=== PATIENT | male | born 1975 | race Hispanic/Latino ===

== ENCOUNTER 2021-10-04 20:35 | Emergency (ER) | payer SELFPAY ==
--- OUTSIDE RECORDS SUMMARY | 2021-10-04 20:37 | XMS REPORT | Continuity of Care Document ---
:1975 Author Organization [facility] t Address [address] [place] [address] Care Team Providers Name Role Phone Unavailable Unavailable Unavailable Payers Payer Name Policy Type Policy Number Effective Date Expiration Date S ource Problems This patient has no known problems. Allergies, Adverse Reactions, Alerts Allergy Allergy Status Severity Reaction(s) Onset Inactive Treating Comm ents Source Name Type Date Date Clinician No Known DA Active U 2018-08 [facility] All[facility]ie 0-17 [facility] 00:00: [facility] 00 are [facility] Medications This patient has no known medications. Procedures This patient has no known procedures. Results Test Description Test Time Test Comments Results Result Comments Source - XR CHEST 1 V 2019-05-23 Patient Name: 08:28:00 ALEX BURROUGHS Unit No: [id number] EXAMS: CPT: [id number] XR CHEST 1 V 16598 History: Chest pain CHEST 1 VIEW FINDINGS: The lung volumes are somewhat low. Mild subsegmental atelectasis is present in both lung bases. The heart size is magnified by the AP technique. The pulmonary vasculature is within normal limits. No pneumothorax or pleural effusion is present. No gross osseous abnormality is identified. IMPRESSION: 1. Mild bilateral lower lobe subsegmental atelectasis. at 0828 Reported and signed by: John Paul Jha MD CC: Sky Grant MD Technologist: Thuy Buckley Time: DAP (Gy m2): Air Kerma (mGy): Trscr Dt/Tm: 05/23/2019 (0828) by:[email or web address] Orig Print D/T: S: 05/23/2019 (0831) BATCH NO: N/A Name: ALEX BURROUGHS [facility] ED Phys: Sky Starks MD [address] : 1975 Age: 44 Sex: [place] [address] Loc: N.ERS Exam Date: 05/23/2019 Status: REG ER PH: FAX: PAGE 1 Signed Report TROPONIN-I 2019-05-23 07:18:00 Test Item Value Reference Range Interpretation Comme nts TROPONIN-I (test code = TROPI) <0.020 ng/mL 0.000-0.034 N BASIC METABOLIC [id number] 07:14:00 Test Item Value Reference Range Interpretation Comments SODIUM (test code 137 mmol/L 135-145 N = NA) POTASSIUM (test 3.9 mmol/L 3.6-5.0 N code = K) CHLORIDE (test 104 mmol/L 101-111 N code = CL) CARBON DIOXIDE 26 mmol/L 21-31 N (test code = CO2) GLUCOSE (test code 115 mg/dl 70-100 H = GLU) BLOOD UREA 9 mg/dl 6-20 N NITROGEN (test code = BUN) GLOMERULAR >=60 max >60 The estimated FILTRATION RATE estimate glomerular (test code = GFR) filtration rate is computed usingpatient ra ce, age (>18), sex, and serum creatinin e. If anyof the neede d data elements a re missing the Laboratory yareli ot compute an estimation of t he glomerular filtration rate . CREATININE (test 0.91 mg/dL 0.64-1.27 N code = CREAT) CALCIUM (test code 8.8 mg/dL 8.5-10.5 N = CA) CBC W/AUTO [id number] 07:10:00 Test Item Value Reference Range Interpretation Comments WHITE BLOOD CELL (test code = 6.7 x10 3/uL 3.2-11.5 N WBC) RED BLOOD CELL (test code = 4.97 x10(6)/m 4.20-5.70 N RBC) HEMOGLOBIN (test code = HGB) 14.6 g/dL 12.9-17.3 N HEMATOCRIT (test code = HCT) 43.8 % 38.7-51.0 N MEAN CELL VOLUME (test code = 88 fL 80-100 N MCV) MEAN CELL HGB (test code = MCH) 29.5 pg 26.7-33.3 N MEAN CELL HGB CONCENTRATION 33.5 g/dL 30.0-34.0 N (test code = MCHC) RED CELL DISTRIBUTION WIDTH 13.8 % 11.3-14.5 N (test code = RDW) PLATELET COUNT (test code = 221 x10 3/uL 130-408 N PLT) MEAN PLATELET VOLUME (test code 8.7 fl 6.4-10.5 N = MPV) NEUTROPHIL % (test code = NT%) 49.8 % 40.0-70.0 N LYMPHOCYTE % (test code = LY%) 30.7 % 20-40 N MONOCYTE % (test code = MO%) 10.8 % 1-10 H EOSINOPHIL % (test code = EO%) 7.1 % 1.0-5.0 H BASOPHIL % (test code = BA%) 1.6 % 0.0-1.0 H NEUTROPHIL # (test code = NT#) 3.4 x10 3/uL 1.6-7.2 N LYMPHOCYTE # (test code = LY#) 2.10 x10 3/uL 1.1-2.7 N MONOCYTE # (test code = MO#) 0.7 x10 3/uL 0.3-0.8 N EOSINOPHIL # (test code = EO#) 0.5 x10 3/uL 0.0-0.5 N BASOPHIL # (test code = BA#) 0.1 x10 3/uL 0.0-0.1 N
[2021-10-04] MEDS ORDERED: MORPHINE 4 MG/ML SYR ONE (21:25)
[2021-10-04] MEDS ORDERED: ONDANSETRON 4 MG/2 ML VIAL ONE (21:25)
[2021-10-04 21:31] LABS: Absolute Lymphocytes (CBC) 2.3 K/uL (0.7-4.9); Hematocrit 30.2 % (39.6-49.0); Lymphocytes % 22.8 % (15.3-44.8); MPV 7.6 fL (7.6-11.3); RBC Red Blood Cell Count 4.18 M/uL (4.33-5.43)
[2021-10-04 21:45] LABS: ALT/SGPT 17 U/L (12-78); AST/SGOT 15 U/L (15-37); Albumin 2.8 g/dL (3.4-5.0); Alkaline Phosphatase 83 U/L (45-117); BUN Blood Urea Nitrogen 11 mg/dL (7-18); Bicarbonate 25 mmol/L (21-32); Bilirubin Total 0.2 mg/dL (0.2-1.0); Glucose Level 93 mg/dL (74-106); Lipase 517 U/L (73-393); Potassium 3.3 mmol/L (3.5-5.1); Protein, Total 7.3 g/dL (6.4-8.2); Sodium Level 140 mmol/L (136-145)
[2021-10-04 21:46] LABS: Bilirubin Direct < 0.1 mg/dL (0-0.2)
[2021-10-04] MEDS ORDERED: METRONIDAZOLE 500mg IVPB 500 MG/100 ML BAG IV ONE (23:53)
[2021-10-04] MEDS ORDERED: METHYLPREDNISOLONE 125 MG INJ ONE (23:53)
[2021-10-04] MEDS ORDERED: CIPROFLOXACIN HCL 500 MG TAB ONE (23:53)
--- NOTE | 2021-10-05 00:44 | ER ---
Nurse's Notes [facility] Name: Wicho Weeks Age: 46 yrs Sex: Male : 1975 Arrival Date: 10/04/2021 Time: 20:39 Bed 15 Private MD: Diagnosis: Colitis Presentation: 10/04 21:00 Chief complaint: Patient states: States, he had surgery on butt abcess 2 months ago and tk1 has pain to stomach this week with bloody stools. Coronavirus screen: Vaccine status: Patient reports being unvaccinated. Client denies travel out of the [place] in the last 14 days. At this time, the client does not indicate any symptoms associated with coronavirus-19. Ebola Screen: Patient negative for fever greater than or equal to 101.5 degrees Fahrenheit, and additional compatible Ebola Virus Disease symptoms Patient denies exposure to infectious person. Patient denies travel to an Ebola-affected area in the 21 days before illness onset. Initial Sepsis Screen: Does the patient meet any 2 criteria? No. Patient's initial sepsis screen is negative. Does the patient have a suspected source of infection? No. Patient's initial sepsis screen is negative. Risk Assessment: Do you want to hurt yourself or someone else? Patient reports no desire to harm self or others. Onset of symptoms was September 27, 2021. 21:00 Method Of Arrival: Ambulatory tk1 21:00 Acuity: DRE 3 tk1 Triage Assessment: 21:28 General: Appears comfortable, obese, well groomed, well developed, well nourished, tk1 Behavior is cooperative, appropriate for age, anxious. Pain: Complains of pain in abdomen Pain does not radiate. Pain currently is 10 out of 10 on a pain scale. Quality of pain is described as crampy, Pain began gradually, Is continuous. GI: Abdomen is non-distended, Reports lower abdominal pain, bloody stool. Historical: - Allergies: 21: No Known Allergies; tk1 - Home Meds: 21:28 mesalamine 400 mg oral TbEC 2 tabs 3 times per day [Active]; tk1 - Immunization history:: Adult Immunizations up to date. - Social history:: Smoking status: Patient denies any tobacco usage or history of. Screenin/01 00:10 Abuse screen: Denies threats or abuse. Nutritional screening: No deficits noted. sf1 Tuberculosis screening: No symptoms or risk factors identified. Fall Risk None identified. Assessment: 00:10 GI: Reports lower abdominal pain, bloody stool. sf1 Vital Signs: 10/04 21:00 BP 145 / 94 LA Supine (auto/reg); Pulse 86 MON; Resp 18 S; Temp 99.3(O); Pulse Ox 98% tk1 on R/A; Weight 98.88 kg (R); Height 5 ft. 9 in. (175.26 cm) (R); Pain 10; 10/05 01:02 BP 136 / 84; Pulse 80; Resp 18; Pulse Ox 98% on R/A; sf1 10/04 21:00 Body Mass Index 32.19 (98.88 kg, 175.26 cm) tk1 ED Course: 10/04 20:39 Patient arrived in ED. ag3 20:53 Marvel Garcia NP is PHCP. pm1 20:53 Damien Garvey MD is Attending Physician. pm1 21:17 Inserted saline lock: 20 gauge in right antecubital area, using aseptic technique. vc1 Blood collected. 21:18 Basic Metabolic Panel Sent. vc1 21:19 CBC with Diff Sent. vc1 21:19 Hepatic Function Sent. vc1 21:19 Lipase Sent. vc1 21:26 Triage completed. tk1 21:28 Arm band placed on left wrist. tk1 22:19 CT Abd/Pelvis - IV Contrast Only In Process Unspecified. EDMS 23:47 Charmaine Hunt, RN is Primary Nurse. sf1 10/05 00:09 Inserted saline lock: 20 gauge in left antecubital area, using aseptic technique. IV sf1 discontinued, iv infiltrated, provider aware. 01:02 No provider procedures requiring assistance completed. IV discontinued, intact, sf1 bleeding controlled, No redness/swelling at site. Pressure dressing applied. Administered Medications: 10/04 21:26 Drug: morphine 4 mg Route: IVP; Site: right antecubital; vc1 21:26 Drug: Zofran (Ondansetron) 4 mg Route: IVP; Site: right antecubital; vc1 10/05 00:10 Drug: SOLU-Medrol (methylPrednisoLONE) 125 mg Route: IVP; Site: right antecubital; sf1 00:10 Drug: Flagyl (metroNIDAZOLE) 500 mg Volume: 100 ml; Route: IVPB; Rate: 200 ml/hr; sf1 Infused Over: 30 mins; Site: left antecubital; 00:10 Drug: Cipro (ciprofloxacin) 500 mg Route: PO; sf1 Outcome: 00:43 Discharge ordered by pm1 01:03 Patient left the ED. sf1 Signatures: Dispatcher [employer] EDMS Marvel Garcia, GRAPHICS PRODUCTION SPECIALIST GRAPHICS PRODUCTION SPECIALIST pm1 Angela Otero ag3 Elise Acosta tk1 Joselin Meier RN RN vc1 Charmaine Hunt RN RN sf1
--- NOTE | 2021-10-05 00:44 | EDPHYS ---
Physician Documentation [facility] Name: Wicho Weeks Age: 46 yrs Sex: Male : 1975 Arrival Date: 10/04/2021 Time: 20:39 Bed 15 Private MD: ED Physician Damien Garvey HPI: 10/04 21:59 This 46 yrs old Male presents to ER via Ambulatory with complaints of Post Surgical pm1 Bleeding, Bloody Stools, Abdominal Pain, Dizziness. 21:59 The patient presents with abdominal pain right lower quadrant. pm1 21:59 Onset: The symptoms/episode began/occurred 1 week. Associated signs and symptoms: pm1 Pertinent negatives: nausea, vomiting, and diarrhea, fever. The symptoms are described as crampy. Modifying factors: The symptoms are alleviated by bowel movement. Severity of pain: in the emergency department the pain is actually worse. The patient has been recently seen by a physician: the patient's primary care provider, Dr. Last, removed the patient's wound vacuum to left buttocks about 5 days ago. Patient reports buttocks abscess surgery about 4 months ago with 2 subsequent surgeries. First two surgeries with drains present and the last surgery with wound vacuum. Surgery was performed in [place]. Patient seen recently by Dr. Last who removed his wound vacuum about 5 days ago. Patient presenting today because he reports right lower quadrant pain that is relieved with bowel movement, bloody mucoid stool, and bleeding from his left buttocks where the incision and drainage was performed. Historical: - Allergies: 21:28 No Known Allergies; tk1 - Home Meds: 21:28 mesalamine 400 mg oral TbEC 2 tabs 3 times per day [Active]; tk1 - Immunization history:: Adult Immunizations up to date. - Social history:: Smoking status: Patient denies any tobacco usage or history of. ROS: 21:59 Constitutional: Negative for fever, chills, and weight loss, Cardiovascular: Negative pm1 for chest pain, palpitations, and edema, Respiratory: Negative for shortness of breath, cough, wheezing, and pleuritic chest pain. 21:59 Back: Negative for injury and pain, MS/Extremity: Negative for injury and deformity, Skin: Negative for injury, rash, and discoloration, Neuro: Negative for headache, weakness, numbness, tingling, and seizure. 21:59 Abdomen/GI: Positive for abdominal pain, of the right lower quadrant, Negative for nausea, vomiting, and diarrhea, constipation. 21:59 All other systems are negative. Exam: 21:59 Constitutional: This is a well developed, well nourished patient who is awake, alert, pm1 and in no acute distress. Head/Face: Normocephalic, atraumatic. 21:59 Back: No spinal tenderness. No costovertebral tenderness. Full range of motion. MS/ Extremity: Pulses equal, no cyanosis. Neurovascular intact. Full, normal range of motion. 21:59 Eyes: Exam is negative for acute changes, Extraocular movements: no acute changes, Conjunctiva: no acute changes, no injection. 21:59 Cardiovascular: Rate: normal, Rhythm: regular, Pulses: no pulse deficits are appreciated. 21:59 Respiratory: Exam negative for acute changes, respiratory distress, shortness of breath. 21:59 Abdomen/GI: Inspection: abdomen appears normal, Palpation: soft, in all quadrants, mild abdominal tenderness, in the right lower quadrant. 21:59 Skin: Appearance: left buttock - incision and drainage surgical site, without any drainage or bleeding. No fluctuance or cellulitis present. 21:59 Neuro: Exam negative for acute changes, Orientation: is normal, Mentation: is normal, Motor: is normal, moves all fours. Vital Signs: 21:00 BP 145 / 94 LA Supine (auto/reg); Pulse 86 MON; Resp 18 S; Temp 99.3(O); Pulse Ox 98% tk1 on R/A; Weight 98.88 kg (R); Height 5 ft. 9 in. (175.26 cm) (R); Pain 10/10; 03 01:02 BP 136 / 84; Pulse 80; Resp 18; Pulse Ox 98% on R/A; sf1 10/04 21:00 Body Mass Index 32.19 (98.88 kg, 175.26 cm) tk1 MDM: 10/04 21:01 Patient medically screened. pm1 21:59 Data interpreted: Pulse oximetry: on room air is 98 %. Interpretation: normal. pm1 03 00:42 Data reviewed: vital signs. pm1 00:43 Counseling: I had a detailed discussion with the patient and/or guardian regarding: the pm1 historical points, exam findings, and any diagnostic results supporting the discharge/admit diagnosis, lab results, radiology results, the need for outpatient follow up, a education reviewer, to return to the emergency department if symptoms worsen or persist or if there are any questions or concerns that arise at home. 10/04 21:08 Order name: Basic Metabolic Panel pm1 10/04 21:08 Order name: CBC with Diff; Complete Time: 21:59 pm1 10/04 21:08 Order name: CT Abd/Pelvis - IV Contrast Only pm1 10/04 21:08 Order name: Hepatic Function; Complete Time: 21:59 pm1 10/04 21:08 Order name: Lipase; Complete Time: 21:59 pm1 10/04 21:08 Order name: Basic Metabolic Panel; Complete Time: 21:59 EDMS 10/04 21:08 Order name: IV Saline Lock; Complete Time: 21:19 pm1 10/04 21:08 Order name: Labs collected and sent; Complete Time: 21:19 pm1 Administered Medications: 10/04 21:26 Drug: morphine 4 mg Route: IVP; Site: right antecubital; vc1 21:26 Drug: Zofran (Ondansetron) 4 mg Route: IVP; Site: right antecubital; vc1 10/05 00:10 Drug: SOLU-Medrol (methylPrednisoLONE) 125 mg Route: IVP; Site: right antecubital; sf1 00:10 Drug: Flagyl (metroNIDAZOLE) 500 mg Volume: 100 ml; Route: IVPB; Rate: 200 ml/hr; sf1 Infused Over: 30 mins; Site: left antecubital; 00:10 Drug: Cipro (ciprofloxacin) 500 mg Route: PO; sf1 Disposition: 01:20 Co-signature as Attending Physician, Damien Garvey MD I agree with the assessment and rn plan of care. Attestation: The patient's history, exam findings, diagnostics, and a summary of any interventions or procedures was reviewed in detail with Marvel Garcia NP. Disposition Summary: 10/05/21 00:43 Discharge Ordered Location: Home pm1 Problem: new pm1 Symptoms: have improved pm1 Condition: Stable pm1 Diagnosis - Colitis pm1 Followup: pm1 - With: Emergency Department - When: As needed - Reason: Worsening of condition Followup: pm1 - With: Private Physician - When: 2 - 3 days - Reason: Recheck today's complaints, Continuance of care, Re-evaluation by your physician Discharge Instructions: - Discharge Summary Sheet pm1 - Colitis pm1 Forms: - Medication Reconciliation Form pm1 - Thank You Letter pm1 - Antibiotic Education pm1 - Prescription Opioid Use pm1 Prescriptions: - Flagyl 500 mg Oral Tablet - take 1 tablet by ORAL route every 8 hours for 10 days; 30 tablet; Refills: 0, pm1 Product Selection Permitted - Prednisone 20 mg Oral Tablet - take 3 tablets by ORAL route once daily for 5 days; 15 tablet; Refills: 0, pm1 Product Selection Permitted - Cipro 500 mg Oral Tablet - take 1 tablet by ORAL route every 12 hours for 7 days; 14 tablet; Refills: 0, pm1 Product Selection Permitted - dicyclomine 20 mg Oral tablet - take 1 tablet by ORAL route every 6 hours As needed; 20 tablet; Refills: 0, pm1 Product Selection Permitted Signatures: Dispatcher [employer] Damien Godoy MD MD rn Marinas, Patrick, NP DOUGH MIXER pm1 Elise Acosta tk1 Joselin Meier RN RN vc1 Charmaine Hunt RN RN sf1
[2021-10-05 02:14] VITALS: TEMP 99.3; O2SAT 98
[2021-10-05 02:15] VITALS: BP 136/84
--- NOTE | 2021-10-05 14:46 | RAD REPORT ---
EXAM DESCRIPTION: CT - Abdomen Pelvis W Contrast - 10/05/2021 6:28 am CLINICAL HISTORY: 46 years, Male, ABD PAIN COMPARISON: None. TECHNIQUE: Contrast-enhanced images of the abdomen and pelvis were performed utilizing 5 mm slice th ickness at 5 mm interval reconstruction from the lung bases to the ischial tuberosities after the adm inistration IV contrast. In addition multiplanar reformats in the coronal and sagittal plane were obtained and reviewed. This exam was performed according to our departmental dose-optimization protocol, which includes auto mated exposure control, adjustment of the mA and/or kV according to patient size and/or use of iterat jaime reconstruction technique. FINDINGS: The lung bases demonstrate to be clear. The liver, gallbladder, pancreas, spleen and adrenal glands demonstrate to be unremarkable, no focal lesions are noted. The kidneys demonstrate normal uptake of contrast media. No evidence for nephrolithiasis and/or hydro nephrosis. Grossly the unopacified stomach and small bowel bowel demonstrate to be within normal limits. There is no evidence for bowel dilatation/or free air. The appendix is normal. There is questionable muc osal thickening of the left site colon/sigmoid colon on axial image 32/105-71/105 perhaps the possibi lity of the minimal bacterial colitis could be of consideration. The urinary bladder demonstrate to be unremarkable. The prostate gland is normal. The aorta demon strate to be normal. There is no retroperitoneal lymphadenopathy. There is no evidence for ascites/ or abnormal fluid collections. The rest of the soft tissue and bony structures are within normal limi ts. IMPRESSION: Questionable mucosal thickening of the left site colon/sigmoid colon perhaps the possibi lity of the minimal bacterial colitis could be of consideration. Electronically signed by: Rob Adrian MD 10/04/2021 10:40 PM [facility] Due to temporary technical issues with the PACS/Fluency reporting system, reports are being signed by the in house radiologists without review as a courtesy to insure prompt reporting. The interpreting radiologist is fully responsible for the content of the report.
== END 2021-10-05 01:03 | disposition home or self-care (01) ==
LOC: ER 20:35
DX: K52.9 Noninfective gastroenteritis and colitis, unspecified (principal)
CPT/HCPCS: 36415; 74177; 80048; 80076; 83690; 85025; 99284; J2405; J2930; Q9967

== ENCOUNTER 2022-02-22 11:53 | Emergency (ER) | payer SELFPAY ==
[2022-02-22] MEDS ORDERED: ACETAMINOPHEN 325 MG TABLET ONE (13:05)
[2022-02-22] MEDS ORDERED: MORPHINE 4 MG/ML SYR ONE (13:06)
[2022-02-22] MEDS ORDERED: NA CHLORIDE 0.9% 1,000 ML ONE (13:06)
[2022-02-22] MEDS ORDERED: ONDANSETRON 4 MG/2 ML VIAL ONE ×2 (13:06→15:55)
[2022-02-22] MEDS ORDERED: FAMOTIDINE 20 MG/2 ML VIAL IV ONE (13:06)
[2022-02-22 13:30] LABS: Absolute Lymphocytes (CBC) 1.5 K/uL (0.7-4.9); Hematocrit 32.5 % (39.6-49.0); Lymphocytes % 19.3 % (15.3-44.8); MCV 72.8 fL (80-100); MPV 8.6 fL (7.6-11.3); RBC Red Blood Cell Count 4.46 M/uL (4.33-5.43)
[2022-02-22 13:43] LABS: Albumin 2.5 g/dL (3.4-5.0); Bilirubin Total 0.5 mg/dL (0.2-1.0); Potassium 3.3 mmol/L (3.5-5.1); Protein, Total 6.8 g/dL (6.4-8.2)
[2022-02-22 13:45] LABS: Anisocytosis 3+; Blood Morphology Comment NOTED (NOT SEEN); Platelet Estimate ADEQ; White Blood Cell Scan OK (OK)
--- NOTE | 2022-02-22 14:16 | RAD REPORT ---
EXAM DESCRIPTION: CTAbdomen Pelvis W Contrast - 02/22/2022 1:57 pm CLINICAL HISTORY: abdominal pain, hematochezia COMPARISON: <Comparisons> TECHNIQUE: CT of the abdomen and pelvis was performed with IV contrast. All CT scans are performed using dose optimization technique as appropriate and may include automated exposure control or mA/KV adjustment according to patient size. FINDINGS: Lower chest: No acute abnormality. Liver: Subcentimeter low-density lesion right hepatic lobe is likely benign. Biliary: No biliary ductal dilatation. Stomach: No significant focal abnormality. Duodenum: No significant focal abnormality. Pancreas: No significant abnormality. Spleen: No significant abnormality. Adrenal: No suspicious lesions. Kidney/ureter: No hydronephrosis. No renal calculi. Retroperitoneum: No retroperitoneal adenopathy. Vascular: No aneurysm. Bowel: Moderate diffusely thickened: . No bowel obstruction is identified. Normal appendix. Peritoneum: No ascites or free air. Reactive lymph nodes in the mesocolon. Bladder: Grossly unremarkable. Reproductive: No adnexal masses. Bones: No acute fracture. Other: n/a IMPRESSION: Pancolitis with differential to include infections and inflammatory etiologies. No bowel obstruction or abscess.
[2022-02-22 14:31] LABS: Urine Blood Negative (Negative); Urine Glucose Negative (Negative); Urine Protein 1+ (Negative); Urine Specific Gravity 1.025 (1.005-1.030); Urine pH 5.5 (5.0-7.0)
[2022-02-22] MEDS ORDERED: CEFTRIAXONE 1000 MG/VIAL ONE (15:44)
[2022-02-22] MEDS ORDERED: HYDROMORPHONE HCL 1 MG/ML INJ ONE (15:54)
[2022-02-22] MEDS ORDERED: METHYLPREDNISOLONE 125 MG INJ ONE (16:18)
[2022-02-22] MEDS ORDERED: CIPROFLOXACIN 400mg IV 400 MG/200 ML BAG IV ONE (16:19)
[2022-02-22] MEDS ORDERED: METRONIDAZOLE 500mg IVPB 500 MG/100 ML BAG IV ONE (16:19)
[2022-02-22 16:23] LABS: Protime INR 1.43
--- NOTE | 2022-02-22 18:12 | EDPHYS ---
Physician Documentation [facility] Name: Wicho Weeks Age: 46 yrs Sex: Male : 1975 Arrival Date: 02/22/2022 Time: 11:55 Bed 14 Private MD: ED Physician Rony Begum HPI: 02/22 12:39 This 46 yrs old Male presents to ER via Wheelchair with complaints of Bloody jmm Stools, Near Syncope, Abdominal Pain. 12:39 The patient presents to the emergency department with nausea, diarrhea, abdominal pain. jmm Onset: The symptoms/episode began/occurred gradually. Possible causes: flare up of bowel problem, ulcerative colitis. The symptoms are aggravated by nothing. The symptoms are alleviated by nothing. This is a 46 year old male with a history of colitis that complains of blood diarrhea beginning approx 1 week ago. Patient states symptoms began 2 days after finishing a course of abx. Patient was recently hospitalized with a flare. Patient also complains of weakness. . Historical: - Allergies: 12:40 No Known Allergies; hb - Home Meds: 12:40 mesalamine 400 mg Oral TbEC 2 tabs 3 times per day [Active]; hb - PMHx: 12:40 colitis; hb - Immunization history:: Client reports having NOT received the Covid vaccine. - Social history:: Smoking status: Patient denies any tobacco usage or history of. ROS: 12:39 Constitutional: Negative for fever, chills, and weight loss, Cardiovascular: Negative jmm for chest pain, palpitations, and edema, Respiratory: Negative for shortness of breath, cough, wheezing, and pleuritic chest pain. 12:39 Abdomen/GI: Positive for abdominal pain, diarrhea, rectal bleeding. 12:39 All other systems are negative. Exam: 12:39 Constitutional: This is a well developed, well nourished patient who is awake, alert, jmm and in no acute distress. Head/Face: atraumatic. Eyes: EOMI, no conjunctival erythema appreciated ENT: Moist Mucus Membranes Neck: Trachea midline, Supple Chest/axilla: Normal chest wall appearance and motion. Cardiovascular: Regular rate and rhythm. No edema appreciated Respiratory: Normal respirations, no respiratory distress appreciated 12:39 Back: Normal ROM Skin: General appearance color normal MS/ Extremity: Moves all extremities, no obvious deformities appreciated, no edema noted to the lower extremities Neuro: Awake and alert Psych: Behavior is normal, Mood is normal, Patient is cooperative and pleasant 12:39 Abdomen/GI: Inspection: abdomen appears normal, Bowel sounds: normal, Palpation: soft, mild abdominal tenderness, in all quadrants. Vital Signs: 12:37 BP 123 / 89; Pulse 97; Resp 18; Temp 102(O); Pulse Ox 100% on R/A; Weight 90.72 kg (M); hb Height 5 ft. 9 in. (175.26 cm); Pain 10/10; 13:12 BP 148 / 95; Pulse 87; Resp 18; Pulse Ox 96% on R/A; Pain 7/10; ld1 13:36 BP 121 / 73; Pulse 76; Resp 18; Pulse Ox 100% on R/A; ld1 14:32 BP 121 / 69; Pulse 75; Resp 21; Pulse Ox 99% on R/A; ld1 15:34 BP 126 / 72; Pulse 71; Resp 20; Pulse Ox 99% on R/A; ld1 16:14 BP 116 / 69; Pulse 77; Resp 18; Pulse Ox 99% on R/A; ld1 17:41 BP 111 / 67; Pulse 81; Resp 18; Pulse Ox 94% on R/A; ld1 12:37 Body Mass Index 29.54 (90.72 kg, 175.26 cm) hb MDM: 12:39 Patient medically screened. [facility] 18:10 Data reviewed: vital signs, nurses notes. Counseling: I had a detailed discussion with [facility] the patient and/or guardian regarding: the historical points, exam findings, and any diagnostic results supporting the discharge/admit diagnosis, the need to transfer to another facility, [facility] does not immediately have the required specialist. Refusal of service: The patient/guardian displays adequate decision making capability and despite a detailed discussion of alternatives, benefits, risks, and consequences refuses: Admission to the hospital for further work-up and treatment. 02/22 12:40 Order name: CBC with Diff; Complete Time: 13:46 [facility] 02/22 12:40 Order name: CMP; Complete Time: 13:43 [facility] 02/22 12:40 Order name: Lipase; Complete Time: 13:43 [facility] 02/22 12:41 Order name: SARS-COV-2 RT PCR (Document "Date of Onset" if Symptomatic); Complete Time: [facility] 14:43 02/22 12:41 Order name: Influenza Screen (a \\T\\ B); Complete Time: 13:30 [facility] 02/22 12:42 Order name: Type And Screen; Complete Time: 15:22 [facility] 02/22 13:45 Order name: CBC Smear Scan; Complete Time: 13:46 [facility] 02/22 14:32 Order name: Urine Dipstick-Ancillary; Complete Time: 14:32 [facility] 02/22 14:52 Order name: ABO/RH no charge; Complete Time: 14:55 [facility] 02/22 15:27 Order name: Blood Culture Adult (2) [facility] 02/22 15:27 Order name: Lactate; Complete Time: 16:36 [facility] 02/22 15:27 Order name: Protime (+inr); Complete Time: 16:25 [facility] 02/22 15:27 Order name: Ptt, Activated; Complete Time: 16:25 [facility] 02/22 16:14 Order name: Glucose, Ancillary Testing; Complete Time: 16:15 [facility] 02/22 12:40 Order name: IV Saline Lock; Complete Time: 13:11 [facility] 02/22 12:40 Order name: Labs collected and sent; Complete Time: 13:11 [facility] 02/22 12:40 Order name: CT Abd/Pelvis - IV Contrast Only; Complete Time: 14:19 [facility] 02/22 16:16 Order name: Glucose, Ancillary Testing [facility] 02/22 16:47 Order name: Glucose, Ancillary Testing; Complete Time: 17:00 [facility] 02/22 12:41 Order name: Urine Dipstick-Ancillary (obtain specimen); Complete Time: 14:31 [facility] 02/22 15:27 Order name: Accucheck; Complete Time: 16:07 [facility] 02/22 15:27 Order name: Cardiac monitoring; Complete Time: 15:33 [facility] 02/22 15:27 Order name: EKG - Nurse/Tech; Complete Time: 16:36 [facility] 02/22 15:27 Order name: IV Saline Lock - Large Bore; Complete Time: 15:33 [facility] 02/22 15:27 Order name: O2 Per Protocol; Complete Time: 15:33 [facility] 02/22 15:27 Order name: O2 Sat Monitoring; Complete Time: 15:33 [facility] Administered Medications: 13:11 Drug: NS 0.9% 1000 ml Route: IV; Rate: 1 bolus; Site: right antecubital; ld1 13:11 Drug: Pepcid (famotidine) 20 mg Route: IVP; Site: right antecubital; ld1 13:11 Drug: Zofran (Ondansetron) 4 mg Route: IVP; Site: right antecubital; ld1 13:11 Drug: morphine 4 mg Route: IVP; Infused Over: 4 mins; Site: right antecubital; ld1 13:11 Drug: Acetaminophen 650 mg Route: PO; ld1 15:57 Drug: Rocephin (cefTRIAXone) 1 grams Route: IV; Rate: calculated rate; Site: right ld1 antecubital; 16:08 Follow up: Response: No adverse reaction eh3 15:57 Drug: Dilaudid (HYDROmorphone) 1 mg Route: IVP; Site: right antecubital; ld1 16:08 Follow up: Response: No adverse reaction; Marked relief of symptoms eh3 15:57 Drug: Zofran (Ondansetron) 4 mg Route: IVP; Site: right antecubital; ld1 16:08 Follow up: Response: No adverse reaction eh3 16:15 Drug: SOLU-Medrol (methylPrednisoLONE) 125 mg Route: IVP; Site: right antecubital; eh3 18:43 Follow up: Response: No adverse reaction eh3 16:30 Drug: Ciprofloxacin 400 mg Volume: 200 ml; Route: IVPB; Infused Over: 60 mins; Site: eh3 right antecubital; 18:43 Follow up: Response: No adverse reaction eh3 16:30 Drug: Flagyl (metroNIDAZOLE) 500 mg Volume: 100 ml; Route: IVPB; Rate: 200 ml/hr; eh3 Infused Over: 30 mins; Site: right antecubital; 18:42 Follow up: Response: No adverse reaction eh3 Disposition: 22:41 Co-signature as Attending Physician, Rony KIRKLAND was immediately available on-site ms3 in the Emergency Department for consultation in the care of the patient.. Disposition Summary: 02/22/22 18:11 Discharge Ordered Location: Home [facility] Condition: Stable jmm Diagnosis - Colitis jmm Followup: jmm - With: Thang Herrmann MD - When: 1 - 2 days - Reason: Recheck today's complaints, Continuance of care, Re-evaluation by your physician Discharge Instructions: - Discharge Summary Sheet [facility] - Ulcerative Colitis, Adult [facility] Forms: - Medication Reconciliation Form [facility] - Thank You Letter [facility] - Antibiotic Education [facility] - Prescription Opioid Use [facility] Prescriptions: - Flagyl 500 mg Oral Tablet - take 1 tablet by ORAL route every 6 hours for 10 days; 40 tablet; Refills: 0, [facility] Product Selection Permitted - Cipro 500 mg Oral Tablet - take 1 tablet by ORAL route every 12 hours for 7 days; 14 tablet; Refills: 0, [facility] Product Selection Permitted - Prednisone 20 mg Oral Tablet - take 3 tablets by ORAL route once daily for 5 days Please take 3 tabs by mouth [facility] daily for 3 days, then take 2 tabs by mouth daily for 3 days, then take 1 tab by mouth daily for 3 days, then take one half tab by mouth daily for 3 days; 20 tablet; Refills: 0, Product Selection Permitted Signatures: Dispatcher [employer] EDJhony Villalta PA PA m Lo Ferguson, RN RN Rony Frazier DO DO ms3 Irma Welch RN RN ld1 Kalina Cardoso 3
--- NOTE | 2022-02-22 18:12 | ER ---
Nurse's Notes [facility] Name: Wicho Weeks Age: 46 yrs Sex: Male : 1975 Arrival Date: 02/22/2022 Time: 11:55 Bed 14 Private MD: Diagnosis: Colitis Presentation: 02/22 12:37 Chief complaint: Bright red blood in stool and upper abdominal pain x 1 week. Hx of hb colitis and blood transfusions. Coronavirus screen: At this time, the client does not indicate any symptoms associated with coronavirus-19. Ebola Screen: No symptoms or risks identified at this time. Risk Assessment: Do you want to hurt yourself or someone else? Patient reports no desire to harm self or others. Onset of symptoms was February 15, 2022. 12:37 Method Of Arrival: Wheelchair hb 12:37 Acuity: DRE 2 hb 18:22 Initial Sepsis Screen: Does the patient meet any 2 criteria? Temp <36.0*C (96.8*F)) or eh3 > 38.3*C (100.9*F). HR > 90 bpm. Yes Does the patient have a suspected source of infection? No. Patient's initial sepsis screen is negative. Triage Assessment: 18:22 General: Appears in no apparent distress. uncomfortable, Behavior is calm, cooperative, eh3 appropriate for age. Historical: - Allergies: 12:40 No Known Allergies; hb - Home Meds: 12:40 mesalamine 400 mg Oral TbEC 2 tabs 3 times per day [Active]; hb - PMHx: 12:40 colitis; hb - Immunization history:: Client reports having NOT received the Covid vaccine. - Social history:: Smoking status: Patient denies any tobacco usage or history of. Screenin:12 Abuse screen: Denies threats or abuse. Denies injuries from another. Nutritional ld1 screening: No deficits noted. Tuberculosis screening: No symptoms or risk factors identified. Fall Risk None identified. Assessment: 13:12 General: Appears in no apparent distress. comfortable, Behavior is calm, cooperative, ld1 appropriate for age. Pain: Complains of pain in abdomen Pain does not radiate. Pain currently is 7 out of 10 on a pain scale. Quality of pain is described as sharp, shooting, throbbing, Pain began 1 day ago. Is continuous. Neuro: Level of Consciousness is awake, alert, obeys commands, Oriented to person, place, time, situation. Cardiovascular: Capillary refill < 3 seconds Patient's skin is warm and dry. Rhythm is sinus rhythm. Respiratory: Airway is patent Respiratory effort is even, unlabored. GI: Abdomen is round non-distended, Reports lower abdominal pain, upper abdominal pain, nausea. : No signs and/or symptoms were reported regarding the genitourinary system. EENT: No signs and/or symptoms were reported regarding the EENT system. Derm: No signs and/or symptoms reported regarding the dermatologic system. Musculoskeletal: No signs and/or symptoms reported regarding the musculoskeletal system. 14:33 Reassessment: Patient appears in no apparent distress at this time. Patient is alert, ld1 oriented x 3, equal unlabored respirations, skin warm/dry/pink. Patient states symptoms have improved. Vital Signs: 12:37 BP 123 / 89; Pulse 97; Resp 18; Temp 102(O); Pulse Ox 100% on R/A; Weight 90.72 kg (M); hb Height 5 ft. 9 in. (175.26 cm); Pain 10/10; 13:12 BP 148 / 95; Pulse 87; Resp 18; Pulse Ox 96% on R/A; Pain 7/10; ld1 13:36 BP 121 / 73; Pulse 76; Resp 18; Pulse Ox 100% on R/A; ld1 14:32 BP 121 / 69; Pulse 75; Resp 21; Pulse Ox 99% on R/A; ld1 15:34 BP 126 / 72; Pulse 71; Resp 20; Pulse Ox 99% on R/A; ld1 16:14 BP 116 / 69; Pulse 77; Resp 18; Pulse Ox 99% on R/A; ld1 17:41 BP 111 / 67; Pulse 81; Resp 18; Pulse Ox 94% on R/A; ld1 12:37 Body Mass Index 29.54 (90.72 kg, 175.26 cm) ED Course: 11:55 Patient arrived in ED. mr 11:57 Jhony Marquez PA is PHCP. m 11:57 Rony Begum DO is Attending Physician. jmm 12:40 Triage completed. hb 12:40 Arm band placed on. hb 12:56 Irma Welch, RN is Primary Nurse. ld1 12:56 SARS-COV-2 RT PCR (Document "Date of Onset" if Symptomatic) Sent. ld1 13:11 Influenza Screen (a \\T\\ B) Sent. ld1 13:12 Patient has correct armband on for positive identification. Placed in gown. Bed in low ld1 position. Call light in reach. Side rails up X2. engine monitor on. Pulse ox on. NIBP on. Door closed. Noise minimized. Warm blanket given. 13:12 No provider procedures requiring assistance completed. ld1 13:18 Inserted saline lock: 20 gauge in right antecubital area, using aseptic technique. zm Blood collected. 13:59 CT Abd/Pelvis - IV Contrast Only In Process Unspecified. EDMS 14:31 Type And Screen Sent. ld1 15:57 Blood Culture Adult (2) Sent. ld1 15:57 Lactate Sent. ld1 16:07 Protime (+inr) Sent. eh3 16:07 Ptt, Activated Sent. eh3 16:35 Glucose, Ancillary Testing Sent. eh3 18:11 Thang Herrmann MD is Referral Physician. m 18:42 IV discontinued, intact, bleeding controlled, No redness/swelling at site. Pressure eh3 dressing applied. Administered Medications: 13:11 Drug: NS 0.9% 1000 ml Route: IV; Rate: 1 bolus; Site: right antecubital; ld1 13:11 Drug: Pepcid (famotidine) 20 mg Route: IVP; Site: right antecubital; ld1 13:11 Drug: Zofran (Ondansetron) 4 mg Route: IVP; Site: right antecubital; ld1 13:11 Drug: morphine 4 mg Route: IVP; Infused Over: 4 mins; Site: right antecubital; ld1 13:11 Drug: Acetaminophen 650 mg Route: PO; ld1 15:57 Drug: Rocephin (cefTRIAXone) 1 grams Route: IV; Rate: calculated rate; Site: right ld1 antecubital; 16:08 Follow up: Response: No adverse reaction eh3 15:57 Drug: Dilaudid (HYDROmorphone) 1 mg Route: IVP; Site: right antecubital; ld1 16:08 Follow up: Response: No adverse reaction; Marked relief of symptoms eh3 15:57 Drug: Zofran (Ondansetron) 4 mg Route: IVP; Site: right antecubital; ld1 16:08 Follow up: Response: No adverse reaction eh3 16:15 Drug: SOLU-Medrol (methylPrednisoLONE) 125 mg Route: IVP; Site: right antecubital; eh3 18:43 Follow up: Response: No adverse reaction eh3 16:30 Drug: Ciprofloxacin 400 mg Volume: 200 ml; Route: IVPB; Infused Over: 60 mins; Site: eh3 right antecubital; 18:43 Follow up: Response: No adverse reaction eh3 16:30 Drug: Flagyl (metroNIDAZOLE) 500 mg Volume: 100 ml; Route: IVPB; Rate: 200 ml/hr; eh3 Infused Over: 30 mins; Site: right antecubital; 18:42 Follow up: Response: No adverse reaction eh3 Medication: 13:12 VIS not applicable for this client. ld1 Outcome: 18:11 Discharge ordered by . aide 18:41 Discharged to home ambulatory. eh3 18:41 Condition: stable 18:41 Discharge instructions given to patient, Instructed on discharge instructions, follow up and referral plans. medication usage, Demonstrated understanding of instructions, follow-up care, medications. 18:43 Patient left the ED. eh3 Signatures: Dispatcher [employer] EDMS Jhony Marquez PA PA jmm Rivera, Mary mr Baxter, Heather, RN RODOLFO Irma Welch RN RN ld1 Kalina Cardoso eh3 Soledad Weeks
[2022-02-22 18:50] VITALS: TEMP 102
[2022-02-22 19:02] VITALS: BP 111/67; O2SAT 94
--- NOTE | 2022-02-23 07:22 | EKG ---
Test Date: 2022-02-22 Test Time: 16:19:49 Yoga Instructor: JEISON MEASUREMENT RESULTS: Intervals: Rate: 75 OR: 134 QRSD: 84 QT: 390 QTc: 435 [place]: P: 37 OR: 134 QRS: 1 T: 13 INTERPRETIVE STATEMENTS: Normal sinus rhythm Inferior infarct, age undetermined Abnormal ECG No previous ECG available for comparison Electronically Signed On 02-23-22 07:20:34 CDT by Bernard Mcqueen
== END 2022-02-22 18:43 | disposition home or self-care (01) ==
LOC: ER 11:53
DX: K52.9 Noninfective gastroenteritis and colitis, unspecified (principal); K92.1 Melena; R55 Syncope and collapse; R11.0 Nausea; R19.7 Diarrhea, unspecified; R10.32 Left lower quadrant pain; R10.31 Right lower quadrant pain; R10.12 Left upper quadrant pain; R10.11 Right upper quadrant pain
CPT/HCPCS: 36415; 74177; 80053; 81003; 82947; 83605; 83690; 85025; 85610; 85730; 86850; 86900; 86901; 87040; 87804; 93005; J0744; J1170; J2405; J2930; J3490; J7030; Q9967; U0003

== ENCOUNTER 2022-03-07 20:30 | Emergency (ER) | payer SELFPAY ==
[2022-03-07 21:33] LABS: Absolute Lymphocytes (CBC) 1.4 K/uL (0.7-4.9); Hematocrit 29.5 % (39.6-49.0); Lymphocytes % 24.7 % (15.3-44.8); MCV 72.3 fL (80-100); MPV 7.3 fL (7.6-11.3); RBC Red Blood Cell Count 4.08 M/uL (4.33-5.43)
[2022-03-07 21:35] LABS: Protime INR 1.3
[2022-03-07 21:46] LABS: ALT/SGPT 23 U/L (12-78); AST/SGOT 13 U/L (15-37); Albumin 2.7 g/dL (3.4-5.0); Alkaline Phosphatase 65 U/L (45-117); BUN Blood Urea Nitrogen 9 mg/dL (7-18); Bicarbonate 24 mmol/L (21-32); Bilirubin Total 0.2 mg/dL (0.2-1.0); Glomerular Filtration Rate 108 ml/min (=/>90); Glucose Level 153 mg/dL (74-106); Lipase 88 U/L (73-393); Potassium 3.9 mmol/L (3.5-5.1); Protein, Total 7.1 g/dL (6.4-8.2); Sodium Level 134 mmol/L (136-145); Troponin High Sensitivity 3.7 pg/mL (<58.9)
[2022-03-07 21:47] LABS: Bilirubin Direct < 0.1 mg/dL (0-0.2)
--- NOTE | 2022-03-07 21:58 | RAD REPORT ---
EXAM DESCRIPTION: RAD - Chest Single View - 03/07/2022 9:31 pm CLINICAL HISTORY: abd pain Chest pain. COMPARISON: No comparisons FINDINGS: Portable technique limits examination quality. The lungs are grossly clear. The heart is normal in size. No displaced fractures. IMPRESSION: No acute intrathoracic process suspected.
[2022-03-07 22:04] LABS: Anisocytosis 3+; Blood Morphology Comment NOTED (NOT SEEN); Ovalocytes 2+; Platelet Estimate INCR; White Blood Cell Scan OK (OK)
[2022-03-07] MEDS ORDERED: NA CHLORIDE 0.9% 500 ML ONE (23:01)
[2022-03-07] MEDS ORDERED: HYDROMORPHONE HCL 1 MG/ML INJ ONE (23:01)
[2022-03-07] MEDS ORDERED: ONDANSETRON 4 MG/2 ML VIAL ONE (23:01)
[2022-03-08] MEDS ORDERED: metroNIDAZOLE 500 MG TABLET ONE (02:08)
[2022-03-08] MEDS ORDERED: CIPROFLOXACIN HCL 500 MG TAB ONE (02:09)
[2022-03-08] MEDS ORDERED: DIPHENHYDRAMINE 25 MG TAB/CAP ONE (02:09)
[2022-03-08 05:18] VITALS: TEMP 97.3
[2022-03-08 05:29] VITALS: BP 124/72; O2SAT 98
--- NOTE | 2022-03-08 08:48 | EKG ---
Test Date: 2022-03-08 Test Time: 00:32:47 Weather Forecaster: CORWIN MEASUREMENT RESULTS: Intervals: Rate: 58 RI: 132 QRSD: 88 QT: 458 QTc: 449 [place]: P: 41 RI: 132 QRS: -10 T: 30 INTERPRETIVE STATEMENTS: Sinus bradycardia Otherwise normal ECG Compared to ECG 02/22/2022 16:19:49 Sinus rhythm no longer present Myocardial infarct finding no longer present Electronically Signed On 03-08-22 08:46:34 CDT by Bernard Mcqueen
--- OUTSIDE RECORDS SUMMARY | 2022-03-08 11:18 | XMS REPORT | Continuity of Care Document ---
:1975 Author Organization [facility] t Address [address] [place] [address] Care Team Providers Name Role Phone ANA PEACOCK Attending Clinician Unavailable JOHN MARCANO Attending Clinician Unavailable GREGORIO FERRELL Attending Clinician Unavailable RJ ADDISON Attending Clinician Unavailable DAVINA ANDERSON Admitting Clinician Unavailable Payers Payer Name Policy Type Policy Number Effective Date Expiration Date S ource Problems This patient has no known problems. Allergies, Adverse Reactions, Alerts Allergy Allergy Status Severity Reaction(s) Onset Inactive Treating Comm ents Source Name Type Date Date Clinician No Known DA Active U 2018-08 [facility]ie 0-17 [place] [facility] 00:00: [facility] are [facility] Medications This patient has no known medications. Procedures This patient has no known procedures. Encounters Start End Encounter Admission Attending Care Care Encounter Source Date/Time Date/Time Type Type Clinicians Facility Department ID 2022-02-10 Outpatient [facility] [id number] -2 [place] 11:33:08 ANA [id number] [facility] 2022-01-25 [facility] [id number] -2 [place] 15:47:07 ANA [id number] [facility] 2022-01-30 2022-01-30 Emergency E ALEJANDRA MARCANO DANG [id number] 18:36:00 22:28:00 JOHN manuel 2022-01-29 2022-01-30 Emergency E ALEJANDRA FERRELL [address]ANG [id number] 21:25:00 00:58:00 GREGORIO manuel 2022-01-28 2022-01-28 Emergency E MARIAELENA [facility] [id number] 11:02:00 14:55:00 GREGORIO manuel 2022-01-24 2022-01-27 Inpatient E AZAEL [facility]ANG [facility] [id number] 23:12:00 15:10:00 OBIORA kaleb manuel Results Test Description Test Time Test Comments Results Result Comments Source - XR CHEST 1 V 2019-05-23 Patient Name: 08:28:00 ALEX BURROUGHS Unit No: [id number] EXAMS: CPT: [id number] XR CHEST 1 V [id number] History: Chest pain CHEST 1 VIEW FINDINGS: [...] m2): Air Kerma (mGy): Trscr Dt/Tm: 05/23/2019 (08) by:[email or web address] Orig Print D/T: S: 05/23/2019 (0831) BATCH NO: N/A Name: ALEX BURROUGHS [facility] Phys: Sky Starks MD [address] [facility] : 1975 Age: 44 Sex: [place] [id number] Loc: N.ERS Exam Date: 05/23/2019 Status: REG ER PH: FAX: PAGE 1 Signed Report TROPONIN-I 2019-05-23 07:18:00 Test Item Value Reference Range Interpretation Comme nts TROPONIN-I (test code = TROPI) <0.020 ng/mL 0.000-0.034 N BASIC METABOLIC [id number] 07:14:00 Test Item Value Reference Range Interpretation [...] mg/dL 8.5-10.5 N = CA) CBC W/AUTO [id number] 07:10:00 Test Item Value Reference Range Interpretation [...]
--- NOTE | 2022-03-08 13:20 | RAD REPORT ---
EXAM DESCRIPTION: CT - Abdomen Pelvis W Contrast - 03/08/2022 4:13 am CLINICAL HISTORY: 46 years Male GI bleed TECHNIQUE: Contiguous axial images obtained through the abdomen and pelvis during and after administ ration of intravenous contrast. Coronal and sagittal reformatted images provided. This CT exam was performed according to our departmental dose-optimization program, which includes on e or more of the following dose reduction techniques: automated exposure control, adjustment of the m A and/or kV according to patient size, and/or use of iterative reconstruction technique. COMPARISON: 02/22/2022 FINDINGS: Diffuse inflammation of the colon is still present however less pronounced than on the thad or exam. There is no bowel obstruction, pneumatosis, free intraperitoneal air, abscess, or ascites. N o evidence of active GI bleeding. The appendix is normal. Minimal bibasilar atelectasis. Subcentimeter focus of low attenuation in the right lobe of the liver too small to fully characterize but likely benign. The biliary tree, gallbladder, pancreas, spleen, adrenal glands, kidneys, urinary bladder, and osseou s structures are unremarkable. IMPRESSION: Pancolitis is still present however less pronounced than on the prior exam. No new findi ngs. Electronically signed by: Leyda Curiel MD 03/08/2022 12:30 AM CDT Due to temporary technical issues with the PACS/FlueNcy reporting system, reports are being signed by the in house radiologists without review as a courtesy to insure prompt reporting. The interpreting radiologist is fully responsible for the content of the report.
--- NOTE | 2022-03-09 09:58 | ER ---
Nurse's Notes [facility] Name: Wicho Weeks Age: 46 yrs Sex: Male : 1975 Arrival Date: 03/07/2022 Time: 20:34 Bed 4 Private MD: Diagnosis: Noninfective gastroenteritis and colitis, unspecified;Abdominal pain, Generalized Presentation: 03/07 20:57 Chief complaint: Patient states: is having a lot of abd pain and is having bright red iw blood in his stool, and I feel very weak, I had colitis last year and needed five bags of blood, I was here 2 weeks ago and was bleeding but now it started again four days ago , more so 2 days ago. Coronavirus screen: At this time, the client does not indicate any symptoms associated with coronavirus-19. Ebola Screen: Patient negative for fever greater than or equal to 101.5 degrees Fahrenheit, and additional compatible Ebola Virus Disease symptoms Patient denies exposure to infectious person. Patient denies travel to an Ebola-affected area in the 21 days before illness onset. No symptoms or risks identified at this time. Initial Sepsis Screen: Does the patient meet any 2 criteria? No. Patient's initial sepsis screen is negative. Does the patient have a suspected source of infection? No. Patient's initial sepsis screen is negative. Risk Assessment: Do you want to hurt yourself or someone else? Patient reports no desire to harm self or others. Onset of symptoms was March 02, 2022. 20:57 Method Of Arrival: Wheelchair iw 20:57 Acuity: DRE 2 iw Historical: - Allergies: 20:59 No Known Allergies; iw - PMHx: 20:59 Colitis; iw - Social history:: Smoking status: . Screenin:39 Abuse screen: Denies threats or abuse. Nutritional screening: No deficits noted. kl Tuberculosis screening: No symptoms or risk factors identified. Fall Risk None identified. Assessment: 22:36 General: Appears distressed, uncomfortable, well groomed, well developed, Behavior is kl calm, cooperative. Pain: Complains of pain in abdomen Pain currently is 10 out of 10 on a pain scale. Neuro: No deficits noted. Clemons Agitation-Sedation Scale (RASS): 0 - Alert and Calm. Cardiovascular: No deficits noted. Rhythm is sinus rhythm. Respiratory: No deficits noted. Airway is patent Trachea midline Respiratory effort is even, unlabored. GI: Bowel sounds present X 4 quads. Abdomen is tender to palpation X 4 quads. Reports diarrhea, bloody stool, epigastric pain, nausea, since 3 days eight bloody stools today. : No deficits noted. No signs and/or symptoms were reported regarding the genitourinary system. EENT: No deficits noted. No signs and/or symptoms were reported regarding the EENT system. Derm: No deficits noted. No signs and/or symptoms reported regarding the dermatologic system. Musculoskeletal: No deficits noted. No signs and/or symptoms reported regarding the musculoskeletal system. 03/08 01:08 Reassessment: Patient appears in no apparent distress at this time. Patient and/or kl family updated on plan of care and expected duration. Pain level reassessed. Patient states feeling better. Patient states symptoms have improved. Vital Signs: 03/07 20:57 BP 132 / 92; Pulse 94; Resp 16; Temp 97.2; Pulse Ox 100% on R/A; Weight 88.45 kg; iw Height 5 ft. 9 in. (175.26 cm); Pain 10/10; 22:37 BP 115 / 56; Pulse 67; Resp 18; Temp 97.3(O); Pulse Ox 100% on R/A; Pain 10/10; kl 03/08 01:08 BP 129 / 63; Pulse 65; Resp 18; Pulse Ox 99% on R/A; Pain 0/10; kl 02:11 BP 124 / 72; Pulse 68; Resp 18; Pulse Ox 98% on R/A; Pain 3/10; kl 03/07 20:57 Body Mass Index 28.80 (88.45 kg, 175.26 cm) iw ED Course: 03/07 20:34 Patient arrived in ED. jj6 20:59 Triage completed. iw 21:00 Arm band placed on. iw 21:24 Inserted saline lock: 20 gauge in left forearm, using aseptic technique. iw 21:33 XRAY Chest (1 view) In Process Unspecified. EDMS 22:31 Sky Vasquez MD is Attending Physician. kdr 03/08 00:00 CT Abd/Pelvis - IV Contrast Only In Process Unspecified. EDMS 02:11 Patient has correct armband on for positive identification. kl 02:11 No provider procedures requiring assistance completed. IV discontinued, intact, kl bleeding controlled, No redness/swelling at site. Pressure dressing applied. Administered Medications: 03/07 22:55 Drug: Zofran (Ondansetron) 4 mg Route: IVP; Site: left antecubital; kl 23:35 Follow up: Response: Marked relief of symptoms kl 23:35 Follow up: Response: Marked relief of symptoms kl 22:58 Drug: Dilaudid (HYDROmorphone) 1 mg Route: IVP; Site: left antecubital; kl 22:59 Drug: NS 0.9% 500 ml Route: IV; Rate: bolus; Site: left antecubital; kl 23:34 Follow up: IV Status: Completed infusion; IV Intake: 500ml kl 03/08 02:10 Drug: Cipro (ciprofloxacin) 500 mg Route: PO; kl 02:10 Drug: Flagyl (metroNIDAZOLE) 500 mg Route: PO; kl 02:10 Drug: Benadryl (diphenhydrAMINE) 25 mg Route: PO; kl Intake: 03/07 23:34 IV: 500ml; Total: 500ml. kl Outcome: 03/08 01:55 Discharge ordered by . kdr 02:11 Patient left the ED. Signatures: Dispatcher [employer] EDMS Belkys Miranda RN RN kl Rittger, Kevin, MD MD kdr Williams, Irene, RN RN iw Jeffries, Jennifer jj6
--- NOTE | 2022-03-09 09:58 | EDPHYS ---
Physician Documentation [facility] Name: Wicho Weeks Age: 46 yrs Sex: Male : 1975 Arrival Date: 03/07/2022 Time: 20:34 Bed 4 Private MD: ED Physician Sky Vasquez HPI: 03/07 23:38 This 46 yrs old Male presents to ER via Wheelchair with complaints of Bloody kdr Stools, Chest Pain, Abdominal Pain, Nausea. 23:39 Complains of bloody stools and abdominal pain. Patient has a history of both. He has kdr had several admissions for colitis. He also also been in [facility] Er for similar situations over the transfuse there according to the patient. He is nontoxic-appearing in the ED at this time. His vital signs appear stable. Though he states he is he is in significant pain his vital signs are good and normal and the patient does not appear toxic or in any acute distress. Onset: The symptoms/episode began/occurred gradually, 3 day(s) ago. Severity of symptoms: At their worst the symptoms were moderate severe today, last night, in the emergency department the symptoms have improved moderately. The patient has experienced similar episodes in the past, several times, multiple times, chronically. The patient has not recently seen a physician. Historical: - Allergies: 20:59 No Known Allergies; iw - PMHx: 20:59 Colitis; iw - Social history:: Smoking status: . ROS: 23:39 Constitutional: Negative for fever, chills, and weight loss, Eyes: Negative for injury, kdr pain, redness, and discharge, ENT: Negative for injury, pain, and discharge, Neck: Negative for injury, pain, and swelling, Cardiovascular: Negative for chest pain, palpitations, and edema, Respiratory: Negative for shortness of breath, cough, wheezing, and pleuritic chest pain, Back: Negative for injury and pain, : Negative for injury, bleeding, discharge, and swelling, MS/Extremity: Negative for injury and deformity, Skin: Negative for injury, rash, and discoloration, Neuro: Negative for headache, weakness, numbness, tingling, and seizure activity. Psych: Negative for depression, anxiety, suicide ideation, homicidal ideation, and hallucinations, Allergy/Immunology: Negative for hives, rash, and allergies, Endocrine: Negative for neck swelling, polydipsia, polyuria, polyphagia, and marked weight changes, Hematologic/Lymphatic: Negative for swollen nodes, abnormal bleeding, and unusual bruising. 23:39 Abdomen/GI: Positive for abdominal pain, nausea and vomiting, diarrhea, rectal bleeding. Exam: 23:39 Constitutional: This is a well developed, well nourished patient who is awake, alert, kdr and in no acute distress. Head/Face: Normocephalic, atraumatic. Eyes: Pupils equal round and reactive to light, extra-ocular motions intact. Lids and lashes normal. Conjunctiva and sclera are non-icteric and not injected. Cornea within normal limits. Periorbital areas with no swelling, redness, or edema. Neck: Trachea midline, no thyromegaly or masses palpated, and no cervical lymphadenopathy. Supple, full range of motion without nuchal rigidity, or vertebral point tenderness. No Meningismus. Chest/axilla: Normal chest wall appearance and motion. Nontender with no deformity. No lesions are appreciated. Cardiovascular: Regular rate and rhythm with a normal S1 and S2. No gallops, murmurs, or rubs. Normal PMI, no JVD. No pulse deficits. Respiratory: Lungs have equal breath sounds bilaterally, clear to auscultation and percussion. No rales, rhonchi or wheezes noted. No increased work of breathing, no retractions or nasal flaring. Back: No spinal tenderness. No costovertebral tenderness. Full range of motion. Skin: Warm, dry with normal turgor. Normal color with no rashes, no lesions, and no evidence of cellulitis. MS/ Extremity: Pulses equal, no cyanosis. Neurovascular intact. Full, normal range of motion. Neuro: Awake and alert, GCS 15, oriented to person, place, time, and situation. Cranial nerves II-XII grossly intact. Motor strength 5/5 in all extremities. Sensory grossly intact. Cerebellar exam normal. Normal gait. Psych: Awake, alert, with orientation to person, place and time. Behavior, mood, and affect are within normal limits. 23:39 Abdomen/GI: Inspection: abdomen appears normal, Bowel sounds: active, all quadrants, Palpation: soft, mild abdominal tenderness, in the abdomen diffusely, mass, is not appreciated, rebound tenderness, is not appreciated. Vital Signs: 20:57 BP 132 / 92; Pulse 94; Resp 16; Temp 97.2; Pulse Ox 100% on R/A; Weight 88.45 kg; iw Height 5 ft. 9 in. (175.26 cm); Pain 10/10; 22:37 BP 115 / 56; Pulse 67; Resp 18; Temp 97.3(O); Pulse Ox 100% on R/A; Pain 10/10; kl 03/08 01:08 BP 129 / 63; Pulse 65; Resp 18; Pulse Ox 99% on R/A; Pain 0/10; kl 02:11 BP 124 / 72; Pulse 68; Resp 18; Pulse Ox 98% on R/A; Pain 3/10; kl 03/07 20:57 Body Mass Index 28.80 (88.45 kg, 175.26 cm) iw MDM: 03/07 23:39 Data reviewed: vital signs, nurses notes, lab test result(s), radiologic studies. kdr Counseling: I had a detailed discussion with the patient and/or guardian regarding: the historical points, exam findings, and any diagnostic results supporting the discharge/admit diagnosis, lab results, radiology results. 03/08 01:55 Patient medically screened. kdr 03/07 21:01 Order name: Basic Metabolic Panel; Complete Time: 22:31 iw 03/07 21:01 Order name: CBC with Diff; Complete Time: 22:31 iw 03/07 21:01 Order name: LFT's; Complete Time: 22:31 iw 03/07 21:01 Order name: PT-INR; Complete Time: 22:31 iw 03/07 21:01 Order name: Troponin HS; Complete Time: 22:31 iw 03/07 21:01 Order name: Type And Screen; Complete Time: 22:31 iw 03/07 21:01 Order name: XRAY Chest (1 view); Complete Time: 22:31 iw 03/07 21:01 Order name: Lipase; Complete Time: 22:31 iw 03/07 21:40 Order name: CBC Smear Scan; Complete Time: 22:31 EDMS 03/07 22:46 Order name: CT Abd/Pelvis - IV Contrast Only kdr 03/07 21:01 Order name: EKG; Complete Time: 21:04 iw 03/07 21:01 Order name: Cardiac monitoring iw 03/07 21:01 Order name: EKG - Nurse/Tech iw 03/07 21:01 Order name: IV Saline Lock; Complete Time: 21:24 iw 03/07 21:01 Order name: Labs collected and sent; Complete Time: 21:24 iw 03/07 21:01 Order name: O2 Per Protocol iw 03/07 21:01 Order name: O2 Sat Monitoring iw Administered Medications: 03/07 22:55 Drug: Zofran (Ondansetron) 4 mg Route: IVP; Site: left antecubital; kl 23:35 Follow up: Response: Marked relief of symptoms kl 23:35 Follow up: Response: Marked relief of symptoms kl 22:58 Drug: Dilaudid (HYDROmorphone) 1 mg Route: IVP; Site: left antecubital; kl 22:59 Drug: NS 0.9% 500 ml Route: IV; Rate: bolus; Site: left antecubital; kl 23:34 Follow up: IV Status: Completed infusion; IV Intake: 500ml 03/08 02:10 Drug: Cipro (ciprofloxacin) 500 mg Route: PO; kl 02:10 Drug: Flagyl (metroNIDAZOLE) 500 mg Route: PO; kl 02:10 Drug: Benadryl (diphenhydrAMINE) 25 mg Route: PO; kl Disposition Summary: 03/08/22 01:55 Discharge Ordered Location: Home kdr Problem: new kdr Symptoms: have improved kdr Condition: Stable kdr Diagnosis - Noninfective gastroenteritis and colitis, unspecified kdr - Abdominal pain, Generalized kdr Followup: kdr - With: Private Physician - When: 2 - 3 days - Reason: If symptoms return, Further diagnostic work-up, Recheck today's complaints, Continuance of care, Re-evaluation by your physician Discharge Instructions: - Discharge Summary Sheet kdr Forms: - Medication Reconciliation Form kdr - Thank You Letter kdr - Antibiotic Education kdr Prescriptions: - Benadryl 25 mg Oral Capsule - take 1 capsule by ORAL route every 6 hours As needed; 10 tablet; Refills: 0, kdr Product Selection Permitted - Cipro 250 mg Oral Tablet - take 1 tablet by ORAL route every 12 hours for 10 days; 20 tablet; Refills: 0, kdr Product Selection Permitted - Flagyl 500 mg Oral Tablet - take 1 tablet by ORAL route every 6 hours for 10 days; 40 tablet; Refills: 0, kdr Product Selection Permitted - Zofran 4 mg Oral Tablet - take 1 tablet by ORAL route every 4-6 hours As needed; 12 tablet; Refills: 0, kdr Product Selection Permitted Signatures: Dispatcher [employer] Belkys Stokes, RN RN Sky Helm MD MD kdr Williams, Irene, RN RN iw
== END 2022-03-08 02:11 | disposition home or self-care (01) ==
LOC: ER 20:30
DX: K52.9 Noninfective gastroenteritis and colitis, unspecified (principal)
CPT/HCPCS: 36415; 71045; 74177; 80048; 80076; 83690; 84484; 85025; 85610; 86850; 86900; 86901; 93005; 96361; 96374; 96375; 99284; J1170; J2405; J7040; Q9967

== ENCOUNTER 2022-03-09 20:54 | Emergency (ER) | payer SELFPAY ==
--- OUTSIDE RECORDS SUMMARY | 2022-03-09 20:56 | XMS REPORT | Continuity of Care Document ---
:1975 Author Organization [facility] t Address [address] [place] [address] Care Team Providers Name Role Phone ANA PEACOCK Attending Clinician Unavailable JOHN MARCNAO Attending Clinician Unavailable GREGORIO FERRELL Attending Clinician [...] DA Active U 2018-08 [facility] 0-17 [facility] s 00:00: [facility] 00 are [facility] Medications This patient has no known medications. Procedures This patient has no known procedures. Encounters Start End Encounter Admission Attending Care Care Encounter Source Date/Time Date/Time Type Type Clinicians Facility Department ID 2022-02-10 Outpatient [facility] [id number] -2 [place] 11:33:08 ANA [id number] [facility] 2022-01-25 [facility] [id number] [place] 15:47:07 ANA [id number] [facility] 2022-01-30 2022-01-30 Emergency E ALEJANDRA MARCANO [facility]ANG [id number] 18:36:00 22:28:00 JOHN manuel 2022-01-29 2022-01-30 Emergency E ALEJANDRA FERRELL [facility] [id number] 21:25:00 00:58:00 GREGORIO manuel 2022-01-28 2022-01-28 Emergency E ALEJANDRA FERRELL [facility] [id number] 11:02:00 14:55:00 GREGORIO manuel 2022-01-24 2022-01-27 Inpatient E ALEJANDRA ADDISON [facility] [id number] 23:12:00 15:10:00 OBIORA kaleb manuel Results Test Description Test Time Test Comments Results Result Comments Source - XR CHEST 1 V 2019-05-23 Patient Name: 08:28:00 ALEX BURROUGHS Unit No: [id number] EXAMS: CPT: [id number] XR CHEST 1 V 52279 History: Chest pain CHEST 1 VIEW FINDINGS: [...] m2): Air Kerma (mGy): Trscr Dt/Tm: 05/23/2019 (827) by:[email or web address] Orig Print D/T: S: 05/23/2019 (0831) BATCH NO: N/A Name: ALEX BURROUGHS [facility] ED Phys: Sky Starks MD [address] : 1975 Age: 44 Sex: [place] [address] Loc: N.ERS Exam Date: 05/23/2019 Status: REG ER PH: FAX: PAGE 1 Signed Report TROPONIN-I 2019-05-23 07:18:00 Test Item Value Reference Range Interpretation Comme nts TROPONIN-I (test code = TROPI) <0.020 ng/mL 0.000-0.034 N BASIC METABOLIC [id number] 07:14:00 Test Item Value Reference Range Interpretation [...] mg/dL 8.5-10.5 N = CA) CBC W/AUTO [id number] 07:10:00 Test Item Value Reference Range Interpretation [...]
[2022-03-09] MEDS ORDERED: PANTOPRAZOLE 40 MG INJ ONE (22:09)
[2022-03-09] MEDS ORDERED: MORPHINE 4 MG/ML SYR ONE (22:09)
[2022-03-09] MEDS ORDERED: ONDANSETRON 4 MG/2 ML VIAL ONE ×2 (22:09→22:54)
[2022-03-09] MEDS ORDERED: NA CHLORIDE 0.9% 1,000 ML ONE (22:09)
[2022-03-09] MEDS ORDERED: NA CHLORIDE 0.9% 50 ML ONE (22:53)
[2022-03-09] MEDS ORDERED: HYDROMORPHONE HCL 1 MG/ML INJ ONE ×2 (22:53→23:36)
[2022-03-09 23:10] LABS: Hematocrit 30.2 % (39.6-49.0); Lymphocytes % 22.7 % (15.3-44.8); MCV 72.8 fL (80-100); MPV 7.4 fL (7.6-11.3); RBC Red Blood Cell Count 4.15 M/uL (4.33-5.43)
[2022-03-09 23:23] LABS: Albumin 2.4 g/dL (3.4-5.0); Bilirubin Total 0.2 mg/dL (0.2-1.0); Potassium 3.1 mmol/L (3.5-5.1); Protein, Total 6.4 g/dL (6.4-8.2)
--- NOTE | 2022-03-09 23:45 | EDPHYS ---
Physician Documentation [facility] Name: Wicho Weeks Age: 46 yrs Sex: Male : 1975 Arrival Date: 03/09/2022 Time: 20:55 Bed 3 Private MD: ED Physician Damien Garvey HPI: 03/10 00:01 This 46 yrs old Male presents to ER via Ambulatory with complaints of kb Abdominal Pain, Bloody Stools. 00:01 The patient presents with abdominal pain that is diffuse. The patient has been recently kb seen at the [facility] Emergency Department, this week. 00:03 Onset: The symptoms/episode began/occurred 5 day(s) ago. The symptoms do not radiate. kb Associated signs and symptoms: Pertinent positives: blood in stools, diarrhea. The symptoms are described as constant. Modifying factors: The symptoms are alleviated by nothing, the symptoms are aggravated by nothing. Severity of pain: At its worst the pain was moderate in the emergency department the pain is unchanged. The patient has experienced similar episodes in the past, chronically. Pt reports history of colitis with bloody diarrhea. STates he has had this several times in the past and had to be admitted with blood transfusions. Was seen here 2 days ago and discharged home with antibiotics. STates he came back because he wasn't given anything for pain or diarrhea. States he feels like he has lost too much blood. . Historical: - Allergies: 03/09 21:03 No Known Allergies; tw5 - Home Meds: 21:03 mesalamine 400 mg Oral TbEC 2 tabs 3 times per day [Active]; tw5 - PMHx: 21:03 Colitis; tw5 - Immunization history:: Flu vaccine is not up to date. - Social history:: Smoking status: Patient denies any tobacco usage or history of. ROS: 23:53 Constitutional: Negative for fever, chills, and weight loss. kb 23:53 Abdomen/GI: Positive for abdominal pain, rectal bleeding. 23:53 All other systems are negative. Exam: 03/10 00:01 Constitutional: This is a well developed, well nourished patient who is awake, alert, kb and in no acute distress. Head/Face: Normocephalic, atraumatic. ENT: Moist Mucous membranes Cardiovascular: Regular rate and rhythm with a normal S1 and S2. No gallops, murmurs, or rubs. No pulse deficits. Respiratory: Respirations even and unlabored. No increased work of breathing. Talking in full sentences Skin: Warm, dry with normal turgor. Normal color. MS/ Extremity: Pulses equal, no cyanosis. Neurovascular intact. Full, normal range of motion. Neuro: Awake and alert, GCS 15, oriented to person, place, time, and situation. Moves all extremities. Normal gait. Psych: Awake, alert, with orientation to person, place and time. Behavior, mood, and affect are within normal limits. Abdomen/GI: Inspection: abdomen appears normal, Bowel sounds: normal, in all quadrants, Palpation: soft, in all quadrants, mild abdominal tenderness, in all quadrants. Vital Signs: 03/09 21:01 BP 138 / 95; Pulse 91; Resp 18; Temp 98.1; Pulse Ox 100% on R/A; Weight 88.45 kg; tw5 Height 5 ft. 9 in. (175.26 cm); Pain 10/10; 23:18 BP 121 / 80; Pulse Ox 98% ; kl 03/10 00:03 BP 130 / 72; Pulse 74; Resp 18; Pulse Ox 98% ; vc1 03/09 21:01 Body Mass Index 28.80 (88.45 kg, 175.26 cm) tw5 MDM: 03/09 21:00 Patient medically screened. kb 23:52 Data reviewed: vital signs, nurses notes. Data interpreted: Pulse oximetry: on room air kb is 98 %. Interpretation: normal. Counseling: I had a detailed discussion with the patient and/or guardian regarding: the historical points, exam findings, and any diagnostic results supporting the discharge/admit diagnosis, lab results, the need for outpatient follow up, a accounting specialist, to return to the emergency department if symptoms worsen or persist or if there are any questions or concerns that arise at home. ED course: Discussed case with Dr Garvey. Pt had CT scan 2 days ago of abd showing no acute findings. Pt educated to follow up with GI. . 03/09 21:04 Order name: CBC with Diff kb 03/09 21:04 Order name: CMP; Complete Time: 23:28 kb 03/09 21:04 Order name: Lipase; Complete Time: 23:28 kb 03/09 21: Order name: Type And Screen kb 03/09 21:28 Order name: Type and Screen; Complete Time: 00:08 EDMS 03/09 23:15 Order name: CBC Smear Scan EDMS 03/09 21:04 Order name: IV Saline Lock; Complete Time: 23:40 kb 03/09 21:04 Order name: Labs collected and sent; Complete Time: 23:40 kb Administered Medications: 22:30 Drug: NS 0.9% 1000 ml Route: IV; Rate: 1 bolus; Site: right antecubital; vc1 23:30 Follow up: IV Status: Completed infusion; IV Intake: 1000ml vc1 22:33 Not Given (Patient Refused): morphine 4 mg IVP once over 4 mins kb 22:57 Drug: Zofran (Ondansetron) 4 mg Route: IVP; Site: left antecubital; 03/10 00:05 Follow up: Response: No adverse reaction; Marked relief of symptoms; Nausea is decreasedvc1 03/09 22:57 Drug: ProTONIX (pantoprazole) 40 mg Route: IVP; Site: left antecubital; 03/10 00:05 Follow up: Response: No adverse reaction vc1 03/09 22:57 Drug: Dilaudid (HYDROmorphone) 1 mg Route: IVP; Site: left antecubital; kl 23:27 Follow up: Response: No adverse reaction; Pain is unchanged, physician notified vc1 03/10 00:05 Follow up: Response: RASS: Alert and Calm (0) vc1 03/09 23:32 Drug: Dilaudid (HYDROmorphone) 1 mg Route: IVP; Site: left antecubital; 03/10 00:04 Follow up: Response: No adverse reaction; Marked relief of symptoms; RASS: Alert and vc1 Calm (0) 03/09 23:40 Drug: Potassium Chloride 40 mEq Route: PO; vc1 03/10 00:04 Follow up: Response: No adverse reaction vc1 03/09 23:40 Drug: LoMOTIL (diphenoxylate-atropine) 1 tabs Route: PO; vc1 03/10 00:04 Follow up: Response: No adverse reaction vc1 Disposition: 00:20 Co-signature as Attending Physician, Damien Garvey MD. rn Disposition Summary: 03/09/22 23:44 Discharge Ordered Location: Home kb Condition: Stable kb Diagnosis - Noninfective gastroenteritis and colitis, unspecified kb Followup: kb - With: Emergency Department - When: As needed - Reason: Worsening of condition Followup: kb - With: Private Physician - When: 2 - 3 days - Reason: Recheck today's complaints, Continuance of care, Re-evaluation by your physician Discharge Instructions: - Discharge Summary Sheet kb - Food Choices to Help Relieve Diarrhea, Adult kb - Gastrointestinal Bleeding kb - Viral Gastroenteritis, Adult kb Forms: - Medication Reconciliation Form kb - Thank You Letter kb - Antibiotic Education kb - Prescription Opioid Use kb Prescriptions: - Tramadol 50 mg Oral Tablet - take 1 tablet by ORAL route every 8 hours as needed; 12 tablet; Refills: 0, kb Product Selection Permitted Signatures: Dispatcher [employer] EDMS Fide Yoo, RAMIN BILLINGS-Belkys Quinteros, RN RN Damien Shoemaker MD MD rn Wood, Tiffany tw5 Joselin Meier RN RN vc1
--- NOTE | 2022-03-09 23:45 | ER ---
Nurse's Notes [facility] Name: Wicho Weeks Age: 46 yrs Sex: Male : 1975 Arrival Date: 03/09/2022 Time: 20:55 Bed 3 Private MD: Diagnosis: Noninfective gastroenteritis and colitis, unspecified Presentation: 03/09 21:01 Chief complaint: Patient states: "I am having a lot of pain and diarrhea with a lot of tw5 blood. I feel like fainting I am going to bathroom so much.". Coronavirus screen: Vaccine status: Patient reports being unvaccinated. Coronavirus screen: Vaccine status:. Ebola Screen: Patient negative for fever greater than or equal to 101.5 degrees Fahrenheit, and additional compatible Ebola Virus Disease symptoms Patient denies exposure to infectious person. Patient denies travel to an Ebola-affected area in the 21 days before illness onset. Initial Sepsis Screen: Does the patient meet any 2 criteria? No. Patient's initial sepsis screen is negative. Does the patient have a suspected source of infection? No. Patient's initial sepsis screen is negative. Risk Assessment: Do you want to hurt yourself or someone else? Patient reports no desire to harm self or others. Onset of symptoms is unknown. 21:01 Method Of Arrival: Ambulatory tw5 21:01 Acuity: DRE 3 tw5 Triage Assessment: 21:03 General: Appears in no apparent distress. uncomfortable, Behavior is calm, cooperative, tw5 appropriate for age. Pain: Complains of pain in abdomen Pain currently is 10 out of 10 on a pain scale. GI: Reports diarrhea, Pain is 10 out of 10 on a pain scale. 21:03 GI: Reports bloody stool. tw5 Historical: - Allergies: 21:03 No Known Allergies; tw5 - Home Meds: 21:03 mesalamine 400 mg Oral TbEC 2 tabs 3 times per day [Active]; tw5 - PMHx: 21:03 Colitis; tw5 - Immunization history:: Flu vaccine is not up to date. - Social history:: Smoking status: Patient denies any tobacco usage or history of. Screenin/04 00:06 Abuse screen: Denies threats or abuse. Nutritional screening: No deficits noted. vc1 Tuberculosis screening: No symptoms or risk factors identified. Fall Risk None identified. Assessment: 03/09 22:00 Reassessment: See triage assessment. vc1 22:00 GI: Bowel sounds present X 4 quads. Abd is soft Abdomen is tender to palpation. vc1 23:00 Reassessment: No changes from previously documented assessment. Patient and/or family vc1 updated on plan of care and expected duration. Pain level reassessed. 03/10 00:00 Reassessment: Patient and/or family updated on plan of care and expected duration. Pain vc1 level reassessed. Patient is alert, oriented x 3, equal unlabored respirations, skin warm/dry/pink. Patient states symptoms have improved. Vital Signs: 03/09 21:01 BP 138 / 95; Pulse 91; Resp 18; Temp 98.1; Pulse Ox 100% on R/A; Weight 88.45 kg; tw5 Height 5 ft. 9 in. (175.26 cm); Pain 10/10; 23:18 BP 121 / 80; Pulse Ox 98% ; kl 03/10 00:03 BP 130 / 72; Pulse 74; Resp 18; Pulse Ox 98% ; vc1 03/09 21:01 Body Mass Index 28.80 (88.45 kg, 175.26 cm) tw5 ED Course: 03/09 20:55 Patient arrived in ED. ja2 20:59 Fide Yoo FNP-C is [facility]. kb 20:59 Damien Garvey MD is Attending Physician. kb 21:03 Triage completed. tw5 21:03 Arm band placed on. tw5 22:00 Patient has correct armband on for positive identification. Bed in low position. Pulse vc1 ox on. NIBP on. 22:40 Initial lab(s) drawn, by ct, sent to lab. T\\T\\S collected, blood band applied to patient. bb Inserted saline lock: 18 gauge in left antecubital area, using aseptic technique. Blood collected. 23:41 Joselin Meier, RODOLFO is Primary Nurse. vc1 03/10 00:06 No provider procedures requiring assistance completed. vc1 00:11 IV discontinued, intact, bleeding controlled, No redness/swelling at site. Pressure vc1 dressing applied. Administered Medications: 03/09 22:30 Drug: NS 0.9% 1000 ml Route: IV; Rate: 1 bolus; Site: right antecubital; vc1 23:30 Follow up: IV Status: Completed infusion; IV Intake: 1000ml vc1 22:33 Not Given (Patient Refused): morphine 4 mg IVP once over 4 mins 22:57 Drug: Zofran (Ondansetron) 4 mg Route: IVP; Site: left antecubital; 03/10 00:05 Follow up: Response: No adverse reaction; Marked relief of symptoms; Nausea is decreasedvc1 03/09 22:57 Drug: ProTONIX (pantoprazole) 40 mg Route: IVP; Site: left antecubital; 03/10 00:05 Follow up: Response: No adverse reaction vc1 03/09 22:57 Drug: Dilaudid (HYDROmorphone) 1 mg Route: IVP; Site: left antecubital; 23:27 Follow up: Response: No adverse reaction; Pain is unchanged, physician notified vc1 03/10 00:05 Follow up: Response: RASS: Alert and Calm (0) vc1 03/09 23:32 Drug: Dilaudid (HYDROmorphone) 1 mg Route: IVP; Site: left antecubital; 03/10 00:04 Follow up: Response: No adverse reaction; Marked relief of symptoms; RASS: Alert and vc1 Calm (0) 03/09 23:40 Drug: Potassium Chloride 40 mEq Route: PO; vc1 03/10 00:04 Follow up: Response: No adverse reaction vc1 03/09 23:40 Drug: LoMOTIL (diphenoxylate-atropine) 1 tabs Route: PO; vc1 03/10 00:04 Follow up: Response: No adverse reaction vc1 Medication: 00:07 VIS not applicable for this client. vc1 Intake: 03/09 23:30 IV: 1000ml; Total: 1000ml. vc1 Outcome: 23:44 Discharge ordered by . sena 03/10 00:10 Discharged to home ambulatory. vc1 Condition: good Discharge instructions given to patient, Instructed on discharge instructions, follow up and referral plans. medication usage, Demonstrated understanding of instructions, follow-up care, medications, Prescriptions given X 1. 00:11 Patient left the ED. vc1 Signatures: Fide Yoo, RAMIN BILLINGS-Belkys Quinteros RN Mariaelena Hitchcock RN RN Yanet Heard Reny Gold tw5 Calcote, Joselin, RODOLFO RN vc1
[2022-03-09] MEDS ORDERED: POTASSIUM CL SA 10 MEQ TAB PO ONE (23:46)
[2022-03-09] MEDS ORDERED: DIPHENOX/ATROP SULF 1 TAB PO ONE (23:46)
[2022-03-10 00:27] LABS: Anisocytosis 3+; Blood Morphology Comment NOTED (NOT SEEN); Hypochromasia 2+; Ovalocytes 3+; Platelet Estimate ADEQ; White Blood Cell Scan OK (OK)
[2022-03-10 01:21] VITALS: TEMP 98.1
[2022-03-10 01:24] VITALS: O2SAT 98
[2022-03-10 01:34] VITALS: BP 130/72
== END 2022-03-10 00:11 | disposition home or self-care (01) ==
LOC: ER 20:54
DX: K52.9 Noninfective gastroenteritis and colitis, unspecified (principal)
CPT/HCPCS: 36415; 80053; 83690; 85025; 86850; 86900; 86901; 96361; 96374; 96375; 99284; C9113; J1170; J2405; J7030

== ENCOUNTER 2022-03-14 20:27 | Emergency (ER) | payer SELFPAY ==
--- OUTSIDE RECORDS SUMMARY | 2022-03-14 20:30 | XMS REPORT | Continuity of Care Document ---
:1975 Author Organization [facility] t Address [address] [place] [address] Care Team Providers Name Role Phone ANA [...] DA Active U 2018-08 [facility]ie 0-17 [facility] 00:00: [facility] [address] [facility] Medications This patient has no known medications. Procedures This patient has no known procedures. Encounters Start End Encounter Admission Attending Care Care Encounter Source Date/Time Date/Time Type Type Clinicians Facility Department ID 2022-02-10 [facility] [id number] [place] 11:33:08 ANA [id number] [facility] 2022-01-25 [facility] [id number] [place] 15:47:07 ANA [id number] [facility] 2022-01-30 2022-01-30 Emergency E ALEJANDRA MARCANO [facility] [id number] 18:36:00 22:28:00 JOHN manuel 2022-01-29 2022-01-30 Emergency E ALEJANDRA FERRELL [facility] [id number] 21:25:00 00:58:00 GREGORIO manuel 2022-01-28 2022-01-28 Emergency E MARIAELENA DANG [facility] [address] 11:02:00 14:55:00 GREGORIO manuel 2022-01-24 2022-01-27 Inpatient E AZAEL DANG [facility] [address] 23:12:00 15:10:00 OBIORA kaleb manuel Results Test Description Test Time Test Comments Results Result Comments Source - XR CHEST 1 V 2019-05-23 Patient Name: 08:28:00 ALEX BURROUGHS Unit No: [id number] EXAMS: CPT: [id number] XR CHEST 1 V 59179 History: Chest pain CHEST 1 VIEW FINDINGS: [...] (0831) BATCH NO: N/A Name: ALEX BURROUGHS [facility] ED Phys: Sky Starks MD [address] [facility] : 1975 Age: 44 Sex: [place] [address] Loc: N.ERS Exam Date: 05/23/2019 Status: REG ER PH: FAX: PAGE 1 Signed Report TROPONIN-I 2019-05-23 07:18:00 Test Item Value Reference Range Interpretation Comme nts TROPONIN-I (test code = TROPI) <0.020 ng/mL 0.000-0.034 N BASIC METABOLIC [id number] 07:14:00 Test Item Value Reference Range Interpretation [...] mg/dL 8.5-10.5 N = CA) CBC W/AUTO [id number] 07:10:00 Test Item Value Reference Range Interpretation [...]
[2022-03-14] MEDS ORDERED: HYDROMORPHONE HCL 1 MG/ML INJ ONE (21:38)
[2022-03-14] MEDS ORDERED: ONDANSETRON 4 MG/2 ML VIAL ONE (21:38)
[2022-03-14] MEDS ORDERED: NA CHLORIDE 0.9% 1,000 ML ONE (21:39)
[2022-03-14 21:49] LABS: Absolute Lymphocytes (CBC) 2.2 K/uL (0.7-4.9); Hematocrit 29.8 % (39.6-49.0); Lymphocytes % 22.9 % (15.3-44.8); MCV 71.3 fL (80-100); MPV 7.2 fL (7.6-11.3); RBC Red Blood Cell Count 4.18 M/uL (4.33-5.43)
[2022-03-14 21:52] LABS: Albumin 2.5 g/dL (3.4-5.0); Bilirubin Total 0.2 mg/dL (0.2-1.0); Potassium 3.6 mmol/L (3.5-5.1); Protein, Total 6.9 g/dL (6.4-8.2)
[2022-03-14 22:05] LABS: Anisocytosis 3+; Blood Morphology Comment NOTED (NOT SEEN); Platelet Estimate INCR; White Blood Cell Scan OK (OK)
--- NOTE | 2022-03-14 23:31 | EDPHYS ---
Physician Documentation [facility] Name: Wicho Weeks Age: 46 yrs Sex: Male : 1975 Arrival Date: 03/14/2022 Time: 20:44 Bed Treatment Private MD: ED Physician Cecelia Fisher HPI: 03/14 21:21 This 46 yrs old Male presents to ER via Ambulatory with complaints of pm1 Abdominal Cramping, Nausea/Vomiting, Bloody Stools. 21:21 The patient presents with abdominal pain that is diffuse. pm1 21:21 Onset: The symptoms/episode began/occurred 2 week(s) ago. The symptoms do not radiate. pm1 Associated signs and symptoms: Pertinent positives: nausea and vomiting, Pertinent negatives: chest pain, dysuria, fever, shortness of breath. The symptoms are described as crampy. Modifying factors: The symptoms are alleviated by nothing, pain medications he was prescribed from the prior visit 4 days ago are not effective. the symptoms are aggravated by nothing. Severity of pain: in the emergency department the pain is unchanged continued rectal bleeding for the past 1 month. Patient with a history of ulcerative colitis. The patient has experienced similar episodes in the past, several times. The patient has been recently seen at the [facility] Emergency Department, this week, last week, for similar complaints labs were performed, CT scan was performed, was given a prescription for antibiotics, was given a prescription for pain medications. 46-year-old gentleman presents to the ER with complaints of abdominal cramping, nausea and vomiting, bloody stools. Patient with history of ulcerative colitis. Patient with abdominal pain for the past 2 weeks and mucoid bloody diarrhea for the past month. Patient was seen in the ER on 03/07/2022 and 03/10/2022 for the same complaints on the initial visit patient with CT scan and blood work. Was discharged home with antibiotics. On the second visit patient with stable blood work and discharged home with pain medicine. Patient presenting back to the ER today with complaints that his mucoid bloody stool has continued and his pain has not resolved. Patient reports pain medicine ineffective from last ER visit. Historical: - Allergies: 20:56 No Known Allergies; eh3 - Home Meds: 20:56 mesalamine 400 mg Oral TbEC 2 tabs 3 times per day [Active]; eh3 - PMHx: 20:56 Colitis; eh3 - Immunization history:: Adult Immunizations not up to date. - Social history:: Smoking status: Patient denies any tobacco usage or history of. Patient/guardian denies using alcohol, street drugs. ROS: 21:21 Constitutional: Negative for fever, chills, and weight loss, Cardiovascular: Negative pm1 for chest pain, palpitations, and edema, Respiratory: Negative for shortness of breath, cough, wheezing, and pleuritic chest pain. 21:21 Back: Negative for injury and pain, MS/Extremity: Negative for injury and deformity, Skin: Negative for injury, rash, and discoloration, Neuro: Negative for headache, weakness, numbness, tingling, and seizure. 21:21 Abdomen/GI: Positive for abdominal pain, nausea and vomiting, rectal bleeding, Negative for constipation. 21:21 All other systems are negative. Exam: 21:21 Constitutional: This is a well developed, well nourished patient who is awake, alert, pm1 and in no acute distress. Head/Face: Normocephalic, atraumatic. 21:21 Back: No spinal tenderness. No costovertebral tenderness. Full range of motion. Skin: Warm, dry with normal turgor. Normal color with no rashes, no lesions, and no evidence of cellulitis. MS/ Extremity: Pulses equal, no cyanosis. Neurovascular intact. Full, normal range of motion. 21:21 Eyes: Exam is negative for acute changes, Periorbital structures: appear normal, Pupils: no acute changes, Extraocular movements: no acute changes, Conjunctiva: no acute changes, no injection. 21:21 ENT: Exam is negative for acute changes, Mouth: no acute changes, Lips: normal, moist, Oral mucosa: normal, pink and intact, moist. 21:21 Cardiovascular: Exam negative for acute changes, Rate: normal, Rhythm: regular, Pulses: no pulse deficits are appreciated, Heart sounds: normal, normal S1and S2. 21:21 Respiratory: Exam negative for acute changes, respiratory distress, shortness of breath. 21:21 Abdomen/GI: Inspection: abdomen appears normal, Palpation: soft, in all quadrants, mild abdominal tenderness, in all quadrants. 21:21 Neuro: Exam negative for acute changes, Orientation: is normal, Mentation: is normal, Motor: is normal, moves all fours. Vital Signs: 20:54 BP 137 / 97; Pulse 104; Resp 18; Temp 98.0(TE); Pulse Ox 100% on R/A; Weight 88.45 kg; eh3 Height 5 ft. 9 in. (175.26 cm); Pain 10/10; 22:12 BP 130 / 75; Pulse 85; Resp 18; Pulse Ox 100% ; Pain 0/10; kb3 23:51 BP 132 / 79; Pulse 85; Resp 16; Pulse Ox 99% ; Pain 2/10; kb3 20:54 Body Mass Index 28.80 (88.45 kg, 175.26 cm) eh3 MDM: 21:09 Patient medically screened. pm1 22:10 Data reviewed: lab test result(s), Patient's CBC from prior visits at baseline. pm1 Patient's HGB stable from the prior two visits. 23:14 Data interpreted: Pulse oximetry: on room air is 100 %. Interpretation: normal. pm1 23:20 Data reviewed: I discussed the case with the attending Emergency Department physician pm1 and she agrees that no CT is necessary at this ER visit. No WBC, Hgb stable from prior visits, and my examination of the patient's abdomen is benign. Recommends treatment with steroids and follow up with GI. 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 03/14 21:14 Order name: CBC with Diff; Complete Time: 22:10 pm1 03/14 21:14 Order name: CMP; Complete Time: 22:10 pm1 03/14 22:06 Order name: CBC Smear Scan; Complete Time: 22:10 EDMS 03/14 21:14 Order name: IV Saline Lock; Complete Time: 21:28 pm1 03/14 21:14 Order name: Labs collected and sent; Complete Time: 21:28 pm1 Administered Medications: 21:30 Drug: NS 0.9% 1000 ml Route: IV; Rate: 1000 ml; Site: left antecubital; 3 22:33 Follow up: Response: No adverse reaction kb3 23:45 Follow up: IV Status: Completed infusion; IV Intake: 1000ml kb3 21:30 Drug: Dilaudid (HYDROmorphone) 1 mg Route: IVP; Site: left antecubital; 3 22:33 Follow up: Response: No adverse reaction; Pain is decreased kb3 21:30 Drug: Zofran (Ondansetron) 4 mg Route: IVP; Site: left antecubital; 3 22:32 Follow up: Response: No adverse reaction kb3 23:32 Drug: Decadron - Dexamethasone 10 mg Route: IVP; Site: left antecubital; kb3 23:44 Follow up: Response: No adverse reaction kb3 Disposition: 03/15 01:32 Co-signature as Attending Physician, Cecelia Fisher MD STAFF ATTESTATION The sd2 patient's history, exam findings, diagnostics, and a summary of any interventions or procedures was reviewed in detail with the ED midlevel provider. I confirm the diagnosis as documented by the midlevel provider and I agree with the care plan articulated in the disposition section with regards to our discussion of the patient's case. Cecelia Fisher MD. Disposition Summary: 03/14/22 23:30 Discharge Ordered Location: Home pm1 Problem: new pm1 Symptoms: have improved pm1 Condition: Stable pm1 Diagnosis - Colitis pm1 - Noninfective gastroenteritis and colitis, unspecified pm1 Followup: pm1 - With: Emergency Department - When: As needed - Reason: Worsening of condition Followup: pm1 - With: Private Physician - When: 2 - 3 days - Reason: Recheck today's complaints, Continuance of care, Re-evaluation by your physician Followup: pm1 - With: Jose Schilling MD - When: 2 - 3 days - Reason: Recheck today's complaints, Continuance of care, Re-evaluation by your physician Discharge Instructions: - Discharge Summary Sheet pm1 - Ulcerative Colitis, Adult pm1 Forms: - Medication Reconciliation Form pm1 - Thank You Letter pm1 - Antibiotic Education pm1 - Prescription Opioid Use pm1 Prescriptions: - Prednisone 20 mg Oral Tablet - take 3 tablets by ORAL route once daily for 5 days; 15 tablet; Refills: 0, pm1 Product Selection Permitted - Tylenol-Codeine #3 300 mg-30 mg Oral - take 2 tablet by ORAL route every 6 hours As needed; 20 tablet; Refills: 0, pm1 Product Selection Permitted Signatures: Dispatcher [employer] Marvel Park NP PRODUCT MANAGER pm1 Kalina Cardoso RN RN eh3 Cecelia Fisher MD MD sd2 Shanika Muir RN RN kb3 Corrections: (The following items were deleted from the chart) 03/14 23:28 23:20 Data reviewed: agrees that no CT is necessary at this ER visit. No WBC, Hgb pm1 stable from prior visits, and my examination of the patient's abdomen is benign. Recommends treatment with steroids and follow up with GI, I have discussed the patient's presentation/case with the attending Emergency Department Physician; pm1
--- NOTE | 2022-03-14 23:31 | ER ---
Nurse's Notes [facility] Name: Wicho Weeks Age: 46 yrs Sex: Male : 1975 Arrival Date: 03/14/2022 Time: 20:44 Bed Treatment Private MD: Diagnosis: Noninfective gastroenteritis and colitis, unspecified Presentation: 03/14 20:54 Chief complaint: Patient states: lower abd pain for 2 weeks, rectal bleeding for over 1 eh3 month. Coronavirus screen: Vaccine status: Patient reports being unvaccinated. Ebola Screen: No symptoms or risks identified at this time. Initial Sepsis Screen: Does the patient meet any 2 criteria? No. Patient's initial sepsis screen is negative. Does the patient have a suspected source of infection? No. Patient's initial sepsis screen is negative. Risk Assessment: Do you want to hurt yourself or someone else? Patient reports no desire to harm self or others. Onset of symptoms was February 28, 2022. 20:54 Method Of Arrival: Ambulatory 3 20:54 Acuity: DRE 4 eh3 Triage Assessment: 20:56 General: Appears in no apparent distress. uncomfortable, Behavior is calm, cooperative, eh3 appropriate for age. Pain: Complains of pain in right lower quadrant and left lower quadrant Pain radiates to right upper quadrant and left upper quadrant Pain currently is 10 out of 10 on a pain scale. Quality of pain is described as crampy, sharp, stabbing, squeezing, tender, throbbing. Neuro: Level of Consciousness is awake, alert, obeys commands, Oriented to person, place, time, situation. Cardiovascular: Capillary refill < 3 seconds Patient's skin is warm and dry. Respiratory: Airway is patent Respiratory effort is even, unlabored. GI: Abdomen is flat, non-distended, Reports lower abdominal pain, upper abdominal pain, cramping, rectal bleeding, nausea. Historical: - Allergies: 20:56 No Known Allergies; eh3 - Home Meds: 20:56 mesalamine 400 mg Oral TbEC 2 tabs 3 times per day [Active]; eh3 - PMHx: 20:56 Colitis; eh3 - Immunization history:: Adult Immunizations not up to date. - Social history:: Smoking status: Patient denies any tobacco usage or history of. Patient/guardian denies using alcohol, street drugs. Screenin:21 Abuse screen: Denies threats or abuse. Nutritional screening: No deficits noted. eh3 Tuberculosis screening: No symptoms or risk factors identified. Fall Risk No fall in past 12 months (0 pts). No secondary diagnosis (0 pts). IV access (20 points). Ambulatory Aid- None/Bed Rest/Nurse Assist (0 pts). Gait- Normal/Bed Rest/Wheelchair (0 pts) Mental Status- Oriented to own ability (0 pts). Total Patricia Fall Scale indicates No Risk (0-24 pts). Assessment: 21:21 Reassessment: No changes from previously documented assessment. General: Appears in no eh3 apparent distress. uncomfortable, Behavior is calm, cooperative, Reports. Pain: Complains of pain in epigastric area Pain does not radiate. Pain currently is 10 out of 10 on a pain scale. Quality of pain is described as crampy, sharp, stabbing, Is continuous, Also complains of nausea, Diarrhea. GI: Abdomen is non-distended, Bowel sounds present X 4 quads. Abd is soft Abdomen is tender to palpation in epigastric area Reports cramping, diarrhea, epigastric pain, nausea. 23:00 Reassessment: Patient appears in no apparent distress at this time. Patient and/or hb family updated on plan of care and expected duration. Pain level reassessed. Patient is alert, oriented x 3, equal unlabored respirations, skin warm/dry/pink. Vital Signs: 20:54 BP 137 / 97; Pulse 104; Resp 18; Temp 98.0(TE); Pulse Ox 100% on R/A; Weight 88.45 kg; eh3 Height 5 ft. 9 in. (175.26 cm); Pain 10/10; 22:12 BP 130 / 75; Pulse 85; Resp 18; Pulse Ox 100% ; Pain 0/10; kb3 23:51 BP 132 / 79; Pulse 85; Resp 16; Pulse Ox 99% ; Pain 2/10; kb3 20:54 Body Mass Index 28.80 (88.45 kg, 175.26 cm) 3 ED Course: 20:44 Patient arrived in ED. jj6 20:47 Shanika Muir, RODOLFO is Primary Nurse. kb3 20:51 Marvel Garcia NP is PHCP. pm1 20:51 Cecelia Fisher MD is Attending Physician. pm1 20:56 Triage completed. eh3 20:56 Arm band placed on right wrist. eh3 21:21 Patient has correct armband on for positive identification. Bed in low position. Call eh3 light in reach. 21:21 No provider procedures requiring assistance completed. Inserted saline lock: 20 gauge eh3 in left antecubital area, using aseptic technique. Blood collected. Accessed. 23:29 Jose Schilling MD is Referral Physician. pm1 23:35 IV discontinued, intact, bleeding controlled, No redness/swelling at site. hb Administered Medications: 21:30 Drug: NS 0.9% 1000 ml Route: IV; Rate: 1000 ml; Site: left antecubital; eh3 22:33 Follow up: Response: No adverse reaction kb3 23:45 Follow up: IV Status: Completed infusion; IV Intake: 1000ml kb3 21:30 Drug: Dilaudid (HYDROmorphone) 1 mg Route: IVP; Site: left antecubital; eh3 22:33 Follow up: Response: No adverse reaction; Pain is decreased kb3 21:30 Drug: Zofran (Ondansetron) 4 mg Route: IVP; Site: left antecubital; eh3 22:32 Follow up: Response: No adverse reaction kb3 23:32 Drug: Decadron - Dexamethasone 10 mg Route: IVP; Site: left antecubital; kb3 23:44 Follow up: Response: No adverse reaction kb3 Medication: 21:21 VIS not applicable for this client. eh3 Intake: 23:45 IV: 1000ml; Total: 1000ml. kb3 Outcome: 23:30 Discharge ordered by . pm1 23:34 Discharged to home ambulatory. hb 23:34 Condition: stable 23:34 Discharge instructions given to patient, Instructed on discharge instructions, follow up and referral plans. medication usage, Demonstrated understanding of instructions, follow-up care, medications, Prescriptions given X 2. 23:54 Patient left the ED. kb3 Signatures: Marvel Garcia, PRIMARY COUNSELOR PRIMARY COUNSELOR pm1 Lo Ferguson, RODOLFO RN Mariah Pritchett jj6 Kalina Cardoso RN RN 3 Shanika Muir RN RN kb3
[2022-03-14] MEDS ORDERED: dexAMETHasone 4 MG/ML VIAL ONE (23:34)
[2022-03-15 04:14] VITALS: TEMP 98
[2022-03-15 04:19] VITALS: BP 132/79; O2SAT 99
== END 2022-03-14 23:54 | disposition home or self-care (01) ==
LOC: ER 20:27
DX: K52.9 Noninfective gastroenteritis and colitis, unspecified (principal)
CPT/HCPCS: 36415; 80053; 85025; 96361; 96374; 96375; 99284; J1100; J1170; J2405; J7030

== ENCOUNTER 2022-03-25 20:21 | Emergency (ER) | payer SELFPAY ==
--- OUTSIDE RECORDS SUMMARY | 2022-03-25 20:24 | XMS REPORT | Continuity of Care Document ---
:1975 Author Organization [facility] t Address [address] [place] [address] Care Team Providers Name Role Phone ANA [...] DA Active U 2018-08 [facility] All[facility]ie 0-17 Clint s 00:00: [facility] 00 are [facility] Medications This patient has no known medications. Procedures This patient has no known procedures. Encounters Start End Encounter Admission Attending Care Care Encounter Source Date/Time Date/Time Type Type Clinicians Facility Department ID 2022-02-10 Outpatient [facility] [id number] -[id number] [place] 11:33:08 ANA [id number] [facility] 2022-01-25 [facility] [id number] -[id number] [place] 15:47:07 ANA [id number] [facility] 2022-01-30 2022-01-30 Emergency E ALEJANDRA MARCANO DANG [address] 18:36:00 22:28:00 JOHN manuel 2022-01-29 2022-01-30 Emergency E ALEJANDRA FERRELL [facility] [address] 21:25:00 00:58:00 GREGORIO manuel 2022-01-28 2022-01-28 Emergency E ALEJANDRA FERRELL [facility] [address] 11:02:00 14:55:00 GREGORIO manuel 2022-01-24 2022-01-27 Inpatient E ALEJANDRA ADDISON [facility] [address] 23:12:00 15:10:00 OBIORA kaleb manuel Results Test Description Test Time Test Comments Results Result Comments Source - XR CHEST 1 V 2019-05-23 Patient Name: 08:28:00 ALEX BURROUGHS Unit No: [id number] EXAMS: CPT: [id number] XR CHEST 1 V 35762 History: Chest pain CHEST 1 VIEW FINDINGS: [...] (0831) BATCH NO: N/A Name: ALEX BURROUGHS [facility] ED Phys: Sky Starks MD [address] [place] : 1975 Age: 44 Sex: [place] [address] Loc: N.ERS Exam Date: 05/23/2019 Status: REG ER PH: FAX: PAGE 1 Signed Report TROPONIN-I 2019-05-23 07:18:00 Test Item Value Reference Range Interpretation Comme nts TROPONIN-I (test code = TROPI) <0.020 ng/mL 0.000-0.034 N BASIC METABOLIC [id number] 07:14:00 Test Item Value Reference Range Interpretation [...] mg/dL 8.5-10.5 N = [place]) CBC W/AUTO [id number] 07:10:00 Test Item Value Reference Range Interpretation [...]
[2022-03-25 22:16] LABS: Hematocrit 29.6 % (39.6-49.0); Lymphocytes % 23.9 % (15.3-44.8); MCV 73.8 fL (80-100); MPV 6.9 fL (7.6-11.3); RBC Red Blood Cell Count 4.01 M/uL (4.33-5.43)
[2022-03-25 22:31] LABS: Albumin 2.7 g/dL (3.4-5.0); Bilirubin Total 0.2 mg/dL (0.2-1.0); Potassium 3.4 mmol/L (3.5-5.1); Protein, Total 6.9 g/dL (6.4-8.2)
[2022-03-25 22:47] LABS: Anisocytosis 2+; Blood Morphology Comment NOTED (NOT SEEN); Macrocytosis 1+; Ovalocytes 1+; Platelet Estimate INCR; Polychromasia SLIGHT; White Blood Cell Scan OK (OK)
[2022-03-25] MEDS ORDERED: ONDANSETRON 4 MG/2 ML VIAL ONE (23:19)
[2022-03-25] MEDS ORDERED: MORPHINE 4 MG/ML SYR ONE (23:19)
[2022-03-25] MEDS ORDERED: NA CHLORIDE 0.9% 500 ML ONE (23:19)
--- NOTE | 2022-03-26 00:18 | EDPHYS ---
Physician Documentation [facility] Name: Wicho Weeks Age: 47 yrs Sex: Male : 1975 Arrival Date: 03/25/2022 Time: 20:22 Bed 8 Private MD: ED Physician Sky Vasquez HPI: 03/26 02:04 This 47 yrs old Male presents to ER via Ambulatory with complaints of kdr Weakness, Bloody Stools, Abdominal Pain. 02:05 Patient presents for the fourth time so far this month with abdominal pain and rectal kdr bleeding. Patient has been seen multiple times for the same issue since February. Patient has a history of colitis. He states that today his pain is returning that is not new in any way but simply recurring. He denies fever or nausea and vomiting. He states that he has had either bright red blood per rectum. He denies melena.. Onset: The symptoms/episode began/occurred gradually, 3 day(s) ago. Severity of symptoms: At their worst the symptoms were mild moderate just prior to arrival, in the emergency department the symptoms have improved mildly. The patient has experienced similar episodes in the past, multiple times. The patient has been recently seen by a physician: The patient has been recently seen at the [facility] Emergency Department, last week. Historical: - Allergies: 03/25 21:22 No Known Allergies; bm7 - Home Meds: 21:22 mesalamine 400 mg Oral TbEC 2 tabs 3 times per day [Active]; bm7 - PMHx: 21:22 Colitis; bm7 - Immunization history:: Adult Immunizations up to date, Client reports having NOT received the Covid vaccine. - Social history:: Smoking status: Patient denies any tobacco usage or history of. ROS: 03/26 02:05 Constitutional: Negative for fever, chills, and weight loss, Eyes: Negative for injury, kdr pain, redness, and discharge, ENT: Negative for injury, pain, and discharge, Neck: Negative for injury, pain, and swelling, Cardiovascular: Negative for chest pain, palpitations, and edema, Respiratory: Negative for shortness of breath, cough, wheezing, and pleuritic chest pain, Back: Negative for injury and pain, : Negative for injury, bleeding, discharge, and swelling, MS/Extremity: Negative for injury and deformity, Skin: Negative for injury, rash, and discoloration, Neuro: Negative for headache, weakness, numbness, tingling, and seizure activity. Psych: Negative for depression, anxiety, suicide ideation, homicidal ideation, and hallucinations, Allergy/Immunology: Negative for hives, rash, and allergies, Endocrine: Negative for neck swelling, polydipsia, polyuria, polyphagia, and marked weight changes, Hematologic/Lymphatic: Negative for swollen nodes, abnormal bleeding, and unusual bruising. Abdomen/GI: Positive for abdominal pain, diarrhea, rectal bleeding, Negative for vomiting, abdominal distension, anorexia, dysphagia, hematemesis, black/tarry stool. Exam: 02:05 Constitutional: This is a well developed, well nourished patient who is awake, alert, kdr and in no acute distress. Head/Face: Normocephalic, atraumatic. Eyes: Pupils equal round and reactive to light, extra-ocular motions intact. Lids and lashes normal. Conjunctiva and sclera are non-icteric and not injected. Cornea within normal limits. Periorbital areas with no swelling, redness, or edema. Neck: Trachea midline, no thyromegaly or masses palpated, and no cervical lymphadenopathy. Supple, full range of motion without nuchal rigidity, or vertebral point tenderness. No Meningismus. Chest/axilla: Normal chest wall appearance and motion. Nontender with no deformity. No lesions are appreciated. Cardiovascular: Regular rate and rhythm with a normal S1 and S2. No gallops, murmurs, or rubs. Normal PMI, no JVD. No pulse deficits. Respiratory: Lungs have equal breath sounds bilaterally, clear to auscultation and percussion. No rales, rhonchi or wheezes noted. No increased work of breathing, no retractions or nasal flaring. Back: No spinal tenderness. No costovertebral tenderness. Full range of motion. Skin: Warm, dry with normal turgor. Normal color with no rashes, no lesions, and no evidence of cellulitis. MS/ Extremity: Pulses equal, no cyanosis. Neurovascular intact. Full, normal range of motion. Neuro: Awake and alert, GCS 15, oriented to person, place, time, and situation. Cranial nerves II-XII grossly intact. Motor strength 5/5 in all extremities. Sensory grossly intact. Cerebellar exam normal. Normal gait. Psych: Awake, alert, with orientation to person, place and time. Behavior, mood, and affect are within normal limits. 02:05 Abdomen/GI: Inspection: abdomen appears normal, Bowel sounds: active, all quadrants, Palpation: soft, mild abdominal tenderness, in the left upper quadrant and left lower quadrant. Vital Signs: 03/25 21:17 BP 127 / 86; Pulse 76; Resp 18; Temp 98.1(O); Pulse Ox 99% on R/A; Weight 90.72 kg (R); bm7 Height 5 ft. 9 in. (175.26 cm); Pain 10/10; 03/26 00:00 BP 131 / 73; Pulse 67; Resp 18; Pulse Ox 100% on R/A; Pain 8/10; lp1 00:58 BP 112 / 73; Pulse 77; Resp 18; Pulse Ox 98% on R/A; lp1 01:30 BP 119 / 76; Pulse 68; Resp 18; Pulse Ox 99% on R/A; Pain 7/10; lp1 03/25 21:17 Body Mass Index 29.53 (90.72 kg, 175.26 cm) bm7 MDM: 00:17 Patient medically screened. kdr 02:05 Data reviewed: vital signs, nurses notes, lab test result(s). Counseling: I had a kdr detailed discussion with the patient and/or guardian regarding: the historical points, exam findings, and any diagnostic results supporting the discharge/admit diagnosis, lab results, the need for outpatient follow up. 03/25 21:34 Order name: CBC with Diff; Complete Time: 22:50 kdr 03/25 21:34 Order name: CMP; Complete Time: 22:50 kdr 03/25 21:34 Order name: Lipase; Complete Time: 22:50 kdr 03/25 21:34 Order name: Type And Screen; Complete Time: 00:06 kdr 03/25 22:25 Order name: CBC Smear Scan; Complete Time: 22:50 EDMS 03/25 21:34 Order name: IV Saline Lock; Complete Time: 22:06 kdr 03/25 21:34 Order name: Labs collected and sent; Complete Time: 22:06 kdr Administered Medications: 00:12 Drug: Zofran (Ondansetron) 4 mg Route: IVP; Site: right antecubital; lp1 01:32 Follow up: Response: Marked relief of symptoms; Nausea is decreased lp1 00:12 Drug: morphine 4 mg Route: IVP; Infused Over: 4 mins; Site: right antecubital; lp1 01:00 Follow up: Response: No change in condition lp1 00:12 Drug: NS 0.9% 500 ml Volume: 500 ml; Route: IV; Rate: 1 bolus; Site: right antecubital; lp1 01:33 Follow up: IV Status: IV converted to saline lock; IV Intake: 300ml lp1 00:58 Drug: SOLU-Medrol (methylPrednisoLONE) 125 mg Route: IVP; Site: right antecubital; lp1 01:32 Follow up: Response: No adverse reaction lp1 01:32 Drug: Dilaudid (HYDROmorphone) 1 mg {Note: Verbal order per Dr. Vasquez.} Route: IM; lp1 Site: right deltoid; 01:40 Follow up: Response: Medication administered at discharge. lp1 Disposition Summary: 03/26/22 00:17 Discharge Ordered Location: Home kdr Problem: an acute exacerbation kdr Symptoms: have improved kdr Condition: Stable kdr Diagnosis - Abdominal tenderness kdr - Ulcerative (chronic) pancolitis with rectal bleeding kdr Followup: kdr - With: Private Physician - When: 2 - 3 days - Reason: If symptoms return, Further diagnostic work-up, Recheck today's complaints, Continuance of care, Re-evaluation by your physician Followup: kdr - With: Jose Schilling MD - When: 2 - 3 days - Reason: If symptoms return, Further diagnostic work-up, Recheck today's complaints, Continuance of care, Re-evaluation by your physician Discharge Instructions: - Discharge Summary Sheet kdr - Ulcerative Colitis, Adult kdr Forms: - Medication Reconciliation Form kdr - Thank You Letter kdr - Prescription Opioid Use kdr Prescriptions: - Pepcid 20 mg Oral Tablet - take 1 tablet by ORAL route every 12 hours for 10 days; 20 tablet; Refills: 0, kdr Product Selection Permitted - Prednisone 20 mg Oral Tablet - take 1 tablet by ORAL route once daily for 5 days; 5 tablet; Refills: 0, kdr Product Selection Permitted - Zofran 4 mg Oral Tablet - take 1 tablet by ORAL route every 4-6 hours As needed; 12 tablet; Refills: 0, kdr Product Selection Permitted - Tylenol-Codeine #3 300 mg-30 mg Oral - take 1 tablet by ORAL route every 4-6 hours As needed; 12 tablet; Refills: 0, kdr Product Selection Permitted Signatures: Dispatcher [employer] Sky Serrano MD MD kdr Marcela Pang RN RN lp1 Bambi Hannon RN RN bm7
--- NOTE | 2022-03-26 00:18 | ER ---
Nurse's Notes [facility] Name: Wicho Weeks Age: 47 yrs Sex: Male : 1975 Arrival Date: 03/25/2022 Time: 20:22 Bed 8 Private MD: Diagnosis: Abdominal tenderness;Ulcerative (chronic) pancolitis with rectal bleeding Presentation: 03/25 21:20 Chief complaint: Patient states: I came here a week ago for colitis and rectal bleeding bm7 and I was told to follow up with a GI doctor but, my appointment isn't until next week. I am still having bad abdominal pain and rectal bleeding. Coronavirus screen: At this time, the client does not indicate any symptoms associated with coronavirus-19. Ebola Screen: No symptoms or risks identified at this time. 21:20 Method Of Arrival: Ambulatory 7 21:21 Initial Sepsis Screen: Does the patient meet any 2 criteria? No. Patient's initial bm7 sepsis screen is negative. Does the patient have a suspected source of infection? Yes: Acute abdominal pain. Risk Assessment: Do you want to hurt yourself or someone else? Patient reports no desire to harm self or others. Onset of symptoms is unknown. 21:21 Acuity: DRE 3 bm7 Triage Assessment: 21:22 General: Appears in no apparent distress. uncomfortable, well groomed, well developed, bm7 Behavior is calm, cooperative, appropriate for age. Pain: Complains of pain in abdomen. EENT: No deficits noted. No signs and/or symptoms were reported regarding the EENT system. Neuro: No deficits noted. Cardiovascular: No deficits noted. Respiratory: No deficits noted. GI: Abdomen is round non-distended, Reports lower abdominal pain, upper abdominal pain, cramping, diarrhea, rectal bleeding, nausea. : No deficits noted. No signs and/or symptoms were reported regarding the genitourinary system. Derm: No deficits noted. No signs and/or symptoms reported regarding the dermatologic system. Musculoskeletal: No deficits noted. No signs and/or symptoms reported regarding the musculoskeletal system. Historical: - Allergies: 21:22 No Known Allergies; bm7 - Home Meds: 21:22 mesalamine 400 mg Oral TbEC 2 tabs 3 times per day [Active]; bm7 - PMHx: 21:22 Colitis; bm7 - Immunization history:: Adult Immunizations up to date, Client reports having NOT received the Covid vaccine. - Social history:: Smoking status: Patient denies any tobacco usage or history of. Screenin:07 Abuse screen: Denies threats or abuse. Denies injuries from another. Nutritional lp1 screening: No deficits noted. Tuberculosis screening: No symptoms or risk factors identified. Fall Risk None identified. Assessment: 22:07 General: Appears uncomfortable, Behavior is appropriate for age. Pain: Complains of lp1 pain in right upper quadrant and right lower quadrant Pain currently is 8 out of 10 on a pain scale. Quality of pain is described as sharp. Neuro: Level of Consciousness is awake, alert, obeys commands, Oriented to person, place, time, situation. Cardiovascular: Patient's skin is warm and dry. Respiratory: Respiratory effort is even, unlabored. GI: Abdomen is non-distended, Bowel sounds present X 4 quads. Abdomen is tender to palpation in right upper quadrant and right lower quadrant Reports rectal bleeding. : No signs and/or symptoms were reported regarding the genitourinary system. EENT: No signs and/or symptoms were reported regarding the EENT system. Derm: Skin is intact, Skin is dry, Skin is pale. Musculoskeletal: No deficits noted. 03/26 01:14 Reassessment: Patient reports no pain relief from Morphine administered; Provider lp1 notified. Vital Signs: 03/25 21:17 BP 127 / 86; Pulse 76; Resp 18; Temp 98.1(O); Pulse Ox 99% on R/A; Weight 90.72 kg (R); bm7 Height 5 ft. 9 in. (175.26 cm); Pain 10/10; 03/26 00:00 BP 131 / 73; Pulse 67; Resp 18; Pulse Ox 100% on R/A; Pain 8/10; lp1 00:58 BP 112 / 73; Pulse 77; Resp 18; Pulse Ox 98% on R/A; lp1 01:30 BP 119 / 76; Pulse 68; Resp 18; Pulse Ox 99% on R/A; Pain 7/10; lp1 03/25 21:17 Body Mass Index 29.53 (90.72 kg, 175.26 cm) bm7 ED Course: 03/25 20:22 Patient arrived in ED. bp1 20:40 Sky Vasquez MD is Attending Physician. kdr 21:22 Triage completed. bm7 21:22 Arm band placed on right wrist. bm7 21:48 Marcela Pang, RODOLFO is Primary Nurse. lp1 22:00 Inserted saline lock: 20 gauge in right antecubital area, using aseptic technique. lp1 Blood collected. 22:00 Initial lab(s) drawn, by me, sent to lab. T\T\S collected, blood band applied to patient. lp1 22:08 Patient has correct armband on for positive identification. lp1 23:20 DC'd 20g IV to R AC. lp1 23:24 Inserted saline lock: 22 gauge in left antecubital area, using aseptic technique. lp1 23:47 Inserted saline lock: 22 gauge in right antecubital area, using aseptic technique. mw1 08 00:13 DC'd 22g to L AC due to infiltration. lp1 00:15 Jose Schilling MD is Referral Physician. kdr 01:33 No provider procedures requiring assistance completed. IV discontinued, No lp1 redness/swelling at site. Pressure dressing applied. Administered Medications: 00:12 Drug: Zofran (Ondansetron) 4 mg Route: IVP; Site: right antecubital; lp1 01:32 Follow up: Response: Marked relief of symptoms; Nausea is decreased lp1 00:12 Drug: morphine 4 mg Route: IVP; Infused Over: 4 mins; Site: right antecubital; lp1 01:00 Follow up: Response: No change in condition lp1 00:12 Drug: NS 0.9% 500 ml Volume: 500 ml; Route: IV; Rate: 1 bolus; Site: right antecubital; lp1 01:33 Follow up: IV Status: IV converted to saline lock; IV Intake: 300ml lp1 00:58 Drug: SOLU-Medrol (methylPrednisoLONE) 125 mg Route: IVP; Site: right antecubital; lp1 01:32 Follow up: Response: No adverse reaction lp1 01:32 Drug: Dilaudid (HYDROmorphone) 1 mg {Note: Verbal order per Dr. Vasquez.} Route: IM; lp1 Site: right deltoid; 01:40 Follow up: Response: Medication administered at discharge. lp1 Medication: 03/25 22:08 VIS not applicable for this client. lp1 Intake: 03/26 01:33 IV: 300ml; Total: 300ml. lp1 Outcome: 00:17 Discharge ordered by . kdr 01:33 Discharged to home ambulatory, with friend. lp1 01:33 Condition: good 01:33 Discharge instructions given to patient, Instructed on discharge instructions, follow up and referral plans. medication usage, Demonstrated understanding of instructions, follow-up care, medications, Prescriptions given X 4. 01:40 Patient left the ED. lp1 Signatures: Sky Vasquez MD MD kdr Pena, Laura, RN RN lp1 Sergio Blanca 1 Bambi Adler [facility] Bambi Hnanon, RN RN bm7
[2022-03-26] MEDS ORDERED: METHYLPREDNISOLONE 125 MG INJ ONE (00:56)
[2022-03-26] MEDS ORDERED: HYDROMORPHONE HCL 1 MG/ML INJ ONE (01:29)
[2022-03-26 04:50] VITALS: TEMP 98.1
[2022-03-26 05:19] VITALS: BP 119/76; O2SAT 99
== END 2022-03-26 01:40 | disposition home or self-care (01) ==
LOC: ER 20:21
DX: K51.011 Ulcerative (chronic) pancolitis with rectal bleeding (principal)
CPT/HCPCS: 36415; 80053; 83690; 85025; 86850; 86900; 86901; 96361; 96372; 96374; 96375; 99284; J1170; J2405; J2930; J7040

== ENCOUNTER 2022-03-28 15:51 | Emergency (ER) | payer SELFPAY ==
--- OUTSIDE RECORDS SUMMARY | 2022-03-28 15:54 | XMS REPORT | Continuity of Care Document ---
:1975 Author Organization [facility] t Address [address] [place] [address] Care Team Providers Name Role Phone ANA [...] DA Active U 2018-08 [facility] Allergie 0-17 [place] 00:00: [facility] 00 are [facility] Medications This patient has no known medications. Procedures This patient has no known procedures. Encounters Start End Encounter Admission Attending Care Care Encounter Source Date/Time Date/Time Type Type Clinicians Facility Department ID 2022-02-10 [facility] [id number] -[id number] [place] 11:33:[id number] [facility] 2022-01-25 [facility] [id number] -[id number] [place] 15:47:[id number] [facility] 2022-01-30 2022-01-30 Emergency E ALEJANDRA MARCANO DANG [address] 18:36:00 22:28:00 JOHN manuel 2022-01-29 2022-01-30 Emergency E ALEJANDRA FERRELL [facility] [address] 21:25:00 00:58:00 GREGORIO manuel 2022-01-28 2022-01-28 Emergency E ALEJANDRA FERRELL [facility] [address] 11:02:00 14:55:00 GREGORIO manuel 2022-01-24 2022-01-27 Inpatient E ALEJANDRA ADDISON [facility] [address] 23:12:00 15:10:00 OBIORA kaleb manuel Results Test Description Test Time Test Comments Results Result Comments Source - XR CHEST 1 V 2019-05-23 Patient Name: 08:28:00 ALEX BURROUGHS Unit No: [id number] EXAMS: CPT: [id number] XR CHEST 1 V 13152 History: Chest pain CHEST 1 VIEW FINDINGS: [...] (0831) BATCH NO: N/A Name: ALEX BURROUGHS [facility] ED Phys: Sky Starks MD [address] [place] : 1975 Age: 44 Sex: [place] [address] Loc: N.ERS Exam Date: 05/23/2019 Status: REG ER PH: FAX: PAGE 1 Signed Report TROPONIN-I 2019-05-23 07:18:00 Test Item Value Reference Range Interpretation Comme nts TROPONIN-I (test code = TROPI) <0.020 ng/mL 0.000-0.034 N BASIC METABOLIC [id number] 07:14:00 Test Item Value Reference Range Interpretation [...] mg/dL 8.5-10.5 N = [place]) CBC W/AUTO [id number] 07:10:00 Test Item Value Reference Range Interpretation [...]
[2022-03-28] MEDS ORDERED: NA CHLORIDE 0.9% 1,000 ML ONE (16:39)
[2022-03-28 16:48] LABS: Absolute Lymphocytes (CBC) 2.1 K/uL (0.7-4.9); Hematocrit 29.8 % (39.6-49.0); Lymphocytes % 21.1 % (15.3-44.8); MCV 73.7 fL (80-100); RBC Red Blood Cell Count 4.05 M/uL (4.33-5.43)
[2022-03-28] MEDS ORDERED: HYDROMORPHONE HCL 2 MG/ML inj ONE (16:55)
[2022-03-28] MEDS ORDERED: ONDANSETRON 4 MG/2 ML VIAL ONE (16:55)
[2022-03-28 17:05] LABS: Albumin 2.6 g/dL (3.4-5.0); Bilirubin Total 0.3 mg/dL (0.2-1.0); Potassium 3.1 mmol/L (3.5-5.1); Protein, Total 6.7 g/dL (6.4-8.2)
[2022-03-28 17:07] LABS: Urine Blood Negative (Negative); Urine Glucose Negative (Negative); Urine Protein Negative (Negative)
[2022-03-28 17:41] LABS: Urine RBC <5 /HPF (None Seen)
[2022-03-28 17:42] LABS: Urine Bacteria <20 /HPF (<20); Urine Mucus Slight /HPF (None Seen)
[2022-03-28 18:35] LABS: Anisocytosis 1+; Blood Morphology Comment NOTED (NOT SEEN); Platelet Estimate INCR; Platelets, Giant PRESENT; White Blood Cell Scan OK (OK)
[2022-03-28] MEDS ORDERED: HYDROMORPHONE HCL 1 MG/ML INJ ONE (19:51)
--- NOTE | 2022-03-28 21:06 | RAD REPORT ---
EXAM DESCRIPTION: CT - Abdomen Pelvis W Contrast - 03/28/2022 8:48 pm CLINICAL HISTORY: Abdominal pain. COMPARISON: March 17, 2022 TECHNIQUE: Computed axial tomography of the abdomen and pelvis was obtained. 100 cc Isovue-300 is ad ministered intravenously. Oral contrast was given. All CT scans are performed using dose optimization technique as appropriate and may include automated exposure control or mA/KV adjustment according to patient size. FINDINGS: The liver, spleen, pancreas, adrenals and kidneys appear unremarkable. The appendix is normal caliber. There is no evidence of diverticulitis Mild to moderate thickening of the wall of the right colon. Mild thickening of wall of transverse and left colon. No pneumatosis IMPRESSION: Mild to moderate colitis
[2022-03-28] MEDS ORDERED: METHYLPREDNISOLONE 125 MG INJ ONE (21:41)
[2022-03-28] MEDS ORDERED: DIPHENHYDRAMINE 50 MG/ML VIAL ONE (21:41)
[2022-03-28] MEDS ORDERED: POTASSIUM 25 MEQ EFFERV TAB ONE (21:42)
--- NOTE | 2022-03-28 22:04 | ER ---
Nurse's Notes [facility] Name: Wicho Weeks Age: 47 yrs Sex: Male : 1975 Arrival Date: 03/28/2022 Time: 15:53 Bed 19 Private MD: Diagnosis: Noninfective gastroenteritis and colitis, unspecified Presentation: 03/28 16:06 Chief complaint: Patient states: Pt reports ongoing abdominal pain N/V/D x3 weeks. Pt kb3 has been evaluated numerous times in this ED for same complaints over the last 3 weeks. Coronavirus screen: Vaccine status: Patient reports receiving the 2nd dose of the covid vaccine. Ebola Screen: Patient negative for fever greater than or equal to 101.5 degrees Fahrenheit, and additional compatible Ebola Virus Disease symptoms Patient denies exposure to infectious person. Patient denies travel to an Ebola-affected area in the 21 days before illness onset. No symptoms or risks identified at this time. Initial Sepsis Screen: Does the patient meet any 2 criteria? No. Patient's initial sepsis screen is negative. Does the patient have a suspected source of infection? No. Patient's initial sepsis screen is negative. Risk Assessment: Do you want to hurt yourself or someone else? Patient reports no desire to harm self or others. Onset of symptoms was March 07, 2022. 16:06 Method Of Arrival: Ambulatory banner 16:06 Acuity: DRE 3 kb3 Triage Assessment: 16:10 General: Appears in no apparent distress. Behavior is calm, cooperative. Pain: kb3 Complains of pain in abdomen. GI: Reports lower abdominal pain, upper abdominal pain, diarrhea, nausea, vomiting. Historical: - Allergies: 16:10 No Known Allergies; kb3 - Home Meds: 16:10 None [Active]; kb3 - PMHx: 16:10 Colitis; Chronic Abdominal Pain; kb3 - PSHx: 16:10 None; kb3 - Immunization history:: Adult Immunizations up to date, Client reports receiving the 2nd dose of the Covid vaccine, Last tetanus immunization: up to date. - Social history:: Smoking status: Patient denies any tobacco usage or history of. Screenin:15 Abuse screen: Denies threats or abuse. Denies injuries from another. Nutritional mb8 screening: No deficits noted. Tuberculosis screening: No symptoms or risk factors identified. Fall Risk None identified. Assessment: 17:22 GI: Abdomen is flat, non-distended, Bowel sounds present X 4 quads. Abd is soft and non mb8 tender Reports lower abdominal pain, nausea. 18:15 Reassessment: Patient and/or family updated on plan of care and expected duration. Pain mb8 level reassessed. Patient is alert, oriented x 3, equal unlabored respirations, skin warm/dry/pink. Patient states feeling better. Finished drink for CT. CT notified and will scan in 2 hours. . 18:39 Reassessment: Patient and/or family updated on plan of care and expected duration. Pain mb8 level reassessed. Patient is alert, oriented x 3, equal unlabored respirations, skin warm/dry/pink. 19:36 Reassessment: Patient is alert, oriented x 3, equal unlabored respirations, skin ll3 warm/dry/pink. C/o epigastric pain 10/10, Kenny Page notified. 20:50 Reassessment: Patient and/or family updated on plan of care and expected duration. Pain ll3 level reassessed. Patient is alert, oriented x 3, equal unlabored respirations, skin warm/dry/pink. Patient states feeling better. 22:32 Reassessment: No changes from previously documented assessment. Patient and/or family ll3 updated on plan of care and expected duration. Pain level reassessed. Patient is alert, oriented x 3, equal unlabored respirations, skin warm/dry/pink. Vital Signs: 16:06 BP 135 / 92; Pulse 79; Resp 20; Temp 98.1; Pulse Ox 99% ; Weight 90.72 kg; Height 5 ft. kb3 9 in. (175.26 cm); Pain 10/10; 17:22 BP 128 / 78; Pulse 89; Resp 16; Pulse Ox 100% ; Pain 5/10; mb8 18:38 BP 116 / 65; Pulse 88; Resp 16; Pulse Ox 99% ; Pain 4/10; mb8 19:36 BP 144 / 87; Pulse 83; Resp 16; Pulse Ox 99% on R/A; ll3 20:15 BP 117 / 71; Pulse 88; Resp 16; Pulse Ox 99% on R/A; ll3 20:52 BP 129 / 65; Pulse 80; Resp 16; Pulse Ox 99% ; ll3 22:00 BP 120 / 82; Pulse 80; Resp 16; Pulse Ox 98% on R/A; ll3 16:06 Body Mass Index 29.53 (90.72 kg, 175.26 cm) kb3 ED Course: 15:53 Patient arrived in ED. rg4 15:55 [facility]. cp 15:55 Damien Garvey MD is Attending Physician. cp 16:10 Triage completed. kb3 16:10 Arm band placed on left wrist. kb3 16:37 Inserted saline lock: 22 gauge in left upper arm, using aseptic technique. Blood ll1 collected. 17:15 Sergio Jaramillo, RN is Primary Nurse. mb8 17:16 Patient has correct armband on for positive identification. mb8 17:16 No provider procedures requiring assistance completed. mb8 18:39 Pulse ox on. NIBP on. Assisted with urinal. mb8 18:[address] Scan. mb8 20:50 CT Abd/Pelvis - PO and IV Contrast In Process Unspecified. EDMS 22:01 Thang Herrmann MD is Referral Physician. cp 22:32 IV discontinued, intact, bleeding controlled, No redness/swelling at site. Pressure ll3 dressing applied. Administered Medications: 16:40 Drug: Zofran (Ondansetron) 4 mg Route: IVP; Site: left upper arm; kr3 16:45 Drug: Dilaudid (HYDROmorphone) 1 mg Route: IVP; Site: left upper arm; kr3 16:55 Drug: NS 0.9% 1000 ml Route: IV; Rate: 1 bolus; Site: left upper arm; kr3 19:44 Drug: Dilaudid (HYDROmorphone) 1 mg Route: IVP; Site: left forearm; ll3 20:15 Follow up: BP 117 / 71; Pulse 88 bpm; Resp 16 bpm; Pulse Ox 99% RA; Response: No ll3 adverse reaction 22:03 Drug: SOLU-Medrol (methylPrednisoLONE) 125 mg Route: IVP; Site: left forearm; ll3 22:34 Follow up: Response: No adverse reaction ll3 22:03 Drug: Potassium Effervescent Tablet 50 mEq Route: PO; ll3 22:34 Follow up: Response: No adverse reaction ll3 22:03 Drug: Benadryl (diphenhydrAMINE) 25 mg Route: IVP; Site: left forearm; ll3 22:33 Follow up: Response: No adverse reaction ll3 Medication: 18:39 VIS not applicable for this client. mb8 Outcome: 22:03 Discharge ordered by . cp 22:33 Discharged to home ambulatory. ll3 22:33 Condition: stable 22:33 Discharge instructions given to patient, Instructed on discharge instructions, follow up and referral plans. medication usage, Demonstrated understanding of instructions, follow-up care, medications, Prescriptions given X 3. 22:34 Patient left the ED. 3 Signatures: Dispatcher [employer] EDMS Kenny Mccullough PA PA cp Garcia, Rubi rg4 Zeyad Miranda RN RN ll1 Verito Flores RN RN ll3 Janice Blue RN RN kr3 Shanika Muir, RN RN kb3 Sergio Jaramillo, RN RN mb8 Corrections: (The following items were deleted from the chart) 16:11 16:10 Home Meds: mesalamine 400 mg Oral TbEC 2 tabs 3 times per day; kb3 kb3
--- NOTE | 2022-03-28 22:04 | EDPHYS ---
Physician Documentation [facility] Name: Wicho Weeks Age: 47 yrs Sex: Male : 1975 Arrival Date: 03/28/2022 Time: 15:53 Bed 19 Private MD: ED Physician Damien Garvey HPI: 03/28 16:30 This 47 yrs old Male presents to ER via Ambulatory with complaints of cp Abdominal Pain, Rectal Pain, Diarrhea. 16:30 The patient presents with abdominal pain that is diffuse. cp 16:30 Onset: The symptoms/episode began/occurred 3 week(s) ago. The symptoms do not radiate. cp Associated signs and symptoms: Pertinent positives: blood in stools, diarrhea, nausea, vomiting, rectal pain, Pertinent negatives: fever, vomiting blood. The symptoms are described as constant. 16:30 Severity of pain: in the emergency department the pain is unchanged despite home cp interventions. The patient has experienced similar episodes in the past, multiple times. The patient has been recently seen at the [facility] Emergency Department, last week, for similar complaints labs were performed. Patient reports history of colitis and chronic abdominal pain. Has not seen a GI physician recently. Historical: - Allergies: 16:10 No Known Allergies; kb3 - Home Meds: 16:10 None [Active]; kb3 - PMHx: 16:10 Colitis; Chronic Abdominal Pain; kb3 - PSHx: 16:10 None; kb3 - Immunization history:: Adult Immunizations up to date, Client reports receiving the 2nd dose of the Covid vaccine, Last tetanus immunization: up to date. - Social history:: Smoking status: Patient denies any tobacco usage or history of. ROS: 16:35 Constitutional: Negative for body aches, chills, fever, poor PO intake. cp 16:35 Eyes: Negative for injury, pain, redness, and discharge. cp 16:35 ENT: Negative for drainage from ear(s), ear pain, sore throat, difficulty swallowing, difficulty handling secretions. 16:35 Cardiovascular: Negative for chest pain, edema, palpitations. 16:35 Respiratory: Negative for cough, shortness of breath, wheezing. 16:35 Abdomen/GI: Positive for abdominal pain, nausea, vomiting, and diarrhea, rectal pain, rectal bleeding, Negative for constipation. 16:35 Skin: Negative for cellulitis, rash. 16:35 Neuro: Negative for altered mental status, headache, loss of consciousness, syncope, weakness. 16:35 All other systems are negative. Exam: 16:40 Constitutional: The patient appears in no acute distress, alert, awake, non-toxic, well cp developed, well nourished, uncomfortable. 16:40 Head/Face: Normocephalic, atraumatic. cp 16:40 Eyes: Periorbital structures: appear normal, Conjunctiva: normal, no exudate, no injection, Sclera: no appreciated abnormality, Lids and lashes: appear normal, bilaterally. 16:40 ENT: External ear(s): are unremarkable, Nose: is normal, Mouth: Lips: moist, Oral mucosa: pink and intact, moist, Posterior pharynx: Airway: no evidence of obstruction, patent. 16:40 Chest/axilla: Inspection: normal, Palpation: is normal, no crepitus, no tenderness. 16:40 Cardiovascular: Rate: normal, Rhythm: regular, Edema: is not appreciated, JVD: is not appreciated. 16:40 Respiratory: the patient does not display signs of respiratory distress, Respirations: normal, no use of accessory muscles, no retractions, labored breathing, is not present, Breath sounds: are clear throughout, no decreased breath sounds, no stridor, no wheezing. 16:40 Abdomen/GI: Inspection: abdomen appears normal, Bowel sounds: active, all quadrants, Palpation: soft, in all quadrants, moderate abdominal tenderness, in all quadrants, Rectal exam: rectal tone normal, Stool: brown, guaiac negative, tenderness, that is moderate. 16:40 Back: pain, is absent, ROM is normal. Vital Signs: 16:06 BP 135 / 92; Pulse 79; Resp 20; Temp 98.1; Pulse Ox 99% ; Weight 90.72 kg; Height 5 ft. kb3 9 in. (175.26 cm); Pain 10/10; 17:22 BP 128 / 78; Pulse 89; Resp 16; Pulse Ox 100% ; Pain 5/10; mb8 18:38 BP 116 / 65; Pulse 88; Resp 16; Pulse Ox 99% ; Pain 4/10; mb8 19:36 BP 144 / 87; Pulse 83; Resp 16; Pulse Ox 99% on R/A; ll3 20:15 BP 117 / 71; Pulse 88; Resp 16; Pulse Ox 99% on R/A; ll3 20:52 BP 129 / 65; Pulse 80; Resp 16; Pulse Ox 99% ; ll3 22:00 BP 120 / 82; Pulse 80; Resp 16; Pulse Ox 98% on R/A; ll3 16:06 Body Mass Index 29.53 (90.72 kg, 175.26 cm) kb3 MDM: 16:16 Patient medically screened. cp 22:03 Data reviewed: vital signs, nurses notes, lab test result(s), radiologic studies, CT cp scan. 22:03 Counseling: I had a detailed discussion with the patient and/or guardian regarding: the cp historical points, exam findings, and any diagnostic results supporting the discharge/admit diagnosis, lab results, radiology results, the need for outpatient follow up, a manager documentation, to return to the emergency department if symptoms worsen or persist or if there are any questions or concerns that arise at home. ED course: VSS. Patient appears non-toxic. CT abdomen results reviewed. Will discharge to home for continued monitoring. 03/28 16:26 Order name: CBC with Diff; Complete Time: 18:45 cp 03/28 17:27 Interpretation: Normal except: RBC 4.05; HGB 9.4; HCT 29.8; MCV 73.7; MCH 23.3; MCHC cp 31.6; PLT 556; RDW 22.0; MPV 7.0; MN% 18.6; MNA 1.9. 03/28 16:26 Order name: CMP; Complete Time: 17:26 cp 03/28 21:32 Interpretation: Normal except: NA 134; K 3.1; AST 13; ALB 2.6; GLOB 4.1; A/G 0.6. cp 03/28 16:26 Order name: Lipase; Complete Time: 17:26 cp 03/28 16:26 Order name: Urine Microscopic Only; Complete Time: 18:10 cp 03/28 18:10 Interpretation: Reviewed. 03/28 17:07 Order name: Urine Dipstick-Ancillary; Complete Time: 17:26 EDMS 03/28 21:33 Interpretation: Reviewed. 03/28 18:35 Order name: CBC Smear Scan; Complete Time: 18:45 EDMS 03/28 16:42 Order name: CT Abd/Pelvis - PO and IV Contrast; Complete Time: 21:12 cp 03/28 16:26 Order name: IV Saline Lock; Complete Time: 16:37 cp 03/28 16:26 Order name: Labs collected and sent; Complete Time: 16:37 cp 03/28 16:26 Order name: Urine Dipstick-Ancillary (obtain specimen); Complete Time: 17:15 cp Administered Medications: 16:40 Drug: Zofran (Ondansetron) 4 mg Route: IVP; Site: left upper arm; kr3 16:45 Drug: Dilaudid (HYDROmorphone) 1 mg Route: IVP; Site: left upper arm; kr3 16:55 Drug: NS 0.9% 1000 ml Route: IV; Rate: 1 bolus; Site: left upper arm; kr3 19:44 Drug: Dilaudid (HYDROmorphone) 1 mg Route: IVP; Site: left forearm; ll3 20:15 Follow up: BP 117 / 71; Pulse 88 bpm; Resp 16 bpm; Pulse Ox 99% RA; Response: No ll3 adverse reaction 22:03 Drug: SOLU-Medrol (methylPrednisoLONE) 125 mg Route: IVP; Site: left forearm; ll3 22:34 Follow up: Response: No adverse reaction ll3 22:03 Drug: Potassium Effervescent Tablet 50 mEq Route: PO; ll3 22:34 Follow up: Response: No adverse reaction ll3 22:03 Drug: Benadryl (diphenhydrAMINE) 25 mg Route: IVP; Site: left forearm; ll3 22:33 Follow up: Response: No adverse reaction ll3 Disposition Summary: 03/28/22 22:03 Discharge Ordered Location: Home cp Problem: an ongoing problem cp Symptoms: have improved cp Condition: Stable cp Diagnosis - Noninfective gastroenteritis and colitis, unspecified cp Followup: cp - With: Thang Herrmann MD - When: 2 - 3 days - Reason: Recheck today's complaints Discharge Instructions: - Colitis cp - Discharge Summary Sheet mb8 Forms: - Medication Reconciliation Form cp - SBAR form mb8 - Thank You Letter cp - Antibiotic Education cp - Prescription Opioid Use cp Prescriptions: - Zofran 4 mg Oral Tablet - take 1 tablet by ORAL route every 12 hours As needed; 20 tablet; Refills: 0, cp Product Selection Permitted - Tramadol 50 mg Oral Tablet - take 1 tablet by ORAL route every 8 hours as needed; 12 tablet; Refills: 0, cp Product Selection Permitted - Prednisone 20 mg Oral Tablet - take 2 tablets by ORAL route once daily for 5 days then take 1 tablet daily for cp 3 days, then 1/2 tablet daily for 2 days; 14 tablet; Refills: 0, Product Selection Permitted Signatures: Dispatcher [employer] EDCT Kenny Mccullough PA PA cp Loubet, Lynsea RN RN ll3 Janice Blue RN RN kr3 Shanika Muir RN RN kb3 Corrections: (The following items were deleted from the chart) 16:11 16:10 Home Meds: mesalamine 400 mg Oral TbEC 2 tabs 3 times per day; kb3 kb3 21:32 18:45 Normal except: NA 134; K 3.1. cp cp
[2022-03-28 23:38] VITALS: TEMP 98.1
[2022-03-29 00:24] VITALS: BP 120/82; O2SAT 98
== END 2022-03-28 22:34 | disposition home or self-care (01) ==
LOC: ER 15:51
DX: K52.9 Noninfective gastroenteritis and colitis, unspecified (principal)
CPT/HCPCS: 36415; 74177; 80053; 81003; 81015; 83690; 85025; 99284; J1170; J1200; J2405; J2930; J7030; Q9967

== ENCOUNTER 2022-04-04 20:15 | Emergency (ER) | payer SELFPAY ==
--- OUTSIDE RECORDS SUMMARY | 2022-04-04 20:18 | XMS REPORT | Continuity of Care Document ---
:[address] [facility] t Address [address] [place] [address] Care Team Providers Name Role Phone ANA [...] DA Active U 2018-08 [facility]ie 0-17 [place] 00:00: Health 00 are [facility] Medications This patient has no known medications. Procedures This patient has no known procedures. Encounters Start End Encounter Admission Attending Care Care Encounter Source Date/Time Date/Time Type Type Clinicians Facility Department ID 2022-02-10 [facility] [id number] [place] 11:33:08 ANA [id number] [facility] 2022-01-25 [facility] [id number] [place] 15:47:07 ANA [id number] [facility] 2022-01-31 2022-01-31 Outpatient [facility] 00:00:00 00:00:00 [id number] 2022-01-30 2022-01-30 Emergency E ALEJANDRA MARCANO [facility] [id number] 18:36:00 22:28:00 JOHN manuel 2022-01-29 2022-01-30 Emergency E ALEJANDRA FERRELL [address]ANG [id number] 21:25:00 00:58:00 GREGORIO manuel 2022-01-28 2022-01-28 Emergency E ALEJANDRA FERRELL [facility] [id number] 11:02:00 14:55:00 GREGORIO manuel 2022-01-24 2022-01-27 Inpatient E ALEJANDRA ADDISON [facility] [id number] 23:12:00 15:10:00 OBIORDevi manuel 2022-01-25 2022-01-25 Outpatient [facility] 00:00:00 00:00:00 [id number] Results Test Description Test Time Test Comments Results Result Comments Source - XR CHEST 1 V 2019-05-23 Patient Name: 08:28:00 ALEX BURROUGHS Unit No: [id number] EXAMS: CPT: [id number] XR CHEST 1 V [id number] History: Chest pain CHEST 1 VIEW FINDINGS: [...] (0831) BATCH NO: N/A Name: ALEX BURROUGHS [facility] Phys: Sky Starks MD [address] : 1975 Age: 44 Sex: [place] [address] Loc: NDENISHA Exam Date: 05/23/2019 Status: REG ER PH: FAX: PAGE 1 Signed Report TROPONIN-I 2019-05-23 07:18:00 Test Item Value Reference Range Interpretation Comme nts TROPONIN-I (test code = TROPI) <0.020 ng/mL 0.000-0.034 N BASIC METABOLIC [id number] 07:14:00 Test Item Value Reference Range Interpretation [...] mg/dL 8.5-10.5 N = CA) CBC W/AUTO [id number] 07:10:00 Test Item Value Reference Range Interpretation [...]
[2022-04-04 22:23] LABS: Absolute Lymphocytes (CBC) 1.8 K/uL (0.7-4.9); Hematocrit 29.8 % (39.6-49.0); Lymphocytes % 22.4 % (15.3-44.8); MCV 73.1 fL (80-100); MPV 7.3 fL (7.6-11.3); RBC Red Blood Cell Count 4.07 M/uL (4.33-5.43)
[2022-04-04] MEDS ORDERED: MORPHINE 2 MG/ML SYR ONE (22:25)
[2022-04-04] MEDS ORDERED: ONDANSETRON 4 MG/2 ML VIAL ONE (22:25)
[2022-04-04] MEDS ORDERED: DIPHENHYDRAMINE 25 MG TAB/CAP ONE (22:25)
[2022-04-04 22:40] LABS: Albumin 2.6 g/dL (3.4-5.0); Bilirubin Total 0.3 mg/dL (0.2-1.0); Potassium 3.5 mmol/L (3.5-5.1); Protein, Total 6.5 g/dL (6.4-8.2)
[2022-04-04] MEDS ORDERED: DIPHENHYDRAMINE 50 MG/ML VIAL ONE (22:40)
--- NOTE | 2022-04-04 23:48 | EDPHYS ---
Physician Documentation [facility] Name: Wicho Weeks Age: 47 yrs Sex: Male : 1975 Arrival Date: 04/04/2022 Time: 20:17 Bed 24 Private MD: JACKIE Physician Kenny Valenzuela HPI: 04/04 23:41 This 47 yrs old Male presents to ER via Ambulatory with complaints of Bloody jl9 Stools, Diarrhea, Abdominal Pain, Itching. 23:41 Onset: The symptoms/episode began/occurred 6 month(s) ago. Associated signs and jl9 symptoms: Pertinent positives: abdominal pain. Modifying factors: The patient symptoms are alleviated by nothing, the patient symptoms are aggravated by nothing. The patient has experienced similar episodes in the past. Historical: - Allergies: 21:07 No Known Allergies; kb3 - Home Meds: 21:07 None [Active]; kb3 - PMHx: 21:07 Chronic Abdominal Pain; Colitis; kb3 - PSHx: 21:07 None; kb3 - Immunization history:: Adult Immunizations up to date, Client reports receiving the 2nd dose of the Covid vaccine, Last tetanus immunization: up to date. - Social history:: Smoking status: Patient denies any tobacco usage or history of. ROS: 23:42 Constitutional: Negative for fever, chills, and weight loss, Eyes: Negative for injury, jl9 pain, redness, and discharge, ENT: Negative for injury, pain, and discharge, Neck: Negative for injury, pain, and swelling, Cardiovascular: Negative for chest pain, palpitations, and edema, Respiratory: Negative for shortness of breath, cough, wheezing, and pleuritic chest pain. 23:42 Back: Negative for injury and pain, : Negative for injury, bleeding, discharge, and swelling, MS/Extremity: Negative for injury and deformity, Skin: Negative for injury, rash, and discoloration, Neuro: Negative for headache, weakness, numbness, tingling, and seizure, Psych: Negative for depression, anxiety, suicide ideation, homicidal ideation, and hallucinations, Allergy/Immunology: Negative for hives, rash, and allergies, Endocrine: Negative for neck swelling, polydipsia, polyuria, polyphagia, and marked weight changes, Hematologic/Lymphatic: Negative for swollen nodes, abnormal bleeding, and unusual bruising. 23:42 Abdomen/GI: Positive for abdominal pain, abdominal cramps. Exam: 23:42 Constitutional: This is a well developed, well nourished patient who is awake, alert, jl9 and in no acute distress. Head/Face: Normocephalic, atraumatic. Eyes: Pupils equal round and reactive to light, extra-ocular motions intact. Lids and lashes normal. Conjunctiva and sclera are non-icteric and not injected. Cornea within normal limits. Periorbital areas with no swelling, redness, or edema. ENT: Mucous membranes moist. Neck: Trachea midline, no thyromegaly or masses palpated, and no cervical lymphadenopathy. Supple, full range of motion without nuchal rigidity, or vertebral point tenderness. No Meningismus. Chest/axilla: Normal chest wall appearance and motion. Nontender with no deformity. No lesions are appreciated. Cardiovascular: Regular rate and rhythm with a normal S1 and S2. No gallops, murmurs, or rubs. Normal PMI, no JVD. No pulse deficits. Respiratory: Lungs have equal breath sounds bilaterally, clear to auscultation and percussion. No rales, rhonchi or wheezes noted. No increased work of breathing, no retractions or nasal flaring. 23:42 Back: No spinal tenderness. No costovertebral tenderness. Full range of motion. Skin: Warm, dry with normal turgor. Normal color with no rashes, no lesions, and no evidence of cellulitis. MS/ Extremity: Pulses equal, no cyanosis. Neurovascular intact. Full, normal range of motion. Neuro: Awake and alert, GCS 15, oriented to person, place, time, and situation. Cranial nerves II-XII grossly intact. Motor strength 5/5 in all extremities. Sensory grossly intact. Cerebellar exam normal. Normal gait. Psych: Awake, alert, with orientation to person, place and time. Behavior, mood, and affect are within normal limits. 23:42 Abdomen/GI: Inspection: abdomen appears normal, Bowel sounds: normal, Palpation: mild abdominal tenderness, Rectal exam: is unremarkable. Vital Signs: 21:02 BP 140 / 93; Pulse 100; Resp 18; Temp 99.5; Pulse Ox 100% ; Weight 89.36 kg; Height 5 kb3 ft. 7 in. (170.18 cm); Pain 10/10; 22:30 BP 126 / 92; Pulse 90; Resp 16; Pulse Ox 97% on R/A; bb 23:42 BP 113 / 63; Pulse 93; Resp 16; Pulse Ox 100% on R/A; Pain 9/10; bb 04/05 00:22 BP 116 / 62; Pulse 89; Resp 16; Temp 98.9; Pulse Ox 95% on R/A; Pain 2/10; bb 04/04 21:02 Body Mass Index 30.85 (89.36 kg, 170.18 cm) kb3 MDM: 04/04 21:[address] [facility] 23:43 Data reviewed: vital signs, nurses notes. Counseling: I had a detailed discussion with 9 the patient and/or guardian regarding: the historical points, exam findings, and any diagnostic results supporting the discharge/admit diagnosis, lab results, radiology results, the need for outpatient follow up, to return to the emergency department if symptoms worsen or persist or if there are any questions or concerns that arise at home. 23:46 Counseling: I had a detailed discussion with the patient and/or guardian regarding: jl9 Patient improved. Patient already on abx for colitis. Patient agrees to follow up with GI in 1-2 days. . 04/04 21:14 Order name: CBC with Diff; Complete Time: 00:11 [facility] 04/04 21:14 Order name: CMP; Complete Time: 23:34 [facility] 04/04 21:14 Order name: Lipase; Complete Time: 23:34 [facility] 04/04 21:14 Order name: CT Abd/Pelvis - IV Contrast Only [facility] 04/04 22:30 Order name: CBC Smear Scan; Complete Time: 00:11 [facility] 04/04 21:14 Order name: IV Saline Lock; Complete Time: 22:38 [facility] 04/04 21:14 Order name: Labs collected and sent; Complete Time: 22:38 [facility] Administered Medications: 22:30 Drug: Ondansetron 4 mg Route: IVP; Site: left antecubital; bb 23:49 Follow up: Response: No adverse reaction bb 22:32 Drug: morphine 2 mg Route: IVP; Infused Over: 4 mins; Site: left antecubital; bb 23:30 Follow up: Response: No adverse reaction; Pain is decreased bb 22:36 CANCELLED (Physician Discretion): Manuelitoryl (diphenhydrAMINE) 50 mg PO once bb 22:37 Drug: Benadryl (diphenhydrAMINE) 50 mg Route: IVP; Site: left antecubital; bb 23:49 Follow up: Response: No adverse reaction bb 23:53 Drug: Dilaudid (HYDROmorphone) 1 mg Route: IVP; Site: left antecubital; bb 04/05 00:26 Follow up: Response: Pain is decreased bb Disposition Summary: 04/04/22 23:47 Discharge Ordered Location: Home jl9 Condition: Stable jl9 Diagnosis - Noninfective gastroenteritis and colitis, unspecified jl9 Followup: jl9 - With: Private Physician - When: 1 - 2 days - Reason: Recheck today's complaints, Continuance of care, Re-evaluation by your physician Discharge Instructions: - Discharge Summary Sheet jl9 - Food Choices to Help Relieve Diarrhea, Adult jl9 - Colitis jl9 Forms: - Medication Reconciliation Form jl9 - Thank You Letter jl9 - Antibiotic Education jl9 - Prescription Opioid Use jl9 Signatures: Dispatcher [employer] EDMariaelena Huynh, RN RN Rob Ruby jl9 Shanika Muir, RN RN kb3 Corrections: (The following items were deleted from the chart) 04/04 21:07 21:07 Home Meds: mesalamine 400 mg Oral chew 2 tabs 3 times per day; kb3 kb3 22:36 22:08 Benadryl (diphenhydrAMINE) 50 mg PO once ordered. jl9 bb
--- NOTE | 2022-04-04 23:48 | ER ---
Nurse's Notes [facility] Name: Wicho Weeks Age: 47 yrs Sex: Male : 1975 Arrival Date: 04/04/2022 Time: 20:17 Bed 24 Private MD: Diagnosis: Noninfective gastroenteritis and colitis, unspecified Presentation: 04/04 21:02 Chief complaint: Patient states: Pt reports pain near rectum where he had a previous kb3 I\\T\\D done approximately 6 months ago. Pt also reports epigastric pain and diarrhea x multiple weeks for which pt has been seen in this ED numerous times. Pt also states "he feels ants crawling all over his skin.". Coronavirus screen: Vaccine status: Patient reports receiving the 2nd dose of the covid vaccine. Ebola Screen: Patient negative for fever greater than or equal to 101.5 degrees Fahrenheit, and additional compatible Ebola Virus Disease symptoms Patient denies exposure to infectious person. Patient denies travel to an Ebola-affected area in the 21 days before illness onset. No symptoms or risks identified at this time. Initial Sepsis Screen: Does the patient meet any 2 criteria? No. Patient's initial sepsis screen is negative. Does the patient have a suspected source of infection? No. Patient's initial sepsis screen is negative. Risk Assessment: Do you want to hurt yourself or someone else? Patient reports no desire to harm self or others. Onset of symptoms is unknown. 21:02 Method Of Arrival: Ambulatory kb3 21:02 Acuity: DRE 3 kb3 Triage Assessment: 21:07 General: Appears in no apparent distress. Behavior is calm, cooperative. Pain: kb3 Complains of pain in epigastric area, right upper quadrant and left upper quadrant Pain does not radiate. Pain currently is 10 out of 10 on a pain scale. Quality of pain is described as burning, pressure, sharp. Historical: - Allergies: 21:07 No Known Allergies; kb3 - Home Meds: 21:07 None [Active]; kb3 - PMHx: 21:07 Chronic Abdominal Pain; Colitis; kb3 - PSHx: 21:07 None; kb3 - Immunization history:: Adult Immunizations up to date, Client reports receiving the 2nd dose of the Covid vaccine, Last tetanus immunization: up to date. - Social history:: Smoking status: Patient denies any tobacco usage or history of. Screenin:40 Abuse screen: Denies threats or abuse. Nutritional screening: No deficits noted. bb Tuberculosis screening: No symptoms or risk factors identified. Fall Risk None identified. Assessment: 22:30 General: Appears in no apparent distress. uncomfortable, Behavior is calm, cooperative. bb Pain: Complains of pain in abdomen. Neuro: Level of Consciousness is awake, alert, obeys commands, Oriented to person, place, time, situation. Cardiovascular: Capillary refill < 3 seconds Patient's skin is warm and dry. Respiratory: Respiratory effort is even, unlabored, Respiratory pattern is regular. GI: Reports lower abdominal pain, upper abdominal pain, rectal bleeding. Derm: Skin is pink, warm \\T\\ dry. Musculoskeletal: Circulation, motion, and sensation intact. 22:48 Reassessment: pt to CT scan via wheelchair with seating and mobility technologist. bb 23:38 Reassessment: Patient is alert, oriented x 3, equal unlabored respirations, skin bb warm/dry/pink. awaiting diagnostic results. 23:47 Reassessment: provider at bedside for discussion of findings and recommendations pt to bb be discharged home pt verbalized understanding of and agrees to plan of care. 23:51 Reassessment: pt state to provider "morphine does not get rid of the pain dilaudid bb works" new orders received pt medicated see MAR will hold discharge at this time. 04/05 00:27 Reassessment: Patient is alert, oriented x 3, equal unlabored respirations, skin bb warm/dry/pink. pt verbalized understanding of and agrees to plan of care discharge instructions given pt ambulated with steady gait to exit Patient states feeling better. Patient states symptoms have improved. Vital Signs: 04/04 21:02 BP 140 / 93; Pulse 100; Resp 18; Temp 99.5; Pulse Ox 100% ; Weight 89.36 kg; Height 5 kb3 ft. 7 in. (170.18 cm); Pain 10/10; 22:30 BP 126 / 92; Pulse 90; Resp 16; Pulse Ox 97% on R/A; bb 23:42 BP 113 / 63; Pulse 93; Resp 16; Pulse Ox 100% on R/A; Pain 9/10; bb 04/05 00:22 BP 116 / 62; Pulse 89; Resp 16; Temp 98.9; Pulse Ox 95% on R/A; Pain 2/10; bb 04/04 21:02 Body Mass Index 30.85 (89.36 kg, 170.18 cm) kb3 ED Course: 04/04 20:17 Patient arrived in ED. bp1 21:07 Triage completed. kb3 21:07 Arm band placed on right wrist. kb3 21:13 [facility] Hopkins [facility]. jl9 21:13 Kenny Valenzuela MD is Attending Physician. jl9 21:48 Mariaelena Bucio RN is Primary Nurse. bb 22:30 Initial lab(s) drawn, by me, sent to lab. Missed attempt(s): 20 gauge in right bb antecubital area. Bleeding controlled, band aid applied, catheter tip intact. Inserted saline lock: 20 gauge in left antecubital area, using aseptic technique. 22:40 Patient has correct armband on for positive identification. Bed in low position. Call bb light in reach. Side rails up X2. 23:07 CT Abd/Pelvis - IV Contrast Only In Process Unspecified. EDMS 04/05 00:27 No provider procedures requiring assistance completed. IV discontinued, intact, bb bleeding controlled, No redness/swelling at site. Pressure dressing applied. Administered Medications: 04/04 22:30 Drug: Ondansetron 4 mg Route: IVP; Site: left antecubital; bb 23:49 Follow up: Response: No adverse reaction bb 22:32 Drug: morphine 2 mg Route: IVP; Infused Over: 4 mins; Site: left antecubital; bb 23:30 Follow up: Response: No adverse reaction; Pain is decreased bb 22:36 CANCELLED (Physician Discretion): Benadryl (diphenhydrAMINE) 50 mg PO once bb 22:37 Drug: Benadryl (diphenhydrAMINE) 50 mg Route: IVP; Site: left antecubital; bb 23:49 Follow up: Response: No adverse reaction bb 23:53 Drug: Dilaudid (HYDROmorphone) 1 mg Route: IVP; Site: left antecubital; bb 04/05 00:26 Follow up: Response: Pain is decreased bb Medication: 04/04 22:40 VIS not applicable for this client. bb Outcome: 23:47 Discharge ordered by . jl9 04/05 00:27 Discharged to home ambulatory. bb Condition: stable Discharge instructions given to patient, Instructed on discharge instructions, follow up and referral plans. Demonstrated understanding of instructions, follow-up care. 00:28 Patient left the ED. bb Signatures: Dispatcher [employer] Mariaelena Shepard RN RN bb Bambi Adler John jl9 Shanika Muir RN RN kb3 Corrections: (The following items were deleted from the chart) 04/04 21:07 21:07 Home Meds: mesalamine 400 mg Oral chew 2 tabs 3 times per day; kb3 kb3
[2022-04-05] LABS: Anisocytosis 1+; Blood Morphology Comment NOTED (NOT SEEN); Platelet Estimate ADEQ; White Blood Cell Scan OK (OK)
[2022-04-05] MEDS ORDERED: HYDROMORPHONE HCL 1 MG/ML INJ ONE
[2022-04-05 01:31] VITALS: BP 116/62; TEMP 98.9; O2SAT 95
--- NOTE | 2022-04-05 15:39 | RAD REPORT ---
EXAM DESCRIPTION: CT - Abdomen Pelvis W Contrast - 04/05/2022 6:40 am CLINICAL HISTORY: 47 years, Male, df abdominal pain COMPARISON: 03/28/2022 TECHNIQUE: Contrast-enhanced images of the abdomen and pelvis were performed utilizing 5 mm slice th ickness at 5 mm interval reconstruction from the lung bases to the ischial tuberosities after the adm inistration of IV contrast. In addition multiplanar reformats in the coronal and sagittal plane were obtained and reviewed. This exam was performed according to our departmental dose-optimization protocol, which includes auto mated exposure control, adjustment of the mA and/or kV according to patient size and/or use of iterat jaime reconstruction technique. FINDINGS: The lung bases demonstrate very minimal dependent atelectatic changes. The liver, gallbladder, pancreas, spleen and adrenal glands demonstrate to be unremarkable, no focal lesions are noted. The kidneys demonstrate normal uptake of contrast media. No evidence for nephrolithiasis and/or hydro nephrosis. Grossly the unopacified stomach and small bowel demonstrate to be within normal limits. There is no evidence for bowel dilatation/or free air. The appendix is normal. There is slightly less pronounc ed mucosal thickening and enhancement along the right site colon, transverse colon and descending col on when compared to prior study. The urinary bladder demonstrate to be unremarkable. The prostate gland is normal. The aorta demon strate to be normal. There is no retroperitoneal lymphadenopathy. There is no evidence for ascites/ or significant abnormal fluid collections. The rest of the soft tissue and bony structures are within normal limits. IMPRESSION: Slightly less pronounced mucosal thickening and enhancement along the right site colon, transverse colon and descending colon when compared to prior study, findings suggest mild improvement of the previous described colitis. Electronically signed by: Rob Adrian MD 04/04/2022 11:35 PM CDT Due to temporary technical issues with the PACS/Fluency reporting system, reports are being signed by the in house radiologists without review as a courtesy to insure prompt reporting. The interpreting radiologist is fully responsible for the content of the report.
== END 2022-04-05 00:28 | disposition home or self-care (01) ==
LOC: ER 20:15
DX: K52.9 Noninfective gastroenteritis and colitis, unspecified (principal)
CPT/HCPCS: 36415; 74177; 80053; 83690; 85025; 96374; 96375; 99284; J1200; J2270; J2405; Q9967

== ENCOUNTER 2022-04-05 20:20 | Emergency (ER) | payer SELFPAY ==
--- OUTSIDE RECORDS SUMMARY | 2022-04-05 20:24 | XMS REPORT | Continuity of Care Document ---
:1975 Author Organization [facility] t Address [address] [place] [address] Care Team Providers Name Role Phone ANA [...] DA Active U 2018-08 [facility] 0-17 [facility] 00:00: Health 00 are [facility] Medications This patient has no known medications. Procedures This patient has no known procedures. Encounters Start End Encounter Admission Attending Care Care Encounter Source Date/Time Date/Time Type Type Clinicians Facility Department ID 2022-02-10 Outpatient [facility] [id number] -2 [place] 11:33:08 ANA [id number] [facility] 2022-01-25 Outpatient [facility] [id number] [place] 15:47:07 ANA [id number] [facility] 2022-01-31 2022-01-31 Outpatient [facility] PIJFJJK QTO [facility] 00:00:00 00:00:00 [id number] 2022-01-30 2022-01-30 Emergency E ALEJANDRA MARCANO DANG [address] 18:36:00 22:28:00 JOHN manuel 2022-01-29 2022-01-30 Emergency E ALEJANDRA FERRELL DANG [id number] 21:25:00 00:58:00 GREGORIO manuel 2022-01-28 2022-01-28 Emergency E ALEJANDRA FERRELL [address]ANG [id number] 11:02:00 14:55:00 GREGORIO manuel 2022-01-24 2022-01-27 Inpatient E ALEJANDRA ADDISON MED [id number] 23:12:00 15:10:00 OBIORDevi manuel 2022-01-25 2022-01-25 Outpatient [facility] PIJFJJK QTO [facility] 00:00:00 00:00:00 [id number] 1 Results Test Description Test Time Test Comments Results Result Comments Source - XR CHEST 1 V 2019-05-23 Patient Name: 08:28:00 ALEX BURROUGHS Unit No: [id number] EXAMS: CPT: [id number] XR CHEST 1 V [id number] History: Chest pain CHEST 1 VIEW FINDINGS: [...] (08) by:[email or web address] Orig Print D/T: S: 05/23/2019 (08) BATCH NO: N/A Name: ALEX BURROUGHS [facility] Phys: Sky Starks MD [facility] : 1975 Age: 44 Sex: [place] [id number] Loc: N.ERS Exam Date: 05/23/2019 Status: REG ER PH: FAX: PAGE 1 Signed Report TROPONIN-I 2019-05-23 07:18:00 Test Item Value Reference Range Interpretation Comme nts TROPONIN-I (test code = TROPI) <0.020 ng/mL 0.000-0.034 N BASIC METABOLIC [id number] 07:14:00 Test Item Value Reference Range Interpretation [...] mg/dL 8.5-10.5 N = CA) CBC W/AUTO [id number] 07:10:00 Test Item Value Reference Range Interpretation [...]
--- NOTE | 2022-04-05 21:51 | EDPHYS ---
Physician Documentation [facility] Name: Wicho Weeks Age: 47 yrs Sex: Male : 1975 Arrival Date: 04/05/2022 Time: 20:21 Bed 10 Private MD: JACKIE Physician Kenny Valenzuela Historical: - Allergies: 04/05 20:29 No Known Allergies; eh3 - PMHx: 20:29 Chronic Abdominal Pain; Colitis; eh3 - PSHx: 20:29 Rectal abscess removal; 3 - Immunization history:: Adult Immunizations unknown. - Social history:: Smoking status: Patient denies any tobacco usage or history of. Patient uses alcohol, weekly. Vital Signs: 20:26 BP 146 / 94; Pulse 83; Resp 16; Temp 98.6(O); Pulse Ox 100% on R/A; Weight 86.18 kg; eh3 Height 5 ft. 9 in. (175.26 cm); Pain 10/10; 20:26 Body Mass Index 28.06 (86.18 kg, 175.26 cm) [facility] MDM: 21:17 Patient medically screened. [facility] 21:50 Data reviewed: vital signs, nurses notes. Counseling: I had a detailed discussion with aide the patient and/or guardian regarding: the historical points, exam findings, and any diagnostic results supporting the discharge/admit diagnosis, the need for outpatient follow up, to return to the emergency department if symptoms worsen or persist or if there are any questions or concerns that arise at home. Administered Medications: 22:29 Drug: Cipro (ciprofloxacin) 500 mg Route: PO; bb 22:29 Follow up: Response: Medication administered at discharge. bb 22:29 Drug: Flagyl (metroNIDAZOLE) 500 mg Route: PO; bb 22:29 Follow up: Response: Medication administered at discharge. bb Disposition Summary: 04/05/22 21:50 Discharge Ordered Location: Home [facility] Condition: Stable aide Diagnosis - Rectal Pain aide - Colitis sujey Followup: aide - With: Hunter Javier MD - When: 2 - 3 days - Reason: Recheck today's complaints, Continuance of care, Re-evaluation by your physician Discharge Instructions: - Discharge Summary Sheet aide - Colitis aide Forms: - Medication Reconciliation Form aide - Thank You Letter aide - Antibiotic Education jmm - Prescription Opioid Use [facility] Prescriptions: - Flagyl 500 mg Oral Tablet - take 1 tablet by ORAL route every 6 hours for 10 days; 40 tablet; Refills: 0, [facility] Product Selection Permitted - Cipro 500 mg Oral Tablet - take 1 tablet by ORAL route every 12 hours for 10 days; 20 tablet; Refills: 0, [facility] Product Selection Permitted - Anusol-HC 2.5 % Topical cream with perineal applicator - apply 1 application by TOPICAL route 2 times per day; 1 tube; Refills: 0, [facility] Product Selection Permitted - dicyclomine 20 mg Oral Tablet - take 1 tablet by ORAL route 4 times per day; 30 tablet; Refills: 0, Product [facility] Selection Permitted Signatures: Kenny Valenzuela MD MD cha Mickail, Joel, PA PA jmm Ballard, Brenda, RN RN bb Kalina Cardoso RN RN eh3
--- NOTE | 2022-04-05 21:51 | ER ---
Nurse's Notes [facility] Name: Wicho Weeks Age: 47 yrs Sex: Male : 1975 Arrival Date: 04/05/2022 Time: 20:21 Bed 10 Private MD: Diagnosis: Rectal Pain;Colitis Presentation: 04/05 20:26 Chief complaint: Patient states: rectal pain and bright red bleeding. Had rectal eh3 abscesses removed 6 months ago and has been bleeding since then. Coronavirus screen: Vaccine status: Patient reports being unvaccinated. Ebola Screen: No symptoms or risks identified at this time. Initial Sepsis Screen: Does the patient meet any 2 criteria? No. Patient's initial sepsis screen is negative. Does the patient have a suspected source of infection? No. Patient's initial sepsis screen is negative. Risk Assessment: Do you want to hurt yourself or someone else? Patient reports no desire to harm self or others. Onset of symptoms was October 2021. 20:26 Method Of Arrival: Ambulatory [facility] 20:26 Acuity: DRE 3 eh3 Triage Assessment: 20:29 General: Appears distressed, uncomfortable, Behavior is cooperative, appropriate for [facility] age, anxious, restless. Neuro: Level of Consciousness is awake, alert, obeys commands, Oriented to person, place, time, situation. Cardiovascular: Capillary refill < 3 seconds Patient's skin is warm and dry. Respiratory: Airway is patent Respiratory effort is even, unlabored. GI: Abdomen is round Reports lower abdominal pain, bloating, diarrhea, rectal bleeding, bloody stool, intolerance of food, nausea. : No signs and/or symptoms were reported regarding the genitourinary system. Derm: Reports burning, pain in rectum, pain increases during defecation. Musculoskeletal: Circulation, motion, and sensation intact. Range of motion: intact in all extremities. Historical: - Allergies: 20:29 No Known Allergies; eh3 - PMHx: 20:29 Chronic Abdominal Pain; Colitis; eh3 - PSHx: 20:29 Rectal abscess removal; eh3 - Immunization history:: Adult Immunizations unknown. - Social history:: Smoking status: Patient denies any tobacco usage or history of. Patient uses alcohol, weekly. Screenin:29 Abuse screen: Denies threats or abuse. Nutritional screening: No deficits noted. bb Tuberculosis screening: No symptoms or risk factors identified. Fall Risk None identified. Assessment: 22:29 General: Appears in no apparent distress. Behavior is calm, cooperative. Neuro: Level bb of Consciousness is awake, alert, obeys commands, Oriented to person, place, time, situation. Cardiovascular: Capillary refill < 3 seconds Patient's skin is warm and dry. Respiratory: Respiratory effort is even, unlabored, Respiratory pattern is regular. GI: Reports lower abdominal pain. Derm: Skin is pink, warm \T\ dry. Musculoskeletal: Circulation, motion, and sensation intact. 22:30 Reassessment: pt verbalized understanding of and agrees to plan of care discharge bb instructions given pt ambulated with steady gait to exit. Vital Signs: 20:26 BP 146 / 94; Pulse 83; Resp 16; Temp 98.6(O); Pulse Ox 100% on R/A; Weight 86.18 kg; eh3 Height 5 ft. 9 in. (175.26 cm); Pain 10/10; 20:26 Body Mass Index 28.06 (86.18 kg, 175.26 cm) 3 ED Course: 20:21 Patient arrived in ED. ag3 20:29 Triage completed. 3 20:29 Arm band placed on right wrist. 3 21:17 Giuliano Palomo, RODOLFO is Primary Nurse. as6 21:17 Jhony Marquez PA is PHCP. m 21:17 Kenny Valenzuela MD is Attending Physician. [facility] 21:50 Hunter Javier MD is Referral Physician. m 22:29 Patient has correct armband on for positive identification. bb 22:29 No provider procedures requiring assistance completed. Patient did not have IV access bb during this emergency room visit. Administered Medications: 22:29 Drug: Cipro (ciprofloxacin) 500 mg Route: PO; bb 22:29 Follow up: Response: Medication administered at discharge. bb 22:29 Drug: Flagyl (metroNIDAZOLE) 500 mg Route: PO; bb 22:29 Follow up: Response: Medication administered at discharge. bb Medication: 22:29 VIS not applicable for this client. bb Outcome: 21:50 Discharge ordered by . jmm 22:31 Discharged to home ambulatory. bb 22:31 Condition: stable 22:31 Discharge instructions given to patient, Instructed on discharge instructions, follow up and referral plans. medication usage, Demonstrated understanding of instructions, follow-up care, medications, Prescriptions given X 4. 22:31 Patient left the ED. bb Signatures: Jhony Marquez PA PA jmm Ballard, Brenda, RN RN bb Angela Otero3 Giuliano Palomo RN RN as6 Kalina Cardoso RN RN eh3
[2022-04-05] MEDS ORDERED: metroNIDAZOLE 500 MG TABLET ONE (22:29)
[2022-04-05] MEDS ORDERED: CIPROFLOXACIN HCL 500 MG TAB ONE (22:33)
[2022-04-05 23:54] VITALS: BP 146/94; TEMP 98.6; O2SAT 100
== END 2022-04-05 22:31 | disposition home or self-care (01) ==
LOC: ER 20:20
DX: K52.9 Noninfective gastroenteritis and colitis, unspecified (principal)

== ENCOUNTER 2022-04-07 20:19 | Emergency (ER) | payer SELFPAY ==
--- OUTSIDE RECORDS SUMMARY | 2022-04-07 20:22 | XMS REPORT | Continuity of Care Document ---
:1975 Author Organization [facility] t Address [address] [place] [address] Care Team Providers Name Role Phone ANA [...] DA Active U 2018-08 [facility] 0-17 [facility] 00:00: [facility] 00 are [facility] Medications This patient has no known medications. Procedures This patient has no known procedures. Encounters Start End Encounter Admission Attending Care Care Encounter Source Date/Time Date/Time Type Type Clinicians Facility Department ID 2022-02-10 Outpatient [facility] [id number] [place] 11:33:08 ANA [id number] [facility] 2022-01-25 Outpatient [facility] [id number] [place] 15:47:07 ANA [id number] [facility] 2022-01-31 2022-01-31 Outpatient [facility] PIJFJJK QTO [facility] 00:00:00 00:00:00 [id number] 2022-01-30 2022-01-30 Emergency E ALEJANDRA MARCANO DANG [id number] 18:36:00 22:28:00 JOHN manuel 2022-01-29 2022-01-30 Emergency E ALEJANDRA FERRELL [facility] [id number] 21:25:00 00:58:00 GREGORIO manuel 2022-01-28 2022-01-28 Emergency E ALEJANDRA FERRELL [address] [address] 11:02:00 14:55:00 GREGORIO manuel 2022-01-24 2022-01-27 Inpatient E [facility] [id number] 23:12:00 15:10:00 OBIORDevi manuel 2022-01-25 2022-01-25 Outpatient [facility] PIJFJJK QTO [facility] 00:00:00 00:00:00 [id number] Results Test Description Test Time Test Comments Results Result Comments Source - XR CHEST 1 V 2019-05-23 Patient Name: 08:28:00 ALEX BURROUGHS Unit No: [id number] EXAMS: CPT: [id number] XR CHEST 1 V 25060 History: Chest pain CHEST 1 VIEW FINDINGS: [...] (08) BATCH NO: N/A Name: ALEX BURROUGHS [facility] Phys: Sky Starks MD [address] [facility] : 1975 Age: 44 Sex: [place] [address] Loc: N.ERS Exam Date: 05/23/2019 Status: REG ER PH: FAX: PAGE 1 Signed Report TROPONIN-I 2019-05-23 07:18:00 Test Item Value Reference Range Interpretation Comme nts TROPONIN-I (test code = TROPI) <0.020 ng/mL 0.000-0.034 N BASIC METABOLIC [id number] 07:14:00 Test Item Value Reference Range Interpretation [...] mg/dL 8.5-10.5 N = CA) CBC W/AUTO [id number] 07:10:00 Test Item Value Reference Range Interpretation [...]
[2022-04-07] MEDS ORDERED: MORPHINE 4 MG/ML SYR ONE (22:49)
[2022-04-07] MEDS ORDERED: ONDANSETRON 4 MG/2 ML VIAL ONE (22:49)
[2022-04-07 23:25] LABS: Hematocrit 32.3 % (39.6-49.0); Lymphocytes % 29.1 % (15.3-44.8); MCV 73.2 fL (80-100); MPV 7.3 fL (7.6-11.3); RBC Red Blood Cell Count 4.41 M/uL (4.33-5.43)
[2022-04-07 23:29] LABS: Urine Blood Negative (Negative); Urine Glucose Negative (Negative); Urine Protein Trace (Negative); Urine Specific Gravity >=1.030 (1.005-1.030); Urine pH 5.5 (5.0-7.0)
[2022-04-07 23:35] LABS: Albumin 2.9 g/dL (3.4-5.0); Bilirubin Total 0.2 mg/dL (0.2-1.0); Potassium 3.3 mmol/L (3.5-5.1); Protein, Total 7.6 g/dL (6.4-8.2)
[2022-04-07] MEDS ORDERED: NA CHLORIDE 0.9% 1,000 ML ONE (23:45)
[2022-04-07] MEDS ORDERED: HYDROMORPHONE HCL 0.5 MG/0.5 ML INJ ONE (23:45)
[2022-04-07] MEDS ORDERED: METHYLPREDNISOLONE 125 MG INJ ONE (23:45)
--- NOTE | 2022-04-08 00:32 | ER ---
Nurse's Notes [facility] Name: Wicho Weeks Age: 47 yrs Sex: Male : 1975 Arrival Date: 04/07/2022 Time: 20:34 Bed 12 Private MD: Diagnosis: Colitis Presentation: 04/07 21:02 Chief complaint: Recently seen in ED for rectal bleeding and colitis, c/o worsening hb nausea, abdominal pain, and rectal bleeding. Coronavirus screen: At this time, the client does not indicate any symptoms associated with coronavirus-19. Ebola Screen: No symptoms or risks identified at this time. Risk Assessment: Do you want to hurt yourself or someone else? Patient reports no desire to harm self or others. Onset of symptoms was April 07, 2022. 21:02 Method Of Arrival: Wheelchair hb 21:02 Acuity: DRE 3 hb 21:03 Initial Sepsis Screen: Does the patient meet any 2 criteria? No. Patient's initial hb sepsis screen is negative. Does the patient have a suspected source of infection? No. Patient's initial sepsis screen is negative. Triage Assessment: 21:05 General: Appears in no apparent distress. ill, Behavior is calm, cooperative. Neuro: hb Level of Consciousness is awake, alert, obeys commands, Oriented to person, place, time, situation. Cardiovascular: Patient's skin is warm and dry. Respiratory: Respiratory effort is even, unlabored, Respiratory pattern is regular, symmetrical. Historical: - Allergies: 21:04 No Known Allergies; hb - Immunization history:: Adult Immunizations up to date. - Social history:: Smoking status: unknown. Screenin:57 Abuse screen: Denies threats or abuse. Denies injuries from another. Nutritional tw5 screening: No deficits noted. Tuberculosis screening: No symptoms or risk factors identified. Fall Risk None identified. Assessment: 22:55 General: Reports. tw5 22:56 Pain: Pain currently is 10 out of 10 on a pain scale. Neuro: Level of Consciousness is tw5 awake, alert, obeys commands, Oriented to person, place, time, situation. GI: Bowel sounds present X 4 quads. Abdomen is tender to palpation in suprapubic area, right lower quadrant and left lower quadrant. 22:57 General: Reports "I have been going like 20x a day. It is terrible it just runny and tw5 bloody.". 23:06 General: Reports "The morphine doesn't work for me, I need the Dilaudid. " Provider tw5 notifed. 23:41 Reassessment: Patient appears in no apparent distress at this time. No changes from tw5 previously documented assessment. Patient and/or family updated on plan of care and expected duration. Pain level reassessed. Patient is alert, oriented x 3, equal unlabored respirations, skin warm/dry/pink. Vital Signs: 21:02 BP 144 / 94; Pulse 100; Resp 16; Temp 99.9(O); Pulse Ox 97% on R/A; Weight 87.09 kg; hb Height 5 ft. 9 in. (175.26 cm); Pain 10/10; 23:41 BP 122 / 75; Pulse 78; Resp 18; Pulse Ox 100% on R/A; Pain 10/10; tw5 21:02 Body Mass Index 28.35 (87.09 kg, 175.26 cm) hb ED Course: 20:34 Patient arrived in ED. ja2 21:04 Triage completed. hb 21:05 Arm band placed on. hb 21:53 Kenny Mccullough PA is PHCP. cp 21:53 Kenny Valenzuela MD is Attending Physician. cp 22:35 Reny Gold is Primary Nurse. tw5 22:54 Lipase Sent. tw5 22:54 CBC with Diff Sent. tw5 22:54 CMP Sent. tw5 22:57 Initial lab(s) drawn, by me, sent to lab. Inserted saline lock: 20 gauge in right tw5 antecubital area, using aseptic technique. Blood collected. 22:57 Patient has correct armband on for positive identification. Bed in low position. Call tw5 light in reach. Door closed. 23:28 CMP Sent. tw5 23:28 Lipase Sent. tw5 23:41 No provider procedures requiring assistance completed. tw5 04/08 01:01 IV discontinued, intact, bleeding controlled, No redness/swelling at site. Pressure tw5 dressing applied. Administered Medications: 04/07 22:54 Drug: Zofran (Ondansetron) 4 mg Route: IVP; Site: right antecubital; tw5 23:07 Follow up: Response: No adverse reaction tw5 22:54 Drug: morphine 4 mg Route: IVP; Infused Over: 4 mins; Site: right antecubital; 23:07 Follow up: Response: No adverse reaction; Pain is unchanged, physician notified; RASS: Alert and Calm (0) 23:42 Drug: Dilaudid (HYDROmorphone) 1 mg Route: IVP; Site: right antecubital; 04/08 01:00 Follow up: Response: No adverse reaction; Pain is decreased; RASS: Alert and Calm (0) 04/07 23:42 Drug: NS 0.9% 1000 ml Route: IV; Rate: 1 bolus; Site: right antecubital; 23:42 Drug: SOLU-Medrol (methylPrednisoLONE) 125 mg Route: IVP; Site: right antecubital; 04/08 01:00 Follow up: Response: No adverse reaction 01:00 Drug: Potassium Effervescent Tablet 50 mEq Route: PO; 01:00 Follow up: Response: No adverse reaction Medication: 04/07 22:57 VIS not applicable for this client. Outcome: 04/08 00:31 Discharge ordered by . radha 01:00 Discharged to home ambulatory, with family. 01:00 Condition: good 01:00 Condition: good 01:00 Discharge instructions given to patient, Instructed on discharge instructions, follow up and referral plans. medication usage, Demonstrated understanding of instructions, follow-up care, medications, Prescriptions given X 4. 01:01 Patient left the ED. Signatures: Kenny Mccullough PA PA cp Baxter, Heather, Yanet Ely RN, Tiffany
--- NOTE | 2022-04-08 00:32 | EDPHYS ---
Physician Documentation [facility] Name: Wicho Weeks Age: 47 yrs Sex: Male : 1975 Arrival Date: 04/07/2022 Time: 20:34 Bed 12 Private MD: ED Physician Kenny Valenzuela HPI: 04/07 20:35 This 47 yrs old Male presents to ER via Wheelchair with complaints of cp Abdominal Pain, Rectal Bleeding. 20:35 The patient presents with abdominal pain in the lower abdomen, blood and purulent cp drainage from area of previously drained rectal abscesses. Patient reports having appt with GI next week. Report history of Colitis. Patient has been seen in this ED multiple occasions for abdominal pain, rectal bleeding with most recent visit 04-05-2022. 20:35 Associated signs and symptoms: Pertinent positives: blood in stools, constipation, cp diarrhea, Pertinent negatives: constipation, fever, hematuria, testicular pain, vomiting blood. 20:35 Severity of pain: in the emergency department the pain is unchanged despite home cp interventions. Historical: - Allergies: 21:04 No Known Allergies; hb - Immunization history:: Adult Immunizations up to date. - Social history:: Smoking status: unknown. ROS: 20:40 Constitutional: Negative for body aches, chills, fever, poor PO intake. cp 20:40 Eyes: Negative for injury, pain, redness, and discharge. cp 20:40 ENT: Negative for drainage from ear(s), ear pain, sore throat, difficulty swallowing, difficulty handling secretions. 20:40 Cardiovascular: Negative for chest pain, edema, palpitations. 20:40 Respiratory: Negative for cough, shortness of breath, wheezing. 20:40 Abdomen/GI: Positive for abdominal pain, nausea and vomiting, diarrhea, rectal pain, rectal bleeding, Negative for constipation. 20:40 : Negative for urinary symptoms, testicular pain 20:40 Neuro: Negative for altered mental status, dizziness, headache, syncope, weakness. 20:40 All other systems are negative. Exam: 20:45 Constitutional: The patient appears in no acute distress, alert, awake, non-toxic, well cp developed, well nourished. 20:45 Head/Face: Normocephalic, atraumatic. cp 20:45 Eyes: Periorbital structures: appear normal, Conjunctiva: normal, no exudate, no injection, Sclera: no appreciated abnormality, Lids and lashes: appear normal, bilaterally. 20:45 ENT: External ear(s): are unremarkable, Nose: is normal, Mouth: Lips: moist, Oral mucosa: moist, Posterior pharynx: Airway: no evidence of obstruction, patent. 20:45 Chest/axilla: Inspection: normal, Palpation: is normal, no crepitus, no tenderness. 20:45 Cardiovascular: Rate: tachycardic, Rhythm: regular. 20:45 Respiratory: the patient does not display signs of respiratory distress, Respirations: normal, no use of accessory muscles, no retractions, labored breathing, is not present, Breath sounds: are clear throughout, no decreased breath sounds, no stridor, no wheezing. 20:45 Abdomen/GI: Inspection: abdomen appears normal, Bowel sounds: active, all quadrants, Palpation: soft, in all quadrants, moderate abdominal tenderness, in all quadrants, rebound tenderness, is not appreciated, involuntary guarding, is not appreciated. 20:45 Back: pain, is absent, ROM is normal. 20:45 Neuro: Orientation: to person, place \T\ time. Mentation: is normal, Motor: moves all fours, strength is normal, Sensation: is normal. 20:45 : Rectal exam: Rectal tone: normal, Stool: brown, noted healed fistula with scant cp drainage noted, no gross abscess palpated, no external hemorrhoids noted, no gross blood on exam. Vital Signs: 21:02 BP 144 / 94; Pulse 100; Resp 16; Temp 99.9(O); Pulse Ox 97% on R/A; Weight 87.09 kg; hb Height 5 ft. 9 in. (175.26 cm); Pain 10/10; 23:41 BP 122 / 75; Pulse 78; Resp 18; Pulse Ox 100% on R/A; Pain 10/10; tw5 21:02 Body Mass Index 28.35 (87.09 kg, 175.26 cm) hb MDM: 22:29 Patient medically screened. cp 09 00:30 Data reviewed: vital signs, nurses notes, old medical records, notes from previous cp visit lab test result(s). 00:30 Counseling: I had a detailed discussion with the patient and/or guardian regarding: the cp historical points, exam findings, and any diagnostic results supporting the discharge/admit diagnosis, lab results, the need for outpatient follow up, for definitive care, a product development specialist, to return to the emergency department if symptoms worsen or persist or if there are any questions or concerns that arise at home. Response to treatment: Pain improved, and as a result, I will discharge patient. ED course: VSS. H/H stable when compared to previous visits. Patient reports he has only been taking prescribed pain meds and not antibiotics prescribed 04-05-2022. Will prescribe Cipro, Metronidazole, Medrol dose guillermo. 04/07 22:30 Order name: CBC with Diff; Complete Time: 23:30 cp 04/07 23:30 Interpretation: Normal except: WBC 6.90; HGB 10.0; HCT 32.3; MCV 73.2; MCH 22.7; MCHC cp 31.0; PLT 526; RDW 19.7; MPV 7.3; MN% 14.1. 04/07 22:30 Order name: CMP; Complete Time: 23:36 cp 04/07 23:37 Interpretation: Normal except: K 3.3; GFR 85; AST 12; ALB 2.9; GLOB 4.7; A/G 0.6. cp 04/07 22:30 Order name: Lipase; Complete Time: 23:36 cp 04/07 23:36 Interpretation: LIP 66; Reviewed. cp 04/07 23:29 Order name: Urine Dipstick-Ancillary; Complete Time: 23:30 EDMS 04/07 22:30 Order name: IV Saline Lock; Complete Time: 22:54 cp 04/07 22:30 Order name: Labs collected and sent; Complete Time: 22:54 cp 04/07 22:30 Order name: Urine Dipstick-Ancillary (obtain specimen); Complete Time: 23:28 cp Administered Medications: 04/07 22:54 Drug: Zofran (Ondansetron) 4 mg Route: IVP; Site: right antecubital; tw5 23:07 Follow up: Response: No adverse reaction tw5 22:54 Drug: morphine 4 mg Route: IVP; Infused Over: 4 mins; Site: right antecubital; tw5 23:07 Follow up: Response: No adverse reaction; Pain is unchanged, physician notified; RASS: tw5 Alert and Calm (0) 23:42 Drug: Dilaudid (HYDROmorphone) 1 mg Route: IVP; Site: right antecubital; 04/08 01:00 Follow up: Response: No adverse reaction; Pain is decreased; RASS: Alert and Calm (0) 04/07 23:42 Drug: NS 0.9% 1000 ml Route: IV; Rate: 1 bolus; Site: right antecubital; 23:42 Drug: SOLU-Medrol (methylPrednisoLONE) 125 mg Route: IVP; Site: right antecubital; 04/08 01:00 Follow up: Response: No adverse reaction 01:00 Drug: Potassium Effervescent Tablet 50 mEq Route: PO; 01:00 Follow up: Response: No adverse reaction Disposition Summary: 04/08/22 00:31 Discharge Ordered Location: Home cp Problem: an ongoing problem cp Symptoms: have improved cp Condition: Stable cp Diagnosis - Colitis cp Followup: cp - With: Private Physician - When: 1 - 2 days - Reason: Recheck today's complaints Discharge Instructions: - Discharge Summary Sheet cp - Colitis cp Forms: - Medication Reconciliation Form cp - Thank You Letter cp - Antibiotic Education cp - Prescription Opioid Use cp Prescriptions: - Tramadol 50 mg Oral Tablet - take 1 tablet by ORAL route every 8 hours as needed; 12 tablet; Refills: 0, cp Product Selection Permitted - Medrol (Guillermo) 4 mg Oral Tablets, Dose Pack - take 1 tablet by ORAL route as directed - follow package instructions; 1 cp packet; Refills: 0, Product Selection Permitted - Cipro 500 mg Oral Tablet - take 1 tablet by ORAL route every 12 hours for 10 days; 20 tablet; Refills: 0, cp Product Selection Permitted - Metronidazole 500 mg Oral Tablet - take 1 tablet by ORAL route every 8 hours; 30 tablet; Refills: 0, Product cp Selection Permitted Signatures: Dispatcher [employer] EDMS Kenny Mccullough PA PA cp Lo Ferguson RN RN hb Wood, Tiffany tw5 Corrections: (The following items were deleted from the chart) 04/07 23:36 23:36 Normal except: K 3.3; GFR 85. cp cp 23:37 23:36 Normal except: K 3.3; GFR 85; AST 12. cp cp 04/08 20:37 04/07 20:35 The patient presents with abdominal pain in the lower abdomen, cp cp
[2022-04-08] MEDS ORDERED: POTASSIUM 25 MEQ EFFERV TAB ONE (00:57)
[2022-04-08 02:59] VITALS: TEMP 99.9
[2022-04-08 03:01] VITALS: BP 122/75; O2SAT 100
== END 2022-04-08 01:01 | disposition home or self-care (01) ==
LOC: ER 20:19
DX: K52.9 Noninfective gastroenteritis and colitis, unspecified (principal)
CPT/HCPCS: 36415; 80053; 81003; 83690; 85025; 96374; 96375; 99284; J1170; J2405; J2930; J7030

== ENCOUNTER 2022-04-16 20:27 | Emergency (ER) | payer SELFPAY ==
--- OUTSIDE RECORDS SUMMARY | 2022-04-16 20:29 | XMS REPORT | Continuity of Care Document ---
:1975 Author Organization [facility] t Address [address] [place] [address] Care Team Providers Name Role Phone ANA [...] DA Active U 2018-08 [facility] All[facility] 0-17 [facility] 00:00: Health 00 are [facility] Medications This patient has no known medications. Procedures This patient has no known procedures. Encounters Start End Encounter Admission Attending Care Care Encounter Source Date/Time Date/Time Type Type Clinicians Facility Department ID 2022-02-10 Outpatient [facility] [id number] [place] 11:33:08 ANA [id number] [facility] 2022-01-25 Outpatient [facility] [id number] [place] 15:47:07 ANA [id number] [facility] 2022-01-31 2022-01-31 Outpatient [facility] PIJFJJK QTO [facility] 00:00:00 00:00:00 [id number] 2022-01-30 2022-01-30 Emergency E ALEJANDRA MARCANO DANG [id number] 18:36:00 22:28:00 JOHN manuel 2022-01-29 2022-01-30 Emergency E ALEJANDRA FERRELL [facility] [id number] 21:25:00 00:58:00 GREGORIO manuel 2022-01-28 2022-01-28 Emergency E ALEJANDRA FERRELL [address] [address] 11:02:00 14:55:00 GREGORIO manuel 2022-01-24 2022-01-27 Inpatient E A[facility]JANDRA [facility] [id number] 23:12:00 15:10:00 OBIORDevi manuel 2022-01-25 2022-01-25 Outpatient [facility] PIJFJJK QTO [facility] 00:00:00 00:00:00 [id number] Results Test Description Test Time Test Comments Results Result Comments Source - XR CHEST 1 V 2019-05-23 Patient Name: 08:28:00 ALEX BURROUGHS Unit No: [id number] EXAMS: CPT: [id number] XR CHEST 1 V 12808 History: Chest pain CHEST 1 VIEW FINDINGS: [...] (08) BATCH NO: N/A Name: ALEX BURROUGHS [facility] Phys: Sky Starks MD [address] [facility] : 1975 Age: 44 Sex: [place] [address] Loc: N.ERS Exam Date: 05/23/2019 Status: REG ER PH: FAX: PAGE 1 Signed Report TROPONIN-I 2019-05-23 07:18:00 Test Item Value Reference Range Interpretation Comme nts TROPONIN-I (test code = TROPI) <0.020 ng/mL 0.000-0.034 N BASIC METABOLIC [id number] 07:14:00 Test Item Value Reference Range Interpretation [...] mg/dL 8.5-10.5 N = CA) CBC W/AUTO [id number] 07:10:00 Test Item Value Reference Range Interpretation [...]
[2022-04-16 21:20] LABS: Hematocrit 29.8 % (39.6-49.0); Lymphocytes % 27.5 % (15.3-44.8); MCV 70.4 fL (80-100); MPV 7.4 fL (7.6-11.3); RBC Red Blood Cell Count 4.23 M/uL (4.33-5.43)
[2022-04-16 21:30] LABS: Albumin 2.9 g/dL (3.4-5.0); Bilirubin Total 0.2 mg/dL (0.2-1.0); Potassium 3.6 mmol/L (3.5-5.1); Protein, Total 7.6 g/dL (6.4-8.2)
[2022-04-16] MEDS ORDERED: ONDANSETRON 4 MG/2 ML VIAL ONE (22:17)
[2022-04-16] MEDS ORDERED: HYDROMORPHONE HCL 1 MG/ML INJ ONE (22:17)
--- NOTE | 2022-04-16 22:35 | RAD REPORT ---
EXAM DESCRIPTION: CTAbdomen Pelvis W Contrast - 04/16/2022 10:23 pm CLINICAL HISTORY: abd pain, diarrhea, blood in stool COMPARISON: Abdomen Pelvis W Contrast dated 04/04/2022; Abdomen Pelvis W Contrast dated 03/28/2022 ; Abdomen Pelvis W Contrast dated 03/07/2022; Abdomen Pelvis W Contrast dated 02/22/2022 TECHNIQUE: CT of the abdomen and pelvis was performed. All CT scans are performed using dose optimization technique as appropriate and may include automated exposure control or mA/KV adjustment according to patient size. FINDINGS: Lower chest: No acute abnormality. Liver: No acute abnormality or suspicious lesions. Biliary: No biliary ductal dilatation. Stomach: No significant focal abnormality. Duodenum: No significant focal abnormality. Pancreas: No significant abnormality. Spleen: No significant abnormality. Adrenal: No suspicious lesions. Kidney/ureter: No hydronephrosis. No renal calculi. Retroperitoneum: No retroperitoneal adenopathy. Vascular: No aneurysm. Bowel: Diffuse colonic wall thickening and hyperenhancement. The findings are grossly similar to 03/08.. Peritoneum: No ascites or free air. Bladder: Grossly unremarkable. Reproductive: No adnexal masses. Bones: No acute fracture. Other: n/a IMPRESSION: Re- demonstrated findings consistent with a pancolitis. No significant change compared w ith 04/04/2022.
--- NOTE | 2022-04-16 22:45 | ER ---
Nurse's Notes [facility] Name: Wicho Weeks Age: 47 yrs Sex: Male : 1975 Arrival Date: 04/16/2022 Time: 20:30 Bed 13 Private MD: Diagnosis: Noninfective gastroenteritis and colitis, unspecified Presentation: 04/16 20:37 Ebola Screen: No symptoms or risks identified at this time. Risk Assessment: Do you hb want to hurt yourself or someone else? Patient reports no desire to harm self or others. 20:37 Method Of Arrival: Ambulatory hb 20:37 Chief complaint: Bright red blood in stool and rectal pain x 2 days. Coronavirus hb screen: At this time, the client does not indicate any symptoms associated with coronavirus-19. Initial Sepsis Screen: Does the patient meet any 2 criteria? No. Patient's initial sepsis screen is negative. Does the patient have a suspected source of infection? No. Patient's initial sepsis screen is negative. Onset of symptoms was April 15, 2022. 20:37 Acuity: DRE 3 hb Historical: - Allergies: 20:37 No Known Allergies; hb - PMHx: 20:37 Chronic Abdominal Pain; Colitis; hb - PSHx: 20:37 Rectal abscess removal; hb - Immunization history:: Adult Immunizations up to date. - Social history:: Smoking status: Patient denies any tobacco usage or history of. - Family history:: not pertinent. - Hospitalizations: : No recent hospitalization is reported. Screenin:57 Abuse screen: Denies threats or abuse. Denies injuries from another. Nutritional hb screening: No deficits noted. Tuberculosis screening: No symptoms or risk factors identified. Fall Risk None identified. Assessment: 20:58 General: Appears in no apparent distress. Behavior is calm, cooperative. Pain: Pain hb currently is 10 out of 10 on a pain scale. Neuro: Level of Consciousness is awake, alert, obeys commands, Oriented to person, place, time, situation. Cardiovascular: Patient's skin is warm and dry. Respiratory: Respiratory effort is even, unlabored, Respiratory pattern is regular, symmetrical. GI: Reports rectal bleeding, bloody stool. : No signs and/or symptoms were reported regarding the genitourinary system. EENT: No signs and/or symptoms were reported regarding the EENT system. Derm: Skin is pink, warm \T\ dry. Musculoskeletal: No signs and/or symptoms reported regarding the musculoskeletal system. 22:00 Reassessment: Patient appears in no apparent distress at this time. Patient and/or jb4 family updated on plan of care and expected duration. Pain level reassessed. Patient is alert, oriented x 3, equal unlabored respirations, skin warm/dry/pink. 23:00 Reassessment: Patient appears in no apparent distress at this time. Patient and/or jb4 family updated on plan of care and expected duration. Pain level reassessed. Patient is alert, oriented x 3, equal unlabored respirations, skin warm/dry/pink. Vital Signs: 20:37 BP 132 / 97; Pulse 113; Resp 16; Temp 97.4; Pulse Ox 100% ; Weight 90.72 kg; Height 5 hb ft. 9 in. (175.26 cm); Pain 10/10; 22:00 BP 138 / 90; Pulse 80; Resp 16; Pulse Ox 98% on R/A; jb4 23:15 BP 134 / 91; Pulse 84; Resp 16; Pulse Ox 100% on R/A; jb4 20:37 Body Mass Index 29.54 (90.72 kg, 175.26 cm) hb ED Course: 20:30 Patient arrived in ED. ja2 20:33 Damien Garvey MD is Attending Physician. rn 20:40 Triage completed. hb 20:40 Arm band placed on. hb 20:50 Inserted saline lock: 20 gauge in right antecubital area, using aseptic technique. hb Blood collected. 21:15 Patient has correct armband on for positive identification. Placed in gown. Bed in low jb4 position. Call light in reach. Side rails up X 1. Client placed on continuous cardiac and pulse oximetry monitoring. NIBP monitoring applied. 22:24 CT Abd/Pelvis - IV Contrast Only In Process Unspecified. EDMS 23:25 No provider procedures requiring assistance completed. IV discontinued, intact, jb4 bleeding controlled, No redness/swelling at site. Pressure dressing applied. Administered Medications: 22:14 Drug: Zofran (Ondansetron) 4 mg Route: IVP; Site: right antecubital; jb4 22:17 Drug: Dilaudid (HYDROmorphone) 1 mg Route: IVP; Site: right antecubital; jb4 22:56 Drug: [place] (HYDROcodone-acetaminophen) 10 mg-325 mg 1 tabs Route: PO; ke1 22:56 Drug: Benadryl (diphenhydrAMINE) 25 mg Route: IVP; Site: right antecubital; ke1 Medication: 22:00 VIS not applicable for this client. jb4 Outcome: 22:44 Discharge ordered by . rn 23:25 Discharged to home ambulatory, with family. jb4 23:25 Condition: stable 23:25 Discharge instructions given to patient, Instructed on discharge instructions, follow up and referral plans. medication usage, Demonstrated understanding of instructions, follow-up care, medications, Prescriptions given X 1. 23:26 Patient left the ED. jb4 Signatures: Dispatcher [employer] EDMS Damien Garvey MD MD rn Baxter, Heather, RN RN hb Bryson, James, RN RN jb4 Yanet Espana Kouassi, RN RN ke1 Corrections: (The following items were deleted from the chart) 22:32 20:50 Inserted saline lock: 20 gauge in left antecubital area, using aseptic technique. hb Blood collected. hb
--- NOTE | 2022-04-16 22:45 | EDPHYS ---
Physician Documentation [facility] Name: Wicho Weeks Age: 47 yrs Sex: Male : 1975 Arrival Date: 04/16/2022 Time: 20:30 Bed 13 Private MD: ED Physician Damien Garvey HPI: 04/16 20:54 This 47 yrs old Male presents to ER via Ambulatory with complaints of rn Diarrhea, GI Bleeding. 20:54 The patient presents to the emergency department with diarrhea, abdominal pain. Onset: rn The symptoms/episode began/occurred 1 week(s) ago. Possible causes: flare up of bowel problem. The symptoms are aggravated by bowel movement The symptoms are alleviated by nothing. Associated signs and symptoms: Pertinent positives: GI bleeding, rectal pain. Severity of symptoms: At their worst the symptoms were moderate in the emergency department the symptoms are unchanged. The patient has experienced a previous episode. The patient has not recently seen a physician. Pt reports hx of colitis and rectal abscess, came in last week, surgery was recommended and declined, states felt like got better with warm baths and abx, but now feels more swollen and painful like before. Reports abd cramping and diarrhea. . Historical: - Allergies: 20:37 No Known Allergies; hb - PMHx: 20:37 Chronic Abdominal Pain; Colitis; hb - PSHx: 20:37 Rectal abscess removal; hb - Immunization history:: Adult Immunizations up to date. - Social history:: Smoking status: Patient denies any tobacco usage or history of. - Family history:: not pertinent. - Hospitalizations: : No recent hospitalization is reported. ROS: 20:54 Constitutional: Negative for fever, chills, and weight loss, Eyes: Negative for injury, rn pain, redness, and discharge, Neck: Negative for injury, pain, and swelling, Cardiovascular: Negative for chest pain, palpitations, and edema, Respiratory: Negative for shortness of breath, cough, wheezing, and pleuritic chest pain, Abdomen/GI: + abd pain and diarrhea, some blood in stool, + rectal pain Back: Negative for injury and pain, : Negative for injury, bleeding, discharge, and swelling, MS/Extremity: Negative for injury and deformity, Skin: Negative for injury, rash, and discoloration, Neuro: Negative for headache, numbness, tingling, and seizure. Exam: 20:56 Constitutional: This is a well developed, well nourished patient who is awake, alert, rn and in no acute distress. Head/Face: Normocephalic, atraumatic. Eyes: Pale conjunctivae Cardiovascular: Tachycardic, regular. No pulse deficits. Respiratory: No increased work of breathing, no retractions or nasal flaring. Abdomen/GI: Soft, non-tender Skin: Warm, dry MS/ Extremity: Pulses equal, no cyanosis. Neuro: Awake and alert, GCS 15 Vital Signs: 20:37 BP 132 / 97; Pulse 113; Resp 16; Temp 97.4; Pulse Ox 100% ; Weight 90.72 kg; Height 5 hb ft. 9 in. (175.26 cm); Pain 10/10; 22:00 BP 138 / 90; Pulse 80; Resp 16; Pulse Ox 98% on R/A; jb4 23:15 BP 134 / 91; Pulse 84; Resp 16; Pulse Ox 100% on R/A; jb4 20:37 Body Mass Index 29.54 (90.72 kg, 175.26 cm) hb MDM: 20:34 Patient medically screened. rn 22:42 Differential diagnosis: Nonspecific abd pain, viral gastroenteritis, gastroenteritis, rn Colitis, chaz-rectal abscess. Data reviewed: vital signs, nurses notes, lab test result(s), radiologic studies, CT scan, and as a result, I will discharge patient. Counseling: I had a detailed discussion with the patient and/or guardian regarding: the historical points, exam findings, and any diagnostic results supporting the discharge/admit diagnosis, lab results, radiology results, the need for outpatient follow up, to return to the emergency department if symptoms worsen or persist or if there are any questions or concerns that arise at home. Response to treatment: the patient's symptoms have markedly improved after treatment, and as a result, I will discharge patient. Special discussion: Based on the patient's Hx, exam, and Dx evaluation, there is no indication for emergent surgery or inpatient Tx. It is understood by the patient/guardian that if the Sx's persist or worsen they need to return immediately for re-evaluation. I discussed with the patient/guardian in detail that at this point there is no indication for admission to the hospital. It is understood, however, that if the symptoms persist or worsen the patient needs to return immediately for re-evaluation. Based on the history and exam findings, there is no indication for further emergent testing or inpatient evaluation. I discussed with the patient/guardian the need to see the operations and maintenance technican for further evaluation of the symptoms. ED course: CT without evidence of chaz-rectal abscess, no abscess on examination. CT still shows colitis, likely non-infective, does not respond to abx, already has GI appt scheduled. Will dc home with pain medication as he said tylenol with codeine helped his symptoms last time.. 04/16 20:34 Order name: CBC with Diff; Complete Time: 21:31 rn 04/16 20:34 Order name: CMP; Complete Time: : rn 04/16 20:34 Order name: Lipase; Complete Time: : rn 04/16 20:34 Order name: CT Abd/Pelvis - IV Contrast Only; Complete Time: 22:37 rn 04/16 20:34 Order name: IV Saline Lock; Complete Time: 21:07 rn 04/16 20:34 Order name: Labs collected and sent; Complete Time: 21:07 rn Administered Medications: 22:14 Drug: Zofran (Ondansetron) 4 mg Route: IVP; Site: right antecubital; jb4 22:17 Drug: Dilaudid (HYDROmorphone) 1 mg Route: IVP; Site: right antecubital; jb4 22:56 Drug: [place] (HYDROcodone-acetaminophen) 10 mg-325 mg 1 tabs Route: PO; ke1 22:56 Drug: Benadryl (diphenhydrAMINE) 25 mg Route: IVP; Site: right antecubital; ke1 Disposition Summary: 04/16/22 22:44 Discharge Ordered Location: Home rn Problem: an ongoing problem rn Symptoms: have improved rn Condition: Stable rn Diagnosis - Noninfective gastroenteritis and colitis, unspecified rn Followup: rn - With: Private Physician - When: As needed - Reason: Recheck today's complaints, Re-evaluation by your physician Discharge Instructions: - Discharge Summary Sheet rn - Colitis rn Forms: - Medication Reconciliation Form rn - Thank You Letter rn - Antibiotic harness cleaner - Prescription Opioid Use rn Prescriptions: - Tylenol-Codeine #3 300 mg-30 mg Oral - take 1 tablet by ORAL route every 6-8 hours As needed; 12 tablet; Refills: 0, rn Product Selection Permitted Signatures: Dispatcher [employer] Mariaelena Shepard, RN RN Damien Ba MD MD rn Baxter, Heather RN RN Torres Bojorquez RN RN jb4 Alan Carrion RN RN ke1
[2022-04-16] MEDS ORDERED: DIPHENHYDRAMINE 50 MG/ML VIAL ONE (23:02)
[2022-04-16] MEDS ORDERED: HYDROCODONE/APAP 10/325 TAB ONE (23:02)
[2022-04-17 03:53] VITALS: TEMP 97.4
[2022-04-17 04:08] VITALS: BP 134/91; O2SAT 100
== END 2022-04-16 23:26 | disposition home or self-care (01) ==
LOC: ER 20:27
DX: K52.9 Noninfective gastroenteritis and colitis, unspecified (principal)
CPT/HCPCS: 36415; 74177; 80053; 83690; 85025; 96374; 96375; 99284; J1170; J1200; J2405; Q9967

== ENCOUNTER 2022-04-19 20:26 | Emergency (ER) | payer SELFPAY ==
--- OUTSIDE RECORDS SUMMARY | 2022-04-19 20:28 | XMS REPORT | Continuity of Care Document ---
:1975 Author Organization [facility] t Address [address] [place] [address] Care Team Providers Name Role Phone ANA [...] DA Active U 2018-08 [facility] All[facility]ie 0-17 [place] 00:00: [facility] Medications This patient has no known medications. Procedures This patient has no known procedures. Encounters Start End Encounter Admission Attending Care Care Encounter Source Date/Time Date/Time Type Type Clinicians Facility Department ID 2022-02-10 [facility] [id number] [place] 11:33:08 ANA [id number] [facility] 2022-01-25 [facility] [id number] [place] 15:47:07 ANA [id number] [facility] 2022-01-31 2022-01-31 Outpatient [facility] PIJFJJK QTO [facility] 00:00:00 00:00:[address] [id number] 2022-01-30 2022-01-30 Emergency E ALEJANDRA MARCANO [facility] [id number] 18:36:00 22:28:00 JOHN manuel 2022-01-29 2022-01-30 Emergency E ALEJANDRA FERRELL [facility] [id number] 21:25:00 00:58:00 GREGORIO manuel 2022-01-28 2022-01-28 Emergency E ALEJANDRA FERRELL [facility] [id number] 11:02:00 14:55:00 GREGORIO manuel 2022-01-24 2022-01-27 Inpatient E ALEJANDRA ADDISON [facility] [id number] 23:12:00 15:10:00 OBIORDevi manuel 2022-01-25 2022-01-25 Outpatient [facility] PIJFJJK QTO [facility] 00:00:00 00:00:[address] [id number] Results Test Description Test Time Test Comments Results Result Comments Source - XR CHEST 1 V 2019-05-23 Patient Name: 08:28:00 ALEX BURROUGHS Unit No: [id number] EXAMS: CPT: [id number] XR CHEST 1 V 81291 History: Chest pain CHEST 1 VIEW FINDINGS: [...] (0831) BATCH NO: N/A Name: ALEX BURROUGHS [facility] Phys: Sky Starks MD [address] : 1975 Age: 44 Sex: [place] [address] Loc: NDENISHA Exam Date: 05/23/2019 Status: REG ER PH: FAX: PAGE 1 Signed Report TROPONIN-I 2019-05-23 07:18:00 Test Item Value Reference Range Interpretation Comme nts TROPONIN-I (test code = TROPI) <0.020 ng/mL 0.000-0.034 N BASIC METABOLIC [id number] 07:14:00 Test Item Value Reference Range Interpretation [...] mg/dL 8.5-10.5 N = CA) CBC W/AUTO [id number] 07:10:00 Test Item Value Reference Range Interpretation [...]
[2022-04-19] MEDS ORDERED: MORPHINE 4 MG/ML SYR ONE (22:27)
[2022-04-19] MEDS ORDERED: ONDANSETRON 4 MG/2 ML VIAL ONE (22:27)
[2022-04-19] MEDS ORDERED: FAMOTIDINE 20 MG/2 ML VIAL IV ONE (22:27)
[2022-04-19 23:10] LABS: Absolute Lymphocytes (CBC) 1.7 K/uL (0.7-4.9); Hematocrit 27.3 % (39.6-49.0); Lymphocytes % 32.6 % (15.3-44.8); MCV 70.3 fL (80-100); MPV 7.4 fL (7.6-11.3); RBC Red Blood Cell Count 3.88 M/uL (4.33-5.43)
[2022-04-19 23:21] LABS: Albumin 2.8 g/dL (3.4-5.0); Bilirubin Total 0.2 mg/dL (0.2-1.0); Potassium 3.2 mmol/L (3.5-5.1)
--- NOTE | 2022-04-19 23:57 | EDPHYS ---
Physician Documentation [facility] Name: Wicho Weeks Age: 47 yrs Sex: Male : 1975 Arrival Date: 04/19/2022 Time: 20:30 Bed 15 Private MD: ED Physician Sky Vasquez HPI: 04/20 19:41 This 47 yrs old Male presents to ER via Ambulatory with complaints of Bloody kdr Stools, General Weakness. 19:41 The patient presents with abdominal pain Patient is seen here multiple times for kdr abdominal pain. He states that he has colitis and that he has an abscess or leaking fistula from his rectum. He also complains of bloody stools. His complaints are unchanged from prior visits.. Onset: The symptoms/episode began/occurred gradually, 3 day(s) ago. The symptoms do not radiate. Associated signs and symptoms: Pertinent positives: blood in stools, nausea. The symptoms are described as achy, crampy, intermittent, vague, waxing/waning. Modifying factors: The symptoms are alleviated by nothing, the symptoms are aggravated by coughing, movement, touching the area. Severity of pain: At its worst the pain was moderate severe just prior to arrival, in the emergency department the pain is unchanged Patient chronically presents with similar complaints and severity. The patient has experienced similar episodes in the past, chronically. The patient has been recently seen at the [facility] Emergency Department, last week. Historical: - PMHx: 04/19 20:57 Chronic Abdominal Pain; Colitis; [facility] - PSHx: 20:57 Rectal abscess removal; [facility] - Immunization history:: Adult Immunizations up to date. - Social history:: Smoking status: Patient denies any tobacco usage or history of. ROS: 04/20 19:41 Constitutional: Negative for fever, chills, and weight loss, Eyes: Negative for injury, kdr pain, redness, and discharge, Neck: Negative for injury, pain, and swelling, Cardiovascular: Negative for chest pain, palpitations, and edema, Respiratory: Negative for shortness of breath, cough, wheezing, and pleuritic chest pain, Back: Negative for injury and pain, : Negative for injury, bleeding, discharge, and swelling, MS/Extremity: Negative for injury and deformity, Skin: Negative for injury, rash, and discoloration, Neuro: Negative for headache, weakness, numbness, tingling, and seizure activity. Psych: Negative for depression, anxiety, suicide ideation, homicidal ideation, and hallucinations, Allergy/Immunology: Negative for hives, rash, and allergies, Endocrine: Negative for neck swelling, polydipsia, polyuria, polyphagia, and marked weight changes, Hematologic/Lymphatic: Negative for swollen nodes, abnormal bleeding, and unusual bruising. Abdomen/GI: Positive for abdominal pain, nausea, rectal pain, rectal bleeding. Exam: 19:41 Constitutional: This is a well developed, well nourished patient who is awake, alert, kdr and in no acute distress. Head/Face: Normocephalic, atraumatic. Eyes: Pupils equal round and reactive to light, extra-ocular motions intact. Lids and lashes normal. Conjunctiva and sclera are non-icteric and not injected. Cornea within normal limits. Periorbital areas with no swelling, redness, or edema. Neck: Trachea midline, no thyromegaly or masses palpated, and no cervical lymphadenopathy. Supple, full range of motion without nuchal rigidity, or vertebral point tenderness. No Meningismus. Chest/axilla: Normal chest wall appearance and motion. Nontender with no deformity. No lesions are appreciated. Cardiovascular: Regular rate and rhythm with a normal S1 and S2. No gallops, murmurs, or rubs. Normal PMI, no JVD. No pulse deficits. Respiratory: Lungs have equal breath sounds bilaterally, clear to auscultation and percussion. No rales, rhonchi or wheezes noted. No increased work of breathing, no retractions or nasal flaring. Back: No spinal tenderness. No costovertebral tenderness. Full range of motion. Skin: Warm, dry with normal turgor. Normal color with no rashes, no lesions, and no evidence of cellulitis. MS/ Extremity: Pulses equal, no cyanosis. Neurovascular intact. Full, normal range of motion. Neuro: Awake and alert, GCS 15, oriented to person, place, time, and situation. Cranial nerves II-XII grossly intact. Motor strength 5/5 in all extremities. Sensory grossly intact. Cerebellar exam normal. Normal gait. Psych: Awake, alert, with orientation to person, place and time. Behavior, mood, and affect are within normal limits. 19:41 Abdomen/GI: Rectal exam: rectal tone normal, Stool: normal, guaiac negative. Vital Signs: 04/19 20:54 BP 120 / 88; Pulse 74; Resp 16; Temp 98.6; Weight 86.18 kg; Height 5 ft. 9 in. (175.26 jh5 cm); Pain 10/10; 23:37 BP 127 / 84; Pulse 68; Resp 17 S; Pulse Ox 99% on R/A; lg3 20:54 Body Mass Index 28.06 (86.18 kg, 175.26 cm) jh5 MDM: 23:56 Patient medically screened. kdr 04/20 19:41 Data reviewed: vital signs, nurses notes, lab test result(s). ED course: I had kdr extensive conversation with the patient about his ongoing abdominal pain issues. Further that given that he has been radiated multiple times with little or no change, that further CT testing without significant changes in his presentation and symptoms would not be in his best health interest. I further suggested and have given him in reference a list of the local pain management physicians. I have strongly suggested that he follow-up with them to prevent further ED visits for these issues. I emphasized that they of course if he does get worse in any way that he is welcome to be reevaluated and treated however the ongoing waxing waning of the similar problems best served with pain management. 04/19 22:05 Order name: CBC with Diff kdr 04/19 22:05 Order name: CMP kdr 04/19 22:05 Order name: Lipase kdr 04/19 23:15 Order name: CBC Smear Scan EDMS 04/19 22:05 Order name: IV Saline Lock; Complete Time: 22:47 kdr 04/19 22:05 Order name: Labs collected and sent; Complete Time: 22:47 kdr Administered Medications: 04/19 22:47 Drug: Zofran (Ondansetron) 4 mg Route: IVP; Site: left antecubital; lg3 23:35 Follow up: Response: No adverse reaction lg3 22:47 Drug: Pepcid (famotidine) 20 mg Route: IVP; Site: left antecubital; lg3 23:35 Follow up: Response: No adverse reaction lg3 22:48 Drug: morphine 4 mg Route: IVP; Infused Over: 4 mins; Site: left antecubital; lg3 23:35 Follow up: Response: No adverse reaction; Pain is unchanged, physician notified lg3 04/20 00:13 Drug: Dilaudid (HYDROmorphone) 1 mg Route: IVP; Site: left antecubital; lg3 00:36 Follow up: Response: No adverse reaction; Pain is decreased lg3 Disposition Summary: 04/19/22 23:56 Discharge Ordered Location: Home kdr Problem: an ongoing problem kdr Symptoms: have improved kdr Condition: Stable kdr Diagnosis - Abdominal pain, Generalized kdr - Rectal pain kdr Followup: kdr - With: Private Physician - When: 2 - 3 days - Reason: If symptoms return, Further diagnostic work-up, Recheck today's complaints, Continuance of care, Re-evaluation by your physician Discharge Instructions: - Discharge Summary Sheet kdr - Abdominal Pain, Adult, [id number] kdr Forms: - Medication Reconciliation Form kdr - Thank You Letter kdr - Antibiotic Education kdr Prescriptions: - Flagyl 500 mg Oral Tablet - take 1 tablet by ORAL route every 8 hours for 10 days; 30 tablet; Refills: 0, kdr Product Selection Permitted - Cipro 500 mg Oral Tablet - take 1 tablet by ORAL route every 12 hours for 7 days; 14 tablet; Refills: 0, kdr Product Selection Permitted - Tramadol 50 mg Oral Tablet - take 1 tablet by ORAL route every 8 hours as needed; 12 tablet; Refills: 0, kdr Product Selection Permitted - Medrol (Guillermo) 4 mg Oral Tablets, Dose Pack - take 1 tablet by ORAL route as directed - follow package instructions; 1 kdr packet; Refills: 0, Product Selection Permitted Signatures: Dispatcher [employer] Sky Serrano MD MD kdr Consuelo Cast, RN RN lg3 Yanet Wick RN RN jh5
--- NOTE | 2022-04-19 23:57 | ER ---
Nurse's Notes [facility] Name: Wicho Weeks Age: 47 yrs Sex: Male : 1975 Arrival Date: 04/19/2022 Time: 20:30 Bed 15 Private MD: Diagnosis: Abdominal pain, Generalized;Rectal pain Presentation: 04/19 20:54 Chief complaint: Patient states: I have colitis problem and abscess in my butt and now jh5 I have a lot of pain and constantly bleeding; im going like 20 times in the bottom; I have pain in the top and bottom of my bottom. Coronavirus screen: Vaccine status: Patient reports being unvaccinated. Client denies travel out of the [place] in the last 14 days. Ebola Screen: Patient negative for fever greater than or equal to 101.5 degrees Fahrenheit, and additional compatible Ebola Virus Disease symptoms Patient denies exposure to infectious person. Patient denies travel to an Ebola-affected area in the 21 days before illness onset. Initial Sepsis Screen: Does the patient meet any 2 criteria? No. Patient's initial sepsis screen is negative. Does the patient have a suspected source of infection? No. Patient's initial sepsis screen is negative. Risk Assessment: Do you want to hurt yourself or someone else? Patient reports no desire to harm self or others. Onset of symptoms. 20:54 Method Of Arrival: Ambulatory [facility] 20:54 Acuity: DRE 3 jh5 Triage Assessment: 20:57 General: Appears in no apparent distress. well groomed, well developed, Behavior is 5 calm, cooperative, appropriate for age. Pain: Complains of pain in abdomen. GI: Abdomen is flat, Bowel sounds present X 4 quads. Historical: - PMHx: 20:57 Chronic Abdominal Pain; Colitis; 5 - PSHx: 20:57 Rectal abscess removal; 5 - Immunization history:: Adult Immunizations up to date. - Social history:: Smoking status: Patient denies any tobacco usage or history of. Screenin:40 Abuse screen: Denies threats or abuse. Denies injuries from another. Nutritional lg3 screening: No deficits noted. Tuberculosis screening: No symptoms or risk factors identified. Fall Risk None identified. Assessment: 21:40 General: Appears in no apparent distress. uncomfortable, Behavior is cooperative, lg3 fussy, restless. Pain: Pain: Complains of pain in abdomen and anus Pain currently is 10 out of 10 on a pain scale. Alleviated by medications, Noted to be grimacing, moaning, resistant to movement, Current management is with. Neuro: No deficits noted. Level of Consciousness is awake, alert, obeys commands, Oriented to person, place, time, situation. Cardiovascular: No deficits noted. Denies chest pain, shortness of breath, Capillary refill < 3 seconds Clubbing of nail beds is absent JVD is absent Patient's skin is warm and dry. Respiratory: No deficits noted. Airway is patent Trachea midline Respiratory effort is even, unlabored, Respiratory pattern is regular, symmetrical, Breath sounds are clear bilaterally. GI: Abdomen is round non-distended, Bowel sounds present X 4 quads. Reports upper abdominal pain, bloating, cramping, diarrhea, rectal bleeding, bloody stool, intolerance of fluids, intolerance of food, nausea. : No deficits noted. No signs and/or symptoms were reported regarding the genitourinary system. EENT: No deficits noted. No signs and/or symptoms were reported regarding the EENT system. Derm: No deficits noted. No signs and/or symptoms reported regarding the dermatologic system. Skin is intact, is healthy with good turgor, Skin is dry, Skin is normal, Skin temperature is warm. Musculoskeletal: No deficits noted. No signs and/or symptoms reported regarding the musculoskeletal system. Circulation, motion, and sensation intact. Range of motion: intact in all extremities, Reports generalized weakness. 23:23 Reassessment: Patient appears in no apparent distress at this time. No changes from lg3 previously documented assessment. Patient and/or family updated on plan of care and expected duration. Pain level reassessed. Patient is alert, oriented x 3, equal unlabored respirations, skin warm/dry/pink. 04/20 00:35 Reassessment: Patient appears in no apparent distress at this time. No changes from lg3 previously documented assessment. Patient and/or family updated on plan of care and expected duration. Pain level reassessed. Patient is alert, oriented x 3, equal unlabored respirations, skin warm/dry/pink. Vital Signs: 04/19 20:54 BP 120 / 88; Pulse 74; Resp 16; Temp 98.6; Weight 86.18 kg; Height 5 ft. 9 in. (175.26 5 cm); Pain 10/10; 23:37 BP 127 / 84; Pulse 68; Resp 17 S; Pulse Ox 99% on R/A; lg3 20:54 Body Mass Index 28.06 (86.18 kg, 175.26 cm) 5 ED Course: 20:30 Patient arrived in ED. jj6 20:57 Triage completed. 5 20:57 Arm band placed on right wrist. 5 21:40 Patient has correct armband on for positive identification. Placed in gown. Bed in low lg3 position. Call light in reach. Side rails up X2. Client placed on continuous cardiac and pulse oximetry monitoring. NIBP monitoring applied. secured entrance monitor on. Door closed. Noise minimized. Warm blanket given. 21:46 Sky Vasquez MD is Attending Physician. kdr 22:44 Consuelo Cast RN is Primary Nurse. lg3 22:48 Inserted saline lock: 18 gauge in left antecubital area, using aseptic technique. Blood as6 collected. 22:48 CBC with Diff Sent. lg3 22:48 CMP Sent. lg3 22:48 Lipase Sent. lg3 09 00:35 No provider procedures requiring assistance completed. IV discontinued, intact, lg3 bleeding controlled, No redness/swelling at site. Pressure dressing applied. Administered Medications: 04/19 22:47 Drug: Zofran (Ondansetron) 4 mg Route: IVP; Site: left antecubital; lg3 23:35 Follow up: Response: No adverse reaction lg3 22:47 Drug: Pepcid (famotidine) 20 mg Route: IVP; Site: left antecubital; lg3 23:35 Follow up: Response: No adverse reaction lg3 22:48 Drug: morphine 4 mg Route: IVP; Infused Over: 4 mins; Site: left antecubital; lg3 23:35 Follow up: Response: No adverse reaction; Pain is unchanged, physician notified lg3 04/20 00:13 Drug: Dilaudid (HYDROmorphone) 1 mg Route: IVP; Site: left antecubital; lg3 00:36 Follow up: Response: No adverse reaction; Pain is decreased 3 Medication: 00:36 VIS not applicable for this client. lg3 Outcome: 09/13 23:56 Discharge ordered by . kdr 04/20 00:35 Discharged to home ambulatory. lg3 Condition: stable Discharge instructions given to patient, Instructed on discharge instructions, follow up and referral plans. medication usage, Demonstrated understanding of instructions, follow-up care, medications, Prescriptions given X 4. 00:51 Patient left the ED. lg3 Signatures: Sky Vasquez MD MD kdr Gibson, Lacie, RN RN lg3 Mariah [id number] Yanet Wick, RN RN jh5 Giuliano Palomo, RN RN as6
[2022-04-20] MEDS ORDERED: HYDROMORPHONE HCL 1 MG/ML INJ ONE (00:20)
[2022-04-20 00:46] LABS: Anisocytosis 2+; Blood Morphology Comment NOTED (NOT SEEN); Platelet Estimate ADEQ; White Blood Cell Scan OK (OK)
[2022-04-20 16:02] VITALS: TEMP 98.6
[2022-04-20 16:04] VITALS: BP 127/84; O2SAT 99
== END 2022-04-20 00:51 | disposition home or self-care (01) ==
LOC: ER 20:26
DX: R10.84 Generalized abdominal pain (principal); K62.89 Other specified diseases of anus and rectum
CPT/HCPCS: 36415; 80053; 83690; 85025; 96374; 96375; 99284; J1170; J2405

== ENCOUNTER 2022-07-12 20:32 | Emergency (ER) | payer SELFPAY ==
--- OUTSIDE RECORDS SUMMARY | 2022-07-12 20:39 | XMS REPORT | Continuity of Care Document ---
:1975 Author Organization [facility] t Address [address] [place] [address] Care Team Providers Name Role Phone Dean Higginbotham MD Primary Care Physician [phone] ANA PEACOCK Attending Clinician Unavailable JUSTIN BAPTISTE Attending Clinician Unavailable Justin Baptiste MD Attending Clinician Doctor Unassigned, [place] Attending Clinician Unavailable RAYRAY GAMEZ Attending Clinician Unavailable Romie Lewis MD Attending Clinician Jaci Estrella DO Attending Clinician Rayray Gamez MD Attending Clinician Marybel Sexton MD Attending Clinician CONSTANTINO OKEEFE Attending Clinician Unavailable Constantino Okeefe MD Attending Clinician Lana Cochran LVN Attending Clinician DARRYN LANDA Attending Clinician Unavailable Viv Hyde Attending Clinician Darryn Landa MD Attending Clinician JOHN MARCANO Attending Clinician Unavailable GREGORIO FERRELL Attending Clinician Unavailable RJ ADDISON Attending Clinician Unavailable JACI ESTRELLA Admitting Clinician Unavailable Jaci Estrella DO Admitting Clinician CONSTANTINO OKEEFE Admitting Clinician Unavailable DARRYN LANDA Admitting Clinician Unavailable Darryn Landa MD Admitting Clinician TOÑITOMARIVEL DAVINASerenity YOUSSEF Admitting Clinician Unavailable Payers Payer Name Policy Type Policy Number Effective Date Expiration Date S ource Problems Condition Condition Condition Status Onset Resolution Last Treating Co mments Source Name Details Category Date Date Treatment Clinician Date Bloody Bloody Disease Active 2021-08 Univers stools stools 0-05 ity of 00:00: [address] Obesity Obesity Disease Active 2021-08 Univers (BMI (BMI 0-05 ity of 30-39.9) 30-39.9) 00:00: [address] Proctocoli Proctocoli Disease Active U nivers tis tis 9-21 ity of 00:00: [address] Allergies, Adverse Reactions, Alerts Allergy Allergy Status Severity Reaction(s) Onset Inactive Treating Comm ents Source Name Type Date Date Clinician No Known DA Active U 2018-08 [facility]ie 0-17 [place] 00:00: [facility] [address] NO KNOWN Drug Active Univers ALLERGIE Class ity of S [facility] Social History Social Habit Start Date Stop Date Quantity Comments Source History of Passive smoker University of tobacco use [facility] Exposure to 2022-06-22 2022-07-02 Not sure [facility] SARS-CoV-2 00:00:00 21:48:00 [facility] (event) Branch Alcohol intake 2022-07-02 2022-07-02 Ex-drinker [facility] 00:00:00 00:00:00 (finding) [facility] Education 2022-05-11 2022-05-11 21 [facility] 00:00:00 00:00:00 [facility] Tobacco use and 2022-04-27 2022-04-27 Smokeless tobacco Un iversity of exposure 00:00:00 00:00:00 non-user [facility] Sex Assigned At [birth year] Universit y of 00:00:00 00:00:00 [facility] Smoking Status Start Date Stop Date Source Ex-smoker 2022-04-27 00:00:00 2022-04-27 00:00:00 [facility] Medications Ordered Filled Start Stop Current Ordering Indication Dosage Frequency Signature Comments Components Source Medication Medication Date Date Medication? Clinician (SIG) Name Name morpHINE (4 2021-08- No 4mg 4 mg, Slow Univers mg/mL) 09-02 IV Push, ity of injection 4 06:00: 04:54 ONCE, 1 [place] mg 00 :00 dose, On Medical [place] Branch 07/03/22 at 0000, STAT NaCl 0.9% 2021-08- No 1000mL at 999 Uni vers (NS) bolus 09-02 mL/hr, ity of infusion 05:15: 05:58 1,000 mL, [place] 1,000 mL 00 :00 IV Medical Piggyback, Branch ONCE, 1 dose, On 07/02/22 at 2315, STAT diphenhydrA 2021-08- No 25mg 25 mg, Uni vers MINE 09-02 Slow IV ity of (BENADRYL) 05:00: 04:54 Push, [place] injection 00 :00 ONCE, 1 Medical 25 mg dose, On Branch 07/02/22 at 2300, STAT famotidine 2021-08- No 20mg 20 mg, Univ ers (PEPCID 09-02 Slow IV ity of (PF)) 04:30: 04:43 Push, [place] injection 00 :00 ONCE, 1 Medical 20 mg dose, On Branch 07/02/22 at 2230, JANNA dexamethaso 2021-08- No 10mg 10 mg, Uni vers ne sod phos 09-02 Slow IV ity of PF 04:30: 04:43 Push, [place] injection 00 :00 ONCE, 1 Medical 10 mg dose, On Branch 07/02/22 at 2230, 1 mL predniSONE 2021-08 Yes [id number] Take 1 po Univers 20 mg 09-01 tid x 2 ity of tablet 00:00: days, then [place] 00 take 1 po Medical bid x 3 Branch days, then take 1 po daily x 5 days. famotidine 2021-08- Yes [id number] 20mg Take 1 Univers (PEPCID) 20 1-26 12-12 tablet by it y of mg tablet 00:00: 05:59 mouth in [place] 00 :00 the Medical morning Branch and 1 tablet in the evening. Do all this for 15 days. predniSONE 2021-08- No [id number] Take 1 po Univers 20 mg 09-01 tid x 2 ity of tablet 00:00: 00:00 [place] 00 :[place] 1 po bid x Medical 3 days, Branch then 1 po daily x 5 days famotidine 2021-08- No [id number] 20mg Take 1 Univers (PEPCID) 20 09-01 tablet by it y of mg tablet 00:00: 00:00 mouth in [place] 00 :00 the Medical morning Branch and 1 tablet in the evening. Do all this for 15 days. predniSONE 2021-08- Yes [id number] Take 3 Univers 5 mg tablet 08-22-08 tablets by i ty of 00:00: 05:59 mouth [place] 00 :00 daily for Medical 7 days, Branch THEN 2 tablets daily for 7 days, THEN 1 tablet daily for 7 days. predniSONE 2021-08- Yes [id number] Take 3 Univers 5 mg tablet 08-22-08 tablets by i ty of 00:00: 05:59 mouth [place] 00 :00 daily for Medical 7 days, Branch THEN 2 tablets daily for 7 days, THEN 1 tablet daily for 7 days. predniSONE 2021-08- Yes [id number] Take 3 Univers 5 mg tablet 08-22- tablets by i ty of 00:00: 05:59 mouth [place] 00 :00 daily for Medical 7 days, Branch THEN 2 tablets daily for 7 days, THEN 1 tablet daily for 7 days. lactobacill 2021-08- Yes [id number] .5mg Take 1 Univers us 0-12 02-10 tablet by ity of acidophilus 00:00: 05:59 mouth in [place] 00 :00 the Medical morning Branch for 120 days. lactobacill 2021-08- Yes [id number] .5mg Take 1 Univers us 0-12 02-10 tablet by ity of acidophilus 00:00: 05:59 mouth in [place] 00 :00 the Medical morning Branch for 120 days. lactobacill 2021-08- Yes [id number] .5mg Take 1 Univers us 0-12 02-10 tablet by ity of acidophilus 00:00: 05:59 mouth in [place] 00 :00 the Medical morning Branch for 120 days. predniSONE 2021-08- Yes [id number] Take 6 Univers 10 mg 0-12 11-17 tablets by ity of tablet 00:00: 05:59 mouth [place] 00 :00 daily for Medical 7 days, Branch THEN 5 tablets daily for 7 days, THEN 4 tablets daily for 7 days, THEN 3 tablets daily for 7 days, THEN 2 tablets daily for 7 days. predniSONE 2021-08 Yes 60mg 60 mg, Unive rs (DELTASONE) 0-11 Oral, ity of tablet 60 14:00: DAILY, [place] mg 00 First dose Medical on Mon Branch 05/17/22 at 0900, Until Discontinu ed, Routine methylPREDN 2021-08 Yes 20mg 20 mg, Univ ers ISolone sod 0-08 Intravenou it y of succ 14:30: s, Q8H, [place] (SOLU-MEDRO 00 First dose Me dical L (PF)) on [facility] Branch injection 05/14/22 at 20 mg 0930, Until Discontinu ed, Routine methylPREDN 2021-08- No 20mg 20 mg, Uni vers ISolone sod 0-08 10-11 Intravenou i ty of succ 14:30: 13:41 s, Q8H, [place] (SOLU-MEDRO 00 :53 First dose Me dical L (PF)) on [facility] Branch injection 05/14/22 at 20 mg 0930, Until Discontinu ed, Routine acetaminoph 2021-08 Yes 650mg 650 mg, Un kar en 0-07 Oral, ity of (TYLENOL) 23:05: Q6HPN, [place] tablet 650 22 Starting Medic al mg on Mon Branch 05/13/22 at 1805, Until Discontinu ed, Routine, Pain (scale 1-3), Temp > 38.5 C acetaminoph 2021-08 Yes 650mg 650 mg, Un kar en 0-07 Oral, ity of (TYLENOL) 23:05: Q6HPRN, [place] tablet 650 22 Starting Medic al mg on Mon Branch 05/13/22 at 1805, Until Discontinu ed, Routine, Pain (scale 1-3), Temp > 38.5 C morpHINE (4 2021-08- No 2mg 2 mg, Slow Univers mg/mL) 005-13 IV Push, ity of injection 2 17:02: 17:41 Q5MIN PRN, [place] mg 16 :46 5 doses, Medical Starting Branch on Mon05/13/22 at 1202, Until Mon05/13/22 at 1241, Routine, Pain (scale 4-6), PACU morpHINE (4 2021-08- No 2mg 2 mg, Slow Univers mg/mL) 005-13 IV Push, ity of injection 2 17:02: 17:41 Q5MIN PRN, [place] mg 16 :46 5 doses, Medical Starting Branch on Mon05/13/22 at 1202, Until Mon05/13/22 at 1241, Routine, Pain (scale 4-6), PACU lactobacill 2021-08 Yes .5mg 0.5 mg, Uni vers us 0-07 Oral, ity of acidophilus 17:00: DAILY, [place] tablet 0.5 00 First dose Med ical mg on Mon Branch 05/13/22 at 1200, Until Discontinu ed, Routine lactobacill 2021-08 Yes .5mg 0.5 mg, Uni vers us 0-07 Oral, ity of acidophilus 17:00: DAILY, [place] tablet 0.5 00 First dose Med ical mg on Mon Branch 05/13/22 at 1200, Until Discontinu ed, Routine water for 2021-08- No PRN, Univers irrigation 005-13 Starting ity of irrigation 14:52: 16:50 on Mon [place] solution 00 :17 05/13/22 at Medic al 0952, Branch Until Mon05/13/22 at 1150, Routine, Intra-op simethicone 2021-08- No PRN, Unive rs (GAS RELIEF 005-13 Starting ity of (SIMETHICON 14:51: 16:50 on Mon [place] E)) 40 00 :17 05/13/22 at Medical mg/0.6 mL 0951, Branch drops Until Mon05/13/22 at 1150, Routine, Intra-op cholecalcif 2021-08 Yes 2000U 2,000 Univ ers niraj 0-07 Units, ity of (vitamin 14:00: Oral, [place] D3) tablet 00 DAILY, Medical 2,000 Units First dose Br anch on Mon05/13/22 at 0900, Until Discontinu ed, Routine cholecalcif 2021-08 Yes 2000U 2,000 [facility] niraj 0-07 Units, ity of (vitamin 14:00: Oral, [place] D3) tablet 00 DAILY, Medical 2,000 Units First dose Br anch on Mon05/13/22 at 0900, Until Discontinu ed, Routine ondansetron 2021-08 Yes 4mg 4 mg, Slow Univers (ZOFRAN 0-06 IV Push, ity of (PF)) 22:23: Q6HPRN, [place] injection 4 56 Nausea and Me dical mg Vomiting Branch (N/V), Starting on Yue 05/12/22 at 1723
Do ses of ondansetro n 16 mg and above need to be administer ed via IV piggyback. For Dose >=24mg ECG monitoring is advisable.
ondansetron 2021-08 Yes 4mg 4 mg, Slow Univers (ZOFRAN 0-06 IV Push, ity of (PF)) 22:23: Q6HPRN, [place] injection 4 56 Nausea and Me dical mg Vomiting Branch (N/V), Starting on Yue 05/12/22 at 1723
Do ses of ondansetro n 16 mg and above need to be administer ed via IV piggyback. For Dose >=24mg ECG monitoring is advisable.
peg-electro 2021-08- No 4000mL 4,000 mL, Univers lyte soln 0-06 10-06 Oral, ity of (GOLYTELY) 14:00: 21:08 ONCE, 1 [place] 236-22.74-6 00 :00 dose, On Medi miranda .74 -5.86 [place] Branch gram 05/12/22 at solution 0900, 4,000 mL Routine peg-electro 2021-08- No 4000mL 4,000 mL, Univers lyte soln 0-06 10-06 Oral, ity of (GOLYTELY) 14:00: 21:08 ONCE, 1 [place] 236-22.74-6 00 :00 dose, On Medi miranda .74 -5.86 [place] Branch gram 05/12/22 at solution 0900, 4,000 mL Routine NaCl 0.9% 2021-08- No 1000mL at 125 Uni vers (NS) IV 0-06 10-07 mL/hr, IV ity of infusion 13:15: 17:03 Infusion, [place] 1,000 mL 00 :10 CONTINUOUS Medic al , Starting Branch on Yue 05/12/22 at 0815, Until Mon05/13/22 at 1203, Routine NaCl 0.9% 2021-08 No 1000mL at 125 Uni vers (NS) IV 0-06 10-07 mL/hr, IV ity of infusion 13:15: 17:03 Infusion, [place] 1,000 mL 00 :10 CONTINUOUS Medic al , Starting Branch on Yue 05/12/22 at 0815, Until 05/13/22 at 1203, Routine vancomycin 2021-08 No 500mg 500 mg, Un kar (VANCOCIN) 0- 10-06 Oral, ONCE it y of capsule 500 04:45: 04:10 NOW, 1 [place] mg 00 :00 dose, On Medical Wed Branch 05/11/22 at 2345, JANNA
Fa culty member approving Non-formul lenny medication : FERDINAND KELLY
R saad for non-formul lenny use: SPECIFIC INDICATION FOR NONFORMULA RY PRODUCT
Reason for Anti-Infec tive: Empiric Therapy for Suspected Infection< br>Empi kaity Therapy Site: Abdominal< br>Duratio n of therapy: 5 days vancomycin 2021-08 No 500mg 500 mg, Un kar (VANCOCIN) 0- 10-06 Oral, ONCE it y of capsule 500 04:45: 04:10 NOW, 1 [place] mg 00 :00 dose, On Medical Wed Branch 05/11/22 at 2345, JANNA
Fa culty member approving Non-formul lenny medication : FERDINAND KELLY
R saad for non-formul lenny use: SPECIFIC INDICATION FOR NONFORMULA RY PRODUCT
Reason for Anti-Infec tive: Empiric Therapy for Suspected Infection< br>Empi kaity Therapy Site: Abdominal< br>Duratio n of therapy: 5 days NaCl 0.9% 2021-08 No 1000mL at 100 Uni vers (NS) IV 0-06 10-06 mL/hr, IV ity of infusion 03:45: 13:12 Infusion, [place] 1,000 mL 00 :02 CONTINUOUS Medic al , Starting Branch on Mon05/11/22 at 2245, Until Yue 05/12/22 at 0812, Routine NaCl 0.9% 2021-08 No 1000mL at 100 Uni vers (NS) IV 0-06 10-06 mL/hr, IV ity of infusion 03:45: 13:12 Infusion, [place] 1,000 mL 00 :02 CONTINUOUS Medic al , Starting Branch on Mon05/11/22 at 2245, Until Yue 05/12/22 at 0812, Routine cholestyram 2021-08 Yes 1{packe 1 Packet, Univers ine 0-06 t} Oral, BID, ity of (QUESTRAN) 02:45: First dose [place] 4 gram 00 on Mon Medical packet 1 05/11/22 at [facility] Packet 2145, Until Discontinu ed, Routine cholestyram 2021-08 Yes 1{packe 1 Packet, Univers ine 0-06 t} Oral, BID, ity of (QUESTRAN) 02:45: First dose [place] 4 gram 00 on Mon Medical packet 1 05/11/22 at [facility] Packet 2145, Until Discontinu ed, Routine vancomycin 2021-08 No 500mg 500 mg, Un kar (FIRVANQ) 0- 10-07 Oral, QID, ity of 50 mg/mL 02:45: 17:02 40 doses, [place] oral 00 :41 First dose Medical solution on Wed Branch 500 mg 05/11/22 at 2145, Last dose on 05/21/22 at 1600, Routine
Reason for Anti-Infec tive: Empiric Therapy for Suspected Infection< br>Empiric Therapy Site: Abdominal< br>Duratio n of therapy: 5 days vancomycin 2021-08 No 500mg 500 mg, Un kar (FIRVANQ) 0- 10-07 Oral, QID, ity of 50 mg/mL 02:45: 17:02 40 doses, [place] oral 00 :41 First dose Medical solution on Wed Branch 500 mg 05/11/22 at 2145, Last dose on 05/21/22 at 1600, Routine
Reason for Anti-Infec tive: Empiric Therapy for Suspected Infection< br>Empiric Therapy Site: Abdominal< br>Duratio n of therapy: 5 days diphenhydrA 2021-08 Yes 25mg 25 mg, Univ ers MINE 0-06 Intravenou ity of (BENADRYL) 02:25: s, Q4HPRN, [place] injection 39 Starting Medica l 25 mg on Mon Branch 05/11/22 at 2125, Until Discontinu ed, Routine, Itching diphenhydrA 2021-08 Yes 25mg 25 mg, Univ ers MINE 0-06 Intravenou ity of (BENADRYL) 02:25: s, Q4HPRN, [place] injection 39 Starting Medica l 25 mg on Mon Branch 05/11/22 at 2125, Until Discontinu ed, Routine, Itching morpHINE (2 2021-08 Yes 4mg 4 mg, Slow Univers mg/mL) 0-06 IV Push, ity of injection 4 01:53: Q4HPRN, [place] mg 50 Starting Medical on Mon Branch 05/11/22 at 2052, Until Discontinu ed, Routine, Pain (scale 7-10) morpHINE (2 2021-08 Yes 4mg 4 mg, Slow Univers mg/mL) 0-06 IV Push, ity of injection 4 01:53: Q4HPRN, [place] mg 50 Starting Medical on Mon Branch 05/11/22 at 2052, Until Discontinu ed, Routine, Pain (scale 7-10) diphenhydrA 2021-08- No 25mg 25 mg, Uni vers MINE 0-05 10-05 Slow IV ity of (BENADRYL) 21:45: 21:35 Push, [place] injection 00 :00 ONCE, 1 Medical 25 mg dose, On Branch Mon05/11/22 at 1645, STAT diphenhydrA 2021-08- No 25mg 25 mg, Uni vers MINE 0-05 10-05 Slow IV ity of (BENADRYL) 21:45: 21:35 Push, [place] injection 00 :00 ONCE, 1 Medical 25 mg dose, On Branch Mon05/11/22 at 1645, STAT ondansetron 2021-08 No 4mg 4 mg, Slow Univers (ZOFRAN 0-05 10-05 IV Push, ity of (PF)) 19:30: 19:38 ONCE, 1 [place] injection 4 00 :00 dose, On Medi miranda mg Mon05/11/22 at 1430, JANNA FENTanyl PF 2021-08 No 75ug 75 mcg, Un kar (SUBLIMAZE 0-05 10-05 Slow IV ity o f (PF)) 19:30: 19:40 Push, [place] injection 00 :00 ONCE, 1 Medical 75 mcg dose, On Branch Mon05/11/22 at 1430, STAT ondansetron 2021-08 No 4mg 4 mg, Slow Univers (ZOFRAN 0-05 10-05 IV Push, ity of (PF)) 19:30: 19:38 ONCE, 1 [place] injection 4 00 :00 dose, On Medi miranda mg Mon05/11/22 at 1430, JANNA FENTanyl PF 2021-08 No 75ug 75 mcg, Un kar (SUBLIMAZE 0-05 10-05 Slow IV ity o f (PF)) 19:30: 19:40 Push, [place] injection 00 :00 ONCE, 1 Medical 75 mcg dose, On Branch Mon05/11/22 at 1430, STAT iopamidol 2021-08 No [id number] 75mL 75 mL, Univers (ISOVUE 0-04 10-04 Intravenou ity o f 370-500 mL) 03:45: 03:45 s, ONCE, 1 [place] injection 00 :00 dose, On Medica l 75 mL Mon05/09/22 at 2245, Routine FENTanyl PF 2021-08 No 75ug 75 mcg, Un kar (SUBLIMAZE 0-04 10-04 Slow IV ity o f (PF)) 03:30: 03:15 Push, [place] injection 00 :00 ONCE, 1 Medical 75 mcg dose, On Branch Mon05/09/22 at 2230, Routine diphenhydrA 2021-08 No 25mg 25 mg, Uni vers MINE 0-04 10-04 Slow IV ity of (BENADRYL) 02:30: 03:12 Push, [place] injection 00 :00 ONCE, 1 Medical 25 mg dose, On Branch 05/09/22 at 2130, STAT ondansetron 2021-08 No 4mg 4 mg, Slow Univers (ZOFRAN 0-04 10-04 IV Push, ity of (PF)) 02:15: 03:09 ONCE, 1 [place] injection 4 00 :00 dose, On Medi miranda mg Mon Branch 05/09/22 at 2115, JANNA ferrous 2021-08 No 325mg Take 325 Univ ers sulfate 325 0-03 10-03 mg by ity of mg (65 mg 20:43: 00:00 mouth in [place] iron) 33 :00 the Medical tablet morning. Branch mesalamine 2021-08- Yes [id number] 1.2g Take 1 Univers 1.2 gram EC 0-03 10-18 tablet by it y of tablet 00:00: 04:59 mouth [place] 00 :00 daily with Medical breakfast Branch for 14 days. mesalamine 2021-08- Yes [id number] 1.2g Take 1 Univers 1.2 gram EC 0-03 -18 tablet by it y of tablet 00:00: 04:59 mouth [place] 00 :00 daily with Medical breakfast Branch for 14 days. mesalamine 2021-08 No [id number] 1.2g Take 1 Univers 1.2 gram EC 0-03 10-11 tablet by it y of tablet 00:00: 00:00 mouth [place] 00 :00 daily with Medical breakfast Branch for 14 days. ferrous Yes 325mg Take 325 Unive rs sulfate 325 9-23 mg by ity of mg (65 mg 13:15: mouth [place] iron) 46 the Medical tablet morning. Branch ferrous Yes 325mg Take 325 Unive rs sulfate 325 9-23 mg by ity of mg (65 mg 13:15: mouth [place] iron) 46 the Medical tablet morning. Branch acetaminoph 2021- No 1{tbl} Take 1 U nivers en with -29 04-23 tablet by ity of codeine 12:40: 00:00 mouth [place] (TYLENOL-CO 38 :00 every 6 Medic al DEINE #3 (six) Branch ORAL) hours as needed for Pain (scale 7-10). ciprofloxac 2021- No 250mg Take 250 Univers in HCl 250 04-29-23 mg by ity of mg tablet 11:38: 00:00 mouth [place] 56 :00 every 12 Medical (twelve) Branch hours. mesalamine 0 2021- No 1000mg Take 1,000 Univers 500 mg CR 04-29-23 mg by ity of capsule 11:38: 00:00 mouth in [place] 56 :00 the Medical morning Branch and 1,000 mg at noon and 1,000 mg in the evening. mesalamine 0 Yes 1600mg 1,600 mg, Univers (ASACOL HD) 9-23 Oral, TID, it y of EC tablet 01:00: First dose [place] 1,600 mg 00 on Yue Medical 04/28/22 at Branch 1999, Until Discontinu ed, Routine
[place] tribunal member approving Restricted medication : DARRYN LANDA acetaminoph 0 Yes [id number] 1{tbl} Take 1 Un kar en-codeine 9-23 tablet by ity of (TYLENOL-CO 00:00: mouth [place] DEINE #3) 00 every 6 Medical 300-30 mg (six) Branch tablet hours as needed for Pain (scale 7-10). Indication s: acute pain mesalamine 2021-0 Yes [id number] 1.2g Take 1 U nivers 1.2 gram EC 9-23 tablet by ity of tablet 00:00: mouth [place] 00 daily with Medical breakfast. Branch vancomycin Yes [id number] 125mg Take 1 Univers 125 mg 9-23 capsule by ity of capsule 00:00: mouth 4 [place] 00 (four) Medical times Branch daily. mesalamine 2021-0 Yes [id number] 1.2g Take 1 U nivers 1.2 gram EC 9-23 tablet by ity of tablet 00:00: mouth [place] 00 daily with Medical breakfast. Branch vancomycin 0 Yes [id number] 125mg Take 1 Univers 125 mg 9-23 capsule by ity of capsule 00:00: mouth 4 [place] 00 (four) Medical times Branch daily. mesalamine 2021-0 Yes [id number] 1.2g Take 1 U nivers 1.2 gram EC 9-23 tablet by ity of tablet 00:00: mouth 00 daily with Medical breakfast. Branch vancomycin Yes [id number] 125mg Take 1 Univers 125 mg 9-23 capsule by ity of capsule 00:00: mouth 4 00 (four) Medical times Branch daily. acetaminoph Yes [id number] 1{tbl} Take 1 Un kar en-codeine 9-23 tablet by ity of (TYLENOL-CO 00:00: mouth [place] DEINE #3) 00 every 6 Medical 300-30 mg (six) Branch tablet hours as needed for Pain (scale 7-10). Indication s: acute pain mesalamine Yes [id number] 1.2g Take 1 U nivers 1.2 gram EC 9-23 tablet by ity of tablet 00:00: mouth [place] 00 daily with Medical breakfast. Branch vancomycin Yes [id number] 125mg Take 1 Univers 125 mg 9-23 capsule by ity of capsule 00:00: mouth (four) Medical times Branch daily. mesalamine 2021- No [id number] 1.2g Take 1 Univers 1.2 gram EC 9-23 10-11 tablet by it y of tablet 00:00: 00:00 mouth [place] 00 :00 daily with Medical breakfast. Branch vancomycin 2021-2- No [id number] 125mg Take 1 Univers 125 mg 9-23 10-11 capsule by ity of capsule 00:00: 00:00 mouth 4 [place] 00 :00 (four) Medical times Branch daily. acetaminoph 2- No 4647 1{tbl} Take 1 U nivers en-codeine 9-23 10-03 tablet by ity of (TYLENOL-CO 00:00: 00:00 mouth [place] DEINE #3) 00 :00 every 6 Medical 300-30 mg (six) Branch tablet hours as needed for Pain (scale 7-10). Indication s: acute pain acetaminoph 2021-2- No 4647 1{tbl} Take 1 U nivers en-codeine 9-23 09-23 tablet by ity of (TYLENOL-CO 00:00: 00:00 mouth [place] DEINE #3) 00 :00 every 6 Medical 300-30 mg (six) Branch tablet hours as needed for Pain (scale 7-10) for up to 7 days. Indication s: acute pain vancomycin 2021- No [id number] 125mg Take 1 Univers 125 mg 04-29 capsule by ity of capsule 00:00: 00:00 mouth 4 [place] 00 :00 (four) Medical times Branch daily for 9 days. mesalamine 2021- No [id number] 1.2g Take 1 Univers 1.2 gram EC 04-29 tablet by it y of tablet 00:00: 00:00 mouth [place] 00 :00 daily with Medical breakfast Branch for 30 days. metroNIDAZO 2021- No 500mg 500 mg, IV Univers LE in NaCl 04-28 Piggyback, it y of (iso-os) 23:00: 00:27 Q12H ABX, [place] (FLAGYL 00 :45 First dose Medica l I.V.) RTU (after Branch IV infusion last 500 mg modificati on) on Yue 04/28/22 at 1800, Until Discontinu ed, Administer over 75 Minutes, 100 mL
Reas on for Anti-Infec tive: Empiric Therapy for Suspected Infection< br>Empiric Therapy Site: Abdominal< br>Duratio n of therapy: 5 days vancomycin 2021- Yes 125mg 125 mg, Un kar (FIRVANQ) 04-28 Oral, QID, ity of 50 mg/mL 21:00: 20:59 40 doses, [place] oral 00 :00 First dose Medical solution on Yue Branch 125 mg 04/28/22 at 1600, Last dose on 05/08/22 at 1200, Routine
Reason for Anti-Infec tive: Documented Infection< br>Documen eunice Infection Site: Abdominal< br>Duratio n of Therapy: 7 days morpHINE (2 2021- Yes 2mg 2 mg, Slow Univers mg/mL) 04-28 IV Push, ity of injection 2 19:49: 19:48 Q4HPRN, [place] mg 09 :09 Starting Medical on Yue Branch 04/28/22 at 1449, Until 04/29/22 at 1448, Routine, Pain (scale 7-10) metroNIDAZO No 500mg 500 mg, IV Univers LE in NaCl 04-28 Piggyback, it y of (iso-os) 11:00: 19:49 Q12H ABX, [place] (FLAGYL 00 :00 First dose Medica l I.V.) RTU (after Branch IV infusion last 500 mg modificati on) on Yue 04/28/22 at 0600, Until Discontinu ed, Administer over 75 Minutes, 100 mL
Reas on for Anti-Infec tive: Empiric Therapy for Suspected Infection< br>Empiric Therapy Site: Abdominal< br>Duratio n of therapy: 5 days diphenhydrA Yes 25mg 25 mg, Univ ers MINE 04-27 Intravenou ity of (BENADRYL) 23:58: s, Q6HPRN, [place] injection 43 Starting Medica l 25 mg on Mon Branch 04/27/22 at 1858, Until Discontinu ed, Routine, Itching acetaminoph Yes 1{tbl} 1 tablet, Univers en-codeine 04-27 Oral, ity of (TYLENOL 23:57: Q4HPRN, [place] #3) 300-30 43 Starting Medic al mg tablet 1 on Mon Branch tablet 04/27/22 at 1857, Until Discontinu ed, Routine, Pain (scale 4-6) enoxaparin Yes 40mg 40 mg, Unive rs (LOVENOX) 04-27 Subcutaneo ity of injection 22:00: us, DAILY, [place] 40 mg 00 First dose Medical on Mon Branch 04/27/22 at 1700, Until Discontinu ed, Routine cefTRIAXone No 1000mg 1,000 mg, Univers (ROCEPHIN) 04-27 IV ity of 1,000 mg in 20:00: 19:48 [place], [place] NaCl 0.9% 00 :56 Q24H ABX, Medic al (NS) 50 mL 7 doses, Branc h MINI-BAG First dose on Mon04/27/22 at 1500, Last dose on Mon05/03/22 at 1500, Administer over 30 Minutes, 50 mL
Reas on for Anti-Infec tive: Empiric Therapy for Suspected Infection< br>Empiric Therapy Site: Abdominal< br>Duratio n of therapy: 5 days morpHINE (2 2021- No 2mg 2 mg, Slow Univers mg/mL) 04-27 IV Push, ity of injection 2 18:53: 18:52 Q4HPRN, [place] mg 03 :03 Starting Medical on Wed Branch 04/27/22 at 1353, Until Yue 04/28/22 at 1352, Routine, Pain (scale 7-10) acetaminoph Yes 650mg 650 mg, Un kar en 04-27 Oral, ity of (TYLENOL) 18:52: Q6HPRN, [place] tablet 650 36 Starting Medic al mg on Mon Branch 04/27/22 at 1352, Until Discontinu ed, Routine, Pain (scale 1-3) iopamidol 2021- No [id number] 70mL 70 mL, Univers (ISOVUE 04-27 Intravenou ity o f 370-500 mL) 18:15: 18:15 s, ONCE, 1 [place] injection 00 :00 dose, On Medica l 70 mL Mon Branch 04/27/22 at 1315, Routine hydrOXYzine 2021- No 25mg 25 mg, Uni vers (ATARAX) 04-27 Oral, ity of tablet 25 17:30: 17:29 ONCE, 1 [place] mg 00 :00 dose, On Medical Mon Branch 04/27/22 at 1230, JANNA ondansetron 2021- No 4mg 4 mg, Slow Univers (ZOFRAN 04-27 IV Push, ity of (PF)) 16:15: 16:13 ONCE, 1 [place] injection 4 00 :00 dose, On Medi miranda mg Wed Branch 04/27/22 at 1115, JANNA morpHINE (4 2021- No 4mg 4 mg, Slow Univers mg/mL) 04-27 IV Push, ity of injection 4 16:15: 16:13 [place] 1 [place] 00 :[place] dose, On Medical Wed Branch 04/27/22 at 1115, STAT Vital Signs Vital Name Observation Time Observation Value Comments Source Systolic blood 2022-07-03 06:00:00 134 mm[Hg] [facility]iver [facility] Diastolic blood 2022-07-03 06:00:00 84 mm[Hg] Unive rsity of [facility] Heart rate 2022-07-03 06:00:00 72 /min [facility] [place] [facility] Respiratory rate 2022-07-03 06:00:00 18 /min [facility] [place] [facility] Oxygen saturation in 2022-07-03 06:00:00 95 /min University of Arterial blood by [place] [facility] miranda Pulse oximetry Branch Body temperature 2022-07-03 03:50:00 37.39 Breann [facility] [place] [facility] Body height 2022-07-03 03:50:00 175.3 cm [facility] Body weight 2022-07-03 03:50:00 90.719 kg [facility] BMI 2022-07-03 03:50:00 29.53 kg/m2 [facility] Systolic blood 2022-05-17 16:43:00 128 mm[Hg] Univer [facility] Diastolic blood 2022-05-17 16:43:00 72 mm[Hg] Unive rsity of [facility] Heart rate 2022-05-17 16:43:00 58 /min [facility] Body temperature 2022-05-17 16:43:00 35.83 Breann [facility] [place] [facility] Respiratory rate 2022-05-17 16:43:00 18 /min [facility] Oxygen saturation in 2022-05-17 16:43:00 100 /min University of Arterial blood by [facility] Pulse oximetry Branch Body weight 2022-05-17 09:42:00 87 kg [facility] BMI 2022-05-17 09:42:00 28.32 kg/m2 [facility] Body height 2022-05-11 22:16:00 175.3 cm [facility] Systolic blood 2022-05-13 14:58:00 128 mm[Hg] Univer [facility] Diastolic blood 2022-05-13 14:58:00 80 mm[Hg] Unive rsity of [facility] Heart rate 2022-05-13 14:58:00 86 /min [facility] Body temperature 2022-05-13 14:58:00 37.67 Breann [facility] [place] [facility] Respiratory rate 2022-05-13 14:58:00 18 /min [facility] Oxygen saturation in 2022-05-13 14:58:00 99 /min University of Arterial blood by [place] [facility] Pulse oximetry Branch Body weight 2022-05-13 09:27:00 90.992 kg [facility] [place] [facility] BMI 2022-05-13 09:27:00 28.32 kg/m2 [facility] Body height 2022-05-11 22:16:00 175.3 cm [facility] Heart rate 2022-05-10 04:12:00 73 /min [facility] Body temperature 2022-05-10 04:12:00 36.5 Breann [facility] [place] [facility] Oxygen saturation in 2022-05-10 04:12:00 97 /min University of Arterial blood by [place] miranda Pulse oximetry Branch Systolic blood 2022-05-10 04:00:00 133 mm[Hg] Univer [facility]ity [facility] Diastolic blood 2022-05-10 04:00:00 79 mm[Hg] Unive rsity of [facility] Respiratory rate 2022-05-10 04:00:00 19 /min [facility] [place] [facility] Body height 2022-05-10 01:42:00 175.3 cm [facility] Body weight 2022-05-10 01:42:00 86.183 kg [facility] BMI 2022-05-10 01:42:00 28.06 kg/m2 [facility] [place] [facility] Systolic blood 2022-04-29 17:14:00 132 mm[Hg] Univer sity [facility] Diastolic blood 2022-04-29 17:14:00 98 mm[Hg] Unive rsity of [facility] Heart rate 2022-04-29 17:14:00 90 /min [facility] [place] [facility] Body temperature 2022-04-29 17:14:00 36.28 Breann [facility] [place] [facility] Respiratory rate 2022-04-29 17:14:00 18 /min [facility] Oxygen saturation in 2022-04-29 17:14:00 100 /min [facility] Arterial blood by [facility] Pulse oximetry [place] Body weight 2022-04-28 09:36:00 87.998 kg [facility] BMI 2022-04-28 09:36:00 28.65 kg/m2 [facility] Body height 2022-04-27 21:57:00 175.3 cm [facility] Procedures Procedure Date / Time Performing Clinician Source Performed COMP. METABOLIC PANEL 2022-07-03 04:42:00 Justin Baptiste [facility] ([id number]) [facility] CBC WITH DIFF 2022-07-03 04:42:00 Justin Baptiste [place] [facility] CONSENT/REFUSAL FOR 2022-07-03 03:35:53 Doctor Unassigned, [facility] DIAGNOSIS AND TREATMENT [place] [facility] BASIC METABOLIC PANEL 2022-05-16 08:42:00 Molina Stovall [facility] (NA, K, CL, CO2, GLUCOSE, Medica l Branch BUN, CREATININE, CA) CBC WITH DIFF 2022-05-16 08:42:00 Molina Stovall [facility] BASIC METABOLIC PANEL 2022-05-16 08:42:00 [facility] ([facility], K, CL, CO2, GLUCOSE, Medica l Branch BUN, CREATININE, CA) CBC WITH DIFF 2022-05-16 08:42:00 Molina Stovall [facility] BASIC METABOLIC PANEL 2022-05-15 09:46:00 [facility] (NA, K, CL, CO2, GLUCOSE, Medica l Branch BUN, CREATININE, CA) CBC WITH DIFF 2022-05-15 09:46:00 Molina Stovall [facility] BASIC METABOLIC PANEL 2022-05-15 09:46:00 [facility] (NA, K, CL, CO2, GLUCOSE, Medica l Branch BUN, CREATININE, CA) CBC WITH DIFF 2022-05-15 09:46:00 Molina Stovall [facility] BASIC METABOLIC PANEL 2022-05-14 08:30:00 Molina Stovall [facility] (NA, K, CL, CO2, GLUCOSE, Medica l Branch BUN, CREATININE, CA) CBC WITH DIFF 2022-05-14 08:30:00 Molina Stovall [facility] BASIC METABOLIC PANEL 2022-05-14 08:30:00 [facility] (NA, K, CL, CO2, GLUCOSE, Medica l Branch BUN, CREATININE, CA) CBC WITH DIFF 2022-05-14 08:30:00 [facility] 2022-05-13 16:29:00 Marybel Sexton [facility] FLEXIBLE SIGMOIDOSCOPY 2022-05-13 16:08:00 Marybel Sexton [facility] FLEXIBLE SIGMOIDOSCOPY 2022-05-13 16:08:00 Marybel Sexton [facility] FLEXIBLE SIGMOIDOSCOPY 2022-05-13 16:07:35 Ferdinand Kelly [facility] (ENDO) [facility] FLEXIBLE SIGMOIDOSCOPY 2022-05-13 16:07:35 Robin eric [facility] (ENDO) [facility] HB ABO GROUPING 2022-05-13 11:11:00 Robin [facility] HB ABO GROUPING 2022-05-13 11:11:00 Robin [facility] BASIC METABOLIC PANEL 2022-05-13 08:57:00 Molina Stovall [facility] (NA, K, CL, CO2, GLUCOSE, Medica l Branch BUN, CREATININE, CA) CBC WITH DIFF 2022-05-13 08:57:00 [facility] BASIC MET[facility]OLIC PANEL 2022-05-13 08:57:00 Molina Stovall [facility] (NA, K, CL, CO2, GLUCOSE, Medica l Branch BUN, CREATININE, CA) CBC WITH DIFF 2022-05-13 08:57:00 [facility] VIT[facility] D, 25-OH 2022-05-12 13:31:00 Robin [facility] VITAMIN D, 25-OH 2022-05-12 13:31:00 Robin [facility] PHOSPHORUS 2022-05-12 12:20:00 Robin [facility] MAGNESIUM 2022-05-12 12:20:00 Robin [facility] VITAMIN B12, LEVEL 2022-05-12 12:20:00 Robin [facility] C-REACTIVE PROTEIN 2022-05-12 12:20:00 Robin [facility] THYROID STIMULATING 2022-05-12 12:20:00 Robin eric [facility] COMP. METABOLIC PANEL 2022-05-12 12:20:00 Robin eric [facility] ([id number]) [facility] LIPID PANEL ([id number])(TOTAL 2022-05-12 12:20:00 Ferdinand Kelly [facility] TRIGLYCER[facility], HDL) N-TERMINAL PRO-BNP 2022-05-12 12:20:00 Robin [facility] PHOSPHORUS 2022-05-12 12:20:00 Robin eric [facility] MAGNESIUM 2022-05-12 12:20:00 Robin [facility] VITAMIN B12, LEVEL 2022-05-12 12:20:00 Robin eric [facility] C-REACTIVE PROTEIN 2022-05-12 12:20:00 Robin eric [facility] THYROID STIMULATING 2022-05-12 12:20:00 Robin eric [facility] COMP. METABOLIC PANEL 2022-05-12 12:20:00 Robin eric [facility] ([id number]) [facility] LIPID PANEL ([id number])(TOTAL 2022-05-12 12:20:00 Ferdinand Kelly [facility] TRIGLYCERIDES, HDL) N-TERMINAL PRO-BNP 2022-05-12 12:20:00 Ferdinand Kelly [facility] PROTHROMBIN TIME / INR 2022-05-12 12:19:00 Feridnand eKlly [facility] PROTHROMBIN TIME / INR 2022-05-12 12:19:00 [facility] CBC WITH DIFF 2022-05-12 12:18:00 Robin [facility] CBC WITH DIFF 2022-05-12 12:18:00 Robin eric [facility] XR KUB 2022-05-12 05:58:38 Robin [facility] XR KUB 2022-05-12 05:58:38 Robin [facility] SEDIMENTATION RATE 2022-05-12 02:23:00 Robin eric [facility] CALPROTECTIN, FECAL 2022-05-12 02:23:00 Ferdinand Kelly [facility] SEDIMENTATION RATE 2022-05-12 02:23:00 Robin [facility] CALPROTECTIN, FECAL 2022-05-12 02:23:00 Robin eric [facility] OCCULT (GUAIAC) BLOOD 2022-05-12 02:10:00 Robin eric [facility] OCCULT (GUAIAC) BLOOD 2022-05-12 02:10:00 Ferdinand Kelly [facility] URINALYSIS 2022-05-11 19:42:00 Romie Lewis [facility] CLOSTRIDIUM DIFFICILE 2022-05-11 19:42:00 Romie Lewis [facility] FECAL PATHOGENS BY PCR 2022-05-11 19:42:00 Ferdinand Kelly [facility] URINALYSIS 2022-05-11 19:42:00 Romie Lewis [facility] CLOSTRIDIUM DIFFICILE 2022-05-11 19:42:00 Romie Lewis [facility] FECAL PATHOGENS BY PCR 2022-05-11 19:42:00 Ferdinand Kelly [facility] LACTIC ACID WHOLE BLOOD 2022-05-11 19:12:00 Romie Lewis [facility] LACTIC ACID WHOLE BLOOD 2022-05-11 19:12:00 Romie [facility] BLOOD CULTURE SCREEN 2022-05-11 19:10:00 Romie Lewis [facility] LIPASE 2022-05-11 19:10:00 Romie Lewis [facility] COMP. METABOLIC PANEL 2022-05-11 19:10:00 Romie Lewis [facility] ([id number]) [facility] CBC WITH DIFF 2022-05-11 19:10:00 Romie Lewis [facility] GLYCOSYLATED HEMOGLOBIN 2022-05-11 19:10:00 Ferdinand Kelly [facility] BLOOD CULTURE SCREEN 2022-05-11 19:10:00 Romie Lewis [facility] LIPASE 2022-05-11 19:10:00 Romie Lewis [facility] COMP. METABOLIC PANEL 2022-05-11 19:10:00 Romie Lewis [facility] ([id number]) [facility] CBC WITH DIFF 2022-05-11 19:10:00 Romie Lewis [facility] GLYCOSYLATED HEMOGLOBIN 2022-05-11 19:10:00 Ferdinand Kelly [facility] ([facility]) [facility] BLOOD CULTURE SCREEN 2022-05-11 19:00:00 Romie Lewis [facility] BLOOD CULTURE SCREEN 2022-05-11 19:00:00 Romie Lewis [facility] CONSENT/REFUSAL FOR 2022-05-11 18:00:56 Doctor Unassigned, [facility] DIAGNOSIS AND TREATMENT [facility] CONSENT/REFUSAL FOR 2022-05-11 18:00:56 Doctor Unassigned, [facility] DIAGNOSIS AND TREATMENT [facility] CT ABDOMEN PELVIS W 2022-05-10 03:29:54 Constantino Okeefe [facility] HB ABO GROUPING 2022-05-10 02:49:00 Constantino Okeefe S [facility] LIPASE 2022-05-10 02:48:00 Constantino Okeefe [facility] COMP. METABOLIC PANEL 2022-05-10 02:48:00 Constantino Okeefe [facility] ([id number]) [facility] [place] CBC WITH DIFF 2022-05-10 02:48:00 Constantino Okeefe [facility] CONSENT/REFUSAL FOR 2022-05-10 01:33:55 Doctor Unassigned, [facility] DIAGNOSIS AND TREATMENT [place] [facility] MAGNESIUM 2022-04-29 08:47:00 Cordell [facility] FERRITIN SERUM 2022-04-29 08:47:00 Cordell [facility] IRON 2022-04-29 08:47:00 Cordell [facility] TOTAL IRON BINDING 2022-04-29 08:47:00 Cordell [facility] CAPACITY [facility] BASIC METABOLIC PANEL 2022-04-29 08:47:00 Cordell [facility] (NA, K, CL, CO2, GLUCOSE, Medica l Branch BUN, CREATININE, CA) CBC WITH DIFF 2022-04-29 08:47:00 Cordell [facility] MAGNESIUM 2022-04-28 09:51:00 Jaci Estrella [facility] BASIC METABOLIC PANEL 2022-04-28 09:51:00 Jcai Estrella [facility] (NA, K, CL, CO2, GLUCOSE, Medica l Branch BUN, CREATININE, CA) CBC WITH DIFF 2022-04-28 09:51:00 Jaci Estrella [facility] C-REACTIVE PROTEIN 2022-04-28 01:53:00 Jaci Estrella [facility] CLOSTRIDIUM DIFFICILE 2022-04-28 01:46:00 Jaci Estrella [facility] TOXIN [facility] FECAL PATHOGENS BY PCR 2022-04-28 01:46:00 Jaci Estrella [facility] COVID-19 (ID NOW RAPID 2022-04-27 18:36:00 Viv Ventura [facility] TESTING) Medical Branch LAB ONLY COVID 2022-04-27 18:36:00 Viv Ventura [facility] INTERPRETATION [facility] CT ABDOMEN PELVIS W 2022-04-27 17:16:09 Viv Ventura [facility] CONTRAST [facility] Branch ABORH CONFIRMATION (LAB 2022-04-27 16:40:00 Viv Ventura [facility] ONLY) Medical Branch URINALYSIS 2022-04-27 15:38:00 Viv Ventura [facility] LIPASE 2022-04-27 15:10:00 Viv Ventura [facility] MAGNESIUM 2022-04-27 15:10:00 Viv Ventura [facility] TROPONIN I 2022-04-27 15:10:00 Viv Ventura [facility] COMP. METABOLIC PANEL 2022-04-27 15:10:00 Viv Ventura [facility] ([id number]) Medical Branch CBC WITH DIFF 2022-04-27 15:10:00 Viv Ventura [facility] PROTHROMBIN TIME / INR 2022-04-27 15:10:00 Viv Ventura [facility] ACTIVATED PARTIAL 2022-04-27 15:10:00 Viv Ventura [facility] THRMPLAS TY [facility] HB ECG ROUTINE & RHYTHM 2022-04-27 15:09:41 Viv Ventura [facility] STRIP [facility] HB ABO GROUPING 2022-04-27 15:09:00 Viv Ventura [facility] NOTICE OF PRIVACY 2022-04-27 14:49:32 Doctor Nico, [facility] PRACTICES [facility] CONSENT/REFUSAL FOR 2022-04-27 14:49:05 Doctor Nico, [facility] DIAGNOSIS AND TREATMENT [place] [facility] Encounters Start End Encounter Admission Attending Care Care Encounter Source Date/Time Date/Time Type Type Clinicians Facility Department ID 2022-02-10 Outpatient [facility] [id number] [place] 11:33:08 [place] [id number] [place] [address] 2022-01-25 Outpatient [facility] [id number] [place] 15:47:07 ANA [id number] [facility] 2022-07-02 2022-07-03 Emergency X OLIVA, [facility] ERT [id number] Univers 21:53:00 00:19:00 JUSTIN ity [facility] 2022-07-02 2022-07-03 Emergency Oliva, [facility] [id number] Univers 21:53:00 00:19:00 Justin INFANTE 350.1.13.10 i ty of [facility] 4.2.7.2.686 [facility] [id number] [facility] 084 Branch 2022-07-02 2022-07-02 Orders Doctor JESSEE [id number] Univers 00:00:00 00:00:00 Only Unassigned, NATE 350.1.13.10 [facility] 4.2.7.2.686 Kartik [id number] [facility] 009 Branch 2022-05-11 2022-05-17 [facility] [place] [id number] Univers 13:03:00 14:23:00 RAYRAY [facility] 2022-05-11 2022-05-17 Emergency Joshua Romie [facility] 1.2.840. [id number] Univers 13:03:00 14:23:00 Jaci Estrella 350.1.13.10 ity of Rayray Gamez [place] 4.2.7.2.686 [facility] [id number] [facility] 081 Branch 2022-05-13 2022-05-13 [facility] [id number] Univers 10:30:00 11:10:00 Marybel INFANTE 350.1.13.10 i ty of [place] 4.2.7.2.686 [facility] SURGICAL [id number] [facility] 020 Branch 2022-05-09 2022-05-09 Emergency [facility] [id number] Univers 20:46:00 23:50:00 CONSTANTINO [facility] 2022-05-09 2022-05-09 Emergency Critical access hospital [id number] Univers 20:46:00 23:50:00 Rudolphrebecca Christiano MAYAELIE 350.1.13.10 ity of [facility] 4.2.7.2.686 [facility] [id number] [facility] 084 Branch 2022-05-02 2022-05-02 Transition STEF Cochran [id number] Univers 00:00:00 00:00:00 of Care Lana VILLANUEVA 350.1.13.10 ity of [place] 4.2.7.2.686 [facility] [id number] [facility] 403 Branch 2022-04-27 2022-04-29 Inpatient X ELISEOHANS [facility] AV [id number] Univers 09:54:00 13:15:00 DARRYN ity [facility] 2022-04-27 2022-04-29 [facility] Viv Ventura [facility] 1.2.840.1 [id number] Univers 09:54:00 13:15:00 Encounter Jaci Estrella 350.1.13.10 ity of Darryn LandaJULIO 4.2.7.2.686 [facility] [id number] [place] [id number] Branch 2022-01-31 2022-01-31 Outpatient COH COH PIJFJJK QTO COH 00:00:00 00:00:00 [id number] 2022-01-30 2022-01-30 Emergency E SHINTHIA, [facility] [id number] Memoria 18:36:00 22:28:00 JOHN Andrew [facility] 2022-01-29 2022-01-30 Emergency E MARIAELENA DANG [facility] [id number] Memoria 21:25:00 00:58:00 GREGORIO Lyons l 2022-01-28 2022-01-28 Emergency E MARIAELENA DANG [facility] [id number] Memoria 11:02:00 14:55:00 GREGORIO manuel 2022-01-24 2022-01-27 Inpatient E AZAEL DANG MED 7500 Memoria 23:12:00 15:10:00 RJ Lyons l 2022-01-25 2022-01-25 Outpatient [facility] [id number] [place] 18:30:00 18:30:00 Health 2022-01-25 2022-01-25 Outpatient [facility] PIJFJJK [facility]:00 [facility]IN [id number] 1 Results Test Description Test Time Test Comments Results Result Comments Source COMP. METABOLIC PANEL (60575) 2022-07-03 05:30:27 Test Item Value Reference Range Interpretation Comme nts NA (test code = 2186207873) 140 mmol/L 135-145 K (test code = 3314837351) 4.2 mmol/L 3.5-5.0 CL (test code = 9623692838) 105 mmol/L 98-108 CO2 TOTAL (test code = 30 mmol/L 23-31 8002643798) AGAP (test code = 0963140345) 2-16 BUN (test code = 6897027257) 13 mg/dL 7-23 GLUCOSE (test code = 1125095277) 92 mg/dL 70-110 CREATININE (test code = 0.89 mg/dL 0.60-1.25 9083817191) TOTAL BILI (test code = 0.4 mg/dL 0.1-1.3 3489850204) CALCIUM (test code = 8013807902) 9.2 mg/dL 8.6-10.6 T PROTEIN (test code = 7.2 g/dL 6.3-8.2 1533390729) ALBUMIN (test code = 9450358320) 4.3 g/dL 3.5-5.0 ALK PHOS (test code = 4847090509) 62 U/L 34-122 ALTv (test code = 1742-6) 19 U/L 5-50 AST(SGOT) (test code = 32 U/L 13-40 6438540422) eGFR (test code = 3343833291) mL/min/1.73m2 ROBERTO (test code = ROBERTO) Association of Glomerular Filtration Rate (GFR) and Staging of Kidney Disease* + +--------- + ----+| GFR (mL/min/1.73 m2) ?| With Kidney Damage ?| ?Without Kidney Damage+ +--- + +| ?>90 ?| ?Stage one ?| ? Normal ?+ +-------- + -----+| ?60-89 ?| ?Stage two ?| ? Decreased GFR ? + +--------- + ----+| ?30-59 ?| ?Stage three ?| ? Stage three ? + +--------- + ----+| ?15-29 ?| ?Stage four ? | ? Stage four ?+ +-------- + -----+| ?<15 (or dialysis) ? ?| ?Stage five ? | ? Stage five ?+ +-------- + -----+ *Each stage assumes the associated GFR level has been in effect for at least three months. ?Stages 1 to 5, with or without kidney disease, indicate chronic kidney disease. Notes: Determination of stages one and two (with eGFR >59mL/min/1.73 m2) requires estimation of kidney damage for at least three months as defined by structural or functional abnormalities of the kidney, manifested by either:Pathological abnormalities or Markers of kidney damage (including abnormalities in the composition of the blood or urine or abnormalities in imaging tests). [facility] WITH [id number] 04:54:46 Test Item Value Reference Range Interpretation Comments WBC (test code = See_Comment [Automated 3190-2) message] The sy stem which generated this result transmitted reference range : 4.20 - 10.70 10*3/?L. The reference range was not used to interpret this result as normal/abnormal . RBC (test code = See_Comment [Automated 989-8) message] The sy stem which generated this result transmitted reference range : 4.26 - 5.52 10*6/?L. The reference range was not used to interpret this result as normal/abnormal . HGB (test code = 10.5 g/dL 12.2-16.4 L 718-7) HCT (test code = 37.5 % 38.4-49.3 L 4544-3) MCV (test code = 71.8 fL 81.7-95.6 L 787-2) MCH (test code = 20.1 pg 26.1-32.7 L 785-6) MCHC (test code = 28.0 g/dL 31.2-35.0 L 786-4) RDW-SD (test code = 47.4 fL 38.5-51.6 41565-2) RDW-CV (test code = 18.8 % 12.1-15.4 H 788-0) PLT (test code = See_Comment H [Automated 777-3) message] The sy stem which generated this result transmitted reference range : 150 - 328 10*3/ ?L. The reference r carlota was not used to interpret this result as normal/abnormal . MPV (test code = 9.9 fL 9.8-13.0 55614-9) NRBC/100 WBC (test See_Comment [Automat ed code = 1546265451) message] The system which generated this result transmitted reference range : 0.0 - 10.0 /100 WBCs. The refer ence range was not u sed to interpret th is result as normal/abnormal . NRBC x10^3 (test code See_Comment [Auto mated = 0816202203) message] The s ystem which generated this result transmitted reference range : 10*3/?L. The reference range was not used to interpret this result as normal/abnormal . GRAN MAT (NEUT) % 52.0 % (test code = 770-8) IMM GRAN % (test code 0.30 % = 6959379032) LYMPH % (test code = 28.1 % 736-9) MONO % (test code = 16.8 % 5905-5) EOS % (test code = 1.6 % 713-8) BASO % (test code = 1.2 % 706-2) GRAN MAT x10^3(ANC) 3.91 10*3/uL 1.99-6.95 (test code = 3968663392) IMM GRAN x10^3 (test 0.00-0.06 code = 0314823125) LYMPH x10^3 (test code 2.11 10*3/uL 1.09-3.23 = 731-0) MONO x10^3 (test code 1.26 10*3/uL 0.36-1.02 H = 742-7) EOS x10^3 (test code = 0.12 10*3/uL 0.06-0.53 711-2) BASO x10^3 (test code 0.09 10*3/uL 0.01-0.09 = 704-7) Lab Interpretation Abnormal (test code = 69785-8) [facility] [id number] 15:55:55 Test Item Value Reference Range Interpretation Comments Case Report (test code Surgical Pathology ? ? = [id number]) ?Case: [id number] ? Authorizing Provider: ?Marybel Sexton MD ? ? ? Collected: ? 05/13/2022 1129 ?Ordering Location: ? ? [facility] ? ? ?Received: ?05/13/2022 1621 ? [facility] ?Pathologist: ? Coleen Rosario MD ? Specimens: ? A) - LARGE INTESTINE, LEFT-DESCENDING COLON, random biopsies ? B) - LARGE INTESTINE, SIGMOID COLON, random biopsies ? C) - RECTUM, Random biopsies ? Final Diagnosis (test z2xyoAGiHLFfk9jxUHCasP code = 1990905560) FuZzEwMzNcZnRuYmpcdWMx IHtccnRmMVxlcGljMTAxMD YzAR7zhMhbsPk8rQivOVIo suP7tJMsASvhj9fvANY0d2 ihvxdhYTAhUBvjKf8cmMNl hPizGvBhFUKhSZd0zQ61XR TebW1fpFMaPGa5OHAfqKHi sgRfArOkSSPokMUawFH9XV NiHV4hohkmENxvCVyoEBVr cnH1BNHzhUYvY6KhPBOoTX 4ctjafZOF6WYykJWEvNEZ6 VtHnMRYaw0Aktpr6PvEraF FyZFxwbGFpblxmczIwXHBh klazyXN8KTfenR52VYNxkB rwTZQoZJWkAPRBTF9KOTLD UDPCYBEOB9OQUoQCDsovQU TAEbVQCBRRPX3DX5s9FAmm QZNogLrwOQIbXGvepX7sDU GyOVKpSGBZPW6WFIOzFARP I1MSPYyUWWkfSLkLDMLnFJ CILKPTWTZEYnlxN3HBTESm JQUSM3OYDrdnSI5QDoPYH8 IGIUfEZFAOX7FLMHWKFOTH VElDXHBhciAgICAgICAgSU 4NRQeIWuNFGURBDiDRUD6C WfYwCAAKMXCNVGhrVV8HSH CCUZWGALKZC6xPBESWPEZJ GFhiZNfPKI2ENOdKQzgcY5 1EG4nSBKNQILCQIVMMZDxw YXIgICAgICAgIFNFVkVSRU xZIEFDVElWRSBDSFJPTklD IENPTElUSVNccGFyICAgIC 7rRn0oJ2DSBdYKI22BNU3Y GSAGA6MEAIKGSGROUAQGFK lGSUVEIFxwYXJccGFyXGxp QVNkPLAuZAT8MLqyfU64RY JdRp5iG61VF83mAKXHG17D RANvJNHRAxGAJSRGCY3KG6 t2CVoiPMXehFckJILyJOso xN3pQIMtYT2eW61FI46EPb ICVDVIK5FdJ5lOXKUTHUYV XgnzT4NKVUVAYTdMGJXHXt lQVCBBQlNDRVNTLCBJTkNS RUFTRUQgTFlNUEhPUExBU0 4JB2cVBYZxzMSjEPJpOXPd RN7EKUfKBfQRPXVQMbOXFZ 6CRnLtKLBRNZZUEDscJD4N CLQDKMCUWEFVQ1uJMIMAUT GVSOokEEdAIP5RJPfBDbeu Q5SKUGUxHIISCGLSSQGebA XlHKChWPXuD24CZ7tNQOYI VCBXSVRIIFNFVkVSRUxZIE FDVElWRSBDSFJPTklDIENP KJlMQDUbpELyUXSwCJ9vHk 6hX5BAMrEAY22EBB6GNVMY F9NEAIPQQLBRYSGOOSbRNF VEIFxwYXJccGFyXGxpNDUw UPLyFME8TPqlkQ85BGHdYx 2gXcJKRRCLURYPQV9WC02i QklPUFNZOiBccGFyXGxpMF xmaTBcbGluMCAgICAtIENP BS7OIPKlOTJOS5NPHJaWNL ggVUxDRVIsIENSWVBUSVRJ VdcmI0HNCLIrAHGKQ4OFJa ezFH1RNcQOI4JNMJgMJBFD J9GPYFGHWUSSDQjSDFKnyk AgICAgIElORklMVFJBVEUg ST2oMGSONE5UDDQFM4TDEF EsIEFORCBDUllQVCBBUkNI VMMWX1WFKcLAPBSCE9SNEy SQF22gJRSMPHKVTBEOI7Ks G9EGWKjcVBZuKBRrLGEZR6 3ZULNZYF9TCUbIIJpmH5FH RVJFTFkgQUNUSVZFIENIUk 9WAJQaGWAOD2ZGTWqCHZRo wmKsYVKtXQ4NUMaRRZ6UCU 9NQSBPUiBEWVNQTEFTSUEg SURFTlRJRklFRCBccGFyXH RhaceeeiWtIOdfQus5OWHf LGlbHU4tZDLHGVWrRI0kFE 7wOSBmBMp1KFinGN7hjAFf VEVllhAvCsTeSIwlRNO9c2 xydGYxXHNzdGVjZjIyMDAw VGZhf4keYGDpsNWoCbPdLs NcZnRuYmpcdWMxXGRlZmYw x9caf178qOPbu3juJERkJu K2hFOgSNFckScvfrn4mWcu OhNuODAnc5jlhpCsOuJkBH MoEWDxHVAznZSmO392FEIa CNtdb7lym4JtWKJnmLHtm7 R9QNDGUNmnXdAeN504o5xn r1nrfpVecGL4JIWnVOQ8TP wywtSxwpO4UDutcVBcIyR6 IDtccmVkMFxncmVlbjBcYm x4YJPdE087QCL5yGfjz4rg IPP0SNCkZFOhIevwGx4riO FaJ897BMTtLJZVEYSiaIo4 QMZgtjDzdvFftXPSt052B4 12d3ebXCQtdzGmcGyFyika a7tuU030TCGuyXWnirWeKh QxVKPrkUWwbJY4NLFtUN4n hibtDDfjLTnxKJOcjlS2XH TakAXcE9VvCVIhLT3ouxxk CVC2GYgpMFEbDVR8SvPwTQ Hdt3Zgcjo1OdDzkh7jis54 XJP1e7LhpNqgMDW8PWJ3Xk HfMp3mwPDoFTUvMP9xCyOi tHGaXAGjlr24qBepTZdaxg VbfB4lIzNvMZLtqLZjZUOz GD6sbPQpRCOkrC5ycxxlNA BnYnJkcmhlYWRccGdicmRy Gi0hhUazBCF5KAuzO6binU 8nHdZ9PVdjW7qliR8nVMj4 NVuomOT8LEGnbS7lTL8chr gka7owNJwvBIvuJWJpwgB0 pvS1BCLsgFOoT4QwwD9vAK YlSZ0grhfhm7rzWPG8KAid HOPvNUR9KrXxWEYqg9Gpua b0PvSfi3XnoLQvQLhaN86l t198TRRwyuRvU5hmsVHlrh mmoEInpxxcFXshwkS1NYOr XHBsYWluXGYxXGZzMjBcbG FuZzEwMzNcaGljaFxmMVxk LiAuDUUfBOktE3iuLnVsU2 YyXGZzMjBccGFyIEkgaGF2 UZHqPKWfw52nmGj7KCTvfi tft9LaCPXcaDIcxTNgfX7o kfFzd0rzCUYeXAVmFKUyU0 GiNKY0wRHhCOCllAHnoQH0 US3ksnWzOH4sCPZfUkijgg AgjXZpagDcNISuKRtju4uh PR8mDZPbpYlflG0jiZI8TM Npo7kmkAEweGYte5thi1Jf bmFtZShzKSBtYXkgYXBwZW IqFS3nXEWoeUEnrfKle7V0 FnohsAIayfjeGefhplB0JT qalgqoGADgAQvgN5wbCyKo EWAvzGamZfsjq1TfZSQcWY ZzMjhccGFyfX0= Final Diagnosis Comment n3rfmMHpHVYapCMzUQNrX9 (test code = tjsgWiGLKlpRMbW4Pggjqj 3099195914) TLsfCO0lAH1euRikaRAjvY WtGGMwKzBfq0grn524fTJu r9beHUWVylynqUe6pSytC3 6ds3Y5GzueE72sgBAxXEZ3 PTQjXIQssTYxCCUfYIR2YP YprIIyA5kkZTLsHB0mtwhf SZetZUoyGHGcdMC2OODfzT WyM1UcFEFgKSgiSIPycuj5 FlJgVp2pqGPsxOjaZDvbVO JkXHBsYWluXGZzMjAgRHIu AIZjhTRcGYCjsvM4zOY5XU EzvOoxLBQtb4FeWY2gXYAu gbV1vtLrf5m6oHM7qLBaJA reM17zr5rxDfBoVUHuch4= Clinical Information colitis (test code = 1141112101) Gross Description (test x1mnrVAyAUOhyDCTJUDjQU code = 6016599512) XsDA7nqSzzwSm2rXssAXMr gxY4wMXiEGdab7qaPMM9g4 llbiANClxkZWZmMVxwYXBl dzgwKgA1TXswMGWgiqvwEV e9UFlnKODexRB8WINsiLFf Y2IjHZNhJS1ttkp3JUA2YW dwVYLsJyP6CJHkLqZiOxxm HKq1SHEgfoG3Haq5BONsYL FjcKUjy8A1PPcphnymOVId aGLuB735WAkdx1TmoZPlVO pccGFyZCANCntcKlxlcGlj p5HhjKMtUYakOENeRLWeKD oqdwyfAVh9YTTiHForiTRf JD5fbKurRllcsRxqk2FfhI BcXGlkIDUxMDAyIFxcZGIg RX9IVhTcLHO1LXhsPflhGD c4ZJa8KC3OXdOzREKpKWFm EoV3PBYfKDo2UFifBH4IGZ M4RUW1USV8OMAqHSKnYubz NAr0KNBgNEdwACOiyOAvHE kaAgCyHYHsOPveoSFtEW2x fVxwbGFpblxmczIwIFNQRU FTWONUDAPgmMYzMK1GJXHj XFzhXDEpoKJMUPO8FO5jTC ANClxsdHJwYXJcbGluMFxy vB5qEM4WEWb5weCnTPMlJu HoP4FaJ3ncLX2jJJDxqeBm MZCvmUBwHZDryhDow8RwAD mojjNzKNCwkNivHBJ8nZLc NYEqQATmGHJmXL52WAvZRO MgbmFtZSwgVUggbnVtYmVy IGBgIGxhcmdlIGludGVzdG yiNLkniXSqvSXqXIMnRN6o kU8cDKGwBZ4kx55nHrczwG BhWEFsX3I4XRqWOTJntpYq W37gn7dqmWShc7AgnCFgxO lwbGUgdGFuLXBpbmsgaXJy CFq8pMRkNKSfMyCsxZdhb1 EaEJVeGVxnED47ijOsJQ5f LTAuMyBjbSBncmVhdGVzdC EbuK7ejiTni86iPEOpNWN1 QDDyEAT1ZFLqPKVazYAqtz McA4pfPSrytTGvNdTJrZIi p1McO8hbEP8zeMJjCqahgN WdGLRfjUcdl5BeiAYlPQDi e7AnuLBjLUwxYI0fREZ4Wz 0ofJLzTHPidyP1s5RpPPes GOOoXejbuM6sBVnyzD6jJT 1BVXCfgCHNJWY2XG2dXVb0 XXtpQVRlJ5SjR6GwwiFdjH EhCUXasgToy1kwSEC2WDXh zXPtgRIyGkHsFsmzQTF0UU RtSRnlNU9Mq8iyXINioFJn NSM3OEdxtOCcOPYcOOCgUO vhVgBhH6JDUBDtLjo6OxM8 QNYmDNr6KXayD6AGEFCgFT RfBhU6HVZ5ZoK3IIn4VMWX Rx7oEXP9BSKjKgXvNTG1TJ EzOSBcXHQgMiBcXGYgQXJp YWwgXFxmcyAxMCBcXGZsIF nkwfH2YOHqVYrjGWCrNbAy L3TXS6lRTX7lKurdHVQwJT zskLwczN4tKYCyM37rj5SZ p5TgSN8PRYp6zvYvetjplP 4hACUuifHbIRjgjISyN4ny TvMgSjUYkHEpsG8uigBYGR skITBdV2BthtGkVIiqTDXx rl1tiGclTElaScKxgDLcAV dpdGggdGhlIHBhdGllbnRc I3T7scLiTO6gYAHGKMWodA 2gXAGoOHAgyEUmV4KjxN53 GPP6iH4qOECrpDrei6epQE RbjL6dNBWrIR5di00bQcow fZVmDSMbT0R7UIdIIYWhwz AaR04of1srsDQro1EveLXn dGlwbGUgdGFuLXllbGxvdy NcwtIeW3JiJWRgi49tqMV9 hGNfwXQxJsBsI21xfsCcVB rwMiUhHP3rEEUyDQouCAqk APG9JZV4VWPveHKpu7ultc twMU8nMLspYN00REppNL6u FDAyEXpnNTFhX5PyS0J1RJ smBTOtNUPjrSGjhO4xhrSx arIeyGh5ABXxSDO1xUWkxX nyKFOgYqwqtEM0IISrGmVr edPgp9UvhKf8vCJbGImzZL GkvW4tzG8jUvCaJPeaujBk OTgefcRsOCmuPXFcY43ba8 FXp6TcTZQoy5azkCbxq2Ns dGVuZFxwYXJccGFyZFxzbC 2bHyLem3ywuPl4EYzlejZ7 LCIigf0tjRnbjE6gXKb5PF miEOOyG2GlP5LxCMjgZTR6 MTAwMiBcXGRiICBPVlIgIi CdPFN3CEK0MnK3OQl7BLFP QwMzRoSaTpLdFAZ3EiueAH y6MGb8FUxVQwFhRcJ0PVO5 XDTmKWP8KGE1IHawkJKjNG xcZiBBcmlhbCBcXGZzIDEw EZclUyclRRgkZ89woCkokW 8lPpXnIWJAQZEYDW3ELuCH XHBhciANClxwbGFpblxlcG ljTmVzdERvYzEgDQpcbHRy cGFyXGxpbjBccmluMCANCl xsdHJjaFxmczIyIFNwZWNp jFKfVCCreAFceuLiBZt1KJ EncB0mHk1mhGWijM6ekMWz NJmtZDPqr9z1aZP4rOInkN A0nEXndAguJtLuCP9zgGDq REAEGY27mKSpkhNcZEGgNI U6qO1eHMPenkKjqKXgvJ0n r4iic0dlSzLiJ8J9QFBoVW Cru29jhNU9viAfNbO6YTUh wyOeofSbJ7ZwVFTgn01ehK V0gSTyuCJzUeHxJ95xikJs LSflLfEdBT6mUWSxRQqoKV mtQFG4MCA5HXLzlYPwe3tj kgthAK55TYlpYC4dVPqzCL 4qZVTqKAevRQXrQ8ZyJ3T7 FVcwXUJjQXArgKLhqL8img YlvhCpfYa1APQiLKM2nVMb kBeqDYNcNfasrHK7MBQhVy RissBtb8QgaPh2oMAjJSzu BKIsvD0pgH3qQjRuVAylsi UgXGxpbmUgSnVsaWUgTWNJ zFmexcD4LJMOYJWtLOSHWE kNClxlcGljTmVzdERvYzBc foH1PFDkqGPhZQA6TJ4tEW ItcogxIIXqBTVlTOG7KUag mM57sOBkPRNaBQPxcBDrcC zuhNAibuMLEnrruB1iXpNd k5cgnAy2QCVLSskzkYBgsq uosoR4XWRxv0zqtShmo5Kk bRKqJL7yeZocyS5mJdDeFd ANCn0= Disclaimer (test code = s0cduANpGQNuq0sjASGvlW [id number]) FuZzEwMzNcZnRuYmpcdWMx BFcjyiBxSHuoz0YtK6UaIw AwMFxhbnNpXGRlZmxhbmcx FZRzQFB3ldWwDFFbRCrzIS LpGEdkSc4mhHBseHokCqQt VFMod7qwhxCCMAwhOvNrO1 26PFCeOEwza0ogk5XgSHPn tJHaz2Z5FTQZreeafJw5oY gzH77wm8T9AnufB9onTJCw RHBrT9ZuEH6fOTPnJzl1KG S0GKH4WKHcFEJoS6ZlBQ5j OYRiySGlCVf7a5slgWsbDM ExNPY0i2klYZgxqnCoRY4u zq2kaXh2e3sthpBmUWBfAK BeaFQHXJHdI1VmqBlhGm8b xRf8kGhuGkpjRSF7Ldu9DM 1wmi00rph8iDhvQFDfmrmz SdR2UWqpDMLpyhgmXRs7SY niXUDmzYY4XKQbpTHyP8Iw OGTjRY2hbyt2ZAQ0ZJjnHZ GrZwQ8VECoiICaORWluKjq SGdyj778OAS4MnFjAK0rW2 Tsm3R2bK9apHFmAXVpaQHe LiEcFBFnul3ibPSyCGnhr7 AwBHQ6fbS9gXHlfPXoCJFr FN84Zcevk6AnRaxfn4ZcI0 6piRI5CYwsy7fhYV0kEsM3 epQqXWvft6agmM5wLnB2ME htHF2aUL5kTYUuyP5qlnkz XHBnYnJkcmhlYWRccGdicm QzZf5icIzgSKM3WXsrX7sh vN2dMwU3YPwbQ8bxjP5qYW g1OIcmqYE6JMVyyH1kFZ8l psbjf2yxRJqxWXvoGYQkgh Q3urY0JZWxuTIiZ4PvmP4x YCGmCH6holyca3eiZPF4JZ kwHMCzVEQ9WcTlULRkc3Vu mjm8ZeSws3GdsFCaYEraD6 7cr536YSXjafVzX3dhyRCt tjbueOXsqmwgYRpcylC6OE PignFck2AlLNBtNZH2PIur CIbwgIWtAWSvdUsyy3hdS0 RscGFyXHBsYWluXGYxXGZz MjBcbGFuZzEwMzNcaGljaF vzYRkxQdQxYASpXGdlK1rg WjSgI0QcKPVsQhIbmOJwE0 ggVGhpcyByZXBvcnQgbWF5 FHdyP0j7NFTekmDqiTd0mz WbNaWgIYEmQXW1ROlagNRu GMLxh5LhuslqhDOzBb1byS MnXOCpzJ2yIYJnSHIxURfs JD3yeNf7JSYSmWZolMVeGp NVBOErWH46fzMlADTNacgy f6Z6XPpoCNJmz2LkiGBlZ4 lyn4IhITVmo86bDF8cb9B3 y4owVVP5EX3tn9NfBTGcqA FeqISnPVVsc5Wrsggub5Gh OYAtsoVuv6NoAYVzpaKrxZ EuHGDagqRhls4ytxLyKAVg OOUbD8HqxkfasZdzuuZaFT Iikz3wyqZjCOV0PEWGAQKa ZMAyi4NhcL2xgPWOSIU5xF Mkml1yatUWpSAfPNUmqc50 OBZlEC1yZ3ivXRTjOBZzuf DgtRCjs6JeLEIuzWR7bZOv GK2RRyRSu42vJOUrKCTDmt FnSJPewVuspAX4tnY4hD9o IChGREEpLlx+IFRoZSBGRE FyAM9nqsMfd5UfeuFtmLpk OMSyaNIas1CnhVGty9SzwK ebk4IinPIheMRcAQ5kLFMe clxwYXIgVVRNQiBMYWJvcm Q4o4WuNFIwEKIiSBI7xQha jst3TYGwzY8mTNMlR4ztwt kaFVbhHMUkq4ThgY3apNYV yQQjv0ZxoGEehFDYcVTdWW 5jywAaJOiRYRaUHRO5bqAi GFZrb2MaZRgqN7nyP00frB dxwSw4pIQ4EYE8oI9aIql+ IFxwYXJccGFyIEFwcHJvcH FsMAUaoIukwmZfG2EjukZn cU7jwLWipwNzQO4vFD2kG5 X3nXDzASSneqQuh1hkYEkt dmUgYmVlbiByZXZpZXdlZC Iyn8IjODgiRVG7LUvqgnIg bmNsdWRpbmcgSCZFLCBTcG HllKBqDVA2VMvbwvPehkKy JS8ctK2oyObjzX6zaFEabP U6litdBTBkRBBsjZxmKJGr KJ2qrPPpZECkpoRZyQtloO CkaI0qU7LpCGNmCJYpfx4d LRTgqG8wYEidy3FbnlkmDP PhVCAxSLUcafHcgp8gUHVe rUWVES5FKBhemWYzp3Tqwr GbM3bMNOV1ROZmZxSwZecv LIJcpTRgcKBvRHPloa88DA JriA4rpAgqWOAlnW6mbU6b aIqrdE6gMqMiGdHiGJjkRX 1fELApJ4yrmQRmYJSkQVRz U3myLnIjgI2ibVksXXedTf MfXuHjGJcmOZB9fZ== Embedded Images (test code = 3204404678) [facility] Culture - Peripheral # [id number] 20:01:59 Test Item Value Reference Range Interpretation Comments Blood Culture-Aerobic No organisms No growth Previo us (test code = 73878-5) isolated prelim inary verified result was Culture In Progress on 05/11/2022 at 18 01 CDTPrevious preliminary verified result was No growth a t 24 hours on 05/12/2022 at 15 01 CDTPrevious preliminary verified result was No growth a t 48 hours on 05/13/2022 at 15 02 CDTPrevious preliminary verified result was No growth a t 72 hours on 05/14/2022 at 15 01 CDT Blood No organisms No growth Previous Culture-Anaerobic isolated preliminar y (test code = 26567-5) verifi ed result was Culture In Progress on 05/11/2022 at 18 01 CDTPrevious preliminary verified result was No growth a t 24 hours on 05/12/2022 at 15 01 CDTPrevious preliminary verified result was No growth a t 48 hours on 05/13/2022 at 15 02 CDTPrevious preliminary verified result was No growth a t 72 hours on 05/14/2022 at 15 01 CDT Lab Interpretation Normal (test code = 60941-8) [facility] Culture - Peripheral # [id number] 20:01:59 Test Item Value Reference Range Interpretation Comments Blood Culture-Aerobic No organisms No growth Previo us (test code = 34026-9) isolated prelim inary verified result was Culture In Progress on 05/11/2022 at 18 01 CDTPrevious preliminary verified result was No growth a t 24 hours on 05/12/2022 at 15 CDTPrevious preliminary verified result was No growth a t 48 hours on 05/13/2022 at 15 02 CDTPrevious preliminary verified result was No growth a t 72 hours on 05/14/2022 at 15 01 CDT Blood No organisms No growth Previous Culture-Anaerobic isolated preliminar y (test code = 65066-4) verifi ed result was Culture In Progress on 05/11/2022 at 18 01 CDTPrevious preliminary verified result was No growth a t 24 hours on 05/12/2022 at 15 01 CDTPrevious preliminary verified result was No growth a t 48 hours on 05/13/2022 at 15 02 CDTPrevious preliminary verified result was No growth a t 72 hours on 05/14/2022 at 15 01 CDT Lab Interpretation Normal (test code = 44945-2) [facility] Culture - Peripheral # [id number] 20:01:59 Test Item Value Reference Range Interpretation Comments Blood Culture-Aerobic No organisms No growth Previo us (test code = 42593-4) isolated prelim inary verified result was Culture In Progress on 05/11/2022 at 18 01 CDTPrevious preliminary verified result was No growth a t 24 hours on 05/12/2022 at 15 CDTPrevious preliminary verified result was No growth a t 48 hours on 05/13/2022 at 15 02 CDTPrevious preliminary verified result was No growth a t 72 hours on 05/14/2022 at 15 01 CDT Blood No organisms No growth Previous Culture-Anaerobic isolated preliminar y (test code = 84848-3) verifi ed result was Culture In Progress on 05/11/2022 at 18 01 CDTPrevious preliminary verified result was No growth a t 24 hours on 05/12/2022 at 15 CDTPrevious preliminary verified result was No growth a t 48 hours on 05/13/2022 at 15 02 CDTPrevious preliminary verified result was No growth a t 72 hours on 05/14/2022 at 15 01 CDT Lab Interpretation Normal (test code = 22370-7) [facility] Culture - Peripheral # [id number] 20:01:59 Test Item Value Reference Range Interpretation Comments Blood Culture-Aerobic No organisms No growth Previo us (test code = 40307-5) isolated prelim inary verified result was Culture In Progress on 05/11/2022 at 18 01 CDTPrevious preliminary verified result was No growth a t 24 hours on 05/12/2022 at 15 CDTPrevious preliminary verified result was No growth a t 48 hours on 05/13/2022 at 15 02 CDTPrevious preliminary verified result was No growth a t 72 hours on 05/14/2022 at 15 01 CDT Blood No organisms No growth Previous Culture-Anaerobic isolated preliminar y (test code = 15170-9) verifi ed result was Culture In Progress on 05/11/2022 at 18 01 CDTPrevious preliminary verified result was No growth a t 24 hours on 05/12/2022 at 15 01 CDTPrevious preliminary verified result was No growth a t 48 hours on 05/13/2022 at 15 02 CDTPrevious preliminary verified result was No growth a t 72 hours on 05/14/2022 at 15 01 CDT Lab Interpretation Normal (test code = 68010-4) [facility] Routine 2022-05-13 13:43:26 Test Item Value Reference Range Interpretation Comments ABO & RH (test code O Positive Performe d at [facility] = 20) Laboratory [facility] [place], [place] [address]Toll Free: [phone] A No. [id number] IAT (test code = Negative Performed a t [facility] 1185) Laboratory [facility] [place], [place] [address]Toll Free: [phone] A No. [id number] [facility]-0500 Routine 2022-05-13 13:43:26 Test Item Value Reference Range Interpretation Comments ABO & RH (test code O Positive Performe d at [facility] = 20) Laboratory [facility] [place], [place] [address]Toll Free: [phone] A No. [id number] IAT (test code = Negative Performed a t [facility] 1185) Laboratory [facility] [place], [place] [address]Toll Free: [phone] A No. [id number] [facility] B12, [id number] 22:16:10 Test Item Value Reference Range Interpretation Comments VIT B12 (test code = 603 pg/mL 240-930 [id number]) ROBERTO (test code = ROBERTO) Biotin has been reported to cause a positive bias, interpret results relative to patient's use of biotin. Lab Interpretation (test Normal code = 65156-3) [facility], [id number] 22:16:10 Test Item Value Reference Range Interpretation Comments VIT B12 (test code = 603 pg/mL 240-930 [id number]) ROBERTO (test code = ROBERTO) Biotin has been reported to cause a positive bias, interpret results relative to patient's use of biotin. Lab Interpretation (test Normal code = 29222-4) [facility], [id number] 21:50:29 Test Item Value Reference Range Interpretation Comments VIT D 25OH (test code = 25-80 L 22734-2) ROBERTO (test code = ROBERTO) Deficiency: <20 ng/mLInsufficiency: 20-24 ng/mLOptimal: 25-80 ng/mL Lab Interpretation (test Abnormal code = 23381-5) [facility], [id number] 21:50:29 Test Item Value Reference Range Interpretation Comments VIT D 25OH (test code = 25-80 L 24938-8) ROBERTO (test code = ROBERTO) Deficiency: <20 ng/mLInsufficiency: 20-24 ng/mLOptimal: 25-80 ng/mL Lab Interpretation (test Abnormal code = 85770-1) [facility] [id number] 18:56:01 Test Item Value Reference Range Interpretation Comments CRP (test code = 0.9 mg/dL See_Comment H [Automated message] [id number]) The system [employer] generated this result transmit eunice reference range : <=0.8. The refe rence range was not u sed to interpret th is result as normal/abnormal . Lab Interpretation (test Abnormal code = 15223-1) [facility] [id number] 18:56:01 Test Item Value Reference Range Interpretation Comments CRP (test code = 0.9 mg/dL See_Comment H [Automated message] [id number]) The system [employer] generated this result transmit eunice reference range : <=0.8. The refe rence range was not u sed to interpret th is result as normal/abnormal . Lab Interpretation (test Abnormal code = 71658-8) [facility] [id number] 13:43:08 Test Item Value Reference Range Interpretation Comments TSH (test code = See_Comment H [Automated message] [id number]) The system [employer] generated this result transmitted ref erence range: 0.45 - 4 .70 mIU/L. The refe rence range was not u sed to interpret this result as normal/abnor mal. Lab Interpretation (test Abnormal code = 20994-2) [facility] [id number] 13:43:08 Test Item Value Reference Range Interpretation Comments TSH (test code = See_Comment H [Automated message] [id number]) The system [employer] generated this result transmitted ref erence range: 0.45 - 4 .70 mIU/L. The refe rence range was not u sed to interpret this result as normal/abnor mal. Lab Interpretation (test Abnormal code = 82859-5) [facility] [id number] 13:21:44 Test Item Value Reference Range Interpretation Comments NT-proBNP (test code 54 pg/mL See_Comment [Autom ated = [id number]) message] The system which generated this result transmitted reference range : <=125. The reference range was not used to interpret this result as normal/abnormal . ROBERTO (test code = ROBERTO) Biotin has been reported to cause a negative bias, interpret results relative to patient's use of biotin. Lab Interpretation Normal (test code = 19367-0) [facility] [id number] 13:21:44 Test Item Value Reference Range Interpretation Comments NT-proBNP (test code 54 pg/mL See_Comment [Autom ated = [id number]) message] The system which generated this result transmitted reference range : <=125. The reference range was not used to interpret this result as normal/abnormal . ROBERTO (test code = ROBERTO) Biotin has been reported to cause a negative bias, interpret results relative to patient's use of biotin. Lab Interpretation Normal (test code = 41894-4) [facility] DallasLIP[facility] (11735)(TOTAL CHOLESTEROL, TRIGLYCERIDES, HDL)2022-05-12 13:12:48 Test Item Value Reference Range Interpretation Comments CHOL (test code = 124 mg/dL 120-200 [id number]) HDL (test code = 27 mg/dL See_Comment L [Automated message] [id number]) The system [employer] generated this result transmit eunice reference range : >=40. The refer ence range was not u sed to interpret th is result as normal/abnormal . HDLC RATIO (test code = See_Comment [Au tomated message] [id number]) The system [employer] generated this result transmit eunice reference range : <=5.0. The refe rence range was not u sed to interpret th is result as normal/abnormal . TRIG (test code = 104 mg/dL 30-170 2908527687) LDL CHOL (test code = 76 mg/dL See_Comment [Auto mated message] 60526-4) The system [employer] generated this result transmit eunice reference range : <=160. The refe rence range was not u sed to interpret th is result as normal/abnormal . VLDL (test code = 21 mg/dL 5-60 8409234484) Lab Interpretation (test Abnormal code = 64947-5) [facility] DallasL[facility] (64866)(TOTAL CHOLESTEROL, TRIGLYCERIDES, HDL)2022-05-12 13:12:48 Test Item Value Reference Range Interpretation Comments CHOL (test code = 124 mg/dL 120-200 4070052230) HDL (test code = 27 mg/dL See_Comment L [Automated message] [id number]) The system [employer] generated this result transmit eunice reference range : >=40. The refer ence range was not u sed to interpret th is result as normal/abnormal . HDLC RATIO (test code = See_Comment [Au tomated message] [id number]) The system [employer] generated this result transmit eunice reference range : <=5.0. The refe rence range was not u sed to interpret th is result as normal/abnormal . TRIG (test code = 104 mg/dL 30-170 6923560278) LDL CHOL (test code = 76 mg/dL See_Comment [Auto mated message] 69905-5) The system [employer] generated this result transmit eunice reference range : <=160. The refe rence range was not u sed to interpret th is result as normal/abnormal . VLDL (test code = 21 mg/dL 5-60 [id number]) Lab Interpretation (test Abnormal code = 46981-5) [facility]20[facility] 13:12:47 Test Item Value Reference Range Interpretation Comments MAGNESIUM (test code = 2523889098) 1.8 mg/dL 1.7-2.4 Lab Interpretation (test code = Normal 69269-6) [facility] 13:12:47 Test Item Value Reference Range Interpretation Comments MAGNESIUM (test code = 6960369829) 1.8 mg/dL 1.7-2.4 Lab Interpretation (test code = Normal 47485-3) [facility] DallasCOMP. METABOLIC PANEL (92425)2022-05-12 13:12:27 Test Item Value Reference Range Interpretation Comments NA (test code = 139 mmol/L 135-145 5155482172) K (test code = 3.5 mmol/L 3.5-5 7498505335) CL (test code = 106 mmol/L 98-108 1634811803) CO2 TOTAL (test code = 27 mmol/L 23-31 7846389280) AGAP (test code = 2-16 9305880829) BUN (test code = 7 mg/dL 7-23 5197827815) GLUCOSE (test code = 87 mg/dL 70-110 5321327446) CREATININE (test code = 0.89 mg/dL 0.6-1.25 0043375688) TOTAL BILI (test code = 0.3 mg/dL 0.1-1.5 1409500736) CALCIUM (test code = 8.4 mg/dL 8.6-10.6 L 1055225906) T PROTEIN (test code = 6.7 g/dL 6.3-8.2 9843615551) ALBUMIN (test code = 3.5 g/dL 3.5-5 6165999105) ALK PHOS (test code = 81 U/L 34-122 6305401066) ALTv (test code = 13 U/L 5-50 1742-6) AST(SGOT) (test code = 22 U/L 13-40 5883478983) eGFR (test code = mL/min/1.73m2 8111946641) ROBERTO (test code = ROBERTO) Association of Glomerular Filtration Rate (GFR) and Staging of Kidney Disease* + --+ --+ ------+| GFR (mL/min/1.73 m2) ?| With Kidney Damage ?| ?Without Kidney Damage+ --------+ --------+ +| ?>90 ?| ?Stage one ?| ? Normal ?+ ---+ ---+ -------+| ?60-89 ?| ?Stage two ?| ? Decreased GFR ? + --+ --+ ------+| ?30-59 ?| ?Stage three ?| ? Stage three ? + --+ --+ ------+| ?15-29 ?| ?Stage four ? | ? Stage four ?+ ---+ ---+ -------+| ?<15 (or dialysis) ? ?| ?Stage five ? | ? Stage five ?+ ---+ ---+ -------+ *Each stage assumes the associated GFR level has been in effect for at least three months. ?Stages 1 to 5, with or without kidney disease, indicate chronic kidney disease. Notes: Determination of stages one and two (with eGFR >59mL/min/1.73 m2) requires estimation of kidney damage for at least three months as defined by structural or functional abnormalities of the kidney, manifested by either:Pathological abnormalities or Markers of kidney damage (including abnormalities in the composition of the blood or urine or abnormalities in imaging tests). Lab Interpretation Abnormal (test code = 42074-9) [facility] 13:12:27 Test Item Value Reference Range Interpretation Comments PHOSPHORUS (test code = 2457650766) 3.8 mg/dL 2.5-5 Lab Interpretation (test code = Normal 43949-2) [facility] ([id number])2022-05-12 13:12:27 Test Item Value Reference Range Interpretation Comments NA (test code = 139 mmol/L 135-145 8109955210) K (test code = 3.5 mmol/L 3.5-5 7600802414) CL (test code = 106 mmol/L 98-108 8563337329) CO2 TOTAL (test code = 27 mmol/L 23-31 8418305406) AGAP (test code = 2-16 2187179892) BUN (test code = 7 mg/dL 7-23 5185691774) GLUCOSE (test code = 87 mg/dL 70-110 0465189437) CREATININE (test code = 0.89 mg/dL 0.6-1.25 9559710136) TOTAL BILI (test code = 0.3 mg/dL 0.1-1.2 6949311139) CALCIUM (test code = 8.4 mg/dL 8.6-10.6 L 9454493477) T PROTEIN (test code = 6.7 g/dL 6.3-8.2 5274376316) ALBUMIN (test code = 3.5 g/dL 3.5-5 5967655572) ALK PHOS (test code = 81 U/L 34-122 3314028797) ALTv (test code = 13 U/L 5-50 1742-6) AST(SGOT) (test code = 22 U/L 13-40 3992909581) eGFR (test code = mL/min/1.73m2 0007547765) ROBERTO (test code = ROBERTO) Association of Glomerular Filtration Rate (GFR) and Staging of Kidney Disease* + --+ --+ ------+| GFR (mL/min/1.73 m2) ?| With Kidney Damage ?| ?Without Kidney Damage+ --------+ --------+ +| ?>90 ?| ?Stage one ?| ? Normal ?+ ---+ ---+ -------+| ?60-89 ?| ?Stage two ?| ? Decreased GFR ? + --+ --+ ------+| ?30-59 ?| ?Stage three ?| ? Stage three ? + --+ --+ ------+| ?15-29 ?| ?Stage four ? | ? Stage four ?+ ---+ ---+ -------+| ?<15 (or dialysis) ? ?| ?Stage five ? | ? Stage five ?+ ---+ ---+ -------+ *Each stage assumes the associated GFR level has been in effect for at least three months. ?Stages 1 to 5, with or without kidney disease, indicate chronic kidney disease. Notes: Determination of stages one and two (with eGFR >59mL/min/1.73 m2) requires estimation of kidney damage for at least three months as defined by structural or functional abnormalities of the kidney, manifested by either:Pathological abnormalities or Markers of kidney damage (including abnormalities in the composition of the blood or urine or abnormalities in imaging tests). Lab Interpretation Abnormal (test code = 05118-2) [facility] 13:12:27 Test Item Value Reference Range Interpretation Comments PHOSPHORUS (test code = 5718021616) 3.8 mg/dL 2.5-5 Lab Interpretation (test code = Normal 81331-3) [facility] WITH [id number] 13:09:25 Test Item Value Reference Range Interpretation Comments WBC (test code = See_Comment [Automated 6690-2) message] The sy stem which generated this result transmitted reference range : 4.20 - 10.70 10*3/?L. The reference range was not used to interpret this result as normal/abnormal . RBC (test code = See_Comment L [Automated 789-8) message] The sy stem which generated this result transmitted reference range : 4.26 - 5.52 10*6/?L. The reference range was not used to interpret this result as normal/abnormal . HGB (test code = 8.8 g/dL 12.2-16.4 L 718-7) HCT (test code = 30.0 % 38.4-49.3 L 4544-3) MCV (test code = 73.0 fL 81.7-95.6 L 787-2) MCH (test code = 21.4 pg 26.1-32.7 L 785-6) MCHC (test code = 29.3 g/dL 31.2-35 L 786-4) RDW-SD (test code = 39.2 fL 38.5-51.6 35573-8) RDW-CV (test code = 14.7 % 12.1-15.4 788-0) PLT (test code = See_Comment H [Automated 777-3) message] The sy stem which generated this result transmitted reference range : 150 - 328 10*3/ ?L. The reference r carlota was not used to interpret this result as normal/abnormal . MPV (test code = 10.1 fL 9.8-13 02837-5) NRBC/100 WBC (test See_Comment [Automat ed code = 0554862769) message] The system which generated this result transmitted reference range : 0.0 - 10.0 /100 WBCs. The refer ence range was not u sed to interpret th is result as normal/abnormal . NRBC x10^3 (test code See_Comment [Auto mated = 8465652276) message] The s ystem which generated this result transmitted reference range : 10*3/?L. The reference range was not used to interpret this result as normal/abnormal . GRAN MAT (NEUT) % 46.1 % (test code = 770-8) IMM GRAN % (test code 0.10 % = 4810718588) LYMPH % (test code = 33.9 % 736-9) MONO % (test code = 11.8 % 5905-5) EOS % (test code = 6.3 % 713-8) BASO % (test code = 1.8 % 706-2) GRAN MAT x10^3(ANC) 3.27 10*3/uL 1.99-6.95 (test code = 5051231020) IMM GRAN x10^3 (test 0-0.06 code = 4389184669) LYMPH x10^3 (test code 2.41 10*3/uL 1.09-3.23 = 731-0) MONO x10^3 (test code 0.84 10*3/uL 0.36-1.02 = 742-7) EOS x10^3 (test code = 0.45 10*3/uL 0.06-0.53 711-2) BASO x10^3 (test code 0.13 10*3/uL 0.01-0.09 H = 704-7) Lab Interpretation Abnormal (test code = 50474-1) [facility] WITH [id number] 13:09:25 Test Item Value Reference Range Interpretation Comments WBC (test code = See_Comment [Automated 5290-2) message] The sy stem which generated this result transmitted reference range : 4.20 - 10.70 10*3/?L. The reference range was not used to interpret this result as normal/abnormal . RBC (test code = See_Comment L [Automated 939-8) message] The sy stem which generated this result transmitted reference range : 4.26 - 5.52 10*6/?L. The reference range was not used to interpret this result as normal/abnormal . HGB (test code = 8.8 g/dL 12.2-16.4 L 718-7) HCT (test code = 30.0 % 38.4-49.3 L 4544-3) MCV (test code = 73.0 fL 81.7-95.6 L 787-2) MCH (test code = 21.4 pg 26.1-32.7 L 785-6) MCHC (test code = 29.3 g/dL 31.2-35 L 786-4) RDW-SD (test code = 39.2 fL 38.5-51.6 18374-1) RDW-CV (test code = 14.7 % 12.1-15.4 788-0) PLT (test code = See_Comment H [Automated 777-3) message] The sy stem which generated this result transmitted reference range : 150 - 328 10*3/ ?L. The reference r carlota was not used to interpret this result as normal/abnormal . MPV (test code = 10.1 fL 9.8-13 83532-7) NRBC/100 WBC (test See_Comment [Automat ed code = 7877673126) message] The system which generated this result transmitted reference range : 0.0 - 10.0 /100 WBCs. The refer ence range was not u sed to interpret th is result as normal/abnormal . NRBC x10^3 (test code See_Comment [Auto mated = 8736331673) message] The s ystem which generated this result transmitted reference range : 10*3/?L. The reference range was not used to interpret this result as normal/abnormal . GRAN MAT (NEUT) % 46.1 % (test code = 770-8) IMM GRAN % (test code 0.10 % = 0583386289) LYMPH % (test code = 33.9 % 736-9) MONO % (test code = 11.8 % 5905-5) EOS % (test code = 6.3 % 713-8) BASO % (test code = 1.8 % 706-2) GRAN MAT x10^3(ANC) 3.27 10*3/uL 1.99-6.95 (test code = 9305227271) IMM GRAN x10^3 (test 0-0.06 code = 2465023158) LYMPH x10^3 (test code 2.41 10*3/uL 1.09-3.23 = 731-0) MONO x10^3 (test code 0.84 10*3/uL 0.36-1.02 = 742-7) EOS x10^3 (test code = 0.45 10*3/uL 0.06-0.53 711-2) BASO x10^3 (test code 0.13 10*3/uL 0.01-0.09 H = 704-7) Lab Interpretation Abnormal (test code = 16866-5) [facility] / [id number] 13:06:44 Test Item Value Reference Range Interpretation Comments PROTIME PATIENT (test See_Comment H [Auto mated message] code = 5964-2) The system [employer] generated this result transmitted ref erence range: 12.0 - 1 4.7 Seconds. The reference range was not used to int erpret this result as normal/abnormal . INR (test code = 6301-6) Nor mal INR <1.1; Warfarin Therap eutic range 2.0 to 3. 0 or 2.5 to 3.5, dep ending upon the indica tions. Lab Interpretation (test Abnormal code = 85666-3) [facility] / [id number] 13:06:44 Test Item Value Reference Range Interpretation Comments PROTIME PATIENT (test See_Comment H [Auto mated message] code = 5964-2) The system [employer] generated this result transmitted ref erence range: 12.0 - 1 4.7 Seconds. The reference range was not used to int erpret this result as normal/abnormal . INR (test code = 6301-6) Nor mal INR <1.1; Warfarin Therap eutic range 2.0 to 3. 0 or 2.5 to 3.5, dep ending upon the indica tions. Lab Interpretation (test Abnormal code = 45899-8) [facility] [id number] 02:59:10 Test Item Value Reference Range Interpretation Comments ESR (test code = See_Comment H [Automated message] 21687-1) The system [facility] [employer] generated this result transmitted ref erence range: 0 - 10 m m/HR. The reference r carlota was not used to interpret this result as normal/abnor mal. Lab Interpretation (test Abnormal code = 33093-8) [facility] [id number] 02:59:10 Test Item Value Reference Range Interpretation Comments ESR (test code = See_Comment H [Automated message] 95812-9) The system [employer] generated this result transmitted ref erence range: 0 - 10 m m/HR. The reference r carlota was not used to interpret this result as normal/abnor mal. Lab Interpretation (test Abnormal code = 47707-1) [facility]OSYL[facility]GLOBIN (A1C)2022-05-12 02:20:40 Test Item Value Reference Range Interpretation Comments HGB A1C (test code = 6.1 % 4-5.7 H 4548-4) ROBERTO (test code = ROBERTO) Reference RangesNormal: <5.7%Prediabetes: 5.7 - 6.4%Diabetes: > 6.5% Lab Interpretation (test Abnormal code = 24449-1) [facility] (A1C)2022-05-12 02:20:40 Test Item Value Reference Range Interpretation Comments HGB A1C (test code = 6.1 % 4-5.7 H 4548-4) ROBERTO (test code = ROBERTO) Reference RangesNormal: <5.7%Prediabetes: 5.7 - 6.4%Diabetes: > 6.5% Lab Interpretation (test Abnormal code = 07437-5) [facility]. MET[facility]OLIC PANEL ([id number])2022-05-11 19:45:12 Test Item Value Reference Range Interpretation Comments NA (test code = 139 mmol/L 135-145 6891012670) K (test code = 4.1 mmol/L 3.5-5 6805401814) CL (test code = 105 mmol/L 98-108 6796052764) CO2 TOTAL (test code 24 mmol/L 23-31 = 9950955106) AGAP (test code = 2-16 0337152569) BUN (test code = 8 mg/dL 7-23 7738634180) GLUCOSE (test code = 84 mg/dL 70-110 6561875196) CREATININE (test code 0.93 mg/dL 0.6-1.25 = 3690136061) TOTAL BILI (test code 0.3 mg/dL 0.1-1.1 = 3397649823) CALCIUM (test code = 9.4 mg/dL 8.6-10.6 2166417645) T PROTEIN (test code 7.3 g/dL 6.3-8.2 = 5985706410) ALBUMIN (test code = 4.0 g/dL 3.5-5 0081141354) ALK PHOS (test code = 85 U/L 34-122 4071737269) ALTv (test code = 14 U/L 5-50 1742-6) AST(SGOT) (test code 21 U/L 13-40 = 8004233086) eGFR (test code = mL/min/1.73m2 3374216773) ROBERTO (test code = ROBERTO) Association of Glomerular Filtration Rate (GFR) and Staging of Kidney Disease* + + +- +| GFR (mL/min/1.73 m2) ?| With Kidney Damage ?| ?Without Kidney Damage+ ------+ ----+ ------+| ?>90 ?| ?Stage one ?| ? Normal ?+ -+ + -+| ?60-89 ?| ?Stage two ?| ? Decreased GFR ? + + +- +| ?30-59 ?| ?Stage three ?| ? Stage three ? + + +- +| ?15-29 ?| ?Stage four ? | ? Stage four ?+ -+ + -+| ?<15 (or dialysis) ? ?| ?Stage five ? | ? Stage five ?+ -+ + -+ *Each stage assumes the associated GFR level has been in effect for at least three months. ?Stages 1 to 5, with or without kidney disease, indicate chronic kidney disease. Notes: Determination of stages one and two (with eGFR >59mL/min/1.73 m2) requires estimation of kidney damage for at least three months as defined by structural or functional abnormalities of the kidney, manifested by either:Pathological abnormalities or Markers of kidney damage (including abnormalities in the composition of the blood or urine or abnormalities in imaging tests). [facility]. METABOLIC PANEL ([id number])2022-05-11 19:45:12 Test Item Value Reference Range Interpretation Comments NA (test code = 139 mmol/L 135-145 6025355213) K (test code = 4.1 mmol/L 3.5-5 9525974459) CL (test code = 105 mmol/L 98-108 3560802312) CO2 TOTAL (test code 24 mmol/L 23-31 = 6270698412) AGAP (test code = 2-16 2575830566) BUN (test code = 8 mg/dL 7-23 4077719769) GLUCOSE (test code = 84 mg/dL 70-110 7639904486) CREATININE (test code 0.93 mg/dL 0.6-1.25 = 0495811381) TOTAL BILI (test code 0.3 mg/dL 0.1-1.1 = 1106474520) CALCIUM (test code = 9.4 mg/dL 8.6-10.6 2323450524) T PROTEIN (test code 7.3 g/dL 6.3-8.2 = 1585568970) ALBUMIN (test code = 4.0 g/dL 3.5-5 9997160513) ALK PHOS (test code = 85 U/L 34-122 9050294227) ALTv (test code = 14 U/L 5-50 1742-6) AST(SGOT) (test code 21 U/L 13-40 = 9769857759) eGFR (test code = mL/min/1.73m2 3926242861) ROBERTO (test code = ROBERTO) Association of Glomerular Filtration Rate (GFR) and Staging of Kidney Disease* + + +- +| GFR (mL/min/1.73 m2) ?| With Kidney Damage ?| ?Without Kidney Damage+ ------+ ----+ ------+| ?>90 ?| ?Stage one ?| ? Normal ?+ -+ + -+| ?60-89 ?| ?Stage two ?| ? Decreased GFR ? + + +- +| ?30-59 ?| ?Stage three ?| ? Stage three ? + + +- +| ?15-29 ?| ?Stage four ? | ? Stage four ?+ -+ + -+| ?<15 (or dialysis) ? ?| ?Stage five ? | ? Stage five ?+ -+ + -+ *Each stage assumes the associated GFR level has been in effect for at least three months. ?Stages 1 to 5, with or without kidney disease, indicate chronic kidney disease. Notes: Determination of stages one and two (with eGFR >59mL/min/1.73 m2) requires estimation of kidney damage for at least three months as defined by structural or functional abnormalities of the kidney, manifested by either:Pathological abnormalities or Markers of kidney damage (including abnormalities in the composition of the blood or urine or abnormalities in imaging tests). [facility] 19:44:31 Test Item Value Reference Range Interpretation Comments LIPASE (test code = 6126463324) 116 U/L 0-220 Lab Interpretation (test code = Normal 81101-8) [facility] 19:44:31 Test Item Value Reference Range Interpretation Comments LIPASE (test code = 1104868273) 116 U/L 0-220 Lab Interpretation (test code = Normal 21065-3) [facility] WITH [id number] 19:33:50 Test Item Value Reference Range Interpretation Comments WBC (test code = See_Comment [Automated 6690-2) message] The sy stem which generated this result transmitted reference range : 4.20 - 10.70 10*3/?L. The reference range was not used to interpret this result as normal/abnormal . RBC (test code = See_Comment [Automated 789-8) message] The sy stem which generated this result transmitted reference range : 4.26 - 5.52 10*6/?L. The reference range was not used to interpret this result as normal/abnormal . HGB (test code = 9.5 g/dL 12.2-16.4 L 718-7) HCT (test code = 32.2 % 38.4-49.3 L 4544-3) MCV (test code = 72.5 fL 81.7-95.6 L 787-2) MCH (test code = 21.4 pg 26.1-32.7 L 785-6) MCHC (test code = 29.5 g/dL 31.2-35 L 786-4) RDW-SD (test code = 38.9 fL 38.5-51.6 99243-8) RDW-CV (test code = 14.7 % 12.1-15.4 788-0) PLT (test code = See_Comment H [Automated 777-3) message] The sy stem which generated this result transmitted reference range : 150 - 328 10*3/ ?L. The reference r carlota was not used to interpret this result as normal/abnormal . MPV (test code = 10.1 fL 9.8-13 71772-4) NRBC/100 WBC (test See_Comment [Automat ed code = 0344552030) message] The system which generated this result transmitted reference range : 0.0 - 10.0 /100 WBCs. The refer ence range was not u sed to interpret th is result as normal/abnormal . NRBC x10^3 (test code See_Comment [Auto mated = 0048598803) message] The s ystem which generated this result transmitted reference range : 10*3/?L. The reference range was not used to interpret this result as normal/abnormal . GRAN MAT (NEUT) % 50.3 % (test code = 770-8) IMM GRAN % (test code 0.00 % = 5267526254) LYMPH % (test code = 28.7 % 736-9) MONO % (test code = 13.9 % 5905-5) EOS % (test code = 5.3 % 713-8) BASO % (test code = 1.8 % 706-2) GRAN MAT x10^3(ANC) 3.14 10*3/uL 1.99-6.95 (test code = 3809708836) IMM GRAN x10^3 (test 0-0.06 code = 7428141145) LYMPH x10^3 (test code 1.79 10*3/uL 1.09-3.23 = 731-0) MONO x10^3 (test code 0.87 10*3/uL 0.36-1.02 = 742-7) EOS x10^3 (test code = 0.33 10*3/uL 0.06-0.53 711-2) BASO x10^3 (test code 0.11 10*3/uL 0.01-0.09 H = 704-7) Lab Interpretation Abnormal (test code = 78026-8) [facility] WITH [id number] 19:33:50 Test Item Value Reference Range Interpretation Comments WBC (test code = See_Comment [Automated 6690-2) message] The sy stem which generated this result transmitted reference range : 4.20 - 10.70 10*3/?L. The reference range was not used to interpret this result as normal/abnormal . RBC (test code = See_Comment [Automated 789-8) message] The sy stem which generated this result transmitted reference range : 4.26 - 5.52 10*6/?L. The reference range was not used to interpret this result as normal/abnormal . HGB (test code = 9.5 g/dL 12.2-16.4 L 718-7) HCT (test code = 32.2 % 38.4-49.3 L 4544-3) MCV (test code = 72.5 fL 81.7-95.6 L 787-2) MCH (test code = 21.4 pg 26.1-32.7 L 785-6) MCHC (test code = 29.5 g/dL 31.2-35 L 786-4) RDW-SD (test code = 38.9 fL 38.5-51.6 73779-0) RDW-CV (test code = 14.7 % 12.1-15.4 788-0) PLT (test code = See_Comment H [Automated 777-3) message] The sy stem which generated this result transmitted reference range : 150 - 328 10*3/ ?L. The reference r carlota was not used to interpret this result as normal/abnormal . MPV (test code = 10.1 fL 9.8-13 27251-0) NRBC/100 WBC (test See_Comment [Automat ed code = 9647448762) message] The system which generated this result transmitted reference range : 0.0 - 10.0 /100 WBCs. The refer ence range was not u sed to interpret th is result as normal/abnormal . NRBC x10^3 (test code See_Comment [Auto mated = 8132707402) message] The s ystem which generated this result transmitted reference range : 10*3/?L. The reference range was not used to interpret this result as normal/abnormal . GRAN MAT (NEUT) % 50.3 % (test code = 770-8) IMM GRAN % (test code 0.00 % = 7842253307) LYMPH % (test code = 28.7 % 736-9) MONO % (test code = 13.9 % 5905-5) EOS % (test code = 5.3 % 713-8) BASO % (test code = 1.8 % 706-2) GRAN MAT x10^3(ANC) 3.14 10*3/uL 1.99-6.95 (test code = 3739259324) IMM GRAN x10^3 (test 0-0.06 code = 8841091714) LYMPH x10^3 (test code 1.79 10*3/uL 1.09-3.23 = 731-0) MONO x10^3 (test code 0.87 10*3/uL 0.36-1.02 = 742-7) EOS x10^3 (test code = 0.33 10*3/uL 0.06-0.53 711-2) BASO x10^3 (test code 0.11 10*3/uL 0.01-0.09 H = 704-7) Lab Interpretation Abnormal (test code = 15230-0) [facility] - ONCE [id number] 03:41:38 Test Item Value Reference Range Interpretation Comments ABO & RH (test code O Positive Performe d at [facility] = 20) Laboratory Serv [facility] [place], [place] [address]Toll Free: [phone] A No. [id number] IAT (test code = Negative Performed a t [facility] 1185) Laboratory Serv [facility] [place], [place] [address]Toll Free: [phone] A No. [id number] [facility] MET[facility]OLIC PANEL ([id number])2022-05-10 03:15:48 Test Item Value Reference Range Interpretation Comments NA (test code = 135 mmol/L 135-145 9408634416) K (test code = 4.2 mmol/L 3.5-5 2209477450) CL (test code = 104 mmol/L 98-108 5106442129) CO2 TOTAL (test code = 23 mmol/L 23-31 8711948766) AGAP (test code = 2-16 6058026161) BUN (test code = 9 mg/dL 7-23 3645723319) GLUCOSE (test code = 100 mg/dL 70-110 9522607044) CREATININE (test code = 0.89 mg/dL 0.6-1.25 2381074400) TOTAL BILI (test code = 0.3 mg/dL 0.1-1.9 9040693315) CALCIUM (test code = 8.5 mg/dL 8.6-10.6 L 8276376866) T PROTEIN (test code = 6.6 g/dL 6.3-8.2 9646807556) ALBUMIN (test code = 3.6 g/dL 3.5-5 6354533254) ALK PHOS (test code = 80 U/L 34-122 9826516882) ALTv (test code = 13 U/L 5-50 1742-6) AST(SGOT) (test code = 22 U/L 13-40 2784167382) eGFR (test code = mL/min/1.73m2 0930271739) ROBERTO (test code = ROBERTO) Association of Glomerular Filtration Rate (GFR) and Staging of Kidney Disease* + --+ --+ ------+| GFR (mL/min/1.73 m2) ?| With Kidney Damage ?| ?Without Kidney Damage+ --------+ --------+ +| ?>90 ?| ?Stage one ?| ? Normal ?+ ---+ ---+ -------+| ?60-89 ?| ?Stage two ?| ? Decreased GFR ? + --+ --+ ------+| ?30-59 ?| ?Stage three ?| ? Stage three ? + --+ --+ ------+| ?15-29 ?| ?Stage four ? | ? Stage four ?+ ---+ ---+ -------+| ?<15 (or dialysis) ? ?| ?Stage five ? | ? Stage five ?+ ---+ ---+ -------+ *Each stage assumes the associated GFR level has been in effect for at least three months. ?Stages 1 to 5, with or without kidney disease, indicate chronic kidney disease. Notes: Determination of stages one and two (with eGFR >59mL/min/1.73 m2) requires estimation of kidney damage for at least three months as defined by structural or functional abnormalities of the kidney, manifested by either:Pathological abnormalities or Markers of kidney damage (including abnormalities in the composition of the blood or urine or abnormalities in imaging tests). Lab Interpretation Abnormal (test code = 39514-0) [facility] 03:15:08 Test Item Value Reference Range Interpretation Comments LIPASE (test code = 1588564351) 105 U/L 0-220 Lab Interpretation (test code = Normal 24953-0) [facility] WITH [id number] 03:02:08 Test Item Value Reference Range Interpretation Comments WBC (test code = See_Comment [Automated 6690-2) message] The sy stem which generated this result transmitted reference range : 4.20 - 10.70 10*3/?L. The reference range was not used to interpret this result as normal/abnormal . RBC (test code = See_Comment L [Automated 789-8) message] The sy stem which generated this result transmitted reference range : 4.26 - 5.52 10*6/?L. The reference range was not used to interpret this result as normal/abnormal . HGB (test code = 8.4 g/dL 12.2-16.4 L 718-7) HCT (test code = 27.3 % 38.4-49.3 L 4544-3) MCV (test code = 71.3 fL 81.7-95.6 L 787-2) MCH (test code = 21.9 pg 26.1-32.7 L 785-6) MCHC (test code = 30.8 g/dL 31.2-35 L 786-4) RDW-SD (test code = 38.0 fL 38.5-51.6 L 63617-1) RDW-CV (test code = 14.9 % 12.1-15.4 788-0) PLT (test code = See_Comment H [Automated 777-3) message] The sy stem which generated this result transmitted reference range : 150 - 328 10*3/ ?L. The reference r carlota was not used to interpret this result as normal/abnormal . MPV (test code = 9.8 fL 9.8-13 36196-1) NRBC/100 WBC (test See_Comment [Automat ed code = 8941545937) message] The system which generated this result transmitted reference range : 0.0 - 10.0 /100 WBCs. The refer ence range was not u sed to interpret th is result as normal/abnormal . NRBC x10^3 (test code See_Comment [Auto mated = 2769559877) message] The s ystem which generated this result transmitted reference range : 10*3/?L. The reference range was not used to interpret this result as normal/abnormal . GRAN MAT (NEUT) % 51.8 % (test code = 770-8) IMM GRAN % (test code 0.40 % = 8209071912) LYMPH % (test code = 29.9 % 736-9) MONO % (test code = 10.2 % 5905-5) EOS % (test code = 5.8 % 713-8) BASO % (test code = 1.9 % 706-2) GRAN MAT x10^3(ANC) 4.17 10*3/uL 1.99-6.95 (test code = 7327501344) IMM GRAN x10^3 (test 0.03 10*3/uL 0-0.06 code = 8555963654) LYMPH x10^3 (test code 2.41 10*3/uL 1.09-3.23 = 731-0) MONO x10^3 (test code 0.82 10*3/uL 0.36-1.02 = 742-7) EOS x10^3 (test code = 0.47 10*3/uL 0.06-0.53 711-2) BASO x10^3 (test code 0.15 10*3/uL 0.01-0.09 H = 704-7) Lab Interpretation Abnormal (test code = 22603-5) [id number] 14:20:24 Test Item Value Reference Range Interpretation Comments CRP (test code = 1.3 mg/dL See_Comment H [Automated message] [id number]) The system whic h generated this result transmit eunice reference range : <=0.8. The refe rence range was not u sed to interpret th is result as normal/abnormal . Lab Interpretation (test Abnormal code = 20946-1) [facility] METABOLIC PANEL (NA, K, CL, CO2, GLUCOSE, BUN, CREATININE, CA)2022-04-28 11:21:59 Test Item Value Reference Range Interpretation Comments NA (test code = 134 mmol/L 135-145 L [id number]) K (test code = 3.9 mmol/L 3.5-5 1448459766) CL (test code = 105 mmol/L 98-108 4178203376) CO2 TOTAL (test code = 26 mmol/L 23-31 9637125401) AGAP (test code = 2-16 4480738191) BUN (test code = 5 mg/dL 7-23 L 0833845501) GLUCOSE (test code = 76 mg/dL 70-110 1868558822) CREATININE (test code = 0.88 mg/dL 0.6-1.25 8541646717) CALCIUM (test code = 8.2 mg/dL 8.6-10.6 L 7076390843) eGFR (test code = mL/min/1.73m2 6525213569) ROBERTO (test code = ROBERTO) Association of Glomerular Filtration Rate (GFR) and Staging of Kidney Disease* + --+ --+ ------+| GFR (mL/min/1.73 m2) ?| With Kidney Damage ?| ?Without Kidney Damage+ --------+ --------+ +| ?>90 ?| ?Stage one ?| ? Normal ?+ ---+ ---+ -------+| ?60-89 ?| ?Stage two ?| ? Decreased GFR ? + --+ --+ ------+| ?30-59 ?| ?Stage three ?| ? Stage three ? + --+ --+ ------+| ?15-29 ?| ?Stage four ? | ? Stage four ?+ ---+ ---+ -------+| ?<15 (or dialysis) ? ?| ?Stage five ? | ? Stage five ?+ ---+ ---+ -------+ *Each stage assumes the associated GFR level has been in effect for at least three months. ?Stages 1 to 5, with or without kidney disease, indicate chronic kidney disease. Notes: Determination of stages one and two (with eGFR >59mL/min/1.73 m2) requires estimation of kidney damage for at least three months as defined by structural or functional abnormalities of the kidney, manifested by either:Pathological abnormalities or Markers of kidney damage (including abnormalities in the composition of the blood or urine or abnormalities in imaging tests). Lab Interpretation Abnormal (test code = 62526-2) [facility] WITH [id number] 11:21:23 Test Item Value Reference Range Interpretation Comments WBC (test code = See_Comment [Automated 6690-2) message] The sy stem which generated this result transmitted reference range : 4.20 - 10.70 10*3/?L. The reference range was not used to interpret this result as normal/abnormal . RBC (test code = See_Comment L [Automated 789-8) message] The sy stem which generated this result transmitted reference range : 4.26 - 5.52 10*6/?L. The reference range was not used to interpret this result as normal/abnormal . HGB (test code = 8.9 g/dL 12.2-16.4 L 718-7) HCT (test code = 29.6 % 38.4-49.3 L 4544-3) MCV (test code = 73.8 fL 81.7-95.6 L 787-2) MCH (test code = 22.2 pg 26.1-32.7 L 785-6) MCHC (test code = 30.1 g/dL 31.2-35 L 786-4) RDW-SD (test code = 40.4 fL 38.5-51.6 44808-8) RDW-CV (test code = 15.3 % 12.1-15.4 788-0) PLT (test code = See_Comment H [Automated 777-3) message] The sy stem which generated this result transmitted reference range : 150 - 328 10*3/ ?L. The reference r carlota was not used to interpret this result as normal/abnormal . MPV (test code = 9.8 fL 9.8-13 49463-9) NRBC/100 WBC (test See_Comment [Automat ed code = 4934894545) message] The system which generated this result transmitted reference range : 0.0 - 10.0 /100 WBCs. The refer ence range was not u sed to interpret th is result as normal/abnormal . NRBC x10^3 (test code See_Comment [Auto mated = 9167185939) message] The s ystem which generated this result transmitted reference range : 10*3/?L. The reference range was not used to interpret this result as normal/abnormal . GRAN MAT (NEUT) % 51.9 % (test code = 770-8) IMM GRAN % (test code 0.50 % = 5574652972) LYMPH % (test code = 25.7 % 736-9) MONO % (test code = 17.4 % 5905-5) EOS % (test code = 3.2 % 713-8) BASO % (test code = 1.3 % 706-2) GRAN MAT x10^3(ANC) 3.09 10*3/uL 1.99-6.95 (test code = 0381216639) IMM GRAN x10^3 (test 0.03 10*3/uL 0-0.06 code = 9744217103) LYMPH x10^3 (test code 1.53 10*3/uL 1.09-3.23 = 731-0) MONO x10^3 (test code 1.04 10*3/uL 0.36-1.02 H = 742-7) EOS x10^3 (test code = 0.19 10*3/uL 0.06-0.53 711-2) BASO x10^3 (test code 0.08 10*3/uL 0.01-0.09 = 704-7) Lab Interpretation Abnormal (test code = 14690-1) [facility] Test Item Value Reference Range Interpretation Comments MAGNESIUM (test code = 8438754078) 1.7 mg/dL 1.7-2.4 Lab Interpretation (test code = Normal 64141-5) [facility] Confirm[facility] (Lab Only)2022-04-27 17:22:22 Test Item Value Reference Range Interpretation Comments ABO & RH (test code O Positive Performe d at [facility] = 20) Laboratory Serv [facility] [place] [address]Derp Free: [phone] A No. [id number] [facility] and Screen - ONCE [id number] 16:14:13 Test Item Value Reference Range Interpretation Comments ABO & RH (test code O Positive Performe d at [facility] = 20) Laboratory Serv [facility] [place] [address] Free: [phone] A No. [id number] IAT (test code = Negative Performed a t [facility] 1185) Laboratory Serv [facility] [place] [address] Free: [phone] A No. [id number] [facility] THRMPLAS [id number] 16:10:24 Test Item Value Reference Range Interpretation Comments APTT Patient (test See_Comment [Automat ed code = 3173-2) message] The system which generated this result transmitted reference range : 23 - 38 Seconds . The reference range was not used to interpr et this result as normal/abnormal . ROBERTO (test code = ROBERTO) The [facility] patient population mean normal value for aPTT is 30 seconds. Lab Interpretation Normal (test code = 83358-9) [facility] Dallas[facility]th[facility] Time / [id number] 16:08:28 Test Item Value Reference Range Interpretation Comments PROTIME PATIENT (test See_Comment [Auto mated message] code = 5964-2) The system wh ich generated this result transmitted ref erence range: 12.0 - 1 4.7 Seconds. The re ference range was not u sed to interpret this result as normal/abnor mal. INR (test code = 6301-6) Nor mal INR <1.1; Warfarin Therap eutic range 2.0 to 3. 0 or 2.5 to 3.5, dep ending upon the indica tions. Lab Interpretation (test Normal code = 56137-5) [facility] Dallas[facility] [id number] 15:53:25 Test Item Value Reference Interpretation Comments Range TROPONIN I (test See_Comment [Automated code = 4466966059) message] The system which generated this result transmitted reference range : <=0.034. The reference range was not used to interpret this result as normal/abnormal . ROBERTO (test code = Reference (Normal) ROBERTO) Range (defined by the 99th percentile reference limit): <= 0.034 ng/mL Note: Cardiac troponin begins to rise 3-4 hours after the onset of ischemia. Repeat in 4-6 hours if the sample was drawn within 3-4 hours of the onset of the symptom and found normal. Diagnosis of myocardial injury is made with acute changes in cTn concentrations with at least one serial sample above the 99th percentile upper reference limit (URL), taken together with the patient's clinical presentation. Biotin has been reported to cause a negative bias, interpret results relative to patient's use of biotin. Lab Interpretation Normal (test code = 10341-5) [facility]. METABOLIC PANEL (31720)2022-04-27 15:42:03 Test Item Value Reference Range Interpretation Comments NA (test code = 139 mmol/L 135-145 6955281347) K (test code = 4.1 mmol/L 3.5-5 7378058760) CL (test code = 105 mmol/L 98-108 2643529376) CO2 TOTAL (test code = 27 mmol/L 23-31 4227265023) AGAP (test code = 2-16 4259668359) BUN (test code = 6 mg/dL 7-23 L 7713150393) GLUCOSE (test code = 96 mg/dL 70-110 3184311484) CREATININE (test code = 0.87 mg/dL 0.6-1.25 3156628066) TOTAL BILI (test code = 0.3 mg/dL 0.1-1.4 6414117103) CALCIUM (test code = 9.1 mg/dL 8.6-10.6 6765601587) T PROTEIN (test code = 6.9 g/dL 6.3-8.2 0647375835) ALBUMIN (test code = 3.6 g/dL 3.5-5 5794390949) ALK PHOS (test code = 89 U/L 34-122 5715092798) ALTv (test code = 12 U/L 5-50 1742-6) AST(SGOT) (test code = 17 U/L 13-40 7816169145) eGFR (test code = mL/min/1.73m2 7067158709) ROBERTO (test code = ROBERTO) Association of Glomerular Filtration Rate (GFR) and Staging of Kidney Disease* + --+ --+ ------+| GFR (mL/min/1.73 m2) ?| With Kidney Damage ?| ?Without Kidney Damage+ --------+ --------+ +| ?>90 ?| ?Stage one ?| ? Normal ?+ ---+ ---+ -------+| ?60-89 ?| ?Stage two ?| ? Decreased GFR ? + --+ --+ ------+| ?30-59 ?| ?Stage three ?| ? Stage three ? + --+ --+ ------+| ?-29 ?| ?Stage four ? | ? Stage four ?+ ---+ ---+ -------+| ?<15 (or dialysis) ? ?| ?Stage five ? | ? Stage five ?+ ---+ ---+ -------+ *Each stage assumes the associated GFR level has been in effect for at least three months. ?Stages 1 to 5, with or without kidney disease, indicate chronic kidney disease. Notes: Determination of stages one and two (with eGFR >59mL/min/1.73 m2) requires estimation of kidney damage for at least three months as defined by structural or functional abnormalities of the kidney, manifested by either:Pathological abnormalities or Markers of kidney damage (including abnormalities in the composition of the blood or urine or abnormalities in imaging tests). Lab Interpretation Abnormal (test code = 25200-2) [facility]2022-[facility]-21 15:42:03 Test Item Value Reference Range Interpretation Comments MAGNESIUM (test code = 0495883373) 1.9 mg/dL 1.7-2.4 Lab Interpretation (test code = Normal 26632-9) [facility]2022-[facility]-21 15:42:03 Test Item Value Reference Range Interpretation Comments LIPASE (test code = 8351593454) 115 U/L 0-220 Lab Interpretation (test code = Normal 15200-9) [facility] WITH [id number] 15:32:42 Test Item Value Reference Range Interpretation Comments WBC (test code = See_Comment [Automated 6690-2) message] The sy stem which generated this result transmitted reference range : 4.20 - 10.70 10*3/?L. The reference range was not used to interpret this result as normal/abnormal . RBC (test code = See_Comment [Automated 789-8) message] The sy stem which generated this result transmitted reference range : 4.26 - 5.52 10*6/?L. The reference range was not used to interpret this result as normal/abnormal . HGB (test code = 9.8 g/dL 12.2-16.4 L 718-7) HCT (test code = 32.6 % 38.4-49.3 L 4544-3) MCV (test code = 73.8 fL 81.7-95.6 L 787-2) MCH (test code = 22.2 pg 26.1-32.7 L 785-6) MCHC (test code = 30.1 g/dL 31.2-35 L 786-4) RDW-SD (test code = 39.8 fL 38.5-51.6 84702-3) RDW-CV (test code = 15.1 % 12.1-15.4 788-0) PLT (test code = See_Comment H [Automated 777-3) message] The sy stem which generated this result transmitted reference range : 150 - 328 10*3/ ?L. The reference r carlota was not used to interpret this result as normal/abnormal . MPV (test code = 9.5 fL 9.8-13 L 29078-1) NRBC/100 WBC (test See_Comment [Automat ed code = 4867100324) message] The system which generated this result transmitted reference range : 0.0 - 10.0 /100 WBCs. The refer ence range was not u sed to interpret th is result as normal/abnormal . NRBC x10^3 (test code See_Comment [Auto mated = 5284281350) message] The s ystem which generated this result transmitted reference range : 10*3/?L. The reference range was not used to interpret this result as normal/abnormal . GRAN MAT (NEUT) % 51.9 % (test code = 770-8) IMM GRAN % (test code 0.30 % = 1734847887) LYMPH % (test code = 31.1 % 736-9) MONO % (test code = 13.0 % 5905-5) EOS % (test code = 2.5 % 713-8) BASO % (test code = 1.2 % 706-2) GRAN MAT x10^3(ANC) 3.35 10*3/uL 1.99-6.95 (test code = 6701157564) IMM GRAN x10^3 (test 0-0.06 code = 6711929475) LYMPH x10^3 (test code 2.01 10*3/uL 1.09-3.23 = 731-0) MONO x10^3 (test code 0.84 10*3/uL 0.36-1.02 = 742-7) EOS x10^3 (test code = 0.16 10*3/uL 0.06-0.53 711-2) BASO x10^3 (test code 0.08 10*3/uL 0.01-0.09 = 704-7) Lab Interpretation Abnormal (test code = 01786-2) [facility]- XR CHEST 1 [id number] 08:28:00Patient Name: ALEX BURROUGHS Unit No: [id number] EXAMS: CPT: [id number] XR CHEST 1 V 61750 History: Chest pain CHEST 1 VIEW FINDINGS: [...] Time: DAP (Gy m2): Air Kerma (mGy): TrscrDt/Tm: 05/23/2019 (0828) by:[email or web address] Orig Print D/T: S: 05/23/2019 (0831) BATCH NO: N/A Name: A[facility] Phys: Sky Starks MD [address] [facility] : 1975 Age:44 Sex: [place] [address] Loc: NDENISHA Exam Date: 05/23/2019 Status: REG ER PH: FAX: PAGE 1 Signed [id number] 07:18:00 Test Item Value Reference Range Interpretation Comments TROPONIN-I (test code = TROPI) <0.020 ng/mL 0.000-0.034 N BASIC METABOLIC [id number] 07:14:00 Test Item Value Reference Range Interpretation [...] mg/dL 8.5-10.5 N = CA) CBC W/AUTO [id number] 07:10:00 Test Item Value Reference Range Interpretation [...] code = BA#) 0.1 x10 3/uL 0.0-0.1 N"
[2022-07-12 23:42] LABS: Absolute Lymphocytes (CBC) 1.9 K/uL (0.7-4.9); Hematocrit 33.8 % (39.6-49.0); Lymphocytes % 21.9 % (15.3-44.8); RBC Red Blood Cell Count 4.97 M/uL (4.33-5.43)
[2022-07-12] MEDS ORDERED: NA CHLORIDE 0.9% 1,000 ML ONE (23:45)
[2022-07-12] MEDS ORDERED: METHYLPREDNISOLONE 125 MG INJ ONE (23:45)
[2022-07-12] MEDS ORDERED: ONDANSETRON 4 MG/2 ML VIAL ONE (23:45)
[2022-07-12] MEDS ORDERED: MORPHINE 4 MG/ML SYR ONE (23:46)
[2022-07-12 23:52] LABS: Albumin 3.4 g/dL (3.4-5.0); Bilirubin Total 0.3 mg/dL (0.2-1.0); Potassium 3.3 mmol/L (3.5-5.1)
[2022-07-13 00:04] LABS: Urine Blood Negative (Negative); Urine Glucose Negative (Negative); Urine Protein Negative (Negative); Urine Specific Gravity >=1.030 (1.005-1.030)
[2022-07-13 00:27] LABS: Blood Morphology Comment NOTED (NOT SEEN); Hypochromasia 1+; Platelet Estimate ADEQ; White Blood Cell Scan OK (OK)
[2022-07-13] MEDS ORDERED: DIPHENHYDRAMINE 50 MG/ML VIAL ONE (00:31)
[2022-07-13 00:34] LABS: Urine Mucus Slight /HPF (None Seen)
--- NOTE | 2022-07-13 00:54 | ER ---
Nurse's Notes [facility] Name: Wicho Weeks Age: 47 yrs Sex: Male : 1975 Arrival Date: 07/12/2022 Time: 20:35 Bed 6 Private MD: Diagnosis: Noninfective gastroenteritis and colitis, unspecified Presentation: 07/12 21:57 Chief complaint: Patient states: he has abdominal pain, diarrhea, itching since bb stopping prednisone. Coronavirus screen: At this time, the client does not indicate any symptoms associated with coronavirus-19. Ebola Screen: No symptoms or risks identified at this time. Onset: The symptoms/episode began/occurred gradually. Anaphylaxis evaluation, no signs or symptoms of anaphylaxis were noted. Initial Sepsis Screen: Does the patient meet any 2 criteria? No. Patient's initial sepsis screen is negative. Does the patient have a suspected source of infection? No. Patient's initial sepsis screen is negative. Risk Assessment: Do you want to hurt yourself or someone else? Patient reports no desire to harm self or others. Onset of symptoms was July 12, 2022. 21:57 Method Of Arrival: Ambulatory bb 21:57 Acuity: DRE 3 bb Historical: - Allergies: 21:59 No Known Allergies; bb - Home Meds: 21:59 None [Active]; bb - PMHx: 21:59 Chronic Abdominal Pain; Colitis; GI bleed; bb - Immunization history:: Client reports having NOT received the Covid vaccine. - Social history:: Smoking status: Patient denies any tobacco usage or history of. Screenin/07 01:11 Abuse screen: Denies threats or abuse. Denies injuries from another. Nutritional ll3 screening: No deficits noted. Tuberculosis screening: No symptoms or risk factors identified. Fall Risk None identified. Assessment: 07/12 22:00 General: Appears uncomfortable, Behavior is calm, cooperative. Pain: Complains of pain ll3 in right lower quadrant Pain does not radiate. Pain currently is 10 out of 10 on a pain scale. Quality of pain is described as sharp. Neuro: Level of Consciousness is awake, alert, obeys commands, Oriented to person, place, time, situation. Respiratory: Airway is patent Respiratory effort is even, unlabored, Respiratory pattern is regular, symmetrical, Breath sounds are clear bilaterally. GI: Abdomen is round distended, Reports lower abdominal pain, diarrhea. Derm: Skin is pink, warm \T\ dry. 07/13 00:04 Reassessment: No changes from previously documented assessment. Patient and/or family ll3 updated on plan of care and expected duration. Pain level reassessed. Patient is alert, oriented x 3, equal unlabored respirations, skin warm/dry/pink. Vital Signs: 07/12 21:57 BP 159 / 100; Pulse 74; Resp 16 S; Temp 99(O); Pulse Ox 98% on R/A; Weight 90.72 kg bb (R); Height 5 ft. 9 in. (175.26 cm) (R); Pain 10; 07/13 00:04 BP 142 / 98; Pulse 59; Resp 17; Pulse Ox 100% on R/A; ll3 07/12 21:57 Body Mass Index 29.53 (90.72 kg, 175.26 cm) ED Course: 07/12 20:35 Patient arrived in ED. jj6 21:10 Kenny Mccullough PA is PHCP. cp 21:10 Kenny Valenzuela MD is Attending Physician. cp 21:59 Triage completed. bb 21:59 Arm band placed on Patient placed in an exam room, on a stretcher, on pulse oximetry. bb 23:00 Missed attempt(s): 20 gauge in left antecubital area. 22 gauge in right antecubital ll3 area. 23:20 Initial lab(s) drawn, by me, sent to lab. T\T\S collected, blood band applied to patient. bb Inserted saline lock: 20 gauge in right antecubital area, using aseptic technique. Blood collected. 07/13 00:52 Jose Schilling MD is Referral Physician. cp 01:11 Patient has correct armband on for positive identification. Bed in low position. Call ll3 light in reach. Side rails up X 1. 01:11 No provider procedures requiring assistance completed. IV discontinued, intact, ll3 bleeding controlled, No redness/swelling at site. Pressure dressing applied. Administered Medications: 07/12 23:58 Drug: morphine 4 mg Route: IVP; Infused Over: 4 mins; Site: right antecubital; ll3 07/13 01:12 Follow up: Response: No adverse reaction ll3 07/12 23:58 Drug: Zofran (Ondansetron) 4 mg Route: IVP; Site: right antecubital; ll3 07/13 00:35 Follow up: Response: No adverse reaction ll3 07/12 23:58 Drug: NS 0.9% 1000 ml Route: IV; Rate: 1 bolus; Site: right antecubital; ll3 23:58 Drug: SOLU-Medrol (methylPrednisoLONE) 125 mg Route: IVP; Site: right antecubital; ll3 07/13 00:34 Follow up: Response: No adverse reaction ll3 00:34 Drug: Benadryl (diphenhydrAMINE) 25 mg Route: IVP; Site: right antecubital; ll3 01:12 Follow up: Response: No adverse reaction ll3 Medication: 01:12 VIS not applicable for this client. ll3 Outcome: 00:53 Discharge ordered by MD. cp 01:11 Discharged to home ambulatory, with family. ll3 01:11 Condition: stable 01:11 Discharge instructions given to patient, Instructed on discharge instructions, follow up and referral plans. medication usage, Demonstrated understanding of instructions, follow-up care, medications, Prescriptions given X 2. 01:12 Patient left the ED. ll3 Signatures: Mariaelena Bucio RN RN Kenny Spangler PA PA cp Jeffries, Jennifer jj6 Loubet, Lynsea, RN RN ll3 Corrections: (The following items were deleted from the chart) 00:37 00:37 Missed attempt(s): 20 gauge in left antecubital area. 22 gauge in right ll3 antecubital area. ll3
--- NOTE | 2022-07-13 00:54 | EDPHYS ---
Physician Documentation [facility] – [place], [place] Name: Wicho Weeks Age: 47 yrs Sex: Male : 1975 Arrival Date: 07/12/2022 Time: 20:35 Bed 6 Private MD: ED Physician Kenny Valenzuela HPI: 07/12 22:35 This 47 yrs old Male presents to ER via Ambulatory with complaints of cp Abdominal Pain. 22:35 The patient presents with abdominal pain. cp 22:35 Onset: The symptoms/episode began/occurred yesterday. Associated signs and symptoms: cp Pertinent positives: diarrhea, mucous stools with some blood, Pertinent negatives: chest pain, dysuria, fever, shortness of breath. 22:35 Patient reports history of colitis, believes it is ulcerative colitis, and presents to ED with c/o abdominal pain, diarrhea and rash. Reports finished prescribed steroids from recent hospitalization at [facility]. Rash, itching since finishing steroids. Historical: - Allergies: 21:59 No Known Allergies; bb - Home Meds: 21:59 None [Active]; bb - PMHx: 21:59 Chronic Abdominal Pain; Colitis; GI bleed; bb - Immunization history:: Client reports having NOT received the Covid vaccine. - Social history:: Smoking status: Patient denies any tobacco usage or history of. ROS: 22:40 Constitutional: Negative for body aches, chills, fever, poor PO intake. cp 22:40 Eyes: Negative for injury, pain, redness, and discharge. cp 22:40 ENT: Negative for drainage from ear(s), ear pain, sore throat, difficulty swallowing, difficulty handling secretions. 22:40 Cardiovascular: Negative for chest pain, palpitations. 22:40 Respiratory: Negative for cough, shortness of breath, wheezing. 22:40 Abdomen/GI: Positive for abdominal pain, diarrhea, Negative for vomiting, constipation, anorexia, black/tarry stool. 22:40 : Negative for urinary symptoms, testicular pain 22:40 Skin: Positive for rash. 22:40 Neuro: Negative for altered mental status, headache, syncope, weakness. 22:40 All other systems are negative. Exam: 22:45 Constitutional: The patient appears in no acute distress, alert, awake, non-toxic, well cp developed, well nourished. 22:45 Head/Face: Normocephalic, atraumatic. cp 22:45 Eyes: Periorbital structures: appear normal, Conjunctiva: normal, no exudate, no injection, Sclera: no appreciated abnormality, Lids and lashes: appear normal, bilaterally. 22:45 ENT: External ear(s): are unremarkable, Nose: is normal, Mouth: Lips: moist, Oral mucosa: pink and intact, moist, Posterior pharynx: Airway: no evidence of obstruction, patent. 22:45 Chest/axilla: Inspection: normal, Palpation: is normal, no crepitus, no tenderness. 22:45 Cardiovascular: Rate: normal, Rhythm: regular, Edema: is not appreciated, JVD: is not appreciated. 22:45 Respiratory: the patient does not display signs of respiratory distress, Respirations: normal, no use of accessory muscles, no retractions, labored breathing, is not present, Breath sounds: are clear throughout, no decreased breath sounds, no stridor, no wheezing. 22:45 Abdomen/GI: Inspection: abdomen appears normal, Bowel sounds: active, all quadrants, Palpation: soft, in all quadrants, mild abdominal tenderness, in all quadrants, rebound tenderness, is not appreciated, involuntary guarding, is not appreciated. 22:45 Back: pain, is absent, ROM is normal. 22:45 Skin: cellulitis, is not appreciated, consistent with hives, on the right hand and left hand. 22:45 Neuro: Orientation: to person, place \T\ time. Mentation: is normal, Motor: moves all fours, strength is normal, Sensation: is normal, Gait: is steady, at a normal pace, without difficulty. Vital Signs: 21:57 BP 159 / 100; Pulse 74; Resp 16 S; Temp 99(O); Pulse Ox 98% on R/A; Weight 90.72 kg bb (R); Height 5 ft. 9 in. (175.26 cm) (R); Pain 10/10; 07/13 00:04 BP 142 / 98; Pulse 59; Resp 17; Pulse Ox 100% on R/A; ll3 07/12 21:57 Body Mass Index 29.53 (90.72 kg, 175.26 cm) bb MDM: 07/12 21:46 Patient medically screened. cp 23:00 Differential diagnosis: bowel obstruction, gastritis, non-specific abd pain, cp Ureterolithiasis, urinary tract infection, sepsis, anemia. 07/13 00:53 Data reviewed: vital signs, nurses notes, lab test result(s). 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 Response to treatment: the patient's symptoms have markedly improved after treatment. ED course: VSS. Labs reviewed and stable. Patient seen in this ED multiple times in the past for similar complaints. Appears non-toxic. Reports has not had f/u with GI. Will discharge to home for continued monitoring. 07/12 22:17 Order name: CBC with Diff; Complete Time: 00:44 cp 07/13 00:45 Interpretation: Normal except: HGB 10.3; HCT 33.8; MCV 68.0; MCH 20.7; MCHC 30.4; RDW cp 19.4. 07/12 22:17 Order name: CMP; Complete Time: 00:44 cp 07/13 00:45 Interpretation: Abnormal: K 3.3; GLOB 3.6; A/G 0.9. cp 07/12 22:17 Order name: Lipase; Complete Time: 00:44 cp 07/12 22:17 Order name: Urine Microscopic Only; Complete Time: 00:44 cp 07/12 23:15 Order name: Type And Screen; Complete Time: 00:44 cp 07/12 23:49 Order name: CBC Smear Scan; Complete Time: 00:44 EDMS 07/12 22:17 Order name: IV Saline Lock; Complete Time: 23:42 cp 07/12 22:17 Order name: Labs collected and sent; Complete Time: 23:42 cp 07/13 00:04 Order name: Urine Dipstick-Ancillary; Complete Time: 00:44 EDMS 07/12 22:17 Order name: Urine Dipstick-Ancillary (obtain specimen); Complete Time: 00:03 cp Administered Medications: 07/12 23:58 Drug: morphine 4 mg Route: IVP; Infused Over: 4 mins; Site: right antecubital; ll3 12/07 01:12 Follow up: Response: No adverse reaction 3 07/12 23:58 Drug: Zofran (Ondansetron) 4 mg Route: IVP; Site: right antecubital; 3 07/13 00:35 Follow up: Response: No adverse reaction 3 07/12 23:58 Drug: NS 0.9% 1000 ml Route: IV; Rate: 1 bolus; Site: right antecubital; 3 23:58 Drug: SOLU-Medrol (methylPrednisoLONE) 125 mg Route: IVP; Site: right antecubital; 3 07/13 00:34 Follow up: Response: No adverse reaction 3 00:34 Drug: Benadryl (diphenhydrAMINE) 25 mg Route: IVP; Site: right antecubital; 3 01:12 Follow up: Response: No adverse reaction 3 Disposition Summary: 07/13/22 00:53 Discharge Ordered Location: Home cp Problem: an ongoing problem cp Symptoms: have improved cp Condition: Stable cp Diagnosis - Noninfective gastroenteritis and colitis, unspecified cp Followup: cp - With: Jose Schilling MD - When: 2 - 3 days - Reason: Recheck today's complaints Discharge Instructions: - Discharge Summary Sheet cp - Food Choices to Help Relieve Diarrhea, Adult cp - Ulcerative Colitis, Adult cp Forms: - Medication Reconciliation Form cp - Thank You Letter cp - Antibiotic Education cp - Prescription Opioid Use cp Prescriptions: - Prednisone 20 mg Oral Tablet - take 2 tablets by ORAL route once daily for 5 days , the take 1 tablet daily cp for 3 days, then 1/2 tablet daily for 2 days; 10 tablet; Refills: 0, Product Selection Permitted - Zofran 4 mg Oral Tablet - take 1 tablet by ORAL route every 12 hours As needed; 20 tablet; Refills: 0, cp Product Selection Permitted Signatures: Dispatcher [employer] Mariaelena Shepard RN RN Kenny Spangler PA PA cp Loubet, Lynsea, RN RN ll3 Corrections: (The following items were deleted from the chart) 00:45 00:45 Abnormal: K 3.3. cp cp
[2022-07-13 09:16] VITALS: TEMP 99
[2022-07-13 09:17] VITALS: BP 142/98; O2SAT 100
== END 2022-07-13 01:12 | disposition home or self-care (01) ==
LOC: ER 20:32
DX: K52.9 Noninfective gastroenteritis and colitis, unspecified (principal)
CPT/HCPCS: 36415; 80053; 81003; 81015; 83690; 85025; 86850; 86900; 86901; 96374; 96375; 99284; J1200; J2405; J2930; J7030

== ENCOUNTER 2022-07-27 21:23 | Emergency (ER) | payer SELFPAY ==
--- OUTSIDE RECORDS SUMMARY | 2022-07-27 21:29 | XMS REPORT | Continuity of Care Document ---
:1975 Author Organization [facility] t Address [address] [place] [address] Care Team Providers Name Role Phone Dean Higginbotham MD Primary Care Physician [phone] ANA PEACOCK Attending Clinician Unavailable JUSTIN BAPTISTE Attending Clinician Unavailable Justin Baptiste MD Attending Clinician Doctor Unassigned, Sidell Attending Clinician Unavailable RAYRAY GAMEZ Attending Clinician Unavailable Romie Lewis MD Attending Clinician Jaci Estrella DO Attending Clinician Rayray Gamez MD Attending Clinician Marybel Sexton MD Attending Clinician CONSTANTINO OKEEFE Attending Clinician Unavailable Constantino Okeefe MD Attending Clinician Lnaa Cochran LVN Attending Clinician DARRYN LANDA Attending Clinician Unavailable Viv Hyde Attending Clinician Darryn Landa MD Attending Clinician JOHN MARCANO Attending Clinician Unavailable GREGORIO FERRELL Attending Clinician Unavailable RJ ADDISON Attending Clinician Unavailable JACI ESTRELLA Admitting Clinician Unavailable Jaci Estrella DO Admitting Clinician PRAMODRENETTALILIAN EVANSVISHAL Alvarado Admitting Clinician Unavailable DARRYN LANDA Admitting Clinician Unavailable Darryn Landa MD Admitting Clinician DAVINA ANDERSON Admitting Clinician Unavailable Payers Payer Name Policy Type Policy Number Effective Date Expiration Date S ource Problems Condition Condition Condition Status Onset Resolution Last Treating Co mments Source Name Details Category Date Date Treatment Clinician Date Bloody Bloody Disease Active 2021-08 Univers stools stools 0-05 ity of 00:00: [address] Obesity Obesity Disease Active 2021-08 Univers (BMI (BMI 0-05 ity of 30-39.9) 30-39.9) 00:00: [address] Proctocoli Proctocoli Disease Active U nivers tis tis 9-21 ity of 00:00: [address] Allergies, Adverse Reactions, Alerts Allergy Allergy Status Severity Reaction(s) Onset Inactive Treating Comm ents Source Name Type Date Date Clinician No Known DA Active U 2018-08 [facility] Allergie 0-17 [place] 00:00: Health 00 [facility] [address] NO KNOWN Drug Active Univers ALLERGIE Class ity of S [facility] [place] Social History Social Habit Start Date Stop Date Quantity Comments Source History of Passive smoker University of tobacco use [facility] [place] Exposure to 2022-06-22 2022-07-02 Not sure [facility] SARS-CoV-2 00:00:00 21:48:00 [facility] (event) [place] Alcohol intake 2022-07-02 2022-07-02 Ex-drinker [facility] 00:00:00 00:00:00 (finding) [facility] [place] Education 2022-05-11 2022-05-11 21 [facility] 00:00:00 00:00:00 [facility] [place] Tobacco use and 2022-04-27 2022-04-27 Smokeless tobacco Un iversity of exposure 00:00:00 00:00:00 non-user [facility] [place] Sex Assigned At [birth year] Universit y of 00:00:00 00:00:00 [facility] [place] Smoking Status Start Date Stop Date Source Ex-smoker 2022-04-27 00:00:00 2022-04-27 00:00:00 [facility] Medications Ordered Filled [...] Branch 07/03/22 at 0000, STAT NaCl 0.9% 2021-08 No 1000mL at 999 Uni vers (NS) bolus 09-02 mL/hr, ity of infusion 05:15: 05:58 1,000 mL, [place] 1,000 mL 00 :00 IV Medical Piggyback, Branch ONCE, 1 dose, On 07/02/22 at 2315, STAT diphenhydrA 2021-08 No 25mg 25 mg, Uni vers MINE 09-02 Slow IV ity of (BENADRYL) 05:00: 04:54 Push, [place] injection 00 :00 ONCE, 1 Medical 25 mg dose, On Branch 07/02/22 at 2300, STAT famotidine 2021-08 No 20mg 20 mg, Univ ers (PEPCID [...] at 2230, 1 mL predniSONE 2021-08 Yes [id number] Take 1 po Univers 20 mg 09-01 tid x 2 ity of tablet 00:00: days, then [place] 00 take 1 po Medical bid x 3 Branch days, then take 1 po daily x 5 days. famotidine 2021-08- Yes [id number] 20mg Take 1 Univers (PEPCID) 20 09-01 12-12 tablet by it y of mg tablet 00:00: 05:59 mouth in [place] 00 :00 the Medical morning Branch and 1 tablet in the evening. Do all this for 15 days. predniSONE 2021-08- No [id number] Take 1 po Univers 20 mg 09-01 tid x 2 ity of tablet 00:00: 00:00 [place], then [place] 00 :[place] 1 po bid x Medical 3 days, Branch then 1 po daily x 5 days famotidine 2021-08- No [id number] 20mg Take 1 Univers (PEPCID) 20 09-01 tablet by it y of mg tablet 00:00: 00:00 mouth in [place] 00 :00 the Medical morning Branch and 1 tablet in the evening. Do all this for 15 days. predniSONE 2021-08- Yes [id number] Take 3 Univers 5 mg tablet 08-22-08 tablets by i ty of 00:00: 05:59 mouth [place] 00 :00 daily for Medical 7 days, Branch THEN 2 tablets daily for 7 days, THEN 1 tablet daily for 7 days. predniSONE 2021-08- Yes [id number] Take 3 Univers 5 mg tablet 08-22-08 tablets by i ty of 00:00: 05:59 mouth [place] 00 :00 daily for Medical 7 days, Branch THEN 2 tablets daily for 7 days, THEN 1 tablet daily for 7 days. predniSONE 2021-08- Yes [id number] Take 3 Univers 5 mg tablet 08-22-08 tablets by i ty of 00:00: 05:59 mouth [place] 00 :00 daily for Medical 7 days, Branch THEN 2 tablets daily for 7 days, THEN 1 tablet daily for 7 days. lactobacill 2021-08- Yes [id number] .5mg Take 1 Univers us 0-12 02-10 tablet by ity of acidophilus 00:00: 05:59 mouth in [place] 00 :00 the Medical morning Branch for 120 days. lactobacill 2021-08- Yes [id number] .5mg Take 1 Univers us 0-12 02-10 tablet by ity of acidophilus 00:00: 05:59 mouth in [place] 00 :00 the Medical morning Branch for 120 days. lactobacill 2021-08- Yes [id number] .5mg Take 1 Univers us 0-12 02-10 tablet by ity of acidophilus 00:00: 05:59 mouth in [place] 00 :00 the Medical morning Branch for 120 days. predniSONE 2021-08- Yes [id number] Take 6 Univers 10 mg 0-12 11-17 [...] First dose Me dical L (PF)) on [facility] Branch injection 05/14/22 at 20 mg 0930, Until Discontinu ed, Routine methylPREDN 2021-08- No 20mg 20 mg, Uni vers ISolone sod 0-08 10-11 Intravenou i ty of succ 14:30: 13:41 s, Q8H, [place] (SOLU-MEDRO 00 :53 First dose Me dical L (PF)) on [facility] Branch injection 05/14/22 at 20 mg [...] No 2mg 2 mg, Slow Univers mg/mL) 0-02 13- IV Push, ity of injection 2 17:02: 17:41 Q5MIN PRN, [place] mg 16 :46 5 doses, Medical Starting Branch on Mon05/13/22 at 1202, Until Mon05/13/22 at 1241, Routine, Pain (scale 4-6), PACU morpHINE (4 2021-08- No 2mg 2 mg, Slow Univers mg/mL) 0-02 13- IV Push, ity of injection 2 17:02: [...] water for 2021-08- No PRN, Univers irrigation 0-02 13- Starting ity of irrigation 14:52: 16:50 on Mon [place] solution 00 :17 05/13/22 at Medic al 0952, Branch Until Mon05/13/22 at 1150, Routine, Intra-op simethicone 2021-08- No PRN, Unive rs (GAS RELIEF 0-07 - Starting ity of (SIMETHICON 14:51: 16:50 on [...] ed, Routine cholecalcif 2021-08 Yes 2000U 2,000 Univ ers [...] at 0815, Until 05/13/22 at 1203, Routine NaCl 0.9% 2021-08- No 1000mL at 125 Uni vers (NS) IV 0-06 10-07 mL/hr, IV ity of infusion 13:15: 17:03 Infusion, [place] 1,000 mL 00 :10 CONTINUOUS Medic al , Starting Branch on Yue 05/12/22 at 0815, Until Mon05/13/22 at 1203, Routine vancomycin 2021-08- No 500mg 500 mg, Un kar (VANCOCIN) [...] br>Duratio n of therapy: 5 days vancomycin 2021-08- No 500mg 500 mg, Un kar (VANCOCIN) [...] n of therapy: 5 days NaCl 0.9% 2021-08- No 1000mL at 100 Uni vers (NS) [...] on Mon Medical packet 1 05/11/22 at [facility] Packet 2145, Until Discontinu ed, Routine cholestyram 2021-08 Yes 1{packe 1 Packet, Univers ine 0-06 t} Oral, BID, ity of (QUESTRAN) 02:45: First dose [place] 4 gram 00 on Mon Medical packet 1 05/11/22 at [facility] Packet 2145, Until Discontinu ed, Routine vancomycin [...] Discontinu ed, Routine, Pain (scale 7-10) diphenhydrA 2021-08 No 25mg 25 mg, Uni vers MINE 0-05 10-05 Slow IV ity of (BENADRYL) 21:45: 21:35 Push, [place] injection 00 :00 ONCE, 1 Medical 25 mg dose, On Branch Mon05/11/22 at 1645, STAT diphenhydrA 2021-08 No 25mg 25 mg, Uni [...] 00 :00 dose, On Medi miranda mg 05/11/22 at 1430, JANNA FENTanyl PF 2021-08 No [...] Mon05/11/22 at 1430, STAT iopamidol 2021-08 No [id number] 75mL 75 mL, Univers (ISOVUE 0-04 10-04 [...] On Branch 05/09/22 at 2130, STAT ondansetron 2021-08- No 4mg 4 mg, Slow Univers (ZOFRAN 0-04 10-04 IV Push, ity of (PF)) 02:15: 03:09 ONCE, 1 [place] injection 4 00 :00 dose, On Medi miranda mg Mon Branch 05/09/22 at 2115, JANNA ferrous 2021-08- No 325mg Take 325 Univ ers sulfate 325 0-03 10-03 mg by ity of mg (65 mg 20:43: 00:00 mouth in [place] iron) 33 :00 the Medical tablet morning. Branch mesalamine 2021-08- Yes [id number] 1.2g Take 1 Univers 1.2 gram EC 0-03 10-18 tablet by it y of tablet 00:00: 04:59 mouth [place] 00 :00 daily with Medical breakfast Branch for 14 days. mesalamine 2021-08- Yes [id number] 1.2g Take 1 Univers 1.2 gram EC 0-03 10-18 tablet by it y of tablet 00:00: 04:59 mouth [place] 00 :00 daily with Medical breakfast Branch for 14 days. mesalamine 2021-08- No [id number] 1.2g Take 1 Univers 1.2 gram EC [...] 1{tbl} Take 1 U nivers en with -23 -23 tablet by ity of codeine 12:40: 00:00 mouth [place] (TYLENOL-CO 38 :00 every 6 Medic al DEINE #3 (six) Branch ORAL) hours as needed for Pain (scale 7-10). ciprofloxac No 250mg Take 250 Univers in HCl 250 - 09-23 mg by ity of mg tablet 11:38: 00:00 mouth [place] 56 :00 every 12 Medical (twelve) Branch hours. mesalamine 2021- No 1000mg Take 1,000 Univers 500 mg CR - 09-23 mg by ity of capsule 11:38: 00:00 mouth in [place] 56 :00 the Medical morning Branch and 1,000 mg at noon and 1,000 mg in the evening. mesalamine Yes 1600mg 1,600 mg, Univers (ASACOL HD) 9-23 Oral, TID, it y of EC tablet 01:00: First dose [place] 1,600 mg 00 on Yue Medical 04/28/22 at Branch 1999, Until Discontinu ed, Routine
service member approving Restricted medication : DARRYN LANDA acetaminoph Yes [id number] 1{tbl} Take 1 Un kar en-codeine 9-23 tablet by ity of (TYLENOL-CO 00:00: mouth [place] DEINE #3) 00 every 6 Medical 300-30 mg (six) Branch tablet hours as needed for Pain (scale 7-10). Indication s: acute pain mesalamine Yes [id number] 1.2g Take 1 U nivers 1.2 gram EC 9-23 tablet by ity of tablet 00:00: mouth [place] 00 daily with Medical breakfast. Branch vancomycin Yes [id number] 125mg Take 1 Univers 125 mg 9-23 capsule by ity of capsule 00:00: mouth 4 00 (four) Medical times Branch daily. mesalamine Yes [id number] 1.2g Take 1 U nivers 1.2 gram EC 9-23 tablet by ity of tablet 00:00: mouth [place] 00 daily with Medical breakfast. Branch vancomycin Yes [id number] 125mg Take 1 Univers 125 mg 9-23 capsule by ity of capsule 00:00: mouth 4 [place] 00 (four) Medical times Branch daily. mesalamine Yes [id number] 1.2g Take 1 U nivers 1.2 gram EC 9-23 tablet by ity of tablet 00:00: mouth [place] 00 daily with Medical breakfast. Branch vancomycin Yes [id number] 125mg Take 1 Univers 125 mg 9-23 capsule by ity of capsule 00:00: mouth 4 [place] 00 (four) Medical times Branch daily. acetaminoph Yes [id number] 1{tbl} Take 1 Un kar en-codeine 9-23 tablet by ity of (TYLENOL-CO 00:00: mouth [place] DEINE #3) 00 every 6 Medical 300-30 mg (six) Branch tablet hours as needed for Pain (scale 7-10). Indication s: acute pain mesalamine Yes [id number] 1.2g Take 1 U nivers 1.2 gram EC 9-23 tablet by ity of tablet 00:00: mouth [place] 00 daily with Medical breakfast. Branch vancomycin Yes [id number] 125mg Take 1 Univers 125 mg 9-23 capsule by ity of capsule 00:00: mouth 4 00 (four) Medical times Branch daily. mesalamine 2021- No [id number] 1.2g Take 1 Univers 1.2 gram EC 9-23 10-11 tablet by it y of tablet 00:00: 00:00 mouth [place] 00 :00 daily with Medical breakfast. Branch vancomycin 2021- No [id number] 125mg Take 1 Univers 125 mg 9-23 10-11 capsule by ity of capsule 00:00: 00:00 mouth 4 [place] 00 :00 (four) Medical times Branch daily. acetaminoph 2021- No [id number] 1{tbl} Take 1 U nivers en-codeine 9-23 10-03 tablet by ity of (TYLENOL-CO 00:00: 00:00 mouth [place] DEINE #3) 00 :00 every 6 Medical 300-30 mg (six) Branch tablet hours as needed for Pain (scale 7-10). Indication s: acute pain acetaminoph 2- No 4647 1{tbl} Take 1 U nivers en-codeine 9-23 09-23 tablet by ity of (TYLENOL-CO 00:00: 00:00 mouth [place] DEINE #3) 00 :00 every 6 Medical 300-30 mg (six) Branch tablet hours as needed for Pain (scale 7-10) for up to 7 days. Indication s: acute pain vancomycin 2021- No [id number] 125mg Take 1 Univers 125 mg 04-29 capsule by ity of capsule 00:00: 00:00 mouth 4 [place] 00 :00 (four) Medical times Branch daily for 9 days. mesalamine 2021- No [id number] 1.2g Take 1 Univers 1.2 gram EC [...] at 1448, Routine, Pain (scale 7-10) metroNIDAZO 2021- No 500mg 500 mg, IV [...] br>Duratio n of therapy: 5 days diphenhydrA 0 Yes 25mg 25 mg, Univ ers MINE 04-27 Intravenou ity of (BENADRYL) 23:58: s, Q6HPRN, [place] injection 43 Starting Medica l 25 mg on Mon Branch 04/27/22 at 1858, Until Discontinu ed, Routine, Itching acetaminoph 0 Yes 1{tbl} 1 tablet, Univers en-codeine 04-27 Oral, ity of (TYLENOL 23:57: Q4HPRN, [place] #3) 300-30 43 Starting Medic al mg tablet 1 on Mon Branch tablet 04/27/22 at 1857, Until Discontinu ed, Routine, Pain (scale 4-6) enoxaparin 0 Yes 40mg 40 mg, Unive rs (LOVENOX) 04-27 Subcutaneo ity of injection 22:00: us, DAILY, [place] 40 mg 00 First dose Medical on Mon Branch 04/27/22 at 1700, Until Discontinu ed, Routine cefTRIAXone No 1000mg 1,000 mg, Univers (ROCEPHIN) 04-27 IV ity of 1,000 mg in 20:00: 19:48 [place], [place] NaCl 0.9% 00 :56 Q24H ABX, [...] Routine, Pain (scale 1-3) iopamidol 2021- No [id number] 70mL 70 mL, Univers (ISOVUE 04-27 Intravenou ity o f 370-500 mL) 18:15: 18:15 s, ONCE, 1 [place] injection 00 :00 dose, On Medica l 70 mL [facility] Branch 04/27/22 at 1315, Routine hydrOXYzine 2021- No 25mg 25 mg, Uni vers (ATARAX) 04-27 Oral, ity of tablet 25 17:30: 17:29 ONCE, 1 [place] mg 00 :00 dose, On Medical [facility] Branch 04/27/22 at 1230, JANNA ondansetron 2021- No 4mg 4 mg, Slow Univers (ZOFRAN 04-27 IV Push, ity of (PF)) 16:15: 16:13 ONCE, 1 [place] injection 4 00 :00 dose, On Medi miranda mg [facility] Branch 04/27/22 at 1115, JANNA morpHINE (4 2021- No 4mg 4 mg, Slow Univers mg/mL) 04-27 IV Push, ity of injection 4 16:15: 16:13 ONCE, 1 [place] mg 00 :00 dose, On Medical [facility] Branch 04/27/22 at 1115, STAT Vital Signs Vital Name Observation Time Observation Value Comments Source Systolic blood 2022-07-03 06:00:00 134 mm[Hg] Univer sity of pressure [place] [facility] Diastolic blood 2022-07-03 06:00:00 84 mm[Hg] Unive rsity of pressure [place] [facility] Heart rate 2022-07-03 06:00:00 72 /min [facility] [place] [facility] Respiratory rate 2022-07-03 06:00:00 18 /min Univ ersity of [place] [facility] Oxygen saturation in 2022-07-03 06:00:00 95 /min University of Arterial blood by [place] [employer] miranda Pulse oximetry Branch Body temperature 2022-07-03 03:50:00 37.39 Breann Univ [facility] [place] [facility] Body height 2022-07-03 03:50:00 175.3 cm [facility] [place] [facility] Body weight 2022-07-03 03:50:00 90.719 kg [facility] [place] [facility] BMI 2022-07-03 03:50:00 29.53 kg/m2 [facility] [place] [facility] Systolic blood 2022-05-17 16:43:00 128 mm[Hg] Univer sity of pressure [place] [facility] Diastolic blood 2022-05-17 16:43:00 72 mm[Hg] Unive rsity of pressure [place] [facility] Heart rate 2022-05-17 16:43:00 58 /min [facility] [place] [facility] Body temperature 2022-05-17 16:43:00 35.83 Breann [facility] [place] [facility] Respiratory rate 2022-05-17 16:43:00 18 /min [facility] [place] [facility] Oxygen saturation in 2022-05-17 16:43:00 100 /min University of Arterial blood by [place] [employer] miranda Pulse oximetry Branch Body weight 2022-05-17 09:42:00 87 kg [facility] [place] [facility] BMI 2022-05-17 09:42:00 28.32 kg/m2 [facility] [place] [facility] Body height 2022-05-11 22:16:00 175.3 cm [facility] [place] [facility] Systolic blood 2022-05-13 14:58:00 128 mm[Hg] Univer sity of pressure [place] [facility] Diastolic blood 2022-05-13 14:58:00 80 mm[Hg] Unive rsity of pressure [place] [facility] Heart rate 2022-05-13 14:58:00 86 /min [facility] [place] [facility] Body temperature 2022-05-13 14:58:00 37.67 Breann [facility] [place] [facility] Respiratory rate 2022-05-13 14:58:00 18 /min Univ [facility] [place] [facility] Oxygen saturation in 2022-05-13 14:58:00 99 /min University of Arterial blood by [facility] Pulse oximetry Branch Body weight 2022-05-13 09:27:00 [...] 97 /min University of Arterial blood by [facility] Pulse oximetry Branch Systolic blood 2022-05-10 04:00:00 [...] 17:14:00 98 mm[Hg] Unive rsity of pressure [place] [facility] Heart rate 2022-04-29 17:14:00 90 /min [facility] Body temperature 2022-04-29 17:14:00 36.28 Breann [facility] [place] [facility] Respiratory rate 2022-04-29 17:14:00 18 /min Univ [facility] [place] [facility] Oxygen saturation in 2022-04-29 17:14:00 100 /min [facility] Arterial blood by [facility] Pulse oximetry [place] Body weight 2022-04-28 09:36:[address] [facility] BMI 2022-04-28 09:36:00 28.65 kg/m2 [facility] Body height 2022-04-27 21:57:[address] [facility] Procedures Procedure Date / Time Performing Clinician Source Performed COMP. METABOLIC PANEL 2022-07-03 04:42:00 Justin Baptiste [facility] ([id number]) [facility] CBC WITH DIFF 2022-07-03 04:42:00 Justin Baptiste [place] [facility] CONSENT/REFUSAL FOR 2022-07-03 03:35:53 Doctor Unassigned, [facility] DIAGNOSIS AND TREATMENT Sidell [facility] BASIC METABOLIC PANEL 2022-05-16 08:42:00 Molina Stovall [facility] (NA, K, CL, CO2, GLUCOSE, Medica l Branch BUN, CREATININE, CA) CBC WITH DIFF 2022-05-16 08:42:00 Molina Stovall [facility] BASIC METABOLIC PANEL 2022-05-16 08:42:00 [facility], K, CL, CO2, GLUCOSE, Medica l Branch BUN, CREATININE, CA) CBC WITH DIFF 2022-05-16 08:42:00 Molina Stovall [facility] BASIC METABOLIC PANEL 2022-05-15 09:46:00 [facility] ([facility], K, CL, CO2, GLUCOSE, Medica l Branch BUN, CREATININE, CA) CBC WITH DIFF 2022-05-15 09:46:00 Molina Stovall [facility] BASIC METABOLIC PANEL 2022-05-15 09:46:00 [facility] ([facility], K, CL, CO2, GLUCOSE, Medica l Branch BUN, CREATININE, CA) CBC WITH DIFF 2022-05-15 09:46:00 [facility] 2022-05-14 08:30:00 Molina Stovall [facility] (NA, K, CL, CO2, GLUCOSE, Medica l Branch BUN, CREATININE, CA) CBC WITH DIFF 2022-05-14 08:30:00 [facility] 2022-05-14 08:30:00 [facility] ([facility], K, CL, CO2, GLUCOSE, Medica l Branch BUN, CREATININE, CA) CBC WITH DIFF 2022-05-14 08:30:00 [facility] 2022-05-13 16:29:00 Marybel Sexton [facility] FLEXIBLE SIGMOIDOSCOPY 2022-05-13 16:08:00 [facility]bel [facility] FLEXIBLE SIGMOIDOSCOPY 2022-05-13 16:08:00 Marybel [facility] FLEXIBLE SIGMOIDOSCOPY 2022-05-13 16:07:35 Ferdinand Kelly [facility] (ENDO) [facility] FLEXIBLE SIGMOIDOSCOPY 2022-05-13 16:07:35 Robin eric [facility] (ENDO) [facility] HB ABO GROUPING 2022-05-13 11:11:00 [facility] HB ABO GROUPING 2022-05-13 11:11:00 [facility] BASIC METABOLIC PANEL 2022-05-13 08:57:00 Molina Stovall [facility] (NA, K, CL, CO2, GLUCOSE, Medica l Branch BUN, CREATININE, CA) CBC WITH DIFF 2022-05-13 08:57:00 [facility]OLIC PANEL 2022-05-13 08:57:00 Molina Stovall [facility] (NA, K, CL, CO2, GLUCOSE, Medica l Branch BUN, CREATININE, CA) CBC WITH DIFF 2022-05-13 08:57:00 [facility] D, 25-OH 2022-05-12 13:31:00 Robin, [facility] VITAMIN D, 25-OH 2022-05-12 13:31:00 Robin [facility] PHOSPHORUS 2022-05-12 12:20:00 Robin eric [facility] MAGNESIUM 2022-05-12 12:20:00 Robin [facility] VITAMIN B12, LEVEL 2022-05-12 12:20:00 Robin [facility] C-REACTIVE PROTEIN 2022-05-12 12:20:00 Robin eric [facility] THYROID STIMULATING 2022-05-12 12:20:00 Robin eric [facility] COMP. METABOLIC PANEL 2022-05-12 12:20:00 Robin eric [facility] ([id number]) Medical Branch LIPID PANEL ([id number])(TOTAL 2022-05-12 12:20:00 Ferdinand Kelly [facility]IGLY[facility], HDL) N-TERMINAL PRO-BNP 2022-05-12 12:20:00 Robin eric [facility] PHOSPHORUS 2022-05-12 12:20:00 Robin eric [facility] MAGNESIUM 2022-05-12 12:20:00 Robin [facility] VITAMIN B12, LEVEL 2022-05-12 12:20:00 Robin eric [facility] C-REACTIVE PROTEIN 2022-05-12 12:20:00 Robin eric [facility] THYROID STIMULATING 2022-05-12 12:20:[address] [facility] HORMONE [facility] COMP. METABOLIC PANEL 2022-05-12 12:20:00 Ferdinand Kelly [facility] ([id number]) Medical [place] LIPID PANEL ([id number])(TOTAL 2022-05-12 12:20:00 Ferdinand Kelly [facility] CHOLESTEROL, [facility] TRIGLYCERIDES, HDL) N-TERMINAL PRO-BNP 2022-05-12 12:20:00 Robin eric [facility] PROTHROMBIN TIME / INR 2022-05-12 12:19:00 Ferdinand Kelly [facility] PROTHROMBIN TIME / INR 2022-05-12 12:19:00 Ferdinand Kelly [facility] CBC WITH DIFF 2022-05-12 12:18:00 [facility] CBC WITH DIFF 2022-05-12 12:18:00 [facility] XR KUB 2022-05-12 05:58:38 [facility] XR KUB 2022-05-12 05:58:38 [facility] SEDIMENTATION RATE 2022-05-12 02:23:00 Robin eric [facility] CALPROTECTIN, FECAL 2022-05-12 02:23:[address] [facility] SEDIMENTATION RATE 2022-05-12 02:23:00 Robin eric [facility] CALPROTECTIN, FECAL 2022-05-12 02:23:[address] [facility] OCCULT (GUAIAC) BLOOD 2022-05-12 02:10:00 Ferdinand Kelly [facility] OCCULT (GUAIAC) BLOOD 2022-05-12 02:10:[address] [facility] URINALYSIS 2022-05-11 19:42:00 Romie Lewis [facility] CLOSTRIDIUM DIFFICILE 2022-05-11 19:42:[address] [facility] FECAL PATHOGENS BY PCR 2022-05-11 19:42:00 Ferdinand Kelly [facility] URINALYSIS 2022-05-11 19:42:00 Romie Lewis [facility] CLOSTRIDIUM DIFFICILE 2022-05-11 19:42:[address] [facility] FECAL PATHOGENS BY PCR 2022-05-11 19:42:[address] [facility] LACTIC ACID WHOLE BLOOD 2022-05-11 19:12:00 Romie [facility] LACTIC ACID WHOLE BLOOD 2022-05-11 19:12:00 [facility]ie [facility] BLOOD CULTURE SCREEN 2022-05-11 19:10:00 Romie [facility] LIPASE 2022-05-11 19:10:00 Romie Lewis [facility] COMP. METABOLIC PANEL 2022-05-11 19:10:00 Romie Lewis [facility] ([id number]) [facility] CBC WITH DIFF 2022-05-11 19:10:00 Romie Lewis [facility] GLYCOSYLATED HEMOGLOBIN 2022-05-11 19:10:00 Robin [facility] BLOOD CULTURE SCREEN 2022-05-11 19:10:00 Romie Lewis [facility] LIPASE 2022-05-11 19:10:00 Romie Lewis [facility] COMP. METABOLIC PANEL 2022-05-11 19:10:00 Romie Lewis [facility] ([id number]) [facility] CBC WITH DIFF 2022-05-11 19:10:00 [facility] GLYCOSYLATED HEMOGLOBIN 2022-05-11 19:10:00 [facility] BLOOD CULTURE SCREEN 2022-05-11 19:00:00 [facility] BLOOD CULTURE SCREEN 2022-05-11 19:00:00 [facility] CONSENT/REFUSAL FOR 2022-05-11 18:00:56 Doctor Unassigned, Unive [facility] DIAGNOSIS AND TREATMENT Sidell [facility] CONSENT/REFUSAL FOR 2022-05-11 18:00:56 Doctor Unassigned, [facility] DIAGNOSIS AND TREATMENT [facility] CT ABDOMEN PELVIS W 2022-05-10 03:29:54 Constantino Okeefe [facility] CONTRAST [facility] HB ABO GROUPING 2022-05-10 02:49:00 Constantino Okeefe [facility] LIPASE 2022-05-10 02:48:00 Constantino Okeefe [facility] COMP. METABOLIC PANEL 2022-05-10 02:48:00 Constantino Okeefe [facility] ([id number]) [facility] CBC WITH DIFF 2022-05-10 02:48:00 Constantino Okeefe [facility] CONSENT/REFUSAL FOR 2022-05-10 01:33:55 Doctor Unassigned, [facility] DIAGNOSIS AND TREATMENT [facility] MAGNESIUM 2022-04-29 08:47:00 Cordell [facility] FERRITIN SERUM 2022-04-29 08:47:00 Cordell [facility] IRON 2022-04-29 08:47:00 Cordell [facility] TOTAL IRON BINDING 2022-04-29 08:47:00 Cordell [facility] CAPACITY [facility] BASIC METABOLIC PANEL 2022-04-29 08:47:00 Cordell [facility] (NA, K, CL, CO2, GLUCOSE, Medica l Branch BUN, CREATININE, CA) CBC WITH DIFF 2022-04-29 08:47:00 Cordell [facility] MAGNESIUM 2022-04-28 09:51:00 [facility] BASIC METABOLIC PANEL 2022-04-28 09:51:00 Jaci Estrella [facility] (NA, K, CL, CO2, GLUCOSE, Medica l Branch BUN, CREATININE, CA) CBC WITH DIFF 2022-04-28 09:51:00 Jaci Estrella [facility] C-REACTIVE PROTEIN 2022-04-28 01:53:00 Jaci Estrella [facility] CLOSTRIDIUM DIFFICILE 2022-04-28 01:46:00 Jaci Estrella [facility] TOXIN [facility] FECAL PATHOGENS BY PCR 2022-04-28 01:46:00 Jaci Estrella [facility] COVID-19 (ID NOW RAPID 2022-04-27 18:36:00 Viv Ventura [facility] TESTING) Medical Branch LAB ONLY COVID 2022-04-27 18:36:00 Viv Ventura [facility] INTERPRETATION [facility] CT ABDOMEN PELVIS W 2022-04-27 17:16:[address] [facility] CONTRAST Medical Branch ABORH CONFIRMATION (LAB 2022-04-27 16:40:00 Viv Ventura [facility] ONLY) Medical Branch URINALYSIS 2022-04-27 15:38:00 Viv Ventura [facility] LIPASE 2022-04-27 15:10:00 Viv Ventura [facility] MAGNESIUM 2022-04-27 15:10:00 Viv Ventura [facility] TROPONIN I 2022-04-27 15:10:00 Viv [facility] COMP. METABOLIC PANEL 2022-04-27 15:10:00 Viv Ventura [facility] ([id number]) Medical Branch CBC WITH DIFF 2022-04-27 15:10:00 Viv [facility] PROTHROMBIN TIME / INR 2022-04-27 15:10:00 Viv Ventura [facility] ACTIVATED PARTIAL 2022-04-27 15:10:00 Viv Ventura [facility] TH[facility]ast [facility] HB ECG ROUTINE & RHYTHM 2022-04-27 15:09:41 Viv Ventura [facility] STRIP [facility] HB ABO GROUPING 2022-04-27 15:09:00 Viv Ventura [facility] NOTICE OF PRIVACY 2022-04-27 14:49:32 Doctor Nico, [facility] PRACTICES [facility] CONSENT/REFUSAL FOR 2022-04-27 14:49:05 Doctor Unamarialuisa, [facility] DIAGNOSIS AND TREATMENT [facility] Encounters Start End Encounter Admission Attending Care Care Encounter Source Date/Time Date/Time Type Type Clinicians Facility Department ID 2022-02-10 [facility] [id number] [facility]2 [place] 11:33:08 ANA [id number] [facility] 2022-01-25 Outpatient [facility] [id number] -2 [place] 15:47:07 ANA [id number] [facility] 2022-07-02 2022-07-03 Emergency X OLIVA, [facility] ERT [id number] Univers 21:53:00 00:19:00 [facility] 2022-07-03 Emergency Oliva, [facility] [id number] Univers 21:53:00 00:19:00 Justin INFANTE 350.1.13.10 i ty [place] [id number] [facility] 084 Roberts 2022-07-02 2022-07-02 Orders Doctor JESSEE [id number] Univers 00:00:00 00:00:00 Only Unassigned, NATE 350.1.13.10 ity of [place] [facility] 4.2.7.2.686 Kartik as [id number] [facility] 009 Roberts 2022-05-11 2022-05-17 [facility] [id number] Univers 13:03:00 14:23:00 RAYRAY [facility] 2022-05-11 2022-05-17 Emergency Joshua Romie [facility] 1.2.840. 114 [id number] Univers 13:03:00 14:23:00 Jaci Estrella 350.1.13.10 ity of Ray[place] Game[place] 4.2.7.2.686 [facility] [phone] [facility] 081 Roberts 2022-05-13 2022-05-13 [facility] [id number] Univers 10:30:00 11:10:00 Marybel INFANTE 350.1.13.10 i ty [place] SUR[place]ICAL [id number] [facility] 020 Branch 2022-05-09 2022-05-09 Emergency [facility] [id number] Univers 20:46:00 23:50:00 CONSTANTINO [facility] 2022-05-09 2022-05-09 [facility] [id number] Univers 20:46:00 23:50:00 Constantino INFANTE 350.1.13.10 ity of [place] 4.2.7.2.686 [facility] [id number] [facility] 084 Branch 2022-05-02 2022-05-02 Transition STEF Ccohran 1.2.840.114 [id number] Univers 00:00:00 00:00:00 of Care Lana TRUONGY 350.1.13.10 ity of [place] 4.2.7.2.686 [facility] [id number] [facility] 403 Branch 2022-04-27 2022-04-29 Inpatient X CORDELL, [facility] AV [id number] Univers 09:54:00 13:15:00 DARRYN ity [facility] 2022-04-27 2022-04-29 [facility] Viv Ventura [facility] 1.2.840.1 [id number] Univers 09:54:00 13:15:00 Encounter Jaci Estrella 350.1.13.10 ity of Darryn Landa 4.2.7.2.686 [facility] [id number] [facility] 081 Branch 2022-01-31 2022-01-31 Outpatient COH COH PIJFJJK QTO COH 00:00:00 00:00:00 [id number] 2022-01-30 2022-01-30 Emergency E KRYS, DANG KM 7503 Memoria 18:36:00 22:28:00 JOHN [facility] 2022-01-29 2022-01-30 Emergency E MARIAELENA DANG KM 7502 Memoria 21:25:00 00:58:00 GREGORIO Lyons l 2022-01-28 2022-01-28 Emergency E MARIAELENA DANG KM 7501 Memoria 11:02:00 14:55:00 GREGORIO [facility] 2022-01-24 2022-01-27 Inpatient E ALEJANDRA ADDISON MED 7500 Memoria 23:12:00 15:10:00 OBGEOVANNA Lyons l 2022-01-25 2022-01-25 Outpatient [facility] [id number] [place] 18:30:00 18:30:00 Health 2022-01-25 2022-01-25 Outpatient [facility] PIJFJJK QTO [facility] 00:00:00 00:00:00 [id number] Results Test Description Test Time Test Comments Results Result Comments Source COMP. METABOLIC PANEL (91520) 2022-07-03 05:30:27 Test Item Value Reference Range Interpretation Comme nts NA (test code = 9760276403) 140 mmol/L 135-145 K (test code = 8793671968) 4.2 mmol/L 3.5-5.0 CL (test code = 7543284041) 105 mmol/L 98-108 CO2 TOTAL (test code = 30 mmol/L 23-31 0438451866) AGAP (test code = 0383191131) 2-16 BUN (test code = 1341185997) 13 mg/dL 7-23 GLUCOSE (test code = 2333645588) 92 mg/dL 70-110 CREATININE (test code = 0.89 mg/dL 0.60-1.25 6622353896) TOTAL BILI (test code = 0.4 mg/dL 0.1-1.8 6948675050) CALCIUM (test code = 4549652202) 9.2 mg/dL 8.6-10.6 T PROTEIN (test code = 7.2 g/dL 6.3-8.2 5323177116) ALBUMIN (test code = 7939569325) 4.3 g/dL 3.5-5.0 ALK PHOS (test code = 2094140553) 62 U/L 34-122 ALTv (test code = 1742-6) 19 U/L 5-50 AST(SGOT) (test code = 32 U/L 13-40 3489740031) eGFR (test code = 9926813781) mL/min/1.73m2 ROBERTO (test code = ROBERTO) Association [...] or urine or abnormalities in imaging tests). [facility] WITH [id number] 04:54:46 Test Item Value Reference Range Interpretation [...] RDW-SD (test code = 47.4 fL 38.5-51.6 53227-4) RDW-CV (test code = 18.8 % 12.1-15.4 H 788-0) PLT (test code = See_Comment H [Automated 777-3) message] The sy stem which generated this result transmitted reference range : 150 - 328 10*3/ ?L. The reference r carlota was not used to interpret this result as normal/abnormal . MPV (test code = 9.9 fL 9.8-13.0 57740-4) NRBC/100 WBC (test See_Comment [Automat ed code = 2693158440) message] The system which generated this result transmitted reference range : 0.0 - 10.0 /100 WBCs. The refer ence range was not u sed to interpret th is result as normal/abnormal . NRBC x10^3 (test code See_Comment [Auto mated = 6313138104) message] The s ystem which generated this result transmitted reference range : 10*3/?L. The reference range was not used to interpret this result as normal/abnormal . GRAN MAT (NEUT) % 52.0 % (test code = 770-8) IMM GRAN % (test code 0.30 % = 9564269006) LYMPH % (test code = 28.1 % 736-9) MONO % (test code = 16.8 % 5905-5) EOS % (test code = 1.6 % 713-8) BASO % (test code = 1.2 % 706-2) GRAN MAT x10^3(ANC) 3.91 10*3/uL 1.99-6.95 (test code = 2787262600) IMM GRAN x10^3 (test 0.00-0.06 code = 9243574414) LYMPH x10^3 (test code 2.11 10*3/uL 1.09-3.23 = 731-0) MONO x10^3 (test code 1.26 10*3/uL 0.36-1.02 H = 742-7) EOS x10^3 (test code = 0.12 10*3/uL 0.06-0.53 711-2) BASO x10^3 (test code 0.09 10*3/uL 0.01-0.09 = 704-7) Lab Interpretation Abnormal (test code = 69637-0) [id number] 15:55:55 Test Item Value Reference Range Interpretation Comments Case Report (test code Surgical Pathology ? ? = [id number]) ?Case: [id number] ? Authorizing Provider: ?Marybel Sexton MD ? ? ? Collected: ? 05/13/2022 1129 ?Ordering Location: ? ? [facility] ? ? ?Received: ?05/13/2022 1621 ? [facility] ?Pathologist: ? Coleen Rosario MD ? Specimens: ? A) - LARGE INTESTINE, LEFT-DESCENDING COLON, random biopsies ? B) - LARGE INTESTINE, SIGMOID COLON, random biopsies ? C) - RECTUM, Random biopsies ? Final Diagnosis (test x4vgdTYoDFDmd6meFGQsvM code = 6751520453) FuZzEwMzNcZnRuYmpcdWMx IHtccnRmMVxlcGljMTAxMD DkLK8bqErxcYl1lUyzNBHy fnO1xYEdMMmtg0uoSNO9n0 ccphvnAHZcXCyjMr5cbYCx bObvGuEeAJBaLDq2bI21DR GbhY6amBNfOWl5NGTvxHHj yeDeItUcRBFohYBifAK0IA BlJC6bqyooPZgrHHbqAGNc blN0TIHmuUKrG0CtHIWvEW 5qgauwENL7GJbzNMWiAKD0 NqRaNWZhp6Zmmcs4NyLikN FyZFxwbGFpblxmczIwXHBh gkojwLR4BEdaiC87HFQnuV vcLTNgMJHcFIVOXI7UBZYV AUWVVMERI8KHFyHJIikwIH DLWhTRYKWHND6OU0e8JUzf LMEiwSbnWIMeBKbduM1lQJ TqYCVsUONYNK5WDGWlURWA D3BSSRhADUhfJUxSZSXyJR ZOSCMEQPZQZnisP4RUARIx JBGBQ2XSUujkYQ3NRmIKZ5 PHJBnRNKZIE8JUJOTBLTJP VElDXHBhciAgICAgICAgSU 6KDBpOViMUBSWEQmMCJC1Q KnLrZUSLAVLMLAguHP6NXS CJJTBKRARML9bSQCWZHCYX RJmeHDuXMP5WZCkZWormT7 9XR2gLDVLLOZSRZNNRYTcp YXIgICAgICAgIFNFVkVSRU xZIEFDVElWRSBDSFJPTklD IENPTElUSVNccGFyICAgIC 5oSx4jE9EYWaDJD53QBH5J AARGF7UTXWZWVOMDSJTCGB lGSUVEIFxwYXJccGFyXGxp HMCpDVJaHHK9HBrouU27UJ SxOa7aZ86UM28gNEYPX65I XNUiGOUZEzUQFBWFLZ6CT1 f0OVftQXTlgDchIOXgKOgf lI6hCJGcBF0pI58QG48GSf ZOPWMES4EvP1uDFJDKEJGM GtzlL9SOQTXGOBdXXDJZMj lQVCBBQlNDRVNTLCBJTkNS RUFTRUQgTFlNUEhPUExBU0 3JT9tWEHPqdKTwUHLeBRMo NZ7RNLeFHuAZLLUFOdLSOE 9FPxRxTGMSBALAESssRC9L WSHZFEROILWIY3mRLGJBZC FBRBhkSJpLIJ2GLBxUCeve D3REXERiGETZZAODSCJssU SeGUPjCDTmY34IJ8pAGGLE VCBXSVRIIFNFVkVSRUxZIE FDVElWRSBDSFJPTklDIENP MUyQBLKxePNrPHAgNU3oZy 5aY5ZEQiSEH22BZU2YWWWP L9MWINJLHZBDJZPIUNpKJZ VEIFxwYXJccGFyXGxpNDUw SWGnMFZ8WOpxpM78XECdJo 5pYiQBXPWOAQTHDF9KY26d QklPUFNZOiBccGFyXGxpMF xmaTBcbGluMCAgICAtIENP YM0YCREnXHJKN2GKWQfIYG ggVUxDRVIsIENSWVBUSVRJ EyuuB4IEYFRqZSTWI5QALi rnRN3SKuBIN1EKRCoGKDNZ F0OTMAMUXVRFNSmYEQGxzt AgICAgIElORklMVFJBVEUg LF3dXVPYZQ1MPETSO4AHGX EsIEFORCBDUllQVCBBUkNI VZNJC7RBKkDREMSZS6HXAy LEW35uULCGJSBQDOKSH2Zc Z2CWOIwbZWEvWFRuKOETU3 1SGGYGST7KQZpFTBjgU1OY RVJFTFkgQUNUSVZFIENIUk 0EDLSzZTTNP5YNLEyBYUQf qoPhXMJqCM8PHCxZOJ1VYR 9NQSBPUiBEWVNQTEFTSUEg SURFTlRJRklFRCBccGFyXH EicsfaduNvBMfuBlo1FQRt XGxoQL2uLYRAZYPvNN6xOM 0ySVFzTGk3RVetIJ5onABf RVJphhAoYrVfGZryFEA1a9 xydGYxXHNzdGVjZjIyMDAw ZSZwn0guTYMjbZMsWaJfSt NcZnRuYmpcdWMxXGRlZmYw m4dia122rPZrh1jiDGVpQb Q1zRRwIISohOpstom5mOse FnDxYXEyu9vygwXlVcDgGC RfUJQyIPPreLYkV033PXSy XMixj8zwu1NmZGPuhWKtk8 Q8AGORSRknMlZlH457c0yq r7hmzuOdeZU4DJAmRUK5BB cmjjPevbH9MWauwCFlDxM6 IDtccmVkMFxncmVlbjBcYm s8QRRvD705ZZI5bHpoh0og LWW5UGQaBQLoZrymXz4jbU DtI533BVIbTAOOGZMrwFd2 BSOdkyMszyZggSDGb066Z6 32b9wmSWSucxUerMmEdkvq a5reE395FMTcrZRuruHaKy AlSYJurUEjnRZ7QYXoKT2q ojtuCWhsWIsrYZEalvG5QG JycEBpG9BhIFKzMH4jtvbp MBA7DRvbINJsVYX2YcHkUQ Msk5Yckgu9ThZtle9hcd53 POY6w6JfmQjzKBG8JFM1Tv QbKk6ijVFiSPQyQY2xMyJm rRDqMJHwdm02vBosEMfsvf GzxY8bUrCnPNDtiLFfIVZe XO9ngCPnKNXsoM4entywUK BnYnJkcmhlYWRccGdicmRy Um6hbPywXZN0HRnhZ0upcQ 0tJpZ4RWndP8jgaH0mBGx3 JRdrhHF1SIJipN3kDO4vwa ncn0hqWMqwRJemNHGvfpA3 xoB3SCEzsLCyU5ZlpN2qFZ RrUL0ghtgyy6noARL1DHgc NDFkSZS8DiKaODPxf3Orch s8OjDnz6CjcCPiQVmlD50i i778EICanlDlM2lxjHQxgv mmuZTtwwclEPptriR9FKAt XHBsYWluXGYxXGZzMjBcbG FuZzEwMzNcaGljaFxmMVxk XhRzSGGpPZdaM6heAeKlD8 YyXGZzMjBccGFyIEkgaGF2 XDIrOUXaf29kaRb8QPZjwr sfx1VbIHSlrSHsoTAxaK9t gsMjo7mmTDFoACIbXSRwE0 NdHOM2jTXpWXSglMNpeCI1 CR5sjxMwUE3nVFFsDvrgsk UbhXGfqwEnSKDsOFitl3sd OA3hSHIpwNkzlF7msVA4IU Tjg8utuEKarTLrc5cbo4Ux bmFtZShzKSBtYXkgYXBwZW SyZR1uWPUrlYBnuzCmv8Q8 ZzsyfQEyobszIbbacbS8SY mfhqqhRUOvXTzhA8pyOzGt PJOluLsbZckmh2FaMHXbSE ZzMjhccGFyfX0= Final Diagnosis Comment l6tbkQVeGGRlaENnNZJyF7 (test code = auywSnPSMexUDjY2Bnggya 3158627884) CQnkVG9qYC8euMhhzXRqnE MfHTZaKkJwj1bav865nXQb x4blZAQOsgrbjPw8cJnmR3 9gf8X5UeyhD00swNQgXQD1 NHPpCNZzqLQpJKHbEJS8HQ AywKJoY0uwQMLrTP5fauxl YDlsJBznNAZjcTZ0ROCftQ XdT4VmFWQbUXdzRFQofkr6 TtGeWv8rnAYvyNeePWujCG JkXHBsYWluXGZzMjAgRHIu BSShbCZoFGMegmT8dAO0SE SaxKkjRKSoa3CqCS6cVWBc gmV4hjJru9a0rJL8jNGjXL sjM97hy1tgNjGlLRMwpf8= Clinical Information colitis (test code = 5881749643) Gross Description (test a3cleAPtUCZsrDEURSAzMF code = 7905150973) YbAQ3gfWexfRc0iUzrKHEn mfP1kFQqOFnmz7yfFPD9g6 llbiANClxkZWZmMVxwYXBl nhbxAcX7SWwoUAXhamyeNM v3BWmaLUPhoIC3HHTdnUPz K6OnFLLiVM0opzp1KLP5UB mdOXOpOgU6CIZyAaEeXckk SXg1CDHaucU7Lya2EBGzEE McoGPmq5K1OKkbxmoiEFMp oERlC078BRlnl5XvnPZtUP pccGFyZCANCntcKlxlcGlj x9LmsRBoXPvqKNDuDBNpDW lbfanxGCa2KFUyIEusbRKk US1gtUckRmkshPbcx4GjaM BcXGlkIDUxMDAyIFxcZGIg TC5FLbVkZAM9KCbfHucuDP q1CVg9WB1HRoJzITYhAPLs QkV1UZAqSLs1XUriSJ0YFY X1KUC5UYE8GYGqEVMuMtpg IWf3KRNdPVbpJXBlnAHcCV kfTnVyNKDuJLlcoQAgQH1p fVxwbGFpblxmczIwIFNQRU CNKQRGPKFigNKzUN5BSLFp SXixPAHxhECAPLN2AN0vWM ANClxsdHJwYXJcbGluMFxy lW7pJL2XNLw1mlMsSEFhRh GsR9WgA0vyTK2aOQUtwpSv JRAzrEYwHKEovgVto1XyZG rqkoGuFCXsoPhsDHU5oACh PFSdEOToDBHuCJ87LEqMXM MgbmFtZSwgVUggbnVtYmVy IGBgIGxhcmdlIGludGVzdG atPFignVAflNHfWBZqZV1g cS3kJZVzXP7ga77hMgimdZ WzAJPdB5N0CUnJTCUiipSz P83sf0brkWNsm5KfkHYmjG lwbGUgdGFuLXBpbmsgaXJy SCk6mLVvMGXbIyGczUnpz8 XcSCBgKMafMS06fgBoON1l LTAuMyBjbSBncmVhdGVzdC UgvL2xcfDtf77aOWDlZRT2 QTUwCZN4EFTjESMslECije NmG7ezCYadgYQxDjCGzDCe v3HxE1vsDJ0unGBuQkqrjJ KrWXUamGeqd1XzyDNnAATd z1AwtWByVQsmCY7lUUZ0Sm 6fxDEzFDKowlH4p0LyHOsz KDIvHlzfsY9mKYtozR4pMH 5EMNDtaGURGJZ0WN0qVHu3 UZnfFQNnX7IzW8BndmCqoT EgZGBoyiUui2wnBMG4PVBo aXCovPGrKeNyRczvRKK4TR ErNAxiSI8Fr4vdDZEboUZv NNE4AZcqxLBcCTEzQEGhVO qzQtXbR0KVHOCsVln9ZfX4 IGIxYTv5DHatX9KEOMMwOD BdEvF9MED6PaX9KBt1SMOT Di7eTZO8BLRpWiTiZQO4JX EzOSBcXHQgMiBcXGYgQXJp YWwgXFxmcyAxMCBcXGZsIF kozpY2SECtMDzsNVEjUqCy V5ABU4tIBM9vJjpgFKNwRN blsPdsfK7iRWNkQ06nw3QS h5XaGO2NYKj3xkIefgpenV 7tHPVobyEtYSjnpTBuF6jz ScNdOdSRfYWrdO6qrhZOPK inAYAmG5VdidOhIBtaBEUh wv0ykBkwKNhbPmOsiFLiGU dpdGggdGhlIHBhdGllbnRc T8A3liCcJH4jCZXGVGIcrW 4uZRVxRBKmqQUwE5DyxM02 AWM9vT7cGXFzlRhts0lwRC VoxG0zTALdGU0rl75hCbwu sRHzCXCdR6P0QBuUCLBypm QhV80lp2sghNZty1TxsGJr dGlwbGUgdGFuLXllbGxvdy MqfgChG8MrLDDly60amZM1 wVZwqLDrScEjO50tphNoYO sqJkFfMK6nSZOwMLveTIvi BDD9PRQ4HAJxvAAfl2sxfu dzVI5cGJzqJQ53CBidZD6d ZPWmXEigBFMyL7XxQ0Y7IS eqVUJeJCHfbJYqcF1fstAs fhZkzRy2KFHnCHJ3bDJiuZ beFYByTtldmMX0LFHsNpWo ugWxn1AecVy1vKExWTagHB AqlS8wnU6iNzFbZGawksHi DSqbmmZoPVncYMAxB19pl3 MDz3FzWPKza8grwBifm8Ww dGVuZFxwYXJccGFyZFxzbC 4kGuGwb7mnlHb4IHehzqS0 JQKwth9exCsleS7yAUc3IO vmSCXsP1GqK3SrYKxwOOZ5 MTAwMiBcXGRiICBPVlIgIi IkQJQ6RIY3NyX1PCq2DHEP DvDcDvDbZrMuEEN0PoahHA l5FQo5ZNsOXpVzMkT0CAZ4 UWFnBRV2EHH7VXezvGBgBH xcZiBBcmlhbCBcXGZzIDEw HFxyRillZHnhM17njRbawQ 1aZnPpCMGWISRRPI1QIkYU XHBhciANClxwbGFpblxlcG ljTmVzdERvYzEgDQpcbHRy cGFyXGxpbjBccmluMCANCl xsdHJjaFxmczIyIFNwZWNp eQHuHVHysMDwpbYmJZb4QS UdlA3uCh7zmCUliT6krOCj TTkpEGSlo9n0cAU7xALtvM G6aQLvjNqtVsJaLI4dpJYp PJPLNP13qNMshwDnCODrFL N2bK2eQZOqpxIbbGQgcY0l u8kti7niPgNsX9F4PSAnMT Mim14tsQX2ilUlBtK8PBIr bhXrnhScD7OsMGRno15xxE M5hHBsaLJpTkRiK43nrgBk PAasPsDvST4bXOWrSBewRM diTMT1MCY5DOJcrYNad9og kebhWS33UGjfCT1uNBkiDH 8fRXYrUIqpWYGoC6EgP8N7 HGsgPOYtJOEkqYPzhB2izy CkqdCjcQt0ETOuXHK1bLJj kPwwYDGvYqjovBM5IFJqOd FaitWfy2ThxJx0oFOqQGzn VHRhaL1upM9lKfKoYWlnxq UgXGxpbmUgSnVsaWUgTWNJ qHzvsnN2GKEPZVTeNQOQXR kNClxlcGljTmVzdERvYzBc feV0WAIpmRGuSLZ4QC8qPB GmjvqvBXXoQTAxRGD9TQqa zO84tKIuFPBgRUZxaCQaaO ljaHJkjbQQVkgkgJ1kEeFi l2vcrQm9OUGYZcttoWPkmt nkkqZ6KZSwy0popRtpl8Jh dNQvLX8qzFfetR1bMvTtPw ANCn0= Disclaimer (test code = i3qroTSeATNyn6enECRoxX [id number]) FuZzEwMzNcZnRuYmpcdWMx HIgeipBoHVtie0VrI0IhIx AwMFxhbnNpXGRlZmxhbmcx OWRgUIO9ztOgHQSoKLxjRA UpFSshGy3umBVqdYpbHyBe YHEfw4zdjfDVMQwjKyTjS4 97TAPbWYlyy7qpz7PzGLVm iHDig9L1AZRMbptlaXr2zA arA68gf5K4HwbiI3nlVTJw TXJzX6AwZZ8xRVDwRiq4XE X4GUE9CGBqZKQcF7GvCU5x XYVvnUSrANm1c4ybqBjsXW KaUUU6c4qxPBvolvKwPS7v yz8fxUp2x2qkdxXjBFDyEE WspWFRRMJsC5GgnQoyHd6o oKc2pIsqKwygMAC1Xmr5YA 1onj71ocw7rKonQDZjdnqg ShH3FTypWPCbshulNFo1DC riWAIhwYB0FUEalLLhC3Ll TPJjRD4nitr9OGU1WWkgHT OgRrH0SGKplIWcKQXtkBkf DCzwn036NQA2RrDzWN7cL7 Zpc9V4kD6uiXVrBBYjsHYr KiFxBFYkwp1oaMMcENihe4 FtAMR2boV4rUHdlUFhYVIl EE36Xgubi5JxJpnor6ZrJ2 0bqLU5MWqkt6mmYF0pKtS0 dfFdWDrmp5tkdH1wYrN9DZ weQO7fID9yKCFjrM3lihqt XHBnYnJkcmhlYWRccGdicm JgMg3ryQkkLRT0NYwqX2ic eJ9eDiD1OKnbQ9jmgZ0tTB b2LPgynBR0BPIleN4aQO8m yezjn6yqVDrsANjsNJZhkg B7oeN6AHYsrNOqN9JnaF2k CDJiCP4mgbwld9erSRZ4XR igLOYyIWY9NrLzJGIgv7Pl cgs1QlScu9WpbUPhRDjeM3 9ck812UTAqjhWsQ9etcWNf mrukjLPixrhuWArizeH9XO ZhdhUmj2JiDVGaQEL6NMnz IJryoRZxTQEolVgyc6jvK8 RscGFyXHBsYWluXGYxXGZz MjBcbGFuZzEwMzNcaGljaF kqYOycIsIzNOJsDRbdU4ao QlPsQ2EyXJPvEqTbjORcL9 ggVGhpcyByZXBvcnQgbWF5 YUrfA0u7VUIzpgKaxOn0ad IhZmMdDKBvRVC0DOskeYVe TZTpx9XhdrqywFKjOi9tkW WnOQUwhL2mOCJaHSQfFOkt OX8vxFr2CBCOySGzwKYmJa WBUVKrXX07iiZeYVUQhffx f2D0TTrdIDPnp2PtzUQbZ0 roe8BrPNGos78xRL8hi7E3 a4vtCZR9RQ6qd3PnBMImmP LjfOGyLRAmr2Syiajmt8Yh XCXtowRdj8QgQLSctpQveM IsSTOydoSeem8ijhFlURGo LQXoS9ZvfgwmzLgwczIdRJ Pfne5zaiTsMNN1MAWBANHx QIPmr9LzdW2aaIEOVOW6xX Rviu5heoFDfSYzMIZwfs75 KQMpWJ3rH9wqUTDiJHFixn KonIHyb8YcWNPhtFN4jVVi OW4RAcLIq81gVHMlEUBDzn MiDJGnlEhnwWB4evX8qA0v IChGREEpLlx+IFRoZSBGRE UiXM3yzmVfr9LjglLuvBqr TRQvzZBru2NaiIJwb0HqbM gzg1FzwAOotECxBD1pTAOi clxwYXIgVVRNQiBMYWJvcm T1e5EyDWKqAPKbVWF2iBmt obk7HKKffN9sLSUfE5jlln xcVBgtIRJhh0WofM9ikZLY lJEfb5JeqOCpvHMWpNVgTU 1ghcEzDNiJOMdTTOK3vsEa OPKnf0OnVAisV7lxF93vmA aqcKs2oSX2MGO9eS2fAgh+ IFxwYXJccGFyIEFwcHJvcH JyKQJzfZyjceNvI7LcdjAy wW2hpLDrtjPnEU0xLD1jT8 C2qFArUDMplcNaa4buOVtv dmUgYmVlbiByZXZpZXdlZC Pbj9OzBSzbQKW7JSryndUl bmNsdWRpbmcgSCZFLCBTcG PgdDFzBPM3WYebaxVuivPe HJ0jhB7kyUnjnL8gxLInpS P9qbftFCMtSNRrkXulBXSq PR7gyEDtOBHaewXFjSqiqY TmeC3zJ8VtXOOcPDDddl2d DBJkiJ3uVPanf0HrushiMT DvARHxJDEjhuApvq9nZPQl lMHGNP2LUYlymCHfi3Uinr UqR1bZUEK2QCGgIzVySaqc PLLspXFtoQHeGCRpop96HF LplT0tyUrhHLCuoC0pzF6f qNesyQ9tImYuJdSkKJalAZ 4lHHPbA3nkdXDgGVUhELGi T2piGpHpzR1drOqiIMitVv FwBfCrELvdYGT7fI== Embedded Images (test code = 3340963873) [facility] - Peripheral # [id number] 20:01:59 Test Item Value Reference Range Interpretation Comments Blood Culture-Aerobic No organisms No growth Previo us (test code = 76285-4) isolated prelim inary verified result was Culture [...] Culture-Anaerobic isolated preliminar y (test code = 19433-7) verifi ed result was Culture In Progress [...] CDT Lab Interpretation Normal (test code = 58849-0) [facility] [id number] 20:01:59 Test Item Value Reference Range Interpretation Comments Blood Culture-Aerobic No organisms No growth Previo us (test code = 97818-8) isolated prelim inary verified result was Culture [...] Culture-Anaerobic isolated preliminar y (test code = 37237-3) verifi ed result was Culture In Progress [...] CDT Lab Interpretation Normal (test code = 77139-5) [facility] Culture - Peripheral # [id number] 20:01:59 Test Item Value Reference Range Interpretation Comments Blood Culture-Aerobic No organisms No growth Previo us (test code = 41158-0) isolated prelim inary verified result was Culture [...] Culture-Anaerobic isolated preliminar y (test code = 73906-4) verifi ed result was Culture In Progress [...] CDT Lab Interpretation Normal (test code = 69098-0) [facility] Culture - Peripheral # [id number] 20:01:59 Test Item Value Reference Range Interpretation Comments Blood Culture-Aerobic No organisms No growth Previo us (test code = 17245-6) isolated prelim inary verified result was Culture [...] Culture-Anaerobic isolated preliminar y (test code = 73966-2) verifi ed result was Culture In Progress [...] CDT Lab Interpretation Normal (test code = 34254-1) [facility]0500 Routine 2022-05-13 13:43:26 Test Item Value Reference Range Interpretation Comments ABO & RH (test code O Positive Performe d at [facility] = 20) Laboratory [facility] [place], [place] [address]Toll Free: [phone] A No. [id number] IAT (test code = Negative Performed a t [facility] 1185) Laboratory [facility] [place], [place] [address]Toll Free: [phone] A No. [id number] [facility]0500 Routine 2022-05-13 13:43:26 Test Item Value Reference Range Interpretation Comments ABO & RH (test code O Positive Performe d at [facility] = 20) Laboratory [facility] [place], [place] [address]Toll Free: [phone] A No. [id number] IAT (test code = Negative Performed a t [facility] 1185) Laboratory [facility] [place], [place] [id number] Free: [phone] A No. [id number] [facility], [id number] 22:16:10 Test Item Value Reference Range Interpretation Comments VIT B12 (test code = 603 pg/mL 240-930 [id number]) ROBERTO (test code = ROBERTO) Biotin has been reported to cause a positive bias, interpret results relative to patient's use of biotin. Lab Interpretation (test Normal code = 09389-3) [facility], [id number] 22:16:10 Test Item Value Reference Range Interpretation Comments VIT B12 (test code = 603 pg/mL 240-930 [id number]) ROBERTO (test code = ROBERTO) Biotin has been reported to cause a positive bias, interpret results relative to patient's use of biotin. Lab Interpretation (test Normal code = 50429-3) [facility], [id number] 21:50:29 Test Item Value Reference Range Interpretation Comments VIT D 25OH (test code = 25-80 L 52790-5) ROBERTO (test code = ROBERTO) Deficiency: <20 ng/mLInsufficiency: 20-24 ng/mLOptimal: 25-80 ng/mL Lab Interpretation (test Abnormal code = 65227-4) [facility], [id number] 21:50:29 Test Item Value Reference Range Interpretation Comments VIT D 25OH (test code = 25-80 L 55455-5) ROBERTO (test code = ROBERTO) Deficiency: <20 ng/mLInsufficiency: 20-24 ng/mLOptimal: 25-80 ng/mL Lab Interpretation (test Abnormal code = 63757-4) [facility] [id number] 18:56:01 Test Item Value Reference Range Interpretation Comments CRP (test code = 0.9 mg/dL See_Comment H [Automated message] 3038243406) The system [employer] generated this result transmit eunice reference range : <=0.8. The refe rence range was not u sed to interpret th is result as normal/abnormal . Lab Interpretation (test Abnormal code = 81123-5) [id number] 18:56:01 Test Item Value Reference Range Interpretation Comments CRP (test code = 0.9 mg/dL See_Comment H [Automated message] [id number]) The system [employer] generated this result transmit eunice reference range : <=0.8. The refe rence range was not u sed to interpret th is result as normal/abnormal . Lab Interpretation (test Abnormal code = 98011-5) [facility] [id number] 13:43:08 Test Item Value Reference Range Interpretation Comments TSH (test code = See_Comment H [Automated message] [id number]) The system [employer] generated this result transmitted ref erence range: 0.45 - 4 .70 mIU/L. The refe rence range was not u sed to interpret this result as normal/abnor mal. Lab Interpretation (test Abnormal code = 24098-6) [facility] [id number] 13:43:08 Test Item Value Reference Range Interpretation Comments TSH (test code = See_Comment H [Automated message] [id number]) The system [employer] generated this result transmitted ref erence range: 0.45 - 4 .70 mIU/L. The refe rence range was not u sed to interpret this result as normal/abnor mal. Lab Interpretation (test Abnormal code = 15534-3) [facility] [id number] 13:21:44 Test Item Value Reference Range Interpretation Comments NT-proBNP (test code 54 pg/mL See_Comment [Autom ated = 1100320668) message] The system which generated this result transmitted reference range : <=125. The reference range was not used to interpret this result as normal/abnormal . ROBERTO (test code = ROBERTO) Biotin has been reported to cause a negative bias, interpret results relative to patient's use of biotin. Lab Interpretation Normal (test code = 79609-8) [facility] [id number] 13:21:44 Test Item Value Reference Range Interpretation Comments NT-proBNP (test code 54 pg/mL See_Comment [Autom ated = 2675237298) message] The system which generated this result transmitted reference range : <=125. The reference range was not used to interpret this result as normal/abnormal . ROBERTO (test code = ROBERTO) Biotin has been reported to cause a negative bias, interpret results relative to patient's use of biotin. Lab Interpretation Normal (test code = 40406-1) [facility]83358)(TOTAL CHOLESTEROL, TRIGLYCERIDES, HDL)2022-05-12 13:12:48 Test Item Value Reference Range Interpretation Comments CHOL (test code = 124 mg/dL 120-200 2336301816) HDL (test code = 27 mg/dL See_Comment L [Automated message] 7805594787) The system [employer] generated this result transmit eunice reference range : >=40. The refer ence range was not u sed to interpret th is result as normal/abnormal . HDLC RATIO (test code = See_Comment [Au tomated message] 6968700983) The system [employer] generated this result transmit eunice reference range : <=5.0. The refe rence range was not u sed to interpret th is result as normal/abnormal . TRIG (test code = 104 mg/dL 30-170 9143478733) LDL CHOL (test code = 76 mg/dL See_Comment [Auto mated message] 48842-3) The system [employer] generated this result transmit eunice reference range : <=160. The refe rence range was not u sed to interpret th is result as normal/abnormal . VLDL (test code = 21 mg/dL 5-60 4006406957) Lab Interpretation (test Abnormal code = 13810-1) [facility] (41572)(TOTAL CHOLESTEROL, TRIGLYCERIDES, HDL)2022-05-12 13:12:48 Test Item Value Reference Range Interpretation Comments CHOL (test code = 124 mg/dL 120-200 5312704100) HDL (test code = 27 mg/dL See_Comment L [Automated message] 8600862427) The system [employer] generated this result transmit eunice reference range : >=40. The refer ence range was not u sed to interpret th is result as normal/abnormal . HDLC RATIO (test code = See_Comment [Au tomated message] 4531643482) The system [employer] generated this result transmit eunice reference range : <=5.0. The refe rence range was not u sed to interpret th is result as normal/abnormal . TRIG (test code = 104 mg/dL 30-170 9702197550) LDL CHOL (test code = 76 mg/dL See_Comment [Auto mated message] 49962-6) The system [employer] generated this result transmit eunice reference range : <=160. The refe rence range was not u sed to interpret th is result as normal/abnormal . VLDL (test code = 21 mg/dL 5-60 9402881219) Lab Interpretation (test Abnormal code = 00538-5) [facility]2022-10-06 13:12:47 Test Item Value Reference Range Interpretation Comments MAGNESIUM (test code = 0391586560) 1.8 mg/dL 1.7-2.4 Lab Interpretation (test code = Normal 07669-5) [facility]2022-10-06 13:12:47 Test Item Value Reference Range Interpretation Comments MAGNESIUM (test code = 6468516158) 1.8 mg/dL 1.7-2.4 Lab Interpretation (test code = Normal 85726-6) [facility] (14321)2022-05-12 13:12:27 Test Item Value Reference Range Interpretation Comments NA (test code = 139 mmol/L 135-145 4900496868) K (test code = 3.5 mmol/L 3.5-5 8983202363) CL (test code = 106 mmol/L 98-108 6869976089) CO2 TOTAL (test code = 27 mmol/L 23-31 2499156456) AGAP (test code = 2-16 5785489841) BUN (test code = 7 mg/dL 7-23 2903275685) GLUCOSE (test code = 87 mg/dL 70-110 4906814028) CREATININE (test code = 0.89 mg/dL 0.6-1.25 8642265734) TOTAL BILI (test code = 0.3 mg/dL 0.1-1.8 1944629495) CALCIUM (test code = 8.4 mg/dL 8.6-10.6 L 6484441683) T PROTEIN (test code = 6.7 g/dL 6.3-8.2 4199159166) ALBUMIN (test code = 3.5 g/dL 3.5-5 0802472952) ALK PHOS (test code = 81 U/L 34-122 4014029622) ALTv (test code = 13 U/L 5-50 1742-6) AST(SGOT) (test code = 22 U/L 13-40 3688041652) eGFR (test code = mL/min/1.73m2 9514099856) ROBERTO (test code = ROBERTO) Association of [...] tests). Lab Interpretation Abnormal (test code = 79401-2) [facility] 13:12:27 Test Item Value Reference Range Interpretation Comments PHOSPHORUS (test code = 4448951102) 3.8 mg/dL 2.5-5 Lab Interpretation (test code = Normal 75407-0) [facility] (75653)2022-05-12 13:12:27 Test Item Value Reference Range Interpretation Comments NA (test code = 139 mmol/L 135-145 1491431485) K (test code = 3.5 mmol/L 3.5-5 3491009583) CL (test code = 106 mmol/L 98-108 5873300730) CO2 TOTAL (test code = 27 mmol/L 23-31 4207062359) AGAP (test code = 2-16 5745709226) BUN (test code = 7 mg/dL 7-23 7799888952) GLUCOSE (test code = 87 mg/dL 70-110 2354294679) CREATININE (test code = 0.89 mg/dL 0.6-1.25 7883749006) TOTAL BILI (test code = 0.3 mg/dL 0.1-1.4 8183264113) CALCIUM (test code = 8.4 mg/dL 8.6-10.6 L 2021034397) T PROTEIN (test code = 6.7 g/dL 6.3-8.2 1122470693) ALBUMIN (test code = 3.5 g/dL 3.5-5 9534934090) ALK PHOS (test code = 81 U/L 34-122 7475868087) ALTv (test code = 13 U/L 5-50 1742-6) AST(SGOT) (test code = 22 U/L 13-40 5551580118) eGFR (test code = mL/min/1.73m2 3396182368) ROBERTO (test code = ROBERTO) Association of [...] tests). Lab Interpretation Abnormal (test code = 27079-4) [facility] 13:12:27 Test Item Value Reference Range Interpretation Comments PHOSPHORUS (test code = 9424977989) 3.8 mg/dL 2.5-5 Lab Interpretation (test code = Normal 22452-2) [facility] WITH [id number] 13:09:25 Test Item Value Reference Range Interpretation [...] RDW-SD (test code = 39.2 fL 38.5-51.6 46486-0) RDW-CV (test code = 14.7 % 12.1-15.4 788-0) PLT (test code = See_Comment H [Automated 777-3) message] The sy stem which generated this result transmitted reference range : 150 - 328 10*3/ ?L. The reference r carlota was not used to interpret this result as normal/abnormal . MPV (test code = 10.1 fL 9.8-13 92557-2) NRBC/100 WBC (test See_Comment [Automat ed code = 1610358181) message] The system which generated this result transmitted reference range : 0.0 - 10.0 /100 WBCs. The refer ence range was not u sed to interpret th is result as normal/abnormal . NRBC x10^3 (test code See_Comment [Auto mated = 0565530673) message] The s ystem which generated this result transmitted reference range : 10*3/?L. The reference range was not used to interpret this result as normal/abnormal . GRAN MAT (NEUT) % 46.1 % (test code = 770-8) IMM GRAN % (test code 0.10 % = 6148386905) LYMPH % (test code = 33.9 % 736-9) MONO % (test code = 11.8 % 5905-5) EOS % (test code = 6.3 % 713-8) BASO % (test code = 1.8 % 706-2) GRAN MAT x10^3(ANC) 3.27 10*3/uL 1.99-6.95 (test code = 5510306576) IMM GRAN x10^3 (test 0-0.06 code = 3853376331) LYMPH x10^3 (test code 2.41 10*3/uL 1.09-3.23 = 731-0) MONO x10^3 (test code 0.84 10*3/uL 0.36-1.02 = 742-7) EOS x10^3 (test code = 0.45 10*3/uL 0.06-0.53 711-2) BASO x10^3 (test code 0.13 10*3/uL 0.01-0.09 H = 704-7) Lab Interpretation Abnormal (test code = 02878-0) [facility] WITH [id number] 13:09:25 Test Item Value Reference Range Interpretation [...] RDW-SD (test code = 39.2 fL 38.5-51.6 57491-2) RDW-CV (test code = 14.7 % 12.1-15.4 788-0) PLT (test code = See_Comment H [Automated 777-3) message] The sy stem which generated this result transmitted reference range : 150 - 328 10*3/ ?L. The reference r carloat was not used to interpret this result as normal/abnormal . MPV (test code = 10.1 fL 9.8-13 26199-2) NRBC/100 WBC (test See_Comment [Automat ed code = 7199959680) message] The system which generated this result transmitted reference range : 0.0 - 10.0 /100 WBCs. The refer ence range was not u sed to interpret th is result as normal/abnormal . NRBC x10^3 (test code See_Comment [Auto mated = 2655263123) message] The s ystem which generated this result transmitted reference range : 10*3/?L. The reference range was not used to interpret this result as normal/abnormal . GRAN MAT (NEUT) % 46.1 % (test code = 770-8) IMM GRAN % (test code 0.10 % = 6440379618) LYMPH % (test code = 33.9 % 736-9) MONO % (test code = 11.8 % 5905-5) EOS % (test code = 6.3 % 713-8) BASO % (test code = 1.8 % 706-2) GRAN MAT x10^3(ANC) 3.27 10*3/uL 1.99-6.95 (test code = 1341952143) IMM GRAN x10^3 (test 0-0.06 code = 7145220604) LYMPH x10^3 (test code 2.41 10*3/uL 1.09-3.23 = 731-0) MONO x10^3 (test code 0.84 10*3/uL 0.36-1.02 = 742-7) EOS x10^3 (test code = 0.45 10*3/uL 0.06-0.53 711-2) BASO x10^3 (test code 0.13 10*3/uL 0.01-0.09 H = 704-7) Lab Interpretation Abnormal (test code = 28044-6) [facility] / [id number] 13:06:44 Test Item Value Reference Range Interpretation Comments PROTIME PATIENT (test See_Comment H [Auto mated message] code = 5964-2) The system [employer] generated this result transmitted ref erence range: 12.0 - 1 4.7 Seconds. The reference range was not used to int erpret this result as normal/abnormal . INR (test code = 6301-6) Nor mal INR <1.1; Warfarin Therap eutic range 2.0 to 3. 0 or 2.5 to 3.5, dep ending upon the indica tions. Lab Interpretation (test Abnormal code = 55594-2) [facility] / [id number] 13:06:44 Test Item Value Reference Range Interpretation Comments PROTIME PATIENT (test See_Comment H [Auto mated message] code = 5964-2) The system [employer] generated this result transmitted ref erence range: 12.0 - 1 4.7 Seconds. The reference range was not used to int erpret this result as normal/abnormal . INR (test code = 6301-6) Nor mal INR <1.1; Warfarin Therap eutic range 2.0 to 3. 0 or 2.5 to 3.5, dep ending upon the indica tions. Lab Interpretation (test Abnormal code = 58871-6) [id number] 02:59:10 Test Item Value Reference Range Interpretation Comments ESR (test code = See_Comment H [Automated message] 76462-1) The system [employer] generated this result transmitted ref erence range: 0 - 10 m m/HR. The reference r carlota was not used to interpret this result as normal/abnor mal. Lab Interpretation (test Abnormal code = 62031-1) [facility] [id number] 02:59:10 Test Item Value Reference Range Interpretation Comments ESR (test code = See_Comment H [Automated message] 66068-5) The system [employer] generated this result transmitted ref erence range: 0 - 10 m m/HR. The reference r carltoa was not used to interpret this result as normal/abnor mal. Lab Interpretation (test Abnormal code = 29625-5) [facility] (A1C)2022-05-12 02:20:40 Test Item Value Reference Range Interpretation Comments HGB A1C (test code = 6.1 % 4-5.7 H 4548-4) ROBERTO (test code = ROBERTO) Reference RangesNormal: <5.7%Prediabetes: 5.7 - 6.4%Diabetes: > 6.5% Lab Interpretation (test Abnormal code = 82312-1) [facility] (A1C)2022-05-12 02:20:40 Test Item Value Reference Range Interpretation Comments HGB A1C (test code = 6.1 % 4-5.7 H 4548-4) ROBERTO (test code = ROBERTO) Reference RangesNormal: <5.7%Prediabetes: 5.7 - 6.4%Diabetes: > 6.5% Lab Interpretation (test Abnormal code = 32304-1) [facility] (62020)2022-05-11 19:45:12 Test Item Value Reference Range Interpretation Comments NA (test code = 139 mmol/L 135-145 3721203960) K (test code = 4.1 mmol/L 3.5-5 0914554348) CL (test code = 105 mmol/L 98-108 3287568130) CO2 TOTAL (test code 24 mmol/L 23-31 = 6075661100) AGAP (test code = 2-16 3144360125) BUN (test code = 8 mg/dL 7-23 8585178515) GLUCOSE (test code = 84 mg/dL 70-110 3422558586) CREATININE (test code 0.93 mg/dL 0.6-1.25 = 2791869390) TOTAL BILI (test code 0.3 mg/dL 0.1-1.1 = 1259662528) CALCIUM (test code = 9.4 mg/dL 8.6-10.6 6209835875) T PROTEIN (test code 7.3 g/dL 6.3-8.2 = 3638712300) ALBUMIN (test code = 4.0 g/dL 3.5-5 8686568787) ALK PHOS (test code = 85 U/L 34-122 8429882360) ALTv (test code = 14 U/L 5-50 1742-6) AST(SGOT) (test code 21 U/L 13-40 = 3973455227) eGFR (test code = mL/min/1.73m2 4678429279) ROBERTO (test code = ROBERTO) Association of [...] or urine or abnormalities in imaging tests). [facility]. METABOLIC PANEL (12673)2022-05-11 19:45:12 Test Item Value Reference Range Interpretation Comments NA (test code = 139 mmol/L 135-145 3196676837) K (test code = 4.1 mmol/L 3.5-5 6429777699) CL (test code = 105 mmol/L 98-108 0723806764) CO2 TOTAL (test code 24 mmol/L 23-31 = 1604658452) AGAP (test code = 2-16 7288847724) BUN (test code = 8 mg/dL 7-23 5952377583) GLUCOSE (test code = 84 mg/dL 70-110 3392629707) CREATININE (test code 0.93 mg/dL 0.6-1.25 = 2925951200) TOTAL BILI (test code 0.3 mg/dL 0.1-1.1 = 7794827141) CALCIUM (test code = 9.4 mg/dL 8.6-10.6 5174660092) T PROTEIN (test code 7.3 g/dL 6.3-8.2 = 6976028941) ALBUMIN (test code = 4.0 g/dL 3.5-5 6642637620) ALK PHOS (test code = 85 U/L 34-122 1027202392) ALTv (test code = 14 U/L 5-50 2-6) AST(SGOT) (test code 21 U/L 13-40 = 9401823838) eGFR (test code = mL/min/1.73m2 2765779621) ROBERTO (test code = ROBERTO) Association of [...] or urine or abnormalities in imaging tests). [facility] 19:44:31 Test Item Value Reference Range Interpretation Comments LIPASE (test code = 0694862742) 116 U/L 0-220 Lab Interpretation (test code = Normal 38369-1) [facility] 19:44:31 Test Item Value Reference Range Interpretation Comments LIPASE (test code = 5750361083) 116 U/L 0-220 Lab Interpretation (test code = Normal 76682-8) [facility] WITH [id number] 19:33:50 Test Item Value Reference Range Interpretation [...] RDW-SD (test code = 38.9 fL 38.5-51.6 60969-0) RDW-CV (test code = 14.7 % 12.1-15.4 788-0) PLT (test code = See_Comment H [Automated 777-3) message] The sy stem which generated this result transmitted reference range : 150 - 328 10*3/ ?L. The reference r carlota was not used to interpret this result as normal/abnormal . MPV (test code = 10.1 fL 9.8-13 64425-1) NRBC/100 WBC (test See_Comment [Automat ed code = 6558492734) message] The system which generated this result transmitted reference range : 0.0 - 10.0 /100 WBCs. The refer ence range was not u sed to interpret th is result as normal/abnormal . NRBC x10^3 (test code See_Comment [Auto mated = 8226490467) message] The s ystem which generated this result transmitted reference range : 10*3/?L. The reference range was not used to interpret this result as normal/abnormal . GRAN MAT (NEUT) % 50.3 % (test code = 770-8) IMM GRAN % (test code 0.00 % = 6404322782) LYMPH % (test code = 28.7 % 736-9) MONO % (test code = 13.9 % 5905-5) EOS % (test code = 5.3 % 713-8) BASO % (test code = 1.8 % 706-2) GRAN MAT x10^3(ANC) 3.14 10*3/uL 1.99-6.95 (test code = 4366290968) IMM GRAN x10^3 (test 0-0.06 code = 4644407736) LYMPH x10^3 (test code 1.79 10*3/uL 1.09-3.23 = 731-0) MONO x10^3 (test code 0.87 10*3/uL 0.36-1.02 = 742-7) EOS x10^3 (test code = 0.33 10*3/uL 0.06-0.53 711-2) BASO x10^3 (test code 0.11 10*3/uL 0.01-0.09 H = 704-7) Lab Interpretation Abnormal (test code = 26911-0) [facility] WITH [id number] 19:33:50 Test Item Value Reference Range Interpretation [...] RDW-SD (test code = 38.9 fL 38.5-51.6 04273-7) RDW-CV (test code = 14.7 % 12.1-15.4 788-0) PLT (test code = See_Comment H [Automated 777-3) message] The sy stem which generated this result transmitted reference range : 150 - 328 10*3/ ?L. The reference r carlota was not used to interpret this result as normal/abnormal . MPV (test code = 10.1 fL 9.8-13 18381-7) NRBC/100 WBC (test See_Comment [Automat ed code = 0595117496) message] The system which generated this result transmitted reference range : 0.0 - 10.0 /100 WBCs. The refer ence range was not u sed to interpret th is result as normal/abnormal . NRBC x10^3 (test code See_Comment [Auto mated = 9108340069) message] The s ystem which generated this result transmitted reference range : 10*3/?L. The reference range was not used to interpret this result as normal/abnormal . GRAN MAT (NEUT) % 50.3 % (test code = 770-8) IMM GRAN % (test code 0.00 % = 6686509513) LYMPH % (test code = 28.7 % 736-9) MONO % (test code = 13.9 % 5905-5) EOS % (test code = 5.3 % 713-8) BASO % (test code = 1.8 % 706-2) GRAN MAT x10^3(ANC) 3.14 10*3/uL 1.99-6.95 (test code = 0344819502) IMM GRAN x10^3 (test 0-0.06 code = 0061453673) LYMPH x10^3 (test code 1.79 10*3/uL 1.09-3.23 = 731-0) MONO x10^3 (test code 0.87 10*3/uL 0.36-1.02 = 742-7) EOS x10^3 (test code = 0.33 10*3/uL 0.06-0.53 711-2) BASO x10^3 (test code 0.11 10*3/uL 0.01-0.09 H = 704-7) Lab Interpretation Abnormal (test code = 99664-4) [facility] - ONCE [id number] 03:41:38 Test Item Value Reference Range Interpretation Comments ABO & RH (test code O Positive Performe d at [facility] = 20) Laboratory Serv [facility] [place], [place] [address]Toll Free: [phone] A No. [id number] IAT (test code = Negative Performed a t [facility] 1185) Laboratory Serv [facility] [place], [place] [address]Toll Free: [phone] A No. [id number] [facility]OL[facility] (32054)2022-05-10 03:15:48 Test Item Value Reference Range Interpretation Comments NA (test code = 135 mmol/L 135-145 9582472736) K (test code = 4.2 mmol/L 3.5-5 7373601856) CL (test code = 104 mmol/L 98-108 8819510364) CO2 TOTAL (test code = 23 mmol/L 23-31 6079440523) AGAP (test code = 2-16 3555802494) BUN (test code = 9 mg/dL 7-23 1613180133) GLUCOSE (test code = 100 mg/dL 70-110 8132683244) CREATININE (test code = 0.89 mg/dL 0.6-1.25 0772978953) TOTAL BILI (test code = 0.3 mg/dL 0.1-1.1 7714040238) CALCIUM (test code = 8.5 mg/dL 8.6-10.6 L 3176570948) T PROTEIN (test code = 6.6 g/dL 6.3-8.2 2491685055) ALBUMIN (test code = 3.6 g/dL 3.5-5 9176470684) ALK PHOS (test code = 80 U/L 34-122 4316956568) ALTv (test code = 13 U/L 5-50 2-6) AST(SGOT) (test code = 22 U/L 13-40 6299370039) eGFR (test code = mL/min/1.73m2 1422367520) ROBERTO (test code = ROBERTO) Association of [...] tests). Lab Interpretation Abnormal (test code = 75519-5) [facility] 03:15:08 Test Item Value Reference Range Interpretation Comments LIPASE (test code = 5537509101) 105 U/L 0-220 Lab Interpretation (test code = Normal 11441-5) [facility] WITH [id number] 03:02:08 Test Item Value Reference Range Interpretation [...] (test code = 38.0 fL 38.5-51.6 L 25185-0) RDW-CV (test code = 14.9 % 12.1-15.4 788-0) PLT (test code = See_Comment H [Automated 777-3) message] The sy stem which generated this result transmitted reference range : 150 - 328 10*3/ ?L. The reference r carlota was not used to interpret this result as normal/abnormal . MPV (test code = 9.8 fL 9.8-13 17916-3) NRBC/100 WBC (test See_Comment [Automat ed code = 4819278585) message] The system which generated this result transmitted reference range : 0.0 - 10.0 /100 WBCs. The refer ence range was not u sed to interpret th is result as normal/abnormal . NRBC x10^3 (test code See_Comment [Auto mated = 5776435844) message] The s ystem which generated this result transmitted reference range : 10*3/?L. The reference range was not used to interpret this result as normal/abnormal . GRAN MAT (NEUT) % 51.8 % (test code = 770-8) IMM GRAN % (test code 0.40 % = 6487330647) LYMPH % (test code = 29.9 % 736-9) MONO % (test code = 10.2 % 5905-5) EOS % (test code = 5.8 % 713-8) BASO % (test code = 1.9 % 706-2) GRAN MAT x10^3(ANC) 4.17 10*3/uL 1.99-6.95 (test code = 8569974422) IMM GRAN x10^3 (test 0.03 10*3/uL 0-0.06 code = 0304594507) LYMPH x10^3 (test code 2.41 10*3/uL 1.09-3.23 = 731-0) MONO x10^3 (test code 0.82 10*3/uL 0.36-1.02 = 742-7) EOS x10^3 (test code = 0.47 10*3/uL 0.06-0.53 711-2) BASO x10^3 (test code 0.15 10*3/uL 0.01-0.09 H = 704-7) Lab Interpretation Abnormal (test code = 97388-9) [facility] [id number] 14:20:24 Test Item Value Reference Range Interpretation Comments CRP (test code = 1.3 mg/dL See_Comment H [Automated message] 8227530961) The system ic h generated this result transmit eunice reference range : <=0.8. The refe rence range was not u sed to interpret th is result as normal/abnormal . Lab Interpretation (test Abnormal code = 01271-2) [facility] METABOLIC PANEL (NA, K, CL, CO2, GLUCOSE, BUN, CREATININE, CA)2022-04-28 11:21:59 Test Item Value Reference Range Interpretation Comments NA (test code = 134 mmol/L 135-145 L 0220213453) K (test code = 3.9 mmol/L 3.5-5 9267428969) CL (test code = 105 mmol/L 98-108 0857265200) CO2 TOTAL (test code = 26 mmol/L 23-31 2427073904) AGAP (test code = 2-16 6981185534) BUN (test code = 5 mg/dL 7-23 L 6048544613) GLUCOSE (test code = 76 mg/dL 70-110 7400023575) CREATININE (test code = 0.88 mg/dL 0.6-1.25 4161793486) CALCIUM (test code = 8.2 mg/dL 8.6-10.6 L 9731376760) eGFR (test code = mL/min/1.73m2 9978032227) ROBERTO (test code = ROBERTO) Association of [...] tests). Lab Interpretation Abnormal (test code = 65657-1) [facility] WITH [id number] 11:21:23 Test Item Value Reference Range Interpretation [...] RDW-SD (test code = 40.4 fL 38.5-51.6 99090-3) RDW-CV (test code = 15.3 % 12.1-15.4 788-0) PLT (test code = See_Comment H [Automated 777-3) message] The sy stem which generated this result transmitted reference range : 150 - 328 10*3/ ?L. The reference r [place] was not used to interpret this result as normal/abnormal . MPV (test code = 9.8 fL 9.8-13 66185-3) NRBC/100 WBC (test See_Comment [Automat ed code = [id number]) message] The system which generated this result transmitted reference range : 0.0 - 10.0 /100 WBCs. The refer ence range was not u sed to interpret th is result as normal/abnormal . NRBC x10^3 (test code See_Comment [Auto mated = [id number]) message] The s ystem which generated this result transmitted reference range : 10*3/?L. The reference range was not used to interpret this result as normal/abnormal . GRAN MAT (NEUT) % 51.9 % (test code = 770-8) IMM GRAN % (test code 0.50 % = 6390253816) LYMPH % (test code = 25.7 % 736-9) MONO % (test code = 17.4 % 5905-5) EOS % (test code = 3.2 % 713-8) BASO % (test code = 1.3 % 706-2) GRAN MAT x10^3(ANC) 3.09 10*3/uL 1.99-6.95 (test code = 3023355644) IMM GRAN x10^3 (test 0.03 10*3/uL 0-0.06 code = 4055259205) LYMPH x10^3 (test code 1.53 10*3/uL 1.09-3.23 = 731-0) MONO x10^3 (test code 1.04 10*3/uL 0.36-1.02 H = 742-7) EOS x10^3 (test code = 0.19 10*3/uL 0.06-0.53 711-2) BASO x10^3 (test code 0.08 10*3/uL 0.01-0.09 = 704-7) Lab Interpretation Abnormal (test code = 91578-5) [facility] Test Item Value Reference Range Interpretation Comments MAGNESIUM (test code = 2689035299) 1.7 mg/dL 1.7-2.4 Lab Interpretation (test code = Normal 63800-5) [facility] (Lab Only)2022-04-27 17:22:22 Test Item Value Reference Range Interpretation Comments ABO & RH (test code O Positive Performe d at [facility] = 20) Laboratory Serv [facility]ly [facility] [address] [place] [phone] Free: [phone] A No. [id number] [facility] - ONCE [id number] 16:14:13 Test Item Value Reference Range Interpretation Comments ABO & RH (test code O Positive Performe d at [facility] = 20) Laboratory Serv [facility] [address] [place], [place] [address]Toll Free: [phone] A No. [id number] IAT (test code = Negative Performed a t [facility] 1185) Laboratory Serv [facility] [address] [place], [place] [id number] Free: [phone] A No. [id number] [facility] [id number] 16:10:24 Test Item Value Reference Range Interpretation Comments APTT Patient (test See_Comment [Automat ed code = 3173-2) message] The system which generated this result transmitted reference range : 23 - 38 Seconds . The reference range was not used to interpr et this result as normal/abnormal . ROBERTO (test code = ROBERTO) The [facility] patient population mean normal value for aPTT is 30 seconds. Lab Interpretation Normal (test code = 58299-9) [facility] / [id number] 16:08:28 Test Item Value Reference Range Interpretation [...] tions. Lab Interpretation (test Normal code = 81286-9) [facility] [id number] 15:53:25 Test Item Value Reference Interpretation Comments Range TROPONIN I (test See_Comment [Automated code = 6578391818) message] The system which generated this result [...] biotin. Lab Interpretation Normal (test code = 05962-8) [facility]. METABOLIC PANEL (08169)2022-04-27 15:42:03 Test Item Value Reference Range Interpretation Comments NA (test code = 139 mmol/L 135-145 0338773840) K (test code = 4.1 mmol/L 3.5-5 6824909179) CL (test code = 105 mmol/L 98-108 5455479383) CO2 TOTAL (test code = 27 mmol/L 23-31 4993821100) AGAP (test code = 2-16 0000631649) BUN (test code = 6 mg/dL 7-23 L 5057623000) GLUCOSE (test code = 96 mg/dL 70-110 3120913416) CREATININE (test code = 0.87 mg/dL 0.6-1.25 2558075243) TOTAL BILI (test code = 0.3 mg/dL 0.1-1.6 1279181439) CALCIUM (test code = 9.1 mg/dL 8.6-10.6 3949795466) T PROTEIN (test code = 6.9 g/dL 6.3-8.2 8364723486) ALBUMIN (test code = 3.6 g/dL 3.5-5 4025306857) ALK PHOS (test code = 89 U/L 34-122 9207559863) ALTv (test code = 12 U/L 5-50 1742-6) AST(SGOT) (test code = 17 U/L 13-40 9570088811) eGFR (test code = mL/min/1.73m2 2982948858) ROBERTO (test code = ROBERTO) Association of [...] tests). Lab Interpretation Abnormal (test code = 78361-7) [facility] 15:42:03 Test Item Value Reference Range Interpretation Comments MAGNESIUM (test code = 4417501435) 1.9 mg/dL 1.7-2.4 Lab Interpretation (test code = Normal 04489-5) [facility] 15:42:03 Test Item Value Reference Range Interpretation Comments LIPASE (test code = 8393648313) 115 U/L 0-220 Lab Interpretation (test code = Normal 10757-9) [facility] WITH [id number] 15:32:42 Test Item Value Reference Range Interpretation Comments WBC (test code = See_Comment [Automated 2690-2) message] The sy stem which generated this [...] RDW-SD (test code = 39.8 fL 38.5-51.6 87390-0) RDW-CV (test code = 15.1 % 12.1-15.4 788-0) PLT (test code = See_Comment H [Automated 777-3) message] The sy stem which generated this result transmitted reference range : 150 - 328 10*3/ ?L. The reference r carlota was not used to interpret this result as normal/abnormal . MPV (test code = 9.5 fL 9.8-13 L 10414-1) NRBC/100 WBC (test See_Comment [Automat ed code = 2193646874) message] The system which generated this result transmitted reference range : 0.0 - 10.0 /100 WBCs. The refer ence range was not u sed to interpret th is result as normal/abnormal . NRBC x10^3 (test code See_Comment [Auto mated = 2442888718) message] The s ystem which generated this result transmitted reference range : 10*3/?L. The reference range was not used to interpret this result as normal/abnormal . GRAN MAT (NEUT) % 51.9 % (test code = 770-8) IMM GRAN % (test code 0.30 % = 9101596719) LYMPH % (test code = 31.1 % 736-9) MONO % (test code = 13.0 % 5905-5) EOS % (test code = 2.5 % 713-8) BASO % (test code = 1.2 % 706-2) GRAN MAT x10^3(ANC) 3.35 10*3/uL 1.99-6.95 (test code = 7158229943) IMM GRAN x10^3 (test 0-0.06 code = 4670724606) LYMPH x10^3 (test code 2.01 10*3/uL 1.09-3.23 = 731-0) MONO x10^3 (test code 0.84 10*3/uL 0.36-1.02 = 742-7) EOS x10^3 (test code = 0.16 10*3/uL 0.06-0.53 711-2) BASO x10^3 (test code 0.08 10*3/uL 0.01-0.09 = 704-7) Lab Interpretation Abnormal (test code = 74640-5) [facility]- [facility]R CHEST 1 [id number] 08:28:00Patient Name: ALEX BURROUGHS Unit No: [id number] EXAMS: CPT: [id number] XR CHEST 1 V 84403 History: Chest pain CHEST 1 VIEW FINDINGS: [...] BATCH NO: N/A Name: ALEX BURROUGHS [facility] Phys: Sky Starks MD [address] : 1975 Age: 44 Sex: [place] [address] Loc: N.ERS Exam Date: 05/23/2019 Status: REG [facility]: FAX: PAGE 1 Signed [id number] 07:18:00 Test Item Value Reference Range Interpretation Comments TROPONIN-I (test code = TROPI) <0.020 ng/mL 0.000-0.034 N BASIC METABOLIC [id number] 07:14:00 Test Item Value Reference Range Interpretation [...] mg/dL 8.5-10.5 N = CA) CBC W/AUTO [id number] 07:10:00 Test Item Value Reference Range Interpretation [...]
[2022-07-27 23:48] LABS: Hematocrit 34.5 % (39.6-49.0); Lymphocytes % 23.5 % (15.3-44.8); MCV 69.1 fL (80-100); MPV 8.3 fL (7.6-11.3); RBC Red Blood Cell Count 4.99 M/uL (4.33-5.43)
[2022-07-27] MEDS ORDERED: NA CHLORIDE 0.9% 1,000 ML ONE (23:55)
[2022-07-27] MEDS ORDERED: METHYLPREDNISOLONE 125 MG INJ ONE (23:55)
[2022-07-27] MEDS ORDERED: ONDANSETRON 4 MG/2 ML VIAL ONE (23:55)
[2022-07-27] MEDS ORDERED: MORPHINE 4 MG/ML SYR ONE (23:55)
[2022-07-28 00:06] LABS: Albumin 3.3 g/dL (3.4-5.0); Bilirubin Total 0.3 mg/dL (0.2-1.0); Potassium 3.4 mmol/L (3.5-5.1)
[2022-07-28 00:28] LABS: Urine Blood Negative (Negative); Urine Glucose Negative (Negative); Urine Protein Negative (Negative); Urine Specific Gravity >=1.030 (1.005-1.030); Urine pH 5.5 (5.0-7.0)
--- NOTE | 2022-07-28 00:52 | EDPHYS ---
Physician Documentation [facility] Name: Wicho Weeks Age: 47 yrs Sex: Male : 1975 Arrival Date: 07/27/2022 Time: 21:26 Bed 7 Private MD: ED Physician Cecelia Fisher HPI: 07/28 00:46 This 47 yrs old Male presents to ER via Ambulatory with complaints of Rectal sd2 Pain, Abdominal Pain. 00:46 47 yo M presents with CC of abdominal pain and rectal pain. States hx of ulcerative sd2 colitis not currently on treatment waiting to get in to be seen by a GI physician and symptoms consistent with colitis flares in the past. Reports he has been on steroids and ran out of them which normally leads to him having recurrence of his symptoms with bloody diarrhea and abdominal pain. Denies fevers, vomiting. Endorses nausea. Reports prior surgery to rectal area and that the area has become painful with the multiple bouts of diarrhea. . Historical: - PMHx: 07/27 21:34 Chronic Abdominal Pain; Colitis; GI Bleed; tw5 - PSHx: 21:34 Rectal abscess removal; tw5 - Immunization history:: Flu vaccine is not up to date. - Social history:: Smoking status: Reported history of juuling and/or vaping. ROS: 07/28 00:46 Constitutional: Negative for fever, chills, and weight loss, Eyes: Negative for injury, sd2 pain, redness, and discharge, Cardiovascular: Negative for chest pain, palpitations, and edema, Respiratory: Negative for shortness of breath, cough, wheezing. MS/Extremity: Negative for injury and deformity, Skin: Negative for injury, rash, and discoloration, Neuro: Negative for headache, numbness and tingling. Abdomen/GI: Positive for abdominal pain, nausea, diarrhea, rectal bleeding, Negative for vomiting. Exam: 00:46 Constitutional: This is a well developed, well nourished patient who is awake, alert, sd2 and in no acute distress. Head/Face: Normocephalic, atraumatic. Eyes: EOMI, normal conjunctiva bilaterally Chest/axilla: Normal chest wall appearance and motion. Nontender with no deformity. Cardiovascular: Regular rate and rhythm with a normal S1 and S2. No gallops, murmurs, or rubs. 2+ distal pulses. Respiratory: Lungs have equal breath sounds bilaterally, clear to auscultation and percussion. No rales, rhonchi or wheezes noted. No increased work of breathing, no retractions or nasal flaring. Abdomen/GI: Soft, mild generalized tenderness, with normal bowel sounds. No guarding or rebound. Skin: Warm, dry with normal turgor. Normal color with no rashes, no lesions, and no evidence of cellulitis. MS/ Extremity: Pulses equal, no cyanosis. Neurovascular intact. Full, normal range of motion. Ambulatory without difficulty. Psych: Awake, alert, with orientation to person, place and time. Behavior, mood, and affect are within normal limits. 00:46 : Rectal exam: is normal, no gross blood is appreciated, no hemorrhoids, no masses sd2 palpable, normal rectal tone, Well-healed surgical wound appreciated with no surrounding signs of infection, erythema, warmth or induration. Vital Signs: 07/27 21:31 BP 145 / 107; Pulse 95; Resp 18; Temp 98.6; Pulse Ox 100% on R/A; Weight 90.72 kg; tw5 Height 5 ft. 9 in. (175.26 cm); Pain 10/10; 07/28 00:05 BP 124 / 81; Pulse 85; Resp 16; Pulse Ox 99% on R/A; kd3 07/27 21:31 Body Mass Index 29.53 (90.72 kg, 175.26 cm) tw5 MDM: 07/27 22:07 Patient medically screened. sd2 07/28 00:46 Differential diagnosis: Gastritis, cholecystitis, pancreatitis, SBO, diverticulitis, sd2 kidney stone, appendicitis, UTI, dehydration, electrolyte abnormality among others. Data reviewed: vital signs, nurses notes, lab test result(s). Counseling: I had a detailed discussion with the patient and/or guardian regarding: the historical points, exam findings, and any diagnostic results supporting the discharge/admit diagnosis, lab results, the need for outpatient follow up, to return to the emergency department if symptoms worsen or persist or if there are any questions or concerns that arise at home. Medical screen evaluation completed. EMTALA emergency medical condition absent. ED course: Labs reviewed with no significant acute abnormalities. OVerall benign abdominal exam and consistent with prior colitis flares with stable VS. Pain well controlled and pt to be restarted on steroids. He was counseled on manager long term care side effects of steroids and why these should only be temporary and the need to see GI to get on a consistent less harmful regimen for the long-term. He is comfortable with plan for discharge and outpatient follow up and verbalizes understanding of strict return precautions. . 07/27 22:55 Order name: CBC with Diff; Complete Time: 00:58 sd2 07/27 22:55 Order name: CMP; Complete Time: 00:10 sd2 07/27 22:55 Order name: Lipase; Complete Time: 00:10 sd2 07/27 22:55 Order name: Lactate w/ 2H reflex if indic.; Complete Time: 00:10 sd2 07/27 22:55 Order name: Urine Microscopic Only; Complete Time: 00:59 sd2 07/27 23:54 Order name: CBC Smear Scan; Complete Time: 00:58 EDMS 07/27 22:55 Order name: Urine Dipstick-Ancillary (obtain specimen); Complete Time: 00:26 sd2 07/28 00:28 Order name: Urine Dipstick-Ancillary; Complete Time: 00:34 EDMS Administered Medications: 00:04 Drug: morphine 4 mg Route: IVP; Infused Over: 4 mins; Site: left antecubital; kd3 00:59 Follow up: Response: No adverse reaction; Pain is decreased kd3 00:04 Drug: Zofran (Ondansetron) 4 mg Route: IVP; Site: left antecubital; kd3 00:59 Follow up: Response: No adverse reaction; Nausea is decreased kd3 00:04 Drug: NS 0.9% 1000 ml Route: IV; Rate: 1 bolus; Site: left antecubital; kd3 00:59 Follow up: IV Status: Completed infusion; IV Intake: 1000ml kd3 00:04 Drug: SOLU-Medrol (methylPrednisoLONE) 125 mg Route: IVP; Site: left antecubital; kd3 00:59 Follow up: Response: No adverse reaction kd3 Disposition Summary: 07/28/22 00:51 Discharge Ordered Location: Home sd2 Problem: an acute exacerbation sd2 Symptoms: have improved sd2 Condition: Stable sd2 Diagnosis - Abdominal pain, Generalized sd2 - Bloody diarrhea sd2 - Ulcerative colitis flare sd2 - Rectal pain sd2 Followup: sd2 - With: Private Physician - When: 2 - 3 days - Reason: Recheck today's complaints, Continuance of care, Re-evaluation by your physician Followup: sd2 - With: Thang Herrmann MD - When: 5 - 6 days - Reason: Recheck today's complaints, Continuance of care Discharge Instructions: - Discharge Summary Sheet sd2 - Ulcerative Colitis, Adult sd2 Forms: - Medication Reconciliation Form sd2 - Thank You Letter sd2 - Antibiotic Education sd2 - Prescription Opioid Use sd2 Prescriptions: - Medrol (Guillermo) 4 mg Oral Tablets, Dose Pack - take 1 tablet by ORAL route as directed - follow package instructions; 1 sd2 packet; Refills: 0, Product Selection Permitted Signatures: Dispatcher [employer] Reny Hernandez tw5 Kimberly Miller RN RN kd3 Cecelia Fisher MD MD sd2
--- NOTE | 2022-07-28 00:52 | ER ---
Nurse's Notes [facility] Name: Wicho Weeks Age: 47 yrs Sex: Male : 1975 Arrival Date: 07/27/2022 Time: 21:26 Bed 7 Private MD: Diagnosis: Abdominal pain, Generalized;Bloody diarrhea;Ulcerative colitis flare;Rectal pain Presentation: 07/27 21:31 Chief complaint: Patient states: "I have diarrhea. I have three surgeries on my butt tw5 hole last year, I dont know if it is infected. My stomach hurts.". Coronavirus screen: Vaccine status: Patient reports being unvaccinated. Ebola Screen: Patient negative for fever greater than or equal to 101.5 degrees Fahrenheit, and additional compatible Ebola Virus Disease symptoms Patient denies exposure to infectious person. Patient denies travel to an Ebola-affected area in the 21 days before illness onset. Initial Sepsis Screen: Does the patient meet any 2 criteria? No. Patient's initial sepsis screen is negative. Does the patient have a suspected source of infection? No. Patient's initial sepsis screen is negative. Risk Assessment: Do you want to hurt yourself or someone else? Patient reports no desire to harm self or others. Onset of symptoms was July 25, 2022 at 12:00. 21:31 Method Of Arrival: Ambulatory tw5 21:31 Acuity: DRE 3 tw5 Triage Assessment: 21:34 General: Appears in no apparent distress. Behavior is calm, cooperative, appropriate tw5 for age. Pain: Complains of pain in gluteal cleft and abdomen Pain currently is 10 out of 10 on a pain scale. GI: Reports diarrhea. Historical: - PMHx: 21:34 Chronic Abdominal Pain; Colitis; GI Bleed; tw5 - PSHx: 21:34 Rectal abscess removal; tw5 - Immunization history:: Flu vaccine is not up to date. - Social history:: Smoking status: Reported history of juuling and/or vaping. Screenin/22 00:07 [facility] ED Fall Risk Assessment (Adult) History of falling in the last 3 months, kd3 including since admission No falls in past 3 months (0 pts) Confusion or Disorientation No (0 pts) Intoxicated or Sedated No (0 pts) Impaired Gait No (0 pts) Mobility Assist Device Used No (0 pt) Altered Elimination No (0 pt) Score/Fall Risk Level 0 - 2 = Low Risk Oriented to surroundings. Abuse screen: Denies threats or abuse. Denies injuries from another. Nutritional screening: No deficits noted. Tuberculosis screening: No symptoms or risk factors identified. Assessment: 00:06 General: Appears uncomfortable, Behavior is calm, cooperative. Pain: Complains of pain kd3 in abdomen and buttocks and gluteal cleft. Neuro: Level of Consciousness is awake, alert, obeys commands, Oriented to person, place, time, situation. Respiratory: Airway is patent Trachea midline Respiratory effort is even, unlabored, Respiratory pattern is regular, symmetrical. 00:08 GI: Bowel sounds present X 4 quads. Abd is soft X 4 quads. kd3 00:58 Reassessment: No changes from previously documented assessment. Patient and/or family kd3 updated on plan of care and expected duration. Pain level reassessed. Patient is alert, oriented x 3, equal unlabored respirations, skin warm/dry/pink. Patient denies pain at this time. Patient states feeling better. Patient states symptoms have improved. Vital Signs: 07/27 21:31 BP 145 / 107; Pulse 95; Resp 18; Temp 98.6; Pulse Ox 100% on R/A; Weight 90.72 kg; tw5 Height 5 ft. 9 in. (175.26 cm); Pain 10/10; 07/28 00:05 BP 124 / 81; Pulse 85; Resp 16; Pulse Ox 99% on R/A; kd3 07/27 21:31 Body Mass Index 29.53 (90.72 kg, 175.26 cm) tw5 ED Course: 07/27 21:26 Patient arrived in ED. ja2 21:34 Triage completed. tw5 21:34 Arm band placed on. tw5 22:07 Cecelia Fisher MD is Attending Physician. sd2 22:37 Giuliano Palomo, RODOLFO is Primary Nurse. as6 23:51 CBC with Diff Sent. kd3 23:51 CMP Sent. kd3 23:51 Lipase Sent. kd3 23:51 Lactate w/ 2H reflex if indic. Sent. kd3 23:51 No provider procedures requiring assistance completed. Inserted saline lock: 20 gauge kd3 in left antecubital area, using aseptic technique. Blood collected. 07/28 00:07 Patient has correct armband on for positive identification. kd3 00:51 Thang Herrmann MD is Referral Physician. sd2 00:58 IV discontinued, intact, bleeding controlled, No redness/swelling at site. Pressure kd3 dressing applied. Administered Medications: 00:04 Drug: morphine 4 mg Route: IVP; Infused Over: 4 mins; Site: left antecubital; kd3 00:59 Follow up: Response: No adverse reaction; Pain is decreased kd3 00:04 Drug: Zofran (Ondansetron) 4 mg Route: IVP; Site: left antecubital; kd3 00:59 Follow up: Response: No adverse reaction; Nausea is decreased kd3 00:04 Drug: NS 0.9% 1000 ml Route: IV; Rate: 1 bolus; Site: left antecubital; kd3 00:59 Follow up: IV Status: Completed infusion; IV Intake: 1000ml kd3 00:04 Drug: SOLU-Medrol (methylPrednisoLONE) 125 mg Route: IVP; Site: left antecubital; kd3 00:59 Follow up: Response: No adverse reaction kd3 Medication: 00:08 VIS not applicable for this client. kd3 Intake: 00:59 IV: 1000ml; Total: 1000ml. kd3 Outcome: 00:51 Discharge ordered by . sd2 00:58 Discharged to home ambulatory. kd3 00:58 Condition: stable 00:58 Condition: stable 00:58 Discharge instructions given to patient, Instructed on discharge instructions, follow up and referral plans. medication usage, Demonstrated understanding of instructions, follow-up care, medications, Prescriptions given X 1. 01:00 Patient left the ED. kd3 Signatures: Yanet [place] Tiffany tw5 Giuliano Palomo RN RN as6 Kimberly Miller RN RN kd3 Cecelia Fisher MD MD sd2
[2022-07-28 00:54] LABS: Anisocytosis 1+; Blood Morphology Comment NOTED (NOT SEEN); Platelet Estimate ADEQ; White Blood Cell Scan OK (OK)
[2022-07-28 00:59] LABS: Urine Bacteria None Seen /HPF (<20); Urine Mucus Slight /HPF (None Seen); Urine RBC None Seen /HPF (None Seen)
[2022-07-28 01:36] VITALS: TEMP 98.6
[2022-07-28 01:38] VITALS: BP 124/81; O2SAT 99
== END 2022-07-28 01:00 | disposition home or self-care (01) ==
LOC: ER 21:23
DX: K51.911 Ulcerative colitis, unspecified with rectal bleeding (principal)
CPT/HCPCS: 36415; 80053; 81003; 81015; 83605; 83690; 85025; 96361; 96374; 96375; 99284; J2405; J2930; J7030

== ENCOUNTER 2022-08-08 20:32 | Emergency (ER) | payer SELFPAY ==
--- OUTSIDE RECORDS SUMMARY | 2022-08-08 20:38 | XMS REPORT | Continuity of Care Document ---
:1975 Author Organization [facility] t Address [address] [place] [address] Care Team Providers Name Role Phone Dean Higginbotham MD Primary Care Physician [phone] ANA PEACOCK Attending Clinician Unavailable JUSTIN BAPTISTE Attending Clinician Unavailable Justin Baptitse MD Attending Clinician Doctor Unassigned, [place] Attending Clinician Unavailable RAYRAY GAMEZ Attending Clinician [...] Univers stools stools 0-05 ity of 00:00: [address] Obesity Obesity Disease Active 2021-08 Univers (BMI (BMI 0-05 ity of 30-39.9) 30-39.9) 00:00: [address] Proctocoli Proctocoli Disease Active U nivers tis tis 9-21 ity of 00:00: [address] Allergies, Adverse Reactions, Alerts Allergy Allergy Status Severity Reaction(s) Onset Inactive Treating Comm ents Source Name Type Date Date Clinician No Known DA Active U 2018-08 [facility] Allergie 0-17 [place] [facility] 00:00: Health 00 are [facility] st NO KNOWN Drug Active Univers ALLERGIE Class ity of S [facility] Social History Social Habit Start Date Stop Date Quantity Comments Source History of Passive smoker University of tobacco use [facility] Exposure to 2022-06-22 2022-07-02 Not sure [facility] SARS-CoV-2 00:00:00 21:48:00 [facility] (event) [place] Alcohol intake 2022-07-02 2022-07-02 Ex-drinker [facility] 00:00:00 00:00:00 (finding) [facility] Education 2022-05-11 2022-05-11 21 [facility] 00:00:00 00:00:00 [facility] Tobacco use and 2022-04-27 2022-04-27 Smokeless tobacco Un iversity of exposure 00:00:00 00:00:00 non-user [facility] Sex Assigned At [birth year] Universit y of 00:00:00 00:00:00 [facility] Smoking Status Start Date Stop Date Source Ex-smoker 2022-04-27 00:00:00 2022-04-27 00:00:00 [facility] [place] [facility] Medications Ordered Filled Start Stop [...] at 2230, 1 mL predniSONE 2021-08 Yes [id number] Take 1 po Univers 20 mg 09-01 tid x 2 ity of tablet 00:00: days, then [place] 00 take 1 po Medical bid x 3 Branch days, then take 1 po daily x 5 days. famotidine 2021-08- Yes [id number] 20mg Take 1 Univers (PEPCID) 20 09-01 12-12 tablet by it y of mg tablet 00:00: 05:59 mouth in [place] 00 :00 the Medical morning Branch and 1 tablet in the evening. Do all this for 15 days. predniSONE 2021-08- No [id number] Take 1 po Univers 20 mg 09-01 tid x 2 ity of tablet 00:00: 00:00 [place] then [place] 1 po bid x Medical 3 days, Branch then 1 po daily x 5 days famotidine 2021-08- No [id number] 20mg Take 1 Univers (PEPCID) 20 09-01 tablet by it y of mg tablet 00:00: 00:00 mouth in [place] 00 :00 the Medical morning Branch and 1 tablet in the evening. Do all this for 15 days. predniSONE 2021-08- Yes [id number] Take 3 Univers 5 mg tablet 08-22-08 tablets by i ty of 00:00: 05:59 mouth [place] 00 :00 daily for Medical 7 days, Branch THEN 2 tablets daily for 7 days, THEN 1 tablet daily for 7 days. predniSONE 2021-08- Yes [id number] Take 3 Univers 5 mg tablet 08-22-08 tablets by i ty of 00:00: 05:59 mouth [place] 00 :00 daily for Medical 7 days, Branch THEN 2 tablets daily for 7 days, THEN 1 tablet daily for 7 days. predniSONE 2021-08- Yes [id number] Take 3 Univers 5 mg tablet 08-22-08 tablets by i ty of 00:00: 05:59 mouth [place] 00 :00 daily for Medical 7 days, Branch THEN 2 tablets daily for 7 days, THEN 1 tablet daily for 7 days. lactobacill 2021-08- Yes [id number] .5mg Take 1 Univers us 0-12 02-10 tablet by ity of acidophilus 00:00: 05:59 mouth in [place] 00 :00 the Medical morning Branch for 120 days. lactobacill 2021-08- Yes [id number] .5mg Take 1 Univers us 0-12 02-10 tablet by ity of acidophilus 00:00: 05:59 mouth in [place] 00 :00 the Medical morning Branch for 120 days. lactobacill 2021-08- Yes [id number] .5mg Take 1 Univers us 0-12 02-10 tablet by ity of acidophilus 00:00: 05:59 mouth in [place] 00 :00 the Medical morning Branch for 120 days. predniSONE 2021-08- Yes [id number] Take 6 Univers 10 mg 0-12 11-17 [...] it y of succ 14:30: s, Q8H, [place] (SOLU-MEDRO 00 First dose Me dical L (PF)) on [facility] Branch injection 05/14/22 at 20 mg 0930, Until Discontinu ed, Routine methylPREDN 2021-08- No 20mg 20 mg, Uni vers ISolone sod 0-08 10-11 Intravenou i ty of succ 14:30: 13:41 s, Q8H, [place] (SOLU-MEDRO 00 :53 First dose Me dical L (PF)) on [facility] Branch injection 05/14/22 at 20 mg 0930, Until Discontinu ed, Routine acetaminoph 2021-08 Yes 650mg 650 mg, Un kar en 0-07 Oral, ity of (TYLENOL) 23:05: Q6HPRN, [place] tablet 650 22 Starting Medic al mg on Mon Branch 05/13/22 at 1805, Until Discontinu ed, Routine, Pain (scale 1-3), Temp > 38.5 C acetaminoph 2021-08 Yes 650mg 650 mg, Un kar en 0-07 Oral, ity of (TYLENOL) 23:05: Q6HPRN, [place] tablet 650 22 Starting Medic al mg [...] 0-07 Units, ity of (vitamin 14:00: Oral, [place] D3) tablet 00 DAILY, Medical 2,000 Units First dose Br anch on Mon05/13/22 at 0900, Until Discontinu ed, Routine cholecalcif 2021-08 Yes 2000U 2,000 Univ ers niraj 0-07 Units, ity of (vitamin 14:00: Oral, [place] D3) tablet 00 DAILY, Medical 2,000 Units First dose Br anch on Mon05/13/22 at 0900, Until Discontinu ed, Routine ondansetron 2021-08 Yes 4mg 4 mg, Slow Univers (ZOFRAN 0-06 IV Push, ity of (PF)) 22:23: Q6HPRN, [place] injection 4 56 Nausea and Me dical [...] on Mon Medical packet 1 05/11/22 at [facility] Packet 2145, Until Discontinu ed, Routine cholestyram 2021-08 Yes 1{packe 1 Packet, Univers ine 0-06 t} Oral, BID, ity of (QUESTRAN) 02:45: First dose [place] 4 gram 00 on Mon Medical packet 1 05/11/22 at [facility] Packet 2145, Until Discontinu ed, Routine [...] Mon05/11/22 at 1430, STAT iopamidol 2021-08 No [id number] 75mL 75 mL, Univers (ISOVUE 0-04 10-04 [...] the Medical tablet morning. Branch mesalamine 2021-08- No [id number] 1.2g Take 1 Univers 1.2 gram EC 0-03 10-18 tablet by it y of tablet 00:00: 04:59 mouth [place] 00 :00 daily with Medical breakfast Branch for 14 days. mesalamine 2021-08 No [id number] 1.2g Take 1 Univers 1.2 gram EC 0-03 -18 tablet by it y of tablet 00:00: 04:59 mouth [place] 00 :00 daily with Medical breakfast Branch for 14 days. mesalamine 2021-08- No [id number] 1.2g Take 1 Univers 1.2 gram EC [...] at Branch 1999, Until Discontinu ed, Routine
membership administrator approving Restricted medication : DARRYN LANDA acetaminoph Yes [id number] 1{tbl} Take 1 Un kar en-codeine 9-23 tablet by ity of (TYLENOL-CO 00:00: mouth [place] DEINE #3) 00 every 6 Medical 300-30 mg (six) Branch tablet hours as needed for Pain (scale 7-10). Indication s: acute pain mesalamine Yes [id number] 1.2g Take 1 U nivers 1.2 gram EC 9-23 tablet by ity of tablet 00:00: mouth [place] 00 daily with Medical breakfast. Branch vancomycin Yes [id number] 125mg Take 1 Univers 125 mg 9-23 capsule by ity of capsule 00:00: mouth 4 00 (four) Medical times Branch daily. mesalamine Yes [id number] 1.2g Take 1 U nivers 1.2 gram EC 9-23 tablet by ity of tablet 00:00: mouth [place] 00 daily with Medical breakfast. Branch vancomycin Yes [id number] 125mg Take 1 Univers 125 mg 9-23 capsule by ity of capsule 00:00: mouth 4 [place] 00 (four) Medical times Branch daily. mesalamine Yes [id number] 1.2g Take 1 U nivers 1.2 gram EC 9-23 tablet by ity of tablet 00:00: mouth [place] 00 daily with Medical breakfast. Branch vancomycin Yes [id number] 125mg Take 1 Univers 125 mg 9-23 [...] 7-10). Indication s: acute pain mesalamine Yes [id number] 1.2g Take 1 U nivers 1.2 gram EC 9-23 tablet by ity of tablet 00:00: mouth [place] 00 daily with Medical breakfast. Branch vancomycin Yes [id number] 125mg Take 1 Univers 125 mg 9-23 capsule by ity of capsule 00:00: mouth 4 00 (four) Medical times Branch daily. mesalamine 2021- No [id number] 1.2g Take 1 Univers 1.2 gram EC 9-23 10-11 tablet by it y of tablet 00:00: 00:00 mouth [place] 00 :00 daily with Medical breakfast. Branch vancomycin 2021- No [id number] 125mg Take 1 Univers 125 mg 9-23 [...] Indication s: acute pain vancomycin 2021- No [id number] 125mg Take 1 Univers 125 mg 04-29 capsule by ity of capsule 00:00: 00:00 mouth 4 [place] 00 :00 (four) Medical times Branch daily for 9 days. mesalamine 2021- No [id number] 1.2g Take 1 Univers 1.2 gram EC [...] n of therapy: 5 days vancomycin 2021- No 125mg 125 mg, Un kar (FIRVANQ) 04-28 Oral, QID, ity of 50 mg/mL 21:00: 20:59 40 doses, [place] oral 00 :00 First dose Medical solution on Yue Branch 125 mg 04/28/22 at 1600, Last dose on 05/08/22 at 1200, Routine
Reason for Anti-Infec tive: Documented Infection< br>Documen eunice Infection Site: Abdominal< br>Duratio n of Therapy: 7 days morpHINE (2 2021- No 2mg 2 mg, Slow Univers mg/mL) 04-28 [...] 04-27 Oral, ity of (TYLENOL 23:57: Q4HPRN, [place] #3) 300-30 43 Starting Medic al mg [...] ity of 1,000 mg in 20:00: 19:48 Peculiar, [place] NaCl 0.9% 00 :56 Q24H ABX, [...] Routine, Pain (scale 1-3) iopamidol 2021- No [id number] 70mL 70 mL, Univers (ISOVUE 04-27 Intravenou ity o f 370-500 mL) 18:15: 18:15 s, ONCE, 1 [place] injection 00 :00 dose, On Medica l 70 mL [facility] Branch 04/27/22 at 1315, Routine hydrOXYzine 2021- No 25mg 25 mg, Uni vers (ATARAX) 04-27 Oral, ity of tablet 25 17:30: 17:29 ONCE, 1 [place] mg 00 :00 dose, On Medical [facility] Branch 04/27/22 at 1230, JANNA ondansetron 2021- No 4mg 4 mg, Slow Univers (ZOFRAN 04-27 IV Push, ity of (PF)) 16:15: 16:13 ONCE, 1 [place] injection 4 00 :00 dose, On Medi miranda mg [facility] Branch 04/27/22 at 1115, JANNA morpHINE (4 2021- No 4mg 4 mg, Slow Univers mg/mL) 04-27 IV Push, ity of injection 4 16:15: 16:13 ONCE, 1 [place] mg 00 :00 dose, On Medical [facility] Branch 04/27/22 at 1115, STAT Vital Signs [...] 95 /min University of Arterial blood by [place] [facility] Scam miranda Pulse oximetry Branch Body temperature 2022-07-03 03:50:00 37.39 Breann Univ ers[facility] [place] [facility] Body height 2022-07-03 03:50:00 175.3 cm [facility] [place] [facility] Body weight 2022-07-03 03:50:00 90.719 kg [facility] [place] [facility] BMI 2022-07-03 03:50:00 29.53 kg/m2 [facility] [place] [facility] Systolic blood 2022-05-17 16:43:00 128 mm[Hg] Univer sity of pressure [place] [facility] Diastolic blood 2022-05-17 16:43:00 72 mm[Hg] Unive rsity of pressure [place] [facility] Heart rate 2022-05-17 16:43:00 58 /min [facility] [place] [facility] Body temperature 2022-05-17 16:43:00 35.83 Breann Univ [facility] [place] [facility] Respiratory rate 2022-05-17 16:43:00 18 /min Univ [facility] [place] [facility] Oxygen saturation in 2022-05-17 16:43:00 100 /min University of Arterial blood by [place] V[facility] Scam miranda Pulse oximetry Branch Body weight 2022-05-17 [...] 2022-05-13 14:58:00 37.67 Breann Univ [facility] [place] [facility] Respiratory rate 2022-05-13 14:58:00 18 /min Univ [facility] [place] [facility] Oxygen saturation in 2022-05-13 14:58:00 99 /min University of Arterial blood by [facility] Pulse oximetry Branch Body weight 2022-05-13 09:27:00 90.992 kg [facility] [place] [facility] BMI 2022-05-13 09:27:00 28.32 kg/m2 [facility] [place] [facility] Body height 2022-05-11 22:16:00 175.3 cm [facility] [place] [facility] Heart rate 2022-05-10 04:12:00 73 /min [facility] [place] [facility] Body temperature 2022-05-10 04:12:00 36.5 Breann Univ [facility] [place] [facility] Oxygen saturation in 2022-05-10 04:12:00 97 /min University of Arterial blood by [facility] Pulse oximetry Branch Systolic blood 2022-05-10 04:00:00 133 mm[Hg] Univer sity of pressure [place] [facility] Diastolic blood 2022-05-10 04:00:00 79 mm[Hg] Unive rsity of pressure [place] [facility] Respiratory rate 2022-05-10 04:00:00 19 /min Univ [facility] [place] [facility] Body height 2022-05-10 01:42:00 175.3 cm [facility] [place] [facility] Body weight 2022-05-10 01:42:00 86.183 kg [facility] [place] [facility] BMI 2022-05-10 01:42:00 28.06 kg/m2 [facility] [place] [facility] Systolic blood 2022-04-29 17:14:00 132 mm[Hg] Univer sity of pressure [place] [facility] Diastolic blood 2022-04-29 17:14:00 98 mm[Hg] Unive rsity of pressure [place] [facility] Heart rate 2022-04-29 17:14:00 90 /min [facility] [place] [facility] Body temperature 2022-04-29 17:14:00 36.28 Breann Univ [facility] [place] [facility] Respiratory rate 2022-04-29 17:14:00 18 /min Univ [facility] [place] [facility] Oxygen saturation in 2022-04-29 17:14:00 100 /min [facility] Arterial blood by [facility] Pulse oximetry [place] Body weight 2022-04-28 09:36:00 87.998 kg [facility] BMI 2022-04-28 09:36:00 28.65 kg/m2 [facility] Body height 2022-04-27 21:57:00 175.3 cm [facility] Procedures Procedure Date / Time Performing Clinician Source Performed COMP. METABOLIC PANEL 2022-07-03 04:42:00 Justin Baptiste [facility] ([id number]) [facility] CBC WITH DIFF 2022-07-03 04:42:00 Justin Baptiste [place] [facility] CONSENT/REFUSAL FOR 2022-07-03 03:35:53 Doctor Unassigned, [facility] DIAGNOSIS AND TREATMENT [place] [facility] BASIC METABOLIC PANEL 2022-05-16 08:42:00 Molina Stovall [facility] (NA, K, CL, CO2, GLUCOSE, Medica l Branch BUN, CREATININE, CA) CBC WITH DIFF 2022-05-16 08:42:00 Molina Stovall [facility] BASIC METABOLIC PANEL 2022-05-16 08:42:00 [facility] ([facility], K, CL, CO2, GLUCOSE, Medica l Branch BUN, CREATININE, CA) CBC WITH DIFF 2022-05-16 08:42:00 Molina Stovall [facility] BASIC METABOLIC PANEL 2022-05-15 09:46:00 [facility] (NA, K, CL, CO2, GLUCOSE, Medica l Branch BUN, CREATININE, CA) CBC WITH DIFF 2022-05-15 09:46:00 Molina Stovall [facility] BASIC METABOLIC PANEL 2022-05-15 09:46:00 [facility] (NA, K, CL, CO2, GLUCOSE, Medica l Branch BUN, CREATININE, CA) CBC WITH DIFF 2022-05-15 09:46:00 [facility]EL 2022-05-14 08:30:00 Molina Stovall [facility] (NA, K, CL, CO2, GLUCOSE, Medica l Branch BUN, CREATININE, CA) CBC WITH DIFF 2022-05-14 08:30:00 [facility]OLIC PANEL 2022-05-14 08:30:00 [facility] (NA, K, CL, CO2, GLUCOSE, Medica l Branch BUN, CREATININE, CA) CBC WITH DIFF 2022-05-14 08:30:00 [facility] 2022-05-13 16:29:00 Marybel Sexton [facility] FLEXIBLE SIGMOIDOSCOPY 2022-05-13 16:08:00 Marybel Sexton [facility] FLEXIBLE SIGMOIDOSCOPY 2022-05-13 16:08:00 Marybel Sexton [facility] FLEXIBLE SIGMOIDOSCOPY 2022-05-13 16:07:35 Ferdinand Kelly [facility] (ENDO) [facility] FLEXIBLE SIGMOIDOSCOPY 2022-05-13 16:07:35 Robin eric [facility] (ENDO) [facility] HB ABO GROUPING 2022-05-13 11:11:00 Robin [facility] HB ABO GROUPING 2022-05-13 11:11:00 Robin [facility] BASIC METABOLIC PANEL 2022-05-13 08:57:00 Molina Stovall [facility] (NA, K, CL, CO2, GLUCOSE, Medica l Branch BUN, CREATININE, CA) CBC WITH DIFF 2022-05-13 08:57:00 [facility] BASIC MET[facility]OLIC PANEL 2022-05-13 08:57:00 Molina Stovall [facility] (NA, K, CL, CO2, GLUCOSE, Medica l Branch BUN, CREATININE, CA) CBC WITH DIFF 2022-05-13 08:57:00 [facility] V[facility] D, 25-OH 2022-05-12 13:31:00 Robin, [facility] VITAMIN D, 25-OH 2022-05-12 13:31:00 Robin [facility] PHOSPHORUS 2022-05-12 12:20:00 Robin eric [facility] MAGNESIUM 2022-05-12 12:20:00 Robin [facility] VITAMIN B12, LEVEL 2022-05-12 12:20:00 Robin [facility] C-REACTIVE PROTEIN 2022-05-12 12:20:00 Robin eric [facility] THYROID STIMULATING 2022-05-12 12:20:00 Robin eric [facility] COMP. METABOLIC PANEL 2022-05-12 12:20:00 Robin eric [facility] ([id number]) Medical Branch LIPID PANEL ([id number])(TOTAL 2022-05-12 12:20:00 Ferdinand [facility], HDL) N-TERMINAL PRO-BNP 2022-05-12 12:20:00 Robin eric [facility] PHOSPHORUS 2022-05-12 12:20:00 Robin eric [facility] MAGNESIUM 2022-05-12 12:20:00 Robin [facility] VITAMIN B12, LEVEL 2022-05-12 12:20:00 Robin eric [facility] C-REACTIVE PROTEIN 2022-05-12 12:20:00 Robin eric [facility] THYROID STIMULATING 2022-05-12 12:20:00 Ferdinand Kelly [facility] HORMONE [facility] COMP. METABOLIC PANEL 2022-05-12 12:20:00 Ferdinand Kelly [facility] ([id number]) Medical [place] LIPID PANEL ([id number])(TOTAL 2022-05-12 12:20:00 Ferdinand Kelly [facility] CHOLESTEROL, [facility] TRIGLYCERIDES, HDL) N-TERMINAL PRO-BNP 2022-05-12 12:20:00 Robin eric [facility] PROTHROMBIN TIME / INR 2022-05-12 12:19:00 Ferdinand Kelly [facility] PROTHROMBIN TIME / INR 2022-05-12 12:19:00 Ferdinand Kelly [facility] CBC WITH DIFF 2022-05-12 12:18:00 Robin [facility] CBC WITH DIFF 2022-05-12 12:18:00 Robin [facility] XR KUB 2022-05-12 05:58:38 Robin [facility] XR KUB 2022-05-12 05:58:38 Robin [facility] SEDIMENTATION RATE 2022-05-12 02:23:00 Robin eric [facility] CALPROTECTIN, FECAL 2022-05-12 02:23:00 Robin eric [facility] SEDIMENTATION RATE 2022-05-12 02:23:00 Robin eric [facility] CALPROTECTIN, FECAL 2022-05-12 02:23:00 Robin eric [facility] OCCULT (GUAIAC) BLOOD 2022-05-12 02:10:00 Ferdinand Kelly [facility] OCCULT (GUAIAC) BLOOD 2022-05-12 02:10:00 [facility] URINALYSIS 2022-05-11 19:42:00 Romie Lewis [facility] CLOSTRIDIUM DIFFICILE 2022-05-11 19:42:00 Romie Lewis [facility] FECAL PATHOGENS BY PCR 2022-05-11 19:42:00 Ferdinand Kelyl [facility] URINALYSIS 2022-05-11 19:42:00 Romie Lewis [facility] CLOSTRIDIUM DIFFICILE 2022-05-11 19:42:00 Romie Lewis [facility] FECAL PATHOGENS BY PCR 2022-05-11 19:42:00 [facility] LACTIC ACID WHOLE BLOOD 2022-05-11 19:12:00 Romie Lewis [facility] LACTIC ACID WHOLE BLOOD 2022-05-11 19:12:00 Romie Lewis [facility] BLOOD CULTURE SCREEN 2022-05-11 19:10:00 Romie Lewis [facility] LIPASE 2022-05-11 19:10:00 Romie Lewis [facility] COMP. METABOLIC PANEL 2022-05-11 19:10:00 Romie Lewis [facility] ([id number]) [facility] CBC WITH DIFF 2022-05-11 19:10:00 Romie Lewis [facility] GLYCOSYLATED HEMOGLOBIN 2022-05-11 19:10:00 Robin [facility] BLOOD CULTURE SCREEN 2022-05-11 19:10:00 Romie Lewis [facility] LIPASE 2022-05-11 19:10:00 Romie Lewis [facility] COMP. METABOLIC PANEL 2022-05-11 19:10:00 Romie Lewis [facility] ([id number]) [facility] CBC WITH DIFF 2022-05-11 19:10:00 Romie Lewis [facility] GLYCOSYLATED HEMOGLOBIN 2022-05-11 19:10:00 Robin [facility] BLOOD CULTURE SCREEN 2022-05-11 19:00:00 Romie Lewis [facility] BLOOD CULTURE SCREEN 2022-05-11 19:00:00 Romie Lewis [facility] CONSENT/REFUSAL FOR 2022-05-11 18:00:56 Doctor Unassigned, Unive [facility] DIAGNOSIS AND TREATMENT [place] [facility] CONSENT/REFUSAL FOR 2022-05-11 18:00:56 Doctor [facility]ass[facility], [facility] DIAGNOSIS AND TREATMENT [place] [facility] CT ABDOMEN PELVIS W 2022-05-10 03:29:54 Constantino Okeefe [facility] CONTRAST [facility] Branch HB ABO GROUPING 2022-05-10 02:49:00 Constantino Okeefe [facility] LIPASE 2022-05-10 02:48:00 Constantino Okeefe [facility] COMP. METABOLIC PANEL 2022-05-10 02:48:00 Constantino Okeefe [facility] ([id number]) Medical [place] CBC WITH DIFF 2022-05-10 02:48:00 Constantino Okeefe [facility] CONSENT/REFUSAL FOR 2022-05-10 01:33:55 Doctor Unassigned, [facility] DIAGNOSIS AND TREATMENT [place] [facility] MAGNESIUM 2022-04-29 08:47:00 Cordell [facility] FERRITIN SERUM 2022-04-29 08:47:00 Cordell [facility] IRON 2022-04-29 08:47:00 Cordell [facility] TOTAL IRON BINDING 2022-04-29 08:47:00 Cordell [facility] CAPACITY [facility] BASIC METABOLIC PANEL 2022-04-29 08:47:00 Cordell [facility] (NA, K, CL, CO2, GLUCOSE, Medica l Branch BUN, CREATININE, CA) CBC WITH DIFF 2022-04-29 08:47:00 Cordell [facility] MAGNESIUM 2022-04-28 09:51:00 Dylan [facility] BASIC METABOLIC PANEL 2022-04-28 09:51:00 Jaci Estrella [facility] (NA, K, CL, CO2, GLUCOSE, Medica l Branch BUN, CREATININE, CA) CBC WITH DIFF 2022-04-28 09:51:00 Jaci Estrella [facility] C-REACTIVE PROTEIN 2022-04-28 01:53:00 Jaci Estrella [facility] CLOSTRIDIUM DIFFICILE 2022-04-28 01:46:00 Jaci Estrella [facility] TOXIN [facility] FECAL PATHOGENS BY PCR 2022-04-28 01:46:00 Jaci Estrella [facility] COVID-19 (ID NOW RAPID 2022-04-27 18:36:00 Viv Ventura [facility] TESTING) Medical Branch LAB ONLY COVID 2022-04-27 18:36:00 Viv Ventura [facility] INTERPRETATION [facility] Branch CT ABDOMEN PELVIS W 2022-04-27 17:16:09 Viv Ventura [facility] CONTRAST Medical Branch ABORH CONFIRMATION (LAB 2022-04-27 16:40:00 Viv Ventura [facility] ONLY) Medical Branch URINALYSIS 2022-04-27 15:38:00 Viv Ventura [facility] Branch LIPASE 2022-04-27 15:10:00 Viv Ventura [facility] MAGNESIUM 2022-04-27 15:10:00 Viv Ventura [facility] TROPONIN I 2022-04-27 15:10:00 Viv Ventura [facility] COMP. METABOLIC PANEL 2022-04-27 15:10:00 Viv Ventura [facility] ([id number]) Medical Branch CBC WITH DIFF 2022-04-27 15:10:00 Viv Ventura [facility] PROTHROMBIN TIME / INR 2022-04-27 15:10:00 Viv Ventura [facility] ACTIVATED PARTIAL 2022-04-27 15:10:00 Viv [facility]ura [facility] & RHYTHM 2022-04-27 15:09:41 Viv Ventura [facility] STRIP [facility] HB ABO GROUPING 2022-04-27 15:09:00 Viv Ventura [facility] NOTICE OF PRIVACY 2022-04-27 14:49:32 Doctor Nico, [facility] PRACTICES [place] [facility] [place] CONSENT/REFUSAL FOR 2022-04-27 14:49:05 Doctor Unamarialuisa, [facility] DIAGNOSIS AND TREATMENT [facility] [place] Encounters Start End Encounter Admission Attending Care Care Encounter Source Date/Time Date/Time Type Type Clinicians Facility Department ID 2022-02-10 Outpatient [facility] [id number] -2 [place] 11:33:08 ANA [id number] [facility] 2022-01-25 Outpatient [facility] [id number] -2 [place] 15:47:07 ANA [id number] [facility] 2022-07-02 2022-07-03 Emergency X OLIVA, [facility] ERT [id number] Univers 21:53:00 00:19:00 [facility] 2022-07-03 Emergency Oliva, [facility] [id number] Univers 21:53:00 00:19:00 Justin INFANTE 350.1.13.10 i ty [facility] [place].2.[place] [id number] [facility] [address] [place] 2022-07-02 2022-07-02 Orders Doctor JESSEE [id number] Univers 00:00:00 00:00:00 Only Unassigned, NATE 350.1.13.10 [place]y of [place] [facility] 4.2.7.2.686 Kartik as [id number] [facility] [address] [place] 2022-05-11 2022-05-17 Outpatient [facility] [id number] Univers 13:03:00 14:23:00 RAYRAY [facility]ly [facility] 2022-05-11 2022-05-17 Emergency Joshua Romie [facility] 1.2.840. 114 [id number] Univers 13:03:00 14:23:00 Jaci Estrella 350.1.13.10 ity of [place] 4.2.7.2.686 [facility] [id number] [facility] [address] [place] 2022-05-13 2022-05-13 Surgery [facility] [id number] Univers 10:30:00 11:10:00 Marybel INFANTE 350.1.13.10 i ty [facility] 4.2.7.2.[place] [id number] [facility] [address] 2022-05-09 2022-05-09 Emergency X [facility] ERT [id number] Univers 20:46:00 23:50:00 CONSTANTINO [facility] 2022-05-09 2022-05-09 Emergency [facility] [id number] Univers 20:46:00 23:50:00 Constantino INFANTE 350.1.13.10 ity [facility] 4.2.7.2.686 [facility] [id number] [facility] [address] 2022-05-02 2022-05-02 Transition STEF Cochran 1.2.840.114 [id number] Univers 00:00:00 00:00:00 of Care Lana TRUONGY 350.1.13.10 ity of [place] 4.2.7.2.686 [facility] [id number] [facility] [address] 2022-04-27 2022-04-29 Inpatient X CORDELL, [facility] AV [id number] Univers 09:54:00 13:15:00 DARRYN ity [facility] 2022-04-27 2022-04-29 [facility] Viv [place] [facility] 1.2.840.1 14 [id number] Univers 09:54:00 13:15:00 Encounter Jaci Estrella 350.1.13.10 ity of Darryn Landa 4.2.7.2.686 [facility] [id number] [facility] [address] 2022-01-31 2022-01-31 Outpatient COH COH PIJFJJK QTO COH 00:00:00 00:00:00 [id number] 2022-01-30 2022-01-30 Emergency E KRYS, DANG KM [address] 18:36:00 22:28:00 JOHN [facility] 2022-01-29 2022-01-30 Emergency E MARIAELENA DANG KM [address] 21:25:00 00:58:00 GRGEORIO Lyons l 2022-01-28 2022-01-28 Emergency E MARIAELENA DANG KM [address] 11:02:00 14:55:00 GREGORIO [facility] 2022-01-24 2022-01-27 Inpatient E ALEJANDRA ADDISON [facility] [address] 23:12:00 15:10:00 OBGEOVANNA Lyons l 2022-01-25 2022-01-25 Outpatient [facility] [id number] [place] 18:30:00 18:30:00 Health 2022-01-25 2022-01-25 Outpatient [facility] PIJFJJK QTO [facility] 00:00:00 00:00:00 [id number] 1 Results Test Description Test Time Test Comments Results Result Comments Source COMP. METABOLIC PANEL (65515) 2022-07-03 05:30:27 Test Item Value Reference Range Interpretation Comme nts NA (test code = 0364768511) 140 mmol/L 135-145 K (test code = 8752732372) 4.2 mmol/L 3.5-5.0 CL (test code = 9346395396) 105 mmol/L 98-108 CO2 TOTAL (test code = 30 mmol/L 23-31 5104189862) AGAP (test code = 2942470689) 2-16 BUN (test code = 8125060227) 13 mg/dL 7-23 GLUCOSE (test code = 6193258795) 92 mg/dL 70-110 CREATININE (test code = 0.89 mg/dL 0.60-1.25 4403287546) TOTAL BILI (test code = 0.4 mg/dL 0.1-1.4 9504514738) CALCIUM (test code = 6737663455) 9.2 mg/dL 8.6-10.6 T PROTEIN (test code = 7.2 g/dL 6.3-8.2 3804474287) ALBUMIN (test code = 0155725843) 4.3 g/dL 3.5-5.0 ALK PHOS (test code = 9633864015) 62 U/L 34-122 ALTv (test code = 1742-6) 19 U/L 5-50 AST(SGOT) (test code = 32 U/L 13-40 2953446985) eGFR (test code = 8176534288) mL/min/1.73m2 ROBERTO (test code = ROBERTO) Association [...] or urine or abnormalities in imaging tests). [facility] WITH [id number] 04:54:46 Test Item Value Reference Range Interpretation [...] RDW-SD (test code = 47.4 fL 38.5-51.6 37244-1) RDW-CV (test code = 18.8 % 12.1-15.4 H 788-0) PLT (test code = See_Comment H [Automated 777-3) message] The sy stem which generated this result transmitted reference range : 150 - 328 10*3/ ?L. The reference r carlota was not used to interpret this result as normal/abnormal . MPV (test code = 9.9 fL 9.8-13.0 24235-8) NRBC/100 WBC (test See_Comment [Automat ed code = 6005898957) message] The system which generated this result transmitted reference range : 0.0 - 10.0 /100 WBCs. The refer ence range was not u sed to interpret th is result as normal/abnormal . NRBC x10^3 (test code See_Comment [Auto mated = 6276280723) message] The s ystem which generated this result transmitted reference range : 10*3/?L. The reference range was not used to interpret this result as normal/abnormal . GRAN MAT (NEUT) % 52.0 % (test code = 770-8) IMM GRAN % (test code 0.30 % = 5320257990) LYMPH % (test code = 28.1 % 736-9) MONO % (test code = 16.8 % 5905-5) EOS % (test code = 1.6 % 713-8) BASO % (test code = 1.2 % 706-2) GRAN MAT x10^3(ANC) 3.91 10*3/uL 1.99-6.95 (test code = 8385885214) IMM GRAN x10^3 (test 0.00-0.06 code = 0659633947) LYMPH x10^3 (test code 2.11 10*3/uL 1.09-3.23 = 731-0) MONO x10^3 (test code 1.26 10*3/uL 0.36-1.02 H = 742-7) EOS x10^3 (test code = 0.12 10*3/uL 0.06-0.53 711-2) BASO x10^3 (test code 0.09 10*3/uL 0.01-0.09 = 704-7) Lab Interpretation Abnormal (test code = 89515-7) [facility] [id number] 15:55:55 Test Item Value Reference Range Interpretation Comments Case Report (test code Surgical Pathology ? ? = 8498845890) ?Case: [id number] ? Authorizing Provider: ?Marybel Sexton MD ? ? ? Collected: ? 05/13/2022 1129 ?Ordering Location: ? ? [facility] ? ? ?Received: ?05/13/2022 1621 ? [facility] ?Pathologist: ? Coleen Rosario MD ? Specimens: ? A) - LARGE INTESTINE, LEFT-DESCENDING COLON, random biopsies ? B) - LARGE INTESTINE, SIGMOID COLON, random biopsies ? C) - RECTUM, Random biopsies ? Final Diagnosis (test n1awkBRjSHWga7mhVLLodL code = 3427689965) FuZzEwMzNcZnRuYmpcdWMx IHtccnRmMVxlcGljMTAxMD HfDH3phDqbhIz5mZnvFJUx gbH9jXFmBNrso0ucUMV3l7 rndzigJFJbYXbsWk3tdOXb yNyvNyAfWNBhBRd7yR06AR GtlG3plWQqDTp0BJAgtDNc ccBkLpUgVHPqbQTobFQ7GT HjWQ3kohzqVMoeHGlsFIKw gcM5VFCbzYScC8XdYWHbGQ 8clazfTME5ZMucCBCyWOI5 XlWoCASwg5Wxbxs8JrVhvN FyZFxwbGFpblxmczIwXHBh qquluMR4ZYvvqJ84CRQkyK otOUZdWMCtZFSKTS4ZOJAU WHZEXBPQA7ODNzIGXtiaBY MVZhDJAUPUZP6ZG3g4SLpn OXYlxKhoSYMyROphgJ9uSD PoKWYeOPCJVN6WFORuBSKK A2WPEQaAIRopOUeRBUAnTU JSQNYBBLSVNkpyA7LTLTEb ICZPS5TOJodjLX0KOmSZE1 CWFGrUTVWFM8DQWPTRZJNW VElDXHBhciAgICAgICAgSU 5RHEwZOqELPTXARmFDJK5J PlYpENFRQBJLUJxpJF4KHE GMUQQRMLHKO1nUXCMOKMWF QIzkCHvYDU3OSHzVBvidM1 4NQ8sLHHIENVIURDZOSTgq YXIgICAgICAgIFNFVkVSRU xZIEFDVElWRSBDSFJPTklD IENPTElUSVNccGFyICAgIC 2xKx0gR3IQEhHNG25HRV7A UGJFI2PHHYRQBGPLKSJFEF lGSUVEIFxwYXJccGFyXGxp ATVrJBGaMSO0CIumfG49HJ YsXa8mM92KA97fULOHQ55W NUTnUVFZMtPCHGLTGS0FC2 w1TDmgFSLfkXpfCDQoAZed aQ4eNLMoFB1oU37DC01RJj HSWBJUE1OzL4rQYUDJIKEW IigsY0HUNGBMNSrPBDIIJl lQVCBBQlNDRVNTLCBJTkNS RUFTRUQgTFlNUEhPUExBU0 9VV9oGRSYbkOZuMEPeOQKt AQ2FRUuYOiBQPCWKWlHAVJ 0EOaYpSLWKGEAEQWjrKV5H WIKDFLRPNQZRK1lESTMRBI NJSAvoLQeDNZ0SWOrLWecw O2HLDCWaHGAOHOFQETUrwE VzAOAbXBYjJ02LF7lFUUVG VCBXSVRIIFNFVkVSRUxZIE FDVElWRSBDSFJPTklDIENP VZlVHUBgwKXhUHGvYZ9pIb 2cM3RRXaRUT27NTV4CLYYW A2MBYDLSIJZLWYNFCSzNWN VEIFxwYXJccGFyXGxpNDUw LVLqGUF2QIbiiV67FOCaKg 1hEhCMTGYFNUVRQI0KU77c QklPUFNZOiBccGFyXGxpMF xmaTBcbGluMCAgICAtIENP RD3WFQVbNKQIM7ILUReROA ggVUxDRVIsIENSWVBUSVRJ PqiwU1LSWXMxXJJLY7LUWm yrGJ2JOcCTM9OXOXrSKRVX Z0KBDMESBHARQPfCCUXwjh AgICAgIElORklMVFJBVEUg PS4wHEECLR6KXHBCH9TMMZ EsIEFORCBDUllQVCBBUkNI OBIFV5OIIvDOAVEUL5XMVt SXS12cORAJQSWNMRPVP4Or Z0FNRVgnYEXiQKQjPAYMV8 6RZABLBK7FUMdSLFjaZ8CC RVJFTFkgQUNUSVZFIENIUk 6EWGCnBKEGZ3ZZYOgFYYUf exMvDDPkGT3OIYfUEU7GNT 9NQSBPUiBEWVNQTEFTSUEg SURFTlRJRklFRCBccGFyXH GyntcburEuSDylSrx4TJVu GEelYF3tDSBRAYFcBZ2qVO 5eOGZcPSz0DNgdAP3hrZSo EZNjrnRlBwFfZUoeBKT5g2 xydGYxXHNzdGVjZjIyMDAw FUQee2gpAZFefKUdGxDdGj NcZnRuYmpcdWMxXGRlZmYw i5wjr665aXPto5tiOQAaUo S0mUOwAAQbpMcxerr0dAjg KjOfDLZhi2wwiqWpXqKjCZ TvBJTlFWDrkVJvH875SXYj ARftb3utf0LnXJFrbORce5 V0RUARJOakKcWcO239i2ab k4ogvtEzaBP6XHRpEQK1SZ bxnwFnwdA2PTlmrCXlJmY2 IDtccmVkMFxncmVlbjBcYm v8PCQpA381MIL1jEgmg7hf NEZ8BMLsRLIqOagbJu2fiR VgU704AYXgKNMFEZMmcYy0 DNMkwfYsetRybGNEh318W3 56d2qnHMGgciCktDwAzcsf c2vkA772NLAgeDKjkmOgVy QhTZIhnKTewLX3KLTuOH3n qiqrBVngRDzkJZUyimS6FP MpqVDtB0GtHJBuZL9kcrkw MFW7XIdkZDQrPJC7SaIjKK Tzp1Ddrqn9JxHigm0yfe95 RWR0m5QoiDrtNRO4KXG5Ig HbXt8qaCHmPRNsGV1tCxFz iWWbTHXxup59vHwnCXhrpo DadN7iDjOwAEAgnAAnASYq SW3uqLBqRSTutC7icxbcVB BnYnJkcmhlYWRccGdicmRy Jo6quJqgTQC2YIfoE2zcmG 9mApE6ZDghK0rwrS4cQCg6 HGzyoNQ5RCSuoY0iJE2ity smz0gjXOtqTQkhQTEbpvU8 ppS0VVBbwSOsC8KcgU8sIZ JcPX6lvvofi4zkKEG3EMdy FNJsKCN7FzTtTAMsz1Fkbs b6SyIfx4EcgBKyJVytY66o c918NYAwokQkC2tgsBBubr iuhCTbuolvUJivcdO2QORz XHBsYWluXGYxXGZzMjBcbG FuZzEwMzNcaGljaFxmMVxk YsPjKVDiAGtbX5wkAkKfG3 YyXGZzMjBccGFyIEkgaGF2 GGAqERYgg84muGi1TGEblv bux2SfTSKdiSZzqLDreD5c kjJnp8boWXGjXELlDEVsC9 MvLIF5eHDiZGGkbASsaKO8 KV6uzlHyIL3vMMIgFecdid FedELdlxPjJRTnPIgml5ah GP8cXHXemAnbiI8xfIB8BR Zav5bgjWPnfUPgz0cbx9Xj bmFtZShzKSBtYXkgYXBwZW JmBX8jBRXoyYHhucPbj0Z5 LfyujSNaadllEhwddsE6UZ xlfconZRDhSJauR1ivEzPr UTDguBrmJrawp4QbLXGbQX ZzMjhccGFyfX0= Final Diagnosis Comment x9irsIOxDLFlnHRxDTXkA7 (test code = ojjlLsVJAqsPHlX7Bmvito [id number]) QPyrXP9sSN8bdZoasFUleB KoREVqPwNna9dfc453oFCo h0dpUXVYcbfifEy9xKsnG8 6xs1M4FkurJ13hhVYtCYH0 ARGuCUFjbFWySDDjERA0EX FvgBYsN5nvWBFqZS1fowzc IAomVTvlULRzxXO3CYBvnC KcH3ZwPBItYWmqICHftee1 GpVfWo4wqKLurDibKGbmCY JkXHBsYWluXGZzMjAgRHIu HPCmjVImWWPicmO7kZW3UT KbuEpoUVMmn5RoTV5kCPFd xrY0ulSby6u2gMG3mNNtXP teK63bb0zmCeRfPVMhps9= Clinical Information colitis (test code = 1967313624) Gross Description (test v2mevXVxEJXzaZAPVZMzGQ code = 8272883923) OdRI7kqOaxvSk4oVduHUAi huM9aAWtKWyyn8qdXSN9e8 llbiANClxkZWZmMVxwYXBl niqnIvF5AMduZEAexighZM f6VWgdVSKegPB0GCVtbBKk R9TmJMZmNN7lajy1QAY0TV nvMGYrTtK0NUEiOdZlUwdw IXx2NLLcqlR6Cmz5XNDqFQ CxjDJvd5Q9ZRlgwtstDDJg hMRxL833IBicl3CjqPHkJG pccGFyZCANCntcKlxlcGlj n3FdwAVqNXfiEPBkNTZySG qgroucISz5VTKzNSagsBHy SQ8tlBwlFfwyeNkcx5NhwX BcXGlkIDUxMDAyIFxcZGIg LL4GVwWoHFH4PVmrWveqMB m8ARm2CY7KFzAcKPNfLTUq BpF5GRVyWBp6RGsxMK3MEV P8RAH0QAP2FSYgEVZyUqbf ZVu5UYUyUEblKPRzoULsCS ddMkMuFYWxMXeebJLwJY6u fVxwbGFpblxmczIwIFNQRU FGGHLGNVSbxJXuJY2PSYNa FUosLYIhbSKSCZQ8BL2kOQ ANClxsdHJwYXJcbGluMFxy cQ3cYG3LTBi5rkTnSBKaDi YdM3FpY3xiNU7sAAXjnePk XAYxcFSuBFPhbhKif7CoJV ifnhIaDVJkoBlrXRL4sWGe QDOwXROpYNZdNL05XYpEFG MgbmFtZSwgVUggbnVtYmVy IGBgIGxhcmdlIGludGVzdG jcZVwrgNDqaVCcAMOtAJ0o eV6cPYZvCE0ue91dEecagB HvAEJiN0G6YHhLSBXfqdGd H65ei1wksDEwd8HrfFEptF lwbGUgdGFuLXBpbmsgaXJy DVf7nOBgRGBkAgXjcAztq2 WbQNPtSPevSN04hsIkRB6j LTAuMyBjbSBncmVhdGVzdC WpvK4gkjOzw16qWHPcYTN5 EMXpVLQ3UHCpLIPcnRLzkq IuC3wuQKmjdDEtKpDZqFRx e1XsU9cvFZ8kqLLkGbmvpR UxCQYtxJodz1WxhVFvOBLq t9LxhWXlDPuyII8bWFQ5Hk 9heCHvHVSffeW0q0GxWVcy SQEyCfwxjC4qGGljzH1zOY 8KLYRlhQIPXME2BG8jAMz0 HHxeMICeO2IuT6LkhhDuhZ EiPYDhdwDon6mjRSZ3LTKy sOKseIQaRlPlCiwuZZC3UU HfNBfwFV3Zy9gmEZIpfXMe VSK5XOssjVXtEXFxWAIfSM jrVeZjM0BUHCJzFtv5VhE5 JDDnNYr0RJzbD3QAINRmGU DcAlQ3NTC9ZgX9XGx9KFJP Vb5xTPL2NXPvNcIoCZO3KF EzOSBcXHQgMiBcXGYgQXJp YWwgXFxmcyAxMCBcXGZsIF nnijS0YRTlOWnzQGKiTvYt R5LOA7tFUA1uMyjsKOYcVB xzrDceiP8hWBKmU90tg2GK f6HdNA1QHIn9ygUkjxockU 6dEGAvmcVnQYhexNBnA1fk HtIpIyZWuTUauO3pfkMPOX shIAQvZ4QyphEhAYevDUQa sl2vlPppUZkrMiUulWRgDD dpdGggdGhlIHBhdGllbnRc E5L1ojPjVE5nBIABRRShyP 6bXGPcZDHlvPEnF0HmkV41 DVS0rN2iOBKatZkpi3fhKQ XiyR2dXMWdEH8if71cRsju kQHrNCZwV6Y6SBbFITYzbb OyX06vy9cpyZWdx3KtpTMm dGlwbGUgdGFuLXllbGxvdy LzsuUwR3AsADQch42ehKC3 cOMskNFzHoJdF80yhuJlTV kcFkKsCT7sDSDuXNlmQYdy MRS1OTV4NBBsnDPld9ndyd yfDH5lUPaoNM96PFgyHI5e ZTKiJAiiCZTqP3TqE2V7FU vjOAIjMSOwcMObrS4ydmRp tmMfnZz2HYFnFUW4rXLivM quBREmVsnviDT5NVKbEqRa wtWud2InwFv6hREmBGuvJK GehZ0rrJ1jXnGtEGfodvQu DAhksvMrKIlwHLCdX99wa1 WSe0OlGVFje3jicCiqs9Ka dGVuZFxwYXJccGFyZFxzbC 7fBvDmk1dwbVs2PKnnjaM1 CNGidh5mvStjrQ8uUUc2FJ boGOYuL1ToN4SvZFtbKIQ2 MTAwMiBcXGRiICBPVlIgIi MaQPB4FHH7CeK4CDh9UYSL RmCsTqPwXoGeWWW8OjlrPZ l1SKh6XHuDHtLzRhY5ZDZ0 ZLOiRSV4PJU0CYpkqPRjQU xcZiBBcmlhbCBcXGZzIDEw VXjoYiugXZxgQ33fbOewfX 2mDtAsHHMDKLMPCS7QNiQK XHBhciANClxwbGFpblxlcG ljTmVzdERvYzEgDQpcbHRy cGFyXGxpbjBccmluMCANCl xsdHJjaFxmczIyIFNwZWNp dTMeOCJliDZdwhEcWRr0CN EfkX8kRp3wqNBvuK7dtPKw URdbYTAow3w0sYD5xSFjoH F7fREnpCycVpJtOP8qvQBp XIDUJQ18oNAeioImWGNyUL C3uW4eBSCcjbAniQIvpX9h p9kjr2liYfSbR8Y0KIDsAV Egt87ooEZ8ewPzWjU2BHOs zqXmisVwY3KlUXAkp29nlC C6eAFskRDfTgVkE90bzhXu WJckYqBvBW3mOKZeDStoMC jzNKN1EXJ2XKCafDCiz6qu dgdjAG15QHjgIJ5pICsuLB 2nEQGsHSwsSXVjX5IgW0K6 ZFaaCUIbOYGnkFYbuN7lvt PesuKdtIw5RSNwKUI3pLDo oLlwUNEaPynzkOL8GXItAe UgciZqk6XyvDo7lJIdKMze CMPveS5iqD2rRpGdWPddpb UgXGxpbmUgSnVsaWUgTWNJ bQpmvgJ8IAQRBYFwYBXGJJ kNClxlcGljTmVzdERvYzBc dhA2IREvjMLeEIK2BK4uNC NsbvxmRQVhTPXeEKM4VLbj kQ60dNHkNCEtBBMulMItpU etrSNgdsRRZivsbS8kXqZy m5uxsMw7EFJUAiuafYWllt mkdwX9AHWin8pthOxbv7Jf cFVrWU8gaYuglZ6sAoNhAf ANCn0= Disclaimer (test code = x3qgvOZaJMGvh2ylNBTniI [id number]) FuZzEwMzNcZnRuYmpcdWMx MJkmhwSjPVhvh5YrI1AmCk AwMFxhbnNpXGRlZmxhbmcx ETJoOHG7feSxFVUvSAlzHY WxYPxxUr0mwMFhnZbkZeRk HEVls1nncuWLRFiqBtXzF6 10GDUfRPucz8ojd8KiSGXk zWPkc2X9WXJNzfsfsLl5pH llN86qz3K3DrseA1viGMYx PQQoY4TpBU8vLLMgPhw0GO M0EUN9UBNeAELzV4JeGP6b SYPtqYKxFSy3l1evsQxqQZ UiCNH4o2rwIHabneHrRY5c zc5goFu2m6abucEdYOZuWY HaiUCMCFPvM7HetZaaOw2w xOo4zBpcKzfkUBJ4Vqx8UG 2qsg21kqy1hRqcJYGsyizl VjE7WWpiYSOjqomlUIr1FB isGFMdcHY1JZSzrPRqW6Hh WTDwOG8kzvj8OZN8AGokEM WsTxT1SYBovUDkYTZpwLjd XHqbg943ZLT1JzIgZD9lE9 Zgu5Y1aI8ipZIzFOGerVFd WnJdPDQkvs5uvORyVPbyb8 HgHUI4gpC8iUMqaYWpCLXv BF27Inwwb3YoZoqpf5JjK6 1gkAS2OJyrr5yxPD4jHbN1 seEeRBfth6muwA6aEtU1KR gaJC8yGB3rPAJrlA9yereb XHBnYnJkcmhlYWRccGdicm VbGb4ouXgkMXS4YIhqK6cr gB4hLaJ4FOwtV4yquB8fML x3HByvuXH6UPLcnR5yJC8a ofpww8olGGkuWFbvOPJxwg V5ekI9RJWotFDtM0ElzF6o LHCaDU8sqsbym2eqDYU6FJ pnVQUcZSM5IrYkXFKwe2Mw poq4GkBgn5VrzVBpTZfwK0 2yg071YWOnnjMeI4joiZGb gmwggFMdbzfnFCrnpvH8XK IfhnNtl4SiMSBvNRM7IIfl VMhrySJrVMKrdGbyw5lsO8 RscGFyXHBsYWluXGYxXGZz MjBcbGFuZzEwMzNcaGljaF hwIIidLwEjMGLiZXfrX6bo NnGxG6BxLBJhExIwzXGrK9 ggVGhpcyByZXBvcnQgbWF5 EDwsF8l9EWJwagIhrWf8bt RvRbNrWUByDWP0RQapaIHf UJSyb8QseebkzDPuCg7xdZ JpKXQogK4jCXHwUTQiJJmi UA8nzXh1MCBSaPCwnNTeEj KUBBEaEG67urWpHQLKespx s1T2APygXQElr4PnjJZhJ9 ptd9FjEMHjm92tIO9av7U9 q8joBMF2TO4pa7DwVIUeoP ZdtCUkPTLgo2Gouuokj8My HWXmulVck8GxIVRmyhHraG ZbNKTrsdUqpy4zwfPkFHRs VEZgT5UgbvaweKbnwuQyAV Oved3rpzBmXLJ9NEWRIVPe AQJce4XsmR8bpPXQRSC3sL Rrxi0qcxNNlAUeFNBnvs41 YRDhDY5sZ2meCJCtSQOjma HuxVLwb5NzVUTfhAG9oOXl RW0YChSYa82lAIVrUDEMvp ZiITMuhYkivFB8wlT5oD7v IChGREEpLlx+IFRoZSBGRE EqGN7xulWya1JjzkBkiJfn XQUkbKKxn1CrnVDoz8XekZ mjy9WsrLOxjBQvDO3rTWIf clxwYXIgVVRNQiBMYWJvcm E8f3MqZXCkZAZsPLW6sQkb vfe7AYGteF4hVZPuT0cwbj wsAOtjHGAmp7TazL5zqGNE vZOul9HabXClkKGEyMCoJC 8cmoPaVEzZLVnXEJF8nxFz WUMli6AbTKxbB3roW82kxL jtzMj0eMN2AZQ6hC5iCvw+ IFxwYXJccGFyIEFwcHJvcH RvKSNgbPrdosNmL8NwqsJh qO1hmNUherEeAW6vRN5wU1 P1jRCjNVZkerQru6tuPTix dmUgYmVlbiByZXZpZXdlZC Zsm0LwMSlfOKM0JMxymiLm bmNsdWRpbmcgSCZFLCBTcG MeuSKdILL8IFgwtqDyvgJt LY4xiC7cpTbxiW7rkSQnhW Y3xcyiRSMeYHAgdVcaJXFg LK0zbFHvUJPnngRBeDhfhW VmaQ6xZ6UxOUOtXCPigy7w BTMkgZ6cMGcvu6ZjgdawSC EvQRIvRZAzurPkdq9eAYZf lSWEEO8GEWplsNAxg9Thsz UwX9vUNJX6ZVJgIqPgZtsk ULNjfWXqdRHaGJYkpz68DA RcvD9rcWpzQFMabA8jvY3h jXvppL3mLlHlKeXoGGdaXU 1cLYVxU3xonYRrELPsXEHx E2ptLaShwE8lpGygJThmEd BzNvAnIGrvVQU9bZ== Embedded Images (test code = 3666986264) [facility] - Peripheral # [id number] 20:01:59 Test Item Value Reference Range Interpretation Comments Blood Culture-Aerobic No organisms No growth Previo us (test code = 28077-7) isolated prelim inary verified result was Culture [...] Culture-Anaerobic isolated preliminar y (test code = 06219-3) verifi ed result was Culture In Progress [...] CDT Lab Interpretation Normal (test code = 60676-0) [facility] [id number] 20:01:59 Test Item Value Reference Range Interpretation Comments Blood Culture-Aerobic No organisms No growth Previo us (test code = 67316-8) isolated prelim inary verified result was Culture [...] Culture-Anaerobic isolated preliminar y (test code = 49507-6) verifi ed result was Culture In Progress [...] CDT Lab Interpretation Normal (test code = 83633-6) [facility] Culture - Peripheral # [id number] 20:01:59 Test Item Value Reference Range Interpretation Comments Blood Culture-Aerobic No organisms No growth Previo us (test code = 49598-1) isolated prelim inary verified result was Culture [...] Culture-Anaerobic isolated preliminar y (test code = 49005-0) verifi ed result was Culture In Progress [...] CDT Lab Interpretation Normal (test code = 41938-3) [facility] Culture - Peripheral # [id number] 20:01:59 Test Item Value Reference Range Interpretation Comments Blood Culture-Aerobic No organisms No growth Previo us (test code = 16853-7) isolated prelim inary verified result was Culture [...] Culture-Anaerobic isolated preliminar y (test code = 98026-6) verifi ed result was Culture In Progress [...] CDT Lab Interpretation Normal (test code = 98521-8) [facility]0500 Routine 2022-05-13 13:43:26 Test Item Value Reference Range Interpretation Comments ABO & RH (test code O Positive Performe d at [facility] = 20) Laboratory [facility] [place], [place] [address]Toll Free: [phone] A No. [id number] IAT (test code = Negative Performed a t [facility] 1185) Laboratory [facility] [place], [place] [address]Toll Free: [phone] A No. [id number] [facility]-0500 Routine 2022-05-13 13:43:26 Test Item Value Reference Range Interpretation Comments ABO & RH (test code O Positive Performe d at [facility] = 20) Laboratory [facility] [place], [place] [address]Toll Free: [phone] A No. [id number] IAT (test code = Negative Performed a t [facility] 1185) Laboratory [facility] [place], [place] [id number] Free: [phone] A No. [id number] [facility]12, [id number] 22:16:10 Test Item Value Reference Range Interpretation Comments VIT B12 (test code = 603 pg/mL 240-930 [id number]) ROBERTO (test code = ROBERTO) Biotin has been reported to cause a positive bias, interpret results relative to patient's use of biotin. Lab Interpretation (test Normal code = 19695-1) [facility], [id number] 22:16:10 Test Item Value Reference Range Interpretation Comments VIT B12 (test code = 603 pg/mL 240-930 [id number]) ROBERTO (test code = ROBERTO) Biotin has been reported to cause a positive bias, interpret results relative to patient's use of biotin. Lab Interpretation (test Normal code = 68409-8) [facility] D, [id number] 21:50:29 Test Item Value Reference Range Interpretation Comments VIT D 25OH (test code = 25-80 L 77026-5) ROBERTO (test code = ROBERTO) Deficiency: <20 ng/mLInsufficiency: 20-24 ng/mLOptimal: 25-80 ng/mL Lab Interpretation (test Abnormal code = 16785-7) [facility], [id number] 21:50:29 Test Item Value Reference Range Interpretation Comments VIT D 25OH (test code = 25-80 L 17375-7) ROBERTO (test code = ROBERTO) Deficiency: <20 ng/mLInsufficiency: 20-24 ng/mLOptimal: 25-80 ng/mL Lab Interpretation (test Abnormal code = 65845-9) [facility] [id number] 18:56:01 Test Item Value Reference Range Interpretation Comments CRP (test code = 0.9 mg/dL See_Comment H [Automated message] [id number]) The system [employer] generated this result transmit eunice reference range : <=0.8. The refe rence range was not u sed to interpret th is result as normal/abnormal . Lab Interpretation (test Abnormal code = 73093-4) [facility] [id number] 18:56:01 Test Item Value Reference Range Interpretation Comments CRP (test code = 0.9 mg/dL See_Comment H [Automated message] [id number]) The system [employer] generated this result transmit eunice reference range : <=0.8. The refe rence range was not u sed to interpret th is result as normal/abnormal . Lab Interpretation (test Abnormal code = 76963-8) [facility]ATING [id number] 13:43:08 Test Item Value Reference Range Interpretation Comments TSH (test code = See_Comment H [Automated message] [id number]) The system [employer] generated this result transmitted ref erence range: 0.45 - 4 .70 mIU/L. The refe rence range was not u sed to interpret this result as normal/abnor mal. Lab Interpretation (test Abnormal code = 24854-5) [facility] [id number] 13:43:08 Test Item Value Reference Range Interpretation Comments TSH (test code = See_Comment H [Automated message] [id number]) The system [employer] generated this result transmitted ref erence range: 0.45 - 4 .70 mIU/L. The refe rence range was not u sed to interpret this result as normal/abnor mal. Lab Interpretation (test Abnormal code = 14700-9) [facility] [id number] 13:21:44 Test Item Value Reference Range Interpretation Comments NT-proBNP (test code 54 pg/mL See_Comment [Autom ated = [id number]) message] The system which generated this result transmitted reference range : <=125. The reference range was not used to interpret this result as normal/abnormal . ROBERTO (test code = ROBERTO) Biotin has been reported to cause a negative bias, interpret results relative to patient's use of biotin. Lab Interpretation Normal (test code = 61644-7) [facility] [id number] 13:21:44 Test Item Value Reference Range Interpretation Comments NT-proBNP (test code 54 pg/mL See_Comment [Autom ated = [id number]) message] The system which generated this result transmitted reference range : <=125. The reference range was not used to interpret this result as normal/abnormal . ROBERTO (test code = ROBERTO) Biotin has been reported to cause a negative bias, interpret results relative to patient's use of biotin. Lab Interpretation Normal (test code = 58502-5) [facility] (08098)(TOTAL CHOLESTEROL, TRIGLYCERIDES, HDL)2022-05-12 13:12:48 Test Item Value Reference Range Interpretation Comments CHOL (test code = 124 mg/dL 120-200 [id number]) HDL (test code = 27 mg/dL See_Comment L [Automated message] [id number]) The system [employer] generated this result transmit eunice reference range : >=40. The refer ence range was not u sed to interpret th is result as normal/abnormal . HDLC RATIO (test code = See_Comment [Au tomated message] [id number]) The system [employer] generated this result transmit eunice reference range : <=5.0. The refe rence range was not u sed to interpret th is result as normal/abnormal . TRIG (test code = 104 mg/dL 30-170 [id number]) LDL CHOL (test code = 76 mg/dL See_Comment [Auto mated message] 00118-7) The system [employer] generated this result transmit eunice reference range : <=160. The refe rence range was not u sed to interpret th is result as normal/abnormal . VLDL (test code = 21 mg/dL 5-60 3478890468) Lab Interpretation (test Abnormal code = 06689-3) [id number]TOTAL CHOLESTEROL, TRIGLYCERIDES, HDL)2022-05-12 13:12:48 Test Item Value Reference Range Interpretation Comments CHOL (test code = 124 mg/dL 120-200 6546575042) HDL (test code = 27 mg/dL See_Comment L [Automated message] 0493002599) The system [employer] generated this result transmit eunice reference range : >=40. The refer ence range was not u sed to interpret th is result as normal/abnormal . HDLC RATIO (test code = See_Comment [Au tomated message] 1670010794) The system [employer] generated this result transmit eunice reference range : <=5.0. The refe rence range was not u sed to interpret th is result as normal/abnormal . TRIG (test code = 104 mg/dL 30-170 5814667267) LDL CHOL (test code = 76 mg/dL See_Comment [Auto mated message] 06492-5) The system [employer] generated this result transmit eunice reference range : <=160. The refe rence range was not u sed to interpret th is result as normal/abnormal . VLDL (test code = 21 mg/dL 5-60 0520109074) Lab Interpretation (test Abnormal code = 04422-0) [facility]2022-10-06 13:12:47 Test Item Value Reference Range Interpretation Comments MAGNESIUM (test code = 3539537522) 1.8 mg/dL 1.7-2.4 Lab Interpretation (test code = Normal 28714-0) [facility]2022-10-06 13:12:47 Test Item Value Reference Range Interpretation Comments MAGNESIUM (test code = 7291340411) 1.8 mg/dL 1.7-2.4 Lab Interpretation (test code = Normal 98982-5) [facility] (14139)2022-05-12 13:12:27 Test Item Value Reference Range Interpretation Comments NA (test code = 139 mmol/L 135-145 9210612578) K (test code = 3.5 mmol/L 3.5-5 3014170222) CL (test code = 106 mmol/L 98-108 7718960061) CO2 TOTAL (test code = 27 mmol/L 23-31 1418255745) AGAP (test code = 2-16 1935700775) BUN (test code = 7 mg/dL 7-23 1202248825) GLUCOSE (test code = 87 mg/dL 70-110 4094910891) CREATININE (test code = 0.89 mg/dL 0.6-1.25 7951595185) TOTAL BILI (test code = 0.3 mg/dL 0.1-1.1 1154912730) CALCIUM (test code = 8.4 mg/dL 8.6-10.6 L 2667922827) T PROTEIN (test code = 6.7 g/dL 6.3-8.2 5681698767) ALBUMIN (test code = 3.5 g/dL 3.5-5 9374718183) ALK PHOS (test code = 81 U/L 34-122 1903543796) ALTv (test code = 13 U/L 5-50 1742-6) AST(SGOT) (test code = 22 U/L 13-40 2400872867) eGFR (test code = mL/min/1.73m2 3994724334) ROBERTO (test code = ROBERTO) Association of [...] tests). Lab Interpretation Abnormal (test code = 43751-3) [facility] 13:12:27 Test Item Value Reference Range Interpretation Comments PHOSPHORUS (test code = 5504959835) 3.8 mg/dL 2.5-5 Lab Interpretation (test code = Normal 93642-6) [facility] (68512)2022-05-12 13:12:27 Test Item Value Reference Range Interpretation Comments NA (test code = 139 mmol/L 135-145 2986387247) K (test code = 3.5 mmol/L 3.5-5 9425506232) CL (test code = 106 mmol/L 98-108 7182846927) CO2 TOTAL (test code = 27 mmol/L 23-31 2772169412) AGAP (test code = 2-16 9602651626) BUN (test code = 7 mg/dL 7-23 4164910714) GLUCOSE (test code = 87 mg/dL 70-110 9875161344) CREATININE (test code = 0.89 mg/dL 0.6-1.25 7119058323) TOTAL BILI (test code = 0.3 mg/dL 0.1-1.6 7236698831) CALCIUM (test code = 8.4 mg/dL 8.6-10.6 L 8405454311) T PROTEIN (test code = 6.7 g/dL 6.3-8.2 9960694862) ALBUMIN (test code = 3.5 g/dL 3.5-5 6011255144) ALK PHOS (test code = 81 U/L 34-122 1525462255) ALTv (test code = 13 U/L 5-50 1742-6) AST(SGOT) (test code = 22 U/L 13-40 4516053666) eGFR (test code = mL/min/1.73m2 6335796889) ROBERTO (test code = ROBERTO) Association of [...] tests). Lab Interpretation Abnormal (test code = 60480-9) [facility] 13:12:27 Test Item Value Reference Range Interpretation Comments PHOSPHORUS (test code = 2732144217) 3.8 mg/dL 2.5-5 Lab Interpretation (test code = Normal 38542-1) [facility] WITH [id number] 13:09:25 Test Item Value Reference Range Interpretation [...] RDW-SD (test code = 39.2 fL 38.5-51.6 18014-4) RDW-CV (test code = 14.7 % 12.1-15.4 788-0) PLT (test code = See_Comment H [Automated 777-3) message] The sy stem which generated this result transmitted reference range : 150 - 328 10*3/ ?L. The reference r carlota was not used to interpret this result as normal/abnormal . MPV (test code = 10.1 fL 9.8-13 43922-4) NRBC/100 WBC (test See_Comment [Automat ed code = 1596084397) message] The system which generated this result transmitted reference range : 0.0 - 10.0 /100 WBCs. The refer ence range was not u sed to interpret th is result as normal/abnormal . NRBC x10^3 (test code See_Comment [Auto mated = 1299763620) message] The s ystem which generated this result transmitted reference range : 10*3/?L. The reference range was not used to interpret this result as normal/abnormal . GRAN MAT (NEUT) % 46.1 % (test code = 770-8) IMM GRAN % (test code 0.10 % = 6199328244) LYMPH % (test code = 33.9 % 736-9) MONO % (test code = 11.8 % 5905-5) EOS % (test code = 6.3 % 713-8) BASO % (test code = 1.8 % 706-2) GRAN MAT x10^3(ANC) 3.27 10*3/uL 1.99-6.95 (test code = 2781720940) IMM GRAN x10^3 (test 0-0.06 code = 7138207678) LYMPH x10^3 (test code 2.41 10*3/uL 1.09-3.23 = 731-0) MONO x10^3 (test code 0.84 10*3/uL 0.36-1.02 = 742-7) EOS x10^3 (test code = 0.45 10*3/uL 0.06-0.53 711-2) BASO x10^3 (test code 0.13 10*3/uL 0.01-0.09 H = 704-7) Lab Interpretation Abnormal (test code = 87589-9) [facility] WITH [id number] 13:09:25 Test Item Value Reference Range Interpretation [...] RDW-SD (test code = 39.2 fL 38.5-51.6 49311-5) RDW-CV (test code = 14.7 % 12.1-15.4 788-0) PLT (test code = See_Comment H [Automated 777-3) message] The sy stem which generated this result transmitted reference range : 150 - 328 10*3/ ?L. The reference r carlota was not used to interpret this result as normal/abnormal . MPV (test code = 10.1 fL 9.8-13 59744-0) NRBC/100 WBC (test See_Comment [Automat ed code = 7775909045) message] The system which generated this result transmitted reference range : 0.0 - 10.0 /100 WBCs. The refer ence range was not u sed to interpret th is result as normal/abnormal . NRBC x10^3 (test code See_Comment [Auto mated = 0656632462) message] The s ystem which generated this result transmitted reference range : 10*3/?L. The reference range was not used to interpret this result as normal/abnormal . GRAN MAT (NEUT) % 46.1 % (test code = 770-8) IMM GRAN % (test code 0.10 % = 7132503410) LYMPH % (test code = 33.9 % 736-9) MONO % (test code = 11.8 % 5905-5) EOS % (test code = 6.3 % 713-8) BASO % (test code = 1.8 % 706-2) GRAN MAT x10^3(ANC) 3.27 10*3/uL 1.99-6.95 (test code = 0193460188) IMM GRAN x10^3 (test 0-0.06 code = 8323026464) LYMPH x10^3 (test code 2.41 10*3/uL 1.09-3.23 = 731-0) MONO x10^3 (test code 0.84 10*3/uL 0.36-1.02 = 742-7) EOS x10^3 (test code = 0.45 10*3/uL 0.06-0.53 711-2) BASO x10^3 (test code 0.13 10*3/uL 0.01-0.09 H = 704-7) Lab Interpretation Abnormal (test code = 99730-2) [facility] / [id number] 13:06:44 Test Item Value Reference Range Interpretation Comments PROTIME PATIENT (test See_Comment H [Auto mated message] code = 5964-2) The system [employer] generated this result transmitted ref erence range: 12.0 - 1 4.7 Seconds. The reference range was not used to int erpret this result as normal/abnormal . INR (test code = 6301-6) Nor mal INR <1.1; Warfarin Therap eutic range 2.0 to 3. 0 or 2.5 to 3.5, dep ending upon the indica tions. Lab Interpretation (test Abnormal code = 89262-3) [facility] / [id number] 13:06:44 Test Item Value Reference Range Interpretation Comments PROTIME PATIENT (test See_Comment H [Auto mated message] code = 5964-2) The system [employer] generated this result transmitted ref erence range: 12.0 - 1 4.7 Seconds. The reference range was not used to int erpret this result as normal/abnormal . INR (test code = 6301-6) Nor mal INR <1.1; Warfarin Therap eutic range 2.0 to 3. 0 or 2.5 to 3.5, dep ending upon the indica tions. Lab Interpretation (test Abnormal code = 08492-3) [facility] [id number] 02:59:10 Test Item Value Reference Range Interpretation Comments ESR (test code = See_Comment H [Automated message] 67382-9) The system [employer] generated this result transmitted ref erence range: 0 - 10 m m/HR. The reference r carlota was not used to interpret this result as normal/abnor mal. Lab Interpretation (test Abnormal code = 54780-6) [facility] [id number] 02:59:10 Test Item Value Reference Range Interpretation Comments ESR (test code = See_Comment H [Automated message] 99769-2) The system [employer] generated this result transmitted ref erence range: 0 - 10 m m/HR. The reference r carlota was not used to interpret this result as normal/abnor mal. Lab Interpretation (test Abnormal code = 57998-6) [facility] (A1C)2022-05-12 02:20:40 Test Item Value Reference Range Interpretation Comments HGB A1C (test code = 6.1 % 4-5.7 H 4548-4) ROBERTO (test code = ROBERTO) Reference RangesNormal: <5.7%Prediabetes: 5.7 - 6.4%Diabetes: > 6.5% Lab Interpretation (test Abnormal code = 72102-3) [facility] (A1C)2022-05-12 02:20:40 Test Item Value Reference Range Interpretation Comments HGB A1C (test code = 6.1 % 4-5.7 H 4548-4) ROBERTO (test code = ROBERTO) Reference RangesNormal: <5.7%Prediabetes: 5.7 - 6.4%Diabetes: > 6.5% Lab Interpretation (test Abnormal code = 32032-7) [facility]OL[facility] (68743)2022-05-11 19:45:12 Test Item Value Reference Range Interpretation Comments NA (test code = 139 mmol/L 135-145 7870406091) K (test code = 4.1 mmol/L 3.5-5 2453688766) CL (test code = 105 mmol/L 98-108 6773574600) CO2 TOTAL (test code 24 mmol/L 23-31 = 6331578453) AGAP (test code = 2-16 1380170567) BUN (test code = 8 mg/dL 7-23 7767599621) GLUCOSE (test code = 84 mg/dL 70-110 5189723459) CREATININE (test code 0.93 mg/dL 0.6-1.25 = 4453387253) TOTAL BILI (test code 0.3 mg/dL 0.1-1.1 = 9867879103) CALCIUM (test code = 9.4 mg/dL 8.6-10.6 4399955157) T PROTEIN (test code 7.3 g/dL 6.3-8.2 = 3888380406) ALBUMIN (test code = 4.0 g/dL 3.5-5 4179749038) ALK PHOS (test code = 85 U/L 34-122 9791071401) ALTv (test code = 14 U/L 5-50 1742-6) AST(SGOT) (test code 21 U/L 13-40 = 6499798267) eGFR (test code = mL/min/1.73m2 5626833095) ROBERTO (test code = ROBERTO) Association of [...] or urine or abnormalities in imaging tests). [facility]. METABOLIC PANEL (54742)2022-05-11 19:45:12 Test Item Value Reference Range Interpretation Comments NA (test code = 139 mmol/L 135-145 4953877635) K (test code = 4.1 mmol/L 3.5-5 3991125211) CL (test code = 105 mmol/L 98-108 5094949430) CO2 TOTAL (test code 24 mmol/L 23-31 = 6375485606) AGAP (test code = 2-16 0755232589) BUN (test code = 8 mg/dL 7-23 4023440173) GLUCOSE (test code = 84 mg/dL 70-110 9758273545) CREATININE (test code 0.93 mg/dL 0.6-1.25 = 7790326066) TOTAL BILI (test code 0.3 mg/dL 0.1-1.1 = 9181453109) CALCIUM (test code = 9.4 mg/dL 8.6-10.6 5503631028) T PROTEIN (test code 7.3 g/dL 6.3-8.2 = 2262947035) ALBUMIN (test code = 4.0 g/dL 3.5-5 2645922442) ALK PHOS (test code = 85 U/L 34-122 0796236383) ALTv (test code = 14 U/L 5-50 2-6) AST(SGOT) (test code 21 U/L 13-40 = 5836137250) eGFR (test code = mL/min/1.73m2 6960794822) ROBERTO (test code = ROBERTO) Association of [...] or urine or abnormalities in imaging tests). [facility] 19:44:31 Test Item Value Reference Range Interpretation Comments LIPASE (test code = 7651591209) 116 U/L 0-220 Lab Interpretation (test code = Normal 60095-9) [facility] 19:44:31 Test Item Value Reference Range Interpretation Comments LIPASE (test code = 0337436773) 116 U/L 0-220 Lab Interpretation (test code = Normal 92244-8) [facility] WITH [id number] 19:33:50 Test Item Value Reference Range Interpretation [...] RDW-SD (test code = 38.9 fL 38.5-51.6 62549-1) RDW-CV (test code = 14.7 % 12.1-15.4 788-0) PLT (test code = See_Comment H [Automated 777-3) message] The sy stem which generated this result transmitted reference range : 150 - 328 10*3/ ?L. The reference r carlota was not used to interpret this result as normal/abnormal . MPV (test code = 10.1 fL 9.8-13 22433-7) NRBC/100 WBC (test See_Comment [Automat ed code = 0065371252) message] The system which generated this result transmitted reference range : 0.0 - 10.0 /100 WBCs. The refer ence range was not u sed to interpret th is result as normal/abnormal . NRBC x10^3 (test code See_Comment [Auto mated = 9260287733) message] The s ystem which generated this result transmitted reference range : 10*3/?L. The reference range was not used to interpret this result as normal/abnormal . GRAN MAT (NEUT) % 50.3 % (test code = 770-8) IMM GRAN % (test code 0.00 % = 3363610795) LYMPH % (test code = 28.7 % 736-9) MONO % (test code = 13.9 % 5905-5) EOS % (test code = 5.3 % 713-8) BASO % (test code = 1.8 % 706-2) GRAN MAT x10^3(ANC) 3.14 10*3/uL 1.99-6.95 (test code = 8925309757) IMM GRAN x10^3 (test 0-0.06 code = 6548023308) LYMPH x10^3 (test code 1.79 10*3/uL 1.09-3.23 = 731-0) MONO x10^3 (test code 0.87 10*3/uL 0.36-1.02 = 742-7) EOS x10^3 (test code = 0.33 10*3/uL 0.06-0.53 711-2) BASO x10^3 (test code 0.11 10*3/uL 0.01-0.09 H = 704-7) Lab Interpretation Abnormal (test code = 88562-7) [facility] WITH [id number] 19:33:50 Test Item Value Reference Range Interpretation [...] RDW-SD (test code = 38.9 fL 38.5-51.6 05549-9) RDW-CV (test code = 14.7 % 12.1-15.4 788-0) PLT (test code = See_Comment H [Automated 777-3) message] The sy stem which generated this result transmitted reference range : 150 - 328 10*3/ ?L. The reference r carlota was not used to interpret this result as normal/abnormal . MPV (test code = 10.1 fL 9.8-13 70999-7) NRBC/100 WBC (test See_Comment [Automat ed code = 1508556157) message] The system which generated this result transmitted reference range : 0.0 - 10.0 /100 WBCs. The refer ence range was not u sed to interpret th is result as normal/abnormal . NRBC x10^3 (test code See_Comment [Auto mated = 5190974390) message] The s ystem which generated this result transmitted reference range : 10*3/?L. The reference range was not used to interpret this result as normal/abnormal . GRAN MAT (NEUT) % 50.3 % (test code = 770-8) IMM GRAN % (test code 0.00 % = 1897450146) LYMPH % (test code = 28.7 % 736-9) MONO % (test code = 13.9 % 5905-5) EOS % (test code = 5.3 % 713-8) BASO % (test code = 1.8 % 706-2) GRAN MAT x10^3(ANC) 3.14 10*3/uL 1.99-6.95 (test code = 7953718961) IMM GRAN x10^3 (test 0-0.06 code = 1283325606) LYMPH x10^3 (test code 1.79 10*3/uL 1.09-3.23 = 731-0) MONO x10^3 (test code 0.87 10*3/uL 0.36-1.02 = 742-7) EOS x10^3 (test code = 0.33 10*3/uL 0.06-0.53 711-2) BASO x10^3 (test code 0.11 10*3/uL 0.01-0.09 H = 704-7) Lab Interpretation Abnormal (test code = 70153-6) [facility] - ONCE [id number] 03:41:38 Test Item Value Reference Range Interpretation Comments ABO & RH (test code O Positive Performe d at [facility] = 20) Laboratory Serv [facility] [place], [place] [address]Toll Free: [phone] A No. [id number] IAT (test code = Negative Performed a t [facility] 1185) Laboratory [facility] [place], [place] [address]Toll Free: [phone] A No. [id number] [facility]OLIC [facility] (29780)2022-05-10 03:15:48 Test Item Value Reference Range Interpretation Comments NA (test code = 135 mmol/L 135-145 8149294288) K (test code = 4.2 mmol/L 3.5-5 7792529340) CL (test code = 104 mmol/L 98-108 6871263406) CO2 TOTAL (test code = 23 mmol/L 23-31 7892795987) AGAP (test code = 2-16 9313329378) BUN (test code = 9 mg/dL 7-23 3919557751) GLUCOSE (test code = 100 mg/dL 70-110 2695962339) CREATININE (test code = 0.89 mg/dL 0.6-1.25 4436667745) TOTAL BILI (test code = 0.3 mg/dL 0.1-1.8 7289036235) CALCIUM (test code = 8.5 mg/dL 8.6-10.6 L 4434536636) T PROTEIN (test code = 6.6 g/dL 6.3-8.2 5347270766) ALBUMIN (test code = 3.6 g/dL 3.5-5 2783620515) ALK PHOS (test code = 80 U/L 34-122 9376974980) ALTv (test code = 13 U/L 5-50 2-6) AST(SGOT) (test code = 22 U/L 13-40 6524592276) eGFR (test code = mL/min/1.73m2 4518865047) ROBERTO (test code = ROBERTO) Association of [...] tests). Lab Interpretation Abnormal (test code = 19508-2) [facility] 03:15:08 Test Item Value Reference Range Interpretation Comments LIPASE (test code = 8198503773) 105 U/L 0-220 Lab Interpretation (test code = Normal 71333-1) [facility] WITH [id number] 03:02:08 Test Item Value Reference Range Interpretation [...] (test code = 38.0 fL 38.5-51.6 L 95604-5) RDW-CV (test code = 14.9 % 12.1-15.4 788-0) PLT (test code = See_Comment H [Automated 777-3) message] The sy stem which generated this result transmitted reference range : 150 - 328 10*3/ ?L. The reference r carlota was not used to interpret this result as normal/abnormal . MPV (test code = 9.8 fL 9.8-13 98035-0) NRBC/100 WBC (test See_Comment [Automat ed code = 0410414255) message] The system which generated this result transmitted reference range : 0.0 - 10.0 /100 WBCs. The refer ence range was not u sed to interpret th is result as normal/abnormal . NRBC x10^3 (test code See_Comment [Auto mated = 0551145538) message] The s ystem which generated this result transmitted reference range : 10*3/?L. The reference range was not used to interpret this result as normal/abnormal . GRAN MAT (NEUT) % 51.8 % (test code = 770-8) IMM GRAN % (test code 0.40 % = 1419798467) LYMPH % (test code = 29.9 % 736-9) MONO % (test code = 10.2 % 5905-5) EOS % (test code = 5.8 % 713-8) BASO % (test code = 1.9 % 706-2) GRAN MAT x10^3(ANC) 4.17 10*3/uL 1.99-6.95 (test code = 2575680946) IMM GRAN x10^3 (test 0.03 10*3/uL 0-0.06 code = 7681853674) LYMPH x10^3 (test code 2.41 10*3/uL 1.09-3.23 = 731-0) MONO x10^3 (test code 0.82 10*3/uL 0.36-1.02 = 742-7) EOS x10^3 (test code = 0.47 10*3/uL 0.06-0.53 711-2) BASO x10^3 (test code 0.15 10*3/uL 0.01-0.09 H = 704-7) Lab Interpretation Abnormal (test code = 69257-2) [facility]-REACTIVE [id number] 14:20:24 Test Item Value Reference Range Interpretation Comments CRP (test code = 1.3 mg/dL See_Comment H [Automated message] 9380972814) The system ic h generated this result transmit eunice reference range : <=0.8. The refe rence range was not u sed to interpret th is result as normal/abnormal . Lab Interpretation (test Abnormal code = 74331-7) [facility] METABOLIC PANEL (NA, K, CL, CO2, GLUCOSE, BUN, CREATININE, CA)2022-04-28 11:21:59 Test Item Value Reference Range Interpretation Comments NA (test code = 134 mmol/L 135-145 L 0474341282) K (test code = 3.9 mmol/L 3.5-5 4414731448) CL (test code = 105 mmol/L 98-108 8615625893) CO2 TOTAL (test code = 26 mmol/L 23-31 4572495392) AGAP (test code = 2-16 5443153483) BUN (test code = 5 mg/dL 7-23 L 6318649937) GLUCOSE (test code = 76 mg/dL 70-110 1019520366) CREATININE (test code = 0.88 mg/dL 0.6-1.25 0049451659) CALCIUM (test code = 8.2 mg/dL 8.6-10.6 L 5399031272) eGFR (test code = mL/min/1.73m2 3526969273) ROBERTO (test code = ROBERTO) Association of [...] tests). Lab Interpretation Abnormal (test code = 32201-1) [facility] WITH [id number] 11:21:23 Test Item Value Reference Range Interpretation [...] RDW-SD (test code = 40.4 fL 38.5-51.6 13376-0) RDW-CV (test code = 15.3 % 12.1-15.4 788-0) PLT (test code = See_Comment H [Automated 777-3) message] The sy stem which generated this result transmitted reference range : 150 - 328 10*3/ ?L. The reference r carlota was not used to interpret this result as normal/abnormal . MPV (test code = 9.8 fL 9.8-13 67587-8) NRBC/100 WBC (test See_Comment [Automat ed code = 9049468592) message] The system which generated this result transmitted reference range : 0.0 - 10.0 /100 WBCs. The refer ence range was not u sed to interpret th is result as normal/abnormal . NRBC x10^3 (test code See_Comment [Auto mated = 5865515794) message] The s ystem which generated this result transmitted reference range : 10*3/?L. The reference range was not used to interpret this result as normal/abnormal . GRAN MAT (NEUT) % 51.9 % (test code = 770-8) IMM GRAN % (test code 0.50 % = 1854208491) LYMPH % (test code = 25.7 % 736-9) MONO % (test code = 17.4 % 5905-5) EOS % (test code = 3.2 % 713-8) BASO % (test code = 1.3 % 706-2) GRAN MAT x10^3(ANC) 3.09 10*3/uL 1.99-6.95 (test code = 1548066297) IMM GRAN x10^3 (test 0.03 10*3/uL 0-0.06 code = 5956062664) LYMPH x10^3 (test code 1.53 10*3/uL 1.09-3.23 = 731-0) MONO x10^3 (test code 1.04 10*3/uL 0.36-1.02 H = 742-7) EOS x10^3 (test code = 0.19 10*3/uL 0.06-0.53 711-2) BASO x10^3 (test code 0.08 10*3/uL 0.01-0.09 = 704-7) Lab Interpretation Abnormal (test code = 65715-5) [facility] 11:17:00 Test Item Value Reference Range Interpretation Comments MAGNESIUM (test code = 7919489111) 1.7 mg/dL 1.7-2.4 Lab Interpretation (test code = Normal 00124-8) [facility]ABORH Confirmation (Lab Only)2022-04-27 17:22:22 Test Item Value Reference Range Interpretation Comments ABO & RH (test code O Positive Performe d at [facility] = 20) Laboratory Serv [facility] Blood [facility] [place] [address]Wzca Free: [phone] A No. [id number] [facility]Type [facility] - ONCE [id number] 16:14:13 Test Item Value Reference Range Interpretation Comments ABO & RH (test code O Positive Performe d at [facility] = 20) Laboratory Serv [facility] [place], [place] [address]Toll Free: [phone] A No. [id number] IAT (test code = Negative Performed a t [facility] 1185) Laboratory [facility] [place], [place] [id number] Free: [phone] A No. [id number] [facility] HospitalACTIVATED PARTIAL THRMPLAS [id number] 16:10:24 Test Item Value Reference Range Interpretation Comments APTT Patient (test See_Comment [Automat ed code = 3173-2) message] The system which generated this result transmitted reference range : 23 - 38 Seconds . The reference range was not used to interpr et this result as normal/abnormal . ROBERTO (test code = ROBERTO) The [facility] patient population mean normal value for aPTT is 30 seconds. Lab Interpretation Normal (test code = 57048-5) [facility] / [id number] 16:08:28 Test Item Value Reference Range Interpretation [...] tions. Lab Interpretation (test Normal code = 47252-4) [facility] [id number] 15:53:25 Test Item Value Reference Interpretation Comments Range TROPONIN I (test See_Comment [Automated code = 3611593297) message] The system which generated this result [...] biotin. Lab Interpretation Normal (test code = 12442-3) [facility]. METABOLIC PANEL (55443)2022-04-27 15:42:03 Test Item Value Reference Range Interpretation Comments NA (test code = 139 mmol/L 135-145 [id number]) K (test code = 4.1 mmol/L 3.5-5 7993591895) CL (test code = 105 mmol/L 98-108 3922450077) CO2 TOTAL (test code = 27 mmol/L 23-31 0796598191) AGAP (test code = 2-16 2856425308) BUN (test code = 6 mg/dL 7-23 L 0641624943) GLUCOSE (test code = 96 mg/dL 70-110 3622219890) CREATININE (test code = 0.87 mg/dL 0.6-1.25 6782792627) TOTAL BILI (test code = 0.3 mg/dL 0.1-1.6 1994050413) CALCIUM (test code = 9.1 mg/dL 8.6-10.6 8176863967) T PROTEIN (test code = 6.9 g/dL 6.3-8.2 9430319114) ALBUMIN (test code = 3.6 g/dL 3.5-5 9693561315) ALK PHOS (test code = 89 U/L 34-122 9574720905) ALTv (test code = 12 U/L 5-50 1742-6) AST(SGOT) (test code = 17 U/L 13-40 2492698772) eGFR (test code = mL/min/1.73m2 5879729089) ROBERTO (test code = ROBERTO) Association of [...] tests). Lab Interpretation Abnormal (test code = 73866-6) [facility] Test Item Value Reference Range Interpretation Comments MAGNESIUM (test code = 2659018167) 1.9 mg/dL 1.7-2.4 Lab Interpretation (test code = Normal 60714-0) [facility] Test Item Value Reference Range Interpretation Comments LIPASE (test code = 6188885109) 115 U/L 0-220 Lab Interpretation (test code = Normal 95488-9) [facility] WITH [id number] 15:32:42 Test Item Value Reference Range Interpretation Comments WBC (test code = See_Comment [Automated 9790-2) message] The sy stem which generated this [...] RDW-SD (test code = 39.8 fL 38.5-51.6 25079-7) RDW-CV (test code = 15.1 % 12.1-15.4 788-0) PLT (test code = See_Comment H [Automated 777-3) message] The sy stem which generated this result transmitted reference range : 150 - 328 10*3/ ?L. The reference r carlota was not used to interpret this result as normal/abnormal . MPV (test code = 9.5 fL 9.8-13 L 34276-8) NRBC/100 WBC (test See_Comment [Automat ed code = 5471757874) message] The system which generated this result transmitted reference range : 0.0 - 10.0 /100 WBCs. The refer ence range was not u sed to interpret th is result as normal/abnormal . NRBC x10^3 (test code See_Comment [Auto mated = 4181350117) message] The s ystem which generated this result transmitted reference range : 10*3/?L. The reference range was not used to interpret this result as normal/abnormal . GRAN MAT (NEUT) % 51.9 % (test code = 770-8) IMM GRAN % (test code 0.30 % = 8609047378) LYMPH % (test code = 31.1 % 736-9) MONO % (test code = 13.0 % 5905-5) EOS % (test code = 2.5 % 713-8) BASO % (test code = 1.2 % 706-2) GRAN MAT x10^3(ANC) 3.35 10*3/uL 1.99-6.95 (test code = 4681569290) IMM GRAN x10^3 (test 0-0.06 code = 6124139252) LYMPH x10^3 (test code 2.01 10*3/uL 1.09-3.23 = 731-0) MONO x10^3 (test code 0.84 10*3/uL 0.36-1.02 = 742-7) EOS x10^3 (test code = 0.16 10*3/uL 0.06-0.53 711-2) BASO x10^3 (test code 0.08 10*3/uL 0.01-0.09 = 704-7) Lab Interpretation Abnormal (test code = 56154-8) [facility]- [facility] CHEST 1 [id number] 08:28:00Patient Name: ALEX BURROUGHS Unit No: [id number] EXAMS: CPT: [id number] XR CHEST 1 V 10930 History: Chest pain CHEST 1 VIEW FINDINGS: [...] (0831) BATCH NO: N/A Name: ALEX BURROUGHS [facility] Phys: Sky Starks MD [address] [place] : 1975 Age: 44 Sex: [place] [address] Loc: N.ERS Exam Date: 05/23/2019 Status: REG [facility]: FAX: PAGE 1 Signed [id number] 07:18:00 Test Item Value Reference Range Interpretation Comments TROPONIN-I (test code = TROPI) <0.020 ng/mL 0.000-0.034 N BASIC METABOLIC [id number] 07:14:00 Test Item Value Reference Range Interpretation [...] mg/dL 8.5-10.5 N = CA) CBC W/AUTO [id number] 07:10:00 Test Item Value Reference Range Interpretation [...]
[2022-08-08] MEDS ORDERED: ONDANSETRON 4 MG/2 ML VIAL ONE (23:53)
[2022-08-08] MEDS ORDERED: MORPHINE 4 MG/ML SYR ONE (23:53)
[2022-08-08] MEDS ORDERED: NA CHLORIDE 0.9% 1,000 ML ONE (23:53)
[2022-08-09 00:50] LABS: Urine Blood Negative (Negative); Urine Glucose Negative (Negative); Urine Protein Negative (Negative); Urine Specific Gravity 1.025 (1.005-1.030); Urine pH 5.5 (5.0-7.0)
[2022-08-09 01:02] LABS: Albumin 3.8 g/dL (3.4-5.0); Bilirubin Total 0.3 mg/dL (0.2-1.0); Potassium 3.6 mmol/L (3.5-5.1); Protein, Total 7.9 g/dL (6.4-8.2)
[2022-08-09] MEDS ORDERED: DIPHENHYDRAMINE 50 MG/ML VIAL ONE (01:06)
[2022-08-09 01:19] LABS: Absolute Lymphocytes (CBC) 2.5 K/uL (0.7-4.9); Hematocrit 38.6 % (39.6-49.0); Lymphocytes % 22.1 % (15.3-44.8); MCV 70.2 fL (80-100); MPV 8.5 fL (7.6-11.3); RBC Red Blood Cell Count 5.51 M/uL (4.33-5.43)
[2022-08-09 01:47] LABS: Urine Bacteria None Seen /HPF (<20); Urine Mucus Slight /HPF (None Seen); Urine RBC <5 /HPF (None Seen)
[2022-08-09 02:21] LABS: Anisocytosis 1+; Blood Morphology Comment NOTED (NOT SEEN); Burr Cells 2+; Platelet Estimate ADEQ; White Blood Cell Scan OK (OK)
--- NOTE | 2022-08-09 03:35 | ER ---
Nurse's Notes [facility] Name: Wicho Weeks Age: 47 yrs Sex: Male : 1975 Arrival Date: 08/08/2022 Time: 20:36 Bed 2 Private MD: Diagnosis: Indeterminate colitis Presentation: 08/08 20:58 Chief complaint: Patient states: " I'm in a lot of pain and started having blood in my vc1 poop yesterday. I do have a history of Colitis". Coronavirus screen: Vaccine status: Patient reports being unvaccinated. At this time, the client does not indicate any symptoms associated with coronavirus-19. Ebola Screen: No symptoms or risks identified at this time. Initial Sepsis Screen: Does the patient meet any 2 criteria? No. Patient's initial sepsis screen is negative. Does the patient have a suspected source of infection? No. Patient's initial sepsis screen is negative. Risk Assessment: Do you want to hurt yourself or someone else? Patient reports no desire to harm self or others. Onset of symptoms was August 07, 2021. 20:58 Method Of Arrival: Ambulatory 1 20:58 Acuity: DRE 3 vc1 Triage Assessment: 21:03 General: Appears in no apparent distress. uncomfortable. General: Behavior is calm, vc1 cooperative, appropriate for age. Pain: Complains of pain in abdomen Pain does not radiate. EENT: No deficits noted. Neuro: Level of Consciousness is awake, alert, obeys commands, Oriented to person, place, time, situation, Appropriate for age. Cardiovascular: No deficits noted. Respiratory: Airway is patent Respiratory effort is even, unlabored, Respiratory pattern is regular, symmetrical. GI: Reports lower abdominal pain, upper abdominal pain, bloody stool, intolerance of food, Pain is 8 out of 10 on a pain scale. : No deficits noted. No signs and/or symptoms were reported regarding the genitourinary system. Derm: No deficits noted. No signs and/or symptoms reported regarding the dermatologic system. Musculoskeletal: No deficits noted. No signs and/or symptoms reported regarding the musculoskeletal system. Historical: - Allergies: 21:02 No Known Allergies; vc1 - PMHx: 21:02 Chronic Abdominal Pain; Colitis; GI Bleed; vc1 - PSHx: 21:02 Rectal abscess removal; vc1 - Immunization history:: Client reports having NOT received the Covid vaccine. - Social history:: Smoking status: Patient denies any tobacco usage or history of. Screenin:53 [facility] ED Fall Risk Assessment (Adult) History of falling in the last 3 months, tw5 including since admission No falls in past 3 months (0 pts). Abuse screen: Denies threats or abuse. Denies injuries from another. Nutritional screening: No deficits noted. Tuberculosis screening: No symptoms or risk factors identified. Assessment: 23:53 General: Reports "I started to have pain in my stomach and diarrhea with blood when I tw5 went to the restroom." Patient states "The blood is bright. I had surgery last year and it hurts a lot when I have diarrhea.". Neuro: Level of Consciousness is awake, alert, obeys commands, Oriented to person, place, time, situation. Respiratory: Airway is patent Trachea midline Respiratory effort is even, unlabored. GI: Bowel sounds present X 4 quads. Abdomen is tender to palpation in right lower quadrant. Derm: Skin is intact, is healthy with good turgor, Skin is clammy, Skin is pale. 08/09 01:06 Reassessment: Patient appears in no apparent distress at this time. No changes from ll3 previously documented assessment. Patient and/or family updated on plan of care and expected duration. Pain level reassessed. Pain: Pain currently is 7 out of 10 on a pain scale. 02:16 Reassessment: Patient and/or family updated on plan of care and expected duration. Pain ll3 level reassessed. Patient is alert, oriented x 3, equal unlabored respirations, skin warm/dry/pink. States pain is 3/10. Vital Signs: 08/08 20:58 BP 142 / 100; Pulse 89; Resp 18; Pulse Ox 98% ; Weight 90.72 kg; Height 5 ft. 9 in. vc1 (175.26 cm); Pain 10/10; 23:52 BP 144 / 100; Pulse 62; Resp 18; Temp 97.8; Pulse Ox 100% ; Weight 90.72 kg; Height 5 tw5 ft. 9 in. (175.26 cm); Pain 10/10; 08/09 01:06 BP 165 / 106; Pulse 63; Resp 18; Pulse Ox 100% on R/A; ll3 02:16 BP 139 / 92; Pulse 65; Resp 20; Pulse Ox 97% on R/A; Pain 3/10; ll3 03:30 BP 119 / 73; Pulse 64; Resp 17; Pulse Ox 96% on R/A; ll3 04:30 BP 125 / 67; Pulse 61; Resp 20; Pulse Ox 100% on R/A; ll3 08/08 23:52 Body Mass Index 29.53 (90.72 kg, 175.26 cm) tw5 ED Course: 08/08 20:36 Patient arrived in ED. mr 20:56 Kenny Mccullough PA is PHCP. cp 20:56 Kenny Valenzuela MD is Attending Physician. cp 21:02 Triage completed. vc1 21:04 Arm band placed on right wrist. vc1 23:48 Reny Gold is Primary Nurse. tw5 23:53 Patient has correct armband on for positive identification. Placed in gown. Bed in low tw5 position. Call light in reach. Side rails up X 1. Client placed on continuous cardiac and pulse oximetry monitoring. NIBP monitoring applied. Door closed. Noise minimized. Lights dimmed. Warm blanket given. Verbal reassurance given. 23:53 Initial lab(s) drawn, by me, sent to lab. Inserted saline lock: 20 gauge in right tw5 antecubital area, using aseptic technique. Blood collected. 08/09 00:06 CMP Sent. tw5 00:06 Lipase Sent. tw5 00:06 CBC with Diff Sent. tw5 00:48 Urine Microscopic Only Sent. ll3 02:38 CT Abd/Pelvis - IV Contrast Only In Process Unspecified. EDMS 03:33 Thang Herrmann MD is Referral Physician. cp 04:58 No provider procedures requiring assistance completed. IV discontinued, intact, ll3 bleeding controlled, No redness/swelling at site. Pressure dressing applied. Administered Medications: 00:05 Drug: Zofran (Ondansetron) 4 mg Route: IVP; Site: right antecubital; tw5 01:03 Follow up: Response: No adverse reaction tw5 00:06 Drug: NS 0.9% 1000 ml Route: IV; Rate: 1 bolus; Site: right antecubital; tw5 01:03 Follow up: Response: No adverse reaction; IV Status: Completed infusion; IV Intake: tw5 1000ml 00:06 Drug: morphine 4 mg Route: IVP; Infused Over: 4 mins; Site: right antecubital; tw5 01:03 Follow up: Response: No adverse reaction; Pain is decreased; RASS: Alert and Calm (0) tw5 01:06 Drug: Benadryl (diphenhydrAMINE) 25 mg Route: IVP; Site: right antecubital; ll3 04:58 Follow up: Response: No adverse reaction; Marked relief of symptoms ll3 03:42 Drug: SOLU-Medrol (methylPrednisoLONE) 125 mg Route: IVP; Site: right antecubital; ll3 04:57 Follow up: Response: No adverse reaction ll3 03:56 Drug: Cipro (ciprofloxacin) 500 mg Route: PO; ll3 04:57 Follow up: Response: No adverse reaction ll3 03:56 Drug: metroNIDAZOLE 500 mg Volume: 100 ml; Route: IVPB; Infused Over: 30 mins; Site: ll3 right antecubital; 04:57 Follow up: Response: No adverse reaction; IV Status: Completed infusion; IV Intake: ll3 100ml Medication: 08/08 23:53 VIS not applicable for this client. tw5 Intake: 08/09 01:03 IV: 1000ml; Total: 1000ml. tw5 04:57 IV: 100ml; Total: 1100ml. ll3 Outcome: 03:34 Discharge ordered by . cp 04:58 Discharged to home ambulatory. ll3 04:58 Condition: stable 04:58 Discharge instructions given to patient, Instructed on discharge instructions, follow up and referral plans. medication usage, Demonstrated understanding of instructions, follow-up care, medications, Prescriptions given X 5 05:01 Patient left the ED. ll3 Signatures: Dispatcher [employer] EDDE Adenike العلي Kenny Kaufman PA PA cp Wood, Tiffany tw5 Verito Flores RN RN ll3 Joselin Meier RN RN vc1
--- NOTE | 2022-08-09 03:35 | EDPHYS ---
Physician Documentation [facility] Name: Wicho Weeks Age: 47 yrs Sex: Male : 1975 Arrival Date: 08/08/2022 Time: 20:36 Bed 2 Private MD: Kenny Mullen HPI: 08/09 00:10 This 47 yrs old Male presents to ER via Ambulatory with complaints of cp Abdominal Pain. 00:10 The patient presents with abdominal pain mid abdomen. cp 00:10 Onset: The symptoms/episode began/occurred yesterday. cp 00:10 Associated signs and symptoms: Pertinent positives: blood in stools, diarrhea, nausea, cp Pertinent negatives: fever, vomiting. The patient has experienced similar episodes in the past, chronically, Patient reports history of colitis. Reports having GI appointment later this month. Historical: - Allergies: 08/08 21:02 No Known Allergies; vc1 - PMHx: 21:02 Chronic Abdominal Pain; Colitis; GI Bleed; vc1 - PSHx: 21:02 Rectal abscess removal; vc1 - Immunization history:: Client reports having NOT received the Covid vaccine. - Social history:: Smoking status: Patient denies any tobacco usage or history of. ROS: 08/09 00:15 Constitutional: Negative for body aches, chills, fever, poor PO intake. cp 00:15 Eyes: Negative for injury, pain, redness, and discharge. cp 00:15 Cardiovascular: Positive for cp 00:15 ENT: Negative for drainage from ear(s), ear pain, sore throat, difficulty swallowing, cp difficulty handling secretions. 00:15 Respiratory: Negative for cough, shortness of breath, wheezing. 00:15 Abdomen/GI: Positive for abdominal pain, nausea, diarrhea, blood in stool, Negative for constipation. 00:15 Neuro: Negative for altered mental status, dizziness, headache, syncope, weakness. 00:15 All other systems are negative. Exam: 00:20 Constitutional: The patient appears in no acute distress, alert, awake, non-toxic, well cp developed, well nourished. 00:20 Head/Face: Normocephalic, atraumatic. cp 00:20 Eyes: Periorbital structures: appear normal, Conjunctiva: normal, no exudate, no injection, Sclera: no appreciated abnormality, Lids and lashes: appear normal, bilaterally. 00:20 ENT: External ear(s): are unremarkable, Nose: is normal, Mouth: Lips: moist, Oral mucosa: moist, Posterior pharynx: Airway: no evidence of obstruction, patent. 00:20 Chest/axilla: Inspection: normal. 00:20 Cardiovascular: Rate: normal, Rhythm: regular, Edema: is not appreciated, JVD: is not appreciated. 00:20 Respiratory: the patient does not display signs of respiratory distress, Respirations: normal, no use of accessory muscles, no retractions, labored breathing, is not present, Breath sounds: are clear throughout, no decreased breath sounds, no stridor, no wheezing. 00:20 Abdomen/GI: Inspection: abdomen appears normal, Bowel sounds: active, all quadrants, Palpation: soft, in all quadrants, moderate abdominal tenderness, in all quadrants, rebound tenderness, is not appreciated, involuntary guarding, is not appreciated. 00:20 Back: pain, is absent, ROM is normal. 00:20 Neuro: Orientation: to person, place \T\ time. Mentation: is normal, Motor: moves all fours, strength is normal, Gait: is steady, at a normal pace, without difficulty. Vital Signs: 08/08 20:58 BP 142 / 100; Pulse 89; Resp 18; Pulse Ox 98% ; Weight 90.72 kg; Height 5 ft. 9 in. vc1 (175.26 cm); Pain 10/10; 23:52 BP 144 / 100; Pulse 62; Resp 18; Temp 97.8; Pulse Ox 100% ; Weight 90.72 kg; Height 5 tw5 ft. 9 in. (175.26 cm); Pain 10/10; 08/09 01:06 BP 165 / 106; Pulse 63; Resp 18; Pulse Ox 100% on R/A; ll3 02:16 BP 139 / 92; Pulse 65; Resp 20; Pulse Ox 97% on R/A; Pain 3/10; ll3 03:30 BP 119 / 73; Pulse 64; Resp 17; Pulse Ox 96% on R/A; ll3 04:30 BP 125 / 67; Pulse 61; Resp 20; Pulse Ox 100% on R/A; ll3 08/08 23:52 Body Mass Index 29.53 (90.72 kg, 175.26 cm) tw5 MDM: 08/08 21:04 Patient medically screened. 08/09 03:33 Data reviewed: vital signs, nurses notes, lab test result(s), radiologic studies, CT cp scan. 03:33 Differential diagnosis: bowel obstruction, non-specific abd pain, sepsis, colitis. 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 Response to treatment: the patient's symptoms have markedly improved after treatment, VSS. Pain improved with meds. Patient appears non-toxic. Will discharge to home for continued monitoring. 08/08 21:05 Order name: CBC with Diff; Complete Time: 03:00 cp 08/09 01:41 Interpretation: Normal except: WBC 11.40; RBC 5.51; HGB 12.0; HCT 38.6; MCV 70.2; MCH cp 21.7; MCHC 31.0; RDW 21.4. 08/08 21:05 Order name: CMP; Complete Time: 01:40 cp 08/09 03:00 Interpretation: Reviewed. 08/08 21:05 Order name: Lipase; Complete Time: 01:40 cp 08/08 22:30 Order name: Urine Microscopic Only; Complete Time: 01:55 cp 08/09 00:51 Order name: Urine Dipstick-Ancillary; Complete Time: 01:02 EDHI 08/09 01:24 Order name: CBC Smear Scan; Complete Time: 03:00 EDHI 08/09 01:44 Order name: CT Abd/Pelvis - IV Contrast Only cp 08/08 21:05 Order name: IV Saline Lock; Complete Time: 00:06 cp 08/08 21:05 Order name: Labs collected and sent; Complete Time: 00:00 cp 08/08 22:30 Order name: Urine Dipstick-Ancillary (obtain specimen); Complete Time: 00:48 cp Administered Medications: 00:05 Drug: Zofran (Ondansetron) 4 mg Route: IVP; Site: right antecubital; tw5 01:03 Follow up: Response: No adverse reaction tw5 00:06 Drug: NS 0.9% 1000 ml Route: IV; Rate: 1 bolus; Site: right antecubital; tw5 01:03 Follow up: Response: No adverse reaction; IV Status: Completed infusion; IV Intake: tw5 1000ml 00:06 Drug: morphine 4 mg Route: IVP; Infused Over: 4 mins; Site: right antecubital; tw5 01:03 Follow up: Response: No adverse reaction; Pain is decreased; RASS: Alert and Calm (0) tw5 01:06 Drug: Benadryl (diphenhydrAMINE) 25 mg Route: IVP; Site: right antecubital; ll3 04:58 Follow up: Response: No adverse reaction; Marked relief of symptoms ll3 03:42 Drug: SOLU-Medrol (methylPrednisoLONE) 125 mg Route: IVP; Site: right antecubital; ll3 04:57 Follow up: Response: No adverse reaction ll3 03:56 Drug: Cipro (ciprofloxacin) 500 mg Route: PO; ll3 04:57 Follow up: Response: No adverse reaction ll3 03:56 Drug: metroNIDAZOLE 500 mg Volume: 100 ml; Route: IVPB; Infused Over: 30 mins; Site: ll3 right antecubital; 04:57 Follow up: Response: No adverse reaction; IV Status: Completed infusion; IV Intake: ll3 100ml Disposition Summary: 08/09/22 03:34 Discharge Ordered Location: Home cp Problem: an acute exacerbation cp Symptoms: have improved cp Condition: Stable cp Diagnosis - Indeterminate colitis cp Followup: cp - With: Thang Herrmann MD - When: 1 - 2 days - Reason: Recheck today's complaints Discharge Instructions: - Discharge Summary Sheet cp - Colitis cp Forms: - Medication Reconciliation Form cp - Thank You Letter cp - Antibiotic Education cp - Prescription Opioid Use cp Prescriptions: - Zofran 4 mg Oral Tablet - take 1 tablet by ORAL route every 12 hours As needed; 20 tablet; Refills: 0, cp Product Selection Permitted - Cipro 500 mg Oral Tablet - take 1 tablet by ORAL route every 12 hours for 10 days; 20 tablet; Refills: 0, cp Product Selection Permitted - Metronidazole 500 mg Oral Tablet - take 1 tablet by ORAL route every 8 hours; 30 tablet; Refills: 0, Product cp Selection Permitted - Tramadol 50 mg Oral Tablet - take 1 tablet by ORAL route every 8 hours as needed; 12 tablet; Refills: 0, cp Product Selection Permitted - Medrol (Guillermo) 4 mg Oral Tablets, Dose Pack - take 1 tablet by ORAL route as directed - follow package instructions; 1 cp packet; Refills: 0, Product Selection Permitted Signatures: Dispatcher [employer] EDMS Kenny Mccullough PA PA cp Reny Gold tw5 Verito Flores RN RN ll3 Joselin Meier RN RN vc1 Corrections: (The following items were deleted from the chart) 03:01 01:54 This 47 yrs old Male presents to ER via Ambulatory with complaints of cp Abdominal Pain. cp 03:29 02:00 Constitutional: Negative for body aches, chills, fever, poor PO intake, cp cp
[2022-08-09] MEDS ORDERED: CIPROFLOXACIN HCL 500 MG TAB ONE (03:45)
[2022-08-09] MEDS ORDERED: METRONIDAZOLE 500mg IVPB 500 MG/100 ML BAG IV ONE (03:45)
[2022-08-09] MEDS ORDERED: METHYLPREDNISOLONE 125 MG INJ ONE (03:45)
[2022-08-09 05:31] VITALS: TEMP 97.8
[2022-08-09 05:35] VITALS: BP 125/67; O2SAT 100
--- NOTE | 2022-08-09 14:31 | RAD REPORT ---
EXAM DESCRIPTION: CT - Abdomen Pelvis W Contrast - 08/09/2022 6:39 am CLINICAL HISTORY: Abdomen pain COMPARISON: 04/16/2022 TECHNIQUE: CT of the abdomen and pelvis performed following IV administration of iodinated contras t. This exam was performed according to our departmental dose-optimization program, which includes au tomated exposure control, adjustment of the mA and/or kV according to patient size and/or use of iter ative reconstruction technique. FINDINGS: Lung Bases: Minimal bibasilar subsegmental atelectasis. Bones: Multilevel endplate spondylosis and facet arthropathy. Abdomen: Liver: The liver has normal size and density. No intrahepatic biliary dilatation. Gallbladder: No calcified gallstones. Spleen, Pancreas, and Adrenal Glands: The spleen, pancreas, and adrenal glands are unremarkable. Kidneys: No hydronephrosis or obstructing calculus. Vasculature: The aorta and IVC have normal caliber and position. The portal vein is patent. The pro ximal visceral and renal arteries are patent. Stomach: The stomach and duodenum have normal course. Other: No free intraperitoneal air. No free fluid or lymphadenopathy. Pelvis: Bladder: Urinary bladder is unremarkable. Bowel: No dilated loops of large or small bowel. Intermittent wall thickening of the ascending, germán cending, and sigmoid colon. Appendix: Normal appendix. Pelvis: Prostate is not enlarged. IMPRESSION: Intermittent wall thickening of the ascending, descending, and sigmoid colon. These find ings could be seen with nonspecific colitis. Electronically signed by: Benji Ch 08/09/2022 3:17 AM HOTEL ENGINEER Due to temporary technical issues with the PACS/Fluency reporting system, reports are being signed by the in house radiologists without review as a courtesy to insure prompt reporting. The interpreting radiologist is fully responsible for the content of the report.
== END 2022-08-09 05:01 | disposition home or self-care (01) ==
LOC: ER 20:32
DX: K52.3 Indeterminate colitis (principal)
CPT/HCPCS: 36415; 74177; 80053; 81003; 81015; 83690; 85025; 96361; 96365; 96375; 99284; J1200; J2405; J2930; J7030; Q9967

== ENCOUNTER 2022-08-25 21:05 | Emergency (ER) | payer SELFPAY ==
--- OUTSIDE RECORDS SUMMARY | 2022-08-25 21:11 | XMS REPORT | Continuity of Care Document ---
:1975 Author Organization [facility] t Address [address] [place] [address] Care Team Providers Name Role Phone Dean Higginbotham MD Primary Care Physician [phone] ANA PEACOCK Attending Clinician Unavailable ELLI HARLEY Attending Clinician Unavailable Elli Harley DO Attending Clinician JUSTIN BAPTISTE Attending Clinician Unavailable Justin Baptiste MD Attending Clinician Doctor Unassigned, [place] Attending Clinician Unavailable RAYRAY GAMEZ Attending Clinician [...] Univers stools stools 0-05 ity of 00:00: [address] Obesity Obesity Disease Active 2021-08 Univers (BMI (BMI 0-05 ity of 30-39.9) 30-39.9) 00:00: [address] Proctocoli Proctocoli Disease Active U nivers tis tis 9-21 ity of 00:00: [address] Allergies, Adverse Reactions, Alerts Allergy Allergy Status Severity Reaction(s) Onset Inactive Treating Comm ents Source Name Type Date Date Clinician No Known DA Active U 2018-08 [facility] Allergie 0-17 [facility] 00:00: Health [address] [facility] [address] NO KNOWN Drug Active Univers ALLERGIE Class ity of S [facility] Social History Social Habit Start Date Stop Date Quantity Comments Source History of Passive smoker University of tobacco use [facility] Exposure to 2022-08-14 2022-08-24 Not sure [facility] SARS-CoV-2 00:00:00 14:04:00 [facility] (event) [place] Alcohol intake 2022-08-24 2022-08-24 Ex-drinker [facility] 00:00:00 00:00:00 (finding) [facility] Education 2022-05-11 2022-05-11 21 [facility] 00:00:00 00:00:00 [facility] Tobacco use and 2022-04-27 2022-04-27 Smokeless tobacco Un iversity of exposure 00:00:00 00:00:00 non-user [facility] Sex Ass[birth year] At [birth year] Universit y of 00:00:00 00:00:00 [facility] Smoking Status Start Date Stop Date Source Ex-smoker 2022-04-27 00:00:00 2022-04-27 00:00:00 [facility] Medications Ordered Filled Start Stop Current Ordering Indication Dosage Frequency Signature Comments Components Source Medication Medication Date Date Medication? Clinician (SIG) Name Name ketorolac 2022- No 15mg 15 mg, Unive rs (TORADOL) 08-25 Slow IV ity of injection 01:15: 00:23 Push, [place] 15 mg 00 :00 ONCE, 1 Medical dose, On Branch 08/24/22 at 1915, JANNA iopamidol 2022- No [id number] 105mL 105 mL, Univers (ISOVUE 08-25 Intravenou ity o f 370-500 mL) 01:00: 01:00 s, ONCE, 1 [place] injection 00 :00 dose, On Medica l 105 mL Wed Branch 08/24/22 at 1900, Routine ondansetron 2022- No 4mg 4 mg, Slow Univers (ZOFRAN 08-25 IV Push, ity of (PF)) 00:15: 00:02 ONCE, 1 [place] injection 4 00 :00 dose, On Medi miranda mg Wed Branch 08/24/22 at 1815, JANNA dicyclomine 2022- No 20mg 20 mg, Uni vers (BENTYL) 08-24 Oral, ity of tablet 20 23:00: 23:31 ONCE, 1 [place] mg 00 :00 dose, On Medical Wed Branch 08/24/22 at 1700, JANNA ondansetron 0 Yes [id number] 4mg Take 1 Univers 4 mg 1-18 tablet by ity of disintegrat 00:00: mouth [place] ing tablet 00 every 8 Medica l (eight) Branch hours as needed for Nausea and Vomiting (N/V). dicyclomine 2022-0 Yes [id number] 20mg Take 1 Univers 20 mg 1-18 tablet by ity of tablet 00:00: mouth in [place] 00 the Medical morning Branch and 1 tablet in the evening. morpHINE (4 2021-08- No 4mg 4 mg, Slow Univers mg/mL) 1-27 11-27 IV Push, ity of injection 4 06:00: [...] On Branch 07/02/22 at 2230, JANNA dexamethaso 2021-08 No 10mg 10 mg, Uni vers ne sod phos 09-02 Slow IV ity of PF 04:30: 04:43 Push, [place] injection 00 :00 ONCE, 1 Medical 10 mg dose, On Branch 07/02/22 at 2230, 1 mL predniSONE 2021-08 Yes [id number] Take 1 po Univers 20 mg 1-26 tid x 2 ity of tablet 00:00: days, then 00 take 1 po Medical bid x 3 Branch days, then take 1 po daily x 5 days. predniSONE 2021-08 Yes [id number] Take 1 po Univers 20 mg 1-26 tid x 2 ity of tablet 00:00: days, then [place] 00 take 1 po Medical bid x 3 Branch days, then take 1 po daily x 5 days. famotidine 2021-08- Yes [id number] 20mg Take 1 Univers (PEPCID) 20 09-01 12-12 tablet by it y of mg tablet 00:00: 05:59 mouth in [place] 00 :00 the Medical morning Branch and 1 tablet in the evening. Do all this for 15 days. predniSONE 2021-08- No [id number] Take 1 po Univers 20 mg 09-01 tid x 2 ity of tablet 00:00: 00:00 [place], [place] 00 :[place] 1 po bid x Medical 3 days, Branch then 1 po daily x 5 days famotidine 2021-08- No [id number] 20mg Take 1 Univers (PEPCID) 20 09-01 tablet by it y of mg tablet 00:00: 00:00 mouth in [place] 00 :00 the Medical morning Branch and 1 tablet in the evening. Do all this for 15 days. predniSONE 2021-08- Yes [id number] Take 3 Univers 5 mg tablet 08-22-08 tablets by i ty of 00:00: 05:59 mouth [place] 00 :00 daily for Medical 7 days, Branch THEN 2 tablets daily for 7 days, THEN 1 tablet daily for 7 days. predniSONE 2021-08- Yes [id number] Take 3 Univers 5 mg tablet 08-22-08 tablets by i ty of 00:00: 05:59 mouth [place] 00 :00 daily for Medical 7 days, Branch THEN 2 tablets daily for 7 days, THEN 1 tablet daily for 7 days. predniSONE 2021-08- Yes [id number] Take 3 Univers 5 mg tablet 08-22-08 tablets by i ty of 00:00: 05:59 mouth [place] 00 :00 daily for Medical 7 days, Branch THEN 2 tablets daily for 7 days, THEN 1 tablet daily for 7 days. lactobacill 2021-08- No [id number] .5mg Take 1 Univers us 0-12 02-10 tablet by ity of acidophilus 00:00: 05:59 mouth in [place] 00 :00 the Medical morning Branch for 120 days. lactobacill 2021-08- No [id number] .5mg Take 1 Univers us 0-12 02-10 tablet by ity of acidophilus 00:00: 05:59 mouth in [place] 00 :00 the Medical morning Branch for 120 days. lactobacill 2021-08- No [id number] .5mg Take 1 Univers us 0-12 02-10 tablet by ity of acidophilus 00:00: 05:59 mouth in [place] 00 :00 the Medical morning Branch for 120 days. lactobacill 2021-08- No [id number] .5mg Take 1 Univers us 0-12 02-10 tablet by ity of acidophilus 00:00: 05:59 mouth in [place] 00 :00 the Medical morning Branch for 120 days. predniSONE 2021-08- No [id number] Take 6 Univers 10 mg 0-12 11-17 [...] it y of succ 14:30: s, Q8H, [place] (SOLU-MEDRO 00 First dose Me dical L (PF)) on [facility] Branch injection 05/14/22 at 20 mg 0930, Until Discontinu ed, Routine methylPREDN 2021-08 No 20mg 20 mg, Uni vers ISolone sod 0-08 10-11 Intravenou i ty of succ 14:30: 13:41 s, Q8H, [place] (SOLU-MEDRO 00 :53 First dose Me dical L (PF)) on Sat Branch injection 05/14/22 at 20 mg 0930, Until Discontinu ed, Routine acetaminoph 2021-08 Yes 650mg 650 mg, Un kar en 0-07 Oral, ity of (TYLENOL) 23:05: Q6HPRN, [place] tablet 650 22 Starting Medic al mg on Mon Branch 05/13/22 at 1805, Until Discontinu ed, Routine, Pain (scale 1-3), Temp > 38.5 C acetaminoph 2021-08 Yes 650mg 650 mg, Un kar en 0-07 Oral, ity of (TYLENOL) 23:05: Q6HPRN, [place] tablet 650 22 Starting Medic al mg on Fri Branch 05/13/22 at 1805, Until Discontinu ed, [...] 0-07 Units, ity of (vitamin 14:00: Oral, [place] D3) tablet 00 DAILY, Medical 2,000 Units First dose Br anch on Mon05/13/22 at 0900, Until Discontinu ed, Routine cholecalcif 2021-08 Yes 2000U 2,000 Univ ers niraj 0-07 Units, ity of (vitamin 14:00: Oral, [place] D3) tablet 00 DAILY, Medical 2,000 Units First dose Br anch on Mon05/13/22 at 0900, Until Discontinu ed, Routine ondansetron 2021-08 Yes 4mg 4 mg, Slow Univers (ZOFRAN 0-06 IV Push, ity of (PF)) 22:23: Q6HPRN, [place] injection 4 56 Nausea and Me dical mg Vomiting Branch (N/V), Starting on Yue 05/12/22 at 1723
Do ses of ondansetro n 16 mg and above need to be administer ed via IV piggyback. For Dose >=24mg ECG monitoring is advisable.
ondansetron 2021-08 Yes 4mg 4 mg, Slow Univers (ZOFRAN 0-06 IV Push, ity of (PF)) 22:23: Q6HPRN, [place] injection 4 56 Nausea and Me dical mg Vomiting Branch (N/V), Starting on Yue 05/12/22 at 1723
Do ses of ondansetro n 16 mg and above need to be administer ed via IV piggyback. For Dose >=24mg ECG monitoring is advisable.
peg-electro 2021-08 No 4000mL 4,000 mL, Univers lyte soln 0-06 10-06 Oral, ity of (GOLYTELY) 14:00: 21:08 ONCE, 1 [place] 236-22.74-6 00 :00 dose, On Medi miranda .74 -5.86 Yue Branch gram 05/12/22 at solution 0900, 4,000 mL Routine peg-electro 2021-08 No 4000mL 4,000 mL, Univers lyte soln [...] Until Mon05/13/22 at 1203, Routine NaCl 0.9% 2021-08- No [...] [place] mg 00 :00 dose, On Mon Branch 05/11/22 at 2345, JANNA
Fa culty [...] [place] mg 00 :00 dose, On Mon Branch 05/11/22 at 2345, JANNA
Fa culty [...] CONTINUOUS Medic al , Starting Branch on 05/11/22 at 2245, Until Yue 05/12/22 at 0812, Routine cholestyram 2021-08 Yes 1{packe 1 Packet, Univers ine 0-06 t} Oral, BID, ity of (QUESTRAN) 02:45: First dose [place] 4 gram 00 on Wed Medical packet 1 05/11/22 at [facility] h Packet 2145, Until Discontinu ed, Routine cholestyram 2021-08 Yes 1{packe 1 Packet, Univers ine 0-06 t} Oral, BID, ity of (QUESTRAN) 02:45: First dose [place] 4 gram 00 on Wed Medical packet 1 05/11/22 at [facility] h Packet 2145, Until Discontinu ed, Routine vancomycin 2021-08 No 500mg 500 mg, Un kar (FIRVANQ) 0-06 10-07 Oral, QID, ity of 50 mg/mL 02:45: 17:02 40 doses, [place] oral 00 :41 First dose Medical solution on Wed Branch 500 mg 05/11/22 at 2145, Last dose on 05/21/22 at 1600, Routine
Reason for Anti-Infec tive: Empiric Therapy for Suspected Infection< br>Empiric Therapy Site: Abdominal< br>Duratio n of therapy: 5 days vancomycin 2021-08- No 500mg 500 mg, Un kar (FIRVANQ) 0-06 10-07 Oral, QID, ity of 50 mg/mL [...] 1 Medical 25 mg dose, On Branch 05/11/22 at 1645, STAT diphenhydrA 2021-08 No 25mg 25 mg, Uni vers MINE 0-05 10-05 Slow IV ity of (BENADRYL) 21:45: 21:35 Push, [place] injection 00 :00 ONCE, 1 Medical 25 mg dose, On Branch Mon05/11/22 at 1645, STAT ondansetron 2021-08- No 4mg 4 mg, [...] Mon05/11/22 at 1430, STAT iopamidol 2021-08 No [id number] 75mL 75 mL, Univers (ISOVUE 0-04 10-04 Intravenou ity o f 370-500 mL) 03:45: 03:45 s, ONCE, 1 [place] injection 00 :00 dose, On Medica l 75 mL 05/09/22 at 2245, Routine FENTanyl PF 2021-08 No [...] :00 dose, On Medi miranda mg Mon [place] 05/09/22 at 2115, JANNA ferrous 2021-08 No 325mg Take 325 Univ ers sulfate 325 0-03 10-03 mg by ity of mg (65 mg 20:43: 00:00 mouth in [place] iron) 33 :00 the Medical tablet morning. Branch mesalamine 2021-08- No [id number] 1.2g Take 1 Univers 1.2 gram EC 0-03 10-18 tablet by it y of tablet 00:00: 04:59 mouth [place] 00 :00 daily with Medical breakfast Branch for 14 days. mesalamine 2021-08 No [id number] 1.2g Take 1 Univers 1.2 gram EC 0-03 10-18 tablet by it y of tablet 00:00: 04:59 mouth [place] 00 :00 daily with Medical breakfast Branch for 14 days. mesalamine 2021-08 No [id number] 1.2g Take 1 Univers 1.2 gram EC [...] Take 1 U nivers en with -29 04- tablet by ity of codeine 12:40: 00:00 mouth [place] (TYLENOL-CO 38 :00 every 6 Medic al DEINE #3 (six) Branch ORAL) hours as needed for Pain (scale 7-10). ciprofloxac 2021- No 250mg Take 250 Univers in HCl 250 04-29 09-23 mg by ity of mg tablet [...] 00 on Yue Medical 04/28/22 at Branch 2000, Until Discontinu ed, Routine
team member approving Restricted medication : DARRYN LANDA acetaminoph Yes [id number] 1{tbl} Take 1 Un kar en-codeine 9-23 tablet by ity of (TYLENOL-CO 00:00: mouth [place] DEINE #3) 00 every 6 Medical 300-30 mg (six) Branch tablet hours as needed for Pain (scale 7-10). Indication s: acute pain mesalamine 0 Yes [id number] 1.2g Take 1 U nivers 1.2 gram EC 9-23 tablet by ity of tablet 00:00: mouth [place] 00 daily with Medical breakfast. Branch vancomycin Yes [id number] 125mg Take 1 Univers 125 mg 9-23 capsule by ity of capsule 00:00: mouth 4 00 (four) Medical times Branch daily. mesalamine 0 Yes [id number] 1.2g Take 1 U nivers 1.2 gram EC 9-23 tablet by ity of tablet 00:00: mouth [place] 00 daily with Medical breakfast. Branch vancomycin 0 Yes [id number] 125mg Take 1 Univers 125 mg 9-23 capsule by ity of capsule 00:00: mouth 4 00 (four) Medical times Branch daily. mesalamine Yes [id number] 1.2g Take 1 U nivers 1.2 gram EC 9-23 tablet by ity of tablet 00:00: mouth [place] 00 daily with Medical breakfast. Branch vancomycin Yes [id number] 125mg Take 1 Univers 125 mg 9-23 [...] 7-10). Indication s: acute pain mesalamine Yes [id number] 1.2g Take 1 U nivers 1.2 gram EC 9-23 tablet by ity of tablet 00:00: mouth [place] 00 daily with Medical breakfast. Branch vancomycin Yes [id number] 125mg Take 1 Univers 125 mg 9-23 capsule by ity of capsule 00:00: mouth 4 [place] 00 (four) Medical times Branch daily. mesalamine 2021- No [id number] 1.2g Take 1 Univers 1.2 gram EC 9-23 10-11 tablet by it y of tablet 00:00: 00:00 mouth [place] 00 :00 daily with Medical breakfast. Branch vancomycin 2- No [id number] 125mg Take 1 Univers 125 mg 9-23 [...] Indication s: acute pain vancomycin 2021- No [id number] 125mg Take 1 Univers 125 mg 04-29 capsule by ity of capsule 00:00: 00:00 mouth 4 [place] 00 :00 (four) Medical times Branch daily for 9 days. mesalamine 2021- No [id number] 1.2g Take 1 Univers 1.2 gram EC [...] br>Duratio n of therapy: 5 days vancomycin No 125mg 125 mg, Un kar (FIRVANQ) [...] on Yue Branch 04/28/22 at 1449, Until Mon04/29/22 at 1448, Routine, Pain (scale 7-10) metroNIDAZO 2021-0 202- No 500mg 500 mg, IV Univers LE [...] Itching acetaminoph 0 Yes 1{tbl} 1 tablet, [facility] en-codeine 04-27 Oral, ity of (TYLENOL 23:57: Q4HPRN, [place] #3) 300-30 43 Starting Medic al mg tablet 1 on Mon Branch tablet 04/27/22 at 1857, Until Discontinu ed, Routine, Pain (scale 4-6) enoxaparin 0 Yes 40mg 40 mg, Unive rs (LOVENOX) 04-27 Subcutaneo ity of injection 22:00: [place], DAILY, [place] 40 mg 00 First dose Medical on Mon Branch 04/27/22 at 1700, Until Discontinu ed, Routine cefTRIAXone 0 2021- No 1000mg 1,000 mg, Univers (ROCEPHIN) 04-27 IV ity of 1,000 mg in 20:00: 19:48 [place], [place] NaCl 0.9% 00 :56 Q24H ABX, [...] [place] mg 03 :03 Starting Medical on Mon Branch 04/27/22 at 1353, Until Yue 04/28/22 at 1352, Routine, Pain (scale 7-10) acetaminoph Yes 650mg 650 mg, Un kar en 04-27 Oral, ity of (TYLENOL) 18:52: Q6HPRN, [place] tablet 650 36 Starting Medic al mg on Mon Branch 04/27/22 at 1352, Until Discontinu ed, Routine, Pain (scale 1-3) iopamidol 2021- No [id number] 70mL 70 mL, Univers (ISOVUE 04-27 Intravenou [...] dose, On Medi miranda mg Mon Branch 04/27/22 at 1115, JANNA morpHINE (4 2021- No 4mg 4 mg, Slow Univers mg/mL) 04-27 IV Push, ity of injection 4 16:15: 16:13 ONCE, 1 [place] mg 00 :00 dose, On Medical Mon Branch 04/27/22 at 1115, STAT Vital Signs Vital Name Observation Time Observation Value Comments Source Systolic blood 2022-08-25 01:11:00 148 mm[Hg] Univer sity of pressure [facility] [place] [facility] Diastolic blood 2022-08-25 01:11:00 98 mm[Hg] Unive rsity of pressure [facility] Heart rate 2022-08-25 01:11:00 81 /min Universi ty of [facility] Respiratory rate 2022-08-25 01:11:00 16 /min Univ ersity of [facility] Oxygen saturation in 2022-08-25 01:11:00 99 /min University of Arterial blood by Invaluable Pulse oximetry Branch Body temperature 2022-08-24 20:06:00 36.83 Breann Univ ersity of [facility] Body height 2022-08-24 20:06:00 175.3 cm Universi ty of [facility] Body weight 2022-08-24 20:06:00 90.719 kg Universi ty of [facility] BMI 2022-08-24 20:06:00 29.53 kg/m2 Universi ty of [facility] Systolic blood 2022-07-03 06:00:00 134 mm[Hg] Univer sity of pressure [facility] Diastolic blood 2022-07-03 06:00:00 84 mm[Hg] Unive rsity of [facility] Heart rate 2022-07-03 06:00:00 72 /min Universi ty of [facility] Respiratory rate 2022-07-03 06:00:00 18 /min Univ ersity of [facility] Oxygen saturation in 2022-07-03 06:00:00 95 /min University of Arterial blood by [place] miranda Pulse oximetry Branch Body temperature 2022-07-03 03:50:00 37.39 Breann Univ ersity of [facility] Body height 2022-07-03 03:50:00 175.3 cm Universi ty of [facility] Body weight 2022-07-03 03:50:00 90.719 kg Universi ty of [facility] BMI 2022-07-03 03:50:00 29.53 kg/m2 Universi ty of [facility] Branch Systolic blood 2022-05-17 16:43:00 128 mm[Hg] Univer sity of pressure [place] [facility] Diastolic blood 2022-05-17 16:43:00 72 mm[Hg] Unive rsity of pressure [place] [facility] Heart rate 2022-05-17 16:43:00 58 /min Universi ty of [place] [facility] Body temperature 2022-05-17 16:43:00 35.83 Breann Univ ersity of [place] [facility] Respiratory rate 2022-05-17 16:43:00 18 /min Univ ersity of [place] [facility] Oxygen saturation in 2022-05-17 16:43:00 100 /min University of Arterial blood by [place] Wedding[place] miranda Pulse oximetry Branch Body weight 2022-05-17 09:42:00 87 kg Universi ty of [place] [facility] BMI 2022-05-17 09:42:00 28.32 kg/m2 Universi ty of [place] [facility] Body height 2022-05-11 22:16:00 175.3 cm Universi ty of [place] [facility] Systolic blood 2022-05-13 14:58:00 128 mm[Hg] Univer sity of pressure [place] [facility] Diastolic blood 2022-05-13 14:58:00 80 mm[Hg] Unive rsity of pressure [place] [facility] Heart rate 2022-05-13 14:58:00 86 /min Universi ty of [place] [facility] Body temperature 2022-05-13 14:58:00 37.67 Breann Univ ersity of [place] [facility] Respiratory rate 2022-05-13 14:58:00 18 /min Univ ersity of [place] [facility] Oxygen saturation in 2022-05-13 14:58:00 99 /min University of Arterial blood by [place]ler miranda Pulse oximetry Branch Body weight 2022-05-13 09:27:00 90.992 kg Universi ty [facility] [place] [facility] BMI 2022-05-13 09:27:00 28.32 kg/m2 Universi ty of [place] [facility] Body height 2022-05-11 22:16:00 175.3 cm Universi ty [facility] [place] [facility] Heart rate 2022-05-10 04:12:00 73 /min Universi ty [facility] [place] [facility] Body temperature 2022-05-10 04:12:00 36.5 Breann Univ ersity of [place] [facility] Oxygen saturation in 2022-05-10 04:12:00 97 /min University of Arterial blood by [place] Medi miranda Pulse oximetry Branch Systolic blood 2022-05-10 04:00:00 133 mm[Hg] Univer sity of pressure [facility] Diastolic blood 2022-05-10 04:00:00 79 mm[Hg] [facility] Respiratory rate 2022-05-10 04:00:00 19 /min [facility] Body height 2022-05-10 01:42:00 175.3 cm Universi ty [facility] Body weight 2022-05-10 01:42:00 86.183 kg Universi ty [facility] BMI 2022-05-10 01:42:00 28.06 kg/m2 Universi [facility] Systolic blood 2022-04-29 17:14:00 132 mm[Hg] Univer sity of pressure [facility] Diastolic blood 2022-04-29 17:14:00 98 mm[facility]Hg[facility] 2022-04-29 17:14:00 90 /min [facility] Body temperature 2022-04-29 17:14:00 36.28 Breann [facility] Respiratory rate 2022-04-29 17:14:00 18 /min [facility] Oxygen saturation in 2022-04-29 17:14:00 100 /min [facility] Arterial blood by [facility] Pulse oximetry Branch Body weight 2022-04-28 09:36:[address] [facility] BMI 2022-04-28 09:36:00 28.65 kg/m2 Universi [facility] Body height 2022-04-27 21:57:[address] [facility] Procedures Procedure Date / Time Performing Clinician Source Performed COMP. METABOLIC PANEL 2022-08-24 21:45:00 Elli Harley [facility] ([id number]) [facility] CBC WITH DIFF 2022-08-24 21:45:00 Elli Harley [facility] LACTIC ACID WHOLE BLOOD 2022-08-24 21:45:00 Elli Harley [facility] CONSENT/REFUSAL FOR 2022-08-24 19:59:50 Doctor Unassigned, Unive [facility] DIAGNOSIS AND TREATMENT [place] [facility] [place] COMP. METABOLIC PANEL 2022-07-03 04:42:00 Justin Baptiste [facility] ([id number]) [facility] Branch CBC WITH DIFF 2022-07-03 04:42:00 Justin Baptiste [facility] CONSENT/REFUSAL FOR 2022-07-03 03:35:53 Doctor Unassigned, [facility] DIAGNOSIS AND TREATMENT [place] [facility] [place] BASIC METABOLIC PANEL 2022-05-16 08:42:00 [facility], K, CL, CO2, GLUCOSE, Medica l Branch BUN, CREATININE, CA) CBC WITH DIFF 2022-05-16 08:42:00 Wilman [facility] BASIC METABOLIC PANEL 2022-05-16 08:42:00 [facility] (NA, K, CL, CO2, GLUCOSE, Medica l Branch BUN, CREATININE, CA) CBC WITH DIFF 2022-05-16 08:42[facility] 2022-05-15 09:46:00 [facility] ([facility], K, CL, CO2, GLUCOSE, Medica l Branch BUN, CREATININE, CA) CBC WITH DIFF 2022-05-15 09:46:00 [facility] BASIC METABOLIC PANEL 2022-05-15 09:46:00 [facility] (NA, K, CL, CO2, GLUCOSE, Medica l Branch BUN, CREATININE, CA) CBC WITH DIFF 2022-05-15 09:46:00 [facility] BASIC METABOLIC PANEL 2022-05-14 08:30:00 [facility] (NA, K, CL, CO2, GLUCOSE, Medica l Branch BUN, CREATININE, CA) CBC WITH DIFF 2022-05-14 08:30:00 [facility] BASIC METABOLIC PANEL 2022-05-14 08:30:00 [facility] (NA, K, CL, CO2, GLUCOSE, Medica l Branch BUN, CREATININE, CA) CBC WITH DIFF 2022-05-14 08:30:00 [facility]AM 2022-05-13 16:29:00 Marybel [facility] FLEXIBLE SIGMOIDOSCOPY 2022-05-13 16:08:00 Marybel Sexton [facility] FLEXIBLE SIGMOIDOSCOPY 2022-05-13 16:08:00 Marybel Sexton [facility] FLEXIBLE SIGMOIDOSCOPY 2022-05-13 16:07:35 Ferdinand Kelly [facility] (ENDO) [facility] FLEXIBLE SIGMOIDOSCOPY 2022-05-13 16:07:35 Ferdinand Kelly [facility] (ENDO) [facility] HB ABO GROUPING 2022-05-13 11:11:00 Robin [facility] HB ABO GROUPING 2022-05-13 11:11:00 Robin [facility] BASIC METABOLIC PANEL 2022-05-13 08:57:00 [facility] (NA, K, CL, CO2, GLUCOSE, Medica l Branch BUN, CREATININE, CA) CBC WITH DIFF 2022-05-13 08:57:00 [facility] BASIC METABOLIC PANEL 2022-05-13 08:57:00 Wilman [facility] (NA, K, CL, CO2, GLUCOSE, Medica l Branch BUN, CREATININE, CA) CBC WITH DIFF 2022-05-13 08:57:00 [facility] V[facility] D, 25-[place] 2022-05-12 13:31:00 Robin [facility] VITAMIN D, 25-OH 2022-05-12 13:31:00 Robin [facility] PHOSPHORUS 2022-05-12 12:20:00 Robin eric [facility] MAGNESIUM 2022-05-12 12:20:00 Robin [facility] VITAMIN B12, LEVEL 2022-05-12 12:20:00 Ferdinand Kelly [facility] C-REACTIVE PROTEIN 2022-05-12 12:20:00 Ferdinand Kelly [facility] THYROID STIMULATING 2022-05-12 12:20:00 Ferdinand Kelly [facility] HORMONE [facility] COMP. METABOLIC PANEL 2022-05-12 12:20:00 Ferdinand Kelly [facility] ([id number]) Medical Branch LIPID PANEL (63789)(TOTAL 2022-05-12 12:20:00 Ferdinand Kelly [facility] CHOLESTEROL, Medical Branch TRIGLYCERIDES, HDL) N-TERMINAL PRO-BNP 2022-05-12 12:20:00 Ferdinand Kelly [facility] PHOSPHORUS 2022-05-12 12:20:00 Ferdinand Kelly [facility] MAGNESIUM 2022-05-12 12:20:00 Robin eric [facility] VITAMIN B12, LEVEL 2022-05-12 12:20:00 Robin eric [facility] C-REACTIVE PROTEIN 2022-05-12 12:20:00 Robin eric [facility] THYROID STIMULATING 2022-05-12 12:20:00 Ferdinand Kelly [facility] HORMONE [facility] COMP. METABOLIC PANEL 2022-05-12 12:20:00 Ferdinand Kelly [facility] ([id number]) Medical Branch LIPID PANEL (79518)(TOTAL 2022-05-12 12:20:00 Ferdinand Kelly [facility] CHOLESTEROL, [facility] TRIGLYCERIDES, HDL) N-TERMINAL PRO-BNP 2022-05-12 12:20:00 Ferdinand Kelly [facility] PROTHROMBIN TIME / INR 2022-05-12 12:19:00 Ferdinand Kelly [facility] PROTHROMBIN TIME / INR 2022-05-12 12:19:[address] CBC WITH DIFF 2022-05-12 12:18:00 Robin eric [facility] CBC WITH DIFF 2022-05-12 12:18:00 Robin [facility] XR KUB 2022-05-12 05:58:38 Robin [facility] XR KUB 2022-05-12 05:58:38 Robin [facility] SEDIMENTATION RATE 2022-05-12 02:23:00 Robin [facility] CALPROTECTIN, FECAL 2022-05-12 02:23:[address] [facility] SEDIMENTATION RATE 2022-05-12 02:23:00 Robin [facility] CALPROTECTIN, FECAL 2022-05-12 02:23:00 Robin [facility] OCCULT (GUAIAC) BLOOD 2022-05-12 02:10:00 Robin [facility] OCCULT (GUAIAC) BLOOD 2022-05-12 02:10:00 Ferdinand [facility] URINALYSIS 2022-05-11 19:42:00 Romie Lewis [facility] CLOSTRIDIUM DIFFICILE 2022-05-11 19:42:00 Romie Lewis [facility] FECAL PATHOGENS BY PCR 2022-05-11 19:42:00 Ferdinand [facility] URINALYSIS 2022-05-11 19:42:00 Romie Lewis [facility] CLOSTRIDIUM DIFFICILE 2022-05-11 19:42:00 Romie Lewis [facility] FECAL PATHOGENS BY PCR 2022-05-11 19:42:00 Ferdinand [facility] LACTIC ACID WHOLE BLOOD 2022-05-11 19:12:00 Romie Lewis [facility] LACTIC ACID WHOLE BLOOD 2022-05-11 19:12:00 Romie Lewis [facility] BLOOD CULTURE SCREEN 2022-05-11 19:10:00 [facility]ie [facility] LIPASE 2022-05-11 19:10:00 Romie Lewis [facility] COMP. METABOLIC PANEL 2022-05-11 19:10:00 Romie Lewis [facility] ([id number]) [facility] CBC WITH DIFF 2022-05-11 19:10:00 Romie Lewis [facility] GLYCOSYLATED HEMOGLOBIN 2022-05-11 19:10:00 Ferdinand [facility] BLOOD CULTURE SCREEN 2022-05-11 19:10:00 Romie [facility] LIPASE 2022-05-11 19:10:00 Romie Lewis [facility] COMP. METABOLIC PANEL 2022-05-11 19:10:00 Romie Lewis [facility] ([id number]) [facility] CBC WITH DIFF 2022-05-11 19:10:00 Romie Lewis [facility] GLYCOSYLATED HEMOGLOBIN 2022-05-11 19:10:00 [facility] BLOOD CULTURE SCREEN 2022-05-11 19:00:00 [facility]ie [facility] BLOOD CULTURE SCREEN 2022-05-11 19:00:00 [facility] CONSENT/REFUSAL FOR 2022-05-11 18:00:56 Doctor Unassigned, [facility] DIAGNOSIS AND TREATMENT [place] [facility] CONSENT/REFUSAL FOR 2022-05-11 18:00:56 Doctor Unassigned, [facility] DIAGNOSIS AND TREATMENT [place] [facility] CT ABDOMEN PELVIS W 2022-05-10 03:29:54 Constantino Okeefe [facility] CONTRAST [facility] Branch HB ABO GROUPING 2022-05-10 02:49:00 Constantino Okeefe [facility] LIPASE 2022-05-10 02:48:00 Constantino Okeefe [facility] COMP. METABOLIC PANEL 2022-05-10 02:48:00 Constantino Okeefe [facility] ([id number]) [facility] CBC WITH DIFF 2022-05-10 02:48:00 Constantino Okeefe [facility] CONSENT/REFUSAL FOR 2022-05-10 01:33:55 Doctor Unassigned, [facility] DIAGNOSIS AND TREATMENT [place] [facility] MAGNESIUM 2022-04-29 08:47:00 Cordell [facility] FERRITIN SERUM 2022-04-29 08:47:00 Cordell [facility] IRON 2022-04-29 08:47:00 Cordell [facility] TOTAL IRON BINDING 2022-04-29 08:47:00 Cordell [facility] CAPACITY [facility] BASIC METABOLIC PANEL 2022-04-29 08:47:00 Cordell [facility] (NA, K, CL, CO2, GLUCOSE, Medica l Branch BUN, CREATININE, CA) CBC WITH DIFF 2022-04-29 08:47:00 Cordell [facility] MAGNESIUM 2022-04-28 09:51:00 Jaci Estrella [facility] BASIC METABOLIC PANEL 2022-04-28 09:51:00 Jaci Estrella [facility] (NA, K, CL, CO2, GLUCOSE, Medica [facility] BUN, CREATININE, CA) CBC WITH DIFF 2022-04-28 09:51:00 Jaci Estrella [facility] C-REACTIVE PROTEIN 2022-04-28 01:53:00 Jaci Estrella [facility] CLOSTRIDIUM DIFFICILE 2022-04-28 01:46:00 Jaci Estrella [facility] TOXIN [facility] FECAL PATHOGENS BY PCR 2022-04-28 01:46:00 Jaci [facility] COVID-19 (ID NOW RAPID 2022-04-27 18:36:00 Viv Ventura [facility] TESTING) [facility] LAB ONLY COVID 2022-04-27 18:36:[address] [facility] INTERPRETATION [facility] CT ABDOMEN PELVIS W 2022-04-27 17:16:09 Viv Ventura [facility] CONTRAST [facility] ABORH CONFIRMATION (LAB 2022-04-27 16:40:00 [facility] Medical Branch URINALYSIS 2022-04-27 15:38:00 Viv Ventura [facility] LIPASE 2022-04-27 15:10:00 Viv Ventura [facility] MAGNESIUM 2022-04-27 15:10:00 Viv Ventura Savi [facility] TROPONIN I 2022-04-27 15:10:00 Viv Ventura [facility] COMP. METABOLIC PANEL 2022-04-27 15:10:00 Viv Ventura [facility] ([id number]) [facility] CBC WITH DIFF 2022-04-27 15:10:00 Viv Ventura [facility] PROTHROMBIN TIME / INR 2022-04-27 15:10:00 Viv [facility]ura [facility] ACTIVATED PARTIAL 2022-04-27 15:10:00 Viv [facility]OUTINE & RHYTHM 2022-04-27 15:09:[address] [facility] 2022-04-27 15:09:00 Viv Ventura [facility] NOTICE OF PRIVACY 2022-04-27 14:49:32 Doctor Unamarialuisa, [facility] PRACTICES [place] [facility] CONSENT/REFUSAL FOR 2022-04-27 14:49:05 Doctor Unamarialuisa, [facility] DIAGNOSIS AND TREATMENT [place] [facility] Encounters Start End Encounter Admission Attending Care Care Encounter Source Date/Time Date/Time Type Type Clinicians Facility Department ID 2022-02-10 Outpatient [facility] [id number] [place] 11:33:08 ANA [id number] [facility] 2022-01-25 Outpatient [facility] [id number] [place] 15:47:07 ANA [id number] [facility] 2022-08-24 2022-08-24 Emergency X CRICKET NVPAYAM ERT [id number] Univers 14:07:00 19:15:00 ELLI [facility] 2022-08-24 2022-08-24 Emergency Cricket [facility] [id number] Univers 14:07:00 19:15:00 Elli INFANTE 350.1.13.10 i ty [facility] 4.2.7.2.686 [facility] [id number] [facility] 084 Branch 2022-07-02 2022-07-03 Emergency X [facility] ERT [id number] Univers 21:53:00 00:19:00 JUSTIN ity [facility] 2022-07-02 2022-07-03 Emergency [facility] [id number] Univers 21:53:00 00:19:00 Justin INFANTE 350.1.13.10 i ty [facility] 4.2.7.2.686 [facility] [id number] [facility] 084 Branch 2022-07-02 2022-07-02 Orders Doctor JESSEE [id number] Univers 00:00:00 00:00:00 Only Unassigned, NATE 350.1.13.10 ity of [place] [facility] 4.2.7.2.686 Kartik as [id number] [facility] 009 Branch 2022-05-11 2022-05-17 [facility] [id number] Univers 13:03:00 14:23:00 RAYRAY [facility] 2022-05-11 2022-05-17 Emergency Romie Lewis [facility] 1.2.840. 114 [id number] Univers 13:03:00 14:23:00 Jaci Estrella 350.1.13.10 ity of Ray[place] GamezJULIO 4.2.7.[address] [facility] [id number] [facility] 081 Branch 2022-05-13 2022-05-13 [facility] [id number] Univers 10:30:00 11:10:00 Marybel INFANTE 350.1.13.10 i ty of [place] 4.2.7.2.686 [facility] SURGICAL [id number] [facility] 020 Branch 2022-05-09 2022-05-09 Emergency [facility] ERT [id number] Univers 20:46:00 23:50:00 CONSTANTINO ity [facility] 2022-05-09 2022-05-09 Emergency [facility] [id number] Univers 20:46:00 23:50:00 Rudolphrebecca Christiano INFANTE 350.1.13.10 ity of [place] 4.2.7.2.686 [facility] [id number] [facility] 084 Branch 2022-05-02 2022-05-02 Transition STEF Cochran 1.2.840.114 [id number] Univers 00:00:00 00:00:00 of Care Lana VILLANUEVA 350.1.13.10 ity of [place] 4.2.7.2.686 [facility] [id number] [facility] 403 Branch 2022-04-27 2022-04-29 Inpatient X CORDELL [facility] AV [id number] Univers 09:54:00 13:15:00 DARRYN ity [facility] 2022-04-27 2022-04-29 [facility] Audrey Viv Hou [facility] 1.2.840.1 [id number] Univers 09:54:00 13:15:00 Encounter Jaci Estrella 350.1.13.10 ity [facility] 4.2.7.2.[address] [facility] [id number] [place] [id number] Branch 2022-01-31 2022-01-31 Outpatient [facility]H COH PIJFJJK QTO COH 00:00:00 00:00:00 [id number] 2022-01-30 2022-01-30 Emergency E KRYS DANG [facility] [id number] 18:36:00 22:28:00 JOHN Lyons l 2022-01-29 2022-01-30 Emergency E MARIAELENA DANG [facility] [address] 21:25:00 00:58:00 GREGORIO Lyons l 2022-01-28 2022-01-28 Emergency E MARIAELENA DANG [facility] [id number] 11:02:00 14:55:00 GREGORIO Lyons l 2022-01-24 2022-01-27 Inpatient E AZAEL DANG [facility] [address] 23:12:00 15:10:00 OBIORA kaleb manuel 2022-01-25 2022-01-25 Outpatient [facility] [id number] [place] 18:30:00 18:30:00 Health 2022-01-25 2022-01-25 Outpatient [facility] PIJFJJK QTO [facility] 00:00:00 00:00:00 [id number] 1 Results Test Description Test Time Test Comments Results Result Comments Source COMP. METABOLIC PANEL (01588) 2022-08-24 22:30:45 Test Item Value Reference Range Interpretation Comme nts NA (test code = 5829070616) 137 mmol/L 135-145 K (test code = 1110492427) 4.1 mmol/L 3.5-5.0 CL (test code = 8530713088) 105 mmol/L 98-108 CO2 TOTAL (test code = 26 mmol/L 23-31 0060167859) AGAP (test code = 3047698944) 2-16 BUN (test code = 6109034270) 10 mg/dL 7-23 GLUCOSE (test code = 2724602555) 95 mg/dL 70-110 CREATININE (test code = 0.93 mg/dL 0.60-1.25 0554847094) TOTAL BILI (test code = 0.5 mg/dL 0.1-1.1 9104836479) CALCIUM (test code = 8339018785) 8.8 mg/dL 8.6-10.6 T PROTEIN (test code = 7.1 g/dL 6.3-8.2 1802767573) ALBUMIN (test code = 7364086362) 4.0 g/dL 3.5-5.0 ALK PHOS (test code = 1726493408) 80 U/L 34-122 ALTv (test code = 1742-6) 19 U/L 5-50 AST(SGOT) (test code = 25 U/L 13-40 3859456219) eGFR (test code = 9035373647) mL/min/1.73m2 ROBERTO (test code = ROBERTO) Association [...] in imaging tests). [facility] WITH [id number] 22:14:06 Test Item Value Reference Range Interpretation Comments WBC (test code = See_Comment [Automated 3490-2) message] The sy stem which generated this result transmitted reference range : 4.20 - 10.70 10*3/?L. The reference range was not used to interpret this result as normal/abnormal . RBC (test code = See_Comment H [Automated 609-8) message] The sy stem which generated this result transmitted reference range : 4.26 - 5.52 10*6/?L. The reference range was not used to interpret this result as normal/abnormal . HGB (test code = 12.5 g/dL 12.2-16.4 718-7) HCT (test code = 42.1 % 38.4-49.3 4544-3) MCV (test code = 75.3 fL 81.7-95.6 L 787-2) MCH (test code = 22.4 pg 26.1-32.7 L 785-6) MCHC (test code = 29.7 g/dL 31.2-35.0 L 786-4) RDW-SD (test code = 54.9 fL 38.5-51.6 H 73930-9) RDW-CV (test code = 21.0 % 12.1-15.4 H 788-0) PLT (test code = See_Comment H [Automated 777-3) message] The sy stem which generated this result transmitted reference range : 150 - 328 10*3/ ?L. The reference r carlota was not used to interpret this result as normal/abnormal . MPV (test code = 10.1 fL 9.8-13.0 13873-4) NRBC/100 WBC (test See_Comment [Automat ed code = 5198568583) message] The system which generated this result transmitted reference range : 0.0 - 10.0 /100 WBCs. The refer ence range was not u sed to interpret th is result as normal/abnormal . NRBC x10^3 (test code See_Comment [Auto mated = 2325099243) message] The s ystem which generated this result transmitted reference range : 10*3/?L. The reference range was not used to interpret this result as normal/abnormal . GRAN MAT (NEUT) % 52.4 % (test code = 770-8) IMM GRAN % (test code 0.30 % = 1736737316) LYMPH % (test code = 23.7 % 736-9) MONO % (test code = 15.7 % 5905-5) EOS % (test code = 6.3 % 713-8) BASO % (test code = 1.6 % 706-2) GRAN MAT x10^3(ANC) 3.94 10*3/uL 1.99-6.95 (test code = 4883883045) IMM GRAN x10^3 (test 0.00-0.06 code = 3613608973) LYMPH x10^3 (test code 1.78 10*3/uL 1.09-3.23 = 731-0) MONO x10^3 (test code 1.18 10*3/uL 0.36-1.02 H = 742-7) EOS x10^3 (test code = 0.47 10*3/uL 0.06-0.53 711-2) BASO x10^3 (test code 0.12 10*3/uL 0.01-0.09 H = 704-7) Lab Interpretation Abnormal (test code = 38074-4) [id number] 21:51:41 Test Item Value Reference Range Interpretation Comments LACTIC ACID (test code = 1.02 mmol/L 0.50-2.20 3870289019) Lab Interpretation (test code = Normal 27823-8) [facility]. METABOLIC PANEL (06968)2022-07-03 05:30:27 Test Item Value Reference Range Interpretation Comments NA (test code = 140 mmol/L 135-145 0560759112) K (test code = 4.2 mmol/L 3.5-5.0 5514408763) CL (test code = 105 mmol/L 98-108 7613764365) CO2 TOTAL (test code 30 mmol/L 23-31 = 3136731754) AGAP (test code = 2-16 6062837658) BUN (test code = 13 mg/dL 7-23 2985166877) GLUCOSE (test code = 92 mg/dL 70-110 1094345054) CREATININE (test code 0.89 mg/dL 0.60-1.25 = 8349927437) TOTAL BILI (test code 0.4 mg/dL 0.1-1.1 = 0189556477) CALCIUM (test code = 9.2 mg/dL 8.6-10.6 8554155471) T PROTEIN (test code 7.2 g/dL 6.3-8.2 = 7487652159) ALBUMIN (test code = 4.3 g/dL 3.5-5.0 2835620788) ALK PHOS (test code = 62 U/L 34-122 2318915476) ALTv (test code = 19 U/L 5-50 1742-6) AST(SGOT) (test code 32 U/L 13-40 = 4196349071) eGFR (test code = mL/min/1.73m2 8882921292) ROBERTO (test code = ROBERTO) Association of [...] in imaging tests). [facility] WITH [id number] 04:54:46 Test Item Value Reference Range Interpretation Comments WBC (test code = See_Comment [Automated 6012-2) message] The sy stem which generated this result transmitted reference range : 4.20 - 10.70 10*3/?L. The reference range was not used to interpret this result as normal/abnormal . RBC (test code = See_Comment [Automated 130-8) message] The sy stem which generated this [...] RDW-SD (test code = 47.4 fL 38.5-51.6 18221-1) RDW-CV (test code = 18.8 % 12.1-15.4 H 788-0) PLT (test code = See_Comment H [Automated 777-3) message] The sy stem which generated this result transmitted reference range : 150 - 328 10*3/ ?L. The reference r carlota was not used to interpret this result as normal/abnormal . MPV (test code = 9.9 fL 9.8-13.0 80312-3) NRBC/100 WBC (test See_Comment [Automat ed code = 6879302576) message] The system which generated this result transmitted reference range : 0.0 - 10.0 /100 WBCs. The refer ence range was not u sed to interpret th is result as normal/abnormal . NRBC x10^3 (test code See_Comment [Auto mated = 8192650751) message] The s ystem which generated this result transmitted reference range : 10*3/?L. The reference range was not used to interpret this result as normal/abnormal . GRAN MAT (NEUT) % 52.0 % (test code = 770-8) IMM GRAN % (test code 0.30 % = 3389536756) LYMPH % (test code = 28.1 % 736-9) MONO % (test code = 16.8 % 5905-5) EOS % (test code = 1.6 % 713-8) BASO % (test code = 1.2 % 706-2) GRAN MAT x10^3(ANC) 3.91 10*3/uL 1.99-6.95 (test code = 3378633058) IMM GRAN x10^3 (test 0.00-0.06 code = 9637855480) LYMPH x10^3 (test code 2.11 10*3/uL 1.09-3.23 = 731-0) MONO x10^3 (test code 1.26 10*3/uL 0.36-1.02 H = 742-7) EOS x10^3 (test code = 0.12 10*3/uL 0.06-0.53 711-2) BASO x10^3 (test code 0.09 10*3/uL 0.01-0.09 = 704-7) Lab Interpretation Abnormal (test code = 75616-9) [facility] [id number] 15:55:55 Test Item Value Reference Range Interpretation Comments Case Report (test code Surgical Pathology ? ? = [id number]) ?Case: [id number] ? Authorizing Provider: ?Marybel Sexton MD ? ? ? Collected: ? 05/13/2022 1129 ?Ordering Location: ? ? [facility] ? ? ?Received: ?05/13/2022 1621 ? [facility] Center ?Pathologist: ? Coleen Rosario MD ? Specimens: ? A) - LARGE INTESTINE, LEFT-DESCENDING COLON, random biopsies ? B) - LARGE INTESTINE, SIGMOID COLON, random biopsies ? C) - RECTUM, Random biopsies ? Final Diagnosis (test e2ynsXWjQKEhy3fiFKUxeE code = 7910827115) FuZzEwMzNcZnRuYmpcdWMx IHtccnRmMVxlcGljMTAxMD LsMP8gsWatrEt4yMzlAKGn otS7tWZaJSvcf3tqUGB4f2 fakvzdGPKjORqhAu1pvLWh jNbiPhBxLYRsRSb2tS61OW UgqW9ahSTnFOk4CBRznGJn buOlFyRbXDWarEBvvSB3VU RpXB2xkkqkCZwnWKooPSPw xtI8CGAtyOEbC6VkPOCxVA 0npolcGTQ1WLeuKODbKCB5 LbJmMPVon6Xhrmh2SnGddS FyZFxwbGFpblxmczIwXHBh sffcfLX5RMmquJ60AMNaeZ veDNZdPCBbBJBLOP6IQDKJ TLKZXQHAV3QIGyJUEtwjKF DTGnBJAVPGOP3ZI6p4TXld ZGVweQrgEXNzTNfrpR8cIF VzPLRhPOQRGO2YLFYwCMXX Q9YZFZwGXZvuSZvGKBFyOC NPXQICLRQYGngzE5RSCUEf HTMWL3QVMtbwKO3GTtOZJ1 VVCEyUZSPWV8HTLZBDZPOA VElDXHBhciAgICAgICAgSU 4JHHcERmRMOWCKIfRXRM3G QcXcEMIBNOZWKIziGP1BDH WJIHFTRWPJJ3iPUOFNXCGF YUmvMOxYCL7UTDdIRgazB3 6RL5uTZYINBICIIJVKVLhs YXIgICAgICAgIFNFVkVSRU xZIEFDVElWRSBDSFJPTklD IENPTElUSVNccGFyICAgIC 0kVf1qS9AUOnLEC12WIR6U PNANU4ZNHBEPXAVIBEONIF lGSUVEIFxwYXJccGFyXGxp POQiOVSkTWO3XHtcxO45IR LnJp2dC53PV95iWZQZW08T VKZgQHZWZrMHAYRGDW4TH4 d9WEhcVVZmpNqsZYQeMSzi oS2yZLDlQO5lQ94BJ65KIi ULDSADN2EgZ7kWRTCAJZQP TohiO2TMHUGCKUlNPAGAUf lQVCBBQlNDRVNTLCBJTkNS RUFTRUQgTFlNUEhPUExBU0 3QH0eMGMNzzNLkIZIaDLLk LT2YGLjSNsQEMZDGPjEEGW 5QRyThBSZFNRGGJQvrJK2A OSBIMJQKKSSDS3kGFYZIAA LAHVkpYSqKVV9RUZcCInfg J2QTCLNdJRSHVFXPYPLsvI EmCQRsUAYqG30PY8zJGYFD VCBXSVRIIFNFVkVSRUxZIE FDVElWRSBDSFJPTklDIENP TJpPLBEmkNEeNHPrFU3eAz 1aI3HLKiODE21UUA7KILCL O2WWXQVCPVCPRIJZJOlMDX VEIFxwYXJccGFyXGxpNDUw TGUlKJL8JLeyiW44KOJjPs 8yGkKRRNNUXZZDUF4FX95y QklPUFNZOiBccGFyXGxpMF xmaTBcbGluMCAgICAtIENP YS5DILBaGXZOJ9RGLOcESV ggVUxDRVIsIENSWVBUSVRJ JfwcK9FGGBNfTHTPK8AYQk akHN7FSpAIY0NUSFkBRILS K3UWXDOKPKGLKGsXURRtpu AgICAgIElORklMVFJBVEUg BY5tYKXGDT2NLAVSR9VVLP EsIEFORCBDUllQVCBBUkNI HDPNE1AUXvROVHXOQ2JRDi PKV04xEUUSQXTLGHVYL5Op G2DVFOznSHDjXMCcBJRAX4 1BRWCBOE3WMLsISVaqN5JJ RVJFTFkgQUNUSVZFIENIUk 8VVNYmZBGVT7FBUHhGHQHx dyJgFRVvPY2ZPAfYWA2SYZ 9NQSBPUiBEWVNQTEFTSUEg SURFTlRJRklFRCBccGFyXH IksvzawcBjWAopAzw5CVTi TOsfHZ3hMVJZAHTeTX1jSQ 7wEKMnSQi2GBwqWH0pzEFz KGJawvUmRpBhMQesJWH7q0 xydGYxXHNzdGVjZjIyMDAw CVGtq1mlMXQerWPzLuNkAl NcZnRuYmpcdWMxXGRlZmYw k5zer114yXBvy4cdXELqBt W2dATyFJVqaLcxien4qWrh IpRwTLEfl0wlihKvVuZzTF PzBMZcLEVkgQMtP755SEWy GSstk7vpe6GsTGCkmFZle6 G0NGTFRDfjQtOxF632f0hw w0lplsRolSA1QARfXYC2WY bdlgTtryK1AQskvDAvJvJ8 IDtccmVkMFxncmVlbjBcYm g8SKWlH899IIS1bIqpf5so GWL7WPCdIIOyVybqIl8dtF RoX877BISwFATYGTKiqHg8 RNBfcwKzskDfqXODo263A2 18j7yhYULdfbKvoRuBehrj n5xhF300OICioENbwjNfEz OlBEUtqMYioTK7UZQvFC7y jskzEVdlERdhOSKdjhV6AU NwpXPyR3GqDYNjCR7xpgwt LHV2SFrzDDYuEUU1DxVpJY Naq6Mkwzq6KvSxyp9ydz23 DLK0o4ZzxZmaNES1VWT9Ix GgJk9bwLOlLPZpTK3xLmPz qMMiIVUzna02qEddUKjbgs QwcJ1jKqTzBHAbfSCgPOLj LR9jgGQnAREitM9cnoadXZ BnYnJkcmhlYWRccGdicmRy Db8fdWpfEBN0HGhoG9rlxQ 1bCeB2VEkaL4coiQ0sJGs3 AGsbuLP5DCWpcQ4vRS0vlh fiw2ntYXzzFHetADRjeiB9 ljO7FYIypYNyZ3BciH0vTI FtCI0kwavxm8fcVKW0KYxh GBSbVIM5AzYkFOJdq5Iykk j9PrWzf7VubQKzBNjsT65c e313MQSmsgHnX8vziCQxlp mkyKTxddtkTIayozE7YHTr XHBsYWluXGYxXGZzMjBcbG FuZzEwMzNcaGljaFxmMVxk RiZwZICsYTxcL2maLaXqC1 YyXGZzMjBccGFyIEkgaGF2 FVCxZKGvu11weDv7ZKFdnx hhu6TbCROcmGOdzYXdgI8o pzBcs1gqRYRcVMPvITAeN9 KyLXL4sNAqOJVdvELtkSB8 JD8sodUsVN7tTVTpGubjei GmmSNrzgSlCGMmRWvxj4ga LV4nGPQaxXdiwN3inAN8SW Bnm7agjHHjzFCuv5cor0Fm bmFtZShzKSBtYXkgYXBwZW ZvVA9nNZWadTDbihQwv3E5 MgutuAOizdszWwswqzQ2XW eslagqWWGdUOwcO3fmTtJd CFVibEfuNeeht9HxNHQyYU ZzMjhccGFyfX0= Final Diagnosis Comment p6mxvCZaQSZtfRGhNNVbV1 (test code = lspnSrEINmzMQyH1Fmtbbg [id number]) CHdqOJ9dRJ6izQvkmKOvvO MxXEUoVoUxq5iee799cPDw q5juAPJAzuutjMj1iAnrS5 8nu1S2ZeceQ89wgJRlAIU1 FRRyASKulEEgDSLpOWL6XW ShkZPkA1nfJTXiAD3wkefr WRpzZNjnECFgpMZ7YQOjdS OnD6OvEHQzMKosHHQncvu4 CjIjTv1hnLRdcEfpGYmhTF JkXHBsYWluXGZzMjAgRHIu FQSaxHIyCEStyuF7wKN3GQ HtdNgiRKAuu4GzTI4bFUFs ggD7odJtw5b1iVI7vVFxHW upH49ec7qyEhZoNNRnmr9= Clinical Information colitis (test code = [id number]) Gross Description (test g8kyxGBsDEOhnNEQYRMdGZ code = [id number]) CmZS8dmEbaqYb1oQsfDGNq kgG2lKZrLUuqz3ruYCR9k9 llbiANClxkZWZmMVxwYXBl cohnUaI2AShyOWLbtfwnBT k0ONeuXEGttYO2ZWWdvEOz X2KuSUGyHV5hknu5YFV7RY jmCOPnHbC3FWBlCdKwStqb AKn0PNHgtmC7Lgc4HZUzAQ FdxKVuo5I5TTmxlkdsBFKb eJIgN410JNqpk9EdvVDpPN pccGFyZCANCntcKlxlcGlj y1UmdTIcQJpoMNJgQDPfOC nykmijMLy5FVXgKKgvuPTa FW3qrGicLmxkdRjhs9RlfG BcXGlkIDUxMDAyIFxcZGIg WD8ICrCzUZO4AByiJlycYS t9ARp1PU1IXoWcQDFaWMVw HyL5NMHpLYv0OKaoRS9ODC B2OGO1BOW7WXSqQJBhVzbo LLl0AFVfFNmpMQUljCHaYW ssAyLxFWOyUBhmtNUwQK9n fVxwbGFpblxmczIwIFNQRU XHMLMFEAPztQGeWC3FJTOm RNooJXSibRZGJUQ5KJ5iDM ANClxsdHJwYXJcbGluMFxy dS0zDC5KIPp9miBiWAPnLa JiQ5NwD3srKQ1kOXDcibJo KGOvrOBuPGUrosPgh2RrLW jlqxTeXGRupHgvLAT3vPSl DXXnDKEmCEKaTP71TWdSCZ MgbmFtZSwgVUggbnVtYmVy IGBgIGxhcmdlIGludGVzdG bdYCjreSWqpHZwCVCoOU1r nE0kFVCaGL9iz96tSagdlA DiANCiF5I7HUjKFNUqogKv Z86lg5jvoQXmn8QhgSOysK lwbGUgdGFuLXBpbmsgaXJy ECa3fVPhAVWsHuQzbRcxs2 EjLCDcLNtmZI50psSePL2r LTAuMyBjbSBncmVhdGVzdC YglG4hxxQbv93oOLJqPFQ6 UUNdUAZ7HWJwKTAwzKEybo XcU9btYHhgmYLiQePOmNNm a5DyX8adAT3txSZnHgsmdI WqAUFshHfgq3GggXEeCLGv x7SawCZeFAkeCR1cBYU9Ru 9twKDeCNGxhxX6f4TeESxr IJMjRoisjZ6mRWqjjH9hJN 4HKVFgiFOSMDC8BJ1qJEz3 JTfpGFTeR1UlV2AuzcPmqI RmNJAvjzLoo5gvAKT7EBWh eLIntGTyQmXjZzlqPNB5SH IdYFryYX1Dx1hmUNRehGXj ULR7EGuviQCaEOBwWCNkRK taKfYkS2AHDXSlPbm0NlB3 YGDkDFy0ULhaY2ICLEXiCW HhHyD0YHA9EtC6IOc5NDSD Qm7dLOP9PPTvZpSpFLS2DO EzOSBcXHQgMiBcXGYgQXJp YWwgXFxmcyAxMCBcXGZsIF pqwdB8CHJxRKpwDWZdUbMu H5VRJ1cKTL5cEceaSBDlMI jfbNgfcJ1eFRZtH50to2AR m6UjRZ0RWQx2eaJyevpqlU 4jAAEhkdPmCTzjaWCfD5id UdZxQpUUtBZfcU9wyuBBYN bvJNCtA3XzoxDzQIqeAAFp ay6tlSwcOFocSxMqcKJrWN dpdGggdGhlIHBhdGllbnRc E8S9eyPbRT0jTQDDZTBpeD 3yPWSgNBIllRChF2ZjaN14 RZS2gX9zGXLajEdqs6uvAY WetQ9iZZQgUN3wq96qRwfg aUOcMQTiW2W6ZPwMNHWhwp DzD50sf9uwxCNpv9CccBAr dGlwbGUgdGFuLXllbGxvdy UmczZmR1CmAQLoc62wfXF4 tPFqcAZyHjHtY68lwrJgZD hvUiUeFA6vVINaNSycKRxr QPH4UOS4WQQojOIbs3ykva wkXJ9nABcpVT99IMkvND8v ZKXwMFotTWRjR8UlT9A0FB siHYWqGVNuiUOmfT1yjrRx zhOphMw2QUIyJYI8dLGafA qxBREjKmgdwMY3OXJbWnYw jdPcy1ZwyJa9uRPeMGdhMR IwlR6enL7qIsZwNAkrrhAm EChbawHfVYveSXPvG60zi1 NZy6XbPAFpq5uesNkqe0Ab dGVuZFxwYXJccGFyZFxzbC 5iXgCan9mpuIb6PIwgvrG8 EXAujb2fjQaecV8xXYg0RN joTFLsH5ZbO1KrREswYMN1 MTAwMiBcXGRiICBPVlIgIi AlXSL8GLG8PcQ9JHr1NXKE VeYdAeUwRyAnCUO9UnvzCR e4XKy3GAlZBpSeWcZ7IHW5 SBTgWPA2TGY6SZdfjZGdFG xcZiBBcmlhbCBcXGZzIDEw BHmgDrxlEXcaI43alQqjiZ 9iWpTbWRRXOIKFHY6ZSnTT XHBhciANClxwbGFpblxlcG ljTmVzdERvYzEgDQpcbHRy cGFyXGxpbjBccmluMCANCl xsdHJjaFxmczIyIFNwZWNp xFHqXJFqySXwpkOyBPz1QF QrfJ2cSi9itLReeP8hyLDe XGboREDwj2g9oIW1bXAgxT D3zKVxyFvxVjZiYU4dsWOq KAJNJH97yILiovRqDHYoUY I3aJ1lGUTyjyAteDNspX7z h8ksc7vwRgQjL4X0LXJtEG Ofa92qmHO7ohDnHtT2EXVk vkVegaOtM7ElDPGxa52tyW C0dRSxcUDxMmFcI53gojOp DOagYaUhXJ0lERKjSDepIF dwCWP2APK2ZVHrhXUaq7lo blmtCF31LVprXI6yGKjqAW 0gZXBoYGenIQObD7ZxA0Y3 QWrmUZYgKAHypVRteS5kyn AxlyIvuTj3WTHqWRB5sUKo aSmkBGWuEujxpTK6DRBfGo AwabBki8LxlRw0tGAtYDym MTAatV4dlQ7dLnIlSZxxah UgXGxpbmUgSnVsaWUgTWNJ aIkbguV1WBKSTNNlIEMRTQ kNClxlcGljTmVzdERvYzBc grV0WTGmpQCjVTJ4ZN4fGA HobdhcBHSeSSVsULJ7QRlb iC52gMWtVCQaILIayGXdbY dvfSBkklANLygdtM8uMtGn d6twsAp2LAFVDyqtyYCnjb lfyiG2JBIdt6qijTipz4Tq mFPmKS5atPlqgZ7rJgCpCs ANCn0= Disclaimer (test code = b8gbfWTrQDXim6apGKSdlX [id number]) FuZzEwMzNcZnRuYmpcdWMx HNtgsaGePIzik2QyQ3RqZv AwMFxhbnNpXGRlZmxhbmcx DZQkHZT6chUuESKxDBsfLY QhJGniBr0dhJRytVnbGyDl GGGtg8mhdwDILQezAtCeD3 69IQXkSGzfz7afd8KbAFDe iPNkv4R6YPTRxlqziGk6uA hdC00cx3W9ZriyB2nhEJAt PZDiG4XxCR2uULQgWvi7PY I1AGO7ZRCaVCDaB3YnFO5z UTZbnQXpYDe3a9zveJnxDK VwCEF6o3vmUEablsZcHV2c ky2tgWd9l4azmlDjHHJuXJ UpgSEZWUAzM8RazIgpZa8a uFm6kOgwTpcnDQS6Ggj9WY 6nha47peg4vNkyLGPbtreq JmT4NQsfUKNxjwfkMCt3UT pwDBWvwRY4RDZdsSNlF0Ub XEFpGL2bxxi3FOY8YFxsOA CvYxL9WVYlrBOdVTNkrXwi YCciw149LEI4PbShOQ1xF7 Qid4Z3sN3nhZXpVXInaZSi EhEkOKFvky6vcBWwSQion2 ZzEFW9keO7qIMtrSLaHBKa BB00Cwyxg3CeOkctx3PjG0 3udBI5NObun0lfFW6zCqM2 vzNlHCvpg9pwvP3pZuY8IW niQX2cZK4sUVQkpT3amajs XHBnYnJkcmhlYWRccGdicm NtSx3vtMdlBRB1UObgB0ih vP0jUvS8IEkhC0oodZ6jBN w6MEponLX4RQNoiO2uBS1u bxxuo9awBFdaJTxpCRLawn Y8dxX6SJOezZLzJ4AmdE2a BBWuHL7mwusyn3bzUDQ2UV ceDHFoVVT2IpJyECZio3Qq ghq3XiKas0ZudIRzVJtqZ7 4nz817ILZgplIpH5ktnFDx vnpjaVNdfucdFQgpyzE6SZ QvgeJtt8OcQCHnSGU7NPwz JZrknQJlJWItrDioa2kwD0 RscGFyXHBsYWluXGYxXGZz MjBcbGFuZzEwMzNcaGljaF klRPwwTxDyOBNjLJwoL9ki EuQfQ8NzLGNbRtIkwUBxS0 ggVGhpcyByZXBvcnQgbWF5 TOhzR6d2NWBcgzCprPx6yi IxOqYyGIPdCSK6MSjpiPYg WOHwv2TzuvnjkJPqFe0oeB KyHSEqtL0rENWxSOOgWDbs GX1ztZa9AGGAvJIxfQYjEk ITCWYjJP47ysLyIRYLyzym n1F2SNtiFDNxg2AqgFMpE1 wjf7VdDWOoe70gUW7ly3N7 f5cpQCN7ND7nk1FmDSVjyW WdzREhMTCxk8Pjwnlgk1Lr VVImjcDkh9OjCZKofhJtyM DoQNQrrrGwrv7vqjJwYHBr HCQyM2GbknpgnWncraNsHJ Mhro0fvaLxJWT9SPKZAHJc QWBzv5PncB0ilWQRJWO8gU Ksmn3plpDVjAMrFXGbmj66 AYFkMD6qU8ncOGEzONMnik ZbnHBml7JoYIUphTC4yMOg ME7ZYrTTp87sARDtFVOWlb LbVQEgxFjjpKG5dxN3yS1h IChGREEpLlx+IFRoZSBGRE GqOM2aubJue8WhjxGmrPzm KERaoZCmn9RwlNZwh0HhxB fah7RvgQShgOXmEM5uPKHo clxwYXIgVVRNQiBMYWJvcm T2z6CcNVHsEOMrLGC2vMmq eco2ADAshY6hDGKsE2ztlo sbLDsqXIDge5JrsL7zyGTD fBJkl2WtrDUthNDReCTzAK 0kndCuIJeWYCcCKLP4swXo CTZrw9SmHUaiI4zqA05yfD ovxQb2gCT5MOC5iK7pDjr+ IFxwYXJccGFyIEFwcHJvcH OdDEWooQgkkqOnD1ZlnpEy pR7fyINvizUlRK9vTH0xY1 S0vFLjBKBkepHxy7jqKDmz dmUgYmVlbiByZXZpZXdlZC Ofp1JeTWgzNNR8NHewmeLl bmNsdWRpbmcgSCZFLCBTcG HtjWZbGKW7IJepwfRhbhWs TZ6gzU9hkExyrC7nxMNvzL N9nbcaWVMqLXKquSltVEVk GE5ppVDrUEAfmuMUeKvafA HcoU7wT4AyUABwZPCtbi8c NMWpfJ7tCTwcj3CfisrkCC YmXDQtEQYpwxAjwl4aGRVb bZQCAQ7BTYrimYFtu0Jmtc OdK0iOGYB2JJHsImClCgys YSSyaLHcmVGuCGAqom47ML AcqK9zmIjbKWGhiU1siN3i hJvteI9tNnOaFfDjSEvlRC 2oKUEpT9zxiREgWOAgPXBk L9rlMxLeaB5rrXrrXRldCq VgFaEiADesNMN9tP== Embedded Images (test code = 8676524390) [facility] Culture - Peripheral # [id number] 20:01:59 Test Item Value Reference Range Interpretation Comments Blood Culture-Aerobic No organisms No growth Previo us (test code = 31412-0) isolated prelim inary verified result was Culture [...] Culture-Anaerobic isolated preliminar y (test code = 17031-6) verifi ed result was Culture In Progress [...] CDT Lab Interpretation Normal (test code = 09922-4) [facility] Culture - Peripheral # [id number] 20:01:59 Test Item Value Reference Range Interpretation Comments Blood Culture-Aerobic No organisms No growth Previo us (test code = 60549-9) isolated prelim inary verified result was Culture [...] Culture-Anaerobic isolated preliminar y (test code = 63602-2) verifi ed result was Culture In Progress [...] CDT Lab Interpretation Normal (test code = 02252-9) [facility] Culture - Peripheral # [id number] 20:01:59 Test Item Value Reference Range Interpretation Comments Blood Culture-Aerobic No organisms No growth Previo us (test code = 27293-1) isolated prelim inary verified result was Culture [...] Culture-Anaerobic isolated preliminar y (test code = 83121-2) verifi ed result was Culture In Progress [...] CDT Lab Interpretation Normal (test code = 08902-1) [facility] Culture - Peripheral # [id number] 20:01:59 Test Item Value Reference Range Interpretation Comments Blood Culture-Aerobic No organisms No growth Previo us (test code = 37745-0) isolated prelim inary verified result was Culture [...] Culture-Anaerobic isolated preliminar y (test code = 91665-4) verifi ed result was Culture In Progress [...] CDT Lab Interpretation Normal (test code = 73332-4) [facility]00 Rout[facility] 2022-05-13 13:43:26 Test Item Value Reference Range Interpretation Comments ABO & RH (test code O Positive Performe d at [facility] = 20) Laboratory [facility] [place], [place] [address]Toll Free: [phone] A No. [id number] IAT (test code = Negative Performed a t [facility] 1185) Laboratory [facility] [place], [place] [address]Toll Free: [phone] A No. [id number] [facility]-0500 Routine 2022-05-13 13:43:26 Test Item Value Reference Range Interpretation Comments ABO & RH (test code O Positive Performe d at [facility] = 20) Laboratory [facility] [place], [place] [address]Toll Free: [phone] A No. [id number] IAT (test code = Negative Performed a t [facility] 1185) Laboratory [facility] [place], [place] [address]Toll Free: [phone] A No. [id number] [facility], [id number] 22:16:10 Test Item Value Reference Range Interpretation Comments VIT B12 (test code = 603 pg/mL 240-930 [id number]) ROBERTO (test code = ROBERTO) Biotin has been reported to cause a positive bias, interpret results relative to patient's use of biotin. Lab Interpretation (test Normal code = 74285-6) [facility], [id number] 22:16:10 Test Item Value Reference Range Interpretation Comments VIT B12 (test code = 603 pg/mL 240-930 [id number]) ROBERTO (test code = ROBERTO) Biotin has been reported to cause a positive bias, interpret results relative to patient's use of biotin. Lab Interpretation (test Normal code = 35745-8) [facility] D, [id number] 21:50:29 Test Item Value Reference Range Interpretation Comments VIT D 25OH (test code = 25-80 L 28916-7) ROBERTO (test code = ROBERTO) Deficiency: <20 ng/mLInsufficiency: 20-24 ng/mLOptimal: 25-80 ng/mL Lab Interpretation (test Abnormal code = 48764-9) [facility], [id number] 21:50:29 Test Item Value Reference Range Interpretation Comments VIT D 25OH (test code = 25-80 L 48592-4) ROBERTO (test code = ROBERTO) Deficiency: <20 ng/mLInsufficiency: 20-24 ng/mLOptimal: 25-80 ng/mL Lab Interpretation (test Abnormal code = 38501-4) [facility] [id number] 18:56:01 Test Item Value Reference Range Interpretation Comments CRP (test code = 0.9 mg/dL See_Comment H [Automated message] [id number]) The system [employer] generated this result transmit eunice reference range : <=0.8. The refe rence range was not u sed to interpret th is result as normal/abnormal . Lab Interpretation (test Abnormal code = 65453-1) [facility] [id number] 18:56:01 Test Item Value Reference Range Interpretation Comments CRP (test code = 0.9 mg/dL See_Comment H [Automated message] [id number]) The system [employer] generated this result transmit eunice reference range : <=0.8. The refe rence range was not u sed to interpret th is result as normal/abnormal . Lab Interpretation (test Abnormal code = 85895-1) [facility] CenterTHY[facility] STIMULATING [id number] 13:43:08 Test Item Value Reference Range Interpretation Comments TSH (test code = See_Comment H [Automated message] [id number]) The system [employer] generated this result transmitted ref erence range: 0.45 - 4 .70 mIU/L. The refe rence range was not u sed to interpret this result as normal/abnor mal. Lab Interpretation (test Abnormal code = 61750-7) [facility] [id number] 13:43:08 Test Item Value Reference Range Interpretation Comments TSH (test code = See_Comment H [Automated message] [id number]) The system [employer] generated this result transmitted ref erence range: 0.45 - 4 .70 mIU/L. The refe rence range was not u sed to interpret this result as normal/abnor mal. Lab Interpretation (test Abnormal code = 53426-2) [facility]AL [id number] 13:21:44 Test Item Value Reference Range Interpretation Comments NT-proBNP (test code 54 pg/mL See_Comment [Autom ated = 1359979754) message] The system which generated this result transmitted reference range : <=125. The reference range was not used to interpret this result as normal/abnormal . ROBERTO (test code = ROBERTO) Biotin has been reported to cause a negative bias, interpret results relative to patient's use of biotin. Lab Interpretation Normal (test code = 90811-0) [facility] [id number] 13:21:44 Test Item Value Reference Range Interpretation Comments NT-proBNP (test code 54 pg/mL See_Comment [Autom ated = 2222706775) message] The system which generated this result transmitted reference range : <=125. The reference range was not used to interpret this result as normal/abnormal . ROBERTO (test code = ROBERTO) Biotin has been reported to cause a negative bias, interpret results relative to patient's use of biotin. Lab Interpretation Normal (test code = 67928-2) [facility] CenterLIPID PANEL (66555)(TOTAL CHOLESTEROL, TRIGLYCERIDES, HDL)2022-05-12 13:12:48 Test Item Value Reference Range Interpretation Comments CHOL (test code = 124 mg/dL 120-200 5978001984) HDL (test code = 27 mg/dL See_Comment L [Automated message] 6653613555) The system [employer] generated this result transmit eunice reference range : >=40. The refer ence range was not u sed to interpret th is result as normal/abnormal . HDLC RATIO (test code = See_Comment [Au tomated message] 7669363087) The system [employer] generated this result transmit eunice reference range : <=5.0. The refe rence range was not u sed to interpret th is result as normal/abnormal . TRIG (test code = 104 mg/dL 30-170 3367029426) LDL CHOL (test code = 76 mg/dL See_Comment [Auto mated message] 76912-1) The system [employer] generated this result transmit eunice reference range : <=160. The refe rence range was not u sed to interpret th is result as normal/abnormal . VLDL (test code = 21 mg/dL 5-60 3912668352) Lab Interpretation (test Abnormal code = 80599-3) [facility] CenterLIP[facility] PAN[facility] (30545)(TOTAL CHOLESTEROL, TRIGLYCERIDES, HDL)2022-05-12 13:12:48 Test Item Value Reference Range Interpretation Comments CHOL (test code = 124 mg/dL 120-200 1260278184) HDL (test code = 27 mg/dL See_Comment L [Automated message] 8038839935) The system [employer] generated this result transmit eunice reference range : >=40. The refer ence range was not u sed to interpret th is result as normal/abnormal . HDLC RATIO (test code = See_Comment [Au tomated message] 9607307022) The system [employer] generated this result transmit eunice reference range : <=5.0. The refe rence range was not u sed to interpret th is result as normal/abnormal . TRIG (test code = 104 mg/dL 30-170 6499216722) LDL CHOL (test code = 76 mg/dL See_Comment [Auto mated message] 99712-5) The system [employer] generated this result transmit eunice reference range : <=160. The refe rence range was not u sed to interpret th is result as normal/abnormal . VLDL (test code = 21 mg/dL 5-60 1357873033) Lab Interpretation (test Abnormal code = 06384-9) [facility]MAGN[facility]UM20[facility] 13:12:47 Test Item Value Reference Range Interpretation Comments MAGNESIUM (test code = 7584220189) 1.8 mg/dL 1.7-2.4 Lab Interpretation (test code = Normal 52138-6) [facility]2022-[facility]-06 13:12:47 Test Item Value Reference Range Interpretation Comments MAGNESIUM (test code = 3866126530) 1.8 mg/dL 1.7-2.4 Lab Interpretation (test code = Normal 60859-4) [facility] CenterCOMP. METABOLIC PANEL (41555)2022-05-12 13:12:27 Test Item Value Reference Range Interpretation Comments NA (test code = 139 mmol/L 135-145 1038510879) K (test code = 3.5 mmol/L 3.5-5 3164186102) CL (test code = 106 mmol/L 98-108 5080604195) CO2 TOTAL (test code = 27 mmol/L 23-31 9851265357) AGAP (test code = 2-16 3668333259) BUN (test code = 7 mg/dL 7-23 3850318504) GLUCOSE (test code = 87 mg/dL 70-110 4106044830) CREATININE (test code = 0.89 mg/dL 0.6-1.25 4145174288) TOTAL BILI (test code = 0.3 mg/dL 0.1-1.8 2414171883) CALCIUM (test code = 8.4 mg/dL 8.6-10.6 L 1217715817) T PROTEIN (test code = 6.7 g/dL 6.3-8.2 0204912677) ALBUMIN (test code = 3.5 g/dL 3.5-5 4877312532) ALK PHOS (test code = 81 U/L 34-122 3164260942) ALTv (test code = 13 U/L 5-50 1742-6) AST(SGOT) (test code = 22 U/L 13-40 5154873767) eGFR (test code = mL/min/1.73m2 6679022740) ROBERTO (test code = ROBERTO) Association of [...] tests). Lab Interpretation Abnormal (test code = 11958-5) [facility]PH[facility]20[facility] 13:12:27 Test Item Value Reference Range Interpretation Comments PHOSPHORUS (test code = 6611178778) 3.8 mg/dL 2.5-5 Lab Interpretation (test code = Normal 58538-0) [facility] CenterCOMP[facility] MET[facility]OLIC PANEL (49732)2022-05-12 13:12:27 Test Item Value Reference Range Interpretation Comments NA (test code = 139 mmol/L 135-145 8812040878) K (test code = 3.5 mmol/L 3.5-5 6171366161) CL (test code = 106 mmol/L 98-108 7298764358) CO2 TOTAL (test code = 27 mmol/L 23-31 0205439673) AGAP (test code = 2-16 1455203424) BUN (test code = 7 mg/dL 7-23 4840327390) GLUCOSE (test code = 87 mg/dL 70-110 9337308986) CREATININE (test code = 0.89 mg/dL 0.6-1.25 6322798901) TOTAL BILI (test code = 0.3 mg/dL 0.1-1.6 2530777617) CALCIUM (test code = 8.4 mg/dL 8.6-10.6 L 5134746470) T PROTEIN (test code = 6.7 g/dL 6.3-8.2 4394089805) ALBUMIN (test code = 3.5 g/dL 3.5-5 6906994057) ALK PHOS (test code = 81 U/L 34-122 2541092315) ALTv (test code = 13 U/L 5-50 1742-6) AST(SGOT) (test code = 22 U/L 13-40 2713298035) eGFR (test code = mL/min/1.73m2 6657196683) ROBERTO (test code = ROBERTO) Association of [...] tests). Lab Interpretation Abnormal (test code = 63314-1) [facility]20[facility] 13:12:27 Test Item Value Reference Range Interpretation Comments PHOSPHORUS (test code = 1736797481) 3.8 mg/dL 2.5-5 Lab Interpretation (test code = Normal 24003-9) [facility] WITH [id number] 13:09:25 Test Item Value Reference Range Interpretation [...] RDW-SD (test code = 39.2 fL 38.5-51.6 79451-7) RDW-CV (test code = 14.7 % 12.1-15.4 788-0) PLT (test code = See_Comment H [Automated 777-3) message] The sy stem which generated this result transmitted reference range : 150 - 328 10*3/ ?L. The reference r carlota was not used to interpret this result as normal/abnormal . MPV (test code = 10.1 fL 9.8-13 49758-4) NRBC/100 WBC (test See_Comment [Automat ed code = 6490967295) message] The system which generated this result transmitted reference range : 0.0 - 10.0 /100 WBCs. The refer ence range was not u sed to interpret th is result as normal/abnormal . NRBC x10^3 (test code See_Comment [Auto mated = 8020239713) message] The s ystem which generated this result transmitted reference range : 10*3/?L. The reference range was not used to interpret this result as normal/abnormal . GRAN MAT (NEUT) % 46.1 % (test code = 770-8) IMM GRAN % (test code 0.10 % = 1138215102) LYMPH % (test code = 33.9 % 736-9) MONO % (test code = 11.8 % 5905-5) EOS % (test code = 6.3 % 713-8) BASO % (test code = 1.8 % 706-2) GRAN MAT x10^3(ANC) 3.27 10*3/uL 1.99-6.95 (test code = 7020286166) IMM GRAN x10^3 (test 0-0.06 code = 2015453577) LYMPH x10^3 (test code 2.41 10*3/uL 1.09-3.23 = 731-0) MONO x10^3 (test code 0.84 10*3/uL 0.36-1.02 = 742-7) EOS x10^3 (test code = 0.45 10*3/uL 0.06-0.53 711-2) BASO x10^3 (test code 0.13 10*3/uL 0.01-0.09 H = 704-7) Lab Interpretation Abnormal (test code = 51352-2) [facility] WITH [id number] 13:09:25 Test Item Value Reference Range Interpretation Comments WBC (test code = See_Comment [Automated 3290-2) message] The sy stem which generated this result transmitted reference range : 4.20 - 10.70 10*3/?L. The reference range was not used to interpret this result as normal/abnormal . RBC (test code = See_Comment L [Automated 039-8) message] The sy stem which generated this [...] RDW-SD (test code = 39.2 fL 38.5-51.6 09310-7) RDW-CV (test code = 14.7 % 12.1-15.4 788-0) PLT (test code = See_Comment H [Automated 777-3) message] The sy stem which generated this result transmitted reference range : 150 - 328 10*3/ ?L. The reference r carlota was not used to interpret this result as normal/abnormal . MPV (test code = 10.1 fL 9.8-13 10663-4) NRBC/100 WBC (test See_Comment [Automat ed code = 6021035335) message] The system which generated this result transmitted reference range : 0.0 - 10.0 /100 WBCs. The refer ence range was not u sed to interpret th is result as normal/abnormal . NRBC x10^3 (test code See_Comment [Auto mated = 1488231775) message] The s ystem which generated this result transmitted reference range : 10*3/?L. The reference range was not used to interpret this result as normal/abnormal . GRAN MAT (NEUT) % 46.1 % (test code = 770-8) IMM GRAN % (test code 0.10 % = 1921233944) LYMPH % (test code = 33.9 % 736-9) MONO % (test code = 11.8 % 5905-5) EOS % (test code = 6.3 % 713-8) BASO % (test code = 1.8 % 706-2) GRAN MAT x10^3(ANC) 3.27 10*3/uL 1.99-6.95 (test code = 1280064691) IMM GRAN x10^3 (test 0-0.06 code = 2073828836) LYMPH x10^3 (test code 2.41 10*3/uL 1.09-3.23 = 731-0) MONO x10^3 (test code 0.84 10*3/uL 0.36-1.02 = 742-7) EOS x10^3 (test code = 0.45 10*3/uL 0.06-0.53 711-2) BASO x10^3 (test code 0.13 10*3/uL 0.01-0.09 H = 704-7) Lab Interpretation Abnormal (test code = 63384-8) [facility] CenterProth[facility]bin [facility] / [id number] 13:06:44 Test Item Value Reference Range Interpretation Comments PROTIME PATIENT (test See_Comment H [Auto mated message] code = 5964-2) The system [employer] generated this result transmitted ref erence range: 12.0 - 1 4.7 Seconds. The reference range was not used to int erpret this result as normal/abnormal . INR (test code = 6301-6) Nor mal INR <1.1; Warfarin Therap eutic range 2.0 to 3. 0 or 2.5 to 3.5, dep ending upon the indica tions. Lab Interpretation (test Abnormal code = 29980-7) [facility] CenterPro[facility] / [id number] 13:06:44 Test Item Value Reference Range Interpretation Comments PROTIME PATIENT (test See_Comment H [Auto mated message] code = 5964-2) The system [employer] generated this result transmitted ref erence range: 12.0 - 1 4.7 Seconds. The reference range was not used to int erpret this result as normal/abnormal . INR (test code = 6301-6) Nor mal INR <1.1; Warfarin Therap eutic range 2.0 to 3. 0 or 2.5 to 3.5, dep ending upon the indica tions. Lab Interpretation (test Abnormal code = 32268-4) [facility] [id number] 02:59:10 Test Item Value Reference Range Interpretation Comments ESR (test code = See_Comment H [Automated message] 97530-1) The system [facility] h generated this result transmitted ref erence range: 0 - 10 m m/HR. The reference r carlota was not used to interpret this result as normal/abnor mal. Lab Interpretation (test Abnormal code = 27747-8) [facility] [id number] 02:59:10 Test Item Value Reference Range Interpretation Comments ESR (test code = See_Comment H [Automated message] 59607-0) The system [employer] generated this result transmitted ref erence range: 0 - 10 m m/HR. The reference r carlota was not used to interpret this result as normal/abnor mal. Lab Interpretation (test Abnormal code = 53151-2) [facility] CenterGLYCOSYLATED HEM[facility]GLOBIN (A1C)2022-05-12 02:20:40 Test Item Value Reference Range Interpretation Comments HGB A1C (test code = 6.1 % 4-5.7 H 4548-4) ROBERTO (test code = ROBERTO) Reference RangesNormal: <5.7%Prediabetes: 5.7 - 6.4%Diabetes: > 6.5% Lab Interpretation (test Abnormal code = 00727-2) [facility]2022-05-12 02:20:40 Test Item Value Reference Range Interpretation Comments HGB A1C (test code = 6.1 % 4-5.7 H 4548-4) ROBERTO (test code = ROBERTO) Reference RangesNormal: <5.7%Prediabetes: 5.7 - 6.4%Diabetes: > 6.5% Lab Interpretation (test Abnormal code = 67506-3) [facility] (31391)2022-05-11 19:45:12 Test Item Value Reference Range Interpretation Comments NA (test code = 139 mmol/L 135-145 8070859955) K (test code = 4.1 mmol/L 3.5-5 2770011896) CL (test code = 105 mmol/L 98-108 3461438519) CO2 TOTAL (test code 24 mmol/L 23-31 = 3730664745) AGAP (test code = 2-16 2255161479) BUN (test code = 8 mg/dL 7-23 0264579706) GLUCOSE (test code = 84 mg/dL 70-110 1446633434) CREATININE (test code 0.93 mg/dL 0.6-1.25 = 1208551992) TOTAL BILI (test code 0.3 mg/dL 0.1-1.1 = 0548445835) CALCIUM (test code = 9.4 mg/dL 8.6-10.6 1429445227) T PROTEIN (test code 7.3 g/dL 6.3-8.2 = 1735454744) ALBUMIN (test code = 4.0 g/dL 3.5-5 1626500415) ALK PHOS (test code = 85 U/L 34-122 4096309271) ALTv (test code = 14 U/L 5-50 1742-6) AST(SGOT) (test code 21 U/L 13-40 = 2449109715) eGFR (test code = mL/min/1.73m2 3154458860) ROBERTO (test code = ROBERTO) Association of [...] or urine or abnormalities in imaging tests). [facility]. METABOLIC PANEL ([id number])2022-05-11 19:45:12 Test Item Value Reference Range Interpretation Comments NA (test code = 139 mmol/L 135-145 6448167125) K (test code = 4.1 mmol/L 3.5-5 1663982257) CL (test code = 105 mmol/L 98-108 1730976450) CO2 TOTAL (test code 24 mmol/L 23-31 = 5154283575) AGAP (test code = 2-16 0376361373) BUN (test code = 8 mg/dL 7-23 7017148612) GLUCOSE (test code = 84 mg/dL 70-110 0582459953) CREATININE (test code 0.93 mg/dL 0.6-1.25 = 3055687546) TOTAL BILI (test code 0.3 mg/dL 0.1-1.1 = 0484672919) CALCIUM (test code = 9.4 mg/dL 8.6-10.6 7408816299) T PROTEIN (test code 7.3 g/dL 6.3-8.2 = 9151529179) ALBUMIN (test code = 4.0 g/dL 3.5-5 1360258914) ALK PHOS (test code = 85 U/L 34-122 6736011163) ALTv (test code = 14 U/L 5-50 1742-6) AST(SGOT) (test code 21 U/L 13-40 = 1645532209) eGFR (test code = mL/min/1.73m2 3617038610) ROBERTO (test code = ROBERTO) Association of [...] or urine or abnormalities in imaging tests). [facility] Test Item Value Reference Range Interpretation Comments LIPASE (test code = 2210238789) 116 U/L 0-220 Lab Interpretation (test code = Normal 89164-0) [facility] Test Item Value Reference Range Interpretation Comments LIPASE (test code = 4880829611) 116 U/L 0-220 Lab Interpretation (test code = Normal 20244-6) [facility] WITH [id number] 19:33:50 Test Item Value Reference Range Interpretation Comments WBC (test code = See_Comment [Automated 6690-2) message] The sy stem which generated this result transmitted reference range : 4.20 - 10.70 10*3/?L. The reference range was not used to interpret this result as normal/abnormal . RBC (test code = See_Comment [Automated 539-8) message] The sy stem which generated this [...] RDW-SD (test code = 38.9 fL 38.5-51.6 05117-1) RDW-CV (test code = 14.7 % 12.1-15.4 788-0) PLT (test code = See_Comment H [Automated 777-3) message] The sy stem which generated this result transmitted reference range : 150 - 328 10*3/ ?L. The reference r carlota was not used to interpret this result as normal/abnormal . MPV (test code = 10.1 fL 9.8-13 11255-5) NRBC/100 WBC (test See_Comment [Automat ed code = 8906712568) message] The system which generated this result transmitted reference range : 0.0 - 10.0 /100 WBCs. The refer ence range was not u sed to interpret th is result as normal/abnormal . NRBC x10^3 (test code See_Comment [Auto mated = 5475810401) message] The s ystem which generated this result transmitted reference range : 10*3/?L. The reference range was not used to interpret this result as normal/abnormal . GRAN MAT (NEUT) % 50.3 % (test code = 770-8) IMM GRAN % (test code 0.00 % = 1999968408) LYMPH % (test code = 28.7 % 736-9) MONO % (test code = 13.9 % 5905-5) EOS % (test code = 5.3 % 713-8) BASO % (test code = 1.8 % 706-2) GRAN MAT x10^3(ANC) 3.14 10*3/uL 1.99-6.95 (test code = 2470977381) IMM GRAN x10^3 (test 0-0.06 code = 9432753572) LYMPH x10^3 (test code 1.79 10*3/uL 1.09-3.23 = 731-0) MONO x10^3 (test code 0.87 10*3/uL 0.36-1.02 = 742-7) EOS x10^3 (test code = 0.33 10*3/uL 0.06-0.53 711-2) BASO x10^3 (test code 0.11 10*3/uL 0.01-0.09 H = 704-7) Lab Interpretation Abnormal (test code = 67559-5) [facility] WITH [id number] 19:33:50 Test Item Value Reference Range Interpretation [...] RDW-SD (test code = 38.9 fL 38.5-51.6 82236-4) RDW-CV (test code = 14.7 % 12.1-15.4 788-0) PLT (test code = See_Comment H [Automated 777-3) message] The sy stem which generated this result transmitted reference range : 150 - 328 10*3/ ?L. The reference r carlota was not used to interpret this result as normal/abnormal . MPV (test code = 10.1 fL 9.8-13 46941-4) NRBC/100 WBC (test See_Comment [Automat ed code = 8152755263) message] The system which generated this result transmitted reference range : 0.0 - 10.0 /100 WBCs. The refer ence range was not u sed to interpret th is result as normal/abnormal . NRBC x10^3 (test code See_Comment [Auto mated = 1735754595) message] The s ystem which generated this result transmitted reference range : 10*3/?L. The reference range was not used to interpret this result as normal/abnormal . GRAN MAT (NEUT) % 50.3 % (test code = 770-8) IMM GRAN % (test code 0.00 % = 6669753713) LYMPH % (test code = 28.7 % 736-9) MONO % (test code = 13.9 % 5905-5) EOS % (test code = 5.3 % 713-8) BASO % (test code = 1.8 % 706-2) GRAN MAT x10^3(ANC) 3.14 10*3/uL 1.99-6.95 (test code = 2328006329) IMM GRAN x10^3 (test 0-0.06 code = 7545691833) LYMPH x10^3 (test code 1.79 10*3/uL 1.09-3.23 = 731-0) MONO x10^3 (test code 0.87 10*3/uL 0.36-1.02 = 742-7) EOS x10^3 (test code = 0.33 10*3/uL 0.06-0.53 711-2) BASO x10^3 (test code 0.11 10*3/uL 0.01-0.09 H = 704-7) Lab Interpretation Abnormal (test code = 77580-7) [facility] [id number] 03:41:38 Test Item Value Reference Range Interpretation Comments ABO & RH (test code O Positive Performe d at [facility] = 20) Laboratory Serv [facility] [address] [place], [place] [phone] Free: [phone] A No. [id number] IAT (test code = Negative Performed a t [facility] 1185) Laboratory [facility] [address] [place] [phone] Free: [phone] A No. [id number] [facility] MET[facility]OLIC PANEL (02090)2022-05-10 03:15:48 Test Item Value Reference Range Interpretation Comments NA (test code = 135 mmol/L 135-145 2108629627) K (test code = 4.2 mmol/L 3.5-5 9133255020) CL (test code = 104 mmol/L 98-108 2061202784) CO2 TOTAL (test code = 23 mmol/L 23-31 7507359361) AGAP (test code = 2-16 7009800718) BUN (test code = 9 mg/dL 7-23 0346595917) GLUCOSE (test code = 100 mg/dL 70-110 4452546639) CREATININE (test code = 0.89 mg/dL 0.6-1.25 7760641750) TOTAL BILI (test code = 0.3 mg/dL 0.1-1.1 2589005422) CALCIUM (test code = 8.5 mg/dL 8.6-10.6 L 1634758762) T PROTEIN (test code = 6.6 g/dL 6.3-8.2 0051000680) ALBUMIN (test code = 3.6 g/dL 3.5-5 2394344792) ALK PHOS (test code = 80 U/L 34-122 6862464820) ALTv (test code = 13 U/L 5-50 1742-6) AST(SGOT) (test code = 22 U/L 13-40 0937243226) eGFR (test code = mL/min/1.73m2 3266503147) ROBERTO (test code = ROBERTO) Association of [...] tests). Lab Interpretation Abnormal (test code = 90003-8) [facility] 03:15:08 Test Item Value Reference Range Interpretation Comments LIPASE (test code = 8473191284) 105 U/L 0-220 Lab Interpretation (test code = Normal 72503-3) [facility] WITH [id number] 03:02:08 Test Item Value Reference Range Interpretation [...] (test code = 38.0 fL 38.5-51.6 L 13838-3) RDW-CV (test code = 14.9 % 12.1-15.4 788-0) PLT (test code = See_Comment H [Automated 777-3) message] The sy stem which generated this result transmitted reference range : 150 - 328 10*3/ ?L. The reference r carlota was not used to interpret this result as normal/abnormal . MPV (test code = 9.8 fL 9.8-13 17001-5) NRBC/100 WBC (test See_Comment [Automat ed code = 4747826888) message] The system which generated this result transmitted reference range : 0.0 - 10.0 /100 WBCs. The refer ence range was not u sed to interpret th is result as normal/abnormal . NRBC x10^3 (test code See_Comment [Auto mated = 9395824754) message] The s ystem which generated this result transmitted reference range : 10*3/?L. The reference range was not used to interpret this result as normal/abnormal . GRAN MAT (NEUT) % 51.8 % (test code = 770-8) IMM GRAN % (test code 0.40 % = 7891138108) LYMPH % (test code = 29.9 % 736-9) MONO % (test code = 10.2 % 5905-5) EOS % (test code = 5.8 % 713-8) BASO % (test code = 1.9 % 706-2) GRAN MAT x10^3(ANC) 4.17 10*3/uL 1.99-6.95 (test code = 7631713304) IMM GRAN x10^3 (test 0.03 10*3/uL 0-0.06 code = 1604170157) LYMPH x10^3 (test code 2.41 10*3/uL 1.09-3.23 = 731-0) MONO x10^3 (test code 0.82 10*3/uL 0.36-1.02 = 742-7) EOS x10^3 (test code = 0.47 10*3/uL 0.06-0.53 711-2) BASO x10^3 (test code 0.15 10*3/uL 0.01-0.09 H = 704-7) Lab Interpretation Abnormal (test code = 28705-1) [facility] [id number] 14:20:24 Test Item Value Reference Range Interpretation Comments CRP (test code = 1.3 mg/dL See_Comment H [Automated message] 9999688034) The system ic h generated this result transmit eunice reference range : <=0.8. The refe rence range was not u sed to interpret th is result as normal/abnormal . Lab Interpretation (test Abnormal code = 78019-7) [facility] METABOLIC PANEL (NA, K, CL, CO2, GLUCOSE, BUN, CREATININE, CA)2022-04-28 11:21:59 Test Item Value Reference Range Interpretation Comments NA (test code = 134 mmol/L 135-145 L 6794623021) K (test code = 3.9 mmol/L 3.5-5 9797124862) CL (test code = 105 mmol/L 98-108 1297881788) CO2 TOTAL (test code = 26 mmol/L 23-31 1119018765) AGAP (test code = 2-16 1118243669) BUN (test code = 5 mg/dL 7-23 L 4765273275) GLUCOSE (test code = 76 mg/dL 70-110 0628280086) CREATININE (test code = 0.88 mg/dL 0.6-1.25 5551210522) CALCIUM (test code = 8.2 mg/dL 8.6-10.6 L 1500533806) eGFR (test code = mL/min/1.73m2 5602940640) ROBERTO (test code = ROBERTO) Association of [...] tests). Lab Interpretation Abnormal (test code = 93928-0) [facility] WITH [id number] 11:21:23 Test Item Value Reference Range Interpretation [...] RDW-SD (test code = 40.4 fL 38.5-51.6 14839-7) RDW-CV (test code = 15.3 % 12.1-15.4 788-0) PLT (test code = See_Comment H [Automated 777-3) message] The sy stem which generated this result transmitted reference range : 150 - 328 10*3/ ?L. The reference r carlota was not used to interpret this result as normal/abnormal . MPV (test code = 9.8 fL 9.8-13 47018-9) NRBC/100 WBC (test See_Comment [Automat ed code = 8341716426) message] The system which generated this result transmitted reference range : 0.0 - 10.0 /100 WBCs. The refer ence range was not u sed to interpret th is result as normal/abnormal . NRBC x10^3 (test code See_Comment [Auto mated = 1578481152) message] The s ystem which generated this result transmitted reference range : 10*3/?L. The reference range was not used to interpret this result as normal/abnormal . GRAN MAT (NEUT) % 51.9 % (test code = 770-8) IMM GRAN % (test code 0.50 % = 5347540735) LYMPH % (test code = 25.7 % 736-9) MONO % (test code = 17.4 % 5905-5) EOS % (test code = 3.2 % 713-8) BASO % (test code = 1.3 % 706-2) GRAN MAT x10^3(ANC) 3.09 10*3/uL 1.99-6.95 (test code = 3798009276) IMM GRAN x10^3 (test 0.03 10*3/uL 0-0.06 code = 5432572300) LYMPH x10^3 (test code 1.53 10*3/uL 1.09-3.23 = 731-0) MONO x10^3 (test code 1.04 10*3/uL 0.36-1.02 H = 742-7) EOS x10^3 (test code = 0.19 10*3/uL 0.06-0.53 711-2) BASO x10^3 (test code 0.08 10*3/uL 0.01-0.09 = 704-7) Lab Interpretation Abnormal (test code = 23418-6) [facility] 11:17:00 Test Item Value Reference Range Interpretation Comments MAGNESIUM (test code = 2463586173) 1.7 mg/dL 1.7-2.4 Lab Interpretation (test code = Normal 96237-2) [facility] CenterABORH Confirmation (Lab Only)2022-04-27 17:22:22 Test Item Value Reference Range Interpretation Comments ABO & RH (test code O Positive Performe d at [facility] = 20) Laboratory Serv [facility] Blood [facility]1 [address] [place] [phone] Free: [phone] A No. [id number] [facility] - ONCE [id number] 16:14:13 Test Item Value Reference Range Interpretation Comments ABO & RH (test code O Positive Performe d at [facility] = 20) Laboratory Serv [facility] [address] [place] [phone] Free: [phone] A No. [id number] IAT (test code = Negative Performed a t [facility] 1185) Laboratory Serv [facility] [address] [place] [address]Bahf Free: [phone] A No. [id number] [facility] CenterACTIVATED PARTIAL THRMPLAS [id number] 16:10:24 Test Item Value Reference Range Interpretation Comments APTT Patient (test See_Comment [Automat ed code = 3173-2) message] The system which generated this result transmitted reference range : 23 - 38 Seconds . The reference range was not used to interpr et this result as normal/abnormal . ROBERTO (test code = ROBERTO) The [facility] patient population mean normal value for aPTT is 30 seconds. Lab Interpretation Normal (test code = 60326-3) [facility] CenterProthrombin Time / [id number] 16:08:28 Test Item Value Reference Range Interpretation [...] tions. Lab Interpretation (test Normal code = 11124-6) [facility] CenterTROPONIN [id number] 15:53:25 Test Item Value Reference Interpretation Comments Range TROPONIN I (test See_Comment [Automated code = 5915286597) message] The system which generated this result [...] biotin. Lab Interpretation Normal (test code = 41853-9) [facility]. METABOLIC PANEL ([id number])2022-04-27 15:42:03 Test Item Value Reference Range Interpretation Comments NA (test code = 139 mmol/L 135-145 4566927376) K (test code = 4.1 mmol/L 3.5-5 5523099428) CL (test code = 105 mmol/L 98-108 7862537131) CO2 TOTAL (test code = 27 mmol/L 23-31 3438317809) AGAP (test code = 2-16 2504184985) BUN (test code = 6 mg/dL 7-23 L 2030658807) GLUCOSE (test code = 96 mg/dL 70-110 9264141802) CREATININE (test code = 0.87 mg/dL 0.6-1.25 1263426634) TOTAL BILI (test code = 0.3 mg/dL 0.1-1.4 0940774025) CALCIUM (test code = 9.1 mg/dL 8.6-10.6 3992035670) T PROTEIN (test code = 6.9 g/dL 6.3-8.2 3278430501) ALBUMIN (test code = 3.6 g/dL 3.5-5 6231062793) ALK PHOS (test code = 89 U/L 34-122 7015763368) ALTv (test code = 12 U/L 5-50 1742-6) AST(SGOT) (test code = 17 U/L 13-40 6768013445) eGFR (test code = mL/min/1.73m2 9359967909) ROBERTO (test code = ROBERTO) Association of [...] tests). Lab Interpretation Abnormal (test code = 30180-4) [facility]2022-09-21 15:42:03 Test Item Value Reference Range Interpretation Comments MAGNESIUM (test code = 6855385748) 1.9 mg/dL 1.7-2.4 Lab Interpretation (test code = Normal 44642-2) [facility]2022-[facility] 15:42:03 Test Item Value Reference Range Interpretation Comments LIPASE (test code = 1848185324) 115 U/L 0-220 Lab Interpretation (test code = Normal 36170-0) [facility] WITH [id number] 15:32:42 Test Item Value Reference Range Interpretation [...] RDW-SD (test code = 39.8 fL 38.5-51.6 74958-9) RDW-CV (test code = 15.1 % 12.1-15.4 788-0) PLT (test code = See_Comment H [Automated 777-3) message] The sy stem which generated this result transmitted reference range : 150 - 328 10*3/ ?L. The reference r carlota was not used to interpret this result as normal/abnormal . MPV (test code = 9.5 fL 9.8-13 L 24664-7) NRBC/100 WBC (test See_Comment [Automat ed code = 6555817015) message] The system which generated this result transmitted reference range : 0.0 - 10.0 /100 WBCs. The refer ence range was not u sed to interpret th is result as normal/abnormal . NRBC x10^3 (test code See_Comment [Auto mated = 9433410632) message] The s ystem which generated this result transmitted reference range : 10*3/?L. The reference range was not used to interpret this result as normal/abnormal . GRAN MAT (NEUT) % 51.9 % (test code = 770-8) IMM GRAN % (test code 0.30 % = 8224915656) LYMPH % (test code = 31.1 % 736-9) MONO % (test code = 13.0 % 5905-5) EOS % (test code = 2.5 % 713-8) BASO % (test code = 1.2 % 706-2) GRAN MAT x10^3(ANC) 3.35 10*3/uL 1.99-6.95 (test code = 2730604390) IMM GRAN x10^3 (test 0-0.06 code = 9100819159) LYMPH x10^3 (test code 2.01 10*3/uL 1.09-3.23 = 731-0) MONO x10^3 (test code 0.84 10*3/uL 0.36-1.02 = 742-7) EOS x10^3 (test code = 0.16 10*3/uL 0.06-0.53 711-2) BASO x10^3 (test code 0.08 10*3/uL 0.01-0.09 = 704-7) Lab Interpretation Abnormal (test code = 69097-2) [facility]- [facility] 1 [id number] 08:28:00Patient Name: ALEX BURROUGHS Unit No: [id number] EXAMS: CPT: [id number] XR CHEST 1 V 87470 History: Chest pain CHEST 1 VIEW FINDINGS: [...] (0831) BATCH NO: N/A Name: ALEX BURROUGHS [facility] Phys: Sky Starks MD [address] : 1975 Age: 44 Sex: [place] [id number] Loc: N.ERS Exam Date: 05/23/2019 Status: REG ER PH: FAX: PAGE 1 Signed [id number] 07:18:00 Test Item Value Reference Range Interpretation Comments TROPONIN-I (test code = TROPI) <0.020 ng/mL 0.000-0.034 N BASIC METABOLIC [id number] 07:14:00 Test Item Value Reference Range Interpretation [...] mg/dL 8.5-10.5 N = CA) CBC W/AUTO [id number] 07:10:00 Test Item Value Reference Range Interpretation [...]
[2022-08-25] MEDS ORDERED: CIPROFLOXACIN 400mg IV 400 MG/200 ML BAG IV ONE (22:09)
[2022-08-25] MEDS ORDERED: METRONIDAZOLE 500mg IVPB 500 MG/100 ML BAG IV ONE (22:09)
[2022-08-25] MEDS ORDERED: MORPHINE 4 MG/ML SYR ONE (22:09)
[2022-08-25] MEDS ORDERED: ONDANSETRON 4 MG/2 ML VIAL ONE (22:09)
[2022-08-25] MEDS ORDERED: FAMOTIDINE 20 MG/2 ML VIAL IV ONE (22:09)
[2022-08-25] MEDS ORDERED: NA CHLORIDE 0.9% 1,000 ML ONE (22:10)
[2022-08-25 22:54] LABS: Absolute Lymphocytes (CBC) 1.6 K/uL (0.7-4.9); Hematocrit 37.9 % (39.6-49.0); MCV 71.6 fL (80-100); MPV 8.3 fL (7.6-11.3)
[2022-08-25 23:16] LABS: Albumin 3.4 g/dL (3.4-5.0); Bilirubin Total 0.2 mg/dL (0.2-1.0); Potassium 3.5 mmol/L (3.5-5.1); Protein, Total 7.2 g/dL (6.4-8.2)
[2022-08-25 23:23] LABS: Blood Morphology Comment NOTED (NOT SEEN); Platelet Estimate ADEQ; Platelets, Giant OCC; White Blood Cell Scan OK (OK)
[2022-08-25 23:24] LABS: Anisocytosis 1+; Ovalocytes 1+; Teardrop Cell 1+
[2022-08-25 23:37] LABS: Urine Blood Negative (Negative); Urine Glucose Negative (Negative); Urine Protein 1+ (Negative); Urine Specific Gravity >=1.030 (1.005-1.030)
[2022-08-25] MEDS ORDERED: METHYLPREDNISOLONE 125 MG INJ ONE (23:53)
--- NOTE | 2022-08-26 00:23 | ER ---
Nurse's Notes [facility] Name: Wicho Weeks Age: 47 yrs Sex: Male : 1975 Arrival Date: 08/25/2022 Time: 21:07 Bed 18 Private MD: Diagnosis: Abdominal pain, Generalized;Left sided colitis-MILD DIFFUSE THICKEN CECUM AND ASCENDING COLON;GI Bleed/ Gastrointestinal hemorrhage, unspecified;Gastritis, unspecified Presentation: 08/25 21:28 Chief complaint: Patient states: "I am having a lot of blood come out and I am pooping vc1 a lot. I am nauseous and my stomach and butt hurts.". Coronavirus screen: Vaccine status: Patient reports being unvaccinated. At this time, the client does not indicate any symptoms associated with coronavirus-19. Ebola Screen: Patient negative for fever greater than or equal to 101.5 degrees Fahrenheit, and additional compatible Ebola Virus Disease symptoms Patient denies exposure to infectious person. Patient denies travel to an Ebola-affected area in the 21 days before illness onset. No symptoms or risks identified at this time. Initial Sepsis Screen: Does the patient meet any 2 criteria? No. Patient's initial sepsis screen is negative. Does the patient have a suspected source of infection? Yes: Other: colitis. Risk Assessment: Do you want to hurt yourself or someone else? Patient reports no desire to harm self or others. Note "I ran out of steroids, when I take them I don't bleed, I'm not nauseous and no pain". Onset of symptoms is unknown. 21:28 Method Of Arrival: Ambulatory vc1 21:28 Acuity: DRE 4 vc1 Triage Assessment: 21:31 General: Appears in no apparent distress. Behavior is calm, cooperative, appropriate vc1 for age. Pain: Complains of pain in abdomen and anus Pain does not radiate. Pain currently is 10 out of 10 on a pain scale. EENT: No deficits noted. No signs and/or symptoms were reported regarding the EENT system. Neuro: No deficits noted. Cardiovascular: No deficits noted. Respiratory: Airway is patent Trachea midline Respiratory effort is even, unlabored, Respiratory pattern is regular, symmetrical. GI: Reports lower abdominal pain, upper abdominal pain, diarrhea, rectal bleeding, bloody stool, nausea. : No deficits noted. No signs and/or symptoms were reported regarding the genitourinary system. Derm: No deficits noted. No signs and/or symptoms reported regarding the dermatologic system. Musculoskeletal: No deficits noted. No signs and/or symptoms reported regarding the musculoskeletal system. Historical: - Allergies: 21:31 No Known Allergies; vc1 - Home Meds: 21:31 Unable to obtain [Active]; vc1 - PMHx: 21:31 Chronic Abdominal Pain; Colitis; GI Bleed; vc1 - PSHx: 21:31 Rectal abscess removal; vc1 - Immunization history:: Client reports having NOT received the Covid vaccine. - Social history:: Smoking status: Patient denies any tobacco usage or history of. Screenin:30 [facility] ED Fall Risk Assessment (Adult) History of falling in the last 3 months, eh3 including since admission No falls in past 3 months (0 pts) Confusion or Disorientation No (0 pts) Intoxicated or Sedated No (0 pts) Impaired Gait No (0 pts) Mobility Assist Device Used No (0 pt) Altered Elimination Yes (1 pt) Score/Fall Risk Level 0 - 2 = Low Risk. 21:33 Abuse screen: Denies threats or abuse. Nutritional screening: No deficits noted. vc1 Tuberculosis screening: No symptoms or risk factors identified. Assessment: 21:30 General: Appears in no apparent distress. uncomfortable, Behavior is calm, cooperative, eh3 appropriate for age. Pain: Complains of pain in abdomen and pelvis and anus. Neuro: Level of Consciousness is awake, alert, obeys commands, Oriented to person, place, time, situation. Cardiovascular: Capillary refill < 3 seconds Patient's skin is warm and dry. Respiratory: Airway is patent Respiratory effort is even, unlabored, Respiratory pattern is regular, symmetrical. GI: Abdomen is round non-distended, Stools are reported to be diarrhea. Reports lower abdominal pain, upper abdominal pain, cramping, diarrhea, rectal bleeding, bloody stool, nausea. : No signs and/or symptoms were reported regarding the genitourinary system. EENT: No signs and/or symptoms were reported regarding the EENT system. Derm: No signs and/or symptoms reported regarding the dermatologic system. Skin is pink, warm \\T\\ dry. Musculoskeletal: No signs and/or symptoms reported regarding the musculoskeletal system. Circulation, motion, and sensation intact. Range of motion: intact in all extremities. 22:30 Reassessment: Patient appears in no apparent distress at this time. Patient and/or eh3 family updated on plan of care and expected duration. Pain level reassessed. Patient is alert, oriented x 3, equal unlabored respirations, skin warm/dry/pink. 23:30 Reassessment: Patient appears in no apparent distress at this time. Patient and/or eh3 family updated on plan of care and expected duration. Pain level reassessed. Patient is alert, oriented x 3, equal unlabored respirations, skin warm/dry/pink. 08/26 00:30 Reassessment: Patient and/or family updated on plan of care and expected duration. Pain ha1 level reassessed. Patient is alert, oriented x 3, equal unlabored respirations, skin warm/dry/pink. General: Appears comfortable, Behavior is calm, cooperative. Neuro: Level of Consciousness is awake, alert, obeys commands, Oriented to person, place, time, situation. Respiratory: Airway is patent Respiratory effort is even, unlabored, Respiratory pattern is regular, symmetrical. Vital Signs: 08/25 21:28 BP 152 / 95; Pulse 88; Resp 18; Temp 97.9; Pulse Ox 97% on R/A; Weight 90.72 kg; Height vc1 5 ft. 9 in. (175.26 cm); Pain 10/10; 21:30 BP 148 / 122; Pulse 92; Resp 18; Pulse Ox 98% on R/A; eh3 22:30 BP 152 / 95; Pulse 89; Resp 18; Pulse Ox 97% on R/A; eh3 08/26 00:30 BP 136 / 80; Pulse 82; Resp 18 S; Pulse Ox 99% on R/A; ha1 08/25 21:28 Body Mass Index 29.53 (90.72 kg, 175.26 cm) vc1 ED Course: 08/25 21:07 Patient arrived in ED. rg4 21:25 Kalina Cardoso, RN is Primary Nurse. eh3 21:30 Patient has correct armband on for positive identification. Pulse ox on. NIBP on. Door 3 closed. Noise minimized. Warm blanket given. 21:30 Arm band placed on. eh3 21:31 Triage completed. vc1 21:43 Kenny Valenzuela MD is Attending Physician. luci 22:30 Missed attempt(s): 22 gauge in left forearm. Bleeding controlled, band aid applied, vc1 catheter tip intact. 22:37 Inserted saline lock: 22 gauge in right antecubital area, using aseptic technique. vc1 Blood collected. 23:40 Stool Culture Sent. eh3 23:40 Fecal Leukocyte Stain Sent. eh3 23:56 CT Abd/Pelvis - IV Contrast Only In Process Unspecified. EDMI 08/26 00:20 Thang Herrmann MD is Referral Physician. [facility] 01:27 No provider procedures requiring assistance completed. IV discontinued, intact, vc1 bleeding controlled, No redness/swelling at site. Pressure dressing applied. Administered Medications: 08/25 22:56 Drug: Pepcid (famotidine) 20 mg Route: IVP; Site: right antecubital; 3 23:40 Follow up: Response: Pain is decreased [facility] 22:56 Drug: Zofran (Ondansetron) 4 mg Route: IVP; Site: right antecubital; 3 23:40 Follow up: Response: Nausea is decreased [facility] 22:56 Drug: morphine 4 mg Route: IVP; Infused Over: 4 mins; Site: right antecubital; eh3 23:40 Follow up: Response: Pain is decreased 3 23:30 Drug: NS 0.9% 1000 ml Route: IV; Rate: 1 bolus; Site: right antecubital; 3 08/26 00:00 Drug: Cipro (ciprofloxacin) 400 mg Volume: 200 ml; Route: IVPB; Infused Over: 60 mins; eh3 Site: right antecubital; 00:00 Drug: Flagyl (metroNIDAZOLE) 500 mg Volume: 100 ml; Route: IVPB; Rate: 200 ml/hr; eh3 Infused Over: 30 mins; Site: right antecubital; 00:00 Drug: SOLU-Medrol (methylPrednisoLONE) 125 mg Route: IVP; Site: right antecubital; 3 01:16 Not Given (Other Intervention Used): Phenergan (promethazine) 25 mg IM once vc1 Medication: 08/25 21:33 VIS not applicable for this client. vc1 Outcome: 08/26 00:23 Discharge ordered by . [facility] :27 Discharged to home ambulatory. vc1 :27 Condition: good :27 Discharge instructions given to patient, Instructed on discharge instructions, follow up and referral plans. medication usage, Demonstrated understanding of instructions, follow-up care, medications, Prescriptions given X 4. 01:27 Patient left the ED. vc1 Signatures: Dispatcher [employer] EDMS Kenny Valenzuela MD MD cha Garcia, Rubi rg4 Joselin Meier RN RN vc1 Kalina Cardoso RN RN eh3 Greta Wright RN RN ha1
--- NOTE | 2022-08-26 00:24 | EDPHYS ---
Physician Documentation [facility] Name: Wicho Weeks Age: 47 yrs Sex: Male : 1975 Arrival Date: 08/25/2022 Time: 21:07 Bed 18 Private MD: JACKIE Physician Kenny Valenzuela HPI: 08/25 23:20 This 47 yrs old Male presents to ER via Ambulatory with complaints of Bloody luci Stools, Nausea. 23:20 The patient presents to the emergency department with nausea, abdominal pain, of the luci right upper quadrant, left upper quadrant, right lower quadrant and left lower quadrant, described as crampy. Onset: The symptoms/episode began/occurred 2 day(s) ago. Possible causes: flare up of bowel problem, ulcerative colitis. The symptoms are aggravated by nothing. The symptoms are alleviated by nothing. Associated signs and symptoms: Pertinent positives: abdominal pain, GI bleeding. Severity of symptoms: At their worst the symptoms were moderate today, in the emergency department the symptoms are unchanged despite home interventions. The patient has experienced similar episodes in the past, multiple times. Historical: - Allergies: 21:31 No Known Allergies; vc1 - Home Meds: 21:31 Unable to obtain [Active]; vc1 - PMHx: 21:31 Chronic Abdominal Pain; Colitis; GI Bleed; vc1 - PSHx: 21:31 Rectal abscess removal; vc1 - Immunization history:: Client reports having NOT received the Covid vaccine. - Social history:: Smoking status: Patient denies any tobacco usage or history of. ROS: 23:22 Constitutional: Negative for fever, chills, and weight loss, Eyes: Negative for injury, luci pain, redness, and discharge, ENT: Negative for injury, pain, and discharge, Neck: Negative for injury, pain, and swelling, Cardiovascular: Negative for chest pain, palpitations, and edema, Respiratory: Negative for shortness of breath, cough, wheezing, and pleuritic chest pain, Back: Negative for injury and pain, : Negative for injury, bleeding, discharge, and swelling, MS/Extremity: Negative for injury and deformity, Skin: Negative for injury, rash, and discoloration, Neuro: Negative for headache, weakness, numbness, tingling, and seizure, Psych: Negative for depression, anxiety, suicide ideation, homicidal ideation, and hallucinations, Allergy/Immunology: Negative for hives, rash, and allergies, Endocrine: Negative for neck swelling, polydipsia, polyuria, polyphagia, and marked weight changes. 23:22 Abdomen/GI: Positive for abdominal pain, nausea and vomiting, of the right upper quadrant, left upper quadrant, right lower quadrant and left lower quadrant. Exam: 23:22 Constitutional: This is a well developed, well nourished patient who is awake, alert, luci and in no acute distress. Head/Face: Normocephalic, atraumatic. Eyes: Pupils equal round and reactive to light, extra-ocular motions intact. Lids and lashes normal. Conjunctiva and sclera are non-icteric and not injected. Cornea within normal limits. Periorbital areas with no swelling, redness, or edema. ENT: Nares patent. No nasal discharge, no septal abnormalities noted. Tympanic membranes are normal and external auditory canals are clear. Oropharynx with no redness, swelling, or masses, exudates, or evidence of obstruction, uvula midline. Mucous membranes moist. Neck: Trachea midline, no thyromegaly or masses palpated, and no cervical lymphadenopathy. Supple, full range of motion without nuchal rigidity, or vertebral point tenderness. No Meningismus. Chest/axilla: Normal chest wall appearance and motion. Nontender with no deformity. No lesions are appreciated. Cardiovascular: Regular rate and rhythm with a normal S1 and S2. No gallops, murmurs, or rubs. Normal PMI, no JVD. No pulse deficits. Respiratory: Lungs have equal breath sounds bilaterally, clear to auscultation and percussion. No rales, rhonchi or wheezes noted. No increased work of breathing, no retractions or nasal flaring. Back: No spinal tenderness. No costovertebral tenderness. Full range of motion. Male : Normal genitalia with no discharge or lesions. Skin: Warm, dry with normal turgor. Normal color with no rashes, no lesions, and no evidence of cellulitis. MS/ Extremity: Pulses equal, no cyanosis. Neurovascular intact. Full, normal range of motion. Neuro: Awake and alert, GCS 15, oriented to person, place, time, and situation. Cranial nerves II-XII grossly intact. Motor strength 5/5 in all extremities. Sensory grossly intact. Cerebellar exam normal. Normal gait. Psych: Awake, alert, with orientation to person, place and time. Behavior, mood, and affect are within normal limits. 23:22 Abdomen/GI: Inspection: distension, that is mild, Bowel sounds: active, Liver: no appreciated palpable abnormalities, Hernia: not appreciated. Vital Signs: 21:28 BP 152 / 95; Pulse 88; Resp 18; Temp 97.9; Pulse Ox 97% on R/A; Weight 90.72 kg; Height vc1 5 ft. 9 in. (175.26 cm); Pain 10/10; 21:30 BP 148 / 122; Pulse 92; Resp 18; Pulse Ox 98% on R/A; eh3 22:30 BP 152 / 95; Pulse 89; Resp 18; Pulse Ox 97% on R/A; 3 08/26 00:30 BP 136 / 80; Pulse 82; Resp 18 S; Pulse Ox 99% on R/A; ha1 08/25 21:28 Body Mass Index 29.53 (90.72 kg, 175.26 cm) vc1 MDM: 08/25 21:43 Patient medically screened. [facility] 23:23 Differential diagnosis: Nonspecific abd pain, gastritis, pancreatitis, appendicitis, luci diverticulitis, viral gastroenteritis, gastroenteritis, varices. Data reviewed: vital signs, nurses notes, lab test result(s), EKG, radiologic studies, CT scan. Consideration of Admission/Observation Patient was admitted/placed on observation. Management of patient was discussed with the following: Hospitalist: jonny mohr. I considered the following discharge prescriptions or medication management in the emergency department Medications were administered in the Emergency Department. See 21:44 Order name: CBC with Diff; Complete Time: 00:10 [facility] 08/25 21:44 Order name: CMP; Complete Time: 23:20 [facility] 08/25 21:44 Order name: Lipase; Complete Time: 23:20 [facility] 08/25 21:44 Order name: Fecal Leukocyte Stain [facility] 08/25 21:44 Order name: Stool Culture [facility] 08/25 22:59 Order name: CBC Smear Scan; Complete Time: 00:10 [facility] 08/25 21:44 Order name: CT Abd/Pelvis - IV Contrast Only [facility] 08/25 23:38 Order name: Urine Dipstick-Ancillary; Complete Time: 00:10 [facility] 08/25 21:44 Order name: IV Saline Lock; Complete Time: 22:56 [facility] 08/25 21:44 Order name: Labs collected and sent; Complete Time: 22:56 [facility] 08/25 21:44 Order name: Urine Dipstick-Ancillary (obtain specimen); Complete Time: 23:40 [facility] Administered Medications: 22:56 Drug: Pepcid (famotidine) 20 mg Route: IVP; Site: right antecubital; 3 23:40 Follow up: Response: Pain is decreased 3 22:56 Drug: Zofran (Ondansetron) 4 mg Route: IVP; Site: right antecubital; 3 23:40 Follow up: Response: Nausea is decreased 3 22:56 Drug: morphine 4 mg Route: IVP; Infused Over: 4 mins; Site: right antecubital; 3 23:40 Follow up: Response: Pain is decreased [facility] 23:30 Drug: NS 0.9% 1000 ml Route: IV; Rate: 1 bolus; Site: right antecubital; [facility] 08/26 00:00 Drug: Cipro (ciprofloxacin) 400 mg Volume: 200 ml; Route: IVPB; Infused Over: 60 mins; eh3 Site: right antecubital; 00:00 Drug: Flagyl (metroNIDAZOLE) 500 mg Volume: 100 ml; Route: IVPB; Rate: 200 ml/hr; eh3 Infused Over: 30 mins; Site: right antecubital; 00:00 Drug: SOLU-Medrol (methylPrednisoLONE) 125 mg Route: IVP; Site: right antecubital; 3 01:16 Not Given (Other Intervention Used): Phenergan (promethazine) 25 mg IM once vc1 Disposition Summary: 08/26/22 00:23 Discharge Ordered Location: Home luci Problem: new luci Symptoms: have improved luci Condition: Stable luci Diagnosis - Abdominal pain, Generalized luci - Left sided colitis - MILD DIFFUSE THICKEN CECUM AND ASCENDING COLON luci - GI Bleed/ Gastrointestinal hemorrhage, unspecified luci - Gastritis, unspecified luci Followup: luci - With: Private Physician - When: 2 - 3 days - Reason: Recheck today's complaints, Continuance of care, Re-evaluation by your physician Followup: luci - With: Thang Herrmann MD - When: 2 - 3 days - Reason: Recheck today's complaints, Re-evaluation by your physician Discharge Instructions: - Discharge Summary Sheet luci - Abdominal Pain, Adult luci - Gastrointestinal Bleeding luci - Abdominal Pain, Adult, [id number] [facility] - Ulcerative Colitis, Adult [facility] Forms: - Medication Reconciliation Form [facility] - Thank You Letter [facility] - Antibiotic Education [facility] - Prescription Opioid Use [facility] Prescriptions: - Flagyl 500 mg Oral Tablet - take 1 tablet by ORAL route every 8 hours for 10 days; 30 tablet; Refills: 0, [facility] Product Selection Permitted - Protonix 40 mg Oral Tablet - take 1 tablet by ORAL route once daily; 30 tablet; Refills: 0, Product [facility] Selection Permitted - Cipro 500 mg Oral Tablet - take 1 tablet by ORAL route every 12 hours for 7 days; 14 tablet; Refills: 0, [facility] Product Selection Permitted - Prednisone 20 mg Oral Tablet - take 2 tablets by ORAL route once daily for 5 days; 10 tablet; Refills: 0, [facility] Product Selection Permitted Signatures: Dispatcher [employer] Kenny Ward MD MD cha Calcote, Vanessa, RN RN vc1 Kalina Cardoso RN RN eh3
[2022-08-26] MEDS ORDERED: ONDANSETRON 4 MG/2 ML VIAL ONE (01:17)
[2022-08-26 01:37] VITALS: TEMP 97.9
[2022-08-26 01:53] VITALS: BP 136/80; O2SAT 99
--- NOTE | 2022-08-26 20:41 | RAD REPORT ---
EXAM DESCRIPTION: CT - Abdomen Pelvis W Contrast - 08/26/2022 6:14 am CLINICAL HISTORY 47 years Male Abdominal pain, acute, nonlocalized TECHNIQUE: Contiguous axial images obtained through the abdomen and pelvis following administration of intravenous contrast. Coronal and sagittal reformatted images provided. This CT exam was performed according to our departmental dose-optimization program, which includes on e or more of the following dose reduction techniques: automated exposure control, adjustment of the m A and/or kV according to patient size, and/or use of iterative reconstruction technique. COMPARISON: No prior exams provided for comparison. FINDINGS: Possible mild gastric wall thickening. Normal small bowel and appendix. Mild diffuse thick ening of the cecum and ascending colon. No other bowel wall thickening. No bowel obstruction, pneumat osis, free intraperitoneal air, abscess, or ascites. No abdominal or pelvic lymphadenopathy. Lingular atelectasis. The liver, biliary tree, gallbladder, pancreas, spleen, adrenal glands, kidneys , urinary bladder, and osseous structures are unremarkable. IMPRESSION: Possible mild gastritis. Mild proximal colitis. Findings could be infectious or inflamma tory. No bowel obstruction or perforation. Normal appendix. Electronically signed by: Leyda Curiel MD 08/26/2022 12:12 AM INSTRUCTIONAL INTERVENTIONIST Due to temporary technical issues with the PACS/Fluency reporting system, reports are being signed by the in house radiologists without review as a courtesy to insure prompt reporting. The interpreting radiologist is fully responsible for the content of the report.
== END 2022-08-26 01:27 | disposition home or self-care (01) ==
LOC: ER 21:05
DX: K51.511 Left sided colitis with rectal bleeding (principal); K29.70 Gastritis, unspecified, without bleeding
CPT/HCPCS: 36415; 74177; 80053; 81003; 83690; 85025; 87045; 87046; 89055; 96374; 96375; 99284; J0744; J2405; J2930; J7030; Q9967

== ENCOUNTER 2022-09-08 20:29 | Emergency (ER) | payer SELFPAY ==
--- OUTSIDE RECORDS SUMMARY | 2022-09-08 20:36 | XMS REPORT | Continuity of Care Document ---
:1975 Author Organization [facility] t Address [address] [place] [address] Care Team Providers Name Role Phone TYE FONSECA Primary Care Physician Unavailable ANA PEACOCK Attending Clinician Unavailable ELLI HARLEY Attending Clinician Unavailable Elli Harley DO Attending Clinician JUSTIN BAPTISTE Attending Clinician Unavailable Justin Baptiste MD Attending Clinician Doctor Unassigned, [place] Attending Clinician Unavailable RAYRAY GAMEZ Attending Clinician [...] Clinician Unavailable RJ ADDISON Attending Clinician Unavailable ELLI HARLEY Admitting Clinician Unavailable JACI ESTRELLA Admitting Clinician Unavailable [...] Univers stools stools 0-05 ity of 00:00: [address] Obesity Obesity Disease Active 2021-08 Univers (BMI (BMI 0-05 ity of 30-39.9) 30-39.9) 00:00: [address] Proctocoli Proctocoli Disease Active U nivers tis tis 9-21 ity of 00:00: [address] Allergies, Adverse Reactions, Alerts Allergy Allergy Status Severity Reaction(s) Onset Inactive Treating Comm ents Source Name Type Date Date Clinician No Known DA Active U 2018-08 [facility] Allergie 0-17 [facility] 00:00: Health 00 are [facility] st NO KNOWN Drug Active Univers ALLERGIE Class ity of S [facility] Social History Social Habit Start Date Stop Date Quantity Comments Source History of Passive smoker [facility] tobacco use [facility] Exposure to 2022-08-14 2022-08-[address] [facility] SARS-CoV-2 00:00:00 14:04:00 [facility] (event) [place] Alcohol intake 2022-08-24 2022-08-24 Ex-drinker [facility] 00:00:00 00:00:00 (finding) [facility] Education 2022-05-11 2022-05-[address] [facility] 00:00:00 00:00:[address] [facility] Tobacco use and 2022-04-27 2022-04-27 Smokeless tobacco Un iversity of exposure 00:00:00 00:00:00 non-user [facility] Sex Assigned At [birth year] Universit y of 00:00:00 00:00:[address] [facility] Smoking Status Start Date Stop Date Source Ex-smoker 2022-04-27 00:00:00 2022-04-27 00:00:00 [facility] Medications Ordered Filled Start Stop Current Ordering Indication Dosage Frequency Signature Comments Components Source Medication Medication Date Date Medication? Clinician (SIG) Name Name ketorolac 2022- No 15mg 15 mg, Unive rs (TORADOL) 08-25 Slow IV ity of injection 01:15: 00:23 Push, [place] 15 mg 00 :00 ONCE, 1 Medical dose, On Branch 08/24/22 at 1915, JANNA iopamidol 2022- No [id number] 105mL 105 mL, Univers (ISOVUE 08-25 Intravenou [...] 08/24/22 at 1700, JANNA ondansetron 0 Yes [id number] 4mg Take 1 Univers 4 mg 1-18 tablet by ity of disintegrat 00:00: mouth [place] ing tablet 00 every 8 Medica l (eight) Branch hours as needed for Nausea and Vomiting (N/V). dicyclomine 2022-0 Yes [id number] 20mg Take 1 Univers 20 mg 1-18 tablet by ity of tablet 00:00: mouth in [place] 00 the Medical morning Branch and 1 [...] at 2230, 1 mL predniSONE 2021-08 Yes [id number] Take 1 po Univers 20 mg 1-26 tid x 2 ity of tablet 00:00: days, then 00 take 1 po Medical bid x 3 Branch days, then take 1 po daily x 5 days. predniSONE 2021-08 Yes [id number] Take 1 po Univers 20 mg 1-26 tid x 2 ity of tablet 00:00: days, then 00 take 1 po Medical bid x 3 Branch days, then take 1 po daily x 5 days. famotidine 2021-08- Yes [id number] 20mg Take 1 Univers (PEPCID) 20 09-01 12-12 tablet by it y of mg tablet 00:00: 05:59 mouth in [place] 00 :00 the Medical morning Branch and 1 tablet in the evening. Do all this for 15 days. predniSONE 2021-08- No [id number] Take 1 po Univers 20 mg 09-01 tid x 2 ity of tablet 00:00: 00:00 [place] 1 po bid x Medical 3 days, Branch then 1 po daily x 5 days famotidine 2021-08- No [id number] 20mg Take 1 Univers (PEPCID) 20 09-01 tablet by it y of mg tablet 00:00: 00:00 mouth in [place] 00 :00 the Medical morning Branch and 1 tablet in the evening. Do all this for 15 days. predniSONE 2021-08- Yes [id number] Take 3 Univers 5 mg tablet 08-22-08 tablets by i ty of 00:00: 05:59 mouth [place] 00 :00 daily for Medical 7 days, Branch THEN 2 tablets daily for 7 days, THEN 1 tablet daily for 7 days. predniSONE 2021-08- Yes [id number] Take 3 Univers 5 mg tablet 08-22-08 tablets by i ty of 00:00: 05:59 mouth [place] 00 :00 daily for Medical 7 days, Branch THEN 2 tablets daily for 7 days, THEN 1 tablet daily for 7 days. predniSONE 2021-08- Yes [id number] Take 3 Univers 5 mg tablet 08-22-08 tablets by i ty of 00:00: 05:59 mouth [place] 00 :00 daily for Medical 7 days, Branch THEN 2 tablets daily for 7 days, THEN 1 tablet daily for 7 days. lactobacill 2021-08- No [id number] .5mg Take 1 Univers us 0-12 02-10 tablet by ity of acidophilus 00:00: 05:59 mouth in [place] 00 :00 the Medical morning Branch for 120 days. lactobacill 2021-08- No [id number] .5mg Take 1 Univers us 0-12 02-10 tablet by ity of acidophilus 00:00: 05:59 mouth in [place] 00 :00 the Medical morning Branch for 120 days. lactobacill 2021-08- No [id number] .5mg Take 1 Univers us 0-12 02-10 tablet by ity of acidophilus 00:00: 05:59 mouth in [place] 00 :00 the Medical morning Branch for 120 days. lactobacill 2021-08- No [id number] .5mg Take 1 Univers us 0-12 02-10 tablet by ity of acidophilus 00:00: 05:59 mouth in [place] :00 the Medical morning Branch for 120 days. predniSONE 2021-08- No [id number] Take 6 Univers 10 mg 0-12 11-17 [...] First dose Me dical L (PF)) on [facility] Branch injection 05/14/22 at 20 [...] 0-07 Units, ity of (vitamin 14:00: Oral, [place] D3) tablet 00 DAILY, Medical 2,000 Units [...] No 500mg 500 mg, Un kar (VANCOCIN) 0-01 14-06 Oral, ONCE it y of capsule 500 [...] on Wed Medical packet 1 05/11/22 at [facility] h Packet 2145, Until Discontinu ed, Routine cholestyram 2021-08 Yes 1{packe 1 Packet, Univers ine 0-06 t} Oral, BID, ity of (QUESTRAN) 02:45: First dose [place] 4 gram 00 on Mon Medical packet 1 05/11/22 at [facility] h Packet 2145, Until Discontinu ed, Routine [...] Mon05/11/22 at 1430, STAT iopamidol 2021-08 No [id number] 75mL 75 mL, Univers (ISOVUE 0-04 10-04 [...] :00 dose, On Medi miranda mg Mon [place] 05/09/22 at 2115, JANNA ferrous 2021-08- No 325mg Take 325 Univ ers sulfate 325 0-03 10-03 mg by ity of mg (65 mg 20:43: 00:00 mouth in [place] iron) 33 :00 the Medical tablet morning. Branch mesalamine 2021-08- No [id number] 1.2g Take 1 Univers 1.2 gram EC 0-03 10-18 tablet by it y of tablet 00:00: 04:59 mouth [place] 00 :00 daily with Medical breakfast Branch for 14 days. mesalamine 2021-08 No [id number] 1.2g Take 1 Univers 1.2 gram EC 0-03 10-18 tablet by it y of tablet 00:00: 04:59 mouth [place] 00 :00 daily with Medical breakfast Branch for 14 days. mesalamine 2021-08 No [id number] 1.2g Take 1 Univers 1.2 gram EC [...] 1000mg Take 1,000 Univers 500 mg CR 04-29 09-23 mg by ity of capsule 11:38: 00:00 mouth in [place] 56 :00 the Medical morning Branch and 1,000 mg at noon and 1,000 mg in the evening. mesalamine Yes 1600mg 1,600 mg, Univers (ASACOL HD) 9-23 Oral, TID, it y of EC tablet 01:00: First dose [place] 1,600 mg 00 on Yue Medical 04/28/22 at Branch 2000, Until Discontinu ed, Routine
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 Indication s: acute pain mesalamine Yes [id number] 1.2g Take 1 U nivers 1.2 gram EC 9-23 tablet by ity of tablet 00:00: mouth [place] 00 daily with Medical breakfast. Branch vancomycin Yes [id number] 125mg Take 1 Univers 125 mg 9-23 capsule by ity of capsule 00:00: mouth 4 00 (four) Medical times Branch daily. mesalamine 0 Yes [id number] 1.2g Take 1 U nivers 1.2 gram EC 9-23 tablet by ity of tablet 00:00: mouth [place] 00 daily with Medical breakfast. Branch vancomycin Yes [id number] 125mg Take 1 Univers 125 mg 9-23 capsule by ity of capsule 00:00: mouth 4 00 (four) Medical times Branch daily. mesalamine Yes [id number] 1.2g Take 1 U nivers 1.2 gram EC 9-23 tablet by ity of tablet 00:00: mouth [place] 00 daily with Medical breakfast. Branch vancomycin Yes [id number] 125mg Take 1 Univers 125 mg 9-23 [...] 7-10). Indication s: acute pain mesalamine Yes [id number] 1.2g Take 1 U nivers 1.2 gram EC 9-23 tablet by ity of tablet 00:00: mouth [place] 00 daily with Medical breakfast. Branch vancomycin Yes [id number] 125mg Take 1 Univers 125 mg 9-23 capsule by ity of capsule 00:00: mouth 4 [place] 00 (four) Medical times Branch daily. mesalamine 2021- No [id number] 1.2g Take 1 Univers 1.2 gram EC 9-23 10-11 tablet by it y of tablet 00:00: 00:00 mouth [place] 00 :00 daily with Medical breakfast. Branch vancomycin 2021- No [id number] 125mg Take 1 Univers 125 mg 9-23 [...] Indication s: acute pain vancomycin 2021- No [id number] 125mg Take 1 Univers 125 mg 04-29 capsule by ity of capsule 00:00: 00:00 mouth 4 [place] 00 :00 (four) Medical times Branch daily for 9 days. mesalamine 2021- No [id number] 1.2g Take 1 Univers 1.2 gram EC [...] 1448, Routine, Pain (scale 7-10) metroNIDAZO 2021-0 2021- No 500mg 500 mg, IV Univers [...] Itching acetaminoph 0 Yes 1{tbl} 1 tablet, [facility] en-codeine 04-27 Oral, ity of (TYLENOL 23:57: [...] ity of 1,000 mg in 20:00: 19:48 [place], [place] NaCl 0.9% 00 :56 Q24H ABX, [...] Routine, Pain (scale 1-3) iopamidol 2021- No [id number] 70mL 70 mL, Univers (ISOVUE 04-27 Intravenou [...] 01:11:00 148 mm[Hg] Univer sity of pressure [facility] Diastolic blood 2022-08-25 01:11:00 98 mm[Hg] Unive rsity of pressure [facility] Heart rate 2022-08-25 01:11:00 81 /min Universi ty of [facility] Respiratory rate 2022-08-25 01:11:00 16 /min Univ ersity of [facility] Oxygen saturation in 2022-08-25 01:11:00 99 /min University of Arterial blood by [employer] Pulse oximetry Branch Body temperature 2022-08-24 20:06:00 36.83 Breann Univ ersity of [facility] Body height 2022-08-24 20:06:00 175.3 cm Universi ty of [facility] Body weight 2022-08-24 20:06:00 90.719 kg Universi ty of [facility] BMI 2022-08-24 20:06:00 29.53 kg/m2 Universi ty of [facility] Systolic blood 2022-07-03 06:00:00 134 mm[Hg] Univer sity of pressure [facility] Diastolic blood 2022-07-03 06:00:00 84 mm[Hg] Unive rsity of [facility] Heart rate 2022-07-03 06:00:00 72 /min Universi ty of [facility] Respiratory rate 2022-07-03 06:00:00 18 /min Univ ersity of [facility] Oxygen saturation in 2022-07-03 06:00:00 95 /min University of Arterial blood by [employer] miranda Pulse oximetry Branch Body temperature 2022-07-03 03:50:00 37.39 Breann Univ ersity of [facility] Body height 2022-07-03 03:50:00 175.3 cm Universi ty of [facility] Body weight 2022-07-03 03:50:00 90.719 kg Universi ty of [facility] BMI 2022-07-03 03:50:00 29.53 kg/m2 Universi ty of [facility] Branch Systolic blood 2022-05-17 16:43:00 128 mm[Hg] [...] /min University of Arterial blood by [place] [employer] miranda Pulse oximetry Branch Body weight 2022-05-17 [...] /min University of Arterial blood by [place] [employer] miranda Pulse oximetry Branch Body weight 2022-05-13 [...] 04:00:00 133 mm[Hg] Univer sity of pressure [facility] Diastolic blood 2022-05-10 04:00:00 79 mm[Hg] [facility] Respiratory rate 2022-05-10 04:00:00 19 /min [facility] height 2022-05-10 01:42:[address] [facility] [place] Body weight 2022-05-10 01:42:[address] [facility] [place] BMI 2022-05-10 01:42:00 28.06 kg/m2 Universi [facility] [place] Systolic blood 2022-04-29 17:14:00 132 mm[Hg] Univer sity of pressure [facility] Diastolic blood 2022-04-29 17:14:00 98 [facility]Hg[facility] 2022-04-29 17:14:00 90 /min [facility] Body temperature 2022-04-29 17:14:00 36.28 Breann [facility] Respiratory rate 2022-04-29 17:14:00 18 /min [facility] Oxygen saturation in 2022-04-29 17:14:00 100 /min [facility] Arterial blood by [facility] Pulse oximetry [place] Body weight 2022-04-28 09:36:00 87.998 kg [facility] BMI 2022-04-28 09:36:00 28.65 kg/m2 [facility] Body height 2022-04-27 21:57:00 175.3 cm [facility] Procedures Procedure Date / Time Performing Clinician Source Performed COMP. METABOLIC PANEL 2022-08-24 21:45:00 Elli Harley [facility] ([id number]) [facility] CBC WITH DIFF 2022-08-24 21:45:[address] [facility] LACTIC ACID WHOLE BLOOD 2022-08-24 21:45:00 Elli Harley [facility] CONSENT/REFUSAL FOR 2022-08-24 19:59:50 Doctor Unassigned, Unive [facility] DIAGNOSIS AND TREATMENT [place] [facility] [place] COMP. METABOLIC PANEL 2022-07-03 04:42:00 Justin Baptiste [facility] ([id number]) [facility] Branch CBC WITH DIFF 2022-07-03 04:42:00 Justin Baptiste [place] [facility] CONSENT/REFUSAL FOR 2022-07-03 03:35:53 Doctor Unassigned, [facility] DIAGNOSIS AND TREATMENT [place] [facility] [place] BASIC METABOLIC PANEL 2022-05-16 08:42:00 [facility], K, CL, CO2, GLUCOSE, Medica l Branch BUN, CREATININE, CA) CBC WITH DIFF 2022-05-16 08:42:00 [facility]IC METABOLIC PANEL 2022-05-16 08:42:00 [facility] (NA, K, CL, CO2, GLUCOSE, Medica l Branch BUN, CREATININE, CA) CBC WITH DIFF 2022-05-16 08:42:00 [facility] BASIC METABOLIC PANEL 2022-05-15 09:46:00 [facility] (NA, K, CL, CO2, GLUCOSE, Medica l Branch BUN, CREATININE, CA) CBC WITH DIFF 2022-05-15 09:46:00 [facility] BASIC METABOLIC PANEL 2022-05-15 09:46:00 [facility] (NA, K, CL, CO2, GLUCOSE, Medica l Branch BUN, CREATININE, CA) CBC WITH DIFF 2022-05-15 09:46:00 [facility] BASIC METABOLIC PANEL 2022-05-14 08:30:00 [facility] (NA, K, CL, CO2, GLUCOSE, Medica l Branch BUN, CREATININE, CA) CBC WITH DIFF 2022-05-14 08:30:00 [facility] BASIC METABOLIC PANEL 2022-05-14 08:30:00 [facility] (NA, K, CL, CO2, GLUCOSE, Medica l Branch BUN, CREATININE, CA) CBC WITH DIFF 2022-05-14 08:30:00 [facility] SURGICAL PATHOLOGY EXAM 2022-05-13 16:29:00 Marybel Sexton [facility] FLEXIBLE SIGMOIDOSCOPY 2022-05-13 16:08:00 Marybel Sexton [facility] FLEXIBLE SIGMOIDOSCOPY 2022-05-13 16:08:00 Marybel Sexton [facility] FLEXIBLE SIGMOIDOSCOPY 2022-05-13 16:07:35 Ferdinand Kelly [facility] (ENDO) [facility] FLEXIBLE SIGMOIDOSCOPY 2022-05-13 16:07:35 Robin eric [facility] (ENDO) [facility] HB ABO GROUPING 2022-05-13 11:11:00 Robin [facility] HB ABO GROUPING 2022-05-13 11:11:00 Robin [facility] BASIC METABOLIC PANEL 2022-05-13 08:57:00 [facility] (NA, K, CL, CO2, GLUCOSE, Medica l Branch BUN, CREATININE, CA) CBC WITH DIFF 2022-05-13 08:57:00 [facility] BASIC METABOLIC PANEL 2022-05-13 08:57:00 Wilman [facility] (NA, K, CL, CO2, GLUCOSE, Medica l Branch BUN, CREATININE, CA) CBC WITH DIFF 2022-05-13 08:57:00 [facility] VITAMIN D, 25-[place] 2022-05-12 13:31:00 Robin [facility] VITAMIN D, 25-[place] 2022-05-12 13:31:00 Robin [facility] PHOSPHORUS 2022-05-12 12:20:00 Robin eric [facility] MAGNESIUM 2022-05-12 12:20:00 Robin [facility] VITAMIN B12, LEVEL 2022-05-12 12:20:[address] [facility] C-REACTIVE PROTEIN 2022-05-12 12:20:[address] [facility] THYROID STIMULATING 2022-05-12 12:20:00 Ferdinand Kelly [facility] HORMONE [facility] COMP. METABOLIC PANEL 2022-05-12 12:20:00 Ferdinand Kelly [facility] ([id number]) Medical Branch LIPID PANEL ([id number])(TOTAL 2022-05-12 12:20:00 Ferdinand Kelly [facility] CHOLESTEROL, Medical Branch TRIGLYCERIDES, HDL) N-TERMINAL PRO-BNP 2022-05-12 12:20:[address] [facility] PHOSPHORUS 2022-05-12 12:20:00 Ferdinand Kelly [facility] MAGNESIUM 2022-05-12 12:20:00 Robin eric [facility] VITAMIN B12, LEVEL 2022-05-12 12:20:[address] [facility] C-REACTIVE PROTEIN 2022-05-12 12:20:[address] [facility] THYROID STIMULATING 2022-05-12 12:20:00 Ferdinand Kelly [facility] HORMONE [facility] COMP. METABOLIC PANEL 2022-05-12 12:20:00 Ferdinand Kelly [facility] ([id number]) Medical Branch LIPID PANEL ([id number])(TOTAL 2022-05-12 12:20:00 Ferdinand Kelly [facility] CHOLESTEROL, [facility] Branch TRIGLYCERIDES, HDL) N-TERMINAL PRO-BNP 2022-05-12 12:20:[address] [facility] PROTHROMBIN TIME / INR 2022-05-12 12:19:00 Ferdinand Kelly [facility] PROTHROMBIN TIME / INR 2022-05-12 12:19:00 Ferdinand Kelly [facility] CBC WITH DIFF 2022-05-12 12:18:00 Ferdinand Kelly [facility] CBC WITH DIFF 2022-05-12 12:18:00 Robin, [facility] XR KUB 2022-05-12 05:58:38 Robin [facility] XR KUB 2022-05-12 05:58:38 Robin [facility] SEDIMENTATION RATE 2022-05-12 02:23:00 Robin [facility] CALPROTECTIN, FECAL 2022-05-12 02:23:00 Robin eric [facility] SEDIMENTATION RATE 2022-05-12 02:23:00 Robin [facility] CALPROTECTIN, FECAL 2022-05-12 02:23:00 Robin [facility] OCCULT (GUAIAC) BLOOD 2022-05-12 02:10:00 Robin [facility] OCCULT (GUAIAC) BLOOD 2022-05-12 02:10:00 Ferdinand Kelly [facility] URINALYSIS 2022-05-11 19:42:00 Romie Lewis [facility] CLOSTRIDIUM DIFFICILE 2022-05-11 19:42:00 Romie Lewis [facility] FECAL PATHOGENS BY PCR 2022-05-11 19:42:00 Ferdinand Kelly [facility] URINALYSIS 2022-05-11 19:42:00 Romie Lewis [facility] CLOSTRIDIUM DIFFICILE 2022-05-11 19:42:00 Romie Lewis [facility] FECAL PATHOGENS BY PCR 2022-05-11 19:42:00 Ferdinand Kelly [facility] LACTIC ACID WHOLE BLOOD 2022-05-11 19:12:00 Romie Lewis [facility] LACTIC ACID WHOLE BLOOD 2022-05-11 19:12:00 Romie Lewis [facility] BLOOD CULTURE SCREEN 2022-05-11 19:10:00 Romie Lewis [facility] LIPASE 2022-05-11 19:10:00 Romie Lewis [facility] COMP. METABOLIC PANEL 2022-05-11 19:10:00 Romie Lewis [facility] ([id number]) [facility] CBC WITH DIFF 2022-05-11 19:10:00 Romie Lewis [facility] GLYCOSYLATED HEMOGLOBIN 2022-05-11 19:10:00 Ferdinand Kelly [facility] BLOOD CULTURE SCREEN 2022-05-11 19:10:00 Romie Lewis [facility] LIPASE 2022-05-11 19:10:00 Romie Lewis [facility] COMP. METABOLIC PANEL 2022-05-11 19:10:00 Romie Lewis [facility] ([id number]) [facility] CBC WITH DIFF 2022-05-11 19:10:00 Romie Lewis [facility] GLYCOSYLATED HEMOGLOBIN 2022-05-11 19:10:00 Ferdinand Kelly [facility] BLOOD CULTURE SCREEN 2022-05-11 19:00:00 Romie Lewis [facility] BLOOD CULTURE SCREEN 2022-05-11 19:00:00 Romie Lewis [facility] CONSENT/REFUSAL FOR 2022-05-11 18:00:56 Doctor Unassigned, [facility] FOR 2022-05-11 18:00:56 Doctor Unassigned, [facility] DIAGNOSIS AND TREATMENT [place] [facility] CT ABDOMEN PELVIS W 2022-05-10 03:29:54 Constantino Okeefe [facility] CONTRAST [facility] HB ABO GROUPING 2022-05-10 02:49:00 Constantino Okeefe [facility] LIPASE 2022-05-10 02:48:00 Constantino Okeefe [facility] [place] [facility] COMP. METABOLIC PANEL 2022-05-10 02:48:00 Constantino Okeefe [facility] ([id number]) [facility] CBC WITH DIFF 2022-05-10 02:48:00 Constantino Okeefe [facility] [place] [facility] CONSENT/REFUSAL FOR 2022-05-10 01:33:55 Doctor Unassigned, [facility] DIAGNOSIS AND TREATMENT [place] [facility] MAGNESIUM 2022-04-29 08:47:00 Cordell [facility] FERRITIN SERUM 2022-04-29 08:47:00 Cordell [facility] IRON 2022-04-29 08:47:00 Cordell [facility] TOTAL IRON BINDING 2022-04-29 08:47:00 Cordell [facility] CAPACITY [facility] BASIC METABOLIC PANEL 2022-04-29 08:47:00 Cordell [facility] (NA, K, CL, CO2, GLUCOSE, Medica l Branch BUN, CREATININE, CA) CBC WITH DIFF 2022-04-29 08:47:00 Cordell [facility] MAGNESIUM 2022-04-28 09:51:00 Dylan [facility] BASIC METABOLIC PANEL 2022-04-28 09:51:00 Jaci Estrella [facility] (NA, K, CL, CO2, GLUCOSE, Medica Branch BUN, CREATININE, CA) CBC WITH DIFF 2022-04-28 09:51:00 Jaci Estrella [facility] C-REACTIVE PROTEIN 2022-04-28 01:53:[address] [facility] CLOSTRIDIUM DIFFICILE 2022-04-28 01:46:00 Jaci Estrella [facility] TOXIN [facility] FECAL PATHOGENS BY PCR 2022-04-28 01:46:00 [facility] COVID-19 (ID NOW RAPID 2022-04-27 18:36:00 Viv Ventura [facility] TESTING) [facility] LAB ONLY COVID 2022-04-27 18:36:00 Viv Ventura [facility] INTERPRETATION [facility] CT ABDOMEN PELVIS W 2022-04-27 17:16:09 Viv Ventura [facility] CONTRAST [facility] ABORH CONFIRMATION (LAB 2022-04-27 16:40:00 Viv Ventura [facility] ONLY) Medical Branch URINALYSIS 2022-04-27 15:38:00 Viv Ventura [facility] LIPASE 2022-04-27 15:10:00 Viv Ventura [facility] MAGNESIUM 2022-04-27 15:10:00 Viv [facility] TROPONIN I 2022-04-27 15:10:00 Viv [facility] COMP. METABOLIC PANEL 2022-04-27 15:10:00 Viv Ventura [facility] ([id number]) [facility] CBC WITH DIFF 2022-04-27 15:10:00 Viv [facility] PROTHROMBIN TIME / INR 2022-04-27 15:10:00 Viv [facility]ura [facility] ACTIVATED PARTIAL 2022-04-27 15:10:00 Viv [facility]ura [facility] ROUTINE & RHYTHM 2022-04-27 15:09:41 Viv [facility]ura [facility] 2022-04-27 15:09:00 Viv Ventura [facility] NOTICE OF PRIVACY 2022-04-27 14:49:32 Doctor Unamarialuisa, [facility] PRACTICES [facility] CONSENT/REFUSAL FOR 2022-04-27 14:49:05 Doctor Unassyessenia, [facility] DIAGNOSIS AND TREATMENT [facility] [place] Encounters Start End Encounter Admission Attending Care Care Encounter Source Date/Time Date/Time Type Type Clinicians Facility Department ID 2022-02-10 Outpatient [facility] [id number] CT 11:33:08 ANA [id number] [facility] 2022-01-25 Outpatient [facility] [id number] CT 15:47:07 ANA [id number] [facility] 2022-08-24 2022-08-24 Emergency X CRICKET CTPAYAM ERT [id number] Univers 14:07:00 19:15:00 ELLI [facility] 2022-08-24 2022-08-24 Emergency Cricket [facility] [id number] Univers 14:07:00 19:15:00 Elli INFANTE 350.1.13.10 i ty of [facility] 4.2.7.2.686 [facility] [id number] [facility] [address] 2022-07-02 2022-07-03 Emergency X [facility] ERT [id number] Univers 21:53:00 00:19:00 JUSTIN ity [facility] 2022-07-02 2022-07-03 Emergency [facility] [id number] Univers 21:53:00 00:19:00 Justin INFANTE 350.1.13.10 i ty of [facility] 4.2.7.2.686 [facility] [id number] [facility] [address] 2022-07-02 2022-07-02 Orders Doctor JESSEE 1.2.840.114 [id number] Univers 00:00:00 00:00:00 Only Unassigned, NATE 350.1.13.10 ity of [place] 4.2.7.2.686 Kartik as [id number] [facility] [address] 2022-05-11 2022-05-17 Outpatient X [facility] [id number] Univers 13:03:00 14:23:00 RAYRAY [facility] 2022-05-11 2022-05-17 Emergency Romie Lewis [facility] 1.2.840. 114 [id number] Univers 13:03:00 14:23:00 Jaci Estrella 350.1.13.10 ity of Rayray GamezJULIO 4.2.7.2.686 [facility] [id number] [facility] [address] 2022-05-13 2022-05-13 [facility] [id number] Univers 10:30:00 11:10:00 Marybel INFANTE 350.1.13.10 i ty of [facility] 4.2.7.2.686 [facility] SURGICAL [id number] [facility] [address] 2022-05-09 2022-05-09 Emergency X [facility] ERT [id number] Univers 20:46:00 23:50:[address] [facility] 2022-05-09 2022-05-09 Emergency Yaripa, [facility] [id number] Univers 20:46:00 23:50:00 Rudolphrebecca Christiano INFANTE 350.1.13.10 ity of [place] 4.2.7.2.686 [facility] [id number] [facility] [address] 2022-05-02 2022-05-02 Transition STEF Cochran 1.2.840.114 [id number] Univers 00:00:00 00:00:00 of Care Lana VILLANUEVA 350.1.13.10 ity of [place] 4.2.7.2.686 [facility] [id number] [facility] [address] 2022-04-27 2022-04-29 Inpatient X CORDELL [facility] AV [id number] Univers 09:54:00 13:15:00 DARRYN ity [facility] 2022-04-27 2022-04-29 [facility] Audrey Viv Savi [facility] 1.2.840.1 [id number] Univers 09:54:00 13:15:00 Encounter DylanJaci 350.1.13.10 ity of [facility] 4.2.7.2.686 [facility] [id number] [place] [id number] Branch 2022-01-31 2022-01-31 Outpatient COH COH PIJFJJK QTO COH 00:00:00 00:00:00 -[id number] 2022-01-30 2022-01-30 Emergency E KRYS [facility] [address] 18:36:00 22:28:00 JOHN Lyons l 2022-01-29 2022-01-30 Emergency E MARIAELENA DANG [facility] [address] 21:25:00 00:58:00 GREGORIO Lyons l 2022-01-28 2022-01-28 Emergency E MARIAELENA DANG [facility] [address] 11:02:00 14:55:00 GREGORIO Lyons l 2022-01-24 2022-01-27 Inpatient E AZAEL DANG [facility] [address] 23:12:00 15:10:00 OBIORA l Kaleb manuel 2022-01-25 2022-01-25 Outpatient [facility] [id number] UT 18:30:00 18:30:00 Health 2022-01-25 2022-01-25 Outpatient [facility] PIJFJJK QTO [facility] 00:00:00 00:00:00 [id number] 1 Results Test Description Test Time Test Comments Results Result Comments Source COMP. METABOLIC PANEL (58016) 2022-08-24 22:30:45 Test Item Value Reference Range Interpretation Comme nts NA (test code = 7427710496) 137 mmol/L 135-145 K (test code = 6811513586) 4.1 mmol/L 3.5-5.0 CL (test code = 6634285507) 105 mmol/L 98-108 CO2 TOTAL (test code = 26 mmol/L 23-31 1048298705) AGAP (test code = 3218174689) 2-16 BUN (test code = 4312416461) 10 mg/dL 7-23 GLUCOSE (test code = 9761465388) 95 mg/dL 70-110 CREATININE (test code = 0.93 mg/dL 0.60-1.25 5254519609) TOTAL BILI (test code = 0.5 mg/dL 0.1-1.6 6030236680) CALCIUM (test code = 1450090870) 8.8 mg/dL 8.6-10.6 T PROTEIN (test code = 7.1 g/dL 6.3-8.2 1053675172) ALBUMIN (test code = 1622434691) 4.0 g/dL 3.5-5.0 ALK PHOS (test code = 1654328348) 80 U/L 34-122 ALTv (test code = 1742-6) 19 U/L 5-50 AST(SGOT) (test code = 25 U/L 13-40 7191703137) eGFR (test code = 6202850999) mL/min/1.73m2 ROBERTO (test code = ROBERTO) Association [...] or urine or abnormalities in imaging tests). [facility] WITH [id number] 22:14:06 Test Item Value Reference Range Interpretation Comments WBC (test code = See_Comment [Automated 5990-2) message] The sy stem which generated this result transmitted reference range : 4.20 - 10.70 10*3/?L. The reference range was not used to interpret this result as normal/abnormal . RBC (test code = See_Comment H [Automated 639-8) message] The sy stem which generated this [...] (test code = 54.9 fL 38.5-51.6 H 28133-3) RDW-CV (test code = 21.0 % 12.1-15.4 H 788-0) PLT (test code = See_Comment H [Automated 777-3) message] The sy stem which generated this result transmitted reference range : 150 - 328 10*3/ ?L. The reference r carlota was not used to interpret this result as normal/abnormal . MPV (test code = 10.1 fL 9.8-13.0 86384-9) NRBC/100 WBC (test See_Comment [Automat ed code = 4137598090) message] The system which generated this result transmitted reference range : 0.0 - 10.0 /100 WBCs. The refer ence range was not u sed to interpret th is result as normal/abnormal . NRBC x10^3 (test code See_Comment [Auto mated = 9956909932) message] The s ystem which generated this result transmitted reference range : 10*3/?L. The reference range was not used to interpret this result as normal/abnormal . GRAN MAT (NEUT) % 52.4 % (test code = 770-8) IMM GRAN % (test code 0.30 % = 7782008228) LYMPH % (test code = 23.7 % 736-9) MONO % (test code = 15.7 % 5905-5) EOS % (test code = 6.3 % 713-8) BASO % (test code = 1.6 % 706-2) GRAN MAT x10^3(ANC) 3.94 10*3/uL 1.99-6.95 (test code = 4799848871) IMM GRAN x10^3 (test 0.00-0.06 code = 2501727973) LYMPH x10^3 (test code 1.78 10*3/uL 1.09-3.23 = 731-0) MONO x10^3 (test code 1.18 10*3/uL 0.36-1.02 H = 742-7) EOS x10^3 (test code = 0.47 10*3/uL 0.06-0.53 711-2) BASO x10^3 (test code 0.12 10*3/uL 0.01-0.09 H = 704-7) Lab Interpretation Abnormal (test code = 13987-9) [facility] [id number] 21:51:41 Test Item Value Reference Range Interpretation Comments LACTIC ACID (test code = 1.02 mmol/L 0.50-2.20 7965887708) Lab Interpretation (test code = Normal 86311-3) [facility]. METABOLIC PANEL (23981)2022-07-03 05:30:27 Test Item Value Reference Range Interpretation Comments NA (test code = 140 mmol/L 135-145 3601979753) K (test code = 4.2 mmol/L 3.5-5.0 6135570509) CL (test code = 105 mmol/L 98-108 1042244325) CO2 TOTAL (test code 30 mmol/L 23-31 = 6325619233) AGAP (test code = 2-16 7742277563) BUN (test code = 13 mg/dL 7-23 7219867295) GLUCOSE (test code = 92 mg/dL 70-110 7301267326) CREATININE (test code 0.89 mg/dL 0.60-1.25 = 1036966616) TOTAL BILI (test code 0.4 mg/dL 0.1-1.1 = 2620418378) CALCIUM (test code = 9.2 mg/dL 8.6-10.6 0907231852) T PROTEIN (test code 7.2 g/dL 6.3-8.2 = 0760925115) ALBUMIN (test code = 4.3 g/dL 3.5-5.0 7908512668) ALK PHOS (test code = 62 U/L 34-122 6182576283) ALTv (test code = 19 U/L 5-50 1742-6) AST(SGOT) (test code 32 U/L 13-40 = 5023830966) eGFR (test code = mL/min/1.73m2 8655469425) ROBERTO (test code = ROBERTO) Association of [...] or urine or abnormalities in imaging tests). [facility] WITH [id number] 04:54:46 Test Item Value Reference Range Interpretation Comments WBC (test code = See_Comment [Automated 6461-2) message] The sy stem which generated this result transmitted reference range : 4.20 - 10.70 10*3/?L. The reference range was not used to interpret this result as normal/abnormal . RBC (test code = See_Comment [Automated 123-8) message] The sy stem which generated this [...] RDW-SD (test code = 47.4 fL 38.5-51.6 52306-2) RDW-CV (test code = 18.8 % 12.1-15.4 H 788-0) PLT (test code = See_Comment H [Automated 777-3) message] The sy stem which generated this result transmitted reference range : 150 - 328 10*3/ ?L. The reference r carlota was not used to interpret this result as normal/abnormal . MPV (test code = 9.9 fL 9.8-13.0 60017-6) NRBC/100 WBC (test See_Comment [Automat ed code = 3850694112) message] The system which generated this result transmitted reference range : 0.0 - 10.0 /100 WBCs. The refer ence range was not u sed to interpret th is result as normal/abnormal . NRBC x10^3 (test code See_Comment [Auto mated = 8439477250) message] The s ystem which generated this result transmitted reference range : 10*3/?L. The reference range was not used to interpret this result as normal/abnormal . GRAN MAT (NEUT) % 52.0 % (test code = 770-8) IMM GRAN % (test code 0.30 % = 9363548415) LYMPH % (test code = 28.1 % 736-9) MONO % (test code = 16.8 % 5905-5) EOS % (test code = 1.6 % 713-8) BASO % (test code = 1.2 % 706-2) GRAN MAT x10^3(ANC) 3.91 10*3/uL 1.99-6.95 (test code = 3659558171) IMM GRAN x10^3 (test 0.00-0.06 code = 8231920414) LYMPH x10^3 (test code 2.11 10*3/uL 1.09-3.23 = 731-0) MONO x10^3 (test code 1.26 10*3/uL 0.36-1.02 H = 742-7) EOS x10^3 (test code = 0.12 10*3/uL 0.06-0.53 711-2) BASO x10^3 (test code 0.09 10*3/uL 0.01-0.09 = 704-7) Lab Interpretation Abnormal (test code = 67083-7) [facility] [id number] 15:55:55 Test Item Value Reference Range Interpretation Comments Case Report (test code Surgical Pathology ? ? = 3673560870) ?Case: [id number] ? Authorizing Provider: ?Marybel Sexton MD ? ? ? Collected: ? 05/13/2022 1129 ?Ordering Location: ? ? [facility] ? ? ?Received: ?05/13/2022 1621 ? [facility] Center ?Pathologist: ? Coleen Rosario MD ? Specimens: ? A) - LARGE INTESTINE, LEFT-DESCENDING COLON, random biopsies ? B) - LARGE INTESTINE, SIGMOID COLON, random biopsies ? C) - RECTUM, Random biopsies ? Final Diagnosis (test u3wyuMMpHGQoa2ydHSPvoJ code = 6507864535) FuZzEwMzNcZnRuYmpcdWMx IHtccnRmMVxlcGljMTAxMD FmPR2skRzesFi4gZaoTIQh gbT8vJBoNNpnp1mpVHD9q8 bwabyjUEMyGRgwQo5zgCZc aHsoPiDvCIYxQEx0wF34RE WphA9ufXOcVPk5NMLmvIYk yzWaQvCuJQSktZFgsMJ2DA BxUB8wezyfRBzsTMdtDTRv ytC8OATpxJRzT8VtQMRsEX 4agvabQNJ2XVfxPFCpZAJ9 ImEgRCCwy0Amegf7GfNrkS FyZFxwbGFpblxmczIwXHBh fbjriGF1QVvtvD35ORPlvH tgWKFiHAXbURPCFV8OHTRV QJGREDJXE3FKPfBJZctsIP ROWbLXVXZKKY9OI6b6NUax ELSjoPncTJImVCwhkB1gCC QmRMVsDLQGDZ5CQJJaZOGO P3MXBYgNUJlfYCgABITrKI QDOECMKSCGJtodI4LGCAWk WAJVE4GQCmceCL9OPoCPA0 GFJEpKDIBWK0TIQCKMEQXO VElDXHBhciAgICAgICAgSU 5GOKfYQaOPYYOYIpMXCD9H UrLnXJQRVDKNCVzjAM5FVJ GWGPVVJZKFI5mEEEMZQKKD SUxvIYwGNV7LYHsOLuhtC6 9AX0nPPYHTWTOEDBSZFVmp YXIgICAgICAgIFNFVkVSRU xZIEFDVElWRSBDSFJPTklD IENPTElUSVNccGFyICAgIC 2lVd0hG5LVMjUUB18ZQG1X GLUGW0SRNQSOFOLOBFWCWB lGSUVEIFxwYXJccGFyXGxp IUXsLEDqZUF7VWpykA82VU WeXz3wN65UC67pMDCBH64U RHNdOSNJCmIIAKEADP6AL9 t1XLltZXHulXraXWXlIWgx hP1gBVAkRE1dR99JO66XJr WBBXTNR9LuJ6cQMUKFBVLP ApkeO5KDVDCKDIoXLKDEYz lQVCBBQlNDRVNTLCBJTkNS RUFTRUQgTFlNUEhPUExBU0 5GF6xGUVTfvVVbKGMaHXTk AK0TMXdSDfDACMZRJmYBAS 8FRyIlZWIOVAKJCEtoHT8N ZROKUAAKEVDQO4eQJMOAIT NMEDxoVCfBRO6TQAzRVgrf V0HDBHNrDYNLXSHNHWNnvS DyFOCfKVPbO62SY5yUZGGR VCBXSVRIIFNFVkVSRUxZIE FDVElWRSBDSFJPTklDIENP CSyQLUFibVNqCKPsDH4xHf 3dK9ZFYjIKM21VJM5MQNMC W0CDAJOTARYOSGWUUNaGBG VEIFxwYXJccGFyXGxpNDUw EBWaHAL2CTginN11GHJdLf 8gAjKVZVHEKEPZXQ5LY68r QklPUFNZOiBccGFyXGxpMF xmaTBcbGluMCAgICAtIENP ZW1WQXIpUSJKI6QEFNaDPX ggVUxDRVIsIENSWVBUSVRJ TajxH0WFMENyQOMWI7JITn hxHP6KPeUKG5EQMGkGBXTA J5VMSSDXGHCUKTaMMYScqy AgICAgIElORklMVFJBVEUg JU4mDBIWFZ4KQGIZU7VQRL EsIEFORCBDUllQVCBBUkNI UPOZK6LFOmRHBTQDZ1IGJq FDF00hTWZQAABCCRTRC8Zp S6GENByhCJPsAKTmRAPOD6 5GXQVXLY6OALeKWYzeE7PS RVJFTFkgQUNUSVZFIENIUk 1OVITvAVTBA4UMIKzLXQSo nzGuTRXvVC7DFQnFRM1WZB 9NQSBPUiBEWVNQTEFTSUEg SURFTlRJRklFRCBccGFyXH CckqnrzkSfPBtzIhf4WGYn VPpsWB1nCQIUPWUtFA3vOD 5oRZNsUBj1CBlfOK0tfTDe FZSlvjAbJaChIEkzCWC9b0 xydGYxXHNzdGVjZjIyMDAw MGYbo4drLYLlqAZmVcInZo NcZnRuYmpcdWMxXGRlZmYw u2gfp180jYRhs4acUCAxJm G4dWBfGTYjfIueslg3eIcw SoHxMQTpg2szdoXqEjMiFS EhAVRbRITthJQzU581HFKl XFxri7bli9MsQBWwmUHic8 S8KSRELYksNnRaO234r4pc v8vwmdQxrYP2XGJyXFF9IS ekldHqyaR9DCrpkQCkKtW2 IDtccmVkMFxncmVlbjBcYm p9LESoL289ULK7jIxfx1ys VQB7BYDsCFHxPlvjWc9xrC ZiO245WNMeHGTYLDBtwRr9 GCFztgHocfMdnBYMh280D6 46n2pqSCNnwiAonUzWvojs z2hgW150KCXfjONqbcHeIh AzYCZqaRBksUY8TFNdZE4o ymrqPVrsVMprYWDxijS5ZD XlbFIhL1VtTTJaYP3svjri MFF7SVycUPKxJCM7AhUsQB Hbh9Jsnzw3YnOpza9ekb87 FDO2u9LllZovFYR0JTU0Fh CvNp8uqAKnOXAhOT8uIcDv oQSzYCImzw12dRbcSUgvmu GgpA2kRgCqYIKvpOUxWIFj MU7wpDZvCOQidB3nkojoRY BnYnJkcmhlYWRccGdicmRy Jj8ddDjnMYX6WBcbM5kwhU 4qMnB1REbvR5uubH4dFMo0 ILwdtOH8AJQqkX3bHY2dat dih2yqGKztRChrANIuzyM6 ieD4XREqsDGdB3TtdW3tPJ CnIX8kvkkol1gvFZW7RBam LPUtODE1PkMgAWKaf4Mwtu o7OsWlv7CvpHGtBDwyT96f y382WVYcjwEkV4qlwAOpld sgxADkhykzTQsxedP3UWLy XHBsYWluXGYxXGZzMjBcbG FuZzEwMzNcaGljaFxmMVxk KmIpYCUwENwzA9fwGkQjO7 YyXGZzMjBccGFyIEkgaGF2 QQNxNKSss94okWz8EHZbpe eay8YbTIJzdQDevPGbyV6k mxVqn4xzGKJyRXQuZUQpL4 OqWMW7rNZdZHMxuULetXU7 OL3jduJmPR1lRRAoOlitzp ZrfDPepmDvKXMxOXksn8yh EH8jTMAkxIxlbV0ksJN6EW Gyy5bdwCOrpJOmj5wzk6Uo bmFtZShzKSBtYXkgYXBwZW EsOC4bPJDfvJLrmfFyk3M3 JczkuOUldzjaAsxjzmQ1WA jgbgdiTCCuEAugZ8feVxJc JKBivVkjJwgog7XdOUDyMJ ZzMjhccGFyfX0= Final Diagnosis Comment v1fwqVQlTHHzrQUjWRJmY1 (test code = nhqvPuVHQmtRCxY0Dgjtks 8993884321) LVkgWL7hJF4apWyemYAapO JbQTXvAcSvf0oga784nKXt f1xlBHPMajczwJm7oVpxP3 3hq4P6UqbsX69viPHoKDR3 TOZuEBSizPVxIYAmNUX9BN MztCHuU0wpZJZqSE7lsgqq TIopTMzpXRBahWH2NWGleL NsQ3IdTYViERxdFLEhjqm4 WdPqJy8ooHDipUfoOOfyAN JkXHBsYWluXGZzMjAgRHIu UEXxqEJaMVOnnoB8bXU7EI GduPbyEEBjb4PzXA4dOAKw yuG6dxRmz2e1tID3mMUxSK aiF06pp7rzTkDnQEVfdq6= Clinical Information colitis (test code = 4174086797) Gross Description (test b6sroYXqEXXthHLETMNnEL code = 3842490031) PzNN2dxRfapYc4pHmvZTUq zfT5cTSmQChyk7tdRVI6r8 llbiANClxkZWZmMVxwYXBl nctzHtV6NRxmIOYdajtpAM h5FTwjDTWpzXO9PQAvcBJb C1XdLUEiDM0rwfk6RHI3ZR mcJGMnAtB8AXVoTkYdLzey PPv9BFYmtfI7Vbr6WXKkNL GsxPTfn7I5HQogmofiIPYi gUGwJ368WVref0VsaGYyKL pccGFyZCANCntcKlxlcGlj v3IuyDYcPTglBIOqZYGtYG hxuaceUXf7MRHbXGjtpOTh IT4riWwoEtrfoTale1PouL BcXGlkIDUxMDAyIFxcZGIg LF8ZInMpHMV3MAyaRwkgJA f7IUb2JE4EGcJfEXHzVNYp OuW3AEWiKWi0ENqlMZ3TTU J7CYA4FQW6SAKlODRkDbjf HPt8KIHkBWqmYHWedCKfOZ jwNkWoXSOoDQjdzQGzLX0t fVxwbGFpblxmczIwIFNQRU HWKBRDOVZfzVYeLD0MDPEf DWubACClqHFGAUI8BU2kPL ANClxsdHJwYXJcbGluMFxy lN0wYM6KBCv0wrPlGSZuMf LxN8YrB1vuIY0kWOQetnGa AUPmaQIlQUEoyjKix3VbHQ hovcRpKGLfiSpjCQG0aTOd HWByFZVnTCIvEK15ZMrSCX MgbmFtZSwgVUggbnVtYmVy IGBgIGxhcmdlIGludGVzdG uvIKnteZZczVVcRMVrQC1g lB5jJZBfNP6bz86pPwawjJ ZyTJXoS4M4DKlZOUMtwkLo K58tu0fvhNIfo6OwjMFeeD lwbGUgdGFuLXBpbmsgaXJy JCq4cHNlZGLaMpFpkFaln8 WfJFOqWWiuVX84ltUvLD0c LTAuMyBjbSBncmVhdGVzdC PheB6hpnIaz79nHZCzJAT4 AJSvNWU0TABcSCAebWFblv UcL0xnXUugnYMjXqVRuOSg n1PeD7jtUW1ekAMxHefdrS PkLJMyuTzaw0QicXLoMOGy p9AzjNObOJhgCN9wRRW7Lb 5mvYUeDXQwszU2z0RdAKwk NTEzFftfdY7nYEqrwF4pTE 4QMUDmbXWPOSV7CZ0lEHt3 AEuzXZTyY9RwF8UcmpVwnU UcIAJcxuCdc6otZXP3KDAp yVQiuXUlYnLyQiowAZG3WP DaPJtcTR2Sw2cmTYZveYPm YLE8QUfyvYFuWRExLZGfMK bvUgOiB5DUVKOaTia6KqK3 YMBtHTt8YNplZ5ROEKBdCH HkWpK0IUD3HcW2HSo4JZHX Ak9cMUK7LXBbQpHgUAE2XV EzOSBcXHQgMiBcXGYgQXJp YWwgXFxmcyAxMCBcXGZsIF lxaaK7ZLHvLSrsSMLoXnUy J7PXZ7mWKQ8eUedzUUAaJZ khhBlgrE4pXCGxY26mh5UP l2XeSM6XONz4yeFusvjbpK 4qISBzrkBwLKebuLYvM5hi RqVhHzPWgONybU2qatIHEG yyRBQgT4OjhyCoGUblCEZa lf7wcRgoIYpkXtIlwLGwVA dpdGggdGhlIHBhdGllbnRc Y9U1pmSdAI5eKGDHQJVsoN 9eXFNyOIXfzXSgM9ZmrI34 CCC5gQ3iDBPbvDpjq4vwZN IwsB1rTTRoLM8wb93jNvgj vQDcZBSuP6L0CEgFZYBzmn YsI23dl2nlsYBrv6YqqLVn dGlwbGUgdGFuLXllbGxvdy BnbyHdM0HyIBIpq39yySU2 aGSbmZQiLsOlA15visMaHV hnViJgMX5nKVRoWRnxXZyn ZJY6TYU4PPIgrVJxt6nswe vrLM1yUYxwSL46QOjjYP2n NTQdBYpoNOOeG1CvH2J9IT coPTBwZMHlkXRzgZ5giqXl glPfiOn2XSGySDJ3dZCzrJ yjHQNhTntwlVN0MYVeFrTw rmYwb3XukSt8rUTaDOehYB HpaA1vxS9iVcAzOJfxaiGb MJrfrkRzKNgsMZAoJ48px7 BKh7ApFILdw6hxjZeri1Ar dGVuZFxwYXJccGFyZFxzbC 5qFwRtw9bigGd3CUjuakA0 YBHrey5jiXfnbF2lLNl7EI emXQNqH6CxF5LbKTjxKOZ2 MTAwMiBcXGRiICBPVlIgIi AiGCS9DFV7UuH4TPv1IUYE RhGxKqMaJnEmAEB8RoruWR s2BPj0LOgPGeYmMxO2BPG7 GMXqEUF2LDX7ZQttnGQlTR xcZiBBcmlhbCBcXGZzIDEw ADkgJdxxESprZ20qeGkynI 1bZaKyWHRHWEKOZF5YVwGF XHBhciANClxwbGFpblxlcG ljTmVzdERvYzEgDQpcbHRy cGFyXGxpbjBccmluMCANCl xsdHJjaFxmczIyIFNwZWNp kMZkLHHwgOYtxeLlWQg6JU BggJ7rHz6xzNEjgJ2naXGz YXtyUECur5i1zJF0iPZgdV B0uTExeKnyFtUpXT6jhDOd LJHFJP14sIHfshWlMIXlMK X6nJ9uQUFowfMlxAOjqN5f h7dol7eeWwVzQ3O4VVQiEP Qdh98auMW8hzNpZgO9APUj ahIygiGtJ7UgXKGuv23sqR T8yRVvgQPfOyFxH75jikVq CBjnWaVkRW9jNYOpOSxeVR emKXD7ZOS2KMPknXJmz6xo igzzDY59KCsiJL4qYMenNI 1cFXGsAKhpDBYtR7GrY7A0 JRkyFUCmRCLyfKNzfV6pbd KpkcAdnVv2APTfZJW9yVOr aWynFVZwKzyslAW4FJUfBl VsuvZpv8MizCq2mAAkRSro PHYxaV2qgZ5kYuHrEPayqb UgXGxpbmUgSnVsaWUgTWNJ oIwelqP5WMLHGHWfXXGKBU kNClxlcGljTmVzdERvYzBc mhR6UNClrKFkEBJ2GZ2tLE TkzkuvUCJrUJDhCYM7XHeh vU81vHPfSIWqKPOhwZUweG rqqPOvjzEVJtwjiL5sToIy c7lepDc1VVWVXbjldFJmon zkbaB1WACza1kndPbbr3Xi xDByVJ2jsJamaQ6eXlUaVt ANCn0= Disclaimer (test code = p1ojbBGeMZMya0vwXAMijF [id number]) FuZzEwMzNcZnRuYmpcdWMx YUztxiUpLEqco5SjG2YoKp AwMFxhbnNpXGRlZmxhbmcx IDGzIDL0fbKzFLKfQLkxCR IjSSimXg6vnFJwsSrmUwSs VREfa0fmorBDQAjzNxYhS0 21VPBgLNpzc8gqg7MxHDKg eULzn9G4ROSYiepmqUe4kW uyC43ci5Y2PscyC2ymXDYf TEJoB0VeDC3hZHYiHrs2HD W4UVO3BUBqOZIuM9GfIR8b DQYhyLCaWPi9o5bfxLlbIV ZuARV0g6lmOQllrcSpZL5c ck2mgSi6y5bkotKfUPVrZK HyhNLNUKBrX0CfgTqhVe9x nOf4jTaiOtbkFIM2Yin9NF 0ohy44lso6mWwgSASwgopg OhF9IFdaLVMoxyjbURa8NM zrMAUyaRG6ESBzpKYrE4Ox XBNeVF6oxpq4BUP2HPbqKJ NhYtV2NIJvsGGdATCgcFtt NIxig849IDR4HjWsER2wL0 Miq5X1sB6fsHFpRULtlBWn NuKdUGQxbs7kdCPqVFxeo2 PwBGA1fcX0yRXtiSSlIPMd FH15Vrfxu6QzPrjfe8HjV2 0mzXG7CGeqw6rkXE4aLzR0 smCaGLhog7iurF0pUfC9YS gtLM6qSH6aGSIaaB9bicvs XHBnYnJkcmhlYWRccGdicm NrYh8wiUtuGST2EAmpY1ig mV1nVkP1OHavO5azbZ4lKG x2HYwxpTD2HVOvtT8vMU1q cnbcr8zfHZnrQDvtKEQfqe L8zpX4DRSftMJsX0VyxZ4v OUNcNF4dewacp2luJLJ7CO omAMZfDVO4YqZvUGRmn0Mq mmx3VfWux8SreHYgXYjvK0 9te609UABywkFoN4ihsJFn smaivJFdddwnHKmofcP1FN JnugKdt1GrDXTmWSY3SQwh AXnrsWGvFGXmoRtfm1qkP8 RscGFyXHBsYWluXGYxXGZz MjBcbGFuZzEwMzNcaGljaF ntNShpUrZcYYNiRXvlT4bh PwKuR2WyZCNaAoMmtOIdR1 ggVGhpcyByZXBvcnQgbWF5 BKyhR8l0JUAlnqXpiTj1wp GxUkQaGVUfVGE9KFnumBVv XAHjk8TthhbyaIKkHs5nxM PyUJHjeY2aYMRoLKUeZFfe SV7dbBq0CMAEdPBlcTWlSe ZCQKEnMB62azQrATGIjrlc i1O1QRdgGOPtq0HuwQRoS8 sru4RwREEir40lEM7tp4N0 j1doBVY5GI2xr4CsVPEvzT XqvVPzIWYwj9Qhgnfou7Dl YEWcwmZwt7TzZINjirJklR CdSDSqdfIkgk2sieSvYGYq ZEApI0IrpjavfSflvuKrDV Yvac5sikYhZOX4HAUGUYZo GWXfw6PofA5dzSPVICN5nC Mpwd4xrqOXcAGsQDBuio26 DXJkJK7pG9nmENNxCABmwx PsrIJzc1NdQBNlsHJ8dBIb XR6LXgCZb25aCUFcGBQAza NwFHLmhSriyHI9znG2mE5v IChGREEpLlx+IFRoZSBGRE XqRA0bbuTdh6QtvwZniHhl SSOfpMXsd2MccCSld1BlfP kda2DgpRKfnZOlUF7zMZWc clxwYXIgVVRNQiBMYWJvcm X0z5KnMAOdOBJdYRE8rImm kzv7EEPefP8bJCTcK7plah wiMHshPYFqi1KwtK9qnBNL aFZuq9EspLWktIISkIDoSF 3weuXyNDqWKUuGSYE2fhJa OGDek5LrSXqeK2cwE74eyI mpzWi1fGF6BST0pC4lEay+ IFxwYXJccGFyIEFwcHJvcH TrTBJefGkebcReQ9NirqTo hF3mqOCuvdUuTQ3wPH5fO3 R7bWXgPCZhnwJln7jcNEtv dmUgYmVlbiByZXZpZXdlZC Fmu1QaEOpySLD7BVjkfxNg bmNsdWRpbmcgSCZFLCBTcG UawJGaEYF3GAfkyqSloiTt TG3lwF0ohLewqF5puARsgS F8jtngOIZyCNFcsGpeSWAr AW2byDBkBULhkjPWlGqaxY CufJ1aE2AgFVSpTZFuog0a MICizH6hYEyso7BsgzvfIM YeGCZgRKTiiqSqiv4jHXSs vNWDKV0ISFiraOLau9Hpwq KgW1wRZPT5OUPkBdQvDkfa ZLAreEEbxAFkNMXgzg99QJ IjoB6vtLwrPPYxtC9adB7m kYhiqD6zMpAvDjNuVFpaQM 6gASEdE4dwtAQkWHFjVYGy G1ziJgWfcA0lrObmYFodIy EnBsIqPVfeDQM5qG== Embedded Images (test code = 1555370546) [facility] Culture - Peripheral # [id number] 20:01:59 Test Item Value Reference Range Interpretation Comments Blood Culture-Aerobic No organisms No growth Previo us (test code = 34200-7) isolated prelim inary verified result was Culture [...] Culture-Anaerobic isolated preliminar y (test code = 66443-0) verifi ed result was Culture In Progress [...] CDT Lab Interpretation Normal (test code = 56976-9) [facility] Culture - Peripheral # [id number] 20:01:59 Test Item Value Reference Range Interpretation Comments Blood Culture-Aerobic No organisms No growth Previo us (test code = 46534-6) isolated prelim inary verified result was Culture [...] Culture-Anaerobic isolated preliminar y (test code = 74631-5) verifi ed result was Culture In Progress [...] CDT Lab Interpretation Normal (test code = 38627-5) [facility] Culture - Peripheral # [id number] 20:01:59 Test Item Value Reference Range Interpretation Comments Blood Culture-Aerobic No organisms No growth Previo us (test code = 22327-9) isolated prelim inary verified result was Culture [...] Culture-Anaerobic isolated preliminar y (test code = 40985-9) verifi ed result was Culture In Progress [...] CDT Lab Interpretation Normal (test code = 68741-0) [facility] Culture - Peripheral # [id number] 20:01:59 Test Item Value Reference Range Interpretation Comments Blood Culture-Aerobic No organisms No growth Previo us (test code = 75403-6) isolated prelim inary verified result was Culture [...] Culture-Anaerobic isolated preliminar y (test code = 26453-8) verifi ed result was Culture In Progress [...] CDT Lab Interpretation Normal (test code = 27356-1) [facility] Routine 2022-05-13 13:43:26 Test Item Value Reference Range Interpretation Comments ABO & RH (test code O Positive Performe d at [facility] = 20) Laboratory [facility] [place], [place] [address]Toll Free: [phone] A No. [id number] IAT (test code = Negative Performed a t [facility] 1185) Laboratory [facility] [place], [place] [address]Toll Free: [phone] A No. [id number] [facility]-0500 Routine 2022-05-13 13:43:26 Test Item Value Reference Range Interpretation Comments ABO & RH (test code O Positive Performe d at [facility] = 20) Laboratory [facility] [place], [place] [address]Toll Free: [phone] A No. [id number] IAT (test code = Negative Performed a t [facility] 1185) Laboratory [facility] [place], [place] [address]Toll Free: [phone] A No. [id number] [facility] B12, [id number] 22:16:10 Test Item Value Reference Range Interpretation Comments VIT B12 (test code = 603 pg/mL 240-930 [id number]) ROBERTO (test code = ROBERTO) Biotin has been reported to cause a positive bias, interpret results relative to patient's use of biotin. Lab Interpretation (test Normal code = 07574-8) [facility], [id number] 22:16:10 Test Item Value Reference Range Interpretation Comments VIT B12 (test code = 603 pg/mL 240-930 9697849405) ROBERTO (test code = ROBERTO) Biotin has been reported to cause a positive bias, interpret results relative to patient's use of biotin. Lab Interpretation (test Normal code = 21272-9) [facility] D, [id number] 21:50:29 Test Item Value Reference Range Interpretation Comments VIT D 25OH (test code = 25-80 L 77990-4) ROBERTO (test code = ROBERTO) Deficiency: <20 ng/mLInsufficiency: 20-24 ng/mLOptimal: 25-80 ng/mL Lab Interpretation (test Abnormal code = 46512-7) [facility], [id number] 21:50:29 Test Item Value Reference Range Interpretation Comments VIT D 25OH (test code = 25-80 L 47062-4) ROBERTO (test code = ROBERTO) Deficiency: <20 ng/mLInsufficiency: 20-24 ng/mLOptimal: 25-80 ng/mL Lab Interpretation (test Abnormal code = 44346-6) [facility] [id number] 18:56:01 Test Item Value Reference Range Interpretation Comments CRP (test code = 0.9 mg/dL See_Comment H [Automated message] 9101344694) The system [employer] generated this result transmit eunice reference range : <=0.8. The refe rence range was not u sed to interpret th is result as normal/abnormal . Lab Interpretation (test Abnormal code = 74048-6) [facility] [id number] 18:56:01 Test Item Value Reference Range Interpretation Comments CRP (test code = 0.9 mg/dL See_Comment H [Automated message] 6412468045) The system [employer] generated this result transmit eunice reference range : <=0.8. The refe rence range was not u sed to interpret th is result as normal/abnormal . Lab Interpretation (test Abnormal code = 49897-1) [facility]ULATING [id number] 13:43:08 Test Item Value Reference Range Interpretation Comments TSH (test code = See_Comment H [Automated message] 5860330417) The system [employer] generated this result transmitted ref erence range: 0.45 - 4 .70 mIU/L. The refe rence range was not u sed to interpret this result as normal/abnor mal. Lab Interpretation (test Abnormal code = 94719-3) [facility] [id number] 13:43:08 Test Item Value Reference Range Interpretation Comments TSH (test code = See_Comment H [Automated message] 3230635238) The system [employer] generated this result transmitted ref erence range: 0.45 - 4 .70 mIU/L. The refe rence range was not u sed to interpret this result as normal/abnor mal. Lab Interpretation (test Abnormal code = 58729-3) [facility] [id number] 13:21:44 Test Item Value Reference Range Interpretation Comments NT-proBNP (test code 54 pg/mL See_Comment [Autom ated = 0422903459) message] The system which generated this result transmitted reference range : <=125. The reference range was not used to interpret this result as normal/abnormal . ROBERTO (test code = ROBERTO) Biotin has been reported to cause a negative bias, interpret results relative to patient's use of biotin. Lab Interpretation Normal (test code = 45213-0) [facility] [id number] 13:21:44 Test Item Value Reference Range Interpretation Comments NT-proBNP (test code 54 pg/mL See_Comment [Autom ated = 9011342430) message] The system which generated this result transmitted reference range : <=125. The reference range was not used to interpret this result as normal/abnormal . ROBERTO (test code = ROBERTO) Biotin has been reported to cause a negative bias, interpret results relative to patient's use of biotin. Lab Interpretation Normal (test code = 40699-8) [facility] HospitalLIPID PANEL (58971)(TOTAL CHOLESTEROL, TRIGLYCERIDES, HDL)2022-05-12 13:12:48 Test Item Value Reference Range Interpretation Comments CHOL (test code = 124 mg/dL 120-200 2227558068) HDL (test code = 27 mg/dL See_Comment L [Automated message] 5227436572) The system [employer] generated this result transmit eunice reference range : >=40. The refer ence range was not u sed to interpret th is result as normal/abnormal . HDLC RATIO (test code = See_Comment [Au tomated message] 7745288336) The system [employer] generated this result transmit eunice reference range : <=5.0. The refe rence range was not u sed to interpret th is result as normal/abnormal . TRIG (test code = 104 mg/dL 30-170 5762816267) LDL CHOL (test code = 76 mg/dL See_Comment [Auto mated message] 52308-3) The system [employer] generated this result transmit eunice reference range : <=160. The refe rence range was not u sed to interpret th is result as normal/abnormal . VLDL (test code = 21 mg/dL 5-60 0269408888) Lab Interpretation (test Abnormal code = 56728-7) [facility] HospitalLIP[facility] PANEL (90409)(TOTAL CHOLESTEROL, TRIGLYCERIDES, HDL)2022-05-12 13:12:48 Test Item Value Reference Range Interpretation Comments CHOL (test code = 124 mg/dL 120-200 8801464060) HDL (test code = 27 mg/dL See_Comment L [Automated message] 4324817896) The system [employer] generated this result transmit eunice reference range : >=40. The refer ence range was not u sed to interpret th is result as normal/abnormal . HDLC RATIO (test code = See_Comment [Au tomated message] 1600295272) The system [employer] generated this result transmit eunice reference range : <=5.0. The refe rence range was not u sed to interpret th is result as normal/abnormal . TRIG (test code = 104 mg/dL 30-170 7008130714) LDL CHOL (test code = 76 mg/dL See_Comment [Auto mated message] 19715-8) The system [employer] generated this result transmit eunice reference range : <=160. The refe rence range was not u sed to interpret th is result as normal/abnormal . VLDL (test code = 21 mg/dL 5-60 0568460239) Lab Interpretation (test Abnormal code = 80359-0) [facility]MAGNESIUM2022-10-06 13:12:47 Test Item Value Reference Range Interpretation Comments MAGNESIUM (test code = 1906183585) 1.8 mg/dL 1.7-2.4 Lab Interpretation (test code = Normal 60926-7) [facility]UM2022-10-06 13:12:47 Test Item Value Reference Range Interpretation Comments MAGNESIUM (test code = 2283950180) 1.8 mg/dL 1.7-2.4 Lab Interpretation (test code = Normal 33768-9) [facility] HospitalCOMP. METABOLIC PANEL (78950)2022-05-12 13:12:27 Test Item Value Reference Range Interpretation Comments NA (test code = 139 mmol/L 135-145 4485928074) K (test code = 3.5 mmol/L 3.5-5 8550889907) CL (test code = 106 mmol/L 98-108 1452029276) CO2 TOTAL (test code = 27 mmol/L 23-31 4142424533) AGAP (test code = 2-16 5671791631) BUN (test code = 7 mg/dL 7-23 6382119715) GLUCOSE (test code = 87 mg/dL 70-110 9653263064) CREATININE (test code = 0.89 mg/dL 0.6-1.25 1024939086) TOTAL BILI (test code = 0.3 mg/dL 0.1-1.7 1997413167) CALCIUM (test code = 8.4 mg/dL 8.6-10.6 L 6638238021) T PROTEIN (test code = 6.7 g/dL 6.3-8.2 9344922499) ALBUMIN (test code = 3.5 g/dL 3.5-5 2482607883) ALK PHOS (test code = 81 U/L 34-122 2670890358) ALTv (test code = 13 U/L 5-50 1742-6) AST(SGOT) (test code = 22 U/L 13-40 2833740589) eGFR (test code = mL/min/1.73m2 0125894403) ROBERTO (test code = ROBERTO) Association of [...] tests). Lab Interpretation Abnormal (test code = 66372-2) [facility] HospitalPHOSPHORUS2022-10-06 13:12:27 Test Item Value Reference Range Interpretation Comments PHOSPHORUS (test code = 7804045225) 3.8 mg/dL 2.5-5 Lab Interpretation (test code = Normal 86020-5) [facility] HospitalCOMP[facility] METABOLIC PANEL (71004)2022-05-12 13:12:27 Test Item Value Reference Range Interpretation Comments NA (test code = 139 mmol/L 135-145 0070119017) K (test code = 3.5 mmol/L 3.5-5 2091027782) CL (test code = 106 mmol/L 98-108 0185294211) CO2 TOTAL (test code = 27 mmol/L 23-31 8461617418) AGAP (test code = 2-16 1642679188) BUN (test code = 7 mg/dL 7-23 2166103208) GLUCOSE (test code = 87 mg/dL 70-110 6831477558) CREATININE (test code = 0.89 mg/dL 0.6-1.25 4597583143) TOTAL BILI (test code = 0.3 mg/dL 0.1-1.4 1050828535) CALCIUM (test code = 8.4 mg/dL 8.6-10.6 L 3905003077) T PROTEIN (test code = 6.7 g/dL 6.3-8.2 8442438911) ALBUMIN (test code = 3.5 g/dL 3.5-5 4963918704) ALK PHOS (test code = 81 U/L 34-122 8592351839) ALTv (test code = 13 U/L 5-50 1742-6) AST(SGOT) (test code = 22 U/L 13-40 1410013035) eGFR (test code = mL/min/1.73m2 0010963383) ROBERTO (test code = ROBERTO) Association of [...] tests). Lab Interpretation Abnormal (test code = 44312-3) [facility]PHOSPHORUS2022-10-06 13:12:27 Test Item Value Reference Range Interpretation Comments PHOSPHORUS (test code = 5321104713) 3.8 mg/dL 2.5-5 Lab Interpretation (test code = Normal 85950-8) [facility] WITH [id number] 13:09:25 Test Item Value Reference Range Interpretation [...] RDW-SD (test code = 39.2 fL 38.5-51.6 12545-3) RDW-CV (test code = 14.7 % 12.1-15.4 788-0) PLT (test code = See_Comment H [Automated 777-3) message] The sy stem which generated this result transmitted reference range : 150 - 328 10*3/ ?L. The reference r carlota was not used to interpret this result as normal/abnormal . MPV (test code = 10.1 fL 9.8-13 88228-7) NRBC/100 WBC (test See_Comment [Automat ed code = 3466860965) message] The system which generated this result transmitted reference range : 0.0 - 10.0 /100 WBCs. The refer ence range was not u sed to interpret th is result as normal/abnormal . NRBC x10^3 (test code See_Comment [Auto mated = 9392532534) message] The s ystem which generated this result transmitted reference range : 10*3/?L. The reference range was not used to interpret this result as normal/abnormal . GRAN MAT (NEUT) % 46.1 % (test code = 770-8) IMM GRAN % (test code 0.10 % = 1907003016) LYMPH % (test code = 33.9 % 736-9) MONO % (test code = 11.8 % 5905-5) EOS % (test code = 6.3 % 713-8) BASO % (test code = 1.8 % 706-2) GRAN MAT x10^3(ANC) 3.27 10*3/uL 1.99-6.95 (test code = 2676928111) IMM GRAN x10^3 (test 0-0.06 code = 2730749241) LYMPH x10^3 (test code 2.41 10*3/uL 1.09-3.23 = 731-0) MONO x10^3 (test code 0.84 10*3/uL 0.36-1.02 = 742-7) EOS x10^3 (test code = 0.45 10*3/uL 0.06-0.53 711-2) BASO x10^3 (test code 0.13 10*3/uL 0.01-0.09 H = 704-7) Lab Interpretation Abnormal (test code = 53115-3) [facility] WITH [id number] 13:09:25 Test Item Value Reference Range Interpretation Comments WBC (test code = See_Comment [Automated 5590-2) message] The sy stem which generated this result transmitted reference range : 4.20 - 10.70 10*3/?L. The reference range was not used to interpret this result as normal/abnormal . RBC (test code = See_Comment L [Automated 529-8) message] The sy stem which generated this [...] RDW-SD (test code = 39.2 fL 38.5-51.6 53856-5) RDW-CV (test code = 14.7 % 12.1-15.4 788-0) PLT (test code = See_Comment H [Automated 777-3) message] The sy stem which generated this result transmitted reference range : 150 - 328 10*3/ ?L. The reference r carlota was not used to interpret this result as normal/abnormal . MPV (test code = 10.1 fL 9.8-13 19654-7) NRBC/100 WBC (test See_Comment [Automat ed code = 3403917872) message] The system which generated this result transmitted reference range : 0.0 - 10.0 /100 WBCs. The refer ence range was not u sed to interpret th is result as normal/abnormal . NRBC x10^3 (test code See_Comment [Auto mated = 2308609999) message] The s ystem which generated this result transmitted reference range : 10*3/?L. The reference range was not used to interpret this result as normal/abnormal . GRAN MAT (NEUT) % 46.1 % (test code = 770-8) IMM GRAN % (test code 0.10 % = 5286183897) LYMPH % (test code = 33.9 % 736-9) MONO % (test code = 11.8 % 5905-5) EOS % (test code = 6.3 % 713-8) BASO % (test code = 1.8 % 706-2) GRAN MAT x10^3(ANC) 3.27 10*3/uL 1.99-6.95 (test code = 3296130419) IMM GRAN x10^3 (test 0-0.06 code = 5239484051) LYMPH x10^3 (test code 2.41 10*3/uL 1.09-3.23 = 731-0) MONO x10^3 (test code 0.84 10*3/uL 0.36-1.02 = 742-7) EOS x10^3 (test code = 0.45 10*3/uL 0.06-0.53 711-2) BASO x10^3 (test code 0.13 10*3/uL 0.01-0.09 H = 704-7) Lab Interpretation Abnormal (test code = 27749-8) [facility] HospitalProthrombin Time / [id number] 13:06:44 Test Item Value Reference Range Interpretation Comments PROTIME PATIENT (test See_Comment H [Auto mated message] code = 5964-2) The system [employer] generated this result transmitted ref erence range: 12.0 - 1 4.7 Seconds. The reference range was not used to int erpret this result as normal/abnormal . INR (test code = 6301-6) Nor mal INR <1.1; Warfarin Therap eutic range 2.0 to 3. 0 or 2.5 to 3.5, dep ending upon the indica tions. Lab Interpretation (test Abnormal code = 21566-8) [facility] HospitalProthrombin Time / [id number] 13:06:44 Test Item Value Reference Range Interpretation Comments PROTIME PATIENT (test See_Comment H [Auto mated message] code = 5964-2) The system [employer] generated this result transmitted ref erence range: 12.0 - 1 4.7 Seconds. The reference range was not used to int erpret this result as normal/abnormal . INR (test code = 6301-6) Nor mal INR <1.1; Warfarin Therap eutic range 2.0 to 3. 0 or 2.5 to 3.5, dep ending upon the indica tions. Lab Interpretation (test Abnormal code = 58657-3) [facility] [id number] 02:59:10 Test Item Value Reference Range Interpretation Comments ESR (test code = See_Comment H [Automated message] 09592-9) The system [employer] generated this result transmitted ref erence range: 0 - 10 m m/HR. The reference r carlota was not used to interpret this result as normal/abnor mal. Lab Interpretation (test Abnormal code = 24724-2) [facility] [id number] 02:59:10 Test Item Value Reference Range Interpretation Comments ESR (test code = See_Comment H [Automated message] 32058-9) The system [employer] generated this result transmitted ref erence range: 0 - 10 m m/HR. The reference r carlota was not used to interpret this result as normal/abnor mal. Lab Interpretation (test Abnormal code = 54819-6) [facility] HospitalGLYCOSYLATED HEMOGLOBIN (A1C)2022-05-12 02:20:40 Test Item Value Reference Range Interpretation Comments HGB A1C (test code = 6.1 % 4-5.7 H 4548-4) ROBERTO (test code = ROBERTO) Reference RangesNormal: <5.7%Prediabetes: 5.7 - 6.4%Diabetes: > 6.5% Lab Interpretation (test Abnormal code = 01284-5) [facility] HospitalGLYCOSYLATED HEMOGLOBIN (A1C)2022-05-12 02:20:40 Test Item Value Reference Range Interpretation Comments HGB A1C (test code = 6.1 % 4-5.7 H 4548-4) ROBERTO (test code = ROBERTO) Reference RangesNormal: <5.7%Prediabetes: 5.7 - 6.4%Diabetes: > 6.5% Lab Interpretation (test Abnormal code = 51195-4) [facility] HospitalCOMP. METABOLIC PANEL (42700)2022-05-11 19:45:12 Test Item Value Reference Range Interpretation Comments NA (test code = 139 mmol/L 135-145 0175339506) K (test code = 4.1 mmol/L 3.5-5 0473677460) CL (test code = 105 mmol/L 98-108 7305710329) CO2 TOTAL (test code 24 mmol/L 23-31 = 4716679319) AGAP (test code = 2-16 5951256145) BUN (test code = 8 mg/dL 7-23 2460035095) GLUCOSE (test code = 84 mg/dL 70-110 3291273337) CREATININE (test code 0.93 mg/dL 0.6-1.25 = 5391110782) TOTAL BILI (test code 0.3 mg/dL 0.1-1.1 = 7150930080) CALCIUM (test code = 9.4 mg/dL 8.6-10.6 0486257930) T PROTEIN (test code 7.3 g/dL 6.3-8.2 = 3020907367) ALBUMIN (test code = 4.0 g/dL 3.5-5 5172299760) ALK PHOS (test code = 85 U/L 34-122 2370407109) ALTv (test code = 14 U/L 5-50 1742-6) AST(SGOT) (test code 21 U/L 13-40 = 8321595441) eGFR (test code = mL/min/1.73m2 1894527003) ROBERTO (test code = ROBERTO) Association of [...] urine or abnormalities in imaging tests). [facility]. METABOLIC PANEL (64017)2022-05-11 19:45:12 Test Item Value Reference Range Interpretation Comments NA (test code = 139 mmol/L 135-145 1774832523) K (test code = 4.1 mmol/L 3.5-5 3722540918) CL (test code = 105 mmol/L 98-108 1374638274) CO2 TOTAL (test code 24 mmol/L 23-31 = 9500337296) AGAP (test code = 2-16 3257669047) BUN (test code = 8 mg/dL 7-23 0392875110) GLUCOSE (test code = 84 mg/dL 70-110 6196077168) CREATININE (test code 0.93 mg/dL 0.6-1.25 = 6197239217) TOTAL BILI (test code 0.3 mg/dL 0.1-1.1 = 6691267417) CALCIUM (test code = 9.4 mg/dL 8.6-10.6 7820164131) T PROTEIN (test code 7.3 g/dL 6.3-8.2 = 6492730167) ALBUMIN (test code = 4.0 g/dL 3.5-5 4642326193) ALK PHOS (test code = 85 U/L 34-122 4844395692) ALTv (test code = 14 U/L 5-50 1742-6) AST(SGOT) (test code 21 U/L 13-40 = 4490412084) eGFR (test code = mL/min/1.73m2 0725253046) ROBERTO (test code = ROBERTO) Association of [...] or urine or abnormalities in imaging tests). [facility]20[facility] 19:44:31 Test Item Value Reference Range Interpretation Comments LIPASE (test code = 2499138381) 116 U/L 0-220 Lab Interpretation (test code = Normal 72363-3) [facility]2022-[facility]-05 19:44:31 Test Item Value Reference Range Interpretation Comments LIPASE (test code = 4262377113) 116 U/L 0-220 Lab Interpretation (test code = Normal 80249-6) [facility] WITH [id number] 19:33:50 Test Item Value Reference Range Interpretation [...] RDW-SD (test code = 38.9 fL 38.5-51.6 28649-8) RDW-CV (test code = 14.7 % 12.1-15.4 788-0) PLT (test code = See_Comment H [Automated 777-3) message] The sy stem which generated this result transmitted reference range : 150 - 328 10*3/ ?L. The reference r carlota was not used to interpret this result as normal/abnormal . MPV (test code = 10.1 fL 9.8-13 48837-0) NRBC/100 WBC (test See_Comment [Automat ed code = 9983124304) message] The system which generated this result transmitted reference range : 0.0 - 10.0 /100 WBCs. The refer ence range was not u sed to interpret th is result as normal/abnormal . NRBC x10^3 (test code See_Comment [Auto mated = 7038433655) message] The s ystem which generated this result transmitted reference range : 10*3/?L. The reference range was not used to interpret this result as normal/abnormal . GRAN MAT (NEUT) % 50.3 % (test code = 770-8) IMM GRAN % (test code 0.00 % = 5330043026) LYMPH % (test code = 28.7 % 736-9) MONO % (test code = 13.9 % 5905-5) EOS % (test code = 5.3 % 713-8) BASO % (test code = 1.8 % 706-2) GRAN MAT x10^3(ANC) 3.14 10*3/uL 1.99-6.95 (test code = 9698582248) IMM GRAN x10^3 (test 0-0.06 code = 9452699282) LYMPH x10^3 (test code 1.79 10*3/uL 1.09-3.23 = 731-0) MONO x10^3 (test code 0.87 10*3/uL 0.36-1.02 = 742-7) EOS x10^3 (test code = 0.33 10*3/uL 0.06-0.53 711-2) BASO x10^3 (test code 0.11 10*3/uL 0.01-0.09 H = 704-7) Lab Interpretation Abnormal (test code = 82177-4) [facility] WITH [id number] 19:33:50 Test Item Value Reference Range Interpretation [...] RDW-SD (test code = 38.9 fL 38.5-51.6 81538-6) RDW-CV (test code = 14.7 % 12.1-15.4 788-0) PLT (test code = See_Comment H [Automated 777-3) message] The sy stem which generated this result transmitted reference range : 150 - 328 10*3/ ?L. The reference r carlota was not used to interpret this result as normal/abnormal . MPV (test code = 10.1 fL 9.8-13 16408-3) NRBC/100 WBC (test See_Comment [Automat ed code = 5084998730) message] The system which generated this result transmitted reference range : 0.0 - 10.0 /100 WBCs. The refer ence range was not u sed to interpret th is result as normal/abnormal . NRBC x10^3 (test code See_Comment [Auto mated = 5985189672) message] The s ystem which generated this result transmitted reference range : 10*3/?L. The reference range was not used to interpret this result as normal/abnormal . GRAN MAT (NEUT) % 50.3 % (test code = 770-8) IMM GRAN % (test code 0.00 % = 1262445012) LYMPH % (test code = 28.7 % 736-9) MONO % (test code = 13.9 % 5905-5) EOS % (test code = 5.3 % 713-8) BASO % (test code = 1.8 % 706-2) GRAN MAT x10^3(ANC) 3.14 10*3/uL 1.99-6.95 (test code = 5304747204) IMM GRAN x10^3 (test 0-0.06 code = 0236372391) LYMPH x10^3 (test code 1.79 10*3/uL 1.09-3.23 = 731-0) MONO x10^3 (test code 0.87 10*3/uL 0.36-1.02 = 742-7) EOS x10^3 (test code = 0.33 10*3/uL 0.06-0.53 711-2) BASO x10^3 (test code 0.11 10*3/uL 0.01-0.09 H = 704-7) Lab Interpretation Abnormal (test code = 13790-2) [facility] HospitalType and Screen - ONCE [id number] 03:41:38 Test Item Value Reference Range Interpretation Comments ABO & RH (test code O Positive Performe d at [facility] = 20) Laboratory Serv [facility] [place], [place] [id number] Free: [phone] A No. [id number] IAT (test code = Negative Performed a t [facility] 1185) Laboratory Serv [facility] [place] [id number] Free: [phone] A No. [id number] [facility] HospitalCOMP. METABOLIC PANEL (61248)2022-05-10 03:15:48 Test Item Value Reference Range Interpretation Comments NA (test code = 135 mmol/L 135-145 4243748785) K (test code = 4.2 mmol/L 3.5-5 9583690799) CL (test code = 104 mmol/L 98-108 2303106174) CO2 TOTAL (test code = 23 mmol/L 23-31 6244188020) AGAP (test code = 2-16 0625977778) BUN (test code = 9 mg/dL 7-23 6752657197) GLUCOSE (test code = 100 mg/dL 70-110 9975829727) CREATININE (test code = 0.89 mg/dL 0.6-1.25 8994166657) TOTAL BILI (test code = 0.3 mg/dL 0.1-1.6 6817801052) CALCIUM (test code = 8.5 mg/dL 8.6-10.6 L 5715801673) T PROTEIN (test code = 6.6 g/dL 6.3-8.2 6100306055) ALBUMIN (test code = 3.6 g/dL 3.5-5 0231299453) ALK PHOS (test code = 80 U/L 34-122 9166087129) ALTv (test code = 13 U/L 5-50 1742-6) AST(SGOT) (test code = 22 U/L 13-40 7384455364) eGFR (test code = mL/min/1.73m2 2287925557) ROBERTO (test code = ROBERTO) Association of [...] tests). Lab Interpretation Abnormal (test code = 89042-0) [facility] 03:15:08 Test Item Value Reference Range Interpretation Comments LIPASE (test code = 5750594416) 105 U/L 0-220 Lab Interpretation (test code = Normal 90882-3) [facility] WITH [id number] 03:02:08 Test Item Value Reference Range Interpretation [...] (test code = 38.0 fL 38.5-51.6 L 68407-6) RDW-CV (test code = 14.9 % 12.1-15.4 788-0) PLT (test code = See_Comment H [Automated 777-3) message] The sy stem which generated this result transmitted reference range : 150 - 328 10*3/ ?L. The reference r carlota was not used to interpret this result as normal/abnormal . MPV (test code = 9.8 fL 9.8-13 77650-5) NRBC/100 WBC (test See_Comment [Automat ed code = 4974431238) message] The system which generated this result transmitted reference range : 0.0 - 10.0 /100 WBCs. The refer ence range was not u sed to interpret th is result as normal/abnormal . NRBC x10^3 (test code See_Comment [Auto mated = 7811859938) message] The s ystem which generated this result transmitted reference range : 10*3/?L. The reference range was not used to interpret this result as normal/abnormal . GRAN MAT (NEUT) % 51.8 % (test code = 770-8) IMM GRAN % (test code 0.40 % = 0567121550) LYMPH % (test code = 29.9 % 736-9) MONO % (test code = 10.2 % 5905-5) EOS % (test code = 5.8 % 713-8) BASO % (test code = 1.9 % 706-2) GRAN MAT x10^3(ANC) 4.17 10*3/uL 1.99-6.95 (test code = 6501867117) IMM GRAN x10^3 (test 0.03 10*3/uL 0-0.06 code = 7889025797) LYMPH x10^3 (test code 2.41 10*3/uL 1.09-3.23 = 731-0) MONO x10^3 (test code 0.82 10*3/uL 0.36-1.02 = 742-7) EOS x10^3 (test code = 0.47 10*3/uL 0.06-0.53 711-2) BASO x10^3 (test code 0.15 10*3/uL 0.01-0.09 H = 704-7) Lab Interpretation Abnormal (test code = 12523-9) [facility] [id number] 14:20:24 Test Item Value Reference Range Interpretation Comments CRP (test code = 1.3 mg/dL See_Comment H [Automated message] 1847899992) The system ic h generated this result transmit eunice reference range : <=0.8. The refe rence range was not u sed to interpret th is result as normal/abnormal . Lab Interpretation (test Abnormal code = 72345-7) [facility] METABOLIC PANEL (NA, K, CL, CO2, GLUCOSE, BUN, CREATININE, CA)2022-04-28 11:21:59 Test Item Value Reference Range Interpretation Comments NA (test code = 134 mmol/L 135-145 L 5918174975) K (test code = 3.9 mmol/L 3.5-5 6285597680) CL (test code = 105 mmol/L 98-108 8422898184) CO2 TOTAL (test code = 26 mmol/L 23-31 9577455180) AGAP (test code = 2-16 5028692158) BUN (test code = 5 mg/dL 7-23 L 6563416307) GLUCOSE (test code = 76 mg/dL 70-110 0846551720) CREATININE (test code = 0.88 mg/dL 0.6-1.25 1409692259) CALCIUM (test code = 8.2 mg/dL 8.6-10.6 L 3998041470) eGFR (test code = mL/min/1.73m2 3154200614) ROBERTO (test code = ROBERTO) Association of [...] tests). Lab Interpretation Abnormal (test code = 44384-8) [facility] WITH [id number] 11:21:23 Test Item Value Reference Range Interpretation [...] RDW-SD (test code = 40.4 fL 38.5-51.6 18304-4) RDW-CV (test code = 15.3 % 12.1-15.4 788-0) PLT (test code = See_Comment H [Automated 777-3) message] The sy stem which generated this result transmitted reference range : 150 - 328 10*3/ ?L. The reference r carlota was not used to interpret this result as normal/abnormal . MPV (test code = 9.8 fL 9.8-13 95724-2) NRBC/100 WBC (test See_Comment [Automat ed code = 8593482843) message] The system which generated this result transmitted reference range : 0.0 - 10.0 /100 WBCs. The refer ence range was not u sed to interpret th is result as normal/abnormal . NRBC x10^3 (test code See_Comment [Auto mated = 8352383739) message] The s ystem which generated this result transmitted reference range : 10*3/?L. The reference range was not used to interpret this result as normal/abnormal . GRAN MAT (NEUT) % 51.9 % (test code = 770-8) IMM GRAN % (test code 0.50 % = 1353113285) LYMPH % (test code = 25.7 % 736-9) MONO % (test code = 17.4 % 5905-5) EOS % (test code = 3.2 % 713-8) BASO % (test code = 1.3 % 706-2) GRAN MAT x10^3(ANC) 3.09 10*3/uL 1.99-6.95 (test code = 3084821357) IMM GRAN x10^3 (test 0.03 10*3/uL 0-0.06 code = 0412259290) LYMPH x10^3 (test code 1.53 10*3/uL 1.09-3.23 = 731-0) MONO x10^3 (test code 1.04 10*3/uL 0.36-1.02 H = 742-7) EOS x10^3 (test code = 0.19 10*3/uL 0.06-0.53 711-2) BASO x10^3 (test code 0.08 10*3/uL 0.01-0.09 = 704-7) Lab Interpretation Abnormal (test code = 09692-5) [facility] 11:17:00 Test Item Value Reference Range Interpretation Comments MAGNESIUM (test code = 0687481280) 1.7 mg/dL 1.7-2.4 Lab Interpretation (test code = Normal 22269-2) [facility] Confirmation (Lab Only)2022-04-27 17:22:22 Test Item Value Reference Range Interpretation Comments ABO & RH (test code O Positive Performe d at [facility] = 20) Laboratory Serv [facility] [address] [place] [phone] Free: [phone] A No. [id number] [facility] HospitalType and Screen - ONCE [id number] 16:14:13 Test Item Value Reference Range Interpretation Comments ABO & RH (test code O Positive Performe d at [facility] = 20) Laboratory Serv [facility] [address] [place] [phone] Free: [phone] A No. [id number] IAT (test code = Negative Performed a t [facility] 1185) Laboratory Serv [facility] [address] [place] [phone] Free: [phone] A No. [id number] [facility] HospitalACTIVATED PARTIAL THRMPLAS [id number] 16:10:24 Test Item Value Reference Range Interpretation [...] seconds. Lab Interpretation Normal (test code = 12412-4) [facility] HospitalProthrombin Time / [id number] 16:08:28 Test Item Value Reference Range Interpretation [...] tions. Lab Interpretation (test Normal code = 63141-6) [facility] HospitalTROPONIN [id number] 15:53:25 Test Item Value Reference Interpretation Comments Range TROPONIN I (test See_Comment [Automated code = 4320147523) message] The system which generated this result [...] biotin. Lab Interpretation Normal (test code = 48544-8) [facility]. METABOLIC PANEL (36585)2022-04-27 15:42:03 Test Item Value Reference Range Interpretation Comments NA (test code = 139 mmol/L 135-145 0474464578) K (test code = 4.1 mmol/L 3.5-5 1861270908) CL (test code = 105 mmol/L 98-108 6418575359) CO2 TOTAL (test code = 27 mmol/L 23-31 2690303311) AGAP (test code = 2-16 4176213207) BUN (test code = 6 mg/dL 7-23 L 6612458355) GLUCOSE (test code = 96 mg/dL 70-110 3764074595) CREATININE (test code = 0.87 mg/dL 0.6-1.25 9700044126) TOTAL BILI (test code = 0.3 mg/dL 0.1-1.4 6317705245) CALCIUM (test code = 9.1 mg/dL 8.6-10.6 8801072454) T PROTEIN (test code = 6.9 g/dL 6.3-8.2 5253346617) ALBUMIN (test code = 3.6 g/dL 3.5-5 4542751361) ALK PHOS (test code = 89 U/L 34-122 8627279293) ALTv (test code = 12 U/L 5-50 1742-6) AST(SGOT) (test code = 17 U/L 13-40 6044177268) eGFR (test code = mL/min/1.73m2 4463538558) ROBERTO (test code = ROBERTO) Association of [...] tests). Lab Interpretation Abnormal (test code = 57055-0) [facility]2022-09-21 15:42:03 Test Item Value Reference Range Interpretation Comments MAGNESIUM (test code = 0011855096) 1.9 mg/dL 1.7-2.4 Lab Interpretation (test code = Normal 27223-5) [facility] HospitalLIPASE2022-09-21 15:42:03 Test Item Value Reference Range Interpretation Comments LIPASE (test code = 1297001321) 115 U/L 0-220 Lab Interpretation (test code = Normal 32219-9) [facility] WITH [id number] 15:32:42 Test Item Value Reference Range Interpretation Comments WBC (test code = See_Comment [Automated 3590-2) message] The sy stem which generated this [...] RDW-SD (test code = 39.8 fL 38.5-51.6 30519-3) RDW-CV (test code = 15.1 % 12.1-15.4 788-0) PLT (test code = See_Comment H [Automated 777-3) message] The sy stem which generated this result transmitted reference range : 150 - 328 10*3/ ?L. The reference r carlota was not used to interpret this result as normal/abnormal . MPV (test code = 9.5 fL 9.8-13 L 00556-9) NRBC/100 WBC (test See_Comment [Automat ed code = 1659084002) message] The system which generated this result transmitted reference range : 0.0 - 10.0 /100 WBCs. The refer ence range was not u sed to interpret th is result as normal/abnormal . NRBC x10^3 (test code See_Comment [Auto mated = 8181110950) message] The s ystem which generated this result transmitted reference range : 10*3/?L. The reference range was not used to interpret this result as normal/abnormal . GRAN MAT (NEUT) % 51.9 % (test code = 770-8) IMM GRAN % (test code 0.30 % = 1590836543) LYMPH % (test code = 31.1 % 736-9) MONO % (test code = 13.0 % 5905-5) EOS % (test code = 2.5 % 713-8) BASO % (test code = 1.2 % 706-2) GRAN MAT x10^3(ANC) 3.35 10*3/uL 1.99-6.95 (test code = 8404917582) IMM GRAN x10^3 (test 0-0.06 code = 5028158952) LYMPH x10^3 (test code 2.01 10*3/uL 1.09-3.23 = 731-0) MONO x10^3 (test code 0.84 10*3/uL 0.36-1.02 = 742-7) EOS x10^3 (test code = 0.16 10*3/uL 0.06-0.53 711-2) BASO x10^3 (test code 0.08 10*3/uL 0.01-0.09 = 704-7) Lab Interpretation Abnormal (test code = 79451-0) [facility]- XR CHEST 1 [id number] 08:28:00Patient Name: ALEX BURROUGHS Unit No: [id number] EXAMS: CPT: [id number] XR CHEST 1 V 17673 History: Chest pain CHEST 1 VIEW FINDINGS: [...] (0831) BATCH NO: N/A Name: ALEX BURROUGHS [facility] Phys: Sky Starks MD [address] : 1975Age: 44 Sex: [place] [id number] Loc: N.ERS Exam Date: 05/23/2019 Status: REG ER PH: FAX: PAGE 1 Signed [id number] 07:18:00 Test Item Value Reference Range Interpretation Comments TROPONIN-I (test code = TROPI) <0.020 ng/mL 0.000-0.034 N BASIC METABOLIC [id number] 07:14:00 Test Item Value Reference Range Interpretation [...] mg/dL 8.5-10.5 N = CA) CBC W/AUTO [id number] 07:10:00 Test Item Value Reference Range Interpretation [...]
[2022-09-08] MEDS ORDERED: SUCRALFATE 1 GM TABLET ONE (21:21)
[2022-09-08] MEDS ORDERED: dexAMETHasone 10 MG/ML VIAL ONE (21:21)
--- NOTE | 2022-09-08 21:59 | ER ---
Nurse's Notes [facility] Name: Wicho Weeks Age: 47 yrs Sex: Male : 1975 Arrival Date: 09/08/2022 Time: 20:30 Bed 20 Private MD: Diagnosis: Crohn's disease, unspecified, without complications Presentation: 09/08 20:42 Chief complaint: Patient states: I have been feeling nausea and I have been having kd3 diarrhea with a bit of blood for two days. I went to the doctor yesterday and they gave me these pills for colitis but they were like [address] so i was going to see if i can get them here instead. Coronavirus screen: Vaccine status: Patient reports being unvaccinated. Ebola Screen: No symptoms or risks identified at this time. Initial Sepsis Screen: Does the patient meet any 2 criteria? No. Patient's initial sepsis screen is negative. Does the patient have a suspected source of infection? No. Patient's initial sepsis screen is negative. Risk Assessment: Do you want to hurt yourself or someone else? Patient reports no desire to harm self or others. Onset of symptoms was September 08, 2022. 20:42 Method Of Arrival: Ambulatory kd3 20:42 Acuity: DRE 3 kd3 Triage Assessment: 20:44 General: Appears in no apparent distress. Behavior is calm, cooperative. Pain: kd3 Complains of pain in abdomen. GI: Reports diarrhea, bloody stool, nausea. Historical: - PMHx: 20:44 Chronic Abdominal Pain; Colitis; GI Bleed; kd3 - PSHx: 20:44 Rectal abscess removal; kd3 - Immunization history:: Adult Immunizations up to date. - Social history:: Smoking status: Patient denies any tobacco usage or history of. Screenin:45 Abuse screen: Denies threats or abuse. Denies injuries from another. Nutritional ha1 screening: No deficits noted. Tuberculosis screening: No symptoms or risk factors identified. Assessment: 20:45 General: Appears uncomfortable, Behavior is calm, cooperative. Pain: Complains of pain ha1 in abdomen Pain does not radiate. Pain currently is 10 out of 10 on a pain scale. Neuro: Level of Consciousness is awake, alert, obeys commands, Oriented to person, place, time, situation. Respiratory: Airway is patent Respiratory effort is even, unlabored, Respiratory pattern is regular, symmetrical. GI: Abdomen is non-distended, obese, Bowel sounds present X 4 quads. Abd is soft and non tender. : No signs and/or symptoms were reported regarding the genitourinary system. EENT: No signs and/or symptoms were reported regarding the EENT system. Musculoskeletal: Circulation, motion, and sensation intact. Range of motion: intact in all extremities. 21:31 Reassessment: Patient and/or family updated on plan of care and expected duration. Pain ha1 level reassessed. Patient is alert, oriented x 3, equal unlabored respirations, skin warm/dry/pink. 22:30 Reassessment: Patient and/or family updated on plan of care and expected duration. Pain ha1 level reassessed. Patient is alert, oriented x 3, equal unlabored respirations, skin warm/dry/pink. Patient states feeling better. Patient states symptoms have improved. Vital Signs: 20:40 BP 133 / 96; Pulse 77; Resp 19; Temp 98.4(O); Pulse Ox 98% ; Weight 99.79 kg; Height 5 kd3 ft. 9 in. (175.26 cm); Pain 10/10; 21:03 BP 124 / 86; Pulse 83; Resp 18; Temp 98.2; Pulse Ox 96% ; Weight 99.79 kg; Height 5 ft. ls5 9 in. (175.26 cm); Pain 10/10; 22:00 BP 124 / 84; Pulse 75; Resp 15 S; Pulse Ox 99% on R/A; ha1 21:03 Body Mass Index 32.49 (99.79 kg, 175.26 cm) ls5 ED Course: 20:30 Patient arrived in ED. as 20:44 Triage completed. kd3 20:44 Arm band placed on left wrist. kd3 20:45 Patient has correct armband on for positive identification. Placed in gown. Bed in low ha1 position. Call light in reach. Side rails up X 1. 20:46 Greta Wright RN is Primary Nurse. ha1 20:53 Natali Egan FNP-C is PHCP. snw 20:53 Jono Kovacs MD is Attending Physician. snw 22:51 No provider procedures requiring assistance completed. Patient did not have IV access ha1 during this emergency room visit. Administered Medications: 21:14 Drug: CarafATE (sucralfate) 1 grams Route: PO; ha1 21:40 Follow up: Response: No adverse reaction ha1 21:15 Drug: Decadron (dexamethasone) 10 mg Route: IM; Site: right vastus lateralis; ha1 21:40 Follow up: Response: No adverse reaction ha1 Medication: 22:51 VIS not applicable for this client. ha1 Outcome: 21:58 Discharge ordered by MD. westbrook 22:51 Discharged to home ambulatory. ha1 22:51 Condition: stable 22:51 Discharge instructions given to patient, Instructed on discharge instructions, follow up and referral plans. medication usage, Demonstrated understanding of instructions, follow-up care, medications, Prescriptions given X 2. 22:52 Patient left the ED. ha1 Signatures: Natali Egan, PRODUCTION COST ESTIMATOR-C PRODUCTION COST ESTIMATOR-Csnw Mariann Weeks Kyli, RN RN kd3 Greta Wright RN RN ha1 Otto Marinelli 5
--- NOTE | 2022-09-08 21:59 | EDPHYS ---
Physician Documentation [facility] Name: Wicho Weeks Age: 47 yrs Sex: Male : 1975 Arrival Date: 09/08/2022 Time: 20:30 Bed 20 Private MD: ED Physician Jono Kovacs HPI: 09/08 23:35 This 47 yrs old Male presents to ER via Ambulatory with complaints of snw Abdominal Pain, Epigastric Pain. 23:35 The patient presents with abdominal pain in the epigastric area. Onset: The snw symptoms/episode began/occurred acutely. The symptoms do not radiate. Associated signs and symptoms: Pertinent positives: blood in stools, diarrhea. The symptoms are described as crampy. Severity of pain: At its worst the pain was moderate. The patient has experienced similar episodes in the past, chronically. The patient has been recently seen by a physician: yesterday. Historical: - PMHx: 20:44 Chronic Abdominal Pain; Colitis; GI Bleed; kd3 - PSHx: 20:44 Rectal abscess removal; kd3 - Immunization history:: Adult Immunizations up to date. - Social history:: Smoking status: Patient denies any tobacco usage or history of. ROS: 23:35 Constitutional: Negative for fever, chills, and weight loss, Eyes: Negative for injury, snw pain, redness, and discharge, ENT: Negative for injury, pain, and discharge, Neck: Negative for injury, pain, and swelling, Cardiovascular: Negative for chest pain, palpitations, and edema, Respiratory: Negative for shortness of breath, cough, wheezing, and pleuritic chest pain. 23:35 MS/Extremity: Negative for injury and deformity, Skin: Negative for injury, rash, and discoloration, Neuro: Negative for headache, weakness, numbness, tingling, and seizure. 23:35 Abdomen/GI: Positive for abdominal pain, diarrhea, abdominal cramps, rectal bleeding. Exam: 23:36 Constitutional: This is a well developed, well nourished patient who is awake, alert, snw and in no acute distress. Head/Face: Normocephalic, atraumatic. Eyes: Pupils equal round and reactive to light, extra-ocular motions intact. Lids and lashes normal. Conjunctiva and sclera are non-icteric and not injected. Cornea within normal limits. Periorbital areas with no swelling, redness, or edema. Chest/axilla: Normal chest wall appearance and motion. Nontender with no deformity. No lesions are appreciated. Cardiovascular: Regular rate and rhythm with a normal S1 and S2. No gallops, murmurs, or rubs. Normal PMI, no JVD. No pulse deficits. Respiratory: Lungs have equal breath sounds bilaterally, clear to auscultation and percussion. No rales, rhonchi or wheezes noted. No increased work of breathing, no retractions or nasal flaring. 23:36 Back: No spinal tenderness. No costovertebral tenderness. Full range of motion. Skin: Warm, dry with normal turgor. Normal color with no rashes, no lesions, and no evidence of cellulitis. MS/ Extremity: Pulses equal, no cyanosis. Neurovascular intact. Full, normal range of motion. Neuro: Awake and alert, GCS 15, oriented to person, place, time, and situation. Cranial nerves II-XII grossly intact. Motor strength 5/5 in all extremities. Sensory grossly intact. Cerebellar exam normal. Normal gait. Psych: Awake, alert, with orientation to person, place and time. Behavior, mood, and affect are within normal limits. 23:36 Abdomen/GI: Inspection: distension, Bowel sounds: active, all quadrants, Palpation: mild abdominal tenderness, moderate abdominal tenderness, in the right lower quadrant and left lower quadrant. Vital Signs: 20:40 BP 133 / 96; Pulse 77; Resp 19; Temp 98.4(O); Pulse Ox 98% ; Weight 99.79 kg; Height 5 kd3 ft. 9 in. (175.26 cm); Pain 10/10; 21:03 BP 124 / 86; Pulse 83; Resp 18; Temp 98.2; Pulse Ox 96% ; Weight 99.79 kg; Height 5 ft. ls5 9 in. (175.26 cm); Pain 10/10; 22:00 BP 124 / 84; Pulse 75; Resp 15 S; Pulse Ox 99% on R/A; ha1 21:03 Body Mass Index 32.49 (99.79 kg, 175.26 cm) ls5 MDM: 20:58 Patient medically screened. snw 23:36 Differential diagnosis: gastritis, gastroesophageal reflux disease, GI Bleed, crohn's. snw Data reviewed: vital signs, nurses notes. Care significantly affected by the following chronic conditions: Crohn's. Counseling: I had a detailed discussion with the patient and/or guardian regarding: the historical points, exam findings, and any diagnostic results supporting the discharge/admit diagnosis, the presence of at least one elevated blood pressure reading (>120/80) during this emergency department visit, the need for outpatient follow up, to return to the emergency department if symptoms worsen or persist or if there are any questions or concerns that arise at home. Response to treatment: the patient's symptoms have mildly improved after treatment. Special discussion: Based on the patient's Hx, exam, and Dx evaluation, there is no indication for emergent surgery or inpatient Tx. It is understood by the patient/guardian that if the Sx's persist or worsen they need to return immediately for re-evaluation. Based on the history and exam findings, there is no indication for further emergent testing or inpatient evaluation. I discussed with the patient/guardian the need to see the vessel liner for further evaluation of the symptoms. I discussed with the patient/guardian the need to see the primary care provider for further evaluation of the symptoms. Administered Medications: 21:14 Drug: CarafATE (sucralfate) 1 grams Route: PO; ha1 21:40 Follow up: Response: No adverse reaction ha1 21:15 Drug: Decadron (dexamethasone) 10 mg Route: IM; Site: right vastus lateralis; ha1 21:40 Follow up: Response: No adverse reaction ha1 Disposition: 09/09 03:12 Co-signature as Attending Physician, Jono Kovacs MD I reviewed the patient's care rt provided by the Advanced Practice Provider and agree with the diagnosis and treatment plan. Disposition Summary: 09/08/22 21:58 Discharge Ordered Location: Home snw Condition: Stable snw Diagnosis - Crohn's disease, unspecified, without complications snw Followup: snw - With: Emergency Department - When: As needed - Reason: Worsening of condition Followup: snw - With: Private Physician - When: 1 week - Reason: Recheck today's complaints, Continuance of care, Re-evaluation by your physician Discharge Instructions: - Discharge Summary Sheet snw - Crohn's Disease snw Forms: - Medication Reconciliation Form snw - Work release form snw - Thank You Letter snw - Antibiotic Education snw - Prescription Opioid Use snw Prescriptions: - Protonix 40 mg Oral Tablet - take 1 tablet by ORAL route once daily; 30 tablet; Refills: 0, Product snw Selection Permitted - Prednisone 20 mg Oral Tablet - take 1 tablet by ORAL route every 12 hours for 5 days; 10 tablet; Refills: 0, snw Product Selection Permitted Signatures: Natali Egan, CHILD ABUSE WORKER-C CHILD ABUSE WORKER-Csnw Kimberly Miller RN RN kd3 Greta Wright RN RN ha1 Jono Kovacs MD MD rt
[2022-09-08 23:05] VITALS: TEMP 98.2
[2022-09-08 23:06] VITALS: BP 124/84; O2SAT 99
== END 2022-09-08 22:52 | disposition home or self-care (01) ==
LOC: ER 20:29
DX: K50.90 Crohn's disease, unspecified, without complications (principal)
CPT/HCPCS: 96372; 99283; J1100

== ENCOUNTER 2022-10-10 10:34 | Emergency (ER) | payer SELFPAY ==
--- OUTSIDE RECORDS SUMMARY | 2022-10-10 10:42 | XMS REPORT | Continuity of Care Document ---
:1975 Author Organization [facility] t Address [address] [place] [address] [address] [place] [address] Care Team Providers Name Role Phone TYE FONSECA Primary Care Physician Unavailable ANA PEACOCK Attending Clinician Unavailable ELLI HARLEY Attending Clinician Unavailable Elli Harley DO Attending Clinician JUSTIN BAPTISTE Attending Clinician Unavailable Justin Baptiste MD Attending Clinician Doctor Unassigned, [place] Attending Clinician Unavailable RAYRAY GAMEZ Attending Clinician Unavailable Romie Lewis MD Attending Clinician Jaci Estrella DO Attending Clinician Rayray Gamez MD Attending Clinician Marybel Sexton MD Attending Clinician CONSTANTINO OKEEFE Attending Clinician Unavailable Constantino Okeefe MD Attending Clinician Lana Cochran LVN Attending Clinician DARRYN LANDA Attending Clinician Unavailable Viv Hyde Attending Clinician Darryn Landa MD Attending Clinician JOHN MARCANO Attending Clinician Unavailable GREGORIO FRERELL Attending Clinician Unavailable RJ ADDISON Attending Clinician [...] Univers stools stools 0-05 ity of 00:00: [address] Obesity Obesity Disease Active 2021-08 Univers (BMI (BMI 0-05 ity of 30-39.9) 30-39.9) 00:00: [address] Proctocoli Proctocoli Disease Active U nivers tis tis 9-21 ity of 00:00: [address] Allergies, Adverse Reactions, Alerts Allergy Allergy Status Severity Reaction(s) Onset Inactive Treating Comm ents Source Name Type Date Date Clinician No Known DA Active U 2018-08 [facility] All[facility]ie 0-17 [facility] 00:00: Health [address] [facility] st NO KNOWN Drug Active Univers ALLERGIE Class ity of S [facility] Social History Social Habit Start Date Stop Date Quantity Comments Source History of Passive smoker [facility] tobacco use [facility] Exposure to 2022-08-14 2022-08-24 Not sure [facility] SARS-CoV-2 00:00:00 14:04:00 [facility] [place] Alcohol intake 2022-08-24 2022-08-24 Ex-drinker [facility] 00:00:00 00:00:00 (finding) [facility] Education 2022-05-11 2022-05-11 21 [facility] 00:00:00 00:00:00 [facility] Tobacco use and 2022-04-27 2022-04-27 Smokeless tobacco Un iversity of exposure 00:00:00 00:00:00 non-user [facility] Sex Ass[birth year] At [birth year] Universit y of 00:00:00 00:00:00 [facility] Smoking Status Start Date Stop Date Source Ex-smoker 2022-04-27 00:00:00 2022-04-27 00:00:00 [facility] Medications Ordered Filled Start Stop Current Ordering Indication Dosage Frequency Signature Comments Components Source Medication Medication Date Date Medication? Clinician (SIG) Name Name ketorolac 2022- No 15mg 15 mg, Unive rs (TORADOL) 08-25 Slow IV ity of injection 01:15: 00:23 Push, [place] 15 mg 00 :00 ONCE, 1 Medical dose, On Branch 08/24/22 at 1915, JANNA iopamidol 2022- No [id number] 105mL 105 mL, Univers (ISOVUE 08-25 Intravenou [...] 08/24/22 at 1700, JANNA ondansetron 0 Yes [id number] 4mg Take 1 Univers 4 mg 1-18 tablet by ity of disintegrat 00:00: mouth [place] ing tablet 00 every 8 Medica l (eight) Branch hours as needed for Nausea and Vomiting (N/V). dicyclomine 2022-0 Yes [id number] 20mg Take 1 Univers 20 mg 1-18 [...] at 2230, 1 mL predniSONE 2021-08 Yes [id number] Take 1 po Univers 20 mg 1-26 tid x 2 ity of tablet 00:00: days, then 00 take 1 po Medical bid x 3 Branch days, then take 1 po daily x 5 days. predniSONE 2021-08 Yes [id number] Take 1 po Univers 20 mg 1-26 tid x 2 ity of tablet 00:00: days, then 00 take 1 po Medical bid x 3 Branch days, then take 1 po daily x 5 days. famotidine 2021-08- No [id number] 20mg Take 1 Univers (PEPCID) 20 09-01 12-12 tablet by it y of mg tablet 00:00: 05:59 mouth in [place] 00 :00 the Medical morning Branch and 1 tablet in the evening. Do all this for 15 days. predniSONE 2021-08- No [id number] Take 1 po Univers 20 mg 09-01 tid x 2 ity of tablet 00:00: 00:00 [place], [place] 00 [place] 1 po bid x Medical 3 days, Branch then 1 po daily x 5 days famotidine 2021-08- No [id number] 20mg Take 1 Univers (PEPCID) 20 09-01 tablet by it y of mg tablet 00:00: 00:00 mouth in [place] 00 :00 the Medical morning Branch and 1 tablet in the evening. Do all this for 15 days. predniSONE 2021-08- No [id number] Take 3 Univers 5 mg tablet 08-2208 tablets by i ty of 00:00: 05:59 mouth [place] 00 :00 daily for Medical 7 days, Branch THEN 2 tablets daily for 7 days, THEN 1 tablet daily for 7 days. predniSONE 2021-08- No [id number] Take 3 Univers 5 mg tablet 08-22 tablets by i ty of 00:00: 05:59 mouth [place] 00 :00 daily for Medical 7 days, Branch THEN 2 tablets daily for 7 days, THEN 1 tablet daily for 7 days. predniSONE 2021-08- No [id number] Take 3 Univers 5 mg tablet 08-22 tablets by i ty of 00:00: 05:59 mouth [place] 00 :00 daily for Medical 7 days, Branch THEN 2 tablets daily for 7 days, THEN 1 tablet daily for 7 days. lactobacill 2021-08- No [id number] .5mg Take 1 Univers us 0-12 02-10 tablet by ity of acidophilus 00:00: 05:59 mouth in [place] 00 :00 the Medical morning Branch for 120 days. lactobacill 2021-08- No [id number] .5mg Take 1 Univers us 0-12 02-10 tablet by ity of acidophilus 00:00: 05:59 mouth in [place] 00 :00 the Medical morning Branch for 120 days. lactobacill 2021-08- No [id number] .5mg Take 1 Univers us 0-12 02-10 tablet by ity of acidophilus 00:00: 05:59 mouth in [place] 00 :00 the Medical morning Branch for 120 days. lactobacill 2021-08- No [id number] .5mg Take 1 Univers us 0-12 02-10 tablet by ity of acidophilus 00:00: 05:59 mouth in [place] 00 :00 the Medical morning Branch for 120 days. predniSONE 2021-08- No [id number] Take 6 Univers 10 mg 0-12 11-17 [...] it y of succ 14:30: s, Q8H, [place] (SOLU-MEDRO 00 First dose Me dical L (PF)) on [facility] Branch injection 05/14/22 at 20 mg 0930, Until Discontinu ed, Routine methylPREDN 2021-08 No 20mg 20 mg, Uni vers ISolone sod 0-08 10-11 Intravenou i ty of succ 14:30: 13:41 s, Q8H, [place] (SOLU-MEDRO 00 :53 First dose Me dical L (PF)) on Sat Branch injection 05/14/22 at 20 mg 0930, Until Discontinu ed, Routine acetaminoph 2021-08 Yes 650mg 650 mg, Un kar en 0-07 Oral, ity of (TYLENOL) 23:05: Q6HPRN, [place] tablet 650 22 Starting Medic al mg on Mon Branch 05/13/22 at 1805, Until Discontinu ed, Routine, Pain (scale 1-3), Temp > 38.5 C acetaminoph 2021-08 Yes 650mg 650 mg, Un kar en 0-07 Oral, ity of (TYLENOL) 23:05: Q6HPRN, [place] tablet 650 22 Starting Medic al mg [...] 0-07 Units, ity of (vitamin 14:00: Oral, [place] D3) tablet 00 DAILY, Medical 2,000 Units [...] IV Push, ity of (PF)) 22:23: Q6HPRN, [place] injection 4 56 Nausea and Me dical mg Vomiting Branch (N/V), Starting on Yue 05/12/22 at 1723
Do ses of ondansetro n 16 mg and above need to be administer ed via IV piggyback. For Dose >=24mg ECG monitoring is advisable.
ondansetron 2021-08 Yes 4mg 4 mg, Slow Univers (ZOFRAN 0-06 IV Push, ity of (PF)) 22:23: Q6HPRN, [place] injection 4 56 Nausea and Me dical [...] Non-formul lenny medication : FERDINAND KELLY
R asad for non-formul lenny use: SPECIFIC INDICATION FOR [...] on Wed Medical packet 1 05/11/22 at [facility] h Packet 2145, Until Discontinu ed, Routine cholestyram 2021-08 Yes 1{packe 1 Packet, Univers ine 0-06 t} Oral, BID, ity of (QUESTRAN) 02:45: First dose [place] 4 gram 00 on Mon Medical packet 1 05/11/22 at [facility] h Packet 2145, Until Discontinu ed, [...] Mon05/11/22 at 1430, STAT iopamidol 2021-08 No [id number] 75mL 75 mL, Univers (ISOVUE 0-04 10-04 [...] :00 dose, On Medi miranda mg Mon [place] 05/09/22 at 2115, JANNA ferrous 2021-08- No 325mg Take 325 Univ ers sulfate 325 0-03 10-03 mg by ity of mg (65 mg 20:43: 00:00 mouth in [place] iron) 33 :00 the Medical tablet morning. Branch mesalamine 2021-08- No [id number] 1.2g Take 1 Univers 1.2 gram EC 0-03 10-18 tablet by it y of tablet 00:00: 04:59 mouth [place] 00 :00 daily with Medical breakfast Branch for 14 days. mesalamine 2021-08 No [id number] 1.2g Take 1 Univers 1.2 gram EC 0-03 10-18 tablet by it y of tablet 00:00: 04:59 mouth [place] 00 :00 daily with Medical breakfast Branch for 14 days. mesalamine 2021-08 No [id number] 1.2g Take 1 Univers 1.2 gram EC [...] at Branch 2000, Until Discontinu ed, Routine
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 Indication s: acute pain mesalamine Yes [id number] 1.2g Take 1 U nivers 1.2 gram EC 9-23 tablet by ity of tablet 00:00: mouth [place] 00 daily with Medical breakfast. Branch vancomycin Yes [id number] 125mg Take 1 Univers 125 mg 9-23 capsule by ity of capsule 00:00: mouth 4 00 (four) Medical times Branch daily. mesalamine 0 Yes [id number] 1.2g Take 1 U nivers 1.2 gram EC 9-23 tablet by ity of tablet 00:00: mouth [place] 00 daily with Medical breakfast. Branch vancomycin Yes [id number] 125mg Take 1 Univers 125 mg 9-23 capsule by ity of capsule 00:00: mouth 4 00 (four) Medical times Branch daily. mesalamine Yes [id number] 1.2g Take 1 U nivers 1.2 gram EC 9-23 tablet by ity of tablet 00:00: mouth [place] 00 daily with Medical breakfast. Branch vancomycin Yes [id number] 125mg Take 1 Univers 125 mg 9-23 [...] 7-10). Indication s: acute pain mesalamine Yes [id number] 1.2g Take 1 U nivers 1.2 gram EC 9-23 tablet by ity of tablet 00:00: mouth [place] 00 daily with Medical breakfast. Branch vancomycin Yes [id number] 125mg Take 1 Univers 125 mg 9-23 capsule by ity of capsule 00:00: mouth 4 [place] 00 (four) Medical times Branch daily. mesalamine 2021- No [id number] 1.2g Take 1 Univers 1.2 gram EC 9-23 10-11 tablet by it y of tablet 00:00: 00:00 mouth [place] 00 :00 daily with Medical breakfast. Branch vancomycin 2021- No [id number] 125mg Take 1 Univers 125 mg 9-23 [...] Indication s: acute pain vancomycin 2021- No [id number] 125mg Take 1 Univers 125 mg 04-29 capsule by ity of capsule 00:00: 00:00 mouth 4 [place] 00 :00 (four) Medical times Branch daily for 9 days. mesalamine 2021- No [id number] 1.2g Take 1 Univers 1.2 gram EC [...] Itching acetaminoph 0 Yes 1{tbl} 1 tablet, [facility] en-codeine 04-27 Oral, ity of (TYLENOL 23:57: Q4HPRN, [place] #3) 300-30 43 Starting Medic al mg [...] ity of 1,000 mg in 20:00: 19:48 [place], [place] NaCl 0.9% 00 :56 Q24H ABX, [...] Routine, Pain (scale 1-3) iopamidol 2021- No [id number] 70mL 70 mL, Univers (ISOVUE 04-27 Intravenou [...] 01:11:00 148 mm[Hg] Univer sity of pressure [facility] Diastolic blood 2022-08-25 01:11:00 98 mm[Hg] Unive rsity of pressure [facility] Heart rate 2022-08-25 01:11:00 81 /min Universi ty of [facility] Respiratory rate 2022-08-25 01:11:00 16 /min Univ ersity of [facility] Oxygen saturation in 2022-08-25 01:11:00 99 /min University of Arterial blood by [employer] Pulse oximetry Branch Body temperature 2022-08-24 20:06:00 36.83 Breann Univ ersity of [facility] Body height 2022-08-24 20:06:00 175.3 cm Universi ty of [facility] Body weight 2022-08-24 20:06:00 90.719 kg Universi ty of [facility] BMI 2022-08-24 20:06:00 29.53 kg/m2 Universi ty of [facility] Systolic blood 2022-07-03 06:00:00 134 mm[Hg] Univer sity of pressure [facility] Diastolic blood 2022-07-03 06:00:00 84 mm[Hg] Unive rsity of [facility] Heart rate 2022-07-03 06:00:00 72 /min Universi ty of [facility] Respiratory rate 2022-07-03 06:00:00 18 /min Univ ersity of [facility] [place] [facility] Oxygen saturation in 2022-07-03 06:00:00 95 /min University of Arterial blood by [employer] miranda Pulse oximetry Branch Body temperature 2022-07-03 03:50:00 37.39 Breann Univ ersity of [facility] Body height 2022-07-03 03:50:00 175.3 cm Universi ty of [facility] Body weight 2022-07-03 03:50:00 90.719 kg Universi ty of [facility] BMI 2022-07-03 03:50:00 29.53 kg/m2 Universi ty of [facility] Systolic blood 2022-05-17 16:43:00 128 mm[Hg] Univer sity of pressure [place] [facility] Diastolic blood 2022-05-17 16:43:00 72 mm[Hg] Unive rsity of pressure [place] [facility] Heart rate 2022-05-17 16:43:00 58 /min Universi ty of [place] [facility] Body temperature 2022-05-17 16:43:00 35.83 Breann Univ ersity of [place] [facility] Respiratory rate 2022-05-17 16:43:00 18 /min Univ ersity of [place] [facility] Oxygen saturation in 2022-05-17 16:43:00 100 /min University of Arterial blood by [place] [employer] miranda Pulse oximetry Branch Body weight 2022-05-17 09:42:00 87 kg Universi ty of [place] [facility] BMI 2022-05-17 09:42:00 28.32 kg/m2 Universi ty of [place] [facility] Body height 2022-05-11 22:16:00 175.3 cm Universi ty of [place] [facility] Systolic blood 2022-05-13 14:58:00 128 mm[Hg] Univer sity of pressure [place] [facility] Diastolic blood 2022-05-13 14:58:00 80 mm[Hg] Unive rsity of pressure [place] [facility] Heart rate 2022-05-13 14:58:00 86 /min Universi ty of [place] [facility] Body temperature 2022-05-13 14:58:00 37.67 Breann Univ ersity of [place] [facility] Respiratory rate 2022-05-13 14:58:00 18 /min Univ ersity of [place] [facility] Oxygen saturation in 2022-05-13 14:58:00 99 /min University of Arterial blood by [place] [employer] miranda Pulse oximetry Branch Body weight 2022-05-13 09:27:00 90.992 kg Universi ty of [place] [facility] BMI 2022-05-13 09:27:00 28.32 kg/m2 Universi ty of [place] [facility] Body height 2022-05-11 22:16:00 175.3 cm Universi ty of [place] [facility] Heart rate 2022-05-10 04:12:00 73 /min Universi ty of [place] [facility] Body temperature 2022-05-10 04:12:00 36.5 Breann Univ ersity of [place] [facility] Oxygen saturation in 2022-05-10 04:12:00 97 /min University of Arterial blood by [place] Medi miranda Pulse oximetry Branch Systolic blood 2022-05-10 04:00:00 133 mm[Hg] Univer sity of pressure [facility] Diastolic blood 2022-05-10 04:00:00 79 mm[Hg] [facility] Respiratory rate 2022-05-10 04:00:00 19 /min [facility] height 2022-05-10 01:42:00 175.3 cm Universi [facility] Body weight 2022-05-10 01:42:00 86.183 kg Universi [facility] BMI 2022-05-10 01:42:00 28.06 kg/m2 Universi [facility] Systolic blood 2022-04-29 17:14:00 132 mm[Hg] Univer sity of pressure [facility] Diastolic blood 2022-04-29 17:14:00 98 [facility]Hg[facility] 2022-04-29 17:14:00 90 /min [facility] Body temperature 2022-04-29 17:14:00 36.28 Breann [facility] Respiratory rate 2022-04-29 17:14:00 18 /min [facility] Oxygen saturation in 2022-04-29 17:14:00 100 /min [facility] Arterial blood by [facility] Pulse oximetry [place] Body weight 2022-04-28 09:36:00 87.998 kg [facility] BMI 2022-04-28 09:36:00 28.65 kg/m2 [facility] Body height 2022-04-27 21:57:00 175.3 cm [facility] Procedures Procedure Date / Time Performing Clinician Source Performed COMP. METABOLIC PANEL 2022-08-24 21:45:00 Elli Harley [facility] ([id number]) [facility] CBC WITH DIFF 2022-08-24 21:45:00 Elli Harley [facility] LACTIC ACID WHOLE BLOOD 2022-08-24 21:45:00 Elli Harley [facility] CONSENT/REFUSAL FOR 2022-08-24 19:59:50 Doctor Unassigned, Unive [facility] DIAGNOSIS AND TREATMENT [place] [facility] [place] COMP. METABOLIC PANEL 2022-07-03 04:42:00 Justin Baptiste [facility] ([id number]) [facility] CBC WITH DIFF 2022-07-03 04:42:00 Justin Baptiste [place] [facility] CONSENT/REFUSAL FOR 2022-07-03 03:35:53 Doctor Unassigned, [facility] DIAGNOSIS AND TREATMENT [place] [facility] [place] BASIC METABOLIC PANEL 2022-05-16 08:42:00 [facility], K, CL, CO2, GLUCOSE, Medica l Branch BUN, CREATININE, CA) CBC WITH DIFF 2022-05-16 08:42:00 [facility] BASIC METABOLIC PANEL 2022-05-16 08:42:00 [facility] (NA, K, CL, CO2, GLUCOSE, Medica l Branch BUN, CREATININE, CA) CBC WITH DIFF 2022-05-16 08:42:00 [facility] BASIC METABOLIC PANEL 2022-05-15 09:46:00 [facility] (NA, K, CL, CO2, GLUCOSE, Medica l Branch BUN, CREATININE, CA) CBC WITH DIFF 2022-05-15 09:46:00 [facility] BASIC METABOLIC PANEL 2022-05-15 09:46:00 [facility] (NA, K, CL, CO2, GLUCOSE, Medica l Branch BUN, CREATININE, CA) CBC WITH DIFF 2022-05-15 09:46:00 [facility] BASIC METABOLIC PANEL 2022-05-14 08:30:00 [facility] (NA, K, CL, CO2, GLUCOSE, Medica l Branch BUN, CREATININE, CA) CBC WITH DIFF 2022-05-14 08:30:00 [facility]mitriy [facility] BASIC METABOLIC PANEL 2022-05-14 08:30:00 [facility] (NA, K, CL, CO2, GLUCOSE, Medica l Branch BUN, CREATININE, CA) CBC WITH DIFF 2022-05-14 08:30:00 Dmitriy [facility] SURGICAL PATHOLOGY EXAM 2022-05-13 16:29:00 Marybel Sexton [facility] FLEXIBLE SIGMOIDOSCOPY 2022-05-13 16:08:00 Marybel Sexton [facility] FLEXIBLE SIGMOIDOSCOPY 2022-05-13 16:08:00 Marybel Sexton [facility] FLEXIBLE SIGMOIDOSCOPY 2022-05-13 16:07:35 Ferdinand Kelly [facility] (ENDO) [facility] FLEXIBLE SIGMOIDOSCOPY 2022-05-13 16:07:35 Robin eric [facility] (ENDO) [facility] HB ABO GROUPING 2022-05-13 11:11:00 Robin [facility] HB ABO GROUPING 2022-05-13 11:11:00 Robin [facility] BASIC METABOLIC PANEL 2022-05-13 08:57:00 [facility] (NA, K, CL, CO2, GLUCOSE, Medica l Branch BUN, CREATININE, CA) CBC WITH DIFF 2022-05-13 08:57:00 Dmitriy [facility] BASIC METABOLIC PANEL 2022-05-13 08:57:00 [facility] (NA, K, CL, CO2, GLUCOSE, Medica l Branch BUN, CREATININE, CA) CBC WITH DIFF 2022-05-13 08:57:00 Dmitriy StovallUC [facility] VITAMIN D, 25-OH 2022-05-12 13:31:00 Robin [facility] VITAMIN D, 25-OH 2022-05-12 13:31:00 Robin [facility] PHOSPHORUS 2022-05-12 12:20:00 Robin eric [facility] MAGNESIUM 2022-05-12 12:20:00 Robin [facility] VITAMIN B12, LEVEL 2022-05-12 12:20:00 Ferdinand Kelly [facility] C-REACTIVE PROTEIN 2022-05-12 12:20:00 Ferdinand Kelly [facility] THYROID STIMULATING 2022-05-12 12:20:00 Ferdinand Kelly [facility] HORMONE [facility] COMP. METABOLIC PANEL 2022-05-12 12:20:00 Ferdinand Kelly [facility] ([id number]) Medical Branch LIPID PANEL ([id number])(TOTAL 2022-05-12 12:20:00 Ferdinand Kelly [facility] CHOLESTEROL, Medical Branch TRIGLYCERIDES, HDL) N-TERMINAL PRO-BNP 2022-05-12 12:20:00 Ferdinand Kelly [facility] PHOSPHORUS 2022-05-12 12:20:00 Ferdinand Kelly [facility] MAGNESIUM 2022-05-12 12:20:00 Robin eric [facility] VITAMIN B12, LEVEL 2022-05-12 12:20:00 Ferdinand Kelly [facility] C-REACTIVE PROTEIN 2022-05-12 12:20:00 Ferdinand Kelly [facility] THYROID STIMULATING 2022-05-12 12:20:00 Ferdinand Kelly [facility] HORMONE [facility] COMP. METABOLIC PANEL 2022-05-12 12:20:00 Ferdinand Kelly [facility] ([id number]) Medical Branch LIPID PANEL ([id number])(TOTAL 2022-05-12 12:20:00 Ferdinand Kelly [facility] CHOLESTEROL, [facility] TRIGLYCERIDES, HDL) N-TERMINAL PRO-BNP 2022-05-12 12:20:00 Ferdinand Kelly [facility] PROTHROMBIN TIME / INR 2022-05-12 12:19:00 Ferdinand Kelly [facility] PROTHROMBIN TIME / INR 2022-05-12 12:19:00 Ferdinand Kelly [facility] CBC WITH DIFF 2022-05-12 12:18:00 Ferdinand Kelly [facility] CBC WITH DIFF 2022-05-12 12:18:00 Robin, [facility] XR KUB 2022-05-12 05:58:38 Robin [facility] XR KUB 2022-05-12 05:58:38 Robin [facility] SEDIMENTATION RATE 2022-05-12 02:23:00 Robin [facility] CALPROTECTIN, FECAL 2022-05-12 02:23:00 Robin eric [facility] SEDIMENTATION RATE 2022-05-12 02:23:00 Robin [facility] CALPROTECTIN, FECAL 2022-05-12 02:23:00 Robin [facility] OCCULT (GUAIAC) BLOOD 2022-05-12 02:10:00 Robin [facility] OCCULT (GUAIAC) BLOOD 2022-05-12 02:10:00 Ferdinand Kelly [facility] URINALYSIS 2022-05-11 19:42:00 Romie Lewis [facility] CLOSTRIDIUM DIFFICILE 2022-05-11 19:42:00 Romie Lewis [facility] FECAL PATHOGENS BY PCR 2022-05-11 19:42:00 Ferdinand Kelly [facility] URINALYSIS 2022-05-11 19:42:00 Romie Lewis [facility] CLOSTRIDIUM DIFFICILE 2022-05-11 19:42:00 Romie Lewis [facility] FECAL PATHOGENS BY PCR 2022-05-11 19:42:00 Ferdinand Kelly [facility] LACTIC ACID WHOLE BLOOD 2022-05-11 19:12:00 Romie Lewis [facility] LACTIC ACID WHOLE BLOOD 2022-05-11 19:12:00 Romie Lewis [facility] BLOOD CULTURE SCREEN 2022-05-11 19:10:00 Romie Lewis [facility] LIPASE 2022-05-11 19:10:00 Romie Lewis [facility] COMP. METABOLIC PANEL 2022-05-11 19:10:00 Romie Lewis [facility] ([id number]) [facility] CBC WITH DIFF 2022-05-11 19:10:00 Romie Lewis [facility] GLYCOSYLATED HEMOGLOBIN 2022-05-11 19:10:00 Ferdinand Kelly [facility] BLOOD CULTURE SCREEN 2022-05-11 19:10:00 Romie Lewis [facility] LIPASE 2022-05-11 19:10:00 Romie Lewis [facility] COMP. METABOLIC PANEL 2022-05-11 19:10:00 Romie Lewis [facility] ([id number]) [facility] CBC WITH DIFF 2022-05-11 19:10:00 Romie Lewis [facility] GLYCOSYLATED HEMOGLOBIN 2022-05-11 19:10:00 Ferdinand Kelly [facility] ([facility] BLOOD CULTURE SCREEN 2022-05-11 19:00:00 Romie Lewis [facility] BLOOD CULTURE SCREEN 2022-05-11 19:00:00 Romie Lewis [facility] CONSENT/REFUSAL FOR 2022-05-11 18:00:56 Doctor Unassigned, [facility]REFUS[facility] FOR 2022-05-11 18:00:56 Doctor Unassigned, [facility] DIAGNOSIS AND TREATMENT [place] [facility] CT ABDOMEN PELVIS W 2022-05-10 03:29:54 Constantino Okeefe [facility] CONTRAST [facility] HB ABO GROUPING 2022-05-10 02:49:[address] [facility] LIPASE 2022-05-10 02:48:[address] [facility] COMP. METABOLIC PANEL 2022-05-10 02:48:00 Constantino Okeefe [facility] ([id number]) [facility] CBC WITH DIFF 2022-05-10 02:48:[address] [facility] CONSENT/REFUSAL FOR 2022-05-10 01:33:55 Doctor Unassigned, [facility] DIAGNOSIS AND TREATMENT [facility] [place] [facility] MAGNESIUM 2022-04-29 08:47:00 Cordell [facility] FERRITIN SERUM 2022-04-29 08:47:00 Cordell [facility] IRON 2022-04-29 08:47:00 Cordell [facility] TOTAL IRON BINDING 2022-04-29 08:47:00 Cordell [facility] CAPACITY [facility] BASIC METABOLIC PANEL 2022-04-29 08:47:00 Cordell [facility] (NA, K, CL, CO2, GLUCOSE, Medica l Branch BUN, CREATININE, CA) CBC WITH DIFF 2022-04-29 08:47:00 Cordell [facility] MAGNESIUM 2022-04-28 09:51:00 Dylan [facility] BASIC METABOLIC PANEL 2022-04-28 09:51:00 Jaci Estrella [facility] (NA, K, CL, CO2, GLUCOSE, Medica Branch BUN, CREATININE, CA) CBC WITH DIFF 2022-04-28 09:51:00 Jaci Estrella [facility] C-REACTIVE PROTEIN 2022-04-28 01:53:00 Jaci Estrella [facility] CLOSTRIDIUM DIFFICILE 2022-04-28 01:46:00 Jaci Estrella [facility] TOXIN [facility] FECAL PATHOGENS BY PCR 2022-04-28 01:46:00 [facility] COVID-19 (ID NOW RAPID 2022-04-27 18:36:00 Viv Ventura [facility] TESTING) [facility] LAB ONLY COVID 2022-04-27 18:36:00 Viv Ventura [facility] INTERPRETATION [facility] CT ABDOMEN PELVIS W 2022-04-27 17:16:09 Viv Ventura [facility] ABORH CONFIRMATION (LAB 2022-04-27 16:40:00 Viv Ventura [facility] ONLY) Medical Branch URINALYSIS 2022-04-27 15:38:00 Viv Ventura [facility] LIPASE 2022-04-27 15:10:00 Viv Ventura [facility] MAGNESIUM 2022-04-27 15:10:00 Viv Ventura Savi [facility] TROPONIN I 2022-04-27 15:10:00 Viv Ventura [facility] COMP. METABOLIC PANEL 2022-04-27 15:10:00 Viv Ventura [facility] ([id number]) [facility] CBC WITH DIFF 2022-04-27 15:10:00 Viv Ventura [facility] PROTHROMBIN TIME / INR 2022-04-27 15:10:00 Viv Ventura [facility] ACTIVATED PARTIAL 2022-04-27 15:10:00 Viv [facility]ura [facility] & RHYTHM 2022-04-27 15:09:41 Viv [facility]ura [facility] 2022-04-27 15:09:00 Viv Ventura [facility] NOTICE OF PRIVACY 2022-04-27 14:49:32 Doctor Unamarialuisa, [facility] PRACTICES [facility] [place] [facility] [place] CONSENT/REFUSAL FOR 2022-04-27 14:49:05 Doctor Unassyessenia, [facility] DIAGNOSIS AND TREATMENT [place] [facility] Encounters Start End Encounter Admission Attending Care Care Encounter Source Date/Time Date/Time Type Type Clinicians Facility Department ID 2022-02-10 Outpatient [facility] [id number] MS 11:33:08 ANA [id number] [facility] 2022-01-25 Outpatient [facility] [id number] MS 15:47:07 ANA [id number] [facility] 2022-08-24 2022-08-24 Emergency X CRICKET MSPAYAM ERT [id number] Univers 14:07:00 19:15:00 ELLI [facility] 2022-08-24 2022-08-24 Emergency Cricket [facility] [id number] Univers 14:07:00 19:15:00 Elli INFANTE 350.1.13.10 i ty [facility] 4.2.7.2.686 [facility] [id number] [facility] 084 Branch 2022-07-02 2022-07-03 Emergency X [facility] ERT [id number] Univers 21:53:00 00:19:00 JUSTIN ity [facility] 2022-07-02 2022-07-03 Emergency [facility] [id number] Univers 21:53:00 00:19:00 Justin INFANTE 350.1.13.10 i ty of [facility] 4.2.7.2.686 [facility] [id number] [facility] 084 Branch 2022-07-02 2022-07-02 Orders Doctor JESSEE 1.2.840.114 [id number] Univers 00:00:00 00:00:00 Only Unassigned, NATE 350.1.13.10 ity of [place] [facility] 4.2.7.2.686 Kartik as [id number] [facility] 009 Branch 2022-05-11 2022-05-[address] [facility] [id number] Univers 13:03:00 14:23:00 RAYRAY [facility] 2022-05-11 2022-05-17 Emergency Romie Lewis [facility] 1.2.840. 114 [id number] Univers 13:03:00 14:23:00 Jaci Estrella 350.1.13.10 ity of [place] GamezJULIO 4.2.7.2.686 [facility] [id number] [facility] 081 Branch 2022-05-13 2022-05-13 [facility] [id number] Univers 10:30:00 11:10:00 Marybel INFANTE 350.1.13.10 i ty of [facility] 4.2.7.2.686 [facility] SURGICAL [id number] [facility] 020 Branch 2022-05-09 2022-05-09 Emergency X [facility] ERT [id number] Univers 20:46:00 23:50:00 [facility] 2022-05-09 2022-05-09 Emergency Yarica, [facility] [id number] Univers 20:46:00 23:50:00 Rudolphrebecca Christiano INFANTE 350.1.13.10 ity of [place] 4.2.7.2.686 [facility] [id number] [facility] 084 Branch 2022-05-02 2022-05-02 Transition STEF Cochran 1.2.840.114 [id number] Univers 00:00:00 00:00:00 of Care Lana VILLANUEVA 350.1.13.10 ity of [place] 4.2.7.2.686 [facility] [id number] [facility] 403 Branch 2022-04-27 2022-04-29 Inpatient X CORDELL [facility] AV [id number] Univers 09:54:00 13:15:00 DARRYN ity [facility] 2022-04-27 2022-04-29 [facility] Audrey Viv Savi [facility] 1.2.840.1 [id number] Univers 09:54:00 13:15:00 Encounter DylanJaci 350.1.13.10 ity of [facility] 4.2.7.2.686 [facility] [id number] [place] [id number] Branch 2022-01-31 2022-01-31 Outpatient COH COH PIJFJJK QTO COH 00:00:00 00:00:00 -[id number] 2022-01-30 2022-01-30 Emergency E KRYS [facility] [id number] Memoria 18:36:00 22:28:00 JOHN Lyons l 2022-01-29 2022-01-30 Emergency E MARIAELENA DANG [facility] [address] 21:25:00 00:58:00 GREGORIO Lyons l 2022-01-28 2022-01-28 Emergency E MARIAELENA DANG [facility] [address] 11:02:00 14:55:00 GREGORIO Lyons l 2022-01-24 2022-01-27 Inpatient E AZAEL DANG [facility] [address] 23:12:00 15:10:00 OBIORA l Kaleb manuel 2022-01-25 2022-01-25 Outpatient [facility] [id number] UT 18:30:00 18:30:00 Health 2022-01-25 2022-01-25 Outpatient [facility] PIJFJJK QTO [facility] 00:00:00 00:00:00 [id number] 1 Results Test Description Test Time Test Comments Results Result Comments Source COMP. METABOLIC PANEL (40564) 2022-08-24 22:30:45 Test Item Value Reference Range Interpretation Comme nts NA (test code = 8066148649) 137 mmol/L 135-145 K (test code = 8633815677) 4.1 mmol/L 3.5-5.0 CL (test code = 1517457487) 105 mmol/L 98-108 CO2 TOTAL (test code = 26 mmol/L 23-31 0635687495) AGAP (test code = 1853751349) 2-16 BUN (test code = 1987760818) 10 mg/dL 7-23 GLUCOSE (test code = 1612779859) 95 mg/dL 70-110 CREATININE (test code = 0.93 mg/dL 0.60-1.25 1668348586) TOTAL BILI (test code = 0.5 mg/dL 0.1-1.0 7597993207) CALCIUM (test code = 6416302418) 8.8 mg/dL 8.6-10.6 T PROTEIN (test code = 7.1 g/dL 6.3-8.2 4116689498) ALBUMIN (test code = 0402750961) 4.0 g/dL 3.5-5.0 ALK PHOS (test code = 3358252522) 80 U/L 34-122 ALTv (test code = 1742-6) 19 U/L 5-50 AST(SGOT) (test code = 25 U/L 13-40 4968345201) eGFR (test code = 8349484932) mL/min/1.73m2 ROBERTO (test code = ROBERTO) Association [...] in imaging tests). [facility] WITH [id number] 22:14:06 Test Item Value Reference Range Interpretation Comments WBC (test code = See_Comment [Automated 4290-2) message] The sy stem which generated this result transmitted reference range : 4.20 - 10.70 10*3/?L. The reference range was not used to interpret this result as normal/abnormal . RBC (test code = See_Comment H [Automated 059-8) message] The sy stem which generated this [...] (test code = 54.9 fL 38.5-51.6 H 20218-4) RDW-CV (test code = 21.0 % 12.1-15.4 H 788-0) PLT (test code = See_Comment H [Automated 777-3) message] The sy stem which generated this result transmitted reference range : 150 - 328 10*3/ ?L. The reference r carlota was not used to interpret this result as normal/abnormal . MPV (test code = 10.1 fL 9.8-13.0 88412-1) NRBC/100 WBC (test See_Comment [Automat ed code = 0408763814) message] The system which generated this result transmitted reference range : 0.0 - 10.0 /100 WBCs. The refer ence range was not u sed to interpret th is result as normal/abnormal . NRBC x10^3 (test code See_Comment [Auto mated = 3796777949) message] The s ystem which generated this result transmitted reference range : 10*3/?L. The reference range was not used to interpret this result as normal/abnormal . GRAN MAT (NEUT) % 52.4 % (test code = 770-8) IMM GRAN % (test code 0.30 % = 5491413894) LYMPH % (test code = 23.7 % 736-9) MONO % (test code = 15.7 % 5905-5) EOS % (test code = 6.3 % 713-8) BASO % (test code = 1.6 % 706-2) GRAN MAT x10^3(ANC) 3.94 10*3/uL 1.99-6.95 (test code = 4153508086) IMM GRAN x10^3 (test 0.00-0.06 code = 9354912990) LYMPH x10^3 (test code 1.78 10*3/uL 1.09-3.23 = 731-0) MONO x10^3 (test code 1.18 10*3/uL 0.36-1.02 H = 742-7) EOS x10^3 (test code = 0.47 10*3/uL 0.06-0.53 711-2) BASO x10^3 (test code 0.12 10*3/uL 0.01-0.09 H = 704-7) Lab Interpretation Abnormal (test code = 29499-6) [facility] Whole [id number] 21:51:41 Test Item Value Reference Range Interpretation Comments LACTIC ACID (test code = 1.02 mmol/L 0.50-2.20 1333966251) Lab Interpretation (test code = Normal 46493-4) [facility]. METABOLIC PANEL (19241)2022-07-03 05:30:27 Test Item Value Reference Range Interpretation Comments NA (test code = 140 mmol/L 135-145 0237503271) K (test code = 4.2 mmol/L 3.5-5.0 9371820385) CL (test code = 105 mmol/L 98-108 3963280519) CO2 TOTAL (test code 30 mmol/L 23-31 = 9021001651) AGAP (test code = 2-16 9490606460) BUN (test code = 13 mg/dL 7-23 7901244672) GLUCOSE (test code = 92 mg/dL 70-110 3943196428) CREATININE (test code 0.89 mg/dL 0.60-1.25 = 0544603450) TOTAL BILI (test code 0.4 mg/dL 0.1-1.1 = 4316352722) CALCIUM (test code = 9.2 mg/dL 8.6-10.6 8423123218) T PROTEIN (test code 7.2 g/dL 6.3-8.2 = 2982348565) ALBUMIN (test code = 4.3 g/dL 3.5-5.0 1856450003) ALK PHOS (test code = 62 U/L 34-122 0771005292) ALTv (test code = 19 U/L 5-50 1742-6) AST(SGOT) (test code 32 U/L 13-40 = 1564058405) eGFR (test code = mL/min/1.73m2 7985216170) ROBERTO (test code = ROBERTO) Association of [...] in imaging tests). [facility] WITH [id number] 04:54:46 Test Item Value Reference Range Interpretation Comments WBC (test code = See_Comment [Automated 9195-2) message] The sy stem which generated this result transmitted reference range : 4.20 - 10.70 10*3/?L. The reference range was not used to interpret this result as normal/abnormal . RBC (test code = See_Comment [Automated 252-8) message] The sy stem which generated this [...] RDW-SD (test code = 47.4 fL 38.5-51.6 72656-7) RDW-CV (test code = 18.8 % 12.1-15.4 H 788-0) PLT (test code = See_Comment H [Automated 777-3) message] The sy stem which generated this result transmitted reference range : 150 - 328 10*3/ ?L. The reference r carlota was not used to interpret this result as normal/abnormal . MPV (test code = 9.9 fL 9.8-13.0 39540-7) NRBC/100 WBC (test See_Comment [Automat ed code = 8779688220) message] The system which generated this result transmitted reference range : 0.0 - 10.0 /100 WBCs. The refer ence range was not u sed to interpret th is result as normal/abnormal . NRBC x10^3 (test code See_Comment [Auto mated = 7125920590) message] The s ystem which generated this result transmitted reference range : 10*3/?L. The reference range was not used to interpret this result as normal/abnormal . GRAN MAT (NEUT) % 52.0 % (test code = 770-8) IMM GRAN % (test code 0.30 % = 5482400106) LYMPH % (test code = 28.1 % 736-9) MONO % (test code = 16.8 % 5905-5) EOS % (test code = 1.6 % 713-8) BASO % (test code = 1.2 % 706-2) GRAN MAT x10^3(ANC) 3.91 10*3/uL 1.99-6.95 (test code = 4288358352) IMM GRAN x10^3 (test 0.00-0.06 code = 9120954237) LYMPH x10^3 (test code 2.11 10*3/uL 1.09-3.23 = 731-0) MONO x10^3 (test code 1.26 10*3/uL 0.36-1.02 H = 742-7) EOS x10^3 (test code = 0.12 10*3/uL 0.06-0.53 711-2) BASO x10^3 (test code 0.09 10*3/uL 0.01-0.09 = 704-7) Lab Interpretation Abnormal (test code = 69817-4) [facility] [id number] 15:55:55 Test Item Value Reference Range Interpretation Comments Case Report (test code Surgical Pathology ? ? = 6469623879) ?Case: [id number] ? Authorizing Provider: ?Marybel Sexton MD ? ? ? Collected: ? 05/13/2022 1129 ?Ordering Location: ? ? [facility] ? ? ?Received: ?05/13/2022 1621 ? [facility] Center ?Pathologist: ? Coleen Rosario MD ? Specimens: ? A) - LARGE INTESTINE, LEFT-DESCENDING COLON, random biopsies ? B) - LARGE INTESTINE, SIGMOID COLON, random biopsies ? C) - RECTUM, Random biopsies ? Final Diagnosis (test a4kvpJGaLQJbp9grDPNikZ code = 7752842003) FuZzEwMzNcZnRuYmpcdWMx IHtccnRmMVxlcGljMTAxMD IrIB2ptUaslIs4aHbxPJFg thI2wQXtOVojp4qdUXO2n3 ctdtkhTDTdUYwoIh3amEBg nBiyFuCbRPPmHSg7zZ97UY MkiS7jsCReCIx3SOJajDHu qbMtGgIlUGOkdQIcuGY9MO BcSL5lalfvSXqqEWhaCKKk glT8FMMdbVQdK2ChGJXxLY 5pzsyxMVZ9JAkeVBRpSFT2 YxVpNLHov9Jmnto3GbSaeQ FyZFxwbGFpblxmczIwXHBh zanvqKX8GHqspQ93PHNqxQ qmMKKfKQQhGDNKJS3BNRBQ ZNMARPBQW1XMDqRZKvkmBN JQUaAYEHGZYG4QH3n5IOcn QNWmwQrnQIAaBOafvQ3iEU VjBLGvOWLELU6TCJDfNFJN J8MXWRkRUCgfKHuRLDKnFG GFJYCUGMBIIdteU0XGGOAg OMEKU5HNUtivWD8BElKZY3 OCYDrWIVQSE1VHGJNXXGSY VElDXHBhciAgICAgICAgSU 3QOYeRThGQWKWHMjSSTE7M EaJnYJOXDSDFFEhxLN6MLL UXKOKBREREA0lWLGNINBTR DOfdUArQGR2QIErQGckcO6 6CW0zWWEPWXPJCGRWHNRvz YXIgICAgICAgIFNFVkVSRU xZIEFDVElWRSBDSFJPTklD IENPTElUSVNccGFyICAgIC 2fNn5sH9YCShDKM58NRE5M VSKPP9BFAKTDOGFGOPYKJI lGSUVEIFxwYXJccGFyXGxp APBgLCJqOXK1ALotwW13OR XfEt2zG79JY51yYYQVR92W HRKmQDZPQtZVXXSFSZ3BV0 m6CJvfMNFqiUlbCVScWEea vB1uCAXzIT7oA77NS06NCh YVVJHKB8UxH7oVXHHIUNCC AjzaH2EVGYEVNKtJOMEUKy lQVCBBQlNDRVNTLCBJTkNS RUFTRUQgTFlNUEhPUExBU0 7IK2mETBEaeKRdFHRaSZDd XL8JWXlIItARXCGKFuFPJR 0CTmKgGOBRVFFFTHzuFZ7O ZXKUHSODHDDWJ1oEXDNMVI KZNHwxTHcETL5ZPUpIZnbf Q6TYCCHnOJHKSXNXNTYmpB JpMPKpTJCtL40PR4pNDECV VCBXSVRIIFNFVkVSRUxZIE FDVElWRSBDSFJPTklDIENP VOrPGZNitMCqMYCyKL4sJf 7lE2RRSjROO44CUQ0ULWTS Z9RFHBGXKYRAONYBMSgXPD VEIFxwYXJccGFyXGxpNDUw VRWoJAJ7DTkyzP66MVDzVi 4iUhVQJNDFKGXPNT9RN71h QklPUFNZOiBccGFyXGxpMF xmaTBcbGluMCAgICAtIENP HO4HMPRxYIPGQ8BJIIcOMN ggVUxDRVIsIENSWVBUSVRJ NdydJ5JLKMZyXTMZQ9EUDf raKV4EXzAXH5VSMOaDHWCK H8DEYHZXOXVVWPnZCCKcks AgICAgIElORklMVFJBVEUg QD8jWTRUDE0ITJWRY0ZMFO EsIEFORCBDUllQVCBBUkNI NURCC3DWKmFZVITXW9MOLv YBC86cDBAPZQEDTLLOX5Lb D5KJTRcpJNPiVQBaOTWFS7 3OEVGGZY0PTTaTKKwuS5UZ RVJFTFkgQUNUSVZFIENIUk 5DCSFtUULXH0BPDJpTAWMi mhUqNRVvGW4VDMsMXF1QOB 9NQSBPUiBEWVNQTEFTSUEg SURFTlRJRklFRCBccGFyXH YpasmjtdCoEMflBjj1JACw KThwUU1eMILKAXJwAM2rVB 0fGKUyHCr3TTnaWW9brIJx UKXlcpTwScHqRAtpYEK2q2 xydGYxXHNzdGVjZjIyMDAw JRVtg0ygEZXykVRcViVlGf NcZnRuYmpcdWMxXGRlZmYw y9yps630iYXry0ztEUNbZa M8wWOsVVGizHxdtos6wDay ZlSdIHRet0yoexHcUyYcPM ZaYVIiHDMjsDYnV601TLVs PVvvc0shr0YmUBUalSIjp4 U3COWMZHadUwOrD403n8on b4wzwxCsrOP4VLCySXH6UH mkkwZnbqE6LRiupKSqBpQ9 IDtccmVkMFxncmVlbjBcYm y0BLOgK837FUO5uRgiv2ik DCW5KFLeHGIaBdecDx8izP LuO778BZEkPVKFTGAvaBy5 IGUpnzYzcnWsfWGRr192F6 10e5miFTKmgrXfuCiYcsao a8viC487MMHgmBKlxgAiBu TlAOLlyLDleIR6LVBjAD0o hyyeQLioPAxlOGFxnkI9TU IcjTFbN0TsPCUkBK2fzxdw RMG7ORyhLOIsJHW1ReOkZD Hia0Kxmyj7OzZlef5wey31 QTK4e9PgcRhyTXL8NEZ0Nl LtNm1ecDEuXQJvSP5qAzCr fOTpBVQvxi68vPlbRFbdls HgaQ1nOhUkVQYfaVLpZWSx ZJ4sgRWvPUMlsM4jtceiAO BnYnJkcmhlYWRccGdicmRy Tu2bhNpwLYX8JDcjQ5ygjE 8gIwI0NYnpX4qtxW4nQZt4 PDrteWF3ANDkpP1eGM2pui thx8iiXQcjEDuwHLOpzjB0 puH2YORarGQpK2JhtR8oRW QeQF8rjinyu3phUGB5PQfx ODFyQMZ9MaGcJZFeb4Gymo b4DnRsh9MsxMYxJIxhX31v b258JOOzrpKoQ0qhyFFzad gtiXIxktrmUCttugI1TNMh XHBsYWluXGYxXGZzMjBcbG FuZzEwMzNcaGljaFxmMVxk RqGdDINyWFreS2tgXvXzV9 YyXGZzMjBccGFyIEkgaGF2 VUUuTSWkr44kzZf0RXHaoj phw6CdCNDvnIAkdDKdnW4l xbQqz0kvIZYqUGKrOTZdJ6 JrQHF5cQAyULMijEJpcVR3 DR7yyaXoKP9mZGYhWtfpyg VfrKTuinYpTROfUQiyg1ig RN8zRJVgbKwovC3ixQL3PY Qex9iaaSGhlHUif0qao9Ce bmFtZShzKSBtYXkgYXBwZW YnMM7xJUGnzAVahqWia5V0 BvuzqJPjrgxvNsiunoZ3YA vrancjPFKiNQmqH8asQyZy LAXakKmpMekps6MnLDBdGU ZzMjhccGFyfX0= Final Diagnosis Comment j3lnsQXwNTZjiXNjXEZyR4 (test code = fzpqJsOQHcfKOzT5Npzrcr 7563226821) HZixCD7oFJ0cuVptrZGprI GdCOZfHvSlc5pes131jSLs d1kqUNTHtvvzzBc6vEedL7 3gz3I3FnayW49jxSYvEYF5 CHCuOWYoqAKpTCYgNRI7DH OsmQNkR8rqUGQhIR9sokau VVumVIckDQPncWB8SLRcaQ VxS0KfBQEqDBbzTHXjmbx0 LwJeIe8uyGDziYaiQAndNH JkXHBsYWluXGZzMjAgRHIu FXOqgPXeRKHgpaF2nUD1VF ZaaZffITPhl3HbTL4pWBQg fsS3evAjy5t4eDV4kBIaBA isE97zi6wdKzJdNNOzof1= Clinical Information colitis (test code = 8173420222) Gross Description (test g7gezBEoVDXfcYKBNFCtZX code = 9769852861) HeVR0thNsjoDb6sFisOTUl hiU1zUUlKQzkl9pgIRV9n2 llbiANClxkZWZmMVxwYXBl rbxrRhT3TMwfXHPqwmjgCC z1KJwnLZErhBO7NSCniMRr J9VxQXSqCL4ilcf9VKT4GF wgFBRaNxG3VCKgPfJmDllc EBs8KCRrybI1Kym3HQQfKK AybUWmm6X4EXzxfuygMYIe xIXsG973RYpms3KvaVZpIS pccGFyZCANCntcKlxlcGlj l8HivVPxSZweLHQwYWVrOM zcbotlJJo9YGWxMBezgVDe OD1pbNgjLehhkMzul7PutF BcXGlkIDUxMDAyIFxcZGIg QS2QWdRjUPI0ZWcvCxqkYS x0XGu3DL4DFbPhIYGkAXPu OmG5HWKnYPp6HWzxMX4IIM D9IFC5CWW4TFBcHSGzMogl KVr0MFQmZFscVHChbEEhDR faOtQcBXRwFJutiIFvNK4u fVxwbGFpblxmczIwIFNQRU HBQUMUDLOmmRTgAW0PTYJv QXnvRLDfpDPEKFG7LH3fIE ANClxsdHJwYXJcbGluMFxy nL1lJL6ENXs3quXnJOSaOs OrH8UtL7yqJC3yELCbacPx RUEcfURwKBOvxbFwe3UtRA xgylQgLJUvdTjqBES5nRMl JOHbZGHqGHQqJB91CSxVNQ MgbmFtZSwgVUggbnVtYmVy IGBgIGxhcmdlIGludGVzdG xoDCpayPZpxSZuLHTyKX8r dR7hQOGvAU9qb48kAivukR UrANGcC8Z2WLtIAUWmdhYh O67as3fhbTYvw9WzpZEliA lwbGUgdGFuLXBpbmsgaXJy KCv7nIJbLADwMtFetEhtg3 YhUWKoNLltAG60kkPdCE2e LTAuMyBjbSBncmVhdGVzdC QopM4vilHfi41nDEVjNKE3 DOAaTNS9RBItLKWuoUSfwq FrT9fcCFpwjPGyEaPGzUQz l6JaA8trLX7uxWXqHpdnmI QnEXWozEehd0RwcWPcDZCu q9GlwZPcIHncVA3jXZM3Pj 3bzRLvWOGwoiC9q1AfUQhv ZBSdGafqiJ2jCUahnE2tUQ 1XUNWuoODOOSI9MR5oMYf9 WYcnDAJwW5IiU5ZzgnIgtF YiLBFqatPpo0heLDT2RHYt eNCoqFIkVqMtSwitQGC5GI DhBNivAG5Ps2wzDIRloVEw WEN1TLgxeSIbREEhXCQhZE euSyTkL0FYPPLjKzx0WrE8 BAFiUIs9KTtcX0JCSABeBR JgFgV1PCS3XwP4BVf4KUWX Uz9yUSG5ZTRfWkKaLEG0RB EzOSBcXHQgMiBcXGYgQXJp YWwgXFxmcyAxMCBcXGZsIF qabyF7VBRlQXqgHKOrJuBk B2TOX2dDEZ9lYjueKDZmXY fleQzfqZ0hHITyJ37ys6QJ r6YtDC2WKMg8hgPtwdqatA 9fCKPkbfRaFLikcUCnM5et GfTaAoLRlIQtwR8yxnVDEA yrNRWqN2LtxvFmJCxeJOQp lt6geLxaCYeqJaQkhDXaTT dpdGggdGhlIHBhdGllbnRc H7P8zdYxHJ1hQGGKNIQlqI 2kMDUdPHVcpUNfW1XejC07 VPC3hZ5sIFIdePjwq8riBC CawI2cMOFoTI0ey77iEtdf qAWuVUNwB6Z5QDpASRHqub PwK95vx0xgnZCib1AexCCj dGlwbGUgdGFuLXllbGxvdy BgcoWlD4UcHGAmn72buZD7 fPSseMXyDkEkC81lupDsAD urRoCfLC9wZZZbWVmwOTrl WXJ7YXD3WJBgmWRuy7uise whNV6hWPbrLX97EPxyGH8r BTItFTisGNVdW2AoP7D0IW elXNWcRWBlhULkyU3evcYw hjMxaUj4ABFqZET1dUKrfW spZXXkNotjgCQ6CIAwRwIf coFwr9HgtWj9gYNxKGyxCM DawS4xxS6lWsFiFGypejVd ZWrzacPtEXhbKKVkO84fl0 QWc2GgHMAcj4nlzOmia0Aj dGVuZFxwYXJccGFyZFxzbC 4hUxSrc5kwfXc2XInuktK0 XKLhbd4vkQvgdI0aIMf4VF bxHYYsO0FbR8LyHPloMWG8 MTAwMiBcXGRiICBPVlIgIi ToRLS1SHE8GlM8VTc6VPQO EhRePhGhIaWjAOA5QkimHH p2QRr0WYuIEyDaYnS5XRQ7 MGUrGVJ8RKK1SGipdOTkPQ xcZiBBcmlhbCBcXGZzIDEw DOupYremLNikP46cnXuekT 1sIoXxIKJQHOLGXL5ROkOR XHBhciANClxwbGFpblxlcG ljTmVzdERvYzEgDQpcbHRy cGFyXGxpbjBccmluMCANCl xsdHJjaFxmczIyIFNwZWNp wKJlIFCvdSDbgtUzCGa2DK YioX0dYa2liIDnkU4slKLf FYgyWYXen7r1uWH6xOAciU K9qYJasPvgFzUvGI2vpGZw KOWNQF85nMRczhVfKEAiXQ K0nR8jQLKukrHfcIRcqF1u f7ege9cuGjZzC5W2RNRkIV Zxn72nwUN0vhNdEoH1KPHt rlUedhEhN4HeXTOvh44vwY X5hGKxfXIrUfQjE91rcnXg IVbkGeZxTX5dDNCzPUpjEX cjXYL8ETY9GUBypLVmn4yp xmicHC00DUzvLM2fWEzoNO 2tFMYkWRqrOWVpF4VzY1Z3 XGlxLBIlOWNhrGYelG1dmt QktjKqlBz2OMPeHXF3vTLs pCnoOVMoRalzrUK7KEBbDa DjlfJym0ZriRo9sDDlOEln UUEkqN0mfH4gIkBbSGyiji UgXGxpbmUgSnVsaWUgTWNJ nUrfcsT1RAYPBAIoZMCJOA kNClxlcGljTmVzdERvYzBc leV9NYPmzLNoMJZ9OR7sAV ZlegwfFDOrUFDhVLW2HBsb wI68xOUnUQEhXUFfgIQqeV pxwBCoesDXZjjcvG8uBjOz f2zlkDx2ZJUMAmsbyBJmjn vnwrN8BIPan7tcwOfrx8Mm kHKlXR7gtLebxY8kEqJpOz ANCn0= Disclaimer (test code = w0mtbYLrGZQrd5vlQJVmjI [id number]) FuZzEwMzNcZnRuYmpcdWMx HPhhuaEeRHacz2WaL1VqKd AwMFxhbnNpXGRlZmxhbmcx ZGRdQFF1fhOlYUOgTPtgCY KwRMnwRc0qcNBrfXjdRlRc JMWxj2wieeXZZRuhFzMaY1 89TNMiQFmch7zrd3BiPQYa mLBfj3Y2AJBGvjuimJn8kP gzE30rh0K4OcjfK9dbMZWp DHYlJ9KcXZ5iGEEmRbd4WI D9OZF5INEhZBKrY1MxQT3s BRWycFKhZZc8e5awdVtoGP BlEZS8p9hzCQicrqHyNK3e is1qqCv4j8hzdtPwLTXdNE HxkZGGEWVoB4BvoWxbNc4d cRy6lTygXswxLRZ4Lbq3KY 1txt41wjh3oUioRJDqtluj QsF7AUiqSPGqzcfiRDe5SN yvQEYhkLD0RYDzpMJeF0Mp IZBhAG5ghzl7LKV0XQyyBV XzUgO5LAFkrFFcXMQlrKus GOfzd366JEL9PyOsIV7yV7 Cju1Q8eQ4xvZYyOAHmnWFw IzSlUBXebz7jxJDpNYala2 WiFLY1erU4wUBgnSMoPDMx CL57Tmsii6UiVtfyg1RnI0 0biII3SJzra8ggCN9qMwE7 jmQdDJupc8yvjL9mRlN6ME kwUX8hTE2uEPUitA3rfajp XHBnYnJkcmhlYWRccGdicm HyVw4mvLgtPNG6WOnaI2tv uJ1qCwV0ZMklJ0xjzS4nQR p8APmucZD4JKCbuV3nHK1a lzumn9teLYapZRnzCKIpnn P8lzV6JOInlWKoH8PgvS1b GMJeAR8nvzhug6oqSSF0QY nvDWLrQLE3QjIbHVZqw7Ok uhf4EjLki4SozWYfHTcxU6 5bx745JSVgujRyR4lyoYPn seisrPWmkjzaZLgwyjM0TM HzehXya4PiZEAsVIO1WHes VDwmeLJbYUPokIlhj5fhV1 RscGFyXHBsYWluXGYxXGZz MjBcbGFuZzEwMzNcaGljaF wsACudSmHpUAIlTVmeN1kp WbReP9NhMADjXsIovDTrL6 ggVGhpcyByZXBvcnQgbWF5 ODsdK8f3TZXpzaPlgId1bf JiRuSmDCYoNRR1YKakjCHt XZXyd0XyfwvekDNoLn2gaK XqYWWtdQ4fONEfIEShVGnw DU8prEv8TSFUvNNrgFWjCv MPKIEsWD62apIaJRIVboza p4I1ZNxiPKPfv2RrzDZzK5 wsj2PdQFYjm94mQV0ok4R8 e7uuAUN0OP9co9QcQCAzrH CrgBDbCHMoe8Niqyhfq8Ks LJSiarJxj5RtFQDexgZtsF RpSINiheAksn9qrpJzICFk IDLkU2IuqdvuqEwkkeVaBO Hkta1otcMbXCB8MLYOKYXg ZSCdi4XrtX4riYSFBUQ1xA Dwjh6ybkDQpBHsUPMjzv46 IMNxPE6oE8whCKAvUHRzks XyrJOoa0XbGJOzlPW3wXPx CD2IAmEXo17yZPRbUWBLua VeLHYvaLaonFC1zxT3lL8q IChGREEpLlx+IFRoZSBGRE HjVJ4gorBzb9AtrjJhpKao GZHieBAvg2UmvSXpv6PnwM sxt7PubRDzgIJqDX7xAUEe clxwYXIgVVRNQiBMYWJvcm M5l6OvJOKoWECaNEB8rWbu cmx7KWDphK7yMFPhT3gyub waUVboTWFiz3LooY0hhMDP kFCcg6UnrLHrpUNVwHUfKZ 2uyzJzLMqAIEzFHUH3laCa NZSul4KcWOsfZ5nvK10nzY ufsBc3cAX2WEW1wU3sYek+ IFxwYXJccGFyIEFwcHJvcH TxTBSfrUcjhdDeU1ZtoyGe vG8bzBAqknMrSC9rZW9eN4 P2oGVeZPCiuyOzt3haNPym dmUgYmVlbiByZXZpZXdlZC Xpt8BbGHdcSXK5TCkwpfAx bmNsdWRpbmcgSCZFLCBTcG MzdOYoENR8KJcbjbOclfRl PN0qdP4wdJxukY5gtPYaoK X9xgcnPNIuRZFyjFrmGQHk ON2nhQUaVPHycpJKsSxuqF CxcK4zN9XhBXHeWXJyzh8x RRLomH1hNUvyl5UcpdsmEK ZzPTMnEXFrrlUqgz4sAJUc tPTQWJ2JLVjxdOTtp9Dcjt QkY4rZEJI3DVXoVdOwXcfo BSEshZKnqAOlZUVdkp17NT UkgC8gcCanDVKteI6wjZ5f mTqyyS0vGcOxMcOpWMbuSG 7kQRVgZ3wwqQFfVKYlNYGh K7agQtRitP5erHndHXdqNu YyLwVcCYngNZK9eY== Embedded Images (test code = 2524890920) [facility] Culture - Peripheral # [id number] 20:01:59 Test Item Value Reference Range Interpretation Comments Blood Culture-Aerobic No organisms No growth Previo us (test code = 74425-9) isolated prelim inary verified result was Culture [...] Culture-Anaerobic isolated preliminar y (test code = 60125-1) verifi ed result was Culture In Progress [...] CDT Lab Interpretation Normal (test code = 89798-2) [facility] Culture - Peripheral # [id number] 20:01:59 Test Item Value Reference Range Interpretation Comments Blood Culture-Aerobic No organisms No growth Previo us (test code = 60014-5) isolated prelim inary verified result was Culture [...] Culture-Anaerobic isolated preliminar y (test code = 80176-6) verifi ed result was Culture In Progress [...] CDT Lab Interpretation Normal (test code = 35598-7) [facility] Culture - Peripheral # [id number] 20:01:59 Test Item Value Reference Range Interpretation Comments Blood Culture-Aerobic No organisms No growth Previo us (test code = 52280-2) isolated prelim inary verified result was Culture [...] Culture-Anaerobic isolated preliminar y (test code = 60731-9) verifi ed result was Culture In Progress [...] CDT Lab Interpretation Normal (test code = 95443-7) [facility] Culture - Peripheral # [id number] 20:01:59 Test Item Value Reference Range Interpretation Comments Blood Culture-Aerobic No organisms No growth Previo us (test code = 47833-5) isolated prelim inary verified result was Culture [...] Culture-Anaerobic isolated preliminar y (test code = 24073-1) verifi ed result was Culture In Progress [...] CDT Lab Interpretation Normal (test code = 23583-5) [facility] AM-0500 Routine 2022-05-13 13:43:26 Test Item Value Reference Range Interpretation Comments ABO & RH (test code O Positive Performe d at [facility] = 20) Laboratory [facility] Bank[address] [place], [place] [address]Toll Free: [phone] A No. [id number] IAT (test code = Negative Performed a t [facility] 1185) Laboratory [facility] [place], [place] [address]Toll Free: [phone] A No. [id number] [facility] - [facility]OM[facility] AM-0500 Routine 2022-05-13 13:43:26 Test Item Value Reference Range Interpretation Comments ABO & RH (test code O Positive Performe d at [facility] = 20) Laboratory [facility] Blood Bank[address] [place], [place] [address]Toll Free: [phone] A No. [id number] IAT (test code = Negative Performed a t [facility] 1185) Laboratory [facility] Blood Bank[address] [place], [place] [address]Toll Free: [phone] A No. [id number] [facility] B12, [id number] 22:16:10 Test Item Value Reference Range Interpretation Comments VIT B12 (test code = 603 pg/mL 240-930 3157231068) ROBERTO (test code = ROBERTO) Biotin has been reported to cause a positive bias, interpret results relative to patient's use of biotin. Lab Interpretation (test Normal code = 50724-7) [facility] B12, [id number] 22:16:10 Test Item Value Reference Range Interpretation Comments VIT B12 (test code = 603 pg/mL 240-930 1712922045) ROBERTO (test code = ROBERTO) Biotin has been reported to cause a positive bias, interpret results relative to patient's use of biotin. Lab Interpretation (test Normal code = 28172-4) [facility] D, [id number] 21:50:29 Test Item Value Reference Range Interpretation Comments VIT D 25OH (test code = 25-80 L 31786-3) ROBERTO (test code = ROBERTO) Deficiency: <20 ng/mLInsufficiency: 20-24 ng/mLOptimal: 25-80 ng/mL Lab Interpretation (test Abnormal code = 91401-4) [facility], [id number] 21:50:29 Test Item Value Reference Range Interpretation Comments VIT D 25OH (test code = 25-80 L 01701-0) ROBERTO (test code = ROBERTO) Deficiency: <20 ng/mLInsufficiency: 20-24 ng/mLOptimal: 25-80 ng/mL Lab Interpretation (test Abnormal code = 79014-3) [facility]-REACT[facility] [id number] 18:56:01 Test Item Value Reference Range Interpretation Comments CRP (test code = 0.9 mg/dL See_Comment H [Automated message] [id number]) The system [employer] generated this result transmit eunice reference range : <=0.8. The refe rence range was not u sed to interpret th is result as normal/abnormal . Lab Interpretation (test Abnormal code = 27475-4) [facility] [id number] 18:56:01 Test Item Value Reference Range Interpretation Comments CRP (test code = 0.9 mg/dL See_Comment H [Automated message] [id number]) The system [employer] generated this result transmit eunice reference range : <=0.8. The refe rence range was not u sed to interpret th is result as normal/abnormal . Lab Interpretation (test Abnormal code = 34229-6) [facility]kin[facility]YROID STIMULATING [id number] 13:43:08 Test Item Value Reference Range Interpretation Comments TSH (test code = See_Comment H [Automated message] 3906351362) The system [employer] generated this result transmitted ref erence range: 0.45 - 4 .70 mIU/L. The refe rence range was not u sed to interpret this result as normal/abnor mal. Lab Interpretation (test Abnormal code = 45693-4) [facility]ID STIMULATING [id number] 13:43:08 Test Item Value Reference Range Interpretation Comments TSH (test code = See_Comment H [Automated message] 3736187662) The system [employer] generated this result transmitted ref erence range: 0.45 - 4 .70 mIU/L. The refe rence range was not u sed to interpret this result as normal/abnor mal. Lab Interpretation (test Abnormal code = 93946-1) [facility]kinN-TERMINAL [id number] 13:21:44 Test Item Value Reference Range Interpretation Comments NT-proBNP (test code 54 pg/mL See_Comment [Autom ated = 0217001334) message] The system which generated this result transmitted reference range : <=125. The reference range was not used to interpret this result as normal/abnormal . ROBERTO (test code = ROBERTO) Biotin has been reported to cause a negative bias, interpret results relative to patient's use of biotin. Lab Interpretation Normal (test code = 98960-5) [facility]-TERMINAL [id number] 13:21:44 Test Item Value Reference Range Interpretation Comments NT-proBNP (test code 54 pg/mL See_Comment [Autom ated = 7738455876) message] The system which generated this result transmitted reference range : <=125. The reference range was not used to interpret this result as normal/abnormal . ROBERTO (test code = ROBERTO) Biotin has been reported to cause a negative bias, interpret results relative to patient's use of biotin. Lab Interpretation Normal (test code = 45455-8) [facility]ufkinLIPID PANEL (01270)(TOTAL CHOLESTEROL, TRIGLYCERIDES, HDL)2022-05-12 13:12:48 Test Item Value Reference Range Interpretation Comments CHOL (test code = 124 mg/dL 120-200 8685229335) HDL (test code = 27 mg/dL See_Comment L [Automated message] 2163852973) The system [employer] generated this result transmit eunice reference range : >=40. The refer ence range was not u sed to interpret th is result as normal/abnormal . HDLC RATIO (test code = See_Comment [Au tomated message] 5138546915) The system [employer] generated this result transmit eunice reference range : <=5.0. The refe rence range was not u sed to interpret th is result as normal/abnormal . TRIG (test code = 104 mg/dL 30-170 7416427898) LDL CHOL (test code = 76 mg/dL See_Comment [Auto mated message] 20904-0) The system [employer] generated this result transmit eunice reference range : <=160. The refe rence range was not u sed to interpret th is result as normal/abnormal . VLDL (test code = 21 mg/dL 5-60 1296939786) Lab Interpretation (test Abnormal code = 50292-7) [facility]kin[facility]IP[facility] PAN[facility] (90729)(TOTAL CHOLESTEROL, TRIGLYCERIDES, HDL)2022-05-12 13:12:48 Test Item Value Reference Range Interpretation Comments CHOL (test code = 124 mg/dL 120-200 9952330386) HDL (test code = 27 mg/dL See_Comment L [Automated message] 9577212493) The system [employer] generated this result transmit eunice reference range : >=40. The refer ence range was not u sed to interpret th is result as normal/abnormal . HDLC RATIO (test code = See_Comment [Au tomated message] 7627029244) The system [employer] generated this result transmit eunice reference range : <=5.0. The refe rence range was not u sed to interpret th is result as normal/abnormal . TRIG (test code = 104 mg/dL 30-170 8733860926) LDL CHOL (test code = 76 mg/dL See_Comment [Auto mated message] 17921-3) The system [employer] generated this result transmit eunice reference range : <=160. The refe rence range was not u sed to interpret th is result as normal/abnormal . VLDL (test code = 21 mg/dL 5-60 5476568694) Lab Interpretation (test Abnormal code = 39371-7) [facility]kin[facility]NESIUM2022-10-06 13:12:47 Test Item Value Reference Range Interpretation Comments MAGNESIUM (test code = 0340796800) 1.8 mg/dL 1.7-2.4 Lab Interpretation (test code = Normal 88884-0) [facility]2022-10-06 13:12:47 Test Item Value Reference Range Interpretation Comments MAGNESIUM (test code = 5593356166) 1.8 mg/dL 1.7-2.4 Lab Interpretation (test code = Normal 39368-8) [facility]kinCOMP. METABOLIC PANEL (63855)2022-05-12 13:12:27 Test Item Value Reference Range Interpretation Comments NA (test code = 139 mmol/L 135-145 1283339160) K (test code = 3.5 mmol/L 3.5-5 6817039145) CL (test code = 106 mmol/L 98-108 0205700758) CO2 TOTAL (test code = 27 mmol/L 23-31 6111407661) AGAP (test code = 2-16 4975600404) BUN (test code = 7 mg/dL 7-23 1554279106) GLUCOSE (test code = 87 mg/dL 70-110 0340213092) CREATININE (test code = 0.89 mg/dL 0.6-1.25 4501227303) TOTAL BILI (test code = 0.3 mg/dL 0.1-1.7 5493421049) CALCIUM (test code = 8.4 mg/dL 8.6-10.6 L 2522995847) T PROTEIN (test code = 6.7 g/dL 6.3-8.2 0745328086) ALBUMIN (test code = 3.5 g/dL 3.5-5 0634878871) ALK PHOS (test code = 81 U/L 34-122 1670291019) ALTv (test code = 13 U/L 5-50 1742-6) AST(SGOT) (test code = 22 U/L 13-40 3217503783) eGFR (test code = mL/min/1.73m2 1743170199) ROBERTO (test code = ROBERTO) Association of [...] tests). Lab Interpretation Abnormal (test code = 13850-2) [facility]OSPHORUS2022-10-06 13:12:27 Test Item Value Reference Range Interpretation Comments PHOSPHORUS (test code = 6244483605) 3.8 mg/dL 2.5-5 Lab Interpretation (test code = Normal 90999-2) [facility]COMP. METABOLIC PANEL (34181)2022-05-12 13:12:27 Test Item Value Reference Range Interpretation Comments NA (test code = 139 mmol/L 135-145 5788823314) K (test code = 3.5 mmol/L 3.5-5 4381294276) CL (test code = 106 mmol/L 98-108 7178019899) CO2 TOTAL (test code = 27 mmol/L 23-31 7902581821) AGAP (test code = 2-16 9756661170) BUN (test code = 7 mg/dL 7-23 2198380034) GLUCOSE (test code = 87 mg/dL 70-110 7313031708) CREATININE (test code = 0.89 mg/dL 0.6-1.25 8868782101) TOTAL BILI (test code = 0.3 mg/dL 0.1-1.2 4543463622) CALCIUM (test code = 8.4 mg/dL 8.6-10.6 L 6096898782) T PROTEIN (test code = 6.7 g/dL 6.3-8.2 5085208036) ALBUMIN (test code = 3.5 g/dL 3.5-5 6748476644) ALK PHOS (test code = 81 U/L 34-122 7467413817) ALTv (test code = 13 U/L 5-50 1742-6) AST(SGOT) (test code = 22 U/L 13-40 1970930730) eGFR (test code = mL/min/1.73m2 7011618028) ROBERTO (test code = ROBERTO) Association of [...] tests). Lab Interpretation Abnormal (test code = 51891-0) [facility]OS[facility]2022-10-06 13:12:27 Test Item Value Reference Range Interpretation Comments PHOSPHORUS (test code = 2580429692) 3.8 mg/dL 2.5-5 Lab Interpretation (test code = Normal 05122-5) [facility] WITH [id number] 13:09:25 Test Item Value Reference Range Interpretation [...] RDW-SD (test code = 39.2 fL 38.5-51.6 07905-8) RDW-CV (test code = 14.7 % 12.1-15.4 788-0) PLT (test code = See_Comment H [Automated 777-3) message] The sy stem which generated this result transmitted reference range : 150 - 328 10*3/ ?L. The reference r carlota was not used to interpret this result as normal/abnormal . MPV (test code = 10.1 fL 9.8-13 06855-0) NRBC/100 WBC (test See_Comment [Automat ed code = 0709697493) message] The system which generated this result transmitted reference range : 0.0 - 10.0 /100 WBCs. The refer ence range was not u sed to interpret th is result as normal/abnormal . NRBC x10^3 (test code See_Comment [Auto mated = 6168770945) message] The s ystem which generated this result transmitted reference range : 10*3/?L. The reference range was not used to interpret this result as normal/abnormal . GRAN MAT (NEUT) % 46.1 % (test code = 770-8) IMM GRAN % (test code 0.10 % = 0465405100) LYMPH % (test code = 33.9 % 736-9) MONO % (test code = 11.8 % 5905-5) EOS % (test code = 6.3 % 713-8) BASO % (test code = 1.8 % 706-2) GRAN MAT x10^3(ANC) 3.27 10*3/uL 1.99-6.95 (test code = 9341399831) IMM GRAN x10^3 (test 0-0.06 code = 7700145463) LYMPH x10^3 (test code 2.41 10*3/uL 1.09-3.23 = 731-0) MONO x10^3 (test code 0.84 10*3/uL 0.36-1.02 = 742-7) EOS x10^3 (test code = 0.45 10*3/uL 0.06-0.53 711-2) BASO x10^3 (test code 0.13 10*3/uL 0.01-0.09 H = 704-7) Lab Interpretation Abnormal (test code = 88474-7) [facility] WITH [id number] 13:09:25 Test Item Value Reference Range Interpretation Comments WBC (test code = See_Comment [Automated 9990-2) message] The sy stem which generated this result transmitted reference range : 4.20 - 10.70 10*3/?L. The reference range was not used to interpret this result as normal/abnormal . RBC (test code = See_Comment L [Automated 539-8) message] The sy stem which [...] RDW-SD (test code = 39.2 fL 38.5-51.6 17355-3) RDW-CV (test code = 14.7 % 12.1-15.4 788-0) PLT (test code = See_Comment H [Automated 777-3) message] The sy stem which generated this result transmitted reference range : 150 - 328 10*3/ ?L. The reference r carlota was not used to interpret this result as normal/abnormal . MPV (test code = 10.1 fL 9.8-13 43816-3) NRBC/100 WBC (test See_Comment [Automat ed code = 7830481437) message] The system which generated this result transmitted reference range : 0.0 - 10.0 /100 WBCs. The refer ence range was not u sed to interpret th is result as normal/abnormal . NRBC x10^3 (test code See_Comment [Auto mated = 2791517183) message] The s ystem which generated this result transmitted reference range : 10*3/?L. The reference range was not used to interpret this result as normal/abnormal . GRAN MAT (NEUT) % 46.1 % (test code = 770-8) IMM GRAN % (test code 0.10 % = 7692503938) LYMPH % (test code = 33.9 % 736-9) MONO % (test code = 11.8 % 5905-5) EOS % (test code = 6.3 % 713-8) BASO % (test code = 1.8 % 706-2) GRAN MAT x10^3(ANC) 3.27 10*3/uL 1.99-6.95 (test code = 0003001696) IMM GRAN x10^3 (test 0-0.06 code = 5456531664) LYMPH x10^3 (test code 2.41 10*3/uL 1.09-3.23 = 731-0) MONO x10^3 (test code 0.84 10*3/uL 0.36-1.02 = 742-7) EOS x10^3 (test code = 0.45 10*3/uL 0.06-0.53 711-2) BASO x10^3 (test code 0.13 10*3/uL 0.01-0.09 H = 704-7) Lab Interpretation Abnormal (test code = 70568-1) [facility]thrombin Time / [id number] 13:06:44 Test Item Value Reference Range Interpretation Comments PROTIME PATIENT (test See_Comment H [Auto mated message] code = 5964-2) The system [employer] generated this result transmitted ref erence range: 12.0 - 1 4.7 Seconds. The reference range was not used to int erpret this result as normal/abnormal . INR (test code = 6301-6) Nor mal INR <1.1; Warfarin Therap eutic range 2.0 to 3. 0 or 2.5 to 3.5, dep ending upon the indica tions. Lab Interpretation (test Abnormal code = 89177-3) [facility]th[facility] Time / [id number] 13:06:44 Test Item Value Reference Range Interpretation Comments PROTIME PATIENT (test See_Comment H [Auto mated message] code = 5964-2) The system [employer] generated this result transmitted ref erence range: 12.0 - 1 4.7 Seconds. The reference range was not used to int erpret this result as normal/abnormal . INR (test code = 6301-6) Nor mal INR <1.1; Warfarin Therap eutic range 2.0 to 3. 0 or 2.5 to 3.5, dep ending upon the indica tions. Lab Interpretation (test Abnormal code = 51615-2) [facility] [id number] 02:59:10 Test Item Value Reference Range Interpretation Comments ESR (test code = See_Comment H [Automated message] 36692-9) The system [employer] generated this result transmitted ref erence range: 0 - 10 m m/HR. The reference r carlota was not used to interpret this result as normal/abnor mal. Lab Interpretation (test Abnormal code = 18070-1) [facility] [id number] 02:59:10 Test Item Value Reference Range Interpretation Comments ESR (test code = See_Comment H [Automated message] 98671-5) The system [employer] generated this result transmitted ref erence range: 0 - 10 m m/HR. The reference r carlota was not used to interpret this result as normal/abnor mal. Lab Interpretation (test Abnormal code = 31220-4) [facility]YCOSYLATED HEMOGLOBIN (A1C)2022-05-12 02:20:40 Test Item Value Reference Range Interpretation Comments HGB A1C (test code = 6.1 % 4-5.7 H 4548-4) ROBERTO (test code = ROBERTO) Reference RangesNormal: <5.7%Prediabetes: 5.7 - 6.4%Diabetes: > 6.5% Lab Interpretation (test Abnormal code = 44361-6) [facility]YCOSYL[facility] HEMOGLOBIN (A1C)2022-05-12 02:20:40 Test Item Value Reference Range Interpretation Comments HGB A1C (test code = 6.1 % 4-5.7 H 4548-4) ROBERTO (test code = ROBERTO) Reference RangesNormal: <5.7%Prediabetes: 5.7 - 6.4%Diabetes: > 6.5% Lab Interpretation (test Abnormal code = 33666-4) [facility]. METABOLIC PANEL (92887)2022-05-11 19:45:12 Test Item Value Reference Range Interpretation Comments NA (test code = 139 mmol/L 135-145 4577766370) K (test code = 4.1 mmol/L 3.5-5 0744281135) CL (test code = 105 mmol/L 98-108 3628253305) CO2 TOTAL (test code 24 mmol/L 23-31 = 7107398610) AGAP (test code = 2-16 0667438433) BUN (test code = 8 mg/dL 7-23 9656649251) GLUCOSE (test code = 84 mg/dL 70-110 1145189970) CREATININE (test code 0.93 mg/dL 0.6-1.25 = 2032798237) TOTAL BILI (test code 0.3 mg/dL 0.1-1.1 = 0519860967) CALCIUM (test code = 9.4 mg/dL 8.6-10.6 9211288406) T PROTEIN (test code 7.3 g/dL 6.3-8.2 = 2298644349) ALBUMIN (test code = 4.0 g/dL 3.5-5 2098863067) ALK PHOS (test code = 85 U/L 34-122 9668313247) ALTv (test code = 14 U/L 5-50 1742-6) AST(SGOT) (test code 21 U/L 13-40 = 8788419388) eGFR (test code = mL/min/1.73m2 2390814115) ROBERTO (test code = ROBERTO) Association of [...] or urine or abnormalities in imaging tests). [facility]. METABOLIC PANEL (14370)2022-05-11 19:45:12 Test Item Value Reference Range Interpretation Comments NA (test code = 139 mmol/L 135-145 9389722262) K (test code = 4.1 mmol/L 3.5-5 7056924288) CL (test code = 105 mmol/L 98-108 2955425263) CO2 TOTAL (test code 24 mmol/L 23-31 = 6012349094) AGAP (test code = 2-16 9094353266) BUN (test code = 8 mg/dL 7-23 9740003627) GLUCOSE (test code = 84 mg/dL 70-110 2605021592) CREATININE (test code 0.93 mg/dL 0.6-1.25 = 1130940470) TOTAL BILI (test code 0.3 mg/dL 0.1-1.1 = 4010463074) CALCIUM (test code = 9.4 mg/dL 8.6-10.6 8539202332) T PROTEIN (test code 7.3 g/dL 6.3-8.2 = 9729961229) ALBUMIN (test code = 4.0 g/dL 3.5-5 6376112886) ALK PHOS (test code = 85 U/L 34-122 2519195810) ALTv (test code = 14 U/L 5-50 1742-6) AST(SGOT) (test code 21 U/L 13-40 = 5242793845) eGFR (test code = mL/min/1.73m2 5425197933) ROBERTO (test code = ROBERTO) Association of [...] urine or abnormalities in imaging tests). [facility]IP[facility]2022-10-05 19:44:31 Test Item Value Reference Range Interpretation Comments LIPASE (test code = 6494026837) 116 U/L 0-220 Lab Interpretation (test code = Normal 81501-7) [facility]2022-10-05 19:44:31 Test Item Value Reference Range Interpretation Comments LIPASE (test code = 6072243473) 116 U/L 0-220 Lab Interpretation (test code = Normal 23181-5) [facility] WITH [id number] 19:33:50 Test Item Value Reference Range Interpretation [...] RDW-SD (test code = 38.9 fL 38.5-51.6 69823-8) RDW-CV (test code = 14.7 % 12.1-15.4 788-0) PLT (test code = See_Comment H [Automated 777-3) message] The sy stem which generated this result transmitted reference range : 150 - 328 10*3/ ?L. The reference r carlota was not used to interpret this result as normal/abnormal . MPV (test code = 10.1 fL 9.8-13 92660-7) NRBC/100 WBC (test See_Comment [Automat ed code = 5798713066) message] The system which generated this result transmitted reference range : 0.0 - 10.0 /100 WBCs. The refer ence range was not u sed to interpret th is result as normal/abnormal . NRBC x10^3 (test code See_Comment [Auto mated = 6795960142) message] The s ystem which generated this result transmitted reference range : 10*3/?L. The reference range was not used to interpret this result as normal/abnormal . GRAN MAT (NEUT) % 50.3 % (test code = 770-8) IMM GRAN % (test code 0.00 % = 5709064519) LYMPH % (test code = 28.7 % 736-9) MONO % (test code = 13.9 % 5905-5) EOS % (test code = 5.3 % 713-8) BASO % (test code = 1.8 % 706-2) GRAN MAT x10^3(ANC) 3.14 10*3/uL 1.99-6.95 (test code = 9240572873) IMM GRAN x10^3 (test 0-0.06 code = 2679261774) LYMPH x10^3 (test code 1.79 10*3/uL 1.09-3.23 = 731-0) MONO x10^3 (test code 0.87 10*3/uL 0.36-1.02 = 742-7) EOS x10^3 (test code = 0.33 10*3/uL 0.06-0.53 711-2) BASO x10^3 (test code 0.11 10*3/uL 0.01-0.09 H = 704-7) Lab Interpretation Abnormal (test code = 60044-9) [facility] WITH [id number] 19:33:50 Test Item Value Reference Range Interpretation [...] RDW-SD (test code = 38.9 fL 38.5-51.6 62156-9) RDW-CV (test code = 14.7 % 12.1-15.4 788-0) PLT (test code = See_Comment H [Automated 777-3) message] The sy stem which generated this result transmitted reference range : 150 - 328 10*3/ ?L. The reference r carlota was not used to interpret this result as normal/abnormal . MPV (test code = 10.1 fL 9.8-13 63868-3) NRBC/100 WBC (test See_Comment [Automat ed code = 5406467392) message] The system which generated this result transmitted reference range : 0.0 - 10.0 /100 WBCs. The refer ence range was not u sed to interpret th is result as normal/abnormal . NRBC x10^3 (test code See_Comment [Auto mated = 6774162307) message] The s ystem which generated this result transmitted reference range : 10*3/?L. The reference range was not used to interpret this result as normal/abnormal . GRAN MAT (NEUT) % 50.3 % (test code = 770-8) IMM GRAN % (test code 0.00 % = 9948575974) LYMPH % (test code = 28.7 % 736-9) MONO % (test code = 13.9 % 5905-5) EOS % (test code = 5.3 % 713-8) BASO % (test code = 1.8 % 706-2) GRAN MAT x10^3(ANC) 3.14 10*3/uL 1.99-6.95 (test code = 6497686833) IMM GRAN x10^3 (test 0-0.06 code = 9799058668) LYMPH x10^3 (test code 1.79 10*3/uL 1.09-3.23 = 731-0) MONO x10^3 (test code 0.87 10*3/uL 0.36-1.02 = 742-7) EOS x10^3 (test code = 0.33 10*3/uL 0.06-0.53 711-2) BASO x10^3 (test code 0.11 10*3/uL 0.01-0.09 H = 704-7) Lab Interpretation Abnormal (test code = 55194-7) [facility] - ONCE [id number] 03:41:38 Test Item Value Reference Range Interpretation Comments ABO & RH (test code O Positive Performe d at [facility] = 20) Laboratory Serv [facility] Blood [address] [place], [place] [id number] Free: [phone] A No. [id number] IAT (test code = Negative Performed a t [facility] 1185) Laboratory Serv [facility] Blood Bank[address] [place] [address]Mzfd Free: [phone] A No. [id number] [facility]COMP. METABOLIC PANEL (98255)2022-05-10 03:15:48 Test Item Value Reference Range Interpretation Comments NA (test code = 135 mmol/L 135-145 9930315882) K (test code = 4.2 mmol/L 3.5-5 9075720274) CL (test code = 104 mmol/L 98-108 1303443829) CO2 TOTAL (test code = 23 mmol/L 23-31 5017366228) AGAP (test code = 2-16 6061608292) BUN (test code = 9 mg/dL 7-23 1697192164) GLUCOSE (test code = 100 mg/dL 70-110 0516038237) CREATININE (test code = 0.89 mg/dL 0.6-1.25 5245993199) TOTAL BILI (test code = 0.3 mg/dL 0.1-1.8 1538704981) CALCIUM (test code = 8.5 mg/dL 8.6-10.6 L 5286450460) T PROTEIN (test code = 6.6 g/dL 6.3-8.2 1134122606) ALBUMIN (test code = 3.6 g/dL 3.5-5 4920872098) ALK PHOS (test code = 80 U/L 34-122 1874893500) ALTv (test code = 13 U/L 5-50 1742-6) AST(SGOT) (test code = 22 U/L 13-40 1126063993) eGFR (test code = mL/min/1.73m2 9317663084) ROBERTO (test code = ROBERTO) Association of [...] tests). Lab Interpretation Abnormal (test code = 83009-5) [facility]15:08 Test Item Value Reference Range Interpretation Comments LIPASE (test code = 1873316270) 105 U/L 0-220 Lab Interpretation (test code = Normal 87333-5) [facility] WITH [id number] 03:02:08 Test Item Value Reference Range Interpretation [...] (test code = 38.0 fL 38.5-51.6 L 24083-9) RDW-CV (test code = 14.9 % 12.1-15.4 788-0) PLT (test code = See_Comment H [Automated 777-3) message] The sy stem which generated this result transmitted reference range : 150 - 328 10*3/ ?L. The reference r carlota was not used to interpret this result as normal/abnormal . MPV (test code = 9.8 fL 9.8-13 81999-4) NRBC/100 WBC (test See_Comment [Automat ed code = 5582053280) message] The system which generated this result transmitted reference range : 0.0 - 10.0 /100 WBCs. The refer ence range was not u sed to interpret th is result as normal/abnormal . NRBC x10^3 (test code See_Comment [Auto mated = 1934452005) message] The s ystem which generated this result transmitted reference range : 10*3/?L. The reference range was not used to interpret this result as normal/abnormal . GRAN MAT (NEUT) % 51.8 % (test code = 770-8) IMM GRAN % (test code 0.40 % = 4097490486) LYMPH % (test code = 29.9 % 736-9) MONO % (test code = 10.2 % 5905-5) EOS % (test code = 5.8 % 713-8) BASO % (test code = 1.9 % 706-2) GRAN MAT x10^3(ANC) 4.17 10*3/uL 1.99-6.95 (test code = 3412722818) IMM GRAN x10^3 (test 0.03 10*3/uL 0-0.06 code = 5180232244) LYMPH x10^3 (test code 2.41 10*3/uL 1.09-3.23 = 731-0) MONO x10^3 (test code 0.82 10*3/uL 0.36-1.02 = 742-7) EOS x10^3 (test code = 0.47 10*3/uL 0.06-0.53 711-2) BASO x10^3 (test code 0.15 10*3/uL 0.01-0.09 H = 704-7) Lab Interpretation Abnormal (test code = 48955-4) [facility] [id number] 14:20:24 Test Item Value Reference Range Interpretation Comments CRP (test code = 1.3 mg/dL See_Comment H [Automated message] 3921972191) The system ic h generated this result transmit eunice reference range : <=0.8. The refe rence range was not u sed to interpret th is result as normal/abnormal . Lab Interpretation (test Abnormal code = 13819-2) [facility] METABOLIC PANEL (NA, K, CL, CO2, GLUCOSE, BUN, CREATININE, CA)2022-04-28 11:21:59 Test Item Value Reference Range Interpretation Comments NA (test code = 134 mmol/L 135-145 L 7143838960) K (test code = 3.9 mmol/L 3.5-5 1938846388) CL (test code = 105 mmol/L 98-108 5615272342) CO2 TOTAL (test code = 26 mmol/L 23-31 5545912136) AGAP (test code = 2-16 9383324320) BUN (test code = 5 mg/dL 7-23 L 2480973845) GLUCOSE (test code = 76 mg/dL 70-110 0340554670) CREATININE (test code = 0.88 mg/dL 0.6-1.25 7557777666) CALCIUM (test code = 8.2 mg/dL 8.6-10.6 L 8824820321) eGFR (test code = mL/min/1.73m2 9159030355) ROBERTO (test code = ROBERTO) Association of [...] tests). Lab Interpretation Abnormal (test code = 40040-0) [facility] WITH [id number] 11:21:23 Test Item Value Reference Range Interpretation [...] RDW-SD (test code = 40.4 fL 38.5-51.6 72045-4) RDW-CV (test code = 15.3 % 12.1-15.4 788-0) PLT (test code = See_Comment H [Automated 777-3) message] The sy stem which generated this result transmitted reference range : 150 - 328 10*3/ ?L. The reference r carlota was not used to interpret this result as normal/abnormal . MPV (test code = 9.8 fL 9.8-13 52701-4) NRBC/100 WBC (test See_Comment [Automat ed code = 5608250746) message] The system which generated this result transmitted reference range : 0.0 - 10.0 /100 WBCs. The refer ence range was not u sed to interpret th is result as normal/abnormal . NRBC x10^3 (test code See_Comment [Auto mated = 4123804577) message] The s ystem which generated this result transmitted reference range : 10*3/?L. The reference range was not used to interpret this result as normal/abnormal . GRAN MAT (NEUT) % 51.9 % (test code = 770-8) IMM GRAN % (test code 0.50 % = 3561664222) LYMPH % (test code = 25.7 % 736-9) MONO % (test code = 17.4 % 5905-5) EOS % (test code = 3.2 % 713-8) BASO % (test code = 1.3 % 706-2) GRAN MAT x10^3(ANC) 3.09 10*3/uL 1.99-6.95 (test code = 4623752477) IMM GRAN x10^3 (test 0.03 10*3/uL 0-0.06 code = 3538265674) LYMPH x10^3 (test code 1.53 10*3/uL 1.09-3.23 = 731-0) MONO x10^3 (test code 1.04 10*3/uL 0.36-1.02 H = 742-7) EOS x10^3 (test code = 0.19 10*3/uL 0.06-0.53 711-2) BASO x10^3 (test code 0.08 10*3/uL 0.01-0.09 = 704-7) Lab Interpretation Abnormal (test code = 64401-1) [facility]2022-[facility] 11:17:00 Test Item Value Reference Range Interpretation Comments MAGNESIUM (test code = 1259066234) 1.7 mg/dL 1.7-2.4 Lab Interpretation (test code = Normal 08929-4) [facility] Confirmation (Lab Only)2022-04-27 17:22:22 Test Item Value Reference Range Interpretation Comments ABO & RH (test code O Positive Performe d at [facility] = 20) Laboratory Serv [facility] Blood [facility] [address] [place] [address]Kqow Free: [phone] A No. [id number] [facility] and Screen - ONCE [id number] 16:14:13 Test Item Value Reference Range Interpretation Comments ABO & RH (test code O Positive Performe d at [facility] = 20) Laboratory Serv [facility] [address] [place] [address]Wbsm Free: [phone] A No. [id number] IAT (test code = Negative Performed a t [facility] 1185) Laboratory Serv [facility] [address] [place] [address]Apmx Free: [phone] A No. [id number] [facility]ACTIV[facility] PARTIAL THRMPLAS [id number] 16:10:24 Test Item Value Reference Range Interpretation Comments APTT Patient (test See_Comment [Automat ed code = 3173-2) message] The system which generated this result transmitted reference range : 23 - 38 Seconds . The reference range was not used to interpr et this result as normal/abnormal . ROBERTO (test code = ROBERTO) The [facility] patient population mean normal value for aPTT is 30 seconds. Lab Interpretation Normal (test code = 79763-6) [facility]thrombin Time / [id number] 16:08:28 Test Item Value Reference Range Interpretation [...] tions. Lab Interpretation (test Normal code = 55284-2) [facility]TR[facility] [id number] 15:53:25 Test Item Value Reference Interpretation Comments Range TROPONIN I (test See_Comment [Automated code = 1167097357) message] The system which generated this result [...] biotin. Lab Interpretation Normal (test code = 18660-1) [facility]. METABOLIC PANEL (34495)2022-04-27 15:42:03 Test Item Value Reference Range Interpretation Comments NA (test code = 139 mmol/L 135-145 6557161707) K (test code = 4.1 mmol/L 3.5-5 2513747257) CL (test code = 105 mmol/L 98-108 1602428636) CO2 TOTAL (test code = 27 mmol/L 23-31 2770483566) AGAP (test code = 2-16 3958150930) BUN (test code = 6 mg/dL 7-23 L 1376947296) GLUCOSE (test code = 96 mg/dL 70-110 3704413652) CREATININE (test code = 0.87 mg/dL 0.6-1.25 9252236603) TOTAL BILI (test code = 0.3 mg/dL 0.1-1.4 9189609011) CALCIUM (test code = 9.1 mg/dL 8.6-10.6 2560962973) T PROTEIN (test code = 6.9 g/dL 6.3-8.2 6073742332) ALBUMIN (test code = 3.6 g/dL 3.5-5 2724392085) ALK PHOS (test code = 89 U/L 34-122 4944284943) ALTv (test code = 12 U/L 5-50 1742-6) AST(SGOT) (test code = 17 U/L 13-40 4131517601) eGFR (test code = mL/min/1.73m2 6739073852) ROBERTO (test code = ROBERTO) Association of [...] tests). Lab Interpretation Abnormal (test code = 74030-4) [facility]2022-09-21 15:42:03 Test Item Value Reference Range Interpretation Comments MAGNESIUM (test code = 0343615451) 1.9 mg/dL 1.7-2.4 Lab Interpretation (test code = Normal 51882-9) [facility]2022-[facility]-21 15:42:03 Test Item Value Reference Range Interpretation Comments LIPASE (test code = 3906688829) 115 U/L 0-220 Lab Interpretation (test code = Normal 24617-5) [facility] WITH [id number] 15:32:42 Test Item Value Reference Range Interpretation Comments WBC (test code = See_Comment [Automated 90-2) message] The sy stem which generated this [...] RDW-SD (test code = 39.8 fL 38.5-51.6 09764-8) RDW-CV (test code = 15.1 % 12.1-15.4 788-0) PLT (test code = See_Comment H [Automated 777-3) message] The sy stem which generated this result transmitted reference range : 150 - 328 10*3/ ?L. The reference r carlota was not used to interpret this result as normal/abnormal . MPV (test code = 9.5 fL 9.8-13 L 56464-0) NRBC/100 WBC (test See_Comment [Automat ed code = 2297948481) message] The system which generated this result transmitted reference range : 0.0 - 10.0 /100 WBCs. The refer ence range was not u sed to interpret th is result as normal/abnormal . NRBC x10^3 (test code See_Comment [Auto mated = 7044280936) message] The s ystem which generated this result transmitted reference range : 10*3/?L. The reference range was not used to interpret this result as normal/abnormal . GRAN MAT (NEUT) % 51.9 % (test code = 770-8) IMM GRAN % (test code 0.30 % = 0549226365) LYMPH % (test code = 31.1 % 736-9) MONO % (test code = 13.0 % 5905-5) EOS % (test code = 2.5 % 713-8) BASO % (test code = 1.2 % 706-2) GRAN MAT x10^3(ANC) 3.35 10*3/uL 1.99-6.95 (test code = 5357105747) IMM GRAN x10^3 (test 0-0.06 code = 2996049801) LYMPH x10^3 (test code 2.01 10*3/uL 1.09-3.23 = 731-0) MONO x10^3 (test code 0.84 10*3/uL 0.36-1.02 = 742-7) EOS x10^3 (test code = 0.16 10*3/uL 0.06-0.53 711-2) BASO x10^3 (test code 0.08 10*3/uL 0.01-0.09 = 704-7) Lab Interpretation Abnormal (test code = 51739-3) [facility]ST 1 [id number] 08:28:00Patient Name: ALEX BURROUGHS Unit No: [id number] EXAMS: CPT: [id number] XR CHEST 1 V 29881 History: Chest pain CHEST 1 VIEW FINDINGS: [...] BATCH NO: N/A Name: ALEX BURROUGHS [facility] Phys: Sky Starks MD [address] [place] : 1975 Age: 44 [place]: [place] [address] Loc: N.ERS Exam Date: 05/23/2019 Status: REG ER PH: FAX: PAGE 1 Signed [id number] 07:18:00 Test Item Value Reference Range Interpretation Comments TROPONIN-I (test code = TROPI) <0.020 ng/mL 0.000-0.034 N BASIC METABOLIC [id number] 07:14:00 Test Item Value Reference Range Interpretation [...] mg/dL 8.5-10.5 N = CA) CBC W/AUTO [id number] 07:10:00 Test Item Value Reference Range Interpretation [...]
[2022-10-10 12:02] LABS: Absolute Lymphocytes (CBC) 0.8 K/uL (0.7-4.9); Hematocrit 41.5 % (39.6-49.0); Lymphocytes % 11.1 % (15.3-44.8); MPV 8.4 fL (7.6-11.3); RBC Red Blood Cell Count 5.39 M/uL (4.33-5.43)
[2022-10-10 12:25] LABS: Albumin 3.8 g/dL (3.4-5.0); Bilirubin Total 0.3 mg/dL (0.2-1.0); Potassium 3.8 mmol/L (3.5-5.1); Protein, Total 7.8 g/dL (6.4-8.2)
[2022-10-10] MEDS ORDERED: MORPHINE 4 MG/ML SYR ONE (12:32)
[2022-10-10] MEDS ORDERED: ONDANSETRON 4 MG/2 ML VIAL ONE (12:32)
--- NOTE | 2022-10-10 13:45 | ER ---
Nurse's Notes [facility] Name: Wicho Weeks Age: 47 yrs Sex: Male : 1975 Arrival Date: 10/10/2022 Time: 10:35 Bed 9 Private MD: Diagnosis: Other ulcerative colitis with unspecified complications;Diarrhea, unspecified;Anemia, unspecified Presentation: 10/10 10:49 Chief complaint: Patient states: abd pain and blood in stool since yesterday , hx of iw UC. Coronavirus screen: At this time, the client does not indicate any symptoms associated with coronavirus-19. Ebola Screen: Patient negative for fever greater than or equal to 101.5 degrees Fahrenheit, and additional compatible Ebola Virus Disease symptoms Patient denies exposure to infectious person. Patient denies travel to an Ebola-affected area in the 21 days before illness onset. No symptoms or risks identified at this time. Initial Sepsis Screen: Does the patient meet any 2 criteria? No. Patient's initial sepsis screen is negative. Does the patient have a suspected source of infection? No. Patient's initial sepsis screen is negative. Risk Assessment: Do you want to hurt yourself or someone else? Patient reports no desire to harm self or others. Onset of symptoms was October 10, 2022. 10:49 Method Of Arrival: Ambulatory iw 10:49 Acuity: DRE 3 iw Historical: - Allergies: 10:55 No Known Allergies; aa5 - PMHx: 10:55 Chronic Abdominal Pain; Colitis; GI Bleed; aa5 - PSHx: 10:55 Rectal abscess removal; aa5 Assessment: 11:18 Reassessment: Patient appears in no apparent distress at this time. Patient and/or iw family updated on plan of care and expected duration. Pain level reassessed. Patient is alert, oriented x 3, equal unlabored respirations, skin warm/dry/pink. Vital Signs: 10:49 BP 124 / 80; Pulse 85; Resp 18 S; Temp 98.0(TE); Pulse Ox 100% on R/A; Weight 90.72 kg aa5 (R); Height 5 ft. 9 in. (175.26 cm); 10:49 Body Mass Index 29.53 (90.72 kg, 175.26 cm) aa5 ED Course: 10:35 Patient arrived in ED. rg4 10:36 Rony Begum DO is Attending Physician. ms3 10:49 Arm band placed on. aa5 10:50 Triage completed. iw 11:18 Farzana Lizarraga, RN is Primary Nurse. iw 11:18 Initial lab(s) drawn, by me, sent to lab. Missed attempt(s): 20 gauge in right iw antecubital area. Bleeding controlled, band aid applied, catheter tip intact. 13:43 Jose cShilling MD is Referral Physician. ms3 Administered Medications: 12:36 Drug: morphine 4 mg Route: IVP; Infused Over: 4 mins; Site: left antecubital; iw 12:36 Drug: Zofran (Ondansetron) 4 mg Route: IVP; Site: left antecubital; iw 14:12 Drug: SOLU-Medrol (methylPrednisoLONE) 125 mg Route: IVP; Site: left antecubital; iw Outcome: 13:44 Discharge ordered by . ms3 14:15 Patient left the ED. iw Signatures: Farzana Lizarraga RN RN Debbie Denise RN RN aa5 Garcia, Rubi rg4 Rony Begum DO DO ms3
--- NOTE | 2022-10-10 13:45 | EDPHYS ---
Physician Documentation [facility] Name: Wicho Weeks Age: 47 yrs Sex: Male : 1975 Arrival Date: 10/10/2022 Time: 10:35 Bed 9 Private MD: ED Physician Rony Begum HPI: 10/10 10:50 This 47 yrs old Male presents to ER via Unassigned with complaints of Bloody ms3 Stools. 10:50 47-year-old male with past medical history of ulcerative colitis presents for diarrhea, ms3 abdominal pain, inability to eat recurred yesterday. Patient states his discomfort is 10/10, he has a distended feeling. Patient endorses diarrhea, nausea. Patient denies vomiting at this time.. Historical: - Allergies: 10:55 No Known Allergies; aa5 - PMHx: 10:55 Chronic Abdominal Pain; Colitis; GI Bleed; aa5 - PSHx: 10:55 Rectal abscess removal; aa5 ROS: 10:50 Constitutional: Negative for fever, and chills. Neck: Negative for injury, pain, and ms3 swelling, Cardiovascular: Negative for chest pain, and palpitations. Respiratory: Negative for shortness of breath, cough, wheezing, and pleuritic chest pain. 10:50 Skin: Negative for injury, rash, and discoloration. 10:50 Abdomen/GI: Positive for nausea, diarrhea. 10:50 All other systems are negative. Exam: 10:50 Constitutional: This is a well developed, well nourished patient who is awake, alert, ms3 and in no acute distress. Head/Face: Normocephalic, atraumatic. Neck: Trachea midline, no cervical lymphadenopathy. Supple, full range of motion without nuchal rigidity, or vertebral point tenderness. No Meningismus. Chest/axilla: Normal chest wall appearance and motion. Nontender with no deformity. Cardiovascular: Regular rate and rhythm with a normal S1 and S2. No gallops, murmurs, or rubs. Normal PMI, no JVD. No pulse deficits. Respiratory: Lungs have equal breath sounds bilaterally, clear to auscultation and percussion. No rales, rhonchi or wheezes noted. No increased work of breathing, no retractions or nasal flaring. 10:50 Skin: Warm, dry with normal turgor. Normal color with no rashes, no lesions, and no evidence of cellulitis. MS/ Extremity: Pulses equal, no cyanosis. Neurovascular intact. Full, normal range of motion. Psych: Awake, alert, with orientation to person, place and time. Behavior, mood, and affect are within normal limits. 10:50 Abdomen/GI: Inspection: abdomen appears normal, Bowel sounds: normal, Palpation: moderate abdominal tenderness, in all quadrants. Vital Signs: 10:49 BP 124 / 80; Pulse 85; Resp 18 S; Temp 98.0(TE); Pulse Ox 100% on R/A; Weight 90.72 kg aa5 (R); Height 5 ft. 9 in. (175.26 cm); 10:49 Body Mass Index 29.53 (90.72 kg, 175.26 cm) aa5 MDM: 10:50 Differential diagnosis: GI Bleed, non-specific abd pain, Ulcerative Colitis. ms3 10:57 Patient medically screened. ms3 10/10 10:48 Order name: CBC with Diff ms3 10/10 10:48 Order name: CMP ms3 10/10 11:31 Order name: Labs - recollect needed: recollect green top; Complete Time: 11:50 bd 10/10 11:38 Order name: Labs - recollect needed: recollect cbc; Complete Time: 11:50 bd 10/10 12:09 Order name: CBC with Automated Diff; Complete Time: 12:18 EDMS 10/10 12:34 Order name: Comprehensive Metabolic Panel; Complete Time: 12:54 EDMS Administered Medications: 12:36 Drug: morphine 4 mg Route: IVP; Infused Over: 4 mins; Site: left antecubital; iw 12:36 Drug: Zofran (Ondansetron) 4 mg Route: IVP; Site: left antecubital; iw 14:12 Drug: SOLU-Medrol (methylPrednisoLONE) 125 mg Route: IVP; Site: left antecubital; iw Disposition Summary: 10/10/22 13:44 Discharge Ordered Location: Home ms3 Condition: Stable ms3 Diagnosis - Other ulcerative colitis with unspecified complications ms3 - Diarrhea, unspecified ms3 - Anemia, unspecified ms3 Followup: ms3 - With: Jose Schilling MD - When: 2 - 3 days - Reason: Recheck today's complaints Discharge Instructions: - Discharge Summary Sheet ms3 - Diarrhea, Adult ms3 - Ulcerative Colitis, Adult ms3 Forms: - Medication Reconciliation Form ms3 - Thank You Letter ms3 - Antibiotic Education ms3 - Prescription Opioid Use ms3 Prescriptions: - Protonix 40 mg Oral Tablet - take 1 tablet by ORAL route once daily; 30 tablet; Refills: 0, Product ms3 Selection Permitted - Prednisone 20 mg Oral Tablet - take 2 tablets by ORAL route once daily for 5 days; 10 tablet; Refills: 0, ms3 Product Selection Permitted Signatures: Dispatcher [employer] Astrid Bravo Irene, RN RN iw Debbie Denise RN RN aa5 Rony Begum, DO ms3
[2022-10-10] MEDS ORDERED: METHYLPREDNISOLONE 125 MG INJ ONE (14:14)
[2022-10-10 14:38] VITALS: BP 124/80; O2SAT 100
[2022-10-10 14:41] VITALS: TEMP 97.5
== END 2022-10-10 14:15 | disposition home or self-care (01) ==
LOC: ER 10:34
DX: K51.919 Ulcerative colitis, unspecified with unspecified complications (principal); D64.9 Anemia, unspecified
CPT/HCPCS: 36415; 80053; 85025; 96374; 96375; 99283; J2405; J2930

== ENCOUNTER 2022-10-20 19:35 | Emergency (ER) | payer SELFPAY ==
--- OUTSIDE RECORDS SUMMARY | 2022-10-20 19:42 | XMS REPORT | Continuity of Care Document ---
:1975 Author Organization [facility] t Address [address] [place] [address] [address] [place] [address] Care Team Providers Name Role Phone TYE FONSECA Primary Care Physician Unavailable ANA PEACOCK Attending Clinician Unavailable ELLI HARLEY Attending Clinician Unavailable Elli Harley DO Attending Clinician JUSTIN BAPTISTE Attending Clinician Unavailable Justin Baptiste MD Attending Clinician Doctor Unassigned, [place] Attending Clinician Unavailable RAYRAY GAMEZ Attending Clinician [...] Jaci Estrella DO Admitting Clinician CONSTANTINO OKEEFE Christiano Admitting Clinician Unavailable DARRYN LANDA Admitting Clinician Unavailable Darryn Landa MD Admitting Clinician DAVINA ANDERSON Admitting Clinician Unavailable Payers Payer Name Policy Type Policy Number Effective Date Expiration Date S ource Problems Condition Condition Condition Status Onset Resolution Last Treating Co mments Source Name Details Category Date Date Treatment Clinician Date Bloody Bloody Disease Active 2021-08 Univers stools stools 0-05 ity of 00:00: [address] Obesity Obesity Disease Active 2021-08 Univers (BMI (BMI 0-05 ity of 30-39.9) 30-39.9) 00:00: [address] Proctocoli Proctocoli Disease Active U nivers tis tis 9-21 ity of 00:00: [address] Allergies, Adverse Reactions, Alerts Allergy Allergy Status Severity Reaction(s) Onset Inactive Treating Comm ents Source Name Type Date Date Clinician No Known DA Active U 2018-08 [facility] All[facility]ie 0-17 [facility] 00:00: [facility] [address] [facility] [address] NO KNOWN Drug Active Univers ALLERGIE Class ity of S [facility] Social History Social Habit Start Date Stop Date Quantity Comments Source History of Passive smoker University of tobacco use [facility] Exposure to 2022-08-14 2022-08-24 Not sure [facility] SARS-CoV-2 00:00:00 14:04:00 [facility] (event) [place] Alcohol intake 2022-08-24 2022-08-24 Ex-drinker [facility] 00:00:00 00:00:00 (finding) [facility] Education 2022-05-11 2022-05-11 21 [facility] 00:00:00 00:00:00 [facility] Tobacco use and 2022-04-27 2022-04-27 Smokeless tobacco Un iversity of exposure 00:00:00 00:00:00 non-user [facility] Sex Ass[birth year] At [birth year] Universit y of 00:00:00 00:00:00 [facility] Smoking Status Start Date Stop Date Source Ex-smoker 2022-04-27 00:00:00 2022-04-27 00:00:00 [facility] Medications Ordered Filled Start Stop Current Ordering Indication Dosage Frequency Signature Comments Components Source Medication Medication Date Date Medication? Clinician (SIG) Name Name ketorolac 2022- No 15mg 15 mg, Unive rs (TORADOL) 08-25 Slow IV ity of injection 01:15: 00:23 Push, [place] 15 mg 00 :00 ONCE, 1 Medical dose, On Branch 08/24/22 at 1915, JANNA iopamidol 2022- No [id number] 105mL 105 mL, Univers (ISOVUE 08-25 Intravenou [...] 08/24/22 at 1700, JANNA ondansetron 0 Yes [id number] 4mg Take 1 Univers 4 mg 1-18 tablet by ity of disintegrat 00:00: mouth [place] ing tablet 00 every 8 Medica l (eight) Branch hours as needed for Nausea and Vomiting (N/V). dicyclomine 2022-0 Yes [id number] 20mg Take 1 Univers 20 mg 1-18 tablet by ity of tablet 00:00: mouth in [place] 00 the Medical morning Branch and 1 tablet in the evening. morpHINE (4 2021-08 No 4mg 4 mg, Slow Univers mg/mL) [...] at 2230, 1 mL predniSONE 2021-08 Yes [id number] Take 1 po Univers 20 mg 1-26 tid x 2 ity of tablet 00:00: days, then [place] 00 take 1 po Medical bid x 3 Branch days, then take 1 po daily x 5 days. predniSONE 2021-08 Yes [id number] Take 1 po Univers 20 mg 1-26 tid x 2 ity of tablet 00:00: days, then [place] 00 take 1 po Medical bid x 3 Branch days, then take 1 po daily x 5 days. famotidine 2021-08- No [id number] 20mg Take 1 Univers (PEPCID) 20 1-26 12-12 tablet by it y of mg tablet 00:00: 05:59 mouth in [place] 00 :00 the Medical morning Branch and 1 tablet in the evening. Do all this for 15 days. predniSONE 2021-08- No [id number] Take 1 po Univers 20 mg 09-01 tid x 2 ity of tablet 00:00: 00:00 [place] 00 :[place] 1 po bid x Medical 3 days, Branch then 1 po daily x 5 days famotidine 2021-08- No [id number] 20mg Take 1 Univers (PEPCID) 20 09-01 tablet by it y of mg tablet 00:00: 00:00 mouth in [place] 00 :00 the Medical morning Branch and 1 tablet in the evening. Do all this for 15 days. predniSONE 2021-08- No [id number] Take 3 Univers 5 mg tablet 08-22 tablets by i ty of 00:00: 05:59 mouth [place] 00 :00 daily for Medical 7 days, Branch THEN 2 tablets daily for 7 days, THEN 1 tablet daily for 7 days. predniSONE 2021-08- No [id number] Take 3 Univers 5 mg tablet 08-22 tablets by i ty of 00:00: 05:59 mouth [place] 00 :00 daily for Medical 7 days, Branch THEN 2 tablets daily for 7 days, THEN 1 tablet daily for 7 days. predniSONE 2021-08- No [id number] Take 3 Univers 5 mg tablet 08-22- tablets by i ty of 00:00: 05:59 mouth [place] 00 :00 daily for Medical 7 days, Branch THEN 2 tablets daily for 7 days, THEN 1 tablet daily for 7 days. lactobacill 2021-08- No [id number] .5mg Take 1 Univers us 0-12 02-10 tablet by ity of acidophilus 00:00: 05:59 mouth in [place] 00 :00 the Medical morning Branch for 120 days. lactobacill 2021-08- No [id number] .5mg Take 1 Univers us 0-12 02-10 tablet by ity of acidophilus 00:00: 05:59 mouth in [place] 00 :00 the Medical morning Branch for 120 days. lactobacill 2021-08- No [id number] .5mg Take 1 Univers us 0-12 02-10 tablet by ity of acidophilus 00:00: 05:59 mouth in [place] 00 :00 the Medical morning Branch for 120 days. lactobacill 2021-08- No [id number] .5mg Take 1 Univers us 0-12 02-10 tablet by ity of acidophilus 00:00: 05:59 mouth [place] :00 the Medical morning Branch for 120 days. predniSONE 2021-08- No [id number] Take 6 Univers 10 mg 0-12 11-17 [...] it y of succ 14:30: s, Q8H, [place] (SOLU-MEDRO 00 First dose Me dical L (PF)) on [facility] Branch injection 05/14/22 at 20 mg 0930, Until Discontinu ed, Routine methylPREDN 2021-08 No 20mg 20 mg, Uni vers ISolone sod 0-08 10-11 Intravenou i ty of succ 14:30: 13:41 s, Q8H, [place] (SOLU-MEDRO 00 :53 First dose Me dical L (PF)) on [facility] Branch injection 05/14/22 at 20 mg 0930, Until Discontinu ed, Routine acetaminoph 2021-08 Yes 650mg 650 mg, Un kar en 0-07 Oral, ity of (TYLENOL) 23:05: Q6HPRN, [place] tablet 650 22 Starting Medic al mg on Mon Branch 05/13/22 at 1805, Until Discontinu ed, Routine, Pain (scale 1-3), Temp > 38.5 C acetaminoph 2021-08 Yes 650mg 650 mg, Un kar en 0-07 Oral, ity of (TYLENOL) 23:05: Q6HPRN, [place] tablet 650 22 Starting Medic al mg on Mon Branch 05/13/22 at 1805, Until Discontinu ed, Routine, Pain (scale 1-3), Temp > 38.5 C morpHINE (4 2021-08- No 2mg 2 mg, Slow Univers mg/mL) 0- IV [place], ity of injection 2 17:02: [...] 0-07 Units, ity of (vitamin 14:00: Oral, [place] D3) tablet 00 DAILY, Medical 2,000 Units [...] IV Push, ity of (PF)) 22:23: Q6HPRN, [place] injection 4 56 Nausea and Me dical mg Vomiting Branch (N/V), Starting on Yue 05/12/22 at 1723
Do ses of ondansetro n 16 mg and above need to be administer ed via IV piggyback. For Dose >=24mg ECG monitoring is advisable.
ondansetron 2021-08 Yes 4mg 4 mg, Slow Univers (ZOFRAN 0-06 IV Push, ity of (PF)) 22:23: Q6HPRN, [place] injection 4 56 Nausea and Me dical [...] at solution 0900, 4,000 mL Routine peg-electro 2022-1 2022- No 4000mL 4,000 mL, [facility] [place] lyte soln 0-06 10-06 Oral, ity of [...] 0815, Until Mon05/13/22 at 1203, Routine vancomycin 2021-08 No 500mg [...] culty member approving Non-formul lenny medication : BRIGIDO, ADNAN
R saad for non-formul lenny use: SPECIFIC [...] Yue 05/12/22 at 0812, Routine NaCl 0.9% 2021-08- No 1000mL at 100 [...] on Mon Medical packet 1 05/11/22 at [facility] Packet 2145, Until Discontinu ed, Routine cholestyram 2021-08 Yes 1{packe 1 Packet, Univers ine 0-06 t} Oral, BID, ity of (QUESTRAN) 02:45: First dose [place] 4 gram 00 on Mon Medical packet 1 05/11/22 at [facility] Packet 2145, Until Discontinu ed, Routine vancomycin 2021-08- No 500mg 500 mg, [...] days diphenhydrA 2021-08 Yes 25mg 25 mg, [facility] ers MINE 0-06 Intravenou ity of (BENADRYL) 02:25: s, Q4HPRN, [place] injection 39 Starting Medica l 25 mg on Mon Branch 05/11/22 at 2125, Until Discontinu ed, Routine, Itching diphenhydrA 2021-08 Yes 25mg 25 mg, [facility] ers MINE 0-06 Intravenou ity of (BENADRYL) 02:25: s, Q4HPRN, [place] injection 39 Starting Medica l 25 mg on Mon Branch 05/11/22 at 2125, Until Discontinu ed, Routine, Itching morpHINE (2021-08 Yes 4mg 4 mg, Slow Univers mg/mL) 0-06 IV Push, ity of injection 4 01:53: Q4HPRN, [place] mg 50 Starting Medical on Mon Branch 05/11/22 at 2053, Until Discontinu ed, Routine, Pain (scale 7-10) morpHINE (2021-08 Yes 4mg 4 mg, Slow Univers mg/mL) 0-06 IV Push, ity of injection 4 01:53: Q4HPRN, [place] mg 50 Starting Medical on Mon Branch 05/11/22 at 2053, Until Discontinu ed, Routine, Pain (scale 7-10) diphenhydrA 2021-08 No 25mg 25 mg, [facility] vers MINE 0-05 10-05 Slow IV ity of (BENADRYL) 21:45: 21:35 [place], [place] injection 00 :00 ONCE, 1 Medical 25 mg dose, On Branch 05/11/22 at 1645, STAT diphenhydrA 2021-08- No 25mg [...] On Branch Mon05/11/22 at 1430, STAT iopamidol 2021-08- No [id number] 75mL 75 mL, Univers (ISOVUE 0-04 10-04 [...] 1 Medical 75 mcg dose, On Branch Mon22 at 2230, Routine diphenhydrA 2021-08 No 25mg 25 mg, Uni vers MINE 0- 10- Slow IV ity of (BENADRYL) 02:30: 03:12 [place], [place] injection 00 :00 ONCE, 1 Medical 25 mg dose, On Branch [facility] 05/09/22 at 2130, STAT ondansetron 2021-08 No 4mg 4 mg, Slow Univers (ZOFRAN 005-10 IV Push, ity of (PF)) 02:15: 03:09 ONCE, 1 [place] injection 4 00 :00 dose, On Medi miranda mg Mon [place] 05/09/22 at 2115, JANNA ferrous 2021-08 No 325mg Take 325 Univ ers sulfate 325 0-03 10-03 mg by ity of mg (65 mg 20:43: 00:00 mouth in [place] iron) 33 :00 the Medical tablet morning. Branch mesalamine 2021-08- No [id number] 1.2g Take 1 Univers 1.2 gram EC 0-03 -18 tablet by it y of tablet 00:00: 04:59 mouth [place] 00 :00 daily with Medical breakfast Branch for 14 days. mesalamine 2021-08 No [id number] 1.2g Take 1 Univers 1.2 gram EC 0-03 -18 tablet by it y of tablet 00:00: 04:59 mouth [place] 00 :00 daily with Medical breakfast Branch for 14 days. mesalamine 2021-08 No [id number] 1.2g Take 1 Univers 1.2 gram EC 0-03 10-11 tablet by it y of tablet 00:00: 00:00 mouth [place] 00 :00 daily with Medical breakfast Branch for 14 days. ferrous Yes 325mg Take 325 Unive rs sulfate 325 9-23 mg by ity of mg (65 mg 13:15: [place] iron) 46 the Medical tablet morning. Branch ferrous 0 Yes 325mg Take 325 Unive rs sulfate 325 9-23 mg by ity of mg (65 mg 13:15: [place] iron) 46 the Medical tablet morning. Branch acetaminoph 2021- No 1{tbl} Take 1 U nivers en with 9-29 04- tablet by ity of codeine 12:40: 00:00 mouth [place] (TYLENOL-CO 38 :00 every 6 Medic al DEINE #3 (six) Branch ORAL) hours as needed for Pain (scale 7-10). ciprofloxac 2021- No 250mg Take 250 Univers in HCl 250 04-29- mg by ity of mg tablet 11:38: 00:00 mouth [place] 56 :00 every 12 Medical (twelve) Branch hours. mesalamine 0 2021- No 1000mg Take 1,000 Univers 500 mg CR 04-29- mg by ity of capsule 11:38: 00:00 mouth in [place] 56 :00 the Medical morning Branch and 1,000 mg at noon and 1,000 mg in the evening. mesalamine Yes 1600mg 1,600 mg, Univers (ASACOL HD) 9-23 Oral, TID, it y of EC tablet 01:00: First dose [place] 1,600 mg 00 on Yue Medical 04/28/22 at Branch 2000, Until Discontinu ed, Routine
member services representative approving Restricted medication : NATALIE LANDALANI acetaminoph Yes [id number] 1{tbl} Take 1 Un kar en-codeine 9-23 tablet by ity of (TYLENOL-CO 00:00: mouth [place] DEINE #3) 00 every 6 Medical 300-30 mg (six) Branch tablet hours as needed for Pain (scale 7-10). Indication s: acute pain mesalamine 0 Yes [id number] 1.2g Take 1 U nivers 1.2 gram EC 9-23 tablet by ity of tablet 00:00: mouth [place] 00 daily with Medical breakfast. Branch vancomycin 0 Yes [id number] 125mg Take 1 Univers 125 mg 9-23 capsule by ity of capsule 00:00: mouth 4 [place] 00 (four) Medical times Branch daily. mesalamine 2021-0 Yes [id number] 1.2g Take 1 U nivers 1.2 gram EC 9-23 tablet by ity of tablet 00:00: mouth [place] 00 daily with Medical breakfast. Branch vancomycin 0 Yes [id number] 125mg Take 1 Univers 125 mg 9-23 capsule by ity of capsule 00:00: mouth (four) Medical times Branch daily. mesalamine Yes [id number] 1.2g Take 1 U nivers 1.2 gram EC 9-23 tablet by ity of tablet 00:00: mouth [place] 00 daily with Medical breakfast. Branch vancomycin Yes [id number] 125mg Take 1 Univers 125 mg 9-23 capsule by ity of capsule 00:00: mouth 4 [place] 00 (four) Medical times Branch daily. acetaminoph Yes [id number] 1{tbl} Take 1 Un kar en-codeine 9-23 tablet by ity of (TYLENOL-CO 00:00: mouth [place] DEINE #3) 00 every 6 Medical 300-30 mg (six) Branch tablet hours as needed for Pain (scale 7-10). Indication s: acute pain mesalamine Yes [id number] 1.2g Take 1 U nivers 1.2 gram EC 9-23 tablet by ity of tablet 00:00: mouth [place] 00 daily with Medical breakfast. Branch vancomycin Yes [id number] 125mg Take 1 Univers 125 mg 9-23 capsule by ity of capsule 00:00: mouth [address] [place] [address] 00 (four) Medical times Branch daily. mesalamine 2021- No [id number] 1.2g Take 1 Univers 1.2 gram EC 9-23 10-11 tablet by it y of tablet 00:00: 00:00 mouth [place] 00 :00 daily with Medical breakfast. Branch vancomycin 2021- No [id number] 125mg Take 1 Univers 125 mg 9-23 10-11 capsule by ity of capsule 00:00: 00:00 mouth [place] 00 :00 (four) Medical times Branch [...] Indication s: acute pain vancomycin 2021- No [id number] 125mg Take 1 Univers 125 mg 04-29 capsule by ity of capsule 00:00: 00:00 mouth 4 [place] 00 :00 (four) Medical times Branch daily for 9 days. mesalamine 2021- No [id number] 1.2g Take 1 Univers 1.2 gram EC [...] Routine, Itching acetaminoph Yes 1{tbl} 1 tablet, [facility] [place] en-codeine 04-27 Oral, ity of (TYLENOL 23:57: Q4HPRN, [place] #3) 300-30 43 Starting Medic al mg [...] ity of 1,000 mg in 20:00: 19:48 [place], [place] NaCl 0.9% 00 :56 Q24H ABX, [...] Routine, Pain (scale 1-3) iopamidol 2021- No [id number] 70mL 70 mL, Univers (ISOVUE 04-27 Intravenou [...] [place] mg 00 :00 dose, On Medical [facility] Branch 04/27/22 at 1115, STAT Vital Signs Vital Name Observation Time Observation Value Comments Source Systolic blood 2022-08-25 01:11:00 148 mm[Hg] Univer sity of pressure [facility] Diastolic blood 2022-08-25 01:11:00 98 mm[Hg] Unive rsity of pressure [facility] Heart rate 2022-08-25 01:11:00 81 /min Universi ty of [facility] Respiratory rate 2022-08-25 01:11:00 16 /min Univ ersity of [facility] Oxygen saturation in 2022-08-25 01:11:00 99 /min University of Arterial blood by [place] [employer] miranda Pulse oximetry Branch Body temperature 2022-08-24 20:06:00 36.83 Breann [facility] ersity of [facility] Body height 2022-08-24 20:06:00 175.3 cm Universi ty of [facility] Body weight 2022-08-24 20:06:00 90.719 kg Universi ty of [facility] Branch BMI 2022-08-24 20:06:00 29.53 kg/m2 Universi ty of [facility] Branch Systolic blood 2022-07-03 06:00:00 134 mm[Hg] Univer sity of [facility] Diastolic blood 2022-07-03 06:00:00 84 mm[Hg] Unive rsity of pressure [facility] Heart rate 2022-07-03 06:00:00 72 /min Universi ty of [facility] Branch Respiratory rate 2022-07-03 06:00:00 18 /min Univ ersity of [facility] Oxygen saturation in 2022-07-03 06:00:00 95 /min University of Arterial blood by [place] [employer] miranda Pulse oximetry Branch Body temperature 2022-07-03 03:50:00 37.39 Breann Univ ersity of [facility] Branch Body height 2022-07-03 03:50:00 175.3 cm Universi ty of [place] [facility] Branch Body weight 2022-07-03 03:50:00 90.719 kg Universi ty of [facility] Branch BMI 2022-07-03 03:50:00 29.53 kg/m2 Universi ty of [facility] Branch Systolic blood 2022-05-17 16:43:00 128 mm[Hg] [...] 100 /min University of Arterial blood by [place] [employer] miranda Pulse oximetry Branch Body weight 2022-05-17 09:42:00 87 kg Universi ty of [place] [facility] BMI 2022-05-17 09:42:00 28.32 kg/m2 Universi ty of [place] [facility] Body height 2022-05-11 22:16:00 175.3 cm Universi ty of [place] [facility] Systolic blood 2022-05-13 14:58:00 128 mm[Hg] Univer sity of pressure [place] [facility] Diastolic blood 2022-05-13 14:58:00 80 mm[Hg] Unive rsity of pressure [place] [facility] Heart rate 2022-05-13 14:58:00 86 /min Universi ty of [place] [facility] Body temperature 2022-05-13 14:58:00 37.67 Breann Univ ersity of [place] [facility] Respiratory rate 2022-05-13 14:58:00 18 /min Univ ersity of [place] [facility] Oxygen saturation in 2022-05-13 14:58:00 99 /min University of Arterial blood by [place] [employer] miranda Pulse oximetry Branch Body weight 2022-05-13 09:27:00 90.992 kg Universi ty of [place] [facility] BMI 2022-05-13 09:27:00 28.32 kg/m2 Universi ty of [place] [facility] Body height 2022-05-11 22:16:00 175.3 cm Universi ty of [place] [facility] Heart rate 2022-05-10 04:12:00 73 /min Universi ty of [place] [facility] Body temperature 2022-05-10 04:12:00 36.5 Breann Univ ersity of [place] [facility] Oxygen saturation in 2022-05-10 04:12:00 97 /min University of Arterial blood by [facility] Pulse oximetry Branch Systolic blood 2022-05-10 04:00:00 133 mm[Hg] Univer sity of pressure [facility] Diastolic blood 2022-05-10 04:00:00 79 mm[Hg] Unive rsity of [facility] Respiratory rate 2022-05-10 04:00:00 19 /min [facility] height 2022-05-10 01:42:00 175.3 cm Universi [facility] Body weight 2022-05-10 01:42:00 86.183 kg General acute hospital BMI 2022-05-10 01:42:00 28.06 kg/m2 General acute hospital Systolic blood 2022-04-29 17:14:00 132 mm[Hg] Univer sity of pressure [facility] Diastolic blood 2022-04-29 17:14:00 98 mm[Hg] Unive rsity of [facility] Heart rate 2022-04-29 17:14:00 90 /min General acute hospital Body temperature 2022-04-29 17:14:00 36.28 Breann [facility] Respiratory rate 2022-04-29 17:14:00 18 /min [facility] Oxygen saturation in 2022-04-29 17:14:00 100 /min University of Arterial blood by [facility] Pulse oximetry Branch Body weight 2022-04-28 09:36:00 87.998 kg General acute hospital BMI 2022-04-28 09:36:00 28.65 kg/m2 General acute hospital Body height 2022-04-27 21:57:00 175.3 cm General acute hospital Procedures Procedure Date / Time Performing Clinician Source Performed COMP. METABOLIC PANEL 2022-08-24 21:45:00 Elli Harley [facility] ([id number]) [facility] CBC WITH DIFF 2022-08-24 21:45:00 Elli Harley [facility] LACTIC ACID WHOLE BLOOD 2022-08-24 21:45:00 Elli Harley [facility] CONSENT/REFUSAL FOR 2022-08-24 19:59:50 Doctor Unassigned, [facility] DIAGNOSIS AND TREATMENT [place] [facility] [place] COMP. METABOLIC PANEL 2022-07-03 04:42:00 Justin Baptiste [facility] ([id number]) [facility] Branch CBC WITH DIFF 2022-07-03 04:42:00 Justin Baptiste [facility] CONSENT/REFUSAL FOR 2022-07-03 03:35:53 Doctor Unassigned, [facility] DIAGNOSIS AND TREATMENT [place] [facility] BASIC METABOLIC PANEL 2022-05-16 08:42:00 [facility], K, CL, CO2, GLUCOSE, Medica l Branch BUN, CREATININE, CA) CBC WITH DIFF 2022-05-16 08:42:00 [facility] 2022-05-16 08:42:00 [facility] (NA, K, CL, CO2, GLUCOSE, Medica l Branch BUN, CREATININE, CA) CBC WITH DIFF 2022-05-16 08:42:00 [facility]OLIC PANEL 2022-05-15 09:46:00 [facility] (NA, K, CL, CO2, GLUCOSE, Medica l Branch BUN, CREATININE, CA) CBC WITH DIFF 2022-05-15 09:46:00 [facility]OLIC PANEL 2022-05-15 09:46:00 [facility] (NA, K, CL, CO2, GLUCOSE, Medica l Branch BUN, CREATININE, CA) CBC WITH DIFF 2022-05-15 09:46:00 [facility] BASIC MET[facility]OLIC PANEL 2022-05-14 08:30:00 [facility] ([facility], K, CL, CO2, GLUCOSE, Medica l Branch BUN, CREATININE, CA) CBC WITH DIFF 2022-05-14 08:30:00 [facility] BASIC MET[facility]OLIC PANEL 2022-05-14 08:30:00 Molina Stovall [facility] (NA, K, CL, CO2, GLUCOSE, Medica l Branch BUN, CREATININE, CA) CBC WITH DIFF 2022-05-14 08:30:00 Molina Stovall [facility] SURGICAL PATHOLOGY EXAM 2022-05-13 16:29:00 Marybel Sexton [facility] FLEXIBLE SIGMOIDOSCOPY 2022-05-13 16:08:00 Marybel Sexton [facility] FLEXIBLE SIGMOIDOSCOPY 2022-05-13 16:08:00 Marybel Sexton [facility] FLEXIBLE SIGMOIDOSCOPY 2022-05-13 16:07:35 Brigido eric [facility] (ENDO) [facility] FLEXIBLE SIGMOIDOSCOPY 2022-05-13 16:07:35 Brigido eric [facility] (ENDO) [facility] HB ABO GROUPING 2022-05-13 11:11:00 Brigido [facility] HB ABO GROUPING 2022-05-13 11:11:00 Brigido [facility] BASIC METABOLIC PANEL 2022-05-13 08:57:00 [facility] (NA, K, CL, CO2, GLUCOSE, Medica l Branch BUN, CREATININE, CA) CBC WITH DIFF 2022-05-13 08:57:00 [facility] BASIC METABOLIC PANEL 2022-05-13 08:57:00 Molina Stovall [facility] (NA, K, CL, CO2, GLUCOSE, Medica l Branch BUN, CREATININE, CA) CBC WITH DIFF 2022-05-13 08:57:00 [facility] VITAMIN D, 25-OH 2022-05-12 13:31:00 Brigido [facility] VITAMIN D, 25-OH 2022-05-12 13:31:00 Brigido [facility] PHOSPHORUS 2022-05-12 12:20:00 Brigido [facility] MAGNESIUM 2022-05-12 12:20:00 Brigido [facility] VITAMIN B12, LEVEL 2022-05-12 12:20:00 Brigido eric [facility] C-REACTIVE PROTEIN 2022-05-12 12:20:00 Brigido eric [facility] THYROID STIMULATING 2022-05-12 12:20:00 Ferdinand Kelly [facility] COMP. METABOLIC PANEL 2022-05-12 12:20:00 Ferdinand Kelly [facility] ([id number]) Medical Branch LIPID PANEL ([id number])(TOTAL 2022-05-12 12:20:00 Ferdinand Kelly [facility] CHOLESTEROL, [facility] Branch TRIGLYCERIDES, HDL) N-TERMINAL PRO-BNP 2022-05-12 12:20:00 Ferdinand Kelly [facility] PHOSPHORUS 2022-05-12 12:20:00 Ferdinand Kelly [facility] MAGNESIUM 2022-05-12 12:20:00 Brigido eric [facility] VITAMIN B12, LEVEL 2022-05-12 12:20:00 Brigido eric [facility] C-REACTIVE PROTEIN 2022-05-12 12:20:00 Ferdinand Kelly [facility] THYROID STIMULATING 2022-05-12 12:20:00 Ferdinand Kelly [facility] HORMONE [facility] COMP. METABOLIC PANEL 2022-05-12 12:20:00 Ferdinand Kelly [facility] ([id number]) Medical Branch LIPID PANEL ([id number])(TOTAL 2022-05-12 12:20:00 Ferdinand Kelly [facility] CHOLESTEROL, [facility] TRIGLYCERIDES, HDL) N-TERMINAL PRO-BNP 2022-05-12 12:20:00 Ferdinand Kelly [facility] PROTHROMBIN TIME / INR 2022-05-12 12:19:00 Ferdinand Kelly [facility] PROTHROMBIN TIME / INR 2022-05-12 12:19:00 [facility] CBC WITH DIFF 2022-05-12 12:18:00 Brigido, [facility] CBC WITH DIFF 2022-05-12 12:18:00 Brigido [facility] XR KUB 2022-05-12 05:58:38 Brigido [facility] XR KUB 2022-05-12 05:58:38 Brigido [facility] SEDIMENTATION RATE 2022-05-12 02:23:00 Brigiod [facility] CALPROTECTIN, FECAL 2022-05-12 02:23:00 Brigido [facility] SEDIMENTATION RATE 2022-05-12 02:23:00 Brigido [facility] CALPROTECTIN, FECAL 2022-05-12 02:23:00 Brigido [facility] OCCULT (GUAIAC) BLOOD 2022-05-12 02:10:00 Brigido eric [facility] OCCULT (GUAIAC) BLOOD 2022-05-12 02:10:00 Ferdinand Kelly [facility] URINALYSIS 2022-05-11 19:42:00 Romie Lewsi [facility] CLOSTRIDIUM DIFFICILE 2022-05-11 19:42:00 Romie Lewis [facility] FECAL PATHOGENS BY PCR 2022-05-11 19:42:00 Ferdinand Kelly [facility] URINALYSIS 2022-05-11 19:42:00 Romie Lewis [facility] CLOSTRIDIUM DIFFICILE 2022-05-11 19:42:00 Romie Lewis [facility] FECAL PATHOGENS BY PCR 2022-05-11 19:42:00 Ferdinand Kelly [facility] LACTIC ACID WHOLE BLOOD 2022-05-11 19:12:00 Romie Lewis [facility] LACTIC ACID WHOLE BLOOD 2022-05-11 19:12:00 Romie Lewis [facility] BLOOD CULTURE SCREEN 2022-05-11 19:10:00 Romie Lewis [facility] LIPASE 2022-05-11 19:10:00 Joshua Romie [facility] COMP. METABOLIC PANEL 2022-05-11 19:10:00 Romie Lewis [facility] ([id number]) [facility] CBC WITH DIFF 2022-05-11 19:10:00 Joshua Romie [facility] GLYCOSYLATED HEMOGLOBIN 2022-05-11 19:10:00 Brigido [facility] ([facility]) [facility] BLOOD CULTURE SCREEN 2022-05-11 19:10:00 Romie Lewis [facility] acute hospital LIPASE 2022-05-11 19:10:00 Joshua Romie [facility] COMP. METABOLIC PANEL 2022-05-11 19:10:00 Romie Lewis [facility] ([id number]) [facility] CBC WITH DIFF 2022-05-11 19:10:00 Joshua [facility] GLYCOSYLATED HEMOGLOBIN 2022-05-11 19:10:00 Brigido eric [facility] ([facility]) [facility] BLOOD CULTURE SCREEN 2022-05-11 19:00:00 Romie Lewis [facility] BLOOD CULTURE SCREEN 2022-05-11 19:00:00 Romie Lewis [facility] CONSENT/REFUSAL FOR 2022-05-11 18:00:56 Doctor Unassigned, [facility]REFUSAL FOR 2022-05-11 18:00:56 Doctor Unassigned, [facility] DI[facility]IS [facility]REAT[facility] [place] [facility] CT ABDOMEN PELVIS W 2022-05-10 03:29:54 Constantino Okeefe [facility] CONTRAST [facility] HB ABO GROUPING 2022-05-10 02:49:00 Constantino Okeefe [facility] LIPASE 2022-05-10 02:48:00 Constantino Okeefe [facility] COMP. METABOLIC PANEL 2022-05-10 02:48:00 Constantino Okeefe [facility] ([id number]) [facility] CBC WITH DIFF 2022-05-10 02:48:00 Constantino Okeefe [facility] CONSENT/REFUSAL FOR 2022-05-10 01:33:55 Doctor Unassyessenia [facility] DIAGNOSIS AND TREATMENT [place] [facility] MAGNESIUM 2022-04-29 08:47:[address] [facility] FERRITIN SERUM 2022-04-29 08:47:[address] [facility] IRON 2022-04-29 08:47:[address] [facility] TOTAL IRON BINDING 2022-04-29 08:47:00 Cordell [facility] CAPACITY [facility] BASIC METABOLIC PANEL 2022-04-29 08:47:00 [facility] (NA, K, CL, CO2, GLUCOSE, Medica l Branch BUN, CREATININE, CA) CBC WITH DIFF 2022-04-29 08:47:[address] [facility] MAGNESIUM 2022-04-28 09:51:00 Jaci Estrella [facility] BASIC METABOLIC PANEL 2022-04-28 09:51:00 Jaci Estrella [facility] (NA, K, CL, CO2, GLUCOSE, Medica l Branch BUN, CREATININE, CA) CBC WITH DIFF 2022-04-28 09:51:00 Jaci Estrella [facility] C-REACTIVE PROTEIN 2022-04-28 01:53:00 Jaci Estrella [facility] CLOSTRIDIUM DIFFICILE 2022-04-28 01:46:00 Jaci Estrella [facility] TOXIN [facility] FECAL PATHOGENS BY PCR 2022-04-28 01:46:00 Jaci Estrella [facility] COVID-19 (ID NOW RAPID 2022-04-27 18:36:00 Viv Ventura [facility] TESTING) Medical Branch LAB ONLY COVID 2022-04-27 18:36:00 Viv Ventura [facility] INTERPRETATION [facility] CT ABDOMEN PELVIS W 2022-04-27 17:16:09 Viv Ventura [facility] CONTRAST [facility] ABORH CONFIRMATION (LAB 2022-04-27 16:40:00 Viv Ventura [facility] ONLY) Medical Branch URINALYSIS 2022-04-27 15:38:00 Viv Ventura [facility] LIPASE 2022-04-27 15:10:00 Viv Ventura Savi [facility] MAGNESIUM 2022-04-27 15:10:00 Viv Ventura Savi [facility] TROPONIN I 2022-04-27 15:10:00 Viv Ventura [facility] COMP. METABOLIC PANEL 2022-04-27 15:10:00 Viv Ventura [facility] ([id number]) [facility] CBC WITH DIFF 2022-04-27 15:10:00 Viv Ventura Savi [facility] PROTHROMBIN TIME / INR 2022-04-27 15:10:00 Viv Ventura [facility] ACTIVATED PARTIAL 2022-04-27 15:10:00 Viv Ventura [facility] THRMPLAS [facility] HB ECG ROUTINE & RHYTHM 2022-04-27 15:09:41 Vvi Ventura [facility] HB ABO GROUPING 2022-04-27 15:09:00 Viv Ventura [facility] NOTICE OF PRIVACY 2022-04-27 14:49:32 Doctor Nico, [facility] PRACTICES [place] [facility] [place] CONSENT/REFUSAL FOR 2022-04-27 14:49:05 Doctor Unamarialuisa, [facility] DIAGNOSIS [facility] TREAT[facility] [place] [facility] Encounters Start End Encounter Admission Attending Care Care Encounter Source Date/Time Date/Time Type Type Clinicians Facility Department ID 2022-02-10 [id number] [place] 11:33:[id number] [facility] 2022-01-25 Outpatient [facility] [id number] -2 [place] 15:47:[address] [facility] 2022-08-24 2022-08-24 Emergency X CRICKET [place] ERT [id number] [facility] 14:07:00 19:15:00 ELLI [facility] 2022-08-24 2022-08-24 Emergency Cricket MNPAY[place] [id number] [facility] 14:07:00 19:15:00 Elli INFANTE 350.1.13.10 i ty [facility] 4.2.7.2.686 [facility] [id number] [facility] 084 Branch 2022-07-02 2022-07-03 Emergency X KRYSTLE, [facility] ERT [id number] Univers 21:53:00 00:19:00 JUSTIN [facility] 2022-07-02 2022-07-03 Emergency [facility] [id number] Univers 21:53:00 00:19:00 Justin INFANTE 350.1.13.10 i ty [facility] 4.2.7.2.686 [facility] [id number] [facility] 084 Branch 2022-07-02 2022-07-02 Orders Doctor JESSEE [id number] Univers 00:00:00 00:00:00 Only Unassigned, NATE 350.1.13.10 [place]y [place] [facility] 4.2.7.2.686 Kartik [id number] [facility] 009 Branch 2022-05-11 2022-05-17 Outpatient [facility] [id number] Univers 13:03:00 14:23:00 RAYRAY [facility] 2022-05-11 2022-05-17 Emergency Romie Lewis [facility] 1.2.840. [id number] Univers 13:03:00 14:23:00 aJci Estrella 350.1.13.10 ity of ParkerRayray guptaJULIO 4.2.7.2.686 [facility] [id number] [facility] 081 Branch 2022-05-13 2022-05-13 Surgery Darshan, [facility] [id number] Univers 10:30:00 11:10:00 Marybel INFANTE 350.1.13.10 i ty of AMAURYJULIO 4.2.7.2.686 [facility] SURGICAL [id number] [facility] 020 Branch 2022-05-09 2022-05-09 Emergency X JAGDEEP [facility] ERT [id number] Univers 20:46:00 23:50:00 CONSTANTINO ity [facility] 2022-05-09 2022-05-09 Emergency [facility] [id number] Univers 20:46:00 23:50:00 Constantino INFANTE 350.1.13.10 ity of [place] 4.2.7.2.686 [facility] [id number] [facility] 084 Branch 2022-05-02 2022-05-02 Transition STEF Cochran 1.2.840.114 [id number] Univers 00:00:00 00:00:00 of Care Lana VILLANUEVA 350.1.13.10 ity of [place] 4.2.7.2.686 [facility] [id number] [facility] 403 Branch 2022-04-27 2022-04-29 Inpatient X [facility]LL [facility] [id number] Univers 09:54:00 13:15:00 DARRYN [facility] 2022-04-27 2022-04-29 [facility] Audrey [facility] 1.2.840.1 [id number] Univers 09:54:00 13:15:00 Encounter Jaci Estrella ARELIS 350.1.13.10 ity of [place] Landa 4.2.7.2.686 [facility] [id number] [place] [id number] [place] 2022-01-31 2022-01-31 Outpatient COH COH PIJFJJK QTO COH 00:00:00 00:00:00 -[id number] 2022-01-30 2022-01-30 Emergency E KRYS DANG [facility] [id number] 18:36:00 22:28:00 JOHN Lyons l 2022-01-29 2022-01-30 Emergency E MARIAELENA DANG [facility] [address] 21:25:00 00:58:00 GREGORIO Lyons l 2022-01-28 2022-01-28 Emergency E MARIAELENA DANG [facility] [id number] 11:02:00 14:55:00 GREGORIO Lyons l 2022-01-24 2022-01-27 Inpatient E AZAEL [address] 23:12:00 15:10:00 OBIORDevi manuel 2022-01-25 2022-01-25 Outpatient [facility] [id number] 25 [place] 18:30:00 18:30:00 Health 2022-01-25 2022-01-25 Outpatient [facility] PIJFJJK QTO [facility] 00:00:00 00:00:00 [id number] 1 Results Test Description Test Time Test Comments Results Result Comments Source COMP. METABOLIC PANEL ([id number]) 2022-08-24 22:30:45 Test Item Value Reference Range Interpretation Comme nts NA (test code = 3221720214) 137 mmol/L 135-145 K (test code = 3169076635) 4.1 mmol/L 3.5-5.0 CL (test code = 6472130206) 105 mmol/L 98-108 CO2 TOTAL (test code = 26 mmol/L 23-31 0831319197) AGAP (test code = 0367076757) 2-16 BUN (test code = 7195200352) 10 mg/dL 7-23 GLUCOSE (test code = 4443072993) 95 mg/dL 70-110 CREATININE (test code = 0.93 mg/dL 0.60-1.25 1928003594) TOTAL BILI (test code = 0.5 mg/dL 0.1-1.3 6971464351) CALCIUM (test code = 1720452528) 8.8 mg/dL 8.6-10.6 T PROTEIN (test code = 7.1 g/dL 6.3-8.2 7433667450) ALBUMIN (test code = 7232177330) 4.0 g/dL 3.5-5.0 ALK PHOS (test code = 2638705906) 80 U/L 34-122 ALTv (test code = 1742-6) 19 U/L 5-50 AST(SGOT) (test code = 25 U/L 13-40 6302221895) eGFR (test code = 4579242720) mL/min/1.73m2 ROBERTO (test code = ROBERTO) Association [...] or urine or abnormalities in imaging tests). [facility] WITH [id number] 22:14:06 Test Item Value Reference Range Interpretation Comments WBC (test code = See_Comment [Automated 9990-2) message] The sy stem which generated this result transmitted reference range : 4.20 - 10.70 10*3/?L. The reference range was not used to interpret this result as normal/abnormal . RBC (test code = See_Comment H [Automated 309-8) message] The sy stem which generated this [...] (test code = 54.9 fL 38.5-51.6 H 36217-5) RDW-CV (test code = 21.0 % 12.1-15.4 H 788-0) PLT (test code = See_Comment H [Automated 777-3) message] The sy stem which generated this result transmitted reference range : 150 - 328 10*3/ ?L. The reference r carlota was not used to interpret this result as normal/abnormal . MPV (test code = 10.1 fL 9.8-13.0 42250-3) NRBC/100 WBC (test See_Comment [Automat ed code = 7644371032) message] The system which generated this result transmitted reference range : 0.0 - 10.0 /100 WBCs. The refer ence range was not u sed to interpret th is result as normal/abnormal . NRBC x10^3 (test code See_Comment [Auto mated = 1066260011) message] The s ystem which generated this result transmitted reference range : 10*3/?L. The reference range was not used to interpret this result as normal/abnormal . GRAN MAT (NEUT) % 52.4 % (test code = 770-8) IMM GRAN % (test code 0.30 % = 3060278116) LYMPH % (test code = 23.7 % 736-9) MONO % (test code = 15.7 % 5905-5) EOS % (test code = 6.3 % 713-8) BASO % (test code = 1.6 % 706-2) GRAN MAT x10^3(ANC) 3.94 10*3/uL 1.99-6.95 (test code = 8200153817) IMM GRAN x10^3 (test 0.00-0.06 code = 6692809135) LYMPH x10^3 (test code 1.78 10*3/uL 1.09-3.23 = 731-0) MONO x10^3 (test code 1.18 10*3/uL 0.36-1.02 H = 742-7) EOS x10^3 (test code = 0.47 10*3/uL 0.06-0.53 711-2) BASO x10^3 (test code 0.12 10*3/uL 0.01-0.09 H = 704-7) Lab Interpretation Abnormal (test code = 75080-4) [id number] 21:51:41 Test Item Value Reference Range Interpretation Comments LACTIC ACID (test code = 1.02 mmol/L 0.50-2.20 6626488864) Lab Interpretation (test code = Normal 29241-8) [facility] (31434[facility]2022-07-03 05:30:27 Test Item Value Reference Range Interpretation Comments NA (test code = 140 mmol/L 135-145 1066481311) K (test code = 4.2 mmol/L 3.5-5.0 5213688021) CL (test code = 105 mmol/L 98-108 7844034936) CO2 TOTAL (test code 30 mmol/L 23-31 = 3490280360) AGAP (test code = 2-16 9096102523) BUN (test code = 13 mg/dL 7-23 4191206370) GLUCOSE (test code = 92 mg/dL 70-110 8994689088) CREATININE (test code 0.89 mg/dL 0.60-1.25 = 7346384208) TOTAL BILI (test code 0.4 mg/dL 0.1-1.1 = 7521498075) CALCIUM (test code = 9.2 mg/dL 8.6-10.6 7574668612) T PROTEIN (test code 7.2 g/dL 6.3-8.2 = 3664807808) ALBUMIN (test code = 4.3 g/dL 3.5-5.0 2002988573) ALK PHOS (test code = 62 U/L 34-122 1595313493) ALTv (test code = 19 U/L 5-50 1742-6) AST(SGOT) (test code 32 U/L 13-40 = 3812303556) eGFR (test code = mL/min/1.73m2 7946465907) ROBERTO (test code = ROBERTO) Association of [...] or urine or abnormalities in imaging tests). [facility] WITH [id number] 04:54:46 Test Item Value Reference Range Interpretation Comments WBC (test code = See_Comment [Automated 7277-2) message] The sy stem which generated this result transmitted reference range : 4.20 - 10.70 10*3/?L. The reference range was not used to interpret this result as normal/abnormal . RBC (test code = See_Comment [Automated 646-8) message] The sy stem which generated this [...] RDW-SD (test code = 47.4 fL 38.5-51.6 55602-7) RDW-CV (test code = 18.8 % 12.1-15.4 H 788-0) PLT (test code = See_Comment H [Automated 777-3) message] The sy stem which generated this result transmitted reference range : 150 - 328 10*3/ ?L. The reference r carlota was not used to interpret this result as normal/abnormal . MPV (test code = 9.9 fL 9.8-13.0 17519-1) NRBC/100 WBC (test See_Comment [Automat ed code = 0885575668) message] The system which generated this result transmitted reference range : 0.0 - 10.0 /100 WBCs. The refer ence range was not u sed to interpret th is result as normal/abnormal . NRBC x10^3 (test code See_Comment [Auto mated = 6983404457) message] The s ystem which generated this result transmitted reference range : 10*3/?L. The reference range was not used to interpret this result as normal/abnormal . GRAN MAT (NEUT) % 52.0 % (test code = 770-8) IMM GRAN % (test code 0.30 % = 7167549223) LYMPH % (test code = 28.1 % 736-9) MONO % (test code = 16.8 % 5905-5) EOS % (test code = 1.6 % 713-8) BASO % (test code = 1.2 % 706-2) GRAN MAT x10^3(ANC) 3.91 10*3/uL 1.99-6.95 (test code = 6267672583) IMM GRAN x10^3 (test 0.00-0.06 code = 3640419328) LYMPH x10^3 (test code 2.11 10*3/uL 1.09-3.23 = 731-0) MONO x10^3 (test code 1.26 10*3/uL 0.36-1.02 H = 742-7) EOS x10^3 (test code = 0.12 10*3/uL 0.06-0.53 711-2) BASO x10^3 (test code 0.09 10*3/uL 0.01-0.09 = 704-7) Lab Interpretation Abnormal (test code = 70492-8) [facility] [id number] 15:55:55 Test Item Value Reference Range Interpretation Comments Case Report (test code Surgical Pathology ? ? = 6473000820) ?Case: [id number] ? Authorizing Provider: ?Marybel Sexton MD ? ? ? Collected: ? 05/13/2022 1129 ?Ordering Location: ? ? [facility] ? ? ?Received: ?05/13/2022 1621 ? [facility] Center ?Pathologist: ? Coleen Rosario MD ? Specimens: ? A) - LARGE INTESTINE, LEFT-DESCENDING COLON, random biopsies ? B) - LARGE INTESTINE, SIGMOID COLON, random biopsies ? C) - RECTUM, Random biopsies ? Final Diagnosis (test v2oeuQFyHXPkn9vxYXDazA code = 8215536851) FuZzEwMzNcZnRuYmpcdWMx IHtccnRmMVxlcGljMTAxMD RaEV0biYdxmEk6wZgwPDFt bkE2oCHdRBxut9ryNLV5s3 ifilsvUBVhGOxdBi1stNQe qQgpNxSiLUMpJYc7oD50ZA EfeD8bwEBrOCn3XWGamNZo yuCxUfMoNACsgAQlpNO4VT ZwZJ9dlxsxSYokVEycQYRv nxU6VTUzmOFzF9NqZPMuOA 3zzfqjVJC4IDyqKFJoXEI8 JkIgMGDkv6Eqcwd3UhVicK FyZFxwbGFpblxmczIwXHBh axlaqTP5VNxdyK86SIFltF zeBSToQPWkRQFVHN7ONHVU HSIODKENI8FDCcOYVxivGB KDQfFDUXVZAT0TL3b5CMzd JJFpeNsuTKNyYVxvjQ5zWA FiLDUsLDSLVR7GXDHxLPZQ C2GZWFvVXQpvPNxQHKIbBR NYBNXMAQJOIfjnH5XFFXNv GHMBW7IHOivgRI0XRtYJJ1 DMLReMKHOZL1XKMMDTRZCB VElDXHBhciAgICAgICAgSU 5WQQbITqGLUQOAThZOML6A JfJsPCLSCVHQHNisKQ6XFL VPNRZMYVOSS5hRCDQULCNR YVzdTSiAHL8MJLfSDbayF0 9IE1oOPRNDRMJVDAWVDMfd YXIgICAgICAgIFNFVkVSRU xZIEFDVElWRSBDSFJPTklD IENPTElUSVNccGFyICAgIC 3mWq2cV8GESyDBJ11IOY5P DHSBW1KISDWAQPKLJIIOIP lGSUVEIFxwYXJccGFyXGxp TSGjJTUjOHZ1SGahiB80AZ AcAh6nZ22HI43lMUIES97U GRXrEQZIDqDRCZALGR9MA3 h6HGeyLAJbjHkeHIUrKFmv iW5uAHVaAI9cY69PN92OWj QDPRCEE4GbP8gITHECLBLU QobhV3KDYPTYUPgCRZRMSu lQVCBBQlNDRVNTLCBJTkNS RUFTRUQgTFlNUEhPUExBU0 8DH1gZTMRtzSKdSOSiTSWn MX7XGRdPLkVNWDXIGfOWGB 3EGvCmIEOTNSFVQVsiHC7H RDYMANYPVQMLR7gYLCHWLR GSGPgkAQbUGH5DLSsJPpge H5KJPGBrACWHSTMLAFKarJ YaCHYwPYHmR42KK2sNICAA VCBXSVRIIFNFVkVSRUxZIE FDVElWRSBDSFJPTklDIENP KZpGMLSkzGRvXLVhVF9kCj 2oN4KXNbSDS07FUK2GGZWQ R9PPZJMZRBNGSSQKKZzYDV VEIFxwYXJccGFyXGxpNDUw AKDcSIU7PYeqeI68DBCyHx 0wKuELRPRFMEZFFV9XB00j QklPUFNZOiBccGFyXGxpMF xmaTBcbGluMCAgICAtIENP KS4NLKBoAHLQG8BTWZgGSL ggVUxDRVIsIENSWVBUSVRJ YagcI2NEBJSvHXIKG4ZMPt ejSG9DCpRFO3NPYYrZKWPD X8VCBEXAHXITUAeERTFkou AgICAgIElORklMVFJBVEUg LR7rLNVMYI9LWYWZY4GTGZ EsIEFORCBDUllQVCBBUkNI RYMCT0AWHaCNOADWB2KKDi MBR67dCNCHNWLUILDFL0Ax W2HRIXtsUQXzTIBwTNOYT3 7TLJUYNB4LNLxVEDudN1YX RVJFTFkgQUNUSVZFIENIUk 2GMSRpHCFSW3IXZKwXGHKb sfYwKLAyTJ0HZGyJGO4LTV 9NQSBPUiBEWVNQTEFTSUEg SURFTlRJRklFRCBccGFyXH EfsydcbqLtTGbuHix4CYUu KOdpQR0yWILCYJJbFD3gIC 2gWCVqIJx3VEizJM0zfSXm OWAbwyScGuMcDPogTHV0o1 xydGYxXHNzdGVjZjIyMDAw UCCyf2mcKBJisFJgVoPnJx NcZnRuYmpcdWMxXGRlZmYw h6jqp734iVGva7dxDCExLw C0kMCuPRHfkHttpza3yDcz LiJhTDHum3meygRfYqYxCB ZxLPXwJXUxdRWeU658ROAs OWoiw6lzb1HpYLZcqWSba7 Y0JQBGTQgiNrNhS893s0wk u4zbtkVeuHU8AOWaAIC4TI brymPxiyU4BSvfbFBzAhV6 IDtccmVkMFxncmVlbjBcYm o0QVYbT701NCC4qZtzf1vg HBY1JYSyUXVgKzqfUl2xdD YfL274LSTgZXYTRRKryGl8 BZElilEpsuTosSCPd060H2 31m6qdXQHycvLovLaMxehk o9fbK929TCCfaIXcsqQbTe CbZUIesKWpoOX8LNKfSR8a qdabXIbqXFwpGVDzruP5CM JdcGEhX2SnMFTwHE2rcxph WYI4XLjjSXZxQXN1GxDjDQ Cxh7Tmcxh7HhJtez0nan33 FKV6m4DobIjjEKW6FMU2Re BeEd3zjAFzMGNwJW5nQpLv bHCcLANrxd76oBlqWHuwiy HomP6cTaHmVXHrgXEbOQPj OG6qcFGaSFIfuC6fjschNW BnYnJkcmhlYWRccGdicmRy Op4qaLfcOBC0IXziZ3xwfE 3rXjB9LUajO7wbsT8rUFu3 NEeexEK3MFApeT8xOU5odc eyj7bdANasVAvwGXQvkoQ6 fuJ2FJRweNJdU5HcsX8yKO QyJE5xlkmiy6aqHZN3CGin WTGfFOB1ArKtNVVln7Hiif e5KdJmb3YbiAOcLLuzK03s c978VOGmktIxS7gssNYdod blaRCktqauNLquetQ1ILDy XHBsYWluXGYxXGZzMjBcbG FuZzEwMzNcaGljaFxmMVxk QwZjHNHkSUcoF9skCsIpI0 YyXGZzMjBccGFyIEkgaGF2 CBQbCKRrk60wgOk6UJZaau xej4OcCRFtmIYayZXljV6j moVww7teUSJpKPMbEDVwH0 XcYTA6qOWtUCDlxXQchNI6 PT9oblEbJA2lJSYrMqdfrh AfmSUexqVwTPRkJRbog9eo IP1tLAXdoBeooO8fzHE7MB Rjb3kjtVTjkOJbz3yju2Sv bmFtZShzKSBtYXkgYXBwZW KlVH8aGQZpzDWrlxUiz8L6 MfcwvVXqvmyuVbtoviU9DB wljvezCPGtDXwfA8bhEgMy SGKafJrmTgnmo4NbXAPqDD ZzMjhccGFyfX0= Final Diagnosis Comment a3fkcMKsRWJyeIZgBMPyR0 (test code = cunbFcHWTubNOzD1Dffaqw [id number]) VLsaOO6tJY7ogOaydTThyO YwDHCwZzWge8gqz056gPPn c2epYYAKwswuyOt5kSjyU0 5ng7O0DketQ84baRZdDOF8 OFJhBULyjBKiMHHfNSQ8RQ PnkHNsF2ymGNXcTF3ftfmw RBivEGisRHQyuIK6LUQigM KxG8GnFNOqYXudCIUfjrz3 BmGwRy4obMPzdMjoNWboZE JkXHBsYWluXGZzMjAgRHIu AMLadDAlIOPyjvD5bJX6ZX IkzUydFWIzy4XeTZ6qKLUd dhP5ulHoj1w7xQQ2kYMnND inI71un7srUxZjPFRblq7= Clinical Information colitis (test code = [id number]) Gross Description (test z4httWGeAMDbmONBMSQcAT code = [id number]) QdOB5fyFgbkWr4jRioHJQx iwI1lCFzQUlsn4wtYKF4w7 llbiANClxkZWZmMVxwYXBl dxbyLfO1HQynINUobujyFR t7NRlsALStvXY2DOFtuDYi D5GoDTShNI0jrbc1IXP8PO bbMSQbGjY5ENPvYjUtFnsr USz2KZNndtH1Psq4PJUaUH EwhFXaz2C6VXmbgimeANRc zVZtA088RUakt2FooSFwFU pccGFyZCANCntcKlxlcGlj m3YwgWGsWBltVRLeEGGaBN qnnnoxZAv6NATnYZjlrCAn ST5voUzxQlqxbGbkq4BmtT BcXGlkIDUxMDAyIFxcZGIg YO4QVfNtGPL5EMniHtcxVD w9JSq9KT6VSeGmVOEsYTEn UjY4AQUgBIy3HSyhGE3HAV K4BRI3BBO8VEEsVPKdQnew SKa5UBYnVEfaEEVmuPVqNQ ukUdZxLUYjBXaqxPCwSF9q fVxwbGFpblxmczIwIFNQRU POSXNPCBZijDMaJV0OWTGc YElcYAQyvHOJCUM2WV0qZJ ANClxsdHJwYXJcbGluMFxy qN5mTK0TBGa7bmFrYJPfSi GxB2KwD4jbBS3cSHBfofSl HXJvnHRqVDOhhoAaf6JaLM nkqwNlHVLpwHcaRSE2eZJa RXRiJJUkNCFaEP98ASkOFO MgbmFtZSwgVUggbnVtYmVy IGBgIGxhcmdlIGludGVzdG cbQErdeNPbtPXeMXNgEI8p rC1tNQIdOE7js56lKdlaaE XsPSZhR6R3TNgMYDGpsgJb P61it6knlRDqh3QmlGHckO lwbGUgdGFuLXBpbmsgaXJy NLm2eIZbPSPqXfKluHmom3 IwRASdPPnfJA83tiHjCO9t LTAuMyBjbSBncmVhdGVzdC CsfQ3hfsVzf72tLFSbLIS1 GPFkPWV5HCXuTRMxcXSlgf RnM5skVZbqxMPrReLXyZEw n0XpJ5zzHU6hoTKtCczxuB QmFPKzaWieb3GxdNLwUCHa o5MryAYqJHdxJH7yZET3Gf 7whKAkRVCotpS9w4IcQLxo QUFqCwlhfV5cROzpnX6cVZ 7TIKSboNQULBE4HW4oDNv7 UWdiLQZhH0DiT8RpzqEucI EzBATdwmAqw5hzOUL1RQOs qMXzrZRnQdUhHzktUIX7UN ZaRRlwBC1Hz8prCLFppUQq EXI1AOnosKXiWKOgUIPzWN muQwYaR9CLGMNuHyv7UxX1 TRZiWWk9GBnsK5OQBFXaGS GxUrJ8YKT9XpX8GUr9QRLC Km1uPAP5CXWgPtNrTFV9YS EzOSBcXHQgMiBcXGYgQXJp YWwgXFxmcyAxMCBcXGZsIF acgyI7IMTtYZscJDXjHyHh D0TYP8oUVS4vDukjWZLwSF wirHtgyZ6zHMFuB86yf9PO p8NyUU4ULEu9mkJztjvegB 0oIEVrjtKzLAsriJBvI6ak AbWuEbTDiCTrzM8czvGXJC sjEWInJ1GklkShIUjjWWTi tf3xoDoyHLtwYzKddLSjLB dpdGggdGhlIHBhdGllbnRc D0V3nvLdCQ5iQMDJAAGogX 7vTVNvFIHdkHQsL3KdhW32 UDN8mF5yBRLhfUdld7syYR CdnF3xMMGsBD1yv46qNijq hPBcJKPoY2H0JOxSFJEmav MoW67mx9eglIVkj8YqnVEl dGlwbGUgdGFuLXllbGxvdy DxhcDmL7CqAMSmh94guGR5 kSIwbYKuPqZsZ90zcuJxAH lbZyNsGQ8tPUVbOGciXFdr WDP1MHH8IMAguXUag2vxke rfBR3vXApyVG38SVgvVP6g QQLsWDltETNcY3PwT7I6AK itMJUoQIFjyFFdlF4whiLb opXjyGa3DZYkNYQ0zVLlrM rhWTXmOanyqZZ9VLMzUeIt syCpz3FgyIw0bBGzVBnyQE OfnC9vwV6oAcHuDWpmimRc VCpvvuTyAClaQVBmE02pt3 RRd7QhYEKle5fbhWhaq6Yw dGVuZFxwYXJccGFyZFxzbC 0nElVbx0neyOq9SAbdnaG0 UZDvoq8jlMopsQ0zNNj9EW muLBRdJ0CxY2CaGRtsHRL2 MTAwMiBcXGRiICBPVlIgIi EzKCX1SAD6EpT8JVx2GPLV NhYmDbKvWgVsTVM7IlfmAM z6TQj7RRcVMeQhAxH9TCC1 OMMiPUL3ZSP5SYwcqGWzSN xcZiBBcmlhbCBcXGZzIDEw BOnaQidgDFgfE19reQflpC 3zZtDhCGYYYDSJTD1CLiOE XHBhciANClxwbGFpblxlcG ljTmVzdERvYzEgDQpcbHRy cGFyXGxpbjBccmluMCANCl xsdHJjaFxmczIyIFNwZWNp gBTuUBWkjPWflpFdBJf3DP KanZ8wLo9gcVDsxF0njBSb LGhuZYOet5n4hGQ8eBVikU H2qINdmIzeGsCdKN7zoCKv OFEHNR37jZTkunEwYZFsKX S6wY3iCWXwopPocFCvqE8h f3spv7djHbOoD6J3HZGeFM Qmr09fdAP1dtRdUuW3HYBn pbOoheWcG3VwTPPhu48guC C2nRRcrPHzLlRvO22mzgDj UMisXoMvKH4cXUDjESuhFE spLUM7NHZ0EUQznHRye0zy hehcIO55JNheGC4iPGzvYJ 8lIASgHDctVWYgO5VgB3Z4 DSznGBLhSAXhwFPsdC3wlw MtriZokOm1ESHqIPZ2mITt eZnoUZTiXswifEA4INXqNc EogaZyg0WhfMl5tPMmSIew QMUdyY2nxQ8oFrGcQRieqx UgXGxpbmUgSnVsaWUgTWNJ gXiobqS4PUTBTBNxZXUKCS kNClxlcGljTmVzdERvYzBc raY0LFIhcHSbNLE5JF6hXE CyhgoaKKNvNVGdMCE8WAbf iT17eUTaEKAjDULijAAafW iseWLdtjMUFbvoeU0hRgOb a1isuAa6KAUJLquasBAzaz ekzvZ0NQUym7ojdSrmw8Kp wRUkKW3qoQzxpW5eQsOeDn ANCn0= Disclaimer (test code = r2aliXApQCVpf0oyQPVohU [id number]) FuZzEwMzNcZnRuYmpcdWMx YYbjnuJgMTtcr7XrI1MiMt AwMFxhbnNpXGRlZmxhbmcx XJBzFVZ7rqSeUBDuLMudJO YjWXuoFw5lvAYbbDdrWiXq TBZre7ewreDCGWogOpTyT9 46OXBuGJxdi1fvb5PkSSBs tKWpq0N4TTNMqrryuDf2wU meU05vc1F5IkjpI0ovCDGb KBMjK1SnJD0dEBRlCxu2IR P7MUV1BHKuQCQqU7SeYG5z QJAsbVQnPKx1o5arxXiaEU XvVKB2e8hsCTplqsVsQC9j ei2uqEx8h7wgheHrQVFcVD PlkHGPODPgB6SrcEmmFx3m hNm2kSekMrdqBRL5Cbp8AI 4pje04iuf6lYqtQPUboyvx GjA0TAfqWOHbvkqjXNm9RG diZNTszPW1ZBXcxBDkB4Gk FEAiWF1twry3SIT7AVxlWY LdSoZ0JINozBJuHKPcgOlg RRvuf367VBA8KeRrTZ5rS8 Ain7T6xS7alZXlTRFotZYp AlXtUNGkaf1gkXWgSUztt8 LsZSO5iqC3iDMsmKRpXWRt IG04Notry0KqTnwzl1FrP5 5clSJ3RZclh3yzEK4qWoY9 xfJbJOwnu1ozjE2sSeK7UD thTV3rYB6kFOIjmB9htspz XHBnYnJkcmhlYWRccGdicm XxEt4wjShfJTK9MSgkD4ug oZ0eXmO3SFrqA3lamY8xLB e5QVmdzPE6XOOknS3oVO1y cxfeh0zhIEwvSFyyCHYpaf E6yjQ0WIStzDYuW8MbsO7t BNJiVB4vhkoon2geOLU2ON ncDVGlPES5RqSwTLNde5Yp fku3WeTpo2AbvYRaJSkeK7 1ok886EOXnmzLqB7zunLBf kbmbpPSvstqbLWhierP0OL DpqsDti0UsPPLaRNI2OSeb SJoayUEsQGZrqRlxz5awO7 RscGFyXHBsYWluXGYxXGZz MjBcbGFuZzEwMzNcaGljaF tvDRveKeIxAWLzXEnaL1xp BnRkO2JpRYNfWwNcvBMhL8 ggVGhpcyByZXBvcnQgbWF5 MJdvZ4a0CVJfyoNriNp5oi XaMrKwBGMzWDE3UVeomMKn ECZqd5SohdcauVZdSn5poS ZrIERczM1fUPQbUDSqAAzc YF0otDq9YCRHgQNcsTKoVe ABZLGvRZ80cwMzKQOGjgso o5N0ZIofGFTtd0QdcIOyU3 ddq2OhCJKtk72bTU9jr8K3 p4xkJNS6CD9uq9HeIKVbiC KpkONtZGZtx6Dsiolgp8Ci GBVtbdHsv3DfTAGxofZmdR GhZIOoonPhfl3jmgAmZWHf LYMtT3EfcamtkHgfbsOeUB Rqeq1lwzZzTKO4JIZXIHBi UMRug6UhiC6eiKCYSMQ4nZ Gpdr8vseQPpKGsIYJskm82 ZAIvHQ8dV0bmYYIpZCCocr DloKMyk0ZqEBEwgUX9fJAf CL3UKaVBa92wHGGtJTBZct NaFXIokRvjlVL7ksB9rX7p IChGREEpLlx+IFRoZSBGRE GaOL8koqGru8CqwkIlqTde UFDneFWti2KtoGMzv3BzqP stm1UuyAMnwWWlOJ9bWXEt clxwYXIgVVRNQiBMYWJvcm P6h9WaPMHmWDCmLPE4jSrb ehh9RVUngE9hLVZnI5hpno uaPFeqRSTmw0MhaU7grIAM eFUdd8GmqIUbwPNBhXSpWO 3luuIkLGtDTSsPUDT1tpOw RGVff6WkJOmvL4olI34kbN xizPd8zKV6IXO0sU1pGdy+ IFxwYXJccGFyIEFwcHJvcH AbQWRwbObdtpCcZ2RztmBu kW9cbOFlmhQbRS6zKB0qX8 F2kPIgBBYvvdIfm9ryQQgh dmUgYmVlbiByZXZpZXdlZC Vox6FtEMuzOQS4RDudyeIg bmNsdWRpbmcgSCZFLCBTcG OkyAIyZPJ0DEiospSijdHv DM6snN4wgNfdlB3yvIPfiS I8yhlzLOJxPAJmaKsuLBZd SH8euZMaLJZujoOJhEsocY NkbB1dH0MrCTCuGHDrbi3g DVIsvS6bYSdxh0BdpulxIP VhPDCoXQDipzSsfx2vOMYp iTBYXK3LZOwmzWXmd9Hjvl ArC3bGWIZ9RAVlXmVsTmsw SLPbjKTufYAyVRHnhr69MW MihD7jgWyaCARgaH3nfM0s nQrcrM5aGrBvPpUnYDqpZU 7fNYZyA2yakLXoUGWqPUFl G9qtPwBxnU6wkGdzZSzfCk DvLeCeTZdoJCZ3tU== Embedded Images (test code = 7691380711) [facility] Culture - Peripheral # [id number] 20:01:59 Test Item Value Reference Range Interpretation Comments Blood Culture-Aerobic No organisms No growth Previo us (test code = 45029-5) isolated prelim inary verified result was Culture [...] Culture-Anaerobic isolated preliminar y (test code = 73462-1) verifi ed result was Culture In Progress [...] CDT Lab Interpretation Normal (test code = 26990-2) [facility] Culture - Peripheral # [id number] 20:01:59 Test Item Value Reference Range Interpretation Comments Blood Culture-Aerobic No organisms No growth Previo us (test code = 49930-0) isolated prelim inary verified result was Culture [...] Culture-Anaerobic isolated preliminar y (test code = 55598-6) verifi ed result was Culture In Progress [...] CDT Lab Interpretation Normal (test code = 31105-9) [facility] Culture - Peripheral # [id number] 20:01:59 Test Item Value Reference Range Interpretation Comments Blood Culture-Aerobic No organisms No growth Previo us (test code = 81676-4) isolated prelim inary verified result was Culture [...] Culture-Anaerobic isolated preliminar y (test code = 50896-7) verifi ed result was Culture In Progress [...] CDT Lab Interpretation Normal (test code = 67662-3) [facility] Culture - Peripheral # [id number] 20:01:59 Test Item Value Reference Range Interpretation Comments Blood Culture-Aerobic No organisms No growth Previo us (test code = 45698-4) isolated prelim inary verified result was Culture [...] Culture-Anaerobic isolated preliminar y (test code = 88758-1) verifi ed result was Culture In Progress [...] CDT Lab Interpretation Normal (test code = 51931-5) [facility] Rout[facility] 2022-05-13 13:43:26 Test Item Value Reference Range Interpretation Comments ABO & RH (test code O Positive Performe d at [facility] = 20) Laboratory [facility] Bank[address] [place], [place] [address]Toll Free: [phone] A No. [id number] IAT (test code = Negative Performed a t [facility] 1185) Laboratory [facility] [place], [place] [address]Toll Free: [phone] A No. [id number] [facility]00 Routine 2022-05-13 13:43:26 Test Item Value Reference Range Interpretation Comments ABO & RH (test code O Positive Performe d at [facility] = 20) Laboratory [facility] [place], [place] [id number] Free: [phone] A No. [id number] IAT (test code = Negative Performed a t [facility] 1185) Laboratory [facility] [place] [address]Uuqs Free: [phone] A No. [id number] [facility], [id number] 22:16:10 Test Item Value Reference Range Interpretation Comments VIT B12 (test code = 603 pg/mL 240-930 [id number]) ROBERTO (test code = ROBERTO) Biotin has been reported to cause a positive bias, interpret results relative to patient's use of biotin. Lab Interpretation (test Normal code = 72911-8) [facility], [id number] 22:16:10 Test Item Value Reference Range Interpretation Comments VIT B12 (test code = 603 pg/mL 240-930 [id number]) ROBERTO (test code = ROBERTO) Biotin has been reported to cause a positive bias, interpret results relative to patient's use of biotin. Lab Interpretation (test Normal code = 13179-6) [facility], [id number] 21:50:29 Test Item Value Reference Range Interpretation Comments VIT D 25OH (test code = 25-80 L 84623-9) ROBERTO (test code = ROBERTO) Deficiency: <20 ng/mLInsufficiency: 20-24 ng/mLOptimal: 25-80 ng/mL Lab Interpretation (test Abnormal code = 19526-7) [facility], [id number] 21:50:29 Test Item Value Reference Range Interpretation Comments VIT D 25OH (test code = 25-80 L 36241-6) ROBERTO (test code = ROBERTO) Deficiency: <20 ng/mLInsufficiency: 20-24 ng/mLOptimal: 25-80 ng/mL Lab Interpretation (test Abnormal code = 61203-2) [facility] [id number] 18:56:01 Test Item Value Reference Range Interpretation Comments CRP (test code = 0.9 mg/dL See_Comment H [Automated message] [id number]) The system [employer] generated this result transmit eunice reference range : <=0.8. The refe rence range was not u sed to interpret th is result as normal/abnormal . Lab Interpretation (test Abnormal code = 48251-3) [facility] [id number] 18:56:01 Test Item Value Reference Range Interpretation Comments CRP (test code = 0.9 mg/dL See_Comment H [Automated message] 1233491219) The system [employer] generated this result transmit eunice reference range : <=0.8. The refe rence range was not u sed to interpret th is result as normal/abnormal . Lab Interpretation (test Abnormal code = 59294-1) [facility] [id number] 13:43:08 Test Item Value Reference Range Interpretation Comments TSH (test code = See_Comment H [Automated message] [id number]) The system [employer] generated this result transmitted ref erence range: 0.45 - 4 .70 mIU/L. The refe rence range was not u sed to interpret this result as normal/abnor mal. Lab Interpretation (test Abnormal code = 09206-8) [facility] [id number] 13:43:08 Test Item Value Reference Range Interpretation Comments TSH (test code = See_Comment H [Automated message] 3640549915) The system [employer] generated this result transmitted ref erence range: 0.45 - 4 .70 mIU/L. The refe rence range was not u sed to interpret this result as normal/abnor mal. Lab Interpretation (test Abnormal code = 38622-2) [facility] [id number] 13:21:44 Test Item Value Reference Range Interpretation Comments NT-proBNP (test code 54 pg/mL See_Comment [Autom ated = 7640258088) message] The system which generated this result transmitted reference range : <=125. The reference range was not used to interpret this result as normal/abnormal . ROBERTO (test code = ROBERTO) Biotin has been reported to cause a negative bias, interpret results relative to patient's use of biotin. Lab Interpretation Normal (test code = 42893-9) [facility] [id number] 13:21:44 Test Item Value Reference Range Interpretation Comments NT-proBNP (test code 54 pg/mL See_Comment [Autom ated = 4655422616) message] The system which generated this result transmitted reference range : <=125. The reference range was not used to interpret this result as normal/abnormal . ROBERTO (test code = ROBERTO) Biotin has been reported to cause a negative bias, interpret results relative to patient's use of biotin. Lab Interpretation Normal (test code = 37650-1) [facility] ([facility])(TOTAL CHOLESTEROL, TRIGLYCERIDES, HDL)2022-05-12 13:12:48 Test Item Value Reference Range Interpretation Comments CHOL (test code = 124 mg/dL 120-200 8021771278) HDL (test code = 27 mg/dL See_Comment L [Automated message] 3905176724) The system [employer] generated this result transmit eunice reference range : >=40. The refer ence range was not u sed to interpret th is result as normal/abnormal . HDLC RATIO (test code = See_Comment [Au tomated message] 2164284395) The system [employer] generated this result transmit eunice reference range : <=5.0. The refe rence range was not u sed to interpret th is result as normal/abnormal . TRIG (test code = 104 mg/dL 30-170 6021778556) LDL CHOL (test code = 76 mg/dL See_Comment [Auto mated message] 80643-3) The system [employer] generated this result transmit eunice reference range : <=160. The refe rence range was not u sed to interpret th is result as normal/abnormal . VLDL (test code = 21 mg/dL 5-60 4574361679) Lab Interpretation (test Abnormal code = 92725-7) [facility] (38772)(TOTAL CHOLESTEROL, TRIGLYCERIDES, HDL)2022-05-12 13:12:48 Test Item Value Reference Range Interpretation Comments CHOL (test code = 124 mg/dL 120-200 1501287126) HDL (test code = 27 mg/dL See_Comment L [Automated message] 0349590629) The system [employer] generated this result transmit eunice reference range : >=40. The refer ence range was not u sed to interpret th is result as normal/abnormal . HDLC RATIO (test code = See_Comment [Au tomated message] 5696810592) The system [employer] generated this result transmit eunice reference range : <=5.0. The refe rence range was not u sed to interpret th is result as normal/abnormal . TRIG (test code = 104 mg/dL 30-170 7390229343) LDL CHOL (test code = 76 mg/dL See_Comment [Auto mated message] 93425-1) The system [employer] generated this result transmit eunice reference range : <=160. The refe rence range was not u sed to interpret th is result as normal/abnormal . VLDL (test code = 21 mg/dL 5-60 7572234095) Lab Interpretation (test Abnormal code = 93529-9) [facility] 13:12:47 Test Item Value Reference Range Interpretation Comments MAGNESIUM (test code = 8873981856) 1.8 mg/dL 1.7-2.4 Lab Interpretation (test code = Normal 66302-3) [facility] 13:12:47 Test Item Value Reference Range Interpretation Comments MAGNESIUM (test code = 4899327215) 1.8 mg/dL 1.7-2.4 Lab Interpretation (test code = Normal 19455-2) [facility]OL[facility] PAN[facility] (35726)2022-05-12 13:12:27 Test Item Value Reference Range Interpretation Comments NA (test code = 139 mmol/L 135-145 5836867719) K (test code = 3.5 mmol/L 3.5-5 0697443620) CL (test code = 106 mmol/L 98-108 6218611529) CO2 TOTAL (test code = 27 mmol/L 23-31 6502809748) AGAP (test code = 2-16 5806860241) BUN (test code = 7 mg/dL 7-23 5832045779) GLUCOSE (test code = 87 mg/dL 70-110 1886121728) CREATININE (test code = 0.89 mg/dL 0.6-1.25 9245692957) TOTAL BILI (test code = 0.3 mg/dL 0.1-1.3 9489046188) CALCIUM (test code = 8.4 mg/dL 8.6-10.6 L 0842300701) T PROTEIN (test code = 6.7 g/dL 6.3-8.2 5247774052) ALBUMIN (test code = 3.5 g/dL 3.5-5 0157217884) ALK PHOS (test code = 81 U/L 34-122 2415093538) ALTv (test code = 13 U/L 5-50 1742-6) AST(SGOT) (test code = 22 U/L 13-40 8957285761) eGFR (test code = mL/min/1.73m2 1993472057) ROBERTO (test code = ROBERTO) Association of [...] tests). Lab Interpretation Abnormal (test code = 34476-2) [facility] 13:12:27 Test Item Value Reference Range Interpretation Comments PHOSPHORUS (test code = 8177956283) 3.8 mg/dL 2.5-5 Lab Interpretation (test code = Normal 59150-8) [facility] (58196)2022-05-12 13:12:27 Test Item Value Reference Range Interpretation Comments NA (test code = 139 mmol/L 135-145 9274915653) K (test code = 3.5 mmol/L 3.5-5 2665600303) CL (test code = 106 mmol/L 98-108 3121096891) CO2 TOTAL (test code = 27 mmol/L 23-31 5736201135) AGAP (test code = 2-16 2470611255) BUN (test code = 7 mg/dL 7-23 2908185476) GLUCOSE (test code = 87 mg/dL 70-110 8463630559) CREATININE (test code = 0.89 mg/dL 0.6-1.25 9029267445) TOTAL BILI (test code = 0.3 mg/dL 0.1-1.5 5561390894) CALCIUM (test code = 8.4 mg/dL 8.6-10.6 L 4658542498) T PROTEIN (test code = 6.7 g/dL 6.3-8.2 9855970374) ALBUMIN (test code = 3.5 g/dL 3.5-5 5086833684) ALK PHOS (test code = 81 U/L 34-122 7909803056) ALTv (test code = 13 U/L 5-50 1742-6) AST(SGOT) (test code = 22 U/L 13-40 8577193886) eGFR (test code = mL/min/1.73m2 8680567531) ROBERTO (test code = ROBERTO) Association of [...] tests). Lab Interpretation Abnormal (test code = 13069-1) [facility] 13:12:27 Test Item Value Reference Range Interpretation Comments PHOSPHORUS (test code = 3242793950) 3.8 mg/dL 2.5-5 Lab Interpretation (test code = Normal 22472-7) [facility] [id number] 13:09:25 Test Item Value Reference Range Interpretation [...] RDW-SD (test code = 39.2 fL 38.5-51.6 45306-5) RDW-CV (test code = 14.7 % 12.1-15.4 788-0) PLT (test code = See_Comment H [Automated 777-3) message] The sy stem which generated this result transmitted reference range : 150 - 328 10*3/ ?L. The reference r carlota was not used to interpret this result as normal/abnormal . MPV (test code = 10.1 fL 9.8-13 20285-9) NRBC/100 WBC (test See_Comment [Automat ed code = 3779308347) message] The system which generated this result transmitted reference range : 0.0 - 10.0 /100 WBCs. The refer ence range was not u sed to interpret th is result as normal/abnormal . NRBC x10^3 (test code See_Comment [Auto mated = 4684719500) message] The s ystem which generated this result transmitted reference range : 10*3/?L. The reference range was not used to interpret this result as normal/abnormal . GRAN MAT (NEUT) % 46.1 % (test code = 770-8) IMM GRAN % (test code 0.10 % = 4445170004) LYMPH % (test code = 33.9 % 736-9) MONO % (test code = 11.8 % 5905-5) EOS % (test code = 6.3 % 713-8) BASO % (test code = 1.8 % 706-2) GRAN MAT x10^3(ANC) 3.27 10*3/uL 1.99-6.95 (test code = 3749414425) IMM GRAN x10^3 (test 0-0.06 code = 9345750975) LYMPH x10^3 (test code 2.41 10*3/uL 1.09-3.23 = 731-0) MONO x10^3 (test code 0.84 10*3/uL 0.36-1.02 = 742-7) EOS x10^3 (test code = 0.45 10*3/uL 0.06-0.53 711-2) BASO x10^3 (test code 0.13 10*3/uL 0.01-0.09 H = 704-7) Lab Interpretation Abnormal (test code = 94578-0) [facility] WITH [id number] 13:09:25 Test Item Value Reference Range Interpretation Comments WBC (test code = See_Comment [Automated 0690-2) message] The sy stem which generated this result transmitted reference range : 4.20 - 10.70 10*3/?L. The reference range was not used to interpret this result as normal/abnormal . RBC (test code = See_Comment L [Automated 929-8) message] The sy stem which generated this [...] RDW-SD (test code = 39.2 fL 38.5-51.6 44948-4) RDW-CV (test code = 14.7 % 12.1-15.4 788-0) PLT (test code = See_Comment H [Automated 777-3) message] The sy stem which generated this result transmitted reference range : 150 - 328 10*3/ ?L. The reference r carlota was not used to interpret this result as normal/abnormal . MPV (test code = 10.1 fL 9.8-13 34035-6) NRBC/100 WBC (test See_Comment [Automat ed code = 0989027246) message] The system which generated this result transmitted reference range : 0.0 - 10.0 /100 WBCs. The refer ence range was not u sed to interpret th is result as normal/abnormal . NRBC x10^3 (test code See_Comment [Auto mated = 2227440879) message] The s ystem which generated this result transmitted reference range : 10*3/?L. The reference range was not used to interpret this result as normal/abnormal . GRAN MAT (NEUT) % 46.1 % (test code = 770-8) IMM GRAN % (test code 0.10 % = 8488188726) LYMPH % (test code = 33.9 % 736-9) MONO % (test code = 11.8 % 5905-5) EOS % (test code = 6.3 % 713-8) BASO % (test code = 1.8 % 706-2) GRAN MAT x10^3(ANC) 3.27 10*3/uL 1.99-6.95 (test code = 7815246144) IMM GRAN x10^3 (test 0-0.06 code = 6185211036) LYMPH x10^3 (test code 2.41 10*3/uL 1.09-3.23 = 731-0) MONO x10^3 (test code 0.84 10*3/uL 0.36-1.02 = 742-7) EOS x10^3 (test code = 0.45 10*3/uL 0.06-0.53 711-2) BASO x10^3 (test code 0.13 10*3/uL 0.01-0.09 H = 704-7) Lab Interpretation Abnormal (test code = 34616-5) [facility] / [id number] 13:06:44 Test Item Value Reference Range Interpretation Comments PROTIME PATIENT (test See_Comment H [Auto mated message] code = 5964-2) The system [employer] generated this result transmitted ref erence range: 12.0 - 1 4.7 Seconds. The reference range was not used to int erpret this result as normal/abnormal . INR (test code = 6301-6) Nor mal INR <1.1; Warfarin Therap eutic range 2.0 to 3. 0 or 2.5 to 3.5, dep ending upon the indica tions. Lab Interpretation (test Abnormal code = 79417-3) [facility] / [id number] 13:06:44 Test Item Value Reference Range Interpretation Comments PROTIME PATIENT (test See_Comment H [Auto mated message] code = 5964-2) The system [employer] generated this result transmitted ref erence range: 12.0 - 1 4.7 Seconds. The reference range was not used to int erpret this result as normal/abnormal . INR (test code = 6301-6) Nor mal INR <1.1; Warfarin Therap eutic range 2.0 to 3. 0 or 2.5 to 3.5, dep ending upon the indica tions. Lab Interpretation (test Abnormal code = 09576-3) [facility]SEDIMENTATION [id number] 02:59:10 Test Item Value Reference Range Interpretation Comments ESR (test code = See_Comment H [Automated message] 71551-3) The system [employer] generated this result transmitted ref erence range: 0 - 10 m m/HR. The reference r carlota was not used to interpret this result as normal/abnor mal. Lab Interpretation (test Abnormal code = 21095-6) [facility]SED[facility] [id number] 02:59:10 Test Item Value Reference Range Interpretation Comments ESR (test code = See_Comment H [Automated message] 19899-9) The system [employer] generated this result transmitted ref erence range: 0 - 10 m m/HR. The reference r carlota was not used to interpret this result as normal/abnor mal. Lab Interpretation (test Abnormal code = 53544-0) [facility]GLOB[facility] (A1C)2022-05-12 02:20:40 Test Item Value Reference Range Interpretation Comments HGB A1C (test code = 6.1 % 4-5.7 H 4548-4) ROBERTO (test code = ROBERTO) Reference RangesNormal: <5.7%Prediabetes: 5.7 - 6.4%Diabetes: > 6.5% Lab Interpretation (test Abnormal code = 61665-1) [facility] (A1C)2022-05-12 02:20:40 Test Item Value Reference Range Interpretation Comments HGB A1C (test code = 6.1 % 4-5.7 H 4548-4) ROBERTO (test code = ROBERTO) Reference RangesNormal: <5.7%Prediabetes: 5.7 - 6.4%Diabetes: > 6.5% Lab Interpretation (test Abnormal code = 19444-2) [facility] (48106)2022-05-11 19:45:12 Test Item Value Reference Range Interpretation Comments NA (test code = 139 mmol/L 135-145 0023347445) K (test code = 4.1 mmol/L 3.5-5 6094611336) CL (test code = 105 mmol/L 98-108 2817186327) CO2 TOTAL (test code 24 mmol/L 23-31 = 9891633936) AGAP (test code = 2-16 5971934298) BUN (test code = 8 mg/dL 7-23 6112931981) GLUCOSE (test code = 84 mg/dL 70-110 7793785404) CREATININE (test code 0.93 mg/dL 0.6-1.25 = 5489375646) TOTAL BILI (test code 0.3 mg/dL 0.1-1.1 = 6725984470) CALCIUM (test code = 9.4 mg/dL 8.6-10.6 2410696035) T PROTEIN (test code 7.3 g/dL 6.3-8.2 = 1877636463) ALBUMIN (test code = 4.0 g/dL 3.5-5 2002752375) ALK PHOS (test code = 85 U/L 34-122 3297356753) ALTv (test code = 14 U/L 5-50 1742-6) AST(SGOT) (test code 21 U/L 13-40 = 6400255100) eGFR (test code = mL/min/1.73m2 1668444241) ROBERTO (test code = ROBERTO) Association of [...] or abnormalities in imaging tests). [facility]. METABOLIC PANEL (84874)2022-05-11 19:45:12 Test Item Value Reference Range Interpretation Comments NA (test code = 139 mmol/L 135-145 8783304914) K (test code = 4.1 mmol/L 3.5-5 2193732148) CL (test code = 105 mmol/L 98-108 0614420895) CO2 TOTAL (test code 24 mmol/L 23-31 = 7464210282) AGAP (test code = 2-16 8818298107) BUN (test code = 8 mg/dL 7-23 3907259553) GLUCOSE (test code = 84 mg/dL 70-110 7275513351) CREATININE (test code 0.93 mg/dL 0.6-1.25 = 1442969840) TOTAL BILI (test code 0.3 mg/dL 0.1-1.1 = 6389787018) CALCIUM (test code = 9.4 mg/dL 8.6-10.6 3450965926) T PROTEIN (test code 7.3 g/dL 6.3-8.2 = 2516161093) ALBUMIN (test code = 4.0 g/dL 3.5-5 5178719039) ALK PHOS (test code = 85 U/L 34-122 1602137096) ALTv (test code = 14 U/L 5-50 1742-6) AST(SGOT) (test code 21 U/L 13-40 = 2787577031) eGFR (test code = mL/min/1.73m2 3813273104) ROBERTO (test code = ROBERTO) Association of [...] or urine or abnormalities in imaging tests). [facility] Test Item Value Reference Range Interpretation Comments LIPASE (test code = 7974826046) 116 U/L 0-220 Lab Interpretation (test code = Normal 50583-4) [facility] Test Item Value Reference Range Interpretation Comments LIPASE (test code = 9209305222) 116 U/L 0-220 Lab Interpretation (test code = Normal 28740-9) [facility] WITH [id number] 19:33:50 Test Item Value Reference Range Interpretation Comments WBC (test code = See_Comment [Automated 6690-2) message] The sy stem which generated this result transmitted reference range : 4.20 - 10.70 10*3/?L. The reference range was not used to interpret this result as normal/abnormal . RBC (test code = See_Comment [Automated 359-8) message] The sy stem which generated this [...] RDW-SD (test code = 38.9 fL 38.5-51.6 42468-9) RDW-CV (test code = 14.7 % 12.1-15.4 788-0) PLT (test code = See_Comment H [Automated 777-3) message] The sy stem which generated this result transmitted reference range : 150 - 328 10*3/ ?L. The reference r carl[place] was not used to interpret this result as normal/abnormal . MPV (test code = 10.1 fL 9.8-13 89619-1) NRBC/100 WBC (test See_Comment [Automat ed code = [id number]) message] The system which generated this result transmitted reference range : 0.0 - 10.0 /100 WBCs. The refer ence range was not u sed to interpret th is result as normal/abnormal . NRBC x10^3 (test code See_Comment [Auto mated = 5623898444) message] The s ystem which generated this result transmitted reference range : 10*3/?L. The reference range was not used to interpret this result as normal/abnormal . GRAN MAT (NEUT) % 50.3 % (test code = 770-8) IMM GRAN % (test code 0.00 % = 5264874649) LYMPH % (test code = 28.7 % 736-9) MONO % (test code = 13.9 % 5905-5) EOS % (test code = 5.3 % 713-8) BASO % (test code = 1.8 % 706-2) GRAN MAT x10^3(ANC) 3.14 10*3/uL 1.99-6.95 (test code = 0078407451) IMM GRAN x10^3 (test 0-0.06 code = 1430898679) LYMPH x10^3 (test code 1.79 10*3/uL 1.09-3.23 = 731-0) MONO x10^3 (test code 0.87 10*3/uL 0.36-1.02 = 742-7) EOS x10^3 (test code = 0.33 10*3/uL 0.06-0.53 711-2) BASO x10^3 (test code 0.11 10*3/uL 0.01-0.09 H = 704-7) Lab Interpretation Abnormal (test code = 64139-2) [facility] WITH [id number] 19:33:50 Test Item Value Reference Range Interpretation [...] RDW-SD (test code = 38.9 fL 38.5-51.6 03460-0) RDW-CV (test code = 14.7 % 12.1-15.4 788-0) PLT (test code = See_Comment H [Automated 777-3) message] The sy stem which generated this result transmitted reference range : 150 - 328 10*3/ ?L. The reference r carlota was not used to interpret this result as normal/abnormal . MPV (test code = 10.1 fL 9.8-13 91094-2) NRBC/100 WBC (test See_Comment [Automat ed code = 7888073022) message] The system which generated this result transmitted reference range : 0.0 - 10.0 /100 WBCs. The refer ence range was not u sed to interpret th is result as normal/abnormal . NRBC x10^3 (test code See_Comment [Auto mated = 8665434957) message] The s ystem which generated this result transmitted reference range : 10*3/?L. The reference range was not used to interpret this result as normal/abnormal . GRAN MAT (NEUT) % 50.3 % (test code = 770-8) IMM GRAN % (test code 0.00 % = 9110181001) LYMPH % (test code = 28.7 % 736-9) MONO % (test code = 13.9 % 5905-5) EOS % (test code = 5.3 % 713-8) BASO % (test code = 1.8 % 706-2) GRAN MAT x10^3(ANC) 3.14 10*3/uL 1.99-6.95 (test code = 3808976992) IMM GRAN x10^3 (test 0-0.06 code = 2669675690) LYMPH x10^3 (test code 1.79 10*3/uL 1.09-3.23 = 731-0) MONO x10^3 (test code 0.87 10*3/uL 0.36-1.02 = 742-7) EOS x10^3 (test code = 0.33 10*3/uL 0.06-0.53 711-2) BASO x10^3 (test code 0.11 10*3/uL 0.01-0.09 H = 704-7) Lab Interpretation Abnormal (test code = 18974-7) [facility] [id number] 03:41:38 Test Item Value Reference Range Interpretation Comments ABO & RH (test code O Positive Performe d at [facility] = 20) [facility] [place], [place] [address]Toll Free: [phone] A No. [id number] IAT (test code = Negative Performed a t [facility] 1185) [facility] [address] [place] [address]Dxfe Free: [phone] A No. [id number] [facility]OL[facility] ([id number])2022-05-10 03:15:48 Test Item Value Reference Range Interpretation Comments NA (test code = 135 mmol/L 135-145 3783983603) K (test code = 4.2 mmol/L 3.5-5 8284788469) CL (test code = 104 mmol/L 98-108 5830295335) CO2 TOTAL (test code = 23 mmol/L 23-31 8819913110) AGAP (test code = 2-16 1919796121) BUN (test code = 9 mg/dL 7-23 5793346289) GLUCOSE (test code = 100 mg/dL 70-110 0649339600) CREATININE (test code = 0.89 mg/dL 0.6-1.25 3624015340) TOTAL BILI (test code = 0.3 mg/dL 0.1-1.6 7052526841) CALCIUM (test code = 8.5 mg/dL 8.6-10.6 L 5480390039) T PROTEIN (test code = 6.6 g/dL 6.3-8.2 9673500010) ALBUMIN (test code = 3.6 g/dL 3.5-5 1270777616) ALK PHOS (test code = 80 U/L 34-122 3313221372) ALTv (test code = 13 U/L 5-50 1742-6) AST(SGOT) (test code = 22 U/L 13-40 8813454884) eGFR (test code = mL/min/1.73m2 3124831128) ROBERTO (test code = ROBERTO) Association of [...] tests). Lab Interpretation Abnormal (test code = 68567-0) [facility]15[facility]08 Test Item Value Reference Range Interpretation Comments LIPASE (test code = 3038198376) 105 U/L 0-220 Lab Interpretation (test code = Normal 70591-8) [facility] WITH [id number] 03:02:08 Test Item Value Reference Range Interpretation [...] (test code = 38.0 fL 38.5-51.6 L 08923-0) RDW-CV (test code = 14.9 % 12.1-15.4 788-0) PLT (test code = See_Comment H [Automated 777-3) message] The sy stem which generated this result transmitted reference range : 150 - 328 10*3/ ?L. The reference r carlota was not used to interpret this result as normal/abnormal . MPV (test code = 9.8 fL 9.8-13 29888-9) NRBC/100 WBC (test See_Comment [Automat ed code = 3147524667) message] The system which generated this result transmitted reference range : 0.0 - 10.0 /100 WBCs. The refer ence range was not u sed to interpret th is result as normal/abnormal . NRBC x10^3 (test code See_Comment [Auto mated = 2078641059) message] The s ystem which generated this result transmitted reference range : 10*3/?L. The reference range was not used to interpret this result as normal/abnormal . GRAN MAT (NEUT) % 51.8 % (test code = 770-8) IMM GRAN % (test code 0.40 % = 9848156774) LYMPH % (test code = 29.9 % 736-9) MONO % (test code = 10.2 % 5905-5) EOS % (test code = 5.8 % 713-8) BASO % (test code = 1.9 % 706-2) GRAN MAT x10^3(ANC) 4.17 10*3/uL 1.99-6.95 (test code = 0260791310) IMM GRAN x10^3 (test 0.03 10*3/uL 0-0.06 code = 8001406943) LYMPH x10^3 (test code 2.41 10*3/uL 1.09-3.23 = 731-0) MONO x10^3 (test code 0.82 10*3/uL 0.36-1.02 = 742-7) EOS x10^3 (test code = 0.47 10*3/uL 0.06-0.53 711-2) BASO x10^3 (test code 0.15 10*3/uL 0.01-0.09 H = 704-7) Lab Interpretation Abnormal (test code = 68638-3) [facility] [id number] 14:20:24 Test Item Value Reference Range Interpretation Comments CRP (test code = 1.3 mg/dL See_Comment H [Automated message] 0863812280) The system [employer] generated this result transmit eunice reference range : <=0.8. The refe rence range was not u sed to interpret th is result as normal/abnormal . Lab Interpretation (test Abnormal code = 86118-2) [facility] METABOLIC PANEL (NA, K, CL, CO2, GLUCOSE, BUN, CREATININE, CA)2022-04-28 11:21:59 Test Item Value Reference Range Interpretation Comments NA (test code = 134 mmol/L 135-145 L 5770095541) K (test code = 3.9 mmol/L 3.5-5 1159358013) CL (test code = 105 mmol/L 98-108 6948396728) CO2 TOTAL (test code = 26 mmol/L 23-31 8628614846) AGAP (test code = 2-16 4785355419) BUN (test code = 5 mg/dL 7-23 L 9678597139) GLUCOSE (test code = 76 mg/dL 70-110 1679919162) CREATININE (test code = 0.88 mg/dL 0.6-1.25 5767114537) CALCIUM (test code = 8.2 mg/dL 8.6-10.6 L 5077752111) eGFR (test code = mL/min/1.73m2 7529726299) ROBERTO (test code = ROBERTO) Association of [...] tests). Lab Interpretation Abnormal (test code = 58191-4) [facility] WITH [id number] 11:21:23 Test Item Value Reference Range Interpretation [...] RDW-SD (test code = 40.4 fL 38.5-51.6 97646-3) RDW-CV (test code = 15.3 % 12.1-15.4 788-0) PLT (test code = See_Comment H [Automated 777-3) message] The sy stem which generated this result transmitted reference range : 150 - 328 10*3/ ?L. The reference r carlota was not used to interpret this result as normal/abnormal . MPV (test code = 9.8 fL 9.8-13 60285-0) NRBC/100 WBC (test See_Comment [Automat ed code = 5202076343) message] The system which generated this result transmitted reference range : 0.0 - 10.0 /100 WBCs. The refer ence range was not u sed to interpret th is result as normal/abnormal . NRBC x10^3 (test code See_Comment [Auto mated = 1137419495) message] The s ystem which generated this result transmitted reference range : 10*3/?L. The reference range was not used to interpret this result as normal/abnormal . GRAN MAT (NEUT) % 51.9 % (test code = 770-8) IMM GRAN % (test code 0.50 % = 4741883819) LYMPH % (test code = 25.7 % 736-9) MONO % (test code = 17.4 % 5905-5) EOS % (test code = 3.2 % 713-8) BASO % (test code = 1.3 % 706-2) GRAN MAT x10^3(ANC) 3.09 10*3/uL 1.99-6.95 (test code = 6074070148) IMM GRAN x10^3 (test 0.03 10*3/uL 0-0.06 code = 4331825768) LYMPH x10^3 (test code 1.53 10*3/uL 1.09-3.23 = 731-0) MONO x10^3 (test code 1.04 10*3/uL 0.36-1.02 H = 742-7) EOS x10^3 (test code = 0.19 10*3/uL 0.06-0.53 711-2) BASO x10^3 (test code 0.08 10*3/uL 0.01-0.09 = 704-7) Lab Interpretation Abnormal (test code = 40221-8) [facility] 11:17:00 Test Item Value Reference Range Interpretation Comments MAGNESIUM (test code = 3431810727) 1.7 mg/dL 1.7-2.4 Lab Interpretation (test code = Normal 26352-5) [facility] ([facility] Only)2022-04-27 17:22:22 Test Item Value Reference Range Interpretation Comments ABO & RH (test code O Positive Performe d at [facility] = 20) [facility] [address] [place], [place] [address]Toll Free: [phone] A No. [id number] [facility] [id number] 16:14:13 Test Item Value Reference Range Interpretation Comments ABO & RH (test code O Positive Performe d at [facility] = 20) [facility] [place], [place] [address]Toll Free: [phone] A No. [id number] IAT (test code = Negative Performed a t [facility] 1185) [facility] [place], [place] [address]Toll Free: [phone] A No. [id number] [facility]ACTIVATED PARTIAL THRMPLAS [id number] 16:10:24 Test Item Value Reference Range Interpretation [...] seconds. Lab Interpretation Normal (test code = 70401-3) [facility] HospitalProthrombin Time / [id number] 16:08:28 Test Item Value Reference Range Interpretation [...] tions. Lab Interpretation (test Normal code = 44897-7) [facility]TR[facility] [id number] 15:53:25 Test Item Value Reference Interpretation Comments Range TROPONIN I (test See_Comment [Automated code = 6147614529) message] The system which generated this result [...] biotin. Lab Interpretation Normal (test code = 02679-5) [facility]. METABOLIC PANEL ([id number])2022-04-27 15:42:03 Test Item Value Reference Range Interpretation Comments NA (test code = 139 mmol/L 135-145 5488531224) K (test code = 4.1 mmol/L 3.5-5 5904719680) CL (test code = 105 mmol/L 98-108 3181860442) CO2 TOTAL (test code = 27 mmol/L 23-31 1460413936) AGAP (test code = 2-16 6589572023) BUN (test code = 6 mg/dL 7-23 L 0650254420) GLUCOSE (test code = 96 mg/dL 70-110 9035866136) CREATININE (test code = 0.87 mg/dL 0.6-1.25 7583608556) TOTAL BILI (test code = 0.3 mg/dL 0.1-1.2 3989379399) CALCIUM (test code = 9.1 mg/dL 8.6-10.6 9487167560) T PROTEIN (test code = 6.9 g/dL 6.3-8.2 3449826737) ALBUMIN (test code = 3.6 g/dL 3.5-5 0044101076) ALK PHOS (test code = 89 U/L 34-122 6275815801) ALTv (test code = 12 U/L 5-50 1742-6) AST(SGOT) (test code = 17 U/L 13-40 5738634048) eGFR (test code = mL/min/1.73m2 4493735510) ROBERTO (test code = ROBERTO) Association of [...] tests). Lab Interpretation Abnormal (test code = 11699-4) [facility] 15:42:03 Test Item Value Reference Range Interpretation Comments MAGNESIUM (test code = 8445468438) 1.9 mg/dL 1.7-2.4 Lab Interpretation (test code = Normal 93992-3) [facility] 15:42:03 Test Item Value Reference Range Interpretation Comments LIPASE (test code = 6598922465) 115 U/L 0-220 Lab Interpretation (test code = Normal 11356-9) [facility] WITH [id number] 15:32:42 Test Item Value Reference Range Interpretation [...] RDW-SD (test code = 39.8 fL 38.5-51.6 31487-1) RDW-CV (test code = 15.1 % 12.1-15.4 788-0) PLT (test code = See_Comment H [Automated 777-3) message] The sy stem which generated this result transmitted reference range : 150 - 328 10*3/ ?L. The reference r carlota was not used to interpret this result as normal/abnormal . MPV (test code = 9.5 fL 9.8-13 L 36118-7) NRBC/100 WBC (test See_Comment [Automat ed code = 6594847736) message] The system which generated this result transmitted reference range : 0.0 - 10.0 /100 WBCs. The refer ence range was not u sed to interpret th is result as normal/abnormal . NRBC x10^3 (test code See_Comment [Auto mated = 4950641046) message] The s ystem which generated this result transmitted reference range : 10*3/?L. The reference range was not used to interpret this result as normal/abnormal . GRAN MAT (NEUT) % 51.9 % (test code = 770-8) IMM GRAN % (test code 0.30 % = 2349160004) LYMPH % (test code = 31.1 % 736-9) MONO % (test code = 13.0 % 5905-5) EOS % (test code = 2.5 % 713-8) BASO % (test code = 1.2 % 706-2) GRAN MAT x10^3(ANC) 3.35 10*3/uL 1.99-6.95 (test code = 9184789276) IMM GRAN x10^3 (test 0-0.06 code = 1746305139) LYMPH x10^3 (test code 2.01 10*3/uL 1.09-3.23 = 731-0) MONO x10^3 (test code 0.84 10*3/uL 0.36-1.02 = 742-7) EOS x10^3 (test code = 0.16 10*3/uL 0.06-0.53 711-2) BASO x10^3 (test code 0.08 10*3/uL 0.01-0.09 = 704-7) Lab Interpretation Abnormal (test code = 49269-2) [facility]- [facility] 1 [id number] 08:28:00Patient Name: ALEX BURROUGHS Unit No: [id number] EXAMS: CPT: [id number] XR CHEST 1 V 46110 History: Chest pain CHEST 1 VIEW FINDINGS: The lung volumes are somewhat low. Mild subsegmental atelectasis ispresent in both lung bases. The heart size [...] (0831) BATCH NO: N/A Name: ALEX BURROUGHS [facility] Phys: Sky Starks MD [address] : 1975 Age: 44 Sex: [place] [address] Loc: NDENISHA Exam Date: 05/23/2019 Status: REG ERP: FAX: PAGE 1 Signed [id number] 07:18:00 Test Item Value Reference Range Interpretation Comments TROPONIN-I (test code = TROPI) <0.020 ng/mL 0.000-0.034 N BASIC METABOLIC [id number] 07:14:00 Test Item Value Reference Range Interpretation [...] mg/dL 8.5-10.5 N = CA) CBC W/AUTO [id number] 07:10:00 Test Item Value Reference Range Interpretation [...]
--- NOTE | 2022-10-20 20:11 | EDPHYS ---
Physician Documentation [facility] Name: Wicho Weeks Age: 47 yrs Sex: Male : 1975 Arrival Date: 10/20/2022 Time: 19:38 Bed 6 Private MD: ED Physician Alvarez Carlos Historical: - Allergies: 10/20 20:02 No Known Allergies; ll3 - Home Meds: 20:02 None [Active]; ll3 - PMHx: 20:02 Chronic Abdominal Pain; Colitis; GI Bleed; ll3 - PSHx: 20:02 Rectal abscess removal; ll3 - Immunization history:: Client reports having NOT received the Covid vaccine. - Social history:: Smoking status: Reported history of juuling and/or vaping. Vital Signs: 20:00 BP 128 / 93; Pulse 76; Resp 18 S; Pulse Ox 98% on R/A; ha1 20:01 BP 128 / 93; Pulse 89; Resp 18; Temp 98.4(O); Pulse Ox 99% on R/A; Weight 90.72 kg (R); ll3 Height 5 ft. 9 in. (R); Pain 10/10; 20:01 Body Mass Index 29.53 (90.72 kg, 175.26 cm) ll3 20:01 Pain Scale: Adult ll3 MDM: 20:05 Patient medically screened. snw Administered Medications: No medications were administered Disposition Summary: 10/20/22 20:10 Discharge Ordered Location: Home snw Condition: Stable snw Diagnosis - Crohn's disease, unspecified, without complications snw Followup: snw - With: Emergency Department - When: As needed - Reason: Worsening of condition Followup: snw - With: Private Physician - When: 2 - 3 days - Reason: Recheck today's complaints, Continuance of care, Re-evaluation by your physician Forms: - Medication Reconciliation Form snw - Thank You Letter snw - Antibiotic Education snw - Prescription Opioid Use snw Signatures: Natali Egan FNP-C FNP-Csnw Verito Flores RN RN ll3
--- NOTE | 2022-10-20 20:11 | ER ---
Nurse's Notes [facility] Name: Wicho Wekes Age: 47 yrs Sex: Male : 1975 Arrival Date: 10/20/2022 Time: 19:38 Bed 6 Private MD: Diagnosis: Crohn's disease, unspecified, without complications Presentation: 10/20 20:01 Chief complaint: Patient states: C/o rectal bleeding, abdominal pain 10/10, nausea, and ll3 diarrhea since yesterday. Coronavirus screen: Vaccine status: Patient reports being unvaccinated. diarrhea, muscle pain, nausea. Ebola Screen: No symptoms or risks identified at this time. Initial Sepsis Screen: Does the patient meet any 2 criteria? No. Patient's initial sepsis screen is negative. Does the patient have a suspected source of infection? No. Patient's initial sepsis screen is negative. Risk Assessment: Do you want to hurt yourself or someone else? Patient reports no desire to harm self or others. Onset of symptoms was October 19, 2022. 20:01 Method Of Arrival: Ambulatory ll3 20:01 Acuity: DRE 3 ll3 Historical: - Allergies: 20:02 No Known Allergies; ll3 - Home Meds: 20:02 None [Active]; ll3 - PMHx: 20:02 Chronic Abdominal Pain; Colitis; GI Bleed; ll3 - PSHx: 20:02 Rectal abscess removal; ll3 - Immunization history:: Client reports having NOT received the Covid vaccine. - Social history:: Smoking status: Reported history of juuling and/or vaping. Screenin:00 Abuse screen: Denies threats or abuse. Denies injuries from another. Nutritional ha1 screening: No deficits noted. Tuberculosis screening: No symptoms or risk factors identified. Assessment: 20:00 General: Appears comfortable, Behavior is calm, cooperative. Pain: Complains of pain in ha1 abdomen Pain does not radiate. Pain currently is 8 out of 10 on a pain scale. Quality of pain is described as crampy. Neuro: Level of Consciousness is awake, alert, obeys commands, Oriented to person, place, time, situation. Cardiovascular: Capillary refill < 3 seconds Patient's skin is warm and dry. Respiratory: Airway is patent Respiratory effort is even, unlabored, Respiratory pattern is regular, symmetrical. GI: Abdomen is flat, non-distended, Bowel sounds present X 4 quads. Abd is soft and non tender X 4 quads. Reports bloody stool. : No signs and/or symptoms were reported regarding the genitourinary system. Derm: Skin is pink, warm \T\ dry. Musculoskeletal: Circulation, motion, and sensation intact. Range of motion: intact in all extremities. Vital Signs: 20:00 BP 128 / 93; Pulse 76; Resp 18 S; Pulse Ox 98% on R/A; ha1 20:01 BP 128 / 93; Pulse 89; Resp 18; Temp 98.4(O); Pulse Ox 99% on R/A; Weight 90.72 kg (R); ll3 Height 5 ft. 9 in. (R); Pain 10/10; 20:01 Body Mass Index 29.53 (90.72 kg, 175.26 cm) ll3 20:01 Pain Scale: Adult ll3 ED Course: 19:38 Patient arrived in ED. ja2 19:42 Natali Egan FNP-C is PHCP. snw 19:42 Alvarez Carlos MD is Attending Physician. snw 20:00 Patient has correct armband on for positive identification. Placed in gown. Bed in low ha1 position. Call light in reach. Side rails up X 1. 20:02 Triage completed. ll3 20:02 Arm band placed on Patient placed in an exam room, on a stretcher, on pulse oximetry. ll3 20:05 Greta Wright, RODOLFO is Primary Nurse. ha1 Administered Medications: No medications were administered Outcome: 20:10 Discharge ordered by . snw Signatures: Natali Egan FNP-C COMMUNITY HEALTH SPECIALIST-Csnw Yanet [place] 2 Verito Flores RN RN 3 Greta Wright, RODOLFO RN ha1
[2022-10-20] MEDS ORDERED: METHYLPREDNISOLONE 125 MG INJ ONE (20:20)
[2022-10-20] MEDS ORDERED: PROMETHAZINE 25 MG TABLET ONE (20:21)
[2022-10-20] MEDS ORDERED: MESALAMINE 400 MG CAPSULE.DR PO ONE (20:32)
[2022-10-20 22:34] VITALS: BP 128/93
[2022-10-20 22:35] VITALS: TEMP 98.4; O2SAT 99
== END 2022-10-20 20:40 | disposition home or self-care (01) ==
LOC: ER 19:35
DX: K50.90 Crohn's disease, unspecified, without complications (principal)
CPT/HCPCS: 96372; 99283; J2930; Q0169

== ENCOUNTER 2023-02-15 20:18 | Emergency (ER) | payer SELFPAY ==
--- OUTSIDE RECORDS SUMMARY | 2023-02-15 20:25 | XMS REPORT | Continuity of Care Document ---
:1975 Author Organization [facility] t Address [address] [facility]. [address] [place] [address] Care Team Providers Name Role Phone RAYMUNDO TYE RAMIREZ Primary Care Physician Unavailable ANA PEACOCK Attending Clinician Unavailable Donna Iraheta Attending Clinician Unavailable Laureano Webster Attending Clinician Unavailable Dennis Bower II Attending Clinician Unavailable ELLI HARLEY Attending Clinician Unavailable Elli Harley DO Attending Clinician JUSTIN BAPTISTE Attending Clinician Unavailable Justin Baptiste MD Attending Clinician Doctor Unassigned, [place] Attending Clinician Unavailable RAYRAY WILLARD Attending Clinician Unavailable Romie Lewis MD Attending Clinician Jaci Estrella DO Attending Clinician Rayray Willard MD Attending Clinician Marybel Sexton MD Attending Clinician CONSTANTINO OKEEFE Attending Clinician Unavailable Constantino Okeefe MD Attending Clinician Lana Cochran LVN Attending Clinician DARRYN LANDA Attending Clinician Unavailable Viv Hyde Attending Clinician Darryn Landa MD Attending Clinician JOHN MARCANO Attending Clinician Unavailable GREGORIO FERRELL Attending Clinician Unavailable RJ ADDISON Attending Clinician Unavailable Physician, No Primary or Family Admitting Clinician UnavailLaureano Butts Admitting Clinician Unavailable ELLI HARLEY Admitting Clinician Unavailable [...] Univers stools stools 0-05 ity of 00:00: [address] Obesity Obesity Disease Active 2021-08 Univers (BMI (BMI 0-05 ity of 30-39.9) 30-39.9) 00:00: [address] Proctocoli Proctocoli Disease Active U nivers tis tis 9-21 ity of 00:00: [address] Allergies, Adverse Reactions, Alerts Allergy Allergy Status Severity Reaction(s) Onset Inactive Treating Comm ents Source Name Type Date Date Clinician No Known DA Active U [facility] 4[facility]17 [place] 00:[facility] are [facility] No Known DA Active U 2018-08 [facility] Allergie 0-17 [place] 00:[facility]: [facility] 00 are [facility] NO KNOWN Drug Active Univers ALLERGIE Class ity of S [facility] Social History Social Habit Start Date Stop Date Quantity Comments Source History of Passive smoker University of tobacco use [facility] Exposure to 2022-08-14 2022-08-24 Not sure University SARS-CoV-2 00:00:00 14:04:00 [facility] (event) [place] Alcohol intake 2022-08-24 2022-08-24 Ex-drinker [facility] 00:00:00 00:00:00 (finding) [facility] Education 2022-05-11 2022-05-11 [facility] 00:0000 00:00:00 [facility] Tobacco use and 2022-04-27 2022-04-27 Smokeless tobacco Un iversity of exposure 00:00:00 00:00:00 non-user [facility]igned At [birth year] [facility]00[facility]00 [facility] Smoking Status Start Date Stop Date Source Ex-smoker 2022-04-27 00:00:00 2022-04-27 00:00:00 [facility] Medications Ordered Filled Start Stop Current Ordering Indication Dosage Frequency Signature Comments Components Source Medication Medication Date Date Medication? Clinician (SIG) Name Name ketorolac 2022- No 15mg 15 mg, Unive rs (TORADOL) 08-25 Slow IV ity of injection 01:15: 00:23 Push, [place] 15 mg 00 :00 ONCE, 1 Medical dose, On Branch 08/24/22 at 1915, JANNA iopamidol 2022- No [id number] 105mL 105 mL, Univers (ISOVUE 08-25 Intravenou [...] Wed Branch 08/24/22 at 1700, JANNA ondansetron Yes [id number] 4mg Take 1 Univers 4 mg 1-18 tablet by ity of disintegrat 00:00: mouth [place] ing tablet 00 every 8 Medica l (eight) Branch hours as needed for Nausea and Vomiting (N/V). dicyclomine Yes [id number] 20mg Take 1 Univers 20 mg 1-18 [...] at 2230, 1 mL predniSONE 2021-08 Yes [id number] Take 1 po Univers 20 mg - tid x 2 ity of tablet 00:00: days, then 00 take 1 po Medical bid x 3 Branch days, then take 1 po daily x 5 days. predniSONE 2021-08 Yes [id number] Take 1 po Univers 20 mg - tid x 2 ity of tablet 00:00: days, then [place] 00 take 1 po Medical bid x 3 Branch days, then take 1 po daily x 5 days. famotidine 2021-08- No [id number] 20mg Take 1 Univers (PEPCID) 20 - 12-12 tablet by it y of mg tablet 00:00: 05:59 mouth in [place] 00 :00 the Medical morning Branch and 1 tablet in the evening. Do all this for 15 days. predniSONE 2021-08- No [id number] Take 1 po Univers 20 mg -02 07- tid x 2 ity of tablet 00:00: 00:00 [place], [place] 00 :[place] 1 po bid x Medical 3 days, Branch then 1 po daily x 5 days famotidine 2021-08- No [id number] 20mg Take 1 Univers (PEPCID) 20 09-01 tablet by it y of mg tablet 00:00: 00:00 mouth in [place] 00 :00 the Medical morning Branch and 1 tablet in the evening. Do all this for 15 days. predniSONE 2021-08- No [id number] Take 3 Univers 5 mg tablet 08-22-08 tablets by i ty of 00:00: 05:59 mouth [place] 00 :00 daily for Medical 7 days, Branch THEN 2 tablets daily for 7 days, THEN 1 tablet daily for 7 days. predniSONE 2021-08- No [id number] Take 3 Univers 5 mg tablet 08-22-08 tablets by i ty of 00:00: 05:59 mouth [place] 00 :00 daily for Medical 7 days, Branch THEN 2 tablets daily for 7 days, THEN 1 tablet daily for 7 days. predniSONE 2021-08- No [id number] Take 3 Univers 5 mg tablet 16 12-08 tablets by i ty of 00:00: 05:59 mouth [place] 00 :00 daily for Medical 7 days, Branch THEN 2 tablets daily for 7 days, THEN 1 tablet daily for 7 days. lactobacill 2021-08- No [id number] .5mg Take 1 Univers 0-12 02-10 tablet by ity of acidophilus 00:00: 05:59 mouth in [place] 00 :[address] [facility] for 120 days. lactobacill 2021-08- No [id number] .5mg Take 1 Univers us 0-12 02-10 tablet by ity of acidophilus 00:00: 05:59 mouth in [place] 00 :[address] [facility] for 120 days. lactobacill 2021-08- No [id number] .5mg Take 1 Univers us 0-12 02-10 tablet by ity of acidophilus 00:00: 05:59 mouth in [place] 00 :[address] [facility] for 120 days. lactobacill 2021-08- No [id number] .5mg Take 1 Univers us 0-12 02-10 tablet by ity of acidophilus 00:00: 05:59 mouth in [place] 00 :[address] [facility] for 120 days. predniSONE 2021-08- No [id number] Take 6 Univers 10 mg 0-12 11-17 [...] [place] mg 00 First dose Medical on [facility] 05/17/22 at 0900, Until Discontinu ed, Routine methylPREDN 2021-08 Yes 20mg 20 mg, Univ ers ISolone sod 0-08 Intravenou it y of succ 14:30: s, Q8H, [place] (SOLU-MEDRO 00 First dose Me dical L (PF)) on [facility] Branch injection 05/14/22 at 20 mg 0930, Until Discontinu ed, Routine methylPREDN 2021-08- No 20mg 20 mg, Uni vers ISolone sod 0-08 10-11 Intravenou i ty of succ 14:30: 13:41 s, Q8H, [place] (SOLU-MEDRO 00 :53 First dose Me dical L (PF)) on [facility] Branch injection 05/14/22 at 20 mg [...] No PRN, Unive rs (GAS RELIEF 0-07 10-07 Starting ity of (SIMETHICON 14:51: 16:50 on [...] No 500mg 500 mg, Un kar (VANCOCIN) 0-06 10-06 Oral, ONCE it y of capsule 500 04:45: 04:10 NOW, 1 [place] mg 00 :00 dose, On Medical Wed Branch 05/11/22 at 2345, JANNA
Fa culty member approving Non-formul lenny medication : FERDINAND FOFANA
Dedrick saad for non-formul lenny use: SPECIFIC INDICATION FOR NONFORMULA RY PRODUCT
Reason for Anti-Infec tive: Empiric Therapy for Suspected Infection< br>Empi kaity Therapy Site: Abdominal< br>Duratio n of therapy: 5 days vancomycin 2021-08 No 500mg 500 mg, Un kar (VANCOCIN) 0-06 10-06 Oral, ONCE it y of capsule 500 04:45: 04:10 NOW, 1 [place] mg 00 :00 dose, On Medical Wed Branch 05/11/22 at 2345, JANNA
Fa culty member approving Non-formul lenny medication : FERDINAND FOFANA
R saad for non-formul lenny use: SPECIFIC [...] on Mon Medical packet 1 05/11/22 at [facility] h Packet 2145, Until Discontinu ed, Routine cholestyram 2021-08 Yes 1{packe 1 Packet, Univers ine 0-06 t} Oral, BID, ity of (QUESTRAN) 02:45: First dose [place] 4 gram 00 on Mon Medical packet 1 05/11/22 at Bran h Packet 2145, Until Discontinu ed, Routine vancomycin 2021-08 No 500mg 500 mg, Un kar (FIRVANQ) 0-06 10-07 Oral, QID, ity of 50 mg/mL 02:45: 17:02 40 doses, [place] oral 00 :41 First dose Medical solution on Mon Branch 500 mg 05/11/22 at 2145, Last dose on 05/21/22 at 1600, Routine
Reason for Anti-Infec tive: Empiric Therapy for Suspected Infection< br>Empiric Therapy Site: Abdominal< br>Duratio n of therapy: 5 days vancomycin 2021-08 No 500mg 500 mg, Un kar (FIRVANQ) 0-06 10-07 Oral, QID, ity of 50 mg/mL 02:45: 17:02 40 doses, [place] oral 00 :41 First dose Medical solution on Mon Branch 500 mg 05/11/22 at 2145, Last dose on 05/21/22 at 1600, Routine
Reason for Anti-Infec tive: Empiric Therapy for Suspected Infection< br>Empiric Therapy Site: Abdominal< br>Duratio n of therapy: 5 days diphenhydrA 2021-08 Yes 25mg 25 mg, [facility] ers MINE 0-06 Intravenou ity of (BENADRYL) 02:25: s, Q4HPRN, [place] injection 39 Starting Medica l 25 mg on Mon Branch 05/11/22 at 2124, Until Discontinu ed, Routine, Itching diphenhydrA 2021-08 Yes 25mg 25 mg, Univ ers MINE 0-06 Intravenou ity of (BENADRYL) 02:25: s, Q4HPRN, [place] injection 39 Starting Medica l 25 mg on Mon Branch 05/11/22 at 2124, Until Discontinu ed, Routine, Itching morpHINE (2021-08 [...] Starting Medical on Mon Branch 05/11/22 at 205, Until Discontinu ed, Routine, Pain (scale 7-10) [...] ONCE, 1 Medical 25 mg dose, On Mon05/11/22 at 1645, STAT ondansetron 2021-08- No [...] ONCE, 1 Medical 75 mcg dose, On Mon05/11/22 at 1430, STAT ondansetron 2021-08- No 4mg 4 mg, Slow Univers (ZOFRAN 0-05 10-05 IV Push, ity of (PF)) 19:30: 19:38 ONCE, 1 [place] injection 4 00 :00 dose, On Medi miranda mg Mon05/11/22 at 1430, JANNA FENTanyl PF 2021-08- No 75ug 75 mcg, Un kar (SUBLIMAZE 0-05 10-05 Slow IV ity o f (PF)) 19:30: 19:40 Push, [place] injection 00 :00 ONCE, 1 Medical 75 mcg dose, On Branch Mon05/11/22 at 1430, STAT iopamidol 2021-08- No [id number] 75mL 75 mL, Univers (ISOVUE 0-04 10-04 Intravenou ity o f 370-500 mL) 03:45: 03:45 s, ONCE, 1 [place] injection 00 :00 dose, On Medica l 75 mL [facility] 05/09/22 at 2245, Routine FENTanyl PF 2021-08 No 75ug 75 mcg, Un kar (SUBLIMAZE 0-11 14- Slow IV ity o f (PF)) 03:30: 03:15 Push, [place] injection 00 :00 ONCE, 1 Medical 75 mcg dose, On [facility] 05/09/22 at 2230, Routine diphenhydrA 2021-08 No 25mg 25 mg, Uni vers MINE 0-11 14- Slow IV ity of (BENADRYL) 02:30: 03:12 Push, [place] injection 00 :00 ONCE, 1 Medical 25 mg dose, On [facility] 05/09/22 at 2130, STAT ondansetron 2021-08 No 4mg 4 mg, Slow Univers (ZOFRAN 0- IV Push, ity of (PF)) 02:15: 03:09 ONCE, 1 [place] injection 4 00 :00 dose, On Medi miranda mg [facility] 05/09/22 at 2115, JANNA ferrous 2021-08 No 325mg Take 325 Univ ers sulfate 325 0-03 10-03 mg by ity of mg (65 mg 20:43: 00:00 mouth in [place] iron) 33 :00 the Medical tablet morning. [place] mesalamine 2021-08 No [id number] 1.2g Take 1 Univers 1.2 gram EC 0-03 10-18 tablet by it y of tablet 00:00: 04:59 mouth [place] 00 :00 daily with Medical breakfast Branch for 14 days. mesalamine 2021-08 No [id number] 1.2g Take 1 Univers 1.2 gram EC 0-03 10-18 tablet by it y of tablet 00:00: 04:59 mouth [place] 00 :00 daily with Medical breakfast Branch for 14 days. mesalamine 2021-08 No [id number] 1.2g Take 1 Univers 1.2 gram EC [...] 250mg Take 250 Univers in HCl 250 -29 04- mg by ity of mg tablet 11:38: [...] Yes 1600mg 1,600 mg, Univers (ASACOL HD) - Oral, TID, it y of EC tablet 01:00: First dose [place] 1,600 mg 00 on [place] Medical 04/28/22 at [place] 1999, Until Discontinu ed, Routine
managing member approving Restricted medication : DARRYN LANDA acetaminoph Yes [id number] 1{tbl} Take 1 Un kar en-codeine 9-23 tablet by ity of (TYLENOL-CO 00:00: mouth [place] DEINE #3) 00 every 6 Medical 300-30 mg (six) Branch tablet hours as needed for Pain (scale 7-10). Indication s: acute pain mesalamine Yes [id number] 1.2g Take 1 U nivers 1.2 gram EC 9-23 tablet by ity of tablet 00:00: mouth [place] 00 daily with Medical breakfast. Branch vancomycin Yes [id number] 125mg Take 1 Univers 125 mg 9-23 capsule by ity of capsule 00:00: mouth 4 [place] 00 (four) Medical times Branch daily. mesalamine Yes [id number] 1.2g Take 1 U nivers 1.2 gram EC 9-23 tablet by ity of tablet 00:00: mouth [place] 00 daily with Medical breakfast. Branch vancomycin Yes [id number] 125mg Take 1 Univers 125 mg 9-23 capsule by ity of capsule 00:00: mouth [address] [place] [address] 00 (four) Medical times Branch daily. mesalamine Yes [id number] 1.2g Take 1 U nivers 1.2 gram EC 9-23 tablet by ity of tablet 00:00: mouth [place] 00 daily with Medical breakfast. Branch vancomycin Yes [id number] 125mg Take 1 Univers 125 mg 9-23 capsule by ity of capsule 00:00: mouth [address] [place] [address] (four) Medical times Branch daily. acetaminoph Yes [id number] 1{tbl} Take 1 Un kar en-codeine 9-23 tablet by ity of (TYLENOL-CO 00:00: mouth [place] DEINE #3) 00 every 6 Medical 300-30 mg (six) Branch tablet hours as needed for Pain (scale 7-10). Indication s: acute pain mesalamine Yes [id number] 1.2g Take 1 U nivers 1.2 gram EC 9-23 tablet by ity of tablet 00:00: mouth [place] 00 daily with Medical breakfast. Branch vancomycin Yes [id number] 125mg Take 1 Univers 125 mg 9-23 capsule by ity of capsule 00:00: mouth [address] [place] [address] 00 (four) Medical times Branch daily. mesalamine 2021- No [id number] 1.2g Take 1 Univers 1.2 gram EC 9-23 10-11 tablet by it y of tablet 00:00: 00:00 mouth [place] 00 :00 daily with Medical breakfast. Branch vancomycin 2021- No [id number] 125mg Take 1 Univers 125 mg 9-23 [...] (scale 7-10). Indication s: acute pain acetaminoph 2021- No [id number] 1{tbl} Take 1 U nivers en-codeine 04-29 tablet by ity of (TYLENOL-CO 00:00: 00:00 mouth [place] DEINE #3) 00 :00 every 6 Medical 300-30 mg (six) Branch tablet hours as needed for Pain (scale 7-10) for up to 7 days. Indication s: acute pain vancomycin 2021- No [id number] 125mg Take 1 Univers 125 mg 04-29 capsule by ity of capsule 00:00: 00:00 mouth 4 [place] 00 :00 (four) Medical times Branch daily for 9 days. mesalamine 2021- No [id number] 1.2g Take 1 Univers 1.2 gram EC [...] 04-27 Oral, ity of (TYLENOL 23:57: Q4HPRN, [place] #3) 300-30 43 Starting Medic al mg tablet 1 on Mon Branch tablet 04/27/22 at 1857, Until Discontinu ed, Routine, Pain (scale 4-6) enoxaparin Yes 40mg 40 mg, Unive rs (LOVENOX) 04-27 Subcutaneo ity of injection 22:00: us, DAILY, [place] 40 mg 00 First dose Medical on Mon Branch 04/27/22 at 1700, Until Discontinu ed, Routine cefTRIAXone 2021- No 1000mg 1,000 mg, Univers (ROCEPHIN) 04-27 IV ity of 1,000 mg in 20:00: 19:48 Piggyback, [place] NaCl 0.9% 00 :56 Q24H ABX, Medic [...] mg 03 :03 Starting Medical on Mon [place] 04/27/22 at 1353, Until Yue 04/28/22 at 1352, Routine, Pain (scale 7-10) acetaminoph Yes 650mg 650 mg, Un kar en 04-27 Oral, ity of (TYLENOL) 18:52: Q6HPRN, [place] tablet 650 36 Starting Medic al mg on Mon Branch 04/27/22 at 1352, Until Discontinu ed, Routine, Pain (scale 1-3) iopamidol 2021- No [id number] 70mL 70 mL, Univers (ISOVUE 04-27 Intravenou ity o f 370-500 mL) 18:15: 18:15 s, ONCE, 1 [place] injection 00 :00 dose, On Medica l 70 mL Mon [place] 04/27/22 at 1315, Routine hydrOXYzine 2021- No 25mg 25 mg, Uni vers (ATARAX) 04-27 Oral, ity of tablet 25 17:30: 17:29 ONCE, 1 [place] mg 00 :00 dose, On Medical Mon [place] 04/27/22 at 1230, JANNA ondansetron 2021- No 4mg 4 mg, Slow Univers (ZOFRAN 04-27 IV Push, ity of (PF)) 16:15: 16:13 ONCE, 1 [place] injection 4 00 :00 dose, On Medi miranda mg Wed Branch 04/27/22 at 1115, JANNA morpHINE (4 4mg 4 mg, Slow Univers mg/mL) 04-27 IV Push, ity of injection 4 16:15: 16:13 ONCE, 1 [place] mg 00 :00 dose, On Medical Wed Branch 04/27/22 at 1115, STAT Vital Signs Vital Name Observation Time Observation Value Comments Source Systolic blood 2022-08-25 01:11:00 148 mm[Hg] Univer sity of [facility] Diastolic blood 2022-08-25 01:11:00 98 mm[Hg] Unive rsity of [facility] Heart rate 2022-08-25 01:11:00 81 /min [facility] Respiratory rate 2022-08-25 01:11:00 16 /min [facility] Oxygen saturation in 2022-08-25 01:11:00 99 /min University of Arterial blood by [place] [employer] [facility] Pulse oximetry Branch Body temperature 2022-08-24 20:06:00 36.83 [place] [facility] Body height 2022-08-24 20:06:[address] [facility] Body weight 2022-08-24 20:06:[address] [facility] BMI 2022-08-24 20:06:00 29.53 kg/m2 [facility] Systolic blood 2022-07-03 06:00:00 134 mm[Hg] Univer sity of [facility] Diastolic blood 2022-07-03 06:00:00 84 mm[Hg] Unive rsity of [facility] Heart rate 2022-07-03 06:00:00 72 /min [facility] Respiratory rate 2022-07-03 06:00:00 18 /min [facility] Oxygen saturation in 2022-07-03 06:00:00 95 /min University of Arterial blood by [place] [employer] miranda Pulse oximetry Branch Body temperature 2022-07-03 03:50:00 37.39 Breann Univ ers[facility] [place] [facility] Body height 2022-07-03 03:50:00 175.3 cm [facility]i [facility] [place] [facility] Body weight 2022-07-03 03:50:00 90.719 kg [facility]i [facility] [place] [facility] BMI 2022-07-03 03:50:00 29.53 kg/m2 [facility] [place] [facility] Systolic blood 2022-05-17 16:43:00 128 mm[Hg] Univer sity of pressure [place] [facility] Diastolic blood 2022-05-17 16:43:00 72 mm[Hg] Unive rsity of pressure [place] [facility] Heart rate 2022-05-17 16:43:00 58 /min Universi ty [facility] [place] [facility] Body temperature 2022-05-17 16:43:00 35.83 Breann Univ ers[facility] [place] [facility] Respiratory rate 2022-05-17 16:43:00 18 /min Univ ers[facility] [place] [facility] Oxygen saturation in 2022-05-17 16:43:00 100 /min University of Arterial blood by [place] [employer] miranda Pulse oximetry Branch Body weight 2022-05-17 09:42:00 87 kg [facility]i ty [facility] [place] [facility] BMI 2022-05-17 09:42:00 28.32 kg/m2 [facility] [place] [facility] Body height 2022-05-11 22:16:00 175.3 cm Universi ty [facility] [place] [facility] Systolic blood 2022-05-13 14:58:00 128 mm[Hg] Univer sity of pressure [place] [facility] Diastolic blood 2022-05-13 14:58:00 80 mm[Hg] Unive rsity of pressure [place] [facility] Heart rate 2022-05-13 14:58:00 86 /min Universi ty [facility] [place] [facility] Body temperature 2022-05-13 14:58:00 37.67 Breann Univ ers[facility] [place] [facility] Respiratory rate 2022-05-13 14:58:00 18 /min Univ ers[facility] [place] [facility] Oxygen saturation in 2022-05-13 14:58:00 99 /min University of Arterial blood by [place] [employer] miranda Pulse oximetry Branch Body weight 2022-05-13 09:27:00 90.992 kg Universi ty [facility] [place] [facility] BMI 2022-05-13 09:27:00 28.32 kg/m2 [facility] [place] [facility] Body height 2022-05-11 22:16:00 175.3 cm [facility] [place] [facility] Heart rate 2022-05-10 04:12:00 73 /min [facility] [place] [facility] Body temperature 2022-05-10 04:12:00 36.5 Breann Univ ers[facility] [place] [facility] Oxygen saturation in 2022-05-10 04:12:00 97 /min University of Arterial blood by [place] [employer] miranda Pulse oximetry Branch Systolic blood 2022-05-10 04:00:00 133 mm[Hg] Univer sity of pressure [place] [facility] Diastolic blood 2022-05-10 04:00:00 79 mm[Hg] Unive rsity of pressure [place] [facility] Respiratory rate 2022-05-10 04:00:00 19 /min Univ ersity [facility] [place] [facility] Body height 2022-05-10 01:42:00 175.3 cm Universi ty of [place] [facility] [place] Body weight 2022-05-10 01:42:00 86.183 kg [facility] [place] [facility] BMI 2022-05-10 01:42:00 28.06 kg/m2 [facility] [place] [facility] Systolic blood 2022-04-29 17:14:00 132 mm[Hg] Univer sity of pressure [place] [facility] Diastolic blood 2022-04-29 17:14:00 98 mm[Hg] Unive rsity of pressure [place] [facility] Heart rate 2022-04-29 17:14:00 90 /min [facility]i [facility] [place] [facility] Body temperature 2022-04-29 17:14:00 36.28 Breann Univ ers[facility] [place] [facility] Respiratory rate 2022-04-29 17:14:00 18 /min Univ ers[facility] [place] [facility] Oxygen saturation in 2022-04-29 17:14:00 100 /min University of Arterial blood by [place] [employer] miranda Pulse oximetry Branch Body weight 2022-04-28 09:36:00 87.998 kg [facility]i [facility] [place] [facility] BMI 2022-04-28 09:36:00 28.65 kg/m2 [facility] [place] [facility] Body height 2022-04-27 21:57:00 175.3 cm [facility] [place] [facility] Procedures Procedure Date / Time Performing Clinician Source Performed COMP. METABOLIC PANEL 2022-08-24 21:45:00 Elli Harley [facility] ([id number]) Medical Branch CBC WITH DIFF 2022-08-24 21:45:00 Elli Harley [facility] LACTIC ACID WHOLE BLOOD 2022-08-24 21:45:00 Elli Harley [facility] CONSENT/REFUSAL FOR 2022-08-24 19:59:50 Doctor Unassigned, [facility] DIAGNOSIS AND TREATMENT [place] [facility] COMP. METABOLIC PANEL 2022-07-03 04:42:00 Justin Baptiste [facility] ([id number]) [facility] Branch CBC WITH DIFF 2022-07-03 04:42:00 Justin Baptiste [facility] CONSENT/REFUSAL FOR 2022-07-03 03:35:53 Doctor Unassigned, [facility] DIAGNOSIS AND TREAT[facility] [place] [facility] BASIC METABOLIC PANEL 2022-05-16 08:42:00 [facility], K, CL, CO2, GLUCOSE, Medica l Branch BUN, CREATININE, CA) CBC WITH DIFF 2022-05-16 08:42[facility] 2022-05-16 08:42:00 [facility] (NA, K, CL, CO2, GLUCOSE, Medica l Branch BUN, CREATININE, CA) CBC WITH DIFF 2022-05-16 08:42:00 [facility]IC PANEL 2022-05-15 09:46:00 [facility] (NA, K, CL, CO2, GLUCOSE, Medica l Branch BUN, CREATININE, CA) CBC WITH DIFF 2022-05-15 09:46:00 [facility]IC PANEL 2022-05-15 09:46:00 [facility] (NA, K, CL, CO2, GLUCOSE, Medica l Branch BUN, CREATININE, CA) CBC WITH DIFF 2022-05-15 09:46:00 [facility]OLIC PANEL 2022-05-14 08:30:00 Molina Stovall [facility] (NA, K, CL, CO2, GLUCOSE, Medica l Branch BUN, CREATININE, CA) CBC WITH DIFF 2022-05-14 08:30:00 Molina Stovall [facility] BASIC METABOLIC PANEL 2022-05-14 08:30:00 Molina Stovall [facility] (NA, K, CL, CO2, GLUCOSE, Medica l Branch BUN, CREATININE, CA) CBC WITH DIFF 2022-05-14 08:30:00 [facility] 2022-05-13 16:29:00 Marybel Sexton [facility] FLEXIBLE SIGMOIDOSCOPY 2022-05-13 16:08:00 Marybel Sexton [facility] FLEXIBLE SIGMOIDOSCOPY 2022-05-13 16:08:00 Marybel Sexton [facility] FLEXIBLE SIGMOIDOSCOPY 2022-05-13 16:07:35 Robin eric [facility] (ENDO) [facility] FLEXIBLE SIGMOIDOSCOPY 2022-05-13 16:07:35 Robin Duke [facility] (ENDO) [facility] HB ABO GROUPING 2022-05-13 11:11:00 Robin [facility] HB ABO GROUPING 2022-05-13 11:11:00 Robin [facility] BASIC METABOLIC PANEL 2022-05-13 08:57:00 Molina Stovall [facility] (NA, K, CL, CO2, GLUCOSE, Medica l Branch BUN, CREATININE, CA) CBC WITH DIFF 2022-05-13 08:57:00 Molina Stovall [facility] BASIC METABOLIC PANEL 2022-05-13 08:57:00 Molina Stovall [facility] (NA, K, CL, CO2, GLUCOSE, Medica l Branch BUN, CREATININE, CA) CBC WITH DIFF 2022-05-13 08:57:00 Molina Stovall [facility] VITAMIN D, 25-OH 2022-05-12 13:31:00 Robin [facility] VITAMIN D, 25-OH 2022-05-12 13:31:00 Robin [facility] PHOSPHORUS 2022-05-12 12:20:00 Robin [facility] MAGNESIUM 2022-05-12 12:20:00 Robin [facility] VITAMIN B12, LEVEL 2022-05-12 12:20:00 Robin [facility] C-REACTIVE PROTEIN 2022-05-12 12:20:00 Robin [facility] THYROID STIMULATING 2022-05-12 12:20:00 Robin [facility] COMP. METABOLIC PANEL 2022-05-12 12:20:00 Robin eric [facility] ([id number]) [facility] LIPID PANEL (07342)(TOTAL 2022-05-12 12:20:00 Ferdinand Fofana [facility] TRIGLYCERIDES, HDL) N-TERMINAL PRO-BNP 2022-05-12 12:20:00 Robin [facility] PHOSPHORUS 2022-05-12 12:20:00 Robin [facility] MAGNESIUM 2022-05-12 12:20:00 Robin [facility] VITAMIN B12, LEVEL 2022-05-12 12:20:00 Robin [facility] C-REACTIVE PROTEIN 2022-05-12 12:20:00 Robin [facility] THYROID STIMULATING 2022-05-12 12:20:00 Robin eric [facility] HORMONE [facility] COMP. METABOLIC PANEL 2022-05-12 12:20:00 Robin eric [facility] ([id number]) [facility] LIPID PANEL ([id number])(TOTAL 2022-05-12 12:20:00 Ferdinand Fofana [facility] TRIGLYCERIDES, HDL) N-TERMINAL PRO-BNP 2022-05-12 12:20:00 Ferdinand Fofana [facility] PROTHROMBIN TIME / INR 2022-05-12 12:19:00 Ferdinand Fofana [facility] PROTHROMBIN TIME / INR 2022-05-12 12:19:00 Ferdinand Fofana [facility] CBC WITH DIFF 2022-05-12 12:18:00 Robin [facility] CBC WITH DIFF 2022-05-12 12:18:00 Robin eric [facility] XR KUB 2022-05-12 05:58:38 Robin [facility] XR KUB 2022-05-12 05:58:38 Robin [facility] SEDIMENTATION RATE 2022-05-12 02:23:00 Robin eric [facility] CALPROTECTIN, FECAL 2022-05-12 02:23:[address] [facility] SEDIMENTATION RATE 2022-05-12 02:23:00 Robin eric [facility] CALPROTECTIN, FECAL 2022-05-12 02:23:[address] [facility] OCCULT (GUAIAC) BLOOD 2022-05-12 02:10:00 Robin eric [facility] OCCULT (GUAIAC) BLOOD 2022-05-12 02:10:00 Ferdinand [facility] URINALYSIS 2022-05-11 19:42:00 Romie Lewis [facility] CLOSTRIDIUM DIFFICILE 2022-05-11 19:42:00 Romie Lewis [facility] FECAL PATHOGENS BY PCR 2022-05-11 19:42:00 Ferdinand Fofana [facility] URINALYSIS 2022-05-11 19:42:00 Romie Lewis [facility] CLOSTRIDIUM DIFFICILE 2022-05-11 19:42:00 Romie Lewis [facility] FECAL PATHOGENS BY PCR 2022-05-11 19:42:00 Robin, Adnan [facility] LACTIC ACID WHOLE BLOOD 2022-05-11 19:12:00 Romie Lewis [facility] LACTIC ACID WHOLE BLOOD 2022-05-11 19:12:00 Romie Lewis [facility] BLOOD CULTURE SCREEN 2022-05-11 19:10:00 Romie Lewis [facility] LIPASE 2022-05-11 19:10:00 Romie Lewis [facility] COMP. METABOLIC PANEL 2022-05-11 19:10:00 Romie Lewis [facility] ([id number]) [facility] CBC WITH DIFF 2022-05-11 19:10:00 Romie Lewis [facility] GLYCOSYLATED HEMOGLOBIN 2022-05-11 19:10:00 Ferdinand Fofana [facility] BLOOD CULTURE SCREEN 2022-05-11 19:10:00 Romie Lewis [facility] LIPASE 2022-05-11 19:10:00 Romie Lewis [facility] COMP. METABOLIC PANEL 2022-05-11 19:10:00 Romie Lewis [facility] ([id number]) [facility] CBC WITH DIFF 2022-05-11 19:10:00 Romie Lewis [facility] GLYCOSYLATED HEMOGLOBIN 2022-05-11 19:10:00 Ferdinand Fofana [facility] BLOOD CULTURE SCREEN 2022-05-11 19:00:00 Romie Lewis [facility] BLOOD CULTURE SCREEN 2022-05-11 19:00:00 Romie Lewis [facility] CONSENT/REFUSAL FOR 2022-05-11 18:00:56 Doctor Unassigned, [facility] DIAGNOSIS AND TREATMENT [facility] CONSENT/REFUSAL FOR 2022-05-11 18:00:56 Doctor Unassigned, [facility] DIAGNOSIS AND TREATMENT [facility] CT ABDOMEN PELVIS W 2022-05-10 03:29:54 Constantino Okeefe [facility] Branch HB ABO GROUPING 2022-05-10 02:49:00 Constantino Okeefe [facility] LIPASE 2022-05-10 02:48:00 Constantino Okeefe [facility] COMP. METABOLIC PANEL 2022-05-10 02:48:00 Constantino Okeefe [facility] ([id number]) [facility] CBC WITH DIFF 2022-05-10 02:48:00 Constantino Okeefe [facility] CONSENT/REFUSAL FOR 2022-05-10 01:33:55 Doctor Unassigned, [facility] DIAGNOSIS AND TREATMENT [facility] MAGNESIUM 2022-04-29 08:47:00 Cordell [facility] FERRITIN SERUM 2022-04-29 08:47:00 Cordell [facility] IRON 2022-04-29 08:47:00 Cordell [facility] TOTAL IRON BINDING 2022-04-29 08:47:00 Cordell [facility] CAPACITY [facility] BASIC METABOLIC PANEL 2022-04-29 08:47:00 Cordell [facility] (NA, K, CL, CO2, GLUCOSE, Medica l Branch BUN, CREATININE, CA) CBC WITH DIFF 2022-04-29 08:47:00 Cordell [facility] MAGNESIUM 2022-04-28 09:51:00 Jaci Estrella [facility] BASIC METABOLIC PANEL 2022-04-28 09:51:00 Jaci Estrella [facility] (NA, K, CL, CO2, GLUCOSE, Medica l Branch BUN, CREATININE, CA) CBC WITH DIFF 2022-04-28 09:51:00 Jaci Estrella [facility] C-REACTIVE PROTEIN 2022-04-28 01:53:00 Jaci Estrella [facility] CLOSTRIDIUM DIFFICILE 2022-04-28 01:46:00 Jaci Estrella [facility] TOXIN [facility] FECAL PATHOGENS BY PCR 2022-04-28 01:46:00 Jaci Estrella [facility] COVID-19 (ID NOW RAPID 2022-04-27 18:36:00 Viv Ventura [facility] TESTING) Medical Branch LAB ONLY COVID 2022-04-27 18:36:00 Viv Ventura [facility] INTERPRETATION [facility] CT ABDOMEN PELVIS W 2022-04-27 17:16:09 Viv Ventura [facility] CONTRAST [facility] Branch ABORH CONFIRMATION (LAB 2022-04-27 16:40:00 Viv Ventura [facility] ONLY) Medical Branch URINALYSIS 2022-04-27 15:38:00 Viv Ventura [facility] LIPASE 2022-04-27 15:10:00 Viv Ventura [facility] MAGNESIUM 2022-04-27 15:10:00 Viv Ventura [facility] TROPONIN I 2022-04-27 15:10:00 Viv Ventura [facility] COMP. METABOLIC PANEL 2022-04-27 15:10:00 Viv Ventura [facility] ([id number]) Medical Branch CBC WITH DIFF 2022-04-27 15:10:00 Viv Ventura [facility] PROTHROMBIN TIME / INR 2022-04-27 15:10:00 Viv Ventura [facility] ACTIVATED PARTIAL 2022-04-27 15:10:00 Viv Ventura [facility] THRMPLAS TY [facility] HB ECG ROUTINE & RHYTHM 2022-04-27 15:09:41 Viv Ventura [facility] STRIP [facility] HB ABO GROUPING 2022-04-27 15:09:00 Viv Ventura [facility] NOTICE OF PRIVACY 2022-04-27 14:49:32 Doctor Nico, [facility] PRACTICES [facility] CONSENT/REFUSAL FOR 2022-04-27 14:49:05 Doctor Nico, [facility] DIAGNOSIS AND TREATMENT [facility] Encounters Start End Encounter Admission Attending Care Care Encounter Source Date/Time Date/Time Type Type Clinicians Facility Department ID 2022-02-10 Outpatient [facility] [id number] [place] 11:33:[address] 2022-01-25 Outpatient [facility] [id number] [place] 15:47:07 [place] [id number] [facility] 2023-01-02 2023-01-02 Emergency EM Peleg, HCANW GAUTAM [id number] [facility] 09:07:00 13:07:00 Leeor 40 [facility] are [facility] 2023-01-02 2023-01-02 Emergency EM Peleg, HCANW GAUTAM [id number] [facility] 09:07:00 13:07:00 Leepr 40 [facility] are [facility] 2022-11-26 2022-11-29 Inpatient EM Darin, HCANW MED [id number] [facility] 12:30:00 13:57:00 Mccracken [address] [facility] are [facility] 2022-11-26 2022-11-29 Inpatient EM Darin, HCANW MED [id number] [facility] 12:30:00 13:57:00 [facility] 2022-11-21 2022-11-21 Emergency EM Bower II, HCANW GAUTAM [id number] [facility] 14:20:00 19:15:00 Dennis 73 [facility] are [facility] 2022-11-21 2022-11-21 Emergency EM Bower II, HCANW GAUTAM [id number] [facility] 14:20:00 19:15:00 Dennis 73 [facility] are [facility] 2022-08-24 2022-08-24 Emergency X FAULCONER, [facility] ERT [id number] Univers 14:07:00 19:15:00 ELLI [facility] 2022-08-24 2022-08-24 Emergency Faulconer, [facility] [id number] Univers 14:07:00 19:15:00 [facility] [id number] i [facility] 4.2.7.2.686 [facility] [id number] [address] 2022-07-02 2022-07-03 Emergency X VASUT, [facility] ERT [id number] Univers 21:53:00 00:19:00 JUSTIN [facility] 2022-07-02 2022-07-03 Emergency Vasut, [facility] [id number] Univers 21:53:00 00:19:00 Justin INFANTE [id number] i ty [facility] 4.2.7.2.686 [facility] [id number] [facility] 084 Branch 2022-07-02 2022-07-02 Orders Doctor JESSEE [id number] Univers 00:00:00 00:00:00 Only Unassigned, NATE [id number] ity [facility] 4.2.7.2.686 Kartik as [id number] [facility] 009 Branch 2022-05-11 2022-05-17 Outpatient [facility] [id number] Univers 13:03:00 14:23:00 [facility] 2022-05-11 2022-05-17 Emergency Joshua Romie [facility] 1.2.840. [id number] Univers 13:03:00 14:23:00 Jaci Estrella 350.1.13.10 ity of [place] 4.2.7.2.686 [facility] [id number] [place] [id number] Branch 2022-05-13 2022-05-13 Surgery [facility] [id number] Univers 10:30:00 11:10:00 Marybel INFANTE 350.1.13.10 i ty [facility] 4.2.7.2.686 [facility] SURGICAL [id number] [facility] 020 Branch 2022-05-09 2022-05-09 Emergency [facility] [id number] Univers 20:46:00 23:50:00 [facility]INO [facility] 2022-05-09 2022-05-09 Emergency [facility] [id number] Univers 20:46:00 23:50:00 Constantino INFANTE 350.1.13.10 ity of [facility] 4.2.7.2.686 [facility] [id number] [place] [id number] Branch 2022-05-02 2022-05-02 Transition STEF Cochran 1.2.840.114 [id number] Univers 00:00:00 00:00:00 of Care Lana TRUONGY 350.1.13.10 ity chavo [place] 4.2.7.2.686 Hansel quigley [id number] [facility] 403 Branch 2022-04-27 2022-04-29 Inpatient X CORDELL, [facility] [id number] Univers 09:54:00 13:15:00 DARRYN ity [facility] 2022-04-27 2022-04-29 [facility] Viv Ventura [facility] 1.2.840.1 [id number] Univers 09:54:00 13:15:00 Encounter Jaci Estrella 350.1.13.10 ity of Darryn LandaJULIO 4.2.7.2.686 [facility] [id number] [facility] 081 Branch 2022-01-31 2022-01-31 Outpatient [facility] PIJFJJK QTO [facility] 00:00:00 00:00:[address] [id number] 2022-01-30 2022-01-30 Emergency E SHINTHIA, [facility] 7503 Memoria 18:36:00 22:28:00 JOHN [facility] 2022-01-29 2022-01-30 Emergency E MARIAELENA, [facility] 7502 Memoria 21:25:00 00:58:00 GREGORIO [facility] 2022-01-28 2022-01-28 Emergency E MARIAELENA, [facility] 7501 Memoria 11:02:00 14:55:00 GREGORIO [facility] 2022-01-24 2022-01-27 Inpatient E AZAEL, [facility] MED 7500 Memoria 23:12:00 15:10:00 OBGEOVANAN [facility] 2022-01-25 2022-01-25 Outpatient [facility] [id number] [place] 18:30:00 18:30:00 Health 2022-01-25 2022-01-25 Outpatient [facility] PIJFJJK QTO [facility] 00:00:00 00:00:[address] [id number] Results Test Description Test Time Test Comments Results Result [facility] e Comments - CT HEAD/BRAIN 2023-01-02 W/O CONT 12:34:00 [facility] 1975 Sex: M Guerrero ronquillo Name: ALEX BURROUGHS Unit No: [id number] EXAMS: CPT: [id number] CT HEAD/BRAIN W/O CONT 83012 HISTORY: TENA CT SCAN OF THE HEAD WITHOUT CONTRAST FINDINGS: CT scan of brain was performed without contrast. One or more of the following dose reduction techniques were used: Automated exposure control, adjustment of the mA and/or KV according to patient size, and/or utilization of iterative reconstruction technique. The cortical sulci, cisterns and ventricles are within normal limits. No intra-axial mass, hemorrhage or evidence of acute infarction is seen. No extra-axial fluid collections are present. The visualized aspects of the orbits and skull are unremarkable. The visualized sinuses are clear. IMPRESSION: 1. No acute intracranial abnormality identified. at 1234 Reported and signed by: John Paul Jha MD CC: Technologist: IAM Hanna CTDI: 44.21 DLP: 729.07 Trscr Dt/Tm: 01/02/2023 (1234) by:[email or web address] Orig Print D/T: S: 01/02/2023 (1237) BATCH NO: N/A Name: ALEX BURROUGHS [facility] Phys: PELLE - Peleg,Leeor B DO [address] [place] : 1975 Age: 47 Sex: [place] [address] Loc: N.ERS Exam Date: 01/02/2023 Status: REG ER PH: FAX: PAGE 1 Signed Report - CT HEAD/BRAIN 2023-01-02 W/O CONT 12:34:00 [facility] : 1975 Sex: M Guerrero ronquillo Name: ALEX BURROUGHS Unit No: [id number] EXAMS: CPT: [id number] CT HEAD/BRAIN W/O CONT 69047 HISTORY: TENA CT SCAN OF THE HEAD WITHOUT CONTRAST FINDINGS: CT scan of brain was performed without contrast. One or more of the following dose reduction techniques were used: Automated exposure control, adjustment of the mA and/or KV according to patient size, and/or utilization of iterative reconstruction technique. The cortical sulci, cisterns and ventricles are within normal limits. No intra-axial mass, hemorrhage or evidence of acute infarction is seen. No extra-axial fluid collections are present. The visualized aspects of the orbits and skull are unremarkable. The visualized sinuses are clear. IMPRESSION: 1. No acute intracranial abnormality identified. at 1234 Reported and signed by: John Paul Jha MD CC: Technologist: IAM Hanna CTDI: 44.21 DLP: 729.07 Trscr Dt/Tm: 01/02/2023 (1234) by:[email or web address] Orig Print D/T: S: 01/02/2023 (1237) BATCH NO: N/A Name: ALEX BURROUGHS [facility] Phys: PELLE - Peleg,Leeor B DO [address] [place] : 1975 Age: 47 Sex: [place] [address] Loc: N.ERS Exam Date: 01/02/2023 Status: DEP ER PH: FAX: PAGE 1 Signed Report - CT ABD PELVIS 2023-01-02 W/CONT 11:56:00 [facility] : 1975 Sex: M Guerrero ronquillo Name: ALEX BURROUGHS Unit No: [id number] EXAMS: CPT: [id number] CT ABD PELVIS W/CONT 72043 Comparison study: 11/21/2022 History: ABD PAIN GI BLEEDING HX COLITIS CT SCAN OF THE ABDOMEN AND PELVIS WITH CONTRAST FINDINGS: CT scan of the abdomen and pelvis was performed with intravenous contrast. One or more of the following dose reduction techniques were used: Automated exposure control, adjustment of the mA and/or KV according to patient size, and/or utilization of iterative reconstruction technique. The liver is unremarkable. The portal vein is patent. No abnormality of the spleen, pancreas or adrenal glands is identified. No solid renal mass, hydronephrosis or renal stone is present. The gallbladder is unremarkable. No adenopathy, ascites or mass is seen. The abdominal aorta is normal in size in caliber. There is no evidence of intestinal obstruction or acute appendicitis. There is thickening of the wall of the ascending colon and transverse colon. Findings may represent colitis. There is questionable thickening of the wall of the sigmoid colon. No abscess is present. No free intraperitoneal air is identified. The urinary bladder is unremarkable. No acute fracture is identified. Images through the lung bases are unremarkable. IMPRESSION: 1. There is thickening of the wall of the ascending colon and transverse colon. Findings may represent colitis. There is questionable thickening of the wall of the sigmoid colon. Name: ALEX BURROUGHS [facility] Phys: JOSHUAJAZIEL De La CruzBambi CERVANTES [address] [place] : 1975 Age: 47 Sex: [place] [address] Loc: N.ERS Exam Date: 01/02/2023 Status: REG ER PH: FAX: PAGE 1 Signed Report (CONTINUED) Patient Name: ALEX BURROUGHS Unit No: [id number] EXAMS: CPT: [id number] CT ABD PELVIS W/CONT 88121 (Continued) at 1156 Reported and signed by: John Paul Jha MD CC: Bambi De La Cruz Technologist: IAM Hanna CTDI: 13.28 DLP: 722.84 Trscr Dt/Tm: 01/02/2023 (1156) by:[email or web address] [facility] Print D/T: S: 01/02/2023 (1200) BATCH NO: N/A Name: ALEX BURROUGHS [facility] Phys: ALEJA De La CruzBambi APRNNYordan [address] [place] : 1975 Age: 47 Sex: [place] [address] Loc: N.ERS Exam Date: 01/02/2023 Status: REG ER PH: FAX: PAGE 2 Signed Report - CT ABD PELVIS 2023-01-02 W/CONT 11:56:00 [facility] : 1975 Sex: M Guerrero ronquillo Name: ALEX BURROUGHS Unit No: [id number] EXAMS: CPT: [id number] CT ABD PELVIS W/CONT 07487 Comparison study: 11/21/2022 History: ABD PAIN GI BLEEDING HX COLITIS CT SCAN OF THE ABDOMEN AND PELVIS WITH CONTRAST FINDINGS: CT scan of the abdomen and pelvis was performed with intravenous contrast. One or more of the following dose reduction techniques were used: Automated exposure control, adjustment of the mA and/or KV according to patient size, and/or utilization of iterative reconstruction technique. The liver is unremarkable. The portal vein is patent. No abnormality of the spleen, pancreas or adrenal glands is identified. No solid renal mass, hydronephrosis or renal stone is present. The gallbladder is unremarkable. No adenopathy, ascites or mass is seen. The abdominal aorta is normal in size in caliber. There is no evidence of intestinal obstruction or acute appendicitis. There is thickening of the wall of the ascending colon and transverse colon. Findings may represent colitis. There is questionable thickening of the wall of the sigmoid colon. No abscess is present. No free intraperitoneal air is identified. The urinary bladder is unremarkable. No acute fracture is identified. Images through the lung bases are unremarkable. IMPRESSION: 1. There is thickening of the wall of the ascending colon and transverse colon. Findings may represent colitis. There is questionable thickening of the wall of the sigmoid colon. Name: ALEX BURROUGHS [facility] Phys: Bambi Rod [address] [facility] : 1975 Age: 47 Sex: [place] [address] Loc: N.ERS Exam Date: 01/02/2023 Status: [facility] PH: FAX: PAGE 1 Signed Report (CONTINUED) Patient Name: ALEX BURROUGHS Unit No: [id number] EXAMS: CPT: [id number] CT ABD PELVIS W/CONT 25609 (Continued) at 1156 Reported and signed by: John Paul Jha MD CC: Bambi De La Cruz Technologist: IAM Hanna CTDI: 13.28 DLP: 722.84 Trscr Dt/Tm: 01/02/2023 (1156) by:[email or web address] Orig Print D/T: S: 01/02/2023 (1200) BATCH NO: N/A Name: ALEX BURROUGHS [facility] ED Phys: Bambi Rod [address] [place] : 1975 Age: 47 Sex: [place] [address] Loc: N.ERS Exam Date: 01/02/2023 Status: DEP ER PH: FAX: PAGE 2 Signed Report UA RFLX MICR CULT IF INDICATED 2023-01-02 10:42:00 Test Item Value Reference Range Interpretation Comme nts UA COLOR (test code = COLU) YELLOW YELLOW UA APPEARANCE (test code = Clear CLEAR APPU) UA GLUCOSE DIPSTICK (test NEGATIVE NEGATIVE code = DGLUU) UA BILIRUBIN DIPSTICK (test NEGATIVE NEGATIVE code = BILU) UA KETONE DIPSTICK (test code NEGATIVE NEGATIVE = KETU) UA SPECIFIC GRAVITY (test 1.032 1.001-1.030 code = SGU) UA BLOOD DIPSTICK (test code 1+ NEGATIVE = AMANDA) UA PH DIPSTICK (test code = 5.0 5.0-9.0 ZION) UA PROTEIN DIPSTICK (test NEGATIVE NEGATIVE code = PROU) UA UROBILINOGEN DIPSTICK NEGATIVE See_Comment [A utomated message] The (test code = URO) system [facility] generated this result transmit eunice reference range : <=1.0. The reference range was not used to interpr et this result as adilia l/abnormal. UA NITRITE DIPSTICK (test NEGATIVE NEGATIVE code = DANIA) UA ASCORBIC ACID DIPSTICK NEGATIVE (test code = AAU) UA LEUKOCYTE ESTERASE NEGATIVE NEGATIVE DIPSTICK (test code = LEUU) UA WBC (test code = WBCUR) 0-5 /HPF 0-5 UA RBC (test code = RBCU) 0-5 /HPF 0-5 UA EPITHELIAL CELLS (test OCC /LPF NONE-FEW code = EPIU) UA BACTERIA (test code = NONE SEEN /HPF NONE SEEN BACU) UA URIC ACID CRYSTALS (test MANY /HPF NONE SEEN code = URIU) Indication for culture: Gross HematuriaSpecimen Description: CLEAN CATCHBASIC METABOLIC [id number] 10:17:00 Test Item Value Reference Range Interpretation Comments SODIUM (test code 138 mmol/L 135-145 N = NA) POTASSIUM (test 5.0 mmol/L 3.6-5.0 N 2+HEMOLYSIS code = K) CHLORIDE (test 110 mmol/L 101-111 N code = CL) CARBON DIOXIDE 22 mmol/L 21-31 N (test code = CO2) GLUCOSE (test code 123 mg/dl 70-100 H = GLU) BLOOD UREA 17 mg/dl 6-20 N NITROGEN (test code = BUN) GLOMERULAR >=60 max >60 The Glomerular FILTRATION RATE estimate Filtration R ate is a (test code = GFR) calculated parameterbased on serum Creatinin e, patient age and sex. GFR valuesless than 60 mL/min/1.73 square meters are walker cative ofChronic Kidne y Disease. Values less than 15 mL/min/1.73squa re meters indicate Kidney failure. The calculation for GFR is based on the CK D-EPI (2020) calculat ion. This formulais race indifferent and is the recommended formula for GFR by the National Kidney Foundation for Adults.The GFR will not calculate i f the sex is unknown or if thepatient's ag e is <18 years. CREATININE (test 0.97 mg/dL 0.64-1.27 N code = CREAT) CALCIUM (test code 8.8 mg/dL 8.5-10.5 N = CA) INDEX HEMOLYSIS 2 Index/DL See_Comment [Automated message] (test code = The system [employer] HEMINDEX) generated this result transmitted ref erence range: 1 NORMAL . The reference range was not used to int erpret this result as normal/abnormal . INDEX ICTERIC 1 Index/DL See_Comment [Automated me ssage] (test code = The system [employer] ICTINDEX) generated this result transmitted ref erence range: 1 NORMAL . The reference range was not used to int erpret this result as normal/abnormal . INDEX LIPEMIA 1 Index/DL See_Comment [Automated me ssage] (test code = The system [employer] LIPINDEX) generated this result transmitted ref erence range: 1 NORMAL . The reference range was not used to int erpret this result as normal/abnormal . LIVER FUNCTION [id number] 10:17:00 Test Item Value Reference Range Interpretation Comments TOTAL PROTEIN (test code = PROT) 6.5 g/dL 6.7-8.2 L ALBUMIN (test code = ALB) 3.5 g/dL 3.2-5.5 N BILIRUBIN TOTAL (test code = BILT) 1.10 mg/dL 0.2-1.3 N BILIRUBIN DIRECT (test code = 0.3 mg/dL 0.00-0.20 H BILD) SGOT/AST (test code = AST) 30 U/L 10-42 N SGPT/ALT (test code = ALT) 19 U/L 10-60 N ALKALINE PHOSPHATASE (test code = 54 U/L 42-121 N ALKP) [id number] 10:17:00 Test Item Value Reference Range Interpretation Comments LIPASE (test code = LIP) 37 IU/L 22-51 N CBC W/AUTO [id number] 09:57:00 Test Item Value Reference Range Interpretation Comments WHITE BLOOD CELL (test code = 9.5 x10 3/uL 3.2-11.5 N WBC) RED BLOOD CELL (test code = 4.81 x10(6)/m 4.20-5.70 N RBC) HEMOGLOBIN (test code = HGB) 12.4 g/dL 12.9-17.3 L HEMATOCRIT (test code = HCT) 38.8 % 38.7-51.0 N MEAN CELL VOLUME (test code = 81 fL 80-100 N MCV) MEAN CELL HGB (test code = MCH) 25.8 pg 26.7-33.3 L MEAN CELL HGB CONCENTRATION 32.0 g/dL 30.0-34.0 N (test code = MCHC) RED CELL DISTRIBUTION WIDTH 15.9 % 11.3-14.5 H (test code = RDW) PLATELET COUNT (test code = 309 x10 3/uL 130-408 N PLT) MEAN PLATELET VOLUME (test code 10.5 fL 8.6-12.6 N = MPV) NEUTROPHIL % (test code = NT%) 68.6 % 40.0-70.0 N LYMPHOCYTE % (test code = LY%) 16.2 % 20-40 L MONOCYTE % (test code = MO%) 12.7 % 1-10 H EOSINOPHIL % (test code = EO%) 1.2 % 0.0-5.0 N BASOPHIL % (test code = BA%) 1.1 % 0.0-1.0 H NUCLEATED RBC % (test code = 0.0 % 0.0-0.9 N NRBC%) NEUTROPHIL # (test code = NT#) 6.5 x10 3/uL 1.6-7.2 N LYMPHOCYTE # (test code = LY#) 1.53 x10 3/uL 1.1-2.7 N MONOCYTE # (test code = MO#) 1.2 x10 3/uL 0.3-0.8 H EOSINOPHIL # (test code = EO#) 0.1 x10 3/uL 0.0-0.5 N IMMATURE GRANULOCYTE % (test 0.2 % 0.0-2.0 N code = IG%) BASOPHIL # (test code = BA#) 0.1 x10 3/uL 0.0-0.1 N HGBA1C - GLYCOSYLATED [id number] 14:18:00 Test Item Value Reference Range Interpretation Comments GLYCOSYLATED HEMOGLOBIN 6.3 % 4.0-6.0 H Inte rpretive Data: (HA1C) (test code = Caution should be GLYHGB) exercised when interpreting th e HgbA1c in patients wit h hemolytic anemi a, iron deficiency and when the total hemoglobi n is < 9g/dL, due to a decrease in average age of red blood cells [id number] 05:52:00 Test Item Value Reference Range Interpretation Comments GLUBED (test code = GLUBED) 161 MG/DL 70-105 H [id number] 05:38:00 Test Item Value Reference Range Interpretation Comments PHOSPHOROUS (test code = PHOS) 3.2 mg/dl 2.5-4.6 N [id number] 05:38:00 Test Item Value Reference Range Interpretation Comments MAGNESIUM (test code = MAG) 2.1 mg/dl 1.8-2.5 N BASIC METABOLIC [id number] 05:06:00 Test Item Value Reference Range Interpretation Comments SODIUM (test code 133 mmol/L 135-145 L = NA) POTASSIUM (test 4.3 mmol/L 3.6-5.0 N code = K) CHLORIDE (test 102 mmol/L 101-111 N code = CL) CARBON DIOXIDE 22 mmol/L 21-31 N (test code = CO2) GLUCOSE (test code 189 mg/dl 70-100 H = GLU) BLOOD UREA 17 mg/dl 6-20 N NITROGEN (test code = BUN) GLOMERULAR >=60 max >60 The Glomerular FILTRATION RATE estimate Filtration R ate is a (test code = GFR) calculated parameterbased on serum Creatinin e, patient age and sex. GFR valuesless than 60 mL/min/1.73 square meters are walker cative ofChronic Kidne y Disease. Values less than 15 mL/min/1.73squa re meters indicate Kidney failure. The calculation for GFR is based on the CK D-EPI (2020) calculat ion. This formulais race indifferent and is the recommended formula for GFR by the National Kidney Foundation for Adults.The GFR will not calculate i f the sex is unknown or if thepatient's ag e is <18 years. CREATININE (test 0.87 mg/dL 0.64-1.27 N code = CREAT) CALCIUM (test code 9.0 mg/dL 8.5-10.5 N = CA) INDEX HEMOLYSIS 1 Index/DL See_Comment [Automated message] (test code = The system [employer] HEMINDEX) generated this result transmitted ref erence range: 1 NORMAL . The reference range was not used to int erpret this result as normal/abnormal . INDEX ICTERIC 1 Index/DL See_Comment [Automated me ssage] (test code = The system [employer] ICTINDEX) generated this result transmitted ref erence range: 1 NORMAL . The reference range was not used to int erpret this result as normal/abnormal . INDEX LIPEMIA 0 Index/DL See_Comment [Automated me ssage] (test code = The system [employer]IP[employer]EX) generated this result transmitted ref erence range: 1 NORMAL . The reference range was not used to int erpret this result as normal/abnormal . CBC W/AUTO [id number] 04:59:00 Test Item Value Reference Range Interpretation Comments WHITE BLOOD CELL (test code = 12.6 x10 3/uL 3.2-11.5 H WBC) RED BLOOD CELL (test code = 4.83 x10(6)/m 4.20-5.70 N RBC) HEMOGLOBIN (test code = HGB) 12.3 g/dL 12.9-17.3 L HEMATOCRIT (test code = HCT) 38.7 % 38.7-51.0 N MEAN CELL VOLUME (test code = 80 fL 80-100 N MCV) MEAN CELL HGB (test code = MCH) 25.5 pg 26.7-33.3 L MEAN CELL HGB CONCENTRATION 31.8 g/dL 30.0-34.0 N (test code = MCHC) RED CELL DISTRIBUTION WIDTH 15.8 % 11.3-14.5 H (test code = RDW) PLATELET COUNT (test code = 393 x10 3/uL 130-408 N PLT) MEAN PLATELET VOLUME (test code 10.9 fL 8.6-12.6 N = MPV) NEUTROPHIL % (test code = NT%) 83.2 % 40.0-70.0 H IMMATURE GRANULOCYTE % (test 0.9 % 0.0-2.0 N code = IG%) LYMPHOCYTE % (test code = LY%) 8.6 % 20-40 L MONOCYTE % (test code = MO%) 7.1 % 1-10 N EOSINOPHIL % (test code = EO%) 0.0 % 0.0-5.0 N BASOPHIL % (test code = BA%) 0.2 % 0.0-1.0 N NUCLEATED RBC % (test code = 0.0 % 0.0-0.9 N NRBC%) NEUTROPHIL # (test code = NT#) 10.5 x10 3/uL 1.6-7.2 H LYMPHOCYTE # (test code = LY#) 1.09 x10 3/uL 1.1-2.7 L MONOCYTE # (test code = MO#) 0.9 x10 3/uL 0.3-0.8 H EOSINOPHIL # (test code = EO#) 0.0 x10 3/uL 0.0-0.5 N BASOPHIL # (test code = BA#) 0.0 x10 3/uL 0.0-0.1 N [id number] 17:40:00 Test Item Value Reference Range Interpretation Comments GLUBED (test code = GLUBED) 122 MG/DL 70-105 H BASIC METABOLIC [id number] 07:03:00 Test Item Value Reference Range Interpretation Comments SODIUM (test code 137 mmol/L 135-145 N = NA) POTASSIUM (test 3.4 mmol/L 3.6-5.0 L code = K) CHLORIDE (test 109 mmol/L 101-111 N code = CL) CARBON DIOXIDE 22 mmol/L 21-31 N (test code = CO2) GLUCOSE (test code 804 mg/dl 70-100 HH Critical Value = GLU) reported toFirs t Name:ZENAIDA Last Name:MARILEE FLORES READ BACK AND VERIFIEDby MARISOL RAMIREZ, on 11/27/22, @ 0659. BLOOD UREA 8 mg/dl 6-20 N NITROGEN (test code = BUN) GLOMERULAR >=60 max >60 The Glomerular FILTRATION RATE estimate Filtration R ate is a (test code = GFR) calculated parameterbased on serum Creatinin e, patient age and sex. GFR valuesless than 60 mL/min/1.73 square meters are walker cative ofChronic Kidne y Disease. Values less than 15 mL/min/1.73squa re meters indicate Kidney failure. The calculation for GFR is based on the CK D-EPI (2020) calculat ion. This formulais race indifferent and is the recommended formula for GFR by the National Kidney Foundation for Adults.The GFR will not calculate i f the sex is unknown or if thepatient's ag e is <18 years. CREATININE (test 0.77 mg/dL 0.64-1.27 N code = CREAT) CALCIUM (test code 7.1 mg/dL 8.5-10.5 L = CA) INDEX HEMOLYSIS 1 Index/DL See_Comment [Automated message] (test code = The system [employer] HEMINDEX) generated this result transmitted ref erence range: 1 NORMAL . The reference range was not used to int erpret this result as normal/abnormal . INDEX ICTERIC 1 Index/DL See_Comment [Automated me ssage] (test code = The system [employer] ICTINDEX) generated this result transmitted ref erence range: 1 NORMAL . The reference range was not used to int erpret this result as normal/abnormal . INDEX LIPEMIA 0 Index/DL See_Comment [Automated me ssage] (test code = The system [employer] LIPINDEX) generated this result transmitted ref erence range: 1 NORMAL . The reference range was not used to int erpret this result as normal/abnormal . [id number] 07:03:00 Test Item Value Reference Range Interpretation Comments PHOSPHOROUS (test code = PHOS) 3.0 mg/dl 2.5-4.6 N [id number] 07:03:00 Test Item Value Reference Range Interpretation Comments MAGNESIUM (test code = MAG) 1.5 mg/dl 1.8-2.5 L CBC W/AUTO [id number] 06:51:00 Test Item Value Reference Range Interpretation Comments WHITE BLOOD CELL (test 9.5 x10 3/uL 3.2-11.5 N code = WBC) RED BLOOD CELL (test 4.26 x10(6)/m 4.20-5.70 N code = RBC) HEMOGLOBIN (test code 10.8 g/dL 12.9-17.3 L NOTIFI ED JOHN = HGB) HARRINGTON RN HEMATOCRIT (test code 34.3 % 38.7-51.0 L = HCT) MEAN CELL VOLUME (test 81 fL 80-100 N code = MCV) MEAN CELL HGB (test 25.4 pg 26.7-33.3 L code = MCH) MEAN CELL HGB 31.5 g/dL 30.0-34.0 N CONCENTRATION (test code = MCHC) RED CELL DISTRIBUTION 15.9 % 11.3-14.5 H WIDTH (test code = RDW) PLATELET COUNT (test 330 x10 3/uL 130-408 N code = PLT) MEAN PLATELET VOLUME 11.2 fL 8.6-12.6 N (test code = MPV) NEUTROPHIL % (test 77.5 % 40.0-70.0 H code = NT%) IMMATURE GRANULOCYTE % 0.7 % 0.0-2.0 N (test code = IG%) LYMPHOCYTE % (test 11.9 % 20-40 L code = LY%) MONOCYTE % (test code 9.7 % 1-10 N = MO%) EOSINOPHIL % (test 0.0 % 0.0-5.0 N code = EO%) BASOPHIL % (test code 0.2 % 0.0-1.0 N = BA%) NUCLEATED RBC % (test 0.0 % 0.0-0.9 N code = NRBC%) NEUTROPHIL # (test 7.4 x10 3/uL 1.6-7.2 H code = NT#) LYMPHOCYTE # (test 1.14 x10 3/uL 1.1-2.7 N code = LY#) MONOCYTE # (test code 0.9 x10 3/uL 0.3-0.8 H = MO#) EOSINOPHIL # (test 0.0 x10 3/uL 0.0-0.5 N code = EO#) BASOPHIL # (test code 0.0 x10 3/uL 0.0-0.1 N = BA#) SED [id number] 11:56:00 Test Item Value Reference Range Interpretation Comments SED RATE (test code = SEDW) 10 mm/hr 0-15 N BASIC METABOLIC [id number] 11:18:00 Test Item Value Reference Range Interpretation Comments SODIUM (test code 133 mmol/L 135-145 L = NA) POTASSIUM (test 4.2 mmol/L 3.6-5.0 N code = K) CHLORIDE (test 101 mmol/L 101-111 N code = CL) CARBON DIOXIDE 21 mmol/L 21-31 N (test code = CO2) GLUCOSE (test code 158 mg/dl 70-100 H = GLU) BLOOD UREA 12 mg/dl 6-20 N NITROGEN (test code = BUN) GLOMERULAR >=60 max >60 The Glomerular FILTRATION RATE estimate Filtration R ate is a (test code = GFR) calculated parameterbased on serum Creatinin e, patient age and sex. GFR valuesless than 60 mL/min/1.73 square meters are walker cative ofChronic Kidne y Disease. Values less than 15 mL/min/1.73squa re meters indicate Kidney failure. The calculation for GFR is based on the CK D-EPI (2020) calculat ion. This formulais race indifferent and is the recommended formula for GFR by the National Kidney Foundation for Adults.The GFR will not calculate i f the sex is unknown or if thepatient's ag e is <18 years. CREATININE (test 0.81 mg/dL 0.64-1.27 N code = CREAT) CALCIUM (test code 9.0 mg/dL 8.5-10.5 N = CA) INDEX HEMOLYSIS 0 Index/DL See_Comment [Automated message] (test code = The system [employer] HEMINDEX) generated this result transmitted ref erence range: 1 NORMAL . The reference range was not used to int erpret this result as normal/abnormal . INDEX ICTERIC 1 Index/DL See_Comment [Automated me ssage] (test code = The system [employer] ICTINDEX) generated this result transmitted ref erence range: 1 NORMAL . The reference range was not used to int erpret this result as normal/abnormal . INDEX LIPEMIA 0 Index/DL See_Comment [Automated me ssage] (test code = The system [employer] LIPINDEX) generated this result transmitted ref erence range: 1 NORMAL . The reference range was not used to int erpret this result as normal/abnormal . CBC W/AUTO [id number] 11:09:00 Test Item Value Reference Range Interpretation Comments WHITE BLOOD CELL (test code = 10.2 x10 3/uL 3.2-11.5 N WBC) RED BLOOD CELL (test code = 4.83 x10(6)/m 4.20-5.70 N RBC) HEMOGLOBIN (test code = HGB) 12.3 g/dL 12.9-17.3 L HEMATOCRIT (test code = HCT) 39.0 % 38.7-51.0 N MEAN CELL VOLUME (test code = 81 fL 80-100 N MCV) MEAN CELL HGB (test code = MCH) 25.5 pg 26.7-33.3 L MEAN CELL HGB CONCENTRATION 31.5 g/dL 30.0-34.0 N (test code = MCHC) RED CELL DISTRIBUTION WIDTH 15.8 % 11.3-14.5 H (test code = RDW) PLATELET COUNT (test code = 382 x10 3/uL 130-408 N PLT) MEAN PLATELET VOLUME (test code 10.7 fL 8.6-12.6 N = MPV) NEUTROPHIL % (test code = NT%) 80.5 % 40.0-70.0 H LYMPHOCYTE % (test code = LY%) 13.9 % 20-40 L MONOCYTE % (test code = MO%) 4.6 % 1-10 N EOSINOPHIL % (test code = EO%) 0.1 % 0.0-5.0 N BASOPHIL % (test code = BA%) 0.4 % 0.0-1.0 N NUCLEATED RBC % (test code = 0.0 % 0.0-0.9 N NRBC%) NEUTROPHIL # (test code = NT#) 8.2 x10 3/uL 1.6-7.2 H LYMPHOCYTE # (test code = LY#) 1.42 x10 3/uL 1.1-2.7 N MONOCYTE # (test code = MO#) 0.5 x10 3/uL 0.3-0.8 N EOSINOPHIL # (test code = EO#) 0.0 x10 3/uL 0.0-0.5 N IMMATURE GRANULOCYTE % (test 0.5 % 0.0-2.0 N code = IG%) BASOPHIL # (test code = BA#) 0.0 x10 3/uL 0.0-0.1 N THYROID STIMULATING [id number] 05:46:00 Test Item Value Reference Range Interpretation Comments THYROID STIMULATING HORMONE 1.762 uIU/ml 0.450-5.330 N (test code = TSH) CBC W/AUTO [id number] 05:38:00 Test Item Value Reference Range Interpretation Comments WHITE BLOOD CELL (test code = 9.6 x10 3/uL 3.2-11.5 N WBC) RED BLOOD CELL (test code = 4.71 x10(6)/m 4.20-5.70 N RBC) HEMOGLOBIN (test code = HGB) 11.9 g/dL 12.9-17.3 L HEMATOCRIT (test code = HCT) 37.9 % 38.7-51.0 L MEAN CELL VOLUME (test code = 81 fL 80-100 N MCV) MEAN CELL HGB (test code = MCH) 25.3 pg 26.7-33.3 L MEAN CELL HGB CONCENTRATION 31.4 g/dL 30.0-34.0 N (test code = MCHC) RED CELL DISTRIBUTION WIDTH 15.9 % 11.3-14.5 H (test code = RDW) PLATELET COUNT (test code = 334 x10 3/uL 130-408 N PLT) MEAN PLATELET VOLUME (test code 10.5 fL 8.6-12.6 N = MPV) NEUTROPHIL % (test code = NT%) 84.3 % 40.0-70.0 H IMMATURE GRANULOCYTE % (test 0.6 % 0.0-2.0 N code = IG%) LYMPHOCYTE % (test code = LY%) 11.3 % 20-40 L MONOCYTE % (test code = MO%) 2.8 % 1-10 N EOSINOPHIL % (test code = EO%) 0.4 % 0.0-5.0 N BASOPHIL % (test code = BA%) 0.6 % 0.0-1.0 N NUCLEATED RBC % (test code = 0.0 % 0.0-0.9 N NRBC%) NEUTROPHIL # (test code = NT#) 8.1 x10 3/uL 1.6-7.2 H LYMPHOCYTE # (test code = LY#) 1.09 x10 3/uL 1.1-2.7 L MONOCYTE # (test code = MO#) 0.3 x10 3/uL 0.3-0.8 N EOSINOPHIL # (test code = EO#) 0.0 x10 3/uL 0.0-0.5 N BASOPHIL # (test code = BA#) 0.1 x10 3/uL 0.0-0.1 N BASIC METABOLIC [id number] 05:26:00 Test Item Value Reference Range Interpretation Comments SODIUM (test code 133 mmol/L 135-145 L = NA) POTASSIUM (test 4.2 mmol/L 3.6-5.0 N code = K) CHLORIDE (test 104 mmol/L 101-111 N code = CL) CARBON DIOXIDE 21 mmol/L 21-31 N (test code = CO2) GLUCOSE (test code 173 mg/dl 70-100 H = GLU) BLOOD UREA 16 mg/dl 6-20 N NITROGEN (test code = BUN) GLOMERULAR >=60 max >60 The Glomerular FILTRATION RATE estimate Filtration R ate is a (test code = GFR) calculated parameterbased on serum Creatinin e, patient age and sex. GFR valuesless than 60 mL/min/1.73 square meters are walker cative ofChronic Kidne y Disease. Values less than 15 mL/min/1.73squa re meters indicate Kidney failure. The calculation for GFR is based on the CK D-EPI (2020) calculat ion. This formulais race indifferent and is the recommended formula for GFR by the National Kidney Foundation for Adults.The GFR will not calculate i f the sex is unknown or if thepatient's ag e is <18 years. CREATININE (test 0.92 mg/dL 0.64-1.27 N code = CREAT) CALCIUM (test code 8.4 mg/dL 8.5-10.5 L = CA) INDEX HEMOLYSIS 0 Index/DL See_Comment [Automated message] (test code = The system [employer] HEMINDEX) generated this result transmitted ref erence range: 1 NORMAL . The reference range was not used to int erpret this result as normal/abnormal . INDEX ICTERIC 1 Index/DL See_Comment [Automated me ssage] (test code = The system [employer] ICTINDEX) generated this result transmitted ref erence range: 1 NORMAL . The reference range was not used to int erpret this result as normal/abnormal . INDEX LIPEMIA 0 Index/DL See_Comment [Automated me ssage] (test code = The system [employer] LIPINDEX) generated this result transmitted ref erence range: 1 NORMAL . The reference range was not used to int erpret this result as normal/abnormal . UA RFLX MICR CULT IF [id number] 22:47:00 Test Item Value Reference Range Interpretation Comments UA COLOR (test code = YELLOW YELLOW COLU) UA APPEARANCE (test HAZY CLEAR code = APPU) UA GLUCOSE DIPSTICK NEGATIVE NEGATIVE (test code = DGLUU) UA BILIRUBIN DIPSTICK NEGATIVE NEGATIVE (test code = BILU) UA KETONE DIPSTICK NEGATIVE NEGATIVE (test code = KETU) UA SPECIFIC GRAVITY 1.031 1.001-1.030 (test code = SGU) UA BLOOD DIPSTICK (test NEGATIVE NEGATIVE code = AMANDA) UA PH DIPSTICK (test 5.0 5.0-9.0 code = ZION) UA PROTEIN DIPSTICK NEGATIVE NEGATIVE (test code = PROU) UA UROBILINOGEN NEGATIVE See_Comment [Automated message] DIPSTICK (test code = The sy stem which URO) generated this result transmitted ref erence range: <=1.0. T he reference range was not used to int erpret this result as normal/abnormal . UA NITRITE DIPSTICK NEGATIVE NEGATIVE (test code = DANIA) UA ASCORBIC ACID NEGATIVE DIPSTICK (test code = AAU) UA LEUKOCYTE ESTERASE NEGATIVE NEGATIVE DIPSTICK (test code = LEUU) UA WBC (test code = 0-5 /HPF 0-5 WBCUR) UA RBC (test code = 0-5 /HPF 0-5 RBCU) UA EPITHELIAL CELLS None /LPF NONE-FEW (test code = EPIU) UA BACTERIA (test code None /HPF NONE SEEN = BACU) UA CALCIUM OXALATE MANY /HPF NONE SEEN CRYSTALS (test code = CAOXU) UA HYALINE CAST (test 0-1 /LPF 0-1 code = HYALU) UA MUCUS (test code = 1+ /LPF NONE SEEN MUCU) Indication for culture: RiskForSepsis-no oth srcSpecimen Description: CLEAN CATCHBASIC METABOLIC [id number] 22:37:00 Test Item Value Reference Range Interpretation Comments SODIUM (test code 136 mmol/L 135-145 N = NA) POTASSIUM (test 3.9 mmol/L 3.6-5.0 N code = K) CHLORIDE (test 106 mmol/L 101-111 N code = CL) CARBON DIOXIDE 22 mmol/L 21-31 N (test code = CO2) GLUCOSE (test code 127 mg/dl 70-100 H = GLU) BLOOD UREA 19 mg/dl 6-20 N NITROGEN (test code = BUN) GLOMERULAR >=60 max >60 The Glomerular FILTRATION RATE estimate Filtration R ate is a (test code = GFR) calculated parameterbased on serum Creatinin e, patient age and sex. GFR valuesless than 60 mL/min/1.73 square meters are walker cative ofChronic Kidne y Disease. Values less than 15 mL/min/1.73squa re meters indicate Kidney failure. The calculation for GFR is based on the CK D-EPI (2020) calculat ion. This formulais race indifferent and is the recommended formula for GFR by the National Kidney Foundation for Adults.The GFR will not calculate i f the sex is unknown or if thepatient's ag e is <18 years. CREATININE (test 1.21 mg/dL 0.64-1.27 N code = CREAT) CALCIUM (test code 8.8 mg/dL 8.5-10.5 N = CA) INDEX HEMOLYSIS 0 Index/DL See_Comment [Automated message] (test code = The system [employer] HEMINDEX) generated this result transmitted ref erence range: 1 NORMAL . The reference range was not used to int erpret this result as normal/abnormal . INDEX ICTERIC 1 Index/DL See_Comment [Automated me ssage] (test code = The system [employer] ICTINDEX) generated this result transmitted ref erence range: 1 NORMAL . The reference range was not used to int erpret this result as normal/abnormal . INDEX LIPEMIA 1 Index/DL See_Comment [Automated me ssage] (test code = The system [employer] LIPINDEX) generated this result transmitted ref erence range: 1 NORMAL . The reference range was not used to int erpret this result as normal/abnormal . LIVER FUNCTION [id number] 22:37:00 Test Item Value Reference Range Interpretation Comments TOTAL PROTEIN (test code = PROT) 7.2 g/dL 6.7-8.2 N ALBUMIN (test code = ALB) 3.5 g/dL 3.2-5.5 N BILIRUBIN TOTAL (test code = 0.30 mg/dL 0.2-1.3 N BILT) BILIRUBIN DIRECT (test code = < 0.1 mg/dL 0.00-0.20 N BILD) SGOT/AST (test code = AST) 17 U/L 10-42 N SGPT/ALT (test code = ALT) 23 U/L 10-60 N ALKALINE PHOSPHATASE (test code = 61 U/L 42-121 N ALKP) [id number] 22:37:00 Test Item Value Reference Range Interpretation Comments LIPASE (test code = LIP) 37 IU/L 22-51 N CBC W/AUTO [id number] 22:23:00 Test Item Value Reference Range Interpretation Comments WHITE BLOOD CELL (test code = 10.5 x10 3/uL 3.2-11.5 N WBC) RED BLOOD CELL (test code = 4.90 x10(6)/m 4.20-5.70 N RBC) HEMOGLOBIN (test code = HGB) 12.6 g/dL 12.9-17.3 L HEMATOCRIT (test code = HCT) 39.4 % 38.7-51.0 N MEAN CELL VOLUME (test code = 80 fL 80-100 N MCV) MEAN CELL HGB (test code = MCH) 25.7 pg 26.7-33.3 L MEAN CELL HGB CONCENTRATION 32.0 g/dL 30.0-34.0 N (test code = MCHC) RED CELL DISTRIBUTION WIDTH 15.8 % 11.3-14.5 H (test code = RDW) PLATELET COUNT (test code = 379 x10 3/uL 130-408 N PLT) MEAN PLATELET VOLUME (test code 10.9 fL 8.6-12.6 N = MPV) NEUTROPHIL % (test code = NT%) 53.3 % 40.0-70.0 N LYMPHOCYTE % (test code = LY%) 24.5 % 20-40 N MONOCYTE % (test code = MO%) 18.4 % 1-10 H EOSINOPHIL % (test code = EO%) 2.0 % 0.0-5.0 N BASOPHIL % (test code = BA%) 1.1 % 0.0-1.0 H NUCLEATED RBC % (test code = 0.0 % 0.0-0.9 N NRBC%) NEUTROPHIL # (test code = NT#) 5.6 x10 3/uL 1.6-7.2 N LYMPHOCYTE # (test code = LY#) 2.58 x10 3/uL 1.1-2.7 N MONOCYTE # (test code = MO#) 1.9 x10 3/uL 0.3-0.8 H EOSINOPHIL # (test code = EO#) 0.2 x10 3/uL 0.0-0.5 N IMMATURE GRANULOCYTE % (test 0.7 % 0.0-2.0 N code = IG%) BASOPHIL # (test code = BA#) 0.1 x10 3/uL 0.0-0.1 N - CT ABD PELVIS [id number] 18:23:00 [facility] : 1975 Sex: MPatient Name: ALEX BURROUGHS Unit No: [id number] EXAMS: CPT: [id number] CT ABD PELVIS W/CONT [id number] EXAM: - CT ABD PELVIS W/CONT, on 11/21/2022 2:25 PM HISTORY: Abdominal pain. Hematochezia. History of colitis.COMPARISON: None. TECHNIQUE: Axial CT of abdomen and pelvis was performed with intravenous contrast.Sagittal and coronal reformats were acquired from the axial data. One or more of the following dose r eduction techniques were used: Automated exposure control, adjustment of the mA and/or KV according to patient size, and/or utilization of iterative reconstruction technique. FINDINGS: Lines and Tubes:None. Lower Thorax: Linear atelectasis at the left lung base. Hepatobiliary: No focal hepatic lesions. No biliary ductal dilatation. Gallbladder: No radio-opaque stones or sludge. No wall thickening. Spleen: No splenomegaly. No focal splenic lesions. Pancreas: No focal pancreatic masses. No pancreaticductal dilatation. Adrenals: No adrenal nodules. Kidneys and Ureters: Symmetric renal enhancement. No hydronephrosis. No cystic or solid mass lesions. No stones. GI Tract: Subtle wall thickening/enhancement of the colonic wall, which may reflect sequelae of colitis. No bowel obstruction. Appendix is normal. Pelvic Organs and Bladder: Unremarkable. Abdominopelvic Lymph Nodes: No enlarged lymph nodes. Vessels: Unremarkable. Peritoneum and Retroperitoneum: No free air or fluid. Bones and Soft Tissues: Unremarkable. IMPRESSION: 1. Subtle wall thickening/enhancement of the colonic wall, which may reflect sequelae of colitis. No significant pericolonic inflammation. [facility] EDPhys: Marvel Morris [address] [facility] : 1975 Age: 47 Sex: M [place], [place] [address]Mxfo No: [id number] Loc: N.ERS Exam Date: 11/21/2022 Status: DEP ER PH: FAX: PAGE 1 Signed Report(CONTINUED) Patient Name: ALEX BURROUGHS Unit No: [id number] EXAMS: CPT: [id number] CT ABD PELVIS W/CONT 99349 (Continued) 2. No obstructive uropathy or bowel obstruction. Normal appendix at 1823 Reported and signed by: MAIA BONILLA MD CC: Marvel HARO Technologist: JENNIFER Kovacs CTDI: 10.99 DLP: 598.17 Trscr Dt/Tm: 11/21/2022(1822) by:[email or web address] Orig Print D/T: S: 11/21/2022 (1825) BATCH NO: N/A Name: NAT BURROUGHSAN [facility] ED Phys: Marvel Morris [address] : 1975 Age: 47 Sex: [place] [address] Loc: N.ERS Exam Date: 11/21/2022 Status: DEP ER PH: FAX: PAGE 2 Signed Report- CT ABD PELVIS [id number] 18:23:00 [facility] [facility] : 1975 Sex: MPatient Name: ALEX BURROUGHS Unit No: [id number] EXAMS: CPT: [id number] CT ABD PELVIS W/CONT 81722 EXAM: - CT ABD PELVIS W/CONT, on 11/21/2022 2:25 PM HISTORY: Abdominal pain. Hematochezia. History of colitis. COMPARISON: None. TECHNIQUE: Axial CT of abdomen and pelvis was performed with intravenous contrast. Sagittal and coronal reformats were acquired from the axial data. One or more of the following dose reduction techniques were used: Automated exposure control, adjustment of the mA and/or KV according to patient size, and/or utilization of iterative reconstruction technique. FINDINGS: Lines and Tubes: None. Lower Thorax: Linear atelectasis at the left lung base. Hepatobiliary: No focal hepatic lesions. No biliary ductal dilatation. Gallbladder: No radio-opaque stones or sludge. No wall thickening. Spleen: No splenomegaly. No focal splenic lesions. Pancreas: No focal pancreatic masses. No pancreatic ductal dilatation. Adrenals: No adrenal nodules. Kidneys and Ureters: Symmetric renal enhancement. Nohydronephrosis. No cystic or solid mass lesions. No stones. GI Tract: Subtle wall thickening/enhancement of the colonic wall, which may reflect sequelae of colitis. No bowel obstruction. Appendix is normal. Pelvic Organs and Bladder: Unremarkable. Abdominopelvic Lymph Nodes: No enlarged lymph nodes. Vessels: Unremarkable. Peritoneum and Retroperitoneum: No free air or fluid. Bones and Soft Tissues: Unremarkable. IMPRESSION: 1. Subtle wall thickening/enhancement of the colonic wall, which may reflectsequelae of colitis. No significant pericolonic inflammation. Name: ALEX BURROUGHS [facility] Phys: Marvel Morris [address] [facility] : 1975 Age: 47 Sex: M [place], [place] [address]Fwez No: [id number] Loc: N.ERS Exam Date: 11/21/2022 Status: DEP ER PH: FAX: PAGE 1 Signed Report (CONTINUED) Patient Name: ALEX BURROUGHS Unit No: [id number] EXAMS: CPT: [id number] CT ABD PELVIS W/CONT 03291 (Continued) 2. No obstructive uropathy or bowel obstruction. Normal appendix at 1823 Reported and signed by: MAIA BONILLA MD CC: Marvel HARO Technologist: JENNIFER Kovacs CTDI: 10.99 DLP: 598.17 Trscr Dt/Tm: 11/21/2022(1822) by:[email or web address] Orig Print D/T: S: 11/21/2022 (1825) BATCH NO: N/A Name: ALEX BURROUGHS [facility] Phys: Marvel Morris [address] [facility] : 1975 Age: 47 Sex: [place] [address] Loc: N.ERS Exam Date: 11/21/2022 Status: DEP ER PH: FAX: PAGE 2 Signed ReportBASIC METABOLIC [id number] 16:50:00 Test Item Value Reference Range Interpretation Comments SODIUM (test code 137 mmol/L 135-145 N = NA) POTASSIUM (test 4.2 mmol/L 3.6-5.0 N code = K) CHLORIDE (test 104 mmol/L 101-111 N code = CL) CARBON DIOXIDE 26 mmol/L 21-31 N (test code = CO2) GLUCOSE (test code 128 mg/dl 70-100 H = GLU) BLOOD UREA 9 mg/dl 6-20 N NITROGEN (test code = BUN) GLOMERULAR >=60 max >60 The Glomerular FILTRATION RATE estimate Filtration R ate is a (test code = GFR) calculated parameterbased on serum Creatinin e, patient age and sex. GFR valuesless than 60 mL/min/1.73 square meters are walker cative ofChronic Kidne y Disease. Values less than 15 mL/min/1.73squa re meters indicate Kidney failure. The calculation for GFR is based on the CK D-EPI (2020) calculat ion. This formulais race indifferent and is the recommended formula for GFR by the National Kidney Foundation for Adults.The GFR will not calculate i f the sex is unknown or if thepatient's ag e is <18 years. CREATININE (test 0.93 mg/dL 0.64-1.27 N code = CREAT) CALCIUM (test code 8.6 mg/dL 8.5-10.5 N = CA) LIVER FUNCTION [id number] 16:50:00 Test Item Value Reference Range Interpretation Comments TOTAL PROTEIN (test code = PROT) 6.8 g/dL 6.7-8.2 N ALBUMIN (test code = ALB) 3.4 g/dL 3.2-5.5 N BILIRUBIN TOTAL (test code = BILT) 0.10 mg/dL 0.2-1.3 L BILIRUBIN DIRECT (test code = 0.1 mg/dL 0.00-0.20 N BILD) SGOT/AST (test code = AST) 20 U/L 10-42 N SGPT/ALT (test code = ALT) 17 U/L 10-60 N ALKALINE PHOSPHATASE (test code = 62 U/L 42-121 N ALKP) [id number] 16:50:00 Test Item Value Reference Range Interpretation Comments LIPASE (test code = LIP) 34 IU/L 22-51 N UA RFLX MICR CULT IF [id number] 16:38:00 Test Item Value Reference Range Interpretation Comments UA COLOR (test code = YELLOW YELLOW COLU) UA APPEARANCE (test Clear CLEAR code = APPU) UA GLUCOSE DIPSTICK NEGATIVE NEGATIVE (test code = DGLUU) UA BILIRUBIN DIPSTICK NEGATIVE NEGATIVE (test code = BILU) UA KETONE DIPSTICK NEGATIVE NEGATIVE (test code = KETU) UA SPECIFIC GRAVITY 1.027 1.001-1.030 (test code = SGU) UA BLOOD DIPSTICK (test NEGATIVE NEGATIVE code = AMANDA) UA PH DIPSTICK (test 7.0 5.0-9.0 code = ZION) UA PROTEIN DIPSTICK NEGATIVE NEGATIVE (test code = PROU) UA UROBILINOGEN NEGATIVE See_Comment [Automated message] DIPSTICK (test code = The sy stem which URO) generated this result transmitted ref erence range: <=1.0. T he reference range was not used to int erpret this result as normal/abnormal . UA NITRITE DIPSTICK NEGATIVE NEGATIVE (test code = DANIA) UA ASCORBIC ACID NEGATIVE DIPSTICK (test code = AAU) UA LEUKOCYTE ESTERASE NEGATIVE NEGATIVE DIPSTICK (test code = LEUU) UA WBC (test code = 0-5 /HPF 0-5 WBCUR) UA RBC (test code = 0-5 /HPF 0-5 RBCU) UA EPITHELIAL CELLS RARE /LPF NONE-FEW (test code = EPIU) UA BACTERIA (test code None /HPF NONE SEEN = BACU) UA MUCUS (test code = 1+ /LPF NONE SEEN MUCU) Indication for culture: Suprapubic PainSpecimen Description: CLEAN CATCHCBC W/AUTO [id number] 15:23:00 Test Item Value Reference Range Interpretation Comments WHITE BLOOD CELL (test code = 7.5 x10 3/uL 3.2-11.5 N WBC) RED BLOOD CELL (test code = 5.13 x10(6)/m 4.20-5.70 N RBC) HEMOGLOBIN (test code = HGB) 13.0 g/dL 12.9-17.3 N HEMATOCRIT (test code = HCT) 41.4 % 38.7-51.0 N MEAN CELL VOLUME (test code = 81 fL 80-100 N MCV) MEAN CELL HGB (test code = MCH) 25.3 pg 26.7-33.3 L MEAN CELL HGB CONCENTRATION 31.4 g/dL 30.0-34.0 N (test code = MCHC) RED CELL DISTRIBUTION WIDTH 15.5 % 11.3-14.5 H (test code = RDW) PLATELET COUNT (test code = 326 x10 3/uL 130-408 N PLT) MEAN PLATELET VOLUME (test code 10.3 fL 8.6-12.6 N = MPV) NEUTROPHIL % (test code = NT%) 68.2 % 40.0-70.0 N LYMPHOCYTE % (test code = LY%) 18.3 % 20-40 L MONOCYTE % (test code = MO%) 9.5 % 1-10 N EOSINOPHIL % (test code = EO%) 2.4 % 0.0-5.0 N BASOPHIL % (test code = BA%) 1.2 % 0.0-1.0 H NUCLEATED RBC % (test code = 0.0 % 0.0-0.9 N NRBC%) NEUTROPHIL # (test code = NT#) 5.1 x10 3/uL 1.6-7.2 N LYMPHOCYTE # (test code = LY#) 1.36 x10 3/uL 1.1-2.7 N MONOCYTE # (test code = MO#) 0.7 x10 3/uL 0.3-0.8 N EOSINOPHIL # (test code = EO#) 0.2 x10 3/uL 0.0-0.5 N IMMATURE GRANULOCYTE % (test 0.4 % 0.0-2.0 N code = IG%) BASOPHIL # (test code = BA#) 0.1 x10 3/uL 0.0-0.1 N COMP. METABOLIC PANEL ([id number])2022-08-24 22:30:45 Test Item Value Reference Range Interpretation Comments NA (test code = 137 mmol/L 135-145 5275769756) K (test code = 4.1 mmol/L 3.5-5.0 7327131955) CL (test code = 105 mmol/L 98-108 2281534210) CO2 TOTAL (test code 26 mmol/L 23-31 = 5401895379) AGAP (test code = 2-16 6925850080) BUN (test code = 10 mg/dL 7-23 3946188836) GLUCOSE (test code = 95 mg/dL 70-110 2743618953) CREATININE (test code 0.93 mg/dL 0.60-1.25 = 0806599515) TOTAL BILI (test code 0.5 mg/dL 0.1-1.1 = 1890525930) CALCIUM (test code = 8.8 mg/dL 8.6-10.6 6875074660) T PROTEIN (test code 7.1 g/dL 6.3-8.2 = 9875391232) ALBUMIN (test code = 4.0 g/dL 3.5-5.0 0198233733) ALK PHOS (test code = 80 U/L 34-122 2631387235) ALTv (test code = 19 U/L 5-50 1742-6) AST(SGOT) (test code 25 U/L 13-40 = 6347201620) eGFR (test code = mL/min/1.73m2 3485416708) ROBERTO (test code = ROBERTO) Association of [...] or urine or abnormalities in imaging tests). [facility] WITH [id number] 22:14:06 Test Item Value Reference Range Interpretation Comments WBC (test code = See_Comment [Automated 9590-2) message] The sy stem which generated this result transmitted reference range : 4.20 - 10.70 10*3/?L. The reference range was not used to interpret this result as normal/abnormal . RBC (test code = See_Comment H [Automated 789-8) message] The sy stem which [...] (test code = 54.9 fL 38.5-51.6 H 66394-4) RDW-CV (test code = 21.0 % 12.1-15.4 H 788-0) PLT (test code = See_Comment H [Automated 777-3) message] The sy stem which generated this result transmitted reference range : 150 - 328 10*3/ ?L. The reference r carlota was not used to interpret this result as normal/abnormal . MPV (test code = 10.1 fL 9.8-13.0 09128-7) NRBC/100 WBC (test See_Comment [Automat ed code = 5858956712) message] The system which generated this result transmitted reference range : 0.0 - 10.0 /100 WBCs. The refer ence range was not u sed to interpret th is result as normal/abnormal . NRBC x10^3 (test code See_Comment [Auto mated = 8481892644) message] The s ystem which generated this result transmitted reference range : 10*3/?L. The reference range was not used to interpret this result as normal/abnormal . GRAN MAT (NEUT) % 52.4 % (test code = 770-8) IMM GRAN % (test code 0.30 % = 8821360570) LYMPH % (test code = 23.7 % 736-9) MONO % (test code = 15.7 % 5905-5) EOS % (test code = 6.3 % 713-8) BASO % (test code = 1.6 % 706-2) GRAN MAT x10^3(ANC) 3.94 10*3/uL 1.99-6.95 (test code = 8381379789) IMM GRAN x10^3 (test 0.00-0.06 code = 8875322055) LYMPH x10^3 (test code 1.78 10*3/uL 1.09-3.23 = 731-0) MONO x10^3 (test code 1.18 10*3/uL 0.36-1.02 H = 742-7) EOS x10^3 (test code = 0.47 10*3/uL 0.06-0.53 711-2) BASO x10^3 (test code 0.12 10*3/uL 0.01-0.09 H = 704-7) Lab Interpretation Abnormal (test code = 95979-2) [facility] [id number] 21:51:41 Test Item Value Reference Range Interpretation Comments LACTIC ACID (test code = 1.02 mmol/L 0.50-2.20 1851149141) Lab Interpretation (test code = Normal 15079-5) [facility]. METABOLIC PANEL (55700)2022-07-03 05:30:27 Test Item Value Reference Range Interpretation Comments NA (test code = 140 mmol/L 135-145 6678509561) K (test code = 4.2 mmol/L 3.5-5.0 5973220472) CL (test code = 105 mmol/L 98-108 2375697714) CO2 TOTAL (test code 30 mmol/L 23-31 = 6288009143) AGAP (test code = 2-16 4681502198) BUN (test code = 13 mg/dL 7-23 8145911368) GLUCOSE (test code = 92 mg/dL 70-110 5303694202) CREATININE (test code 0.89 mg/dL 0.60-1.25 = 1906557013) TOTAL BILI (test code 0.4 mg/dL 0.1-1.1 = 4996977540) CALCIUM (test code = 9.2 mg/dL 8.6-10.6 6252657761) T PROTEIN (test code 7.2 g/dL 6.3-8.2 = 2356202738) ALBUMIN (test code = 4.3 g/dL 3.5-5.0 4511896657) ALK PHOS (test code = 62 U/L 34-122 6221242455) ALTv (test code = 19 U/L 5-50 1742-6) AST(SGOT) (test code 32 U/L 13-40 = 1984590506) eGFR (test code = mL/min/1.73m2 7033751757) ROBERTO (test code = ROBERTO) Association of [...] or urine or abnormalities in imaging tests). [facility] WITH [id number] 04:54:46 Test Item Value Reference Range Interpretation Comments WBC (test code = See_Comment [Automated 7790-2) message] The sy stem which generated this [...] RDW-SD (test code = 47.4 fL 38.5-51.6 50937-1) RDW-CV (test code = 18.8 % 12.1-15.4 H 788-0) PLT (test code = See_Comment H [Automated 777-3) message] The sy stem which generated this result transmitted reference range : 150 - 328 10*3/ ?L. The reference r carlota was not used to interpret this result as normal/abnormal . MPV (test code = 9.9 fL 9.8-13.0 95786-8) NRBC/100 WBC (test See_Comment [Automat ed code = 5990739974) message] The system which generated this result transmitted reference range : 0.0 - 10.0 /100 WBCs. The refer ence range was not u sed to interpret th is result as normal/abnormal . NRBC x10^3 (test code See_Comment [Auto mated = 0730358793) message] The s ystem which generated this result transmitted reference range : 10*3/?L. The reference range was not used to interpret this result as normal/abnormal . GRAN MAT (NEUT) % 52.0 % (test code = 770-8) IMM GRAN % (test code 0.30 % = 2028591035) LYMPH % (test code = 28.1 % 736-9) MONO % (test code = 16.8 % 5905-5) EOS % (test code = 1.6 % 713-8) BASO % (test code = 1.2 % 706-2) GRAN MAT x10^3(ANC) 3.91 10*3/uL 1.99-6.95 (test code = 9984925422) IMM GRAN x10^3 (test 0.00-0.06 code = 1662840293) LYMPH x10^3 (test code 2.11 10*3/uL 1.09-3.23 = 731-0) MONO x10^3 (test code 1.26 10*3/uL 0.36-1.02 H = 742-7) EOS x10^3 (test code = 0.12 10*3/uL 0.06-0.53 711-2) BASO x10^3 (test code 0.09 10*3/uL 0.01-0.09 = 704-7) Lab Interpretation Abnormal (test code = 90345-7) [facility] [id number] 15:55:55 Test Item Value Reference Range Interpretation Comments Case Report (test code Surgical Pathology ? ? = [id number]) ?Case: [id number] ? Authorizing Provider: ?Marybel Sexton MD ? ? ? Collected: ? 05/13/2022 1129 ?Ordering Location: ? ? [facility] ? ? ?Received: ?05/13/2022 1621 ? [facility] ?Pathologist: ? Coleen Rosario MD ? Specimens: ? A) - LARGE INTESTINE, LEFT-DESCENDING COLON, random biopsies ? B) - LARGE INTESTINE, SIGMOID COLON, random biopsies ? C) - RECTUM, Random biopsies ? Final Diagnosis (test c4rzhMOzPQNot1jeXCLwtW code = 4728046464) FuZzEwMzNcZnRuYmpcdWMx IHtccnRmMVxlcGljMTAxMD TlND4qtPeplZl5rWmuOPKi tvI0dAWxIHokp7frUBW6r4 rcnqbtAMMrWZfjTb6xkPJe aOssEsYkRAHwQFu0qR30BQ ZviB6jwYDrLJw5RWQnmNNk swJdCtTqXPJrkSDnhDS3DR RsGT6pduhdLBskQJesAWZt ozN5IUNcpBUfE9SdGVPjKC 4hizfjJGM4RGpaOZUlESV0 BhLyWNAen8Nnzxo2UoJweU FyZFxwbGFpblxmczIwXHBh vkfscXI6VIevgV61QPOblC kkXUNqXBFmCTIUFZ7YYIZC DWDETPNRL0LIXlXWRxoaMV GSFpEYZBCPPK4BM7j4BLgj RKOghCtbENEaUHhecW1iTJ CqKMBeUDGEME6PBLUpGYTY K0JKLFdHNXadEBxDYXEtBH HWNLQAXIGHDcxbC9CJNRXo NZFNP0CODubqTH0YGcPKV1 HCZCuVCAGQG7FIQOPRVTQU VElDXHBhciAgICAgICAgSU 2PEGlMLoVGBXFHCuIFRG8Z JlWlDONIPSYPWNypBO0OJD BMONXKROSRC5qJLKXZYGQS UFgjRHpUXH6OOKwCLbfoD0 3TO0hTOFVFRPZJRHXJEZwr YXIgICAgICAgIFNFVkVSRU xZIEFDVElWRSBDSFJPTklD IENPTElUSVNccGFyICAgIC 2bMo3jE6KRYbSDH86YXI7B FWCMR1NPNBCIDBKIGCGYEA lGSUVEIFxwYXJccGFyXGxp IMRrSEZcCBS8JPrwkC90NM QuUk0vE47SD04wGGLKZ79O KNUbOJJCGgKLZOKYNV4ZF9 g5MTakSGIycOgoUQDcXBrc nC2jIDVtKQ6mL01VL54HJe MMWNFAI1ZyV1dAFDJWYRBA OzrtR4CSQTGIFTaGYUQFMw lQVCBBQlNDRVNTLCBJTkNS RUFTRUQgTFlNUEhPUExBU0 6UA2aUWHTjlZSxKGGiDPPr XK5BNTcVRyWEMODFBxUHEE 8DKlJwHNFYJUASFDdsHV7E WGGEVGDUKVQHO5gJFQWDEX QMEZrjDGfTHO2WEGkWTanq R9KMJXMiLMQUGUNJXSQwyF KzATDaDPHzH72NN6wMREXA VCBXSVRIIFNFVkVSRUxZIE FDVElWRSBDSFJPTklDIENP DOeYAXAwqXDgRIZiXU2mIs 7cT6DQLrOQV62FOQ5AFOBG O4ZNGSTOZXQNGLFROUaWEA VEIFxwYXJccGFyXGxpNDUw YDLyMEL0UHsfqP24MEHnCs 0tKzTYXBRAOBUAZO5GT57y QklPUFNZOiBccGFyXGxpMF xmaTBcbGluMCAgICAtIENP KZ8QNIAaJJIEY7SREPuFNW ggVUxDRVIsIENSWVBUSVRJ KqvgI0JUGYMbZACIX6RMRm qfJR6ZFvLEZ3EGUHyKMLZV P5CFVTBLSQFGVDeACWSwsw AgICAgIElORklMVFJBVEUg VI7xPIJGEE5MZBNBM8BNEZ EsIEFORCBDUllQVCBBUkNI TMETH5SJZwERKYGCG2PQVo EZG14jZINEVFJDIJCOX7Rl L2QIBXwtTULcEWWbHYMLZ4 6WAWPVUQ3ZUZgFSOieZ5DO RVJFTFkgQUNUSVZFIENIUk 8GXPZcCBFYT0NBOSjCOBFm rmPwFADbXU6IVNzOKJ4AJC 9NQSBPUiBEWVNQTEFTSUEg SURFTlRJRklFRCBccGFyXH AmafjqvmLyNZwyMtk2NQKa CSljWJ1lXIZJSHNvMP6vSO 7nRZOoZPu3TJdcBO9voHMk JANuesZoDcNuLMvzSKM2i5 xydGYxXHNzdGVjZjIyMDAw DMIoo2bkDKRzeJLcLjJkUt NcZnRuYmpcdWMxXGRlZmYw l6lcf499tQZus3mgPBHpQp D2zYGbDYYkbZhfgft5xPap GbDrHDUqn4nytnCuLuKeRR HbSIAsOSGybJYkO358FLZg DUjua6yrk0OxCZFojAHon9 G9SXJTPPvjYgItS171d8ws a7ipbgOlgDK4NWZnGDB6IM fwbwNalzR4VCxcfFFrUeX5 IDtccmVkMFxncmVlbjBcYm f2USLfU161DKC1dZxmx9cj LPG3XRVgPMRtTbtcBj3qoT PhQ797IVKvTQGTGDItqRt5 BSSsosHvqmIrqRFCh763V9 92h9ivVQGnoxAyqOiTzsbr m4ioF398WKGnlWAjnoZbZb DlYWRrcMUxsFA5ORQsUQ2t oubmJVwsOMnjNNAdgtW8IT RldUVyS5AdRCLbLM1sepyv FSC8VAumGQPiROU7XxZoWH Oif4Yylsf1BePskt5btk10 YDB8u0SgnItkQBL0BWG7Mq BuRu8yuMOcAPOrQM3gBvAx nSCySBYfee17rFjyOTnjoh CylJ7jRoQeEJWszUAzICBa IY7jcZNwIKTzzO2qcpftNK BnYnJkcmhlYWRccGdicmRy De1zoJbkCKM0OVqiZ7ufcG 4oLsF0MZsmX9rptJ1ySSq4 WBotdQD4TQZziH0mNJ1pzc too5xmMJmpPLgoTNVkatP8 apA3QXDnnBYnL3PxzF7tBE OjNC2othejy2vhYRO6IAag MAKgQNE7RgLmXFWoa0Ewlc c2SjBju6FaqCLwVQulK65p f902PAEionXfB8hkuUTbch pbxKNpqhnwLAxrktP9KZWx XHBsYWluXGYxXGZzMjBcbG FuZzEwMzNcaGljaFxmMVxk FgOdYFOiMYsiY3jrCxFtJ8 YyXGZzMjBccGFyIEkgaGF2 CAJiBVShq78kaUs1MCKmze bcj9VgISJqtKSvmAQvmO3m kuQob0reBTBxOOXlMJIzA3 BqXLR2xWKgBOJqaEBzlPN2 DQ2xgqCnNU6mIDBoFusqwd WadFOrbeXqMIRfCLybw5rf QA5sRJAhrGurnG8usWF7KC Vei4pynBGhpMXln2big6Ez bmFtZShzKSBtYXkgYXBwZW VbMB0wIPSqfZTkqwRhh5V2 BnptoBFrdhbsLbnavsH1YS uapzmsVPOmHRlgP3fiGzFo KBOnmYqqVhihi9IxQTWeCV ZzMjhccGFyfX0= Final Diagnosis Comment b6ncwADjFAZxnJSsLZKiF2 (test code = jxpeGgAWHvkVLnJ7Ixsnea 3477152386) CWxkXW0bOH8ozIwgwXSyoD AfCBJoFzIwe5jfb835lBRe b2gqIMFUlpuqwZq0xTrvO9 5yk6J6CcgbV76ydPRlNAJ8 IFCbNWJuzYFkVYZzUAW0ZZ XjvVNrO3vtZZUaKW0zemza CNlhUEkmPTZmrCQ4QJDrpK QjA4VrRJLgNFfsTJNrrof0 XcWyVd6sxAFtpDfrYJhsRR JkXHBsYWluXGZzMjAgRHIu WZJivVGgXTRlsyW8cGL4QF LahUkwUREcw3FzNY6aNLXq irQ9dnEgw9m0dNC0yVJnRF qfZ18wd7ltUnHeHHOaqc2= Clinical Information colitis (test code = 6873618238) Gross Description (test c4xwaQNsZRDqlJOMQLNlLY code = 2439606083) VsLW0iwMpamMz6lIpoMYEr ciU3bXYtNXamy5btXXJ9a7 llbiANClxkZWZmMVxwYXBl npegQxE8YPfuQAIhaeywPV f4EBypVMLyjDB9WHEajCHo J8GjSKTaYO2ypdp6NSG0MJ vtKWEbZtH0XJKjGtMwFdqk VEw0PBZmjbX6Ops3IAZdNJ FlfMHwd8L9KOlwvpgiDIOr vECdG421SGlhy2FjjXMpLV pccGFyZCANCntcKlxlcGlj k6OnbBLsMBhhGGLoANYaYB bzlvroCHl5TFJzCVgieMBe RW6jrWqeTzfgkJjyh9IjbS BcXGlkIDUxMDAyIFxcZGIg DK4IFaTrWMN8LNwkTkjnIP u3PJu4RB1IVvJoVNAyXITo WiV8NIZbUQi3ROwfDN5AIE W9ADR6MGW4SNLgRNGyQsju DVi5UVMcUGijNUZfjPOcMO afWhDvTHUyXLltmQUsIP4m fVxwbGFpblxmczIwIFNQRU ESNKCZHKGspYRgYG7GAXEf HCkwEOFueFFGCNX6WR6hAR ANClxsdHJwYXJcbGluMFxy aD2eRU2HSEe1twRcDHGdTa OeT0NkY8bfQM3rGZNdndPb DBHtxGDfGHLtyjTzl3RzYJ isehJdLIJrnPeuTRX3zXIi CDGnPEQqADGcBB64HDrOSN MgbmFtZSwgVUggbnVtYmVy IGBgIGxhcmdlIGludGVzdG utPCcptMZcbQNyCITiCB3a wO1rDVAyKG2tf01iFqzebR DsRRNqB3C4AJsYJKCqzzLx K16sy1mehLFdm0OxaGMxeM lwbGUgdGFuLXBpbmsgaXJy TDf3qYJjJXSvPjGolEtuw9 BfYIAwFEwsSW55tnPqWO8v LTAuMyBjbSBncmVhdGVzdC GwfM3eooRxh49nHLApAAS2 YQJyDSL5PLGtBTKkwNVmbx QuL7dkJHszhYIsVyEIxMGx n2KxM5enYI1hnPAgYqzflA WgOFOyiIbpx0XvhWTyQDHc p1KyfSJiYKrlZD3uOEL9Fy 5maSNdYJVzmfZ2f9PwCRmp JLMzGyscqV4eZObdyS6wWQ 3HOEMnrDMNZBH9DU2aAVt4 MXewMQFkF2XgQ6GpduBkmF FoNPQnifHtn2tqAZS7LFFi tVXfbLBmJaAdVqivDQX3RS RcEJxvHH6Pi9yaRLXdoRJo APU6LYlcwHJrVUKyZAOyFL bzYxCuI3UNFQLwCqe0PeE8 UJLaCUi8YWfyJ3ZXBFRhTD UtTzY6YQU0VzY4AUc2MQVC Bx4aRPZ2QRRaQpBhQHF6DV EzOSBcXHQgMiBcXGYgQXJp YWwgXFxmcyAxMCBcXGZsIF plrxB8ZNKhGGqyGMKuJaZt D1ZDL2lLZY6xRebbYIHgJI urmExlfD9wMKYeS86ry8ES p5KtZT1TQUi2kyBixnggaD 1gECMcgpMgSDfpvDVtU3pk JfMlJhDKuORmpW8ahmCKCK cyLMZaJ7MhxrKaWYfjQFPi hw5qrVxlCNmpQfTdiTZrQG dpdGggdGhlIHBhdGllbnRc L7X1fvGwNU2nCEOUGVTvyG 7bBCTuVLLrrOTaS6VunH07 FWT3nZ1gLXZqaIbho8vwTZ KxaK5wMXCbNT6le31cMgzn rPIwSFPuV7D1FYcEEBAxzv EyM29vl9hyiQIik1YegEBb dGlwbGUgdGFuLXllbGxvdy QjppScR3YnMBMpy95ssPL0 tFApeZOiYdSxY58qgePxDK tqClWkVN1xDBDkGYsiHWhu WTF6AFE6CHDcoGFaq1bsyg kdUI2fTZnsZY87KBzpVP5o AYXzNOxkVVHoA4ToJ3K4OL vzXTLpAVLnnFOdhS0hthDe ykDowQp6DQPmTXZ7hSZvyQ faWNMiNizpgZF4HSVkHtOj bgRdy5CizLs4gPGvUNqmYY UwlM1xkM6pNvAmSKrrtqMg GKmrdyAdMNrqNHJgN76tw5 CRg0VsWKLdu3xsjVsbj9Ob dGVuZFxwYXJccGFyZFxzbC 3qCnFej6hyeAc8PUdoykQ3 URBdze6zkMpwiW4xYJq6WZ ajMZEyK6XyS8ZoMXomMCF5 MTAwMiBcXGRiICBPVlIgIi LiBPS8EBQ3QwP1LCm5GHMP GwTvYbBaJlYaJXZ2NzyzJM m6QYn8KMfABlIfNeO4SMB2 ZJClCGI5BKA4YFdbrSJoXZ xcZiBBcmlhbCBcXGZzIDEw ZFfkRalzVWwcD81kqUnxwX 2cKySoQYPQZHTUXW2DJnCI XHBhciANClxwbGFpblxlcG ljTmVzdERvYzEgDQpcbHRy cGFyXGxpbjBccmluMCANCl xsdHJjaFxmczIyIFNwZWNp wALjEQDybRPndbPkGXg5GA YrxE4cKv2fsQMwyO4ecJJc QDmeNYBin1u3nOP1uFVpwB Q3jRDhcBugCaLlMU5zeUAp NKUIGV46cCSktxLcEFVcFX U7fP4gBMIlsqIomRAxgR9g y2dwl5ebAtHyJ9D2TMQtDA Cst96mcIR8cmNxHlD2SSBr cpVvbsHeC0UgYCDrp82caW V4rBGvzDPwRwLgH67qbbEe TMuoOgEjCV7aATJwWYipJU clWMQ7DJH0YBRsmEOgg5zk heqkRT72KVxwLE0bDUkxHE 9xTOTrFTlwBMXxB6ByP5W9 ZIqxBJSuVFLhoWMyeV9zpp NaflBtsFe7HVFeAGS9mLVx gKhxUNRlYsvtdYK6IOBoPr PpjxRkr5CnuSc7hHEgOOcj PGKioR4ozN7fQqGrORbzhf UgXGxpbmUgSnVsaWUgTWNJ aFzinpG8QHOSWAHoQLUCQJ kNClxlcGljTmVzdERvYzBc mxI8UWPdlUQqKED0JB3xJM HamidzEYCeQHBcURL3AXxg sG83rUCzCVExARVhkGZfhE oowDLirqKFPzcilZ2qXbFr m1dtaIv6LPRAHugutJMwyx yckoS4HCNqs4kdaBzao3Fm lUXbFX7nfMireI1iBqHhDg ANCn0= Disclaimer (test code = g5rcnJXkKRDdt9bwWKXhnR [id number]) FuZzEwMzNcZnRuYmpcdWMx GFnfovVgIJxuj2OuE8AbEi AwMFxhbnNpXGRlZmxhbmcx NNErLFB3kvVqTESxGKveMD VdPPzfAz1yuOAqhUkrXkMv UEFwd8kjmmOIEGufErKqP9 54AMHwBXgcn7swx4CoXXDm sUVuq8X1HDMYmgnxuFu4tT ktT53gz8O9NekaI7djRTJg AJGoP1YtVP0hIBZfFfx0CK M8WDI0SJHzRHIhP9ZsBO3i HFTxnPGuVJv9a6vovIdqOA PmOTA8v8qwQDcrfoUoZU9y mt9asWh0y2oqxbQaDHKiKZ XfwACYFHEoX5AafDcnJy1l tCv1hFscShviRAY1Boe4WB 2mcn92vvw4aUelHGSbbmiv DvT9FVxvXUQawfuyTMx1DJ wlDIRohSY0WZXsqDQyR1Rx EVVoVG1gzig2ZUK5GRooUD XfFuV2PSHzaSZaFXDryJuh VXidu166EFX6DkIoUP5iE7 Knc2Q5mV3vhBVzVFXttOQq ThMrRYQcva8gaMUfXQtjx8 EmDII4fiM2sQKwbISwTPGw FJ52Qvbsx5YsPvsql4IqJ8 9xqCI0IWphj9wqLQ1nCyO8 vuRpOEmhh1njsZ2oUlH7RZ azRF6hFX0pMQSwkE6uttxa XHBnYnJkcmhlYWRccGdicm ThZo7cpTokFMT9JAzmC8zw tV9oHrE4GNasX7slqR2yNC m9IDqwbVZ8ITFxlO9sZW9q fwbul9jcYZuwLSfzFIJkhw D6cqC6IRWeaBMzC0FpaK3o AGKfNN1aujvve4kcBQI9HS ebKQQdOEC3OdNeLEUzr1Gv efw3ZtGlk2VijMYiFFrsL5 4yz427HGIchaAlC8ussUFt wwrgwBJoqxqzXOlfudA1AA XnffZjy9FsCTIqAOU0ZHpb PVowrCAgSZZayAtqi5gcD1 RscGFyXHBsYWluXGYxXGZz MjBcbGFuZzEwMzNcaGljaF qiNHocStFyFQFsJOjlD6hi UxQhL0NbOOUlZpHztGMpV0 ggVGhpcyByZXBvcnQgbWF5 GUawG0b2AISkkoXruFw8cu DwXmJmKAIrHFU9ZYfppKLc TFHjg8EnpppweDRxUf0spD EkAJMgtP4kWEOjHPUoULut JH5siAk6VNRGiBKoyHZmLz HVCKGgKL12vkHzKVBZvpyj g1F8CJntEQNrw3HwqLFzF0 xxb1QmHAUbi26yAX9fp6C8 b5cpLYA3BU4vm3GwJMZylA EjlDAqAKVns7Plnsefr1Re MZOdesEuu7JjOWEdzeGkyB HgBPElhhYcxz7tlvVjWAVg JUJrT3TsrqjnwZmphhHwLV Jtsa8npfRwZNO1HJDIMUVj SJTps5WpqF5inRTTJZQ5eT Vnng3hqbEMhYHoHVNqqx07 PZHuYQ8kF7bfEFXyXQMcdn ZabXCpz6KbHDMczYF5gCLf XC8SPhUVu47fEIZzDLQLml ZcYHGvuAhwlRY9lrD2kT5k IChGREEpLlx+IFRoZSBGRE CbZR5ylmNhn7IziiSnuXwu PTNonQYvc3FobABtm9DtxU gcq7HajCUepVMxKP7vZILs clxwYXIgVVRNQiBMYWJvcm W7i8LjOQVeBEIqEJK2xEzu rjb5LGMlpL9uGKRuO3frtz olHFyqSFExy5TaxH6ugDPU lWYes6BclKQsrKXTiYNtAO 1zrzGlWVaZUJhJDSJ9ucXq JXYrw3DcZCezG1dwQ24iaH pqnIs3oEO2DCK6nQ1sXsp+ IFxwYXJccGFyIEFwcHJvcH EpOWThbUhrvrTfW8OagdKs aO5eePKbcrMlOM7iPE6pY6 J3hIYwCSXzxeAra1bhCOgr dmUgYmVlbiByZXZpZXdlZC Hlr7MlFEpzCNC8XArwqvFz bmNsdWRpbmcgSCZFLCBTcG TcuRVkLJY1XZlgduLcncUe OC3buG2nlUrndC3hmTLheP D4wbnqPRMbASKckQgdQXBi XA6bsIVkQJGkimMQiFkkhQ NjmR8eY7WkLPEnLSQrqf0z FTRkvZ1kRQtqy9WaujfhUJ DxSNGhFRKcmcWcbo4dDEOd rXKYQS5XIKxohEEna8Hugd UeB8mICEX8DQAtEqNpYmtr PFNbwDMmdXAyELHtrd54QG NffE3odNtcIXAxrR3zaH8y tVhekZ3mRqTvZbOsICexDS 2eZDWiA8nifBJaOKBmTAMd U4odGtGzjR0qjVnvHCvwUk AxYzSgCWygYEL6pZ== Embedded Images (test code = [id number]) [facility] Culture - Peripheral # [id number] 20:01:59 Test Item Value Reference Range Interpretation Comments Blood Culture-Aerobic No organisms No growth Previo us (test code = 64073-5) isolated prelim inary verified result was Culture [...] Culture-Anaerobic isolated preliminar y (test code = 00842-5) verifi ed result was Culture In Progress [...] CDT Lab Interpretation Normal (test code = 51227-1) [facility] Culture - Peripheral # [id number] 20:01:59 Test Item Value Reference Range Interpretation Comments Blood Culture-Aerobic No organisms No growth Previo us (test code = 74109-3) isolated prelim inary verified result was Culture [...] Culture-Anaerobic isolated preliminar y (test code = 42869-9) verifi ed result was Culture In Progress [...] CDT Lab Interpretation Normal (test code = 64073-8) [facility] [id number] 20:01:59 Test Item Value Reference Range Interpretation Comments Blood Culture-Aerobic No organisms No growth Previo us (test code = 32523-9) isolated prelim inary verified result was Culture [...] Culture-Anaerobic isolated preliminar y (test code = 71694-4) verifi ed result was Culture In Progress [...] CDT Lab Interpretation Normal (test code = 55870-7) [facility] # [id number] 20:01:59 Test Item Value Reference Range Interpretation Comments Blood Culture-Aerobic No organisms No growth Previo us (test code = 98701-3) isolated prelim inary verified result was Culture [...] Culture-Anaerobic isolated preliminar y (test code = 73068-1) verifi ed result was Culture In Progress [...] CDT Lab Interpretation Normal (test code = 20250-2) [facility] AM[facility]0500 Routine 2022-05-13 13:43:26 Test Item Value Reference Range Interpretation Comments ABO & RH (test code O Positive Performe d at [facility] = 20) Laboratory Serv [facility] [address] [place], [place] [phone] Free: [phone] A No. [id number] IAT (test code = Negative Performed a t [facility] 1185) Laboratory Serv [facility] [address] [place] [phone] Free: [phone] A No. [id number] [facility] AM-0500 Routine 2022-05-13 13:43:26 Test Item Value Reference Range Interpretation Comments ABO & RH (test code O Positive Performe d at [facility] = 20) Laboratory Serv [facility] [address] [place] [phone] Free: [phone] A No. [id number] IAT (test code = Negative Performed a t [facility] 1185) Laboratory Serv [facility] Blood Bank[address] [place] [phone] Free: [phone] A No. [id number] [facility] B12, [id number] 22:16:10 Test Item Value Reference Range Interpretation Comments VIT B12 (test code = 603 pg/mL 240-930 4328670359) ROBERTO (test code = ROBERTO) Biotin has been reported to cause a positive bias, interpret results relative to patient's use of biotin. Lab Interpretation (test Normal code = 47530-8) [facility], [id number] 22:16:10 Test Item Value Reference Range Interpretation Comments VIT B12 (test code = 603 pg/mL 240-930 8997188507) ROBERTO (test code = ROBERTO) Biotin has been reported to cause a positive bias, interpret results relative to patient's use of biotin. Lab Interpretation (test Normal code = 85355-8) [facility], [id number] 21:50:29 Test Item Value Reference Range Interpretation Comments VIT D 25OH (test code = 25-80 L 79636-7) ROBERTO (test code = ROBERTO) Deficiency: <20 ng/mLInsufficiency: 20-24 ng/mLOptimal: 25-80 ng/mL Lab Interpretation (test Abnormal code = 77936-0) [facility], [id number] 21:50:29 Test Item Value Reference Range Interpretation Comments VIT D 25OH (test code = 25-80 L 21719-6) ROBERTO (test code = ROBERTO) Deficiency: <20 ng/mLInsufficiency: 20-24 ng/mLOptimal: 25-80 ng/mL Lab Interpretation (test Abnormal code = 29695-0) [facility]-REACTIVE [id number] 18:56:01 Test Item Value Reference Range Interpretation Comments CRP (test code = 0.9 mg/dL See_Comment H [Automated message] 3919641581) The system [employer] generated this result transmit eunice reference range : <=0.8. The refe rence range was not u sed to interpret th is result as normal/abnormal . Lab Interpretation (test Abnormal code = 63681-1) [facility] [id number] 18:56:01 Test Item Value Reference Range Interpretation Comments CRP (test code = 0.9 mg/dL See_Comment H [Automated message] 3531865265) The system [employer] generated this result transmit eunice reference range : <=0.8. The refe rence range was not u sed to interpret th is result as normal/abnormal . Lab Interpretation (test Abnormal code = 40740-7) [facility] STIMULATING [id number] 13:43:08 Test Item Value Reference Range Interpretation Comments TSH (test code = See_Comment H [Automated message] 0312055356) The system [employer] generated this result transmitted ref erence range: 0.45 - 4 .70 mIU/L. The refe rence range was not u sed to interpret this result as normal/abnor mal. Lab Interpretation (test Abnormal code = 90456-0) [facility] [id number] 13:43:08 Test Item Value Reference Range Interpretation Comments TSH (test code = See_Comment H [Automated message] 8112718877) The system [employer] generated this result transmitted ref erence range: 0.45 - 4 .70 mIU/L. The refe rence range was not u sed to interpret this result as normal/abnor mal. Lab Interpretation (test Abnormal code = 51272-5) [facility]-TERMINAL [id number] 13:21:44 Test Item Value Reference Range Interpretation Comments NT-proBNP (test code 54 pg/mL See_Comment [Autom ated = 8324787938) message] The system which generated this result transmitted reference range : <=125. The reference range was not used to interpret this result as normal/abnormal . ROBERTO (test code = ROBERTO) Biotin has been reported to cause a negative bias, interpret results relative to patient's use of biotin. Lab Interpretation Normal (test code = 07190-7) [facility] [id number] 13:21:44 Test Item Value Reference Range Interpretation Comments NT-proBNP (test code 54 pg/mL See_Comment [Autom ated = 1385296277) message] The system which generated this result transmitted reference range : <=125. The reference range was not used to interpret this result as normal/abnormal . ROBERTO (test code = ROBERTO) Biotin has been reported to cause a negative bias, interpret results relative to patient's use of biotin. Lab Interpretation Normal (test code = 97726-1) [facility]bergLIPID PANEL (68133)(TOTAL CHOLESTEROL, TRIGLYCERIDES, HDL)2022-05-12 13:12:48 Test Item Value Reference Range Interpretation Comments CHOL (test code = 124 mg/dL 120-200 2267664597) HDL (test code = 27 mg/dL See_Comment L [Automated message] 7777860556) The system [employer] generated this result transmit eunice reference range : >=40. The refer ence range was not u sed to interpret th is result as normal/abnormal . HDLC RATIO (test code = See_Comment [Au tomated message] 6385197635) The system [employer] generated this result transmit eunice reference range : <=5.0. The refe rence range was not u sed to interpret th is result as normal/abnormal . TRIG (test code = 104 mg/dL 30-170 8653405662) LDL CHOL (test code = 76 mg/dL See_Comment [Auto mated message] 62767-0) The system [employer] generated this result transmit eunice reference range : <=160. The refe rence range was not u sed to interpret th is result as normal/abnormal . VLDL (test code = 21 mg/dL 5-60 8892213364) Lab Interpretation (test Abnormal code = 48166-5) [facility] BranchLIPID PANEL (97244)(TOTAL CHOLESTEROL, TRIGLYCERIDES, HDL)2022-05-12 13:12:48 Test Item Value Reference Range Interpretation Comments CHOL (test code = 124 mg/dL 120-200 1177125814) HDL (test code = 27 mg/dL See_Comment L [Automated message] 6726976658) The system [employer] generated this result transmit eunice reference range : >=40. The refer ence range was not u sed to interpret th is result as normal/abnormal . HDLC RATIO (test code = See_Comment [Au tomated message] 3059683246) The system [employer] generated this result transmit eunice reference range : <=5.0. The refe rence range was not u sed to interpret th is result as normal/abnormal . TRIG (test code = 104 mg/dL 30-170 1174229139) LDL CHOL (test code = 76 mg/dL See_Comment [Auto mated message] 16931-1) The system [employer] generated this result transmit eunice reference range : <=160. The refe rence range was not u sed to interpret th is result as normal/abnormal . VLDL (test code = 21 mg/dL 5-60 7402340999) Lab Interpretation (test Abnormal code = 07963-9) [facility]47 Test Item Value Reference Range Interpretation Comments MAGNESIUM (test code = 9710630645) 1.8 mg/dL 1.7-2.4 Lab Interpretation (test code = Normal 93326-9) [facility] 13:12:47 Test Item Value Reference Range Interpretation Comments MAGNESIUM (test code = 1531914693) 1.8 mg/dL 1.7-2.4 Lab Interpretation (test code = Normal 10874-5) [facility]. METABOLIC PANEL (32524)2022-05-12 13:12:27 Test Item Value Reference Range Interpretation Comments NA (test code = 139 mmol/L 135-145 5204361585) K (test code = 3.5 mmol/L 3.5-5 6595772084) CL (test code = 106 mmol/L 98-108 8922567389) CO2 TOTAL (test code = 27 mmol/L 23-31 3699301158) AGAP (test code = 2-16 1215742726) BUN (test code = 7 mg/dL 7-23 3508669742) GLUCOSE (test code = 87 mg/dL 70-110 9755821818) CREATININE (test code = 0.89 mg/dL 0.6-1.25 1531290341) TOTAL BILI (test code = 0.3 mg/dL 0.1-1.9 9153422120) CALCIUM (test code = 8.4 mg/dL 8.6-10.6 L 7846399139) T PROTEIN (test code = 6.7 g/dL 6.3-8.2 8389623177) ALBUMIN (test code = 3.5 g/dL 3.5-5 8153538217) ALK PHOS (test code = 81 U/L 34-122 3077066677) ALTv (test code = 13 U/L 5-50 1742-6) AST(SGOT) (test code = 22 U/L 13-40 4658896913) eGFR (test code = mL/min/1.73m2 2407954813) ROBERTO (test code = ROBERTO) Association of [...] tests). Lab Interpretation Abnormal (test code = 65980-4) [facility]2022-[facility]-06 13:12:27 Test Item Value Reference Range Interpretation Comments PHOSPHORUS (test code = 6948850662) 3.8 mg/dL 2.5-5 Lab Interpretation (test code = Normal 21598-2) [facility]. METABOLIC PANEL (81180)2022-05-12 13:12:27 Test Item Value Reference Range Interpretation Comments NA (test code = 139 mmol/L 135-145 9217993937) K (test code = 3.5 mmol/L 3.5-5 3252622134) CL (test code = 106 mmol/L 98-108 2444499943) CO2 TOTAL (test code = 27 mmol/L 23-31 5216061244) AGAP (test code = 2-16 3641220642) BUN (test code = 7 mg/dL 7-23 2186375042) GLUCOSE (test code = 87 mg/dL 70-110 6093715144) CREATININE (test code = 0.89 mg/dL 0.6-1.25 0762508810) TOTAL BILI (test code = 0.3 mg/dL 0.1-1.3 6981645440) CALCIUM (test code = 8.4 mg/dL 8.6-10.6 L 7098884156) T PROTEIN (test code = 6.7 g/dL 6.3-8.2 5089402335) ALBUMIN (test code = 3.5 g/dL 3.5-5 2785439278) ALK PHOS (test code = 81 U/L 34-122 3868260381) ALTv (test code = 13 U/L 5-50 1742-6) AST(SGOT) (test code = 22 U/L 13-40 1652949561) eGFR (test code = mL/min/1.73m2 7140354280) ROBERTO (test code = ROBERTO) Association of [...] tests). Lab Interpretation Abnormal (test code = 50310-5) [facility]2022-[facility]-06 13:12:27 Test Item Value Reference Range Interpretation Comments PHOSPHORUS (test code = 8939904304) 3.8 mg/dL 2.5-5 Lab Interpretation (test code = Normal 84854-7) [facility] WITH [id number] 13:09:25 Test Item Value Reference Range Interpretation [...] RDW-SD (test code = 39.2 fL 38.5-51.6 20315-7) RDW-CV (test code = 14.7 % 12.1-15.4 788-0) PLT (test code = See_Comment H [Automated 777-3) message] The sy stem which generated this result transmitted reference range : 150 - 328 10*3/ ?L. The reference r carlota was not used to interpret this result as normal/abnormal . MPV (test code = 10.1 fL 9.8-13 48953-8) NRBC/100 WBC (test See_Comment [Automat ed code = 8193635854) message] The system which generated this result transmitted reference range : 0.0 - 10.0 /100 WBCs. The refer ence range was not u sed to interpret th is result as normal/abnormal . NRBC x10^3 (test code See_Comment [Auto mated = 1043362621) message] The s ystem which generated this result transmitted reference range : 10*3/?L. The reference range was not used to interpret this result as normal/abnormal . GRAN MAT (NEUT) % 46.1 % (test code = 770-8) IMM GRAN % (test code 0.10 % = 2129040357) LYMPH % (test code = 33.9 % 736-9) MONO % (test code = 11.8 % 5905-5) EOS % (test code = 6.3 % 713-8) BASO % (test code = 1.8 % 706-2) GRAN MAT x10^3(ANC) 3.27 10*3/uL 1.99-6.95 (test code = 6496857569) IMM GRAN x10^3 (test 0-0.06 code = 6203782761) LYMPH x10^3 (test code 2.41 10*3/uL 1.09-3.23 = 731-0) MONO x10^3 (test code 0.84 10*3/uL 0.36-1.02 = 742-7) EOS x10^3 (test code = 0.45 10*3/uL 0.06-0.53 711-2) BASO x10^3 (test code 0.13 10*3/uL 0.01-0.09 H = 704-7) Lab Interpretation Abnormal (test code = 65771-6) [facility] WITH [id number] 13:09:25 Test Item Value Reference Range Interpretation [...] RDW-SD (test code = 39.2 fL 38.5-51.6 79267-9) RDW-CV (test code = 14.7 % 12.1-15.4 788-0) PLT (test code = See_Comment H [Automated 777-3) message] The sy stem which generated this result transmitted reference range : 150 - 328 10*3/ ?L. The reference r carlota was not used to interpret this result as normal/abnormal . MPV (test code = 10.1 fL 9.8-13 02279-7) NRBC/100 WBC (test See_Comment [Automat ed code = 1715437020) message] The system which generated this result transmitted reference range : 0.0 - 10.0 /100 WBCs. The refer ence range was not u sed to interpret th is result as normal/abnormal . NRBC x10^3 (test code See_Comment [Auto mated = 6587210612) message] The s ystem which generated this result transmitted reference range : 10*3/?L. The reference range was not used to interpret this result as normal/abnormal . GRAN MAT (NEUT) % 46.1 % (test code = 770-8) IMM GRAN % (test code 0.10 % = 2306213282) LYMPH % (test code = 33.9 % 736-9) MONO % (test code = 11.8 % 5905-5) EOS % (test code = 6.3 % 713-8) BASO % (test code = 1.8 % 706-2) GRAN MAT x10^3(ANC) 3.27 10*3/uL 1.99-6.95 (test code = 0407349420) IMM GRAN x10^3 (test 0-0.06 code = 8445823475) LYMPH x10^3 (test code 2.41 10*3/uL 1.09-3.23 = 731-0) MONO x10^3 (test code 0.84 10*3/uL 0.36-1.02 = 742-7) EOS x10^3 (test code = 0.45 10*3/uL 0.06-0.53 711-2) BASO x10^3 (test code 0.13 10*3/uL 0.01-0.09 H = 704-7) Lab Interpretation Abnormal (test code = 92563-7) [facility]th[facility] / [id number] 13:06:44 Test Item Value Reference Range Interpretation Comments PROTIME PATIENT (test See_Comment H [Auto mated message] code = 5964-2) The system [employer] generated this result transmitted ref erence range: 12.0 - 1 4.7 Seconds. The reference range was not used to int erpret this result as normal/abnormal . INR (test code = 6301-6) Nor mal INR <1.1; Warfarin Therap eutic range 2.0 to 3. 0 or 2.5 to 3.5, dep ending upon the indica tions. Lab Interpretation (test Abnormal code = 03682-3) [facility] / [id number] 13:06:44 Test Item Value Reference Range Interpretation Comments PROTIME PATIENT (test See_Comment H [Auto mated message] code = 5964-2) The system [employer] generated this result transmitted ref erence range: 12.0 - 1 4.7 Seconds. The reference range was not used to int erpret this result as normal/abnormal . INR (test code = 6301-6) Nor mal INR <1.1; Warfarin Therap eutic range 2.0 to 3. 0 or 2.5 to 3.5, dep ending upon the indica tions. Lab Interpretation (test Abnormal code = 54153-2) [facility] [id number] 02:59:10 Test Item Value Reference Range Interpretation Comments ESR (test code = See_Comment H [Automated message] 73605-1) The system [employer] generated this result transmitted ref erence range: 0 - 10 m m/HR. The reference r carlota was not used to interpret this result as normal/abnor mal. Lab Interpretation (test Abnormal code = 18871-6) [facility] [id number] 02:59:10 Test Item Value Reference Range Interpretation Comments ESR (test code = See_Comment H [Automated message] 75326-2) The system [employer] generated this result transmitted ref erence range: 0 - 10 m m/HR. The reference r carlota was not used to interpret this result as normal/abnor mal. Lab Interpretation (test Abnormal code = 37760-1) [facility]berg[facility]YCOSYL[facility] HEMOGLOBIN (A1C)2022-05-12 02:20:40 Test Item Value Reference Range Interpretation Comments HGB A1C (test code = 6.1 % 4-5.7 H 4548-4) ROBERTO (test code = ROBERTO) Reference RangesNormal: <5.7%Prediabetes: 5.7 - 6.4%Diabetes: > 6.5% Lab Interpretation (test Abnormal code = 46523-9) [facility] (A1C)2022-05-12 02:20:40 Test Item Value Reference Range Interpretation Comments HGB A1C (test code = 6.1 % 4-5.7 H 4548-4) ROBERTO (test code = ROBERTO) Reference RangesNormal: <5.7%Prediabetes: 5.7 - 6.4%Diabetes: > 6.5% Lab Interpretation (test Abnormal code = 15009-0) [facility]. METABOLIC PANEL (70966)2022-05-11 19:45:12 Test Item Value Reference Range Interpretation Comments NA (test code = 139 mmol/L 135-145 1822542240) K (test code = 4.1 mmol/L 3.5-5 6092722985) CL (test code = 105 mmol/L 98-108 6381670254) CO2 TOTAL (test code 24 mmol/L 23-31 = 5589082310) AGAP (test code = 2-16 0865153154) BUN (test code = 8 mg/dL 7-23 1998322374) GLUCOSE (test code = 84 mg/dL 70-110 5718946774) CREATININE (test code 0.93 mg/dL 0.6-1.25 = 8886882450) TOTAL BILI (test code 0.3 mg/dL 0.1-1.1 = 7221344469) CALCIUM (test code = 9.4 mg/dL 8.6-10.6 7104873070) T PROTEIN (test code 7.3 g/dL 6.3-8.2 = 7253978314) ALBUMIN (test code = 4.0 g/dL 3.5-5 2777907207) ALK PHOS (test code = 85 U/L 34-122 7736407876) ALTv (test code = 14 U/L 5-50 1742-6) AST(SGOT) (test code 21 U/L 13-40 = 0407799733) eGFR (test code = mL/min/1.73m2 6854976648) ROBERTO (test code = ROBERTO) Association of [...] or urine or abnormalities in imaging tests). [facility]. METABOLIC PANEL (32668)2022-05-11 19:45:12 Test Item Value Reference Range Interpretation Comments NA (test code = 139 mmol/L 135-145 4685905827) K (test code = 4.1 mmol/L 3.5-5 4531894509) CL (test code = 105 mmol/L 98-108 7358908086) CO2 TOTAL (test code 24 mmol/L 23-31 = 3252568175) AGAP (test code = 2-16 6139100837) BUN (test code = 8 mg/dL 7-23 9331415326) GLUCOSE (test code = 84 mg/dL 70-110 4273016411) CREATININE (test code 0.93 mg/dL 0.6-1.25 = 7821919893) TOTAL BILI (test code 0.3 mg/dL 0.1-1.1 = 5976355448) CALCIUM (test code = 9.4 mg/dL 8.6-10.6 4611876767) T PROTEIN (test code 7.3 g/dL 6.3-8.2 = 5054784535) ALBUMIN (test code = 4.0 g/dL 3.5-5 8232350862) ALK PHOS (test code = 85 U/L 34-122 6402585984) ALTv (test code = 14 U/L 5-50 1742-6) AST(SGOT) (test code 21 U/L 13-40 = 8966408697) eGFR (test code = mL/min/1.73m2 9663792750) ROBERTO (test code = ROBERTO) Association of [...] or urine or abnormalities in imaging tests). [facility]20[facility] 19:44:31 Test Item Value Reference Range Interpretation Comments LIPASE (test code = 6719193083) 116 U/L 0-220 Lab Interpretation (test code = Normal 78245-7) [facility]2022-[facility]-05 19:44:31 Test Item Value Reference Range Interpretation Comments LIPASE (test code = 9707339527) 116 U/L 0-220 Lab Interpretation (test code = Normal 74594-3) [facility]berg[facility] WITH [id number] 19:33:50 Test Item Value Reference Range Interpretation Comments WBC (test code = See_Comment [Automated 7501-2) message] The sy stem which generated this [...] RDW-SD (test code = 38.9 fL 38.5-51.6 64740-7) RDW-CV (test code = 14.7 % 12.1-15.4 788-0) PLT (test code = See_Comment H [Automated 777-3) message] The sy stem which generated this result transmitted reference range : 150 - 328 10*3/ ?L. The reference r carlota was not used to interpret this result as normal/abnormal . MPV (test code = 10.1 fL 9.8-13 15345-0) NRBC/100 WBC (test See_Comment [Automat ed code = 7110294970) message] The system which generated this result transmitted reference range : 0.0 - 10.0 /100 WBCs. The refer ence range was not u sed to interpret th is result as normal/abnormal . NRBC x10^3 (test code See_Comment [Auto mated = 6684996267) message] The s ystem which generated this result transmitted reference range : 10*3/?L. The reference range was not used to interpret this result as normal/abnormal . GRAN MAT (NEUT) % 50.3 % (test code = 770-8) IMM GRAN % (test code 0.00 % = 4557339372) LYMPH % (test code = 28.7 % 736-9) MONO % (test code = 13.9 % 5905-5) EOS % (test code = 5.3 % 713-8) BASO % (test code = 1.8 % 706-2) GRAN MAT x10^3(ANC) 3.14 10*3/uL 1.99-6.95 (test code = 2774344178) IMM GRAN x10^3 (test 0-0.06 code = 2309536760) LYMPH x10^3 (test code 1.79 10*3/uL 1.09-3.23 = 731-0) MONO x10^3 (test code 0.87 10*3/uL 0.36-1.02 = 742-7) EOS x10^3 (test code = 0.33 10*3/uL 0.06-0.53 711-2) BASO x10^3 (test code 0.11 10*3/uL 0.01-0.09 H = 704-7) Lab Interpretation Abnormal (test code = 93712-2) [facility] WITH [id number] 19:33:50 Test Item Value Reference Range Interpretation Comments WBC (test code = See_Comment [Automated 1090-2) message] The sy stem which generated this result transmitted reference range : 4.20 - 10.70 10*3/?L. The reference range was not used to interpret this result as normal/abnormal . RBC (test code = See_Comment [Automated 699-8) message] The sy stem which generated this [...] RDW-SD (test code = 38.9 fL 38.5-51.6 10950-6) RDW-CV (test code = 14.7 % 12.1-15.4 788-0) PLT (test code = See_Comment H [Automated 677-3) message] The sy stem which generated this result transmitted reference range : 150 - 328 10*3/ ?L. The reference r carlota was not used to interpret this result as normal/abnormal . MPV (test code = 10.1 fL 9.8-13 45653-7) NRBC/100 WBC (test See_Comment [Automat ed code = 8912834241) message] The system which generated this result transmitted reference range : 0.0 - 10.0 /100 WBCs. The refer ence range was not u sed to interpret th is result as normal/abnormal . NRBC x10^3 (test code See_Comment [Auto mated = 3041899657) message] The s ystem which generated this result transmitted reference range : 10*3/?L. The reference range was not used to interpret this result as normal/abnormal . GRAN MAT (NEUT) % 50.3 % (test code = 770-8) IMM GRAN % (test code 0.00 % = 5670217806) LYMPH % (test code = 28.7 % 736-9) MONO % (test code = 13.9 % 5905-5) EOS % (test code = 5.3 % 713-8) BASO % (test code = 1.8 % 706-2) GRAN MAT x10^3(ANC) 3.14 10*3/uL 1.99-6.95 (test code = 8555275483) IMM GRAN x10^3 (test 0-0.06 code = 7668483995) LYMPH x10^3 (test code 1.79 10*3/uL 1.09-3.23 = 731-0) MONO x10^3 (test code 0.87 10*3/uL 0.36-1.02 = 742-7) EOS x10^3 (test code = 0.33 10*3/uL 0.06-0.53 711-2) BASO x10^3 (test code 0.11 10*3/uL 0.01-0.09 H = 704-7) Lab Interpretation Abnormal (test code = 59942-1) [facility] - ONCE [id number] 03:41:38 Test Item Value Reference Range Interpretation Comments ABO & RH (test code O Positive Performe d at [facility] = 20) Laboratory Serv [facility] Blood [facility] [place] [phone] Free: [phone] A No. [id number] IAT (test code = Negative Performed a t [facility] 1185) Laboratory Serv [facility] Blood [facility] [place] [phone] Free: [phone] A No. [id number] [facility] METABOLIC PANEL (99958)2022-05-10 03:15:48 Test Item Value Reference Range Interpretation Comments NA (test code = 135 mmol/L 135-145 5754771764) K (test code = 4.2 mmol/L 3.5-5 8675734024) CL (test code = 104 mmol/L 98-108 2549502722) CO2 TOTAL (test code = 23 mmol/L 23-31 0289010085) AGAP (test code = 2-16 9943578135) BUN (test code = 9 mg/dL 7-23 7824526530) GLUCOSE (test code = 100 mg/dL 70-110 3248848636) CREATININE (test code = 0.89 mg/dL 0.6-1.25 7853660220) TOTAL BILI (test code = 0.3 mg/dL 0.1-1.4 5441624214) CALCIUM (test code = 8.5 mg/dL 8.6-10.6 L 7988091882) T PROTEIN (test code = 6.6 g/dL 6.3-8.2 3993027004) ALBUMIN (test code = 3.6 g/dL 3.5-5 3441666296) ALK PHOS (test code = 80 U/L 34-122 5639710911) ALTv (test code = 13 U/L 5-50 1742-6) AST(SGOT) (test code = 22 U/L 13-40 5966737328) eGFR (test code = mL/min/1.73m2 2647093516) ROBERTO (test code = ROBERTO) Association of [...] tests). Lab Interpretation Abnormal (test code = 01284-3) [facility] 03:15:08 Test Item Value Reference Range Interpretation Comments LIPASE (test code = 8763481847) 105 U/L 0-220 Lab Interpretation (test code = Normal 06976-2) [facility] WITH [id number] 03:02:08 Test Item Value Reference Range Interpretation Comments WBC (test code = See_Comment [Automated 5208-2) message] The sy stem which generated this result transmitted reference range : 4.20 - 10.70 10*3/?L. The reference range was not used to interpret this result as normal/abnormal . RBC (test code = See_Comment L [Automated 049-1) message] The sy stem which generated this [...] (test code = 38.0 fL 38.5-51.6 L 68950-3) RDW-CV (test code = 14.9 % 12.1-15.4 788-0) PLT (test code = See_Comment H [Automated 777-3) message] The sy stem which generated this result transmitted reference range : 150 - 328 10*3/ ?L. The reference r carlota was not used to interpret this result as normal/abnormal . MPV (test code = 9.8 fL 9.8-13 92359-4) NRBC/100 WBC (test See_Comment [Automat ed code = 6863143324) message] The system which generated this result transmitted reference range : 0.0 - 10.0 /100 WBCs. The refer ence range was not u sed to interpret th is result as normal/abnormal . NRBC x10^3 (test code See_Comment [Auto mated = 8493111150) message] The s ystem which generated this result transmitted reference range : 10*3/?L. The reference range was not used to interpret this result as normal/abnormal . GRAN MAT (NEUT) % 51.8 % (test code = 770-8) IMM GRAN % (test code 0.40 % = 4605722491) LYMPH % (test code = 29.9 % 736-9) MONO % (test code = 10.2 % 5905-5) EOS % (test code = 5.8 % 713-8) BASO % (test code = 1.9 % 706-2) GRAN MAT x10^3(ANC) 4.17 10*3/uL 1.99-6.95 (test code = 1967790890) IMM GRAN x10^3 (test 0.03 10*3/uL 0-0.06 code = 7862035977) LYMPH x10^3 (test code 2.41 10*3/uL 1.09-3.23 = 731-0) MONO x10^3 (test code 0.82 10*3/uL 0.36-1.02 = 742-7) EOS x10^3 (test code = 0.47 10*3/uL 0.06-0.53 711-2) BASO x10^3 (test code 0.15 10*3/uL 0.01-0.09 H = 704-7) Lab Interpretation Abnormal (test code = 18456-3) [facility] [id number] 14:20:24 Test Item Value Reference Range Interpretation Comments CRP (test code = 1.3 mg/dL See_Comment H [Automated message] 1133987181) The system [employer] generated this result transmit eunice reference range : <=0.8. The refe rence range was not u sed to interpret th is result as normal/abnormal . Lab Interpretation (test Abnormal code = 22344-0) [facility] METABOLIC PANEL (NA, K, CL, CO2, GLUCOSE, BUN, CREATININE, CA)2022-04-28 11:21:59 Test Item Value Reference Range Interpretation Comments NA (test code = 134 mmol/L 135-145 L 8434047965) K (test code = 3.9 mmol/L 3.5-5 6780937267) CL (test code = 105 mmol/L 98-108 8170405796) CO2 TOTAL (test code = 26 mmol/L 23-31 1659001570) AGAP (test code = 2-16 8398187253) BUN (test code = 5 mg/dL 7-23 L 7017981876) GLUCOSE (test code = 76 mg/dL 70-110 6756485017) CREATININE (test code = 0.88 mg/dL 0.6-1.25 4966147469) CALCIUM (test code = 8.2 mg/dL 8.6-10.6 L 9170836305) eGFR (test code = mL/min/1.73m2 5206979593) ROBERTO (test code = ROBERTO) Association of [...] tests). Lab Interpretation Abnormal (test code = 10757-8) [facility] WITH [id number] 11:21:23 Test Item Value Reference Range Interpretation Comments WBC (test code = See_Comment [Automated 5490-2) message] The sy stem which generated this result transmitted reference range : 4.20 - 10.70 10*3/?L. The reference range was not used to interpret this result as normal/abnormal . RBC (test code = See_Comment L [Automated 489-8) message] The sy stem which generated this [...] RDW-SD (test code = 40.4 fL 38.5-51.6 97285-5) RDW-CV (test code = 15.3 % 12.1-15.4 788-0) PLT (test code = See_Comment H [Automated 777-3) message] The sy stem which generated this result transmitted reference range : 150 - 328 10*3/ ?L. The reference r carlota was not used to interpret this result as normal/abnormal . MPV (test code = 9.8 fL 9.8-13 37675-3) NRBC/100 WBC (test See_Comment [Automat ed code = 1533450108) message] The system which generated this result transmitted reference range : 0.0 - 10.0 /100 WBCs. The refer ence range was not u sed to interpret th is result as normal/abnormal . NRBC x10^3 (test code See_Comment [Auto mated = 6436972325) message] The s ystem which generated this result transmitted reference range : 10*3/?L. The reference range was not used to interpret this result as normal/abnormal . GRAN MAT (NEUT) % 51.9 % (test code = 770-8) IMM GRAN % (test code 0.50 % = 5888636935) LYMPH % (test code = 25.7 % 736-9) MONO % (test code = 17.4 % 5905-5) EOS % (test code = 3.2 % 713-8) BASO % (test code = 1.3 % 706-2) GRAN MAT x10^3(ANC) 3.09 10*3/uL 1.99-6.95 (test code = 8464918173) IMM GRAN x10^3 (test 0.03 10*3/uL 0-0.06 code = 4048213768) LYMPH x10^3 (test code 1.53 10*3/uL 1.09-3.23 = 731-0) MONO x10^3 (test code 1.04 10*3/uL 0.36-1.02 H = 742-7) EOS x10^3 (test code = 0.19 10*3/uL 0.06-0.53 711-2) BASO x10^3 (test code 0.08 10*3/uL 0.01-0.09 = 704-7) Lab Interpretation Abnormal (test code = 48273-0) [facility] 11:17:00 Test Item Value Reference Range Interpretation Comments MAGNESIUM (test code = 9046234022) 1.7 mg/dL 1.7-2.4 Lab Interpretation (test code = Normal 02597-3) [facility] (Lab Only)2022-04-27 17:22:22 Test Item Value Reference Range Interpretation Comments ABO & RH (test code O Positive Performe d at [facility] = 20) Laboratory Serv [facility] Blood Bank[address] [place] [address] Free: [phone] A No. [id number] [facility] and Screen - ONCE [id number] 16:14:13 Test Item Value Reference Range Interpretation Comments ABO & RH (test code O Positive Performe d at [facility] = 20) Laboratory [facility] Blood [address] [place], [place] [address]Toll Free: [phone] A No. [id number] IAT (test code = Negative Performed a t [facility] 1185) Laboratory [facility] Blood [address] [place], [place] [address]Toll Free: [phone] A No. [id number] [facility] THRMPLAS [id number] 16:10:24 Test Item Value Reference Range Interpretation Comments APTT Patient (test See_Comment [Automat ed code = 3173-2) message] The system which generated this result transmitted reference range : 23 - 38 Seconds . The reference range was not used to interpr et this result as normal/abnormal . ROBERTO (test code = ROBERTO) The [facility] patient population mean normal value for aPTT is 30 seconds. Lab Interpretation Normal (test code = 40990-2) [facility]th[facility] Time / [id number] 16:08:28 Test Item Value Reference Range Interpretation [...] tions. Lab Interpretation (test Normal code = 64405-2) [facility] [id number] 15:53:25 Test Item Value Reference Interpretation Comments Range TROPONIN I (test See_Comment [Automated code = 1464636020) message] The system which generated this result [...] biotin. Lab Interpretation Normal (test code = 91258-4) [facility]. METABOLIC PANEL (67188)2022-04-27 15:42:03 Test Item Value Reference Range Interpretation Comments NA (test code = 139 mmol/L 135-145 9033349058) K (test code = 4.1 mmol/L 3.5-5 7702211105) CL (test code = 105 mmol/L 98-108 6890370761) CO2 TOTAL (test code = 27 mmol/L 23-31 9426809519) AGAP (test code = 2-16 3970847400) BUN (test code = 6 mg/dL 7-23 L 4288685952) GLUCOSE (test code = 96 mg/dL 70-110 0728358322) CREATININE (test code = 0.87 mg/dL 0.6-1.25 6213484411) TOTAL BILI (test code = 0.3 mg/dL 0.1-1.7 8286922345) CALCIUM (test code = 9.1 mg/dL 8.6-10.6 2799095919) T PROTEIN (test code = 6.9 g/dL 6.3-8.2 0839238533) ALBUMIN (test code = 3.6 g/dL 3.5-5 0991578626) ALK PHOS (test code = 89 U/L 34-122 9016868272) ALTv (test code = 12 U/L 5-50 1742-6) AST(SGOT) (test code = 17 U/L 13-40 0087904980) eGFR (test code = mL/min/1.73m2 7349552614) ROBERTO (test code = ROBERTO) Association of [...] tests). Lab Interpretation Abnormal (test code = 62419-7) [facility]2022-09-21 15:42:03 Test Item Value Reference Range Interpretation Comments MAGNESIUM (test code = 1791857076) 1.9 mg/dL 1.7-2.4 Lab Interpretation (test code = Normal 87056-0) [facility]2022-[facility]-21 15:42:03 Test Item Value Reference Range Interpretation Comments LIPASE (test code = 9813892401) 115 U/L 0-220 Lab Interpretation (test code = Normal 99705-2) [facility] WITH [id number] 15:32:42 Test Item Value Reference Range Interpretation Comments WBC (test code = See_Comment [Automated 6690-2) message] The sy stem which generated this result transmitted reference range : 4.20 - 10.70 10*3/?L. The reference range was not used to interpret this result as normal/abnormal . RBC (test code = See_Comment [Automated 489-8) message] The sy stem which generated this [...] RDW-SD (test code = 39.8 fL 38.5-51.6 86560-2) RDW-CV (test code = 15.1 % 12.1-15.4 788-0) PLT (test code = See_Comment H [Automated 777-3) message] The sy stem which generated this result transmitted reference range : 150 - 328 10*3/ ?L. The reference r carlota was not used to interpret this result as normal/abnormal . MPV (test code = 9.5 fL 9.8-13 L 04810-7) NRBC/100 WBC (test See_Comment [Automat ed code = 6513079227) message] The system which generated this result transmitted reference range : 0.0 - 10.0 /100 WBCs. The refer ence range was not u sed to interpret th is result as normal/abnormal . NRBC x10^3 (test code See_Comment [Auto mated = 6753582839) message] The s ystem which generated this result transmitted reference range : 10*3/?L. The reference range was not used to interpret this result as normal/abnormal . GRAN MAT (NEUT) % 51.9 % (test code = 770-8) IMM GRAN % (test code 0.30 % = 7565869544) LYMPH % (test code = 31.1 % 736-9) MONO % (test code = 13.0 % 5905-5) EOS % (test code = 2.5 % 713-8) BASO % (test code = 1.2 % 706-2) GRAN MAT x10^3(ANC) 3.35 10*3/uL 1.99-6.95 (test code = 2938438290) IMM GRAN x10^3 (test 0-0.06 code = 5331684188) LYMPH x10^3 (test code 2.01 10*3/uL 1.09-3.23 = 731-0) MONO x10^3 (test code 0.84 10*3/uL 0.36-1.02 = 742-7) EOS x10^3 (test code = 0.16 10*3/uL 0.06-0.53 711-2) BASO x10^3 (test code 0.08 10*3/uL 0.01-0.09 = 704-7) Lab Interpretation Abnormal (test code = 13176-3) [facility]ST 1 [id number] 08:28:00Patient Name: ALEX BURROUGHS Unit No: [id number] EXAMS: CPT: [id number] XR CHEST 1 V 99449 History: Chest pain CHEST 1 VIEW FINDINGS: [...] (0831) BATCH NO: N/A Name: ALEX BURROUGHS [facility] Phys: Sky Starks MD [address] : 1975 Age: 44 Sex: [place] [address] Loc: N.ERS Exam Date: 05/23/2019 Status: REG ER P H: FAX: PAGE 1 Signed [id number] 07:18:00 Test Item Value Reference Range Interpretation Comments TROPONIN-I (test code = TROPI) <0.020 ng/mL 0.000-0.034 N BASIC METABOLIC [id number] 07:14:00 Test Item Value Reference Range Interpretation [...] mg/dL 8.5-10.5 N = CA) CBC W/AUTO [id number] 07:10:00 Test Item Value Reference Range Interpretation [...] = BA#) 0.1 x10 3/uL 0.0-0.1 N Notes Date/Time Note Provider Source 2023-01-02 11:33:00-00:00 [facility] ([facility]) EMERGENCY PROVIDER REPORT REPORT#:[id number] REPORT STATUS: Signed DATE:01/02/23 TIME: 1133 PATIENT: ALEX BURROUGHS UNIT #: [id number] ROOM: BED: AGE: 47 SEX: M PCP PHYS: No Primary or Family P hysician SERVICE AUTHOR: Donna Iraheta DO * ALL edits or amendments must be made on the [employer]/computer document * HPI-Headache Free Text HPI Notes Free Text HPI Notes 47-year-old male with a past medical history of ulcerative colitis presents with complaint of a frontal headache onset 1 week ago with no relief. Patient reports that he has used ove g-hwj-sspcvbf medications Advil and Tylenol without relief. Patient denies any trauma or injury. Pat ient denies any visual complaints dizziness or any recent fall. Patient also complains of periumbilical abdominal pain which reportedly be armando yesterday with reported rectal bleeding. General Confirmed Patient Yes Initial Greet Date/Time 01/02/23 0908 Provider in Triage HPI Chief Complaint GI BLEED Presentation Chief Complaint Headache Hx Obtained From Patient Sudden in Onset? No Onset Occurred One week ago Symptom Duration Constant Progression since Onset Gradually worsening Location Frontal R, Frontal L Quality Painful Radiation No: Does not radiate. Severity: Onset Moderate Severity: Current Moderate Exacerbated by Nothing Relieved by Nothing Risk-Headache Risk Stratification )( Subarachnoid Hemorrhage Risk factors reviewed , Risk factors N/A )( IC Mass Lesion Risk factors reviewed, Risk fa ctors N/A Review of Systems ROS Statements All systems rev neg except as marked. Focused Review of Systems GI Reports: Abdominal pain, Bloody/tarry stool. Neurologic Reports: Headache. Past Medical History - Adult Stated Complaint BLOOD IN STOOL,HEADACHE Allergies Coded Allergies: No Known Allergies (11/21/22) Home Medications Active Scripts Mesalamine Er (Delzicol) 800 MG PO TID Mesalamine Er (Delzicol) 800 MG PO TID #180 CAP Prov: 11/29/22 Prednisone 10 MG PO ASDIR Prednisone 10 MG PO ASDIR #30 TAB Prov: 11/29/22 Additional Medical History Ulcerative Colitis Additional Surgical History Neg Additional Family History Reviewed and noncontributory Alcohol Use Denies EtOH use Drug Use Denies recreational drugs Smoking status for patients 13 years old or olde r: Never Smoker Other Social History Local resident, Good social support Free Text PMH Notes Past Medical History Ulcerative colitis Past Surgical History Multiple rectal surgeries for abscesses Family History Noncontributory Social History [pt denies tobacco use, alcohol use and illicit drug use] Physical Exam Vital Signs Vital Signs First Documented: Result Date Time Pulse Ox 97 01/02 0908 B/P 135/74 01/02 0908 B/P Mean 94 01/03 908 Temp 98.1 01/03 908 Pulse 81 01/02 09 Resp 18 01/03 908 Last Documented: Result Date Time Pulse Ox 98 01/02 1306 B/P 132/72 01/02 1306 B/P Mean 92 01/02 1306 Pulse 78 01/02 1306 Resp 18 01/02 130 Temp 98.1 01/03 908 Review of Vital Signs Reviewed, Vital signs norm al Focused PE General/Const General/Const Awake, Alert Distress/Hydration Distress moderate. MS Head Head Normocephalic Eyes Eyes PERRL, EOMI, No photophobia, Conjunctiva N L, Temporal arteries NL Ears/Nose/Throat Ears/Nose/Throat Airway patent, Mucous membrane s moist, Pharynx NL, No sinus tenderness MS Neck Neck Supple, No meningismus, Full range of alen on, No swelling, Non-tender, No masses Resp/Chest Respiratory/Chest Breath sounds NL, Breath soun ds = bilat, No respiratory distress, No rales, No rhonchi, No wheezing Cardiovascular Cardiovascular Heart rate NL, Regular rhythm, H eart sounds NL, Peripheral circulation NL Abdomen/GI Abdomen/GI Soft, No guarding, No rebound Tenderness/Guarding/Rebound Tender periumbilical, Tender suprapubic. Skin Skin Color NL, No rash, Warm, Dry, Turgor NL Neurologic Neurologic Oriented X3, Speech NL, No m otor deficits, No sensory deficits, CN II - XII intact, Cerebellar NL Psychiatric Psychiatric Affect NL, Mood NL, Cognitive funct ion NL, Thought content NL Interpretation Diagnostics Lab Results Interpretation Results Laboratory Tests 01/02/23936: [Embedded Image Not Available] Laboratory Tests: 01/02 0946 Chemistry Sodium (135 - 145 mmol/L) 138 Potassium (3.6 - 5.0 mmol/L) 5.0 Chloride (101 - 111 mmol/L) 110 Carbon Dioxide (21 - 31 mmol/L) 22 BUN (6 - 20 mg/dl) 17 Creatinine (0.64 - 1.27 mg/dL) 0.97 Glomerular Filtr Rate (>60) >=60 max estimate Glucose (70 - 100 mg/dl) 123 H Calcium (8.5 - 10.5 mg/dL) 8.8 Total Bilirubin (0.2 - 1.3 mg/dL) 1.10 Direct Bilirubin (0.00 - 0.20 mg/dL) 0.3 H AST (10 - 42 U/L) 30 ALT (10 - 60 U/L) 19 Total Alk Phosphatase (42 - 121 U/L) 54 Total Protein (6.7 - 8.2 g/dL) 6.5 L Albumin (3.2 - 5.5 g/dL) 3.5 Lipase (22 - 51 IU/L) 37 Specimen Appearance (1 NORMAL Index/DL) 1 Specimen Hemolysis (1 NORMAL Index/DL) 2 Hematology WBC (3.2 - 11.5 x10 3/uL) 9.5 RBC (4.20 - 5.70 x10(6)/m) 4.81 Hgb (12.9 - 17.3 g/dL) 12.4 L Hct (38.7 - 51.0 %) 38.8 MCV (80 - 100 fL) 81 MCH (26.7 - 33.3 pg) 25.8 L MCHC (30.0 - 34.0 g/dL) 32.0 RDW (11.3 - 14.5 %) 15.9 H Plt Count (130 - 408 x10 3/uL) 309 MPV (8.6 - 12.6 fL) 10.5 Neut % (Auto) (40.0 - 70.0 %) 68.6 Lymph % (Auto) (20 - 40 %) 16.2 L [place] % (Auto) (1 - 10 %) 12.7 H Eos % (Auto) (0.0 - 5.0 %) 1.2 Baso % (Auto) (0.0 - 1.0 %) 1.1 H Neut # (Auto) (1.6 - 7.2 x10 3/uL) 6.5 Lymph # (Auto) (1.1 - 2.7 x10 3/uL) 1.53 [place] # (Auto) (0.3 - 0.8 x10 3/uL) 1.2 H Eos # (Auto) (0.0 - 0.5 x10 3/uL) 0.1 Baso # (Auto) (0.0 - 0.1 x10 3/uL) 0.1 Immature Gran % (0.0 - 2.0 %) 0.2 Nucleated RBC % (0.0 - 0.9 %) 0.0 Urines Urine Color (YELLOW) YELLOW Urine Appearance (CLEAR) Clear Urine pH (5.0 - 9.0) 5.0 Ur Specific Lynx (1.001 - 1.030) 1.032 Urine Protein (NEGATIVE) NEGATIVE Urine Glucose (UA) (NEGATIVE) NEGATIVE Urine Ketones (NEGATIVE) NEGATIVE Urine Blood (NEGATIVE) 1+ Urine Nitrite (NEGATIVE) NEGATIVE Urine Bilirubin (NEGATIVE) NEGATIVE Urine Urobilinogen (<=1.0) NEGATIVE Ur Leukocyte Esterase (NEGATIVE) NEGATIVE Urine RBC (0 - 5 /HPF) 0-5 Urine WBC (0 - 5 /HPF) 0-5 Ur Epithelial Cells (NONE - FEW /LPF) OCC Uric Acid Crystals (NONE SEEN /HPF) MANY Urine Bacteria (NONE SEEN /HPF) NONE SEEN Urine Ascorbic Acid NEGATIVE Recent Impressions: CAT SCAN - CT ABD PELVIS W/CONT 01/02 1056 Report Impression - Status: SIGNED Entered: 01/02/2023 1200 IMPRESSION: 1. There is thickening of the wall of the ascend ing colon and transverse colon. Findings may represent colitis . There is questionable thickening of the wall of the sigmo id colon. Impression By: Shwetha Jha MD CAT SCAN - CT HEAD/BRAIN W/O CONT 01/02 1224 Report Impression - Status: SIGNED Entered: 01/02/2023 1237 IMPRESSION: 1. No acute intracranial abnormality identified. Impression By: Shwetha Jha MD Lab Imaging Statement Laboratory radiographic studies reviewed and con sidered in the medical decision-making. Re-Evaluation MDM )( Re-Evaluation/Progress #1 Time of Re-Eval 1230 )( Re-Eval Status Improved Plan Post Re-Eval Plan discharge ED Course Medication(s) Ordered Medication(s) Ordered: Central Nervous System Agents Sig/Dorcas Start time Last Medication Dose Route Stop Time Status Admin Droperidol 5 MG X1ED STA 01/02 1047 DC 01/02 IV 01/02 1048 1117 Diagnostic Agents Sig/Dorcas Start time Last Medication Dose Route Stop Time Status Admin Iopamidol 0 .STK-MED ONE 01/02 1031 DC 01/02 IV 1057 Differential Diagnosis Differential Diagnosis DYNAMITE RECLAIMER tumor, Headache, clus ter, Headache, migraine, Headache, tension, Intracranial abscess, Sinusit is Ruled Out Stroke This is not a stroke. MDM-Complexity Ruled Out Diagnoses Bowel obstruction, appendicitis, pancreatitis, s ymptomatic anemia. Severity/Chronicity Evaluation ... Acuity: Chronic ... Severity: Moderate ... Impacting comorbidities: Ulcerative colitis ... Systemic symptoms: Patient complains of a fr ontal headache for 1 week and also complains of periumbilical abdominal pain a nd blood in his stool. MDM-Independent Interpretation My Other Test Interpretation Electrolytes revealed mild elevation in glucose of 123. CBC reveals a stable hemoglobin and hematocrit white count is normal at 9.5. Urinalysis reveals no evidence of infection. Imaging/Trac Compared to Prev CT scan of the abdomen and pelvis reveals thicke myranda of the wall of the ascending colon and transverse colon. Findings m ay represent colitis. CT scan of the brain reveals no evidence of acute intrac ranial abnormalities or injuries. MDM-Treatment/Evaluation ED Course 47-year-old male with a past medical history of ulcerative colitis presents with complaint of a frontal headache onset 1 week ago with no relief. Patient reports that he has used ove l-wqx-xalffvk medications Advil and Tylenol without relief. Patient denies any trauma or injury. Pat ient denies any visual complaints dizziness or any recent fall. Patient also complains of periumbilical abdominal pain which reportedly be armando yesterday with reported rectal bleeding. CT scan of the abdomen revealed evidence of colitis. Patient' s hemoglobin and hematocrit are noted to be stab le. All lab work and imaging studies reviewed by me. No indication for admiss ion. Patient will be referred to GI for outpatient follow-up care. Patient CT of the brain revealed no evidence of acute abnormalities. Patient improved after droperidol was given 5 mg IV push. Patient was given instructions to re turn back to the emergency department immediately if symptoms worsen or any further complaints. Shared Decision-Making Patient agrees with plans for discharge at this time and follow-up with battery hand for recheck in 2 to 3 days. As discussed today, please make a follow-up appointment with your PCP and or referral doctor given here, within 24 to 48 hours for reevaluation and further outp atient work-up and treatment that may be needed, depending on progression of your symptoms. Return to the emergency department right away for new or worse myranda symptoms. Social Determinants of Health Economic stability/social determinants of health No income or employment issues, housing issues/h ousing concerns, food issues, transportation issues, community issues Yes patient has full access to healthcare No literacy or language issues Medications Recommendations Current Visit Scripts Prednisone 20 MG PO TID Prednisone 20 MG PO TID #14 TABS Eletriptan (Relpax) 40 MG PO ONCE Eletriptan (Relpax) 40 MG PO ONCE #14 TABS 40 MG PO AT ONSET OF SYMPTOMS, REPEAT DOSE AFTE R 2 HRS IF NECESSARY. Patient Discharge Departure Vital Signs/Condition Vital Signs First Documented: Result Date Time Pulse Ox 97 01/02 0908 B/P 135/74 01/02 0908 B/P Mean 94 01/02 0908 Temp 98.1 01/02 0908 Pulse 81 01/02 0908 Resp 18 01/02 0908 Last Documented: Result Date Time Pulse Ox 98 01/02 1306 B/P 132/72 01/02 1306 B/P Mean 92 01/02 1306 Pulse 78 / 1306 Resp 18 01/02 1306 Temp 98.1 01/02 0908 All vital signs available at the time of this en try have been reviewed. Condition Stable, Improved Clinical Impression Clinical Impression Primary Impression: Colitis Secondary Impressions: Headache, Hyperglycemia, Rectal bleeding Disposition Decision Discharge )( Discharged to Home Yes )( Time 1248 )( Date 01/02/23 Discharge/Care Plan Counseled Regarding Diagnosi s, Lab results, Imaging studies, Prescriptions, Need for follow-up, When to return to ED (Auto) Prescriptions Current Visit Scripts Prednisone 20 MG PO TID Prednisone 20 MG PO TID #14 TABS Eletriptan (Relpax) 40 MG PO ONCE Eletriptan (Relpax) 40 MG PO ONCE #14 TABS 40 MG PO AT ONSET OF SYMPTOMS, REPEAT DOSE AFTE R 2 HRS IF NECESSARY. Patient Instructions ED Headache Unspecified, ED Ulcerative Colitis, Understanding Colitis Referrals Provider Referral: Obey Fernandez MD Follow-Up: 2-3 Days Address: [facility] [place] [address] Departure Forms [facility] PCP LIST WORK/SCHOOL EXCUSE VARIABLE Discharge Note I have spoken with the patie nt and/or caregivers. I have explained the patient's condition, diagnoses and julián atment plan based on the information available to me at this time. I have answered the patient's and/ or caregiver's questions and addressed any concerns. The patient and/or careg kar have as good an understanding of the patient 's diagnosis, condition and treatment plan as can be expected at this point. The vital signs have bee n stable. The patient's condition is stable and appr opriate for discharge from the emergency department. The patient will pursue further outpatient evalu ation with the primary care physician or other designated or consulting phys ician as outlined in the discharge instructions. The patient and/or caregivers are agreeable to this plan of care and follow-up instructions have been exp lained in detail. The patient and/or caregivers have received these instructio ns in written format and have expressed an understanding of the discharge inst ructions. The patient and/or caregivers are aware that any significant change in condition or worsening of symptoms should prompt an immediate return to [facility] or the closest emergency department or a call to 911. Electronically Signed by Donna Iraheta DO on at 1925 RPT #:[id number] END OF REPORT 2023-01-02 09:44:00-00:00 [id number] [address] PATIENT NAME: ALEX BURROUGHS ADMIT DATE: 01/02/23 ACCOUNT NO: [id number] ROOM NO: AGE: 47 REPORT TYPE: ELECTROCARDIOGRAM SEX: M ADMITTING PHYSICIAN: ATTENDING PHYSICIAN: Order: [id number] Test Reason : Resting 12-lead ECG Test Date/Time Stamp: MonJan 02 2023 09:44:59 Blood Pressure : / mmHG Vent. Rate : 080 BPM Atrial Rate : 000 BPM P-R Int : 144 ms QRS Dur : 088 ms QT Int : 356 ms P-R-T Axes : 020 -28 015 degree s QTc Int : 412 ms SINUS RHYTHM BORDERLINE LEFT AXIS DEVIATION BORDERLINE ECG Reviewed by Confirmed by VIKKI FRANK MD ([id number]) on 023 5:43:41 PM Referred By: Self Referred Confirmed by:VIKKI FRANK MD Electronically Signed by Vikki Frank MD o n 01/09/23 at 1743 PATIENT NAME ALEX BURROUGHS 42 2023-01-02 09:08:00-00:00 [facility]) EMERGENCY PROVIDER REPORT REPORT#:[id number] REPORT STATUS: Signed DATE:01/02/23 TIME: 907 PATIENT: ALEX BURROUGHS UNIT #: [id number] ROOM: BED: AGE: 47 SEX: M PCP PHYS: No Primary or Family P hysician SERVICE AUTHOR: Bmabi De La Cruz * ALL edits or amendments must be made on the [employer]Know[employer] document * Provider in Triage - Adult Provider in Triage Initial Greet Date/Time 01/02/23 0908 HPI Chief Complaint GI BLEED Free Text PIT Notes Free Text PIT Notes 47-year-old male complaining of diffuse abdomina l pain that started yesterday and rectal bleeding that sta rted this morning. Patient is also complaining of a severe headache that is not going away. Patient's been taking 800 mg ibuprofen. Patient has medical history of colitis and has had this happen before. PMH-Provider in Triage Stated Complaint BLOOD IN STOOL,HEADACHE Allergies Coded Allergies: No Known Allergies (11/21/22) Home Medications Active Scripts Mesalamine Er (Delzicol) 800 MG PO TID Mesalamine Er (Delzicol) 800 MG PO TID #180 CAP Prov: 11/29/22 Prednisone 10 MG PO ASDIR Prednisone 10 MG PO ASDIR #30 TAB Prov: 11/29/22 Electronically Signed by Bambi De La Cruz on at 0911 Electronically Signed by John Erickson MD on at 1611 RPT #:[id number] END OF REPORT 2022-12-25 00:50:00-00:00 [id number] [address] PATIENT NAME: ALEX BURROUGHS ADMIT DATE: 11/26/22 ACCOUNT NO: [id number] ROOM NO: N.[facility] AGE: 47 REPORT TYPE: 360 - QUERY RESPONSE DOCUMENT SEX: M ADMITTING PHYSICIAN:Laureano Webster MD ATTENDING PHYSICIAN:Laureano Webster MD Provider Query QUERY TEXT: Clarification Diagnostic Test 360MD Query related questions should be directed to: Kayden kang [facility] [place] Coding Query Helpline Based on your medical judgment kindly further sp ecify the clinical significance of the indicators mention ed below (Hyponatremia, abnormal sodium level, unable to determine or other more appropriate diagnosis) The patient's Clinical Indicators include: SODIUM (mmol/L) 133L 133L 133L - Laboratory Resu lts, SODIUM CHLORIDE 0.9% 1000 ML IV -Hospitalist Pro mimi Note 11/26/2022. Options provided: -- Respond - Create new note now -- Dismiss - Not applicable / Not valid -- Dismiss - Clinically unable to determine / Un known -- Assign to another provider QUERY RESPONSE: hyponatremia/insignificant Query created by: David Pettit on 12/01/2022 10 :03 PM at 0050 PATIENT NAME ALEX BURROUGHS 2022-11-29 11:48:00-00:00 [facility] ([facility]) Hospitalist D/C Summary REPORT #: [id number] REPORT STATUS: Signed DATE: 11/29/22 TIME: 1148 PATIENT: ALEX BURROUGHS UNIT #: [id number] ROOM #: N.0656 BED: 1 : 77 AGE: 47 SEX: M ATTEND: Faye Webster MD ADM AUTHOR: Ratna Logan ATTENTION *EDITS and/or ADDENDA must be made in Patient Ke eper for this note. * * Edits and ammendments created in [employer] are not visible * * in Patient Keeper or the legal medical record (HPF). * -- CO-SIGNATURE -- COMMENTS: Case discussed with CHRISTIAN MINISTRIES PROFESSOR. Agree with the findings and plan as documented. Moderate complexity Signed in PatientKeeper by SHANICE THOMAS MD on 11/29/22 at 12:28 -- PROBLEMS/PROCEDURES -- PROCEDURES PERFORMED: Admitting diagnoses Ulcerative Coliits Flare Rectal bleeding-- > now resolved. Hypokalemia Hyperglycemia Discharge diagnoses Ulcerative Coliits Flare Rectal bleeding-- > now resolved. Hypokalemia Hyperglycemia -- HOSPITAL COURSE -- HOSPITAL COURSE: H P This is a pleasant 47-year-o ld male with history of ulcerative colitis presents to the ER complaining of rectal bleed. Per patie nt this is going on for past couple of days describes the intensity as moderate no fever no chills. No other associated symptoms no other exacerbating reliev ing factor. Patient was recently diagnosed last year with ulcerative col itis. CT, abdominal pelvis with subtle wall thickening/enhancement of the colonic wall, which may reflect sequelae of colitis. No sign ificant pericolonic inflammation. GI was consulted, she was started on IV steroids, and mesalamine. IVF steroids were weaned to off, hematochezia improved. Patient will need to see GI for Humira as OP, his hemoglobin remained stable. Patient also had a b uttocks wound he is following with his PCP , he will continue wound care as re commended. Other chronic conditions were monitored and treated, electroly domo replaced. Patient was standpoint for discharge home from the G I standpoint. He will follow-up at the office in 1 to 2 weeks and PCP as well. Patient was seen and examined at the time of discharge, afebrile, VSS. All questions and concerns discussed with the patient at the time of discharge. PLAN Ulcerative Coliits Flare Rectal bleeding-- > now resolved. Diagnosed 1 year ago with colonoscopy in [facility]. CT scan - Subtle wall thickening/enhancement of the colonic wall, which may reflect sequelae of colitis. No significant chaz colonic inflammation. - Monitor CBC - ESR is 10 - IV steroids completed - Restart mesalamine, home med. - Inflammatory markers - ESR is 10. - Still having intermittent hematochezia, but im proving. - GI patient needs Humira, he will need an outpa tient follow-up -Transfuse to keep hemoglobin greater than 7.0 , hemoglobin so far stable - patient was transferred to p.o. steroids Hypokalemia - Replace - Monitor Hyperglycemia - hgb A1c pending - SSI + POCT -We will avoid hypoglycemic events -Patient will follow-up with PCP Mild leukocytosis -Patient on steroids -Patient denies fever/chills. FULL CODE DVT PPx: SCDs. Position: Home today Disposition: Home today -- DISCHARGE MEDICATIONS -- ALLERGIES: No Known Allergies (UNKNOWN - Allergy) DISCHARGE MEDICATIONS: Mesalamine DR Cap (Delzicol Cap) 800 MG PO TID, Disp: 180 capsule, Refills: 0 predniSONE Tab (Deltasone Tab) 10 MG PO ASDIR (T aper as directed: 4 tabs PO daily x3 days, then 3 tabs P...), Disp: 30 tablet, Refills: 0 -- DISCHARGE INSTRUCTIONS -- ADMISSION ORDERS: Discharge Follow Up:ADT - Admission Orders Details: Order number: [id number] Category: ADT - Admission Orders Order status: Transmitted Details: Consulting provider 1: STEVIEBST:Obey Fernandez MD Consulting provider 1: . Consult follow up timeframe: In 2-3 weeks Ordered by: Ratna Logan Nov 29, 2022 11:15am Entered by: Ratna Logan Service date: Nov 29, 2022 11:13am PK DISCHARGE ORDERS: Discharge w/Instructions:PKDC - PK DISCHARGE ORD ERS Details: Order number: [id number] Category: PKDC - PK DISCHARGE ORDERS Order status: Transmitted Details: Discharge order: Yes Discharge to: Home/Self Care Diet: Regular Activity: As Tolerated Appropriate for Age Notify PCP of Signs/Symptoms: Moderate/large bleeding Shortness of breath Temp. 101 or greater Additional Discharge Routines: PCP Follow-Up Interrelated Special Education Teacher Follow-Up Ordered by: Ratna Logan Nov 29, 2022 11:15am Entered by: Ratna Logan Service date: Nov 29, 2022 11:13am ADDTIONAL DISCHARGE INSTRUCTIONS: Emergency Instructions: The patient was instruct ed to present to the nearest Emergency Department or call 911 should their sy mptoms return or worsen.; -- OBJECTIVE -- VITALS (11/28 11:48 - 11/29 11:48): Temperature C: 36.5 (36.5 - 36.8) Temperature source: Oral Pulse Rate 68 (53 - 69) Respiratory rate: 18 (16 - 18) BP: 143/86 (143/62 - 167/87) -EXAM- GENERAL: Well developed, well nourished, in no a pparent distress. HEAD: Normocephalic, atraumatic. EYES: PERRL, EOM intact, conjunctiva and sclera clear, without nystagmus, lids normal. EARS: grossly normal hearing. MOUTH: Oropharynx without deformities or lesions , normal mucosa.. LUNGS: Clear bilaterally with normal respiratory effort. HEART: Regular rate and rhythm, normal S1, S2, ABDOMEN: Soft, non-tender, no organomegaly, no m asses noted, obese MUSCULOSKELETAL: No deformity, joint ROM grossly normal, normal gait and station. EXTREMITIES: No clubbing, no cyanosis, no edema. NEUROLOGICAL: No focal deficits, normal sensatio n, normal reflexes, normal coordination, normal muscle strength, n ormal tone. PULSES: Pulses normal in all extremities. SKIN: Intact without significant lesions, or anton hes. PSYCHIATRIC: Alert and oriented to time, person, place. Normal mood and affect, intact judgment and insight. -- DATA -- TEST RESULTS FECAL OCCULT BLOOD (11/25/22 22:07) -- ATTESTATION -- CARE ACTIVITIES / CARE COORDINATION: - I have reviewed the history and repeated the schulte elements - I have seen and examined this patient - I have reviewed the progress in the clinical course since the last examination - I have discussed the leanne ent's condition with other members of the care team Signed in PatientKeeper by Ratna Logan APRN, NP on 11/29/22 at 12:09 Cosigned by SHANICE THOMAS MD on 11/29/22 at 12:28 at 1228 at 1228 ATTENTION *EDITS and/or ADDENDA must be made in Patient Ke eper for this note. * * Edits and ammendments created in [employer] are not visible * * in Patient Keeper or the legal medical record (HPF). * [facility] #: [id number] END OF REPORT 2022-11-29 11:32:00-00:00 [facility] ([facility]) Med Order Sheet REPORT #: [id number] REPORT STATUS: Signed DATE: 11/29/22 TIME: 1132 PATIENT: ALEX BURROUGHS UNIT #: [id number] ROOM #: N.0656 BED: 1 : 77 AGE: 47 SEX: M ATTEND: Lopez Webster MD ADM AUTHOR: Ratna Logan ATTENTION *EDITS and/or ADDENDA must be made in Patient [facility] for this note. * * Edits and ammendments created in [employer] are not visible * * in Patient Keeper or the legal medical record ([facility]). * Discharge Medication Reconciliation Hosp: predniSONE Tab (Deltasone Tab) Dose: 10 MG PO ASDIR, Disp: 30 tablet, Refills: 0 - Taper as directed: 4 tabs PO daily x3 days, then 3 tabs PO daily x3 days, then 2 tabs PO daily x3 days, then 1 tab PO daily x3 days at 1132 ATTENTION *EDITS and/or ADDENDA must be made in Patient [facility] for this note. * * Edits and ammendments created in [employer] are not visible * * in Patient Keeper or the legal medical record ([facility]). * RPT #: [id number] END OF REPORT 2022-11-29 11:27:00-00:00 [facility] ([facility]) Med Order Sheet REPORT #: [id number] REPORT STATUS: Signed DATE: 11/29/22 TIME: 1127 PATIENT: ALEX BURROUGHS UNIT #: [id number] ROOM #: N.0656 BED: 1 : 77 AGE: 47 SEX: M ATTEND: Faye Webster MD ADM AUTHOR: Ratna Logan ATTENTION *EDITS and/or ADDENDA must be made in Patient Ke ep for this note. * * Edits and ammendments created in [facility] are not visible * * in Patient Keeper or the legal medical record (HPF). * Discharge Medication Reconciliation Hosp: Discontinue: Medrol Dosepak DsPk (methylpr ednisolone) Dose: 4 MG PO ASDIR, Disp: 1 x 21 tablet dispen sing pack, Refills: 0 STOPPED HOME MEDICATIONS Dc'd: Medrol Dosepak DsPk (methylprednis olone) 4 MG PO ASDIR (Take as directed on package.) STOPPED HOSPITAL MEDICATIONS Dc'd: methylPREDNISolone Inj (Solu-MEDROL Inj) 6 0MG IV [id number] Signed in PatientKeeper by Ratna kovacs on 11/29/22 11:25 at 1127 ATTENTION *EDITS and/or ADDENDA must be made in Patient [facility] for this note. * * Edits and ammendments created in [employer] are not visible * * in Patient Keeper or the legal medical record ([facility]). * RPT #: [id number] END OF REPORT 2022-11-29 11:15:00-00:00 [facility] ([facility]) Med Order Sheet REPORT #: [id number] REPORT STATUS: Signed DATE: 11/29/22 TIME: 1115 PATIENT: ALEX BURROUGHS UNIT #: [id number] ROOM #: N.0656 BED: 1 : 77 AGE: 47 SEX: M ATTEND: Faye Webster MD ADM AUTHOR: Ratna Logan ATTENTION *EDITS and/or ADDENDA must be made in Patient Ke eper for this note. * * Edits and ammendments created in [employer] are not visible * * in Patient Keeper or the legal medical record ([facility]). * Discharge Medication Reconciliation DISCHARGE MEDICATION LIST Medrol Dosepak DsPk (methylprednisolone) Dose: 4 MG PO ASDIR, Disp: 1 x 21 tablet dispen sing pack, Refills: 0 - Take as directed on package. Mesalamine DR Cap (Delzicol Cap) Dose: 800 MG PO TID, Disp: 180 capsule, Refills : 0 STOPPED HOSPITAL MEDICATIONS Dc'd: Acetaminophen Tab (Tylenol Tab) 650MG PO Q 4H PRN pain score 1-3/fever>100.4Dc'd: Albuterol/Ipratrop Neb Soln (Duoneb Neb Soln) 3ML Neb RTQ6H PRN sob/wheezingDc'd: cloNIDine Tab (Catap res Tab) 0.1MG PO Q6H PRN sbp>165Dc'd: D5W-NS (D5W-NS) 1000ML 75 MLS/HR IV Dc'd: D5W-NS (D5W-NS) 1000ML 75 MLS/HR IV Dc'd: diphenhydrAMINE Inj (Benadryl Inj) 25MG IV Q6H PRN itching/rashDc'd: guaiFENesin ER Tab (Mucinex Ta b) 600MG PO BID PRN coughDc'd: hydrALAZINE Inj (Apresoline Inj) 10MG IV Q6H PRN sbp>180Dc'd: HYDROcod/APAP 5/325 Tab ([place] 5/325 Tab) 1TAB P O Q4H PRN moderate pain (score 4-6)Dc'd: HYDROmorphone Inj (Dilaudid Inj ) 0.5MG IV Q6H PRN pain scale 4-6Dc'd: Insulin (Lispro) Inj (HumaLog Inj ) 0 U NITS SubQ ASDIRDc'd: LORazepam Inj (Ativan Inj) 0.5MG IV Q12H PRN anx iety/agitation/violent beh.Dc'd: Nitroglycerin SL Tab (Nitrostat SL Tab ) 0.4MG SL Q5M PRN chest painDc'd: Ondansetron Inj (Zofran Inj) 4MG IV Q4 H PRN nausea and vomitingDc'd: Polyethylene Glycol Powder (Mirala x Powder) 1PKT PO DAILY PRN constipationDc'd: Sodium Chloride 0.9% ( NS) 1000ML 75 MLS/HR IV Dc'd: Zolpidem Tab (Ambien Tab) 10MG PO BEDTIME PRN insomniaEl ectronically Signed in PatientKeeper by Ratna Logan on 11/29 11:13 at 1115 ATTENTION *EDITS and/or ADDENDA must be made in Patient [facility] for this note. * * Edits and ammendments created in [facility] are not visible * * in Patient Keeper or the legal medical record ([facility]). * RPT #: [id number] END OF REPORT 2022-11-28 15:28:00-00:00 [facility] ([facility]) Gastroenterology Prog. Note REPORT #: [id number] REPORT STATUS: Signed DATE: 11/28/22 TIME: 1528 PATIENT: ALEX BURROUGHS UNIT #: [id number] ROOM #: N.0656 BED: 1 : 77 AGE: 47 SEX: M ATTEND: Faye Webster MD ADM AUTHOR: Obey Fernandez MD ATTENTION *EDITS and/or ADDENDA must be made in Patient [facility] for this note. * * Edits and ammendments created in [facility] are not visible * * in Patient Keeper or the legal medical record ([facility]). * -- SUBJECTIVE -- CHIEF COMPLAINT: Interval hx: No new complaints Bleeding has improved and stools are getting mor e formed though still bloody Abdominal pain has improved REASON FOR CONSULTATION: Rectal bleeding. HISTORY OF PRESENT ILLNESS: A 47-year-old with h istory of ulcerative colitis diagnosed last year, who has been medically noncompliant. He has been attending the hospital in [place] and has not established care in our clinic. He has been taking off and on some prednisone, which he gets from the emergency room and he had some improvement, but there has been some waxing and waning. Hemoglobin has remained stab le at 12.6 and 12.3. He is still having intermittent bleeding. He therefore came into the hospital. C AT scan shows septal wall enhancement of the colonic wall. PAST MEDICAL HISTORY: Ulcerative colitis diagnos ed last year. ALLERGIES: NO KNOWN DRUG ALLERGY. FAMILY HISTORY: Noncontributory. SOCIAL HISTORY: No history of smoking, alcohol a buse. REVIEW OF SYSTEMS: A 14-point review of systems was normal, except as documented above. PHYSICAL EXAMINATION: VITAL SIGNS: The patient was afebrile. HEENT: Anicteric. NECK: No jugular venous distention. Oropharynx, his neck was supple. CHEST: Clear. ABDOMEN: Soft, was nondistended. No organomegaly . CENTRAL NERVOUS SYSTEM: Alert. LABORATORY DATA: Hemoglobin is 12.0, hematocrit of 10.5. Sodium 135, 3.9 potassium, 19 BUN, 1.21 creatinine. LFTs were no rmal. ASSESSMENT AND PLAN: A 47-year-old with history of ulcerative colitis, who has exacerbation, uncontrolled by oral steroids. Continue IV steroids. -- OBJECTIVE -- VITALS (11/27 15:28 - 11/28 15:28): Temperature C: 36.4 (36.4 - 37.1) Pulse Rate 98 (52 - 98) Respiratory rate: 18 (18 - 19) BP: 122/76 (122/76 - 161/96) -- DATA -- MEDICATIONS DEXTROSE 5%-NS 1000 ML IV .[id number] MESALAMINE 800 MG PO TID IPRATROPIUM/ALBUTEROL SULFATE 3 ML NEB RTQ6H PRN HYDROcodone BITARTRATE/APAP 1 TAB PO Q4H PRN methylPREDNISolone SOD SUCC 60 MG IV Q8HR polyethylene glycoL 3350 1 PKT PO DAILY PRN LORazepam 0.5 MG IV Q12H PRN ONDANSETRON HCL/PF 4 MG IV Q4H PRN DEXTROSE 5%-NS 1000 ML IV .[id number] NITROGLYCERIN 0.4 MG SL Q5M PRN guaiFENesin 600 MG PO BID PRN cloNIDine HCL 0.1 MG PO Q6H PRN ZOLPIDEM TARTRATE 10 MG PO BEDTIME PRN SODIUM CHLORIDE 0.9% 1000 ML IV .[id number] ACETAMINOPHEN 650 MG PO Q4H PRN HYDROmorphone HCL 0.5 MG IV Q6H PRN hydrALAZINE HCL 10 MG IV Q6H PRN INSULIN LISPRO 0 UNITS SUBQ ASDIR LABS GLU BED (11/28/22 05:51) GLUBED 161 H CBC W/AUTO DIFF (11/28/22 03:52) WHITE BLOOD CELL 12.6H H RED BLOOD CELL 4.83 HEMOGLOBIN 12.3D L D L HEMATOCRIT 38.7 MEAN CELL VOLUME 80 MEAN CELL HGB 25.5 L MEAN CELL HGB CONCENTRATION 31.8 RED CELL DISTRIBUTION WIDTH 15.8 H PLATELET COUNT 393 MEAN PLATELET VOLUME 10.9 NEUTROPHIL % 83.2 H IMMATURE GRANULOCYTE % 0.9 LYMPHOCYTE % 8.6 L MONOCYTE % 7.1 EOSINOPHIL % 0.0 BASOPHIL % 0.2 NUCLEATED RBC % 0.0 NEUTROPHIL # 10.5 H LYMPHOCYTE # 1.09 L MONOCYTE # 0.9 H EOSINOPHIL # 0.0 BASOPHIL # 0.0 MAG (11/28/22 03:52) MAGNESIUM 2.1 BASIC METABOLIC PANEL (11/28/22 03:52) SODIUM 133L L POTASSIUM 4.3 CHLORIDE 102 CARBON DIOXIDE 22 GLUCOSE 189H H BLOOD UREA NITROGEN 17 GLOMERULAR FILTRATION RATE >=60 max estimate CREATININE 0.87 CALCIUM 9.0 INDEX HEMOLYSIS 1 INDEX ICTERIC 1 INDEX LIPEMIA 0 PHOS (11/28/22 03:52) PHOSPHOROUS 3.2 GLU BED (11/27/22 17:39) GLUBED 122 H Signed in PatientKeeper by Obey Fernandez on 11/28/22 at 15:30 at 1530 ATTENTION *EDITS and/or ADDENDA must be made in Patient [facility] for this note. * * Edits and ammendments created in [employer] are not visible * * in Patient Keeper or the legal medical record ([facility]). * RPT #: [id number] END OF REPORT 2022-11-28 11:09:00-00:00 [facility] Hospitalist Progress Note REPORT #: [id number] REPORT STATUS: Signed DATE: 11/28/22 TIME: 1109 PATIENT: ALEX BURROUGHS UNIT #: [id number] ROOM #: N.0656 BED: 1 : 77 AGE: 47 SEX: M ATTEND: Faye Webster MD ADM AUTHOR: Ratna Logan APRNNP ATTENTION *EDITS and/or ADDENDA must be made in Patient [facility] for this note. * * Edits and ammendments created in [employer] are not visible * * in Patient Keeper or the legal medical record ([facility]). * -- CO-SIGNATURE -- COMMENTS: Case discussed with CHRISTIAN MINISTRIES PROFESSOR. Agree with the findings and plan as documented. Moderate complexity Signed in PatientKeeper by SHANICE THOMAS MD on 11/29/22 at 11:18 -- ASSESSMENT AND PLAN -- ADDITIONAL COMMENTS: PLAN Ulcerative Coliits Flare Rectal bleeding Diagnosed 1 year ago with colonoscopy in [facility]. CT scan - Subtle wall thickening/enhancement of the colonic wall, which may reflect sequelae of colitis. No significant chaz colonic inflammation. - Monitor CBC - ESR is 10 - IV steroids - Restart mesalamine, home med. - Inflammatory markers - ESR is 10. - continue to wean off IV steroids, - Still having intermittent hematochezia. - GI patient needs Humira, he will need an outpa tient follow-up -Transfuse to keep hemoglobin greater than 7.0 , hemoglobin so far stable Hypokalemia - Replace - Monitor Hyperglycemia - hgb A1c pending - SSI + POCT -We will avoid hypoglycemic events FULL CODE DVT PPx: SCDs. Hold Lovenox due to rectal bleedi ng. Disposition: As per clinical course, await impro vement in Ulcerative colitis symptoms. GI following -- SUBJECTIVE -- PATIENT NARRATIVE: Clinically is stable, complaining of int ermittent hematochezia. Plan discussed with patient and family. GI following. -- OBJECTIVE -- VITALS (11/27 11:09 - 11/28 11:09): Temperature C: 36.7 (36.5 - 37.1) Pulse Rate 52 (52 - 71) Respiratory rate: 18 (18 - 19) BP: 138/84 (138/83 - 161/96) -EXAM- GENERAL: Well developed, well nourished, in no a pparent distress. HEAD: Normocephalic, atraumatic. EYES: PERRL, EOM intact, conjunctiva and sclera clear, without nystagmus, lids normal. EARS: grossly normal hearing. MOUTH: Oropharynx without deformities or lesions , normal mucosa.. LUNGS: Clear bilaterally with normal respiratory effort. HEART: Regular rate and rhythm, normal S1, S2, ABDOMEN: Soft, non-tender, no organomegaly, no m asses noted, obese MUSCULOSKELETAL: No deformity, joint ROM grossly normal, normal gait and station. EXTREMITIES: No clubbing, no cyanosis, no edema . NEUROLOGICAL: No focal deficits, normal sensatio n, normal reflexes, normal coordination, normal muscle strength, no rmal tone. PULSES: Pulses normal in all extremities. SKIN: Intact without significant lesions, or anton hes. PSYCHIATRIC: Alert and oriented to time, person, place. Normal mood and affect, intact judgment and insight. -- DATA -- MEDICATIONS DEXTROSE 5%-NS 1000 ML IV .[id number] MESALAMINE 800 MG PO TID IPRATROPIUM/ALBUTEROL SULFATE 3 ML NEB RTQ6H PRN HYDROcodone BITARTRATE/APAP 1 TAB PO Q4H PRN methylPREDNISolone SOD SUCC 60 MG IV Q8HR polyethylene glycoL 3350 1 PKT PO DAILY PRN LORazepam 0.5 MG IV Q12H PRN ONDANSETRON HCL/PF 4 MG IV Q4H PRN DEXTROSE 5%-NS 1000 ML IV .[id number] NITROGLYCERIN 0.4 MG SL Q5M PRN guaiFENesin 600 MG PO BID PRN cloNIDine HCL 0.1 MG PO Q6H PRN ZOLPIDEM TARTRATE 10 MG PO BEDTIME PRN SODIUM CHLORIDE 0.9% 1000 ML IV .[id number] ACETAMINOPHEN 650 MG PO Q4H PRN HYDROmorphone HCL 0.5 MG IV Q6H PRN hydrALAZINE HCL 10 MG IV Q6H PRN INSULIN LISPRO 0 UNITS SUBQ ASDIR LABS GLU BED (11/28/22 05:51) GLUBED 161 H CBC W/AUTO DIFF (11/28/22 03:52) WHITE BLOOD CELL 12.6H H RED BLOOD CELL 4.83 HEMOGLOBIN 12.3D L D L HEMATOCRIT 38.7 MEAN CELL VOLUME 80 MEAN CELL HGB 25.5 L MEAN CELL HGB CONCENTRATION 31.8 RED CELL DISTRIBUTION WIDTH 15.8 H PLATELET COUNT 393 MEAN PLATELET VOLUME 10.9 NEUTROPHIL % 83.2 H IMMATURE GRANULOCYTE % 0.9 LYMPHOCYTE % 8.6 L MONOCYTE % 7.1 EOSINOPHIL % 0.0 BASOPHIL % 0.2 NUCLEATED RBC % 0.0 NEUTROPHIL # 10.5 H LYMPHOCYTE # 1.09 L MONOCYTE # 0.9 H EOSINOPHIL # 0.0 BASOPHIL # 0.0 MAG (11/28/22 03:52) MAGNESIUM 2.1 BASIC METABOLIC PANEL (11/28/22 03:52) SODIUM 133L L POTASSIUM 4.3 CHLORIDE 102 CARBON DIOXIDE 22 GLUCOSE 189H H BLOOD UREA NITROGEN 17 GLOMERULAR FILTRATION RATE >=60 max estimate CREATININE 0.87 CALCIUM 9.0 INDEX HEMOLYSIS 1 INDEX ICTERIC 1 INDEX LIPEMIA 0 PHOS (11/28/22 03:52) PHOSPHOROUS 3.2 GLU BED (11/27/22 17:39) GLUBED 122 H Signed in PatientKeeper by Ratna Logan APRN, NP on 11/28/22 at 18:51 Cosigned by SHANICE THOMAS MD on 11/29/22 at 11:18 at 1118 at 1118 ATTENTION *EDITS and/or ADDENDA must be made in Patient Ke eper for this note. * * Edits and ammendments created in [facility] are not visible * * in Patient Keeper or the legal medical record (HPF). * [facility] #: [id number] END OF REPORT 2022-11-27 11:05:00-00:00 [facility]W [facility] ([facility]) Hospitalist Progress Note REPORT #: [id number] REPORT STATUS: Signed DATE: 11/27/22 TIME: 1105 PATIENT: ALEX BURROUGHS UNIT #: [id number] ROOM #: N.0656 BED: 1 : 77 AGE: 47 SEX: M ATTEND: Faye Webster MD ADM AUTHOR: Sekou Rubi MD ATTENTION *EDITS and/or ADDENDA must be made in Patient Ke eper for this note. * * Edits and ammendments created in [employer] are not visible * * in Patient Keeper or the legal medical record (HPF). * -- ASSESSMENT AND PLAN -- GENERAL ASSESSMENT: Ulcerative Coliits Flare Rectal bleeding Diagnosed 1 year ago with colonoscopy in [facility]. CT scan - Subtle wall thickening/enhancement of the colonic wall, which may reflect sequelae of colitis. No significant chaz colonic inflammation. - Monitor CBC - ESR is 10 - IV steroids - Restart mesalamine, home med. - Inflammatory markers - ESR is 10. - GI - following, will continue IV stero ids, will need to establish outpatient care with GI. Hypokalemia - Replace - Monitor Hyperglycemia - Check A1c - SSI FULL CODE DVT PPx: SCDs. Hold Lovenox due to rectal bleedi ng. Disposition: As per clinical course, await impro vement in Ulcerative colitis symptoms. GI following -- SUBJECTIVE -- PATIENT NARRATIVE: Pt notes that he is feeling better. He reports n eedle like pains to the left chest. He reports some abdominal pain--rated as a 6/10 in intensity. He reports that he had 10 episodes of diarrhea yest erday, and 6 episodes last night. Overall, diarrhea is improved and bleedin g is better. No other issues per nursing staff. -- OBJECTIVE -- VITALS (11/26 11:05 - 11/27 11:05): Temperature C: 36.2 (36.2 - 37.1) Temperature source: Oral Pulse Rate 95 (50 - 95) Respiratory rate: 19 (16 - 19) BP: 157/95 (118/73 - 157/95) -EXAM- GENERAL: Well developed, well nourished, in no a pparent distress. HEAD: Normocephalic, atraumatic. EYES: Conjunctiva and sclera clear, without nyst agmus, lids normal. EARS: Grossly normal hearing. NOSE: No deformity, no discharge, no inflammatio n, no lesions. MOUTH: Oropharynx without deformities or lesions , normal mucosa.. NECK: No masses, no thyromegaly, no abnormal cer vical nodes, trachea midline. LUNGS: Clear bilaterally with normal respiratory effort. HEART: Regular rate and rhythm, normal S1, S2, n o murmurs, no rubs, no gallops, no clicks. ABDOMEN: Soft, +diffuse TTP to lower quadrants. NABS. MUSCULOSKELETAL: No deformity. EXTREMITIES: No clubbing, no cyanosis, no edema. NEUROLOGICAL: No focal deficits. PULSES: Pulses normal in all extremities. SKIN: Intact without significant lesions, or anton hes. LYMPH NODES: No significant cervical node adenop athy. PSYCHIATRIC: Alert and oriented to time, person, place. Normal mood and affect, intact judgment and insight. -- DATA -- MEDICATIONS DEXTROSE 5%-NS 1000 ML IV .[id number] MESALAMINE 800 MG PO TID IPRATROPIUM/ALBUTEROL SULFATE 3 ML NEB RTQ6H PRN HYDROcodone BITARTRATE/APAP 1 TAB PO Q4H PRN methylPREDNISolone SOD SUCC 60 MG IV Q8HR polyethylene glycoL 3350 1 PKT PO DAILY PRN LORazepam 0.5 MG IV Q12H PRN ONDANSETRON HCL/PF 4 MG IV Q4H PRN DEXTROSE 5%-NS 1000 ML IV .[id number] NITROGLYCERIN 0.4 MG SL Q5M PRN guaiFENesin 600 MG PO BID PRN cloNIDine HCL 0.1 MG PO Q6H PRN ZOLPIDEM TARTRATE 10 MG PO BEDTIME PRN SODIUM CHLORIDE 0.9% 1000 ML IV .[id number] ACETAMINOPHEN 650 MG PO Q4H PRN HYDROmorphone HCL 0.5 MG IV Q6H PRN hydrALAZINE HCL 10 MG IV Q6H PRN INSULIN LISPRO 0 UNITS SUBQ ASDIR LABS MAG (11/27/22 05:44) MAGNESIUM 1.5 L PHOS (11/27/22 05:44) PHOSPHOROUS 3.0 BASIC METABOLIC PANEL (11/27/22 05:44) SODIUM 137 POTASSIUM 3.4L L CHLORIDE 109 CARBON DIOXIDE 22 GLUCOSE 804*H *H BLOOD UREA NITROGEN 8 GLOMERULAR FILTRATION RATE >=60 max estimate CREATININE 0.77 CALCIUM 7.1 L INDEX HEMOLYSIS 1 INDEX ICTERIC 1 INDEX LIPEMIA 0 CBC W/AUTO DIFF (11/27/22 05:44) WHITE BLOOD CELL 9.5 RED BLOOD CELL 4.26 HEMOGLOBIN 10.8D L D L HEMATOCRIT 34.3L L MEAN CELL VOLUME 81 MEAN CELL HGB 25.4 L MEAN CELL HGB CONCENTRATION 31.5 RED CELL DISTRIBUTION WIDTH 15.9 H PLATELET COUNT 330 MEAN PLATELET VOLUME 11.2 NEUTROPHIL % 77.5 H IMMATURE GRANULOCYTE % 0.7 LYMPHOCYTE % 11.9 L MONOCYTE % 9.7 EOSINOPHIL % 0.0 BASOPHIL % 0.2 NUCLEATED RBC % 0.0 NEUTROPHIL # 7.4 H LYMPHOCYTE # 1.14 MONOCYTE # 0.9 H EOSINOPHIL # 0.0 BASOPHIL # 0.0 Signed in PatientKeeper by SEKOU RUBI MD n 11/27/22 at 20:12 at 2012 ATTENTION *EDITS and/or ADDENDA must be made in Patient Ke eper for this note. * * Edits and ammendments created in [employer] are not visible * * in Patient Keeper or the legal medical record (HPF). * [facility] #: [id number] END OF REPORT 2022-11-27 11:05:00-00:00 [facility]ANW [facility] ([facility]) Gastroenterology Prog. Note REPORT #: [id number] REPORT STATUS: Signed DATE: 11/27/22 TIME: 1105 PATIENT: ALEX BURROUGHS UNIT #: [id number] ROOM #: N.0656 BED: 1 : 77 AGE: 47 SEX: M ATTEND: Lopez Webster MD ADM AUTHOR: Obey Fernandez MD ATTENTION *EDITS and/or ADDENDA must be made in Patient Ke eper for this note. * * Edits and ammendments created in [employer] are not visible * * in Patient Keeper or the legal medical record (HPF). * -- SUBJECTIVE -- CHIEF COMPLAINT: Interval hx: No new complaints REASON FOR CONSULTATION: Rectal bleeding. HISTORY OF PRESENT ILLNESS: A 47-year-old with h istory of ulcerative colitis diagnosed last year, who has been medically noncompliant. He has been attending the hospital in [place] and has not established care in our clinic. He has been taking off and on some prednisone, which he gets from the emergency room and he had some improvement, but there has been some waxing and waning. Hemoglobin has remained stab le at 12.6 and 12.3. He is still having intermittent bleeding. He therefore came into the hospital. C AT scan shows septal wall enhancement of the colonic wall. PAST MEDICAL HISTORY: Ulcerative colitis diagnos ed last year. ALLERGIES: NO KNOWN DRUG ALLERGY. FAMILY HISTORY: Noncontributory. SOCIAL HISTORY: No history of smoking, alcohol a buse. REVIEW OF SYSTEMS: A 14-point review of systems was normal, except as documented above. PHYSICAL EXAMINATION: VITAL SIGNS: The patient was afebrile. HEENT: Anicteric. NECK: No jugular venous distention. Oropharynx, his neck was supple. CHEST: Clear. ABDOMEN: Soft, was nondistended. No organomegaly . CENTRAL NERVOUS SYSTEM: Alert. LABORATORY DATA: Hemoglobin is 12.0, hematocrit of 10.5. Sodium 135, 3.9 potassium, 19 BUN, 1.21 creatinine. LFTs were no rmal. ASSESSMENT AND PLAN: A 47-year-old with history of ulcerative colitis, who has exacerbation, uncontrolled by oral steroids. The patient will be commenced on IV steroids and once the patient is improved and controlled, he will be discharged to continue outpatient management. I have advised the patient to establish care with GI, so t hat he could get biologics and that will control his disease and may have mucosal healing. He verbali zed understanding. -- OBJECTIVE -- VITALS (11/26 11:05 - 11/27 11:05): Temperature C: 36.2 (36.2 - 37.1) Temperature source: Oral Pulse Rate 95 (50 - 95) Respiratory rate: 19 (16 - 19) BP: 157/95 (118/73 - 157/95) -- DATA -- MEDICATIONS DEXTROSE 5%-NS 1000 ML IV .[id number] MESALAMINE 800 MG PO TID IPRATROPIUM/ALBUTEROL SULFATE 3 ML NEB RTQ6H PRN HYDROcodone BITARTRATE/APAP 1 TAB PO Q4H PRN methylPREDNISolone SOD SUCC 60 MG IV Q8HR polyethylene glycoL 3350 1 PKT PO DAILY PRN LORazepam 0.5 MG IV Q12H PRN ONDANSETRON HCL/PF 4 MG IV Q4H PRN DEXTROSE 5%-NS 1000 ML IV .[id number] NITROGLYCERIN 0.4 MG SL Q5M PRN guaiFENesin 600 MG PO BID PRN cloNIDine HCL 0.1 MG PO Q6H PRN ZOLPIDEM TARTRATE 10 MG PO BEDTIME PRN SODIUM CHLORIDE 0.9% 1000 ML IV .[id number] ACETAMINOPHEN 650 MG PO Q4H PRN HYDROmorphone HCL 0.5 MG IV Q6H PRN hydrALAZINE HCL 10 MG IV Q6H PRN INSULIN LISPRO 0 UNITS SUBQ ASDIR LABS MAG (11/27/22 05:44) MAGNESIUM 1.5 L PHOS (11/27/22 05:44) PHOSPHOROUS 3.0 BASIC METABOLIC PANEL (11/27/22 05:44) SODIUM 137 POTASSIUM 3.4L L CHLORIDE 109 CARBON DIOXIDE 22 GLUCOSE 804*H *H BLOOD UREA NITROGEN 8 GLOMERULAR FILTRATION RATE >=60 max estimate CREATININE 0.77 CALCIUM 7.1 L INDEX HEMOLYSIS 1 INDEX ICTERIC 1 INDEX LIPEMIA 0 CBC W/AUTO DIFF (11/27/22 05:44) WHITE BLOOD CELL 9.5 RED BLOOD CELL 4.26 HEMOGLOBIN 10.8D L D L HEMATOCRIT 34.3L L MEAN CELL VOLUME 81 MEAN CELL HGB 25.4 L MEAN CELL HGB CONCENTRATION 31.5 RED CELL DISTRIBUTION WIDTH 15.9 H PLATELET COUNT 330 MEAN PLATELET VOLUME 11.2 NEUTROPHIL % 77.5 H IMMATURE GRANULOCYTE % 0.7 LYMPHOCYTE % 11.9 L MONOCYTE % 9.7 EOSINOPHIL % 0.0 BASOPHIL % 0.2 NUCLEATED RBC % 0.0 NEUTROPHIL # 7.4 H LYMPHOCYTE # 1.14 MONOCYTE # 0.9 H EOSINOPHIL # 0.0 BASOPHIL # 0.0 Signed in PatientKeeper by Obey Fernandez on 11/28/22 at 09:41 at 0941 ATTENTION *EDITS and/or ADDENDA must be made in Patient Ke eper for this note. * * Edits and ammendments created in [employer] are not visible * * in Patient Keeper or the legal medical record (HPF). * [facility] #: [id number] END OF REPORT 2022-11-27 09:53:00-00:00 HCANW [facility] ([facility]) Med Order Sheet REPORT #: [id number] REPORT STATUS: Signed DATE: 11/27/22 TIME: 952 PATIENT: ALEX BURROUGHS UNIT #: [id number] ROOM #: N.0656 BED: 1 : 77 AGE: 47 SEX: M ATTEND: Faye Webster MD ADM AUTHOR: Sekou Rubi MD ATTENTION *EDITS and/or ADDENDA must be made in Patient Ke ep for this note. * * Edits and ammendments created in [employer] are not visible * * in Patient Keeper or the legal medical record (HPF). * Admission Medication Reconciliation -- CONTINUED / CHANGED HOME MEDICATIONS -- Home: Mesalamine DR Cap (Delzicol Cap) 800 MG PO TID Hosp: Mesalamine DR Cap (Delzicol Cap) 800 MG PO TID The following home medications have not yet been reconciled: Medrol Dosepak DsPk (methylprednisolone) 4 MG PO ASDIR (Take as directed on package.) at 0953 ATTENTION *EDITS and/or ADDENDA must be made in Patient Ke ep for this note. * * Edits and ammendments created in [employer] are not visible * * in Patient Keeper or the legal medical record (HPF). * [facility] #: [id number] END OF REPORT 2022-11-26 15:03:00-00:00 [id number] [facility] [address] [place] [address] PATIENT NAME: ALEX BURROUGHS ADMIT DATE: 11/26/22 ACCOUNT NO: [id number] ROOM NO: N.0656 AGE: 47 REPORT TYPE: CONSULTATION SEX: M ADMITTING PHYSICIAN:Laureano Webster MD ATTENDING PHYSICIAN:Laureano Webster MD CONSULTATION DATE: REASON FOR CONSULTATION: Rectal bleeding. HISTORY OF PRESENT ILLNESS: A 47-year-old with h istory of ulcerative colitis diagnosed last year, who has been medically noncompliant. He has been attending the hospital in [place] and has not established care in our clinic. He has been taking off and on some prednisone, which he gets from the emergency room and he had some improvement, but there has been some waxing and waning. Hemoglobin has remained stab le at 12.6 and 12.3. He is still having intermittent bleeding. He therefore came into the hospital. C AT scan shows septal wall enhancement of the colonic wall. PAST MEDICAL HISTORY: Ulcerative colitis diagnos ed last year. ALLERGIES: NO KNOWN DRUG ALLERGY. FAMILY HISTORY: Noncontributory. SOCIAL HISTORY: No history of smoking, alcohol a buse. REVIEW OF SYSTEMS: A 14-point review of systems was normal, except as documented above. PHYSICAL EXAMINATION: VITAL SIGNS: The patient was afebrile. HEENT: Anicteric. NECK: No jugular venous distention. Oropharynx, his neck was supple. CHEST: Clear. ABDOMEN: Soft, was nondistended. No organomegaly . CENTRAL NERVOUS SYSTEM: Alert. LABORATORY DATA: Hemoglobin is 12.0, hematocrit of 10.5. Sodium 135, 3.9 potassium, 19 BUN, 1.21 creatinine. LFTs were no rmal. ASSESSMENT AND PLAN: A 47-year-old with history of ulcerative colitis, who has exacerbation, uncontrolled by oral steroids. The patient will be commenced on IV steroids and once the patient is improved and controlled, he will be discharged to continue outpatient management. I have advised the patient to establish care with GI, so t hat he could get biologics and that will control his disease and may have mucosal healing. He verbali zed understanding. PATIENT NAME ALEX BURROUGHS [address] Dr. Webster, thanks for this consult. Dictated By: Obey Fernandez MD Date Dictated: 11/26/2022 15:03:10 Date Transcribed: 11/26/2022 20:08:38 DARIEN/ANDRIA Receipt ID: [id number] Authenticated by Obey Fernandez MD On 11/28 09:44:06 AM at 0944 PATIENT NAME ALEX BURROUGHS 32 2022-11-26 12:44:00-00:00 HCANW [facility] Hospitalist Progress Note REPORT #: [id number] REPORT STATUS: Signed DATE: 11/26/22 TIME: 1244 PATIENT: ALEX BURROUGHS UNIT #: [id number] ROOM #: [facility] BED: 1 : 77 AGE: 47 SEX: M ATTEND: Faye Webster MD ADM AUTHOR: Sekou Rubi MD ATTENTION *EDITS and/or ADDENDA must be made in Patient Ke eper for this note. * * Edits and ammendments created in [facility] are not visible * * in Patient Keeper or the legal medical record (HPF). * -- ASSESSMENT AND PLAN -- GENERAL ASSESSMENT: Ulcerative Coliits Flare Rectal bleeding Diagnosed 1 year ago with colonoscopy in [facility]. - Monitor CBC - ESR is 10 - IV steroids - Inflammatory markers - GI consulted FULL CODE DVT PPx: SCDs. Hold Lovenox due to rectal bleedi ng. Disposition: As per clinical course. Pending GI input -- SUBJECTIVE -- PATIENT NARRATIVE: The patient reports 20-30 bloody episode of diar jared / day x 2-3 days. He reports having a colonoscopy one year ago, and had U.C. diagnosed at that time. -- OBJECTIVE -- VITALS (11/25 12:44 - 11/26 12:44): Temperature F: 97.3 Temperature C: 36.9 (36.7 - 36.9) Temperature source: Oral Pulse Rate 63 (60 - 101) Respiratory rate: 17 (16 - 20) BP: 119/61 (116/61 - 150/100) -EXAM- GENERAL: Well developed, well nourished, in no a pparent distress. HEAD: Normocephalic, atraumatic. EYES: Conjunctiva and sclera clear, without nys tagmus, lids normal. EARS: Grossly normal hearing. NOSE: No deformity, no discharge, no inflammatio n, no lesions. MOUTH: Oropharynx without deformities or lesions , normal mucosa.. NECK: No masses, no thyromegaly, no abnormal cer vical nodes, trachea midline. LUNGS: Clear bilaterally with normal respiratory effort. HEART: Regular rate and rhythm, normal S1, S2, no murmurs, no rubs, no gallops, no clicks. ABDOMEN: Soft, +diffuse TTP to lower quadrants. NABS. MUSCULOSKELETAL: No deformity. EXTREMITIES: No clubbing, no cyanosis, no edema. NEUROLOGICAL: No focal deficits. PULSES: Pulses normal in all extremities. SKIN: Intact without significant lesions, or anton hes. LYMPH NODES: No significant cervical node adenop athy. PSYCHIATRIC: Alert and oriented to time, person, place. Normal mood and affect, intact judgment and insight. -- DATA -- MEDICATIONS DEXTROSE 5%-NS 1000 ML IV .[id number] IPRATROPIUM/ALBUTEROL SULFATE 3 ML NEB RTQ6H PRN HYDROcodone BITARTRATE/APAP 1 TAB PO Q4H PRN methylPREDNISolone SOD SUCC 60 MG IV Q8HR polyethylene glycoL 3350 1 PKT PO DAILY PRN LORazepam 0.5 MG IV Q12H PRN ONDANSETRON HCL/PF 4 MG IV Q4H PRN DEXTROSE 5%-NS 1000 ML IV .[id number] NITROGLYCERIN 0.4 MG SL Q5M PRN guaiFENesin 600 MG PO BID PRN cloNIDine HCL 0.1 MG PO Q6H PRN ZOLPIDEM TARTRATE 10 MG PO BEDTIME PRN SODIUM CHLORIDE 0.9% 1000 ML IV .[id number] ACETAMINOPHEN 650 MG PO Q4H PRN morphine SULFATE 2 MG IV Q4H PRN hydrALAZINE HCL 10 MG IV Q6H PRN LABS CBC W/AUTO DIFF (11/26/22 09:23) WHITE BLOOD CELL 10.2 RED BLOOD CELL 4.83 HEMOGLOBIN 12.3L L HEMATOCRIT 39.0 MEAN CELL VOLUME 81 MEAN CELL HGB 25.5 L MEAN CELL HGB CONCENTRATION 31.5 RED CELL DISTRIBUTION WIDTH 15.8 H PLATELET COUNT 382 MEAN PLATELET VOLUME 10.7 NEUTROPHIL % 80.5 H IMMATURE GRANULOCYTE % 0.5 LYMPHOCYTE % 13.9 L MONOCYTE % 4.6 EOSINOPHIL % 0.1 BASOPHIL % 0.4 NUCLEATED RBC % 0.0 NEUTROPHIL # 8.2 H LYMPHOCYTE # 1.42 MONOCYTE # 0.5 EOSINOPHIL # 0.0 BASOPHIL # 0.0 BASIC METABOLIC PANEL (11/26/22 09:23) SODIUM 133L L POTASSIUM 4.2 CHLORIDE 101 CARBON DIOXIDE 21 GLUCOSE 158H H BLOOD UREA NITROGEN 12 GLOMERULAR FILTRATION RATE >=60 max estimate CREATININE 0.81 CALCIUM 9.0 INDEX HEMOLYSIS 0 INDEX ICTERIC 1 INDEX LIPEMIA 0 SED RATE (11/26/22 09:23) SED RATE 10 TSH (11/26/22 04:07) THYROID STIMULATING HORMONE 1.762 BASIC METABOLIC PANEL (11/26/22 04:07) SODIUM 133L L POTASSIUM 4.2 CHLORIDE 104 CARBON DIOXIDE 21 GLUCOSE 173H H BLOOD UREA NITROGEN 16 GLOMERULAR FILTRATION RATE >=60 max estimate CREATININE 0.92 CALCIUM 8.4 L INDEX HEMOLYSIS 0 INDEX ICTERIC 1 INDEX LIPEMIA 0 CBC W/AUTO DIFF (11/26/22 04:07) WHITE BLOOD CELL 9.6 RED BLOOD CELL 4.71 HEMOGLOBIN 11.9L L HEMATOCRIT 37.9L L MEAN CELL VOLUME 81 MEAN CELL HGB 25.3 L MEAN CELL HGB CONCENTRATION 31.4 RED CELL DISTRIBUTION WIDTH 15.9 H PLATELET COUNT 334 MEAN PLATELET VOLUME 10.5 NEUTROPHIL % 84.3 D H IMMATURE GRANULOCYTE % 0.6 LYMPHOCYTE % 11.3 D L MONOCYTE % 2.8 EOSINOPHIL % 0.4 BASOPHIL % 0.6 NUCLEATED RBC % 0.0 NEUTROPHIL # 8.1 H LYMPHOCYTE # 1.09 L MONOCYTE # 0.3 EOSINOPHIL # 0.0 BASOPHIL # 0.1 UA RFLX MICR amp;CULT IF INDICATED (11/25/22 22: 07) UA COLOR YELLOW UA APPEARANCE HAZY UA GLUCOSE DIPSTICK NEGATIVE UA BILIRUBIN DIPSTICK NEGATIVE UA KETONE DIPSTICK NEGATIVE UA SPECIFIC GRAVITY 1.031 UA BLOOD DIPSTICK NEGATIVE UA PH DIPSTICK 5.0 UA PROTEIN DIPSTICK NEGATIVE UA UROBILINOGEN DIPSTICK NEGATIVE UA NITRITE DIPSTICK NEGATIVE UA ASCORBIC ACID DIPSTICK NEGATIVE UA LEUKOCYTE ESTERASE DIPSTICK NEGATIVE UA WBC 0-5 UA RBC 0-5 UA EPITHELIAL CELLS None UA BACTERIA None UA HYALINE CAST 0-1 UA CALCIUM OXALATE CRYSTALS MANY UA MUCUS 1+ LIP (11/25/22 21:52) LIPASE 37 LIVER FUNCTION PANEL (11/25/22 21:52) TOTAL PROTEIN 7.2 ALBUMIN 3.5 BILIRUBIN TOTAL 0.30 BILIRUBIN DIRECT < 0.1 SGOT/AST 17 SGPT/ALT 23 ALKALINE PHOSPHATASE 61 INDEX HEMOLYSIS 0 INDEX ICTERIC 1 INDEX LIPEMIA 1 BASIC METABOLIC PANEL (11/25/22 21:52) SODIUM 136 POTASSIUM 3.9 CHLORIDE 106 CARBON DIOXIDE 22 GLUCOSE 127H H BLOOD UREA NITROGEN 19 GLOMERULAR FILTRATION RATE >=60 max estimate CREATININE 1.21 CALCIUM 8.8 INDEX HEMOLYSIS 0 INDEX ICTERIC 1 INDEX LIPEMIA 1 CBC W/AUTO DIFF (11/25/22 21:52) WHITE BLOOD CELL 10.5 RED BLOOD CELL 4.90 HEMOGLOBIN 12.6L L HEMATOCRIT 39.4 MEAN CELL VOLUME 80 MEAN CELL HGB 25.7 L MEAN CELL HGB CONCENTRATION 32.0 RED CELL DISTRIBUTION WIDTH 15.8 H PLATELET COUNT 379 MEAN PLATELET VOLUME 10.9 NEUTROPHIL % 53.3 IMMATURE GRANULOCYTE % 0.7 LYMPHOCYTE % 24.5 MONOCYTE % 18.4 H EOSINOPHIL % 2.0 BASOPHIL % 1.1 H NUCLEATED RBC % 0.0 NEUTROPHIL # 5.6 LYMPHOCYTE # 2.58 MONOCYTE # 1.9 H EOSINOPHIL # 0.2 BASOPHIL # 0.1 Signed in PatientKeeper by SEKOU RUBI MD 11/26/22 at 12:51 at 1251 ATTENTION *EDITS and/or ADDENDA must be made in Patient Ke eper for this note. * * Edits and ammendments created in [facility] are not visible * * in Patient Keeper or the legal medical record (HPF). * RPT #: [id number] END OF REPORT 2022-11-25 23:03:00-00:00 HC[facility] ([facility]) Hospitalist P REPORT #: [id number] REPORT STATUS: Signed DATE: 11/25/22 TIME: 2302 PATIENT: ALEX BURROUGHS UNIT #: [id number] ROOM #: N.ERST BED: 1 : 77 AGE: 47 SEX: M ATTEND: Faye Webster MD ADM AUTHOR: Laureano Webster MD ATTENTION *EDITS and/or ADDENDA must be made in Patient Ke eper for this note. * * Edits and ammendments created in [employer] are not visible * * in Patient Keeper or the legal medical record (HPF). * -- HISTORY -- ADMISSION DATE: 2022-11-25 PRIMARY CARE PROVIDER: Primary or Family Physician, No CHIEF COMPLAINT: Rectal bleed HPI: This is a pleasant 47-year-o ld male with history of ulcerative colitis presents to the ER complaining of rectal bleed. Per patie nt this is going on for past couple of days describes the intensity as moderate no fever no chills. No other associated symptoms no other exacerbating reliev ing factor. Patient was recently diagnosed last year with ulcerative col itis. PAST MEDICAL HISTORY: Ulcerative colitis PAST SURGICAL HISTORY: Reviewed FAMILY HISTORY: FAMILY HISTORY Reviewed Social history reviewed Medications at home reviewed Allergies reviewed -- ALLERGIES/HOME MEDS -- ALLERGIES: No Known Allergies (UNKNOWN - Allergy) -- SUBJECTIVE -- -REVIEW OF SYSTEMS- COMMENT: 14 system reviewed unremarkable except for symptoms as mentioned above -- OBJECTIVE -- VITALS (11/25 05:02 - 11/26 05:02): Temperature F: 97.3 Temperature C: 36.9 (36.7 - 36.9) Temperature source: Oral Pulse Rate 75 (73 - 101) Respiratory rate: 18 (18 - 20) BP: 138/84 (120/84 - 150/100) ADDITIONAL V/S: Head clean nontender Lungs clear to auscultation no wheezing rhonchi Cardiovascular heart regular rate rhythm no murm ur GI abdomen soft tenderness to palpation.diffuse Neurology patient is awake alert [place] x3 no mo tor or sensory deficit Skin warm and dry Psych normal affect -- DATA -- LABS UA RFLX MICR amp;CULT IF INDICATED (11/25/22 22: 07) UA COLOR YELLOW UA APPEARANCE HAZY UA GLUCOSE DIPSTICK NEGATIVE UA BILIRUBIN DIPSTICK NEGATIVE UA KETONE DIPSTICK NEGATIVE UA SPECIFIC GRAVITY 1.031 UA BLOOD DIPSTICK NEGATIVE UA PH DIPSTICK 5.0 UA PROTEIN DIPSTICK NEGATIVE UA UROBILINOGEN DIPSTICK NEGATIVE UA NITRITE DIPSTICK NEGATIVE UA ASCORBIC ACID DIPSTICK NEGATIVE UA LEUKOCYTE ESTERASE DIPSTICK NEGATIVE UA WBC 0-5 UA RBC 0-5 UA EPITHELIAL CELLS None UA BACTERIA None UA HYALINE CAST 0-1 UA CALCIUM OXALATE CRYSTALS MANY UA MUCUS 1+ LIP (11/25/22 21:52) LIPASE 37 LIVER FUNCTION PANEL (11/25/22 21:52) TOTAL PROTEIN 7.2 ALBUMIN 3.5 BILIRUBIN TOTAL 0.30 BILIRUBIN DIRECT < 0.1 SGOT/AST 17 SGPT/ALT 23 ALKALINE PHOSPHATASE 61 INDEX HEMOLYSIS 0 INDEX ICTERIC 1 INDEX LIPEMIA 1 BASIC METABOLIC PANEL (11/25/22 21:52) SODIUM 136 POTASSIUM 3.9 CHLORIDE 106 CARBON DIOXIDE 22 GLUCOSE 127H H BLOOD UREA NITROGEN 19 GLOMERULAR FILTRATION RATE >=60 max estimate CREATININE 1.21 CALCIUM 8.8 INDEX HEMOLYSIS 0 INDEX ICTERIC 1 INDEX LIPEMIA 1 CBC W/AUTO DIFF (11/25/22 21:52) WHITE BLOOD CELL 10.5 RED BLOOD CELL 4.90 HEMOGLOBIN 12.6L L HEMATOCRIT 39.4 MEAN CELL VOLUME 80 MEAN CELL HGB 25.7 L MEAN CELL HGB CONCENTRATION 32.0 RED CELL DISTRIBUTION WIDTH 15.8 H PLATELET COUNT 379 MEAN PLATELET VOLUME 10.9 NEUTROPHIL % 53.3 IMMATURE GRANULOCYTE % 0.7 LYMPHOCYTE % 24.5 MONOCYTE % 18.4 H EOSINOPHIL % 2.0 BASOPHIL % 1.1 H NUCLEATED RBC % 0.0 NEUTROPHIL # 5.6 LYMPHOCYTE # 2.58 MONOCYTE # 1.9 H EOSINOPHIL # 0.2 BASOPHIL # 0.[address] ABD amp;PELVIS W/CONT (11/21/22 17:00) IMPRESSION: 1. Subtle wall thickening/enhancement of the col onic wall, which may reflect sequelae of colitis. No significant chaz colonic inflammation. 2. No obstructive uropathy or bowel obstruction. Normal appendix -- ASSESSMENT AND PLAN -- GENERAL ASSESSMENT: Rectal bleed in a patient with history of ulcera tive colitis Close monitoring of hemoglobin Hemoglobin check every 8 GI consult Check inflammation marker Colitis per CT abdomen related to exacerbation o f UC iv solumedrol Further recommendations to follow -- QUALITY -- -MEDICATIONS- - I attest that the foregoing medication list i n the medical record is true, accurate, and complete to the best of my knowled ge. -ADVANCED CARE PLAN >65- PATIENT HAS AN ADVANCE CARE PLAN: Yes PATIENT HAS A SURROGATE DECISION MAKER: No -VTE PROPHYLAXIS -GENERAL- Yes -- ATTESTATION -- CARE ACTIVITIES / CARE COORDINATION: - I have reviewed the history and repeated the schulte elements - I have seen and examined this patient - I have discussed the leanne ent's condition with other members of the care team Signed in PatientKeeper by Laureano Webster MD o n 11/26/22 at 05:55 at 0555 ATTENTION *EDITS and/or ADDENDA must be made in Patient Ke eper for this note. * * Edits and ammendments created in [employer] are not visible * * in Patient Keeper or the legal medical record ([facility]). * RPT #: [id number] END OF REPORT 2022-11-25 21:40:00-00:00 [facility] ([facility] [facility] EMERGENCY PROVIDER REPORT REPORT#:[id number] REPORT STATUS: Signed DATE:11/25/22 TIME: 2139 PATIENT: ALEX BURROUGHS UNIT #: [id number] ROOM: [facility] BED: 1 AGE: 47 SEX: M PCP PHYS: No Primary or Family Ph ysician SERVICE AUTHOR: Dennis Bower II, MD * ALL edits or amendments must be made on the el ectronic/computer document * HPI-GI Bleed/Rectal Prob Free Text HPI Notes Free Text HPI Notes Patient is a 47-year-old mal e with a history of ulcerative colitis who presents to the emergency department with return of rectal bleeding. Patient also has an additional complaint of a "ball" in his rectum. This was not present on previous visit. Patient states that after last v isit he improved transiently. He states that approximately 1 to 2 days ago he started to have a return of rectal bleeding. He describes it as brig ht red blood. He denies fevers, chills , nausea, vomiting, or urinary symptoms. He has no additional complaints at this time. General Confirmed Patient Yes Patient Type New patient Initial Greet Date/Time 11/25/222130 Presentation Chief Complaint Rectal pain, Stool bright red bl ood Bleeding Severity Moderate Onset Occurred Yesterday Symptom Duration Constant Progression since Onset Constant Location Rectum Quality Burning Radiation No: Does not radiate. Severity: Onset Moderate Severity: Current Moderate Exacerbated by Nothing Relieved by Nothing Risk-GI Bleed/Rectal Prob Risk Stratification Bleeding Risk factors reviewed Review of Systems ROS Statements All systems rev neg except as marked. Focused Review of Systems Constitutional Denies: Fever. Cardiovascular Denies: Chest pain, Palpitations. GI Reports: Hematochezia. Denies: Diarrhea, Melena. Skin Denies: Rash. Past Medical History - Adult Stated Complaint RECTAL BLEEDING BRIGHT RED BLOO D Allergies Coded Allergies: No Known Allergies (11/21/22) Home Medications Active Scripts Methylprednisolone (Medrol 4 Mg Dosepak) 4 MG PO ASDIR Methylprednisolone (Medrol 4 Mg Dosepak) 4 MG P O ASDIR #1 PACKET Prov: 11/21/22 Additional Medical History Ulcerative Colitis Additional Surgical History Neg Additional Family History Reviewed and noncontributory Alcohol Use Denies EtOH use Drug Use Denies recreational drugs Smoking status for patients 13 years old or olde r: Never Smoker Physical Exam Vital Signs Vital Signs First Documented: Result Date Time Pulse Ox 98 11/25 2137 B/P 150/100 11/25 2137 B/P Mean 116.9 11/25 2137 Temp 36.7 11/25 2137 Pulse 87 11/25 2137 Resp 11/25 Last Documented: Result Date Time Pulse Ox 97 11/25 2257 B/P 126/85 11/25 2257 Temp 36.9 11/25 2257 Pulse 101 11/25 2257 Resp 11/25 B/P Mean 116.9 11/25 2137 Review of Vital Signs Reviewed Free Text PE Notes Free Text PE Notes Gen/Const: awake, alert, no acute distress, well appearing MS Head: normocephalic, atraumatic Neck: no midline ttp Eyes: PERRL b/l Ears/Nose/Throat: normal posterior oropharynx Resp/Chest: lungs CTAB; no wheezes, rales, rhonc hi, retractions Cardiovascular: rrr; no murm urs, gallops, or rubs; capillary refill less than 2 seconds Abdomen/GI: soft, nontender, nondistended, bowel sounds equal and reactive MS Upper Extremity: Atraumatic, no abnormalities noted MS Lower Extremity: Atraumatic; no clubbing, cya nosis, or edema MS Back: No midline tenderness palpation; no betzaida p-offs or deformities Skin: Normal color; no rash present; no petechia e or purpura : Deferred Rectum: no active bleeding; pt has eryth kacie chaz-retally with no induration or fluctuance; pt has no clinic al evidence of abscess at this time, but the area is red/inflammed Neurologic: Awake, alert, oriented x4; normal mo tor function; normal sensory function Psyhchiatric: Not suicidal/homicidal Interpretation Diagnostics Lab Results Interpretation Considerations Independ review imaging Results Laboratory Tests 11/25/222151: [Embedded Image Not Available] Laboratory Tests: 11/25 Chemistry Sodium (135 - 145 mmol/L) 136 Potassium (3.6 - 5.0 mmol/L) 3.9 Chloride (101 - 111 mmol/L) 106 Carbon Dioxide (21 - 31 mmol/L) 22 BUN (6 - 20 mg/dl) 19 Creatinine (0.64 - 1.27 mg/dL) 1.21 Glomerular Filtr Rate (>60) >=60 max estimate Glucose (70 - 100 mg/dl) 127 H Calcium (8.5 - 10.5 mg/dL) 8.8 Total Bilirubin (0.2 - 1.3 mg/dL) 0.30 Direct Bilirubin (0.00 - 0.20 mg/dL) < 0.1 AST (10 - 42 U/L) 17 ALT (10 - 60 U/L) 23 Total Alk Phosphatase (42 - 121 U/L) 61 Total Protein (6.7 - 8.2 g/dL) 7.2 Albumin (3.2 - 5.5 g/dL) 3.5 Lipase (22 - 51 IU/L) 37 Specimen Appearance (1 NORMAL Index/DL) 1 Specimen Hemolysis (1 NORMAL Index/DL) 0 Hematology WBC (3.2 - 11.5 x10 3/uL) 10.5 RBC (4.20 - 5.70 x10(6)/m) 4.90 Hgb (12.9 - 17.3 g/dL) 12.6 L Hct (38.7 - 51.0 %) 39.4 MCV (80 - 100 fL) 80 MCH (26.7 - 33.3 pg) 25.7 L MCHC (30.0 - 34.0 g/dL) 32.0 RDW (11.3 - 14.5 %) 15.8 H Plt Count (130 - 408 x10 3/uL) 379 MPV (8.6 - 12.6 fL) 10.9 Neut % (Auto) (40.0 - 70.0 %) 53.3 Lymph % (Auto) (20 - 40 %) 24.5 [place] % (Auto) (1 - 10 %) 18.4 H Eos % (Auto) (0.0 - 5.0 %) 2.0 Baso % (Auto) (0.0 - 1.0 %) 1.1 H Neut # (Auto) (1.6 - 7.2 x10 3/uL) 5.6 Lymph # (Auto) (1.1 - 2.7 x10 3/uL) 2.58 [place] # (Auto) (0.3 - 0.8 x10 3/uL) 1.9 H Eos # (Auto) (0.0 - 0.5 x10 3/uL) 0.2 Baso # (Auto) (0.0 - 0.1 x10 3/uL) 0.1 Immature Gran % (0.0 - 2.0 %) 0.7 Nucleated RBC % (0.0 - 0.9 %) 0.0 Urines Urine Color (YELLOW) YELLOW Urine Appearance (CLEAR) HAZY Urine pH (5.0 - 9.0) 5.0 Ur Specific Lynx (1.001 - 1.030) 1.031 Urine Protein (NEGATIVE) NEGATIVE Urine Glucose (UA) (NEGATIVE) NEGATIVE Urine Ketones (NEGATIVE) NEGATIVE Urine Blood (NEGATIVE) NEGATIVE Urine Nitrite (NEGATIVE) NEGATIVE Urine Bilirubin (NEGATIVE) NEGATIVE Urine Urobilinogen (<=1.0) NEGATIVE Ur Leukocyte Esterase (NEGATIVE) NEGATIVE Urine RBC (0 - 5 /HPF) 0-5 Urine WBC (0 - 5 /HPF) 0-5 Ur Epithelial Cells (NONE - FEW /LPF) None Calcium Oxalate Crystal (NONE SEEN /HPF) MANY Urine Bacteria (NONE SEEN /HPF) None Hyaline Casts (0 - 1 /LPF) 0-1 Urine Mucus (NONE SEEN /LPF) 1+ Urine Ascorbic Acid NEGATIVE Microbiology: Date/Time Procedure - Status Source Growth 11/25 2206 Occult Blood - COMP STOOL Lab Statement Laboratory studies reviewed and considered in th e medical decision-making. Imaging Statement Radiographic studies reviewed and considered in the medical decision-making. Point of Care Testing Pulse Oximetry Pulse Ox % 98 On: Room air Interpretation Interpreted by me, Pulse oximetr y normal Time 2137 Re-Evaluation MDM Free Text MDM Notes Free Text MDM Notes History as noted. Patient here with rectal bleed ing. This is patient's second visit in the week for the same. He has a known h istory of ulcerative colitis. He did not respond to outpatient treatment with steroids and mesalamine. Secondary to this, will admit to inpatient unit for further work-up and treatment. Patient admitted to obs unit. Case di scussed with battery hand Dr. Parr. Case discussed with hospitalist Dr. Webster. Patient clinically stable at time of admission. All labs and imaging results independently reviewed and interpreted by myself . Reviewed previous emergency department records. Compared current hemoglobin to previous. Current hemoglobin is slightly less than prior. Social d eterminants of health include poor access to outpatient follow-up. ED Course Medication(s) Ordered Medication(s) Ordered: Central Nervous System Agents Sig/Dorcas Start time Last Medication Dose Route Stop Time Status Admin Morphine Sulfate 4 MG X1ED STA 11/25 2136 DC IV 11/25 Electrolytic, Caloric, And Hawk Sig/Dorcas Start time Last Medication Dose Route Stop Time Status Admin Sodium Chloride 1,000 ML .[id number] 11/255 AC 11/25 IV 12/26 2315 2348 Sodium Chloride 1,000 ML X1ED STA 11/26 2255 DC 11/25 IV 11/25 2256 2258 Gastrointestinal Drugs Sig/Dorcas Start time Last Medication Dose Route Stop Time Status Admin Ondansetron HCl 4 MG X1ED STA 11/25 2138 DC IV 11/25 Hormones And Synthetic Substit Sig/Dorcas Start time Last Medication Dose Route Stop Time Status Admin Methylprednisolone 125 MG X1ED STA 11/25 2304 D C 11/25 Sodium Succinate IV 11/25 2305 2348 Differential Diagnosis Differential Diagnosis Anal fissures, Angiodysplasia, Bleeding diathesis, Crohn' s disease, Gastroenteritis, GI Bleed, Hemorrhoid s, Ulcerative colitis MDM-Treatment/Evaluation ED Course as above Patient Discharge Departure Vital Signs/Condition Vital Signs First Documented: Result Date Time Pulse Ox 98 11/25 2137 B/P 150/100 11/25 2137 B/P Mean 116.9 11/25 2137 Temp 36.7 11/25 2137 Pulse 87 11/25 2137 Resp 20 11/25 2137 Last Documented: Result Date Time Pulse Ox 97 11/25 2257 B/P 126/85 11/25 2257 Temp 36.9 11/25 2257 Pulse 101 11/25 2257 Resp 11/25 B/P Mean 116.9 11/25 2137 All vital signs available at the time of this en try have been reviewed. Condition Stable, Improved Clinical Impression Clinical Impression Primary Impression: Exacerbation of ulcerative c olitis Secondary Impressions: Lower GI bleed Disposition Decision Admit Admit Physician Name DarinMccracken A MD Admit Physician Hospitalist Request Time 2302 Request Date 11/25/22 )( Admission Accepts Yes )( Accepted Time 2302 )( Accepted Date 11/25/22 Call Information will see patient, agrees with eval Discharge/Care Plan Counseled Regarding Diagnosis, Lab results, Need for admission Admit Note I have spoken with the patie nt and/or caregivers. I have explained the patient's condition, diagnoses and julián atment plan based on the information available to me at this time. I have answered the patient's and/ or caregiver's questions and addressed any concerns. The patient and/or careg kar have as good an understanding of the patient 's diagnosis, condition and treatment plan as can be expected at this point. The patient has been stabilized within the capability of the emergency department. The patient wi ll be transported for further care and management or will be moved to an observation or inpatient service. I have communicated with the staff or medical p ractitioner taking over this patient's care. at 0050 RPT #:[id number] END OF REPORT 2022-11-25 21:38:00-00:00 [facility] ([facility]) EMERGENCY PROVIDER REPORT REPORT#:[id number] REPORT STATUS: Signed DATE:11/25/22 TIME: 2137 PATIENT: ALEX BURROUGHS UNIT #: [id number] ROOM: [facility] BED: 1 AGE: 47 SEX: M PCP PHYS: No Primary or Family Ph ysician SERVICE AUTHOR: Jill Cardenas RNNP * ALL edits or amendments must be made on the [employer]/computer document * Provider in Triage - Adult Provider in Triage Initial Greet Date/Time 11/25/222130 Greet Note I have greeted and performed a focused rapid initial assessment of this patient. A comprehensive ED assessment and evaluation of the patient, analysis of all test results, and completion of the medical deci andrea-making process will be conducted by additional ED providers. Clinical Impression Text/Dict Impression Patient with history of ulcerative colit is presents with lower abdominal pain, rectal pain, bright red rectal bleeding, and pos sible rectal abscess. Free Text PIT Notes Free Text PIT Notes Further evaluation needed. PMH-Provider in Triage Stated Complaint RECTAL BLEEDING BRIGHT RED BLOO D Allergies Coded Allergies: No Known Allergies (11/21/22) Home Medications Active Scripts Methylprednisolone (Medrol 4 Mg Dosepak) 4 MG PO ASDIR Methylprednisolone (Medrol 4 Mg Dosepak) 4 MG P O ASDIR #1 PACKET Prov: 11/21/22 Additional Medical History Ulcerative Colitis Additional Surgical History Neg Alcohol Use Denies EtOH use Drug Use Denies recreational drugs Smoking status: Smoking status for patients 13 years old or old er: Never Smoker at 2139 at 0944 RPT #:[id number] END OF REPORT 2022-11-21 18:51:00-00:00 [facility] ([facility] EMERGENCY PROVIDER REPORT REPORT#:[id number] REPORT STATUS: Signed DATE:11/21/22 TIME: 1850 PATIENT: ALEX BURROUGHS UNIT #: [id number] ROOM: BED: AGE: 47 SEX: M PCP PHYS: No Primary or Family Ph ysician SERVICE AUTHOR: Dennis Bower II, Jr, MD * ALL edits or amendments must be made on the [employer]/computer document * HPI-Abd Pain M 40 and Over Free Text HPI Notes Free Text HPI Notes Patient is a 47-year-old male who presents to [facility] emergency department with lower abdominal pain and hematochezia. Patient h as a known history of ulcerative colitis. Patient states that he was o n steroids and doing well. He recently ran out of steroids and his sym ptoms returned. Patient has mesalamine at home, but wants to preserve it as it is very expensive. He denies fevers, chills, vomiting, or urinary symptoms. P atient has had intermittent nausea. He denies additional complaints at this time. General Confirmed Patient Yes Patient Type New patient Initial Greet Date/Time 11/21/22 142 Provider in Triage HPI Chief Complaint Abdominal pain, BLOOD IN STOOL PE General/Const No acute distress Respiratory/Chest No respiratory distress Presentation Chief Complaint Abdominal pain Hx Obtained From Patient Sudden in Onset? No Onset Occurred Today Symptom Duration Constant Progression since Onset Constant Location Abdomen lower Quality Aching, Painful Radiation No: Does not radiate. Migration/Movement None Severity: Onset Moderate Severity: Current Moderate Associated with Reports: Hematochezia. Exacerbated by Nothing Relieved by Nothing Risk-Abd Pain M 40 and Over )( Abdominal Aortic Aneurysm Risk factors review ed Review of Systems ROS Statements All systems rev neg except as marked. Past Medical History - Adult Stated Complaint PT STATES HE HAS NAUSEA, BLEEDI NG FROM RECTUS Allergies Coded Allergies: No Known Allergies (11/21/22) Additional Medical History Ulcerative Colitis Additional Surgical History Neg Additional Family History Reviewed and noncontributory Alcohol Use Denies EtOH use Drug Use Denies recreational drugs Smoking status for patients 13 years old or olde r: Never Smoker Physical Exam Vital Signs Vital Signs First Documented: Result Date Time Pulse Ox 98 11/21 142 B/P 133/86 11/21 142 B/P Mean 101.2 11/21 1422 Temp 36.6 11/21 1422 Pulse 79 11/21 1422 Resp 18 11/21 1422 Last Documented: Result Date Time Pulse Ox 97 11/22 1915 B/P 131/84 11/22 1915 B/P Mean 99.7 11/22 1915 Temp 36.9 11/22 1915 Pulse 64 11/22 1915 Resp 17 11/22 1915 Review of Vital Signs Reviewed Free Text PE Notes Free Text PE Notes Gen/Const: awake, alert, no acute distress, well appearing MS Head: normocephalic, atraumatic Neck: no midline ttp Eyes: PERRL b/l; EOM intact Ears/Nose/Throat: normal posterior oropharynx Resp/Chest: lungs CTAB; no wheezes, rales, rhonc hi, retractions Cardiovascular: rrr; no murm urs, gallops, or rubs; capillary refill less than 2 seconds Abdomen/GI: mild lower abdominal ttp without gua rding MS Upper Extremity: Atraumatic, no abnormalities noted MS Lower Extremity: Atraumatic; no clubbing, cya nosis, or edema MS Back: No midline tenderness palpation; no betzaida p-offs or deformities Skin: Normal color; no rash present; no petechia e or purpura : Deferred Rectum: Deferred Neurologic: Awake, alert, oriented x4; normal mo tor function/sensory function Psyhchiatric: Not suicidal/homicidal Interpretation Diagnostics Lab Results Interpretation Considerations Independ review imaging, Reviewed prior records Results Laboratory Tests 11/21/22 1511: [Embedded Image Not Available] Laboratory Tests: 11/21 11/21 1511 1529 Chemistry Sodium (135 - 145 mmol/L) 137 Potassium (3.6 - 5.0 mmol/L) 4.2 Chloride (101 - 111 mmol/L) 104 Carbon Dioxide (21 - 31 mmol/L) 26 BUN (6 - 20 mg/dl) 9 Creatinine (0.64 - 1.27 mg/dL) 0.93 Glomerular Filtr Rate (>60) >=60 max estimate Glucose (70 - 100 mg/dl) 128 H Calcium (8.5 - 10.5 mg/dL) 8.6 Total Bilirubin (0.2 - 1.3 mg/dL) 0.10 L Direct Bilirubin (0.00 - 0.20 mg/dL) 0.1 AST (10 - 42 U/L) 20 ALT (10 - 60 U/L) 17 Total Alk Phosphatase (42 - 121 U/L) 62 Total Protein (6.7 - 8.2 g/dL) 6.8 Albumin (3.2 - 5.5 g/dL) 3.4 Lipase (22 - 51 IU/L) 34 Hematology WBC (3.2 - 11.5 x10 3/uL) 7.5 RBC (4.20 - 5.70 x10(6)/m) 5.13 Hgb (12.9 - 17.3 g/dL) 13.0 Hct (38.7 - 51.0 %) 41.4 MCV (80 - 100 fL) 81 MCH (26.7 - 33.3 pg) 25.3 L MCHC (30.0 - 34.0 g/dL) 31.4 RDW (11.3 - 14.5 %) 15.5 H Plt Count (130 - 408 x10 3/uL) 326 MPV (8.6 - 12.6 fL) 10.3 Neut % (Auto) (40.0 - 70.0 %) 68.2 Lymph % (Auto) (20 - 40 %) 18.3 L [place]py % (Auto) (1 - 10 %) 9.5 Eos % (Auto) (0.0 - 5.0 %) 2.4 Baso % (Auto) (0.0 - 1.0 %) 1.2 H Neut # (Auto) (1.6 - 7.2 x10 3/uL) 5.1 Lymph # (Auto) (1.1 - 2.7 x10 3/uL) 1.36 [place] # (Auto) (0.3 - 0.8 x10 3/uL) 0.7 Eos # (Auto) (0.0 - 0.5 x10 3/uL) 0.2 Baso # (Auto) (0.0 - 0.1 x10 3/uL) 0.1 Immature Gran % (0.0 - 2.0 %) 0.4 Nucleated RBC % (0.0 - 0.9 %) 0.0 Urines Urine Color (YELLOW) YELLOW Urine Appearance (CLEAR) Clear Urine pH (5.0 - 9.0) 7.0 Ur Specific Lynx (1.001 - 1.030) 1.027 Urine Protein (NEGATIVE) NEGATIVE Urine Glucose (UA) (NEGATIVE) NEGATIVE Urine Ketones (NEGATIVE) NEGATIVE Urine Blood (NEGATIVE) NEGATIVE Urine Nitrite (NEGATIVE) NEGATIVE Urine Bilirubin (NEGATIVE) NEGATIVE Urine Urobilinogen (<=1.0) NEGATIVE Ur Leukocyte Esterase (NEGATIVE) NEGATIVE Urine RBC (0 - 5 /HPF) 0-5 Urine WBC (0 - 5 /HPF) 0-5 Ur Epithelial Cells (NONE - FEW /LPF) RARE Urine Bacteria (NONE SEEN /HPF) None Urine Mucus (NONE SEEN /LPF) 1+ Urine Ascorbic Acid NEGATIVE Recent Impressions: CAT SCAN - CT ABD PELVIS W/CONT 11/21 170 Report Impression - Status: SIGNED Entered: 11/21/2022 182 IMPRESSION: 1. Subtle wall thickening/enhancement of the col onic wall, which may reflect sequelae of colitis. No significant chaz colonic inflammation. 2. No obstructive uropathy or bowel obstruction. Normal appendix Impression By: [email or web address] - MAIA BONILLA MD Lab Statement Laboratory studies reviewed and considered in th e medical decision-making. Imaging Statement Radiographic studies reviewed and considered in the medical decision-making. Re-Evaluation MDM Free Text MDM Notes Free Text MDM Notes History as noted. Patient here with hematochezia . He has a history of ulcerative colitis. Patient has been responsive to steroids in the past. Will treat with steroids. Patient's hemoglobi n is normal. I advised that if patient continues to have bleeding o r bleeding increased that he should come back to the emergency department immediately. Patient is cli nically stable and otherwise well-appearing. He was comfortable with managing his current symptoms at home with his medications. Will discharge patient lakia e with referral to gastroenterology. Patient is clinically stable and otherwise well-appearing at time of discharge home. Social determina nts of health including poor access to outpatient care. )( Re-Evaluation/Progress #1 )( Re-Eval Status Improved ED Course Medication(s) Ordered Medication(s) Ordered: Central Nervous System Agents Sig/Dorcas Start time Last Medication Dose Route Stop Time Status Admin Morphine Sulfate 4 MG X1ED STA 11/21 1832 DC IV 11/21 183 Diagnostic Agents Sig/Dorcas Start time Last Medication Dose Route Stop Time Status Admin Iopamidol 0 .STK-MED ONE 11/21 1658 DC 11/21 IV 1704 Electrolytic, Caloric, And Hawk Sig/Dorcas Start time Last Medication Dose Route Stop Time Status Admin Sodium Chloride 1,000 ML X1ED STA 11/21 1423 DC 11/21 IV 11/21 1522 1521 Gastrointestinal Drugs Sig/Dorcas Start time Last Medication Dose Route Stop Time Status Admin Ondansetron HCl 4 MG X1ED PRN PRN 11/21 1430 DC 11/21 IV 11/22 1431 1521 Famotidine 20 MG X1ED STA 11/21 1423 AC 11/21 Sodium Chloride 10 ML IV 11/22 0222 1521 Hormones And Synthetic Substit Sig/Dorcas Start time Last Medication Dose Route Stop Time Status Admin Methylprednisolone 60 MG X1ED STA 11/21 1833 DC Sodium Succinate IV 11/21 1834 Patient Discharge Departure Vital Signs/Condition Vital Signs First Documented: Result Date Time Pulse Ox 98 11/21 1423 B/P 133/86 11/21 142 B/P Mean 101.2 11/21 1422 Temp 36.6 11/21 142 Pulse 79 11/21 1423 Resp 18 11/21 1423 Last Documented: Result Date Time Pulse Ox 97 11/22 1915 B/P 131/84 11/22 1915 B/P Mean 99.7 11/22 1915 Temp 36.9 11/22 1915 Pulse 64 11/21 191 Resp 11/21 All vital signs available at the time of this en try have been reviewed. Condition Stable, Improved Clinical Impression Clinical Impression Primary Impression: Ulcerative colitis Disposition Decision Discharge )( Discharged to Home Yes )( Time 1853 )( Date 11/21/22 Discharge/Care Plan Counseled Regarding Diagnosi s, Lab results, Imaging studies, Prescriptions, Need for follow-up, When to return to ED (Auto) Prescriptions Current Visit Scripts Methylprednisolone (Medrol 4 Mg Dosepak) 4 MG PO ASDIR Methylprednisolone (Medrol 4 Mg Dosepak) 4 MG P O ASDIR #1 PACKET Take as directed on package. Patient Instructions ED Ulcerative Colitis Referrals Provider Referral: Jeet Wu MD Follow-Up: 2-3 Days Notes: Return to ER immediately if symptoms change, wo rsen, or if you have any other concerns. Address: [facility] [address] [place] [address] Departure Forms [facility] PCP LIST Discharge Note I have spoken with the patie nt and/or caregivers. I have explained the patient's condition, diagnoses and julián atment plan based on the information available to me at this time. I have answered the patient's and/ or caregiver's questions and addressed any concerns. The patient and/or careg kar have as good an understanding of the patient 's diagnosis, condition and treatment plan as can be expected at this point. The vital signs have bee n stable. The patient's condition is stable and appr opriate for discharge from the emergency department. The patient will pursue further outpatient evalu ation with the primary care physician or other designated or consulting phys mckenzie as outlined in the discharge instructions. The patient and/or caregivers are agreeable to this plan of care and follow-up instructions have been exp lained in detail. The patient and/or caregivers have received these instructio ns in written format and have expressed an understanding of the discharge inst ructions. The patient and/or caregivers are aware that any significant change in condition or worsening of symptoms should prompt an immediate return to [facility] or the closest emergency department or a call to 1. at 0835 RPT #:[id number] END OF REPORT 2022-11-21 14:23:00-00:00 [facility] ([facility]) EMERGENCY PROVIDER REPORT REPORT#:[id number] REPORT STATUS: Signed DATE:11/21/22 TIME: 1422 PATIENT: ALEX BURROUGHS UNIT #: [id number] ROOM: BED: AGE: 47 SEX: M PCP PHYS: No Primary or Family Ph ysician SERVICE AUTHOR: Marvel Guzman * ALL edits or amendments must be made on the [employer]/computer document * Marvel Guzman 11/21/221422: Provider in Triage - Adult Provider in Triage Initial Greet Date/Time 11/21/221421 Greet Note I have greeted and performed a focused rapid initial assessment of this patient. A comprehensive ED assessment and evaluation of the patient, analysis of all test results, and completion of the medical deci andrea-making process will be conducted by additional ED providers. HPI Chief Complaint Abdominal pain, BLOOD IN STOOL PE General/Const No acute distress Respiratory/Chest No respiratory distress Free Text PIT Notes Free Text PIT Notes Further care required, care transferred to main ED PMH-Provider in Triage Stated Complaint PT STATES HE HAS NAUSEA, BLEEDI NG FROM RECTUS Allergies Coded Allergies: No Known Allergies (11/21/22) at 1425 Electronically Signed by Grecia Taylor MD on at 2113 RPT #:[id number] END OF REPORT 2019-05-23 06:41:00-00:00 [id number] [address] PATIENT NAME: ALEX BURROUGHS ADMIT DATE: 9 ACCOUNT NO: [id number] ROOM NO: AGE: 44 REPORT TYPE: ELECTROCARDIOGRAM SEX: M ADMITTING PHYSICIAN: ATTENDING PHYSICIAN: Order: [id number] Test Reason : Resting 12-lead ECG Test Date/Time Stamp: MonMay 23 2019 06:41:30 Blood Pressure : / mmHG Vent. Rate : 065 BPM Atrial Rate : 000 BPM P-R Int : 158 ms QRS Dur : 094 ms QT Int : 418 ms P-R-T Axes : 020 -24 017 degree s QTc Int : 429 ms SINUS RHYTHM BORDERLINE LEFT AXIS DEVIATION Confirmed by LAUREANO HANSEN MD ([id number]) on 05/07 11:37:39 AM Referred By: Doc No Confirmed by:LAUREANO HANSEN MD at 1137 PATIENT NAME ALEX BURROUGHS 2019-05-23 06:39:00-00:00 [facility] EMERGENCY PROVIDER REPORT REPORT#:[id number] REPORT STATUS: Signed DATE:05/23/19 TIME: 0639 PATIENT: ALEX BURROUGHS UNIT #: [id number] ROOM: BED: AGE: 44 SEX: M PCP PHYS: No Primary or Family Ph ysician SERVICE AUTHOR: Sky Grant * ALL edits or amendments must be made on the [employer]/computer document * HPI-Chest Pain 40 and Over General Confirmed Patient Yes Patient Type New patient Initial Greet Date/Time 05/23/19 0619 Presentation Chief Complaint Chest pain Hx Obtained From Patient Sudden in Onset? No Onset Occurred Chronic Symptom Duration Waxes and wanes Progression since Onset Intermittent Location Chest L Quality Sharp Radiation Does not radiate. )( Migration/Movement None Free Text HPI Notes Free Text HPI Notes 44 y/o male with no past med ical hx presents to the ED with chronic intermittent , left-sided chest pain starting 10 years ago. P t notes that the pain feels like a sharp pinch that last 2-3 minutes at a ti me. Pt notes lack of exercise the past few years when the CP returns. CP is associated with SOB on exertion. Portions of this section were scribed by Yanet Bose on 05/23/19 at 0755 Risk-Chest Pain 40 and Over Risk Stratification )( Coronary Artery Disease Risk factors reviewed , No risk factors )( Thoracic Aortic Dissection Risk factors revie wed, No risk factors )( Pulmonary Embolism Risk factors reviewed, No risk factors )( AMI-Aspirin Aspirin Last 24 Hrs Not indicated )( HEART for MACE )( HEART for MACE Response Value History Low index of suspicion 0 ECG Interpretation Normal ECG 0 Age Age under 45 0 Risk Factors for CAD No risk factors known 0 Troponin < or = to NL troponin 0 Total 0 Portions of this section were scribed by Yanet Bose on 05/23/19 at 0754 Review of Systems ROS Statements All systems rev neg except as marked. Focused Review of Systems Respiratory Reports: Shortness of breath. Denies: Cough, pro ductive. Cardiovascular Reports: Chest pain, Dyspnea on exertion. Portions of this section were scribed by Yanet Bose on 05/23/19 at 0646 Past Medical History - Adult Stated Complaint CHEST PAIN Allergies Coded Allergies: No Known Allergies (05/23/19) Pt reports no significant: Past medical history, Past surgical history, Family history Smoking status for patients 13 years old or olde r: Never Smoker Other Social History Local resident Portions of this section were scribed by Yanet Bose on 05/23/19 at 0646 Physical Exam Vital Signs Vital Signs First Documented: Result Date Time Pulse Ox 100 05/23 549 B/P 162/104 05/23 549 B/P Mean 123.6 05/23 549 Temp 36.5 05/23 549 Pulse 73 05/23 549 Resp 16 05/23 549 Last Documented: Result Date Time Pulse Ox 100 05/23 549 B/P 162/104 05/23 549 B/P Mean 123.6 05/23 549 Temp 36.5 05/23 549 Pulse 73 05/23 549 Resp 16 05/23 549 Review of Vital Signs Reviewed Focused PE General/Const General/Const Awake, Alert, No acute distress Eyes Eyes EOMI, Conjunctiva NL Resp/Chest Respiratory/Chest Breath sounds NL, Breath soun ds = bilat, No respiratory distress Cardiovascular Cardiovascular Heart rate NL, Regular rhythm, H eart sounds NL Abdomen/GI Abdomen/GI Soft, Non-tender, BS normoactive, No distention MS Back Back Inspection NL, Non-tender MS Lower Extrem Lower Ext/Pelvis/MS No swelling, Non-tender Skin Skin Color NL, No rash, Warm, Dry Neurologic Neurologic Oriented X3, Speech NL, No motor def icits, No sensory deficits Psychiatric Psychiatric Affect NL, Mood NL Additional PE Ears/Nose/Throat Ears/Nose/Throat Airway patent, Mucous membrane s moist Lymphatic Lymphatic No gross adenopathy, No cervical guillermina opathy MS Upper Extrem Upper Extremity/MS No swelling, Non-tender Portions of this section were scribed by Yanet Bose on 05/23/19 at 0747 Interpretation Diagnostics Lab Results Interpretation Results Laboratory Tests 05/23/19 0630: [Embedded Image Not Available] Laboratory Tests: 05/23 0630 Chemistry Sodium (135 - 145 mmol/L) 137 Potassium (3.6 - 5.0 mmol/L) 3.9 Chloride (101 - 111 mmol/L) 104 Carbon Dioxide (21 - 31 mmol/L) 26 BUN (6 - 20 mg/dl) 9 Creatinine (0.64 - 1.27 mg/dL) 0.91 Glomerular Filtr Rate (>60) >=60 max estimate Glucose (70 - 100 mg/dl) 115 H Calcium (8.5 - 10.5 mg/dL) 8.8 Troponin I (0.000 - 0.034 ng/mL) <0.020 Hematology WBC (3.2 - 11.5 x10 3/uL) 6.7 RBC (4.20 - 5.70 x10(6)/m) 4.97 Hgb (12.9 - 17.3 g/dL) 14.6 Hct (38.7 - 51.0 %) 43.8 MCV (80 - 100 fL) 88 MCH (26.7 - 33.3 pg) 29.5 MCHC (30.0 - 34.0 g/dL) 33.5 RDW (11.3 - 14.5 %) 13.8 Plt Count (130 - 408 x10 3/uL) 221 MPV (6.4 - 10.5 fl) 8.7 Neut % (Auto) (40.0 - 70.0 %) 49.8 Lymph % (Auto) (20 - 40 %) 30.7 [place] % (Auto) (1 - 10 %) 10.8 H Eos % (Auto) (1.0 - 5.0 %) 7.1 H Baso % (Auto) (0.0 - 1.0 %) 1.6 H Neut # (Auto) (1.6 - 7.2 x10 3/uL) 3.4 Lymph # (Auto) (1.1 - 2.7 x10 3/uL) 2.10 [place] # (Auto) (0.3 - 0.8 x10 3/uL) 0.7 Eos # (Auto) (0.0 - 0.5 x10 3/uL) 0.5 Baso # (Auto) (0.0 - 0.1 x10 3/uL) 0.1 Lab Imaging Statement Laboratory radiographic studies reviewed and con sidered in the medical decision-making. Point of Care Testing Pulse Oximetry Pulse Ox % 100 On: Room air Interpretation Interpreted by me, Pulse oximetr y normal Time 0549 ECG #1 Interpretation ECG Documented in MUSE Yes Date 05/23/19 Time 0641 Interpreted by ED physician NL ECG Interpretation Normal rate, Normal sinus rhythm, No STEMI, Normal intervals Rate 65 Conduction/[place] Left axis deviation Portions of this section were scribed by Yanet Bose on 05/23/19 at 0754 Re-Evaluation MDM Re-Evaluation/Progress #1 Text/Dict Note Patient chest pain has impro edmond. Physician reviewed labs and imaging, discussed results with patient. Ellen bejarano discussed need for pt to follow up with PCP for chronic CP for better management of pain. HR is less than 100bpm at time of discharge. Time of Re-Eval 0742 Re-Eval Status Improved Portions of this section were scribed by Yanet Bose on 05/23/19 at 0748 Patient Discharge Departure Vital Signs/Condition Vital Signs First Documented: Result Date Time Pulse Ox 100 05/23 549 B/P 162/104 05/23 549 B/P Mean 123.6 05/23 549 Temp 36.5 05/23 549 Pulse 73 05/23 549 Resp 16 05/23 549 Last Documented: Result Date Time Pulse Ox 100 05/23 0549 B/P 162/104 05/23 0549 B/P Mean 123.6 05/23 549 Temp 36.5 05/23 549 Pulse 73 05/23 549 Resp 16 05/23 549 All vital signs available at the time of this en try have been reviewed. Condition Improved, Stable Clinical Impression Clinical Impression Primary Impression: Chest pain Disposition Decision Discharge )( Discharged to Home Yes )( Time 0747 )( Date 05/23/19 Discharge/Care Plan Counseled Regarding Diagnosi s, Lab results, Imaging studies, Need for follow-up, When to return to ED Discharge Note I have spoken with the patie nt and/or caregivers. I have explained the patient's condition, diagnoses and julián atment plan based on the information available to me at this time. I have answered the patient's and/ or caregiver's questions and addressed any concerns. The patient and/or careg kar have as good an understanding of the patient 's diagnosis, condition and treatment plan as can be expected at this point. The vital signs have bee n stable. The patient's condition is stable and appr opriate for discharge from the emergency department. The patient will pursue further outpatient evalu ation with the primary care physician or other designated or consulting phys ician as outlined in the discharge instructions. The patient and/or caregivers are agreeable to this plan of care and follow-up instructions have been exp lained in detail. The patient and/or caregivers have received these instructio ns in written format and have expressed an understanding of the discharge inst ructions. The patient and/or caregivers are aware that any significant change in condition or worsening of symptoms should prompt an immediate return to [facility] or the closest emergency department or a call to [facility]. Supervising Physician Note Scribe Statement Yanet Bose, 05/23/19 0750, scribing for and in the presence of [Sky Grant MD]. Signed By: Yanet Bose, 05/23/19 0750 Provider Scribed Statement I personally performed the s ervices described in this documentation and reviewed the documentation that was dictated to the scrib e(s) in my presence, and it accurately records my words and actions. Sky marcus MD 05/23/19 Portions of this section were scribed by Yanet Bose on 05/23/19 at 0754 at 1316 RPT #:[id number] END OF REPORT 2019-05-23 05:55:00-00:00 [id number] [address] PATIENT NAME: ALEX BURROUGHS ADMIT DATE: 05/23/19 ACCOUNT NO: [id number] ROOM NO: AGE: 44 REPORT TYPE: ELECTROCARDIOGRAM SEX: M ADMITTING PHYSICIAN: ATTENDING PHYSICIAN: Order: [id number] Test Reason : Resting 12-lead ECG Test Date/Time Stamp: MonMay 23 2019 05:55:13 Blood Pressure : / mmHG Vent. Rate : 063 BPM Atrial Rate : 000 BPM P-R Int : 152 ms QRS Dur : 089 ms QT Int : 413 ms P-R-T Axes : 013 -23 018 degree s QTc Int : 421 ms SINUS RHYTHM BORDERLINE LEFT AXIS DEVIATION Confirmed by JADE REN, LAUREANO Torres ([id number]) on 05/07 11:37:37 AM Referred By: Jurgen No Confirmed by:LAUREANO HANSEN MD at 1138 PATIENT NAME LAEX BURROUGHS 00
[2023-02-15] MEDS ORDERED: DICYCLOMINE HCL 10 MG CAP ONE (22:45)
[2023-02-15 23:22] LABS: Absolute Lymphocytes (CBC) 2.2 K/uL (0.7-4.9); Hematocrit 38.8 % (39.6-49.0); Lymphocytes % 23.5 % (15.3-44.8); MCV 79.4 fL (80-100); MPV 8.8 fL (7.6-11.3); RBC Red Blood Cell Count 4.89 M/uL (4.33-5.43)
[2023-02-15] MEDS ORDERED: METHYLPREDNISOLONE 125 MG INJ ONE (23:30)
[2023-02-15] MEDS ORDERED: MORPHINE 4 MG/ML SYR ONE (23:31)
[2023-02-15 23:35] LABS: Albumin 3.4 g/dL (3.4-5.0); Bilirubin Total 0.3 mg/dL (0.2-1.0); Potassium 3.3 mEq/L (3.5-5.1)
--- NOTE | 2023-02-16 00:58 | ER ---
Nurse's Notes [facility] Name: Wicho Weeks Age: 47 yrs Sex: Male : 1975 Arrival Date: 02/15/2023 Time: 20:18 Bed 19 Private MD: Diagnosis: Colitis Presentation: 02/15 20:37 Chief complaint: Patient states: rectal bleeding, rectal pain and abdominal pain X2 lg3 days. hx of collitis. used to take methylprednisolone and it really helps but im out. Coronavirus screen: Client denies travel out of the [place] in the last 14 days. At this time, the client does not indicate any symptoms associated with coronavirus-19. Ebola Screen: No symptoms or risks identified at this time. Initial Sepsis Screen: Does the patient meet any 2 criteria? No. Patient's initial sepsis screen is negative. Does the patient have a suspected source of infection? No. Patient's initial sepsis screen is negative. Risk Assessment: Do you want to hurt yourself or someone else? Patient reports no desire to harm self or others. Onset of symptoms was February 13, 2023. 20:37 Method Of Arrival: Ambulatory lg3 20:37 Acuity: DRE 3 lg3 Triage Assessment: 20:39 General: Appears in no apparent distress. comfortable, Behavior is calm, cooperative. lg3 Pain: Complains of pain in abdomen. EENT: No deficits noted. No signs and/or symptoms were reported regarding the EENT system. Neuro: No deficits noted. Clemons Agitation-Sedation Scale (RASS): 0 - Alert and Calm Level of Consciousness is awake, alert, obeys commands, Oriented to person, place, time, situation. Cardiovascular: No deficits noted. Denies chest pain, shortness of breath, Capillary refill < 3 seconds Clubbing of nail beds is absent JVD is absent Patient's skin is warm and dry. Respiratory: No deficits noted. Airway is patent Respiratory effort is even, unlabored, Respiratory pattern is regular, symmetrical. GI: No deficits noted. Abdomen is round non-distended, obese, Reports lower abdominal pain, upper abdominal pain, cramping, rectal bleeding. : No deficits noted. No signs and/or symptoms were reported regarding the genitourinary system. Derm: No deficits noted. No signs and/or symptoms reported regarding the dermatologic system. Skin is intact, is healthy with good turgor, Skin is dry, Skin is normal, Skin temperature is warm. Musculoskeletal: No deficits noted. No signs and/or symptoms reported regarding the musculoskeletal system. Circulation, motion, and sensation intact. Range of motion: intact in all extremities. Historical: - Allergies: 20:39 No Known Allergies; lg3 - Home Meds: 20:39 None [Active]; lg3 - PMHx: 20:39 Chronic Abdominal Pain; Colitis; GI Bleed; lg3 - PSHx: 20:39 Rectal abscess removal; lg3 - Immunization history:: Adult Immunizations up to date, Client reports having NOT received the Covid vaccine. - Social history:: Smoking status: Reported history of juuling and/or vaping. Patient uses alcohol, on a daily basis. admits to "couple of beers" a day. Patient/guardian denies using street drugs. Screenin:12 [facility] ED Fall Risk Assessment (Adult) History of falling in the last 3 months, lg3 including since admission No falls in past 3 months (0 pts). Abuse screen: Denies threats or abuse. Denies injuries from another. Nutritional screening: No deficits noted. Tuberculosis screening: No symptoms or risk factors identified. Assessment: 22:11 General: see triage assessment. lg3 22:11 Reassessment: Patient appears in no apparent distress at this time. No changes from lg3 previously documented assessment. Patient and/or family updated on plan of care and expected duration. Pain level reassessed. Patient is alert, oriented x 3, equal unlabored respirations, skin warm/dry/pink. 23:23 Reassessment: Patient appears in no apparent distress at this time. No changes from lg3 previously documented assessment. Patient and/or family updated on plan of care and expected duration. Pain level reassessed. Patient is alert, oriented x 3, equal unlabored respirations, skin warm/dry/pink. Patient states symptoms have not improved. Pain: Complains of pain in abdomen Pain currently is 9 out of 10 on a pain scale. 02/16 00:35 Reassessment: Patient appears in no apparent distress at this time. No changes from lg3 previously documented assessment. Patient and/or family updated on plan of care and expected duration. Pain level reassessed. Patient is alert, oriented x 3, equal unlabored respirations, skin warm/dry/pink. Patient states symptoms have improved. 01:25 Reassessment: Patient appears in no apparent distress at this time. No changes from lg3 previously documented assessment. Patient and/or family updated on plan of care and expected duration. Pain level reassessed. Patient is alert, oriented x 3, equal unlabored respirations, skin warm/dry/pink. Patient states feeling better. Patient states symptoms have improved. Vital Signs: 02/15 20:37 BP 131 / 96; Pulse 81; Resp 19 S; Temp 98.9(O); Pulse Ox 99% on R/A; Weight 95.25 kg lg3 (R); Height 5 ft. 9 in. (R); 23:37 BP 141 / 92; Pulse 74; Resp 18 S; Pulse Ox 99% on R/A; lg3 02/16 01:25 BP 147 / 91; Pulse 77; Resp 17 S; Pulse Ox 99% on R/A; lg3 02/15 20:37 Body Mass Index 31.01 (95.25 kg, 175.26 cm) lg3 ED Course: 02/15 20:20 Patient arrived in ED. ja2 20:28 Jhony Marquez PA is PHCP. m 20:28 Alvarez Carlos MD is Attending Physician. [facility] 20:39 Triage completed. lg3 20:39 Arm band placed on right wrist. lg3 21:52 Consuelo Cast, RN is Primary Nurse. lg3 22:11 Missed attempt(s): 22 gauge in right antecubital area. Bleeding controlled, band aid lg3 applied, catheter tip intact. 22:12 Patient has correct armband on for positive identification. Placed in gown. Bed in low lg3 position. Call light in reach. Side rails up X 1. Client placed on continuous cardiac and pulse oximetry monitoring. NIBP monitoring applied. quality assurance monitor final on. Door closed. Noise minimized. Warm blanket given. 22:12 Missed attempt(s): 22 gauge in left forearm. Bleeding controlled, band aid applied, lg3 catheter tip intact. 22:40 Inserted saline lock: 24 gauge in left hand, using aseptic technique. Blood collected. lg3 23:00 CBC with Diff Sent. lg3 23:00 CMP Sent. lg3 23:00 Lipase Sent. lg3 02/16 00:08 CT Abd/Pelvis - IV Contrast Only In Process Unspecified. EDMS 00:57 Jose Schilling MD is Referral Physician. aide 01:25 No provider procedures requiring assistance completed. IV discontinued, intact, lg3 bleeding controlled, No redness/swelling at site. Pressure dressing applied. Administered Medications: 02/15 22:38 Drug: Dicyclomine PO 20 mg Route: PO; lg3 23:37 Follow up: Response: No adverse reaction lg3 23:37 Drug: morphine IVP or IV 4 mg Route: IVP; Infused Over: 4 mins; Site: left hand; lg3 02/16 01:20 Follow up: Response: No adverse reaction; Marked relief of symptoms lg3 02/15 23:37 Drug: MethylPrednisoLONE IVP 125 mg Route: IVP; Site: left hand; lg3 02/16 01:20 Follow up: Response: No adverse reaction lg3 01:20 Drug: Ciprofloxacin PO 500 mg Route: PO; lg3 01:24 Follow up: Response: No adverse reaction lg3 01:20 Drug: metroNIDAZOLE PO 500 mg Route: PO; lg3 01:24 Follow up: Response: No adverse reaction lg3 Medication: 01:25 VIS not applicable for this client. lg3 Outcome: 00:57 Discharge ordered by MD. aide 01:25 Discharged to home ambulatory. lg3 01:25 Condition: stable 01:25 Discharge instructions given to patient, Instructed on discharge instructions, follow up and referral plans. medication usage, Demonstrated understanding of instructions, follow-up care, medications, Prescriptions given X 3. 01:26 Patient left the ED. lg3 Signatures: Dispatcher [employer] EDMS Jhony Marquez PA PA jmm Gibson, Lacie, RN RN lg3 Yanet Espana
--- NOTE | 2023-02-16 00:58 | EDPHYS ---
Physician Documentation [facility] Name: Wicho Weeks Age: 47 yrs Sex: Male : 1975 Arrival Date: 02/15/2023 Time: 20:18 Bed 19 Private MD: ED Physician Alvarez Carlos HPI: 02/15 20:43 This 47 yrs old Male presents to ER via Ambulatory with complaints of jmm Abdominal Pain, Rectal Bleeding. 20:43 The patient presents with abdominal pain. Onset: The symptoms/episode began/occurred jmm gradually, 2 day(s) ago. Is a 47-year-old male with history of ulcerative colitis who presents emerged department with complaints of rectal bleeding he attributes to his ulcerative colitis. Patient states that has taken mesalamine without relief. Patient states he normally needs steroids at this point.. Historical: - Allergies: 20:39 No Known Allergies; lg3 - Home Meds: 20:39 None [Active]; lg3 - PMHx: 20:39 Chronic Abdominal Pain; Colitis; GI Bleed; lg3 - PSHx: 20:39 Rectal abscess removal; lg3 - Immunization history:: Adult Immunizations up to date, Client reports having NOT received the Covid vaccine. - Social history:: Smoking status: Reported history of juuling and/or vaping. Patient uses alcohol, on a daily basis. admits to "couple of beers" a day. Patient/guardian denies using street drugs. ROS: 20:43 Constitutional: Negative for fever, chills, and weight loss, Cardiovascular: Negative jmm for chest pain, palpitations, and edema, Respiratory: Negative for shortness of breath, cough, wheezing, and pleuritic chest pain. 20:43 Abdomen/GI: Positive for abdominal pain. 20:43 All other systems are negative. Exam: 20:43 Constitutional: This is a well developed, well nourished patient who is awake, alert, jmm and in no acute distress. Head/Face: atraumatic. Eyes: EOMI, no conjunctival erythema appreciated ENT: Moist Mucus Membranes Neck: Trachea midline, Supple Chest/axilla: Normal chest wall appearance and motion. Cardiovascular: Regular rate and rhythm. No edema appreciated Respiratory: Normal respirations, no respiratory distress appreciated 20:43 Back: Normal ROM Skin: General appearance color normal MS/ Extremity: Moves all extremities, no obvious deformities appreciated, no edema noted to the lower extremities Neuro: Awake and alert Psych: Behavior is normal, Mood is normal, Patient is cooperative and pleasant 20:43 Abdomen/GI: Inspection: abdomen appears normal, Bowel sounds: normal, Palpation: soft, mild abdominal tenderness, in the right lower quadrant and left lower quadrant. Vital Signs: 20:37 BP 131 / 96; Pulse 81; Resp 19 S; Temp 98.9(O); Pulse Ox 99% on R/A; Weight 95.25 kg lg3 (R); Height 5 ft. 9 in. (R); 23:37 BP 141 / 92; Pulse 74; Resp 18 S; Pulse Ox 99% on R/A; 3 02/16 01:25 BP 147 / 91; Pulse 77; Resp 17 S; Pulse Ox 99% on R/A; 3 02/15 20:37 Body Mass Index 31.01 (95.25 kg, 175.26 cm) [facility] MDM: 02/15 20:43 Patient medically screened. [facility] 02/16 00:56 Differential diagnosis: Colitis, ulcerative colitis, diverticulitis, lower GI bleed. [facility] Data reviewed: vital signs, nurses notes, lab test result(s). Consideration of Admission/Observation Escalation of care including admission/observation considered. I considered the following discharge prescriptions or medication management in the emergency department Medications were administered in the Emergency Department. See MAR. Counseling: I had a detailed discussion with the patient and/or guardian regarding: the historical points, exam findings, and any diagnostic results supporting the discharge/admit diagnosis, lab results, radiology results, the need for outpatient follow up, to return to the emergency department if symptoms worsen or persist or if there are any questions or concerns that arise at home. ED course: Patient is alert nontoxic in appearance in the ED. Will treat with steroids and oral antibiotics. Advised to follow with gastroenterology for further evaluation. Patient understood agrees plan of care. 02/15 20:43 Order name: CBC with Diff; Complete Time: 23:26 [facility] 02/15 20:43 Order name: CMP; Complete Time: 23:37 [facility] 02/15 20:43 Order name: Lipase; Complete Time: 23:37 [facility] 02/15 20:43 Order name: CT Abd/Pelvis - IV Contrast Only [facility] 02/15 20:43 Order name: IV Saline Lock; Complete Time: 23:00 [facility] 02/15 20:43 Order name: Labs collected and sent; Complete Time: 23:00 [facility] Administered Medications: 02/15 22:38 Drug: Dicyclomine PO 20 mg Route: PO; lg3 23:37 Follow up: Response: No adverse reaction lg3 23:37 Drug: morphine IVP or IV 4 mg Route: IVP; Infused Over: 4 mins; Site: left hand; 3 02/16 01:20 Follow up: Response: No adverse reaction; Marked relief of symptoms 3 02/15 23:37 Drug: MethylPrednisoLONE IVP 125 mg Route: IVP; Site: left hand; 3 02/16 01:20 Follow up: Response: No adverse reaction lg3 01:20 Drug: Ciprofloxacin PO 500 mg Route: PO; lg3 01:24 Follow up: Response: No adverse reaction lg3 01:20 Drug: metroNIDAZOLE PO 500 mg Route: PO; lg3 01:24 Follow up: Response: No adverse reaction lg3 Disposition: 07:07 Co-signature as Attending Physician, Alvarez Carlos MD I agree with the assessment sp4 and plan of care. I reviewed the patient's care provided by the Advanced Practice Provider and agree with the diagnosis and treatment plan. Disposition Summary: 02/16/23 00:57 Discharge Ordered Location: Home [facility] Condition: Stable [facility] Diagnosis - Colitis [facility] Followup: [facility] - With: Jose Schilling MD - When: 2 - 3 days - Reason: Recheck today's complaints, Continuance of care, Re-evaluation by your physician Discharge Instructions: - Discharge Summary Sheet [facility] - Colitis [facility] Forms: - Medication Reconciliation Form [facility] - Thank You Letter [facility] - Antibiotic Education [facility] - Prescription Opioid Use [facility] - Patient Portal [email or web address].htm [facility] Prescriptions: - Cipro 500 mg Oral Tablet - take 1 tablet by ORAL route every 12 hours for 10 days; 20 tablet; Refills: 0, [facility] Product Selection Permitted - Flagyl 500 mg Oral Tablet - take 1 tablet by ORAL route every 6 hours for 10 days; 40 tablet; Refills: 0, [facility] Product Selection Permitted - Prednisone 20 mg Oral Tablet - take 3 tablets by ORAL route once daily For 12 days Please take 3 tablets by [facility] mouth daily for 3 days, then take 2 tabs by mouth daily for 3 days, then take 1 tab by mouth daily for 3 days, then take one half tab daily for 3 days; 20 tablet; Refills: 0, Product Selection Permitted Signatures: Dispatcher [employer] Jhony Gupta PA PA jmm Gibson, Lacie, RN RN lg3 Alvarez Carlos MD MD sp4
[2023-02-16] MEDS ORDERED: metroNIDAZOLE 500 MG TABLET ONE (01:27)
[2023-02-16] MEDS ORDERED: CIPROFLOXACIN HCL 500 MG TAB ONE (01:28)
[2023-02-16 03:17] VITALS: TEMP 98.9; O2SAT 99
[2023-02-16 03:34] VITALS: BP 147/91
--- NOTE | 2023-02-16 13:39 | RAD REPORT ---
EXAM DESCRIPTION: CT - Abdomen Pelvis W Contrast - 02/16/2023 4:26 am CLINICAL HISTORY: The patient is 47 years old and is Male; abdominal pain, rectal bleeding TECHNIQUE: Axial computed tomography images of the abdomen and pelvis with intravenous contrast. S agittal and coronal reformatted images were created and reviewed. This CT exam was performed using one or more of the following dose reduction techniques: automated exposure control, adjustment of t he mA and/or kV according to patient size, and/or use of iterative reconstruction technique. COMPARISON: No relevant prior studies available. FINDINGS: Lung bases: Unremarkable. No mass. No consolidation. ABDOMEN: Liver: Unremarkable. No mass. Gallbladder and bile ducts: Unremarkable. No calcified stones. No ductal dilation. Pancreas: Unremarkable. No mass. No ductal dilation. Spleen: Unremarkable. No splenomegaly. Adrenals: Unremarkable. No mass. Kidneys and ureters: Unremarkable. No solid mass. No hydronephrosis. Stomach and bowel: Mucosal thickening involving the rectum and sigmoid colon suggestive of procto colitis. No obstruction. PELVIS: Appendix: No findings to suggest acute appendicitis. Bladder: Unremarkable. Reproductive: Unremarkable as visualized. ABDOMEN and PELVIS: Intraperitoneal space: Unremarkable. No free air. No significant fluid collection. Bones/joints: No acute fracture. No dislocation. Soft tissues: Unremarkable. Vasculature: Unremarkable. No abdominal aortic aneurysm. Lymph nodes: Unremarkable. No enlarged lymph nodes. IMPRESSION: Mucosal thickening involving the rectum and sigmoid colon suggestive of proctocolitis. Electronically signed by: Sergio Christianson MD 02/16/2023 12:47 AM CDT Due to temporary technical issues with the PACS/Fluency reporting system, reports are being signed by the in house radiologists without review as a courtesy to insure prompt reporting. The interpreting radiologist is fully responsible for the content of the report.
== END 2023-02-16 01:26 | disposition home or self-care (01) ==
LOC: ER 20:18
DX: K52.9 Noninfective gastroenteritis and colitis, unspecified (principal)
CPT/HCPCS: 36415; 74177; 80053; 83690; 85025; 96374; 96375; 99285; J2930; Q9967

== ENCOUNTER 2023-03-06 20:20 | Emergency (ER) | payer SELFPAY ==
--- OUTSIDE RECORDS SUMMARY | 2023-03-06 20:38 | XMS REPORT | Continuity of Care Document ---
:1975 Author Organization [facility] [place] [facility] t Address [address] [facility]. [address] [place] [address] Care Team Providers Name Role Phone ARYMUNDO TYE RAMIREZ Primary Care Physician Unavailable ANA PEACOCK Attending Clinician Unavailable Donna Iraheta Attending Clinician Unavailable Laureano Webster Attending Clinician Unavailable Dennis Bower II Attending Clinician Unavailable ELLI HARLEY Attending Clinician Unavailable Elli Harley DO Attending Clinician JUSTIN BAPTISTE Attending Clinician Unavailable Justin Baptiste MD Attending Clinician Doctor Unassigned, [place] Attending Clinician Unavailable RAYRAY WILLARD Attending Clinician [...] Univers stools stools 0-05 ity of 00:00: [address] Obesity Obesity Disease Active 2021-08 Univers (BMI (BMI 0-05 ity of 30-39.9) 30-39.9) 00:00: [address] Proctocoli Proctocoli Disease Active U nivers tis tis 9-21 ity of 00:00: [address] Allergies, Adverse Reactions, Alerts Allergy Allergy Status Severity Reaction(s) Onset Inactive Treating Comm ents Source Name Type Date Date Clinician No Known DA Active U [facility]ie 4-17 [place] [facility] 00:[facility]: [facility] 00 are [facility] No Known DA Active U 2018-08 [facility] Allergie 0-17 [place] 00:[facility]: [facility] 00 are [facility] NO KNOWN Drug Active Univers ALLERGIE Class ity of S [facility] Social History Social Habit Start Date Stop Date Quantity Comments Source History of Passive smoker University of tobacco use [facility] Exposure to 2022-08-14 2022-08-24 Not sure University SARS-CoV-2 00:00:00 14:04:00 [facility] (event) Post Alcohol intake 2022-08-24 2022-08-24 Ex-drinker [facility] 00:00:00 00:00:00 (finding) [facility] Education 2022-05-11 2022-05-11 [facility] 00:0000 00:00:00 [facility] Tobacco use and 2022-04-27 2022-04-27 Smokeless tobacco Un iversity of exposure 00:00:00 00:00:00 non-user [facility] [birth year] [facility] Smoking Status Start Date Stop Date Source Ex-smoker 2022-04-27 00:00:00 2022-04-27 00:00:00 [facility] Medications Ordered Filled Start Stop Current Ordering Indication Dosage Frequency Signature Comments Components Source Medication Medication Date Date Medication? Clinician (SIG) Name Name ketorolac 2022- No 15mg 15 mg, Unive rs (TORADOL) 08-25 Slow IV ity of injection 01:15: 00:23 Push, [place] 15 mg 00 :00 ONCE, 1 Medical dose, On Branch 08/24/22 at 1915, JANNA iopamidol 2022- No [id number] 105mL 105 mL, Univers (ISOVUE 08-25 Intravenou [...] Branch 08/24/22 at 1700, JANNA ondansetron Yes [id number] 4mg Take 1 Univers 4 mg 1-18 tablet by ity of disintegrat 00:00: mouth [place] ing tablet 00 every 8 Medica l (eight) Branch hours as needed for Nausea and Vomiting (N/V). dicyclomine Yes [id number] 20mg Take 1 Univers 20 mg 1-18 [...] at 2230, 1 mL predniSONE 2021-08 Yes [id number] Take 1 po Univers 20 mg - tid x 2 ity of tablet 00:00: days, then 00 take 1 po Medical bid x 3 Branch days, then take 1 po daily x 5 days. predniSONE 2021-08 Yes [id number] Take 1 po Univers 20 mg - tid x 2 ity of tablet 00:00: days, then [place] 00 take 1 po Medical bid x 3 Branch days, then take 1 po daily x 5 days. famotidine 2021-08- No [id number] 20mg Take 1 Univers (PEPCID) 20 - 12-12 tablet by it y of mg tablet 00:00: 05:59 mouth in [place] 00 :00 the Medical morning Branch and 1 tablet in the evening. Do all this for 15 days. predniSONE 2021-08- No [id number] Take 1 po Univers 20 mg -02 07- tid x 2 ity of tablet 00:00: 00:00 [place] 1 po bid x Medical 3 days, Branch then 1 po daily x 5 days famotidine 2021-08- No [id number] 20mg Take 1 Univers (PEPCID) 20 09-01 tablet by it y of mg tablet 00:00: 00:00 mouth in [place] 00 :00 the Medical morning Branch and 1 tablet in the evening. Do all this for 15 days. predniSONE 2021-08- No [id number] Take 3 Univers 5 mg tablet 08-22-08 tablets by i ty of 00:00: 05:59 mouth [place] 00 :00 daily for Medical 7 days, Branch THEN 2 tablets daily for 7 days, THEN 1 tablet daily for 7 days. predniSONE 2021-08- No [id number] Take 3 Univers 5 mg tablet 08-22-08 tablets by i ty of 00:00: 05:59 mouth [place] 00 :00 daily for Medical 7 days, Branch THEN 2 tablets daily for 7 days, THEN 1 tablet daily for 7 days. predniSONE 2021-08- No [id number] Take 3 Univers 5 mg tablet 16 12-08 tablets by i ty of 00:00: 05:59 mouth [place] 00 :00 daily for Medical 7 days, Branch THEN 2 tablets daily for 7 days, THEN 1 tablet daily for 7 days. lactobacill 2021-08- No [id number] .5mg Take 1 Univers 0-12 02-10 tablet by ity of acidophilus 00:00: 05:59 [place] 00 :00 [facility] for 120 days. lactobacill 2021-08- No [id number] .5mg Take 1 Univers us 0-12 02-10 tablet by ity of acidophilus 00:00: 05:59 mouth [place] 00 :00 the [facility] for 120 days. lactobacill 2021-08- No [id number] .5mg Take 1 Univers us 0-12 02-10 tablet by ity of acidophilus 00:00: 05:59 mouth [place] 00 :00 the [facility] for 120 days. lactobacill 2021-08- No [id number] .5mg Take 1 Univers us 0-12 02-10 tablet by ity of acidophilus 00:00: 05:59 mouth [place] 00 :00 the [facility] for 120 days. predniSONE 2021-08- No [id number] Take 6 Univers 10 mg 0-12 11-17 [...] [place] mg 00 First dose Medical on [facility] 05/17/22 at 0900, Until Discontinu ed, Routine methylPREDN 2021-08 Yes 20mg 20 mg, Univ ers ISolone sod 0-08 Intravenou it y of succ 14:30: s, Q8H, [place] (SOLU-MEDRO 00 First dose Me dical L (PF)) on [facility] Branch injection 05/14/22 at 20 mg 0930, Until Discontinu ed, Routine methylPREDN 2021-08- No 20mg 20 mg, Uni vers ISolone sod 0-08 10-11 Intravenou i ty of succ 14:30: 13:41 s, Q8H, [place] (SOLU-MEDRO 00 :53 First dose Me dical L (PF)) on [facility] Branch injection 05/14/22 at 20 mg [...] on Mon Medical packet 1 05/11/22 at [facility] h Packet 2145, Until Discontinu [...] days diphenhydrA 2021-08 Yes 25mg 25 mg, [facility] ers MINE 0-06 Intravenou ity of (BENADRYL) [...] Mon05/11/22 at 1430, STAT iopamidol 2021-08- No [id number] 75mL 75 mL, Univers (ISOVUE 0-04 10-04 Intravenou ity o f 370-500 mL) 03:45: 03:45 s, ONCE, 1 [place] injection 00 :00 dose, On Medica l 75 mL [facility] 05/09/22 at 2245, Routine FENTanyl PF 2021-08 No 75ug 75 mcg, Un kar (SUBLIMAZE 0-11 14- Slow IV ity o f (PF)) 03:30: 03:15 Push, [place] injection 00 :00 ONCE, 1 Medical 75 mcg dose, On [facility] 05/09/22 at 2230, Routine diphenhydrA 2021-08 No 25mg 25 mg, Uni vers MINE 0-11 14- Slow IV ity of (BENADRYL) 02:30: 03:12 Push, [place] injection 00 :00 ONCE, 1 Medical 25 mg dose, On [facility] 05/09/22 at 2130, STAT ondansetron 2021-08 No 4mg 4 mg, Slow Univers (ZOFRAN 0- IV Push, ity of (PF)) 02:15: 03:09 ONCE, 1 [place] injection 4 00 :00 dose, On Medi miranda mg [facility] 05/09/22 at 2115, JANNA ferrous 2021-08 No 325mg Take 325 Univ ers sulfate 325 0-03 10-03 mg by ity of mg (65 mg 20:43: 00:00 mouth in [place] iron) 33 :00 the Medical tablet morning. Post mesalamine 2021-08 No [id number] 1.2g Take 1 Univers 1.2 gram EC 0-03 10-18 tablet by it y of tablet 00:00: 04:59 mouth [place] 00 :00 daily with Medical breakfast Branch for 14 days. mesalamine 2021-08 No [id number] 1.2g Take 1 Univers 1.2 gram EC 0-03 10-18 tablet by it y of tablet 00:00: 04:59 mouth [place] 00 :00 daily with Medical breakfast Branch for 14 days. mesalamine 2021-08 No [id number] 1.2g Take 1 Univers 1.2 gram EC [...] mg 00 on [facility] Medical 04/28/22 at Post 1999, Until Discontinu ed, Routine
bioinformatics team member approving Restricted medication : DARRYN LANDA acetaminoph Yes [id number] 1{tbl} Take 1 Un kar en-codeine 9-23 tablet by ity of (TYLENOL-CO 00:00: mouth [place] DEINE #3) 00 every 6 Medical 300-30 mg (six) Branch tablet hours as needed for Pain (scale 7-10). Indication s: acute pain mesalamine Yes [id number] 1.2g Take 1 U nivers 1.2 gram EC 9-23 tablet by ity of tablet 00:00: mouth [place] 00 daily with Medical breakfast. Branch vancomycin Yes [id number] 125mg Take 1 Univers 125 mg 9-23 capsule by ity of capsule 00:00: mouth 4 [place] 00 (four) Medical times Branch daily. mesalamine Yes [id number] 1.2g Take 1 U nivers 1.2 gram EC 9-23 tablet by ity of tablet 00:00: mouth [place] 00 daily with Medical breakfast. Branch vancomycin Yes [id number] 125mg Take 1 Univers 125 mg 9-23 capsule by ity of capsule 00:00: mouth [address] [place] [address] 00 (four) Medical times Branch daily. mesalamine Yes [id number] 1.2g Take 1 U nivers 1.2 gram EC 9-23 tablet by ity of tablet 00:00: mouth [place] 00 daily with Medical breakfast. Branch vancomycin Yes [id number] 125mg Take 1 Univers 125 mg 9-23 capsule by ity of capsule 00:00: mouth [address] [place] [address] (four) Medical times Branch daily. acetaminoph Yes [id number] 1{tbl} Take 1 Un kar en-codeine 9-23 tablet by ity of (TYLENOL-CO 00:00: mouth [place] DEINE #3) 00 every 6 Medical 300-30 mg (six) Branch tablet hours as needed for Pain (scale 7-10). Indication s: acute pain mesalamine Yes [id number] 1.2g Take 1 U nivers 1.2 gram EC 9-23 tablet by ity of tablet 00:00: mouth [place] 00 daily with Medical breakfast. Branch vancomycin Yes [id number] 125mg Take 1 Univers 125 mg 9-23 capsule by ity of capsule 00:00: mouth [address] [place] [address] 00 (four) Medical times Branch daily. mesalamine 2021- No [id number] 1.2g Take 1 Univers 1.2 gram EC 9-23 10-11 tablet by it y of tablet 00:00: 00:00 mouth [place] 00 :00 daily with Medical breakfast. Branch vancomycin 2021- No [id number] 125mg Take 1 Univers 125 mg 9-23 [...] Indication s: acute pain vancomycin 2021- No [id number] 125mg Take 1 Univers 125 mg 04-29 capsule by ity of capsule 00:00: 00:00 mouth 4 [place] 00 :00 (four) Medical times Branch daily for 9 days. mesalamine 2021- No [id number] 1.2g Take 1 Univers 1.2 gram EC [...] of 1,000 mg in 20:00: 19:48 Piggyback, [place] NaCl 0.9% 00 :56 Q24H ABX, Medic [...] mg 03 :03 Starting Medical on Mon Post 04/27/22 at 1353, Until Yue 04/28/22 at 1352, Routine, Pain (scale 7-10) acetaminoph Yes 650mg 650 mg, Un kar en 04-27 Oral, ity of (TYLENOL) 18:52: Q6HPRN, [place] tablet 650 36 Starting Medic al mg on Mon Branch 04/27/22 at 1352, Until Discontinu ed, Routine, Pain (scale 1-3) iopamidol 2021- No [id number] 70mL 70 mL, Univers (ISOVUE 04-27 Intravenou ity o f 370-500 mL) 18:15: 18:15 s, ONCE, 1 [place] injection 00 :00 dose, On Medica l 70 mL Mon Post 04/27/22 at 1315, Routine hydrOXYzine 2021- No 25mg 25 mg, Uni vers (ATARAX) 04-27 Oral, ity of tablet 25 17:30: 17:29 ONCE, 1 [place] mg 00 :00 dose, On Medical Mon Post 04/27/22 at 1230, JANNA ondansetron 2021- No [...] 2022-08-25 01:11:00 148 mm[Hg] Univer sity of [facility] Diastolic blood 2022-08-25 01:11:00 98 mm[Hg] Unive rsity of [facility] Heart rate 2022-08-25 01:11:00 81 /min [facility] Respiratory rate 2022-08-25 01:11:00 16 /[facility] Oxygen saturation in 2022-08-25 01:11:00 99 /min University of Arterial blood by [place] [employer] [facility] Pulse oximetry Branch Body temperature 2022-08-24 20:06:00 36.83 [facility] Body height 2022-08-24 20:06:00 175.3 cm [facility] Body weight 2022-08-24 20:06:00 90.719 kg [facility] BMI 2022-08-24 20:06:00 29.53 kg/m2 [facility] Systolic blood 2022-07-03 06:00:00 134 mm[Hg] Univer sity of [facility] Diastolic blood 2022-07-03 06:00:00 84 mm[Hg] Unive rsity of [facility] Heart rate 2022-07-03 06:00:00 72 /min [facility] Respiratory rate 2022-07-03 06:00:00 18 /min [facility] Oxygen saturation in 2022-07-03 06:00:00 95 /min University of Arterial blood by [place] [employer] miranda Pulse oximetry Branch Body temperature 2022-07-03 03:50:00 37.39 Breann Univ ersity of [place] [facility] Body height 2022-07-03 03:50:00 175.3 cm Universi ty of [place] [facility] Body weight 2022-07-03 03:50:00 90.719 kg Universi ty of [place] [facility] BMI 2022-07-03 03:50:00 29.53 kg/m2 Universi ty of [place] [facility] Systolic blood 2022-05-17 16:43:00 128 mm[Hg] Univer sity of pressure [place] [facility] Diastolic blood 2022-05-17 16:43:00 72 mm[Hg] Unive rsity of pressure [place] [facility] Heart rate 2022-05-17 16:43:00 58 /min Universi ty of [place] [facility] Body temperature 2022-05-17 16:43:00 35.83 Breann Univ ersity of [place] [facility] Respiratory rate 2022-05-17 16:43:00 18 /min Univ ersity of [place] [facility] Oxygen saturation in 2022-05-17 16:43:00 100 /min University of Arterial blood by [place] [employer] miranda Pulse oximetry Branch Body weight 2022-05-17 09:42:00 87 kg Universi ty of [place] [facility] BMI 2022-05-17 09:42:00 28.32 kg/m2 Universi ty of [place] [facility] Body height 2022-05-11 22:16:00 175.3 cm Universi ty of [place] [facility] Systolic blood 2022-05-13 14:58:00 128 mm[Hg] Univer sity of pressure [place] [facility] Diastolic blood 2022-05-13 14:58:00 80 mm[Hg] Unive rsity of pressure [place] [facility] Heart rate 2022-05-13 14:58:00 86 /min Universi ty of [place] [facility] Body temperature 2022-05-13 14:58:00 37.67 Breann Univ ersity of [place] [facility] Respiratory rate 2022-05-13 14:58:00 18 /min Univ ersity of [place] [facility] Oxygen saturation in 2022-05-13 14:58:00 99 /min University of Arterial blood by [place] [employer] miranda Pulse oximetry Branch Body weight 2022-05-13 09:27:00 90.992 kg Universi ty of [place] [facility] BMI 2022-05-13 09:27:00 28.32 kg/m2 Universi ty of [place] [facility] Body height 2022-05-11 22:16:00 175.3 cm Universi ty [facility] [place] [facility] Heart rate 2022-05-10 04:12:00 73 /min Universi ty [facility] [place] [facility] Body temperature 2022-05-10 04:12:00 36.5 Breann Univ ersity of [place] [facility] Oxygen saturation in 2022-05-10 04:12:00 97 /min University of Arterial blood by [place] [employer] miranda Pulse oximetry Branch Systolic blood 2022-05-10 04:00:00 133 mm[Hg] Univer sity of pressure [place] [facility] Diastolic blood 2022-05-10 04:00:00 79 mm[Hg] Unive rsity of pressure [place] [facility] Respiratory rate 2022-05-10 04:00:00 19 /min Univ ersity of [place] [facility] Body height 2022-05-10 01:42:00 175.3 cm Universi ty of [place] [facility] Post Body weight 2022-05-10 01:42:00 86.183 kg Universi ty [facility] [place] [facility] BMI 2022-05-10 01:42:00 28.06 kg/m2 Universi ty of [place] [facility] Systolic blood 2022-04-29 17:14:00 132 mm[Hg] Univer sity of pressure [place] [facility] Diastolic blood 2022-04-29 17:14:00 98 mm[Hg] Unive rsity of pressure [place] [facility] Heart rate 2022-04-29 17:14:00 90 /min Universi ty of [place] [facility] Body temperature 2022-04-29 17:14:00 36.28 Breann Univ ersity of [place] [facility] Respiratory rate 2022-04-29 17:14:00 18 /min Univ ersity of [place] [facility] Oxygen saturation in 2022-04-29 17:14:00 100 /min University of Arterial blood by [place] [employer] miranda Pulse oximetry Branch Body weight 2022-04-28 09:36:00 87.998 kg Universi ty of [place] [facility] BMI 2022-04-28 09:36:00 28.65 kg/m2 Universi ty [facility] [place] [facility] Body height 2022-04-27 21:57:00 175.3 cm Universi ty of [place] [facility] Procedures Procedure Date / Time Performing Clinician Source Performed COMP. METABOLIC PANEL 2022-08-24 21:45:00 Elli Harley [facility] ([id number]) Medical Branch CBC WITH DIFF 2022-08-24 21:45:00 Elli Harlye [facility] LACTIC ACID WHOLE BLOOD 2022-08-24 21:45:[address] [facility] CONSENT/REFUSAL FOR 2022-08-24 19:59:50 Doctor Unassigned, [facility] DIAGNOSIS AND TREATMENT [place] [facility] COMP. METABOLIC PANEL 2022-07-03 04:42:00 Justin Baptiste [facility] ([id number]) [facility] Branch CBC WITH DIFF 2022-07-03 04:42:00 Justin Baptiste [facility] CONSENT/REFUSAL FOR 2022-07-03 03:35:53 Doctor Unassigned, [facility] DIAGNOSIS AND TREATMENT [place] [facility] BASIC METABOLIC PANEL 2022-05-16 08:42:00 [facility] K, CL, CO2, GLUCOSE, Medica l Branch BUN, CREATININE, CA) CBC WITH DIFF 2022-05-16 08:42:[facility] 2022-05-16 08:42:00 [facility] (NA, K, CL, CO2, GLUCOSE, Medica l Branch BUN, CREATININE, CA) CBC WITH DIFF 2022-05-16 08:42:00 [facility] PANEL 2022-05-15 09:46:00 [facility] (NA, K, CL, CO2, GLUCOSE, Medica l Branch BUN, CREATININE, CA) CBC WITH DIFF 2022-05-15 09:46:00 [facility] PANEL 2022-05-15 09:46:00 [facility] (NA, K, CL, CO2, GLUCOSE, Medica l Branch BUN, CREATININE, CA) CBC WITH DIFF 2022-05-15 09:46:00 [facility]OLIC PANEL 2022-05-14 08:30:00 Molina Stovall [facility] (NA, K, CL, CO2, GLUCOSE, Medica l Branch BUN, CREATININE, CA) CBC WITH DIFF 2022-05-14 08:30:00 Molina Stovall [facility] BASIC METABOLIC PANEL 2022-05-14 08:30:00 Molina Stovall [facility] (NA, K, CL, CO2, GLUCOSE, Medica l Branch BUN, CREATININE, CA) CBC WITH DIFF 2022-05-14 08:30:00 [facility]AM 2022-05-13 16:29:00 Marybel Sexton [facility] FLEXIBLE SIGMOIDOSCOPY 2022-05-13 16:08:00 Marybel Sexton [facility] FLEXIBLE SIGMOIDOSCOPY 2022-05-13 16:08:00 Marybel Sexton [facility] FLEXIBLE SIGMOIDOSCOPY 2022-05-13 16:07:35 Robin eric [facility] (ENDO) [facility] FLEXIBLE SIGMOIDOSCOPY 2022-05-13 16:07:35 Robin [facility] (ENDO) [facility] HB ABO GROUPING 2022-05-13 11:11:00 Robin [facility] HB ABO GROUPING 2022-05-13 11:11:00 Robin [facility] BASIC METABOLIC PANEL 2022-05-13 08:57:00 Molina Stovall [facility] (NA, K, CL, CO2, GLUCOSE, Medica l Branch BUN, CREATININE, CA) CBC WITH DIFF 2022-05-13 08:57:00 Molina Stovall [facility] BASIC METABOLIC PANEL 2022-05-13 08:57:00 Molina Stovall [facility] (NA, K, CL, CO2, GLUCOSE, Medica l Branch BUN, CREATININE, CA) CBC WITH DIFF 2022-05-13 08:57:00 Molina Stovall [facility] VITAMIN D, 25-OH 2022-05-12 13:31:00 Robin [facility] VITAMIN D, 25-OH 2022-05-12 13:31:00 Robin [facility] PHOSPHORUS 2022-05-12 12:20:00 Robin [facility] MAGNESIUM 2022-05-12 12:20:00 Robin [facility] VITAMIN B12, LEVEL 2022-05-12 12:20:00 Robin [facility] C-REACTIVE PROTEIN 2022-05-12 12:20:00 Robin [facility] THYROID STIMULATING 2022-05-12 12:20:00 Robin [facility] COMP. METABOLIC PANEL 2022-05-12 12:20:00 Robin eric [facility] ([id number]) [facility] LIPID PANEL ([id number])(TOTAL 2022-05-12 12:20:00 Ferdinand [facility]ana [facility] TRIGLY[facility]ER[facility], HDL) N-TERMINAL PRO-BNP 2022-05-12 12:20:00 Robin [facility] PHOSPHORUS 2022-05-12 12:20:00 Robin [facility] MAGNESIUM 2022-05-12 12:20:00 Robin [facility] VITAMIN B12, LEVEL 2022-05-12 12:20:00 Robin [facility] C-REACTIVE PROTEIN 2022-05-12 12:20:00 Robin [facility] THYROID STIMULATING 2022-05-12 12:20:00 Robin eric [facility] HORMONE [facility] COMP. METABOLIC PANEL 2022-05-12 12:20:00 Robin eric [facility] ([id number]) [facility] LIPID PANEL ([id number])(TOTAL 2022-05-12 12:20:00 Ferdinand Fofana [facility] TRIGLYCERIDES, HDL) N-TERMINAL PRO-BNP 2022-05-12 12:20:00 Ferdinand Fofana [facility] PROTHROMBIN TIME / INR 2022-05-12 12:19:00 Ferdinand Fofana [facility] PROTHROMBIN TIME / INR 2022-05-12 12:19:00 Ferdinand Fofana [facility] CBC WITH DIFF 2022-05-12 12:18:00 Robin [facility] CBC WITH DIFF 2022-05-12 12:18:00 Robin eric [facility] XR KUB 2022-05-12 05:58:38 Robin [facility] XR KUB 2022-05-12 05:58:38 Robin [facility] SEDIMENTATION RATE 2022-05-12 02:23:00 Robin eric [facility] CALPROTECTIN, FECAL 2022-05-12 02:23:00 Ferdinand Fofana [facility] SEDIMENTATION RATE 2022-05-12 02:23:00 Robin eric [facility] CALPROTECTIN, FECAL 2022-05-12 02:23:00 Robin eric [facility] OCCULT (GUAIAC) BLOOD 2022-05-12 02:10:00 Robin eric [facility] OCCULT (GUAIAC) BLOOD 2022-05-12 02:10:00 [facility]IN[facility]IS 2022-05-11 19:42:00 Romie Lewis [facility] CLOSTRIDIUM DIFFICILE 2022-05-11 19:42:00 Romie Lewis [facility] FECAL PATHOGENS BY PCR 2022-05-11 19:42:00 Ferdinand Fofana [facility] URINALYSIS 2022-05-11 19:42:00 Romie Lewis [facility] CLOSTRIDIUM DIFFICILE 2022-05-11 19:42:00 Romie Lewis [facility] FECAL PATHOGENS BY PCR 2022-05-11 19:42:00 Robin, [facility] LACTIC ACID WHOLE BLOOD 2022-05-11 19:12:00 Romie Lewis [facility] LACTIC ACID WHOLE BLOOD 2022-05-11 19:12:00 Romie Lewis [facility] BLOOD CULTURE SCREEN 2022-05-11 19:10:00 Romie Lewis [facility] LIPASE 2022-05-11 19:10:00 Romie Lewis [facility] COMP. METABOLIC PANEL 2022-05-11 19:10:00 Romie Lewis [facility] ([id number]) [facility] CBC WITH DIFF 2022-05-11 19:10:00 Romie Lewis [facility] GLYCOSYLATED HEMOGLOBIN 2022-05-11 19:10:00 Ferdinand Fofana [facility] ([facility]) [facility] BLOOD CULTURE SCREEN 2022-05-11 19:10:00 Romie Lewis [facility] LIPASE 2022-05-11 19:10:00 Romie Lewis [facility] COMP. METABOLIC PANEL 2022-05-11 19:10:00 Romie Lewis [facility] ([id number]) [facility] CBC WITH DIFF 2022-05-11 19:10:00 Romie Lewis [facility] GLYCOSYLATED HEMOGLOBIN 2022-05-11 19:10:00 Ferdinand Fofana [facility] ([facility]) [facility] BLOOD CULTURE SCREEN 2022-05-11 19:00:00 Romie Lewis [facility] BLOOD CULTURE SCREEN 2022-05-11 19:00:00 Romie Lewis [facility] CONSENT/REFUSAL FOR 2022-05-11 18:00:56 Doctor Unassigned, [facility] DIAGNOSIS AND TREATMENT [place] [facility] CONSENT/REFUSAL FOR 2022-05-11 18:00:56 Doctor Unassigned, [facility] DIAGNOSIS AND TREATMENT [place] [facility] ABDOMEN PELVIS W 2022-05-10 03:29:54 Constantino Okeefe [facility] Branch HB ABO GROUPING 2022-05-10 02:49:00 Constantino Okeefe [facility] LIPASE 2022-05-10 02:48:00 Constantino Okeefe [facility] COMP. METABOLIC PANEL 2022-05-10 02:48:00 Constantino Okeefe [facility] ([id number]) [facility] CBC WITH DIFF 2022-05-10 02:48:00 Consatntino Okeefe [facility] CONSENT/REFUSAL FOR 2022-05-10 01:33:55 Doctor Unassigned, [facility] DIAGNOSIS AND TREATMENT [facility] MAGNESIUM 2022-04-29 08:47:00 Cordell [facility] FERRITIN SERUM 2022-04-29 08:47:00 Cordell [facility] IRON 2022-04-29 08:47:00 Cordell [facility] TOTAL IRON BINDING 2022-04-29 08:47:00 Cordell [facility] CAPACITY [facility] BASIC METABOLIC PANEL 2022-04-29 08:47:00 Cordell [facility] (NA, K, CL, CO2, GLUCOSE, Medica l Branch BUN, CREATININE, CA) CBC WITH DIFF 2022-04-29 08:47:00 Cordell [facility] MAGNESIUM 2022-04-28 09:51:00 Jaci Estrella [facility] BASIC METABOLIC PANEL 2022-04-28 09:51:00 Jaci Estrella [facility] (NA, K, CL, CO2, GLUCOSE, Medica l Branch BUN, CREATININE, CA) CBC WITH DIFF 2022-04-28 09:51:00 Jaci Estrella [facility] C-REACTIVE PROTEIN 2022-04-28 01:53:00 Jaci Estrella [facility] CLOSTRIDIUM DIFFICILE 2022-04-28 01:46:00 Jaci Estrella [facility] TOXIN [facility] FECAL PATHOGENS BY PCR 2022-04-28 01:46:00 Jaci Estrella [facility] COVID-19 (ID NOW RAPID 2022-04-27 18:36:00 Viv Ventura [facility] TESTING) Medical Branch LAB ONLY COVID 2022-04-27 18:36:00 Viv Ventura [facility] INTERPRETATION [facility] CT ABDOMEN PELVIS W 2022-04-27 17:16:09 Viv Ventura [facility] CONTRAST [facility] Branch ABORH CONFIRMATION (LAB 2022-04-27 16:40:00 Viv Ventura [facility] ONLY) Medical Branch URINALYSIS 2022-04-27 15:38:00 Viv Ventura [facility] LIPASE 2022-04-27 15:10:00 Viv Ventura [facility] MAGNESIUM 2022-04-27 15:10:00 Viv Ventura [facility] TROPONIN I 2022-04-27 15:10:00 Viv Ventura [facility] COMP. METABOLIC PANEL 2022-04-27 15:10:00 Viv Ventura [facility] ([id number]) Medical Branch CBC WITH DIFF 2022-04-27 15:10:00 Viv Ventura [facility] PROTHROMBIN TIME / INR 2022-04-27 15:10:00 Viv Ventura [facility] ACTIVATED PARTIAL 2022-04-27 15:10:00 Viv Ventura [facility] THRMPLAS TY [facility] HB ECG ROUTINE & RHYTHM 2022-04-27 15:09:41 Viv Ventura [facility] STRIP [facility] HB ABO GROUPING 2022-04-27 15:09:00 Viv Ventura [facility] NOTICE OF PRIVACY 2022-04-27 14:49:32 Doctor Nico, [facility] PRACTICES [facility] CONSENT/REFUSAL FOR 2022-04-27 14:49:05 Doctor Nico, [facility] DIAGNOSIS AND TREATMENT [facility] Encounters Start End Encounter Admission Attending Care Care Encounter Source Date/Time Date/Time Type Type Clinicians Facility Department ID 2022-02-10 Outpatient [facility] [id number] -2 [place] 11:33:[address] 2022-01-25 Outpatient [facility] [id number] [place] 15:47:07 [facility] [id number] [facility] 2023-01-02 2023-01-02 Emergency EM Peleg, HCANW GAUTAM [id number] [facility] 09:07:00 13:07:00 Leeor 40 [facility] are [facility] 2023-01-02 2023-01-02 Emergency EM Peleg, HCANW GAUTAM [id number] [facility] 09:07:00 13:07:00 Leeil 40 [facility] are [facility] 2022-11-26 2022-11-29 Inpatient EM Darin, HCANW MED [id number] [facility] 12:30:00 13:57:00 Mccracken [address] [place] [facility] are [facility] 2022-11-26 2022-11-29 Inpatient EM Darin, HCANW MED [id number] [facility] 12:30:00 13:57:00 [facility]racken [facility] 2022-11-21 2022-11-21 Emergency EM Bower II, HCANW GAUTAM [id number] [facility] 14:20:00 19:15:00 Dennis 73 [facility] are [facility] 2022-11-21 2022-11-21 Emergency EM Bower II, HCANW GAUTAM [id number] [facility] 14:20:00 19:15:00 Dennis 73 [facility] are [facility] 2022-08-24 2022-08-24 Emergency X FAULCONER, [facility] ERT [id number] Univers 14:07:00 19:15:[address] [facility] 2022-08-24 2022-08-24 Emergency Faulconer, [facility] [id number] Univers 14:07:00 19:15:00 Elli [facility] 350.1.13.10 i [facility] 4.2.7.2.686 [facility] [id number] [address] 2022-07-02 2022-07-03 Emergency X VASUT, [facility] ERT [id number] Univers 21:53:00 00:19:[address] [facility] 2022-07-02 2022-07-03 Emergency Vasut, [facility] [id number] Univers 21:53:00 00:19:00 Justin INFANTE 350.1.13.10 i ty of [facility] 4.2.7.2.686 [facility] [id number] [facility] 084 Branch 2022-07-02 2022-07-02 Orders Doctor JESSEE 1.2.840.114 [id number] Univers 00:00:00 00:00:00 Only Unassigned, NATE 350.1.13.10 [facility] 4.2.7.2.686 Kartik as [id number] [facility] 009 Branch 2022-05-11 2022-05-17 Outpatient [facility] [id number] Univers 13:03:00 14:23:00 [facility] 2022-05-11 2022-05-17 Emergency Joshua Romie [facility] 1.2.840. 114 [id number] Univers 13:03:00 14:23:00 Jaci Estrella 350.1.13.10 ity of [place] 4.2.7.2.686 [facility] [id number] [place] [address] Branch 2022-05-13 2022-05-13 Surgery DarshanUNM [facility] 1.2.265.153 [id number] Univers 10:30:00 11:10:00 Marybel INFANTE 350.1.13.10 i ty of [facility] 4.2.7.2.686 [facility] SURGICAL [id number] [facility] 020 Branch 2022-05-09 2022-05-09 Emergency [facility] [id number] Univers 20:46:00 23:50:00 [facility]INO [facility] 2022-05-09 2022-05-09 [facility] 1.2.127.610 [id number] Univers 20:46:00 23:50:00 Constantino INFANTE 350.1.13.10 ity of [facility] 4.2.7.2.686 [facility] [id number] [place] [address] Branch 2022-05-02 2022-05-02 Transition STEF Cochran 1.2.840.114 [id number] Univers 00:00:00 00:00:00 of Care Lana TRUONGY 350.1.13.10 ity chavo [place] 4.2.7.2.686 Hansel quigley [id number] [facility] 403 Branch 2022-04-27 2022-04-29 Inpatient X COR[facility]LL[facility] [id number] Univers 09:54:00 13:15:00 DARRYN ity [facility] 2022-04-27 2022-04-29 [facility] Viv Ventura [facility] 1.2.840.1 14 [id number] Univers 09:54:00 13:15:00 Encounter Jaci Estrella 350.1.13.10 ity of Darryn LandaJULIO 4.2.7.2.686 [facility] [id number] [facility] 081 Branch 2022-01-31 2022-01-31 Outpatient [facility] PIJFJJK QTO [facility] 00:00:00 00:00:00 [id number] 2022-01-30 2022-01-30 Emergency E SHINTHIA, [facility] 7503 Memoria 18:36:00 22:28:00 JOHN [facility] 2022-01-29 2022-01-30 Emergency E MARIAELENA, [facility] 7502 Memoria 21:25:00 00:58:00 GREGORIO [facility] 2022-01-28 2022-01-28 Emergency E MARIAELENA, [facility] 7501 Memoria 11:02:00 14:55:00 GREGORIO [facility] 2022-01-24 2022-01-27 Inpatient E AZAEL, [facility] MED 7500 Memoria 23:12:00 15:10:00 OBGEOVANNA [facility] 2022-01-25 2022-01-[address] [facility] [id number] [place] 18:30:00 18:30:00 Health 2022-01-25 2022-01-25 Outpatient [facility] PIJFJJK QTO [facility] 00:00:00 00:00:00 [id number] Results Test Description Test Time Test Comments Results Result [facility] e Comments - CT HEAD/BRAIN 2023-01-02 W/O CONT 12:34:00 [facility] 1975 Sex: M Guerrero ronquillo Name: ALEX BURROUGHS Unit No: [id number] EXAMS: CPT: [id number] CT HEAD/BRAIN W/O CONT 14021 HISTORY: TENA CT SCAN OF THE HEAD [...] (1237) BATCH NO: N/A Name: ALEX BURROUGHS [facility] Phys: PELLE - Peleg,Leeor B DO [address] [place] : 1975 Age: 47 Sex: [place] [address] Loc: N.ERS Exam Date: 01/02/2023 Status: REG ER PH: FAX: PAGE 1 Signed Report - CT HEAD/BRAIN 2023-01-02 W/O CONT 12:34:00 [facility] 1975 Sex: M Guerrero ronquillo Name: ALEX BURROUGHS Unit No: [id number] EXAMS: CPT: [id number] CT HEAD/BRAIN W/O CONT 29964 HISTORY: TENA CT SCAN OF THE HEAD [...] (1237) BATCH NO: N/A Name: ALEX BURROUGHS [facility] Phys: PELLE - Peleg,Leeor B DO [address] [place] : 1975 Age: 47 Sex: [place] [address] Loc: N.ERS Exam Date: 01/02/2023 Status: DEP ER PH: FAX: PAGE 1 Signed Report - CT ABD PELVIS 2023-01-02 W/CONT 11:56:00 [facility] 1975 Sex: M Guerrero ronquillo Name: ALEX BURROUGHS Unit No: [id number] EXAMS: CPT: [id number] CT ABD PELVIS W/CONT 44524 Comparison study: 11/21/2022 History: ABD PAIN GI [...] of the sigmoid colon. Name: ALEX BURROUGHS [facility] Phys: JOSHUAJAZIEL De La CruzBambi CERVANTES [address] [place] : 1975 Age: 47 Sex: [place] [address] Loc: N.ERS Exam Date: 01/02/2023 Status: REG ER PH: FAX: PAGE 1 Signed Report (CONTINUED) Patient Name: ALEX BURROUGHS Unit No: [id number] EXAMS: CPT: [id number] CT ABD PELVIS W/CONT 52309 (Continued) at 1156 Reported and signed by: John Paul Jha MD CC: Bambi De La Cruz Technologist: AIM Hanna CTDI: 13.28 DLP: 722.84 Trscr Dt/Tm: 01/02/2023 (1156) by:[email or web address] [facility] Print D/T: S: 01/02/2023 (1200) BATCH NO: N/A Name: ALEX BURROUGHS [facility] Phys: ALEJA De La CruzBambi APRNNYordan [address] [place] : 1975 Age: 47 Sex: [place] [address] Loc: N.ERS Exam Date: 01/02/2023 Status: REG ER PH: FAX: PAGE 2 Signed Report - CT ABD PELVIS 2023-01-02 W/CONT 11:56:00 [facility] 1975 Sex: M Guerrero ronquillo Name: ALEX BURROUGHS Unit No: [id number] EXAMS: CPT: [id number] CT ABD PELVIS W/CONT 47183 Comparison study: 11/21/2022 History: ABD PAIN GI [...] of the sigmoid colon. Name: ALEX BURROUGHS [facility] Phys: Bambi Rod [address] [facility] : 1975 Age: 47 Sex: [place] [address] Loc: N.ERS Exam Date: 01/02/2023 Status: [facility] PH: FAX: PAGE 1 Signed Report (CONTINUED) Patient Name: ALEX BURROUGHS Unit No: [id number] EXAMS: CPT: [id number] CT ABD PELVIS W/CONT 81895 (Continued) at 1156 Reported and signed by: John Paul Jha MD CC: Bambi De La Cruz Technologist: IAM Hanna CTDI: 13.28 DLP: 722.84 Trscr Dt/Tm: 01/02/2023 (1156) by:[email or web address] Orig Print D/T: S: 01/02/2023 (1200) BATCH NO: N/A Name: ALEX BURROUGHS [facility] ED Phys: Bambi Rod [address] [place] : 1975 Age: 47 Sex: [place] [address] Loc: N.ERS Exam Date: 01/02/2023 Status: DEP [...] message] The (test code = URO) system [facility] generated this result transmit eunice reference [...] culture: Gross HematuriaSpecimen Description: CLEAN CATCHBASIC METABOLIC [id number] 10:17:00 Test Item Value Reference Range Interpretation [...] [Automated message] (test code = The system [employer] HEMINDEX) generated this result transmitted ref erence range: 1 NORMAL . The reference range was not used to int erpret this result as normal/abnormal . INDEX ICTERIC 1 Index/DL See_Comment [Automated me ssage] (test code = The system [employer] ICTINDEX) generated this result transmitted ref erence range: 1 NORMAL . The reference range was not used to int erpret this result as normal/abnormal . INDEX LIPEMIA 1 Index/DL See_Comment [Automated me ssage] (test code = The system [employer] LIPINDEX) generated this result transmitted ref erence range: 1 NORMAL . The reference range was not used to int erpret this result as normal/abnormal . LIVER FUNCTION [id number] 10:17:00 Test Item Value Reference Range Interpretation [...] code = 54 U/L 42-121 N ALKP) [id number] 10:17:00 Test Item Value Reference Range Interpretation Comments LIPASE (test code = LIP) 37 IU/L 22-51 N CBC W/AUTO [id number] 09:57:00 Test Item Value Reference Range Interpretation [...] x10 3/uL 0.0-0.1 N HGBA1C - GLYCOSYLATED [id number] 14:18:00 Test Item Value Reference Range Interpretation Comments GLYCOSYLATED HEMOGLOBIN 6.3 % 4.0-6.0 H Inte rpretive Data: (HA1C) (test code = Caution should be GLYHGB) exercised when interpreting th e HgbA1c in patients wit h hemolytic anemi a, iron deficiency and when the total hemoglobi n is < 9g/dL, due to a decrease in average age of red blood cells [id number] 05:52:00 Test Item Value Reference Range Interpretation Comments GLUBED (test code = GLUBED) 161 MG/DL 70-105 H [id number] 05:38:00 Test Item Value Reference Range Interpretation Comments PHOSPHOROUS (test code = PHOS) 3.2 mg/dl 2.5-4.6 N [id number] 05:38:00 Test Item Value Reference Range Interpretation Comments MAGNESIUM (test code = MAG) 2.1 mg/dl 1.8-2.5 N BASIC METABOLIC [id number] 05:06:00 Test Item Value Reference Range Interpretation [...] [Automated message] (test code = The system [employer] HEMINDEX) generated this result transmitted ref erence range: 1 NORMAL . The reference range was not used to int erpret this result as normal/abnormal . INDEX ICTERIC 1 Index/DL See_Comment [Automated me ssage] (test code = The system [employer] ICTINDEX) generated this result transmitted ref erence range: 1 NORMAL . The reference range was not used to int erpret this result as normal/abnormal . INDEX LIPEMIA 0 Index/DL See_Comment [Automated me ssage] (test code = The system [employer] LIPWongnaiEX) generated this result transmitted ref erence range: 1 NORMAL . The reference range was not used to int erpret this result as normal/abnormal . CBC W/AUTO [id number] 04:59:00 Test Item Value Reference Range Interpretation [...] = BA#) 0.0 x10 3/uL 0.0-0.1 N [id number] 17:40:00 Test Item Value Reference Range Interpretation Comments GLUBED (test code = GLUBED) 122 MG/DL 70-105 H BASIC METABOLIC [id number] 07:03:00 Test Item Value Reference Range Interpretation [...] [Automated message] (test code = The system [employer] HEMINDEX) generated this result transmitted ref erence range: 1 NORMAL . The reference range was not used to int erpret this result as normal/abnormal . INDEX ICTERIC 1 Index/DL See_Comment [Automated me ssage] (test code = The system [employer] ICTINDEX) generated this result transmitted ref erence range: 1 NORMAL . The reference range was not used to int erpret this result as normal/abnormal . INDEX LIPEMIA 0 Index/DL See_Comment [Automated me ssage] (test code = The system [employer] LIPINDEX) generated this result transmitted ref erence range: 1 NORMAL . The reference range was not used to int erpret this result as normal/abnormal . [id number] 07:03:00 Test Item Value Reference Range Interpretation Comments PHOSPHOROUS (test code = PHOS) 3.0 mg/dl 2.5-4.6 N [id number] 07:03:00 Test Item Value Reference Range Interpretation Comments MAGNESIUM (test code = MAG) 1.5 mg/dl 1.8-2.5 L CBC W/AUTO [id number] 06:51:00 Test Item Value Reference Range Interpretation Comments WHITE BLOOD CELL (test 9.5 x10 3/uL 3.2-11.5 N code = WBC) RED BLOOD CELL (test 4.26 x10(6)/m 4.20-5.70 N code = RBC) HEMOGLOBIN (test code 10.8 g/dL 12.9-17.3 L NOTIFI ED JOHN = HGB) YOUNG RN HEMATOCRIT (test code 34.3 % 38.7-51.0 [...] x10 3/uL 0.0-0.1 N = BA#) SED [id number] 11:56:00 Test Item Value Reference Range Interpretation Comments SED RATE (test code = SEDW) 10 mm/hr 0-15 N BASIC METABOLIC [id number] 11:18:00 Test Item Value Reference Range Interpretation [...] [Automated message] (test code = The system [employer] HEMINDEX) generated this result transmitted ref erence range: 1 NORMAL . The reference range was not used to int erpret this result as normal/abnormal . INDEX ICTERIC 1 Index/DL See_Comment [Automated me ssage] (test code = The system [employer] ICTINDEX) generated this result transmitted ref erence [...] this result as normal/abnormal . CBC W/AUTO [id number] 11:09:00 Test Item Value Reference Range Interpretation [...] 0.0 x10 3/uL 0.0-0.1 N THYROID STIMULATING [id number] 05:46:00 Test Item Value Reference Range Interpretation Comments THYROID STIMULATING HORMONE 1.762 uIU/ml 0.450-5.330 N (test code = TSH) CBC W/AUTO [id number] 05:38:00 Test Item Value Reference Range Interpretation [...] 0.1 x10 3/uL 0.0-0.1 N BASIC METABOLIC [id number] 05:26:00 Test Item Value Reference Range Interpretation [...] [Automated message] (test code = The system [employer] h HEMINDEX) generated this result transmitted ref erence range: 1 NORMAL . The reference range was not used to int erpret this result as normal/abnormal . INDEX ICTERIC 1 Index/DL See_Comment [Automated me ssage] (test code = The system [employer] ICTINDEX) generated this result transmitted ref erence range: 1 NORMAL . The reference range was not used to int erpret this result as normal/abnormal . INDEX LIPEMIA 0 Index/DL See_Comment [Automated me ssage] (test code = The system [employer] LIPINDEX) generated this result transmitted ref erence range: 1 NORMAL . The reference range was not used to int erpret this result as normal/abnormal . UA RFLX MICR CULT IF [id number] 22:47:00 Test Item Value Reference Range Interpretation [...] RiskForSepsis-no oth srcSpecimen Description: CLEAN CATCHBASIC METABOLIC [id number] 22:37:00 Test Item Value Reference Range Interpretation [...] [Automated message] (test code = The system [employer] HEMINDEX) generated this result transmitted ref erence range: 1 NORMAL . The reference range was not used to int erpret this result as normal/abnormal . INDEX ICTERIC 1 Index/DL See_Comment [Automated me ssage] (test code = The system [employer] ICTINDEX) generated this result transmitted ref erence range: 1 NORMAL . The reference range was not used to int erpret this result as normal/abnormal . INDEX LIPEMIA 1 Index/DL See_Comment [Automated me ssage] (test code = The system [employer] LIPINDEX) generated this result transmitted ref erence range: 1 NORMAL . The reference range was not used to int erpret this result as normal/abnormal . LIVER FUNCTION [id number] 22:37:00 Test Item Value Reference Range Interpretation [...] code = 61 U/L 42-121 N ALKP) [id number] 22:37:00 Test Item Value Reference Range Interpretation Comments LIPASE (test code = LIP) 37 IU/L 22-51 N CBC W/AUTO [id number] 22:23:00 Test Item Value Reference Range Interpretation [...] 3/uL 0.0-0.1 N - CT ABD PELVIS [id number] 18:23:00 [facility] 1975 Sex: MPatient Name: ALEX BURROUGHS Unit No: [id number] EXAMS: CPT: [id number] CT ABD PELVIS W/CONT 33892 EXAM: - CT ABD PELVIS W/CONT, on [...] colitis. No significant pericolonic inflammation. Name: MANJEETALEX [facility] EDPhys: Marvel Morris [address] [facility] : 1975 Age: 47 Sex: M [place], [place] [address]Cuja No: [id number] Loc: N.ERS Exam Date: 11/21/2022 Status: DEP ER PH: FAX: PAGE 1 Signed Report(CONTINUED) Patient Name: ALEX BURROUGHS Unit No: [id number] EXAMS: CPT: [id number] CT ABD PELVIS W/CONT 56945 (Continued) 2. No obstructive uropathy or bowel obstruction. Normal appendix at 1823 Reported and signed by: MAIA BONILLA MD CC: Marvel HARO Technologist: JENNIFER Kovacs CTDI: 10.99 DLP: 598.17 Trscr Dt/Tm: 11/21/2022(1822) by:[email or web address] Orig Print D/T: S: 11/21/2022 (1825) BATCH NO: N/A Name: NAT BURROUGHSAN [facility] ED Phys: Marvel Morris [address] : 1975 Age: 47 Sex: [place] [address] Loc: N.ERS Exam Date: 11/21/2022 Status: DEP ER PH: FAX: PAGE 2 Signed Report- CT ABD PELVIS [id number] 18:23:00 [facility] : 1975 Sex: MPatient Name: ALEX BURROUGHS Unit No: [id number] EXAMS: CPT: [id number] CT ABD PELVIS W/CONT 26651 EXAM: - CT ABD PELVIS W/CONT, on [...] No significant pericolonic inflammation. Name: ALEX BURROUGHS [facility] Phys: Marvel Morris [address] [facility] : 1975 Age: 47 Sex: [place], [place] [address]Swwa No: [id number] Loc: N.ERS Exam Date: 11/21/2022 Status: DEP ER PH: FAX: PAGE 1 Signed Report (CONTINUED) Patient Name: ALEX BURROUGHS Unit No: [id number] EXAMS: CPT: [id number] CT ABD PELVIS W/CONT 12194 (Continued) 2. No obstructive uropathy or bowel obstruction. Normal appendix at 1823 Reported and signed by: MAIA BONILLA MD CC: Marvel HARO Technologist: JENNIFER Kovacs CTDI: 10.99 DLP: 598.17 Trscr Dt/Tm: 11/21/2022(1822) by:[email or web address] Orig Print D/T: S: 11/21/2022 (1825) BATCH NO: N/A Name: ALEX BURROUGHS [facility] Phys: Marvel Morris [address] [facility] : 1975 Age: 47 Sex: [place] [address] Loc: N.ERS Exam Date: 11/21/2022 Status: DEP ER PH: FAX: PAGE 2 Signed ReportBASIC METABOLIC [id number] 16:50:00 Test Item Value Reference Range Interpretation [...] mg/dL 8.5-10.5 N = CA) LIVER FUNCTION [id number] 16:50:00 Test Item Value Reference Range Interpretation [...] code = 62 U/L 42-121 N ALKP) [id number] 16:50:00 Test Item Value Reference Range Interpretation Comments LIPASE (test code = LIP) 34 IU/L 22-51 N UA RFLX MICR CULT IF [id number] 16:38:00 Test Item Value Reference Range Interpretation [...] culture: Suprapubic PainSpecimen Description: CLEAN CATCHCBC W/AUTO [id number] 15:23:00 Test Item Value Reference Range Interpretation [...] x10 3/uL 0.0-0.1 N COMP. METABOLIC PANEL (52271)2022-08-24 22:30:45 Test Item Value Reference Range Interpretation Comments NA (test code = 137 mmol/L 135-145 3886872858) K (test code = 4.1 mmol/L 3.5-5.0 3644121410) CL (test code = 105 mmol/L 98-108 4305094554) CO2 TOTAL (test code 26 mmol/L 23-31 = 3949900536) AGAP (test code = 2-16 6570559985) BUN (test code = 10 mg/dL 7-23 2311437543) GLUCOSE (test code = 95 mg/dL 70-110 6469829901) CREATININE (test code 0.93 mg/dL 0.60-1.25 = 1847385094) TOTAL BILI (test code 0.5 mg/dL 0.1-1.1 = 9963579069) CALCIUM (test code = 8.8 mg/dL 8.6-10.6 6670427276) T PROTEIN (test code 7.1 g/dL 6.3-8.2 = 4769689468) ALBUMIN (test code = 4.0 g/dL 3.5-5.0 2490243793) ALK PHOS (test code = 80 U/L 34-122 2229596868) ALTv (test code = 19 U/L 5-50 1742-6) AST(SGOT) (test code 25 U/L 13-40 = 2060324587) eGFR (test code = mL/min/1.73m2 5257006628) ROBERTO (test code = ROBERTO) Association of [...] or urine or abnormalities in imaging tests). General acute hospital WITH [id number] 22:14:06 Test Item Value Reference Range Interpretation [...] (test code = 54.9 fL 38.5-51.6 H 48498-4) RDW-CV (test code = 21.0 % 12.1-15.4 H 788-0) PLT (test code = See_Comment H [Automated 777-3) message] The sy stem which generated this result transmitted reference range : 150 - 328 10*3/ ?L. The reference r carlota was not used to interpret this result as normal/abnormal . MPV (test code = 10.1 fL 9.8-13.0 95417-6) NRBC/100 WBC (test See_Comment [Automat ed code = 6642895376) message] The system which generated this result transmitted reference range : 0.0 - 10.0 /100 WBCs. The refer ence range was not u sed to interpret th is result as normal/abnormal . NRBC x10^3 (test code See_Comment [Auto mated = 6665293949) message] The s ystem which generated this result transmitted reference range : 10*3/?L. The reference range was not used to interpret this result as normal/abnormal . GRAN MAT (NEUT) % 52.4 % (test code = 770-8) IMM GRAN % (test code 0.30 % = 0160441459) LYMPH % (test code = 23.7 % 736-9) MONO % (test code = 15.7 % 5905-5) EOS % (test code = 6.3 % 713-8) BASO % (test code = 1.6 % 706-2) GRAN MAT x10^3(ANC) 3.94 10*3/uL 1.99-6.95 (test code = 1007998963) IMM GRAN x10^3 (test 0.00-0.06 code = 4905725583) LYMPH x10^3 (test code 1.78 10*3/uL 1.09-3.23 = 731-0) MONO x10^3 (test code 1.18 10*3/uL 0.36-1.02 H = 742-7) EOS x10^3 (test code = 0.47 10*3/uL 0.06-0.53 711-2) BASO x10^3 (test code 0.12 10*3/uL 0.01-0.09 H = 704-7) Lab Interpretation Abnormal (test code = 35248-1) [id number] 21:51:41 Test Item Value Reference Range Interpretation Comments LACTIC ACID (test code = 1.02 mmol/L 0.50-2.20 9529113595) Lab Interpretation (test code = Normal 13525-2) [facility]. METABOLIC PANEL (17977)2022-07-03 05:30:27 Test Item Value Reference Range Interpretation Comments NA (test code = 140 mmol/L 135-145 9356294029) K (test code = 4.2 mmol/L 3.5-5.0 8879709350) CL (test code = 105 mmol/L 98-108 4367773704) CO2 TOTAL (test code 30 mmol/L 23-31 = 4109736191) AGAP (test code = 2-16 5076402894) BUN (test code = 13 mg/dL 7-23 0127394335) GLUCOSE (test code = 92 mg/dL 70-110 2096132006) CREATININE (test code 0.89 mg/dL 0.60-1.25 = 2404114060) TOTAL BILI (test code 0.4 mg/dL 0.1-1.1 = 3248774026) CALCIUM (test code = 9.2 mg/dL 8.6-10.6 4950959893) T PROTEIN (test code 7.2 g/dL 6.3-8.2 = 9500469941) ALBUMIN (test code = 4.3 g/dL 3.5-5.0 3024494200) ALK PHOS (test code = 62 U/L 34-122 4140455337) ALTv (test code = 19 U/L 5-50 1742-6) AST(SGOT) (test code 32 U/L 13-40 = 2894292517) eGFR (test code = mL/min/1.73m2 9850372649) ROBERTO (test code = ROBERTO) Association of [...] or urine or abnormalities in imaging tests). General acute hospital WITH [id number] 04:54:46 Test Item Value Reference Range Interpretation [...] RDW-SD (test code = 47.4 fL 38.5-51.6 84442-4) RDW-CV (test code = 18.8 % 12.1-15.4 H 788-0) PLT (test code = See_Comment H [Automated 777-3) message] The sy stem which generated this result transmitted reference range : 150 - 328 10*3/ ?L. The reference r carlota was not used to interpret this result as normal/abnormal . MPV (test code = 9.9 fL 9.8-13.0 23081-8) NRBC/100 WBC (test See_Comment [Automat ed code = 0267344151) message] The system which generated this result transmitted reference range : 0.0 - 10.0 /100 WBCs. The refer ence range was not u sed to interpret th is result as normal/abnormal . NRBC x10^3 (test code See_Comment [Auto mated = 4816254513) message] The s ystem which generated this result transmitted reference range : 10*3/?L. The reference range was not used to interpret this result as normal/abnormal . GRAN MAT (NEUT) % 52.0 % (test code = 770-8) IMM GRAN % (test code 0.30 % = 5570906552) LYMPH % (test code = 28.1 % 736-9) MONO % (test code = 16.8 % 5905-5) EOS % (test code = 1.6 % 713-8) BASO % (test code = 1.2 % 706-2) GRAN MAT x10^3(ANC) 3.91 10*3/uL 1.99-6.95 (test code = 1285819884) IMM GRAN x10^3 (test 0.00-0.06 code = 2701758014) LYMPH x10^3 (test code 2.11 10*3/uL 1.09-3.23 = 731-0) MONO x10^3 (test code 1.26 10*3/uL 0.36-1.02 H = 742-7) EOS x10^3 (test code = 0.12 10*3/uL 0.06-0.53 711-2) BASO x10^3 (test code 0.09 10*3/uL 0.01-0.09 = 704-7) Lab Interpretation Abnormal (test code = 94643-6) [facility] [id number] 15:55:55 Test Item Value Reference Range Interpretation Comments Case Report (test code Surgical Pathology ? ? = 9895488181) ?Case: [id number] ? Authorizing Provider: ?Marybel Sexton MD ? [...] RECTUM, Random biopsies ? Final Diagnosis (test j8ynfKOwTDLzq0zhQNWukP code = 4782866496) FuZzEwMzNcZnRuYmpcdWMx IHtccnRmMVxlcGljMTAxMD HpBG1vyEgjoXy2uBrnSRAx qhU2uFQlSHwik3yoHVV2a4 zkfpxdSVFjKTpwBa0aaJRw zIdfSvGlOYPoSWs5jX64YR TtfJ1ipNSyDEv2GNRnhBPz wbGzTyMgJUGkaORztFE6UT BwTS4vdnwvZFbpFXnlUZLy etJ0KXQegNLsN0CaKRSvVM 9fkrpzLKA7AVnlATUfILD0 VxWuWULbn7Trvca8FuXydP FyZFxwbGFpblxmczIwXHBh gfydnUL6OJnygX79VKWlsC xaHLXdPZHpIYLGEJ8LKVMC VPKHXKZFE7XIMzNSIbscWI VKPtRTMOKTQU1CV5j6XVas LLMavLveRJIpEJpanC0dVC HhNEUjFXHCLV1JGLAdLWFQ M9BNOXfMBEyjTOwDRWPaIF GBWGWANLWVRtrsT4WTWRJm TTQIF9PHZswsAK6XHsNWI6 PETWlAODXOT7PWRGVCMEDB VElDXHBhciAgICAgICAgSU 3RIJaZDqRITSGDWlBNNN6Z FqOaEYRQKKNKJVezUB0GLY SFWHHYZNSQL2pFCROFJVGY UXqwRBkGFL4TEMaSMuxlF6 1QB5gLEPSKQAZUJUHEEFch YXIgICAgICAgIFNFVkVSRU xZIEFDVElWRSBDSFJPTklD IENPTElUSVNccGFyICAgIC 0aPo5pE3TJQzKDW91OKP1D BYYOJ6FFSKMARZKFBLKXFT lGSUVEIFxwYXJccGFyXGxp NPRsZODqGAZ4DFfhcX23FZ UfKo7vU68KO24cOHLYD51B QFXzUBDPYyNMLUSOHN4VF2 r2VZlfZWZspZxeVUPmZNca gR0kRGJjTG5bS62OB08WKf GUYEETX0RqQ1sFVWRJFZEU XhqsX7EKZOCCKUzPWTNUId lQVCBBQlNDRVNTLCBJTkNS RUFTRUQgTFlNUEhPUExBU0 7SQ2zGTHIngBBjECKgWTXy ZO9FAIcJMuYPHXNPZfWHHN 4PAeSkHCHENIJDRJxhTT9N QGDGJAEXDMLPJ1pRWQHVFR TRWItoLIkVJF2VIEsNFnoq T7VYHKQnKIYMWFVVKDYnsE KjPRXvRZYnH39GF5jUHEMS VCBXSVRIIFNFVkVSRUxZIE FDVElWRSBDSFJPTklDIENP LXlFMDUdeDMxENPqXB0yKo 1oA6NFUzUPZ24WAZ0NADWH M4KLCUONLUZDWYAYPEaOLT VEIFxwYXJccGFyXGxpNDUw KJXkAGT6KZwpeO36SAPuTh 2fFtKUJWNSGKLUPH3TO87o QklPUFNZOiBccGFyXGxpMF xmaTBcbGluMCAgICAtIENP SB0RXIEuCMMFH9KONCtALO ggVUxDRVIsIENSWVBUSVRJ TzbcW1EYZALpDPUKC6AHQp ekUE6KVjJNK8NJBIiNVJFZ A7VOFPQXVZIVHVnHHVRxcs AgICAgIElORklMVFJBVEUg YS2zBZZQOJ4FZATAH6AEVL EsIEFORCBDUllQVCBBUkNI WDAMV2DFRpBVEVLZB2DRLi GZY71wMDGXSKXDKRKPL3Gd O9EHPDkoZQWiXVWmFFLMK9 2MRMEQOD0MKWtVLDtgF2QC RVJFTFkgQUNUSVZFIENIUk 2BZNMjSJYNZ6TFXBkSLPGy raCnTOJwCH0HWTzXUU7KEC 9NQSBPUiBEWVNQTEFTSUEg SURFTlRJRklFRCBccGFyXH HxxpnrugXmNImvFav7CEGa IRxbDI4hCSPKFDKyPP3nKO 1aMUVrCXs2IFjjCK5ejABr JCFhcoAsYfCrZZzfGCN9x5 xydGYxXHNzdGVjZjIyMDAw DCGgu6cgUEAmyGQkZzHrSn NcZnRuYmpcdWMxXGRlZmYw k3avt402wWCdk3rjYQBjRx Y2sNLaQRPobBkyhwl4iUhb IyDkCZHup9zsojRiUhYxGG LpZYAiYSRpjTDfQ311OXEw FMnrc3iqg4WqVWPbiRRke4 H4RHHRHNavVmQzY731x5jr n9wvbjWsbNL4IAOjLQR2WZ mnjeJkdeO2HTthcQLyNdJ6 IDtccmVkMFxncmVlbjBcYm i1GRYiP969ZZG0kVpgv8ju MFD2ICLiQCCtCqpaWj0yoT VuV362NLOxLKLFCKLphEd6 YOZbheFwtmMccSDWt878T6 75h3glLHOlteMppQiSivyv w8rhQ518QQUnbIFeisFaFw FvCDTfvQXxtTY8JIVlFN3a tserWKusLNjxTWLsssC8YR OhfNFxI6XjCSQoJY8bwvit UXW9WZviMJPcVVD8FdQsVS Dzz8Fbuzw0VaApas5roy05 OEQ0c0XvaSmfFDZ2OXC2At OjOi2zfUKgHZIaHE6nBgCf sYVdCUOiiw36wTzpOXzlbb FylR2pPrRrSCWtoHCkOXJt YP9cgBNbEZWudY7jxqiqWN BnYnJkcmhlYWRccGdicmRy Yb6lxJyvYXI7BEtmC9qfpY 1gJlK2LCulP0dfcY6yFEp8 NPcxhGF1JEGniC2jYM7itv wpq1nmMStqBJvqQXZqkeS2 vkQ9JEGylPDdJ9YwoQ0jXJ BzOB1taijpp7hlAGN2SCsu IHMxOYM7GmZaUACtl7Intn w5VkMqr4GjdHYyJPxbD77h m139UZEgjwUoX5tkkYYwrr ysuPTcnawpWEyjtvW5EZNu XHBsYWluXGYxXGZzMjBcbG FuZzEwMzNcaGljaFxmMVxk WeCrBJRmECmkT1wvWaYlF2 YyXGZzMjBccGFyIEkgaGF2 YGBpCWEoj60noPb0JRYsil gqp7BkPEMjxOPyrKJizC2u vrCcp6osEJBhDQAgWEGvP4 HpPMZ7yYYgGIIohZSucYA8 YC3soyEzIS7iHBBcKixuyz AsyGVcslBhYPTuAXqtr4yc WY1eONFjkThghJ0oaGV7AQ Ozr7xxyQQznZMue6ade0Pc bmFtZShzKSBtYXkgYXBwZW NdZE3hTNBjzMOkbmCia7A5 JerncDZyiswaSjksthK8YK trcscwYGInDArgS1joOrHq EGBxgDqyEioyp9ZrKTNdIC ZzMjhccGFyfX0= Final Diagnosis Comment y9jsvJCsTRMwuKLpQGYdD9 (test code = eqfeSxQQMltJRpG6Pgvtrd 9235338852) KOhuKB5aEI5klHjtwEFwwP QpVQPuEwWxj5fyz334nHZx n2voBIFLubetsEy3dBwcY2 6zl7L2OojtI64wdPJcYHC2 DCMqINDabTIqKBInTAB7VJ ZpjBArO5zeEHJfEJ5xdvuj CGtzNKloHAYssRW6XSMcbM XoM0ZdSCBoZScuHKTqelg7 FsRyIn9gaDUdgNdzWJnnZM JkXHBsYWluXGZzMjAgRHIu ZWHcdISuRXRlhqB8oBH9LG TufAfdENFlp6JeUU9uBGYo erS7sqMjn6n1kBC1eRFoBR qbX79wm7lqEpXrERHrdq8= Clinical Information colitis (test code = 9287207623) Gross Description (test j3dhjYMpIQSxnQPIEJTxBO code = 8064741993) CcFW5wjHekoFq8oWdqEAIz aiN5oUSuRWvub6efWTK6y2 llbiANClxkZWZmMVxwYXBl tbltRdK3YItuZPPdkqdzAO n2KJueESHliDY8WKSgjDUo H0QtEATiLK2gwhx0NXL8HB toNXEeEkS6TAWjSaUsBbms EQt0OZTpbdK1Jkf5MWZhRS LnmSWzv3Z2YRjzelczHJDj gMAbF839RQwkt4EurFElAR pccGFyZCANCntcKlxlcGlj r6AlrBDpIYakPXHoRCKbGA zaercbIPt8UODfONpcpRYp QB6khNupNptstRiyx1JyzQ BcXGlkIDUxMDAyIFxcZGIg BU5TRrHyEPE6ZBixTsaaZL y9LAn7XY2MQvApYVKsYMEs OfS4LXRxFUt8PGnuDA2GBA N5QMJ5GFG4JHWxZWMrAmxs EWb2ZSByPTvaZCHswMDbUJ mgIvFgMCZyXSbtaTFqTL2x fVxwbGFpblxmczIwIFNQRU WRMDKEJASacSVrKW1EDCYm JRpzYBTxuRTRUVU8SA6kSU ANClxsdHJwYXJcbGluMFxy eG4tFR0PEDt2huZbFDBjAr SuG9OiQ3ztBB5gCPYmozTj PYIpoDTzYEAmtgXvi1KnCP nicnWcKQJteSypRKT2lBWh WSHzSNZtUFIwVN49DXkOIO MgbmFtZSwgVUggbnVtYmVy IGBgIGxhcmdlIGludGVzdG pkZCmfpXPgcOYkOZLjOR2h uB2vTHRvRM3wf60bUgevdC NmUMXbM3B8KEdWXIAgpdWh P29hf4eqrIKtb8PycYWqwI lwbGUgdGFuLXBpbmsgaXJy DUk0nWTqEMFeMuJdwVxew0 NkIEZkESpnPA75jsXdUE9l LTAuMyBjbSBncmVhdGVzdC SlfR1vddNfi66cYLJiLAA7 GZNfIOS5XMVjUUGoyUQjzt OhM4tvHKeneSDjRfBWyWXc t5JvM6onPJ2ypHVfXytopC RnECOpzBxmi9LorUWrAEMq d5QgrVUtHPvfTR7iBMB7Yz 5jcLJgEDXbtgO8k2TiWOib LHAeYzqalG0mGLswaU4rJD 1SLETsfTCQAIM1MQ3xBUh7 LPndYHFwW8NpD5MzuvKtrM TlAZYqdvKry3usBOR5AQDw wFKvjGMaBvSvNsybQML4NR DtCJguHY7Ho4ahLEJmeFUa ZYO6BPcheQVtITScPYJwZK yuGmAgV1JVNTHwRgf3YrR6 HSUgJRq6SSlvJ9MERWMmTD JhQgH8QLC6AsC3NPz3ELPN Vi4vVZC9CODkMyYmZEG6DC EzOSBcXHQgMiBcXGYgQXJp YWwgXFxmcyAxMCBcXGZsIF xqneV9HPFgGDrpTHZfFgHq T1PJU2zQYE4rCycvUMHsYA hwjBvypN6cVZHwT86ic7JN p8MrOY1NEPv0zbWygbwloB 3qLCDeueMdMIpapBFrZ4ir ZkKaZnGObKNptZ0rtzVLQL roHSXjO7HmgvXoNYczCBBb qs4szYqpJSgnBiUumFZmUZ dpdGggdGhlIHBhdGllbnRc R8C6ttUwGS4iWSSJJZQrtX 6hDYQpWROkiPHrK6EdxY85 VGU7aG4zSSHrfEwjb8ocUS LvfT8zRSDmFQ0qw86iPemt jTGcUXCkX3L6WEeXPBPosw KbI78mn3kufLDeq2WsaVPe dGlwbGUgdGFuLXllbGxvdy QunvTsC1CyRROff90lmYN6 tRLhfZPxJiIcF76cogPuBU qzPaIfUF2hIZOtLEstLMhn QME5IWV4HOAliSMmh9lnwd ubBJ4wBFzpSO77FJebVD7l GCGbKQxbIYSzD1FxD1P9EZ iuLBRzHCOowNHntE8cauPi ujAizGg3JDXvPYO1gWWsaT dnUGEoQkfppFQ2GQLzWvQs ifBxz8YoqYf1yPWkDPchVS ZngZ3gyE1nVaAeZJoxcfSn HOeygtFsNKtmZSOnE81xg5 XSp6UmOIKrp1fdeFpxc7Jd dGVuZFxwYXJccGFyZFxzbC 8cLdVbe9ifnKx9EQihwiD1 ONRdxk9egLbtqX7aXQb5SY ztHBAgD1TqM0KjUXuuGBO3 MTAwMiBcXGRiICBPVlIgIi LuTIF5WAV2NbA8JEp9RBSB XoOuAsCtGyXaSIY3EdblEQ d5HBx4PIvVYeNfSkY3RJJ6 KLQtAMR2EHF4FPpzkWDpMX xcZiBBcmlhbCBcXGZzIDEw QMdjQpykLDlpF39acKhcqC 2bJwGeTQUGBFKWDZ8MGxGO XHBhciANClxwbGFpblxlcG ljTmVzdERvYzEgDQpcbHRy cGFyXGxpbjBccmluMCANCl xsdHJjaFxmczIyIFNwZWNp gONoXYEzcSXnxlPlQLc0QS ZmxS7nLn5qoTCfoQ4shDYw RVfaBQGsc4z7tWL2oWAmmE B0eKCcyJfrIvNkBQ5zkCYh VGUSBZ03cFZthxUvSPZpQW Q4cA4sJHChblVkpOHeaX0i v4iyh8zgVyFvS6Y0NCGiJV Zar47phVV5skJeVsM1CEXv anKewlOiR5MzQNJdy07xkZ R0nFPsoKJvFbKnY99mecHk ONrcBcJhGR5fVSJtAGsfRO efRIT2LNY9PJDzwQGtg3ee ftjtSC37UNpoWO6uFBogRA 3vCNCiYSvmGVZeU2FiR9M1 RGtfJDSsOQUfoNUrmY4esx NfvjIvePn9SOEaUCH7eCEq oAftFBLcVtnohMX5VJNnPn XparKra6BsiXa7zRRuBCrv WRMzjA0bsY7jAjQrYKwjiw UgXGxpbmUgSnVsaWUgTWNJ iGvtpuO5UYPZZRFbPPHPSQ kNClxlcGljTmVzdERvYzBc wbC8PVSkpYXnVGB0YV4cUM VkcqdoHBRuPALkOWP2NXeb kW76sIJuUGGkQWTmuXBvpI jlxWWuzdKHEvicbN8jUzNn y8olyOt3XSLLLkktaRYwhp jiynF1JEIkf4wapDnsp4Zq tOCrLG5zbUscnX2lOuIrQe ANCn0= Disclaimer (test code = d3kbvGJrFYQmp8zbCGNobP [id number]) FuZzEwMzNcZnRuYmpcdWMx FVrevqSgGGpul8UzA5RfJg AwMFxhbnNpXGRlZmxhbmcx WLYhLFS2naKkBXDcOVkkSN ZsVIxnVq3wiOFynDbvKuXq SWElq2osorOKIHyrVsKcV3 56LOLmDWbxu7kpu5BvRURk oPHbo5T1ETUSysgoyVh9oX jgE61kf2P2SgjlO1tsMZGm IJKsA0KzVZ6tPYWoQsx2GJ D4CJK2AHZhHOLlU2XeGQ8l VCEfjXUpBVo7h9hnhQmqDU LqMLG5b6ziFDisifJoAC8b bs2zvHx6b8dulaQfTIVqZV NonIEDBLLjG8BbvFrmOu2o hWb5tHbbStnkTTU0Alx0IM 4zda24mlj8tWitKKIocojx GcH1DMbhEVWbwzoiOKq2GW wcZZNgyNY3ABQaxILiU0Uk XGBqTT8osbq2UJK2AGuxTC GoHoT0QIUeqMXzAVGfqEfq KPrpz497PMD3VfGzIK0dK3 Pdm2Q3uV9hqCLqRWPubESy UrIpGMLknq9oqDAcWOtic2 QlWHT4mqV1dHZfaTXxDHJb HC21Vxmda7DkJvczi1BiV1 2abTH9UFvxe1ghVM2bLxQ5 yuCtDMzim8kaqH9aLiW2TK ebXV7pYM0qXTWitG7yrbwf XHBnYnJkcmhlYWRccGdicm NoAq6fnZjrPPO7KVrpM0rg gZ6mMxU9FAmsU4blgG1bGA c6MRbxxOA6VFCedI1aJU8b wvait4wjOEfkOUinOUTqfo J6gyU2BYBmdHPbF6VuiU6q JMXcCP6vjxmet5vvUXG1HT njVDEsDLX9HaAgZZOka8Hj qro8AaFnd1IfqQNfXAmgJ7 3se190XJMpxcFpM4jsaSVy sdmiaUUumoboBQacozN9DV TskgGje5PnSBBnFTT5KCyu XIhsbBIkZWFwbHasy1tgO8 RscGFyXHBsYWluXGYxXGZz MjBcbGFuZzEwMzNcaGljaF kbYZmvGjZfIKKzWPnuC6qv NmWxE1YmPDTsXhLobSYxU2 ggVGhpcyByZXBvcnQgbWF5 NBvtA4q5TQOcypNgwTi3vj BrQkUjTHZtZKZ8GKmlhJFi WMLvv7XlievwsRQsBo0dhC UeDXNmnC7aBQAbUCGiZQgp PR0zmPk0CJQUwXAwxAXyKt PPWKRhCR57dlFrPGHRuhmr u7E7ADnzKNUqu0GcwYWkG0 nzq5NbRARag52gVA3dp4K5 u1bdTPD0LA4rw8WhCKKaiY AwpJYxXJNrg9Ogvhbjr4Bu PJLkumQsj2UgAWVaehInwU MhVRPxahFydp2hjbEuXZOw FMVhV3SovjlluMhfalItCR Lzfp5ctuBeRPW7XACMIQMt TMEeh2NekQ4thSBZXJN3mU Msso9pinZTrQQkLTJpzl26 BFPaBF8uM9ziGPTzVNHbyp RaoFUhe3EvBSZebWR2qHPq TV7KXsEEe02nDVPuWMGNri AqCVLrwCmgzAW9irR3mN9a IChGREEpLlx+IFRoZSBGRE QnXZ2zixIwf6BnrpIglUgi BOUqwIGck3WrdGAuy5YhgN hjh2AimUOueRJcIK8qMGDk clxwYXIgVVRNQiBMYWJvcm N4a9XnJRMrZVBaZSY3mZqg ywq9JMMrqH1kGRYoY2dvxm kwNLbrUNBdy7ShcD5ugIYU tLXwz9YcgFPteHCAdLUoXY 4xblLbZPjTEUgNFPW5ttPj XAAmn8CvZPgkY1pcS27ufZ zwvOk5dWA8MAN2rH3bYwx+ IFxwYXJccGFyIEFwcHJvcH CjESVpdXehbqDwE0CfrmLg uB7laKPqpiLwAU7xXU5hF5 E6kQAoEJBqqpOko8mfNZdl dmUgYmVlbiByZXZpZXdlZC Lfp0ElNBsyOWL9IWtoysUr bmNsdWRpbmcgSCZFLCBTcG SggJKhKUO8VMzrjySjyiWb XU8gbL8feBbvjP5bwCQtgA U6cqldUFFnAZEyrPmaYYDx RL8npLNnNIHnerOSnUyerN AokY0cQ0TfWQDcEFXnea4k TRFohT3eEBjik4HkamjuKZ JeHYJiCRHzcdZrez4dHPQi tLNZKT3MAAmiwBEqh7Idoa BuA0bWGAI3KOBqBrObHgrr IUBtiAWvgNEoVGEhlp25SB BqgG5krDseDNBvxW0sfK8r iTojaD0iPeIlLoZnGDszFU 3jJXPpM6vhnJStSMNxCEKq T1ruZhZdkP9xwGkdTQfxNm CeMoNgTOmhKPJ4jR== Embedded Images (test code = 9955603562) [facility] Culture - Peripheral # [id number] 20:01:59 Test Item Value Reference Range Interpretation Comments Blood Culture-Aerobic No organisms No growth Previo us (test code = 29519-0) isolated prelim inary verified result was Culture [...] Culture-Anaerobic isolated preliminar y (test code = 57685-8) verifi ed result was Culture In Progress [...] CDT Lab Interpretation Normal (test code = 27509-1) [facility] Culture - Peripheral # [id number] 20:01:59 Test Item Value Reference Range Interpretation Comments Blood Culture-Aerobic No organisms No growth Previo us (test code = 27965-9) isolated prelim inary verified result was Culture [...] Culture-Anaerobic isolated preliminar y (test code = 94940-2) verifi ed result was Culture In Progress [...] CDT Lab Interpretation Normal (test code = 51965-5) [facility] # [id number] 20:01:59 Test Item Value Reference Range Interpretation Comments Blood Culture-Aerobic No organisms No growth Previo us (test code = 88004-4) isolated prelim inary verified result was Culture [...] Culture-Anaerobic isolated preliminar y (test code = 98703-1) verifi ed result was Culture In Progress [...] CDT Lab Interpretation Normal (test code = 34877-9) [facility] # [id number] 20:01:59 Test Item Value Reference Range Interpretation Comments Blood Culture-Aerobic No organisms No growth Previo us (test code = 24027-2) isolated prelim inary verified result was Culture [...] Culture-Anaerobic isolated preliminar y (test code = 83330-2) verifi ed result was Culture In Progress [...] CDT Lab Interpretation Normal (test code = 43020-8) [facility]0500 Routine 2022-05-13 13:43:26 Test Item Value Reference Range Interpretation Comments ABO & RH (test code O Positive Performe d at [facility] = 20) Laboratory Serv [facility] [place], [place] [id number] Free: [phone] A No. [id number] IAT (test code = Negative Performed a t [facility] 1185) Laboratory Serv [facility] [place] [address]Bzft Free: [phone] A No. [id number] [facility]-0500 Routine 2022-05-13 13:43:26 Test Item Value Reference Range Interpretation Comments ABO & RH (test code O Positive Performe d at [facility] = 20) Laboratory Serv [facility] [place] [phone] Free: [phone] A No. [id number] IAT (test code = Negative Performed a t [facility] 1185) Laboratory Serv [facility] [place] [phone] Free: [phone] A No. [id number] [facility], [id number] 22:16:10 Test Item Value Reference Range Interpretation Comments VIT B12 (test code = 603 pg/mL 240-930 [id number]) ROBERTO (test code = ROBERTO) Biotin has been reported to cause a positive bias, interpret results relative to patient's use of biotin. Lab Interpretation (test Normal code = 09915-8) [facility], [id number] 22:16:10 Test Item Value Reference Range Interpretation Comments VIT B12 (test code = 603 pg/mL 240-930 [id number]) ROBERTO (test code = ROBERTO) Biotin has been reported to cause a positive bias, interpret results relative to patient's use of biotin. Lab Interpretation (test Normal code = 09364-8) [facility] D, [id number] 21:50:29 Test Item Value Reference Range Interpretation Comments VIT D 25OH (test code = 25-80 L 97904-4) ROBERTO (test code = ROBERTO) Deficiency: <20 ng/mLInsufficiency: 20-24 ng/mLOptimal: 25-80 ng/mL Lab Interpretation (test Abnormal code = 26785-2) [facility], [id number] 21:50:29 Test Item Value Reference Range Interpretation Comments VIT D 25OH (test code = 25-80 L 91693-8) ROBERTO (test code = ROBERTO) Deficiency: <20 ng/mLInsufficiency: 20-24 ng/mLOptimal: 25-80 ng/mL Lab Interpretation (test Abnormal code = 65057-0) [facility] [id number] 18:56:01 Test Item Value Reference Range Interpretation Comments CRP (test code = 0.9 mg/dL See_Comment H [Automated message] [id number]) The system [employer] generated this result transmit eunice reference range : <=0.8. The refe rence range was not u sed to interpret th is result as normal/abnormal . Lab Interpretation (test Abnormal code = 27276-3) [facility] [id number] 18:56:01 Test Item Value Reference Range Interpretation Comments CRP (test code = 0.9 mg/dL See_Comment H [Automated message] [id number]) The system [employer] generated this result transmit eunice reference range : <=0.8. The refe rence range was not u sed to interpret th is result as normal/abnormal . Lab Interpretation (test Abnormal code = 26324-4) [facility] Center[facility] STIMULATING [id number] 13:43:08 Test Item Value Reference Range Interpretation Comments TSH (test code = See_Comment H [Automated message] [id number]) The system [employer] generated this result transmitted ref erence range: 0.45 - 4 .70 mIU/L. The refe rence range was not u sed to interpret this result as normal/abnor mal. Lab Interpretation (test Abnormal code = 54357-7) [facility] Center[facility] [id number] 13:43:08 Test Item Value Reference Range Interpretation Comments TSH (test code = See_Comment H [Automated message] [id number]) The system [employer] generated this result transmitted ref erence range: 0.45 - 4 .70 mIU/L. The refe rence range was not u sed to interpret this result as normal/abnor mal. Lab Interpretation (test Abnormal code = 10428-7) [facility]AL [id number] 13:21:44 Test Item Value Reference Range Interpretation Comments NT-proBNP (test code 54 pg/mL See_Comment [Autom ated = [id number]) message] The system which generated this result transmitted reference range : <=125. The reference range was not used to interpret this result as normal/abnormal . ROBERTO (test code = ROBERTO) Biotin has been reported to cause a negative bias, interpret results relative to patient's use of biotin. Lab Interpretation Normal (test code = 75943-9) [facility] [id number] 13:21:44 Test Item Value Reference Range Interpretation Comments NT-proBNP (test code 54 pg/mL See_Comment [Autom ated = [id number]) message] The system which generated this result transmitted reference range : <=125. The reference range was not used to interpret this result as normal/abnormal . ROBERTO (test code = ROBERTO) Biotin has been reported to cause a negative bias, interpret results relative to patient's use of biotin. Lab Interpretation Normal (test code = 90297-5) [facility] CenterLIP[facility] (82353)(TOTAL CHOLESTEROL, TRIGLYCERIDES, HDL)2022-05-12 13:12:48 Test Item Value Reference Range Interpretation Comments CHOL (test code = 124 mg/dL 120-200 [id number]) HDL (test code = 27 mg/dL See_Comment L [Automated message] [id number]) The system [employer] generated this result transmit eunice reference range : >=40. The refer ence range was not u sed to interpret th is result as normal/abnormal . HDLC RATIO (test code = See_Comment [Au tomated message] [id number]) The system [employer] generated this result transmit eunice reference range : <=5.0. The refe rence range was not u sed to interpret th is result as normal/abnormal . TRIG (test code = 104 mg/dL 30-170 5869232640) LDL CHOL (test code = 76 mg/dL See_Comment [Auto mated message] 48604-1) The system [employer] generated this result transmit eunice reference range : <=160. The refe rence range was not u sed to interpret th is result as normal/abnormal . VLDL (test code = 21 mg/dL 5-60 [id number]) Lab Interpretation (test Abnormal code = 21076-6) [facility] (82002)(TOTAL CHOLESTEROL, TRIGLYCERIDES, HDL)2022-05-12 13:12:48 Test Item Value Reference Range Interpretation Comments CHOL (test code = 124 mg/dL 120-200 [id number]) HDL (test code = 27 mg/dL See_Comment L [Automated message] [id number]) The system [employer] generated this result transmit eunice reference range : >=40. The refer ence range was not u sed to interpret th is result as normal/abnormal . HDLC RATIO (test code = See_Comment [Au tomated message] [id number]) The system [employer] generated this result transmit eunice reference range : <=5.0. The refe rence range was not u sed to interpret th is result as normal/abnormal . TRIG (test code = 104 mg/dL 30-170 2067933570) LDL CHOL (test code = 76 mg/dL See_Comment [Auto mated message] 89127-4) The system [employer] generated this result transmit eunice reference range : <=160. The refe rence range was not u sed to interpret th is result as normal/abnormal . VLDL (test code = 21 mg/dL 5-60 [id number]) Lab Interpretation (test Abnormal code = 63926-3) [facility]:12:47 Test Item Value Reference Range Interpretation Comments MAGNESIUM (test code = 2477021184) 1.8 mg/dL 1.7-2.4 Lab Interpretation (test code = Normal 94410-4) [facility] 13:12:47 Test Item Value Reference Range Interpretation Comments MAGNESIUM (test code = 6747358399) 1.8 mg/dL 1.7-2.4 Lab Interpretation (test code = Normal 17751-5) [facility]. METABOLIC PANEL (08694)2022-05-12 13:12:27 Test Item Value Reference Range Interpretation Comments NA (test code = 139 mmol/L 135-145 7796071131) K (test code = 3.5 mmol/L 3.5-5 5665831134) CL (test code = 106 mmol/L 98-108 6306429937) CO2 TOTAL (test code = 27 mmol/L 23-31 1917559072) AGAP (test code = 2-16 9089266710) BUN (test code = 7 mg/dL 7-23 4242924958) GLUCOSE (test code = 87 mg/dL 70-110 7364210852) CREATININE (test code = 0.89 mg/dL 0.6-1.25 6245098969) TOTAL BILI (test code = 0.3 mg/dL 0.1-1.2 2897478527) CALCIUM (test code = 8.4 mg/dL 8.6-10.6 L 7005521545) T PROTEIN (test code = 6.7 g/dL 6.3-8.2 4427859268) ALBUMIN (test code = 3.5 g/dL 3.5-5 9374532072) ALK PHOS (test code = 81 U/L 34-122 2943721061) ALTv (test code = 13 U/L 5-50 1742-6) AST(SGOT) (test code = 22 U/L 13-40 8955016724) eGFR (test code = mL/min/1.73m2 2954917231) ROBERTO (test code = ROBERTO) Association of [...] tests). Lab Interpretation Abnormal (test code = 94311-8) [facility]12[facility]27 Test Item Value Reference Range Interpretation Comments PHOSPHORUS (test code = 2322202680) 3.8 mg/dL 2.5-5 Lab Interpretation (test code = Normal 44595-7) [facility]. METABOLIC PANEL ([id number])2022-05-12 13:12:27 Test Item Value Reference Range Interpretation Comments NA (test code = 139 mmol/L 135-145 1005559746) K (test code = 3.5 mmol/L 3.5-5 0729969528) CL (test code = 106 mmol/L 98-108 3537124623) CO2 TOTAL (test code = 27 mmol/L 23-31 3267324555) AGAP (test code = 2-16 2897578176) BUN (test code = 7 mg/dL 7-23 7395409564) GLUCOSE (test code = 87 mg/dL 70-110 0351695714) CREATININE (test code = 0.89 mg/dL 0.6-1.25 2937775944) TOTAL BILI (test code = 0.3 mg/dL 0.1-1.5 8183485265) CALCIUM (test code = 8.4 mg/dL 8.6-10.6 L 5168875720) T PROTEIN (test code = 6.7 g/dL 6.3-8.2 1041275215) ALBUMIN (test code = 3.5 g/dL 3.5-5 1138193414) ALK PHOS (test code = 81 U/L 34-122 6774517463) ALTv (test code = 13 U/L 5-50 1742-6) AST(SGOT) (test code = 22 U/L 13-40 8600313468) eGFR (test code = mL/min/1.73m2 2432372119) ROBERTO (test code = ROBERTO) Association of [...] tests). Lab Interpretation Abnormal (test code = 84400-0) [facility]:12[facility]27 Test Item Value Reference Range Interpretation Comments PHOSPHORUS (test code = 6726047053) 3.8 mg/dL 2.5-5 Lab Interpretation (test code = Normal 06549-5) [facility] acute hospital WITH [id number] 13:09:25 Test Item Value Reference Range Interpretation [...] RDW-SD (test code = 39.2 fL 38.5-51.6 40776-1) RDW-CV (test code = 14.7 % 12.1-15.4 788-0) PLT (test code = See_Comment H [Automated 777-3) message] The sy stem which generated this result transmitted reference range : 150 - 328 10*3/ ?L. The reference r carlota was not used to interpret this result as normal/abnormal . MPV (test code = 10.1 fL 9.8-13 05687-7) NRBC/100 WBC (test See_Comment [Automat ed code = 0128549087) message] The system which generated this result transmitted reference range : 0.0 - 10.0 /100 WBCs. The refer ence range was not u sed to interpret th is result as normal/abnormal . NRBC x10^3 (test code See_Comment [Auto mated = 8253774890) message] The s ystem which generated this result transmitted reference range : 10*3/?L. The reference range was not used to interpret this result as normal/abnormal . GRAN MAT (NEUT) % 46.1 % (test code = 770-8) IMM GRAN % (test code 0.10 % = 2677892929) LYMPH % (test code = 33.9 % 736-9) MONO % (test code = 11.8 % 5905-5) EOS % (test code = 6.3 % 713-8) BASO % (test code = 1.8 % 706-2) GRAN MAT x10^3(ANC) 3.27 10*3/uL 1.99-6.95 (test code = 0548595502) IMM GRAN x10^3 (test 0-0.06 code = 6379386734) LYMPH x10^3 (test code 2.41 10*3/uL 1.09-3.23 = 731-0) MONO x10^3 (test code 0.84 10*3/uL 0.36-1.02 = 742-7) EOS x10^3 (test code = 0.45 10*3/uL 0.06-0.53 711-2) BASO x10^3 (test code 0.13 10*3/uL 0.01-0.09 H = 704-7) Lab Interpretation Abnormal (test code = 03540-3) [facility] acute hospital WITH [id number] 13:09:25 Test Item Value Reference Range Interpretation [...] RDW-SD (test code = 39.2 fL 38.5-51.6 10459-2) RDW-CV (test code = 14.7 % 12.1-15.4 788-0) PLT (test code = See_Comment H [Automated 777-3) message] The sy stem which generated this result transmitted reference range : 150 - 328 10*3/ ?L. The reference r carlota was not used to interpret this result as normal/abnormal . MPV (test code = 10.1 fL 9.8-13 62380-8) NRBC/100 WBC (test See_Comment [Automat ed code = 7281807636) message] The system which generated this result transmitted reference range : 0.0 - 10.0 /100 WBCs. The refer ence range was not u sed to interpret th is result as normal/abnormal . NRBC x10^3 (test code See_Comment [Auto mated = 9313815831) message] The s ystem which generated this result transmitted reference range : 10*3/?L. The reference range was not used to interpret this result as normal/abnormal . GRAN MAT (NEUT) % 46.1 % (test code = 770-8) IMM GRAN % (test code 0.10 % = 2428854037) LYMPH % (test code = 33.9 % 736-9) MONO % (test code = 11.8 % 5905-5) EOS % (test code = 6.3 % 713-8) BASO % (test code = 1.8 % 706-2) GRAN MAT x10^3(ANC) 3.27 10*3/uL 1.99-6.95 (test code = 0620671600) IMM GRAN x10^3 (test 0-0.06 code = 5260214599) LYMPH x10^3 (test code 2.41 10*3/uL 1.09-3.23 = 731-0) MONO x10^3 (test code 0.84 10*3/uL 0.36-1.02 = 742-7) EOS x10^3 (test code = 0.45 10*3/uL 0.06-0.53 711-2) BASO x10^3 (test code 0.13 10*3/uL 0.01-0.09 H = 704-7) Lab Interpretation Abnormal (test code = 62787-1) [facility] / [id number] 13:06:44 Test Item Value Reference Range Interpretation Comments PROTIME PATIENT (test See_Comment H [Auto mated message] code = 5964-2) The system [employer] generated this result transmitted ref erence range: 12.0 - 1 4.7 Seconds. The reference range was not used to int erpret this result as normal/abnormal . INR (test code = 6301-6) Nor mal INR <1.1; Warfarin Therap eutic range 2.0 to 3. 0 or 2.5 to 3.5, dep ending upon the indica tions. Lab Interpretation (test Abnormal code = 36491-4) [facility] / [id number] 13:06:44 Test Item Value Reference Range Interpretation Comments PROTIME PATIENT (test See_Comment H [Auto mated message] code = 5964-2) The system [employer] generated this result transmitted ref erence range: 12.0 - 1 4.7 Seconds. The reference range was not used to int erpret this result as normal/abnormal . INR (test code = 6301-6) Nor mal INR <1.1; Warfarin Therap eutic range 2.0 to 3. 0 or 2.5 to 3.5, dep ending upon the indica tions. Lab Interpretation (test Abnormal code = 47590-6) [facility] [id number] 02:59:10 Test Item Value Reference Range Interpretation Comments ESR (test code = See_Comment H [Automated message] 21618-6) The system [employer] generated this result transmitted ref erence range: 0 - 10 m m/HR. The reference r carlota was not used to interpret this result as normal/abnor mal. Lab Interpretation (test Abnormal code = 07066-9) [facility] [id number] 02:59:10 Test Item Value Reference Range Interpretation Comments ESR (test code = See_Comment H [Automated message] 48652-3) The system [employer] generated this result transmitted ref erence range: 0 - 10 m m/HR. The reference r carlota was not used to interpret this result as normal/abnor mal. Lab Interpretation (test Abnormal code = 77961-2) [facility] (A1C)2022-05-12 02:20:40 Test Item Value Reference Range Interpretation Comments HGB A1C (test code = 6.1 % 4-5.7 H 4548-4) ROBERTO (test code = ROBERTO) Reference RangesNormal: <5.7%Prediabetes: 5.7 - 6.4%Diabetes: > 6.5% Lab Interpretation (test Abnormal code = 03521-1) [facility] (A1C)2022-05-12 02:20:40 Test Item Value Reference Range Interpretation Comments HGB A1C (test code = 6.1 % 4-5.7 H 4548-4) ROBERTO (test code = ROBERTO) Reference RangesNormal: <5.7%Prediabetes: 5.7 - 6.4%Diabetes: > 6.5% Lab Interpretation (test Abnormal code = 61811-6) [facility]OLIC PANEL (15931)2022-05-11 19:45:12 Test Item Value Reference Range Interpretation Comments NA (test code = 139 mmol/L 135-145 4101543267) K (test code = 4.1 mmol/L 3.5-5 5112597703) CL (test code = 105 mmol/L 98-108 5394780317) CO2 TOTAL (test code 24 mmol/L 23-31 = 2107894813) AGAP (test code = 2-16 8057301837) BUN (test code = 8 mg/dL 7-23 5009129620) GLUCOSE (test code = 84 mg/dL 70-110 2816766006) CREATININE (test code 0.93 mg/dL 0.6-1.25 = 5865150852) TOTAL BILI (test code 0.3 mg/dL 0.1-1.1 = 5378619895) CALCIUM (test code = 9.4 mg/dL 8.6-10.6 5843466986) T PROTEIN (test code 7.3 g/dL 6.3-8.2 = 7451547482) ALBUMIN (test code = 4.0 g/dL 3.5-5 4951708731) ALK PHOS (test code = 85 U/L 34-122 7010123652) ALTv (test code = 14 U/L 5-50 1742-6) AST(SGOT) (test code 21 U/L 13-40 = 2270125347) eGFR (test code = mL/min/1.73m2 6741296323) ROBERTO (test code = ROBERTO) Association of [...] or abnormalities in imaging tests). [facility]. METABOLIC PANEL (04403)2022-05-11 19:45:12 Test Item Value Reference Range Interpretation Comments NA (test code = 139 mmol/L 135-145 5630940459) K (test code = 4.1 mmol/L 3.5-5 9158636795) CL (test code = 105 mmol/L 98-108 3530412346) CO2 TOTAL (test code 24 mmol/L 23-31 = 1787551239) AGAP (test code = 2-16 8583514903) BUN (test code = 8 mg/dL 7-23 7743993346) GLUCOSE (test code = 84 mg/dL 70-110 6080703464) CREATININE (test code 0.93 mg/dL 0.6-1.25 = 3720307898) TOTAL BILI (test code 0.3 mg/dL 0.1-1.1 = 8873828881) CALCIUM (test code = 9.4 mg/dL 8.6-10.6 2937576112) T PROTEIN (test code 7.3 g/dL 6.3-8.2 = 0429752546) ALBUMIN (test code = 4.0 g/dL 3.5-5 4379198584) ALK PHOS (test code = 85 U/L 34-122 2358441680) ALTv (test code = 14 U/L 5-50 1742-6) AST(SGOT) (test code 21 U/L 13-40 = 0278733064) eGFR (test code = mL/min/1.73m2 9697052186) ROBERTO (test code = ROBERTO) Association of [...] or urine or abnormalities in imaging tests). [facility] 19:44:31 Test Item Value Reference Range Interpretation Comments LIPASE (test code = 2484816158) 116 U/L 0-220 Lab Interpretation (test code = Normal 77535-2) [facility] 19:44:31 Test Item Value Reference Range Interpretation Comments LIPASE (test code = 1988622591) 116 U/L 0-220 Lab Interpretation (test code = Normal 70586-0) [facility] CenterCB WITH [id number] 19:33:50 Test Item Value Reference Range Interpretation Comments WBC (test code = See_Comment [Automated 0411-2) message] The sy stem which generated this [...] RDW-SD (test code = 38.9 fL 38.5-51.6 52994-2) RDW-CV (test code = 14.7 % 12.1-15.4 788-0) PLT (test code = See_Comment H [Automated 777-3) message] The sy stem which generated this result transmitted reference range : 150 - 328 10*3/ ?L. The reference r carlota was not used to interpret this result as normal/abnormal . MPV (test code = 10.1 fL 9.8-13 64306-8) NRBC/100 WBC (test See_Comment [Automat ed code = 3515165950) message] The system which generated this result transmitted reference range : 0.0 - 10.0 /100 WBCs. The refer ence range was not u sed to interpret th is result as normal/abnormal . NRBC x10^3 (test code See_Comment [Auto mated = 4291456644) message] The s ystem which generated this result transmitted reference range : 10*3/?L. The reference range was not used to interpret this result as normal/abnormal . GRAN MAT (NEUT) % 50.3 % (test code = 770-8) IMM GRAN % (test code 0.00 % = 7080536383) LYMPH % (test code = 28.7 % 736-9) MONO % (test code = 13.9 % 5905-5) EOS % (test code = 5.3 % 713-8) BASO % (test code = 1.8 % 706-2) GRAN MAT x10^3(ANC) 3.14 10*3/uL 1.99-6.95 (test code = 8653488257) IMM GRAN x10^3 (test 0-0.06 code = 6311185352) LYMPH x10^3 (test code 1.79 10*3/uL 1.09-3.23 = 731-0) MONO x10^3 (test code 0.87 10*3/uL 0.36-1.02 = 742-7) EOS x10^3 (test code = 0.33 10*3/uL 0.06-0.53 711-2) BASO x10^3 (test code 0.11 10*3/uL 0.01-0.09 H = 704-7) Lab Interpretation Abnormal (test code = 28314-8) General acute hospital WITH [id number] 19:33:50 Test Item Value Reference Range Interpretation Comments WBC (test code = See_Comment [Automated 7590-2) message] The sy stem which generated this result transmitted reference range : 4.20 - 10.70 10*3/?L. The reference range was not used to interpret this result as normal/abnormal . RBC (test code = See_Comment [Automated 839-8) message] The sy stem which generated this [...] RDW-SD (test code = 38.9 fL 38.5-51.6 88859-2) RDW-CV (test code = 14.7 % 12.1-15.4 788-0) PLT (test code = See_Comment H [Automated 807-3) message] The sy stem which generated this result transmitted reference range : 150 - 328 10*3/ ?L. The reference r carlota was not used to interpret this result as normal/abnormal . MPV (test code = 10.1 fL 9.8-13 48654-2) NRBC/100 WBC (test See_Comment [Automat ed code = 4231772954) message] The system which generated this result transmitted reference range : 0.0 - 10.0 /100 WBCs. The refer ence range was not u sed to interpret th is result as normal/abnormal . NRBC x10^3 (test code See_Comment [Auto mated = 1242324510) message] The s ystem which generated this result transmitted reference range : 10*3/?L. The reference range was not used to interpret this result as normal/abnormal . GRAN MAT (NEUT) % 50.3 % (test code = 770-8) IMM GRAN % (test code 0.00 % = 5675289873) LYMPH % (test code = 28.7 % 736-9) MONO % (test code = 13.9 % 5905-5) EOS % (test code = 5.3 % 713-8) BASO % (test code = 1.8 % 706-2) GRAN MAT x10^3(ANC) 3.14 10*3/uL 1.99-6.95 (test code = 7658092859) IMM GRAN x10^3 (test 0-0.06 code = 8383815954) LYMPH x10^3 (test code 1.79 10*3/uL 1.09-3.23 = 731-0) MONO x10^3 (test code 0.87 10*3/uL 0.36-1.02 = 742-7) EOS x10^3 (test code = 0.33 10*3/uL 0.06-0.53 711-2) BASO x10^3 (test code 0.11 10*3/uL 0.01-0.09 H = 704-7) Lab Interpretation Abnormal (test code = 61337-8) [facility] - ONCE [id number] 03:41:38 Test Item Value Reference Range Interpretation Comments ABO & RH (test code O Positive Performe d at [facility] = 20) Laboratory Serv [facility] [address] [place] [phone] Free: [phone] A No. [id number] IAT (test code = Negative Performed a t [facility] 1185) Laboratory Serv [facility] [address] [place] [phone] Free: [phone] A No. [id number] [facility]. MET[facility]OLIC PANEL (30896)2022-05-10 03:15:48 Test Item Value Reference Range Interpretation Comments NA (test code = 135 mmol/L 135-145 3015646331) K (test code = 4.2 mmol/L 3.5-5 9932046763) CL (test code = 104 mmol/L 98-108 6814098199) CO2 TOTAL (test code = 23 mmol/L 23-31 3420360845) AGAP (test code = 2-16 0849969764) BUN (test code = 9 mg/dL 7-23 6166762113) GLUCOSE (test code = 100 mg/dL 70-110 3598866515) CREATININE (test code = 0.89 mg/dL 0.6-1.25 6060095702) TOTAL BILI (test code = 0.3 mg/dL 0.1-1.8 3064542605) CALCIUM (test code = 8.5 mg/dL 8.6-10.6 L 7670815530) T PROTEIN (test code = 6.6 g/dL 6.3-8.2 7832709219) ALBUMIN (test code = 3.6 g/dL 3.5-5 1667077896) ALK PHOS (test code = 80 U/L 34-122 0024254794) ALTv (test code = 13 U/L 5-50 1742-6) AST(SGOT) (test code = 22 U/L 13-40 8644627453) eGFR (test code = mL/min/1.73m2 8775953168) ROBERTO (test code = ROBERTO) Association of [...] tests). Lab Interpretation Abnormal (test code = 76269-6) [facility] 03:15:08 Test Item Value Reference Range Interpretation Comments LIPASE (test code = 1644306270) 105 U/L 0-220 Lab Interpretation (test code = Normal 47585-8) General acute hospital WITH [id number] 03:02:08 Test Item Value Reference Range Interpretation Comments WBC (test code = See_Comment [Automated 2957-2) message] The sy stem which generated this result transmitted reference range : 4.20 - 10.70 10*3/?L. The reference range was not used to interpret this result as normal/abnormal . RBC (test code = See_Comment L [Automated 847-2) message] The sy stem which generated this [...] (test code = 38.0 fL 38.5-51.6 L 33059-2) RDW-CV (test code = 14.9 % 12.1-15.4 788-0) PLT (test code = See_Comment H [Automated 777-3) message] The sy stem which generated this result transmitted reference range : 150 - 328 10*3/ ?L. The reference r carlota was not used to interpret this result as normal/abnormal . MPV (test code = 9.8 fL 9.8-13 91905-2) NRBC/100 WBC (test See_Comment [Automat ed code = 2279465151) message] The system which generated this result transmitted reference range : 0.0 - 10.0 /100 WBCs. The refer ence range was not u sed to interpret th is result as normal/abnormal . NRBC x10^3 (test code See_Comment [Auto mated = 0178974042) message] The s ystem which generated this result transmitted reference range : 10*3/?L. The reference range was not used to interpret this result as normal/abnormal . GRAN MAT (NEUT) % 51.8 % (test code = 770-8) IMM GRAN % (test code 0.40 % = 5679713239) LYMPH % (test code = 29.9 % 736-9) MONO % (test code = 10.2 % 5905-5) EOS % (test code = 5.8 % 713-8) BASO % (test code = 1.9 % 706-2) GRAN MAT x10^3(ANC) 4.17 10*3/uL 1.99-6.95 (test code = 9341013946) IMM GRAN x10^3 (test 0.03 10*3/uL 0-0.06 code = 2299005234) LYMPH x10^3 (test code 2.41 10*3/uL 1.09-3.23 = 731-0) MONO x10^3 (test code 0.82 10*3/uL 0.36-1.02 = 742-7) EOS x10^3 (test code = 0.47 10*3/uL 0.06-0.53 711-2) BASO x10^3 (test code 0.15 10*3/uL 0.01-0.09 H = 704-7) Lab Interpretation Abnormal (test code = 31087-5) [facility]-REACTIVE [id number] 14:20:24 Test Item Value Reference Range Interpretation Comments CRP (test code = 1.3 mg/dL See_Comment H [Automated message] 2475451241) The system [employer] generated this result transmit eunice reference range : <=0.8. The refe rence range was not u sed to interpret th is result as normal/abnormal . Lab Interpretation (test Abnormal code = 31893-7) [facility] METABOLIC PANEL (NA, K, CL, CO2, GLUCOSE, BUN, CREATININE, CA)2022-04-28 11:21:59 Test Item Value Reference Range Interpretation Comments NA (test code = 134 mmol/L 135-145 L 9380683141) K (test code = 3.9 mmol/L 3.5-5 8220094260) CL (test code = 105 mmol/L 98-108 9614321947) CO2 TOTAL (test code = 26 mmol/L 23-31 6645579456) AGAP (test code = 2-16 9525741542) BUN (test code = 5 mg/dL 7-23 L 3017193279) GLUCOSE (test code = 76 mg/dL 70-110 8880260615) CREATININE (test code = 0.88 mg/dL 0.6-1.25 7674865528) CALCIUM (test code = 8.2 mg/dL 8.6-10.6 L 8474183706) eGFR (test code = mL/min/1.73m2 3772184509) ROBERTO (test code = ROBERTO) Association of [...] tests). Lab Interpretation Abnormal (test code = 00958-8) General acute hospital WITH [id number] 11:21:23 Test Item Value Reference Range Interpretation Comments WBC (test code = See_Comment [Automated 1390-2) message] The sy stem which generated this result transmitted reference range : 4.20 - 10.70 10*3/?L. The reference range was not used to interpret this result as normal/abnormal . RBC (test code = See_Comment L [Automated 249-8) message] The sy stem which generated this [...] RDW-SD (test code = 40.4 fL 38.5-51.6 76282-3) RDW-CV (test code = 15.3 % 12.1-15.4 788-0) PLT (test code = See_Comment H [Automated 777-3) message] The sy stem which generated this result transmitted reference range : 150 - 328 10*3/ ?L. The reference r carlota was not used to interpret this result as normal/abnormal . MPV (test code = 9.8 fL 9.8-13 62499-5) NRBC/100 WBC (test See_Comment [Automat ed code = 9235723244) message] The system which generated this result transmitted reference range : 0.0 - 10.0 /100 WBCs. The refer ence range was not u sed to interpret th is result as normal/abnormal . NRBC x10^3 (test code See_Comment [Auto mated = 5351331521) message] The s ystem which generated this result transmitted reference range : 10*3/?L. The reference range was not used to interpret this result as normal/abnormal . GRAN MAT (NEUT) % 51.9 % (test code = 770-8) IMM GRAN % (test code 0.50 % = 2420678410) LYMPH % (test code = 25.7 % 736-9) MONO % (test code = 17.4 % 5905-5) EOS % (test code = 3.2 % 713-8) BASO % (test code = 1.3 % 706-2) GRAN MAT x10^3(ANC) 3.09 10*3/uL 1.99-6.95 (test code = 5237063699) IMM GRAN x10^3 (test 0.03 10*3/uL 0-0.06 code = 2301973456) LYMPH x10^3 (test code 1.53 10*3/uL 1.09-3.23 = 731-0) MONO x10^3 (test code 1.04 10*3/uL 0.36-1.02 H = 742-7) EOS x10^3 (test code = 0.19 10*3/uL 0.06-0.53 711-2) BASO x10^3 (test code 0.08 10*3/uL 0.01-0.09 = 704-7) Lab Interpretation Abnormal (test code = 64548-7) [facility] 11:17:00 Test Item Value Reference Range Interpretation Comments MAGNESIUM (test code = 5358185061) 1.7 mg/dL 1.7-2.4 Lab Interpretation (test code = Normal 43929-8) [facility] CenterABORH Confirmation (Lab Only)2022-04-27 17:22:22 Test Item Value Reference Range Interpretation Comments ABO & RH (test code O Positive Performe d at [facility] = 20) Laboratory Serv [facility] [place] [address] Free: [phone] A No. [id number] [facility] - ONCE [id number] 16:14:13 Test Item Value Reference Range Interpretation Comments ABO & RH (test code O Positive Performe d at [facility] = 20) Laboratory [facility] [place], [place] [address]Toll Free: [phone] A No. [id number] IAT (test code = Negative Performed a t [facility] 1185) Laboratory [facility] [place], [place] [address]Toll Free: [phone] A No. [id number] [facility] CenterACTIVATED PARTIAL THRMPLAS [id number] 16:10:24 Test Item Value Reference Range Interpretation Comments APTT Patient (test See_Comment [Automat ed code = 3173-2) message] The system which generated this result transmitted reference range : 23 - 38 Seconds . The reference range was not used to interpr et this result as normal/abnormal . ROBERTO (test code = ROBERTO) The [facility] patient population mean normal value for aPTT is 30 seconds. Lab Interpretation Normal (test code = 34816-5) [facility] CenterProthrombin Time / [id number] 16:08:28 Test Item Value Reference Range Interpretation [...] tions. Lab Interpretation (test Normal code = 32876-0) [facility] CenterTROPONIN [id number] 15:53:25 Test Item Value Reference Interpretation Comments Range TROPONIN I (test See_Comment [Automated code = 5202985464) message] The system which generated this result [...] biotin. Lab Interpretation Normal (test code = 94948-3) [facility]. METABOLIC PANEL (30331)2022-04-27 15:42:03 Test Item Value Reference Range Interpretation Comments NA (test code = 139 mmol/L 135-145 2891773501) K (test code = 4.1 mmol/L 3.5-5 0415973607) CL (test code = 105 mmol/L 98-108 9307864298) CO2 TOTAL (test code = 27 mmol/L 23-31 7598415782) AGAP (test code = 2-16 9764987666) BUN (test code = 6 mg/dL 7-23 L 8324560121) GLUCOSE (test code = 96 mg/dL 70-110 1999641129) CREATININE (test code = 0.87 mg/dL 0.6-1.25 5814152371) TOTAL BILI (test code = 0.3 mg/dL 0.1-1.8 7389752096) CALCIUM (test code = 9.1 mg/dL 8.6-10.6 3751950943) T PROTEIN (test code = 6.9 g/dL 6.3-8.2 3660053809) ALBUMIN (test code = 3.6 g/dL 3.5-5 8573301145) ALK PHOS (test code = 89 U/L 34-122 0992850646) ALTv (test code = 12 U/L 5-50 1742-6) AST(SGOT) (test code = 17 U/L 13-40 4070265567) eGFR (test code = mL/min/1.73m2 7925172926) ROBERTO (test code = ROBERTO) Association of [...] tests). Lab Interpretation Abnormal (test code = 75480-4) [facility] Test Item Value Reference Range Interpretation Comments MAGNESIUM (test code = 0766783958) 1.9 mg/dL 1.7-2.4 Lab Interpretation (test code = Normal 98770-6) [facility] Test Item Value Reference Range Interpretation Comments LIPASE (test code = 2336423769) 115 U/L 0-220 Lab Interpretation (test code = Normal 19866-5) [facility] [id number] 15:32:42 Test Item Value Reference Range Interpretation Comments WBC (test code = See_Comment [Automated 6690-2) message] The sy stem which generated this result transmitted reference range : 4.20 - 10.70 10*3/?L. The reference range was not used to interpret this result as normal/abnormal . RBC (test code = See_Comment [Automated 609-8) message] The sy stem which [...] RDW-SD (test code = 39.8 fL 38.5-51.6 21460-6) RDW-CV (test code = 15.1 % 12.1-15.4 788-0) PLT (test code = See_Comment H [Automated 777-3) message] The sy stem which generated this result transmitted reference range : 150 - 328 10*3/ ?L. The reference r carlota was not used to interpret this result as normal/abnormal . MPV (test code = 9.5 fL 9.8-13 L 02895-2) NRBC/100 WBC (test See_Comment [Automat ed code = 8991982110) message] The system which generated this result transmitted reference range : 0.0 - 10.0 /100 WBCs. The refer ence range was not u sed to interpret th is result as normal/abnormal . NRBC x10^3 (test code See_Comment [Auto mated = 9244183381) message] The s ystem which generated this result transmitted reference range : 10*3/?L. The reference range was not used to interpret this result as normal/abnormal . GRAN MAT (NEUT) % 51.9 % (test code = 770-8) IMM GRAN % (test code 0.30 % = 8467939848) LYMPH % (test code = 31.1 % 736-9) MONO % (test code = 13.0 % 5905-5) EOS % (test code = 2.5 % 713-8) BASO % (test code = 1.2 % 706-2) GRAN MAT x10^3(ANC) 3.35 10*3/uL 1.99-6.95 (test code = 8335531123) IMM GRAN x10^3 (test 0-0.06 code = 0351669278) LYMPH x10^3 (test code 2.01 10*3/uL 1.09-3.23 = 731-0) MONO x10^3 (test code 0.84 10*3/uL 0.36-1.02 = 742-7) EOS x10^3 (test code = 0.16 10*3/uL 0.06-0.53 711-2) BASO x10^3 (test code 0.08 10*3/uL 0.01-0.09 = 704-7) Lab Interpretation Abnormal (test code = 74886-0) [facility]- XR CHEST 1 [id number] 08:28:00Patient Name: ALEX BURROUGHS Unit No: [id number] EXAMS: CPT: [id number] XR CHEST 1 V 19180 History: Chest pain CHEST 1 VIEW FINDINGS: [...] (0831) BATCH NO: N/A Name: ALEX BURROUGHS [facility] Phys: Sky Starks MD [address] : 1975 Age: 44 Sex: [place] [address] Loc: N.ERS Exam Date: 05/23/2019 Status: REG ER P H: FAX: PAGE 1 Signed [id number] 07:18:00 Test Item Value Reference Range Interpretation Comments TROPONIN-I (test code = TROPI) <0.020 ng/mL 0.000-0.034 N BASIC METABOLIC [id number] 07:14:00 Test Item Value Reference Range Interpretation [...] mg/dL 8.5-10.5 N = CA) CBC W/AUTO [id number] 07:10:00 Test Item Value Reference Range Interpretation [...] Date/Time Note Provider Source 2023-01-02 11:33:00-00:[address] [facility] ([facility]) EMERGENCY PROVIDER REPORT REPORT#:[id number] REPORT STATUS: Signed DATE:01/02/23 TIME: 1133 PATIENT: ALEX BURROUGHS UNIT #: [id number] ROOM: BED: AGE: 47 SEX: M PCP PHYS: No Primary or Family P hysician SERVICE AUTHOR: Donna Iraheta DO * ALL edits or amendments must be made on the Visual IQ/computer document * HPI-Headache Free Text HPI Notes Free Text HPI Notes 47-year-old male with a past medical history of ulcerative colitis presents with complaint of a frontal headache onset 1 week ago with no relief. Patient reports that he has used ove l-sme-rjjnqom medications Advil and Tylenol without relief. Patient [...] (Auto) (20 - 40 %) 16.2 L [place] % (Auto) (1 - 10 %) 12.7 H Eos % (Auto) (0.0 - 5.0 %) 1.2 Baso % (Auto) (0.0 - 1.0 %) 1.1 H Neut # (Auto) (1.6 - 7.2 x10 3/uL) 6.5 Lymph # (Auto) (1.1 - 2.7 x10 3/uL) 1.53 [place] # (Auto) (0.3 - 0.8 x10 3/uL) 1.2 H Eos # (Auto) (0.0 - 0.5 x10 3/uL) 0.1 Baso # (Auto) (0.0 - 0.1 x10 3/uL) 0.1 Immature Gran % (0.0 - 2.0 %) 0.2 Nucleated RBC % (0.0 - 0.9 %) 0.0 Urines Urine Color (YELLOW) YELLOW Urine Appearance (CLEAR) Clear Urine pH (5.0 - 9.0) 5.0 Ur Specific [place] (1.001 - 1.030) 1.032 Urine Protein (NEGATIVE) [...] 01/02 IV 1057 Differential Diagnosis Differential Diagnosis TAXATION INSPECTOR tumor, Headache, clus ter, Headache, migraine, Headache, [...] Patient reports that he has used ove r-sne-agjfcuj medications Advil and Tylenol without relief. 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 [...] Colitis, Understanding Colitis Referrals Provider Referral: Obey eFrnandez MD Follow-Up: 2-3 Days Address: [facility] [place] [address] Departure Forms [facility] PCP LIST WORK/SCHOOL EXCUSE VARIABLE Discharge Note [...] symptoms should prompt an immediate return to [facility] or the closest emergency department or a call to 911. Electronically Signed by Donna Iraheta DO on at 1925 RPT #:[id number] END OF REPORT 2023-01-02 09:44:00-00:00 [id number] [address] PATIENT NAME: ALEX BURROUGHS ADMIT DATE: 01/02/23 ACCOUNT NO: [id number] ROOM NO: AGE: 47 REPORT TYPE: ELECTROCARDIOGRAM SEX: M ADMITTING PHYSICIAN: ATTENDING PHYSICIAN: Order: [id number] Test Reason : Resting 12-lead ECG Test [...] PATIENT NAME ALEX BURROUGHS 42 2023-01-02 09:08:00-00:00 [facility] EMERGENCY PROVIDER REPORT REPORT#:[id number] REPORT STATUS: Signed DATE:01/02/23 TIME: 907 PATIENT: ALEX BURROUGHS UNIT #: [id number] ROOM: BED: AGE: 47 SEX: M PCP PHYS: No Primary or Family P hysician SERVICE AUTHOR: Bambi De La Cruz * ALL edits or amendments must be made on the Visual IQ/Callystro document * Provider in Triage - Adult [...] John Erickson MD on at 1611 RPT #:[id number] END OF REPORT 2022-12-25 00:50:00-00:00 [phone] [address] PATIENT NAME: ALEX BURROUGHS ADMIT DATE: 11/26/22 ACCOUNT NO: [id number] ROOM NO: N.[facility] AGE: 47 REPORT TYPE: 360 - QUERY RESPONSE DOCUMENT SEX: M ADMITTING PHYSICIAN:Laureano Webster MD ATTENDING PHYSICIAN:Laureano Webster MD Provider Query QUERY TEXT: Clarification Diagnostic Test 360MD Query related questions should be directed to: Kayden kang [facility] Coding Query Helpline Based on your medical [...] 0050 PATIENT NAME ALEX BURROUGHS 2022-11-29 11:48:00-00:00 [facility] ([facility]) Hospitalist D/C Summary REPORT #: [id number] REPORT STATUS: Signed DATE: 11/29/22 TIME: 1148 PATIENT: ALEX BURROUGHS UNIT #: [id number] ROOM #: N.0656 BED: 1 : 77 AGE: 47 SEX: M ATTEND: Faye Webster MD ADM AUTHOR: Ratna Logan ATTENTION *EDITS and/or ADDENDA must be made in Patient Ke eper for this note. * * Edits and ammendments created in [employer] are not visible * * in Patient Keeper or the legal medical record (HPF). * -- CO-SIGNATURE -- COMMENTS: Case discussed with DOUGH PANNER. Agree with the findings and plan as [...] Diagnosed 1 year ago with colonoscopy in [facility]. CT scan - Subtle wall thickening/enhancement of [...] Up:ADT - Admission Orders Details: Order number: [id number] Category: ADT - Admission Orders Order status: Transmitted Details: Consulting provider 1: STEVIEBST:Obey Fernandez MD Consulting provider 1: . Consult follow up timeframe: In 2-3 weeks Ordered by: Ratna Logan Nov 29, 2022 11:15am Entered by: Ratna Logan Service date: Nov 29, 2022 11:13am PK DISCHARGE ORDERS: Discharge w/Instructions:PKDC - PK DISCHARGE ORD ERS Details: Order number: [id number] Category: PKDC - PK DISCHARGE ORDERS Order status: Transmitted Details: Discharge order: Yes Discharge to: Home/Self Care Diet: Regular Activity: As Tolerated Appropriate for Age Notify PCP of Signs/Symptoms: Moderate/large bleeding Shortness of breath Temp. 101 or greater Additional Discharge Routines: PCP Follow-Up Welfare Eligibility Worker Follow-Up Ordered by: Ratna Logan Nov 29, [...] * * Edits and ammendments created in Mango Reservations are not visible * * in Patient Keeper or the legal medical record (HPF). * [facility] #: [id number] END OF REPORT 2022-11-29 11:32:00-00:[address] [facility] ([facility]) Med Order Sheet REPORT #: [id number] REPORT STATUS: Signed DATE: 11/29/22 TIME: 1132 PATIENT: ALEX BURROUGHS UNIT #: [id number] ROOM #: N.0656 BED: 1 : 77 AGE: 47 SEX: M ATTEND: Lopez Webster MD ADM AUTHOR: Ratna Logan ATTENTION *EDITS and/or ADDENDA must be made in Patient [facility] for this note. * * Edits and ammendments created in [employer] are not visible * * in Patient Keeper or the legal medical record ([facility]). * Discharge Medication Reconciliation Hosp: predniSONE Tab (Deltasone Tab) Dose: 10 MG PO ASDIR, Disp: 30 tablet, Refills: 0 - Taper as directed: 4 tabs PO daily x3 days, then 3 tabs PO daily x3 days, then 2 tabs PO daily x3 days, then 1 tab PO daily x3 days at 1132 ATTENTION *EDITS and/or ADDENDA must be made in Patient [facility] for this note. * * Edits and ammendments created in [facility] are not visible * * in Patient Keeper or the legal medical record ([facility]). * RPT #: [id number] END OF REPORT 2022-11-29 11:27:00-00:[address] [facility] ([facility]) Med Order Sheet REPORT #: [id number] REPORT STATUS: Signed DATE: 11/29/22 TIME: 1127 PATIENT: ALEX BURROUGHS UNIT #: [id number] ROOM #: N.0656 BED: 1 : 77 AGE: 47 SEX: M ATTEND: Faye Webster MD ADM AUTHOR: Ratna Logan ATTENTION *EDITS and/or ADDENDA must be made in Patient Ke ep for this note. * * Edits and ammendments created in [facility] are not [facility] * * in Patient [...] methylPREDNISolone Inj (Solu-MEDROL Inj) 6 0MG IV [id number] Signed in PatientKeeper by Ratna kovacs on 11/29/22 11:25 at 1127 ATTENTION *EDITS and/or ADDENDA must be made in Patient [facility] for this note. * * Edits and ammendments created in [facility] are not visible * * in Patient Keeper or the legal medical record ([facility]). * RPT #: [id number] END OF REPORT 2022-11-29 11:15:00-00:[address] [facility] ([facility]) Med Order Sheet REPORT #: [id number] REPORT STATUS: Signed DATE: 11/29/22 TIME: 1115 PATIENT: ALEX BURROUGHS UNIT #: [id number] ROOM #: N.0656 BED: 1 : 77 AGE: 47 SEX: M ATTEND: Faye Webster MD ADM AUTHOR: Ratna Logan ATTENTION *EDITS and/or ADDENDA must be made in Patient Ke eper for this note. * * Edits and ammendments created in [facility] are not visible * * in Patient Keeper or the legal medical record ([facility]). * Discharge Medication Reconciliation DISCHARGE MEDICATION LIST [...] IV Q6H PRN sbp>180Dc'd: HYDROcod/APAP 5/325 Tab (Kingsley 5/325 Tab) 1TAB P O Q4H PRN [...] and/or ADDENDA must be made in Patient [facility] for this note. * * Edits and ammendments created in [facility] * * in Patient Keeper or the legal medical record ([facility]). * RPT #: [id number] END OF REPORT 2022-11-28 15:28:00-00:[address] [facility] ([facility]) Gastroenterology Prog. Note REPORT #: [id number] REPORT STATUS: Signed DATE: 11/28/22 TIME: 1528 PATIENT: ALEX BURROUGHS UNIT #: [id number] ROOM #: N.0656 BED: 1 : 77 AGE: 47 SEX: M ATTEND: Faye Webster MD ADM AUTHOR: Obey Fernandez MD ATTENTION *EDITS and/or ADDENDA must be made in Patient [facility] for this note. * * Edits and ammendments created in [facility] * * in Patient Keeper or the legal medical record ([facility]). * -- SUBJECTIVE -- CHIEF COMPLAINT: Interval hx: No new complaints Bleeding has improved and stools are getting mor e formed though still bloody Abdominal pain has improved REASON FOR CONSULTATION: Rectal bleeding. HISTORY OF PRESENT ILLNESS: A 47-year-old with h istory of ulcerative colitis diagnosed last year, who has been medically noncompliant. He has been attending the hospital in [place] and has not established care in our [...] -- MEDICATIONS DEXTROSE 5%-NS 1000 ML IV .U48P28H MESALAMINE 800 MG PO TID IPRATROPIUM/ALBUTEROL SULFATE 3 ML NEB RTQ6H PRN HYDROcodone BITARTRATE/APAP 1 TAB PO Q4H PRN methylPREDNISolone SOD SUCC 60 MG IV Q8HR polyethylene glycoL 3350 1 PKT PO DAILY PRN LORazepam 0.5 MG IV Q12H PRN ONDANSETRON HCL/PF 4 MG IV Q4H PRN DEXTROSE 5%-NS 1000 ML IV .[id number] NITROGLYCERIN 0.4 MG SL Q5M PRN guaiFENesin 600 MG PO BID PRN cloNIDine HCL 0.1 MG PO Q6H PRN ZOLPIDEM TARTRATE 10 MG PO BEDTIME PRN SODIUM CHLORIDE 0.9% 1000 ML IV .[id number] ACETAMINOPHEN 650 MG PO Q4H PRN HYDROmorphone [...] and/or ADDENDA must be made in Patient [facility] for this note. * * Edits and ammendments created in [employer] are not visible * * in Patient Keeper or the legal medical record ([facility]). * RPT #: [id number] END OF REPORT 2022-11-28 11:09:00-00:[address] [facility] Hospitalist Progress Note REPORT #: [id number] REPORT STATUS: Signed DATE: 11/28/22 TIME: 1109 PATIENT: ALEX BURROUGHS UNIT #: [id number] ROOM #: N.0656 BED: 1 : 77 AGE: 47 SEX: M ATTEND: Faye Webster MD ADM AUTHOR: Ratna Logan APRNNP ATTENTION *EDITS and/or ADDENDA must be made in Patient [facility] for this note. * * Edits and ammendments created in [employer] are not visible * * in Patient Keeper or the legal medical record ([facility]). * -- CO-SIGNATURE -- COMMENTS: Case discussed with DOUGH PANNER. Agree with the findings and plan as documented. Moderate complexity Signed in PatientKeeper by SHANICE THOMAS MD on 11/29/22 at 11:18 -- ASSESSMENT AND PLAN -- ADDITIONAL COMMENTS: PLAN Ulcerative Coliits Flare Rectal bleeding Diagnosed 1 year ago with colonoscopy in [facility]. CT scan - Subtle wall thickening/enhancement of [...] -- MEDICATIONS DEXTROSE 5%-NS 1000 ML IV .[id number] MESALAMINE 800 MG PO TID IPRATROPIUM/ALBUTEROL SULFATE 3 ML NEB RTQ6H PRN HYDROcodone BITARTRATE/APAP 1 TAB PO Q4H PRN methylPREDNISolone SOD SUCC 60 MG IV Q8HR polyethylene glycoL 3350 1 PKT PO DAILY PRN LORazepam 0.5 MG IV Q12H PRN ONDANSETRON HCL/PF 4 MG IV Q4H PRN DEXTROSE 5%-NS 1000 ML IV .[id number] NITROGLYCERIN 0.4 MG SL Q5M PRN guaiFENesin 600 MG PO BID PRN cloNIDine HCL 0.1 MG PO Q6H PRN ZOLPIDEM TARTRATE 10 MG PO BEDTIME PRN SODIUM CHLORIDE 0.9% 1000 ML IV .[id number] ACETAMINOPHEN 650 MG PO Q4H PRN HYDROmorphone [...] * * Edits and ammendments created in [facility] * * in Patient Keeper or the legal medical record (HPF). * [facility] #: [id number] END OF REPORT 2022-11-27 11:05:00-00:00 [facility] ([facility]) Hospitalist Progress Note REPORT #: [id number] REPORT STATUS: Signed DATE: 11/27/22 TIME: 1105 PATIENT: ALEX BURROUGHS UNIT #: [id number] ROOM #: N.0656 BED: 1 : 77 AGE: 47 SEX: M ATTEND: Faye Webster MD ADM AUTHOR: Sekou Rubi MD ATTENTION *EDITS and/or ADDENDA must be made in Patient Ke eper for this note. * * Edits and ammendments created in [employer] are not visible * * in Patient Keeper or the legal medical record (HPF). * -- ASSESSMENT AND PLAN -- GENERAL ASSESSMENT: Ulcerative Coliits Flare Rectal bleeding Diagnosed 1 year ago with colonoscopy in [facility]. CT scan - Subtle wall thickening/enhancement of [...] -- MEDICATIONS DEXTROSE 5%-NS 1000 ML IV .Q26P17E MESALAMINE 800 MG PO TID IPRATROPIUM/ALBUTEROL SULFATE 3 ML NEB RTQ6H PRN HYDROcodone BITARTRATE/APAP 1 TAB PO Q4H PRN methylPREDNISolone SOD SUCC 60 MG IV Q8HR polyethylene glycoL 3350 1 PKT PO DAILY PRN LORazepam 0.5 MG IV Q12H PRN ONDANSETRON HCL/PF 4 MG IV Q4H PRN DEXTROSE 5%-NS 1000 ML IV .[id number] NITROGLYCERIN 0.4 MG SL Q5M PRN guaiFENesin 600 MG PO BID PRN cloNIDine HCL 0.1 MG PO Q6H PRN ZOLPIDEM TARTRATE 10 MG PO BEDTIME PRN SODIUM CHLORIDE 0.9% 1000 ML IV .[id number] ACETAMINOPHEN 650 MG PO Q4H PRN HYDROmorphone [...] * * Edits and ammendments created in [facility] are not visible * * in Patient Keeper or the legal medical record (HPF). * [facility] #: [id number] END OF REPORT 2022-11-27 11:05:00-00:[address] [facility] ([facility]) Gastroenterology Prog. Note REPORT #: [id number] REPORT STATUS: Signed DATE: 11/27/22 TIME: 1105 PATIENT: ALEX BURROUGHS UNIT #: [id number] ROOM #: N.0656 BED: 1 : 77 AGE: 47 SEX: M ATTEND: Lopez Webster MD ADM AUTHOR: Obey Fernandez MD ATTENTION *EDITS and/or ADDENDA must be made in Patient Ke eper for this note. * * Edits and ammendments created in [employer] are not visible * * in Patient Keeper or the legal medical record (HPF). * -- SUBJECTIVE -- CHIEF COMPLAINT: Interval hx: No new complaints REASON FOR CONSULTATION: Rectal bleeding. HISTORY OF PRESENT ILLNESS: A 47-year-old with h istory of ulcerative colitis diagnosed last year, who has been medically noncompliant. He has been attending the hospital in [place] and has not established care in our [...] -- MEDICATIONS DEXTROSE 5%-NS 1000 ML IV .[id number] MESALAMINE 800 MG PO TID IPRATROPIUM/ALBUTEROL SULFATE 3 ML NEB RTQ6H PRN HYDROcodone BITARTRATE/APAP 1 TAB PO Q4H PRN methylPREDNISolone SOD SUCC 60 MG IV Q8HR polyethylene glycoL 3350 1 PKT PO DAILY PRN LORazepam 0.5 MG IV Q12H PRN ONDANSETRON HCL/PF 4 MG IV Q4H PRN DEXTROSE 5%-NS 1000 ML IV .V28U04X NITROGLYCERIN 0.4 MG SL Q5M PRN guaiFENesin 600 MG PO BID PRN cloNIDine HCL 0.1 MG PO Q6H PRN ZOLPIDEM TARTRATE 10 MG PO BEDTIME PRN SODIUM CHLORIDE 0.9% 1000 ML IV .A68J05E ACETAMINOPHEN 650 MG PO Q4H PRN HYDROmorphone [...] * * Edits and ammendments created in [facility] are not visible * * in Patient Keeper or the legal medical record (HPF). * [facility] #: [id number] END OF REPORT 2022-11-27 09:53:00-00:[address] [facility] ([facility]) Med Order Sheet REPORT #: [id number] REPORT STATUS: Signed DATE: 11/27/22 TIME: 952 PATIENT: ALEX BURROUGHS UNIT #: [id number] ROOM #: N.0656 BED: 1 : 77 AGE: 47 SEX: M ATTEND: Faye Webster MD ADM AUTHOR: Sekou Rubi MD ATTENTION *EDITS and/or ADDENDA must be made in Patient Ke ep for this note. * * Edits and ammendments created in [facility] are not visible * * in [...] * * Edits and ammendments created in [employer] are not visible * * in Patient Keeper or the legal medical record (HPF). * [facility] #: [id number] END OF REPORT 2022-11-26 15:03:00-00:00 [id number] [facility] [address] [place] [address] PATIENT NAME: ALEX BURROUGHS ADMIT DATE: 11/26/22 ACCOUNT NO: [id number] ROOM NO: N.0656 AGE: 47 REPORT TYPE: CONSULTATION SEX: M ADMITTING PHYSICIAN:Laureano Webster MD ATTENDING PHYSICIAN:Laureano Webster MD CONSULTATION DATE: REASON FOR CONSULTATION: Rectal bleeding. HISTORY OF PRESENT ILLNESS: A 47-year-old with h istory of ulcerative colitis diagnosed last year, who has been medically noncompliant. He has been attending the hospital in [place] and has not established care in our [...] Date Transcribed: 11/26/2022 20:08:38 DARIEN/ANDRIA Receipt ID: [id number] Authenticated by Obey Fernandez MD On 11/28 09:44:06 AM at 0944 PATIENT NAME ALEX BURROUGHS 32 2022-11-26 12:44:00-00:00 [facility] Hospitalist Progress Note REPORT #: [id number] REPORT STATUS: Signed DATE: 11/26/22 TIME: 1244 PATIENT: ALEX BURROUGHS UNIT #: [id number] ROOM #: [facility] BED: 1 : 77 AGE: 47 SEX: M ATTEND: Faye Webster MD ADM AUTHOR: Sekou Rubi MD ATTENTION *EDITS and/or ADDENDA must be made in Patient Ke eper for this note. * * Edits and ammendments created in [facility] * * in Patient Keeper or the legal medical record (HPF). * -- ASSESSMENT AND PLAN -- GENERAL ASSESSMENT: Ulcerative Coliits Flare Rectal bleeding Diagnosed 1 year ago with colonoscopy in [facility]. - Monitor CBC - ESR is 10 [...] -- MEDICATIONS DEXTROSE 5%-NS 1000 ML IV .R17V24L IPRATROPIUM/ALBUTEROL SULFATE 3 ML NEB RTQ6H PRN HYDROcodone BITARTRATE/APAP 1 TAB PO Q4H PRN methylPREDNISolone SOD SUCC 60 MG IV Q8HR polyethylene glycoL 3350 1 PKT PO DAILY PRN LORazepam 0.5 MG IV Q12H PRN ONDANSETRON HCL/PF 4 MG IV Q4H PRN DEXTROSE 5%-NS 1000 ML IV .[id number] NITROGLYCERIN 0.4 MG SL Q5M PRN guaiFENesin 600 MG PO BID PRN cloNIDine HCL 0.1 MG PO Q6H PRN ZOLPIDEM TARTRATE 10 MG PO BEDTIME PRN SODIUM CHLORIDE 0.9% 1000 ML IV .G92F89M ACETAMINOPHEN 650 MG PO Q4H PRN morphine [...] * * Edits and ammendments created in [facility] are not visible * * in Patient Keeper or the legal medical record (HPF). * RPT #: [id number] END OF REPORT 2022-11-25 23:03:00-00:[address] [facility] ([facility]) Hospitalist P REPORT #: [id number] REPORT STATUS: Signed DATE: 11/25/22 TIME: 2302 PATIENT: ALEX BURROUGHS UNIT #: [id number] ROOM #: N.ERST BED: 1 : 77 AGE: 47 SEX: M ATTEND: Faye Webster MD ADM AUTHOR: Laureano Webster MD ATTENTION *EDITS and/or ADDENDA must be made in Patient Ke eper for this note. * * Edits and ammendments created in [employer] are not visible * * in Patient [...] to palpation.diffuse Neurology patient is awake alert [place] x3 no mo tor or sensory deficit [...] * * Edits and ammendments created in [employer] are not visible * * in Patient Keeper or the legal medical record (HPF). * RPT #: [id number] END OF REPORT 2022-11-25 21:40:00-00:[address] [facility] ([facility]) EMERGENCY PROVIDER REPORT REPORT#:[id number] REPORT STATUS: Signed DATE:11/25/22 TIME: 2139 PATIENT: ALEX BURROUGHS UNIT #: [id number] ROOM: [facility] BED: 1 AGE: 47 SEX: M PCP [...] % (Auto) (20 - 40 %) 24.5 [place] % (Auto) (1 - 10 %) 18.4 H Eos % (Auto) (0.0 - 5.0 %) 2.0 Baso % (Auto) (0.0 - 1.0 %) 1.1 H Neut # (Auto) (1.6 - 7.2 x10 3/uL) 5.6 Lymph # (Auto) (1.1 - 2.7 x10 3/uL) 2.58 [place] # (Auto) (0.3 - 0.8 x10 3/uL) 1.9 H Eos # (Auto) (0.0 - 0.5 x10 3/uL) 0.2 Baso # (Auto) (0.0 - 0.1 x10 3/uL) 0.1 Immature Gran % (0.0 - 2.0 %) 0.7 Nucleated RBC % (0.0 - 0.9 %) 0.0 Urines Urine Color (YELLOW) YELLOW Urine Appearance (CLEAR) HAZY Urine pH (5.0 - 9.0) 5.0 Ur Specific [place] (1.001 - 1.030) 1.031 Urine Protein (NEGATIVE) [...] to obs unit. Case di scussed with buffing and polishing wheel repairer Dr. Parr. Case discussed with hospitalist Dr. [...] Time Status Admin Sodium Chloride 1,000 ML .U69A00R 11/255 AC 11/25 IV 12/26 2315 2348 [...] over this patient's care. at 0050 RPT #:[id number] END OF REPORT 2022-11-25 21:38:00-00:[address] [facility] ([facility]) EMERGENCY PROVIDER REPORT REPORT#:[id number] REPORT STATUS: Signed DATE:11/25/22 TIME: 2137 PATIENT: ALEX BURROUGHS UNIT #: [id number] ROOM: [facility] BED: 1 AGE: 47 SEX: M PCP PHYS: No Primary or Family Ph ysician SERVICE AUTHOR: Jill Cardenas RNNP * ALL edits or amendments must be made on the Visual IQ/computer document * Provider in Triage - Adult [...] Never Smoker at 2139 at 0944 RPT #:[id number] END OF REPORT 2022-11-21 18:51:00-00:[address] [facility] ([facility] EMERGENCY PROVIDER REPORT REPORT#:[id number] REPORT STATUS: Signed DATE:11/21/22 TIME: 1850 PATIENT: ALEX BURROUGHS UNIT #: [id number] ROOM: BED: AGE: 47 SEX: M PCP PHYS: No Primary or Family Ph ysician SERVICE AUTHOR: Dennis Bower II, Jr, MD * ALL edits or amendments must be made on the Visual [employer]/computer document * HPI-Abd Pain M 40 and Over Free Text HPI Notes Free Text HPI Notes Patient is a 47-year-old male who presents to [facility] emergency department with lower abdominal pain and [...] (Auto) (20 - 40 %) 18.3 L [place] % (Auto) (1 - 10 %) 9.5 Eos % (Auto) (0.0 - 5.0 %) 2.4 Baso % (Auto) (0.0 - 1.0 %) 1.2 H Neut # (Auto) (1.6 - 7.2 x10 3/uL) 5.1 Lymph # (Auto) (1.1 - 2.7 x10 3/uL) 1.36 [place] # (Auto) (0.3 - 0.8 x10 3/uL) 0.7 Eos # (Auto) (0.0 - 0.5 x10 3/uL) 0.2 Baso # (Auto) (0.0 - 0.1 x10 3/uL) 0.1 Immature Gran % (0.0 - 2.0 %) 0.4 Nucleated RBC % (0.0 - 0.9 %) 0.0 Urines Urine Color (YELLOW) YELLOW Urine Appearance (CLEAR) Clear Urine pH (5.0 - 9.0) 7.0 Ur Specific [place] (1.001 - 1.030) 1.027 Urine Protein (NEGATIVE) [...] if you have any other concerns. Address: [facility] [address] [place] [address] Departure Forms [facility] PCP LIST Discharge Note I have spoken [...] symptoms should prompt an immediate return to [facility] or the closest emergency department or a call to 1. at 0835 RPT #:[id number] END OF REPORT 2022-11-21 14:23:00-00:[address] [facility] ([facility]) EMERGENCY PROVIDER REPORT REPORT#:[id number] REPORT STATUS: Signed DATE:11/21/22 TIME: 1422 PATIENT: ALEX BURROUGHS UNIT #: [id number] ROOM: BED: AGE: 47 SEX: M PCP PHYS: No Primary or Family Ph ysician SERVICE AUTHOR: Marvel Guzman * ALL edits or amendments must be made on the Visual IQ/computer document * Marvel Guzman 11/21/221422: Provider in [...] Grecia Taylor MD on at 2113 RPT #:[id number] END OF REPORT 2019-05-23 06:41:00-00:00 [id number] [address] PATIENT NAME: ALEX BURROUGHS ADMIT DATE: 9 ACCOUNT NO: [id number] ROOM NO: AGE: 44 REPORT TYPE: ELECTROCARDIOGRAM SEX: M ADMITTING PHYSICIAN: ATTENDING PHYSICIAN: Order: [id number] Test Reason : Resting 12-lead ECG Test [...] 1137 PATIENT NAME ALEX BURROUGHS 2019-05-23 06:39:00-00:00 [facility] ([facility]) EMERGENCY PROVIDER REPORT REPORT#:[id number] REPORT STATUS: Signed DATE:05/23/19 TIME: 0639 PATIENT: ALEX BURROUGHS UNIT #: [id number] ROOM: BED: AGE: 44 SEX: M PCP PHYS: No Primary or Family Ph ysician SERVICE AUTHOR: Sky Grant * ALL edits or amendments must be made on the Visual IQ/computer document * HPI-Chest Pain 40 and Over [...] % (Auto) (20 - 40 %) 30.7 [place] % (Auto) (1 - 10 %) 10.8 H Eos % (Auto) (1.0 - 5.0 %) 7.1 H Baso % (Auto) (0.0 - 1.0 %) 1.6 H Neut # (Auto) (1.6 - 7.2 x10 3/uL) 3.4 Lymph # (Auto) (1.1 - 2.7 x10 3/uL) 2.10 [place] # (Auto) (0.3 - 0.8 x10 3/uL) [...] rhythm, No STEMI, Normal intervals Rate 65 Conduction/[place] Left axis deviation Portions of this section [...] symptoms should prompt an immediate return to [facility] or the closest emergency department or a call to [facility]. Supervising Physician Note Scribe Statement Yanet Bose, [...] on 05/23/19 at 0754 at 1316 RPT #:[id number] END OF REPORT 2019-05-23 05:55:00-00:00 [id number] [address] PATIENT NAME: ALEX BURROUGHS ADMIT DATE: 05/23/19 ACCOUNT NO: [id number] ROOM NO: AGE: 44 REPORT TYPE: ELECTROCARDIOGRAM SEX: M ADMITTING PHYSICIAN: ATTENDING PHYSICIAN: Order: [id number] Test Reason : Resting 12-lead ECG Test [...] by:LAUREANO HANSEN MD at 1138 PATIENT NAME ALEX BURROUGHS 00
[2023-03-06] MEDS ORDERED: NA CHLORIDE 0.9% 1,000 ML ONE (22:46)
[2023-03-06 22:49] LABS: Absolute Lymphocytes (CBC) 1.8 K/uL (0.7-4.9); Hematocrit 40.3 % (39.6-49.0); MCV 79.8 fL (80-100); MPV 8.6 fL (7.6-11.3); RBC Red Blood Cell Count 5.06 M/uL (4.33-5.43)
[2023-03-06] MEDS ORDERED: ONDANSETRON 4 MG/2 ML VIAL ONE (22:49)
[2023-03-06] MEDS ORDERED: MORPHINE 4 MG/ML SYR ONE (22:49)
[2023-03-06 23:06] LABS: Albumin 3.3 g/dL (3.4-5.0); Bilirubin Total 0.2 mg/dL (0.2-1.0); Potassium 3.2 mEq/L (3.5-5.1); Protein, Total 7.1 g/dL (6.4-8.2)
[2023-03-06 23:34] LABS: Specific Gravity > 1.035 (1.005-1.030); Urine Bacteria None Seen /HPF (<20); Urine Bilirubin NEGATIVE (Negative); Urine Blood Negative (Negative); Urine Clarity Clear (Clear); Urine Color Light-Yellow (Yellow); Urine Glucose NEGATIVE (Negative); Urine Mucus 1+ /HPF (None Seen); Urine Protein TRACE (Negative); Urine RBC <5 /HPF (None Seen); Urine Urobilinogen Normal (Normal); Urine pH 5.5 (5.0-7.0)
[2023-03-07] MEDS ORDERED: predniSONE 20 MG TAB ONE (00:58)
[2023-03-07] MEDS ORDERED: CIPROFLOXACIN HCL 500 MG TAB ONE (00:59)
[2023-03-07] MEDS ORDERED: METRONIDAZOLE 500mg IVPB 500 MG/100 ML BAG IV ONE (01:00)
--- NOTE | 2023-03-07 01:07 | ER ---
Nurse's Notes [facility] Name: Wicho Weeks Age: 47 yrs Sex: Male : 1975 Arrival Date: 03/06/2023 Time: 20:20 Bed 7 Private MD: Diagnosis: Indeterminate colitis Presentation: 03/06 20:58 Chief complaint: Patient states: abdominal pain onset yesterday and blood in his stool. cm10 Pt states that the blood is bright red. Coronavirus screen: Vaccine status: Patient reports being unvaccinated. Ebola Screen: No symptoms or risks identified at this time. Initial Sepsis Screen: Does the patient meet any 2 criteria? No. Patient's initial sepsis screen is negative. Does the patient have a suspected source of infection? No. Patient's initial sepsis screen is negative. Risk Assessment: Do you want to hurt yourself or someone else? Patient reports no desire to harm self or others. Onset of symptoms was March 05, 2023. 20:58 Method Of Arrival: Ambulatory cm10 20:58 Acuity: DRE 3 cm10 Triage Assessment: 23:14 General: Appears in no apparent distress. Behavior is calm, cooperative. Pain: rv Complains of pain in abdomen. Neuro: Clemons Agitation-Sedation Scale (RASS): Level of Consciousness is awake, alert, obeys commands, Oriented to person, place, time, situation. Cardiovascular: Capillary refill < 3 seconds. Respiratory: Airway is patent Respiratory effort is even, unlabored. GI: Abdomen is flat, non-distended, Reports upper abdominal pain, diarrhea, nausea. : No signs and/or symptoms were reported regarding the genitourinary system. Derm: Skin is intact. Historical: - Allergies: 21:00 No Known Allergies; cm10 - PMHx: 21:00 Chronic Abdominal Pain; Colitis; GI Bleed; cm10 - PSHx: 21:00 rectal abscess removal; cm10 - Immunization history:: Adult Immunizations unknown. - Social history:: Smoking status: Reported history of juuling and/or vaping. Screenin:14 [facility] ED Fall Risk Assessment (Adult) History of falling in the last 3 months, rv including since admission No falls in past 3 months (0 pts) Confusion or Disorientation No (0 pts) Intoxicated or Sedated No (0 pts) Impaired Gait No (0 pts) Mobility Assist Device Used No (0 pt) Altered Elimination No (0 pt) Score/Fall Risk Level 0 - 2 = Low Risk Oriented to surroundings, Maintained a safe environment, Educated pt \T\ family on fall prevention, incl call for assistance when getting out of bed, Assessed \T\ reinforced patient's understanding of fall precautions, Provided non-skid footwear, Hourly rounding (assess needs \T\ fall precautionary measures) done, Used ambulatory aids as needed (educated on \T\ assisted with), Used gait belt as appropriate. Abuse screen: Denies threats or abuse. Denies injuries from another. Nutritional screening: No deficits noted. Tuberculosis screening: No symptoms or risk factors identified. Assessment: 21:00 General: Appears uncomfortable, Behavior is calm, cooperative. rv 21:00 Pain: Complains of pain in abdomen. Neuro: Level of Consciousness is awake, Oriented to rv person, place, time, situation. Cardiovascular: Capillary refill < 3 seconds. Respiratory: Airway is patent Respiratory effort is even, unlabored. Vital Signs: 20:58 BP 143 / 100; Pulse 85; Resp 18; Temp 99; Pulse Ox 97% ; Weight 95.25 kg; Height 5 ft. cm10 9 in. ; Pain 8/10; 23:15 BP 140 / 93; Pulse 66; Resp 16; Pulse Ox 97% on R/A; rv 20:58 Body Mass Index 31.01 (95.25 kg, 175.26 cm) cm10 20:58 Pain Scale: Adult cm10 ED Course: 20:23 Patient arrived in ED. jj6 20:38 Kenny Mccullough PA is PHCP. cp 20:38 Alvarez Carlos MD is Attending Physician. cp 21:00 Triage completed. cm10 21:00 Patient has correct armband on for positive identification. rv 21:01 Arm band placed on Patient placed in waiting room. cm10 21:47 Radiology exam delayed due to IV insertion attempt and/or patient not having eh4 appropriate IV at this time. 22:44 Jr Arceo, RODOLFO is Primary Nurse. rv 22:44 Inserted saline lock: 20 gauge in right antecubital area, using aseptic technique. rv Blood collected. 22:59 CT Abd/Pelvis - IV Contrast Only In Process Unspecified. EDMS 23:15 No provider procedures requiring assistance completed. rv 0801 01:05 Samantha Mulligan MD is Referral Physician. cp 01:32 Provided Education on: steroids. rv 01:32 IV discontinued, intact, bleeding controlled, No redness/swelling at site. Pressure rv dressing applied. Administered Medications: 03/06 22:44 Drug: NS 0.9% IV 1000 ml Route: IV; Rate: 1 bolus; Site: right antecubital; rv 03/07 01:29 Follow up: IV Status: Completed infusion; IV Intake: 1000ml lg3 03/06 22:44 Drug: Ondansetron IVP 4 mg Route: IVP; Site: right antecubital; rv 03/07 01:29 Follow up: Response: No adverse reaction; Marked relief of symptoms lg3 03/06 22:44 Drug: morphine IVP or IV 4 mg Route: IVP; Infused Over: 4 mins; Site: right antecubital;rv 03/07 01:29 Follow up: Response: No adverse reaction; Marked relief of symptoms lg3 00:54 Drug: predniSONE PO 80 mg Route: PO; rv 01:29 Follow up: Response: No adverse reaction lg3 00:54 Drug: Ciprofloxacin PO 500 mg Route: PO; rv 01:28 Follow up: Response: No adverse reaction lg3 00:54 Drug: metroNIDAZOLE IVPB 500 mg Volume: 100 ml; Route: IVPB; Infused Over: 30 mins; rv Site: right antecubital; 01:28 Follow up: Response: No adverse reaction; IV Status: Completed infusion; IV Intake: lg3 100ml 00:54 Drug: Potassium PO Effervescent Tablet 50 mEq Route: PO; rv 01:28 Follow up: Response: No adverse reaction lg3 Medication: 03/06 23:15 VIS not applicable for this client. rv Intake: 03/07 01:28 IV: 100ml; Total: 100ml. lg3 01: IV: 1000ml; Total: 1100ml. lg3 Outcome: 01:06 Discharge ordered by . cp 01:32 Discharged to home ambulatory. rv 01:32 Condition: improved 01:32 Discharge instructions given to patient, Instructed on discharge instructions, follow up and referral plans. medication usage, Demonstrated understanding of instructions, follow-up care, medications, Prescriptions given X 5 01:32 Patient left the ED. rv Signatures: Dispatcher [employer] EDMS Kenny Mccullough PA PA cp Adis, Jr, RN RN rv Consuelo Cast RN RN lg3 Maraih Pritchett [facility] Aminta Weeks RN RN cm10 Corrections: (The following items were deleted from the chart) 03/06 21:01 21:00 PSHx: Rectal abscess removal; cm10 cm10
--- NOTE | 2023-03-07 01:07 | EDPHYS ---
Physician Documentation [facility] Name: Wicho Weeks Age: 47 yrs Sex: Male : 1975 Arrival Date: 03/06/2023 Time: 20:20 Bed 7 Private MD: ED Physician Alvarez Carlos HPI: 03/06 21:30 This 47 yrs old Male presents to ER via Ambulatory with complaints of Rectal cp Bleeding. 21:30 The patient presents with abdominal pain that is diffuse. Onset: The symptoms/episode cp began/occurred yesterday. Context: the patient flare up of "ulcerative colitis". Associated signs and symptoms: Pertinent positives: diarrhea, with bright red blood in stool, Pertinent negatives: chest pain, constipation, fever, hematuria, testicular pain, vomiting. Severity of pain: in the emergency department the pain is unchanged despite home interventions. 21:30 The patient has experienced similar episodes in the past, multiple times. cp Historical: - Allergies: 21:00 No Known Allergies; cm10 - PMHx: 21:00 Chronic Abdominal Pain; Colitis; GI Bleed; cm10 - PSHx: 21:00 rectal abscess removal; cm10 - Immunization history:: Adult Immunizations unknown. - Social history:: Smoking status: Reported history of juuling and/or vaping. ROS: 21:35 Constitutional: Negative for body aches, chills, fever, poor PO intake. cp 21:35 Eyes: Negative for injury, pain, redness, and discharge. cp 21:35 ENT: Negative for drainage from ear(s), ear pain, sore throat, difficulty swallowing, difficulty handling secretions. 21:35 Cardiovascular: Negative for chest pain, palpitations. 21:35 Respiratory: Negative for cough, shortness of breath, wheezing. 21:35 Abdomen/GI: Positive for abdominal pain, diarrhea, blood in stool, Negative for vomiting, constipation, anorexia. 21:35 Back: Negative for pain at rest, pain with movement. 21:35 : Negative for urinary symptoms, testicular pain 21:35 Neuro: Negative for altered mental status, dizziness, headache, syncope, weakness. 21:35 All other systems are negative. Exam: 21:40 Constitutional: The patient appears in no acute distress, alert, awake, cp non-diaphoretic, non-toxic, well developed, well nourished, overweight 21:40 Head/Face: Normocephalic, atraumatic. cp 21:40 Eyes: Periorbital structures: appear normal, Conjunctiva: normal, no exudate, no injection, Sclera: no appreciated abnormality, Lids and lashes: appear normal, bilaterally. 21:40 ENT: External ear(s): are unremarkable, Nose: is normal, Mouth: Lips: moist, Oral mucosa: pink and intact, moist, Posterior pharynx: is normal, airway is patent, no erythema, no exudate. 21:40 Neck: ROM/movement: is normal, is supple, without pain, no range of motions limitations, no meningismus, no nuchal rigidity. 21:40 Chest/axilla: Inspection: normal. 21:40 Cardiovascular: Rate: normal, Rhythm: regular. 21:40 Respiratory: the patient does not display signs of respiratory distress, Respirations: normal, no use of accessory muscles, no retractions, labored breathing, is not present, Breath sounds: are clear throughout, no decreased breath sounds, no stridor, no wheezing. 21:40 Abdomen/GI: Inspection: abdomen appears normal, Bowel sounds: active, all quadrants, Palpation: soft, in all quadrants, moderate abdominal tenderness, in the anterior aspect of left lateral abdomen, anterior aspect of right lateral abdomen, right upper quadrant, left upper quadrant, right lower quadrant and left lower quadrant, rebound tenderness, is not appreciated, involuntary guarding, is not appreciated. 21:40 Back: CVA tenderness, is absent. 21:40 Neuro: Orientation: to person, place \\T\\ time. Mentation: is normal, Motor: moves all fours, strength is normal, Sensation: is normal, Gait: is steady, at a normal pace, without difficulty. Vital Signs: 20:58 BP 143 / 100; Pulse 85; Resp 18; Temp 99; Pulse Ox 97% ; Weight 95.25 kg; Height 5 ft. cm10 9 in. ; Pain 8/10; 23:15 BP 140 / 93; Pulse 66; Resp 16; Pulse Ox 97% on R/A; rv 20:58 Body Mass Index 31.01 (95.25 kg, 175.26 cm) cm10 20:58 Pain Scale: Adult cm10 MDM: 21:11 Patient medically screened. cp 03/07 01:05 Data reviewed: vital signs, nurses notes, lab test result(s), radiologic studies, CT cp scan. 01:05 Differential diagnosis: hemorrhoids, fissure, abscess, bowel obstruction, gastritis, GI cp Bleed, pancreatitis, colitis. Consideration of Admission/Observation Escalation of care including admission/observation considered. I considered the following discharge prescriptions or medication management in the emergency department Medications were administered in the Emergency Department. See MAR. Care significantly affected by the following chronic conditions: colitis. 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 Response to treatment: the patient's symptoms have markedly improved after treatment, and as a result, I will discharge patient. 03/06 21:18 Order name: CBC with Diff; Complete Time: 22:52 cp 03/06 22:52 Interpretation: Normal except: HGB 12.7; MCV 79.8; MCH 25.1; MCHC 31.5; RDW 15.3; MN% cp 12.5. 03/06 21:18 Order name: CMP; Complete Time: 23:22 cp 03/06 23:22 Interpretation: Normal except: K 3.2; CL 109; GFR 87; AST 14; ALB 3.3; GLOB 3.8; A/G cp 0.9. 03/06 21:18 Order name: Lipase; Complete Time: 23:22 cp 03/06 21:18 Order name: Urinalysis w/ reflexes; Complete Time: 00:39 cp 03/06 21:18 Order name: CT Abd/Pelvis - IV Contrast Only cp 03/06 21:18 Order name: IV Saline Lock; Complete Time: 22:44 cp 03/06 21:18 Order name: Labs collected and sent; Complete Time: 22:44 cp Administered Medications: 03/06 22:44 Drug: NS 0.9% IV 1000 ml Route: IV; Rate: 1 bolus; Site: right antecubital; rv 03/07 01:29 Follow up: IV Status: Completed infusion; IV Intake: 1000ml lg3 03/06 22:44 Drug: Ondansetron IVP 4 mg Route: IVP; Site: right antecubital; rv 03/07 01:29 Follow up: Response: No adverse reaction; Marked relief of symptoms lg3 03/06 22:44 Drug: morphine IVP or IV 4 mg Route: IVP; Infused Over: 4 mins; Site: right antecubital;rv 03/07 01:29 Follow up: Response: No adverse reaction; Marked relief of symptoms lg3 00:54 Drug: predniSONE PO 80 mg Route: PO; rv 01:29 Follow up: Response: No adverse reaction lg3 00:54 Drug: Ciprofloxacin PO 500 mg Route: PO; rv 01:28 Follow up: Response: No adverse reaction lg3 00:54 Drug: metroNIDAZOLE IVPB 500 mg Volume: 100 ml; Route: IVPB; Infused Over: 30 mins; rv Site: right antecubital; 01:28 Follow up: Response: No adverse reaction; IV Status: Completed infusion; IV Intake: lg3 100ml 00:54 Drug: Potassium PO Effervescent Tablet 50 mEq Route: PO; rv 01:28 Follow up: Response: No adverse reaction lg3 Disposition: 05:55 Co-signature as Attending Physician, Alvarez Carlos MD I agree with the assessment sp4 and plan of care. I reviewed the patient's care provided by the Advanced Practice Provider and agree with the diagnosis and treatment plan. Disposition Summary: 03/07/23 01:06 Discharge Ordered Location: Home cp Problem: an acute exacerbation cp Symptoms: have improved cp Condition: Stable cp Diagnosis - Indeterminate colitis cp Followup: cp - With: Samantha Mulligan MD - When: 5 - 6 days - Reason: Recheck today's complaints Discharge Instructions: - Discharge Summary Sheet cp - Colitis cp Forms: - Medication Reconciliation Form cp - Thank You Letter cp - Antibiotic Education cp - Prescription Opioid Use cp - Patient Portal Instructions cp Prescriptions: - Zofran 4 mg Oral Tablet - take 1 tablet by ORAL route every 12 hours As needed; 20 tablet; Refills: 0, cp Product Selection Permitted - Cipro 500 mg Oral Tablet - take 1 tablet by ORAL route every 12 hours for 7 days; 14 tablet; Refills: 0, cp Product Selection Permitted - Metronidazole 500 mg Oral Tablet - take 1 tablet by ORAL route every 8 hours; 30 tablet; Refills: 0, Product cp Selection Permitted - Medrol (Guillermo) 4 mg Oral Tablets, Dose Pack - take 1 tablet by ORAL route as directed - follow package instructions; 1 cp packet; Refills: 0, Product Selection Permitted - dicyclomine 20 mg Oral Tablet - take 1 tablet by ORAL route 4 times per day; 30 tablet; Refills: 0, Product cp Selection Permitted Signatures: Dispatcher [employer] Kenny Peng PA PA cp Vicente, Ronaldo RN RN Alvarez Carlos MD MD sp4 Aminta Weeks RN RN cm10 Consuelo Cast RN lg3 Corrections: (The following items were deleted from the chart) 03/06 21:01 21:00 PSHx: Rectal abscess removal; cm10 cm10
[2023-03-07 01:50] VITALS: TEMP 99; O2SAT 97
[2023-03-07 01:56] VITALS: BP 140/93
--- NOTE | 2023-03-07 11:30 | RAD REPORT ---
EXAM DESCRIPTION: Abdomen Pelvis W Contrast CLINICAL HISTORY: ABD PAIN, BLOODY STOOL COMPARISON: 02/15/2023 TECHNIQUE: CT of the abdomen and pelvis performed following IV administration of iodinated contras t. This exam was performed according to our departmental dose-optimization program, which includes au tomated exposure control, adjustment of the mA and/or kV according to patient size and/or use of iter ative reconstruction technique. FINDINGS: Lung Bases: The visualized lung bases are clear. Bones: Mild multilevel endplate spondylosis. Sacralization on the left at L5. Abdomen: Liver: The liver has normal size and density. No intrahepatic biliary dilatation. Gallbladder: No calcified gallstones. Spleen, Pancreas, and Adrenal Glands: The spleen, pancreas, and adrenal glands are unremarkable. Kidneys: No hydronephrosis or obstructing calculus. Vasculature: The aorta and IVC have normal caliber and position. The portal vein is patent. The pro ximal visceral and renal arteries are patent. Stomach: Small hiatal hernia. Other: No free intraperitoneal air. Scattered reactive mesenteric lymph nodes. Pelvis: Bladder: Wall thickening of the urinary bladder. Bowel: No dilated loops of large or small bowel. Long segment wall thickening of the descending and sigmoid colon as well as the rectum with mild adjacent inflammatory change. Appendix: Normal appendix. Pelvis: Prostate is not enlarged. IMPRESSION: 1. Long segment wall thickening of the descending and sigmoid colon as well as the rec agusto with mild adjacent inflammatory change. These findings could be seen with nonspecific proctocolit is. 2. Wall thickening of the urinary bladder. This could be seen with cystitis. 3. Small hiatal hernia. Electronically signed by: Benji Ch 03/06/2023 11:29 PM CDT Due to temporary technical issues with the PACS/Fluency reporting system, reports are being signed by the in house radiologists without review as a courtesy to insure prompt reporting. The interpreting radiologist is fully responsible for the content of the report.
== END 2023-03-07 01:32 | disposition home or self-care (01) ==
LOC: ER 20:20
DX: K52.3 Indeterminate colitis (principal)
CPT/HCPCS: 36415; 74177; 80053; 81001; 83690; 85025; J2405; J7030; J7512; Q9967

== ENCOUNTER 2023-03-23 15:12 | Emergency (ER) | payer SELFPAY ==
--- OUTSIDE RECORDS SUMMARY | 2023-03-23 15:20 | XMS REPORT | Continuity of Care Document ---
:1975 Author Organization [facility] [place] t Address [address] [place] [address] [address] [place] [address] Care Team Providers Name Role Phone RAYMUNDO TYE RAMIREZ Primary Care Physician Unavailable ANA PEACOCK Attending Clinician Unavailable Donna Iraheta Attending Clinician Unavailable Laureano Webster Attending Clinician Unavailable Dennis Bower II Attending Clinician Unavailable ELLI HARLEY Attending Clinician Unavailable Elli Harley DO Attending Clinician JUSTIN BAPTISTE Attending Clinician Unavailable Justin Baptiste MD Attending Clinician Doctor Unassigned, Cataract Attending Clinician Unavailable RAYRAY WILLARD Attending Clinician [...] Univers stools stools 0-05 ity of 00:00: [address] Obesity Obesity Disease Active 2021-08 Univers (BMI (BMI 0-05 ity of 30-39.9) 30-39.9) 00:00: [address] Proctocoli Proctocoli Disease Active U nivers tis tis 9-21 ity of 00:00: [address] Allergies, Adverse Reactions, Alerts Allergy Allergy Status Severity Reaction(s) Onset Inactive Treating Comm ents Source Name Type Date Date Clinician No Known DA Active U [facility] 4-17 [place] [facility] 00:00: Health 00 are [facility] No Known DA Active U 2018-08 [facility] 0-17 [facility] 00:00: [facility] 00 are [facility] NO KNOWN Drug Active Univers ALLERGIE Class ity of S [facility] Social History Social Habit Start Date Stop Date Quantity Comments Source History of Passive smoker University of tobacco use [facility] Exposure to 2022-08-14 2022-08-24 Not sure [facility] SARS-CoV-2 00:00:00 14:04:00 [facility] (event) [place] Alcohol intake 2022-08-24 2022-08-24 Ex-drinker [facility] 00:00:00 00:00:00 (finding) [facility] Education 2022-05-11 2022-05-11 [facility] 00:00:00 00:00:00 [facility] Tobacco use and 2022-04-27 2022-04-27 Smokeless tobacco Un iversity of exposure 00:00:00 00:00:00 non-user [facility] Sex Assigned At [birth year] [facility] y of 00:00:00 00:00:00 [facility] Smoking Status Start Date Stop Date Source Ex-smoker 2022-04-27 00:00:00 2022-04-27 00:00:00 [facility] Medications Ordered Filled Start Stop Current Ordering Indication Dosage Frequency Signature Comments Components Source Medication Medication Date Date Medication? Clinician (SIG) Name Name ketorolac 2022- No 15mg 15 mg, Unive rs (TORADOL) 08-25 Slow IV ity of injection 01:15: 00:23 Push, [place] 15 mg 00 :00 ONCE, 1 Medical dose, On Branch 08/24/22 at 1915, JANNA iopamidol 2022- No [id number] 105mL 105 mL, Univers (ISOVUE 08-25 Intravenou [...] Branch 08/24/22 at 1700, JANNA ondansetron Yes [id number] 4mg Take 1 Univers 4 mg 1-18 tablet by ity of disintegrat 00:00: mouth [place] ing tablet 00 every 8 Medica l (eight) Branch hours as needed for Nausea and Vomiting (N/V). dicyclomine Yes [id number] 20mg Take 1 Univers 20 mg 1-18 [...] at 2230, 1 mL predniSONE 2021-08 Yes [id number] Take 1 po Univers 20 mg -26 tid x 2 ity of tablet 00:00: days, then 00 take 1 po Medical bid x 3 Branch days, then take 1 po daily x 5 days. predniSONE 2021-08 Yes [id number] Take 1 po Univers 20 mg 1-26 tid x 2 ity of tablet 00:00: days, then 00 take 1 po Medical bid x 3 Branch days, then take 1 po daily x 5 days. famotidine 2021-08- No [id number] 20mg Take 1 Univers (PEPCID) 20 - 12-12 tablet by it y of mg tablet 00:00: 05:59 mouth in [place] 00 :00 the Medical morning Branch and 1 tablet in the evening. Do all this for 15 days. predniSONE 2021-08- No [id number] Take 1 po Univers 20 mg -26 11-26 tid x 2 ity of tablet 00:00: 00:00 [place] 00 :[place] 1 po bid x Medical 3 days, Branch then 1 po daily x 5 days famotidine 2021-08- No [id number] 20mg Take 1 Univers (PEPCID) 20 09-01- tablet by it y of mg tablet 00:00: 00:00 mouth in [place] 00 :00 the Medical morning Branch and 1 tablet in the evening. Do all this for 15 days. predniSONE 2021-08- No [id number] Take 3 Univers 5 mg tablet 08-22-08 tablets by i ty of 00:00: 05:59 mouth [place] 00 :00 daily for Medical 7 days, Branch THEN 2 tablets daily for 7 days, THEN 1 tablet daily for 7 days. predniSONE 2021-08- No [id number] Take 3 Univers 5 mg tablet 08-22-08 tablets by i ty of 00:00: 05:59 mouth [place] 00 :00 daily for Medical 7 days, Branch THEN 2 tablets daily for 7 days, THEN 1 tablet daily for 7 days. predniSONE 2021-08- No [id number] Take 3 Univers 5 mg tablet -16 12-08 tablets by i ty of 00:00: 05:59 mouth [place] 00 :00 daily for Medical 7 days, Branch THEN 2 tablets daily for 7 days, THEN 1 tablet daily for 7 days. lactobacill 2021-08- No [id number] .5mg Take 1 Univers 0-12 02-10 tablet by ity of acidophilus 00:00: 05:59 mouth in [place] 00 :00 the [facility] morning Branch for 120 days. lactobacill 2021-08- No [id number] .5mg Take 1 Univers us 0-12 02-10 tablet by ity of acidophilus 00:00: 05:59 mouth in [place] 00 :00 the [facility] Branch for 120 days. lactobacill 2021-08- No [id number] .5mg Take 1 Univers us 0-12 02-10 tablet by ity of acidophilus 00:00: 05:59 mouth in [place] 00 :00 the [facility] Branch for 120 days. lactobacill 2021-08- No [id number] .5mg Take 1 Univers us 0-12 02-10 tablet by ity of acidophilus 00:00: 05:59 mouth in [place] 00 :00 the [facility] for 120 days. predniSONE 2021-08- No [id number] Take 6 Univers 10 mg 0-12 11-17 [...] [place] mg 00 First dose Medical on [facility] 05/17/22 at 0900, Until Discontinu ed, Routine methylPREDN 2021-08 Yes 20mg 20 mg, Univ ers ISolone sod 0-08 Intravenou it y of succ 14:30: s, Q8H, [place] (SOLU-MEDRO 00 First dose Me dical L (PF)) on [facility] Branch injection 05/14/22 at 20 mg 0930, Until Discontinu ed, Routine methylPREDN 2021-08- No 20mg 20 mg, Uni vers ISolone sod 0-08 10-11 Intravenou i ty of succ 14:30: 13:41 s, Q8H, [place] (SOLU-MEDRO 00 :53 First dose Me dical L (PF)) on [facility] Branch injection 05/14/22 at 20 [...] water for 2021-08- No PRN, Univers irrigation 0-07 10-07 Starting ity of irrigation 14:52: 16:50 on Mon [place] solution 00 :17 05/13/22 at Medic al 0952, Branch Until Mon05/13/22 at 1150, Routine, Intra-op simethicone 2021-08- PRN, Unive rs (GAS RELIEF 0-07 07 Starting ity of (SIMETHICON 14:51: 16:50 on [...] CONTINUOUS Medic al , Starting Branch on Mon05/12/22 at 0815, Until Mon05/13/22 at 1203, Routine vancomycin 2021-08 No 500mg 500 mg, Un kar (VANCOCIN) 0-06 10-06 Oral, ONCE it y of capsule 500 04:45: 04:10 NOW, 1 [place] mg 00 :00 dose, On Wed Branch 05/11/22 at 2345, JANNA
Fa [...] 500mg 500 mg, Un kar (FIRVANQ) 0-06 07 Oral, QID, ity of 50 mg/mL 02:45: 17:02 40 doses, [place] oral 00 :41 First dose Medical solution on Mon Branch 500 mg 05/11/22 at 2145, Last dose on 05/21/22 at 1600, Routine
Reason for Anti-Infec tive: Empiric Therapy for Suspected Infection< br>Empiric Therapy Site: Abdominal< br>Duratio n of therapy: 5 days diphenhydrA 2021-08 Yes 25mg 25 mg, [facility] 0-06 Intravenou ity of (BENADRYL) 02:25: s, Q4HPRN, [place] injection 39 Starting Medica l 25 mg on Mon Branch 05/11/22 at 2124, Until Discontinu ed, Routine, Itching diphenhydrA 2021-08 Yes 25mg 25 mg, [facility] 0-06 Intravenou ity of (BENADRYL) 02:25: s, [...] Mon05/11/22 at 1430, STAT iopamidol 2021-08- No [id number] 75mL 75 mL, Univers (ISOVUE 0-04 10-04 Intravenou ity o f 370-500 mL) 03:45: 03:45 s, ONCE, 1 [place] injection 00 :00 dose, On Medica l 75 mL [facility] 05/09/22 at 2245, Routine FENTanyl PF 2021-08 No 75ug 75 mcg, Un kar (SUBLIMAZE 0-11 14- Slow IV ity o f (PF)) 03:30: 03:15 [place], [place] injection 00 :00 ONCE, 1 Medical 75 mcg dose, On [facility] 05/09/22 at 2230, Routine diphenhydrA 2021-08 No 25mg 25 mg, Uni vers MINE 0-11 14- Slow IV ity of (BENADRYL) 02:30: 03:12 [place], [place] injection 00 :00 ONCE, 1 Medical 25 mg dose, On [facility] 05/09/22 at 2130, STAT ondansetron 2021-08 No 4mg 4 mg, Slow Univers (ZOFRAN 0-11 14- IV [place], ity of (PF)) 02:15: 03:09 ONCE, 1 [place] injection 4 00 :00 dose, On Medi miranda mg [facility] 05/09/22 at 2115, JANNA ferrous 2021-08 No 325mg Take 325 Univ ers sulfate 325 0-03 10-03 mg by ity of mg (65 mg 20:43: 00:00 mouth in [place] iron) 33 :00 the Medical tablet morning. [place] mesalamine 2021-08 No [id number] 1.2g Take 1 Univers 1.2 gram EC 0-03 10-18 tablet by it y of tablet 00:00: 04:59 mouth [place] 00 :00 daily with Medical breakfast [place] for 14 days. mesalamine 2021-08 No [id number] 1.2g Take 1 Univers 1.2 gram EC 0-03 10-18 tablet by it y of tablet 00:00: 04:59 mouth [place] 00 :00 daily with Medical breakfast [place] for 14 days. mesalamine 2021-08 No [id number] 1.2g Take 1 Univers 1.2 gram EC 0-03 10-11 tablet by it y of tablet 00:00: 00:00 mouth [place] 00 :00 daily with Medical breakfast [place] for 14 days. ferrous Yes 325mg Take [...] 1{tbl} Take 1 U nivers en with 04-29- tablet by ity of codeine 12:40: 00:00 mouth [place] (TYLENOL-CO 38 :00 every 6 Medic al DEINE #3 (six) Branch ORAL) hours as needed for Pain (scale 7-10). ciprofloxac 2021- No 250mg Take 250 Univers in HCl 250 04-29- mg by ity of mg tablet 11:38: 00:00 mouth [place] 56 :00 every 12 Medical (twelve) Branch hours. mesalamine No 1000mg Take 1,000 Univers 500 mg [...] mg 00 on [place] Medical 04/28/22 at [place] 1999, Until Discontinu ed, Routine
city council member approving Restricted medication : DARRYN LANDA acetaminoph Yes [id number] 1{tbl} Take 1 Un kar en-codeine - tablet by ity of (TYLENOL-CO 00:00: mouth [place] DEINE #3) 00 every 6 Medical 300-30 mg (six) Branch tablet hours as needed for Pain (scale 7-10). Indication s: acute pain mesalamine Yes [id number] 1.2g Take 1 U nivers 1.2 gram EC 9-23 tablet by ity of tablet 00:00: mouth [place] 00 daily with Medical breakfast. Branch vancomycin Yes [id number] 125mg Take 1 Univers 125 mg 9-23 capsule by ity of capsule 00:00: mouth 4 [place] 00 (four) Medical times Branch daily. mesalamine Yes [id number] 1.2g Take 1 U nivers 1.2 gram EC 9-23 tablet by ity of tablet 00:00: mouth [place] 00 daily with Medical breakfast. Branch vancomycin Yes [id number] 125mg Take 1 Univers 125 mg 9-23 capsule by ity of capsule 00:00: mouth [address] [place] [address] 00 (four) Medical times Branch daily. mesalamine Yes [id number] 1.2g Take 1 U nivers 1.2 gram EC 9-23 tablet by ity of tablet 00:00: mouth [place] 00 daily with Medical breakfast. Branch vancomycin Yes [id number] 125mg Take 1 Univers 125 mg 9-23 capsule by ity of capsule 00:00: mouth [address] [place] [address] (four) Medical times Branch daily. acetaminoph Yes [id number] 1{tbl} Take 1 Un kar en-codeine 9-23 tablet by ity of (TYLENOL-CO 00:00: mouth [place] DEINE #3) 00 every 6 Medical 300-30 mg (six) Branch tablet hours as needed for Pain (scale 7-10). Indication s: acute pain mesalamine Yes [id number] 1.2g Take 1 U nivers 1.2 gram EC 9-23 tablet by ity of tablet 00:00: mouth [place] 00 daily with Medical breakfast. Branch vancomycin Yes [id number] 125mg Take 1 Univers 125 mg 9-23 capsule by ity of capsule 00:00: mouth [address] [place] [address] 00 (four) Medical times Branch daily. mesalamine 2021- No [id number] 1.2g Take 1 Univers 1.2 gram EC 9-23 10-11 tablet by it y of tablet 00:00: 00:00 mouth [place] 00 :00 daily with Medical breakfast. Branch vancomycin 2021- No [id number] 125mg Take 1 Univers 125 mg 9-23 [...] Indication s: acute pain vancomycin 2021- No [id number] 125mg Take 1 Univers 125 mg 04-29 capsule by ity of capsule 00:00: 00:00 mouth 4 [place] 00 :00 (four) Medical times Branch daily for 9 days. mesalamine 2021- No [id number] 1.2g Take 1 Univers 1.2 gram EC [...] mg 04/28/22 at 1600, Last dose on 10/2/22 at 1200, Routine
Reason for Anti-Infec tive: [...] Medic al mg tablet 1 on Mon tablet 04/27/22 at 1857, Until Discontinu ed, Routine, Pain (scale 4-6) enoxaparin Yes 40mg 40 mg, Unive rs (LOVENOX) 04-27 Subcutaneo ity of injection 22:00: us, DAILY, [place] 40 mg 00 First dose Medical on Mon Branch 04/27/22 at 1700, Until Discontinu ed, Routine cefTRIAXone No 1000mg 1,000 mg, Univers (ROCEPHIN) 04-27 IV ity of 1,000 mg in 20:00: 19:48 Piggy[place], [place] NaCl 0.9% 00 :56 Q24H ABX, Medic [...] Routine, Pain (scale 1-3) iopamidol 2021- No [id number] 70mL 70 mL, Univers (ISOVUE 04-27 Intravenou ity o f 370-500 mL) 18:15: 18:15 s, ONCE, 1 [place] injection 00 :00 dose, On Medica l 70 mL Mon [place] 04/27/22 at 1315, Routine hydrOXYzine 2021- No 25mg 25 mg, Uni vers (ATARAX) 04-27 Oral, ity of tablet 25 17:30: 17:29 ONCE, 1 [place] mg 00 :00 dose, On Medical Mon [place] 04/27/22 at 1230, JANNA ondansetron 2021- No 4mg 4 mg, Slow Univers (ZOFRAN 04-27 IV [place], ity of (PF)) 16:15: 16:13 ONCE, 1 [place] injection 4 00 :00 dose, On Medi miranda mg Mon Branch 04/27/22 at 1115, JANNA morpHINE (4 No 4mg 4 mg, Slow Univers mg/mL) 04-27 IV [place], ity of injection 4 16:15: 16:13 ONCE, 1 [place] mg 00 :00 dose, On Medical Wed Branch 04/27/22 at 1115, STAT Vital Signs Vital Name Observation Time Observation Value Comments Source Systolic blood 2022-08-25 01:11:00 148 mm[Hg] Univer sity of [facility] Diastolic blood 2022-08-25 01:11:00 98 mm[Hg] Unive rsity of [facility] Heart rate 2022-08-25 01:11:00 81 /min [facility] Respiratory rate 2022-08-25 01:11:00 16 /[facility] in 2022-08-25 01:11:00 99 /min University of Arterial blood by [place] Verical [facility] Pulse oximetry Branch Body temperature 2022-08-24 20:06:00 36.83 [place] [facility] Body height 2022-08-24 20:06:00 175.3 cm [facility] Body weight 2022-08-24 20:06:00 90.719 kg [facility] BMI 2022-08-24 20:06:00 29.53 kg/m2 [facility] Systolic blood 2022-07-03 06:00:00 134 mm[Hg] Univer sity of [facility] Diastolic blood 2022-07-03 06:00:00 84 mm[Hg] Unive rsity of [facility] Heart rate 2022-07-03 06:00:00 72 /min [facility] Respiratory rate 2022-07-03 06:00:00 18 /min [facility] in 2022-07-03 06:00:00 95 /min University of Arterial blood by [place] Verical [facility] Pulse oximetry Branch Body temperature 2022-07-03 03:50:00 37.39 [place] Univ ersity [facility] [place] [facility] Body height 2022-07-03 03:50:00 175.3 cm Universi ty of [place] [facility] Body weight 2022-07-03 03:50:00 90.719 kg Universi ty [facility] [place] [facility] BMI 2022-07-03 03:50:00 29.53 kg/m2 Universi ty [facility] [place] [facility] Systolic blood 2022-05-17 16:43:00 128 mm[Hg] Univer sity of pressure [place] [facility] Diastolic blood 2022-05-17 16:43:00 72 mm[Hg] Unive rsity of pressure [place] [facility] Heart rate 2022-05-17 16:43:00 58 /min Universi ty [facility] [place] [facility] Body temperature 2022-05-17 16:43:00 35.83 [place] Univ ersity [facility] [place] [facility] Respiratory rate 2022-05-17 16:43:00 18 /min Univ ersity of [place] [facility] Oxygen saturation in 2022-05-17 16:43:00 100 /min University of Arterial blood by [place] Verical miranda Pulse oximetry Branch Body weight 2022-05-17 09:42:00 87 kg Universi ty of [place] [facility] BMI 2022-05-17 09:42:00 28.32 kg/m2 [facility]i ty [facility] [place] [facility] Body height 2022-05-11 22:16:00 175.3 cm Universi ty [facility] [place] [facility] Systolic blood 2022-05-13 14:58:00 128 mm[Hg] Univer sity of pressure [place] [facility] Diastolic blood 2022-05-13 14:58:00 80 mm[Hg] Unive rsity of pressure [place] [facility] Heart rate 2022-05-13 14:58:00 86 /min Universi ty [facility] [place] [facility] Body temperature 2022-05-13 14:58:00 37.67 [place] Univ ersity [facility] [place] [facility] Respiratory rate 2022-05-13 14:58:00 18 /min Univ ersity [facility] [place] [facility] Oxygen saturation in 2022-05-13 14:58:00 99 /min University of Arterial blood by [place] miranda Pulse oximetry Branch Body weight 2022-05-13 09:27:00 90.992 kg Universi ty [facility] [place] [facility] BMI 2022-05-13 09:27:00 28.32 kg/m2 [facility]i [facility] [place] [facility] Body height 2022-05-11 22:16:00 175.3 cm [facility]i [facility] [place] [facility] Heart rate 2022-05-10 04:12:00 73 /min [facility] [place] [facility] Body temperature 2022-05-10 04:12:00 36.5 Breann Univ ersity [facility] [place] [facility] Oxygen saturation in 2022-05-10 04:12:00 97 /min University of Arterial blood by [place] Verical miranda Pulse oximetry Branch Systolic blood 2022-05-10 04:00:00 133 mm[Hg] Univer sity of pressure [place] [facility] Diastolic blood 2022-05-10 04:00:00 79 mm[Hg] Unive rsity of pressure [place] [facility] Respiratory rate 2022-05-10 04:00:00 19 /min Univ ersity [facility] [place] [facility] Body height 2022-05-10 01:42:00 175.3 cm [facility] [place] [facility] Body weight 2022-05-10 01:42:00 86.183 kg [facility] [place] [facility] BMI 2022-05-10 01:42:00 28.06 kg/m2 [facility] [place] [facility] Systolic blood 2022-04-29 17:14:00 132 mm[Hg] Univer sity of pressure [place] [facility] Diastolic blood 2022-04-29 17:14:00 98 mm[Hg] Unive rsity of pressure [place] [facility] Heart rate 2022-04-29 17:14:00 90 /min [facility]i [facility] [place] [facility] Body temperature 2022-04-29 17:14:00 36.28 [place] Univ ers[facility] [place] [facility] Respiratory rate 2022-04-29 17:14:00 18 /min Univ ersity [facility] [place] [facility] Oxygen saturation in 2022-04-29 17:14:00 100 /min University of Arterial blood by [place] Verical miranda Pulse oximetry Branch Body weight 2022-04-28 09:36:00 87.998 kg [facility] [place] [facility] BMI 2022-04-28 09:36:00 28.65 kg/m2 [facility] [place] [facility] Body height 2022-04-27 21:57:00 175.3 cm [facility] [place] [facility] Procedures Procedure Date / Time Performing Clinician Source Performed COMP. METABOLIC PANEL 2022-08-24 21:45:00 Elli Harley [facility] ([id number]) Medical Branch CBC WITH DIFF 2022-08-24 21:45:[address] [facility] LACTIC ACID WHOLE BLOOD 2022-08-24 21:45:00 Elli Harley [facility] CONSENT/REFUSAL FOR 2022-08-24 19:59:50 Doctor Unassigned, [facility] DIAGNOSIS AND TREATMENT Cataract [facility] COMP. METABOLIC PANEL 2022-07-03 04:42:00 Justin Baptiste [facility] ([id number]) [facility] CBC WITH DIFF 2022-07-03 04:42:00 Justin Baptiste [facility] CONSENT/REFUSAL FOR 2022-07-03 03:35:53 Doctor Unassigned, [facility] DIAGNOSIS AND TREATMENT Cataract [facility] BASIC METABOLIC PANEL 2022-05-16 08:42:[facility], CL, CO2, GLUCOSE, Medica l Branch BUN, CREATININE, CA) CBC WITH DIFF 2022-05-16 08:42[facility] 2022-05-16 08:42[facility]00 [facility] ([facility], K, CL, CO2, GLUCOSE, Medica l Branch BUN, CREATININE, CA) CBC WITH DIFF 2022-05-16 08:42:00 [facility] 2022-05-15 09:46:00 [facility] ([facility], K, CL, CO2, GLUCOSE, Medica l Branch BUN, CREATININE, CA) CBC WITH DIFF 2022-05-15 09:46:00 [facility] 2022-05-15 09:46:00 [facility] ([facility], K, CL, CO2, GLUCOSE, Medica l Branch BUN, CREATININE, CA) CBC WITH DIFF 2022-05-15 09:46:00 Molina Stovall [facility] BASIC METABOLIC PANEL 2022-05-14 08:30:00 Molina Stovall [facility] (NA, K, CL, CO2, GLUCOSE, Medica l Branch BUN, CREATININE, CA) CBC WITH DIFF 2022-05-14 08:30:00 Molina Stovall [facility] BASIC METABOLIC PANEL 2022-05-14 08:30:00 Molina Stovall [facility] (NA, K, CL, CO2, GLUCOSE, Medica l Branch BUN, CREATININE, CA) CBC WITH DIFF 2022-05-14 08:30:00 [facility] 2022-05-13 16:29:00 Marybel Sexton [facility] FLEXIBLE SIGMOIDOSCOPY 2022-05-13 16:08:00 Marybel Sexton [facility] FLEXIBLE SIGMOIDOSCOPY 2022-05-13 16:08:00 Marybel Sexton [facility] FLEXIBLE SIGMOIDOSCOPY 2022-05-13 16:07:35 Robin eric [facility] (ENDO) [facility] FLEXIBLE SIGMOIDOSCOPY 2022-05-13 16:07:35 Robin eric [facility] (ENDO) [facility] HB ABO GROUPING 2022-05-13 11:11:00 Robin [facility] HB ABO GROUPING 2022-05-13 11:11:00 Robin [facility] BASIC METABOLIC PANEL 2022-05-13 08:57:00 Molina Stovall [facility] (NA, K, CL, CO2, GLUCOSE, Medica l Branch BUN, CREATININE, CA) CBC WITH DIFF 2022-05-13 08:57:00 Molina Stovall [facility] BASIC METABOLIC PANEL 2022-05-13 08:57:00 Molina Stovall [facility] (NA, K, CL, CO2, GLUCOSE, Medica l Branch BUN, CREATININE, CA) CBC WITH DIFF 2022-05-13 08:57:00 Molina Stovall [facility] VITAMIN D, 25-OH 2022-05-12 13:31:00 Robin [facility] VITAMIN D, 25-OH 2022-05-12 13:31:00 Robin [facility] PHOSPHORUS 2022-05-12 12:20:00 Robin [facility] MAGNESIUM 2022-05-12 12:20:00 Robin [facility] VITAMIN B12, LEVEL 2022-05-12 12:20:00 Robin [facility] C-REACTIVE PROTEIN 2022-05-12 12:20:00 Robin [facility] THYROID STIMULATING 2022-05-12 12:20:00 Robin [facility] COMP. METABOLIC PANEL 2022-05-12 12:20:00 Robin [facility] ([id number]) [facility] LIPID PANEL ([id number])(TOTAL 2022-05-12 12:20:00 Ferdinand Fofana [facility] TRIGLY[facility], HDL) N-TERMINAL PRO-BNP 2022-05-12 12:20:00 Robin [facility] PHOSPHORUS 2022-05-12 12:20:00 Robin [facility] MAGNESIUM 2022-05-12 12:20:00 Robin [facility] VITAMIN B12, LEVEL 2022-05-12 12:20:00 Robin [facility] C-REACTIVE PROTEIN 2022-05-12 12:20:[address] [facility] THYROID STIMULATING 2022-05-12 12:20:00 Robin eric [facility] HORMONE [facility] COMP. METABOLIC PANEL 2022-05-12 12:20:00 Robin eric [facility] ([id number]) [facility] Branch LIPID PANEL ([id number])(TOTAL 2022-05-12 12:20:00 Ferdinand Fofana [facility] TRIGLYCERIDES, HDL) N-TERMINAL PRO-BNP 2022-05-12 12:20:[address] [facility] PROTHROMBIN TIME / INR 2022-05-12 12:19:00 Ferdinand Fofana [facility] PROTHROMBIN TIME / INR 2022-05-12 12:19:00 Ferdinand Fofana [facility] CBC WITH DIFF 2022-05-12 12:18:00 Robin eric [facility] CBC WITH DIFF 2022-05-12 12:18:00 Robin eric [facility] XR KUB 2022-05-12 05:58:38 Robin [facility] XR KUB 2022-05-12 05:58:38 Robin [facility] SEDIMENTATION RATE 2022-05-12 02:23:[address] [facility] CALPROTECTIN, FECAL 2022-05-12 02:23:00 Ferdinand Fofana [facility] SEDIMENTATION RATE 2022-05-12 02:23:[address] [facility] CALPROTECTIN, FECAL 2022-05-12 02:23:00 Robin eric [facility] OCCULT (GUAIAC) BLOOD 2022-05-12 02:10:00 Ferdinand Fofana [facility] OCCULT (GUAIAC) BLOOD 2022-05-12 02:10:00 [facility] URINALYSIS 2022-05-11 19:42:00 Romie Lewis [facility] CLOSTRIDIUM DIFFICILE 2022-05-11 19:42:00 Romie Lewis [facility] FECAL PATHOGENS BY PCR 2022-05-11 19:42:00 Ferdinand Fofana [facility] URINALYSIS 2022-05-11 19:42:00 Romie Lewis [facility] CLOSTRIDIUM DIFFICILE 2022-05-11 19:42:00 Romie Lewis [facility] FECAL PATHOGENS BY PCR 2022-05-11 19:42:00 Ferdinand Fofana [facility] LACTIC ACID WHOLE BLOOD 2022-05-11 19:12:00 Romie Lewis [facility] LACTIC ACID WHOLE BLOOD 2022-05-11 19:12:00 Romie Lewis [facility] BLOOD CULTURE SCREEN 2022-05-11 19:10:00 Romie Lewis [facility] LIPASE 2022-05-11 19:10:00 Romie Lewis [facility] COMP. METABOLIC PANEL 2022-05-11 19:10:00 Romie Lewis [facility] ([id number]) [facility] CBC WITH DIFF 2022-05-11 19:10:00 Romie Lewis [facility] GLYCOSYLATED HEMOGLOBIN 2022-05-11 19:10:00 Ferdinand Fofana [facility] ([facility]) [facility] BLOOD CULTURE SCREEN 2022-05-11 19:10:00 Romie Lewis [facility] LIPASE 2022-05-11 19:10:00 Romie Lewis [facility] COMP. METABOLIC PANEL 2022-05-11 19:10:00 Romie Lewis [facility] ([id number]) [facility] CBC WITH DIFF 2022-05-11 19:10:00 Romie Lewis [facility] GLYCOSYLATED HEMOGLOBIN 2022-05-11 19:10:00 Ferdinand Fofana [facility] ([facility]) [facility] BLOOD CULTURE SCREEN 2022-05-11 19:00:00 Romie Lewis [facility] BLOOD CULTURE SCREEN 2022-05-11 19:00:00 Romie Lewis [facility] CONSENT/REFUSAL FOR 2022-05-11 18:00:56 Doctor Unassigned, [facility] DIAGNOSIS AND TREATMENT [facility] CONSENT/REFUSAL FOR 2022-05-11 18:00:56 Doctor Unassigned, [facility] DIAGNOSIS AND TREATMENT [facility] CT ABDOMEN PELVIS W 2022-05-10 03:29:54 Constantino Okeefe [facility] CONTRAST [facility] HB ABO GROUPING 2022-05-10 02:49:00 Constantino Okeefe [facility] LIPASE 2022-05-10 02:48:00 Constantino Okeefe [facility] COMP. METABOLIC PANEL 2022-05-10 02:48:00 Constantino Okeefe [facility] ([id number]) [facility] CBC WITH DIFF 2022-05-10 02:48:00 Constantino Okeefe [facility] CONSENT/REFUSAL FOR 2022-05-10 01:33:55 Doctor Unassigned, [facility] DIAGNOSIS AND TREATMENT [facility] MAGNESIUM 2022-04-29 08:47:00 Cordell [facility] FERRITIN SERUM 2022-04-29 08:47:00 Cordell [facility] IRON 2022-04-29 08:47:00 Cordell [facility] TOTAL IRON BINDING 2022-04-29 08:47:00 Cordell [facility] CAPACITY [facility] BASIC METABOLIC PANEL 2022-04-29 08:47:00 Cordell [facility] (NA, K, CL, CO2, GLUCOSE, Medica l Branch BUN, CREATININE, CA) CBC WITH DIFF 2022-04-29 08:47:00 Cordell [facility] MAGNESIUM 2022-04-28 09:51:00 Jaci Estrella [facility] BASIC METABOLIC PANEL 2022-04-28 09:51:00 Jaci Estrella [facility] (NA, K, CL, CO2, GLUCOSE, Medica l Branch BUN, CREATININE, CA) CBC WITH DIFF 2022-04-28 09:51:00 Jaci Estrella [facility] C-REACTIVE PROTEIN 2022-04-28 01:53:[address] [facility] CLOSTRIDIUM DIFFICILE 2022-04-28 01:46:00 Jaci Estrella [facility] TOXIN [facility] FECAL PATHOGENS BY PCR 2022-04-28 01:46:00 Jaci Estrella [facility] COVID-19 (ID NOW RAPID 2022-04-27 18:36:00 Viv Ventura [facility] TESTING) [facility] LAB ONLY COVID 2022-04-27 18:36:00 Viv Ventura [facility] INTERPRETATION [facility] CT ABDOMEN PELVIS W 2022-04-27 17:16:09 Viv Ventura [facility] CONTRAST [facility] ABORH CONFIRMATION (LAB 2022-04-27 16:40:00 Viv Ventura [facility] ONLY) Medical Branch URINALYSIS 2022-04-27 15:38:00 Viv Ventura [facility] LIPASE 2022-04-27 15:10:00 Viv Ventura [facility] MAGNESIUM 2022-04-27 15:10:00 Viv Ventura [facility] TROPONIN I 2022-04-27 15:10:00 Viv Ventura [facility] COMP. METABOLIC PANEL 2022-04-27 15:10:00 Viv Ventura [facility] ([id number]) Medical Branch CBC WITH DIFF 2022-04-27 15:10:00 Viv Ventura [facility] PROTHROMBIN TIME / INR 2022-04-27 15:10:00 Viv Ventura [facility] ACTIVATED PARTIAL 2022-04-27 15:10:00 Viv Ventura [facility] THRMPLAS TY [facility] HB ECG ROUTINE & RHYTHM 2022-04-27 15:09:41 Viv Ventura [facility] STRIP [facility] HB ABO GROUPING 2022-04-27 15:09:00 Viv Ventura [facility] NOTICE OF PRIVACY 2022-04-27 14:49:32 Doctor Nico, [facility] PRACTICES [facility] CONSENT/REFUSAL FOR 2022-04-27 14:49:05 Doctor Nico, [facility] DIAGNOSIS AND TREATMENT [facility] Encounters Start End Encounter Admission Attending Care Care Encounter Source Date/Time Date/Time Type Type Clinicians Facility Department ID 2022-02-10 Outpatient [facility] [id number] [place] 11:33:[address] 2022-01-25 Outpatient [facility] [id number] [place] 15:47:07 ANA [id number] [facility] 2023-01-02 2023-01-02 Emergency EM Peleg, HCANW GAUTAM [id number] [facility] 09:07:00 13:07:00 Leeor 40 [facility] are [facility] 2023-01-02 2023-01-02 Emergency EM Peleg, HCANW GAUTAM [id number] [facility] 09:07:00 13:07:00 Leeor 40 [facility] are [facility] 2022-11-26 2022-11-29 Inpatient EM Darin, HCANW MED [id number] [facility] 12:30:00 13:57:00 Mccracken [address] [place] [facility] are [facility] 2022-11-26 2022-11-29 Inpatient EM Darin, HCANW MED [id number] [facility] 12:30:00 13:57:00 [facility]rack[facility] 2022-11-21 2022-11-21 Emergency EM Bower II, HCANW GAUTAM [id number] [facility] 14:20:00 19:15:00 Dennis 73 [facility] are [facility] 2022-11-21 2022-11-21 Emergency EM Bower II, HCANW GAUTAM [id number] [facility] 14:20:00 19:15:00 Dennis 73 [facility] are [facility] 2022-08-24 2022-08-24 Emergency X FAULCONER, [facility] ERT [id number] Univers 14:07:00 19:15:00 [facility] 2022-08-24 2022-08-24 Emergency Faulconer, [facility] 1.2.840.114 [id number] Univers 14:07:00 19:15:00 Elli INFANTE 350.1.13.10 i [facility] 4.2.7.2.686 [facility] [phone] [address] 2022-07-02 2022-07-03 Emergency X VASUT, [facility] ERT [id number] Univers 21:53:00 00:19:00 JUSTIN [facility] 2022-07-02 2022-07-03 Emergency Vasut, [facility] 1.2.251.635 [id number] Univers 21:53:00 00:19:00 Justin INFANTE 350.1.13.10 i ty of [facility] [place].2.7.2.[place] [id number] [facility] 084 Branch 2022-07-02 2022-07-02 Orders Doctor JESSEE 1.2.840.114 [id number] Univers 00:00:00 00:00:00 Only Unassigned, NATE 350.1.13.10 [facility] 4.2.7.2.686 Kartik as [id number] [facility] 009 Branch 2022-05-11 2022-05-17 Outpatient [facility] [id number] Univers 13:03:00 14:23:00 [facility] 2022-05-11 2022-05-17 Emergency Joshua Romie [facility] 1.2.840. 114 [id number] Univers 13:03:00 14:23:00 Jaci Estrella 350.1.13.10 ity of Rayray [place] 4.2.7.2.686 [facility] [id number] [place] [id number] Branch 2022-05-13 2022-05-13 Surgery [facility] 1.2.419.819 [id number] Univers 10:30:00 11:10:00 Marybel INFANTE 350.1.13.10 i [place] [id number] [facility] 020 Branch 2022-05-09 2022-05-09 Emergency X [facility] ERT [id number] Univers 20:46:00 23:50:00 CONSTANTINO ity [facility] 2022-05-09 2022-05-09 Emergency [facility] 1.2.541.140 [id number] Univers 20:46:00 23:50:00 Constantino INFANTE 350.1.13.10 ity [place].2.686 [place] [id number] [place] [id number] Branch 2022-05-02 2022-05-02 Transition Cochran, SHEARN 1.2.840.114 [id number] Univers 00:00:00 00:00:00 of Care Lana TRUONGY 350.1.13.10 ity of [place] 4.2.7.2.686 [facility] [id number] [facility] 403 Branch 2022-04-27 2022-04-29 Inpatient X CORDELL [facility] [id number] Univers 09:54:00 13:15:00 DARRYN ity [facility] 2022-04-27 2022-04-29 [facility] Viv Ventura [facility] 1.2.840.1 14 [id number] Univers 09:54:00 13:15:00 Encounter Jaci Estrella 350.1.13.10 ity of Darryn LandaJULIO 4.2.7.2.686 [facility] [id number] [facility] 081 Branch 2022-01-31 2022-01-31 Outpatient [facility]JFJJK [facility] 00:00:00 00:00:00 [id number] 2022-01-30 2022-01-30 Emergency E SHINTHIA, MHKM [...] OBGEOVANNA [facility] 2022-01-25 2022-01-25 Outpatient [facility] [id number] [place] 18:30:00 18:30:00 Health 2022-01-25 2022-01-25 Outpatient [facility] PIJFJJK [facility]TO [facility] 00:00:00 00:00:00 [id number] Results Test Description Test Time Test Comments Results Result [facility] e Comments - CT HEAD/BRAIN 2023-01-02 W/O CONT 12:34:00 [facility] 1975 Sex: M Guerrero ronquillo Name: ALEX BURROUGHS Unit No: [id number] EXAMS: CPT: [id number] CT HEAD/BRAIN W/O CONT 45586 HISTORY: TENA CT SCAN OF THE HEAD [...] (1237) BATCH NO: N/A Name: ALEX BURROUGHS [facility] Phys: PELLE - Donna Iraheta B DO [address] [place] : 1975 Age: 47 Sex: [place] [address] Loc: N.ERS Exam Date: 01/02/2023 Status: REG ER PH: FAX: PAGE 1 Signed Report - CT HEAD/BRAIN 2023-01-02 W/O CONT 12:34:00 [facility] 1975 Sex: M Guerrero ronquillo Name: ALEX BURROUGHS Unit No: [id number] EXAMS: CPT: [id number] CT HEAD/BRAIN W/O CONT 77547 HISTORY: TENA CT SCAN OF THE HEAD [...] (1237) BATCH NO: N/A Name: ALEX BURROUGHS [facility] Phys: PELLE - Peleg,Leeor B DO [address] [place] : 1975 Age: 47 Sex: [place] [address] Loc: NDENISHA Exam Date: 01/02/2023 Status: DEP ER PH: FAX: PAGE 1 Signed Report - CT ABD PELVIS 2023-01-02 W/CONT 11:56:00 [facility] 1975 Sex: M Guerrero ronquillo Name: ALEX BURROUGHS Unit No: [id number] EXAMS: CPT: [id number] CT ABD PELVIS W/CONT 79852 Comparison study: 11/21/2022 History: ABD PAIN GI [...] the wall of the sigmoid colon. Name: AELX BURROUGHS [facility] Phys: JOSHUAJAZIEL De La CruzBambi CERVANTES [address] [place] : 1975 Age: 47 Sex: [place] [address] Loc: N.ERS Exam Date: 01/02/2023 Status: REG ER PH: FAX: PAGE 1 Signed Report (CONTINUED) Patient Name: ALEX BURROUGHS Unit No: [id number] EXAMS: CPT: [id number] CT ABD PELVIS W/CONT 74709 (Continued) at 1156 Reported and signed by: John Paul Jha MD CC: Bambi De La Cruz Technologist: AIM Hanna CTDI: 13.28 DLP: 722.84 Trscr Dt/Tm: 01/02/2023 (1156) by:[email or web address] Orig Print D/T: S: 01/02/2023 (1200) BATCH NO: N/A Name: ALEX BURROUGHS [facility] Phys: ALEJA De La CruzBambi [address] [place] : 1975 Age: 47 Sex: [place] [address] Loc: N.ERS Exam Date: 01/02/2023 Status: REG ER PH: FAX: PAGE 2 Signed Report - CT ABD PELVIS 2023-01-02 W/CONT 11:56:00 [facility] 1975 Sex: M Guerrero ronquillo Name: ALEX BURROUGHS Unit No: [id number] EXAMS: CPT: [id number] CT ABD PELVIS W/CONT 85318 Comparison study: 11/21/2022 History: ABD PAIN GI [...] of the sigmoid colon. Name: ALEX BURROUGHS [facility] Phys: Bambi Rod [address] [facility] : 1975 Age: 47 Sex: [place] [address] Loc: N.ERS Exam Date: 01/02/2023 Status: [facility] PH: FAX: PAGE 1 Signed Report (CONTINUED) Patient Name: ALEX BURROUGHS Unit No: [id number] EXAMS: CPT: [id number] CT ABD PELVIS W/CONT 34933 (Continued) at 1156 Reported and signed by: John Paul Jha MD CC: Bambi De La Cruz Technologist: IAM Hanna CTDI: 13.28 DLP: 722.84 Trscr Dt/Tm: 01/02/2023 (1156) by:[email or web address] Orig Print D/T: S: 01/02/2023 (1200) BATCH NO: N/A Name: ALEX BURROUGHS [facility] ED Phys: Bambi Rod [address] : 1975 Age: 47 Sex: [place] [address] Loc: N.ERS Exam Date: 01/02/2023 Status: DEP [...] message] The (test code = URO) system [facility] generated this result transmit eunice reference range [...] culture: Gross HematuriaSpecimen Description: CLEAN CATCHBASIC METABOLIC [id number] 10:17:00 Test Item Value Reference Range Interpretation [...] [Automated message] (test code = The system Itaro HEMINDEX) generated this result transmitted ref erence range: 1 NORMAL . The reference range was not used to int erpret this result as normal/abnormal . INDEX ICTERIC 1 Index/DL See_Comment [Automated me ssage] (test code = The system Itaro ICTINDEX) generated this result transmitted ref erence range: 1 NORMAL . The reference range was not used to int erpret this result as normal/abnormal . INDEX LIPEMIA 1 Index/DL See_Comment [Automated me ssage] (test code = The system Itaro LIPINDEX) generated this result transmitted ref erence range: 1 NORMAL . The reference range was not used to int erpret this result as normal/abnormal . LIVER FUNCTION [id number] 10:17:00 Test Item Value Reference Range Interpretation [...] code = 54 U/L 42-121 N ALKP) [id number] 10:17:00 Test Item Value Reference Range Interpretation Comments LIPASE (test code = LIP) 37 IU/L 22-51 N CBC W/AUTO [id number] 09:57:00 Test Item Value Reference Range Interpretation [...] x10 3/uL 0.0-0.1 N HGBA1C - GLYCOSYLATED [id number] 14:18:00 Test Item Value Reference Range Interpretation Comments GLYCOSYLATED HEMOGLOBIN 6.3 % 4.0-6.0 H Inte rpretive Data: (HA1C) (test code = Caution should be GLYHGB) exercised when interpreting th e HgbA1c in patients wit h hemolytic anemi a, iron deficiency and when the total hemoglobi n is < 9g/dL, due to a decrease in average age of red blood cells [id number] 05:52:00 Test Item Value Reference Range Interpretation Comments GLUBED (test code = GLUBED) 161 MG/DL 70-105 H [id number] 05:38:00 Test Item Value Reference Range Interpretation Comments PHOSPHOROUS (test code = PHOS) 3.2 mg/dl 2.5-4.6 N [id number] 05:38:00 Test Item Value Reference Range Interpretation Comments MAGNESIUM (test code = MAG) 2.1 mg/dl 1.8-2.5 N BASIC METABOLIC [id number] 05:06:00 Test Item Value Reference Range Interpretation [...] [Automated message] (test code = The system Itaro HEMINDEX) generated this result transmitted ref erence range: 1 NORMAL . The reference range was not used to int erpret this result as normal/abnormal . INDEX ICTERIC 1 Index/DL See_Comment [Automated me ssage] (test code = The system Itaro ICTINDEX) generated this result transmitted ref erence range: 1 NORMAL . The reference range was not used to int erpret this result as normal/abnormal . INDEX LIPEMIA 0 Index/DL See_Comment [Automated me ssage] (test code = The system Itaro LIPINDEX) generated this result transmitted ref erence range: 1 NORMAL . The reference range was not used to int erpret this result as normal/abnormal . CBC W/AUTO [id number] 04:59:00 Test Item Value Reference Range Interpretation [...] = BA#) 0.0 x10 3/uL 0.0-0.1 N [id number] 17:40:00 Test Item Value Reference Range Interpretation Comments GLUBED (test code = GLUBED) 122 MG/DL 70-105 H BASIC METABOLIC [id number] 07:03:00 Test Item Value Reference Range Interpretation [...] [Automated message] (test code = The system Itaro HEMINDEX) generated this result transmitted ref erence range: 1 NORMAL . The reference range was not used to int erpret this result as normal/abnormal . INDEX ICTERIC 1 Index/DL See_Comment [Automated me ssage] (test code = The system Itaro ICTINDEX) generated this result transmitted ref erence range: 1 NORMAL . The reference range was not used to int erpret this result as normal/abnormal . INDEX LIPEMIA 0 Index/DL See_Comment [Automated me ssage] (test code = The system Itaro LIPINDEX) generated this result transmitted ref erence range: 1 NORMAL . The reference range was not used to int erpret this result as normal/abnormal . [id number] 07:03:00 Test Item Value Reference Range Interpretation Comments PHOSPHOROUS (test code = PHOS) 3.0 mg/dl 2.5-4.6 N [id number] 07:03:00 Test Item Value Reference Range Interpretation Comments MAGNESIUM (test code = MAG) 1.5 mg/dl 1.8-2.5 L CBC W/AUTO [id number] 06:51:00 Test Item Value Reference Range Interpretation Comments WHITE BLOOD CELL (test 9.5 x10 3/uL 3.2-11.5 N code = WBC) RED BLOOD CELL (test 4.26 x10(6)/m 4.20-5.70 N code = RBC) HEMOGLOBIN (test code 10.8 g/dL 12.9-17.3 L NOTIFI ED JOHN = HGB) PHOENICIA RN HEMATOCRIT (test code 34.3 % 38.7-51.0 [...] x10 3/uL 0.0-0.1 N = BA#) SED [id number] 11:56:00 Test Item Value Reference Range Interpretation Comments SED RATE (test code = SEDW) 10 mm/hr 0-15 N BASIC METABOLIC [id number] 11:18:00 Test Item Value Reference Range Interpretation [...] [Automated message] (test code = The system Itaro HEMINDEX) generated this result transmitted ref erence range: 1 NORMAL . The reference range was not used to int erpret this result as normal/abnormal . INDEX ICTERIC 1 Index/DL See_Comment [Automated me ssage] (test code = The system Itaro ICTINDEX) generated this result transmitted ref erence [...] this result as normal/abnormal . CBC W/AUTO [id number] 11:09:00 Test Item Value Reference Range Interpretation [...] 0.0 x10 3/uL 0.0-0.1 N THYROID STIMULATING [id number] 05:46:00 Test Item Value Reference Range Interpretation Comments THYROID STIMULATING HORMONE 1.762 uIU/ml 0.450-5.330 N (test code = TSH) CBC W/AUTO [id number] 05:38:00 Test Item Value Reference Range Interpretation [...] 0.1 x10 3/uL 0.0-0.1 N BASIC METABOLIC [id number] 05:26:00 Test Item Value Reference Range Interpretation [...] [Automated message] (test code = The system [employer] HEMINDEX) generated this result transmitted ref erence range: 1 NORMAL . The reference range was not used to int erpret this result as normal/abnormal . INDEX ICTERIC 1 Index/DL See_Comment [Automated me ssage] (test code = The system Itaro ICTINDEX) generated this result transmitted ref erence range: 1 NORMAL . The reference range was not used to int erpret this result as normal/abnormal . INDEX LIPEMIA 0 Index/DL See_Comment [Automated me ssage] (test code = The system Itaro LIPINDEX) generated this result transmitted ref erence range: 1 NORMAL . The reference range was not used to int erpret this result as normal/abnormal . UA RFLX MICR CULT IF [id number] 22:47:00 Test Item Value Reference Range Interpretation [...] RiskForSepsis-no oth srcSpecimen Description: CLEAN CATCHBASIC METABOLIC [id number] 22:37:00 Test Item Value Reference Range Interpretation [...] [Automated message] (test code = The system Itaro HEMINDEX) generated this result transmitted ref erence range: 1 NORMAL . The reference range was not used to int erpret this result as normal/abnormal . INDEX ICTERIC 1 Index/DL See_Comment [Automated me ssage] (test code = The system Itaro ICTINDEX) generated this result transmitted ref erence [...] this result as normal/abnormal . LIVER FUNCTION [id number] 22:37:00 Test Item Value Reference Range Interpretation [...] code = 61 U/L 42-121 N ALKP) [id number] 22:37:00 Test Item Value Reference Range Interpretation Comments LIPASE (test code = LIP) 37 IU/L 22-51 N CBC W/AUTO [id number] 22:23:00 Test Item Value Reference Range Interpretation [...] 3/uL 0.0-0.1 N - CT ABD PELVIS [id number] 18:23:00 [facility] : 1975 Sex: MPatient Name: ALEX BURROUGHS Unit No: [id number] EXAMS: CPT: [id number] CT ABD PELVIS W/CONT 71586 EXAM: - CT ABD PELVIS W/CONT, on [...] colitis. No significant pericolonic inflammation. Name: MANJEETALEX [facility] EDPhys: Marvel Morris [address] [facility] : 1975 Age: 47 Sex: M [place], [place] [address]Hsfp No: [id number] Loc: N.ERS Exam Date: 11/21/2022 Status: DEP ER PH: FAX: PAGE 1 Signed Report(CONTINUED) Patient Name: ALEX BURROUGHS Unit No: [id number] EXAMS: CPT: [id number] CT ABD PELVIS W/CONT 99791 (Continued) 2. No obstructive uropathy or bowel obstruction. Normal appendix at 1823 Reported and signed by: MAIA BONILLA MD CC: Marvel HARO Technologist: JENNIFER Kovacs CTDI: 10.99 DLP: 598.17 Trscr Dt/Tm: 11/21/2022 (1822) by:[email or web address] Orig Print D/T: S: 11/21/2022 (1825) BATCH NO: N/A Name: NAT BURROUGHSAN [facility] Phys: Marvel Morris [address] : 1975 Age: 47 Sex: [place] [address] Loc: N.ERS Exam Date: 11/21/2022 Status: DEP ER PH: FAX: PAGE 2 SignedReport- CT ABD PELVIS [id number] 18:23:00 [facility] : 1975 Sex: MPatient Name: ALEX BURROUGHS Unit No: [id number] EXAMS: CPT: [id number] CT ABD PELVIS W/CONT 09976 EXAM: - CT ABD PELVIS W/CONT, on [...] No significant pericolonic inflammation. Name: ALEX BURROUGHS [facility] EDPhys: Marvel Morris [address] [facility] : 1975 Age: 47 Sex: M [place], [place] [address]Tkvu No: [id number] Loc: N.ERS Exam Date: 11/21/2022 Status: DEP ER PH: FAX: PAGE 1 Signed Report(CONTINUED) Patient Name: ALEX BURROUGHS Unit No: [id number] EXAMS: CPT: [id number] CT ABD PELVIS W/CONT 98335 (Continued) 2. No obstructive uropathy or bowel obstruction. Normal appendix at 1823 Reported and signed by: MAIA BONILLA MD CC: Marvel HARO Technologist: JENNIFER Kovacs CTDI: 10.99 DLP: 598.17 Trscr Dt/Tm: 11/21/2022(1822) by:[email or web address] Orig Print D/T: S: 11/21/2022 (1825) BATCH NO: N/A Name: ALEX BURROUGHS [facility] ED Phys: Marvel Morris [address] [facility] : 1975 Age: 47 Sex: [place] [address] Loc: N.ERS Exam Date: 11/21/2022 Status: DEP ER PH: FAX: PAGE 2 Signed ReportBASIC METABOLIC [id number] 16:50:00 Test Item Value Reference Range Interpretation [...] mg/dL 8.5-10.5 N = CA) LIVER FUNCTION [id number] 16:50:00 Test Item Value Reference Range Interpretation [...] code = 62 U/L 42-121 N ALKP) [id number] 16:50:00 Test Item Value Reference Range Interpretation Comments LIPASE (test code = LIP) 34 IU/L 22-51 N UA RFLX MICR CULT IF [id number] 16:38:00 Test Item Value Reference Range Interpretation [...] culture: Suprapubic PainSpecimen Description: CLEAN CATCHCBC W/AUTO [id number] 15:23:00 Test Item Value Reference Range Interpretation [...] x10 3/uL 0.0-0.1 N COMP. METABOLIC PANEL (48926)2022-08-24 22:30:45 Test Item Value Reference Range Interpretation Comments NA (test code = 137 mmol/L 135-145 3456362111) K (test code = 4.1 mmol/L 3.5-5.0 4799448193) CL (test code = 105 mmol/L 98-108 4479231048) CO2 TOTAL (test code 26 mmol/L 23-31 = 7357654279) AGAP (test code = 2-16 4348143135) BUN (test code = 10 mg/dL 7-23 6995813785) GLUCOSE (test code = 95 mg/dL 70-110 8277462660) CREATININE (test code 0.93 mg/dL 0.60-1.25 = 2951116171) TOTAL BILI (test code 0.5 mg/dL 0.1-1.1 = 6510480384) CALCIUM (test code = 8.8 mg/dL 8.6-10.6 0406194339) T PROTEIN (test code 7.1 g/dL 6.3-8.2 = 4813820873) ALBUMIN (test code = 4.0 g/dL 3.5-5.0 9057147683) ALK PHOS (test code = 80 U/L 34-122 5786879012) ALTv (test code = 19 U/L 5-50 1742-6) AST(SGOT) (test code 25 U/L 13-40 = 3320431985) eGFR (test code = mL/min/1.73m2 5605672652) ROBERTO (test code = ROBERTO) Association of [...] or urine or abnormalities in imaging tests). [facility] WITH [id number] 22:14:06 Test Item Value Reference Range Interpretation Comments WBC (test code = See_Comment [Automated 1111-2) message] The sy stem which generated this [...] (test code = 54.9 fL 38.5-51.6 H 21541-1) RDW-CV (test code = 21.0 % 12.1-15.4 H 788-0) PLT (test code = See_Comment H [Automated 777-3) message] The sy stem which generated this result transmitted reference range : 150 - 328 10*3/ ?L. The reference r carlota was not used to interpret this result as normal/abnormal . MPV (test code = 10.1 fL 9.8-13.0 73206-8) NRBC/100 WBC (test See_Comment [Automat ed code = 3751361887) message] The system which generated this result transmitted reference range : 0.0 - 10.0 /100 WBCs. The refer ence range was not u sed to interpret th is result as normal/abnormal . NRBC x10^3 (test code See_Comment [Auto mated = 2754137031) message] The s ystem which generated this result transmitted reference range : 10*3/?L. The reference range was not used to interpret this result as normal/abnormal . GRAN MAT (NEUT) % 52.4 % (test code = 770-8) IMM GRAN % (test code 0.30 % = 1256765589) LYMPH % (test code = 23.7 % 736-9) MONO % (test code = 15.7 % 5905-5) EOS % (test code = 6.3 % 713-8) BASO % (test code = 1.6 % 706-2) GRAN MAT x10^3(ANC) 3.94 10*3/uL 1.99-6.95 (test code = 9196287624) IMM GRAN x10^3 (test 0.00-0.06 code = 0780828443) LYMPH x10^3 (test code 1.78 10*3/uL 1.09-3.23 = 731-0) MONO x10^3 (test code 1.18 10*3/uL 0.36-1.02 H = 742-7) EOS x10^3 (test code = 0.47 10*3/uL 0.06-0.53 711-2) BASO x10^3 (test code 0.12 10*3/uL 0.01-0.09 H = 704-7) Lab Interpretation Abnormal (test code = 07581-1) [facility] [id number] 21:51:41 Test Item Value Reference Range Interpretation Comments LACTIC ACID (test code = 1.02 mmol/L 0.50-2.20 4657570018) Lab Interpretation (test code = Normal 18180-9) [facility]. METABOLIC PANEL ([id number])2022-07-03 05:30:27 Test Item Value Reference Range Interpretation Comments NA (test code = 140 mmol/L 135-145 7062034540) K (test code = 4.2 mmol/L 3.5-5.0 7362452743) CL (test code = 105 mmol/L 98-108 9051569753) CO2 TOTAL (test code 30 mmol/L 23-31 = 9180876936) AGAP (test code = 2-16 9437260295) BUN (test code = 13 mg/dL 7-23 2886957983) GLUCOSE (test code = 92 mg/dL 70-110 5685181342) CREATININE (test code 0.89 mg/dL 0.60-1.25 = 6934538075) TOTAL BILI (test code 0.4 mg/dL 0.1-1.1 = 6380809750) CALCIUM (test code = 9.2 mg/dL 8.6-10.6 7370060257) T PROTEIN (test code 7.2 g/dL 6.3-8.2 = 2938769139) ALBUMIN (test code = 4.3 g/dL 3.5-5.0 6937891883) ALK PHOS (test code = 62 U/L 34-122 1319217918) ALTv (test code = 19 U/L 5-50 1742-6) AST(SGOT) (test code 32 U/L 13-40 = 8118900790) eGFR (test code = mL/min/1.73m2 5727103125) ROBERTO (test code = ROBERTO) Association of [...] or urine or abnormalities in imaging tests). [facility] WITH [id number] 04:54:46 Test Item Value Reference Range Interpretation [...] RDW-SD (test code = 47.4 fL 38.5-51.6 85922-8) RDW-CV (test code = 18.8 % 12.1-15.4 H 788-0) PLT (test code = See_Comment H [Automated 777-3) message] The sy stem which generated this result transmitted reference range : 150 - 328 10*3/ ?L. The reference r carlota was not used to interpret this result as normal/abnormal . MPV (test code = 9.9 fL 9.8-13.0 89964-6) NRBC/100 WBC (test See_Comment [Automat ed code = 2152208238) message] The system which generated this result transmitted reference range : 0.0 - 10.0 /100 WBCs. The refer ence range was not u sed to interpret th is result as normal/abnormal . NRBC x10^3 (test code See_Comment [Auto mated = 2075614526) message] The s ystem which generated this result transmitted reference range : 10*3/?L. The reference range was not used to interpret this result as normal/abnormal . GRAN MAT (NEUT) % 52.0 % (test code = 770-8) IMM GRAN % (test code 0.30 % = 3741905079) LYMPH % (test code = 28.1 % 736-9) MONO % (test code = 16.8 % 5905-5) EOS % (test code = 1.6 % 713-8) BASO % (test code = 1.2 % 706-2) GRAN MAT x10^3(ANC) 3.91 10*3/uL 1.99-6.95 (test code = 8446227860) IMM GRAN x10^3 (test 0.00-0.06 code = 6884194048) LYMPH x10^3 (test code 2.11 10*3/uL 1.09-3.23 = 731-0) MONO x10^3 (test code 1.26 10*3/uL 0.36-1.02 H = 742-7) EOS x10^3 (test code = 0.12 10*3/uL 0.06-0.53 711-2) BASO x10^3 (test code 0.09 10*3/uL 0.01-0.09 = 704-7) Lab Interpretation Abnormal (test code = 52954-0) [facility] [id number] 15:55:55 Test Item Value Reference Range Interpretation Comments Case Report (test code Surgical Pathology ? ? = 4533759090) ?Case: [id number] ? Authorizing Provider: ?Marybel Sexton MD ? ? ? Collected: ? 05/13/2022 1129 ?Ordering Location: ? ? [facility] ? ? ?Received: ?05/13/2022 1621 ? [facility] ?Pathologist: ? Coleen Rosario MD ? Specimens: ? A) - LARGE INTESTINE, LEFT-DESCENDING COLON, random biopsies ? B) - LARGE INTESTINE, SIGMOID COLON, random biopsies ? C) - RECTUM, Random biopsies ? Final Diagnosis (test e8vbuUAzCVMdu4mtBYJclO code = 1846190197) FuZzEwMzNcZnRuYmpcdWMx IHtccnRmMVxlcGljMTAxMD XlAR9bpVypeMd7zKmnXIDy bfS5rROzOZqkb4aaANT2y3 oekzhuFMCkTOztPx2ugWEp jEsoEsFfFBNuCWu8xO39IL XghP1xhKKpOPn9YJMkdXWa akHeQvLcSOYwvWKwxEG1XT NfJU6aphjdMNkpUHfuUHVt jeK7BCGmnYTgN8IwJTMlVP 9uwipdCPT1IJqiXKZsUHR7 KmFcLTKio2Ubnlf8ZhQpzJ FyZFxwbGFpblxmczIwXHBh emfonRR7UWwgfN35BBMbdI fwQWCiASOzLMPVFL4WEBAL FVIQWSVHO5GWBjNRWqpkEN WGFgXKXSAFCC7VN2o7BLbx SHLrhQhyKCYjGHiaaA9kLW IwCWTqHWSYMC9TXZHlVUYN U0PQMXwWHCutIDdVZYDsEW QVVUWPYQEFVgfbJ0IDUFCo PFBMJ0FSRjiuPA7JSoPKR0 HXWHgXGOKFF8LASTYWUVTT VElDXHBhciAgICAgICAgSU 5ILSwBSaXTUFAJZwQPMO3W YxOaQSLMHCTFTLkrDJ2IOI LVWQVZQNEFQ1vIYSZOSFAN AHqcLZxRAL9INUsWFxqtO9 4CH3iZRLYSNUKZTPDDMYrc YXIgICAgICAgIFNFVkVSRU xZIEFDVElWRSBDSFJPTklD IENPTElUSVNccGFyICAgIC 7mQd5xB9GDGkMFQ42LNY7L IKELB1UWGFTJZGWZOXILKF lGSUVEIFxwYXJccGFyXGxp IPTpGIDfUGI8RMsnlB54FQ GcRt6gW62BK08sIUIEO93U AIWjSRFEAcXEIVQTVZ6AX7 a0HZnsJNXrxWpfANQiSRej uE9pHNZvXZ4iO87JL96IUy SAQBLHW8EoL4gLZIGGKWTV ZyxrR4LLLZFRNOgDWRGSNl lQVCBBQlNDRVNTLCBJTkNS RUFTRUQgTFlNUEhPUExBU0 0OH1iUHJTrgJNxTEHoJLJw OM1PCUcNMeVVLJNQKcTGDB 7CWxQjPGQKSVXNPPbqIE2O TOUVTYPCLMKFR7nAJSMZOJ RXXNhcPOiRGW8AHWvVArzk S1KIPROiZPQNCSWBWXAphG IfHFBmRTUpF69KQ7tHNKHJ VCBXSVRIIFNFVkVSRUxZIE FDVElWRSBDSFJPTklDIENP FMbWIFBvxTIdFNXuTN1eBm 0rK0IBWkEPT05IPI3AMXEN L4UJRKIEHSPAJHDLOUbLKW VEIFxwYXJccGFyXGxpNDUw EUJyOIJ5SSrbtZ65NLGqRe 5gYpRGENFZCGHCXT4IB61b QklPUFNZOiBccGFyXGxpMF xmaTBcbGluMCAgICAtIENP VM5WUYVyFMBCR6RKGSzWQZ ggVUxDRVIsIENSWVBUSVRJ GwyoI7CZOPDmTVGCR8DKOq biYP7BHcTXN7YHRQaLHUKD P8OVIAUGPNJRUPzIYROkgr AgICAgIElORklMVFJBVEUg DJ5cFMJBDI8SWKANO9DNKU EsIEFORCBDUllQVCBBUkNI UEESO1SEBsCYMQFPQ5HHGh EZT33sHMKFLJRALLBOZ5Fj Y5MBOXqtOVZbYJFfDTTVU1 1VPVUNGD4EQFaUVYufV8MJ RVJFTFkgQUNUSVZFIENIUk 9GTDNlJECVG9LYXDpKHNMu gaQaGGSvNE5GAMlXCW1OWG 9NQSBPUiBEWVNQTEFTSUEg SURFTlRJRklFRCBccGFyXH HpckswptDrKZfoLjk6ESJl CQzmNE8hVXBIRBXxLG2kRT 3kXQQeDZl3RPghIH8qsDCa XIIwadAaAkCxUKbnADE5q1 xydGYxXHNzdGVjZjIyMDAw JWSpc2vzLCRzlEUeSqHnZh NcZnRuYmpcdWMxXGRlZmYw q0xiu653jTOws3ihJTIdVp J4oWUxRFTesByuzbz6jMst TvEkTQJzm8rteiJqYdNeHU UbULWvNYPbaTFaY150WLVk QUfhr4nkx6CvBXLfpVTko7 T6YYNLRKjtDyGvP267m8zc r8jkhwFebPJ1NIHzBFC0QK bftsMhhvN9LTczkPKkCcZ4 IDtccmVkMFxncmVlbjBcYm z6HZSqI621YDO1wYtki1pp GMK4NVOnAQExAibaCq9eyZ FcZ030FLCtSOIABSBpyUk3 KJFewlTgcvTbuNBOi982Q7 75h3xbXJQckyNmkZpNddto w1hxZ089HBBjxDDyupCyIz GiRBRbdOVdkKH1FGGiDA1t pvcsVQeiBXdxVSUzyiH7SO XlxWOoO3EiONYwWM4fkwpq NFW4ARsuOPZuKQN0MdNoTE Dst2Yssqr9CjQcsg6jab24 BCR5m3PusDkmFNK2LTX5Cj VjFc3myZZxOLArAE6aCaQi yPAvJZLqcr80pXnxANfnvo CqbP3sWoHfJXGqaWUwSKCk XV7scPRhKISvxT0jvvphKT BnYnJkcmhlYWRccGdicmRy Yd9bzPxnHHE3PWnwS9rupU 2iUwB9SYvxB4ysbW9vXYd4 VOyjnVO8YLHemU8nAY9juu fwx1npAVvwBNclXRVyowU6 svM2PVTcpVDjV3DysJ9bEU CzJX1usrija3otAAP1WBwb DCCyFUG6IxDoJLZkl4Efpg m1UgVen3VjuXBoMRklO20e y573KDWlvxMmT1aqfJSzny qohEUnglxjAJrueyZ1OZVi XHBsYWluXGYxXGZzMjBcbG FuZzEwMzNcaGljaFxmMVxk TeHsWNOgLQtcB5ykXkXiJ8 YyXGZzMjBccGFyIEkgaGF2 EYSzLTWcw93ueTd1QPOoqt efx1IeLBDckQGziSRdeE6g saWbb3mjDSVeJCZnQBIoN0 ZzLBF0tMAlGKXqtQAjyUG8 BU8gvgXqSI9zIZIeXhnmab VgrSTvfuLaUSByGHhwl1zm QD8aUVPglJlxqE9zxVI6KG Dym1jvoEUrbXEhb0yrq8Sa bmFtZShzKSBtYXkgYXBwZW JjDS0rOERcnIWtskNba5I1 XqrzsLRgbhnjExsqmvX1FF navdneEMHoWSadX1jxTvVg EUWkoQvwHsbfh6NwVKVcOX ZzMjhccGFyfX0= Final Diagnosis Comment h3vnfARqKBHgcOGhAYIeZ0 (test code = arxbTuHEQjnGLcD6Cncxxq 8604329697) MGqeTF4wHG2ikUdleNMzrQ GsARQnWqTvj1zqy915zMBy s1lgRGFBthqvyWq5oAcaA0 0iv9L7DtusF98iiRFvYYM7 JNBoWDWaaRUbOUKmSRU9XK AdyGMsD8vtVWNzGM9gcxmi TTupGLqcSVAfjOZ6FNBmhQ ArM0HsKVUgCYyrVECbxxg2 QiYyUj3roUZxkTehZIotVN JkXHBsYWluXGZzMjAgRHIu YJYugOToTXUnnxY8qGF7PZ TitIdhDGTpl0FvFM3rHSWd mfY3hrCfs2x4cON7vVQbAO moX56sz2maLrRcPGOssp4= Clinical Information colitis (test code = 5843274382) Gross Description (test j7ebbYPvGKCynRMOHFOhOU code = 9722516095) YxWN3foSgoiYx2tJhuMMMn hqO4zXUzLCmsi2ktEIU6r1 llbiANClxkZWZmMVxwYXBl xrboEyO9JJufZPGmjlujGT z3DZjhVHRvzDJ2YPPygVQi A8SjNZJtAF4pvek6NAP0NM qvRFBrOmE0HRFvDxYgPwgx VMw2VOZilvJ0Kjf5MQSbBV OufLRyh1T7XKvuigoyWDDj aNAtZ165AXqov8JtsIKlJJ pccGFyZCANCntcKlxlcGlj g4LjnZVzTRfcUPZdIJGfDC binwylNCf3YSDcKMxwzPYt SO1hoPilYqybiYzmb2JdrI BcXGlkIDUxMDAyIFxcZGIg UI9ZExLyVLT6FVulWlwfEY s6BMk7UH7LZfHqTXYmZDJe UpV8IAVbOCu7HPtwEJ5TKP U7QDK8VTR4WZDyADKiZjdq ACz2GPBgSOhaHTApuMHzRE htBfFbGAJdOLnqvLCwRU6h fVxwbGFpblxmczIwIFNQRU LDVIKNEMJorMPkJL2JRCOk YOmfVKYrwGKCQIZ2AV0tGS ANClxsdHJwYXJcbGluMFxy sO7yNU1YXMw5mkDzBGKmGp VwU2PwC8jhIX1wPYFuhuJr MQRwwXPnVUDfszGds0AbXO amfpEzPYAgaRyhLRQ1tEIx RECaGIWpZDCkMB43CLqTEA MgbmFtZSwgVUggbnVtYmVy IGBgIGxhcmdlIGludGVzdG yiEVnrsSUkdXEaEBRzJM2u wZ7aTFEsMH7op35yYljldG OdOPFxZ3Q8FWhCMMWpwxTr B99ug5hlcVPnb9TodLPqvE lwbGUgdGFuLXBpbmsgaXJy KNo7xEIlFMAyVrZnmVtqv4 EjQNGaTTxkRJ48peLjMO9m LTAuMyBjbSBncmVhdGVzdC GykU9zjaSzn09wUZHcHYM4 RVQhATX5UGDmIFPyaWNzsj TgJ6ovEEyyaVPvAfXNkTNp z4NnG7jkIF1dlFZzCmfhpJ GcDRFysLuwe8YdgTXbQZXx u8NnbHIgBWvtSL9mXNS7Tn 4sdMKcVRUnvuX7k3ChWYkr KWJxZeicmA5vMBkuyD2xRA 2MOXKniWSOVEA8OI4fRHr6 PTxrIHGpO3YgK1TcarVxjX CkWHTwzaQez5ewKTL7KLQo aVIztNGfReSmJorlOWS1BO BuDLmuFT3Ng6uqOLTgkMHl DZX0CClkcAIjQEXgYRCtRS uxWbVyO2MUTBOmEvp6NtT2 JWItQRw9AEnxO9HZGUMyKM YpPmM2JYY9DpK0IIq2VIMJ Nu8pAHY2VTKvTcGsBBH3QV EzOSBcXHQgMiBcXGYgQXJp YWwgXFxmcyAxMCBcXGZsIF ttznZ1DFPxFBgkPEVgBuYd V6YBH9tEOG7iMkodLGLtAD cheZaboB4tMBNwH43fv2EJ a5BbZA2PMYf8seVmvylpnX 2qOBByhgMeMEprvVBiG0lc EdTyGhVZoLWnhR2kvbCVSX npTNBlQ0ViavRaBMjvXMUz fp4irImfRUhfIuKsvASpRP dpdGggdGhlIHBhdGllbnRc S8E5cuYoSF7jNESRBSPbpU 2aWJHgJKNmnOLeT9RixG59 APQ4fE7jRNJnnPwlu8iaOI OnyB3fPVIpKN6cb32iXzve dWAwFZDmK0X3EVxBHQPdsv LdQ59gt5ugqKCvl0ShfFEw dGlwbGUgdGFuLXllbGxvdy AuqhPiB3UxEGOjf20krCR1 tKDnqALxZrHhC13exyStDE wgDxTfCS9tZXIlKZeaUGqf RTX8XKO9QMSafGPnk2hdml zhUT5bOCylMM06UQarYL2k BKFxXLraSRMbU3JtA9V6VG lbHWFtJHYvmXVbmL4etaRl gtKdmCw9HZXrZWJ7yNBxmG xaPLVeLwukwAB2DXBcEaNd ovEju2OsoTm2eIGhYZwmUX TlzM1wlC7kEnXuEKbiuzLj SYoyncKpCBbkYKPeF61mo2 ACz5NuCEQbw6ienFvle0Wo dGVuZFxwYXJccGFyZFxzbC 9eRiLhk4bhoPg8JSsdlcE2 MSUwkg0trDyqzC7nAZe3FB xoRHXvN4ZjA4VhZBsdIVY0 MTAwMiBcXGRiICBPVlIgIi EoQHO2DKS4LyW4LRn4VPZN FlUwUoVnOwHmEVB1AhsjCH d4PNn4QDkCIoWoWyZ8FUM8 YQBdTPP1GPI8UTdihJRePO xcZiBBcmlhbCBcXGZzIDEw KWtzYfjlSUipF28deKjmkL 1hQrJjANNMBWOVYF6YTsTJ XHBhciANClxwbGFpblxlcG ljTmVzdERvYzEgDQpcbHRy cGFyXGxpbjBccmluMCANCl xsdHJjaFxmczIyIFNwZWNp vWBbTXWxaDUnewPwPUr3DQ RqaP0kSa7ezPGltN7tcKJa UZwpZMAxq9d9sWQ5tQAgoA S6vIYsaTzbLgSrUO2gpVUh FPQNOQ42sXKrdbNnLBMxZY A6vS2lXZIgjaHfgMQowL0v a9bxy7rcYsAuN7V9SMStGT Moi64htKW9pqJeUxX2KTFh ljEopfIhI4McVALro77jpZ M8wREniXWzTnMxV96rveMo AYbyNnApIN3kSQKvAArdEG elDTR9MFW8SEIjkZEwr4lf xvbsPE73VOjyIQ9iPFjgVY 4nEZUeNPzqQRUtI4HyI3I9 GTthKNCqQMSvyDJftJ9olv MitcEhjCg1HMLsCEA2xGIb bFwdLLGqLpanuNC3HEHiXr MquoKro0BybPi7vEBiJYkt REBbsA1frT1pBgYvAZgoyw UgXGxpbmUgSnVsaWUgTWNJ wPndxzQ7RNYBQOKpDTSRVP kNClxlcGljTmVzdERvYzBc pxB5EIGscVAiITG9ZG7hIB ZbhrsqEMWqLRXpRMI7SOzi rF21uHBuKPOmJZBtdQCrmF rboSUhayPIGdefjR2wGkDw k9tzbNi6BTTVCljdqPNelh ygljI2IXIab8lbgWbwx2Mi rKJuXF5biAkszA1pGiLfAi ANCn0= Disclaimer (test code = q1hczBOkDCVvc7dsAOExiX [id number]) FuZzEwMzNcZnRuYmpcdWMx ZQzonoDiHMdge2KdB7BfTe AwMFxhbnNpXGRlZmxhbmcx CPBwESG4pwHjFVSaODqaON HnFQebPx6raFZtkWykGpBn CHPdx3gqbfBBSUmgKpOjH3 69KBUmLNzfh1fyr3BuTNBq vIWal3E1NHVLcyqeiBj3mR jgD63fk7N7CbwyI2cbRZYd USRlG0NaZC3sTELcJdv8JA Y8UJT6SFBbBIFlN5IhGW1e FPOpdQWwWQf1a5gsqHubSW MqFPM6q3mwAZhzxjEiGZ9a ru1tcFg1j0pybxRjBWRtHS PnuDTYMCBnC0TkyBwqMg5a yQm9vLlqBuijQTO5Klp9LT 2nhw09gzq5sOrzJAZvdqep UgL4JFziGHVyxzqhGMl7NB cgAOGpaBX5TLEjlNUxA8Xn KZBdCY2pxpe3KZQ2CRckJV QkNbJ8BLVacYVfLBOsiKiy CTyhz838JMI9VyOyOS5zQ5 Rel1G1sF3kyPZmQOTdbTDj ZzImASEsve8jiATvPSfpu6 JjGRX9yqS2nGDrlZZhDNYs GS89Oqkwx0JsIcuwe8VqK5 9juHE8TEuex8xfXO3mMuI9 ufGlYCiky2ilyY3uQyR3NB tqLM6fHV5oVANysW5jdoyw XHBnYnJkcmhlYWRccGdicm IcSb4luLebHXX8NSweO8qi jK4iCrP7DUsvD9ugdC8pHF a5CEsksLC9MTKwnA6qKO5d vxxei3fdYYfoJAaqLABaqw T2rzS4IOVkgSThE6DmvP0e LZUzHC7txfjqu8adJCI3SY syXQKiUJD3ErQlSLSqi0Vo fkw3CcGrs5KbwJIxDYcbN9 3te047BHArfrMpV3uqiQKi wegklTExijgqPAtyvaU9RW WxaeMww1UiYWWlNAY6UTyy LBtihBOiEWHzoOffk1juU6 RscGFyXHBsYWluXGYxXGZz MjBcbGFuZzEwMzNcaGljaF ihTZdyJqWdWSFnJTzeL9oj KyXwS3EuCFJsVuHpzYBlS6 ggVGhpcyByZXBvcnQgbWF5 KJfjB2x5TIAozfOlqUx3sy LlXkBqWZXrGVG7OEeojACu EACsq6QdtdlbgONvAo4qiI RuDNLwqU9aKHIfXVEeWYlg GW5teMq2OZXSnVYvyOJwFd EDGYGwFX76ezFhACJMtnyy b8H3JEqbZRCpz1CgwGStJ3 byz2QlYRSok26zEZ2hf2W1 p8dzEAL0PZ8mr3DzVXTghL CwiUIfJKOlr8Xvfecej6Qc NKNwyeSrp2VwGHFcotJadQ VgVXWrpgGvgi6mplCsMHBv PCUeX5SlbzrtuXfodpWcAR Ihrb6ayrEuWPL1YERIBDKw GLEpx2NlbZ7gbBDVYDO1fD Yqld8mvnWOzOBsCYFnga76 PXVwYG5kG4ctIVIiTWNqpv JpbXKgq6BmKDFssDV3eIAl LW4FAtIUn59qMGFqKBERsm CdGPApzYpxxJY9kmO2hZ7g IChGREEpLlx+IFRoZSBGRE LfTL7sqrBbf8WfamKssYog UZCepNDhm8YvnUYdf5BapK jkk0WecBLyrXVpIM5zTXSy clxwYXIgVVRNQiBMYWJvcm C3m6SnJRDwLFXvQBN1hEug rmp6CDPqjI2bALKfE6mpik tfPFmhSEOxm6StlM3woMMN wAKro4BwfVCrtCPQbLLtAM 2hkgGtCKaCPZyJPKN6coWx TDDac1YfADylH0ehW64ruS yqbQz8vBG9XYL3bD6nRua+ IFxwYXJccGFyIEFwcHJvcH XgYJFssVthafUeB8XfblFv vI4eaTSickIeMC7tRP9cZ5 Y0dVFbABCkxmIsk6keVRnk dmUgYmVlbiByZXZpZXdlZC Tlh8TyGKmiTBB2MExvhyGp bmNsdWRpbmcgSCZFLCBTcG LqwXCsYEU8LMvxoxTyaiLl FC3dgV0cbHjwuX5vdIHvpF D1aeueMTRkEPNlyGeeJEWy RK0htIPcVDGqduVDmMgrnV QylM4eC9GyWURaVYPtsl9l NLSriE2mNJvkd3EkivxcXK KmTHNmSNCycsWpyv2xLHMy xTGBHA3OAWqiwGWev5Pkxa XyE9iCGAP8FLEjTtPwEvjy ACVgcMQewGSvRVYujz51MI HxhX6lzRnaPSYspC5vbD9h iDpzvS1gXyFzOrUoWBxqJE 4tDTLvW0frnHBfFDDrIULc E1zlBlEwbX5blHnhOJirIg NkQrDrSYzxDDW0mZ== Embedded Images (test code = 4010326025) [facility] Culture - Peripheral # [id number] 20:01:59 Test Item Value Reference Range Interpretation Comments Blood Culture-Aerobic No organisms No growth Previo us (test code = 11995-5) isolated prelim inary verified result was Culture [...] Culture-Anaerobic isolated preliminar y (test code = 14052-5) verifi ed result was Culture In Progress [...] CDT Lab Interpretation Normal (test code = 29032-7) [facility] Culture - Peripheral # [id number] 20:01:59 Test Item Value Reference Range Interpretation Comments Blood Culture-Aerobic No organisms No growth Previo us (test code = 35683-1) isolated prelim inary verified result was Culture [...] Culture-Anaerobic isolated preliminar y (test code = 10999-9) verifi ed result was Culture In Progress [...] CDT Lab Interpretation Normal (test code = 56849-5) [facility] # [id number] 20:01:59 Test Item Value Reference Range Interpretation Comments Blood Culture-Aerobic No organisms No growth Previo us (test code = 03206-2) isolated prelim inary verified result was Culture [...] Culture-Anaerobic isolated preliminar y (test code = 25790-0) verifi ed result was Culture In Progress [...] CDT Lab Interpretation Normal (test code = 71797-3) [facility] # [id number] 20:01:59 Test Item Value Reference Range Interpretation Comments Blood Culture-Aerobic No organisms No growth Previo us (test code = 85042-1) isolated prelim inary verified result was Culture [...] Culture-Anaerobic isolated preliminar y (test code = 51550-5) verifi ed result was Culture In Progress [...] CDT Lab Interpretation Normal (test code = 77416-8) [facility] TOM[facility] AM-0500 Routine 2022-05-13 13:43:26 Test Item Value Reference Range Interpretation Comments ABO & RH (test code O Positive Performe d at [facility] = 20) Laboratory Serv [facility] [place], [place] [id number] Free: [phone] A No. [id number] IAT (test code = Negative Performed a t [facility] 1185) Laboratory Serv [facility] [place] [phone] Free: [phone] A No. [id number] [facility]OM[facility] AM-0500 Routine 2022-05-13 13:43:26 Test Item Value Reference Range Interpretation Comments ABO & RH (test code O Positive Performe d at [facility] = 20) Laboratory [facility] [place], [place] [id number] Free: [phone] A No. [id number] IAT (test code = Negative Performed a t [facility] 1185) Laboratory Serv [facility] Blood [facility] [place] [phone] Free: [phone] A No. [id number] [facility] B12, [id number] 22:16:10 Test Item Value Reference Range Interpretation Comments VIT B12 (test code = 603 pg/mL 240-930 [id number]) ROBERTO (test code = ROBERTO) Biotin has been reported to cause a positive bias, interpret results relative to patient's use of biotin. Lab Interpretation (test Normal code = 04743-9) [facility] B[facility], [id number] 22:16:10 Test Item Value Reference Range Interpretation Comments VIT B12 (test code = 603 pg/mL 240-930 [id number]) ROBERTO (test code = ROBERTO) Biotin has been reported to cause a positive bias, interpret results relative to patient's use of biotin. Lab Interpretation (test Normal code = 35544-3) [facility] D, [id number] 21:50:29 Test Item Value Reference Range Interpretation Comments VIT D 25OH (test code = 25-80 L 92616-0) ROBERTO (test code = ROBERTO) Deficiency: <20 ng/mLInsufficiency: 20-24 ng/mLOptimal: 25-80 ng/mL Lab Interpretation (test Abnormal code = 14295-2) [facility], [id number] 21:50:29 Test Item Value Reference Range Interpretation Comments VIT D 25OH (test code = 25-80 L 47174-9) ROBERTO (test code = ROBERTO) Deficiency: <20 ng/mLInsufficiency: 20-24 ng/mLOptimal: 25-80 ng/mL Lab Interpretation (test Abnormal code = 62541-9) [facility]C-REACTIVE [id number] 18:56:01 Test Item Value Reference Range Interpretation Comments CRP (test code = 0.9 mg/dL See_Comment H [Automated message] [id number]) The system Itaro generated this result transmit eunice reference range : <=0.8. The refe rence range was not u sed to interpret th is result as normal/abnormal . Lab Interpretation (test Abnormal code = 98285-7) [facility] [id number] 18:56:01 Test Item Value Reference Range Interpretation Comments CRP (test code = 0.9 mg/dL See_Comment H [Automated message] [id number]) The system Itaro generated this result transmit eunice reference range : <=0.8. The refe rence range was not u sed to interpret th is result as normal/abnormal . Lab Interpretation (test Abnormal code = 40882-3) [facility] HospitalTHYROID STIMULATING [id number] 13:43:08 Test Item Value Reference Range Interpretation Comments TSH (test code = See_Comment H [Automated message] [id number]) The system Itaro generated this result transmitted ref erence range: 0.45 - 4 .70 mIU/L. The refe rence range was not u sed to interpret this result as normal/abnor mal. Lab Interpretation (test Abnormal code = 58186-1) [facility] HospitalTH[facility]IM[facility] [id number] 13:43:08 Test Item Value Reference Range Interpretation Comments TSH (test code = See_Comment H [Automated message] [id number]) The system Itaro generated this result transmitted ref erence range: 0.45 - 4 .70 mIU/L. The refe rence range was not u sed to interpret this result as normal/abnor mal. Lab Interpretation (test Abnormal code = 49749-1) [facility]AL [id number] 13:21:44 Test Item Value Reference Range Interpretation Comments NT-proBNP (test code 54 pg/mL See_Comment [Autom ated = [id number]) message] The system which generated this result transmitted reference range : <=125. The reference range was not used to interpret this result as normal/abnormal . ROBERTO (test code = ROBERTO) Biotin has been reported to cause a negative bias, interpret results relative to patient's use of biotin. Lab Interpretation Normal (test code = 64712-5) [facility] [id number] 13:21:44 Test Item Value Reference Range Interpretation Comments NT-proBNP (test code 54 pg/mL See_Comment [Autom ated = [id number]) message] The system which generated this result transmitted reference range : <=125. The reference range was not used to interpret this result as normal/abnormal . ROBERTO (test code = ROBERTO) Biotin has been reported to cause a negative bias, interpret results relative to patient's use of biotin. Lab Interpretation Normal (test code = 41825-9) [facility] HospitalLIP[facility] PAN[facility] (68531)(TOTAL CHOLESTEROL, TRIGLYCERIDES, HDL)2022-05-12 13:12:48 Test Item Value Reference Range Interpretation Comments CHOL (test code = 124 mg/dL 120-200 0550723101) HDL (test code = 27 mg/dL See_Comment L [Automated message] [id number]) The system Itaro generated this result transmit eunice reference range : >=40. The refer ence range was not u sed to interpret th is result as normal/abnormal . HDLC RATIO (test code = See_Comment [Au tomated message] [id number]) The system Itaro generated this result transmit eunice reference range : <=5.0. The refe rence range was not u sed to interpret th is result as normal/abnormal . TRIG (test code = 104 mg/dL 30-170 7745454909) LDL CHOL (test code = 76 mg/dL See_Comment [Auto mated message] 54467-9) The system Itaro generated this result transmit eunice reference range : <=160. The refe rence range was not u sed to interpret th is result as normal/abnormal . VLDL (test code = 21 mg/dL 5-60 9212067298) Lab Interpretation (test Abnormal code = 77268-2) [facility] (18005)(TOTAL CHOLESTEROL, TRIGLYCERIDES, HDL)2022-05-12 13:12:48 Test Item Value Reference Range Interpretation Comments CHOL (test code = 124 mg/dL 120-200 2242790757) HDL (test code = 27 mg/dL See_Comment L [Automated message] [id number]) The system Itaro generated this result transmit eunice reference range : >=40. The refer ence range was not u sed to interpret th is result as normal/abnormal . HDLC RATIO (test code = See_Comment [Au tomated message] [id number]) The system Itaro generated this result transmit eunice reference range : <=5.0. The refe rence range was not u sed to interpret th is result as normal/abnormal . TRIG (test code = 104 mg/dL 30-170 4044898626) LDL CHOL (test code = 76 mg/dL See_Comment [Auto mated message] 28147-0) The system Itaro generated this result transmit eunice reference range : <=160. The refe rence range was not u sed to interpret th is result as normal/abnormal . VLDL (test code = 21 mg/dL 5-60 6699238133) Lab Interpretation (test Abnormal code = 64334-9) [facility]:12[facility]47 Test Item Value Reference Range Interpretation Comments MAGNESIUM (test code = 4478565071) 1.8 mg/dL 1.7-2.4 Lab Interpretation (test code = Normal 65787-5) [facility] 13:12:47 Test Item Value Reference Range Interpretation Comments MAGNESIUM (test code = 9237314154) 1.8 mg/dL 1.7-2.4 Lab Interpretation (test code = Normal 83671-7) [facility]. METABOLIC PANEL (64103)2022-05-12 13:12:27 Test Item Value Reference Range Interpretation Comments NA (test code = 139 mmol/L 135-145 6296734103) K (test code = 3.5 mmol/L 3.5-5 1621312318) CL (test code = 106 mmol/L 98-108 8067040989) CO2 TOTAL (test code = 27 mmol/L 23-31 1637046265) AGAP (test code = 2-16 8991314249) BUN (test code = 7 mg/dL 7-23 8142105636) GLUCOSE (test code = 87 mg/dL 70-110 2004663237) CREATININE (test code = 0.89 mg/dL 0.6-1.25 4709965528) TOTAL BILI (test code = 0.3 mg/dL 0.1-1.3 9517497891) CALCIUM (test code = 8.4 mg/dL 8.6-10.6 L 3554831341) T PROTEIN (test code = 6.7 g/dL 6.3-8.2 7468359125) ALBUMIN (test code = 3.5 g/dL 3.5-5 4880515131) ALK PHOS (test code = 81 U/L 34-122 5549667858) ALTv (test code = 13 U/L 5-50 1742-6) AST(SGOT) (test code = 22 U/L 13-40 0736915209) eGFR (test code = mL/min/1.73m2 5659282844) ROBERTO (test code = ROBERTO) Association of [...] tests). Lab Interpretation Abnormal (test code = 66508-5) [facility] 13:12:27 Test Item Value Reference Range Interpretation Comments PHOSPHORUS (test code = 2817932485) 3.8 mg/dL 2.5-5 Lab Interpretation (test code = Normal 83542-1) [facility]. METABOLIC PANEL ([id number])2022-05-12 13:12:27 Test Item Value Reference Range Interpretation Comments NA (test code = 139 mmol/L 135-145 5573209884) K (test code = 3.5 mmol/L 3.5-5 9557650604) CL (test code = 106 mmol/L 98-108 5126282989) CO2 TOTAL (test code = 27 mmol/L 23-31 9184284288) AGAP (test code = 2-16 7814839553) BUN (test code = 7 mg/dL 7-23 0323207653) GLUCOSE (test code = 87 mg/dL 70-110 0367456301) CREATININE (test code = 0.89 mg/dL 0.6-1.25 3847888116) TOTAL BILI (test code = 0.3 mg/dL 0.1-1.9 0364360575) CALCIUM (test code = 8.4 mg/dL 8.6-10.6 L 0409863724) T PROTEIN (test code = 6.7 g/dL 6.3-8.2 7870492908) ALBUMIN (test code = 3.5 g/dL 3.5-5 9272924784) ALK PHOS (test code = 81 U/L 34-122 5312179849) ALTv (test code = 13 U/L 5-50 1742-6) AST(SGOT) (test code = 22 U/L 13-40 0258077406) eGFR (test code = mL/min/1.73m2 4950991320) ROBERTO (test code = ROBERTO) Association of [...] tests). Lab Interpretation Abnormal (test code = 70983-0) [facility] 13:12:27 Test Item Value Reference Range Interpretation Comments PHOSPHORUS (test code = 0377227476) 3.8 mg/dL 2.5-5 Lab Interpretation (test code = Normal 02575-5) [facility] WITH [id number] 13:09:25 Test Item Value Reference Range Interpretation [...] RDW-SD (test code = 39.2 fL 38.5-51.6 00253-1) RDW-CV (test code = 14.7 % 12.1-15.4 788-0) PLT (test code = See_Comment H [Automated 777-3) message] The sy stem which generated this result transmitted reference range : 150 - 328 10*3/ ?L. The reference r carlota was not used to interpret this result as normal/abnormal . MPV (test code = 10.1 fL 9.8-13 78489-5) NRBC/100 WBC (test See_Comment [Automat ed code = 4101158350) message] The system which generated this result transmitted reference range : 0.0 - 10.0 /100 WBCs. The refer ence range was not u sed to interpret th is result as normal/abnormal . NRBC x10^3 (test code See_Comment [Auto mated = 6998810187) message] The s ystem which generated this result transmitted reference range : 10*3/?L. The reference range was not used to interpret this result as normal/abnormal . GRAN MAT (NEUT) % 46.1 % (test code = 770-8) IMM GRAN % (test code 0.10 % = 1857822528) LYMPH % (test code = 33.9 % 736-9) MONO % (test code = 11.8 % 5905-5) EOS % (test code = 6.3 % 713-8) BASO % (test code = 1.8 % 706-2) GRAN MAT x10^3(ANC) 3.27 10*3/uL 1.99-6.95 (test code = 7357972158) IMM GRAN x10^3 (test 0-0.06 code = 5969709416) LYMPH x10^3 (test code 2.41 10*3/uL 1.09-3.23 = 731-0) MONO x10^3 (test code 0.84 10*3/uL 0.36-1.02 = 742-7) EOS x10^3 (test code = 0.45 10*3/uL 0.06-0.53 711-2) BASO x10^3 (test code 0.13 10*3/uL 0.01-0.09 H = 704-7) Lab Interpretation Abnormal (test code = 10709-3) [facility] WITH [id number] 13:09:25 Test Item Value Reference Range Interpretation [...] RDW-SD (test code = 39.2 fL 38.5-51.6 46320-5) RDW-CV (test code = 14.7 % 12.1-15.4 788-0) PLT (test code = See_Comment H [Automated 777-3) message] The sy stem which generated this result transmitted reference range : 150 - 328 10*3/ ?L. The reference r carlota was not used to interpret this result as normal/abnormal . MPV (test code = 10.1 fL 9.8-13 23605-1) NRBC/100 WBC (test See_Comment [Automat ed code = 5030637827) message] The system which generated this result transmitted reference range : 0.0 - 10.0 /100 WBCs. The refer ence range was not u sed to interpret th is result as normal/abnormal . NRBC x10^3 (test code See_Comment [Auto mated = 3498886695) message] The s ystem which generated this result transmitted reference range : 10*3/?L. The reference range was not used to interpret this result as normal/abnormal . GRAN MAT (NEUT) % 46.1 % (test code = 770-8) IMM GRAN % (test code 0.10 % = 9771469900) LYMPH % (test code = 33.9 % 736-9) MONO % (test code = 11.8 % 5905-5) EOS % (test code = 6.3 % 713-8) BASO % (test code = 1.8 % 706-2) GRAN MAT x10^3(ANC) 3.27 10*3/uL 1.99-6.95 (test code = 1432243963) IMM GRAN x10^3 (test 0-0.06 code = 4122658875) LYMPH x10^3 (test code 2.41 10*3/uL 1.09-3.23 = 731-0) MONO x10^3 (test code 0.84 10*3/uL 0.36-1.02 = 742-7) EOS x10^3 (test code = 0.45 10*3/uL 0.06-0.53 711-2) BASO x10^3 (test code 0.13 10*3/uL 0.01-0.09 H = 704-7) Lab Interpretation Abnormal (test code = 63443-9) [facility] Hospital[facility]th[facility] Time / [id number] 13:06:44 Test Item Value Reference Range Interpretation Comments PROTIME PATIENT (test See_Comment H [Auto mated message] code = 5964-2) The system [employer] generated this result transmitted ref erence range: 12.0 - 1 4.7 Seconds. The reference range was not used to int erpret this result as normal/abnormal . INR (test code = 6301-6) Nor mal INR <1.1; Warfarin Therap eutic range 2.0 to 3. 0 or 2.5 to 3.5, dep ending upon the indica tions. Lab Interpretation (test Abnormal code = 36349-3) [facility] Time / [id number] 13:06:44 Test Item Value Reference Range Interpretation Comments PROTIME PATIENT (test See_Comment H [Auto mated message] code = 5964-2) The system [employer] generated this result transmitted ref erence range: 12.0 - 1 4.7 Seconds. The reference range was not used to int erpret this result as normal/abnormal . INR (test code = 6301-6) Nor mal INR <1.1; Warfarin Therap eutic range 2.0 to 3. 0 or 2.5 to 3.5, dep ending upon the indica tions. Lab Interpretation (test Abnormal code = 50870-9) [facility] [id number] 02:59:10 Test Item Value Reference Range Interpretation Comments ESR (test code = See_Comment H [Automated message] 89557-8) The system [employer] generated this result transmitted ref erence range: 0 - 10 m m/HR. The reference r carlota was not used to interpret this result as normal/abnor mal. Lab Interpretation (test Abnormal code = 54049-4) [facility] [id number] 02:59:10 Test Item Value Reference Range Interpretation Comments ESR (test code = See_Comment H [Automated message] 91200-6) The system [employer] generated this result transmitted ref erence range: 0 - 10 m m/HR. The reference r carlota was not used to interpret this result as normal/abnor mal. Lab Interpretation (test Abnormal code = 20893-2) [facility] HospitalGLYCOSYLATED HEMOGLOBIN (A1C)2022-05-12 02:20:40 Test Item Value Reference Range Interpretation Comments HGB A1C (test code = 6.1 % 4-5.7 H 4548-4) ROBERTO (test code = ROBERTO) Reference RangesNormal: <5.7%Prediabetes: 5.7 - 6.4%Diabetes: > 6.5% Lab Interpretation (test Abnormal code = 76934-3) [facility] Hospital[facility]GLOBIN (A1C)2022-05-12 02:20:40 Test Item Value Reference Range Interpretation Comments HGB A1C (test code = 6.1 % 4-5.7 H 4548-4) ROBERTO (test code = ROBERTO) Reference RangesNormal: <5.7%Prediabetes: 5.7 - 6.4%Diabetes: > 6.5% Lab Interpretation (test Abnormal code = 77426-1) [facility]. METABOLIC PANEL ([id number])2022-05-11 19:45:12 Test Item Value Reference Range Interpretation Comments NA (test code = 139 mmol/L 135-145 6447685530) K (test code = 4.1 mmol/L 3.5-5 8524776159) CL (test code = 105 mmol/L 98-108 4961745906) CO2 TOTAL (test code 24 mmol/L 23-31 = 6324033896) AGAP (test code = 2-16 3656747030) BUN (test code = 8 mg/dL 7-23 1400951512) GLUCOSE (test code = 84 mg/dL 70-110 6763139755) CREATININE (test code 0.93 mg/dL 0.6-1.25 = 8595383488) TOTAL BILI (test code 0.3 mg/dL 0.1-1.1 = 4707680548) CALCIUM (test code = 9.4 mg/dL 8.6-10.6 5367733945) T PROTEIN (test code 7.3 g/dL 6.3-8.2 = 7287975985) ALBUMIN (test code = 4.0 g/dL 3.5-5 1246212430) ALK PHOS (test code = 85 U/L 34-122 9949716186) ALTv (test code = 14 U/L 5-50 2-6) AST(SGOT) (test code 21 U/L 13-40 = 6053878167) eGFR (test code = mL/min/1.73m2 1636372229) ROBERTO (test code = ROBERTO) Association of [...] or abnormalities in imaging tests). [facility]. METABOLIC PANEL ([id number])2022-05-11 19:45:12 Test Item Value Reference Range Interpretation Comments NA (test code = 139 mmol/L 135-145 8107328179) K (test code = 4.1 mmol/L 3.5-5 3176897753) CL (test code = 105 mmol/L 98-108 7395105012) CO2 TOTAL (test code 24 mmol/L 23-31 = 0645760512) AGAP (test code = 2-16 4588809957) BUN (test code = 8 mg/dL 7-23 4256853335) GLUCOSE (test code = 84 mg/dL 70-110 5398587977) CREATININE (test code 0.93 mg/dL 0.6-1.25 = 7907719240) TOTAL BILI (test code 0.3 mg/dL 0.1-1.1 = 3299602097) CALCIUM (test code = 9.4 mg/dL 8.6-10.6 1100924244) T PROTEIN (test code 7.3 g/dL 6.3-8.2 = 2120627618) ALBUMIN (test code = 4.0 g/dL 3.5-5 2628247473) ALK PHOS (test code = 85 U/L 34-122 4430444861) ALTv (test code = 14 U/L 5-50 1742-6) AST(SGOT) (test code 21 U/L 13-40 = 9590287846) eGFR (test code = mL/min/1.73m2 2159489600) ROBERTO (test code = ROBERTO) Association of [...] or urine or abnormalities in imaging tests). [facility] HospitalLIP[facility]2022[facility] 19:44:31 Test Item Value Reference Range Interpretation Comments LIPASE (test code = 2791808170) 116 U/L 0-220 Lab Interpretation (test code = Normal 41529-5) [facility]2022[facility] 19:44:31 Test Item Value Reference Range Interpretation Comments LIPASE (test code = 4933561474) 116 U/L 0-220 Lab Interpretation (test code = Normal 92918-2) [facility] HospitalCB WITH [id number] 19:33:50 Test Item Value Reference Range Interpretation Comments WBC (test code = See_Comment [Automated 0751-2) message] The sy stem which generated this [...] RDW-SD (test code = 38.9 fL 38.5-51.6 69560-0) RDW-CV (test code = 14.7 % 12.1-15.4 788-0) PLT (test code = See_Comment H [Automated 777-3) message] The sy stem which generated this result transmitted reference range : 150 - 328 10*3/ ?L. The reference r carlota was not used to interpret this result as normal/abnormal . MPV (test code = 10.1 fL 9.8-13 96109-3) NRBC/100 WBC (test See_Comment [Automat ed code = 7918870259) message] The system which generated this result transmitted reference range : 0.0 - 10.0 /100 WBCs. The refer ence range was not u sed to interpret th is result as normal/abnormal . NRBC x10^3 (test code See_Comment [Auto mated = 2793427406) message] The s ystem which generated this result transmitted reference range : 10*3/?L. The reference range was not used to interpret this result as normal/abnormal . GRAN MAT (NEUT) % 50.3 % (test code = 770-8) IMM GRAN % (test code 0.00 % = 2963610707) LYMPH % (test code = 28.7 % 736-9) MONO % (test code = 13.9 % 5905-5) EOS % (test code = 5.3 % 713-8) BASO % (test code = 1.8 % 706-2) GRAN MAT x10^3(ANC) 3.14 10*3/uL 1.99-6.95 (test code = 1079897599) IMM GRAN x10^3 (test 0-0.06 code = 7917228902) LYMPH x10^3 (test code 1.79 10*3/uL 1.09-3.23 = 731-0) MONO x10^3 (test code 0.87 10*3/uL 0.36-1.02 = 742-7) EOS x10^3 (test code = 0.33 10*3/uL 0.06-0.53 711-2) BASO x10^3 (test code 0.11 10*3/uL 0.01-0.09 H = 704-7) Lab Interpretation Abnormal (test code = 70273-1) [facility] WITH [id number] 19:33:50 Test Item Value Reference Range Interpretation Comments WBC (test code = See_Comment [Automated 5390-2) message] The sy stem which generated this result transmitted reference range : 4.20 - 10.70 10*3/?L. The reference range was not used to interpret this result as normal/abnormal . RBC (test code = See_Comment [Automated 779-8) message] The sy stem which generated this [...] RDW-SD (test code = 38.9 fL 38.5-51.6 44742-5) RDW-CV (test code = 14.7 % 12.1-15.4 788-0) PLT (test code = See_Comment H [Automated 777-3) message] The sy stem which generated this result transmitted reference range : 150 - 328 10*3/ ?L. The reference r carlota was not used to interpret this result as normal/abnormal . MPV (test code = 10.1 fL 9.8-13 38978-2) NRBC/100 WBC (test See_Comment [Automat ed code = 1445121957) message] The system which generated this result transmitted reference range : 0.0 - 10.0 /100 WBCs. The refer ence range was not u sed to interpret th is result as normal/abnormal . NRBC x10^3 (test code See_Comment [Auto mated = 7977900456) message] The s ystem which generated this result transmitted reference range : 10*3/?L. The reference range was not used to interpret this result as normal/abnormal . GRAN MAT (NEUT) % 50.3 % (test code = 770-8) IMM GRAN % (test code 0.00 % = 1008448931) LYMPH % (test code = 28.7 % 736-9) MONO % (test code = 13.9 % 5905-5) EOS % (test code = 5.3 % 713-8) BASO % (test code = 1.8 % 706-2) GRAN MAT x10^3(ANC) 3.14 10*3/uL 1.99-6.95 (test code = 2549702082) IMM GRAN x10^3 (test 0-0.06 code = 9117418705) LYMPH x10^3 (test code 1.79 10*3/uL 1.09-3.23 = 731-0) MONO x10^3 (test code 0.87 10*3/uL 0.36-1.02 = 742-7) EOS x10^3 (test code = 0.33 10*3/uL 0.06-0.53 711-2) BASO x10^3 (test code 0.11 10*3/uL 0.01-0.09 H = 704-7) Lab Interpretation Abnormal (test code = 68502-2) [facility] HospitalType and Screen - ONCE [id number] 03:41:38 Test Item Value Reference Range Interpretation Comments ABO & RH (test code O Positive Performe d at [facility] = 20) Laboratory Serv ices - [facility] [address] [place] [address]Ajkq Free: [phone] A No. [id number] IAT (test code = Negative Performed a t [facility] 1185) Laboratory Serv [facility] [address] [place] [address]Ybpm Free: [phone] A No. [id number] [facility] HospitalCOMP. METABOLIC PANEL ([id number])2022-05-10 03:15:48 Test Item Value Reference Range Interpretation Comments NA (test code = 135 mmol/L 135-145 6836158476) K (test code = 4.2 mmol/L 3.5-5 5396058768) CL (test code = 104 mmol/L 98-108 5498032693) CO2 TOTAL (test code = 23 mmol/L 23-31 4184831341) AGAP (test code = 2-16 4836364669) BUN (test code = 9 mg/dL 7-23 8275497524) GLUCOSE (test code = 100 mg/dL 70-110 4197152293) CREATININE (test code = 0.89 mg/dL 0.6-1.25 4041350379) TOTAL BILI (test code = 0.3 mg/dL 0.1-1.4 2473247153) CALCIUM (test code = 8.5 mg/dL 8.6-10.6 L 6324840953) T PROTEIN (test code = 6.6 g/dL 6.3-8.2 0704187762) ALBUMIN (test code = 3.6 g/dL 3.5-5 7839261131) ALK PHOS (test code = 80 U/L 34-122 2657203709) ALTv (test code = 13 U/L 5-50 1742-6) AST(SGOT) (test code = 22 U/L 13-40 7578516477) eGFR (test code = mL/min/1.73m2 2130504493) ROBERTO (test code = ROBERTO) Association of [...] tests). Lab Interpretation Abnormal (test code = 17241-2) [facility]20[facility] 03:15:08 Test Item Value Reference Range Interpretation Comments LIPASE (test code = 5602568122) 105 U/L 0-220 Lab Interpretation (test code = Normal 90347-7) [facility] WITH [id number] 03:02:08 Test Item Value Reference Range Interpretation Comments WBC (test code = See_Comment [Automated 3359-2) message] The sy stem which generated this result transmitted reference range : 4.20 - 10.70 10*3/?L. The reference range was not used to interpret this result as normal/abnormal . RBC (test code = See_Comment L [Automated 285-7) message] The sy stem which generated this [...] (test code = 38.0 fL 38.5-51.6 L 10170-6) RDW-CV (test code = 14.9 % 12.1-15.4 788-0) PLT (test code = See_Comment H [Automated 777-3) message] The sy stem which generated this result transmitted reference range : 150 - 328 10*3/ ?L. The reference r carlota was not used to interpret this result as normal/abnormal . MPV (test code = 9.8 fL 9.8-13 65748-4) NRBC/100 WBC (test See_Comment [Automat ed code = 1870107533) message] The system which generated this result transmitted reference range : 0.0 - 10.0 /100 WBCs. The refer ence range was not u sed to interpret th is result as normal/abnormal . NRBC x10^3 (test code See_Comment [Auto mated = 1959183764) message] The s ystem which generated this result transmitted reference range : 10*3/?L. The reference range was not used to interpret this result as normal/abnormal . GRAN MAT (NEUT) % 51.8 % (test code = 770-8) IMM GRAN % (test code 0.40 % = 9915197311) LYMPH % (test code = 29.9 % 736-9) MONO % (test code = 10.2 % 5905-5) EOS % (test code = 5.8 % 713-8) BASO % (test code = 1.9 % 706-2) GRAN MAT x10^3(ANC) 4.17 10*3/uL 1.99-6.95 (test code = 9917165383) IMM GRAN x10^3 (test 0.03 10*3/uL 0-0.06 code = 2277530660) LYMPH x10^3 (test code 2.41 10*3/uL 1.09-3.23 = 731-0) MONO x10^3 (test code 0.82 10*3/uL 0.36-1.02 = 742-7) EOS x10^3 (test code = 0.47 10*3/uL 0.06-0.53 711-2) BASO x10^3 (test code 0.15 10*3/uL 0.01-0.09 H = 704-7) Lab Interpretation Abnormal (test code = 48318-1) [facility] [id number] 14:20:24 Test Item Value Reference Range Interpretation Comments CRP (test code = 1.3 mg/dL See_Comment H [Automated message] 6863817802) The system [employer] generated this result transmit eunice reference range : <=0.8. The refe rence range was not u sed to interpret th is result as normal/abnormal . Lab Interpretation (test Abnormal code = 31590-3) [facility] METABOLIC PANEL (NA, K, CL, CO2, GLUCOSE, BUN, CREATININE, CA)2022-04-28 11:21:59 Test Item Value Reference Range Interpretation Comments NA (test code = 134 mmol/L 135-145 L 9399648924) K (test code = 3.9 mmol/L 3.5-5 9304307018) CL (test code = 105 mmol/L 98-108 7005474227) CO2 TOTAL (test code = 26 mmol/L 23-31 4548888820) AGAP (test code = 2-16 9030019831) BUN (test code = 5 mg/dL 7-23 L 6862975656) GLUCOSE (test code = 76 mg/dL 70-110 5286624675) CREATININE (test code = 0.88 mg/dL 0.6-1.25 1780619826) CALCIUM (test code = 8.2 mg/dL 8.6-10.6 L 6693731271) eGFR (test code = mL/min/1.73m2 8369111915) ROBERTO (test code = ROBERTO) Association of [...] tests). Lab Interpretation Abnormal (test code = 60607-4) [facility] WITH [id number] 11:21:23 Test Item Value Reference Range Interpretation Comments WBC (test code = See_Comment [Automated 4690-2) message] The sy stem which generated this result transmitted reference range : 4.20 - 10.70 10*3/?L. The reference range was not used to interpret this result as normal/abnormal . RBC (test code = See_Comment L [Automated 149-8) message] The sy stem which generated this [...] RDW-SD (test code = 40.4 fL 38.5-51.6 64677-9) RDW-CV (test code = 15.3 % 12.1-15.4 788-0) PLT (test code = See_Comment H [Automated 777-3) message] The sy stem which generated this result transmitted reference range : 150 - 328 10*3/ ?L. The reference r carlota was not used to interpret this result as normal/abnormal . MPV (test code = 9.8 fL 9.8-13 29170-6) NRBC/100 WBC (test See_Comment [Automat ed code = 4615459383) message] The system which generated this result transmitted reference range : 0.0 - 10.0 /100 WBCs. The refer ence range was not u sed to interpret th is result as normal/abnormal . NRBC x10^3 (test code See_Comment [Auto mated = 7231109137) message] The s ystem which generated this result transmitted reference range : 10*3/?L. The reference range was not used to interpret this result as normal/abnormal . GRAN MAT (NEUT) % 51.9 % (test code = 770-8) IMM GRAN % (test code 0.50 % = 9867547049) LYMPH % (test code = 25.7 % 736-9) MONO % (test code = 17.4 % 5905-5) EOS % (test code = 3.2 % 713-8) BASO % (test code = 1.3 % 706-2) GRAN MAT x10^3(ANC) 3.09 10*3/uL 1.99-6.95 (test code = 6277119812) IMM GRAN x10^3 (test 0.03 10*3/uL 0-0.06 code = 7829512497) LYMPH x10^3 (test code 1.53 10*3/uL 1.09-3.23 = 731-0) MONO x10^3 (test code 1.04 10*3/uL 0.36-1.02 H = 742-7) EOS x10^3 (test code = 0.19 10*3/uL 0.06-0.53 711-2) BASO x10^3 (test code 0.08 10*3/uL 0.01-0.09 = 704-7) Lab Interpretation Abnormal (test code = 31017-4) [facility]20[facility] 11:17:00 Test Item Value Reference Range Interpretation Comments MAGNESIUM (test code = 1954992540) 1.7 mg/dL 1.7-2.4 Lab Interpretation (test code = Normal 57671-2) [facility] HospitalABORH Confirmation (Lab Only)2022-04-27 17:22:22 Test Item Value Reference Range Interpretation Comments ABO & RH (test code O Positive Performe d at [facility] = 20) Laboratory Serv [facility] [address] [place] [address] Free: [phone] A No. [id number] [facility] HospitalType [facility] Screen - ONCE [id number] 16:14:13 Test Item Value Reference Range Interpretation Comments ABO & RH (test code O Positive Performe d at [facility] = 20) Laboratory [facility] [place], [place] [address]Toll Free: [phone] A No. [id number] IAT (test code = Negative Performed a t [facility] 1185) Laboratory [facility] [place] [employer], [place] [address]Toll Free: [phone] A No. [id number] [facility] HospitalACTIVATED PARTIAL THRMPLAS [id number] 16:10:24 Test Item Value Reference Range Interpretation Comments APTT Patient (test See_Comment [Automat ed code = 3173-2) message] The system which generated this result transmitted reference range : 23 - 38 Seconds . The reference range was not used to interpr et this result as normal/abnormal . ROBERTO (test code = ROBERTO) The [facility] patient population mean normal value for aPTT is 30 seconds. Lab Interpretation Normal (test code = 68772-9) [facility] HospitalProthrombin Time / [id number] 16:08:28 Test Item Value Reference Range Interpretation [...] tions. Lab Interpretation (test Normal code = 13478-9) [facility] HospitalTROPONIN [id number] 15:53:25 Test Item Value Reference Interpretation Comments Range TROPONIN I (test See_Comment [Automated code = 9324453231) message] The system which generated this result [...] biotin. Lab Interpretation Normal (test code = 12865-6) [facility]. METABOLIC PANEL ([id number])2022-04-27 15:42:03 Test Item Value Reference Range Interpretation Comments NA (test code = 139 mmol/L 135-145 4087501758) K (test code = 4.1 mmol/L 3.5-5 5223415179) CL (test code = 105 mmol/L 98-108 8939070924) CO2 TOTAL (test code = 27 mmol/L 23-31 3506325034) AGAP (test code = 2-16 5619657514) BUN (test code = 6 mg/dL 7-23 L 3001634516) GLUCOSE (test code = 96 mg/dL 70-110 3185426196) CREATININE (test code = 0.87 mg/dL 0.6-1.25 9534913425) TOTAL BILI (test code = 0.3 mg/dL 0.1-1.2 7347196323) CALCIUM (test code = 9.1 mg/dL 8.6-10.6 5058769420) T PROTEIN (test code = 6.9 g/dL 6.3-8.2 0510393953) ALBUMIN (test code = 3.6 g/dL 3.5-5 3074227202) ALK PHOS (test code = 89 U/L 34-122 0462075662) ALTv (test code = 12 U/L 5-50 1742-6) AST(SGOT) (test code = 17 U/L 13-40 8767283496) eGFR (test code = mL/min/1.73m2 6730197992) ROBERTO (test code = ROBERTO) Association of [...] tests). Lab Interpretation Abnormal (test code = 99576-0) [facility]:03 Test Item Value Reference Range Interpretation Comments MAGNESIUM (test code = 7698955396) 1.9 mg/dL 1.7-2.4 Lab Interpretation (test code = Normal 15116-3) [facility] 15:42:03 Test Item Value Reference Range Interpretation Comments LIPASE (test code = 6393798725) 115 U/L 0-220 Lab Interpretation (test code = Normal 47273-5) [facility] [id number] 15:32:42 Test Item Value Reference Range Interpretation Comments WBC (test code = See_Comment [Automated 6690-2) message] The sy stem which generated this result transmitted reference range : 4.20 - 10.70 10*3/?L. The reference range was not used to interpret this result as normal/abnormal . RBC (test code = See_Comment [Automated 739-8) message] The sy stem which generated this [...] RDW-SD (test code = 39.8 fL 38.5-51.6 87588-8) RDW-CV (test code = 15.1 % 12.1-15.4 788-0) PLT (test code = See_Comment H [Automated 777-3) message] The sy stem which generated this result transmitted reference range : 150 - 328 10*3/ ?L. The reference r carlota was not used to interpret this result as normal/abnormal . MPV (test code = 9.5 fL 9.8-13 L 27951-1) NRBC/100 WBC (test See_Comment [Automat ed code = 4094656303) message] The system which generated this result transmitted reference range : 0.0 - 10.0 /100 WBCs. The refer ence range was not u sed to interpret th is result as normal/abnormal . NRBC x10^3 (test code See_Comment [Auto mated = 3781210420) message] The s ystem which generated this result transmitted reference range : 10*3/?L. The reference range was not used to interpret this result as normal/abnormal . GRAN MAT (NEUT) % 51.9 % (test code = 770-8) IMM GRAN % (test code 0.30 % = 5761830609) LYMPH % (test code = 31.1 % 736-9) MONO % (test code = 13.0 % 5905-5) EOS % (test code = 2.5 % 713-8) BASO % (test code = 1.2 % 706-2) GRAN MAT x10^3(ANC) 3.35 10*3/uL 1.99-6.95 (test code = 3186699003) IMM GRAN x10^3 (test 0-0.06 code = 5691459221) LYMPH x10^3 (test code 2.01 10*3/uL 1.09-3.23 = 731-0) MONO x10^3 (test code 0.84 10*3/uL 0.36-1.02 = 742-7) EOS x10^3 (test code = 0.16 10*3/uL 0.06-0.53 711-2) BASO x10^3 (test code 0.08 10*3/uL 0.01-0.09 = 704-7) Lab Interpretation Abnormal (test code = 60418-4) [facility] CHEST 1 [id number] 08:28:00Patient Name: ALEX BURROUGHS Unit No: [id number] EXAMS: CPT: [id number] XR CHEST 1 V 37256 History: Chest pain CHEST 1 VIEW FINDINGS: [...] (0831) BATCH NO: N/A Name: ALEX BURROUGHS [facility] Phys: Sky Starks MD [address] : 1975 Age: 44 Sex: [place] [address] Loc: N.ERS Exam Date: 05/23/2019 Status: REG ER PH: FAX: PAGE 1 Signed [id number] 07:18:00 Test Item Value Reference Range Interpretation Comments TROPONIN-I (test code = TROPI) <0.020 ng/mL 0.000-0.034 N BASIC METABOLIC [id number] 07:14:00 Test Item Value Reference Range Interpretation [...] mg/dL 8.5-10.5 N = CA) CBC W/AUTO [id number] 07:10:00 Test Item Value Reference Range Interpretation [...] Date/Time Note Provider Source 2023-01-02 11:33:00-00:00 [facility] ([facility]) EMERGENCY PROVIDER REPORT REPORT#:[id number] REPORT STATUS: Signed DATE:01/02/23 TIME: 1133 PATIENT: ALEX BURROUGHS UNIT #: [id number] ROOM: BED: AGE: 47 SEX: M PCP PHYS: No Primary or Family P hysician SERVICE AUTHOR: Donna Iraheta DO * ALL edits or amendments must be made on the el [employer]/computer document * HPI-Headache Free Text HPI Notes Free Text HPI Notes 47-year-old male with a past medical history of ulcerative colitis presents with complaint of a frontal headache onset 1 week ago with no relief. Patient reports that he has used ove r-hhy-rfyajqf medications Advil and Tylenol without relief. Patient [...] Temp 98.1 01/03 908 Pulse 81 01/02 0908 Resp 18 01/03 908 Last Documented: Result Date Time Pulse Ox 98 01/02 1306 B/P 132/72 01/02 1306 B/P Mean 92 01/02 1306 Pulse 78 01/02 1306 Resp 18 01/02 1306 Temp 98.1 01/02 0908 Review of Vital Signs Reviewed, Vital signs [...] Diagnostics Lab Results Interpretation Results Laboratory Tests 01/02/2337: [Embedded Image Not Available] Laboratory Tests: 01/02 [...] (Auto) (20 - 40 %) 16.2 L Edgar % (Auto) (1 - 10 %) 12.7 H Eos % (Auto) (0.0 - 5.0 %) 1.2 Baso % (Auto) (0.0 - 1.0 %) 1.1 H Neut # (Auto) (1.6 - 7.2 x10 3/uL) 6.5 Lymph # (Auto) (1.1 - 2.7 x10 3/uL) 1.53 Edgar # (Auto) (0.3 - 0.8 x10 3/uL) 1.2 H Eos # (Auto) (0.0 - 0.5 x10 3/uL) 0.1 Baso # (Auto) (0.0 - 0.1 x10 3/uL) 0.1 Immature Gran % (0.0 - 2.0 %) 0.2 Nucleated RBC % (0.0 - 0.9 %) 0.0 Urines Urine Color (YELLOW) YELLOW Urine Appearance (CLEAR) Clear Urine pH (5.0 - 9.0) 5.0 Ur Specific [place] (1.001 - 1.030) 1.032 Urine Protein (NEGATIVE) [...] 01/02 IV 1057 Differential Diagnosis Differential Diagnosis WOOD BUFFER tumor, Headache, clus ter, Headache, migraine, Headache, [...] Patient reports that he has used ove x-pga-hwfmgbg medications Advil and Tylenol without relief. Patient [...] discharge at this time and follow-up with pastry assistant for recheck in 2 to 3 days. [...] Pulse 78 01/02 1306 Resp 18 01/02 1306 Temp 98.1 [...] Obey Fernandez MD Follow-Up: 2-3 Days Address: [place] [address] Departure Forms [facility] PCP LIST WORK/SCHOOL [...] physician or other designated or consulting phys macan as outlined in the discharge instructions. The [...] symptoms should prompt an immediate return to [facility] or the closest emergency department or a call to 1. Electronically Signed by Donna Iraheta DO on at 1925 RPT #:[id number] END OF REPORT 2023-01-02 09:44:00-00:00 [id number] [address] PATIENT NAME: ALEX BURROUGHS ADMIT DATE: 01/02/23 ACCOUNT NO: [id number] ROOM NO: AGE: 47 REPORT TYPE: ELECTROCARDIOGRAM SEX: M ADMITTING PHYSICIAN: ATTENDING PHYSICIAN: Order: [id number] Test Reason : Resting 12-lead ECG Test [...] PATIENT NAME ALEX BURROUGHS 42 2023-01-02 09:08:00-00:00 [facility] EMERGENCY PROVIDER REPORT REPORT#:[id number] REPORT STATUS: Signed DATE:01/02/23 TIME: 907 PATIENT: ALEX BURROUGHS UNIT #: [id number] ROOM: BED: AGE: 47 SEX: M PCP PHYS: No Primary or Family P hysician SERVICE AUTHOR: Bambi De La Cruz * ALL edits or amendments must be made on the [employer] document * Provider in Triage - Adult [...] John Erickson MD on at 1611 RPT #:[id number] END OF REPORT 2022-12-25 00:50:00-00:00 [id number] [address] PATIENT NAME: ALEX BURROUGHS ADMIT DATE: 11/26/22 ACCOUNT NO: [id number] ROOM NO: N.[facility] AGE: 47 REPORT TYPE: 360 - QUERY RESPONSE DOCUMENT SEX: M ADMITTING PHYSICIAN:Laureano Webster MD ATTENDING PHYSICIAN:Laureano Webster MD Provider Query QUERY TEXT: Clarification Diagnostic Test 360MD Query related questions should be directed to: Kayden kang [facility] Coding Query Helpline Based on your medical [...] 0050 PATIENT NAME ALEX BURROUGHS 2022-11-29 11:48:00-00:00 [facility] ([facility]) Hospitalist D/C Summary REPORT #: [id number] REPORT STATUS: Signed DATE: 11/29/22 TIME: 1148 PATIENT: ALEX BURROUGHS UNIT #: [id number] ROOM #: N.0656 BED: 1 : 77 AGE: 47 SEX: M ATTEND: Faye Webster MD ADM AUTHOR: Ratna Logan ATTENTION *EDITS and/or ADDENDA must be made in Patient Ke eper for this note. * * Edits and ammendments created in [employer] are not visible * * in Patient Keeper or the legal medical record (HPF). * -- CO-SIGNATURE -- COMMENTS: Case discussed with ENVIRONMENTAL HEALTH NURSE. Agree with the findings and plan as [...] Diagnosed 1 year ago with colonoscopy in [facility]. CT scan - Subtle wall thickening/enhancement [...] Up:ADT - Admission Orders Details: Order number: [id number] Category: ADT - Admission Orders Order status: Transmitted Details: Consulting provider 1: UGBST:Obey Fernandez MD Consulting provider 1: . Consult follow up timeframe: In 2-3 weeks Ordered by: Ratna Logan Nov 29, 2022 11:15am Entered by: Ratna Logan Service date: Nov 29, 2022 11:13am PK DISCHARGE ORDERS: Discharge w/Instructions:PKDC - PK DISCHARGE ORD ERS Details: Order number: [id number] Category: PKDC - PK DISCHARGE ORDERS Order status: Transmitted Details: Discharge order: Yes Discharge to: Home/Self Care Diet: Regular Activity: As Tolerated Appropriate for Age Notify PCP of Signs/Symptoms: Moderate/large bleeding Shortness of breath Temp. 101 or greater Additional Discharge Routines: PCP Follow-Up Gelatin Powder Mixer Follow-Up Ordered by: Ratna Logan Nov 29, [...] * * Edits and ammendments created in [facility] are not visible * * in Patient Keeper or the legal medical record (HPF). * [facility] #: [id number] END OF REPORT 2022-11-29 11:32:00-00:00 [facility] ([facility]) Med Order Sheet REPORT #: [id number] REPORT STATUS: Signed DATE: 11/29/22 TIME: 1132 PATIENT: ALEX BURROUGHS UNIT #: [id number] ROOM #: N.0656 BED: 1 : 77 AGE: 47 SEX: M ATTEND: Lopez Webster MD ADM AUTHOR: Ratna Logan ATTENTION *EDITS and/or ADDENDA must be made in Patient [facility] for this note. * * Edits and ammendments created in [employer] are not visible * * in Patient Keeper or the legal medical record ([facility]). * Discharge Medication Reconciliation Hosp: predniSONE Tab (Deltasone Tab) Dose: 10 MG PO ASDIR, Disp: 30 tablet, Refills: 0 - Taper as directed: 4 tabs PO daily x3 days, then 3 tabs PO daily x3 days, then 2 tabs PO daily x3 days, then 1 tab PO daily x3 days at 1132 ATTENTION *EDITS and/or ADDENDA must be made in Patient [facility] for this note. * * Edits and ammendments created in [employer] are not visible * * in Patient Keeper or the legal medical record ([facility]). * RPT #: [id number] END OF REPORT 2022-11-29 11:27:00-00:00 [facility] ([facility]) Med Order Sheet REPORT #: [id number] REPORT STATUS: Signed DATE: 11/29/22 TIME: 1127 PATIENT: ALEX BURROUGHS UNIT #: [id number] ROOM #: N.0656 BED: 1 : 77 AGE: 47 SEX: M ATTEND: Faye Webster MD ADM AUTHOR: Ratna Logan ATTENTION *EDITS and/or ADDENDA must be made in Patient Ke ep for this note. * * Edits and ammendments created in [facility] are not visible * * in [...] methylPREDNISolone Inj (Solu-MEDROL Inj) 6 0MG IV [id number] Signed in PatientKeeper by Ratna kovacs on 11/29/22 11:25 at 1127 ATTENTION *EDITS and/or ADDENDA must be made in Patient [facility] for this note. * * Edits and ammendments created in [facility] are not visible * * in Patient Keeper or the legal medical record ([facility]). * RPT #: [id number] END OF REPORT 2022-11-29 11:15:00-00:00 [facility] Med Order Sheet REPORT #: [id number] REPORT STATUS: Signed DATE: 11/29/22 TIME: 1115 PATIENT: ALEX BURROUGHS UNIT #: [id number] ROOM #: N.0656 BED: 1 : 77 AGE: 47 SEX: M ATTEND: Faye Webster MD ADM AUTHOR: Ratna Logan ATTENTION *EDITS and/or ADDENDA must be made in Patient Ke eper for this note. * * Edits and ammendments created in [facility] are not visible * * in Patient Keeper or the legal medical record ([facility]). * Discharge Medication Reconciliation DISCHARGE MEDICATION [...] IV Q6H PRN sbp>180Dc'd: HYDROcod/APAP 5/325 Tab ([place] 5/325 Tab) 1TAB P O Q4H PRN [...] and/or ADDENDA must be made in Patient [facility] for this note. * * Edits and ammendments created in [employer] are not visible * * in Patient Keeper or the legal medical record ([facility]). * RPT #: [id number] END OF REPORT 2022-11-28 15:28:00-00:00 [facility] ([facility]) Gastroenterology Prog. Note REPORT #: [id number] REPORT STATUS: Signed DATE: 11/28/22 TIME: 1528 PATIENT: ALEX BURROUGHS UNIT #: [id number] ROOM #: N.0656 BED: 1 : 77 AGE: 47 SEX: M ATTEND: Faye Webster MD ADM AUTHOR: Obey Fernandez MD ATTENTION *EDITS and/or ADDENDA must be made in Patient [facility] for this note. * * Edits and ammendments created in [employer] are not visible * * in Patient Keeper or the legal medical record ([facility]). * -- SUBJECTIVE -- CHIEF COMPLAINT: Interval hx: No new complaints Bleeding has improved and stools are getting mor e formed though still bloody Abdominal pain has improved REASON FOR CONSULTATION: Rectal bleeding. HISTORY OF PRESENT ILLNESS: A 47-year-old with h istory of ulcerative colitis diagnosed last year, who has been medically noncompliant. He has been attending the hospital in [place] and has not established care in our [...] -- MEDICATIONS DEXTROSE 5%-NS 1000 ML IV .[id number] MESALAMINE 800 MG PO TID IPRATROPIUM/ALBUTEROL SULFATE 3 ML NEB RTQ6H PRN HYDROcodone BITARTRATE/APAP 1 TAB PO Q4H PRN methylPREDNISolone SOD SUCC 60 MG IV Q8HR polyethylene glycoL 3350 1 PKT PO DAILY PRN LORazepam 0.5 MG IV Q12H PRN ONDANSETRON HCL/PF 4 MG IV Q4H PRN DEXTROSE 5%-NS 1000 ML IV .[id number] NITROGLYCERIN 0.4 MG SL Q5M PRN guaiFENesin 600 MG PO BID PRN cloNIDine HCL 0.1 MG PO Q6H PRN ZOLPIDEM TARTRATE 10 MG PO BEDTIME PRN SODIUM CHLORIDE 0.9% 1000 ML IV .[id number] ACETAMINOPHEN 650 MG PO Q4H PRN HYDROmorphone [...] and/or ADDENDA must be made in Patient [facility] for this note. * * Edits and ammendments created in [employer] are not visible * * in Patient Keeper or the legal medical record ([facility]). * RPT #: [id number] END OF REPORT 2022-11-28 11:09:00-00:[address] [facility] Hospitalist Progress Note REPORT #: [id number] REPORT STATUS: Signed DATE: 11/28/22 TIME: 1109 PATIENT: ALEX BURROUGHS UNIT #: [id number] ROOM #: N.0656 BED: 1 : 77 AGE: 47 SEX: M ATTEND: Faye Webster MD ADM AUTHOR: Ratna Logan APRNNP ATTENTION *EDITS and/or ADDENDA must be made in Patient [facility] for this note. * * Edits and ammendments created in [employer] are not visible * * in Patient Keeper or the legal medical record ([facility]). * -- CO-SIGNATURE -- COMMENTS: Case discussed with ENVIRONMENTAL HEALTH NURSE. Agree with the findings and plan as documented. Moderate complexity Signed in PatientKeeper by SHANICE THOMAS MD on 11/29/22 at 11:18 -- ASSESSMENT AND PLAN -- ADDITIONAL COMMENTS: PLAN Ulcerative Coliits Flare Rectal bleeding Diagnosed 1 year ago with colonoscopy in [facility]. CT scan - Subtle wall thickening/enhancement [...] -- MEDICATIONS DEXTROSE 5%-NS 1000 ML IV .[id number] MESALAMINE 800 MG PO TID IPRATROPIUM/ALBUTEROL SULFATE 3 ML NEB RTQ6H PRN HYDROcodone BITARTRATE/APAP 1 TAB PO Q4H PRN methylPREDNISolone SOD SUCC 60 MG IV Q8HR polyethylene glycoL 3350 1 PKT PO DAILY PRN LORazepam 0.5 MG IV Q12H PRN ONDANSETRON HCL/PF 4 MG IV Q4H PRN DEXTROSE 5%-NS 1000 ML IV .[id number] NITROGLYCERIN 0.4 MG SL Q5M PRN guaiFENesin 600 MG PO BID PRN cloNIDine HCL 0.1 MG PO Q6H PRN ZOLPIDEM TARTRATE 10 MG PO BEDTIME PRN SODIUM CHLORIDE 0.9% 1000 ML IV .[id number] ACETAMINOPHEN 650 MG PO Q4H PRN HYDROmorphone [...] * * Edits and ammendments created in [facility] are not visible * * in Patient Keeper or the legal medical record ([facility]). * [facility] #: [id number] END OF REPORT 2022-11-27 11:05:00-00:00 [facility] ([facility]) Hospitalist Progress Note REPORT #: [id number] REPORT STATUS: Signed DATE: 11/27/22 TIME: 110 PATIENT: ALEX BURROUGHS UNIT #: [id number] ROOM #: N.0656 BED: 1 : 77 AGE: 47 SEX: M ATTEND: Faye Webster MD ADM AUTHOR: Sekou Rubi MD ATTENTION *EDITS and/or ADDENDA must be made in Patient Ke eper for this note. * * Edits and ammendments created in [employer] are not visible * * in Patient Keeper or the legal medical record (HPF). * -- ASSESSMENT AND PLAN -- GENERAL ASSESSMENT: Ulcerative Coliits Flare Rectal bleeding Diagnosed 1 year ago with colonoscopy in [facility]. CT scan - Subtle wall thickening/enhancement [...] -- MEDICATIONS DEXTROSE 5%-NS 1000 ML IV .[id number] MESALAMINE 800 MG PO TID IPRATROPIUM/ALBUTEROL SULFATE 3 ML NEB RTQ6H PRN HYDROcodone BITARTRATE/APAP 1 TAB PO Q4H PRN methylPREDNISolone SOD SUCC 60 MG IV Q8HR polyethylene glycoL 3350 1 PKT PO DAILY PRN LORazepam 0.5 MG IV Q12H PRN ONDANSETRON HCL/PF 4 MG IV Q4H PRN DEXTROSE 5%-NS 1000 ML IV .[id number] NITROGLYCERIN 0.4 MG SL Q5M PRN guaiFENesin 600 MG PO BID PRN cloNIDine HCL 0.1 MG PO Q6H PRN ZOLPIDEM TARTRATE 10 MG PO BEDTIME PRN SODIUM CHLORIDE 0.9% 1000 ML IV .K27F88I ACETAMINOPHEN 650 MG PO Q4H PRN HYDROmorphone [...] * * Edits and ammendments created in [facility] are not visible * * in Patient Keeper or the legal medical record (HPF). * [facility] #: [id number] END OF REPORT 2022-11-27 11:05:00-00:00 [facility] ([facility]) Gastroenterology Prog. Note REPORT #: [id number] REPORT STATUS: Signed DATE: 11/27/22 TIME: 1105 PATIENT: ALEX BURROUGHS UNIT #: [id number] ROOM #: N.0656 BED: 1 : 77 AGE: 47 SEX: M ATTEND: Faye Webster MD ADM AUTHOR: Obey Fernandez MD ATTENTION *EDITS and/or ADDENDA must be made in Patient Ke eper for this note. * * Edits and ammendments created in [employer] are not visible * * in Patient Keeper or the legal medical record (HPF). * -- SUBJECTIVE -- CHIEF COMPLAINT: Interval hx: No new complaints REASON FOR CONSULTATION: Rectal bleeding. HISTORY OF PRESENT ILLNESS: A 47-year-old with h istory of ulcerative colitis diagnosed last year, who has been medically noncompliant. He has been attending the hospital in [place] and has not established care in our [...] -- MEDICATIONS DEXTROSE 5%-NS 1000 ML IV .[id number] MESALAMINE 800 MG PO TID IPRATROPIUM/ALBUTEROL SULFATE 3 ML NEB RTQ6H PRN HYDROcodone BITARTRATE/APAP 1 TAB PO Q4H PRN methylPREDNISolone SOD SUCC 60 MG IV Q8HR polyethylene glycoL 3350 1 PKT PO DAILY PRN LORazepam 0.5 MG IV Q12H PRN ONDANSETRON HCL/PF 4 MG IV Q4H PRN DEXTROSE 5%-NS 1000 ML IV .[id number] NITROGLYCERIN 0.4 MG SL Q5M PRN guaiFENesin 600 MG PO BID PRN cloNIDine HCL 0.1 MG PO Q6H PRN ZOLPIDEM TARTRATE 10 MG PO BEDTIME PRN SODIUM CHLORIDE 0.9% 1000 ML IV .R05P21X ACETAMINOPHEN 650 MG PO Q4H PRN HYDROmorphone [...] * * Edits and ammendments created in [facility] are not visible * * in Patient Keeper or the legal medical record (HPF). * [facility] #: [id number] END OF REPORT 2022-11-27 09:53:00-00:00 [facility] Med Order Sheet REPORT #: [id number] REPORT STATUS: Signed DATE: 11/27/22 TIME: 952 PATIENT: ALEX BURROUGHS UNIT #: [id number] ROOM #: N.0656 BED: 1 : 77 AGE: 47 SEX: M ATTEND: Faye Webster MD ADM AUTHOR: Sekou Rubi MD ATTENTION *EDITS and/or ADDENDA must be made in Patient ep for this note. * * Edits and ammendments created in [facility] are not visible * * in Patient Keeper or the legal medical record (HPF). * Admission Medication Reconciliation -- CONTINUED / CHANGED HOME MEDICATIONS -- Home: Mesalamine DR Cap (Delzicol Cap) 800 MG PO TID Hosp: Mesalamine DR Cap (Delzicol Cap) 800 MG P O TID The following home medications have not yet been reconciled: Medrol Dosepak DsPk (methylprednisolone) 4 MG PO ASDIR (Take as directed on package.) at 0953 ATTENTION *EDITS and/or ADDENDA must be made in Patient Ke eper for this note. * * Edits and ammendments created in [employer] are not visible * * in Patient Keeper or the legal medical record (HPF). * [facility] #: [id number] END OF REPORT 2022-11-26 15:03:00-00:00 [id number] [facility] [address] [place] [address] PATIENT NAME: ALEX BURROUGHS ADMIT DATE: 11/26/22 ACCOUNT NO: [id number] [facility] 47 REPORT TYPE: CONSULTATION SEX: M ADMITTING PHYSICIAN:Laureano Webster MD ATTENDING PHYSICIAN:Laureano Webster MD CONSULTATION DATE: REASON FOR CONSULTATION: Rectal bleeding. HISTORY OF PRESENT ILLNESS: A 47-year-old with h istory of ulcerative colitis diagnosed last year, who has been medically noncompliant. He has been attending the hospital in [place] and has not established care in our [...] Dictated: 11/26/2022 15:03:10 Date Transcribed: 11/26/2022 20:08:38 SCU/ANDRIA Receipt ID: [id number] Authenticated by Oeby Fernandez MD On 11/28 09:44:06 AM at 0944 PATIENT NAME ALEX BURROUGHS 32 2022-11-26 12:44:00-00:00 [facility] REPORT #: [id number] REPORT STATUS: Signed DATE: 11/26/22 TIME: 1244 PATIENT: ALEX BURROUGHS UNIT #: [id number] ROOM #: [facility] BED: 1 : 77 AGE: 47 SEX: M ATTEND: Faye Webster MD ADM AUTHOR: Sekou Rubi MD ATTENTION *EDITS and/or ADDENDA must be made in Patient Ke eper for this note. * * Edits and ammendments created in [employer] are not visible * * in Patient Keeper or the legal medical record ([facility]). * -- ASSESSMENT AND PLAN -- GENERAL ASSESSMENT: Ulcerative Coliits Flare Rectal bleeding Diagnosed 1 year ago with colonoscopy in [facility]. - Monitor CBC - ESR is [...] -- MEDICATIONS DEXTROSE 5%-NS 1000 ML IV .[id number] IPRATROPIUM/ALBUTEROL SULFATE 3 ML NEB RTQ6H PRN HYDROcodone BITARTRATE/APAP 1 TAB PO Q4H PRN methylPREDNISolone SOD SUCC 60 MG IV Q8HR polyethylene glycoL 3350 1 PKT PO DAILY PRN LORazepam 0.5 MG IV Q12H PRN ONDANSETRON HCL/PF 4 MG IV Q4H PRN DEXTROSE 5%-NS 1000 ML IV .[id number] NITROGLYCERIN 0.4 MG SL Q5M PRN guaiFENesin 600 MG PO BID PRN cloNIDine HCL 0.1 MG PO Q6H PRN ZOLPIDEM TARTRATE 10 MG PO BEDTIME PRN SODIUM CHLORIDE 0.9% 1000 ML IV .[id number] ACETAMINOPHEN 650 MG PO Q4H PRN morphine [...] * * Edits and ammendments created in [facility] are not visible * * in Patient Keeper or the legal medical record (HPF). * RPT #: [id number] END OF REPORT 2022-11-25 23:03:00-00:00 [facility] ([facility]) Hospitalist Andreas Farr REPORT #: [id number] REPORT STATUS: Signed DATE: 11/25/22 TIME: 2302 PATIENT: ALEX BURROUGHS UNIT #: [id number] ROOM #: N.ERST BED: 1 : 77 AGE: 47 SEX: M ATTEND: Lopez Webster MD ADM AUTHOR: Laureano Webster MD ATTENTION *EDITS and/or ADDENDA must be made in Patient Ke eper for this note. * * Edits and ammendments created in [employer] are not visible * * in Patient [...] to palpation.diffuse Neurology patient is awake alert Bethany x3 no mo tor or sensory deficit [...] * * Edits and ammendments created in [employer] are not visible * * in Patient Keeper or the legal medical record (HPF). * RPT #: [id number] END OF REPORT 2022-11-25 21:40:00-00:00 [facility] ([facility]) EMERGENCY PROVIDER REPORT REPORT#:[id number] REPORT STATUS: Signed DATE:11/25/22 TIME: 2139 PATIENT: ALEX BURROUGHS UNIT #: [id number] ROOM: [facility] BED: 1 AGE: 47 SEX: M PCP PHYS: No Primary or Family P hysician SERVICE AUTHOR: Dennis Bower II, MD * [...] 11/25 2257 Pulse 101 11/25 2257 Resp 20 04/21 2258 B/P Mean 116.9 11/25 2137 Review of [...] % (Auto) (20 - 40 %) 24.5 Edgar % (Auto) (1 - 10 %) 18.4 H Eos % (Auto) (0.0 - 5.0 %) 2.0 Baso % (Auto) (0.0 - 1.0 %) 1.1 H Neut # (Auto) (1.6 - 7.2 x10 3/uL) 5.6 Lymph # (Auto) (1.1 - 2.7 x10 3/uL) 2.58 Edgar # (Auto) (0.3 - 0.8 x10 3/uL) 1.9 H Eos # (Auto) (0.0 - 0.5 x10 3/uL) 0.2 Baso # (Auto) (0.0 - 0.1 x10 3/uL) 0.1 Immature Gran % (0.0 - 2.0 %) 0.7 Nucleated RBC % (0.0 - 0.9 %) 0.0 Urines Urine Color (YELLOW) YELLOW Urine Appearance (CLEAR) HAZY Urine pH (5.0 - 9.0) 5.0 Ur Specific Geneva (1.001 - 1.030) 1.031 Urine Protein (NEGATIVE) [...] to obs unit. Case di scussed with pastry assistant Dr. Parr. Case discussed with hospitalist Dr. [...] Time Status Admin Sodium Chloride 1,000 ML .[id number] 11/25 2314 AC 11/25 IV 12/26 2315 2348 Sodium Chloride 1,000 ML X1ED STA 11/26 2255 DC 11/25 IV [id number] Gastrointestinal Drugs Sig/Dorcas Start time Last Medication [...] bleed Disposition Decision Admit Admit Physician Name Laureano Websetr MD Admit Physician Hospitalist Request Time 2302 [...] communicated with the staff or medical p smithatitioner taking over this patient's care. at 0050 RPT #:[id number] END OF REPORT 2022-11-25 21:38:00-00:00 [facility] ([facility]) EMERGENCY PROVIDER REPORT REPORT#:[id number] REPORT STATUS: Signed DATE:11/25/22 TIME: 2137 PATIENT: ALEX BURROUGHS UNIT #: [id number] ROOM: [facility] BED: 1 AGE: 47 SEX: M PCP PHYS: No Primary or Family Ph ysician SERVICE AUTHOR: Jill Cardenas RNNP * ALL edits or amendments must be made on the [employer]/computer document * Provider in Triage - Adult [...] Never Smoker at 2139 at 0944 RPT #:[id number] END OF REPORT 2022-11-21 18:51:00-00:00 [facility] ([facility] EMERGENCY PROVIDER REPORT REPORT#:[id number] REPORT STATUS: Signed DATE:11/21/22 TIME: 1850 PATIENT: ALEX BURROUGHS UNIT #: [id number] ROOM: BED: AGE: 47 SEX: M PCP PHYS: No Primary or Family Ph ysician SERVICE AUTHOR: Dennis Bower II, MD * ALL edits or amendments must be made on the [employer]/computer document * HPI-Abd Pain M 40 and Over Free Text HPI Notes Free Text HPI Notes Patient is a 47-year-old male [facility] with lower abdominal pain and [...] Type New patient Initial Greet Date/Time 11/21/22 1422 Provider in Triage HPI Chief Complaint Abdominal [...] (Auto) (20 - 40 %) 18.3 L Edgar % (Auto) (1 - 10 %) 9.5 Eos % (Auto) (0.0 - 5.0 %) 2.4 Baso % (Auto) (0.0 - 1.0 %) 1.2 H Neut # (Auto) (1.6 - 7.2 x10 3/uL) 5.1 Lymph # (Auto) (1.1 - 2.7 x10 3/uL) 1.36 Edgar # (Auto) (0.3 - 0.8 x10 3/uL) 0.7 Eos # (Auto) (0.0 - 0.5 x10 3/uL) 0.2 Baso # (Auto) (0.0 - 0.1 x10 3/uL) 0.1 Immature Gran % (0.0 - 2.0 %) 0.4 Nucleated RBC % (0.0 - 0.9 %) 0.0 Urines Urine Color (YELLOW) YELLOW Urine Appearance (CLEAR) Clear Urine pH (5.0 - 9.0) 7.0 Ur Specific [place] (1.001 - 1.030) 1.027 Urine Protein (NEGATIVE) [...] Report Impression - Status: SIGNED Entered: 11/21/2022 618 IMPRESSION: 1. Subtle wall thickening/enhancement of the [...] X1ED STA 11/21 1832 DC IV 11/21 1833 Diagnostic Agents Sig/Dorcas Start time Last Medication [...] Ox 98 11/21 1423 B/P 133/86 11/21 1423 B/P Mean 101.2 11/21 1423 Temp 36.6 11/21 1423 Pulse 79 11/21 1423 Resp 18 11/21 1423 Last Documented: Result Date Time Pulse Ox 97 11/22 1915 B/P 131/84 11/22 1915 B/P Mean 99.7 11/22 1915 Temp 36.9 11/21 191 Pulse 64 11/21 191 Resp 17 11/22 1915 All vital signs available at the time [...] [facility] [address] [place] [address] Departure Forms [facility] PCP LIST Discharge [...] symptoms should prompt an immediate return to [facility] or the closest emergency department or a call to 911. at 0835 RPT #:[id number] END OF REPORT 2022-11-21 14:23:00-00:00 [facility] ([facility]) EMERGENCY PROVIDER REPORT REPORT#:[id number] REPORT STATUS: Signed DATE:11/21/22 TIME: 1422 PATIENT: ALEX BURROUGHS UNIT #: [id number] ROOM: BED: AGE: 47 SEX: M PCP PHYS: No Primary or Family Ph ysician SERVICE AUTHOR: Marvel Guzman * ALL edits or amendments must be made on the [employer]/computer document * Marvel Guzman 11/21/221422: Provider in [...] Grecia Taylor MD on at 2113 RPT #:[id number] END OF REPORT 2019-05-23 06:41:00-00:00 [id number] [address] PATIENT NAME: ALEX BURROUGHS ADMIT DATE: 05/23/19 ACCOUNT NO: [id number] ROOM NO: AGE: 44 REPORT TYPE: ELECTROCARDIOGRAM SEX: M ADMITTING PHYSICIAN: ATTENDING PHYSICIAN: Order: [id number] Test Reason : Resting 12-lead ECG Test [...] JADE REN, LAUREANO Torres ([id number]) on 05/07 11:37:39 AM Referred By: Doc No Confirmed by:LAUREANO HANSEN MD at 1137 PATIENT NAME ALEX BURROUGHS 2019-05-23 06:39:00-00:00 [facility] ([facility]) EMERGENCY PROVIDER REPORT REPORT#:[id number] REPORT STATUS: Signed DATE:05/23/19 TIME: 0639 PATIENT: ALEX BURROUGHS UNIT #: [id number] ROOM: BED: AGE: 44 SEX: M PCP PHYS: No Primary or Family Ph ysician SERVICE AUTHOR: Sky Grant * ALL edits or amendments must be made on the [employer]/computer document * HPI-Chest Pain 40 and Over [...] Diagnostics Lab Results Interpretation Results Laboratory Tests 05/23/1930: [Embedded Image Not Available] Laboratory Tests: 05/2330 0630 Chemistry Sodium (135 - 145 mmol/L) [...] % (Auto) (20 - 40 %) 30.7 Edgar % (Auto) (1 - 10 %) 10.8 H Eos % (Auto) (1.0 - 5.0 %) 7.1 H Baso % (Auto) (0.0 - 1.0 %) 1.6 H Neut # (Auto) (1.6 - 7.2 x10 3/uL) 3.4 Lymph # (Auto) (1.1 - 2.7 x10 3/uL) 2.10 Edgar # (Auto) (0.3 - 0.8 x10 3/uL) [...] rhythm, No STEMI, Normal intervals Rate 65 Conduction/[place] Left axis deviation Portions of this section were scribed by Yanet Bose on 05/23/19 at 0754 Re-Evaluation MDM Re-Evaluation/Progress #1 Text/Dict Note Patient chest pain has impro edmond. Physician reviewed labs and imaging, discussed results with patient. Physic darci discussed need for pt to follow up [...] symptoms should prompt an immediate return to [facility] or the closest emergency department or a call to [facility]. Supervising Physician Note Scribe Statement Yanet [...] on 05/23/19 at 0754 at 1316 RPT #:[id number] END OF REPORT 2019-05-23 05:55:00-00:00 [id number] [address] PATIENT NAME: ALEX BURROUGHS ADMIT DATE: 05/23/19 ACCOUNT NO: [id number] ROOM NO: AGE: 44 REPORT TYPE: ELECTROCARDIOGRAM SEX: M ADMITTING PHYSICIAN: ATTENDING PHYSICIAN: Order: [id number] Test Reason : Resting 12-lead ECG Test [...] ([id number]) on 05/07 11:37:37 AM Referred By: Doc No Confirmed by:LAUREANO HANSEN MD at 1137 PATIENT NAME ALEX BURROUGHS 00
[2023-03-23 16:28] LABS: Absolute Lymphocytes (CBC) 1.4 K/uL (0.7-4.9); Hematocrit 41.2 % (39.6-49.0); Lymphocytes % 16.8 % (15.3-44.8); MCV 79.1 fL (80-100); MPV 9.1 fL (7.6-11.3); Platelets 316 thou/uL (152-406); RBC Red Blood Cell Count 5.21 M/uL (4.33-5.43)
[2023-03-23 16:36] LABS: Albumin 3.6 g/dL (3.4-5.0); Bilirubin Total 0.2 mg/dL (0.2-1.0); Potassium 3.2 mEq/L (3.5-5.1); Protein, Total 7.6 g/dL (6.4-8.2)
[2023-03-23] MEDS ORDERED: predniSONE 20 MG TAB ONE (16:37)
[2023-03-23] MEDS ORDERED: MORPHINE 4 MG/ML SYR ONE (16:37)
[2023-03-23] MEDS ORDERED: METHYLPREDNISOLONE 125 MG INJ ONE (16:37)
[2023-03-23] MEDS ORDERED: NA CHLORIDE 0.9% 1,000 ML ONE (16:38)
[2023-03-23] MEDS ORDERED: ONDANSETRON 4 MG/2 ML VIAL ONE (16:38)
[2023-03-23] MEDS ORDERED: CIPROFLOXACIN 400mg IV 400 MG/200 ML BAG IV ONE (16:38)
[2023-03-23] MEDS ORDERED: FAMOTIDINE 20 MG/2 ML VIAL IV ONE (16:38)
[2023-03-23] MEDS ORDERED: METRONIDAZOLE 500mg IVPB 500 MG/100 ML BAG IV ONE (16:38)
--- NOTE | 2023-03-23 17:39 | RAD REPORT ---
EXAM DESCRIPTION: CTAbdomen Pelvis W Contrast - 03/23/2023 5:15 pm CLINICAL HISTORY: ABD PAIN COMPARISON: Abdomen Pelvis W Contrast dated 03/06/2023; Abdomen Pelvis W Contrast dated 02/15/2023 ; Abdomen Pelvis W Contrast dated 08/25/2022; Abdomen Pelvis W Contrast dated 08/09/2022 TECHNIQUE: CT of the abdomen and pelvis was performed with IV contrast. All CT scans are performed using dose optimization technique as appropriate and may include automated exposure control or mA/KV adjustment according to patient size. FINDINGS: Lower chest: No acute abnormality. Liver: Miniscule low-density lesion right hepatic lobe is unchanged almost certainly benign. Biliary: No biliary ductal dilatation. Stomach: No significant focal abnormality. Duodenum: No significant focal abnormality. Pancreas: No significant abnormality. Spleen: No significant abnormality. Adrenal: No suspicious lesions. Kidney/ureter: No hydronephrosis. No renal calculi. Retroperitoneum: No retroperitoneal adenopathy. Vascular: No aneurysm. Bowel: Normal appendix.. Mild colonic wall thickening, hyperenhancement, and mesenteric edema associa eunice with the descending colon, sigmoid colon, and rectum. No bowel obstruction. Peritoneum: No ascites or free air. Bladder: Grossly unremarkable. Reproductive: No adnexal masses. Bones: No acute fracture. Other: n/a IMPRESSION: Mild proctocolitis involving the descending colon through the rectum. Similar findings h ave been present on prior CT's. No complicating features.
--- NOTE | 2023-03-23 17:44 | EDPHYS ---
Physician Documentation [facility] Name: Wicho Weeks Age: 48 yrs Sex: Male : 1975 Arrival Date: 03/23/2023 Time: 15:12 Bed 17 Private MD: JACKIE Physician Kenny Valenzuela HPI: 03/23 15:49 This 48 yrs old Male presents to ER via Ambulatory with complaints of Rectal luci Bleeding, Abdominal Pain. 15:49 The patient presents to the emergency department with bleeding from the rectum/anus, luci that is moderate. Onset: The symptoms/episode began/occurred this morning, today. Context: the patient has no known special context relating to the rectal area complaint(s). Modifying factors: The symptoms are alleviated by nothing, The symptoms are aggravated by bowel movement. Associate signs and symptoms: Pertinent positives: abdominal pain in the right upper quadrant, left upper quadrant, right lower quadrant and left lower quadrant. The patient has experienced similar episodes in the past, several times. Historical: - Allergies: 15:20 No Known Allergies; cm10 - Home Meds: 15:20 mesalamine 400 mg oral capsule (with delayed release tablets) 2 tab three times a day cm10 [Active]; - PMHx: 15:20 Chronic Abdominal Pain; Colitis; GI Bleed; cm10 - Immunization history:: Adult Immunizations up to date. - Social history:: Smoking status: Patient denies any tobacco usage or history of. ROS: 15:50 Constitutional: Negative for fever, chills, and weight loss, Eyes: Negative for injury, luci pain, redness, and discharge, ENT: Negative for injury, pain, and discharge, Neck: Negative for injury, pain, and swelling, Cardiovascular: Negative for chest pain, palpitations, and edema, Respiratory: Negative for shortness of breath, cough, wheezing, and pleuritic chest pain, Back: Negative for injury and pain, : Negative for injury, bleeding, discharge, and swelling, MS/Extremity: Negative for injury and deformity, Skin: Negative for injury, rash, and discoloration, Neuro: Negative for headache, weakness, numbness, tingling, and seizure, Psych: Negative for depression, anxiety, suicide ideation, homicidal ideation, and hallucinations, Allergy/Immunology: Negative for hives, rash, and allergies, Endocrine: Negative for neck swelling, polydipsia, polyuria, polyphagia, and marked weight changes, Hematologic/Lymphatic: Negative for swollen nodes, abnormal bleeding, and unusual bruising. 15:50 Abdomen/GI: Positive for abdominal pain, nausea, abdominal cramps, abdominal distension, rectal bleeding. Exam: 15:50 Constitutional: This is a well developed, well nourished patient who is awake, alert, luci and in no acute distress. Head/Face: Normocephalic, atraumatic. Eyes: Pupils equal round and reactive to light, extra-ocular motions intact. Lids and lashes normal. Conjunctiva and sclera are non-icteric and not injected. Cornea within normal limits. Periorbital areas with no swelling, redness, or edema. ENT: Nares patent. No nasal discharge, no septal abnormalities noted. Tympanic membranes are normal and external auditory canals are clear. Oropharynx with no redness, swelling, or masses, exudates, or evidence of obstruction, uvula midline. Mucous membranes moist. Neck: Trachea midline, no thyromegaly or masses palpated, and no cervical lymphadenopathy. Supple, full range of motion without nuchal rigidity, or vertebral point tenderness. No Meningismus. Chest/axilla: Normal chest wall appearance and motion. Nontender with no deformity. No lesions are appreciated. Cardiovascular: Regular rate and rhythm with a normal S1 and S2. No gallops, murmurs, or rubs. Normal PMI, no JVD. No pulse deficits. Respiratory: Lungs have equal breath sounds bilaterally, clear to auscultation and percussion. No rales, rhonchi or wheezes noted. No increased work of breathing, no retractions or nasal flaring. Back: No spinal tenderness. No costovertebral tenderness. Full range of motion. Male : Normal genitalia with no discharge or lesions. Skin: Warm, dry with normal turgor. Normal color with no rashes, no lesions, and no evidence of cellulitis. MS/ Extremity: Pulses equal, no cyanosis. Neurovascular intact. Full, normal range of motion. Neuro: Awake and alert, GCS 15, oriented to person, place, time, and situation. Cranial nerves II-XII grossly intact. Motor strength 5/5 in all extremities. Sensory grossly intact. Cerebellar exam normal. Normal gait. Psych: Awake, alert, with orientation to person, place and time. Behavior, mood, and affect are within normal limits. 15:50 Abdomen/GI: Inspection: distension, that is mild, Bowel sounds: active, Palpation: moderate abdominal tenderness, in the right upper quadrant and left upper quadrant, Liver: no appreciated palpable abnormalities, Hernia: not appreciated. Vital Signs: 15:19 BP 146 / 104; Pulse 78; Resp 16; Temp 99.1; Pulse Ox 99% ; cm10 16:00 BP 136 / 117; Pulse 63; Resp 18; Pulse Ox 100% on R/A; eh3 17:00 BP 148 / 106; Pulse 64; Resp 18; Pulse Ox 100% on R/A; eh3 18:00 BP 150 / 95; Pulse 60; Resp 18; Pulse Ox 99% on R/A; eh3 19:00 BP 122 / 70; Pulse 69; Resp 18; Pulse Ox 100% on R/A; eh3 MDM: 15:23 Patient medically screened. [facility] 15:50 Data reviewed: vital signs, nurses notes, EMS record, lab test result(s), radiologic luci studies, CT scan. Consideration of Admission/Observation Escalation of care including admission/observation considered. I considered the following discharge prescriptions or medication management in the emergency department Medications were administered in the Emergency Department. See MAR. Independent interpretation of the following test(s) in the Emergency Department CT Scan: My interpretation is ct abd / pel. Test considered but Not performed: EKG: no ekg. Historians other than the Patient: pt only. Care significantly affected by the following chronic conditions: uc, gi bleed, colitis. 03/23 15:29 Order name: CBC with Diff; Complete Time: 16:38 [facility] 03/23 15:29 Order name: CMP; Complete Time: 16:38 [facility] 03/23 15:29 Order name: Lipase; Complete Time: 16:38 [facility] 03/23 15:29 Order name: Urinalysis w/ reflexes [facility] 03/23 15:29 Order name: CT Abd/Pelvis - IV Contrast Only; Complete Time: 17:43 [facility] 03/23 15:29 Order name: IV Saline Lock; Complete Time: 16:21 [facility] 03/23 15:29 Order name: Labs collected and sent; Complete Time: 16:21 [facility] Administered Medications: 16:00 Drug: NS 0.9% IV 1000 ml Route: IV; Rate: 1 bolus; Site: left forearm; 3 16:00 Drug: Famotidine IVP 20 mg Route: IVP; Site: left forearm; 3 16:00 Drug: Ondansetron IVP 4 mg Route: IVP; Site: left forearm; 3 16:00 Drug: morphine IVP or IV 4 mg Route: IVP; Infused Over: 4 mins; Site: left forearm; 3 16:15 Drug: MethylPrednisoLONE IVP 125 mg Route: IVP; Site: right forearm; 3 16:15 Drug: Ciprofloxacin IVPB 400 mg Volume: 200 ml; Route: IVPB; Infused Over: 60 mins; eh3 Site: left forearm; 16:15 Drug: metroNIDAZOLE IVPB 500 mg Volume: 100 ml; Route: IVPB; Rate: 200 ml/hr; Infused eh3 Over: 30 mins; Site: left forearm; 16:30 Drug: predniSONE PO 40 mg Route: PO; 3 Disposition Summary: 03/23/23 17:43 Discharge Ordered Location: Home luci Problem: new luci Symptoms: have improved luci Condition: Stable luci Diagnosis - GI Bleed/ Gastrointestinal hemorrhage, unspecified - lower luci - Other ulcerative colitis with rectal bleeding - Proctocolitis luci - Abdominal pain, Generalized luci - Hypokalemia luci Followup: luci - With: Private Physician - When: 2 - 3 days - Reason: Recheck today's complaints, Continuance of care, Re-evaluation by your physician Followup: luci - With: - When: 2 - 3 days - Reason: Recheck today's complaints, Re-evaluation by your physician Discharge Instructions: - Discharge Summary Sheet luci - Abdominal Pain, Adult luci - Potassium Content of Foods luci - Gastrointestinal Bleeding luci - Rectal Bleeding luci - Ulcerative Colitis, Adult luci - Abdominal Pain, Adult, Bevf-xe-Ixyo luci - Gastrointestinal Bleeding, Rwyy-yz-Ohaw luci - Rectal Bleeding, Edsq-yy-Cljq luci - Hypokalemia luci - Colitis luci Forms: - Medication Reconciliation Form luci - Thank You Letter luci - Antibiotic Education luci - Prescription Opioid Use luci - Patient Portal Instructions luci - Leadership Thank You Letter [facility] Prescriptions: - Flagyl 500 mg Oral Tablet - take 1 tablet by ORAL route every 6 hours for 7 days; 28 tablet; Refills: 0, luci Product Selection Permitted - Pepcid 20 mg Oral Tablet - take 1 tablet by ORAL route every 12 hours for 21 days; 42 tablet; Refills: 0, [facility] Product Selection Permitted - Cipro 500 mg Oral Tablet - take 1 tablet by ORAL route every 12 hours for 7 days; 14 tablet; Refills: 0, [facility] Product Selection Permitted - Prednisone 20 mg Oral Tablet - take 2 tablets by ORAL route once daily for 5 days; 10 tablet; Refills: 0, [facility] Product Selection Permitted - dicyclomine 10 mg/5 mL Oral Solution - take 10 milliliters by ORAL route 4 times per day; 180 milliliter; Refills: 0, [facility] Product Selection Permitted Signatures: Dispatcher [employer] Kenny Ward MD MD cha Hall, Erin RN RN eh3 Aminta Weeks RN RN cm10
--- NOTE | 2023-03-23 17:44 | ER ---
Nurse's Notes [facility] Name: Wicho Weeks Age: 48 yrs Sex: Male : 1975 Arrival Date: 03/23/2023 Time: 15:12 Bed 17 Private MD: Diagnosis: GI Bleed/ Gastrointestinal hemorrhage, unspecified-lower;Other ulcerative colitis with rectal bleeding-Proctocolitis;Abdominal pain, Generalized;Hypokalemia Presentation: 03/23 15:19 Chief complaint: Patient states: I'M PASSING A LOT OF BLACK STOOLS. Coronavirus screen: cm10 At this time, the client does not indicate any symptoms associated with coronavirus-19. Ebola Screen: No symptoms or risks identified at this time. Initial Sepsis Screen: Does the patient meet any 2 criteria? No. Patient's initial sepsis screen is negative. Does the patient have a suspected source of infection? No. Patient's initial sepsis screen is negative. Risk Assessment: Do you want to hurt yourself or someone else? Patient reports no desire to harm self or others. Onset of symptoms is unknown. 15:19 Method Of Arrival: Ambulatory cm10 15:19 Acuity: DRE 3 cm10 Triage Assessment: 15:22 General: Appears distressed, PALE. Behavior is calm, cooperative, appropriate for age. cm10 Pain: Complains of pain in abdomen. GI: Reports bloody stool. Derm: Skin is pale. Historical: - Allergies: 15:20 No Known Allergies; cm10 - Home Meds: 15:20 mesalamine 400 mg oral capsule (with delayed release tablets) 2 tab three times a day cm10 [Active]; - PMHx: 15:20 Chronic Abdominal Pain; Colitis; GI Bleed; cm10 - Immunization history:: Adult Immunizations up to date. - Social history:: Smoking status: Patient denies any tobacco usage or history of. Screenin:00 [facility] ED Fall Risk Assessment (Adult) Score/Fall Risk Level 0 - 2 = Low Risk. Abuse eh3 screen: Denies threats or abuse. Denies injuries from another. Nutritional screening: No deficits noted. Tuberculosis screening: No symptoms or risk factors identified. Assessment: 15:22 General: SEE TRIAGE NOTE. cm10 16:00 Reassessment: Patient appears in no apparent distress at this time. Patient and/or eh3 family updated on plan of care and expected duration. Pain level reassessed. Patient is alert, oriented x 3, equal unlabored respirations, skin warm/dry/pink. 17:00 Reassessment: Patient appears in no apparent distress at this time. Patient and/or eh3 family updated on plan of care and expected duration. Pain level reassessed. Patient is alert, oriented x 3, equal unlabored respirations, skin warm/dry/pink. 18:00 Reassessment: Patient appears in no apparent distress at this time. Patient and/or eh3 family updated on plan of care and expected duration. Pain level reassessed. Patient is alert, oriented x 3, equal unlabored respirations, skin warm/dry/pink. 19:00 Reassessment: Patient appears in no apparent distress at this time. Patient and/or eh3 family updated on plan of care and expected duration. Pain level reassessed. Patient is alert, oriented x 3, equal unlabored respirations, skin warm/dry/pink. Vital Signs: 15:19 BP 146 / 104; Pulse 78; Resp 16; Temp 99.1; Pulse Ox 99% ; cm10 16:00 BP 136 / 117; Pulse 63; Resp 18; Pulse Ox 100% on R/A; eh3 17:00 BP 148 / 106; Pulse 64; Resp 18; Pulse Ox 100% on R/A; eh3 18:00 BP 150 / 95; Pulse 60; Resp 18; Pulse Ox 99% on R/A; eh3 19:00 BP 122 / 70; Pulse 69; Resp 18; Pulse Ox 100% on R/A; eh3 ED Course: 15:13 Patient arrived in ED. rg4 15:20 Triage completed. cm10 15:20 Arm band placed on. cm10 15:23 Kenny Valenzuela MD is Attending Physician. luci 15:30 Kalina Cardoso, RODOLFO is Primary Nurse. eh3 16:00 Patient has correct armband on for positive identification. Bed in low position. Call eh3 light in reach. Side rails up X2. Provided Education on: Use of call burgos. Pulse ox on. NIBP on. 16:00 Inserted saline lock: 20 gauge in right forearm, using aseptic technique. Blood eh3 collected. IV inserted by José Miguel Avendano RN. 17:17 CT Abd/Pelvis - IV Contrast Only In Process Unspecified. EDMS 17:42 Samantha Mulligan MD is Referral Physician. [facility] 19:10 No provider procedures requiring assistance completed. IV discontinued, intact, eh3 bleeding controlled, No redness/swelling at site. Pressure dressing applied. Administered Medications: 16:00 Drug: NS 0.9% IV 1000 ml Route: IV; Rate: 1 bolus; Site: left forearm; eh3 16:00 Drug: Famotidine IVP 20 mg Route: IVP; Site: left forearm; eh3 16:00 Drug: Ondansetron IVP 4 mg Route: IVP; Site: left forearm; eh3 16:00 Drug: morphine IVP or IV 4 mg Route: IVP; Infused Over: 4 mins; Site: left forearm; eh3 16:15 Drug: MethylPrednisoLONE IVP 125 mg Route: IVP; Site: right forearm; eh3 16:15 Drug: Ciprofloxacin IVPB 400 mg Volume: 200 ml; Route: IVPB; Infused Over: 60 mins; eh3 Site: left forearm; 16:15 Drug: metroNIDAZOLE IVPB 500 mg Volume: 100 ml; Route: IVPB; Rate: 200 ml/hr; Infused eh3 Over: 30 mins; Site: left forearm; 16:30 Drug: predniSONE PO 40 mg Route: PO; eh3 Medication: 19:10 VIS not applicable for this client. 3 Outcome: 17:43 Discharge ordered by . [facility] 19:10 Discharged to home ambulatory. 3 19:10 Condition: stable 19:10 Discharge instructions given to patient, Instructed on discharge instructions, follow up and referral plans. medication usage, Demonstrated understanding of instructions, follow-up care, medications, Prescriptions given X 5 19:10 Patient left the ED. 3 Signatures: Dispatcher [employer] [facility] Kenny Valenzuela MD MD cha Garcia, Rubi rg4 Kalina Cardoso, RODOLFO RN eh3 Aminta Weeks RN RN cm10
[2023-03-23 18:00] LABS: Specific Gravity 1.024 (1.005-1.030); Urine Bilirubin NEGATIVE (Negative); Urine Blood Negative (Negative); Urine Clarity Clear (Clear); Urine Color Colorless (Yellow); Urine Glucose NEGATIVE (Negative); Urine Protein NEGATIVE (Negative); Urine Urobilinogen Normal (Normal)
[2023-03-23 19:17] VITALS: TEMP 99.1
[2023-03-23 19:24] VITALS: BP 122/70; O2SAT 100
== END 2023-03-23 19:10 | disposition home or self-care (01) ==
LOC: ER 15:12
DX: K51.811 Other ulcerative colitis with rectal bleeding (principal); E87.6 Hypokalemia; R10.84 Generalized abdominal pain
CPT/HCPCS: 36415; 74177; 80053; 81003; 83690; 85025; 99284; J0744; J2405; J2930; J7030; J7512; Q9967

== ENCOUNTER 2023-04-06 20:33 | Emergency (ER) | payer SELFPAY ==
--- OUTSIDE RECORDS SUMMARY | 2023-04-06 20:44 | XMS REPORT | Continuity of Care Document ---
:1975 Author Organization [facility] t Address [address] [place] [address] [address] [place] [address] Care Team Providers Name Role Phone TYE FONSECA Primary Care Physician Unavailable ANA PEACOCK Attending Clinician Unavailable Donna Iraheta Attending Clinician Unavailable Laureano Webster Attending Clinician Unavailable Dennis Bower II Attending Clinician Unavailable ELLI HARLEY Attending Clinician Unavailable Elli Harley DO Attending Clinician JUSTIN BAPTISTE Attending Clinician Unavailable Justin Baptiste MD Attending Clinician Doctor Unassigned, [place] Attending Clinician Unavailable RAYRAY WILLARD Attending Clinician [...] stools stools 0-05 ity of 00:00: [address] Obesity Obesity Disease Active 2021-08 Univers (BMI (BMI 0-05 ity of 30-39.9) 30-39.9) 00:00: [address] Proctocoli Proctocoli Disease Active U nivers tis tis 9-21 ity of 00:00: [address] Allergies, Adverse Reactions, Alerts Allergy Allergy Status Severity Reaction(s) Onset Inactive Treating Comm ents Source Name Type Date Date Clinician No Known DA Active U [facility]17 [facility] 00:[facility]: [facility] 00 are [facility] No Known DA Active U 2018-08 [facility]ergie 0-17 [facility] 00:00: [facility] 00 are [facility] NO KNOWN Drug Active Univers ALLERGIE Class ity of S [facility] Social History Social Habit Start Date Stop Date Quantity Comments Source History of Passive smoker University of tobacco use [facility] Exposure to 2022-08-14 2022-08-24 Not sure [facility] SARS-CoV-2 00:00:00 14:04:00 [facility] [place] [facility] (event) [place] Alcohol intake 2022-08-24 2022-08-24 Ex-drinker [facility] 00:00:00 00:00:00 (finding) [facility] Education 2022-05-11 2022-05-11 [facility] 00:00:00 00:00:00 [facility] Tobacco use and 2022-04-27 2022-04-27 Smokeless tobacco Un iversity of exposure 00:00:00 00:00:00 non-user [facility] Sex Assigned At [address] [facility] y of 00:00:00 00:00:00 [facility] Smoking Status Start Date Stop Date Source Ex-smoker 2022-04-27 00:00:00 2022-04-27 00:00:00 [facility] Medications Ordered Filled Start Stop Current Ordering Indication Dosage Frequency Signature Comments Components Source Medication Medication Date Date Medication? Clinician (SIG) Name Name ketorolac 2022- No 15mg 15 mg, Unive rs (TORADOL) 08-25 Slow IV ity of injection 01:15: 00:23 Push, [place] 15 mg 00 :00 ONCE, 1 Medical dose, On Branch 08/24/22 at 1915, JANNA iopamidol 2022- No [id number] 105mL 105 mL, Univers (ISOVUE 08-25 Intravenou [...] Branch 08/24/22 at 1700, JANNA ondansetron Yes [id number] 4mg Take 1 Univers 4 mg 1-18 tablet by ity of disintegrat 00:00: mouth [place] ing tablet 00 every 8 Medica l (eight) Branch hours as needed for Nausea and Vomiting (N/V). dicyclomine Yes [id number] 20mg Take 1 Univers 20 mg 1-18 [...] at 2230, 1 mL predniSONE 2021-08 Yes [id number] Take 1 po Univers 20 mg -26 tid x 2 ity of tablet 00:00: days, then 00 take 1 po Medical bid x 3 Branch days, then take 1 po daily x 5 days. predniSONE 2021-08 Yes [id number] Take 1 po Univers 20 mg 1-26 tid x 2 ity of tablet 00:00: days, then 00 take 1 po Medical bid x 3 Branch days, then take 1 po daily x 5 days. famotidine 2021-08- No [id number] 20mg Take 1 Univers (PEPCID) 20 - 12-12 tablet by it y of mg tablet 00:00: 05:59 mouth in [place] 00 :00 the Medical morning Branch and 1 tablet in the evening. Do all this for 15 days. predniSONE 2021-08- No [id number] Take 1 po Univers 20 mg -26 11-26 tid x 2 ity of tablet 00:00: 00:00 [place], [place] 00 :[place] 1 po bid x Medical 3 days, Branch then 1 po daily x 5 days famotidine 2021-08- No [id number] 20mg Take 1 Univers (PEPCID) 20 09-01- tablet by it y of mg tablet 00:00: 00:00 mouth in [place] 00 :00 the Medical morning Branch and 1 tablet in the evening. Do all this for 15 days. predniSONE 2021-08- No [id number] Take 3 Univers 5 mg tablet 08-22-08 tablets by i ty of 00:00: 05:59 mouth [place] 00 :00 daily for Medical 7 days, Branch THEN 2 tablets daily for 7 days, THEN 1 tablet daily for 7 days. predniSONE 2021-08- No [id number] Take 3 Univers 5 mg tablet 08-22-08 tablets by i ty of 00:00: 05:59 mouth [place] 00 :00 daily for Medical 7 days, Branch THEN 2 tablets daily for 7 days, THEN 1 tablet daily for 7 days. predniSONE 2021-08- No [id number] Take 3 Univers 5 mg tablet -16 12-08 tablets by i ty of 00:00: 05:59 mouth [place] 00 :00 daily for Medical 7 days, Branch THEN 2 tablets daily for 7 days, THEN 1 tablet daily for 7 days. lactobacill 2021-08- No [id number] .5mg Take 1 Univers 0-12 02-10 tablet by ity of acidophilus 00:00: 05:59 mouth in [place] 00 :00 the [facility] morning Branch for 120 days. lactobacill 2021-08- No [id number] .5mg Take 1 Univers us 0-12 02-10 tablet by ity of acidophilus 00:00: 05:59 mouth in [place] 00 :00 the [facility] Branch for 120 days. lactobacill 2021-08- No [id number] .5mg Take 1 Univers us 0-12 02-10 tablet by ity of acidophilus 00:00: 05:59 mouth in [place] 00 :00 the [facility] Branch for 120 days. lactobacill 2021-08- No [id number] .5mg Take 1 Univers us 0-12 02-10 tablet by ity of acidophilus 00:00: 05:59 mouth in [place] 00 :00 the [facility] for 120 days. predniSONE 2021-08- No [id number] Take 6 Univers 10 mg 0-12 11-17 [...] [place] mg 00 First dose Medical on [facility] 05/17/22 at 0900, Until Discontinu ed, Routine methylPREDN 2021-08 Yes 20mg 20 mg, Univ ers ISolone sod 0-08 Intravenou it y of succ 14:30: s, Q8H, [place] (SOLU-MEDRO 00 First dose Me dical L (PF)) on [facility] Branch injection 05/14/22 at 20 mg 0930, Until Discontinu ed, Routine methylPREDN 2021-08- No 20mg 20 mg, Uni vers ISolone sod 0-08 10-11 Intravenou i ty of succ 14:30: 13:41 s, Q8H, [place] (SOLU-MEDRO 00 :53 First dose Me dical L (PF)) on [facility] Branch injection 05/14/22 at 20 mg [...] days diphenhydrA 2021-08 Yes 25mg 25 mg, [facility] [place] [facility] 0-06 Intravenou ity of (BENADRYL) 02:25: s, Q4HPRN, [place] injection 39 Starting Medica l 25 mg on Mon Branch 05/11/22 at 2124, Until Discontinu ed, Routine, Itching diphenhydrA 2021-08 Yes 25mg 25 mg, [facility] [place] [facility] 0-06 Intravenou ity of (BENADRYL) 02:25: s, [...] Mon05/11/22 at 1430, STAT iopamidol 2021-08- No [id number] 75mL 75 mL, Univers (ISOVUE 0-04 10-04 Intravenou ity o f 370-500 mL) 03:45: 03:45 s, ONCE, 1 [place] injection 00 :00 dose, On Medica l 75 mL [facility] 05/09/22 at 2245, Routine FENTanyl PF 2021-08 No 75ug 75 mcg, Un kar (SUBLIMAZE 0-11 14- Slow IV ity o f (PF)) 03:30: 03:15 Push, [place] injection 00 :00 ONCE, 1 Medical 75 mcg dose, On [facility] 05/09/22 at 2230, Routine diphenhydrA 2021-08 No 25mg 25 mg, Uni vers MINE 0-11 14- Slow IV ity of (BENADRYL) 02:30: 03:12 Push, [place] injection 00 :00 ONCE, 1 Medical 25 mg dose, On [facility] 05/09/22 at 2130, STAT ondansetron 2021-08 No 4mg 4 mg, Slow Univers (ZOFRAN 0-11 14- IV Push, ity of (PF)) 02:15: 03:09 ONCE, 1 [place] injection 4 00 :00 dose, On Medi miranda mg [facility] 05/09/22 at 2115, JANNA ferrous 2021-08 No 325mg Take 325 Univ ers sulfate 325 0-03 10-03 mg by ity of mg (65 mg 20:43: 00:00 mouth in [place] iron) 33 :00 the Medical tablet morning. [place] mesalamine 2021-08 No [id number] 1.2g Take 1 Univers 1.2 gram EC 0-03 10-18 tablet by it y of tablet 00:00: 04:59 mouth [place] 00 :00 daily with Medical breakfast [place] for 14 days. mesalamine 2021-08 No [id number] 1.2g Take 1 Univers 1.2 gram EC 0-03 10-18 tablet by it y of tablet 00:00: 04:59 mouth [place] 00 :00 daily with Medical breakfast [place] for 14 days. mesalamine 2021-08 No [id number] 1.2g Take 1 Univers 1.2 gram EC 0-03 10-11 tablet by it y of tablet 00:00: 00:00 mouth [place] 00 :00 daily with Medical breakfast [place] for 14 days. ferrous Yes 325mg Take [...] mg 00 on [facility] 04/28/22 at [place] 1999, Until Discontinu ed, Routine
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 Indication s: acute pain mesalamine Yes [id number] 1.2g Take 1 U nivers 1.2 gram EC 9-23 tablet by ity of tablet 00:00: mouth [place] 00 daily with Medical breakfast. Branch vancomycin Yes [id number] 125mg Take 1 Univers 125 mg 9-23 capsule by ity of capsule 00:00: mouth 4 [place] 00 (four) Medical times Branch daily. mesalamine Yes [id number] 1.2g Take 1 U nivers 1.2 gram EC 9-23 tablet by ity of tablet 00:00: mouth [place] 00 daily with Medical breakfast. Branch vancomycin Yes [id number] 125mg Take 1 Univers 125 mg 9-23 capsule by ity of capsule 00:00: mouth [address] [place] [address] 00 (four) Medical times Branch daily. mesalamine Yes [id number] 1.2g Take 1 U nivers 1.2 gram EC 9-23 tablet by ity of tablet 00:00: mouth [place] 00 daily with Medical breakfast. Branch vancomycin Yes [id number] 125mg Take 1 Univers 125 mg 9-23 capsule by ity of capsule 00:00: mouth [address] [place] [address] (four) Medical times Branch daily. acetaminoph Yes [id number] 1{tbl} Take 1 Un kar en-codeine 9-23 tablet by ity of (TYLENOL-CO 00:00: mouth [place] DEINE #3) 00 every 6 Medical 300-30 mg (six) Branch tablet hours as needed for Pain (scale 7-10). Indication s: acute pain mesalamine Yes [id number] 1.2g Take 1 U nivers 1.2 gram EC 9-23 tablet by ity of tablet 00:00: mouth [place] 00 daily with Medical breakfast. Branch vancomycin Yes [id number] 125mg Take 1 Univers 125 mg 9-23 capsule by ity of capsule 00:00: mouth [address] [place] [address] 00 (four) Medical times Branch daily. mesalamine 2021- No [id number] 1.2g Take 1 Univers 1.2 gram EC 9-23 10-11 tablet by it y of tablet 00:00: 00:00 mouth [place] 00 :00 daily with Medical breakfast. Branch vancomycin 2021- No [id number] 125mg Take 1 Univers 125 mg 9-23 [...] Indication s: acute pain vancomycin 2021- No [id number] 125mg Take 1 Univers 125 mg 04-29 capsule by ity of capsule 00:00: 00:00 mouth 4 [place] 00 :00 (four) Medical times Branch daily for 9 days. mesalamine 2021- No [id number] 1.2g Take 1 Univers 1.2 gram EC [...] of 1,000 mg in 20:00: 19:48 Piggyback, [place] NaCl 0.9% 00 :56 Q24H ABX, Medic [...] 7-10) acetaminoph Yes 650mg 650 mg, Un akr en 04-27 Oral, ity of (TYLENOL) 18:52: Q6HPRN, [place] tablet 650 36 Starting Medic al mg on Mon Branch 04/27/22 at 1352, Until Discontinu ed, Routine, Pain (scale 1-3) iopamidol 2021- No [id number] 70mL 70 mL, Univers (ISOVUE 04-27 Intravenou ity o f 370-500 mL) 18:15: 18:15 s, ONCE, 1 [place] injection 00 :00 dose, On Medica l 70 mL Mon [place] 04/27/22 at 1315, Routine hydrOXYzine 2021- No 25mg 25 mg, Uni vers (ATARAX) 04-27 Oral, ity of tablet 25 17:30: 17:29 ONCE, 1 [place] mg 00 :00 dose, On Medical Mon [place] 04/27/22 at 1230, JANNA ondansetron 2021- No [...] 2022-08-25 01:11:00 148 mm[Hg] Univer sity of [facility] Diastolic blood 2022-08-25 01:11:00 98 mm[Hg] Unive rsity of [facility] Heart rate 2022-08-25 01:11:00 81 /min [facility] Respiratory rate 2022-08-25 01:11:00 16 /[facility] O[facility] saturation in 2022-08-25 01:11:00 99 /min University of Arterial blood by [place] [employer] [facility] Pulse oximetry Branch Body temperature 2022-08-24 20:06:00 36.83 [facility] [facility] Body height 2022-08-24 20:06:00 175.3 cm [facility] Body weight 2022-08-24 20:06:00 90.719 kg [facility] BMI 2022-08-24 20:06:00 29.53 kg/m2 [facility] Systolic blood 2022-07-03 06:00:00 134 mm[Hg] Univer sity of [facility] Diastolic blood 2022-07-03 06:00:00 84 mm[Hg] Unive rsity of [facility] Heart rate 2022-07-03 06:00:00 72 /min [facility] Respiratory rate 2022-07-03 06:00:00 18 /min [facility] Oxygen saturation in 2022-07-03 06:00:00 95 /min University of Arterial blood by [place] [employer] [facility] Pulse oximetry Branch Body temperature 2022-07-03 03:50:00 37.39 Breann Univ ers[facility] [place] [facility] Body height 2022-07-03 03:50:00 175.3 cm Universi ty [facility] [place] [facility] Body weight 2022-07-03 03:50:00 90.719 kg [facility]i [facility] [place] [facility] BMI 2022-07-03 03:50:00 29.53 kg/m2 [facility] [place] [facility] Systolic blood 2022-05-17 16:43:00 128 mm[Hg] Univer sity of pressure [place] [facility] Diastolic blood 2022-05-17 16:43:00 72 mm[Hg] Unive rsity of pressure [place] [facility] Heart rate 2022-05-17 16:43:00 58 /min Universi ty [facility] [place] [facility] Body temperature 2022-05-17 16:43:00 35.83 Breann Univ ers[facility] [place] [facility] Respiratory rate 2022-05-17 16:43:00 18 /min Univ ers[facility] [place] [facility] Oxygen saturation in 2022-05-17 16:43:00 100 /min University of Arterial blood by [place] [employer] miranda Pulse oximetry Branch Body weight 2022-05-17 09:42:00 87 kg Universi ty [facility] [place] [facility] BMI 2022-05-17 09:42:00 28.32 kg/m2 [facility] [place] [facility] Body height 2022-05-11 22:16:00 175.3 cm [facility]i ty [facility] [place] [facility] Systolic blood 2022-05-13 14:58:00 128 mm[Hg] Univer sity of pressure [place] [facility] Diastolic blood 2022-05-13 14:58:00 80 mm[Hg] Unive rsity of pressure [place] [facility] Heart rate 2022-05-13 14:58:00 86 /min [facility]i ty [facility] [place] [facility] Body temperature 2022-05-13 14:58:00 37.67 Breann Univ ers[facility] [place] [facility] Respiratory rate 2022-05-13 14:58:00 18 /min Univ ers[facility] [place] [facility] Oxygen saturation in 2022-05-13 14:58:00 99 /min University of Arterial blood by [place] miranda Pulse oximetry Branch Body weight 2022-05-13 09:27:00 90.992 kg [facility]i [facility] [place] [facility] BMI 2022-05-13 09:27:00 28.32 kg/m2 [facility] [place] [facility] Body height 2022-05-11 22:16:00 175.3 cm [facility] [place] [facility] Heart rate 2022-05-10 04:12:00 73 /min [facility] [place] [facility] Body temperature 2022-05-10 04:12:00 36.5 Breann Univ ers[facility] [place] [facility] Oxygen saturation in 2022-05-10 04:12:00 97 /min University of Arterial blood by [place] [employer] miranda Pulse oximetry Branch Systolic blood 2022-05-10 04:00:00 133 mm[Hg] Univer sity of pressure [place] [facility] Diastolic blood 2022-05-10 04:00:00 79 mm[Hg] Unive rsity of pressure [place] [facility] Respiratory rate 2022-05-10 04:00:00 19 /min Univ ersity [facility] [place] [facility] Body height 2022-05-10 01:42:00 175.3 cm [facility] [place] [facility] Body weight 2022-05-10 01:42:00 86.183 kg [facility] [place] [facility] BMI 2022-05-10 01:42:00 28.06 kg/m2 [facility] [place] [facility] Systolic blood 2022-04-29 17:14:00 132 mm[Hg] Univer sity of pressure [place] [facility] Diastolic blood 2022-04-29 17:14:00 98 mm[Hg] Unive rsity of pressure [place] [facility] Heart rate 2022-04-29 17:14:00 90 /min [facility]i ty [facility] [place] [facility] Body temperature 2022-04-29 17:14:00 36.28 Breann Univ ers[facility] [place] [facility] Respiratory rate 2022-04-29 17:14:00 18 /min Univ ers[facility] [place] [facility] Oxygen saturation in 2022-04-29 17:14:00 100 /min University of Arterial blood by [place] [employer] miranda Pulse oximetry Branch Body weight 2022-04-28 09:36:00 87.998 kg [facility] [place] [facility] BMI 2022-04-28 09:36:00 28.65 kg/m2 [facility] [place] [facility] Body height 2022-04-27 21:57:00 175.3 cm [facility] [place] [facility] Procedures Procedure Date / Time Performing Clinician Source Performed COMP. METABOLIC PANEL 2022-08-24 21:45:00 Elli Harley [facility] ([id number]) Medical Branch CBC WITH DIFF 2022-08-24 21:45:00 Elli Harley [facility] LACTIC ACID WHOLE BLOOD 2022-08-24 21:45:00 Elli Harley [facility] CONSENT/REFUSAL FOR 2022-08-24 19:59:50 Doctor Unassigned, [facility] DIAGNOSIS AND TREATMENT [place] [facility] COMP. METABOLIC PANEL 2022-07-03 04:42:00 Justin Baptiste [facility] ([id number]) [facility] CBC WITH DIFF 2022-07-03 04:42:00 Justin Baptiste [facility] CONSENT/REFUSAL FOR 2022-07-03 03:35:53 Doctor Unassigned, [facility] DIAGNOSIS AND TREATMENT [place] [facility] BASIC METABOLIC PANEL 2022-05-16 08:42:00 [facility], K, CL, CO2, GLUCOSE, Medica l Branch BUN, CREATININE, CA) CBC WITH DIFF 2022-05-16 08:42[facility]00 [facility] 2022-05-16 08:42:00 [facility] (NA, K, CL, CO2, GLUCOSE, Medica l Branch BUN, CREATININE, CA) CBC WITH DIFF 2022-05-16 08:42:00 [facility]OLIC PANEL 2022-05-15 09:46:00 [facility] (NA, K, CL, CO2, GLUCOSE, Medica l Branch BUN, CREATININE, CA) CBC WITH DIFF 2022-05-15 09:46:00 [facility]OLIC PANEL 2022-05-15 09:46:00 [facility] (NA, K, CL, CO2, GLUCOSE, Medica l Branch BUN, CREATININE, CA) CBC WITH DIFF 2022-05-15 09:46:00 Molina Stovall [facility] [place] [facility] BASIC METABOLIC PANEL 2022-05-14 08:30:00 Molina Stovall [facility] (NA, K, CL, CO2, GLUCOSE, Medica l Branch BUN, CREATININE, CA) CBC WITH DIFF 2022-05-14 08:30:00 Molina Stovall [facility] [place] [facility] BASIC METABOLIC PANEL 2022-05-14 08:30:00 Molina Stovall [facility] (NA, K, CL, CO2, GLUCOSE, Medica l Branch BUN, CREATININE, CA) CBC WITH DIFF 2022-05-14 08:30:00 [facility]AM 2022-05-13 16:29:00 Marybel Sexton [facility] FLEXIBLE SIGMOIDOSCOPY 2022-05-13 16:08:00 Marybel Sexton [facility] FLEXIBLE SIGMOIDOSCOPY 2022-05-13 16:08:00 Marybel Sexton [facility] FLEXIBLE SIGMOIDOSCOPY 2022-05-13 16:07:35 Robin eric [facility] (ENDO) [facility] FLEXIBLE SIGMOIDOSCOPY 2022-05-13 16:07:35 Robin eric [facility] (ENDO) [facility] HB ABO GROUPING 2022-05-13 11:11:00 Robin [facility] HB ABO GROUPING 2022-05-13 11:11:00 Robin [facility] BASIC METABOLIC PANEL 2022-05-13 08:57:00 Molina Stovall [facility] (NA, K, CL, CO2, GLUCOSE, Medica l Branch BUN, CREATININE, CA) CBC WITH DIFF 2022-05-13 08:57:00 Molina Stovall [facility] BASIC METABOLIC PANEL 2022-05-13 08:57:00 Molina Stovall [facility] (NA, K, CL, CO2, GLUCOSE, Medica l Branch BUN, CREATININE, CA) CBC WITH DIFF 2022-05-13 08:57:00 Molina Stovall [facility] VITAMIN D, 25-OH 2022-05-12 13:31:00 Robin [facility] VITAMIN D, 25-OH 2022-05-12 13:31:00 Robin [facility] PHOSPHORUS 2022-05-12 12:20:00 Robin [facility] MAGNESIUM 2022-05-12 12:20:00 Robin [facility] VITAMIN B12, LEVEL 2022-05-12 12:20:00 Robin [facility] C-REACTIVE PROTEIN 2022-05-12 12:20:00 Robin [facility] THYROID STIMULATING 2022-05-12 12:20:00 Robin [facility] COMP. METABOLIC PANEL 2022-05-12 12:20:00 Robin [facility] ([id number]) [facility] LIPID PANEL ([id number])(TOTAL 2022-05-12 12:20:00 Ferdinand Fofana [facility]LESTEROL[facility] TRIGLYCERIDES, HDL) N-TERMINAL PRO-BNP 2022-05-12 12:20:00 Robin [facility] PHOSPHORUS 2022-05-12 12:20:00 Robin [facility] MAGNESIUM 2022-05-12 12:20:00 Robin [facility] VITAMIN B12, LEVEL 2022-05-12 12:20:00 Robin [facility] C-REACTIVE PROTEIN 2022-05-12 12:20:00 Robin eric [facility] THYROID STIMULATING 2022-05-12 12:20:00 Robin eric [facility] HORMONE [facility] COMP. METABOLIC PANEL 2022-05-12 12:20:00 Robin eric [facility] ([id number]) [facility] Branch LIPID PANEL ([id number])(TOTAL 2022-05-12 12:20:00 Ferdinand Fofana [facility] CHOLESTEROLUc Health TRIGLYCERIDES, HDL) N-TERMINAL PRO-BNP 2022-05-12 12:20:00 Ferdinand Fofana [facility] PROTHROMBIN TIME / INR 2022-05-12 12:19:00 Ferdinand Fofana [facility] PROTHROMBIN TIME / INR 2022-05-12 12:19:00 Ferdinand Fofana [facility] CBC WITH DIFF 2022-05-12 12:18:00 Robin eric [facility] CBC WITH DIFF 2022-05-12 12:18:00 Robin eric [facility] XR KUB 2022-05-12 05:58:38 [facility] XR KUB 2022-05-12 05:58:38 Robin [facility] SEDIMENTATION RATE 2022-05-12 02:23:00 Robin eric [facility] CALPROTECTIN, FECAL 2022-05-12 02:23:00 Ferdinand Fofana [facility] SEDIMENTATION RATE 2022-05-12 02:23:00 Robin eric [facility] CALPROTECTIN, FECAL 2022-05-12 02:23:00 Robin eric [facility] OCCULT (GUAIAC) BLOOD 2022-05-12 02:10:00 Ferdinand Fofana [facility] OCCULT (GUAIAC) BLOOD 2022-05-12 02:10:00 [facility] URINALYSIS 2022-05-11 19:42:00 Romie Lewis [facility] CLOSTRIDIUM DIFFICILE 2022-05-11 19:42:00 Romie Lewis [facility] FECAL PATHOGENS BY PCR 2022-05-11 19:42:00 Ferdinand Fofana [facility] URINALYSIS 2022-05-11 19:42:00 Romie Lewis [facility] CLOSTRIDIUM DIFFICILE 2022-05-11 19:42:00 Romie Lewis [facility] FECAL PATHOGENS BY PCR 2022-05-11 19:42:[address] [facility] LACTIC ACID WHOLE BLOOD 2022-05-11 19:12:00 Romie Lewis [facility] LACTIC ACID WHOLE BLOOD 2022-05-11 19:12:00 Romie Lewis [facility] BLOOD CULTURE SCREEN 2022-05-11 19:10:00 Romie Lewis [facility] LIPASE 2022-05-11 19:10:00 Romie Lewis [facility] COMP. METABOLIC PANEL 2022-05-11 19:10:00 Romie Lewis [facility] ([id number]) [facility] CBC WITH DIFF 2022-05-11 19:10:00 Romie Lewis [facility] GLYCOSYLATED HEMOGLOBIN 2022-05-11 19:10:00 Ferdinand Fofana [facility] BLOOD CULTURE SCREEN 2022-05-11 19:10:00 Romie Lewis [facility] LIPASE 2022-05-11 19:10:00 Romie Lewis [facility] COMP. METABOLIC PANEL 2022-05-11 19:10:00 Romie Lewis [facility] ([id number]) [facility] CBC WITH DIFF 2022-05-11 19:10:00 Romie Lewis [facility] GLYCOSYLATED HEMOGLOBIN 2022-05-11 19:10:00 Ferdinand Fofana [facility] BLOOD CULTURE SCREEN 2022-05-11 19:00:00 Romie Lewis [facility] BLOOD CULTURE SCREEN 2022-05-11 19:00:00 Romie Lewis [facility] CONSENT/REFUSAL FOR 2022-05-11 18:00:56 Doctor Unassigned, [facility] DIAGNOSIS AND TREATMENT [place] [facility] CONSENT/REFUSAL FOR 2022-05-11 18:00:56 Doctor Unassigned, [facility] DIAGNOSIS AND TREATMENT [place] [facility] ABDOMEN PELVIS W 2022-05-10 03:29:54 Constantino Okeefe [facility] CONTRAST [facility] Branch HB ABO GROUPING 2022-05-10 02:49:00 Constantino Okeefe [facility] [facility] LIPASE 2022-05-10 02:48:00 Constantino Okeefe [facility] COMP. METABOLIC PANEL 2022-05-10 02:48:00 Constantino Okeefe [facility] ([id number]) [facility] CBC WITH DIFF 2022-05-10 02:48:00 Constantino Okeefe [facility] CONSENT/REFUSAL FOR 2022-05-10 01:33:55 Doctor Unassigned, [facility] DIAGNOSIS AND TREATMENT [facility] MAGNESIUM 2022-04-29 08:47:00 Cordell [facility] FERRITIN SERUM 2022-04-29 08:47:00 Cordell [facility] IRON 2022-04-29 08:47:00 Cordell [facility] TOTAL IRON BINDING 2022-04-29 08:47:00 Cordell [facility] CAPACITY [facility] BASIC METABOLIC PANEL 2022-04-29 08:47:00 Cordell [facility] (NA, K, CL, CO2, GLUCOSE, Medica l Branch BUN, CREATININE, CA) CBC WITH DIFF 2022-04-29 08:47:00 Cordell [facility] MAGNESIUM 2022-04-28 09:51:00 Jaci Estrella [facility] BASIC METABOLIC PANEL 2022-04-28 09:51:00 Jaci Estrella [facility] (NA, K, CL, CO2, GLUCOSE, Medica l Branch BUN, CREATININE, CA) CBC WITH DIFF 2022-04-28 09:51:00 Jaci Estrella [facility] C-REACTIVE PROTEIN 2022-04-28 01:53:00 Jaci Estrella [facility] CLOSTRIDIUM DIFFICILE 2022-04-28 01:46:00 Jaci Estrella [facility] TOXIN [facility] FECAL PATHOGENS BY PCR 2022-04-28 01:46:[address] [facility] COVID-19 (ID NOW RAPID 2022-04-27 18:36:00 Viv Ventura [facility] TESTING) [facility] Branch LAB ONLY COVID 2022-04-27 18:36:00 Viv Ventura [facility] INTERPRETATION [facility] CT ABDOMEN PELVIS W 2022-04-27 17:16:09 Viv Ventura [facility] CONTRAST [facility] Branch ABORH CONFIRMATION (LAB 2022-04-27 16:40:00 Viv Ventura [facility] ONLY) Medical Branch URINALYSIS 2022-04-27 15:38:00 Viv Ventura [facility] LIPASE 2022-04-27 15:10:00 Viv Ventura [facility] MAGNESIUM 2022-04-27 15:10:00 Viv Ventura [facility] TROPONIN I 2022-04-27 15:10:00 Viv Ventura [facility] COMP. METABOLIC PANEL 2022-04-27 15:10:00 Viv Ventura [facility] ([id number]) Medical Branch CBC WITH DIFF 2022-04-27 15:10:00 Viv Ventura [facility] PROTHROMBIN TIME / INR 2022-04-27 15:10:[address] [facility] ACTIVATED PARTIAL 2022-04-27 15:10:00 Viv Ventura [facility] THRMPLAS TY [facility] HB ECG ROUTINE & RHYTHM 2022-04-27 15:09:41 Viv Ventura [facility] STRIP [facility] HB ABO GROUPING 2022-04-27 15:09:00 Viv Ventura [facility] NOTICE OF PRIVACY 2022-04-27 14:49:32 Doctor Nico, [facility] PRACTICES [facility] CONSENT/REFUSAL FOR 2022-04-27 14:49:05 Doctor Nico, [facility] DIAGNOSIS AND TREATMENT [facility] Encounters Start End Encounter Admission Attending Care Care Encounter Source Date/Time Date/Time Type Type Clinicians Facility Department ID 2022-02-10 Outpatient [facility] [id number] [place] 11:33:[address] 2022-01-25 Outpatient [facility] [id number] [place] 15:47:07 ANA [id number] [facility] 2023-01-02 2023-01-02 Emergency EM Peleg, HCANW GAUTAM [id number] [facility] 09:07:00 13:07:00 Leeor [facility] 2023-01-02 2023-01-02 Emergency EM Peleg, HCANW GAUTAM [id number] [facility] 09:07:00 13:07:00 Leeor 40 [facility] 2022-11-26 2022-11-29 Inpatient EM Darin, HCANW MED [id number] [facility] 12:30:00 13:57:00 Mccracken [address] [facility] are [facility] 2022-11-26 2022-11-29 Inpatient EM Darin, HCANW MED [id number] [facility] 12:30:00 13:57:00 Mccracken [facility] 2022-11-21 2022-11-21 Emergency EM Bower II, HCANW GAUTAM [id number] [facility] 14:20:00 19:15:00 Dennis [facility] 2022-11-21 2022-11-21 Emergency EM Bower II, HCANW GAUTAM [id number] [facility] 14:20:00 19:15:00 Dennis 73 [facility] 2022-08-24 2022-08-24 Emergency X FAULCONER, [facility] ERT [id number] Univers 14:07:00 19:15:00 [facility] 2022-08-24 2022-08-24 Emergency Faulconer, [facility] 1.2.840.114 [id number] Univers 14:07:00 19:15:00 Elli INFANTE 350.1.13.10 i [facility] 4.2.7.2.686 [facility] [id number] [address] 2022-07-02 2022-07-03 Emergency X VASUT, [facility] ERT [id number] Univers 21:53:00 00:19:[address] [facility] 2022-07-02 2022-07-03 Emergency Vasut, [facility] 1.2.801.718 [id number] Univers 21:53:00 00:19:00 Justin INFANTE 350.1.13.10 i ty [facility] 4[place] [id number] [facility] 084 Branch 2022-07-02 2022-07-02 Orders Doctor JESSEE 1.2.840.114 [id number] Univers 00:00:00 00:00:00 Only Unassigned, NATE 350.1.13.10 ity of [facility] 4.2.7.2.686 Kartik as [id number] [facility] 009 Branch 2022-05-11 2022-05-17 [facility] [id number] Univers 13:03:00 14:23:00 [facility] 2022-05-11 2022-05-17 Emergency Joshua Romie [facility] 1.2.840. 114 [id number] Univers 13:03:00 14:23:00 Jaci Estrella 350.1.13.10 ity of [place] 4.2.7.2.686 [facility] [id number] [place] [id number] Branch 2022-05-13 2022-05-13 Surgery [facility] 1.2.389.426 [id number] Univers 10:30:00 11:10:00 Marybel INFANTE 350.1.13.10 i ty of [place] [id number] [facility] 020 Branch 2022-05-09 2022-05-09 Emergency X PENDING S[facility] TO [facility] ERT [id number] Univers 20:46:00 23:50:00 CONSTANTINO ity [facility] 2022-05-09 2022-05-09 Emergency [facility] 1.2.145.214 [id number] Univers 20:46:00 23:50:00 Constantino INFANTE 350.1.13.10 ity [place] [id number] [place] [id number] Branch 2022-05-02 2022-05-02 Transition Cochran, SHEARN 1.2.840.114 [id number] Univers 00:00:00 00:00:00 of Care Lana TRUONGY 350.1.13.10 ity of [place] 4.2.7.2.686 [facility] [id number] [facility] 403 Branch 2022-04-27 2022-04-29 Inpatient X CORDELL [facility] [id number] Univers 09:54:00 13:15:00 DARRYN ity [facility] 2022-04-27 2022-04-29 [facility] Viv Ventura [facility] 1.2.840.1 14 [id number] Univers 09:54:00 13:15:00 Encounter Jaci Estrella 350.1.13.10 ity of Darryn LandaJULIO 4.2.7.2.686 [facility] [id number] [facility] 081 Branch 2022-01-31 2022-01-31 Outpatient [facility] PIJFJJK QTO [facility] 00:00:00 00:00:00 [id number] 2022-01-30 2022-01-30 Emergency E SHINTHIA, MHKM [...] OBGEOVANNA [facility] 2022-01-25 2022-01-25 Outpatient [facility] [id number] [place] 18:30:00 18:30:00 Health 2022-01-25 2022-01-25 Outpatient [facility] PIJFJJK QTO [facility] 00:00:00 00:00:00 [id number] Results Test Description Test Time Test Comments Results Result [facility] e Comments - CT HEAD/BRAIN 2023-01-02 W/O CONT [facility]:34[facility]00 [facility] 1975 Sex: M Guerrero ronquillo Name: ALEX BURROUGHS Unit No: [id number] EXAMS: CPT: [id number] CT HEAD/BRAIN W/O CONT 28747 HISTORY: TENA CT SCAN OF THE HEAD [...] (1237) BATCH NO: N/A Name: ALEX BURROUGHS [facility] Phys: PELLE - Donna Iraheta B DO [address] [place] : 1975 Age: 47 Sex: [place] [address] Loc: N.ERS Exam Date: 01/02/2023 Status: REG ER PH: FAX: PAGE 1 Signed Report - CT HEAD/BRAIN 2023-01-02 W/O CONT 12:34:00 [facility] 1975 Sex: M Guerrero ronquillo Name: ALEX BURROUGHS Unit No: [id number] EXAMS: CPT: [id number] CT HEAD/BRAIN W/O CONT 12812 HISTORY: TENA CT SCAN OF THE HEAD [...] (1237) BATCH NO: N/A Name: ALEX BURROUGHS [facility] Phys: PELLE - Peleg,Leeor B DO [address] [place] : 1975 Age: 47 Sex: [place] [address] Loc: NEDNISHA Exam Date: 01/02/2023 Status: DEP ER PH: FAX: PAGE 1 Signed Report - CT ABD PELVIS 2023-01-02 W/CONT 11:56:00 [facility] 1975 Sex: M Guerrero ronquillo Name: ALEX BURROUGHS Unit No: [id number] EXAMS: CPT: [id number] CT ABD PELVIS W/CONT 05338 Comparison study: 11/21/2022 History: ABD PAIN GI [...] of the sigmoid colon. Name: ALEX BURROUGHS [facility] Phys: JOSHUAJAZIEL De La CruzBambi CERVANTES [address] [place] : 1975 Age: 47 Sex: [place] [address] Loc: N.ERS Exam Date: 01/02/2023 Status: REG ER PH: FAX: PAGE 1 Signed Report (CONTINUED) Patient Name: ALEX BURROUGHS Unit No: [id number] EXAMS: CPT: [id number] CT ABD PELVIS W/CONT 33441 (Continued) at 1156 Reported and signed by: John Paul Jha MD CC: Bambi De La Cruz Technologist: IAM Hanna CTDI: 13.28 DLP: 722.84 Trscr Dt/Tm: 01/02/2023 (1156) by:[email or web address] Orig Print D/T: S: 01/02/2023 (1200) BATCH NO: N/A Name: ALEX BURROUGHS [facility] Phys: ALEJA De La CruzBambi [address] [place] : 1975 Age: 47 Sex: [place]ha [place] [address] Loc: N.ERS Exam Date: 01/02/2023 Status: REG ER PH: FAX: PAGE 2 Signed Report - CT ABD PELVIS 2023-01-02 W/CONT 11:56:00 [facility] : 1975 Sex: M Guerrero ronquillo Name: ALEX BURROUGHS Unit No: [id number] EXAMS: CPT: [id number] CT ABD PELVIS W/CONT 20285 Comparison study: 11/21/2022 History: ABD PAIN GI [...] of the sigmoid colon. Name: ALEX BURROUGHS [facility] Phys: Bambi Rod [address] [facility] : 1975 Age: 47 Sex: [place] [address] Loc: N.ERS Exam Date: 01/02/2023 Status: [facility] ER PH: FAX: PAGE 1 Signed Report (CONTINUED) Patient Name: ALEX BURROUGHS Unit No: [id number] EXAMS: CPT: [id number] CT ABD PELVIS W/CONT 18633 (Continued) at 1156 Reported and signed by: John Paul Jha MD CC: Bambi De La Cruz Technologist: IAM Hanna CTDI: 13.28 DLP: 722.84 Trscr Dt/Tm: 01/02/2023 (1156) by:[email or web address] Orig Print D/T: S: 01/02/2023 (1200) BATCH NO: N/A Name: ALEX BURROUGHS [facility] ED Phys: Bambi Rod [address] : 1975 Age: 47 Sex: [place] [address] Loc: N.ERS Exam Date: 01/02/2023 Status: DEP [...] message] The (test code = URO) system [facility] generated this result transmit eunice reference [...] culture: Gross HematuriaSpecimen Description: CLEAN CATCHBASIC METABOLIC [id number] 10:17:00 Test Item Value Reference Range Interpretation [...] [Automated message] (test code = The system [employer] HEMINDEX) generated this result transmitted ref erence range: 1 NORMAL . The reference range was not used to int erpret this result as normal/abnormal . INDEX ICTERIC 1 Index/DL See_Comment [Automated me ssage] (test code = The system [employer] ICTINDEX) generated this result transmitted ref erence range: 1 NORMAL . The reference range was not used to int erpret this result as normal/abnormal . INDEX LIPEMIA 1 Index/DL See_Comment [Automated me ssage] (test code = The system [employer] LIPINDEX) generated this result transmitted ref erence range: 1 NORMAL . The reference range was not used to int erpret this result as normal/abnormal . LIVER FUNCTION [id number] 10:17:00 Test Item Value Reference Range Interpretation [...] code = 54 U/L 42-121 N ALKP) [id number] 10:17:00 Test Item Value Reference Range Interpretation Comments LIPASE (test code = LIP) 37 IU/L 22-51 N CBC W/AUTO [id number] 09:57:00 Test Item Value Reference Range Interpretation [...] x10 3/uL 0.0-0.1 N HGBA1C - GLYCOSYLATED [id number] 14:18:00 Test Item Value Reference Range Interpretation Comments GLYCOSYLATED HEMOGLOBIN 6.3 % 4.0-6.0 H Inte rpretive Data: (HA1C) (test code = Caution should be GLYHGB) exercised when interpreting th e HgbA1c in patients wit h hemolytic anemi a, iron deficiency and when the total hemoglobi n is < 9g/dL, due to a decrease in average age of red blood cells [id number] 05:52:00 Test Item Value Reference Range Interpretation Comments GLUBED (test code = GLUBED) 161 MG/DL 70-105 H [id number] 05:38:00 Test Item Value Reference Range Interpretation Comments PHOSPHOROUS (test code = PHOS) 3.2 mg/dl 2.5-4.6 N [id number] 05:38:00 Test Item Value Reference Range Interpretation Comments MAGNESIUM (test code = MAG) 2.1 mg/dl 1.8-2.5 N BASIC METABOLIC [id number] 05:06:00 Test Item Value Reference Range Interpretation [...] [Automated message] (test code = The system [employer] HEMINDEX) generated this result transmitted ref erence range: 1 NORMAL . The reference range was not used to int erpret this result as normal/abnormal . INDEX ICTERIC 1 Index/DL See_Comment [Automated me ssage] (test code = The system [employer] ICTINDEX) generated this result transmitted ref erence range: 1 NORMAL . The reference range was not used to int erpret this result as normal/abnormal . INDEX LIPEMIA 0 Index/DL See_Comment [Automated me ssage] (test code = The system [employer] LIPINDEX) generated this result transmitted ref erence range: 1 NORMAL . The reference range was not used to int erpret this result as normal/abnormal . CBC W/AUTO [id number] 04:59:00 Test Item Value Reference Range Interpretation [...] = BA#) 0.0 x10 3/uL 0.0-0.1 N [id number] 17:40:00 Test Item Value Reference Range Interpretation Comments GLUBED (test code = GLUBED) 122 MG/DL 70-105 H BASIC METABOLIC [id number] 07:03:00 Test Item Value Reference Range Interpretation [...] [Automated message] (test code = The system [employer] HEMINDEX) generated this result transmitted ref erence range: 1 NORMAL . The reference range was not used to int erpret this result as normal/abnormal . INDEX ICTERIC 1 Index/DL See_Comment [Automated me ssage] (test code = The system [employer] ICTINDEX) generated this result transmitted ref erence range: 1 NORMAL . The reference range was not used to int erpret this result as normal/abnormal . INDEX LIPEMIA 0 Index/DL See_Comment [Automated me ssage] (test code = The system [employer] LIPINDEX) generated this result transmitted ref erence range: 1 NORMAL . The reference range was not used to int erpret this result as normal/abnormal . [id number] 07:03:00 Test Item Value Reference Range Interpretation Comments PHOSPHOROUS (test code = PHOS) 3.0 mg/dl 2.5-4.6 N [id number] 07:03:00 Test Item Value Reference Range Interpretation Comments MAGNESIUM (test code = MAG) 1.5 mg/dl 1.8-2.5 L CBC W/AUTO [id number] 06:51:00 Test Item Value Reference Range Interpretation Comments WHITE BLOOD CELL (test 9.5 x10 3/uL 3.2-11.5 N code = WBC) RED BLOOD CELL (test 4.26 x10(6)/m 4.20-5.70 N code = RBC) HEMOGLOBIN (test code 10.8 g/dL 12.9-17.3 L NOTIFI ED JOHN = HGB) [place] RN HEMATOCRIT (test code 34.3 % 38.7-51.0 [...] x10 3/uL 0.0-0.1 N = BA#) SED [id number] 11:56:00 Test Item Value Reference Range Interpretation Comments SED RATE (test code = SEDW) 10 mm/hr 0-15 N BASIC METABOLIC [id number] 11:18:00 Test Item Value Reference Range Interpretation [...] [Automated message] (test code = The system [employer] HEMINDEX) generated this result transmitted ref erence range: 1 NORMAL . The reference range was not used to int erpret this result as normal/abnormal . INDEX ICTERIC 1 Index/DL See_Comment [Automated me ssage] (test code = The system [employer] ICTINDEX) generated this result transmitted ref erence [...] this result as normal/abnormal . CBC W/AUTO [id number] 11:09:00 Test Item Value Reference Range Interpretation [...] 0.0 x10 3/uL 0.0-0.1 N THYROID STIMULATING [id number] 05:46:00 Test Item Value Reference Range Interpretation Comments THYROID STIMULATING HORMONE 1.762 uIU/ml 0.450-5.330 N (test code = TSH) CBC W/AUTO [id number] 05:38:00 Test Item Value Reference Range Interpretation [...] 0.1 x10 3/uL 0.0-0.1 N BASIC METABOLIC [id number] 05:26:00 Test Item Value Reference Range Interpretation [...] [Automated message] (test code = The system [employer] HEMINDEX) generated this result transmitted ref erence range: 1 NORMAL . The reference range was not used to int erpret this result as normal/abnormal . INDEX ICTERIC 1 Index/DL See_Comment [Automated me ssage] (test code = The system [employer] ICTINDEX) generated this result transmitted ref erence range: 1 NORMAL . The reference range was not used to int erpret this result as normal/abnormal . INDEX LIPEMIA 0 Index/DL See_Comment [Automated me ssage] (test code = The system [employer] LIPINDEX) generated this result transmitted ref erence range: 1 NORMAL . The reference range was not used to int erpret this result as normal/abnormal . UA RFLX MICR CULT IF [id number] 22:47:00 Test Item Value Reference Range Interpretation [...] NITRITE DIPSTICK NEGATIVE NEGATIVE (test code = DNAIA) UA ASCORBIC ACID NEGATIVE DIPSTICK (test code [...] RiskForSepsis-no oth srcSpecimen Description: CLEAN CATCHBASIC METABOLIC [id number] 22:37:00 Test Item Value Reference Range Interpretation [...] [Automated message] (test code = The system [employer] HEMINDEX) generated this result transmitted ref erence range: 1 NORMAL . The reference range was not used to int erpret this result as normal/abnormal . INDEX ICTERIC 1 Index/DL See_Comment [Automated me ssage] (test code = The system [employer] ICTINDEX) generated this result transmitted ref erence [...] this result as normal/abnormal . LIVER FUNCTION [id number] 22:37:00 Test Item Value Reference Range Interpretation [...] code = 61 U/L 42-121 N ALKP) [id number] 22:37:00 Test Item Value Reference Range Interpretation Comments LIPASE (test code = LIP) 37 IU/L 22-51 N CBC W/AUTO [id number] 22:23:00 Test Item Value Reference Range Interpretation [...] 3/uL 0.0-0.1 N - CT ABD PELVIS [id number] 18:23:00 [facility] 1975 Sex: MPatient Name: ALEX BURROUGHS Unit No: [id number] EXAMS: CPT: [id number] CT ABD PELVIS W/CONT 16398 EXAM: - CT ABD PELVIS W/CONT, on [...] colitis. No significant pericolonic inflammation. Name: MANJEETALEX [facility] EDPhys: Marvel Morris [address] [facility] : 1975 Age: 47 Sex: [place], [place] [address]Nifm No: [id number] Loc: N.ERS Exam Date: 11/21/2022 Status: DEP ER PH: FAX: PAGE 1 Signed Report(CONTINUED) Patient Name: ALEX BURROUGHS Unit No: [id number] EXAMS: CPT: [id number] CT ABD PELVIS W/CONT 49728 (Continued) 2. No obstructive uropathy or bowel obstruction. Normal appendix at 1823 Reported and signed by: MAIA BONILLA MD CC: Marvel HARO Technologist: JENNIFER Kovacs CTDI: 10.99 DLP: 598.17 Trscr Dt/Tm: 11/21/2022 (1822) by:[email or web address] Orig Print D/T: S: 11/21/2022 (1825) BATCH NO: N/A Name: NAT BURROUGHSAN [facility] ED Phys: Marvel Morris [address] : 1975 Age: 47 Sex: [place] [address] Loc: N.ERS Exam Date: 11/21/2022 Status: DEP ER PH: FAX: PAGE 2 SignedReport- CT ABD PELVIS [id number] 18:23:00 [facility] : 1975 Sex: MPatient Name: ALEX BURROUGHS Unit No: [id number] EXAMS: CPT: [id number] CT ABD PELVIS W/CONT 40595 EXAM: - CT ABD PELVIS W/CONT, on [...] No significant pericolonic inflammation. Name: ALEX BURROUGHS [facility] EDPhys: Marvel Morris [address] [facility] : 1975 Age: 47 Sex: [place], [place] [address]Ufkz No: [id number] Loc: N.ERS Exam Date: 11/21/2022 Status: DEP ER PH: FAX: PAGE 1 Signed Report(CONTINUED) Patient Name: ALEX BURROUGHS Unit No: [id number] EXAMS: CPT: [id number] CT ABD PELVIS W/CONT 48545 (Continued) 2. No obstructive uropathy or bowel obstruction. Normal appendix at 1823 Reported and signed by: MAIA BONILLA MD CC: Marvel HARO Technologist: JENNIFER Kovacs CTDI: 10.99 DLP: 598.17 Trscr Dt/Tm: 11/21/2022(1822) by:[email or web address] Orig Print D/T: S: 11/21/2022 (1825) BATCH NO: N/A Name: ALEX BURROUGHS [facility] ED Phys: Marvel Morris [address] [facility] : 1975 Age: 47 Sex: [place] [address] Loc: N.ERS Exam Date: 11/21/2022 Status: DEP ER PH: FAX: PAGE 2 Signed ReportBASIC METABOLIC [id number] 16:50:00 Test Item Value Reference Range Interpretation [...] mg/dL 8.5-10.5 N = CA) LIVER FUNCTION [id number] 16:50:00 Test Item Value Reference Range Interpretation [...] code = 62 U/L 42-121 N ALKP) [id number] 16:50:00 Test Item Value Reference Range Interpretation Comments LIPASE (test code = LIP) 34 IU/L 22-51 N UA RFLX MICR CULT IF [id number] 16:38:00 Test Item Value Reference Range Interpretation [...] culture: Suprapubic PainSpecimen Description: CLEAN CATCHCBC W/AUTO [id number] 15:23:00 Test Item Value Reference Range Interpretation [...] x10 3/uL 0.0-0.1 N COMP. METABOLIC PANEL (31632)2022-08-24 22:30:45 Test Item Value Reference Range Interpretation Comments NA (test code = 137 mmol/L 135-145 9003726004) K (test code = 4.1 mmol/L 3.5-5.0 4793982632) CL (test code = 105 mmol/L 98-108 1357086804) CO2 TOTAL (test code 26 mmol/L 23-31 = 2862717137) AGAP (test code = 2-16 4245254367) BUN (test code = 10 mg/dL 7-23 0414929737) GLUCOSE (test code = 95 mg/dL 70-110 1012663569) CREATININE (test code 0.93 mg/dL 0.60-1.25 = 2098753132) TOTAL BILI (test code 0.5 mg/dL 0.1-1.1 = 2989108633) CALCIUM (test code = 8.8 mg/dL 8.6-10.6 4340536089) T PROTEIN (test code 7.1 g/dL 6.3-8.2 = 0271885798) ALBUMIN (test code = 4.0 g/dL 3.5-5.0 1330926617) ALK PHOS (test code = 80 U/L 34-122 8427290271) ALTv (test code = 19 U/L 5-50 1742-6) AST(SGOT) (test code 25 U/L 13-40 = 4755977889) eGFR (test code = mL/min/1.73m2 1102244960) ROBERTO (test code = ROBERTO) Association of [...] urine or abnormalities in imaging tests). [facility] WITH [id number] 22:14:06 Test Item Value Reference Range Interpretation Comments WBC (test code = See_Comment [Automated 5647-2) message] The sy stem which generated this [...] (test code = 54.9 fL 38.5-51.6 H 34497-4) RDW-CV (test code = 21.0 % 12.1-15.4 H 788-0) PLT (test code = See_Comment H [Automated 777-3) message] The sy stem which generated this result transmitted reference range : 150 - 328 10*3/ ?L. The reference r carlota was not used to interpret this result as normal/abnormal . MPV (test code = 10.1 fL 9.8-13.0 79403-3) NRBC/100 WBC (test See_Comment [Automat ed code = 3210437909) message] The system which generated this result transmitted reference range : 0.0 - 10.0 /100 WBCs. The refer ence range was not u sed to interpret th is result as normal/abnormal . NRBC x10^3 (test code See_Comment [Auto mated = 3204360452) message] The s ystem which generated this result transmitted reference range : 10*3/?L. The reference range was not used to interpret this result as normal/abnormal . GRAN MAT (NEUT) % 52.4 % (test code = 770-8) IMM GRAN % (test code 0.30 % = 9932879719) LYMPH % (test code = 23.7 % 736-9) MONO % (test code = 15.7 % 5905-5) EOS % (test code = 6.3 % 713-8) BASO % (test code = 1.6 % 706-2) GRAN MAT x10^3(ANC) 3.94 10*3/uL 1.99-6.95 (test code = 1956747768) IMM GRAN x10^3 (test 0.00-0.06 code = 4585838599) LYMPH x10^3 (test code 1.78 10*3/uL 1.09-3.23 = 731-0) MONO x10^3 (test code 1.18 10*3/uL 0.36-1.02 H = 742-7) EOS x10^3 (test code = 0.47 10*3/uL 0.06-0.53 711-2) BASO x10^3 (test code 0.12 10*3/uL 0.01-0.09 H = 704-7) Lab Interpretation Abnormal (test code = 30303-0) [facility] Whole [id number] 21:51:41 Test Item Value Reference Range Interpretation Comments LACTIC ACID (test code = 1.02 mmol/L 0.50-2.20 1315834049) Lab Interpretation (test code = Normal 03687-7) [facility]. METABOLIC PANEL ([id number])2022-07-03 05:30:27 Test Item Value Reference Range Interpretation Comments NA (test code = 140 mmol/L 135-145 0781770799) K (test code = 4.2 mmol/L 3.5-5.0 9618258117) CL (test code = 105 mmol/L 98-108 1228640462) CO2 TOTAL (test code 30 mmol/L 23-31 = 6844691232) AGAP (test code = 2-16 2927612206) BUN (test code = 13 mg/dL 7-23 5990605786) GLUCOSE (test code = 92 mg/dL 70-110 6740678006) CREATININE (test code 0.89 mg/dL 0.60-1.25 = 0918082083) TOTAL BILI (test code 0.4 mg/dL 0.1-1.1 = 2551851610) CALCIUM (test code = 9.2 mg/dL 8.6-10.6 3161373451) T PROTEIN (test code 7.2 g/dL 6.3-8.2 = 9322035768) ALBUMIN (test code = 4.3 g/dL 3.5-5.0 5563021018) ALK PHOS (test code = 62 U/L 34-122 3023044780) ALTv (test code = 19 U/L 5-50 1742-6) AST(SGOT) (test code 32 U/L 13-40 = 3495200057) eGFR (test code = mL/min/1.73m2 1331597695) ROBERTO (test code = ROBERTO) Association of [...] urine or abnormalities in imaging tests). [facility] WITH [id number] 04:54:46 Test Item Value Reference Range Interpretation Comments WBC (test code = See_Comment [Automated 7990-2) message] The sy stem which generated this [...] RDW-SD (test code = 47.4 fL 38.5-51.6 88430-8) RDW-CV (test code = 18.8 % 12.1-15.4 H 788-0) PLT (test code = See_Comment H [Automated 777-3) message] The sy stem which generated this result transmitted reference range : 150 - 328 10*3/ ?L. The reference r carlota was not used to interpret this result as normal/abnormal . MPV (test code = 9.9 fL 9.8-13.0 09620-0) NRBC/100 WBC (test See_Comment [Automat ed code = 9244870474) message] The system which generated this result transmitted reference range : 0.0 - 10.0 /100 WBCs. The refer ence range was not u sed to interpret th is result as normal/abnormal . NRBC x10^3 (test code See_Comment [Auto mated = 3531379699) message] The s ystem which generated this result transmitted reference range : 10*3/?L. The reference range was not used to interpret this result as normal/abnormal . GRAN MAT (NEUT) % 52.0 % (test code = 770-8) IMM GRAN % (test code 0.30 % = 3019457850) LYMPH % (test code = 28.1 % 736-9) MONO % (test code = 16.8 % 5905-5) EOS % (test code = 1.6 % 713-8) BASO % (test code = 1.2 % 706-2) GRAN MAT x10^3(ANC) 3.91 10*3/uL 1.99-6.95 (test code = 9080712528) IMM GRAN x10^3 (test 0.00-0.06 code = 9483239683) LYMPH x10^3 (test code 2.11 10*3/uL 1.09-3.23 = 731-0) MONO x10^3 (test code 1.26 10*3/uL 0.36-1.02 H = 742-7) EOS x10^3 (test code = 0.12 10*3/uL 0.06-0.53 711-2) BASO x10^3 (test code 0.09 10*3/uL 0.01-0.09 = 704-7) Lab Interpretation Abnormal (test code = 33927-3) [facility] [id number] 15:55:55 Test Item Value Reference Range Interpretation Comments Case Report (test code Surgical Pathology ? ? = [id number]) ?Case: [id number] ? Authorizing Provider: ?Marybel Sexton MD ? ? ? Collected: ? 05/13/2022 1129 ?Ordering Location: ? ? [facility] ? ? ?Received: ?05/13/2022 1621 ? [facility] ?Pathologist: ? Coleen Rosario MD ? Specimens: ? A) - LARGE INTESTINE, LEFT-DESCENDING COLON, random biopsies ? B) - LARGE INTESTINE, SIGMOID COLON, random biopsies ? C) - RECTUM, Random biopsies ? Final Diagnosis (test k2tyzIVvVKGcs0adJTPbmG code = 4723290750) FuZzEwMzNcZnRuYmpcdWMx IHtccnRmMVxlcGljMTAxMD UjEO0xgFlmdVo3lBecQRSg lxQ0uOScIXntf4zdWQN1d3 gzclenZDDkZKxhLr5ozHCb zXgvVoGaZVNbEQc2tO40UJ OfdV6taPNdTFv2UIBhfKKc rwUlYtTpDKTraIZkyGG5XK IeWB0qsvthCObwKZipLALg blH2PUEyvDKlN7KeTKLhTB 1ttmovMJF3VFadCEMsARA4 YdFwEDHqp5Qqljf5UoBigG FyZFxwbGFpblxmczIwXHBh dpqlgZN8CBcgoW92FWPmiD clHURuYBZoSIUUEO7IXBUG XLGRTHEGE4YOAkONTemhZR XFIxVNYLIZOY6DV6p5HWrf BJVoeZpkNWOtQHphhE9cIH RxWGVhYXHBEA6PFIXxPKGU U3TDMAtVIIvoFPpPGSQkVI MHKWNAJVXUXkkcT4HKGKNq LCJTB4JXGfstVL8RIwJNM7 LEDOjMTNXVP7MMUJJRLFMH VElDXHBhciAgICAgICAgSU 9DGGgWEwGMSCRKIeRPNC3M DaQaYRVFMNAMIVilCN5HTD CDNKPHKFPSF1vCNFGLPTNP ESsiVFcIQA3NUUaWXpjeC6 7OQ9nDBRZFGBJWVTOLENls YXIgICAgICAgIFNFVkVSRU xZIEFDVElWRSBDSFJPTklD IENPTElUSVNccGFyICAgIC 3eRh0iO5HZBmXGT33YTW2W HKSTO1JNRNPUIIGPPSXDYL lGSUVEIFxwYXJccGFyXGxp HEClSTEyYLC8NLcpiE25OD FsZv2xS76QY89jHAFHD82L DJRiYOFFNqJQEUPDYC3OX4 o3UQqvURIerXlhUNTdJBjk jY4sYRCtOY7mI73MX77ZRy PHYEDCR1SiI7lNIUTVMADP SyufL9UJQDWFVMqPQKTGLf lQVCBBQlNDRVNTLCBJTkNS RUFTRUQgTFlNUEhPUExBU0 1OA6zMAGXiaTIjDMDoEYBx WO5DUHbSEwGPNTDKEsFYCI 7DZbThKHZCPUMWVPwyUV0D MCGHENDSHNCQP9kUOMUBRA NROZjgFOfLNA3WBMtZUkhf U9ZREFLrKSJABBWYWCEdbO EhAOVjSUMzJ28MQ4eTQKCH VCBXSVRIIFNFVkVSRUxZIE FDVElWRSBDSFJPTklDIENP OKxXKQDczSOkQQFzGS4cVl 2vM4KALwGXQ64BFF2GEHOD S2AEGAPMKLWRSOFPEKcADY VEIFxwYXJccGFyXGxpNDUw PPPoAHN5QBklqF47ETQxPw 2vTaIREGMMFGBRWP1GI65k QklPUFNZOiBccGFyXGxpMF xmaTBcbGluMCAgICAtIENP UK0AMRFwQSVHQ2XIGJcSOK ggVUxDRVIsIENSWVBUSVRJ KaarK1ZJKOPpLQFBB9JWAe pfLT6MCkYTN8BXYElODZPR B3GNVJULQQZUIFyAMTJqrr AgICAgIElORklMVFJBVEUg AA5vICOVAV5EAIBOS9SQZC EsIEFORCBDUllQVCBBUkNI NVABT5FYNcBUBEOEN8UDRq HVL26dTRAAMOXAOVXAE4Nq E7SQHCooMUXdYHVyBUXPN1 8LUKPKVF0OBCcAZQgoN3KW RVJFTFkgQUNUSVZFIENIUk 9HZLGuBVPHO6HVNGrATRHl phXxJVNcHX2BKMhFGF1BPE 9NQSBPUiBEWVNQTEFTSUEg SURFTlRJRklFRCBccGFyXH BmudnczlEuVEqsHai1MYLr SOheNK3wUTAIWHLxVR4fAP 0hJVRqWPh3ZFysQU1jiBCb SNCutzTzBaUfSOvpNLD8x2 xydGYxXHNzdGVjZjIyMDAw PLWan8isTSVbzZBzCrCcOf NcZnRuYmpcdWMxXGRlZmYw w8hdy971uOKmy4fuPOKhPe E3wYBkAGIhmKedfoq6oWev WaBfSRPlu2pzwnBxReOkXS EdUQRgJVMyoYGvA482DJLh ZKzal4nhw6RwZXEnlHPle3 M8QOAGDTqsOpAoM322r6pv p8vbjfPdwXR2HRHaOEO7BP vpepBrctE5OLgyxFKjFxR7 IDtccmVkMFxncmVlbjBcYm y1JAIzV851OIQ8eRylg8dp EGS0XXHoIGXxWptbDh9omA EfG191UMNbOCXASCCbcLf0 GHItprGabuCuwUVHi687K8 36e0cuLVOejgIjjPgSpbgt z7ejI205YNUbjGXrbmFaCx GwUSKxyAYfmWJ2HJVkBQ9z oemiNCjbSNtmZGJenzO3EX TixNNuZ5QuERIhMT1txsws ESM4ZFagXMOqOFI7DjUwPP Znn3Vsite9WtBumf9ldx89 VHC8g3CsjYfbFQZ8XSW0Jd BqGg6ymNSoRIJcAR0kDpDg bJOhHTNwkz59eFurCAioxn XxsE7fAqQhPTFmvQJbTZSg WL3dhFYbXNJzgI1kesqdYD BnYnJkcmhlYWRccGdicmRy Wx3rgAekCVB6NDknY2ugfA 2dMeG3JCwuV3aftH6vRUv5 FHiryRV2TWPfgM3wQC1shr dlr8nbKRbaUHcnSXTobrG1 uhC2UAYcoKWoH3PnbA9uQK EyRT5desfmb6uqBEN6OZcf TYAvADS5LcDuROLys0Sxkd u3DjGgv3BklOEmRIztL17g v278DQGgreMtR9xatNVzvj osdEDgdhmvDAjqaaG3CKAp XHBsYWluXGYxXGZzMjBcbG FuZzEwMzNcaGljaFxmMVxk NbMeHMBsZQxoP4niNrLkB6 YyXGZzMjBccGFyIEkgaGF2 IXKgHZQia53pqHd0CHZkfl bwr0MrGIWqyVCckAKodH5l zbXyb5kdGKGxZTUxMSYhH6 TiMXO6cWRzTPDksDVcvLU5 CO5ohiHbRT4sIDSgEitiyn VhlGZmvdAoRXCdUZbfo3hk HI4sYXJosXuzeX8niFC7AY Oqa2sjxXOtjZTay7kgl7Bj bmFtZShzKSBtYXkgYXBwZW QvSW2zTUCauRDcedUxe9R1 YodywMKsyoplOesgqtL9CP sgxdnyHHPsXHmyH2ncRgJe DJLmpKmxHvpmo3UkWAZvDK ZzMjhccGFyfX0= Final Diagnosis Comment u6ghsYCkXOKmqWGfUURtH9 (test code = gparTnFDApeRTtT8Djeuhb 8486648895) QMitTY1oKG5mwPcntPCrxF MkHLBwDtSfn2ork118sRWx p3soIXFNhjzoiSz3qFhzQ9 3rf2U2MzsnE96ijXTgAUM5 PKPrAUTjsRPqMIAfEPO8GO PprWCnZ0zpQUYgLM8gskvt GZnsRLohDAVlkXZ3IXDtvE ErH2XyJHMiWBmaRUZefyq4 KsIpIj0mhOZbkHzySUjfCC JkXHBsYWluXGZzMjAgRHIu GOUupMBtKGZfhrJ2sFT6RT HykSdpVEZke9QvXE5jWVJs ciW0jtFtk7r4jUD7hMXbQU qsU89bx1bfXlSaTJMsvd1= Clinical Information colitis (test code = 2153077077) Gross Description (test f7ygnRZnJZDssRDLDEOeKM code = 4682339905) CkJA0lsYpiqBk9fWojWSPe faN2eNFpWJrsz9woERR2b5 llbiANClxkZWZmMVxwYXBl jkufMxM0YFhbNSBdhmjqRP z4LEdtVPClcJJ0JZFhaKQy U2UrQJWdAW7jiak3WZV1VI ewLUOmUgC5TEEbHbFpRtqm RVz2LMUqrxS8Jir4KKGpRW UfwYJjx4S1BMtutacuETPz vLJiN863HYhnt6BnrQUgXA pccGFyZCANCntcKlxlcGlj r3ArpPUmSTcvESHxSKAoWZ zqvdfsAKj8WUAgDOqpeWGz UJ9rcWwgGmjviRopj7AvcG BcXGlkIDUxMDAyIFxcZGIg QM7HRlDvOSH7PRejUzgbZA g8RQl9HM6ZPjLxAZIcTDLe RjO4KVLoVCa0RVcqAX0TQK H8PLE6WTH5HKJkTASzJfhh OVj0JBCmXQzwGMWlcGRzGG piTySlJVLsJUufvFMeFJ0f fVxwbGFpblxmczIwIFNQRU CFXFDWZVYtoHTePH3PBSXp NBqbDQYlbCXDHVJ1AG1uJC ANClxsdHJwYXJcbGluMFxy tZ5mRG1NMRw9jkJsQDNqQx UuS4HdL5ajID7qYCDjffDd GZNwgWBcVHIxcrOkb0HkSB xzqbThUPNnjGofHCV2kCQg MFIfDAMuXVIyLR85YBwADQ MgbmFtZSwgVUggbnVtYmVy IGBgIGxhcmdlIGludGVzdG ivUUurnADjbUFwQBFcZI4t gO4lWRWdKP7ie58lDnnigD VtZNXhW8Z2PVeELVVluxNu W04zh8xdcCNdt6YljYEycL lwbGUgdGFuLXBpbmsgaXJy RSv8wOOwIFBcWeKntWrzj2 JmYFYtKZdgFR56tyEvOJ9d LTAuMyBjbSBncmVhdGVzdC PyjO9xddDki85fYYSfHWV4 YQEtARO2GGRcLZChrNMopy MgE3kqIKxsoMRnQhTLrOQv b0TiP0mlZU9ubIXuPvrkvR RnKRCtiTpfc8VwnYOmKINh k7BkfVRtRErqLI4lNWB7Ig 3doSCtCXGfrmK8a6ZtSVfa YPGjLgmzhN8oITzxaZ1dKT 6UIZKbiAKMBYH1DR2gHCp3 ERcsFILvT7ObI1JjtkUqoO MqLMOwpdKfu7gfTFR6EJJp aJQooUWbZpAzMukdALF3AZ YpCSehMQ7Ba5nxOTGblCIx QBL7ZXquhIFlEHGeVXPgVE ybGlNnW8HJAHZlFiv6EuK6 YKUzBIh6GLgiT5TUTDFpWS EoPoU8JYA0SrU4AKa3PIWQ Df5jGPP5WTBfSrFaUKX1TI EzOSBcXHQgMiBcXGYgQXJp YWwgXFxmcyAxMCBcXGZsIF lhzrZ3IYKoLZhnIAZlAlQk N3ZDR3fNII4tJatdQQCwDH qllXlapG6zLFZiQ17bn6SL w1QpAC1WNGw2ikImsidfdJ 0uOKCufvWrFZzvnSAkZ0ym XjAtCeKKcXEtsE9ufzZBAB yjSIPrY8GmzaAiHPknLKRr rk7lkMmqQQajZzGtxDJvAJ dpdGggdGhlIHBhdGllbnRc E5V3gxRaVH5dVYRQZNNfxD 3wRYNsVUIomIQnM6IabQ07 LTR5gF8cVHOwwUwmu3ncNA ZhfI3iUGKaYK8ac85pEdbg fPNnQEDmY1O6FJcHDXUzeh MkW96sl4eafPApl5AdwVKp dGlwbGUgdGFuLXllbGxvdy VdvoAbW4NkRKIjy61unGO9 yJSxyCNmMpTrH06kypCbUD ruNpNmEW8wNXHzGXdzRQoa UJC4TZQ6TVRjdYSus9gcpg aiSL5aTImaOZ21JLltBP3r UERrQBqeNGNbP7TkN5B1UI fbFOEhGJMzaXIrkC7togLj maMtxCn3MRErBMT5oWMoeD faJTRhRfltnRF7GJLxPmVk faNuo0JtnVl6qWCdEQxfEG RmbW9jmW2kTlBkQUlgwqVs SGptnlGmQErpURAoV37uf7 WXl5BzFOMph4ikwKily2Dd dGVuZFxwYXJccGFyZFxzbC 1gPxOua8soiLo5NMrpcjE2 MYRxbh1cfMnovS8oUQr7EO yaMDDcD5YbY8KqPGdcCFW2 MTAwMiBcXGRiICBPVlIgIi JbYYD1TXT9NqE1QXn4OPFW RpRxRlZvFeZdLIO4RfdhAE f2BIu5RAkMGhBdYbV7SCY0 DXJkQUP8RZR0IFdluWUzKS xcZiBBcmlhbCBcXGZzIDEw GXmjSaduXCesZ82lhAndiI 1gMhChUJQYTYESOG9AXlGO XHBhciANClxwbGFpblxlcG ljTmVzdERvYzEgDQpcbHRy cGFyXGxpbjBccmluMCANCl xsdHJjaFxmczIyIFNwZWNp mDTlOTJjbCFlhuCaCKc0JO BaxY7lDz4wzCKcfI3iqHCz PAueBSZtr4b3fFT0bWLldG P7jRItrRplVmZhRQ4mwQJz EGLITJ99iHQpabGiTXIoKD F5vP8eKSAoodOvtJFwcL7u y6gfm2erVfAgT3Y9QHKwIH Ybr84leMU1jhJjVoK7SFOu siMehbJcG9DdMRGik26fgV P1qXJpiTBfXaIuQ17jdgYx UYahApIcVM6iPTDwXYgpOG gfNJU9RGU2RMKdhWYag3mn gdrjDS58VGgjIL1gJRifBJ 5kQZHbBJlbUGFbJ6MdC6Q7 SUplACZnVLKwuEXyaK4jye MjddMksDe6GPRjXVQ4vRSz wOptYQWuAxranUD6QZJwXe LzusNpp0EbeNp6gXUbCJhr MCOdlM9zcD7aAyCmKXirio UgXGxpbmUgSnVsaWUgTWNJ eOusemH4CTZZXLBvNDOQAK kNClxlcGljTmVzdERvYzBc yxF2AUGkuFIpFSR0RR4dEB AraoaoYHZaFGOeXLH7SSzy oR18jTDiDSLkQSBvyQWlwI vbeYLojoYCYldaoY0oAuYe k7iffJd1AGVJMvdqfNNmje ebwbI0BWTkt4ztaNnfz2Sl eAWrIX1ttSxxlB0fKyNsTl ANCn0= Disclaimer (test code = o2gyfICwMQAul7htLLKcaV [id number]) FuZzEwMzNcZnRuYmpcdWMx VUfjmuYgTErjm5YyY6NiAg AwMFxhbnNpXGRlZmxhbmcx LUXfCUW6nfRmLERmMYqrDL CuGUweMj4jnGYxsQvrXsRv VBWbo2dwndRXOKgkVmPuZ1 09LIHxMRgny3ipp7JhVTLv dVHjc6J3WCCDzkjyhTs3mO loR30ip7N8PcduD9lyMWIv JDUsB4RtPB8fXGEkRtz3VC U3DYM4ZVGaMLMbC8WaLB9m OZTjxCWnDWd8t6qxxYnsEY MbIUX6a6olPRlekwTrAS7u rv6afQd8m7wvsgHnFUXpMB VrhIQQSYJaO7YyvOkoOd4a uYy0vMapYccbFYW4Pir6XZ 5twx42mbw2hVhcQBByhgta IvF0FQjdRMMlantdIWe1OP jrAQPnaQV9JWLteCQuS1Ft MZFjAO6toci2NWR7AOksDW QiWtU8LFXfqPWlVOMzuTmo SRvum482XJE6QfJaPQ2vF0 Szt2T1bM4xnFEiCLQfoZRw SzTiKMAcje8rqWXoPYzjx3 ThDRW6phP8pFPjuMHqCMAn FX02Gzhpj9NvPdevn5SoF0 4zkOT8OQkbx4rfWP3zRwB8 jsYvTUglt6ztuZ9kRpS6LP syKZ0wLI2fKVOzlP2gfzlt XHBnYnJkcmhlYWRccGdicm JtIo6jeQpjKBD8ARbfO9km mJ9jGuW2JTviC9ylvN5lJI g2QUxliGE6FTSynO5jNX4w zbxsg4hqHYswWHukTLBoqm M7vxZ9URMdgVVgJ6TtyK9j MGWwNN3jvxuyc6ntVGX7SB gkZQZbZVE3HmWhZUSlx7Ul kpg4JpXdm1KcfJJkDXiwD4 7gm522RMRvtlTrO3ttbHXe dmyokUNmlletYCjpnjG0KV FffdPun8QeZTHfWVP9OKww YTgxzYDaTJUpdGiir5axF2 RscGFyXHBsYWluXGYxXGZz MjBcbGFuZzEwMzNcaGljaF pwSZnsCrUtJPHrBNvmJ8et HiPzZ4GvAJUkVkSalVHnQ2 ggVGhpcyByZXBvcnQgbWF5 ZFsoM1g1MDTnyjXjtGb3db DzGzYnAKLcPTS7DPtdfOLv WACvo2GwtjymhZJcUe1bwJ MnUDWmoS9zMTOcKBUgKLet LF6dsRl4PYFKdFDjgDCbXx UQNLDfIC95wbFwSSZMgecx h1R2QJdrJCAvi9CelXCqJ3 fit6AaWPTor69uNB4yg0X9 x3qwHVO1GU5da9OvNLIeqV WguKHjJFQsr8Kuytqoz6Nx WYXaubSgr9WaTMWkbpJpbJ GeKISlfqVpeg5bnpLoRLYa AZYrB1HeyqgawWlaliUqSY Mqco9nodFnBQB3MCBAHRDl CTWun4IljX2trJOLCQK2wU Pnbu3ryoCZzAUgONQzlz61 IUUbVM9uO1fjTMHcVHZdva QlaARnz8NyHJYmcCO4vVDq YL6DMrJZa10iMVLcTBWKcu DeMVVdeDpgiTN2sfQ8cK0p IChGREEpLlx+IFRoZSBGRE PzNJ5gnrPti7ZlyoKxjTlb SLVsiHGod9XgcCVmp6BltG qyj4YhzBRptGGrWR2bXPIg clxwYXIgVVRNQiBMYWJvcm A2j1JkWPZxEUUuPEG2pKxz yja1ZWIqoD7bYLPkP4diwn zyPHuoWTSem8NddE3uoVWO uBCjk0SunHDhgDHVpLUeIW 7pagBmVOlULAbPRJU0gkSm DZVqx3UhVHjmB9bcW35tcS miaFa0iXJ8PHS8nS3rDtl+ IFxwYXJccGFyIEFwcHJvcH QfTNGppCjbozUlU7LbwpXg yG7vqZUgoqCxDH1uIF7nS5 Z2gHJwJANqzzDwd2bsCCgn dmUgYmVlbiByZXZpZXdlZC Vzh6DcRQzvHIW2PLuqwrZk bmNsdWRpbmcgSCZFLCBTcG JrxRRfKRS0WKmalaAqroAa WS5keX1dwQdchH4tzBKzlL A2pwljASMsLMEwpIcfSVXn JU8nmAOmMRAbitBUlUnlqB RhuJ8wZ5VpLVKrZQQafy4f SVReuV0yMWdkk0ZjykyyDH QsHTKlOYSkjkLrke1wTAFg tBEHGS5UIGsjrHOlh8Zmxg GuL5jULWX0KBVhUbYhKgmy BSBpmIOclEEsQIPutz26GD TjgK5ocLqeRIWheL4myJ5n pXzayW9rYbLjDsDpXZmtLK 6nROFfH1ktaWBtESAyLDOu O2xcCvQyrT9lcWpxTNhlMj OaZtEyLMllLPA1gO== Embedded Images (test code = 8230937517) [facility] Culture - Peripheral # [id number] 20:01:59 Test Item Value Reference Range Interpretation Comments Blood Culture-Aerobic No organisms No growth Previo us (test code = 29489-4) isolated prelim inary verified result was Culture [...] Culture-Anaerobic isolated preliminar y (test code = 39919-2) verifi ed result was Culture In Progress [...] CDT Lab Interpretation Normal (test code = 36909-4) [facility] Culture - Peripheral # [id number] 20:01:59 Test Item Value Reference Range Interpretation Comments Blood Culture-Aerobic No organisms No growth Previo us (test code = 03715-5) isolated prelim inary verified result was Culture [...] Culture-Anaerobic isolated preliminar y (test code = 40543-5) verifi ed result was Culture In Progress [...] CDT Lab Interpretation Normal (test code = 33368-8) [facility] # [id number] 20:01:59 Test Item Value Reference Range Interpretation Comments Blood Culture-Aerobic No organisms No growth Previo us (test code = 86836-1) isolated prelim inary verified result was Culture [...] Culture-Anaerobic isolated preliminar y (test code = 77122-3) verifi ed result was Culture In Progress [...] CDT Lab Interpretation Normal (test code = 03052-2) [facility] # [id number] 20:01:59 Test Item Value Reference Range Interpretation Comments Blood Culture-Aerobic No organisms No growth Previo us (test code = 08612-6) isolated prelim inary verified result was Culture [...] Culture-Anaerobic isolated preliminar y (test code = 84938-9) verifi ed result was Culture In Progress [...] CDT Lab Interpretation Normal (test code = 69856-9) [facility] - TOMORROW AM-0500 Routine 2022-05-13 13:43:26 Test Item Value Reference Range Interpretation Comments ABO & RH (test code O Positive Performe d at [facility] = 20) Laboratory Serv [facility] [place], [place] [phone] Free: [phone] A No. [id number] IAT (test code = Negative Performed a t [facility] 1185) Laboratory Serv [facility] [place] [phone] Free: [phone] A No. [id number] [facility] - TOMORROW AM-0500 Routine 2022-05-13 13:43:26 Test Item Value Reference Range Interpretation Comments ABO & RH (test code O Positive Performe d at [facility] = 20) Laboratory [facility] [place], [place] [phone] Free: [phone] A No. [id number] IAT (test code = Negative Performed a t [facility] 1185) Laboratory Serv [facility] Blood Bank[address] [place] [phone] Free: [phone] A No. [id number] [facility] B12, [id number] 22:16:10 Test Item Value Reference Range Interpretation Comments VIT B12 (test code = 603 pg/mL 240-930 [id number]) ROBERTO (test code = ROBERTO) Biotin has been reported to cause a positive bias, interpret results relative to patient's use of biotin. Lab Interpretation (test Normal code = 70734-3) [facility] B12, [id number] 22:16:10 Test Item Value Reference Range Interpretation Comments VIT B12 (test code = 603 pg/mL 240-930 [id number]) ROBERTO (test code = ROBERTO) Biotin has been reported to cause a positive bias, interpret results relative to patient's use of biotin. Lab Interpretation (test Normal code = 71123-6) [facility] D, [id number] 21:50:29 Test Item Value Reference Range Interpretation Comments VIT D 25OH (test code = 25-80 L 61657-2) ROBERTO (test code = ROBERTO) Deficiency: <20 ng/mLInsufficiency: 20-24 ng/mLOptimal: 25-80 ng/mL Lab Interpretation (test Abnormal code = 69239-9) [facility] D, [id number] 21:50:29 Test Item Value Reference Range Interpretation Comments VIT D 25OH (test code = 25-80 L 87643-4) ROBEROT (test code = ROBERTO) Deficiency: <20 ng/mLInsufficiency: 20-24 ng/mLOptimal: 25-80 ng/mL Lab Interpretation (test Abnormal code = 90031-1) [facility] CampusC-REACTIVE [id number] 18:56:01 Test Item Value Reference Range Interpretation Comments CRP (test code = 0.9 mg/dL See_Comment H [Automated message] [id number]) The system [employer] generated this result transmit eunice reference range : <=0.8. The refe rence range was not u sed to interpret th is result as normal/abnormal . Lab Interpretation (test Abnormal code = 32221-7) [facility]C-REACTIVE [id number] 18:56:01 Test Item Value Reference Range Interpretation Comments CRP (test code = 0.9 mg/dL See_Comment H [Automated message] [id number]) The system [employer] generated this result transmit eunice reference range : <=0.8. The refe rence range was not u sed to interpret th is result as normal/abnormal . Lab Interpretation (test Abnormal code = 17163-7) [facility] CampusTHYROID STIMULATING [id number] 13:43:08 Test Item Value Reference Range Interpretation Comments TSH (test code = See_Comment H [Automated message] [id number]) The system [employer] generated this result transmitted ref erence range: 0.45 - 4 .70 mIU/L. The refe rence range was not u sed to interpret this result as normal/abnor mal. Lab Interpretation (test Abnormal code = 59549-6) [facility] CampusTHYROID STIMULATING [id number] 13:43:08 Test Item Value Reference Range Interpretation Comments TSH (test code = See_Comment H [Automated message] [id number]) The system [employer] generated this result transmitted ref erence range: 0.45 - 4 .70 mIU/L. The refe rence range was not u sed to interpret this result as normal/abnor mal. Lab Interpretation (test Abnormal code = 96751-3) [facility] CampusN-TERMINAL [id number] 13:21:44 Test Item Value Reference Range Interpretation Comments NT-proBNP (test code 54 pg/mL See_Comment [Autom ated = [id number]) message] The system which generated this result transmitted reference range : <=125. The reference range was not used to interpret this result as normal/abnormal . ROBERTO (test code = ROBERTO) Biotin has been reported to cause a negative bias, interpret results relative to patient's use of biotin. Lab Interpretation Normal (test code = 45231-3) [facility]N-[facility]MINAL [id number] 13:21:44 Test Item Value Reference Range Interpretation Comments NT-proBNP (test code 54 pg/mL See_Comment [Autom ated = [id number]) message] The system which generated this result transmitted reference range : <=125. The reference range was not used to interpret this result as normal/abnormal . ROBERTO (test code = ROBERTO) Biotin has been reported to cause a negative bias, interpret results relative to patient's use of biotin. Lab Interpretation Normal (test code = 88001-8) [facility] CampusLIPID PANEL (26741)(TOTAL CHOLESTEROL, TRIGLYCERIDES, HDL)2022-05-12 13:12:48 Test Item Value Reference Range Interpretation Comments CHOL (test code = 124 mg/dL 120-200 [id number]) HDL (test code = 27 mg/dL See_Comment L [Automated message] [id number]) The system [employer] generated this result transmit eunice reference range : >=40. The refer ence range was not u sed to interpret th is result as normal/abnormal . HDLC RATIO (test code = See_Comment [Au tomated message] [id number]) The system [employer] generated this result transmit eunice reference range : <=5.0. The refe rence range was not u sed to interpret th is result as normal/abnormal . TRIG (test code = 104 mg/dL 30-170 9016536059) LDL CHOL (test code = 76 mg/dL See_Comment [Auto mated message] 12458-0) The system [employer] generated this result transmit eunice reference range : <=160. The refe rence range was not u sed to interpret th is result as normal/abnormal . VLDL (test code = 21 mg/dL 5-60 [id number]) Lab Interpretation (test Abnormal code = 61463-5) [facility] CampusLIPID PANEL (36777)(TOTAL CHOLESTEROL, TRIGLYCERIDES, HDL)2022-05-12 13:12:48 Test Item Value Reference Range Interpretation Comments CHOL (test code = 124 mg/dL 120-200 [id number]) HDL (test code = 27 mg/dL See_Comment L [Automated message] [id number]) The system [employer] generated this result transmit eunice reference range : >=40. The refer ence range was not u sed to interpret th is result as normal/abnormal . HDLC RATIO (test code = See_Comment [Au tomated message] [id number]) The system [employer] generated this result transmit eunice reference range : <=5.0. The refe rence range was not u sed to interpret th is result as normal/abnormal . TRIG (test code = 104 mg/dL 30-170 [id number]) LDL CHOL (test code = 76 mg/dL See_Comment [Auto mated message] 21779-4) The system [employer] generated this result transmit eunice reference range : <=160. The refe rence range was not u sed to interpret th is result as normal/abnormal . VLDL (test code = 21 mg/dL 5-60 [id number]) Lab Interpretation (test Abnormal code = 71607-5) [facility]12:47 Test Item Value Reference Range Interpretation Comments MAGNESIUM (test code = 9655675876) 1.8 mg/dL 1.7-2.4 Lab Interpretation (test code = Normal 58218-8) [facility] 13:12:47 Test Item Value Reference Range Interpretation Comments MAGNESIUM (test code = 3290182102) 1.8 mg/dL 1.7-2.4 Lab Interpretation (test code = Normal 36387-9) [facility]. METABOLIC PANEL (25706)2022-05-12 13:12:27 Test Item Value Reference Range Interpretation Comments NA (test code = 139 mmol/L 135-145 [id number]) K (test code = 3.5 mmol/L 3.5-5 1741214809) CL (test code = 106 mmol/L 98-108 0883270843) CO2 TOTAL (test code = 27 mmol/L 23-31 7284657230) AGAP (test code = 2-16 6423228177) BUN (test code = 7 mg/dL 7-23 4216031590) GLUCOSE (test code = 87 mg/dL 70-110 7969979670) CREATININE (test code = 0.89 mg/dL 0.6-1.25 1254775918) TOTAL BILI (test code = 0.3 mg/dL 0.1-1.8 5685653540) CALCIUM (test code = 8.4 mg/dL 8.6-10.6 L [id number]) T PROTEIN (test code = 6.7 g/dL 6.3-8.2 8327807236) ALBUMIN (test code = 3.5 g/dL 3.5-5 4395378252) ALK PHOS (test code = 81 U/L 34-122 9783821808) ALTv (test code = 13 U/L 5-50 1742-6) AST(SGOT) (test code = 22 U/L 13-40 8244689485) eGFR (test code = mL/min/1.73m2 1564434164) ROBERTO (test code = ROBERTO) Association of [...] tests). Lab Interpretation Abnormal (test code = 11086-6) [facility] 13:12:27 Test Item Value Reference Range Interpretation Comments PHOSPHORUS (test code = 8126580006) 3.8 mg/dL 2.5-5 Lab Interpretation (test code = Normal 99852-1) [facility]. METABOLIC PANEL ([id number])2022-05-12 13:12:27 Test Item Value Reference Range Interpretation Comments NA (test code = 139 mmol/L 135-145 8596770614) K (test code = 3.5 mmol/L 3.5-5 7066131589) CL (test code = 106 mmol/L 98-108 3342155715) CO2 TOTAL (test code = 27 mmol/L 23-31 7532540128) AGAP (test code = 2-16 3781894619) BUN (test code = 7 mg/dL 7-23 4548158072) GLUCOSE (test code = 87 mg/dL 70-110 9251267892) CREATININE (test code = 0.89 mg/dL 0.6-1.25 0898142631) TOTAL BILI (test code = 0.3 mg/dL 0.1-1.3 9683837622) CALCIUM (test code = 8.4 mg/dL 8.6-10.6 L 9187953074) T PROTEIN (test code = 6.7 g/dL 6.3-8.2 3150857252) ALBUMIN (test code = 3.5 g/dL 3.5-5 1060046149) ALK PHOS (test code = 81 U/L 34-122 7639277754) ALTv (test code = 13 U/L 5-50 1742-6) AST(SGOT) (test code = 22 U/L 13-40 8969939006) eGFR (test code = mL/min/1.73m2 1044122993) ROBERTO (test code = ROBERTO) Association of [...] tests). Lab Interpretation Abnormal (test code = 43108-8) [facility] 13:12:27 Test Item Value Reference Range Interpretation Comments PHOSPHORUS (test code = 0207816075) 3.8 mg/dL 2.5-5 Lab Interpretation (test code = Normal 49308-1) [facility] WITH [id number] 13:09:25 Test Item Value Reference Range Interpretation [...] RDW-SD (test code = 39.2 fL 38.5-51.6 66033-5) RDW-CV (test code = 14.7 % 12.1-15.4 788-0) PLT (test code = See_Comment H [Automated 777-3) message] The sy stem which generated this result transmitted reference range : 150 - 328 10*3/ ?L. The reference r carlota was not used to interpret this result as normal/abnormal . MPV (test code = 10.1 fL 9.8-13 94747-0) NRBC/100 WBC (test See_Comment [Automat ed code = 9753497291) message] The system which generated this result transmitted reference range : 0.0 - 10.0 /100 WBCs. The refer ence range was not u sed to interpret th is result as normal/abnormal . NRBC x10^3 (test code See_Comment [Auto mated = 1996563024) message] The s ystem which generated this result transmitted reference range : 10*3/?L. The reference range was not used to interpret this result as normal/abnormal . GRAN MAT (NEUT) % 46.1 % (test code = 770-8) IMM GRAN % (test code 0.10 % = 7071205105) LYMPH % (test code = 33.9 % 736-9) MONO % (test code = 11.8 % 5905-5) EOS % (test code = 6.3 % 713-8) BASO % (test code = 1.8 % 706-2) GRAN MAT x10^3(ANC) 3.27 10*3/uL 1.99-6.95 (test code = 1129781872) IMM GRAN x10^3 (test 0-0.06 code = 2211899391) LYMPH x10^3 (test code 2.41 10*3/uL 1.09-3.23 = 731-0) MONO x10^3 (test code 0.84 10*3/uL 0.36-1.02 = 742-7) EOS x10^3 (test code = 0.45 10*3/uL 0.06-0.53 711-2) BASO x10^3 (test code 0.13 10*3/uL 0.01-0.09 H = 704-7) Lab Interpretation Abnormal (test code = 54218-0) [facility] WITH [id number] 13:09:25 Test Item Value Reference Range Interpretation [...] RDW-SD (test code = 39.2 fL 38.5-51.6 18994-7) RDW-CV (test code = 14.7 % 12.1-15.4 788-0) PLT (test code = See_Comment H [Automated 777-3) message] The sy stem which generated this result transmitted reference range : 150 - 328 10*3/ ?L. The reference r carlota was not used to interpret this result as normal/abnormal . MPV (test code = 10.1 fL 9.8-13 94899-3) NRBC/100 WBC (test See_Comment [Automat ed code = 2227665675) message] The system which generated this result transmitted reference range : 0.0 - 10.0 /100 WBCs. The refer ence range was not u sed to interpret th is result as normal/abnormal . NRBC x10^3 (test code See_Comment [Auto mated = 8408949590) message] The s ystem which generated this result transmitted reference range : 10*3/?L. The reference range was not used to interpret this result as normal/abnormal . GRAN MAT (NEUT) % 46.1 % (test code = 770-8) IMM GRAN % (test code 0.10 % = 2061241002) LYMPH % (test code = 33.9 % 736-9) MONO % (test code = 11.8 % 5905-5) EOS % (test code = 6.3 % 713-8) BASO % (test code = 1.8 % 706-2) GRAN MAT x10^3(ANC) 3.27 10*3/uL 1.99-6.95 (test code = 8638744883) IMM GRAN x10^3 (test 0-0.06 code = 1972926805) LYMPH x10^3 (test code 2.41 10*3/uL 1.09-3.23 = 731-0) MONO x10^3 (test code 0.84 10*3/uL 0.36-1.02 = 742-7) EOS x10^3 (test code = 0.45 10*3/uL 0.06-0.53 711-2) BASO x10^3 (test code 0.13 10*3/uL 0.01-0.09 H = 704-7) Lab Interpretation Abnormal (test code = 14199-0) [facility] CampusProth[facility] Time / [id number] 13:06:44 Test Item Value Reference Range Interpretation Comments PROTIME PATIENT (test See_Comment H [Auto mated message] code = 5964-2) The system [employer] generated this result transmitted ref erence range: 12.0 - 1 4.7 Seconds. The reference range was not used to int erpret this result as normal/abnormal . INR (test code = 6301-6) Nor mal INR <1.1; Warfarin Therap eutic range 2.0 to 3. 0 or 2.5 to 3.5, dep ending upon the indica tions. Lab Interpretation (test Abnormal code = 22156-0) [facility] CampusProth[facility]bin Time / [id number] 13:06:44 Test Item Value Reference Range Interpretation Comments PROTIME PATIENT (test See_Comment H [Auto mated message] code = 5964-2) The system [employer] generated this result transmitted ref erence range: 12.0 - 1 4.7 Seconds. The reference range was not used to int erpret this result as normal/abnormal . INR (test code = 6301-6) Nor mal INR <1.1; Warfarin Therap eutic range 2.0 to 3. 0 or 2.5 to 3.5, dep ending upon the indica tions. Lab Interpretation (test Abnormal code = 74871-4) [facility] [id number] 02:59:10 Test Item Value Reference Range Interpretation Comments ESR (test code = See_Comment H [Automated message] 85925-7) The system [employer] generated this result transmitted ref erence range: 0 - 10 m m/HR. The reference r carlota was not used to interpret this result as normal/abnor mal. Lab Interpretation (test Abnormal code = 87884-7) [facility] [id number] 02:59:10 Test Item Value Reference Range Interpretation Comments ESR (test code = See_Comment H [Automated message] 09275-5) The system [employer] generated this result transmitted ref erence range: 0 - 10 m m/HR. The reference r carlota was not used to interpret this result as normal/abnor mal. Lab Interpretation (test Abnormal code = 54832-8) [facility] CampusGLYCOSYLATED HEMOGLOBIN (A1C)2022-05-12 02:20:40 Test Item Value Reference Range Interpretation Comments HGB A1C (test code = 6.1 % 4-5.7 H 4548-4) ROBERTO (test code = ROBERTO) Reference RangesNormal: <5.7%Prediabetes: 5.7 - 6.4%Diabetes: > 6.5% Lab Interpretation (test Abnormal code = 86359-8) [facility]GLYCOSYLATED HEMOGLOBIN (A1C)2022-05-12 02:20:40 Test Item Value Reference Range Interpretation Comments HGB A1C (test code = 6.1 % 4-5.7 H 4548-4) ROBERTO (test code = ROBERTO) Reference RangesNormal: <5.7%Prediabetes: 5.7 - 6.4%Diabetes: > 6.5% Lab Interpretation (test Abnormal code = 82557-1) [facility] CampusCOM. METABOLIC PANEL (94101)2022-05-11 19:45:12 Test Item Value Reference Range Interpretation Comments NA (test code = 139 mmol/L 135-145 7418584351) K (test code = 4.1 mmol/L 3.5-5 0232330458) CL (test code = 105 mmol/L 98-108 9848149073) CO2 TOTAL (test code 24 mmol/L 23-31 = 8032626937) AGAP (test code = 2-16 2932740769) BUN (test code = 8 mg/dL 7-23 4611522446) GLUCOSE (test code = 84 mg/dL 70-110 6839921088) CREATININE (test code 0.93 mg/dL 0.6-1.25 = 2270000722) TOTAL BILI (test code 0.3 mg/dL 0.1-1.1 = 1388349346) CALCIUM (test code = 9.4 mg/dL 8.6-10.6 9850535294) T PROTEIN (test code 7.3 g/dL 6.3-8.2 = 5167525764) ALBUMIN (test code = 4.0 g/dL 3.5-5 3859306072) ALK PHOS (test code = 85 U/L 34-122 4311316282) ALTv (test code = 14 U/L 5-50 2-6) AST(SGOT) (test code 21 U/L 13-40 = 6211198654) eGFR (test code = mL/min/1.73m2 1633277964) ROBERTO (test code = ROBERTO) Association of [...] abnormalities in imaging tests). [facility]. METABOLIC PANEL (49847)2022-05-11 19:45:12 Test Item Value Reference Range Interpretation Comments NA (test code = 139 mmol/L 135-145 2716952266) K (test code = 4.1 mmol/L 3.5-5 9841670952) CL (test code = 105 mmol/L 98-108 5270570798) CO2 TOTAL (test code 24 mmol/L 23-31 = 3171733316) AGAP (test code = 2-16 7522671284) BUN (test code = 8 mg/dL 7-23 4972562425) GLUCOSE (test code = 84 mg/dL 70-110 9891645428) CREATININE (test code 0.93 mg/dL 0.6-1.25 = 5736564334) TOTAL BILI (test code 0.3 mg/dL 0.1-1.1 = 6028886120) CALCIUM (test code = 9.4 mg/dL 8.6-10.6 3849908951) T PROTEIN (test code 7.3 g/dL 6.3-8.2 = 2996633172) ALBUMIN (test code = 4.0 g/dL 3.5-5 7371904220) ALK PHOS (test code = 85 U/L 34-122 1914920600) ALTv (test code = 14 U/L 5-50 1742-6) AST(SGOT) (test code 21 U/L 13-40 = 1402564183) eGFR (test code = mL/min/1.73m2 5407686865) ROBERTO (test code = ROBERTO) Association of [...] or urine or abnormalities in imaging tests). [facility]2022-10-05 19:44:31 Test Item Value Reference Range Interpretation Comments LIPASE (test code = 1290101730) 116 U/L 0-220 Lab Interpretation (test code = Normal 21081-3) [facility]2022-10-05 19:44:31 Test Item Value Reference Range Interpretation Comments LIPASE (test code = 1514671194) 116 U/L 0-220 Lab Interpretation (test code = Normal 38650-7) [facility] CampusCB WITH [id number] 19:33:50 Test Item Value Reference Range Interpretation Comments WBC (test code = See_Comment [Automated 1486-2) message] The sy stem which generated this [...] RDW-SD (test code = 38.9 fL 38.5-51.6 88149-0) RDW-CV (test code = 14.7 % 12.1-15.4 788-0) PLT (test code = See_Comment H [Automated 777-3) message] The sy stem which generated this result transmitted reference range : 150 - 328 10*3/ ?L. The reference r carlota was not used to interpret this result as normal/abnormal . MPV (test code = 10.1 fL 9.8-13 40284-4) NRBC/100 WBC (test See_Comment [Automat ed code = 2441941472) message] The system which generated this result transmitted reference range : 0.0 - 10.0 /100 WBCs. The refer ence range was not u sed to interpret th is result as normal/abnormal . NRBC x10^3 (test code See_Comment [Auto mated = 1239841855) message] The s ystem which generated this result transmitted reference range : 10*3/?L. The reference range was not used to interpret this result as normal/abnormal . GRAN MAT (NEUT) % 50.3 % (test code = 770-8) IMM GRAN % (test code 0.00 % = 9907145993) LYMPH % (test code = 28.7 % 736-9) MONO % (test code = 13.9 % 5905-5) EOS % (test code = 5.3 % 713-8) BASO % (test code = 1.8 % 706-2) GRAN MAT x10^3(ANC) 3.14 10*3/uL 1.99-6.95 (test code = 2488414425) IMM GRAN x10^3 (test 0-0.06 code = 1679355402) LYMPH x10^3 (test code 1.79 10*3/uL 1.09-3.23 = 731-0) MONO x10^3 (test code 0.87 10*3/uL 0.36-1.02 = 742-7) EOS x10^3 (test code = 0.33 10*3/uL 0.06-0.53 711-2) BASO x10^3 (test code 0.11 10*3/uL 0.01-0.09 H = 704-7) Lab Interpretation Abnormal (test code = 70715-6) [facility] WITH [id number] 19:33:50 Test Item Value Reference Range Interpretation Comments WBC (test code = See_Comment [Automated 7990-2) message] The sy stem which generated this result transmitted reference range : 4.20 - 10.70 10*3/?L. The reference range was not used to interpret this result as normal/abnormal . RBC (test code = See_Comment [Automated 679-8) message] The sy stem which generated this [...] RDW-SD (test code = 38.9 fL 38.5-51.6 90542-5) RDW-CV (test code = 14.7 % 12.1-15.4 788-0) PLT (test code = See_Comment H [Automated 777-3) message] The sy stem which generated this result transmitted reference range : 150 - 328 10*3/ ?L. The reference r carlota was not used to interpret this result as normal/abnormal . MPV (test code = 10.1 fL 9.8-13 25473-1) NRBC/100 WBC (test See_Comment [Automat ed code = 7857276165) message] The system which generated this result transmitted reference range : 0.0 - 10.0 /100 WBCs. The refer ence range was not u sed to interpret th is result as normal/abnormal . NRBC x10^3 (test code See_Comment [Auto mated = 6075172922) message] The s ystem which generated this result transmitted reference range : 10*3/?L. The reference range was not used to interpret this result as normal/abnormal . GRAN MAT (NEUT) % 50.3 % (test code = 770-8) IMM GRAN % (test code 0.00 % = 7564991011) LYMPH % (test code = 28.7 % 736-9) MONO % (test code = 13.9 % 5905-5) EOS % (test code = 5.3 % 713-8) BASO % (test code = 1.8 % 706-2) GRAN MAT x10^3(ANC) 3.14 10*3/uL 1.99-6.95 (test code = 3466436545) IMM GRAN x10^3 (test 0-0.06 code = 7582305498) LYMPH x10^3 (test code 1.79 10*3/uL 1.09-3.23 = 731-0) MONO x10^3 (test code 0.87 10*3/uL 0.36-1.02 = 742-7) EOS x10^3 (test code = 0.33 10*3/uL 0.06-0.53 711-2) BASO x10^3 (test code 0.11 10*3/uL 0.01-0.09 H = 704-7) Lab Interpretation Abnormal (test code = 86569-2) [facility] CampusType and Screen - ONCE [id number] 03:41:38 Test Item Value Reference Range Interpretation Comments ABO & RH (test code O Positive Performe d at [facility] = 20) Laboratory Serv ices - [facility] [address] [place] [phone] Free: [phone] A No. [id number] IAT (test code = Negative Performed a t [facility] 1185) Laboratory Serv [facility] Blood [facility] [address] [place] [phone] Free: [phone] A No. [id number] [facility] CampusCOMP. METABOLIC PANEL (23905)2022-05-10 03:15:48 Test Item Value Reference Range Interpretation Comments NA (test code = 135 mmol/L 135-145 4254079407) K (test code = 4.2 mmol/L 3.5-5 6793315004) CL (test code = 104 mmol/L 98-108 2277321804) CO2 TOTAL (test code = 23 mmol/L 23-31 4391190441) AGAP (test code = 2-16 6057529421) BUN (test code = 9 mg/dL 7-23 0220347974) GLUCOSE (test code = 100 mg/dL 70-110 6905976993) CREATININE (test code = 0.89 mg/dL 0.6-1.25 9551831889) TOTAL BILI (test code = 0.3 mg/dL 0.1-1.0 2298236889) CALCIUM (test code = 8.5 mg/dL 8.6-10.6 L 3767915763) T PROTEIN (test code = 6.6 g/dL 6.3-8.2 7811447482) ALBUMIN (test code = 3.6 g/dL 3.5-5 2623888944) ALK PHOS (test code = 80 U/L 34-122 2820376358) ALTv (test code = 13 U/L 5-50 1742-6) AST(SGOT) (test code = 22 U/L 13-40 5373034153) eGFR (test code = mL/min/1.73m2 4252624087) ROBERTO (test code = ROBERTO) Association of [...] tests). Lab Interpretation Abnormal (test code = 04115-7) [facility]2022-[facility] 03:15:08 Test Item Value Reference Range Interpretation Comments LIPASE (test code = 5988526785) 105 U/L 0-220 Lab Interpretation (test code = Normal 73372-0) [facility] WITH [id number] 03:02:08 Test Item Value Reference Range Interpretation Comments WBC (test code = See_Comment [Automated 7269-2) message] The sy stem which generated this result transmitted reference range : 4.20 - 10.70 10*3/?L. The reference range was not used to interpret this result as normal/abnormal . RBC (test code = See_Comment L [Automated 240-5) message] The sy stem which generated this [...] (test code = 38.0 fL 38.5-51.6 L 87759-0) RDW-CV (test code = 14.9 % 12.1-15.4 788-0) PLT (test code = See_Comment H [Automated 777-3) message] The sy stem which generated this result transmitted reference range : 150 - 328 10*3/ ?L. The reference r carlota was not used to interpret this result as normal/abnormal . MPV (test code = 9.8 fL 9.8-13 71963-2) NRBC/100 WBC (test See_Comment [Automat ed code = 3588165404) message] The system which generated this result transmitted reference range : 0.0 - 10.0 /100 WBCs. The refer ence range was not u sed to interpret th is result as normal/abnormal . NRBC x10^3 (test code See_Comment [Auto mated = 5170529393) message] The s ystem which generated this result transmitted reference range : 10*3/?L. The reference range was not used to interpret this result as normal/abnormal . GRAN MAT (NEUT) % 51.8 % (test code = 770-8) IMM GRAN % (test code 0.40 % = 4201763605) LYMPH % (test code = 29.9 % 736-9) MONO % (test code = 10.2 % 5905-5) EOS % (test code = 5.8 % 713-8) BASO % (test code = 1.9 % 706-2) GRAN MAT x10^3(ANC) 4.17 10*3/uL 1.99-6.95 (test code = 4986668238) IMM GRAN x10^3 (test 0.03 10*3/uL 0-0.06 code = 9029254972) LYMPH x10^3 (test code 2.41 10*3/uL 1.09-3.23 = 731-0) MONO x10^3 (test code 0.82 10*3/uL 0.36-1.02 = 742-7) EOS x10^3 (test code = 0.47 10*3/uL 0.06-0.53 711-2) BASO x10^3 (test code 0.15 10*3/uL 0.01-0.09 H = 704-7) Lab Interpretation Abnormal (test code = 49495-1) [facility]-REACTIVE [id number] 14:20:24 Test Item Value Reference Range Interpretation Comments CRP (test code = 1.3 mg/dL See_Comment H [Automated message] 0919246351) The system [employer] generated this result transmit eunice reference range : <=0.8. The refe rence range was not u sed to interpret th is result as normal/abnormal . Lab Interpretation (test Abnormal code = 11977-9) [facility] METABOLIC PANEL (NA, K, CL, CO2, GLUCOSE, BUN, CREATININE, CA)2022-04-28 11:21:59 Test Item Value Reference Range Interpretation Comments NA (test code = 134 mmol/L 135-145 L 1255892127) K (test code = 3.9 mmol/L 3.5-5 5191505807) CL (test code = 105 mmol/L 98-108 1530672828) CO2 TOTAL (test code = 26 mmol/L 23-31 8881190870) AGAP (test code = 2-16 3294833985) BUN (test code = 5 mg/dL 7-23 L 7601968801) GLUCOSE (test code = 76 mg/dL 70-110 3122642049) CREATININE (test code = 0.88 mg/dL 0.6-1.25 6364540356) CALCIUM (test code = 8.2 mg/dL 8.6-10.6 L 4419883599) eGFR (test code = mL/min/1.73m2 1171249997) ROBERTO (test code = ROBERTO) Association of [...] tests). Lab Interpretation Abnormal (test code = 88403-2) [facility] WITH [id number] 11:21:23 Test Item Value Reference Range Interpretation Comments WBC (test code = See_Comment [Automated 7590-2) message] The sy stem which generated this result transmitted reference range : 4.20 - 10.70 10*3/?L. The reference range was not used to interpret this result as normal/abnormal . RBC (test code = See_Comment L [Automated 389-8) message] The sy stem which generated this [...] RDW-SD (test code = 40.4 fL 38.5-51.6 66338-7) RDW-CV (test code = 15.3 % 12.1-15.4 788-0) PLT (test code = See_Comment H [Automated 777-3) message] The sy stem which generated this result transmitted reference range : 150 - 328 10*3/ ?L. The reference r carlota was not used to interpret this result as normal/abnormal . MPV (test code = 9.8 fL 9.8-13 19535-7) NRBC/100 WBC (test See_Comment [Automat ed code = 5357138707) message] The system which generated this result transmitted reference range : 0.0 - 10.0 /100 WBCs. The refer ence range was not u sed to interpret th is result as normal/abnormal . NRBC x10^3 (test code See_Comment [Auto mated = 2377348617) message] The s ystem which generated this result transmitted reference range : 10*3/?L. The reference range was not used to interpret this result as normal/abnormal . GRAN MAT (NEUT) % 51.9 % (test code = 770-8) IMM GRAN % (test code 0.50 % = 7971156508) LYMPH % (test code = 25.7 % 736-9) MONO % (test code = 17.4 % 5905-5) EOS % (test code = 3.2 % 713-8) BASO % (test code = 1.3 % 706-2) GRAN MAT x10^3(ANC) 3.09 10*3/uL 1.99-6.95 (test code = 7412823358) IMM GRAN x10^3 (test 0.03 10*3/uL 0-0.06 code = 4867856099) LYMPH x10^3 (test code 1.53 10*3/uL 1.09-3.23 = 731-0) MONO x10^3 (test code 1.04 10*3/uL 0.36-1.02 H = 742-7) EOS x10^3 (test code = 0.19 10*3/uL 0.06-0.53 711-2) BASO x10^3 (test code 0.08 10*3/uL 0.01-0.09 = 704-7) Lab Interpretation Abnormal (test code = 73884-5) [facility]MAGN[facility]2022-09-22 11:17:00 Test Item Value Reference Range Interpretation Comments MAGNESIUM (test code = 8857894376) 1.7 mg/dL 1.7-2.4 Lab Interpretation (test code = Normal 61357-2) [facility] CampusABORH Confirmation (Lab Only)2022-04-27 17:22:22 Test Item Value Reference Range Interpretation Comments ABO & RH (test code O Positive Performe d at [facility] = 20) Laboratory Serv [facility] [address] [place] [address] Free: [phone] A No. [id number] [facility] CampusType and Screen - ONCE [id number] 16:14:13 Test Item Value Reference Range Interpretation Comments ABO & RH (test code O Positive Performe d at [facility] = 20) Laboratory [facility] Blood [address] [place], [place] [address]Toll Free: [phone] A No. [id number] IAT (test code = Negative Performed a t [facility] 1185) Laboratory [facility] Blood [address] [place], [place] [address]Toll Free: [phone] A No. [id number] [facility] CampusACTIVATED PARTIAL THRMPLAS [id number] 16:10:24 Test Item Value Reference Range Interpretation [...] seconds. Lab Interpretation Normal (test code = 38507-4) [facility] CampusProthrombin Time / [id number] 16:08:28 Test Item Value Reference Range Interpretation [...] tions. Lab Interpretation (test Normal code = 59424-4) [facility] CampusTROPONIN [id number] 15:53:25 Test Item Value Reference Interpretation Comments Range TROPONIN I (test See_Comment [Automated code = 9110584190) message] The system which generated this result [...] biotin. Lab Interpretation Normal (test code = 33825-5) [facility]. METABOLIC PANEL ([id number])2022-04-27 15:42:03 Test Item Value Reference Range Interpretation Comments NA (test code = 139 mmol/L 135-145 8045546035) K (test code = 4.1 mmol/L 3.5-5 6028262071) CL (test code = 105 mmol/L 98-108 9227381670) CO2 TOTAL (test code = 27 mmol/L 23-31 6278669943) AGAP (test code = 2-16 4182858186) BUN (test code = 6 mg/dL 7-23 L 3580245441) GLUCOSE (test code = 96 mg/dL 70-110 7947905397) CREATININE (test code = 0.87 mg/dL 0.6-1.25 3645275189) TOTAL BILI (test code = 0.3 mg/dL 0.1-1.0 5313366822) CALCIUM (test code = 9.1 mg/dL 8.6-10.6 0961591176) T PROTEIN (test code = 6.9 g/dL 6.3-8.2 7215976152) ALBUMIN (test code = 3.6 g/dL 3.5-5 8159520257) ALK PHOS (test code = 89 U/L 34-122 0195606540) ALTv (test code = 12 U/L 5-50 1742-6) AST(SGOT) (test code = 17 U/L 13-40 5633336575) eGFR (test code = mL/min/1.73m2 8946810330) ROBERTO (test code = ROBERTO) Association of [...] tests). Lab Interpretation Abnormal (test code = 06600-8) [facility]42:03 Test Item Value Reference Range Interpretation Comments MAGNESIUM (test code = 2627304944) 1.9 mg/dL 1.7-2.4 Lab Interpretation (test code = Normal 77820-2) [facility] 15:42:03 Test Item Value Reference Range Interpretation Comments LIPASE (test code = [id number]) 115 U/L 0-220 Lab Interpretation (test code = Normal 33277-9) [facility] WITH [id number] 15:32:42 Test Item Value Reference Range Interpretation Comments WBC (test code = See_Comment [Automated 6690-2) message] The sy stem which generated this result transmitted reference range : 4.20 - 10.70 10*3/?L. The reference range was not used to interpret this result as normal/abnormal . RBC (test code = See_Comment [Automated 409-8) message] The sy stem which generated this [...] RDW-SD (test code = 39.8 fL 38.5-51.6 11154-2) RDW-CV (test code = 15.1 % 12.1-15.4 788-0) PLT (test code = See_Comment H [Automated 777-3) message] The sy stem which generated this result transmitted reference range : 150 - 328 10*3/ ?L. The reference r carlota was not used to interpret this result as normal/abnormal . MPV (test code = 9.5 fL 9.8-13 L 23975-0) NRBC/100 WBC (test See_Comment [Automat ed code = 5633127145) message] The system which generated this result transmitted reference range : 0.0 - 10.0 /100 WBCs. The refer ence range was not u sed to interpret th is result as normal/abnormal . NRBC x10^3 (test code See_Comment [Auto mated = 0104944292) message] The s ystem which generated this result transmitted reference range : 10*3/?L. The reference range was not used to interpret this result as normal/abnormal . GRAN MAT (NEUT) % 51.9 % (test code = 770-8) IMM GRAN % (test code 0.30 % = 5682322416) LYMPH % (test code = 31.1 % 736-9) MONO % (test code = 13.0 % 5905-5) EOS % (test code = 2.5 % 713-8) BASO % (test code = 1.2 % 706-2) GRAN MAT x10^3(ANC) 3.35 10*3/uL 1.99-6.95 (test code = 1405660148) IMM GRAN x10^3 (test 0-0.06 code = 9579252298) LYMPH x10^3 (test code 2.01 10*3/uL 1.09-3.23 = 731-0) MONO x10^3 (test code 0.84 10*3/uL 0.36-1.02 = 742-7) EOS x10^3 (test code = 0.16 10*3/uL 0.06-0.53 711-2) BASO x10^3 (test code 0.08 10*3/uL 0.01-0.09 = 704-7) Lab Interpretation Abnormal (test code = 39383-6) [facility] X[facility] CHEST 1 [id number] 08:28:00Patient Name: ALEX BURROUGHS Unit No: [id number] EXAMS: CPT: [id number] XR CHEST 1 V 54198 History: Chest pain CHEST 1 VIEW FINDINGS: [...] NO: N/A Name: ALEX BURROUGHS [facility] Phys: Sky Starks MD [address] : 1975 Age: 44 Sex: [place] [address] Loc: N.ERS Exam Date: 05/23/2019 Status: REG ER PH: FAX: PAGE 1 Signed [id number] 07:18:00 Test Item Value Reference Range Interpretation Comments TROPONIN-I (test code = TROPI) <0.020 ng/mL 0.000-0.034 N BASIC METABOLIC [id number] 07:14:00 Test Item Value Reference Range Interpretation [...] mg/dL 8.5-10.5 N = CA) CBC W/AUTO [id number] 07:10:00 Test Item Value Reference Range Interpretation [...] Date/Time Note Provider Source 2023-01-02 11:33:00-00:00 [facility] ([facility]) EMERGENCY PROVIDER REPORT REPORT#:[id number] REPORT STATUS: Signed DATE:01/02/23 TIME: 1133 PATIENT: ALEX BURROUGHS UNIT #: [id number] ROOM: BED: AGE: 47 SEX: M PCP PHYS: No Primary or Family P hysician SERVICE AUTHOR: Donna Iraheta DO * ALL edits or amendments must be made on the el [employer]/computer document * HPI-Headache Free Text HPI Notes Free Text HPI Notes 47-year-old male with a past medical history of ulcerative colitis presents with complaint of a frontal headache onset 1 week ago with no relief. Patient reports that he has used ove w-aeb-zuobxfm medications Advil and Tylenol without relief. Patient [...] (Auto) (20 - 40 %) 16.2 L Clayton % (Auto) (1 - 10 %) 12.7 H Eos % (Auto) (0.0 - 5.0 %) 1.2 Baso % (Auto) (0.0 - 1.0 %) 1.1 H Neut # (Auto) (1.6 - 7.2 x10 3/uL) 6.5 Lymph # (Auto) (1.1 - 2.7 x10 3/uL) 1.53 Clayton # (Auto) (0.3 - 0.8 x10 3/uL) 1.2 H Eos # (Auto) (0.0 - 0.5 x10 3/uL) 0.1 Baso # (Auto) (0.0 - 0.1 x10 3/uL) 0.1 Immature Gran % (0.0 - 2.0 %) 0.2 Nucleated RBC % (0.0 - 0.9 %) 0.0 Urines Urine Color (YELLOW) YELLOW Urine Appearance (CLEAR) Clear Urine pH (5.0 - 9.0) 5.0 Ur Specific [place] (1.001 - 1.030) 1.032 Urine Protein (NEGATIVE) [...] 01/02 IV 1057 Differential Diagnosis Differential Diagnosis AUTO HAULER tumor, Headache, clus ter, Headache, migraine, Headache, [...] Patient reports that he has used ove p-bso-pepuwys medications Advil and Tylenol without relief. 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 [...] Obey Fernandez MD Follow-Up: 2-3 Days Address: [facility] [place] [address] Departure Forms [facility] PCP LIST WORK/SCHOOL EXCUSE VARIABLE Discharge [...] symptoms should prompt an immediate return to [facility] or the closest emergency department or a call to 1. Electronically Signed by Donna Iraheta DO on at 1925 RPT #:[id number] END OF REPORT 2023-01-02 09:44:00-00:00 [id number] [address] PATIENT NAME: ALEX BURROUGHS ADMIT DATE: 01/02/23 ACCOUNT NO: [id number] ROOM NO: AGE: 47 REPORT TYPE: ELECTROCARDIOGRAM SEX: M ADMITTING PHYSICIAN: ATTENDING PHYSICIAN: Order: [id number] Test Reason : Resting 12-lead ECG Test [...] PATIENT NAME ALEX BURROUGHS 42 2023-01-02 09:08:00-00:00 [facility]) EMERGENCY PROVIDER REPORT REPORT#:[id number] REPORT STATUS: Signed DATE:01/02/23 TIME: 907 PATIENT: ALEX BURROUGHS UNIT #: [id number] ROOM: BED: AGE: 47 SEX: M PCP PHYS: No Primary or Family P hysician SERVICE AUTHOR: Bambi De La Cruz * ALL edits or amendments must be made on the [employer] document * Provider in Triage - Adult [...] John Erickson MD on at 1611 RPT #:[id number] END OF REPORT 2022-12-25 00:50:00-00:00 [id number] [address] PATIENT NAME: ALEX BURROUGHS ADMIT DATE: 11/26/22 ACCOUNT NO: [id number] ROOM NO: N.[facility] AGE: 47 REPORT TYPE: 360 - QUERY RESPONSE DOCUMENT SEX: M ADMITTING PHYSICIAN:Laureano Webster MD ATTENDING PHYSICIAN:Laureano Webster MD Provider Query QUERY TEXT: Clarification Diagnostic Test 360MD Query related questions should be directed to: Kayden kang [facility] Coding Query Helpline Based on your medical [...] 0050 PATIENT NAME ALEX BURROUGHS 2022-11-29 11:48:00-00:00 [facility] ([facility]) Hospitalist D/C Summary REPORT #: [id number] REPORT STATUS: Signed DATE: 11/29/22 TIME: 1148 PATIENT: ALEX BURROUGHS UNIT #: [id number] ROOM #: N.0656 BED: 1 : 77 AGE: 47 SEX: M ATTEND: Faye Webster MD ADM AUTHOR: Ratna Logan ATTENTION *EDITS and/or ADDENDA must be made in Patient Ke eper for this note. * * Edits and ammendments created in [employer] are not visible * * in Patient Keeper or the legal medical record (HPF). * -- CO-SIGNATURE -- COMMENTS: Case discussed with IMMIGRATION INVESTIGATOR. Agree with the findings and plan as [...] Diagnosed 1 year ago with colonoscopy in [facility]. CT scan - Subtle wall thickening/enhancement [...] Up:ADT - Admission Orders Details: Order number: [id number] Category: ADT - Admission Orders Order status: Transmitted Details: Consulting provider 1: UGBST:Obey Fernandez MD Consulting provider 1: . Consult follow up timeframe: In 2-3 weeks Ordered by: Ratna Logan Nov 29, 2022 11:15am Entered by: Ratna Logan Service date: Nov 29, 2022 11:13am PK DISCHARGE ORDERS: Discharge w/Instructions:PKDC - PK DISCHARGE ORD ERS Details: Order number: [id number] Category: PKDC - PK DISCHARGE ORDERS Order status: Transmitted Details: Discharge order: Yes Discharge to: Home/Self Care Diet: Regular Activity: As Tolerated Appropriate for Age Notify PCP of Signs/Symptoms: Moderate/large bleeding Shortness of breath Temp. 101 or greater Additional Discharge Routines: PCP Follow-Up Employee Development Specialist Follow-Up Ordered by: Ratna Logan Nov 29, [...] * * Edits and ammendments created in [facility] are not visible * * in Patient Keeper or the legal medical record (HPF). * [facility] #: [id number] END OF REPORT 2022-11-29 11:32:00-00:00 [facility] ([facility]) Med Order Sheet REPORT #: [id number] REPORT STATUS: Signed DATE: 11/29/22 TIME: 1132 PATIENT: ALEX BURROUGHS UNIT #: [id number] ROOM #: N.0656 BED: 1 : 77 AGE: 47 SEX: M ATTEND: Lopez Webster MD ADM AUTHOR: Ratna Logan ATTENTION *EDITS and/or ADDENDA must be made in Patient [facility] for this note. * * Edits and ammendments created in [employer] are not visible * * in Patient Keeper or the legal medical record ([facility]). * Discharge Medication Reconciliation Hosp: predniSONE Tab (Deltasone Tab) Dose: 10 MG PO ASDIR, Disp: 30 tablet, Refills: 0 - Taper as directed: 4 tabs PO daily x3 days, then 3 tabs PO daily x3 days, then 2 tabs PO daily x3 days, then 1 tab PO daily x3 days at 1132 ATTENTION *EDITS and/or ADDENDA must be made in Patient [facility] for this note. * * Edits and ammendments created in [employer] are not visible * * in Patient Keeper or the legal medical record ([facility]). * RPT #: [id number] END OF REPORT 2022-11-29 11:27:00-00:00 [facility] ([facility]) Med Order Sheet REPORT #: [id number] REPORT STATUS: Signed DATE: 11/29/22 TIME: 1127 PATIENT: ALEX BURROUGHS UNIT #: [id number] ROOM #: N.0656 BED: 1 : 77 AGE: 47 SEX: M ATTEND: Faye Webster MD ADM AUTHOR: Ratna Logan ATTENTION *EDITS and/or ADDENDA must be made in Patient Ke ep for this note. * * Edits and ammendments created in [facility] are not visible * * in Patient [...] methylPREDNISolone Inj (Solu-MEDROL Inj) 6 0MG IV [id number] Signed in PatientKeeper by Ratna kovacs on 11/29/22 11:25 at 1127 ATTENTION *EDITS and/or ADDENDA must be made in Patient [facility] for this note. * * Edits and ammendments created in [facility] are not visible * * in Patient Keeper or the legal medical record ([facility]). * RPT #: [id number] END OF REPORT 2022-11-29 11:15:00-00:00 [facility]) Med Order Sheet REPORT #: [id number] REPORT STATUS: Signed DATE: 11/29/22 TIME: 1115 PATIENT: ALEX BURROUGHS UNIT #: [id number] ROOM #: N.0656 BED: 1 : 77 AGE: 47 SEX: M ATTEND: Faye Webster MD ADM AUTHOR: Ratna Logan ATTENTION *EDITS and/or ADDENDA must be made in Patient Ke eper for this note. * * Edits and ammendments created in [facility] are not visible * * in Patient Keeper or the legal medical record ([facility]). * Discharge Medication Reconciliation DISCHARGE MEDICATION [...] IV Q6H PRN sbp>180Dc'd: HYDROcod/APAP 5/325 Tab ([place] 5/325 Tab) 1TAB P O Q4H PRN [...] and/or ADDENDA must be made in Patient [facility] for this note. * * Edits and ammendments created in [employer] are not visible * * in Patient Keeper or the legal medical record ([facility]). * RPT #: [id number] END OF REPORT 2022-11-28 15:28:00-00:00 [facility] ([facility]) Gastroenterology Prog. Note REPORT #: [id number] REPORT STATUS: Signed DATE: 11/28/22 TIME: 1528 PATIENT: ALEX BURROUGHS UNIT #: [id number] ROOM #: N.0656 BED: 1 : 77 AGE: 47 SEX: M ATTEND: Faye Webster MD ADM AUTHOR: Obey Fernandez MD ATTENTION *EDITS and/or ADDENDA must be made in Patient [facility] for this note. * * Edits and ammendments created in [employer] are not visible * * in Patient Keeper or the legal medical record ([facility]). * -- SUBJECTIVE -- CHIEF COMPLAINT: Interval hx: No new complaints Bleeding has improved and stools are getting mor e formed though still bloody Abdominal pain has improved REASON FOR CONSULTATION: Rectal bleeding. HISTORY OF PRESENT ILLNESS: A 47-year-old with h istory of ulcerative colitis diagnosed last year, who has been medically noncompliant. He has been attending the hospital in [place] and has not established care in our [...] -- MEDICATIONS DEXTROSE 5%-NS 1000 ML IV .[id number] MESALAMINE 800 MG PO TID IPRATROPIUM/ALBUTEROL SULFATE 3 ML NEB RTQ6H PRN HYDROcodone BITARTRATE/APAP 1 TAB PO Q4H PRN methylPREDNISolone SOD SUCC 60 MG IV Q8HR polyethylene glycoL 3350 1 PKT PO DAILY PRN LORazepam 0.5 MG IV Q12H PRN ONDANSETRON HCL/PF 4 MG IV Q4H PRN DEXTROSE 5%-NS 1000 ML IV .[id number] NITROGLYCERIN 0.4 MG SL Q5M PRN guaiFENesin 600 MG PO BID PRN cloNIDine HCL 0.1 MG PO Q6H PRN ZOLPIDEM TARTRATE 10 MG PO BEDTIME PRN SODIUM CHLORIDE 0.9% 1000 ML IV .F21R57V ACETAMINOPHEN 650 MG PO Q4H PRN HYDROmorphone [...] and/or ADDENDA must be made in Patient [facility] for this note. * * Edits and ammendments created in [employer] are not visible * * in Patient Keeper or the legal medical record ([facility]). * RPT #: [id number] END OF REPORT 2022-11-28 11:09:00-00:00 [facility] Hospitalist Progress Note REPORT #: [id number] REPORT STATUS: Signed DATE: 11/28/22 TIME: 1109 PATIENT: ALEX BURROUGHS UNIT #: [id number] ROOM #: N.0656 BED: 1 : 77 AGE: 47 SEX: M ATTEND: Faye Webster MD ADM AUTHOR: Ratna Logan APRNNP ATTENTION *EDITS and/or ADDENDA must be made in Patient [facility] for this note. * * Edits and ammendments created in [employer] are not visible * * in Patient Keeper or the legal medical record ([facility]). * -- CO-SIGNATURE -- COMMENTS: Case discussed with IMMIGRATION INVESTIGATOR. Agree with the findings and plan as documented. Moderate complexity Signed in PatientKeeper by SHANICE THOMAS MD on 11/29/22 at 11:18 -- ASSESSMENT AND PLAN -- ADDITIONAL COMMENTS: PLAN Ulcerative Coliits Flare Rectal bleeding Diagnosed 1 year ago with colonoscopy in [facility]. CT scan - Subtle wall thickening/enhancement [...] -- MEDICATIONS DEXTROSE 5%-NS 1000 ML IV .[id number] MESALAMINE 800 MG PO TID IPRATROPIUM/ALBUTEROL SULFATE 3 ML NEB RTQ6H PRN HYDROcodone BITARTRATE/APAP 1 TAB PO Q4H PRN methylPREDNISolone SOD SUCC 60 MG IV Q8HR polyethylene glycoL 3350 1 PKT PO DAILY PRN LORazepam 0.5 MG IV Q12H PRN ONDANSETRON HCL/PF 4 MG IV Q4H PRN DEXTROSE 5%-NS 1000 ML IV .[id number] NITROGLYCERIN 0.4 MG SL Q5M PRN guaiFENesin 600 MG PO BID PRN cloNIDine HCL 0.1 MG PO Q6H PRN ZOLPIDEM TARTRATE 10 MG PO BEDTIME PRN SODIUM CHLORIDE 0.9% 1000 ML IV .O74I29D ACETAMINOPHEN 650 MG PO Q4H PRN HYDROmorphone [...] * * Edits and ammendments created in [facility] are not visible * * in Patient Keeper or the legal medical record ([facility]). * [facility] #: [id number] END OF REPORT 2022-11-27 11:05:00-00:00 [facility] ([facility]) Hospitalist Progress Note REPORT #: [id number] REPORT STATUS: Signed DATE: 11/27/22 TIME: 110 PATIENT: ALEX BURROUGHS UNIT #: [id number] ROOM #: N.0656 BED: 1 : 77 AGE: 47 SEX: M ATTEND: Faye Webster MD ADM AUTHOR: Sekou Rubi MD ATTENTION *EDITS and/or ADDENDA must be made in Patient Ke eper for this note. * * Edits and ammendments created in [employer] are not visible * * in Patient Keeper or the legal medical record (HPF). * -- ASSESSMENT AND PLAN -- GENERAL ASSESSMENT: Ulcerative Coliits Flare Rectal bleeding Diagnosed 1 year ago with colonoscopy in [facility]. CT scan - Subtle wall thickening/enhancement of the colonic wall, which may reflect sequelae of colitis. No significant cahz colonic inflammation. - Monitor CBC - ESR [...] -- MEDICATIONS DEXTROSE 5%-NS 1000 ML IV .P05F16S MESALAMINE 800 MG PO TID IPRATROPIUM/ALBUTEROL SULFATE 3 ML NEB RTQ6H PRN HYDROcodone BITARTRATE/APAP 1 TAB PO Q4H PRN methylPREDNISolone SOD SUCC 60 MG IV Q8HR polyethylene glycoL 3350 1 PKT PO DAILY PRN LORazepam 0.5 MG IV Q12H PRN ONDANSETRON HCL/PF 4 MG IV Q4H PRN DEXTROSE 5%-NS 1000 ML IV .P26V99Q NITROGLYCERIN 0.4 MG SL Q5M PRN guaiFENesin 600 MG PO BID PRN cloNIDine HCL 0.1 MG PO Q6H PRN ZOLPIDEM TARTRATE 10 MG PO BEDTIME PRN SODIUM CHLORIDE 0.9% 1000 ML IV .J34M77F ACETAMINOPHEN 650 MG PO Q4H PRN HYDROmorphone [...] * * Edits and ammendments created in [facility] are not visible * * in Patient Keeper or the legal medical record (HPF). * [facility] #: [id number] END OF REPORT 2022-11-27 11:05:00-00:00 [facility] ([facility]) Gastroenterology Prog. Note REPORT #: [id number] REPORT STATUS: Signed DATE: 11/27/22 TIME: 1105 PATIENT: ALEX BURROUGHS UNIT #: [id number] ROOM #: N.0656 BED: 1 : 77 AGE: 47 SEX: M ATTEND: Faye Webster MD ADM AUTHOR: Obey Fernandez MD ATTENTION *EDITS and/or ADDENDA must be made in Patient Ke eper for this note. * * Edits and ammendments created in [employer] are not visible * * in Patient Keeper or the legal medical record (HPF). * -- SUBJECTIVE -- CHIEF COMPLAINT: Interval hx: No new complaints REASON FOR CONSULTATION: Rectal bleeding. HISTORY OF PRESENT ILLNESS: A 47-year-old with h istory of ulcerative colitis diagnosed last year, who has been medically noncompliant. He has been attending the hospital in [place] and has not established care in our [...] -- MEDICATIONS DEXTROSE 5%-NS 1000 ML IV .X43V20N MESALAMINE 800 MG PO TID IPRATROPIUM/ALBUTEROL SULFATE 3 ML NEB RTQ6H PRN HYDROcodone BITARTRATE/APAP 1 TAB PO Q4H PRN methylPREDNISolone SOD SUCC 60 MG IV Q8HR polyethylene glycoL 3350 1 PKT PO DAILY PRN LORazepam 0.5 MG IV Q12H PRN ONDANSETRON HCL/PF 4 MG IV Q4H PRN DEXTROSE 5%-NS 1000 ML IV .Z47W09S NITROGLYCERIN 0.4 MG SL Q5M PRN guaiFENesin 600 MG PO BID PRN cloNIDine HCL 0.1 MG PO Q6H PRN ZOLPIDEM TARTRATE 10 MG PO BEDTIME PRN SODIUM CHLORIDE 0.9% 1000 ML IV .X94W61W ACETAMINOPHEN 650 MG PO Q4H PRN HYDROmorphone [...] * * Edits and ammendments created in [facility] are not visible * * in Patient Keeper or the legal medical record (HPF). * [facility] #: [id number] END OF REPORT 2022-11-27 09:53:00-00:00 [facility]) Med Order Sheet REPORT #: [id number] REPORT STATUS: Signed DATE: 11/27/22 TIME: 952 PATIENT: ALEX BURROUGHS UNIT #: [id number] ROOM #: N.0656 BED: 1 : 77 AGE: 47 SEX: M ATTEND: Faye Webster MD ADM AUTHOR: Sekou Rubi MD ATTENTION *EDITS and/or ADDENDA must be made in Patient ep for this note. * * Edits and ammendments created in [facility] are not visible * * in [...] * * Edits and ammendments created in [employer] are not visible * * in Patient Keeper or the legal medical record (HPF). * [facility] #: [id number] END OF REPORT 2022-11-26 15:03:00-00:00 2021-4365 [facility] [address] [place] [address] PATIENT NAME: ALEX BURROUGHS ADMIT DATE: 11/26/22 ACCOUNT NO: [id number] [facility] 47 REPORT TYPE: CONSULTATION SEX: M ADMITTING PHYSICIAN:Laureano Webster MD ATTENDING PHYSICIAN:Laureano Webster MD CONSULTATION DATE: REASON FOR CONSULTATION: Rectal bleeding. HISTORY OF PRESENT ILLNESS: A 47-year-old with h istory of ulcerative colitis diagnosed last year, who has been medically noncompliant. He has been attending the hospital in [place] and has not established care in our [...] Date Transcribed: 11/26/2022 20:08:38 SCU/[place]RI[place] Receipt ID: [id number] Authenticated by Obey Fernandez MD On 11/28 09:44:06 AM at 0944 PATIENT NAME ALEX BURROUGHS 32 2022-11-26 12:44:00-00:00 [facility] REPORT #: [id number] REPORT STATUS: Signed DATE: 11/26/22 TIME: 1244 PATIENT: ALEX BURROUGHS UNIT #: [id number] ROOM #: [facility] BED: 1 : 77 AGE: 47 SEX: M ATTEND: Faye Webster MD ADM AUTHOR: Sekou Rubi MD ATTENTION *EDITS and/or ADDENDA must be made in Patient Ke eper for this note. * * Edits and ammendments created in [employer] are not visible * * in Patient Keeper or the legal medical record ([facility]). * -- ASSESSMENT AND PLAN -- GENERAL ASSESSMENT: Ulcerative Coliits Flare Rectal bleeding Diagnosed 1 year ago with colonoscopy in [facility]. - Monitor CBC - ESR is [...] -- MEDICATIONS DEXTROSE 5%-NS 1000 ML IV .L27V44N IPRATROPIUM/ALBUTEROL SULFATE 3 ML NEB RTQ6H PRN HYDROcodone BITARTRATE/APAP 1 TAB PO Q4H PRN methylPREDNISolone SOD SUCC 60 MG IV Q8HR polyethylene glycoL 3350 1 PKT PO DAILY PRN LORazepam 0.5 MG IV Q12H PRN ONDANSETRON HCL/PF 4 MG IV Q4H PRN DEXTROSE 5%-NS 1000 ML IV .W19P56B NITROGLYCERIN 0.4 MG SL Q5M PRN guaiFENesin 600 MG PO BID PRN cloNIDine HCL 0.1 MG PO Q6H PRN ZOLPIDEM TARTRATE 10 MG PO BEDTIME PRN SODIUM CHLORIDE 0.9% 1000 ML IV .V27H42E ACETAMINOPHEN 650 MG PO Q4H PRN morphine [...] * * Edits and ammendments created in [facility] are not visible * * in Patient Keeper or the legal medical record (HPF). * RPT #: [id number] END OF REPORT 2022-11-25 23:03:00-00:00 [facility] ([facility]) Hospitalist Andreas Farr REPORT #: [id number] REPORT STATUS: Signed DATE: 11/25/22 TIME: 2302 PATIENT: ALEX BURROUGHS UNIT #: [id number] ROOM #: N.ERST BED: 1 : 77 AGE: 47 SEX: M ATTEND: Lopez Webster MD ADM AUTHOR: Laureano Webster MD ATTENTION *EDITS and/or ADDENDA must be made in Patient Ke eper for this note. * * Edits and ammendments created in [employer] are not visible * * in Patient [...] to palpation.diffuse Neurology patient is awake alert Napavine x3 no mo tor or sensory deficit [...] * * Edits and ammendments created in [employer] are not visible * * in Patient Keeper or the legal medical record (HPF). * RPT #: [id number] END OF REPORT 2022-11-25 21:40:00-00:00 [facility] ([facility]) EMERGENCY PROVIDER REPORT REPORT#:[id number] REPORT STATUS: Signed DATE:11/25/22 TIME: 2139 PATIENT: ALEX BURROUGHS UNIT #: [id number] ROOM: [facility] BED: 1 AGE: 47 SEX: [...] % (Auto) (20 - 40 %) 24.5 Clayton % (Auto) (1 - 10 %) 18.4 H Eos % (Auto) (0.0 - 5.0 %) 2.0 Baso % (Auto) (0.0 - 1.0 %) 1.1 H Neut # (Auto) (1.6 - 7.2 x10 3/uL) 5.6 Lymph # (Auto) (1.1 - 2.7 x10 3/uL) 2.58 [place] # (Auto) (0.3 - 0.8 x10 3/uL) 1.9 H Eos # (Auto) (0.0 - 0.5 x10 3/uL) 0.2 Baso # (Auto) (0.0 - 0.1 x10 3/uL) 0.1 Immature Gran % (0.0 - 2.0 %) 0.7 Nucleated RBC % (0.0 - 0.9 %) 0.0 Urines Urine Color (YELLOW) YELLOW Urine Appearance (CLEAR) HAZY Urine pH (5.0 - 9.0) 5.0 Ur Specific [place] (1.001 - 1.030) 1.031 Urine Protein (NEGATIVE) [...] to obs unit. Case di scussed with tire changer aircraft Dr. Parr. Case discussed with hospitalist Dr. [...] Time Status Admin Sodium Chloride 1,000 ML .[id number] 11/25 2314 AC 11/25 IV 12/26 2315 [...] Disposition Decision Admit Admit Physician Name Laureano Webster MD Admit Physician Hospitalist Request Time 2302 [...] over this patient's care. at 0050 RPT #:[id number] END OF REPORT 2022-11-25 21:38:00-00:00 [facility] ([facility]) EMERGENCY PROVIDER REPORT REPORT#:[id number] REPORT STATUS: Signed DATE:11/25/22 TIME: 2137 PATIENT: ALEX BURROUGHS UNIT #: [id number] ROOM: [facility] BED: 1 AGE: 47 SEX: M PCP PHYS: No Primary or Family Ph ysician SERVICE AUTHOR: Jill Cardenas RNNP * ALL edits or amendments must be made on the [employer]/computer document * Provider in Triage - Adult [...] Never Smoker at 2139 at 0944 RPT #:[id number] END OF REPORT 2022-11-21 18:51:00-00:00 [facility] ([facility] EMERGENCY PROVIDER REPORT REPORT#:[id number] REPORT STATUS: Signed DATE:11/21/22 TIME: 1850 PATIENT: ALEX BURROUGHS UNIT #: [id number] ROOM: BED: AGE: 47 SEX: M PCP PHYS: No Primary or Family Ph ysician SERVICE AUTHOR: Dennis Bower II, MD * ALL edits or amendments must be made on the [employer]/computer document * HPI-Abd Pain M 40 and Over Free Text HPI Notes Free Text HPI Notes Patient is a 47-year-old male who presents to [facility] emergency department with lower abdominal pain and [...] (Auto) (20 - 40 %) 18.3 L Clayton % (Auto) (1 - 10 %) 9.5 Eos % (Auto) (0.0 - 5.0 %) 2.4 Baso % (Auto) (0.0 - 1.0 %) 1.2 H Neut # (Auto) (1.6 - 7.2 x10 3/uL) 5.1 Lymph # (Auto) (1.1 - 2.7 x10 3/uL) 1.36 Clayton # (Auto) (0.3 - 0.8 x10 3/uL) 0.7 Eos # (Auto) (0.0 - 0.5 x10 3/uL) 0.2 Baso # (Auto) (0.0 - 0.1 x10 3/uL) 0.1 Immature Gran % (0.0 - 2.0 %) 0.4 Nucleated RBC % (0.0 - 0.9 %) 0.0 Urines Urine Color (YELLOW) YELLOW Urine Appearance (CLEAR) Clear Urine pH (5.0 - 9.0) 7.0 Ur Specific [place] (1.001 - 1.030) 1.027 Urine Protein (NEGATIVE) [...] Report Impression - Status: SIGNED Entered: 11/21/2022 436 IMPRESSION: 1. Subtle wall thickening/enhancement of the [...] if you have any other concerns. Address: [facility] [address] [place] [address] Departure Forms [facility] PCP LIST Discharge Note I have [...] symptoms should prompt an immediate return to [facility] or the closest emergency department or a call to 911. at 0835 RPT #:[id number] END OF REPORT 2022-11-21 14:23:00-00:00 [facility] ([facility]) EMERGENCY PROVIDER REPORT REPORT#:[id number] REPORT STATUS: Signed DATE:11/21/22 TIME: 1422 PATIENT: ALEX BURROUGHS UNIT #: [id number] ROOM: BED: AGE: 47 SEX: M PCP PHYS: No Primary or Family Ph ysician SERVICE AUTHOR: Marvel Guzman * ALL edits or amendments must be made on the el [employer]/computer document * Marvel Guzman 11/21/221422: Provider in [...] Grecia Taylor MD on at 2113 RPT #:[id number] END OF REPORT 2019-05-23 06:41:00-00:00 [id number] [address] PATIENT NAME: ALEX BURROUGHS ADMIT DATE: 05/23/19 ACCOUNT NO: [id number] ROOM NO: AGE: 44 REPORT TYPE: ELECTROCARDIOGRAM SEX: M ADMITTING PHYSICIAN: ATTENDING PHYSICIAN: Order: [id number] Test Reason : Resting 12-lead ECG Test [...] 1137 PATIENT NAME ALEX BURROUGHS 2019-05-23 06:39:00-00:00 [facility] ([facility]) EMERGENCY PROVIDER REPORT REPORT#:[id number] REPORT STATUS: Signed DATE:05/23/19 TIME: 0639 PATIENT: ALEX BURROUGHS UNIT #: [id number] ROOM: BED: AGE: 44 SEX: M PCP PHYS: No Primary or Family Ph ysician SERVICE AUTHOR: Sky Grant * ALL edits or amendments must be made on the el [employer]/computer document * HPI-Chest Pain 40 and Over [...] % (Auto) (20 - 40 %) 30.7 Clayton % (Auto) (1 - 10 %) 10.8 H Eos % (Auto) (1.0 - 5.0 %) 7.1 H Baso % (Auto) (0.0 - 1.0 %) 1.6 H Neut # (Auto) (1.6 - 7.2 x10 3/uL) 3.4 Lymph # (Auto) (1.1 - 2.7 x10 3/uL) 2.10 Clayton # (Auto) (0.3 - 0.8 x10 3/uL) [...] rhythm, No STEMI, Normal intervals Rate 65 Conduction/[place] Left axis deviation Portions of this section [...] symptoms should prompt an immediate return to [facility] or the closest emergency department or a call to [facility]. Supervising Physician Note Scribe Statement Yanet [...] on 05/23/19 at 0754 at 1316 RPT #:[id number] END OF REPORT 2019-05-23 05:55:00-00:00 [id number] [address] PATIENT NAME: ALEX BURROUGHS ADMIT DATE: 05/23/19 ACCOUNT NO: [id number] ROOM NO: AGE: 44 REPORT TYPE: ELECTROCARDIOGRAM SEX: M ADMITTING PHYSICIAN: ATTENDING PHYSICIAN: Order: [id number] Test Reason : Resting 12-lead ECG Test [...]
[2023-04-06] MEDS ORDERED: MORPHINE 4 MG/ML SYR ONE (22:35)
[2023-04-06] MEDS ORDERED: NA CHLORIDE 0.9% 1,000 ML ONE (22:35)
[2023-04-06] MEDS ORDERED: FAMOTIDINE 20 MG/2 ML VIAL IV ONE (22:35)
[2023-04-06] MEDS ORDERED: ONDANSETRON 4 MG/2 ML VIAL ONE (22:35)
[2023-04-06 23:19] LABS: Absolute Lymphocytes (CBC) 1.7 K/uL (0.7-4.9); Hematocrit 39.8 % (39.6-49.0); Lymphocytes % 18.1 % (15.3-44.8); MCV 79.3 fL (80-100); Platelets 309 thou/uL (152-406); RBC Red Blood Cell Count 5.01 M/uL (4.33-5.43)
[2023-04-06 23:29] LABS: Albumin 3.5 g/dL (3.4-5.0); Bilirubin Total 0.3 mg/dL (0.2-1.0); Potassium 3.6 mEq/L (3.5-5.1); Protein, Total 7.3 g/dL (6.4-8.2)
--- NOTE | 2023-04-07 02:25 | ER ---
Nurse's Notes [facility] Name: Wicho Weeks Age: 48 yrs Sex: Male : 1975 Arrival Date: 04/06/2023 Time: 20:33 Bed 8 Private MD: Diagnosis: Left sided colitis with rectal bleeding Presentation: 04/06 20:40 Chief complaint: Patient states: he has been having abdominal pain today, with nausea ap3 and vomiting. patient states that he also feels weak. Coronavirus screen: At this time, the client does not indicate any symptoms associated with coronavirus-19. Ebola Screen: No symptoms or risks identified at this time. Initial Sepsis Screen: Does the patient meet any 2 criteria? No. Patient's initial sepsis screen is negative. Does the patient have a suspected source of infection? No. Patient's initial sepsis screen is negative. Risk Assessment: Do you want to hurt yourself or someone else? Patient reports no desire to harm self or others. Onset of symptoms was April 06, 2023. 20:40 Method Of Arrival: Ambulatory ap3 20:40 Acuity: DRE 3 ap3 Triage Assessment: 20:41 General: Appears in no apparent distress. Behavior is calm, cooperative, appropriate ap3 for age. Pain: Complains of pain in abdomen Pain currently is 6 out of 10 on a pain scale. Neuro: Level of Consciousness is awake, alert, obeys commands, Oriented to person, place, time, situation. Cardiovascular: Patient's skin is warm and dry. Respiratory: Airway is patent Respiratory effort is even, unlabored, Respiratory pattern is regular, symmetrical. GI: Reports lower abdominal pain, upper abdominal pain, diarrhea, nausea. 20:42 Neuro: Reports weakness. ap3 Historical: - Allergies: 20:41 No Known Allergies; ap3 - PMHx: 20:41 Chronic Abdominal Pain; Colitis; GI Bleed; ap3 - Immunization history:: Client reports having NOT received the Covid vaccine. - Social history:: Smoking status: Patient denies any tobacco usage or history of. Screenin:42 [facility] ED Fall Risk Assessment (Adult) History of falling in the last 3 months, ap3 including since admission No falls in past 3 months (0 pts). Abuse screen: Denies threats or abuse. Nutritional screening: No deficits noted. Tuberculosis screening: No symptoms or risk factors identified. Assessment: 21:00 General: Appears in no apparent distress. comfortable, Behavior is calm, cooperative. lg3 Pain: Complains of pain in abdomen. Neuro: No deficits noted. Clemons Agitation-Sedation Scale (RASS): 0 - Alert and Calm Level of Consciousness is awake, alert, obeys commands, Oriented to person, place, time, situation. Cardiovascular: No deficits noted. Denies chest pain, shortness of breath, Capillary refill < 3 seconds Clubbing of nail beds is absent JVD is absent. Respiratory: No deficits noted. Airway is patent Trachea midline Respiratory effort is even, unlabored, Respiratory pattern is regular, symmetrical. GI: No deficits noted. Bowel sounds present X 4 quads. Abd is soft X 4 quads Abdomen is tender to palpation in abdomen diffusely Reports lower abdominal pain, upper abdominal pain, cramping, nausea, vomiting. GI: Reports rectal bleeding. : No deficits noted. No signs and/or symptoms were reported regarding the genitourinary system. EENT: No deficits noted. No signs and/or symptoms were reported regarding the EENT system. Derm: No deficits noted. No signs and/or symptoms reported regarding the dermatologic system. Skin is intact, is healthy with good turgor, Skin is dry, Skin is normal, Skin temperature is warm. Musculoskeletal: No deficits noted. Circulation, motion, and sensation intact. Range of motion: intact in all extremities. 22:00 Reassessment: No changes from previously documented assessment. Patient and/or family vc1 updated on plan of care and expected duration. Pain level reassessed. Patient is alert, oriented x 3, equal unlabored respirations, skin warm/dry/pink. 23:00 Reassessment: No changes from previously documented assessment. Patient and/or family vc1 updated on plan of care and expected duration. Pain level reassessed. Patient is alert, oriented x 3, equal unlabored respirations, skin warm/dry/pink. 04/07 00:00 Reassessment: No changes from previously documented assessment. Patient and/or family vc1 updated on plan of care and expected duration. Pain level reassessed. Patient is alert, oriented x 3, equal unlabored respirations, skin warm/dry/pink. 02:27 General: pt to DC post antibiotic administration. lg3 Vital Signs: 04/06 20:40 Pulse 82; Resp 19; Temp 98.8; Pulse Ox 96% ; Weight 95.25 kg; Pain 6/10; ap3 23:15 BP 133 / 88; Pulse 72; Resp 17 S; Pulse Ox 98% on R/A; lg3 04/07 01:06 BP 149 / 99; Pulse 65; Resp 17; Pulse Ox 97% ; vc1 02:50 BP 116 / 70; Pulse 60; Resp 17; Pulse Ox 100% ; vc1 04/06 20:40 Pain Scale: Adult ap3 ED Course: 04/06 20:36 Patient arrived in ED. kj1 20:41 Triage completed. ap3 20:42 Arm band placed on right wrist. ap3 21:00 Patient has correct armband on for positive identification. Placed in gown. Bed in low lg3 position. Call light in reach. Side rails up X 1. Client placed on continuous cardiac and pulse oximetry monitoring. NIBP monitoring applied. it security specialist on. Door closed. Noise minimized. Warm blanket given. 21:00 Patient maintains SpO2 saturation greater than 95% on room air. lg3 21:04 Bia Finch PA-C is PHCP. sb4 21:04 Alvarez Carlos MD is Attending Physician. sb4 21:45 Missed attempt(s): 22 gauge in right forearm. vc1 21:55 Missed attempt(s): 20 gauge in right antecubital area. Bleeding controlled, band aid vc1 applied, catheter tip intact. 22:10 Missed attempt(s): 20 gauge Bleeding controlled, band aid applied, catheter tip intact. vc1 22:25 No provider procedures requiring assistance completed. Missed attempt(s): 22 gauge in pf1 left antecubital area. Bleeding controlled, band aid applied, catheter tip intact. 22:30 CBC with Diff Sent. pf1 22:30 CMP Sent. pf1 22:30 Lipase Sent. pf1 22:30 Type And Screen Sent. pf1 22:35 Inserted saline lock: 22 gauge in right antecubital area, using aseptic technique. pf1 Blood collected. 22:53 Type And Screen Sent. pf1 22:53 CBC with Diff Sent. pf1 22:53 CMP Sent. pf1 22:53 Lipase Sent. pf1 23:15 Consuelo Cast, RN is Primary Nurse. 3 04/07 01:41 CT Abd/Pelvis - IV Contrast Only In Process Unspecified. EDMS 02:24 Jose Schilling MD is Referral Physician. sb4 03:16 Provided Education on: medications. vc1 03:16 IV discontinued, intact, bleeding controlled, No redness/swelling at site. Pressure vc1 dressing applied. Administered Medications: 04/06 23:08 Drug: NS 0.9% IV 1000 ml Route: IV; Rate: 1 bolus; Site: right antecubital; lg3 04/07 02:25 Follow up: IV Status: Completed infusion; IV Intake: 1000ml lg3 04/06 23:08 Drug: Famotidine IVP 20 mg Route: IVP; Site: right antecubital; lg3 04/07 02:25 Follow up: Response: No adverse reaction lg3 04/06 23:08 Drug: Ondansetron IVP 4 mg Route: IVP; Site: right antecubital; lg3 04/07 02:25 Follow up: Response: No adverse reaction lg3 04/06 23:08 Drug: morphine IVP or IV 4 mg Route: IVP; Infused Over: 4 mins; Site: right antecubital;lg3 04/07 02:26 Follow up: Response: No adverse reaction lg3 02:25 Drug: Ciprofloxacin IVPB 400 mg Volume: 200 ml; Route: IVPB; Infused Over: 60 mins; lg3 Site: right antecubital; 02:25 Drug: metroNIDAZOLE IVPB 500 mg Volume: 100 ml; Route: IVPB; Rate: 200 ml/hr; Infused lg3 Over: 30 mins; Site: right antecubital; 02:25 Drug: MethylPrednisoLONE IVP 125 mg Route: IVP; Site: right antecubital; lg3 02:26 Follow up: Response: No adverse reaction lg3 Medication: 04/06 20:42 VIS not applicable for this client. ap3 Intake: 04/07 02:25 IV: 1000ml; Total: 1000ml. lg3 Outcome: 02:24 Discharge ordered by . sb4 03:15 Discharged to home ambulatory. vc1 03:15 Condition: good 03:15 Discharge instructions given to patient, Instructed on discharge instructions, follow up and referral plans. medication usage, Demonstrated understanding of instructions, follow-up care, medications, Prescriptions given X 2. 03:16 Patient left the ED. vc1 Signatures: Dispatcher [employer] Madyson De Souza RN RN ap3 Demetria Yoo kj1 Consuelo Cast RN RN lg3 Joselin Meier RN RN 1 Bia Finch PA-C PA-C sb4 Venecia Alvarez RN RN pf1 Corrections: (The following items were deleted from the chart) 04/06 20:41 20:41 PSHx: Rectal abscess removal; [email or web address] ap3
--- NOTE | 2023-04-07 02:25 | EDPHYS ---
Physician Documentation [facility] Name: Wicho Weeks Age: 48 yrs Sex: Male : 1975 Arrival Date: 04/06/2023 Time: 20:33 Bed 8 Private MD: ED Physician Alvarez Carlos HPI: 04/07 00:33 This 48 yrs old Male presents to ER via Ambulatory with complaints of sb4 Abdominal Pain. 00:33 The patient presents with abdominal pain that is diffuse. sb4 00:33 Onset: The symptoms/episode began/occurred today. The symptoms do not radiate. sb4 Associated signs and symptoms: Pertinent positives: nausea, vomiting, and diarrhea, blood in stools. Modifying factors: The symptoms are alleviated by nothing, the symptoms are aggravated by food. The patient has experienced similar episodes in the past, chronically. patient states he has been taking mesalamine prescribed by his PCP but he ran out yesterday. he has been taking prednisone in the interim. he is supposed to see GI but has not yet. Historical: - Allergies: 04/06 20:41 No Known Allergies; ap3 - PMHx: 20:41 Chronic Abdominal Pain; Colitis; GI Bleed; ap3 - Immunization history:: Client reports having NOT received the Covid vaccine. - Social history:: Smoking status: Patient denies any tobacco usage or history of. ROS: 04/07 00:33 Constitutional: Negative for fever, chills, and weight loss. sb4 Abdomen/GI: Positive for nausea, vomiting, and diarrhea, rectal bleeding. Neuro: Positive for weakness. All other systems are negative. Exam: 00:33 Constitutional: This is a well developed, well nourished patient who is awake, alert, sb4 and in no acute distress. Head/Face: Normocephalic, atraumatic. Eyes: Extra-ocular motions intact. Periorbital areas with no swelling, redness, or edema. ENT: Mucous membranes moist. Cardiovascular: Regular rate and rhythm with a normal S1 and S2. Respiratory: Lungs have equal breath sounds bilaterally, clear to auscultation and percussion. No rales, rhonchi or wheezes noted. No increased work of breathing, no retractions or nasal flaring. Abdomen/GI: Soft, non-tender, no distension. Skin: Warm, dry with normal turgor. Normal color with no rashes, no lesions, and no evidence of cellulitis. MS/ Extremity: Pulses equal, no cyanosis. Neurovascular intact. Full, normal range of motion. Neuro: Awake and alert, GCS 15, oriented to person, place, time, and situation. Cranial nerves II-XII grossly intact. Motor strength 5/5 in all extremities. Sensory grossly intact. Cerebellar exam normal. Normal gait. Vital Signs: 04/06 20:40 Pulse 82; Resp 19; Temp 98.8; Pulse Ox 96% ; Weight 95.25 kg; Pain 6/10; ap3 23:15 BP 133 / 88; Pulse 72; Resp 17 S; Pulse Ox 98% on R/A; lg3 04/07 01:06 BP 149 / 99; Pulse 65; Resp 17; Pulse Ox 97% ; vc1 02:50 BP 116 / 70; Pulse 60; Resp 17; Pulse Ox 100% ; vc1 04/06 20:40 Pain Scale: Adult ap3 MDM: 04/06 21:04 Patient medically screened. sb4 04/07 00:33 Differential diagnosis: diverticulitis, gastritis, GI Bleed, non-specific abd pain, sb4 Peptic Ulcer Disease. 02:23 Data reviewed: vital signs, nurses notes, lab test result(s), radiologic studies, and sb4 as a result, I will discharge patient. 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 Special discussion: Based on the patient's Hx, exam, and Dx evaluation, there is no indication for emergent surgery or inpatient Tx. It is understood by the patient/guardian that if the Sx's persist or worsen they need to return immediately for re-evaluation. Further emergent ED testing is not indicated at this point in time. I discussed with the patient/guardian in detail the need to arrange with the PCP or specialist further outpatient testing, colonoscopy and EGD. I discussed with the patient their frequent requests for pain medications. Instructions have been given, that in the best interests of the patient, further pain Rx's must come from the patient's PCP or a size painter. Based on the history and exam findings, there is no indication for further emergent testing or inpatient evaluation. I discussed with the patient/guardian the need to see the insulation machine operator for further evaluation of the symptoms. 04/06 21:26 Order name: CBC with Diff; Complete Time: 23:36 4 04/06 21:26 Order name: CMP; Complete Time: 23:36 4 04/06 21:26 Order name: Lipase; Complete Time: 23:36 [facility] 04/06 21:26 Order name: Type And Screen; Complete Time: 01:45 4 04/07 00:24 Order name: CT Abd/Pelvis - IV Contrast Only [facility] 04/06 21:26 Order name: IV Saline Lock; Complete Time: 22:40 [facility] 04/06 21:26 Order name: Labs collected and sent; Complete Time: 22:30 [facility] 04/06 22:42 Order name: Labs - recollect needed; Complete Time: 22:53 pf1 Administered Medications: 04/06 23:08 Drug: NS 0.9% IV 1000 ml Route: IV; Rate: 1 bolus; Site: right antecubital; 3 04/07 02:25 Follow up: IV Status: Completed infusion; IV Intake: 1000ml [facility] 04/06 23:08 Drug: Famotidine IVP 20 mg Route: IVP; Site: right antecubital; 3 04/07 02:25 Follow up: Response: No adverse reaction [facility] 04/06 23:08 Drug: Ondansetron IVP 4 mg Route: IVP; Site: right antecubital; 3 04/07 02:25 Follow up: Response: No adverse reaction [facility] 04/06 23:08 Drug: morphine IVP or IV 4 mg Route: IVP; Infused Over: 4 mins; Site: right antecubital;3 04/07 02:26 Follow up: Response: No adverse reaction 3 02:25 Drug: Ciprofloxacin IVPB 400 mg Volume: 200 ml; Route: IVPB; Infused Over: 60 mins; lg3 Site: right antecubital; 02:25 Drug: metroNIDAZOLE IVPB 500 mg Volume: 100 ml; Route: IVPB; Rate: 200 ml/hr; Infused lg3 Over: 30 mins; Site: right antecubital; 02:25 Drug: MethylPrednisoLONE IVP 125 mg Route: IVP; Site: right antecubital; lg3 02:26 Follow up: Response: No adverse reaction lg3 Disposition: 00:58 Co-signature as Attending Physician, Alvarez Carlos MD I agree with the assessment sp4 and plan of care. I reviewed the patient's care provided by the Advanced Practice Provider and agree with the diagnosis and treatment plan. Disposition Summary: 04/07/23 02:24 Discharge Ordered Location: Home sb4 Problem: an acute exacerbation sb4 Symptoms: have improved sb4 Condition: Stable sb4 Diagnosis - Left sided colitis with rectal bleeding sb4 Followup: sb4 - With: - When: 2 - 3 days - Reason: Further diagnostic work-up, Recheck today's complaints, Re-evaluation by your physician Discharge Instructions: - Discharge Summary Sheet sb4 - Colitis sb4 Forms: - Medication Reconciliation Form sb4 - Thank You Letter sb4 - Antibiotic Education sb4 - Prescription Opioid Use sb4 - Patient Portal Instructions sb4 - Leadership Thank You Letter sb4 Prescriptions: - Flagyl 500 mg Oral Tablet - take 1 tablet by ORAL route every 12 hours for 7 days; 14 tablet; Refills: 0, sb4 Product Selection Permitted - Cipro 500 mg Oral Tablet - take 1 tablet by ORAL route every 12 hours for 7 days; 14 tablet; Refills: 0, sb4 Product Selection Permitted - Prednisone 20 mg Oral Tablet - take 2 tablets by ORAL route once daily for 5 days; 10 tablet; Refills: 0, sb4 Product Selection Permitted Signatures: Dispatcher [employer] Madyson De Souza RN RN ap3 Consuelo Cast RN RN lg3 Bia Finch PA-C PA-C sb4 Venecia Alvarez RN RN pf1 Alvarez Carlos MD MD sp4 Corrections: (The following items were deleted from the chart) 04/06 20:41 20:41 PSHx: Rectal abscess removal; ap3 ap3
[2023-04-07] MEDS ORDERED: CIPROFLOXACIN 400mg IV 400 MG/200 ML BAG IV ONE (02:29)
[2023-04-07] MEDS ORDERED: METRONIDAZOLE 500mg IVPB 500 MG/100 ML BAG IV ONE (02:30)
[2023-04-07] MEDS ORDERED: METHYLPREDNISOLONE 125 MG INJ ONE (02:30)
[2023-04-07 03:21] VITALS: TEMP 98.8
[2023-04-07 03:25] VITALS: BP 116/70; O2SAT 100
--- NOTE | 2023-04-07 18:26 | RAD REPORT ---
EXAM DESCRIPTION: CT - Abdomen Pelvis W Contrast - 04/07/2023 5:24 am CLINICAL HISTORY: 48 years Male abd and rectal pain, vomiting COMPARISON: CT abdomen pelvis 03/23/2023. TECHNIQUE: CT of the abdomen and pelvis with intravenous contrast. All CT scans at this facility use dose modulation, iterative reconstruction, and/or weight based dosi ng when appropriate to reduce radiation dose to as low as reasonably achievable. FINDINGS: Lower thorax: Bibasilar atelectasis. Abdomen: Stomach: Within normal limits Liver: No focal lesions. No intrahepatic ductal distention. Gallbladder: Nondistended Pancreas: Within normal limits Spleen: Within normal limits Right kidney: No hydronephrosis. No focal lesion. Left kidney: No hydronephrosis. No focal lesion. Adrenal glands: Within normal limits Vascular structures: Within normal limits Nodes: No lymphadenopathy by size criteria Pelvis: Small bowel: No significant distention. Appendix: Within normal limits Colon: Segmental wall thickening of the descending colon and rectosigmoid colon. Peritoneum: No free intraperitoneal fluid or air. Bones: No acute bone findings. Bladder: Unremarkable. Reproductive organs: Mild prostatomegaly. IMPRESSION: 1. Segmental wall thickening of the descending colon and rectosigmoid colon, can be se en in setting of colitis/proctitis. 2. Mild prostatomegaly. Correlate with PSA. Electronically signed by: Martha Arreola MD 04/07/2023 1:53 AM CDT Due to temporary technical issues with the PACS/Fluency reporting system, reports are being signed by the in house radiologists without review as a courtesy to insure prompt reporting. The interpreting radiologist is fully responsible for the content of the report.
== END 2023-04-07 03:16 | disposition home or self-care (01) ==
LOC: ER 20:33
DX: K51.511 Left sided colitis with rectal bleeding (principal)
CPT/HCPCS: 36415; 74177; 80053; 83690; 85025; 86850; 86900; 86901; 96361; 96374; 96375; 99285; J0744; J2405; J2930; J7030; Q9967